=== PATIENT | female | born 1940 | race Caucasian/White ===

== ENCOUNTER 2025-03-25 16:44 | Emergency (ER) | payer MEDICARE, SELFPAY ==
[2025-03-25 16:46] VITALS: TEMP 36.9; BMI 34.0
[2025-03-25 16:57] VITALS: BP 127/67; PULSE 120; RESP 18; O2SAT 96
--- NOTE | 2025-03-25 17:16 | RAD_ITS ---
PROCEDURE: ABD DECUB AND/OR ERECT(PORTABLE 03/25/2025 REASON FOR EXAM: CONSTIPATION TECHNIQUE: ABD DECUB AND/OR ERECT(PORTABLE COMPARISON: December 08, 2024 CT FINDINGS: Bowel gas: Nonobstructing nonspecific bowel-gas pattern. [id number] fecal load consistent with constipation. Calcifications: No suspicious calcifications. Bones: Degenerative changes of the lumbar spine. Kyphoplasties cement in L3. Other: Cholecystectomy clips in the gallbladder fossa. Pronounced left convexity scoliosis of the thoracolumbar spine RAD/Abd Decub and/or Erect(Portabl IMPRESSION: Possible fecal impaction in the rectum Reading [facility]
--- NOTE | 2025-03-25 17:17 | EDS_ITS ---
HPI HPI - GI History of Present Illness Chief Complaint: Constipation Narrative Narrative: 84-year-old female presents from [facility] with constipation for the last week or longer. She relates history that she is bed ridden and is taking oxycodone for 2 fractured vertebrae. She usually sits on the bedpan or has bowel movements in her briefs. She states for the last week she has not had a bowel movement or maybe only small hard stool. She is taking oxycodone for pain. Over the last few days she is experienced nausea and vomiting as well. No fevers or chills. She states she feels like she has to have a bowel movement and when she has her the pain it feels like she has to have a bowel movement but is unable to do so. [facility] Medical History History of fractured vertebra Polio Home Medications ?Medication ?Instructions ?Recorded ?Last Taken ?Type B Complete 1 tab PO DAILY 03/10/14 Unkn own History Prednisol 1% 1 drp DAILY PRN 03/10/14 Unk nown History calcium 600 mg (as 1 ea PO BID 03/10/14 Unknown History carbonate)-vitamin D3 10 mcg (400 unit) tablet (Calcium 600 + D(3)) ciclopirox 0.77 % topical gel g TP BID 03/10/14 Unknow n History (Loprox) ergocalciferol (vitamin D2) 50 mcg 50,000 unit PO QWEE K 03/10/14 Unknown History (2,000 unit) tablet fluoxetine 20 mg tablet (Sarafem) 20 mg PO DAILY 03/10 Unknown History metronidazole 0.75 % (37.5 mg/5 0 g vaginal BID Unknown History gram) vaginal gel (Vandazole) nystatin-triamcinolone 100,000 0 g TP BID 03/10/14 Unk nown History unit/g-0.1 % topical cream omeprazole 20 mg capsule,delayed 20 mg PO DAILY Unknown History release oxybutynin chloride 5 mg tablet 10 mg PO DAILY 4 Unknown History timolol maleate 0.5 % eye drops 1 drp DAILY 03/10/14 U nknown History travoprost 0.004 % eye drops 1 drp DAILY 03/10/14 Unkn own History (Travatan Z) oxycodone 5 mg tablet 5 mg PO BID pain 30 days #60 tabs 03/01/25 Unknown Rx oxycodone 5 mg tablet 5 mg PO Q6H PRN pain 30 days #120 03/07/25 Unknown Rx tabs Allergy/AdvReac Type Severity Reaction Status Date / Time cephalexin monohydrate (From AdvReac Diarrhea Verified 03/10/14 18:10 Keflex) BLOOD THINNERS AdvReac Other Uncoded 03/10/14 18:10 Social History Smoking Status: Unknown if ever smoked ROS ROS ED ROS Narrative Review of systems positive for diffuse abdominal pain and constipation. Few days ago had nausea and vomiting. No fevers or chills. There are no exacerbating or alleviating factors. EXAM Physical Exam Narrative Exam Narrative: Afebrile. Vital signs noted. Nontoxic-appearing. Cardiovascular examination reveals regular rate and rhythm with intermittent tachycardia. Lungs clear to auscultation bilaterally. Abdomen soft with minimal diffuse tenderness with positive bowel sounds. 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 Const Vital Signs: 03/25/25 16:46 03/25/25 16:57 Temperature 98.5 F Temperature Source Oral Pulse Rate 120 H Respiratory Rate 18 Blood Pressure 127/67 H Blood Pressure Mean 87 Pulse Ox 96 Oxygen Delivery Method Room Air MDM MDM MDM Narrative Medical decision making narrative: Differential diagnosis includes but not limited to constipation versus fecal impaction versus bowel obstruction. I have lower suspicion for bowel obstruction. She still feels as if she has to have a bowel movement. X-rays will be obtained and chaperoned rectal examination performed. On my independent interpretation of the x-rays of the abdomen, there is a nonobstructive pattern and probable fecal impaction. I reviewed the radiology report which confirms my independent interpretation. Chaperoned rectal examination did show hard stool which was removed with digital disimpaction. Patient tolerated procedure well. The hard stool was evacuated from the rectum is much as the fingers length would allow. At this point in time, she states she is already on senna but takes MiraLAX sporadically. She was told to take it more consistently at least once to twice a day. I feel she can be discharged to follow-up. Return instructions to the emergency department were reviewed. Disposition is discharged home in stable condition. History & Record Review Discussion w/independent historian: Patient Radiography Diagnostic Testing: Clinical Impression(s) from Imaging Studies Abdomen X-Ray 03/25/25 17:16 IMPRESSION: Possible fecal impaction in the rectum Reading Location: [facility] Discharge Plan Triage Chief Complaint: Constipation ED Provider: Vicente Leon Dx/Rx/DC Orders Clinical Impression: Fecal impaction in rectum, Constipation Instructions: ED Constipation (Adult), ED Fecal Impaction, Treated Prescriptions: No Action B Complete 1 tab PO DAILY metronidazole [Vandazole] 70 GM gel 0 g vaginal BID travoprost [Travatan Z] 1 DROP bottle 1 drp Left Eye DAILY fluoxetine [Sarafem] 20 MG tablet 20 mg PO DAILY nystatin-triamcinolone 30 GM cream 0 g TP BID omeprazole 20 MG capsule 20 mg PO DAILY timolol maleate 1 DROP drops 1 drp Left Eye DAILY oxybutynin chloride 5 MG tablet 10 mg PO DAILY ciclopirox [Loprox] 100 GM gel TP BID calcium carbonate-vitamin D3 [Calcium 600 + D(3)] 1 EACH tablet 1 ea PO BID ergocalciferol (vitamin D2) 2,000 UNIT tablet 50,000 unit PO QWEEK Prednisol 1% 1 drp Left Eye DAILY PRN oxycodone 5 mg tablet 5 mg PO BID 30 Days Qty: 60 0RF Rx Instructions: 8am and 9pm. oxycodone 5 mg tablet 5 mg PO Q6H PRN (Reason: pain) 30 Days Qty: 120 0RF Primary Care Provider: Chey Kumar Referrals: Chey Kumar MD [Primary Care Provider] - 1-2 Days if not improving Activity Restrictions/Additional Instructions: Take MiraLAX consistently once or twice a day. Continue your senna. Print Language: Belarusian Disposition Disposition: Home, Self Care
--- OUTSIDE RECORDS SUMMARY | 2025-03-25 18:50 | XMS RPT_ITS | CCD ---
Author Organization [facility] Care Team Providers Care Crimp Setter Name Role Phone PROVIDER, UNKNOWN Unavailable Unavailable PROVIDER, UNKNOWN Unavailable Unavailable PROVIDER, UNKNOWN Unavailable Unavailable PROVIDER, UNKNOWN Unavailable Unavailable PROVIDER, UNKNOWN Unavailable Unavailable PROVIDER, UNKNOWN Unavailable Unavailable PROVIDER, UNKNOWN Unavailable Unavailable PROVIDER, UNKNOWN Unavailable Unavailable PROVIDER, UNKNOWN Unavailable Unavailable BYO MARBELLA Admitting Unavailable MAEVE BRUNSONZOOR Attending Unavailable Jaime Guy Primary Care Unavailable Sahra Guy MD Primary Care Provider Sahra Guy MD Primary Care Provider Sahra Guy MD Primary Care Provider Sahra Guy MD Primary Care Provider Sahra Guy MD Primary Care Provider Sahra Guy Primary Care Provider Mel PATTON.ANTONY, Leonid Unavailable SAHRA GUY Attending Unavailable SAHRA GUY Referring Unavailable SAHRA GUY Primary Care Unavailable MARLEYLEONID APPIAH Attending Unavailable MARLEYLEONID APPIAH Referring Unavailable SAHRA GUY Primary Care Unavailable SAHRA GUY Primary Care Unavailable MORIAH LOPEZ Attending Unavailable THUESTAShyanne, GEORGINA A Admitting Unavailable DIANE WILSON Attending Unavailable ZAYNAB VALENCIA Admitting Unavailable SAHRA GUY Primary Care Unavailable Chey Kumar MD Attending Provider Unavailurban Kumar MD, Dr. Guerrier Attending Provider Valerie GUTIERREZ-Roxanne Singh Attending Provider Oleghe MD, Efewongbe Referring Provider Unavaila ble Oleghe OLS, Efewongbe Attending Unavailabl e Oleghe OLS, Efewongbe Attending Unavailabl e Oleghe OLS, Efewongbe Attending Unavailabl e Oleghe OLS, Efewongbe Attending Unavailabl e Oleghe OLS, Efewongbe Attending Unavailabl e Oleghe OLS, Efewongbe Attending Unavailabl e Oleghe OLS, Efewongbe Attending Unavailabl e Oleghe OLS, Efewongbe Referring Unavailabl e Oleghe OLS, Efewongbe Attending Unavailabl e Oleghe OLS, Efewongbe Attending Unavailabl e Oleghe OLS, Efewongbe Attending Unavailabl e Tickton LENS GRINDING MACHINE OPERATOR, Roxanne Attending Unavailable Oleghe OLS, Efewongbe Referring Unavailabl e Oleghe OLS, Efewongbe Attending Unavailabl e Oleghe OLS, Efewongbe Attending Unavailabl e Oleghe OLS, Efewongbe Attending Unavailabl e Oleghe OLS, Efewongbe Attending Unavailabl e Oleghe, Efewongbe Attending Unavailable Tickton LENS GRINDING MACHINE OPERATOR, Roxanne Attending Unavailable Tickton LENS GRINDING MACHINE OPERATOR, Roxanne Attending Unavailable Oleghe, Efcarmenongbe Attending Unavailable Tickton LENS GRINDING MACHINE OPERATOR, Roxanne Attending Unavailable Tickton LENS GRINDING MACHINE OPERATOR, Roxanne Attending Unavailable Tickton LENS GRINDING MACHINE OPERATOR, Roxanne Attending Unavailable SAHRA GUY Primary Care Unavailable SAHRA GUY Attending Unavailable SAHRA GUY Attending Unavailable SAHRA GUY Primary Care Unavailable LEONID LEAL Attending Unavailable SAHRA GUY Primary Care Unavailable SAHRA GUY Primary Care Unavailable NARCISO SHERMAN Attending Unavailable Allergies Allergy Classification Reported Allergen(s) Allergy Type Date of Onset Reaction(s) Facility (20 sources) Cephalexin; Translations: [CEPHALEXIN] Drug Allergy 5 Diarrhea, GI Upset [facility] Repository (20 sources) Ibuprofen; Translations: [IBUPROFEN] Drug Allergy 5 Intolerance [facility] Repository (20 sources) rofecoxib; Translations: [ROFECOXIB] Drug Allergy 5 Intolerance [facility] Repository (20 sources) Salicylic Acid; Translations: [SALICYLATES] Drug Allergy 5 Intolerance [facility] Repository (1 source) OTHER; Translations: [OTHER] Propensity to adverse reactions (disorder) [facility] Repository (20 sources) OMEGA-3 FATTY ACIDS-VITAMIN E; Translations: [OMEGA-3 FATTY ACIDS-VITAMIN E] Propensity to adverse reactions (disorder) 7 Intolerance [facility] Repository (20 sources) novacaine [Other] Propensity to adverse reactions 5 Intolerance [facility] (20 sources) Procaine; Translations: [PROCAINE HCL] Drug Allergy 4 Intolerance [facility] Work Phone: (7 sources) NSAIDs; Translations: [NSAIDS (NON-STEROIDAL ANTI-INFLAMMATO RY DRUG)] Propensity to adverse reactions to drug 5 Unknown [facility] (9 sources) Cephalexin; Translations: [cephalexin monohydrate] Drug Allergy 4 Diarrhea [facility] (9 sources) BLOOD THINNERS; Translations: [BLOOD THINNERS] Propensity to adverse reactions 4 Other [facility] Comment on above: BLOOD FROM EYE Medications Current Medications Medication Drug Class(es) Dates Sig (Normalized) Sig (Original) amLODIPine 5 mg oral tablet (6 sources) Dihydropyridine Calcium Channel Susan Start: 12-10-2024 take 1 tablet by mouth twice daily amLODIPine (NORVASC) 5 mg tablet Take 1 tablet by mouth two times a day. 60 tablet 12/10/2024 Active atropine sulfate 10 mg/ml ophthalmic solution (20 sources) Anticholinergic, Cholinergic Muscarinic Antagonist Start: 01-12-2023 take 1 drop(s) into the eye(s) twice daily atropine 1 % ophthalmic solution Use 1 drop in the left eye two times a day. 01/12/2023 Active Start: 01-12-2023 atropine 1 % o phthalmic solution 01/12/2023 Active B Complete (8 sources) Start: 03-10-2014 B Complete Act marlena 1 {tbl} PO DAILY March 10, 2014 12:00am Biotin (20 sources) take 1 capsule by mo uth once daily BIOTIN ORAL Take 1 capsule by mouth once daily. Suspended take 1 capsule by mouth once gabriel ly BIOTIN ORAL Take 1 capsule by mouth once daily. Active take 1 capsule by mouth once gabriel ly BIOTIN ORAL Take 1 capsule by mouth once daily. 0 Active Comment on above: Take 1 capsule by [facility] once daily. brimonidine tartrate 2 mg/ml ophthalmic solution (20 sources) alpha-Adrenergic Agonist Start: 09-19-2023 take 1 drop(s) into the eye(s) twice daily brimonidine (ALPHAGAN) 0.2 % ophthalmic solution Use 1 drop in the left eye two times a day. 09/19/2023 Active Start: 09-19-2023 brimonidine (A LPHAGAN P) 0.1 % drop 09/19/2023 Active Calcium Carbonate (20 sources) calcium carbonat e (CALCIUM 500 ORAL) Take by mouth every other day. Suspended calcium carbonat e (CALCIUM 500 ORAL) Take by mouth every other day. Active calcium carbonat e (CALCIUM 500 ORAL) Take by mouth every other day. 0 Active Comment on above: Take by mouth every other day. calcium carbonate 1500 mg / cholecalciferol 0.01 mg oral tablet (8 sources) Vitamin D Start: 4 Calcium Carbonate-Vitamin D3 (Calcium 600 + Vit D Tablet) 1 EACH tablet Active 1 NMA PO TWICE A DAY March 10, 2014 12:00am cholecalciferol 0.05 mg oral capsule (6 sources) Vitamin D take 1 capsule by mouth once daily Cholecalciferol, Vitamin D3, (VITAMIN D-3) 50 mcg (2,000 unit) cap Take 1 capsule by mouth once daily. Active ciclopirox 0.0077 mg/mg topical gel (8 sources) Start: 4 Ciclopirox (Loprox) 100 GM gel Active g TP TWICE A DAY March 10, 2014 12:00am COMPRESSION HOSIERY KNEE LENGTH, AD, 18-30 MMHG (20 sources) Start: 2 End: 3 COMPRESSION HOSIERY KNEE LENGTH, AD, 18-30 MMHG once daily. Right side 1 Each 0 09/19/2021 09/19/2022 Active Comment on above: once daily. Right si de CPAP (20 sources) Start: 8 CPAP Indications: Obstructive sleep apnea on CPAP BipaP @ 14/9 cm of water with humidification, removable water dispenser (for cleaning) . Mask (small/ per patient preference) , filters, tubing, humidifier and lifetime supplies. (G47.33, Z99.89) Obstructive sleep apnea on CPAP 1 Device 03/03/2018 Suspended Start: 03-03-2018 CPAP Indicatio ns: Obstructive sleep apnea on CPAP BipaP @ 14/9 cm of water with humidification, removable water dispenser (for cleaning) . Mask (small/ per patient preference) , filters, tubing, humidifier and lifetime supplies. (G47.33, Z99.89) Obstructive sleep apnea on CPAP 1 Device 03/03/2018 Active Start: 03-03-2018 CPAP Indicatio ns: Obstructive sleep apnea on CPAP BipaP @ 14/9 cm of water with humidification, removable water dispenser (for cleaning) . Mask (small/ per patient preference) , filters, tubing, humidifier and lifetime supplies. (G47.33, Z99.89) Obstructive sleep apnea on CPAP 1 Device 0 03/03/2018 Active Comment on above: BipaP @ 14/9 cm of w ater with humidification, removable water dispenser (for cleaning) . Mask (small/ per patient preference) , filters, tubing, humidifier and lifetime supplies. (G47.33, Z99.89) Obstructive sleep apnea on CPAP cyclobenzaprine hydrochloride 5 mg oral tablet (7 sources) Muscle Relaxant Start: 025 take 1 tablet by mouth every twelve hours as needed cyclobenzaprine (FLEXERIL) 5 mg tablet Take 1 tablet by mouth two times a day as needed. 15 tablet 12/10/2024 Active cyclopentolate hydrochloride 10 mg/ml ophthalmic solution (20 sources) Start: 017 take 1 drop(s) into the eye(s) twice daily cyclopentolate (CYCLOGYL) 1 % ophthalmic solution Use 1 Drop in the left eye two times a day. 07/31/2017 Active Start: 07-31-2017 take 1 drop(s) into the eye(s) twice daily cyclopentolate (CYCLOGYL) 1 % ophthalmic solution Use 1 Drop in the left eye twice daily. 0 07/31/2017 Active Comment on above: Use 1 Drop in the le ft eye twice daily. dextran 70 1 mg/ml / hypromellose 3 mg/ml ophthalmic solution (6 sources) Plasma Volume Prison Keeper dextran 70-hypromellose (ARTIFICIAL TEARS,[id number],) 0.1-0.3 % ophthalmic solution Use 1 drop in both eyes two times a day. Active docusate sodium 50 mg / sennosides, intermediate 8.6 mg oral tablet (6 sources) Start: 12-20-19 End: 03-19-20 take 2 tablets by mouth twice daily senna-docusate (SENNA-S) 8.6-50 mg per tablet Take 2 tablets by mouth two times a day. 360 tablet 12/19/2024 03/19/2025 Active ergocalciferol 0.05 mg oral tablet (8 sources) Provitamin D2 Compound Start: 03-10-20 Ergocalciferol (Vitamin D2) 2,000 UNIT tablet Active 52825 U PO EVERY WEEK March 10, 2014 12:00am ergocalciferol, vitamin D2, (VITAMIN D2 ORAL) (20 sources) take 1 tablet by mouth once daily ergocalciferol, vitamin D2, (VITAMIN D2 ORAL) Take 1 tablet by mouth once daily. Suspended take 1 tablet by mouth once nicole y ergocalciferol, vitamin D2, (VITAMIN D2 ORAL) Take 1 tablet by mouth once daily. Active take 1 tablet by mouth once nicole y ergocalciferol, vitamin D2, (VITAMIN D2 ORAL) Take 1 tablet by mouth once daily. 0 Active Comment on above: Take 1 tablet by nemesio th once daily. esomeprazole 40 mg delayed release oral capsule (20 sources) Proton Pump Inhibitor Start: 08-23-2024 esomeprazole (NEXIUM) 40 mg capsule TAKE 1 CAPSULE DAILY BEFOREBREAKFAST. 1/2 HOUR BEFORE A MEAL 90 capsule 2 08/23/2024 Active Start: 07-20-2023 End: 07-05-2024 esomeprazole (NEXIUM) 40 mg capsule TAKE 1 CAPSULE DAILY BEFOREBREAKFAST. 1/2 HOUR BEFORE A MEAL 90 capsule 2 08/23/2024 Active Start: 05-30-2021 End: 08-05-2022 esomeprazole (NEXIUM) 40 mg capsule TAKE 1 CAPSULE DAILY BEFOREBREAKFAST. 1/2 HOUR BEFORE A MEAL 90 capsule 3 08/05/2022 Active Comment on above: TAKE 1 CAPSULE DAILY BEFOREBREAKFAST 1/2 HOUR BEFORE AMEAL TAKE 1 CAPSULE DAILY BEFOREBREAKFAST. 1/2 HOUR BEFORE A MEAL ferrous sulfate 325 mg oral tablet (20 sources) take 1 tablet by mouth every other day ferrous sulfate 325 mg (65 mg iron) tablet Take 325 mg by mouth every other day. Active take 1 tablet by nemesio th once daily at breakfast ferrous sulfate 325 mg (65 mg iron) tabl et Take 325 mg by mouth daily with breakfast. 0 Active Comment on above: Take 325 mg by mouth daily with breakfast. Take 325 mg by mouth every other day. FLUoxetine 20 mg oral tablet (8 sources) Serotonin Reuptake Inhibitor Start: 4 take 1 tablet by mouth once daily Fluoxetine (Sarafem) 20 MG tablet Active 20 mg PO DAILY March 10, 2014 12:00am [id number]- C-lety-bosw (OSTEO BI-FLEX TRIPLE STRENGTH) 750 mg-644 mg- 30 mg-1 mg tab (6 sources) take 1 tablet by mouth once daily [id number]- C-lety-bosw (OSTEO BI-FLEX TRIPLE STRENGTH) 750 mg-644 mg- 30 mg-1 mg tab Take 1 tablet by mouth once daily. Active lactulose 667 mg/ml oral solution (1 source) Osmotic Laxative Start: 5 End: 5 take 60 mL by mouth every four hours lactulose 20 gram/30 mL solution Take 60 mL by mouth every 4 hours while awake. 7200 mL 12/19/2024 01/18/2025 Active lidocaine 0.05 mg/mg medicated patch (18 sources) Antiarrhythmic, Amide Local Anesthetic Start: 5 apply 1 dose transdermal route once daily lidocaine (LIDODERM) 5 % Indications: Back pain, unspecified back location, unspecified back pain laterality, unspecified chronicity Apply 1 patch as directed once daily. REMOVE AFTER 12 HOURS. 30 patch 2 12/07/2024 Active Start: 12-06-2024 End: 12-07-2024 apply 60 doses transdermal route once daily lidocaine HCL 4 % ptmd Apply to painful area once daily, remove after 12 hours 60 patch 1 12/06/2024 12/07/2024 Discontinued (Not on Formulary) lidocaine (ASPER FLEX, LIDOCAINE,) 4 % patch Apply 1 application as directed once daily. Apply to lower back, on for twelve hours, off for twelve hours. Active loratadine 10 mg oral tablet (20 sources) take 10 mg by mouth once daily loratadine (CLARITIN ORAL) Take 10 mg by mouth once daily. Active loratadine (CLAR ITIN ORAL) Take by mouth. Suspended loratadine (CLAR ITIN ORAL) Take by mouth. Active loratadine (CLAR ITIN ORAL) Take by mouth. 0 Active metFORMIN hydrochloride 500 mg oral tablet (20 sources) Biguanide Start: 03-10-2023 End: 08-23-2024 take 1 tablet by mouth once daily at breakfast metFORMIN (GLUCOPHAGE) 500 mg tablet Indications: Obesity, Class III, 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) , Hyperglycemia Take 1 tablet by mouth daily with breakfast. 90 tablet 3 08/23/2024 Active Comment on above: Take 1 tablet by nemesio th daily with breakfast. metroNIDAZOLE 0.0075 mg/mg topical gel (20 sources) Nitroimidazole Antimicrobial Start: 07-30-2021 End: 01-25-2024 metroNIDAZOLE (METROGEL) 0.75 % Topical Gel APPLY 1 APPLICATION TO AFFECTED AREA ONCE DAILY TOFACE 135 g 3 01/25/2024 Active Start: 03-10-2014 Metronidazole (Metrogel Vaginal) 70 GM gel Active 0 g VAGINAL TWICE A DAY March 10, 2014 12:00am Comment on above: APPLY 1 APPLICATION TO AFFECTED AREA ONCE DAILY TOFACE miconazole nitrate 20 mg/ml vaginal cream (20 sources) Azole Antifungal Start: 11-01-2019 miconazole (MONISTAT 7) 2 % vaginal cream Use 1 Applicator vaginally daily at bedtime. 45 g 1 11/01/2019 Active Comment on above: Use 1 Applicator vag inally daily at bedtime. nirmatrelvir tablet 300 mg (150 mg x 2) and ritonavir tablet 100 mg in a dose pack (PAXLOVID) (1 source) Start: 06-12-2022 End: 06-17-2022 nirmatrelvir tablet 300 mg (150 mg x 2) and ritonavir tablet 100 mg in a dose pack (PAXLOVID) Indications: COVID-19 Administer TWO pink nirmatrelvir 150 mg tablets and ONE white ritonavir 100 mg tablet for a total of three tablets twice daily. 30 tablet 0 06/12/2022 06/17/2022 Active Comment on above: Administer TWO pink nirmatrelvir 150 mg tablets and ONE white ritonavir 100 mg tablet for a total of three tablets twice daily. nystatin 100 unt/mg / triamcinolone acetonide 0.001 mg/mg topical ointment (20 sources) Polyene Antifungal, Corticosteroid Start: 01-07-2021 End: 05-08-2023 nystatin-triamcinolone (MYCOLOG) ointment Apply sparingly to perineum twice daily for irritation/infection. 30 g 1 05/08/2023 Active Start: 03-10-2014 Nystatin-Triam cinolone 30 GM cream Active 0 g TP TWICE A DAY March 10, 2014 12:00am Comment on above: Apply sparingly to p erineum twice daily for irritation/infection. omeprazole 20 mg delayed release oral capsule (8 sources) Proton Pump Inhibitor Start: 014 take 1 capsule by mouth once daily Omeprazole 20 MG capsule Active 20 mg PO DAILY March 10, 2014 12:00am oxyCODONE hydrochloride 5 mg oral tablet (20 sources) Opioid Agonist Start: 025 take 1 tablet by mouth twice daily Oxycodone 5 mg tablet Active 5 mg PO TWICE A DAY 60 30 0 March 01, 2025 March 30, 2025 12:00am Chronic pain Other chronic pain pain 8am and 9pm. Start: 02-21-2025 End: 03-07-2025 take 1 tablet by mouth every six hours as needed for pain Oxycodone 5 mg tablet Active 5 mg PO EVERY 6 HOURS as needed for pain 120 30 0 March 07, 2025 April 05, 2025 12:00am Chronic pain Other chronic pain Start: 12-19-2024 End: 02-17-2025 take 1 tablet by mouth every six hours as needed for pain Oxycodone 5 mg tablet Discontinued 5 mg PO EVERY 6 HOURS as needed for pain 60 30 0 January 18, 2025 February 16, 2025 12:00am February 17, 2025 12:07am Post poliomyelitis syndrome Postpolio syndrome pantoprazole 40 mg delayed release oral tablet (6 sources) Proton Pump Inhibitor take 1 tablet by mouth once daily pantoprazole DR (PROTONIX) 40 mg tablet Take 40 mg by mouth once daily. Active polyethylene glycol 3350 00608 mg powder for oral solution (6 sources) Osmotic Laxative Start: End: polyethylene glycol 3350 17 gram packet Take 1 packet by mouth two times a day. Dissolve dose in 4 - 8 ounces of liquid and take as directed. 60 packet 2 12/19/2024 03/19/2025 Active Polyvinyl Alcohol (20 sources) polyvinyl alcoho l (LIQUID TEARS OPHTHALMIC) Use in eyes. Suspended polyvinyl alcoho l (LIQUID TEARS OPHTHALMIC) Use in eyes. Active polyvinyl alcoho l (LIQUID TEARS OPHTHALMIC) Use in eyes. 0 Active Comment on above: Use in eyes. prednisoLONE (20 sources) Corticosteroid Start: 03-10-2014 Prednisol 1% A ctive 1 NMA Left Eye DAILY NEEDED March 10, 2014 12:00am take 1 drop(s) into the eye(s) every twelve hours as needed prednisoLONE acetate (PRED FORTE, ECONOP RED PLUS) 1 % ophthalmic suspension Use 1 Drop in the left eye twice daily as needed. Active prednisoLONE hector kent (PRED FORTE, ECONOPRED PLUS) 1 % ophthalmic suspension Use 1 Drop in the left eye twice daily as needed. 0 Active Comment on above: Use 1 Drop in the le ft eye twice daily as needed. Propylene glycol (7 sources) take 1 drop(s) into the eye(s) twice daily propylene glycol (SYSTANE COMPLETE OPHTHALMIC) Use 1 drop in eyes two times a day. Active rutin/hesp/bioflav/C/h [id number] (BIOFLEX ORAL) (20 sources) take 1 capsule by mouth twice daily rutin/hesp/bioflav/C/ [id number] (BIOFLEX ORAL) Take 1 capsule by mouth twice daily. Suspended take 1 capsule by mo ut twice daily rutin/hesp/bioflav/C/[id number] (BIOFLEX ORAL) Take 1 capsule by mouth twice daily. Active take 1 capsule by mo uth twice daily rutin/hesp/bioflav/C/[id number] (BIOFLEX ORAL) Take 1 capsule by mouth twice daily. 0 Active Comment on above: Take 1 capsule by mo ut twice daily. sulfacetamide sodium 100 mg/ml ophthalmic solution (20 sources) Sulfonamide Antibacterial Start: 04-04-2022 sulfacetamide (BLEPH-10) 10 % ophthalmic solution Use 1 Drop in both eyes four times daily. INSIDE LOWER EYELID(S) 1-4 TIMES DAILY AND AT BEDTIME 5 mL 04/04/2022 Active Start: 04-03-2022 End: 04-04-2022 sulfacetamide (BLEPH-10) 10 % ophthalmic solution Use 1 Drop in both eyes four times daily. INSIDE LOWER EYELID(S) 1-4 TIMES DAILY AND AT BEDTIME 5 mL 0 04/04/2022 Active Comment on above: Use 1 Drop in both e yes four times daily. INSIDE LOWER EYELID(S) 1-4 TIMES DAILY AND AT BEDTIME sulfamethoxazole 800 mg / trimethoprim 160 mg oral tablet (3 sources) Dihydrofolate Reductase Inhibitor Antibacterial, Sulfonamide Antimicrobial Start: take 1 tablet by mouth twice daily sulfamethoxazole-tr imethoprim (BACTRIM DS) 800-160 mg per tablet Take 1 tablet by mouth two times a day. 14 tablet 02/09/2025 Active tamsulosin hydrochloride 0.4 mg oral capsule (7 sources) alpha-Adrenergic Susan Start: End: take 1 capsule by mouth once daily at bedtime tamsulosin (FLOMAX) 0.4 mg Take 1 capsule by mouth daily at bedtime. 90 capsule 12/19/2024 Active therapeutic multivitamin w/ iron (THERAGRAN-M) 9 mg iron-400 mcg tablet (20 sources) therapeutic multivitamin w/ iron (THERAGRAN-M) 9 mg iron-400 mcg tablet Take 1 tablet by mouth once daily. Suspended therapeutic mult ivitamin w/ iron (THERAGRAN-M) 9 mg iron-400 mcg tablet Take 1 tablet by mouth once daily. Active therapeutic mult ivitamin w/ iron (THERAGRAN-M) 9 mg iron-400 mcg tablet Take 1 tablet by mouth once daily. 0 Active Comment on above: Take 1 tablet by nemesio once daily. preservative-free timolol 5 mg/ml ophthalmic solution (20 sources) beta-Adrenergic Susan Start: 03-10-2014 Timolol Maleate 1 DROP drops Active 1 NMA Left Eye DAILY March 10, 2014 12:00am timolol maleate (TIMOPTIC) 0.5 % ophthalmic solution Use 1 Drop in the left eye every morning. Active timolol maleate (TIMOPTIC) 0.5 % ophthalmic solution Use 1 Drop in the left eye every morning. 0 Active Comment on above: Use 1 Drop in the le ft eye every morning. traMADol hydrochloride 50 mg oral tablet (1 source) Opioid Agonist Start: 02 End: 10-04-19 take 1 tablet by mouth every four hours as needed for pain traMADol (ULTRAM) 50 mg tablet Indications: Acute left-sided low back pain, unspecified whether sciatica present , Left hip pain Take 1 tablet by mouth every 4 hours as needed for pain for up to 7 days. 28 tablet 09/26/2024 10/03/2024 Active travoprost 0.04 mg/ml ophthalmic solution (8 sources) Prostaglandin Analog Start: 03-10-20 take 1 drop(s) into the eye(s) once daily Travoprost (Travatan 0.004% Eye Drop) 1 DROP bottle Active 1 NMA Left Eye DAILY March 10, 2014 12:00am valACYclovir 1000 mg oral tablet (5 sources) Herpesvirus Nucleoside Analog DNA Polymerase Inhibitor, Herpes Simplex Virus Nucleoside Analog DNA Polymerase Inhibitor, Herpes Zoster Virus Nucleoside Analog DNA Polymerase Inhibitor Start: 09-16-19 End: 09-23-19 take 1 tablet by mouth three times daily valACYclovir (VALTREX) 1 gram tablet Take 1 tablet by mouth three times a day for 7 days. 21 tablet 09/16/2024 09/23/2024 Active Start: 09-30-2022 End: 10-07-2022 take 1 tablet by mouth three times daily valACYclovir (VALTREX) 1 gram Indications: Neck pain, chronic Take 1 tablet by mouth three times daily for 7 days. 21 tablet 0 09/30/2022 10/07/2022 Active Comment on above: Take 1 tablet by nemesio th three times daily for 7 days. Vitamin B Complex (20 sources) take 1 tablet by mouth once daily vitamin B complex (B COMPLEX VITAMINS ORAL) Take 1 tablet by mouth once daily. Suspended take 1 tablet by mouth once nicole y vitamin B complex (B COMPLEX VITAMINS ORAL) Take 1 tablet by mouth once daily. Active take 1 tablet by mouth once nicole y vitamin B complex (B COMPLEX VITAMINS ORAL) Take 1 tablet by mouth once daily. 0 Active Comment on above: Take 1 tablet by nemesio th once daily. Completed/Discontinued Medications Medication Drug Class(es) Dates Sig (Normalized) Sig (Original) gabapentin 100 mg oral capsule (4 sources) Anti-epileptic Agent Start: 08-11-2024 End: 09-10-2024 take 1 capsule by mouth once daily at bedtime gabapentin (NEURONTIN) 100 mg capsule Indications: Acute left-sided low back pain with left-sided sciatica Take 1 capsule by mouth daily at bedtime for 30 days. 30 capsule 08/11/2024 08/23/2024 Discontinued 24 hr oxybutynin chloride 10 mg extended release oral tablet (20 sources) Cholinergic Muscarinic Antagonist Start: 01-19-2023 End: 08-23-2024 take 1 tablet by mouth once daily oxybutynin ER (DITROPAN XL) 10 mg 24 hr tablet Take 1 tablet by mouth once daily. 90 tablet 3 08/23/2024 Suspended Start: 04-08-2022 take 1 tablet by nemesio th once daily oxybutynin ER (DITROPAN XL) 15 mg 24 hr Extended Rel Tab Take 1 tablet by mouth once daily. 90 tablet 3 04/08/2022 Active Start: 07-17-2021 take 1 tablet by nemesio th once daily oxybutynin ER (DITROPAN XL) 10 mg 24 hr tablet TAKE 1 TABLET BY MOUTH EVERY DAY 30 tablet 11 08/20/2021 Active Start: 03-10-2014 take 2 tablets by mo uth once daily Oxybutynin Chloride 5 MG tablet Active 10 mg PO DAILY March 10, 2014 12:00am Comment on above: Take 1 tablet by nemesio th once daily. TAKE 1 TABLET BY NEMESIO TH EVERY DAY take 1 tablet once d aily Problems Active Problems Problem Classification Problem Date Documented Da te Episodic/Chronic Adjustment disorders (20 sources) Adjustment disorder with depressed mood; Translations: [Adjustment disorder with depressed mood] Onset: 6 12-23-2005 Chronic Deficiency and other anemia (2 sources) Iron deficiency anemia, unspecified; Translations: [Iron deficiency anemia, unspecified] Onset: 8 Episodic Diabetes mellitus without complication (6 sources) Hyperglycemia; Translations: [Hyperglycemia, unspecified] Onset: 5 02-23-2024 Episodic Disorders of lipid metabolism (6 sources) Mixed hyperlipidemia; Translations: [Mixed hyperlipidemia] Onset: 5 02-23-2024 Chronic E Codes: Other specified and classifiable (1 source) Other accident with wheelchair (powered), initial encounter; Translations: [Accidental fall from wheelchair] 09-16-2024 Episodic E Codes: Place of occurrence (1 source) Unspecified place in jail as the place of occurrence of the external cause; Translations: [Fall at jail, subsequent encounter] Onset: 5 Episodic Esophageal disorders (20 sources) Gastroesophageal reflux disease; Translations: [Gastro-esophageal reflux disease without esophagitis] Onset: 5 08-25-2018 Chronic Esophageal disorders (2 sources) Esophageal disorders Onset: 9 Essential hypertension (9 sources) Essential hypertension; Translations: [Essential (primary) hypertension] Onset: 5 08-23-2024 Chronic Fluid and electrolyte disorders (1 source) Dehydration; Translations: [Dehydration] Onset: 5 Episodic Genitourinary symptoms and ill-defined conditions (20 sources) Incontinence; Translations: [Unspecified urinary incontinence] Onset: 2 07-19-2012 Chronic Genitourinary symptoms and ill-defined conditions (5 sources) Other retention of urine; Translations: [Increased frequency of urination] Onset: 5 02-07-2025 Episodic Glaucoma (2 sources) Glaucoma of left eye; Translations: [Unspecified glaucoma] Chronic Infective arthritis and osteomyelitis (except that caused by tuberculosis or sexually transmitted disease) (20 sources) Poliomyelitis osteopathy of multiple sites; 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, multiple sites] Onset: 9 Chronic Mood disorders (8 sources) Depressive disorder; Translations: [Depression] 05-13-2013 Chronic Nutritional deficiencies (20 sources) Vitamin D deficiency; Translations: [Vitamin D deficiency, unspecified] Onset: 0 04-15-2010 Chronic Osteoarthritis (1 source) Degenerative joint disease involving multiple joints; Translations: [Primary generalized (osteo)arthritis] 08-23-2024 Chronic Other bone disease and musculoskeletal deformities (20 sources) Disorder of skeletal system; Translations: [Disorder of bone, unspecified] 03-26-2007 Episodic Other [employer] infection and poliomyelitis (20 sources) Post poliomyelitis syndrome; 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 Other connective tissue disease (2 sources) Falls; Translations: [Repeated falls] 08-23-2024 Episodic Other connective tissue disease (1 source) Hand pain; Translations: [Pain in unspecified hand] 09-16-2024 Episodic Other connective tissue disease (3 sources) Muscle weakness; Translations: [Muscle weakness (generalized)] 10-13-2024 Episodic Other connective tissue disease (1 source) Repeated falls; Translations: [Frequent falls] Onset: 5 Episodic Other diseases of bladder and urethra (2 sources) Overactive bladder; Translations: [Overactive bladder] 03-10-2023 Chronic Other diseases of bladder and urethra (8 sources) Bladder muscle dysfunction - overactive 05-13-2013 Chronic Other fractures (1 source) Wedge compression fracture of unspecified thoracic vertebra, initial encounter for closed fracture; Translations: [Thoracic compression fracture, closed, initial encounter ([facility])] Onset: 5 Episodic Other fractures (1 source) Wedge compression fracture of unspecified thoracic vertebra, subsequent encounter for fracture with routine healing; Translations: [Compression fracture of thoracic vertebra with routine healing, unspecified thoracic vertebral level, subsequent encounter] Onset: 5 Episodic Other gastrointestinal disorders (1 source) Constipation, unspecified; Translations: [Constipation, unspecified constipation type] Onset: 5 Episodic Other hematologic conditions (1 source) H/O: anemia - iron deficient; Translations: [Personal history of diseases of the blood and blood-forming organs and certain disorders involving the immune mechanism] Episodic Other hereditary and degenerative nervous system conditions (20 sources) System disorder of the nervous system; Translations: [Other specified extrapyramidal and movement disorders] Onset: 6 04-14-2006 Chronic Other hereditary and degenerative nervous system conditions (20 sources) Restless legs; Translations: [Restless legs syndrome] 03-26-2007 Chronic Other hereditary and degenerative nervous system conditions (1 source) Restless legs syndrome; Translations: [Restless legs syndrome (RLS)] Onset: 5 Chronic Other inflammatory condition of skin (20 sources) Rosacea; Translations: [Rosacea, unspecified] Onset: 8 10-13-2017 Chronic Other nervous system disorders (1 source) Chronic pain; Translations: [Other chronic pain] 02-21-2025 Chronic Other nervous system disorders (1 source) Abnormal gait; Translations: [Unspecified abnormalities of gait and mobility] 08-23-2024 Episodic Other non-traumatic joint disorders (1 source) Pain in right knee; Translations: [Pain in joint, lower leg] Episodic Other non-traumatic joint disorders (3 sources) Hip pain; Translations: [Pain in left hip] 09-26-2024 Episodic Other nutritional; endocrine; and metabolic disorders (20 sources) Body mass index 40+ - severely obese; Translations: [Morbid (severe) obesity due to excess calories] Onset: 8 Chronic Other nutritional; endocrine; and metabolic disorders (1 source) Severe obesity; Translations: [Morbid (severe) obesity due to excess calories] 12-10-2023 Chronic Other nutritional; endocrine; and metabolic disorders (8 sources) Body mass index 30+ - obesity; Translations: [Body mass index (BMI) 37.0-37.9, adult] Onset: 5 12-08-2024 Chronic Other nutritional; endocrine; and metabolic disorders (7 sources) Obese class I; Translations: [Obesity, Class I, BMI 30-34.9] Onset: 5 12-12-2024 Chronic Other screening for suspected conditions (not mental disorders or infectious disease) (3 sources) Patient encounter status; Translations: [Encounter for screening for lipoid disorders] Onset: 5 Episodic Residual codes; unclassified (20 sources) Obstructive sleep apnea syndrome; Translations: [Obstructive sleep apnea (adult) (pediatric)] Onset: 7 Chronic Sprains and strains (1 source) Strain of unspecified muscle(s) and tendon(s) at lower leg level, unspecified leg, initial encounter; Translations: [Sprains and strains of unspecified site of knee and leg] 10-06-2024 Episodic Unclassified (2 sources) Muscle strain of lower leg, unspecified laterality, initial encounter 10-13-2024 Unclassified (1 source) Acute midline low back pain without sciatica; Translations: [Acute midline low back pain without sciatica] Onset: 5 Urinary tract infections (2 sources) Urinary tract infectious disease; Translations: [Urinary tract infection, site not specified] Onset: 5 02-07-2025 Episodic Past or Other Problems Problem Classification Problem Date Documented Da te Episodic/Chronic Abdominal pain (20 sources) Epigastric pain; Translations: [Epigastric pain] Onset: 08-25-2018 Resolved: 11-24-2018 11-24-2018 Episodic E Codes: Fall (9 sources) Fall in jail; Translations: [Unspecified fall, initial encounter] Onset: 12-08-2024 12-08-2024 Episodic Malaise and fatigue (20 sources) Asthenia; Translations: [Weakness] Onset: 07-29-2018 07-30-2018 Episodic Other acquired deformities (20 sources) Acquired deformity of ankle AND/OR foot; Translations: [Unspecified acquired deformity of unspecified lower leg] Onset: 11-22-2008 08-08-2021 Episodic Other acquired deformities (20 sources) Other specified acquired deformities of unspecified lower leg; Translations: [Other acquired deformities of ankle and foot] Onset: 11-27-2008 11-27-2008 Episodic Other bone disease and musculoskeletal deformities (20 sources) Osteopenia; Translations: [Other specified disorders of bone density and structure, unspecified site] Onset: 04-15-2010 04-15-2010 Episodic Other bone disease and musculoskeletal deformities (2 sources) Disorder of bone; Translations: [Other specified disorders of bone density and structure, unspecified site] Onset: 03-03-2024 03-03-2024 Episodic Other bone disease and musculoskeletal deformities (2 sources) Other specified disorders of bone density and structure, unspecified site; Translations: [Other specified disorders of bone density and structure, unspecified site] Onset: 04-15-2010 Episodic Other connective tissue disease (20 sources) Pain in limb; Translations: [Pain in unspecified limb] Onset: 11-22-2008 Resolved: 12-18-2024 11-22-2008 Episodic Other connective tissue disease (10 sources) Recurrent falls ; Translations: [Repeated falls] Onset: 12-08-2024 10-13-2024 Episodic Other diseases of veins and lymphatics (20 sources) Peripheral venous insufficiency; Translations: [Venous insufficiency (chronic) (peripheral)] Onset: 05-28-2005 05-28-2005 Episodic Other fractures (20 sources) Closed fracture of vertebral column; Translations: [Closed fracture of unspecified part of vertebral column without mention of spinal cord injury] Onset: 03-24-2007 03-24-2007 Episodic Other fractures (20 sources) Fracture of first lumbar vertebra; Translations: [Unspecified fracture of first lumbar vertebra, initial encounter for closed fracture] Onset: 06-02-2014 Resolved: 02-01-2019 02-01-2019 Episodic Other fractures (8 sources) Compression fracture of thoracic spine; Translations: [Wedge compression fracture of unspecified thoracic vertebra, initial encounter for closed fracture] Onset: 12-16-2024 12-16-2024 Episodic Other gastrointestinal disorders (9 sources) Dysphagia; Translations: [Dysphagia, unspecified] Onset: 12-08-2024 04-09-2023 Episodic Other non-traumatic joint disorders (20 sources) Pain in lower limb; Translations: [Pain in unspecified knee] Onset: 01-22-2007 01-22-2007 Episodic Residual codes; unclassified (20 sources) Sleep apnea; Translations: [Sleep apnea, unspecified] Onset: 04-15-2010 Resolved: 02-01-2019 02-01-2019 Chronic Spondylosis; intervertebral disc disorders; other back problems (20 sources) Low back pain; Translations: [Lumbago] Onset: 01-05-2007 01-05-2007 Episodic Varicose veins of lower extremity (20 sources) 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; Translations: [Varicose veins of left lower extremity with both ulcer of unspecified site and inflammation] Onset: 05-28-2005 Resolved: 08-23-2024 Episodic Viral infection (20 sources) Disease caused by 2019-nCoV; Translations: [COVID-19] Onset: 07-29-2018 Resolved: 02-01-2019 Episodic Results Test Name Value Interpretation Reference Range Facility [facility] 03-22-2025 [facility] Telephone (NEMESIODNA) TENA CANNON ([id number]) 1940 F Date Time Provider Department 03/22/25 SAHRA GUY During your visit today, we recorded the following information about you: Norma Long 03/22/2025 4:26 PM Signed Tena has her daughter calling for information to request medical records request for insurance company. Fax and phone number was provided Patient has been identified by name and birthdate. Person calling: daughter: Juan Rose patient at: on cell [phone] (home) [phone] (cell) Was an appointment scheduled: No Closing statement: Results or non-symptom based questions: Thank you for calling [facility], your call will be returned within the next business day. Norma Torres [facility] [place] As of Date: 03/22/2025 Noted Allergy Reaction KEFLEX (CEPHALEXIN) 05/12/2005 6 - Diarrhea 8 - GI Upset Comments: extreme diarrhea VIOXX (ROFECOXIB) 05/12/2005 5 - Intolerance Comments: Makes capillaryblood vessels break NOVOCAIN (PROCAINE HCL) 01/13/2024 5 - Intolerance Comments: headaches NSAIDS (NON-STEROIDAL ANTI-INFLAM*02/06/2025 16 - Unknown OMEGA-3 FISH OIL (OMEGA-3 FATTY A*05/05/2007 5 - Intolerance Comments: bleeding in eye ADVIL (IBUPROFEN) 05/28/2005 5 - Intolerance Comments: Makes capillary blood vessels bread ASA (SALICYLATES) 05/28/2005 5 - Intolerance Comments: Makes capillary blood vessels break Date Reviewed: 02/07/2025 Reviewed by: Yandy Cruz LPN - Fully Assessed Reason for Visit: FYI-No Action Needed [265] Prescriptions as of 03/22/2025 - sulfamethoxazole-trime thoprim (BACTRIM DS) 800-160 mg per tablet Take 1 tablet by mouth two times a day. - dextran 70-hypromellose (ARTIFICIAL TEARS,[id number],) 0.1-0.3 % ophthalmic solution Use 1 drop in both eyes two times a day. - lidocaine (ASPERFLEX, LIDOCAINE,) 4 % patch Apply 1 application as directed once daily. Apply to lower back, on for twelve hours, off for twelve hours. - cjaotgaf-ufhs-qhq5-C-m ang-bosw (OSTEO BI-FLEX TRIPLE STRENGTH) 750 mg-644 mg- 30 mg-1 mg tab Take 1 tablet by mouth once daily. - pantoprazole DR (PROTONIX) 40 mg tablet Take 40 mg by mouth once daily. - Cholecalciferol, Vitamin D3, (VITAMIN D-3) 50 mcg (2,000 unit) cap Take 1 capsule by mouth once daily. - tamsulosin (FLOMAX) 0.4 mg Take 1 capsule by mouth daily at bedtime. - propylene glycol (SYSTANE COMPLETE OPHTHALMIC) Use 1 drop in eyes two times a day. - cyclobenzaprine (FLEXERIL) 5 mg tablet Take 1 tablet by mouth two times a day as needed. - amLODIPine (NORVASC) 5 mg tablet Take 1 tablet by mouth two times a day. - lidocaine (LIDODERM) 5 % Apply 1 patch as directed once daily. REMOVE AFTER 12 HOURS. - metFORMIN (GLUCOPHAGE) 500 mg tablet Take 1 tablet by mouth daily with breakfast. - esomeprazole (NEXIUM) 40 mg capsule TAKE 1 CAPSULE DAILY BEFOREBREAKFAST. 1/2 HOUR BEFORE A MEAL - esomeprazole (NEXIUM) 40 mg capsule TAKE 1 CAPSULE DAILY BEFOREBREAKFAST. 1/2 HOUR BEFORE A MEAL - metroNIDAZOLE (METROGEL) 0.75 % Topical Gel APPLY 1 APPLICATION TO AFFECTED AREA ONCE DAILY TOFACE - brimonidine (ALPHAGAN) 0.2 % ophthalmic solution Use 1 drop in the left eye two times a day. - loratadine (CLARITIN ORAL) Take 10 mg by mouth once daily. - nystatin-triamcinolone (MYCOLOG) ointment Apply sparingly to perineum twice daily for irritation/infection. - atropine 1 % ophthalmic solution Use 1 drop in the left eye two times a day. - sulfacetamide (BLEPH-10) 10 % ophthalmic solution Use 1 Drop in both eyes four times daily. INSIDE LOWER EYELID(S) 1-4 TIMES DAILY AND AT BEDTIME - miconazole (MONISTAT 7) 2 % vaginal cream Use 1 Applicator vaginally daily at bedtime. - calcium carbonate (CALCIUM 500 ORAL) Take by mouth every other day. - BIOTIN ORAL Take 1 capsule by mouth once daily. - vitamin B complex (B COMPLEX VITAMINS ORAL) Take 1 tablet by mouth once daily. - ergocalciferol, vitamin D2, (VITAMIN D2 ORAL) Take 1 tablet by mouth once daily. - ferrous sulfate 325 mg (65 mg iron) tablet Take 325 mg by mouth every other day. - therapeutic multivitamin w/ iron (THERAGRAN-M) 9 mg iron-400 mcg tablet Take 1 tablet by mouth once daily. - prednisoLONE acetate (PRED FORTE, ECONOPRED PLUS) 1 % ophthalmic suspension Use 1 Drop in the left eye twice daily as needed. - timolol maleate (TIMOPTIC) 0.5 % ophthalmic solution Use 1 Drop in the left eye every morning. - polyvinyl alcohol (LIQUID TEARS OPHTHALMIC) Use in eyes. - rutin/hesp/bioflav/C/h (BIOFLEX ORAL) Take 1 capsule by mouth twice daily. - CPAP BipaP @ 14/9 cm of water with humidification, removable water dispenser (for cleaning) . Mask (small/ per patient preference) , filters, tubing, humidifier and lifetime supplies. (G47.33, Z99.89) Obstructive sleep apnea on CPAP - cyclopentolate (more content not included)... Normal [facility] Absolute lymphocyte countOrd ered By: Chey Kumar on 03-07-2025 Lymphocytes Auto (Unsp spec) [#/Vol] 1.93 10*3/uL 0.83-4.51 [facility] Absolute neutrophil countOrd ered By: Chey Kumar on 03-07-2025 Neutrophils (Bld) [#/Vol] 1.9 10*3/uL Low 2.0-7.7 [facility] Anion gap in Serum or Plasma Ordered By: Chey Kumar on 03-07-2025 Anion gap [Moles/Vol] 10 mmol/L 5-15 [facility] Automated lymphocyte count a s percentage of total leukocytesOrdered By: Chey Kumar on 03-07-2025 Lymphocytes/100 WBC Auto (Unsp spec) 40.5 % 19-41 [facility] BUN/creatinine ratioOrdered By: Chey Kumar on 03-07-2025 Urea nitrogen/Creatinine [Mass ratio] 47.2 mg/mg High 10-20 [facility] Basophil percentageOrdered B y: Chey Kumar on 03-07-2025 Basophils/100 WBC (Bld) 1.1 % High 0-1 [facility] Carbon dioxide, total [Moles /volume] in Central venous bloodOrdered By: Chey Kumar on 03-07-2025 CO2 [Moles/Vol] 25.6 mmol/L 21.0-32.0 [facility] Chloride assayOrdered By: Walt Kumar on 03-07-2025 Chloride [Moles/Vol] 102 mmol/L 98-108 [facility] Eosinophil percentageOrdered By: Chey Kumar on 03-07-2025 Eosinophils/100 WBC (Bld) 3.6 % 0-5 [facility] Erythrocyte distribution wid th ratioOrdered By: Chey Kumar on 03-07-2025 Erythrocyte distribution width (RBC) [Ratio] 14.1 % 11.6-14.6 [facility] Erythrocyte distribution wid th standard deviationOrdered By: Chey Kumar on 03-07-2025 Erythrocyte distribution width (RBC) [Ratio] 49.0 fl High 35.1-43.9 [facility] Glomerular filtration rate ( GFR) estimation/1.73 sq m using serum, plasma, or whole bOrdered By: garfield Kumar on 03-07-2025 GFR/1.73 sq M.predicted among non-blacks MDRD (S/P/Bld) [Vol rate/Area] 108 mL/min/{1.73_m2} >60 [facility] Comment on above: mL/min/1.73m2 CKD-EP I Creatinine Equation (2020) Hematocrit Auto (Bld) [Volum e fraction]Ordered By: Chey Kumar on 03-07-2025 Hematocrit (Bld) [Volume fraction] 33.3 % Low 37-47 [facility] Hemoglobin measurementOrdere d By: Chey Kumar 03-07-2025 Hemoglobin (Bld) [Mass/Vol] 10.9 g/dL Low 12.0-15.0 [facility] Immature granulocytes/100 WB C Auto (Bld)Ordered By: Chey Kumar on 03-07-2025 Immature granulocytes/100 WBC (Bld) 0.200 % 0.0-0.9 [facility] Comment on above: IG% - Immature Granu locytes (promyelocytes, myelocytes and metamyelocytes) > 1% indicates that a LEFT SHIFT is Present. MCV (mean corpuscular volume ) determinationOrdered By: Chey Kumar on 03-07-2025 MCV (RBC) [Entitic vol] 93.8 fL 81-99 [facility] Mean corpuscular hemoglobin (MCH) determinationOrdered By: Chey Kumar on 03-07-2025 MCH (RBC) [Entitic mass] 30.7 pg 27.0-32.0 [facility] Mean corpuscular hemoglobin concentration (MCHC) determinationOrdered By: Chey Kumar on 03-07-2025 MCHC (RBC) [Mass/Vol] 32.7 g/dL 32-36 [facility] Mean platelet volume determi nationOrdered By: Chey Kumar on 03-07-2025 Platelet mean volume (Bld) [Entitic vol] 11.3 fL 6.2-12.0 [facility] Monocyte percentageOrdered B y: Chey Kumar on 03-07-2025 Monocytes/100 WBC (Bld) 14.5 % High 0-10 [facility] Neutrophil percentageOrdered By: Chey Kumar on 03-07-2025 Neutrophils/100 WBC (Bld) 40.1 % Low 47-70 [facility] Nucleated red blood cell per centageOrdered By: Chey Kumar on 03-07-2025 Nucleated RBC/100 WBC (Bld) [Ratio] 0 % 0-5 [facility] Platelet countOrdered By: Walt carmenbrittany Kumar on 03-07-2025 Platelets (Bld) [#/Vol] 238 10*3/uL 150-450 [facility] Potassium measurement (mass/ volume)Ordered By: Chey Kumar on 03-07-2025 Potassium (Unsp spec) [Mass/Vol] 3.8 mmol/L 3.3-5.1 [facility] RBC Auto (Bld) [#/Vol]Ordere d By: Chey Kumar on 03-07-2025 RBC (Bld) [#/Vol] 3.55 10*6/uL Low 4.2-5.4 [facility] Serum creatinine measurement (mass/volume)Ordered By: Chey Kumar on 03-07-2025 Creatinine [Mass/Vol] 0.25 mg/dL Low 0.70-1.20 [facility] Serum glucose measurement (m ass/volume)Ordered By: Chey Kumar on 03-07-2025 Glucose [Mass/Vol] 95 mg/dL 70-99 [facility] Serum or plasma calcium ori urement (mass/volume)Ordered By: Chey Kumar on 03-07-2025 Calcium [Mass/Vol] 9.8 mg/dL 7.6-11.0 [facility] Serum or plasma urea nitroge n measurement (mass/volume)Ordered By: Chey Kumar on 03-07-2025 Urea nitrogen [Mass/Vol] 12 mg/dL 4-19 [facility] Sodium levelOrdered By: Melinda perezseveroalvin Kumar on 03-07-2025 Sodium [Moles/Vol] 138 mmol/L 133-145 [facility] White blood cell (WBC) count Ordered By: Chey Kumar on 03-07-2025 WBC (Bld) [#/Vol] 4.8 10*3/uL 4.4-11.0 [facility] Absolute lymphocyte countOrd ered By: Chey Kumar on 02-28-2025 Lymphocytes Auto (Unsp spec) [#/Vol] 1.77 10*3/uL 0.83-4.51 [facility] Absolute neutrophil countOrd ered By: Chey Kumar on 02-28-2025 Neutrophils (Bld) [#/Vol] 2.6 10*3/uL 2.0-7.7 [facility] Anion gap in Serum or Plasma Ordered By: Chey Kumar on 02-28-2025 Anion gap [Moles/Vol] 10 mmol/L 5-15 [facility] Automated lymphocyte count a s percentage of total leukocytesOrdered By: Chey Kumar on 02-28-2025 Lymphocytes/100 WBC Auto (Unsp spec) 34.0 % 19-41 [facility] BUN/creatinine ratioOrdered By: Chey Kumar on 02-28-2025 Urea nitrogen/Creatinine [Mass ratio] 50.2 mg/mg High 10-20 [facility] Basophil percentageOrdered B y: Chey Kumar on 02-28-2025 Basophils/100 WBC (Bld) 1.2 % High 0-1 [facility] Carbon dioxide, total [Moles /volume] in Central venous bloodOrdered By: Chey Kumar on 02-28-2025 CO2 [Moles/Vol] 25.0 mmol/L 21.0-32.0 [facility] Chloride assayOrdered By: Walt Kumar on 02-28-2025 Chloride [Moles/Vol] 101 mmol/L 98-108 [facility] Eosinophil percentageOrdered By: Chey Kumar on 02-28-2025 Eosinophils/100 WBC (Bld) 2.3 % 0-5 [facility] Erythrocyte distribution wid th ratioOrdered By: Chey Kumar on 02-28-2025 Erythrocyte distribution width (RBC) [Ratio] 14.2 % 11.6-14.6 [facility] Erythrocyte distribution wid th standard deviationOrdered By: carmenunityyoli Kumar on 02-28-2025 Erythrocyte distribution width (RBC) [Ratio] 48.8 fl High 35.1-43.9 [facility] Glomerular filtration rate ( GFR) estimation/1.73 sq m using serum, plasma, or whole bOrdered By: Chey Kumar on 02-28-2025 GFR/1.73 sq M.predicted among non-blacks MDRD (S/P/Bld) [Vol rate/Area] 110 mL/min/{1.73_m2} >60 [facility] Comment on above: mL/min/1.73m2 CKD-EP I Creatinine Equation (2020) Hematocrit Auto (Bld) [Volum e fraction]Ordered By: Chey Kumar on 02-28-2025 Hematocrit (Bld) [Volume fraction] 33.2 % Low 37-47 [facility] Hemoglobin measurementOrdere d By: Chey Kumar on 02-28-2025 Hemoglobin (Bld) [Mass/Vol] 11.0 g/dL Low 12.0-15.0 [facility] Immature granulocytes/100 WB C Auto (Bld)Ordered By: Chey Kumar 02-28-2025 Immature granulocytes/100 WBC (Bld) 0.200 % 0.0-0.9 [facility] Comment on above: IG% - Immature Granu locytes (promyelocytes, myelocytes and metamyelocytes) > 1% indicates that a LEFT SHIFT is Present. Iron measurement (mass/mass) Ordered By: Chey Kumar on 02-28-2025 Iron (Unsp spec) [Mass/Mass] 51 ug/dL 50-170 [facility] MCV (mean corpuscular volume ) determinationOrdered By: Chey Kumar on 02-28-2025 MCV (RBC) [Entitic vol] 93.3 fL 81-99 [facility] Mean corpuscular hemoglobin (MCH) determinationOrdered By: carmenunityyoli Kumar on 02-28-2025 MCH (RBC) [Entitic mass] 30.9 pg 27.0-32.0 [facility] Mean corpuscular hemoglobin concentration (MCHC) determinationOrdered By: garfield Kumar on 02-28-2025 MCHC (RBC) [Mass/Vol] 33.1 g/dL 32-36 [facility] Mean platelet volume determi nationOrdered By: Chey Kumar on 02-28-2025 Platelet mean volume (Bld) [Entitic vol] 11.0 fL 6.2-12.0 [facility] Monocyte percentageOrdered B y: Chey Kumar on 02-28-2025 Monocytes/100 WBC (Bld) 12.9 % High 0-10 [facility] Neutrophil percentageOrdered By: carmenunityyoli Kumar on 02-28-2025 Neutrophils/100 WBC (Bld) 49.4 % 47-70 [facility] No Panel InformationOrdered By: Chey Kumar on 02-28-2025 Unsaturated Iron Binding Capacity 120 ug/dL Low 228-428 [facility] Nucleated red blood cell per centageOrdered By: garfield Kumar on 02-28-2025 Nucleated RBC/100 WBC (Bld) [Ratio] 0 % 0-5 [facility] Platelet countOrdered By: Walt Kumar on 02-28-2025 Platelets (Bld) [#/Vol] 228 10*3/uL 150-450 [facility] Potassium measurement (mass/ volume)Ordered By: Chey Kumar on 02-28-2025 Potassium (Unsp spec) [Mass/Vol] 4.0 mmol/L 3.3-5.1 [facility] RBC Auto (Bld) [#/Vol]Ordere d By: Chey Kumar on 02-28-2025 RBC (Bld) [#/Vol] 3.56 10*6/uL Low 4.2-5.4 [facility] Serum creatinine measurement (mass/volume)Ordered By: Chey Kumar on 02-28-2025 Creatinine [Mass/Vol] 0.24 mg/dL Low 0.70-1.20 [facility] Serum glucose measurement (m ass/volume)Ordered By: Chey Kumar on 02-28-2025 Glucose [Mass/Vol] 108 mg/dL High 70-99 [facility] Serum or plasma calcium ori urement (mass/volume)Ordered By: Chey Kumar on 02-28-2025 Calcium [Mass/Vol] 9.5 mg/dL 7.6-11.0 [facility] Serum or plasma ferritin skylar surement (mass/volume)Ordered By: Chey Kumar on 02-28-2025 Ferritin [Mass/Vol] 1486 ng/mL High 22-378 [facility] Serum or plasma iron saturat ion measurement (mass fraction)Ordered By: Chey Kumar on 02-28-2025 Iron saturation [Mass fraction] 29.8 % 13-59 [facility] Comment on above: Previous reported re sult: 30.0 %Edited by: KAVYA on 02/28/25:0818 AMENDED REPORT 02/28/25 0818 IRON SATURATION previously reported as: 30.0 % Serum or plasma urea nitroge n measurement (mass/volume)Ordered By: Chey Kumar on 02-28-2025 Urea nitrogen [Mass/Vol] 12 mg/dL 4-19 [facility] Sodium levelOrdered By: Melinda Kumar on 02-28-2025 Sodium [Moles/Vol] 136 mmol/L 133-145 [facility] White blood cell (WBC) count Ordered By: Melindashayoli Yusraalvin on 02-28-2025 WBC (Bld) [#/Vol] 5.2 10*3/uL 4.4-11.0 [facility] Absolute lymphocyte countOrd ered By: Waltcarmenbrittany Kumar on 02-21-2025 Lymphocytes Auto (Unsp spec) [#/Vol] 1.88 10*3/uL 0.83-4.51 [facility] Absolute neutrophil countOrd ered By: Chey Kumar on 02-21-2025 Neutrophils (Bld) [#/Vol] 1.7 10*3/uL Low 2.0-7.7 [facility] Anion gap in Serum or Plasma Ordered By: Chey Singletongriseldaalvin on 02-21-2025 Anion gap [Moles/Vol] 10 mmol/L 5-15 [facility] Automated lymphocyte count a s percentage of total leukocytesOrdered By: Chey Singletongriseldaalvin on 02-21-2025 Lymphocytes/100 WBC Auto (Unsp spec) 43.4 % High 19-41 [facility] BUN/creatinine ratioOrdered By: Waltcarmenbrittany Manigriseldaalvin on 02-21-2025 Urea nitrogen/Creatinine [Mass ratio] 33.9 mg/mg High 10-20 [facility] Basophil percentageOrdered B y: Chey Kumar on 02-21-2025 Basophils/100 WBC (Bld) 1.4 % High 0-1 [facility] Carbon dioxide, total [Moles /volume] in Central venous bloodOrdered By: Chey Singletongriseldaalvin on 02-21-2025 CO2 [Moles/Vol] 24.2 mmol/L 21.0-32.0 [facility] Chloride assayOrdered By: Walt carmenbrittany Singletongriseldaalvin on 02-21-2025 Chloride [Moles/Vol] 100 mmol/L 98-108 [facility] Eosinophil percentageOrdered By: Waltcarmenbrittany Manigriseldaalvin on 02-21-2025 Eosinophils/100 WBC (Bld) 1.8 % 0-5 [facility] Erythrocyte distribution wid th ratioOrdered By: Waltcarmenshayoli Singletongriseldaalvin on 02-21-2025 Erythrocyte distribution width (RBC) [Ratio] 14.3 % 11.6-14.6 [facility] Erythrocyte distribution wid th standard deviationOrdered By: Chey Kumar on 02-21-2025 Erythrocyte distribution width (RBC) [Ratio] 47.4 fl High 35.1-43.9 [facility] Glomerular filtration rate ( GFR) estimation/1.73 sq m using serum, plasma, or whole bOrdered By: Chey Kumar on 02-21-2025 GFR/1.73 sq M.predicted among non-blacks MDRD (S/P/Bld) [Vol rate/Area] 102 mL/min/{1.73_m2} >60 [facility] Comment on above: mL/min/1.73m2 CKD-EP I Creatinine Equation (2020) Hematocrit Auto (Bld) [Volum e fraction]Ordered By: Chey Kumar on 02-21-2025 Hematocrit (Bld) [Volume fraction] 31.2 % Low 37-47 [facility] Hemoglobin measurementOrdere d By: Chey Kumar on 02-21-2025 Hemoglobin (Bld) [Mass/Vol] 10.7 g/dL Low 12.0-15.0 [facility] Immature granulocytes/100 WB C Auto (Bld)Ordered By: Chey Kumar 02-21-2025 Immature granulocytes/100 WBC (Bld) 0.200 % 0.0-0.9 [facility] Comment on above: IG% - Immature Granu locytes (promyelocytes, myelocytes and metamyelocytes) > 1% indicates that a LEFT SHIFT is Present. MCV (mean corpuscular volume ) determinationOrdered By: Chey Kumar on 02-21-2025 MCV (RBC) [Entitic vol] 91.0 fL 81-99 [facility] Mean corpuscular hemoglobin (MCH) determinationOrdered By: Chey Kumar 02-21-2025 MCH (RBC) [Entitic mass] 31.2 pg 27.0-32.0 [facility] Mean corpuscular hemoglobin concentration (MCHC) determinationOrdered By: Chey Kumar 02-21-2025 MCHC (RBC) [Mass/Vol] 34.3 g/dL 32-36 [facility] Mean platelet volume determi nationOrdered By: Chey Kumar on 02-21-2025 Platelet mean volume (Bld) [Entitic vol] 11.2 fL 6.2-12.0 [facility] Monocyte percentageOrdered B y: Chey Maniaubrey on 02-21-2025 Monocytes/100 WBC (Bld) 14.8 % High 0-10 [facility] Neutrophil percentageOrdered By: Chey Manigriseldaalvin on 02-21-2025 Neutrophils/100 WBC (Bld) 38.4 % Low 47-70 [facility] Nucleated red blood cell per centageOrdered By: Chey Maniaubrey on 02-21-2025 Nucleated RBC/100 WBC (Bld) [Ratio] 0 % 0-5 [facility] Platelet countOrdered By: Walt garfield Manigriseldaalvin on 02-21-2025 Platelets (Bld) [#/Vol] 280 10*3/uL 150-450 [facility] Potassium measurement (mass/ volume)Ordered By: Waltgarfield Singletongriseldaalvin on 02-21-2025 Potassium (Unsp spec) [Mass/Vol] 4.3 mmol/L 3.3-5.1 [facility] RBC Auto (Bld) [#/Vol]Ordere d By: Waltcarmenbrittany Manigriseldaalvin on 02-21-2025 RBC (Bld) [#/Vol] 3.43 10*6/uL Low 4.2-5.4 [facility] Serum creatinine measurement (mass/volume)Ordered By: Chey Kumar on 02-21-2025 Creatinine [Mass/Vol] 0.31 mg/dL Low 0.70-1.20 [facility] Serum glucose measurement (m ass/volume)Ordered By: Waltcarmenshayoli Singletongriseldaalvin on 02-21-2025 Glucose [Mass/Vol] 88 mg/dL 70-99 [facility] Serum or plasma calcium ori urement (mass/volume)Ordered By: Chey Kumar on 02-21-2025 Calcium [Mass/Vol] 10.0 mg/dL 7.6-11.0 [facility] Serum or plasma urea nitroge n measurement (mass/volume)Ordered By: Chey Kumar on 02-21-2025 Urea nitrogen [Mass/Vol] 11 mg/dL 4-19 [facility] Sodium levelOrdered By: Melinda Kumar on 02-21-2025 Sodium [Moles/Vol] 134 mmol/L 133-145 [facility] White blood cell (WBC) count Ordered By: Chey Kumar on 02-21-2025 WBC (Bld) [#/Vol] 4.3 10*3/uL Low 4.4-11.0 [facility] Absolute lymphocyte countOrd ered By: Chey Kumar on 02-14-2025 Lymphocytes Auto (Unsp spec) [#/Vol] 1.92 10*3/uL 0.83-4.51 [facility] Absolute neutrophil countOrd ered By: Chey Kumar on 02-14-2025 Neutrophils (Bld) [#/Vol] 2.1 10*3/uL 2.0-7.7 [facility] Anion gap in Serum or Plasma Ordered By: Chey Kumar on 02-14-2025 Anion gap [Moles/Vol] 10 mmol/L 5-15 [facility] Automated lymphocyte count a s percentage of total leukocytesOrdered By: Chey Kumar on 02-14-2025 Lymphocytes/100 WBC Auto (Unsp spec) 39.8 % 19-41 [facility] BUN/creatinine ratioOrdered By: Chey Kumar on 02-14-2025 Urea nitrogen/Creatinine [Mass ratio] 44.8 mg/mg High 10-20 [facility] Basophil percentageOrdered B y: Chey Kumar on 02-14-2025 Basophils/100 WBC (Bld) 0.8 % 0-1 [facility] Carbon dioxide, total [Moles /volume] in Central venous bloodOrdered By: Chey Kumar on 02-14-2025 CO2 [Moles/Vol] 26.0 mmol/L 21.0-32.0 [facility] Chloride assayOrdered By: Walt garfield Maniaubrey on 02-14-2025 Chloride [Moles/Vol] 102 mmol/L 98-108 [facility] Eosinophil percentageOrdered By: Chey Kumar on 02-14-2025 Eosinophils/100 WBC (Bld) 2.5 % 0-5 [facility] Erythrocyte distribution wid th ratioOrdered By: Chey Kumar on 02-14-2025 Erythrocyte distribution width (RBC) [Ratio] 14.1 % 11.6-14.6 [facility] Erythrocyte distribution wid th standard deviationOrdered By: Chey Kumar on 02-14-2025 Erythrocyte distribution width (RBC) [Ratio] 48.4 fl High 35.1-43.9 [facility] Glomerular filtration rate ( GFR) estimation/1.73 sq m using serum, plasma, or whole bOrdered By: Melindaunityyoli Kumar on 02-14-2025 GFR/1.73 sq M.predicted among non-blacks MDRD (S/P/Bld) [Vol rate/Area] 110 mL/min/{1.73_m2} >60 [facility] Comment on above: mL/min/1.73m2 CKD-EP I Creatinine Equation (2020) Hematocrit Auto (Bld) [Volum e fraction]Ordered By: Chey Kumar on 02-14-2025 Hematocrit (Bld) [Volume fraction] 31.6 % Low 37-47 [facility] Hemoglobin measurementOrdere d By: Chey Kumar 02-14-2025 Hemoglobin (Bld) [Mass/Vol] 10.4 g/dL Low 12.0-15.0 [facility] Immature granulocytes/100 WB C Auto (Bld)Ordered By: Chey Kumar on 02-14-2025 Immature granulocytes/100 WBC (Bld) 0.200 % 0.0-0.9 [facility] Comment on above: IG% - Immature Granu locytes (promyelocytes, myelocytes and metamyelocytes) > 1% indicates that a LEFT SHIFT is Present. MCV (mean corpuscular volume ) determinationOrdered By: Chey Kumar on 02-14-2025 MCV (RBC) [Entitic vol] 93.8 fL 81-99 [facility] Mean corpuscular hemoglobin (MCH) determinationOrdered By: Chey Kumar on 02-14-2025 MCH (RBC) [Entitic mass] 30.9 pg 27.0-32.0 [facility] Mean corpuscular hemoglobin concentration (MCHC) determinationOrdered By: Chey Kumar on 02-14-2025 MCHC (RBC) [Mass/Vol] 32.9 g/dL 32-36 [facility] Mean platelet volume determi nationOrdered By: Chey Kumar on 02-14-2025 Platelet mean volume (Bld) [Entitic vol] 10.4 fL 6.2-12.0 [facility] Monocyte percentageOrdered B y: Chey Kumar on 02-14-2025 Monocytes/100 WBC (Bld) 13.3 % High 0-10 [facility] Neutrophil percentageOrdered By: Chey Kumar on 02-14-2025 Neutrophils/100 WBC (Bld) 43.4 % Low 47-70 [facility] Nucleated red blood cell per centageOrdered By: Chey Kumar on 02-14-2025 Nucleated RBC/100 WBC (Bld) [Ratio] 0 % 0-5 [facility] Platelet countOrdered By: Walt carmenbrittany Kumar on 02-14-2025 Platelets (Bld) [#/Vol] 280 10*3/uL 150-450 [facility] Potassium measurement (mass/ volume)Ordered By: Chey Kumar on 02-14-2025 Potassium (Unsp spec) [Mass/Vol] 3.8 mmol/L 3.3-5.1 [facility] RBC Auto (Bld) [#/Vol]Ordere d By: Chey Kumar on 02-14-2025 RBC (Bld) [#/Vol] 3.37 10*6/uL Low 4.2-5.4 [facility] Serum creatinine measurement (mass/volume)Ordered By: Chey Kumar on 02-14-2025 Creatinine [Mass/Vol] 0.23 mg/dL Low 0.70-1.20 [facility] Serum glucose measurement (m ass/volume)Ordered By: Chey Kumar on 02-14-2025 Glucose [Mass/Vol] 92 mg/dL 70-99 [facility] Serum or plasma calcium ori urement (mass/volume)Ordered By: Chey Kumar on 02-14-2025 Calcium [Mass/Vol] 9.7 mg/dL 7.6-11.0 [facility] Serum or plasma urea nitroge n measurement (mass/volume)Ordered By: Chey Kumar on 02-14-2025 Urea nitrogen [Mass/Vol] 10 mg/dL 4-19 [facility] Sodium levelOrdered By: Melinda Kumar on 02-14-2025 Sodium [Moles/Vol] 138 mmol/L 133-145 [facility] White blood cell (WBC) count Ordered By: Chey Kumar on 02-14-2025 WBC (Bld) [#/Vol] 4.8 10*3/uL 4.4-11.0 [facility] CNPNon 02-10-2025 PHAN Telephone (DANIELE) TENA CANNON ([id number]) 1940 F Date Time Provider Department 02/10/25 MARILYN SANTOS During your visit today, we recorded the following information about you: Yandy Cruz LPN 02/10/2025 9:24 AM Signed ----- Message from Marilyn Santos PA-C sent at 02/09/2025 11:51 AM EDT ----- Regarding: urine culture is positive Please tell her the urine culture is positive and to start bactrim. Thanks Yandy Sierra LPN 02/10/2025 9:27 AM Signed Called patient. No answer- left message to call clinic for message. LOBO Armas Kimberly, LPN 02/10/2025 9:37 AM Signed Order Audit [place]: sulfamethoxazole-trime thoprim (BACTRIM DS) 800-160 mg per tablet [[id number]] Original entry by Marilyn Santos PA-C 02/09/2025 11:52 AM Revision History Medication Order name: sulfamethoxazole-trime thoprim (BACTRIM DS) 800-160 mg per tablet Medication: SULFAMETHOXAZOLE 800 MG-TRIMETHOPRIM 160 MG TABLET [[id number]] Dispense as Written: No Clinical Dose: 1 tablet Route: ORAL Frequency: 2 TIMES DAILY Duration: -- Number of Days Supply: -- Sig: Take 1 tablet by mouth two times a day. Order Class: Normal Priority: -- Dispense Quantity: 14 tablets Refills: 0 Associated Diagnoses: -- Pharmacy Associated Diagnoses: -- Dates Yandy Cruz LPN 02/10/2025 9:37 AM Signed Faxed order and results to [facility]. LOBO Armas Kimberly, LPN 02/14/2025 9:52 AM Signed Called [facility], patient on [facility]. Spoke with LOBO Soto. Reports patient had been transferred [facility]. LOBO Soto informed of orders and she will update facility provider. Yandy Cruz LPN Allergies As of Date: 02/10/2025 Noted Allergy Reaction KEFLEX (CEPHALEXIN) 05/12/2005 6 - Diarrhea 8 - GI Upset Comments: extreme diarrhea VIOXX (ROFECOXIB) 05/12/2005 5 - Intolerance Comments: Makes capillaryblood vessels break NOVOCAIN (PROCAINE HCL) 01/13/2024 5 - Intolerance Comments: headaches NSAIDS (NON-STEROIDAL ANTI-INFLAM*02/06/2025 16 - Unknown OMEGA-3 FISH OIL (OMEGA-3 FATTY A*05/05/2007 5 - Intolerance Comments: bleeding in eye ADVIL (IBUPROFEN) 05/28/2005 5 - Intolerance Comments: Makes capillary blood vessels bread ASA (SALICYLATES) 05/28/2005 5 - Intolerance Comments: Makes capillary blood vessels break Date Reviewed: 02/07/2025 Reviewed by: Yandy Cruz LPN - Fully Assessed Reason for Visit: Results [95] Orders [681] Prescriptions as of 02/14/2025 - sulfamethoxazole-trime thoprim (BACTRIM DS) 800-160 mg per tablet Take 1 tablet by mouth two times a day. - dextran 70-hypromellose (ARTIFICIAL TEARS,[id number],) 0.1-0.3 % ophthalmic solution Use 1 drop in both eyes two times a day. - lidocaine (ASPERFLEX, LIDOCAINE,) 4 % patch Apply 1 application as directed once daily. Apply to lower back, on for twelve hours, off for twelve hours. - xtjwtlkw-ieqx-afm8-C-m ang-bosw (OSTEO BI-FLEX TRIPLE STRENGTH) 750 mg-644 mg- 30 mg-1 mg tab Take 1 tablet by mouth once daily. - pantoprazole DR (PROTONIX) 40 mg tablet Take 40 mg by mouth once daily. - Cholecalciferol, Vitamin D3, (VITAMIN D-3) 50 mcg (2,000 unit) cap Take 1 capsule by mouth once daily. - polyethylene glycol 3350 17 gram packet Take 1 packet by mouth two times a day. Dissolve dose in 4 - 8 ounces of liquid and take as directed. - senna-docusate (SENNA-S) 8.6-50 mg per tablet Take 2 tablets by mouth two times a day. - tamsulosin (FLOMAX) 0.4 mg Take 1 capsule by mouth daily at bedtime. - propylene glycol (SYSTANE COMPLETE OPHTHALMIC) Use 1 drop in eyes two times a day. - cyclobenzaprine (FLEXERIL) 5 mg tablet Take 1 tablet by mouth two times a day as needed. - amLODIPine (NORVASC) 5 mg tablet Take 1 tablet by mouth two times a day. - lidocaine (LIDODERM) 5 % Apply 1 patch as directed once daily. REMOVE AFTER 12 HOURS. - metFORMIN (GLUCOPHAGE) 500 mg tablet Take 1 tablet by mouth daily with breakfast. - esomeprazole (NEXIUM) 40 mg capsule TAKE 1 CAPSULE DAILY BEFOREBREAKFAST. 1/2 HOUR BEFORE A MEAL - esomeprazole (NEXIUM) 40 mg capsule TAKE 1 CAPSULE DAILY BEFOREBREAKFAST. 1/2 HOUR BEFORE A MEAL - metroNIDAZOLE (METROGEL) 0.75 % Topical Gel APPLY 1 APPLICATION TO AFFECTED AREA ONCE DAILY TOFACE - brimonidine (ALPHAGAN) 0.2 % ophthalmic solution Use 1 drop in the left eye two times a day. - loratadine (CLARITIN ORAL) Take 10 mg by mouth once daily. - nystatin-triamcinolone (MYCOLOG) ointment Apply sparingly to perineum twice daily for irritation/infection. - atropine 1 % ophthalmic solution Use 1 drop in the left eye two times a day. - sulfacetamide (BLEPH-10) 10 % ophthalmic solution Use 1 Drop in both eyes four times daily. INSIDE LOWER EYELID(S) 1-4 TIMES DAILY AND AT BEDTIME - miconazole (MONISTAT 7) 2 % vaginal cream Use 1 Applicator vaginally daily at bedtim (more content not included)... Normal [facility] Potassium measurement (mass/ volume)Ordered By: Chey Kumar on 02-09-2025 Potassium (Unsp spec) [Mass/Vol] 4.1 mmol/L 3.3-5.1 [facility] CNPPascale 02-08-2025 PHAN Telephone (UROLWS) TENA CANNON ([id number]) 1940 F Date Time Provider Department 02/08/25 NARCISO SHERMAN During your visit today, we recorded the following information about you: Yandy Cruz LPN 02/08/2025 8:37 AM Signed Called [facility] to obtain fax number. Spoke with LOBO Burk on [facility] (Transition of Care). Fax number is . LOBO Armas Kimberly, LPN 02/08/2025 8:37 AM Signed Faxed urology office notes to facility. Yandy Cruz LPN Allergies As of Date: 02/08/2025 Noted Allergy Reaction KEFLEX (CEPHALEXIN) 05/12/2005 6 - Diarrhea 8 - GI Upset Comments: extreme diarrhea VIOXX (ROFECOXIB) 05/12/2005 5 - Intolerance Comments: Makes capillaryblood vessels break NOVOCAIN (PROCAINE HCL) 01/13/2024 5 - Intolerance Comments: headaches NSAIDS (NON-STEROIDAL ANTI-INFLAM*02/06/2025 16 - Unknown OMEGA-3 FISH OIL (OMEGA-3 FATTY A*05/05/2007 5 - Intolerance Comments: bleeding in eye ADVIL (IBUPROFEN) 05/28/2005 5 - Intolerance Comments: Makes capillary blood vessels bread ASA (SALICYLATES) 05/28/2005 5 - Intolerance Comments: Makes capillary blood vessels break Date Reviewed: 02/07/2025 Reviewed by: Yandy Cruz LPN - Fully Assessed Reason for Visit: Polisher Dial - Other [3602] Prescriptions as of 02/08/2025 - dextran 70-hypromellose (ARTIFICIAL TEARS,[id number],) 0.1-0.3 % ophthalmic solution Use 1 drop in both eyes two times a day. - lidocaine (ASPERFLEX, LIDOCAINE,) 4 % patch Apply 1 application as directed once daily. Apply to lower back, on for twelve hours, off for twelve hours. - hzbxhlfj-mnxp-ohh9-C-m ang-bosw (OSTEO BI-FLEX TRIPLE STRENGTH) 750 mg-644 mg- 30 mg-1 mg tab Take 1 tablet by mouth once daily. - pantoprazole DR (PROTONIX) 40 mg tablet Take 40 mg by mouth once daily. - Cholecalciferol, Vitamin D3, (VITAMIN D-3) 50 mcg (2,000 unit) cap Take 1 capsule by mouth once daily. - polyethylene glycol 3350 17 gram packet Take 1 packet by mouth two times a day. Dissolve dose in 4 - 8 ounces of liquid and take as directed. - senna-docusate (SENNA-S) 8.6-50 mg per tablet Take 2 tablets by mouth two times a day. - tamsulosin (FLOMAX) 0.4 mg Take 1 capsule by mouth daily at bedtime. - propylene glycol (SYSTANE COMPLETE OPHTHALMIC) Use 1 drop in eyes two times a day. - cyclobenzaprine (FLEXERIL) 5 mg tablet Take 1 tablet by mouth two times a day as needed. - amLODIPine (NORVASC) 5 mg tablet Take 1 tablet by mouth two times a day. - lidocaine (LIDODERM) 5 % Apply 1 patch as directed once daily. REMOVE AFTER 12 HOURS. - metFORMIN (GLUCOPHAGE) 500 mg tablet Take 1 tablet by mouth daily with breakfast. - esomeprazole (NEXIUM) 40 mg capsule TAKE 1 CAPSULE DAILY BEFOREBREAKFAST. 1/2 HOUR BEFORE A MEAL - esomeprazole (NEXIUM) 40 mg capsule TAKE 1 CAPSULE DAILY BEFOREBREAKFAST. 1/2 HOUR BEFORE A MEAL - metroNIDAZOLE (METROGEL) 0.75 % Topical Gel APPLY 1 APPLICATION TO AFFECTED AREA ONCE DAILY TOFACE - brimonidine (ALPHAGAN) 0.2 % ophthalmic solution Use 1 drop in the left eye two times a day. - loratadine (CLARITIN ORAL) Take 10 mg by mouth once daily. - nystatin-triamcinolone (MYCOLOG) ointment Apply sparingly to perineum twice daily for irritation/infection. - atropine 1 % ophthalmic solution Use 1 drop in the left eye two times a day. - sulfacetamide (BLEPH-10) 10 % ophthalmic solution Use 1 Drop in both eyes four times daily. INSIDE LOWER EYELID(S) 1-4 TIMES DAILY AND AT BEDTIME - miconazole (MONISTAT 7) 2 % vaginal cream Use 1 Applicator vaginally daily at bedtime. - calcium carbonate (CALCIUM 500 ORAL) Take by mouth every other day. - BIOTIN ORAL Take 1 capsule by mouth once daily. - vitamin B complex (B COMPLEX VITAMINS ORAL) Take 1 tablet by mouth once daily. - ergocalciferol, vitamin D2, (VITAMIN D2 ORAL) Take 1 tablet by mouth once daily. - ferrous sulfate 325 mg (65 mg iron) tablet Take 325 mg by mouth every other day. - therapeutic multivitamin w/ iron (THERAGRAN-M) 9 mg iron-400 mcg tablet Take 1 tablet by mouth once daily. - prednisoLONE acetate (PRED FORTE, ECONOPRED PLUS) 1 % ophthalmic suspension Use 1 Drop in the left eye twice daily as needed. - timolol maleate (TIMOPTIC) 0.5 % ophthalmic solution Use 1 Drop in the left eye every morning. - polyvinyl alcohol (LIQUID TEARS OPHTHALMIC) Use in eyes. - rutin/hesp/bioflav/C/h [id number] (BIOFLEX ORAL) Take 1 capsule by mouth twice daily. - CPAP BipaP @ 14/9 cm of water with humidification, removable water dispenser (for cleaning) . Mask (small/ per patient preference) , filters, tubing, humidifier and lifetime supplies. (G47.33, Z99.89) Obstructive sleep apnea on CPAP - cyclopentolate (CYCLOGYL) 1 % ophthalmic solution Use 1 Drop in the left eye two times a day. Problem List As Of Date 02/08/2025 Not (more content not included)... Normal [facility] Absolute lymphocyte countOrd ered By: Chey Kumar on 02-07-2025 Lymphocytes Auto (Unsp spec) [#/Vol] 1.60 10*3/uL 0.83-4.51 [facility] Absolute neutrophil countOrd ered By: Chey Kumar on 02-07-2025 Neutrophils (Bld) [#/Vol] 1.7 10*3/uL Low 2.0-7.7 [facility] Anion gap in Serum or Plasma Ordered By: Chey Kumar on 02-07-2025 Anion gap [Moles/Vol] 11 mmol/L 5-15 [facility] Automated lymphocyte count a s percentage of total leukocytesOrdered By: Chey Kumar on 02-07-2025 Lymphocytes/100 WBC Auto (Unsp spec) 40.6 % 19-41 [facility] BUN/creatinine ratioOrdered By: [facility] Singletonalvin on 02-07-2025 Urea nitrogen/Creatinine [Mass ratio] 46.6 mg/mg High 10-20 [facility] Bacteria Ur Culton Bacteria identified Cx Nom (U) CULTURE, URINE: Mixed microbiota: ORGANISM ID: 1 >=100,000 CFU/ml Enterococcus faecalis Cephalosporins, clindamycin, and TMP-SMX are not effective for the treatment of enterococcal infections. ORGANISM ID: 2 10,000 -<50,000 CFU/ml Lactose positive gram negative bacilli Insignificant colony count. No further workup. ORGANISM ID: 1 (ENTEROCOCCUS FAECALIS) -- ANTIBIOTIC INTERPRETATION ELDON STATUS REFERENCE RANGE -- Ampicillin S <=2 F Susceptible <=8 , Resistant >8 Vancomycin S 1 F Susceptible <=4 , Intermediate >4 , Resistant >16 Nitrofurantoin S <=16 F Susceptible <=32 , Intermediate >32 , Resistant >64 Abnormal [facility] Comment on above: Performed By: #### 6 30-4 ####[facility] LABCLIA [id number] [address] [place] Basophil percentageOrdered B y: Chey Kumar on 02-07-2025 Basophils/100 WBC (Bld) 0.8 % 0-1 [facility] Office Visit (UROLWS ) TENA CANNON ([id number]) 1940 F Date Time Provider Department 02/07/25 11:00 AM NARCISO SHERMAN During your visit today, we recorded the following information about you: Temperature Pulse Respiration Blood pressure 97.1 degrees 102/minute 14/minute 110/72 Narciso Sherman PA-C 02/07/2025 11:35 AM Signed [facility] NEW PATIENT CLINIC NOTE (F) Note was generated by [employer] and edited as appropriate SERVICE DATE: February 07, 2025 NAME: Tena M Cannon GENDER: female CHIEF COMPLAINT: The patient is an 84-year-old female with a history of recurrent UTIs, seen today for evaluation of urinary symptoms. HISTORY OF PRESENT ILLNESS: The patient is an 84-year-old female with a history of recurrent UTIs, seen today for evaluation of urinary symptoms. Urinary Symptoms: - Recent [place] catheter removed; patient unsure of reason for initial placement. - No known surgeries related to catheter placement. - History of recurrent UTIs; recently completed antibiotic treatment. - Denies current dysuria, frequency, or urgency. - Able to urinate independently. LABS: Glucose (mg/dL) Date Value 12/19/2024 89 08/30/2020 92 Potassium (mmol/L) Date Value 12/19/2024 4.1 08/30/2020 4.6 Sodium (mmol/L) Date Value 12/19/2024 139 08/30/2020 141 Chloride (mmol/L) Date Value 12/19/2024 99 08/30/2020 105 CO2 (mmol/L) Date Value 12/19/2024 32 08/30/2020 25 Creatinine (mg/dL) Date Value 12/19/2024 0.34 08/30/2020 0.39 BUN (mg/dL) Date Value 12/19/2024 18 08/30/2020 25 Anion Gap (mmol/L) Date Value 12/19/2024 8 08/30/2020 11 Calcium (mg/dL) Date Value 08/30/2020 10.0 Calcium, Total (mg/dL) Date Value 12/19/2024 8.9 Protein, Total (g/dL) Date Value 12/13/2024 7.0 08/30/2020 6.9 Albumin (g/dL) Date Value 12/13/2024 3.9 08/30/2020 4.0 Bilirubin, Total (mg/dL) Date Value 12/13/2024 0.7 08/30/2020 0.3 Alkaline Phosphatase (U/L) Date Value 12/13/2024 74 08/30/2020 64 AST (U/L) Date Value 12/13/2024 25 08/30/2020 30 ALT (U/L) Date Value 12/13/2024 18 08/30/2020 31 Creatinine Date Value Ref Range Status 12/19/2024 0.34 (L) 0.58 - 0.96 mg/dL Final 12/18/2024 0.30 (L) 0.58 - 0.96 mg/dL Final 12/17/2024 0.27 (L) 0.58 - 0.96 mg/dL Final MEDICATIONS: dextran 70-hypromellose (ARTIFICIAL TEARS,[id number],) 0.1-0.3 % ophthalmic solution Use 1 drop in both eyes two times a day. lidocaine (ASPERFLEX, LIDOCAINE,) 4 % patch Apply 1 application as directed once daily. Apply to lower back, on for twelve hours, off for twelve hours. [id number]-[id number]-m ang-bosw (OSTEO BI-FLEX TRIPLE STRENGTH) 750 mg-644 mg- 30 mg-1 mg tab Take 1 tablet by mouth once daily. pantoprazole DR (PROTONIX) 40 mg tablet Take 40 mg by mouth once daily. Cholecalciferol, Vitamin D3, (VITAMIN D-3) 50 mcg (2,000 unit) cap Take 1 capsule by mouth once daily. polyethylene glycol 3350 17 gram packet Take 1 packet by mouth two times a day. Dissolve dose in 4 - 8 ounces of liquid and take as directed. (Patient taking differently: Take 17 g by mouth once daily. Dissolve dose in 4 - 8 ounces of liquid and take as directed.) senna-docusate (SENNA-S) 8.6-50 mg per tablet Take 2 tablets by mouth two times a day. tamsulosin (FLOMAX) 0.4 mg Take 1 capsule by mouth daily at bedtime. cyclobenzaprine (FLEXERIL) 5 mg tablet Take 1 tablet by mouth two times a day as needed. amLODIPine (NORVASC) 5 mg tablet Take 1 tablet by mouth two times a day. metFORMIN (GLUCOPHAGE) 500 mg tablet Take 1 tablet by mouth daily with breakfast. metroNIDAZOLE (METROGEL) 0.75 % Topical Gel APPLY 1 APPLICATION TO AFFECTED AREA ONCE DAILY TOFACE loratadine (CLARITIN ORAL) Take 10 mg by mouth once daily. atropine 1 % ophthalmic solution Use 1 drop in the left eye two times a day. calcium carbonate (CALCIUM 500 ORAL) Take by mouth every other day. ferrous sulfate 325 mg (65 mg iron) tablet Take 325 mg by mouth every other day. timolol maleate (TIMOPTIC) 0.5 % ophthalmic solution Use 1 Drop in the left eye every morning. (Patient taking differently: Use 1 drop in the left eye two times a day.) CPAP BipaP @ 14/9 cm of water with humidification, removable water dispenser (for cleaning) . Mask (small/ per patient preference) , filters, tubing, humidifier and lifetime supplies. (G47.33, Z99.89) Obstructive sleep apnea on CPAP propylene glycol (SYSTANE COMPLETE OPHTHALMIC) Use 1 drop in eyes two times a day. lidocaine (LIDODERM) 5 % Apply 1 patch as directed once daily. REMOVE AFTER 12 HOURS. esomeprazole (NEXIUM) 40 mg capsule TAKE 1 CAPSULE DAILY BEFOREBREAKFAST. 1/2 HOUR BEFORE A MEAL esomeprazole (NEXIUM) 40 mg capsule TAKE 1 CAPSULE DAILY BEFOREBREAKFAST. 1/2 HOUR BEFORE A MEAL b (more content not included)... Normal [facility] Carbon dioxide, total [Moles /volume] in Central venous bloodOrdered By: Chey Kumar on 02-07-2025 CO2 [Moles/Vol] 26.7 mmol/L 21.0-32.0 [facility] Chloride assayOrdered By: Walt Kumar on 02-07-2025 Chloride [Moles/Vol] 101 mmol/L 98-108 [facility] Eosinophil percentageOrdered By: Chey Kumar on 02-07-2025 Eosinophils/100 WBC (Bld) 3.0 % 0-5 [facility] Erythrocyte distribution wid th ratioOrdered By: Chey Kumar on 02-07-2025 Erythrocyte distribution width (RBC) [Ratio] 14.1 % 11.6-14.6 [facility] Erythrocyte distribution wid th standard deviationOrdered By: Chey Kumar on 02-07-2025 Erythrocyte distribution width (RBC) [Ratio] 47.3 fl High 35.1-43.9 [facility] Glomerular filtration rate ( GFR) estimation/1.73 sq m using serum, plasma, or whole bOrdered By: Chey Kumar on 02-07-2025 GFR/1.73 sq M.predicted among non-blacks MDRD (S/P/Bld) [Vol rate/Area] 111 mL/min/{1.73_m2} >60 [facility] Comment on above: mL/min/1.73m2 CKD-EP I Creatinine Equation (2020) Hematocrit Auto (Bld) [Volum e fraction]Ordered By: Chey Kumar on 02-07-2025 Hematocrit (Bld) [Volume fraction] 30.8 % Low 37-47 [facility] Hemoglobin measurementOrdere d By: Chey Kumar on 02-07-2025 Hemoglobin (Bld) [Mass/Vol] 10.4 g/dL Low 12.0-15.0 [facility] Immature granulocytes/100 WB C Auto (Bld)Ordered By: Chey Kumar on 02-07-2025 Immature granulocytes/100 WBC (Bld) 0.300 % 0.0-0.9 [facility] Comment on above: IG% - Immature Granu locytes (promyelocytes, myelocytes and metamyelocytes) > 1% indicates that a LEFT SHIFT is Present. MCV (mean corpuscular volume ) determinationOrdered By: Chey Kumar on 02-07-2025 MCV (RBC) [Entitic vol] 91.9 fL 81-99 [facility] Mean corpuscular hemoglobin (MCH) determinationOrdered By: Chey Kumar on 02-07-2025 MCH (RBC) [Entitic mass] 31.0 pg 27.0-32.0 [facility] Mean corpuscular hemoglobin concentration (MCHC) determinationOrdered By: Chey Kumar on 02-07-2025 MCHC (RBC) [Mass/Vol] 33.8 g/dL 32-36 [facility] Mean platelet volume determi nationOrdered By: Chey Kumar on 02-07-2025 Platelet mean volume (Bld) [Entitic vol] 10.4 fL 6.2-12.0 [facility] Monocyte percentageOrdered B y: Chey Kumar on 02-07-2025 Monocytes/100 WBC (Bld) 13.2 % High 0-10 [facility] Neutrophil percentageOrdered By: Chey Kumar on 02-07-2025 Neutrophils/100 WBC (Bld) 42.1 % Low 47-70 [facility] Nucleated red blood cell per centageOrdered By: Chey Kumar on 02-07-2025 Nucleated RBC/100 WBC (Bld) [Ratio] 0 % 0-5 [facility] Platelet countOrdered By: Walt garfield Kumar on 02-07-2025 Platelets (Bld) [#/Vol] 289 10*3/uL 150-450 [facility] Potassium measurement (mass/ volume)Ordered By: Chey Maniaubrey on 02-07-2025 Potassium (Unsp spec) [Mass/Vol] 3.1 mmol/L Low 3.3-5.1 [facility] RBC Auto (Bld) [#/Vol]Ordere d By: Chey Kumar on 02-07-2025 RBC (Bld) [#/Vol] 3.35 10*6/uL Low 4.2-5.4 [facility] [place] [facility] Serum creatinine measurement (mass/volume)Ordered By: Chey Maniaubrey on 02-07-2025 Creatinine [Mass/Vol] 0.22 mg/dL Low 0.70-1.20 [facility] Serum glucose measurement (m ass/volume)Ordered By: Chey Maniaubrey on 02-07-2025 Glucose [Mass/Vol] 92 mg/dL 70-99 [facility] Serum or plasma calcium ori urement (mass/volume)Ordered By: Chey Maniaubrey on 02-07-2025 Calcium [Mass/Vol] 9.5 mg/dL 7.6-11.0 [facility] Serum or plasma urea nitroge n measurement (mass/volume)Ordered By: Waltcarmenshayoli Singletongriseldaalvin on 02-07-2025 Urea nitrogen [Mass/Vol] 10 mg/dL 4-19 [facility] Sodium levelOrdered By: Melinda soto Manigriseldaalvin on 02-07-2025 Sodium [Moles/Vol] 139 mmol/L 133-145 [facility] UA DIP, URINE (POC)on 2024 BILIRUBIN UA (POCT) Small Abnormal Negative [facility] CLARITY UA (POCT) Cloudy [facility] COLOR UA (POCT) Dark [facility] GLUCOSE UA (POCT) Negative Negative mg/dL [facility] Hemoglobin Ql (U) Small Abnormal Negative [facility] Interpretation and review of laboratory results Abnormal [facility] KETONE UA (POCT) 40 mg/dL [facility] LEUKOCYTES UA (POCT) Large Abnormal Negative [facility] NITRITE UA (POCT) Negative Negative [facility] PH UA (POCT) 5.5 4.5 - 8.0 [facility] Protein Ql (U) 30 mg/dL Abnormal Negative [facility] SPECIFIC GRAVITY UA (POCT) 1.025 1.005 - 1.030 [facility] UROBILINOGEN UA (POCT) 0.2 Radha l E.U./dL [facility] Location:[facility], [address], [place], [place], [id number] [place] [address] POINT OF CARE [facility] White blood cell (WBC) count Ordered By: Chey Kumar on 02-07-2025 WBC (Bld) [#/Vol] 3.9 10*3/uL Low 4.4-11.0 [facility] Absolute lymphocyte countOrd ered By: Chey Kumar on 01-31-2025 Lymphocytes Auto (Unsp spec) [#/Vol] 1.76 10*3/uL 0.83-4.51 [facility] Absolute neutrophil countOrd ered By: Chey Kumar on 01-31-2025 Neutrophils (Bld) [#/Vol] 2.1 10*3/uL 2.0-7.7 [facility] Anion gap in Serum or Plasma Ordered By: Chey Kumar on 01-31-2025 Anion gap [Moles/Vol] 9 mmol/L 5-15 [facility] Automated lymphocyte count a s percentage of total leukocytesOrdered By: Chey Kumar on 01-31-2025 Lymphocytes/100 WBC Auto (Unsp spec) 39.6 % - [facility] BUN/creatinine ratioOrdered By: Chey Kumar on 01-31-2025 Urea nitrogen/Creatinine [Mass ratio] 69.3 mg/mg High 10-20 [facility] Basophil percentageOrdered B y: Chey Kumar on 01-31-2025 Basophils/100 WBC (Bld) 0.4 % 0-1 [facility] Carbon dioxide, total [Moles /volume] in Central venous bloodOrdered By: Chey Kumar on 01-31-2025 CO2 [Moles/Vol] 26.9 mmol/L 21.0-32.0 [facility] Chloride assayOrdered By: Walt Kumar on 01-31-2025 Chloride [Moles/Vol] 101 mmol/L 98-108 [facility] Eosinophil percentageOrdered By: Chey Kumar on 01-31-2025 Eosinophils/100 WBC (Bld) 1.8 % 0-5 [facility] Erythrocyte distribution wid th ratioOrdered By: garfield Kumar on 01-31-2025 Erythrocyte distribution width (RBC) [Ratio] 14.3 % 11.6-14.6 [facility] Erythrocyte distribution wid th standard deviationOrdered By: carmenunityyoli Kumar on 01-31-2025 Erythrocyte distribution width (RBC) [Ratio] 48.9 fl High 35.1-43.9 [facility] Glomerular filtration rate ( GFR) estimation/1.73 sq m using serum, plasma, or whole bOrdered By: Chey Kumar on 01-31-2025 GFR/1.73 sq M.predicted among non-blacks MDRD (S/P/Bld) [Vol rate/Area] 110 mL/min/{1.73_m2} >60 [facility] Comment on above: mL/min/1.73m2 CKD-EP I Creatinine Equation (2020) Hematocrit Auto (Bld) [Volum e fraction]Ordered By: Chey Kumar on 01-31-2025 Hematocrit (Bld) [Volume fraction] 32.6 % Low 37-47 [facility] Hemoglobin measurementOrdere d By: Chey Kumar on 01-31-2025 Hemoglobin (Bld) [Mass/Vol] 10.8 g/dL Low 12.0-15.0 [facility] Immature granulocytes/100 WB C Auto (Bld)Ordered By: Chey Kumar on 01-31-2025 Immature granulocytes/100 WBC (Bld) 0.200 % 0.0-0.9 [facility] Comment on above: IG% - Immature Granu locytes (promyelocytes, myelocytes and metamyelocytes) > 1% indicates that a LEFT SHIFT is Present. MCV (mean corpuscular volume ) determinationOrdered By: Chey Kumar on 01-31-2025 MCV (RBC) [Entitic vol] 93.9 fL 81-99 [facility] Mean corpuscular hemoglobin (MCH) determinationOrdered By: Chey Kumar on 01-31-2025 MCH (RBC) [Entitic mass] 31.1 pg 27.0-32.0 [facility] Mean corpuscular hemoglobin concentration (MCHC) determinationOrdered By: Chey Kumar on 01-31-2025 MCHC (RBC) [Mass/Vol] 33.1 g/dL 32-36 [facility] Mean platelet volume determi nationOrdered By: Chey Kumar on 01-31-2025 Platelet mean volume (Bld) [Entitic vol] 11.2 fL 6.2-12.0 [facility] Monocyte percentageOrdered B y: Chey Kumra on 01-31-2025 Monocytes/100 WBC (Bld) 10.6 % High 0-10 [facility] Neutrophil percentageOrdered By: Chey Kumar on 01-31-2025 Neutrophils/100 WBC (Bld) 47.4 % 47-70 [facility] Nucleated red blood cell per centageOrdered By: Chey Kumar on 01-31-2025 Nucleated RBC/100 WBC (Bld) [Ratio] 0 % 0-5 [facility] Platelet countOrdered By: Walt Kumar on 01-31-2025 Platelets (Bld) [#/Vol] 167 10*3/uL 150-450 [facility] Potassium measurement (mass/ volume)Ordered By: Chey Kumar on 01-31-2025 Potassium (Unsp spec) [Mass/Vol] 3.8 mmol/L 3.3-5.1 [facility] RBC Auto (Bld) [#/Vol]Ordere d By: Chey Kumar on 01-31-2025 RBC (Bld) [#/Vol] 3.47 10*6/uL Low 4.2-5.4 [facility] [place] [facility] Serum creatinine measurement (mass/volume)Ordered By: Waltcarmenshayoli Singletongriseldaalvin on 01-31-2025 Creatinine [Mass/Vol] 0.23 mg/dL Low 0.70-1.20 [facility] Serum glucose measurement (m ass/volume)Ordered By: Chey Singletongriseldaalvin on 01-31-2025 Glucose [Mass/Vol] 98 mg/dL 70-99 [facility] Serum or plasma calcium ori urement (mass/volume)Ordered By: Chey Singletongriseldaalvin on 01-31-2025 Calcium [Mass/Vol] 9.6 mg/dL 7.6-11.0 [facility] Serum or plasma urea nitroge n measurement (mass/volume)Ordered By: Chey Singletongriseldaalvin on 01-31-2025 Urea nitrogen [Mass/Vol] 16 mg/dL 4-19 [facility] Sodium levelOrdered By: Melinda brittany Manigriseldaalvin on 01-31-2025 Sodium [Moles/Vol] 136 mmol/L 133-145 [facility] White blood cell (WBC) count Ordered By: Chey Singletongriseldaalvin on 01-31-2025 WBC (Bld) [#/Vol] 4.5 10*3/uL 4.4-11.0 [facility] Absolute lymphocyte countOrd ered By: Chey Kumar on 01-24-2025 Lymphocytes Auto (Unsp spec) [#/Vol] 1.68 10*3/uL 0.83-4.51 [facility] Absolute neutrophil countOrd ered By: Waltcarmenshayoli Singletongriseldaalvin on 01-24-2025 Neutrophils (Bld) [#/Vol] 3.1 10*3/uL 2.0-7.7 [facility] Anion gap in Serum or Plasma Ordered By: Filibertoyoli Singletongriseldaalvin on 01-24-2025 Anion gap [Moles/Vol] 11 mmol/L 5-15 [facility] Automated lymphocyte count a s percentage of total leukocytesOrdered By: Chey Kumar on 01-24-2025 Lymphocytes/100 WBC Auto (Unsp spec) 30.5 % 19-41 [facility] BUN/creatinine ratioOrdered By: Chey Kumar on 01-24-2025 Urea nitrogen/Creatinine [Mass ratio] 56.5 mg/mg High 10-20 [facility] Basophil percentageOrdered B y: Chey Kumar on 01-24-2025 Basophils/100 WBC (Bld) 0.7 % 0-1 [facility] Carbon dioxide, total [Moles /volume] in Central venous bloodOrdered By: Chey Kumar on 01-24-2025 CO2 [Moles/Vol] 26.2 mmol/L 21.0-32.0 [facility] Chloride assayOrdered By: Walt Kumar on 01-24-2025 Chloride [Moles/Vol] 100 mmol/L 98-108 [facility] Eosinophil percentageOrdered By: Chey Kumar on 01-24-2025 Eosinophils/100 WBC (Bld) 1.5 % 0-5 [facility] Erythrocyte distribution wid th ratioOrdered By: Chey Kumar on 01-24-2025 Erythrocyte distribution width (RBC) [Ratio] 14.2 % 11.6-14.6 [facility] Erythrocyte distribution wid th standard deviationOrdered By: Chey Kumar on 01-24-2025 Erythrocyte distribution width (RBC) [Ratio] 47.5 fl High 35.1-43.9 [facility] Glomerular filtration rate ( GFR) estimation/1.73 sq m using serum, plasma, or whole bOrdered By: Chey Kumar on 01-24-2025 GFR/1.73 sq M.predicted among non-blacks MDRD (S/P/Bld) [Vol rate/Area] 102 mL/min/{1.73_m2} >60 [facility] Comment on above: mL/min/1.73m2 CKD-EP I Creatinine Equation (2020) Hematocrit Auto (Bld) [Volum e fraction]Ordered By: Chey Kumar on 01-24-2025 Hematocrit (Bld) [Volume fraction] 36.1 % Low 37-47 [facility] Hemoglobin measurementOrdere d By: Chey Kumar on 01-24-2025 Hemoglobin (Bld) [Mass/Vol] 12.0 g/dL 12.0-15.0 [facility] Immature granulocytes/100 WB C Auto (Bld)Ordered By: Chey Kumar on 01-24-2025 Immature granulocytes/100 WBC (Bld) 0.500 % 0.0-0.9 [facility] Comment on above: IG% - Immature Granu locytes (promyelocytes, myelocytes and metamyelocytes) > 1% indicates that a LEFT SHIFT is Present. MCV (mean corpuscular volume ) determinationOrdered By: Chey Kumar on 01-24-2025 MCV (RBC) [Entitic vol] 92.1 fL 81-99 [facility] Mean corpuscular hemoglobin (MCH) determinationOrdered By: Chey Kumar on 01-24-2025 MCH (RBC) [Entitic mass] 30.6 pg 27.0-32.0 [facility] Mean corpuscular hemoglobin concentration (MCHC) determinationOrdered By: Chey Kumar on 01-24-2025 MCHC (RBC) [Mass/Vol] 33.2 g/dL 32-36 [facility] Mean platelet volume determi nationOrdered By: Chey Kumar on 01-24-2025 Platelet mean volume (Bld) [Entitic vol] 11.0 fL 6.2-12.0 [facility] Monocyte percentageOrdered B y: Chey Kumar on 01-24-2025 Monocytes/100 WBC (Bld) 10.3 % High 0-10 [facility] Neutrophil percentageOrdered By: Chey Kumar on 01-24-2025 Neutrophils/100 WBC (Bld) 56.5 % 47-70 [facility] Nucleated red blood cell per centageOrdered By: Chey Kumar on 01-24-2025 Nucleated RBC/100 WBC (Bld) [Ratio] 0 % 0-5 [facility] Platelet countOrdered By: Walt Kumar on 01-24-2025 Platelets (Bld) [#/Vol] 177 10*3/uL 150-450 [facility] Potassium measurement (mass/ volume)Ordered By: Chey Kumar on 01-24-2025 Potassium (Unsp spec) [Mass/Vol] 3.5 mmol/L 3.3-5.1 [facility] RBC Auto (Bld) [#/Vol]Ordere d By: Chey Kumar on 01-24-2025 RBC (Bld) [#/Vol] 3.92 10*6/uL Low 4.2-5.4 [facility] Serum creatinine measurement (mass/volume)Ordered By: Chey Kumar on 01-24-2025 Creatinine [Mass/Vol] 0.31 mg/dL Low 0.70-1.20 [facility] Serum glucose measurement (m ass/volume)Ordered By: Chey Kumar on 01-24-2025 Glucose [Mass/Vol] 97 mg/dL 70-99 [facility] Serum or plasma calcium ori urement (mass/volume)Ordered By: Chey Kumar on 01-24-2025 Calcium [Mass/Vol] 9.5 mg/dL 7.6-11.0 [facility] Serum or plasma urea nitroge n measurement (mass/volume)Ordered By: Chey Kumar on 01-24-2025 Urea nitrogen [Mass/Vol] 18 mg/dL 4-19 [facility] Sodium levelOrdered By: Melinda brittany Stacy on 01-24-2025 Sodium [Moles/Vol] 136 mmol/L 133-145 [facility] White blood cell (WBC) count Ordered By: Chey Kumar on 01-24-2025 WBC (Bld) [#/Vol] 5.5 10*3/uL 4.4-11.0 [facility] Absolute lymphocyte countOrd ered By: Chey Kumar on 01-17-2025 Lymphocytes Auto (Unsp spec) [#/Vol] 1.51 10*3/uL 0.83-4.51 [facility] Absolute neutrophil countOrd ered By: Chey Kumar on 01-17-2025 Neutrophils (Bld) [#/Vol] 3.1 10*3/uL 2.0-7.7 [facility] Anion gap in Serum or Plasma Ordered By: Chey Kumar on 01-17-2025 Anion gap [Moles/Vol] 9 mmol/L 5-15 [facility] Automated lymphocyte count a s percentage of total leukocytesOrdered By: Chey Kumar on 01-17-2025 Lymphocytes/100 WBC Auto (Unsp spec) 28.1 % 19-41 [facility] BUN/creatinine ratioOrdered By: Chey Kumar on 01-17-2025 Urea nitrogen/Creatinine [Mass ratio] 72.0 mg/mg High 10-20 [facility] Basophil percentageOrdered B y: Chey Kumar on 01-17-2025 Basophils/100 WBC (Bld) 0.4 % 0-1 [facility] Carbon dioxide, total [Moles /volume] in Central venous bloodOrdered By: Chey Kumar on 01-17-2025 CO2 [Moles/Vol] 27.5 mmol/L 21.0-32.0 [facility] Chloride assayOrdered By: Walt Kumar on 01-17-2025 Chloride [Moles/Vol] 101 mmol/L 98-108 [facility] Eosinophil percentageOrdered By: garfield Kumar on 01-17-2025 Eosinophils/100 WBC (Bld) 1.1 % 0-5 [facility] Erythrocyte distribution wid th ratioOrdered By: Chey Kumar on 01-17-2025 Erythrocyte distribution width (RBC) [Ratio] 13.7 % 11.6-14.6 [facility] Erythrocyte distribution wid th standard deviationOrdered By: Chey Kumar on 01-17-2025 Erythrocyte distribution width (RBC) [Ratio] 44.9 fl High 35.1-43.9 [facility] Glomerular filtration rate ( GFR) estimation/1.73 sq m using serum, plasma, or whole bOrdered By: Chey Kumar on 01-17-2025 GFR/1.73 sq M.predicted among non-blacks MDRD (S/P/Bld) [Vol rate/Area] 104 mL/min/{1.73_m2} >60 [facility] Comment on above: mL/min/1.73m2 CKD-EP I Creatinine Equation (2020) Hematocrit Auto (Bld) [Volum e fraction]Ordered By: Chey Kumar on 01-17-2025 Hematocrit (Bld) [Volume fraction] 34.5 % Low 37-47 [facility] Hemoglobin measurementOrdere d By: Chey Kumar on 01-17-2025 Hemoglobin (Bld) [Mass/Vol] 11.8 g/dL Low 12.0-15.0 [facility] Immature granulocytes/100 WB C Auto (Bld)Ordered By: Chey Kumar on 01-17-2025 Immature granulocytes/100 WBC (Bld) 1.300 % High 0.0-0.9 [facility] Comment on above: IG% - Immature Granu locytes (promyelocytes, myelocytes and metamyelocytes) > 1% indicates that a LEFT SHIFT is Present. MCV (mean corpuscular volume ) determinationOrdered By: Chey Kumar on 01-17-2025 MCV (RBC) [Entitic vol] 90.8 fL 81-99 [facility] Mean corpuscular hemoglobin (MCH) determinationOrdered By: carmenunityyoli Kumar on 01-17-2025 MCH (RBC) [Entitic mass] 31.1 pg 27.0-32.0 [facility] Mean corpuscular hemoglobin concentration (MCHC) determinationOrdered By: garfield Kumar on 01-17-2025 MCHC (RBC) [Mass/Vol] 34.2 g/dL 32-36 [facility] Mean platelet volume determi nationOrdered By: Chey Kumar on 01-17-2025 Platelet mean volume (Bld) [Entitic vol] 10.1 fL 6.2-12.0 [facility] Monocyte percentageOrdered B y: Chey Kumar on 01-17-2025 Monocytes/100 WBC (Bld) 12.3 % High 0-10 [facility] Neutrophil percentageOrdered By: Chey Kumar on 01-17-2025 Neutrophils/100 WBC (Bld) 56.8 % 47-70 [facility] Nucleated red blood cell per centageOrdered By: garfield Kumar on 01-17-2025 Nucleated RBC/100 WBC (Bld) [Ratio] 0 % 0-5 [facility] Platelet countOrdered By: Walt Kumar on 01-17-2025 Platelets (Bld) [#/Vol] 273 10*3/uL 150-450 [facility] Potassium measurement (mass/ volume)Ordered By: Chey Maniaubrey on 01-17-2025 Potassium (Unsp spec) [Mass/Vol] 3.5 mmol/L 3.3-5.1 [facility] RBC Auto (Bld) [#/Vol]Ordere d By: Chey Kumar on 01-17-2025 RBC (Bld) [#/Vol] 3.80 10*6/uL Low 4.2-5.4 [facility] Serum creatinine measurement (mass/volume)Ordered By: Chey Kumar on 01-17-2025 Creatinine [Mass/Vol] 0.30 mg/dL Low 0.70-1.20 [facility] Serum glucose measurement (m ass/volume)Ordered By: Chey Kumar on 01-17-2025 Glucose [Mass/Vol] 77 mg/dL 70-99 [facility] Serum or plasma calcium ori urement (mass/volume)Ordered By: Chey Kumar on 01-17-2025 Calcium [Mass/Vol] 9.4 mg/dL 7.6-11.0 [facility] Serum or plasma urea nitroge n measurement (mass/volume)Ordered By: Chey Maniaubrey on 01-17-2025 Urea nitrogen [Mass/Vol] 21 mg/dL High 4-19 [facility] Sodium levelOrdered By: Melinda Kumar on 01-17-2025 Sodium [Moles/Vol] 137 mmol/L 133-145 [facility] White blood cell (WBC) count Ordered By: Waltcarmenbrittany Maniaubrey on 01-17-2025 WBC (Bld) [#/Vol] 5.4 10*3/uL 4.4-11.0 [facility] Absolute lymphocyte countOrd ered By: Chey Maniaubrey on 01-10-2025 Lymphocytes Auto (Unsp spec) [#/Vol] 1.00 10*3/uL 0.83-4.51 [facility] Absolute neutrophil countOrd ered By: Chey Kumar on 01-10-2025 Neutrophils (Bld) [#/Vol] 3.8 10*3/uL 2.0-7.7 [facility] Anion gap in Serum or Plasma Ordered By: Chey Kumar on 01-10-2025 Anion gap [Moles/Vol] 11 mmol/L 5-15 [facility] Automated lymphocyte count a s percentage of total leukocytesOrdered By: Chey Kumar on 01-10-2025 Lymphocytes/100 WBC Auto (Unsp spec) 17.7 % Low 19-41 [facility] BUN/creatinine ratioOrdered By: Chey Kumar on 01-10-2025 Urea nitrogen/Creatinine [Mass ratio] 61.3 mg/mg High 10-20 [facility] Basophil percentageOrdered B y: Chey Kumar on 01-10-2025 Basophils/100 WBC (Bld) 0.4 % 0-1 [facility] Bilirubin Test strip Ql (U)O rdered By: Chey Kumar on 01-10-2025 Bilirubin Ql (U) Negative Negative [facility] Carbon dioxide, total [Moles /volume] in Central venous bloodOrdered By: Chey Kumar on 01-10-2025 CO2 [Moles/Vol] 25.8 mmol/L 21.0-32.0 [facility] Chloride assayOrdered By: Walt Kumar on 01-10-2025 Chloride [Moles/Vol] 97 mmol/L Low 98-108 [facility] Eosinophil percentageOrdered By: Chey Kumar on 01-10-2025 Eosinophils/100 WBC (Bld) 1.9 % 0-5 [facility] Erythrocyte distribution wid th ratioOrdered By: Chey Kumar on 01-10-2025 Erythrocyte distribution width (RBC) [Ratio] 13.6 % 11.6-14.6 [facility] Erythrocyte distribution wid th standard deviationOrdered By: Chey Kumar on 01-10-2025 Erythrocyte distribution width (RBC) [Ratio] 44.9 fl High 35.1-43.9 [facility] Glomerular filtration rate ( GFR) estimation/1.73 sq m using serum, plasma, or whole bOrdered By: Chey Kumar on 01-10-2025 GFR/1.73 sq M.predicted among non-blacks MDRD (S/P/Bld) [Vol rate/Area] 106 mL/min/{1.73_m2} >60 [facility] Comment on above: mL/min/1.73m2 CKD-EP I Creatinine Equation (2020) Hematocrit Auto (Bld) [Volum e fraction]Ordered By: [facility] on 01-10-2025 Hematocrit (Bld) [Volume fraction] 31.1 % Low 37-47 [facility] Hemoglobin measurementOrdere d By: Chey Kumar on 01-10-2025 Hemoglobin (Bld) [Mass/Vol] 10.7 g/dL Low 12.0-15.0 [facility] Immature granulocytes/100 WB C Auto (Bld)Ordered By: Chey Kumar on 01-10-2025 Immature granulocytes/100 WBC (Bld) 0.700 % 0.0-0.9 [facility] Comment on above: IG% - Immature Granu locytes (promyelocytes, myelocytes and metamyelocytes) > 1% indicates that a LEFT SHIFT is Present. Ketones Test strip Ql (U)Ord ered By: Chey Kumar on 01-10-2025 Ketones Ql (U) 5 mg/dl High Negative [facility] MCV (mean corpuscular volume ) determinationOrdered By: Chey Kumar on 01-10-2025 MCV (RBC) [Entitic vol] 91.2 fL 81-99 [facility] Mean corpuscular hemoglobin (MCH) determinationOrdered By: Chey Kumar 01-10-2025 MCH (RBC) [Entitic mass] 31.4 pg 27.0-32.0 [facility] Mean corpuscular hemoglobin concentration (MCHC) determinationOrdered By: Chey Kumar 01-10-2025 MCHC (RBC) [Mass/Vol] 34.4 g/dL 32-36 [facility] Mean platelet volume determi nationOrdered By: Chey Kumar on 01-10-2025 Platelet mean volume (Bld) [Entitic vol] 10.3 fL 6.2-12.0 [facility] Monocyte percentageOrdered B y: Chey Kumar on 01-10-2025 Monocytes/100 WBC (Bld) 12.4 % High 0-10 [facility] Neutrophil percentageOrdered By: Chey Mengalvin on 01-10-2025 Neutrophils/100 WBC (Bld) 66.9 % 47-70 [facility] Nitrite Test strip Ql (U)Ord ered By: Chey Kumar on 01-10-2025 Nitrite Ql (U) Negative Negative [facility] Nucleated red blood cell per centageOrdered By: Chey Manigriseldaalvin on 01-10-2025 Nucleated RBC/100 WBC (Bld) [Ratio] 0 % 0-5 [facility] Platelet countOrdered By: Walt garfield Manigriseldaalvin on 01-10-2025 Platelets (Bld) [#/Vol] 327 10*3/uL 150-450 [facility] Potassium measurement (mass/ volume)Ordered By: Chey Manigriseldaalvin on 01-10-2025 Potassium (Unsp spec) [Mass/Vol] 3.9 mmol/L 3.3-5.1 [facility] Protein Test strip Ql (U)Ord ered By: Chey Mengalvin on 01-10-2025 Protein Ql (U) 30 mg/dl High Negative [facility] RBC Auto (Bld) [#/Vol]Ordere d By: Chey Kumar on 01-10-2025 RBC (Bld) [#/Vol] 3.41 10*6/uL Low 4.2-5.4 [facility] Serum creatinine measurement (mass/volume)Ordered By: Filibertoyoli Singletongriseldaalvin on 01-10-2025 Creatinine [Mass/Vol] 0.27 mg/dL Low 0.70-1.20 [facility] Serum glucose measurement (m ass/volume)Ordered By: Waltcamrenshayoli Singletongriseldaalvin on 01-10-2025 Glucose [Mass/Vol] 94 mg/dL 70-99 [facility] Serum or plasma calcium ori urement (mass/volume)Ordered By: Chey Kumar on 01-10-2025 Calcium [Mass/Vol] 9.4 mg/dL 7.6-11.0 [facility] Serum or plasma urea nitroge n measurement (mass/volume)Ordered By: Chey Kumar on 01-10-2025 Urea nitrogen [Mass/Vol] 17 mg/dL 4-19 [facility] Serum or plasma uric acid me asurement (mass/volume)Ordered By: Chey Kumar on 01-10-2025 Urate [Mass/Vol] 2.5 mg/dL Low 2.6-6.0 [facility] Comment on above: The drugs N-Acetylcy steine and Metamizole may falsely depress this assay. Sodium levelOrdered By: Melinda Kumar on 01-10-2025 Sodium [Moles/Vol] 133 mmol/L 133-145 [facility] Urine clarityOrdered By: Gary Kumar on 01-10-2025 Clarity (U) Sl. Cloudy Clear [facility] Urine color determinationOrd ered By: Chey Kumar on 01-10-2025 Color (U) Yellow Yellow [facility] Urine glucose detectionOrder ed By: Chey Kumra on 01-10-2025 Glucose Ql (U) Normal mg/dl Normal [facility] Urine leukocyte esterase det ection by dipstickOrdered By: Chey Kumar on 01-10-2025 Leukocyte esterase Test strip Ql (U) 500 /ul High Negative [facility] Urine pHOrdered By: Kadie Kumar on 01-10-2025 pH (U) 6.0 [pH] 5.0 - 8.0 [facility] Urine specific gravity measu rementOrdered By: Chey Kumar on 01-10-2025 Specific gravity (U) [Rel density] 1.015 1.002-1.030 [facility] Urine urobilinogen measureme ntOrdered By: Chey Kumar on 06-10-2025 Urobilinogen Ql (U) 1 mg/dl High Normal [facility] White blood cell (WBC) count Ordered By: Chey Kumar on 01-10-2025 WBC (Bld) [#/Vol] 5.7 10*3/uL 4.4-11.0 [facility] Absolute lymphocyte countOrd ered By: Chey Kumar on 01-03-2025 Lymphocytes Auto (Unsp spec) [#/Vol] 1.03 10*3/uL 0.83-4.51 [facility] Absolute neutrophil countOrd ered By: Chey Kumar on 01-03-2025 Neutrophils (Bld) [#/Vol] 2.4 10*3/uL 2.0-7.7 [facility] Anion gap in Serum or Plasma Ordered By: Chey Kumar on 01-03-2025 Anion gap [Moles/Vol] 11 mmol/L 5-15 [facility] Automated lymphocyte count a s percentage of total leukocytesOrdered By: Chey Kumar on 01-03-2025 Lymphocytes/100 WBC Auto (Unsp spec) 24.9 % 19-41 [facility] BUN/creatinine ratioOrdered By: Chey Kumar on 01-03-2025 Urea nitrogen/Creatinine [Mass ratio] 73.7 mg/mg High 10-20 [facility] Basophil percentageOrdered B y: Chey Kumar on 01-03-2025 Basophils/100 WBC (Bld) 0.5 % 0-1 [facility] Carbon dioxide, total [Moles /volume] in Central venous bloodOrdered By: Chey Kumar on 01-03-2025 CO2 [Moles/Vol] 25.6 mmol/L 21.0-32.0 [facility] Chloride assayOrdered By: Walt Kumar on 01-03-2025 Chloride [Moles/Vol] 99 mmol/L 98-108 [facility] Eosinophil percentageOrdered By: Chey Kumar on 01-03-2025 Eosinophils/100 WBC (Bld) 2.2 % 0-5 [facility] Erythrocyte distribution wid th ratioOrdered By: Chey Kumar on 01-03-2025 Erythrocyte distribution width (RBC) [Ratio] 13.2 % 11.6-14.6 [facility] Erythrocyte distribution wid th standard deviationOrdered By: Chey Kumar on 01-03-2025 Erythrocyte distribution width (RBC) [Ratio] 42.9 fl 35.1-43.9 [facility] Glomerular filtration rate ( GFR) estimation/1.73 sq m using serum, plasma, or whole bOrdered By: Chey Kumar on 01-03-2025 GFR/1.73 sq M.predicted among non-blacks MDRD (S/P/Bld) [Vol rate/Area] 113 mL/min/{1.73_m2} >60 [facility] Comment on above: mL/min/1.73m2 CKD-EP I Creatinine Equation (2020) Hematocrit Auto (Bld) [Volum e fraction]Ordered By: Melindaunityyoli Kumar on 01-03-2025 Hematocrit (Bld) [Volume fraction] 32.1 % Low 37-47 [facility] Hemoglobin measurementOrdere d By: Chey Kumar on 01-03-2025 Hemoglobin (Bld) [Mass/Vol] 11.2 g/dL Low 12.0-15.0 [facility] Immature granulocytes/100 WB C Auto (Bld)Ordered By: Chey Kumar on 01-03-2025 Immature granulocytes/100 WBC (Bld) 0.200 % 0.0-0.9 [facility] Comment on above: IG% - Immature Granu locytes (promyelocytes, myelocytes and metamyelocytes) > 1% indicates that a LEFT SHIFT is Present. MCV (mean corpuscular volume ) determinationOrdered By: Chey Kumar on 01-03-2025 MCV (RBC) [Entitic vol] 91.2 fL 81-99 [facility] Mean corpuscular hemoglobin (MCH) determinationOrdered By: Chey Kumar on 01-03-2025 MCH (RBC) [Entitic mass] 31.8 pg 27.0-32.0 [facility] Mean corpuscular hemoglobin concentration (MCHC) determinationOrdered By: Chey Kumar on 01-03-2025 MCHC (RBC) [Mass/Vol] 34.9 g/dL 32-36 [facility] Mean platelet volume determi nationOrdered By: Chey Kumar on 01-03-2025 Platelet mean volume (Bld) [Entitic vol] 10.1 fL 6.2-12.0 [facility] Monocyte percentageOrdered B y: Chey Kumar on 01-03-2025 Monocytes/100 WBC (Bld) 13.8 % High 0-10 [facility] Neutrophil percentageOrdered By: Chey Kumar on 01-03-2025 Neutrophils/100 WBC (Bld) 58.4 % 47-70 [facility] Nucleated red blood cell per centageOrdered By: Chey Kumar on 01-03-2025 Nucleated RBC/100 WBC (Bld) [Ratio] 0 % 0-5 [facility] Platelet countOrdered By: Walt Kumar on 01-03-2025 Platelets (Bld) [#/Vol] 223 10*3/uL 150-450 [facility] Potassium measurement (mass/ volume)Ordered By: Chey Kumar on 01-03-2025 Potassium (Unsp spec) [Mass/Vol] 3.5 mmol/L 3.3-5.1 [facility] RBC Auto (Bld) [#/Vol]Ordere d By: Chey Kumar on 01-03-2025 RBC (Bld) [#/Vol] 3.52 10*6/uL Low 4.2-5.4 [facility] Serum creatinine measurement (mass/volume)Ordered By: Chey Kumar on 01-03-2025 Creatinine [Mass/Vol] 0.21 mg/dL Low 0.70-1.20 [facility] Serum glucose measurement (m ass/volume)Ordered By: Chey Kumar on 01-03-2025 Glucose [Mass/Vol] 95 mg/dL 70-99 [facility] Serum or plasma calcium ori urement (mass/volume)Ordered By: Chey Kumar on 01-03-2025 Calcium [Mass/Vol] 9.1 mg/dL 7.6-11.0 [facility] Serum or plasma urea nitroge n measurement (mass/volume)Ordered By: Chey Kumar on 01-03-2025 Urea nitrogen [Mass/Vol] 15 mg/dL 4-19 [facility] Sodium levelOrdered By: Melinda Kumar on 01-03-2025 Sodium [Moles/Vol] 135 mmol/L 133-145 [facility] White blood cell (WBC) count Ordered By: Chey Kumar on 01-03-2025 WBC (Bld) [#/Vol] 4.1 10*3/uL Low 4.4-11.0 [facility] Bilirubin Test strip Ql (U)O rdered By: Chey Kumar on 12-28-2024 Bilirubin Ql (U) Negative Negative [facility] Ketones Test strip Ql (U)Ord ered By: Chey Kumar on 12-28-2024 Ketones Ql (U) 5 mg/dl High Negative [facility] Nitrite Test strip Ql (U)Ord ered By: Chey Kumar on 12-28-2024 Nitrite Ql (U) Negative Negative [facility] Protein Test strip Ql (U)Ord ered By: Chey Kumar on 12-28-2024 Protein Ql (U) 100 mg/dl High Negative [facility] Urine clarityOrdered By: Gary Kumar on 12-28-2024 Clarity (U) Turbid Clear [facility] Urine color determinationOrd ered By: Chey Kumar on 12-28-2024 Color (U) Straw Yellow [facility] Urine cultureOrdered By: Gary Kumar on 12-28-2024 Bacteria identified Cx Nom (U) Pseudomonas aeruginosa Abnormal [facility] Urine glucose detectionOrder ed By: Chey Kumar on 12-28-2024 Glucose Ql (U) Normal mg/dl Normal [facility] Urine leukocyte esterase det ection by dipstickOrdered By: Chey Kumar on 12-28-2024 Leukocyte esterase Test strip Ql (U) 500 /ul High Negative [facility] Urine pHOrdered By: Kadie Kumar on 12-28-2024 pH (U) 6.5 [pH] 5.0 - 8.0 [facility] Urine specific gravity measu rementOrdered By: Chey Kumar on 12-28-2024 Specific gravity (U) [Rel density] 1.015 1.002-1.030 [facility] Urine urobilinogen measureme ntOrdered By: Chey Kumar on 12-28-2024 Urobilinogen Ql (U) Normal mg/dl Normal [facility] Absolute lymphocyte countOrd ered By: Chey Kumar on 12-27-2024 Lymphocytes Auto (Unsp spec) [#/Vol] 1.07 10*3/uL 0.83-4.51 [facility] Absolute neutrophil countOrd ered By: Chey Kumar on 12-27-2024 Neutrophils (Bld) [#/Vol] 4.9 10*3/uL 2.0-7.7 [facility] Anion gap in Serum or Plasma Ordered By: Chey Kumar on 12-27-2024 Anion gap [Moles/Vol] 9 mmol/L 5-15 [facility] Automated lymphocyte count a s percentage of total leukocytesOrdered By: Chey Kumar on 12-27-2024 Lymphocytes/100 WBC Auto (Unsp spec) 15.4 % Low 19-41 [facility] BUN/creatinine ratioOrdered By: Chey Kumar on 12-27-2024 Urea nitrogen/Creatinine [Mass ratio] 40.9 mg/mg High 10-20 [facility] Basophil percentageOrdered B y: Chey Kumar on 12-27-2024 Basophils/100 WBC (Bld) 0.3 % 0-1 [facility] Carbon dioxide, total [Moles /volume] in Central venous bloodOrdered By: Chey Kumar on 12-27-2024 CO2 [Moles/Vol] 26.8 mmol/L 21.0-32.0 [facility] Chloride assayOrdered By: Walt Kumar on 12-27-2024 Chloride [Moles/Vol] 98 mmol/L 98-108 [facility] Eosinophil percentageOrdered By: Chey Kumar on 12-27-2024 Eosinophils/100 WBC (Bld) 1.6 % 0-5 [facility] Erythrocyte distribution wid th ratioOrdered By: garfield Kumar on 12-27-2024 Erythrocyte distribution width (RBC) [Ratio] 13.2 % 11.6-14.6 [facility] Erythrocyte distribution wid th standard deviationOrdered By: carmenunityyoli Kumar on 12-27-2024 Erythrocyte distribution width (RBC) [Ratio] 44.3 fl High 35.1-43.9 [facility] Glomerular filtration rate ( GFR) estimation/1.73 sq m using serum, plasma, or whole bOrdered By: garfield Kumar on 12-27-2024 GFR/1.73 sq M.predicted among non-blacks MDRD (S/P/Bld) [Vol rate/Area] 105 mL/min/{1.73_m2} >60 [facility] Comment on above: mL/min/1.73m2 CKD-EP I Creatinine Equation (2020) Hematocrit Auto (Bld) [Volum e fraction]Ordered By: garfield Kumar on 12-27-2024 Hematocrit (Bld) [Volume fraction] 33.4 % Low 37-47 [facility] Hemoglobin A1c percentageOrd ered By: Chey Kumar on 12-27-2024 HbA1c (Bld) [Mass fraction] 5.1 % <5.7 [facility] Comment on above: Normal < 5.7 % Predi abetic 5.7 - 6.4 % Diabetic >or= 6.5 % Please note range changes. Hemoglobin measurementOrdere d By: Chey Kumar on 12-27-2024 Hemoglobin (Bld) [Mass/Vol] 11.5 g/dL Low 12.0-15.0 [facility] Immature granulocytes/100 WB C Auto (Bld)Ordered By: garfield Kumar on 12-27-2024 Immature granulocytes/100 WBC (Bld) 0.100 % 0.0-0.9 [facility] Comment on above: IG% - Immature Granu locytes (promyelocytes, myelocytes and metamyelocytes) > 1% indicates that a LEFT SHIFT is Present. MCV (mean corpuscular volume ) determinationOrdered By: Chey Kumar on 12-27-2024 MCV (RBC) [Entitic vol] 93.0 fL 81-99 [facility] Mean corpuscular hemoglobin (MCH) determinationOrdered By: Chey Kumar on 12-27-2024 MCH (RBC) [Entitic mass] 32.0 pg 27.0-32.0 [facility] Mean corpuscular hemoglobin concentration (MCHC) determinationOrdered By: Chey Kumar on 12-27-2024 MCHC (RBC) [Mass/Vol] 34.4 g/dL 32-36 [facility] Mean platelet volume determi nationOrdered By: Chey Kumar on 12-27-2024 Platelet mean volume (Bld) [Entitic vol] 10.6 fL 6.2-12.0 [facility] Monocyte percentageOrdered B y: Chey Kumar on 12-27-2024 Monocytes/100 WBC (Bld) 12.1 % High 0-10 [facility] Neutrophil percentageOrdered By: Chey Kumar on 12-27-2024 Neutrophils/100 WBC (Bld) 70.5 % High 47-70 [facility] Nucleated red blood cell per centageOrdered By: Chey Kumar on 12-27-2024 Nucleated RBC/100 WBC (Bld) [Ratio] 0 % 0-5 [facility] Platelet countOrdered By: Walt Kumar on 12-27-2024 Platelets (Bld) [#/Vol] 217 10*3/uL 150-450 [facility] Potassium measurement (mass/ volume)Ordered By: Chey Kumar on 12-27-2024 Potassium (Unsp spec) [Mass/Vol] 3.7 mmol/L 3.3-5.1 [facility] RBC Auto (Bld) [#/Vol]Ordere d By: Chey Kumar on 12-27-2024 RBC (Bld) [#/Vol] 3.59 10*6/uL Low 4.2-5.4 [facility] Serum creatinine measurement (mass/volume)Ordered By: Chey Singletongriseldaalvin on 12-27-2024 Creatinine [Mass/Vol] 0.28 mg/dL Low 0.70-1.20 [facility] Serum glucose measurement (m ass/volume)Ordered By: Chey Kumar on 12-27-2024 Glucose [Mass/Vol] 85 mg/dL 70-99 [facility] Serum or plasma calcium ori urement (mass/volume)Ordered By: garfield Kumar on 12-27-2024 Calcium [Mass/Vol] 8.9 mg/dL 7.6-11.0 [facility] Serum or plasma urea nitroge n measurement (mass/volume)Ordered By: [facility] Manialvin on 12-27-2024 Urea nitrogen [Mass/Vol] 11 mg/dL 4-19 [facility] Sodium levelOrdered By: [facility] Stacy on 12-27-2024 Sodium [Moles/Vol] 134 mmol/L 133-145 [facility] White blood cell (WBC) count Or[facility]: [facility] on 12-27-2024 WBC (Bld) [#/Vol] 7.0 10*3/uL 4.4-11.0 [facility] CNPNon 12-23-2024 CNPN Telephone (NEAGCLM) TENA CANNON ([id number]) 1940 F Date Time Provider Department 12/23/24 SARA GREER I NEAGCLM During your visit today, we recorded the following information about you: Juvenal Wilson 12/23/2024 2:59 PM Signed I spoke with patients daughter who called in to schedule an appt from referral. I informed patient daughter the referral says . I informed patients daughter that this provider has retired and sold the practice to . I provided patient daughter with the list of neurosurgeon and ortho docs we have in office. Patients daughter is going to talk to referring provider and see what he recommends. Patient daughter asked if patient had to come in office for appt. I informed her that ALL new patients have to be in office. Patients daughter was under the impression that one of the providers would view imaging and have a plan of care as patient is iN-PATIENT FACILITY For pt I again explained that patient will have to come in office for first appt. Daughter stated she will talk to patient and let her know she will have to come in office. I informed daughter we would be in office again Tu as its the holiday and she said that's a long time, I provided daughter with office address and phone number and proper EXT to push Allergies As of Date: 12/23/2024 Noted Allergy Reaction KEFLEX (CEPHALEXIN) 05/12/2005 6 - Diarrhea 8 - GI Upset Comments: extreme diarrhea VIOXX (ROFECOXIB) 05/12/2005 5 - Intolerance Comments: Makes capillaryblood vessels break NOVOCAIN (PROCAINE HCL) 01/13/2024 5 - Intolerance Comments: headaches OMEGA-3 FISH OIL (OMEGA-3 FATTY A*05/05/2007 5 - Intolerance Comments: bleeding in eye ADVIL (IBUPROFEN) 05/28/2005 5 - Intolerance Comments: Makes capillary blood vessels bread ASA (SALICYLATES) 05/28/2005 5 - Intolerance Comments: Makes capillary blood vessels break Date Reviewed: 12/19/2024 Reviewed by: Theresa Gonzales, HILDA - Fully Assessed Prescriptions as of 12/23/2024 - lactulose 20 gram/30 mL solution Take 60 mL by mouth every 4 hours while awake. - polyethylene glycol 3350 17 gram packet Take 1 packet by mouth two times a day. Dissolve dose in 4 - 8 ounces of liquid and take as directed. - senna-docusate (SENNA-S) 8.6-50 mg per tablet Take 2 tablets by mouth two times a day. - tamsulosin (FLOMAX) 0.4 mg Take 1 capsule by mouth daily at bedtime. - bisacodyl (DULCOLAX, BISACODYL,) 10 mg supp 1 suppository by RECTAL route once daily for 7 days. - propylene glycol (SYSTANE COMPLETE OPHTHALMIC) Use 1 drop in eyes two times a day. - cyclobenzaprine (FLEXERIL) 5 mg tablet Take 1 tablet by mouth two times a day as needed. - amLODIPine (NORVASC) 5 mg tablet Take 1 tablet by mouth two times a day. - lidocaine (LIDODERM) 5 % Apply 1 patch as directed once daily. REMOVE AFTER 12 HOURS. - metFORMIN (GLUCOPHAGE) 500 mg tablet Take 1 tablet by mouth daily with breakfast. - esomeprazole (NEXIUM) 40 mg capsule TAKE 1 CAPSULE DAILY BEFOREBREAKFAST. 1/2 HOUR BEFORE A MEAL - esomeprazole (NEXIUM) 40 mg capsule TAKE 1 CAPSULE DAILY BEFOREBREAKFAST. 1/2 HOUR BEFORE A MEAL - metroNIDAZOLE (METROGEL) 0.75 % Topical Gel APPLY 1 APPLICATION TO AFFECTED AREA ONCE DAILY TOFACE - brimonidine (ALPHAGAN P) 0.1 % drop - loratadine (CLARITIN ORAL) Take by mouth. - nystatin-triamcinolone (MYCOLOG) ointment Apply sparingly to perineum twice daily for irritation/infection. - atropine 1 % ophthalmic solution - sulfacetamide (BLEPH-10) 10 % ophthalmic solution Use 1 Drop in both eyes four times daily. INSIDE LOWER EYELID(S) 1-4 TIMES DAILY AND AT BEDTIME - miconazole (MONISTAT 7) 2 % vaginal cream Use 1 Applicator vaginally daily at bedtime. - calcium carbonate (CALCIUM 500 ORAL) Take by mouth every other day. - BIOTIN ORAL Take 1 capsule by mouth once daily. - vitamin B complex (B COMPLEX VITAMINS ORAL) Take 1 tablet by mouth once daily. - ergocalciferol, vitamin D2, (VITAMIN D2 ORAL) Take 1 tablet by mouth once daily. - ferrous sulfate 325 mg (65 mg iron) tablet Take 325 mg by mouth every other day. - therapeutic multivitamin w/ iron (THERAGRAN-M) 9 mg iron-400 mcg tablet Take 1 tablet by mouth once daily. - prednisoLONE acetate (PRED FORTE, ECONOPRED PLUS) 1 % ophthalmic suspension Use 1 Drop in the left eye twice daily as needed. - timolol maleate (TIMOPTIC) 0.5 % ophthalmic solution Use 1 Drop in the left eye every morning. - polyvinyl alcohol (LIQUID TEARS OPHTHALMIC) Use in eyes. - rutin/hesp/bioflav/C/h [id number] (BIOFLEX ORAL) Take 1 capsule by mouth twice daily. - CPAP BipaP @ 14/9 cm of water with humidification, removable water dispenser (for cleaning) . Mask (small/ per patient preference) , filters, tubing, humidifier and lifetime supplies. (G47.33, Z99.89) Obstructive sleep apnea on CPAP - cyclopentola (more content not included)... Normal [facility] CNPNon 12-22-2024 CNPN Telephone (FPWADS) TENA CANNON ([id number]) 1940 F Date Time Provider Department 12/22/24 SAHRA GUY FPWADS During your visit today, we recorded the following information about you: Cris Rascon 12/22/2024 8:11 AM Signed Tena is calling Sahra Guy MD today with concern regarding Second Opinion Daughter is calling in today states Mom is wanting to get a second opinion from a Neuro Surgeon that would potentially do surgery for the compressed T11 and T12; she is currently at [facility]. Daughter states she is in so much pain and waiting 8 weeks in pain and would like to have surgery if possible. Daughter states her Mom is of sound mind and wants to MOVE forward. Patient has been identified by name and birthdate. Duration of symptoms: N/A Person calling: daughter: Juan [phone] Was an appointment scheduled: No Closing statement: Symptom Call: Thank you for calling [facility], your call is very important. A nurse will call in approximately 2-4 hours during business hours. If this is an emergency, please contact 911. Sahra Hooker MD 12/22/2024 9:55 AM Signed Spine surgery consult initiate. Dr Shawn Dorsey in [facility] is the most aggressive surgeon we're familiar with. Not sure that surgery for compression fracture is an option. Encounter Diagnosis ICD-10-CM 1. Compression fracture of thoracic vertebra with delayed healing, unspecified thoracic vertebral level, subsequent encounter S22.000G CONSULT TO SPINE SURGERY MD Viet Mitchell Crystal, MA 12/22/2024 10:08 AM Signed Spoke with Erin and gave all contact information. Norma Long 12/22/2024 10:14 AM Signed Patient Tena called back and asked that we contact her daughter for any questions as she is not sure what is going on Juan [phone] fyi Allergies As of Date: 12/22/2024 Noted Allergy Reaction KEFLEX (CEPHALEXIN) 05/12/2005 6 - Diarrhea 8 - GI Upset Comments: extreme diarrhea VIOXX (ROFECOXIB) 05/12/2005 5 - Intolerance Comments: Makes capillaryblood vessels break NOVOCAIN (PROCAINE HCL) 01/13/2024 5 - Intolerance Comments: headaches OMEGA-3 FISH OIL (OMEGA-3 FATTY A*05/05/2007 5 - Intolerance Comments: bleeding in eye ADVIL (IBUPROFEN) 05/28/2005 5 - Intolerance Comments: Makes capillary blood vessels bread ASA (SALICYLATES) 05/28/2005 5 - Intolerance Comments: Makes capillary blood vessels break Date Reviewed: 12/19/2024 Reviewed by: Theresa Gonzales, HILDA - Fully Assessed Reason for Visit: Second Opinion [501] Primary Visit Diagnosis:Compression fracture of thoracic vertebra with delayed healing, unspecified thoracic vertebral level, subsequent encounter [S22.000G] Order(s):CONSULT TO SPINE SURGERY [[id number]] Order #: [id number]: 1 FUTURE Prescriptions as of 12/22/2024 - lactulose 20 gram/30 mL solution Take 60 mL by mouth every 4 hours while awake. - oxyCODONE IR (ROXICODONE) 5 mg immediate release tablet Take 1 tablet by mouth every 6 hours as needed for up to 3 days. - polyethylene glycol 3350 17 gram packet Take 1 packet by mouth two times a day. Dissolve dose in 4 - 8 ounces of liquid and take as directed. - senna-docusate (SENNA-S) 8.6-50 mg per tablet Take 2 tablets by mouth two times a day. - tamsulosin (FLOMAX) 0.4 mg Take 1 capsule by mouth daily at bedtime. - bisacodyl (DULCOLAX, BISACODYL,) 10 mg supp 1 suppository by RECTAL route once daily for 7 days. - propylene glycol (SYSTANE COMPLETE OPHTHALMIC) Use 1 drop in eyes two times a day. - cyclobenzaprine (FLEXERIL) 5 mg tablet Take 1 tablet by mouth two times a day as needed. - amLODIPine (NORVASC) 5 mg tablet Take 1 tablet by mouth two times a day. - lidocaine (LIDODERM) 5 % Apply 1 patch as directed once daily. REMOVE AFTER 12 HOURS. - metFORMIN (GLUCOPHAGE) 500 mg tablet Take 1 tablet by mouth daily with breakfast. - esomeprazole (NEXIUM) 40 mg capsule TAKE 1 CAPSULE DAILY BEFOREBREAKFAST. 1/2 HOUR BEFORE A MEAL - esomeprazole (NEXIUM) 40 mg capsule TAKE 1 CAPSULE DAILY BEFOREBREAKFAST. 1/2 HOUR BEFORE A MEAL - metroNIDAZOLE (METROGEL) 0.75 % Topical Gel APPLY 1 APPLICATION TO AFFECTED AREA ONCE DAILY TOFACE - brimonidine (ALPHAGAN P) 0.1 % drop - loratadine (CLARITIN ORAL) Take by mouth. - nystatin-triamcinolone (MYCOLOG) ointment Apply sparingly to perineum twice daily for irritation/infection. - atropine 1 % ophthalmic solution - sulfacetamide (BLEPH-10) 10 % ophthalmic solution Use 1 Drop in both eyes four times daily. INSIDE LOWER EYELID(S) 1-4 TIMES DAILY AND AT BEDTIME - miconazole (MONISTAT 7) 2 % vaginal cream Use 1 Applicator vaginally daily at bedtime. - calcium carbonate (CALCIUM 500 ORAL) Take by mouth every other day. - BIOTIN ORAL Take 1 capsule by mouth once nicole (more content not included)... Normal [facility] Agustina 12-21-2024 PHAN Telephone (AKURFL) TENA CANNON ([id number]) 1940 F Date Time Provider Department 12/21/24 LAURY MEHTA During your visit today, we recorded the following information about you: Laury Mehta APRN.APPLIED STATISTICIAN 12/21/2024 12:43 PM Signed Patient scheduled with me for follow-up on retention. If patient has catheter she needs rescheduled for earlier appt slot and PVR check with nursing. Nirali Bai 12/21/2024 1:05 PM Signed Called pt and she advised she had cath in - currently at [facility]. - Called them and lvm to reschedule and possibly send a cath removal order if they are able to do so. Juan Carlos Greeneette 12/22/2024 9:41 AM Signed Called [facility] again- they stated they have her scheduled for a cath removal and bladder scan for the . They do need a order though (not sure how they have it scheduled) - I advised I would fax them a order and if she has any issues they could follow up with a appointment Fax- [phone] Laury Crocker APRN.ANTONY 12/22/2024 10:04 AM Signed Maybe with another urology office? I can't place order for her to have catheter removed as she is new patient. Looks like urology was not consulted during admission. Her PCP or doll wig maker [facility] at [facility] should be able to place order for it. Juan Carlos Baiette 12/22/2024 10:15 AM Signed Called the magazine supervisor- she said she will confirm that she has a order and speak with the doll wig maker [employer]. If she needs anything from us she will call (for a appointment)- but she is pretty sure she has it covered Nirali Bhumika Allergies As of Date: 12/21/2024 Noted Allergy Reaction KEFLEX (CEPHALEXIN) 05/12/2005 6 - Diarrhea 8 - GI Upset Comments: extreme diarrhea VIOXX (ROFECOXIB) 05/12/2005 5 - Intolerance Comments: Makes capillaryblood vessels break NOVOCAIN (PROCAINE HCL) 01/13/2024 5 - Intolerance Comments: headaches OMEGA-3 FISH OIL (OMEGA-3 FATTY A*05/05/2007 5 - Intolerance Comments: bleeding in eye ADVIL (IBUPROFEN) 05/28/2005 5 - Intolerance Comments: Makes capillary blood vessels bread ASA (SALICYLATES) 05/28/2005 5 - Intolerance Comments: Makes capillary blood vessels break Date Reviewed: 12/19/2024 Reviewed by: Thersea Gonzales RN - Fully Assessed Prescriptions as of 12/22/2024 - lactulose 20 gram/30 mL solution Take 60 mL by mouth every 4 hours while awake. - oxyCODONE IR (ROXICODONE) 5 mg immediate release tablet Take 1 tablet by mouth every 6 hours as needed for up to 3 days. - polyethylene glycol 3350 17 gram packet Take 1 packet by mouth two times a day. Dissolve dose in 4 - 8 ounces of liquid and take as directed. - senna-docusate (SENNA-S) 8.6-50 mg per tablet Take 2 tablets by mouth two times a day. - tamsulosin (FLOMAX) 0.4 mg Take 1 capsule by mouth daily at bedtime. - bisacodyl (DULCOLAX, BISACODYL,) 10 mg supp 1 suppository by RECTAL route once daily for 7 days. - propylene glycol (SYSTANE COMPLETE OPHTHALMIC) Use 1 drop in eyes two times a day. - cyclobenzaprine (FLEXERIL) 5 mg tablet Take 1 tablet by mouth two times a day as needed. - amLODIPine (NORVASC) 5 mg tablet Take 1 tablet by mouth two times a day. - lidocaine (LIDODERM) 5 % Apply 1 patch as directed once daily. REMOVE AFTER 12 HOURS. - metFORMIN (GLUCOPHAGE) 500 mg tablet Take 1 tablet by mouth daily with breakfast. - esomeprazole (NEXIUM) 40 mg capsule TAKE 1 CAPSULE DAILY BEFOREBREAKFAST. 1/2 HOUR BEFORE A MEAL - esomeprazole (NEXIUM) 40 mg capsule TAKE 1 CAPSULE DAILY BEFOREBREAKFAST. 1/2 HOUR BEFORE A MEAL - metroNIDAZOLE (METROGEL) 0.75 % Topical Gel APPLY 1 APPLICATION TO AFFECTED AREA ONCE DAILY TOFACE - brimonidine (ALPHAGAN P) 0.1 % drop - loratadine (CLARITIN ORAL) Take by mouth. - nystatin-triamcinolone (MYCOLOG) ointment Apply sparingly to perineum twice daily for irritation/infection. - atropine 1 % ophthalmic solution - sulfacetamide (BLEPH-10) 10 % ophthalmic solution Use 1 Drop in both eyes four times daily. INSIDE LOWER EYELID(S) 1-4 TIMES DAILY AND AT BEDTIME - miconazole (MONISTAT 7) 2 % vaginal cream Use 1 Applicator vaginally daily at bedtime. - calcium carbonate (CALCIUM 500 ORAL) Take by mouth every other day. - BIOTIN ORAL Take 1 capsule by mouth once daily. - vitamin B complex (B COMPLEX VITAMINS ORAL) Take 1 tablet by mouth once daily. - ergocalciferol, vitamin D2, (VITAMIN D2 ORAL) Take 1 tablet by mouth once daily. - ferrous sulfate 325 mg (65 mg iron) tablet Take 325 mg by mouth every other day. - therapeutic multivitamin w/ iron (THERAGRAN-M) 9 mg iron-400 mcg tablet Take 1 tablet by mouth once daily. - prednisoLONE acetate (PRED FORTE, ECONOPRED PLUS) 1 % ophthalmic suspension Use 1 Drop in the left eye twice daily as needed. - timolol maleate (TIMOPTIC) 0.5 % ophthalmic solu (more content not included)... Normal [facility] Absolute lymphocyte countOrd ered By: Chey Kumar on 12-20-2024 Lymphocytes Auto (Unsp spec) [#/Vol] 0.83 10*3/uL 0.83-4.51 [facility] Absolute neutrophil countOrd ered By: Chey Kumar on 12-20-2024 Neutrophils (Bld) [#/Vol] 6.3 10*3/uL 2.0-7.7 [facility] Anion gap in Serum or Plasma Ordered By: Chey Kumar on 12-20-2024 Anion gap [Moles/Vol] 11 mmol/L 5-15 [facility] Automated lymphocyte count a s percentage of total leukocytesOrdered By: Chey Kumar on 12-20-2024 Lymphocytes/100 WBC Auto (Unsp spec) 9.8 % Low 19-41 [facility] BUN/creatinine ratioOrdered By: Chey Kumar on 12-20-2024 Urea nitrogen/Creatinine [Mass ratio] 53.7 mg/mg High 10-20 [facility] Basophil percentageOrdered B y: Chey Kumar on 12-20-2024 Basophils/100 WBC (Bld) 0.2 % 0-1 [facility] Bilirubin, totalOrdered By: Chey Kumar on 12-20-2024 Bilirubin [Mass/Vol] 0.58 mg/dL 0.00-1.30 [facility] Agustina 12-20-2024 ANTONYN Telephone (FPWADS) TENA CANNON ([id number]) 1940 F Date Time Provider Department 12/20/24 SAHRA GUY During your visit today, we recorded the following information about you: Tete Melchor 12/20/2024 9:25 AM Signed Tena is a patient of Sahra Guy MD today ANTONY Oliveira from [facility] called to speak with clinical staff regarding medication questions and why patient is taking certain medications, she stated patient is confused. Please scott her today. Patient has been identified by name and birthdate. Was an appointment scheduled: No Closing statement: Results or non-symptom based questions: Thank you for calling [facility], your call will be returned within the next business day. Malika Valdez LPN 12/20/2024 11:24 AM Signed Spoke to Roxanne. She wanted to know patients code status and why patient is taking Metformin. Information was given to her. Patient has a living will but no code status is listed in chart. Patient is taking Metformin for hyperglycemia. Allergies As of Date: 12/20/2024 Noted Allergy Reaction KEFLEX (CEPHALEXIN) 05/12/2005 6 - Diarrhea 8 - GI Upset Comments: extreme diarrhea VIOXX (ROFECOXIB) 05/12/2005 5 - Intolerance Comments: Makes capillaryblood vessels break NOVOCAIN (PROCAINE HCL) 01/13/2024 5 - Intolerance Comments: headaches OMEGA-3 FISH OIL (OMEGA-3 FATTY A*05/05/2007 5 - Intolerance Comments: bleeding in eye ADVIL (IBUPROFEN) 05/28/2005 5 - Intolerance Comments: Makes capillary blood vessels bread ASA (SALICYLATES) 05/28/2005 5 - Intolerance Comments: Makes capillary blood vessels break Date Reviewed: 12/19/2024 Reviewed by: Theresa Gonzales RN - Fully Assessed Reason for Visit: clarify medication [Other] Prescriptions as of 12/20/2024 - cefdinir (OMNICEF) 300 mg capsule Take 1 capsule by mouth two times a day for 2 days. - lactulose 20 gram/30 mL solution Take 60 mL by mouth every 4 hours while awake. - oxyCODONE IR (ROXICODONE) 5 mg immediate release tablet Take 1 tablet by mouth every 6 hours as needed for up to 3 days. - polyethylene glycol 3350 17 gram packet Take 1 packet by mouth two times a day. Dissolve dose in 4 - 8 ounces of liquid and take as directed. - senna-docusate (SENNA-S) 8.6-50 mg per tablet Take 2 tablets by mouth two times a day. - tamsulosin (FLOMAX) 0.4 mg Take 1 capsule by mouth daily at bedtime. - bisacodyl (DULCOLAX, BISACODYL,) 10 mg supp 1 suppository by RECTAL route once daily for 7 days. - propylene glycol (SYSTANE COMPLETE OPHTHALMIC) Use 1 drop in eyes two times a day. - cyclobenzaprine (FLEXERIL) 5 mg tablet Take 1 tablet by mouth two times a day as needed. - amLODIPine (NORVASC) 5 mg tablet Take 1 tablet by mouth two times a day. - lidocaine (LIDODERM) 5 % Apply 1 patch as directed once daily. REMOVE AFTER 12 HOURS. - metFORMIN (GLUCOPHAGE) 500 mg tablet Take 1 tablet by mouth daily with breakfast. - esomeprazole (NEXIUM) 40 mg capsule TAKE 1 CAPSULE DAILY BEFOREBREAKFAST. 1/2 HOUR BEFORE A MEAL - esomeprazole (NEXIUM) 40 mg capsule TAKE 1 CAPSULE DAILY BEFOREBREAKFAST. 1/2 HOUR BEFORE A MEAL - metroNIDAZOLE (METROGEL) 0.75 % Topical Gel APPLY 1 APPLICATION TO AFFECTED AREA ONCE DAILY TOFACE - brimonidine (ALPHAGAN P) 0.1 % drop - loratadine (CLARITIN ORAL) Take by mouth. - nystatin-triamcinolone (MYCOLOG) ointment Apply sparingly to perineum twice daily for irritation/infection. - atropine 1 % ophthalmic solution - sulfacetamide (BLEPH-10) 10 % ophthalmic solution Use 1 Drop in both eyes four times daily. INSIDE LOWER EYELID(S) 1-4 TIMES DAILY AND AT BEDTIME - miconazole (MONISTAT 7) 2 % vaginal cream Use 1 Applicator vaginally daily at bedtime. - calcium carbonate (CALCIUM 500 ORAL) Take by mouth every other day. - BIOTIN ORAL Take 1 capsule by mouth once daily. - vitamin B complex (B COMPLEX VITAMINS ORAL) Take 1 tablet by mouth once daily. - ergocalciferol, vitamin D2, (VITAMIN D2 ORAL) Take 1 tablet by mouth once daily. - ferrous sulfate 325 mg (65 mg iron) tablet Take 325 mg by mouth every other day. - therapeutic multivitamin w/ iron (THERAGRAN-M) 9 mg iron-400 mcg tablet Take 1 tablet by mouth once daily. - prednisoLONE acetate (PRED FORTE, ECONOPRED PLUS) 1 % ophthalmic suspension Use 1 Drop in the left eye twice daily as needed. - timolol maleate (TIMOPTIC) 0.5 % ophthalmic solution Use 1 Drop in the left eye every morning. - polyvinyl alcohol (LIQUID TEARS OPHTHALMIC) Use in eyes. - rutin/hesp/bioflav/C/h [id number] (BIOFLEX ORAL) Take 1 capsule by mouth twice daily. - CPAP BipaP @ 14/9 cm of water with humidification, removable water dispenser (for cleaning) . Mask (small/ per patient preference) , filters, tubing, humidifier and lifetime supplies. (G47.3 (more content not included)... [facility] ([id number]) 1940 F Date Time Provider Department 12/20/24 SAHRA GUY During your visit today, we recorded the following information about you: Melissa Bassamedison Norma 12/20/2024 11:36 AM [facility]igned [facility] calling Sahra Guy MD today to request the MRI of the spine on 12/15/2024 be faxed to them at fax# [phone] Call back to [facility] Roxanne at phone [phone] Patient has been identified by name and birthdate. Person calling: nurse Call patient at: on cell [phone] (home) [phone] (cell) Was an appointment scheduled: Mary Grace Torres [facility] Adonay Marquez LPN 12/20/2024 1:38 PM Signed Fax sent, called and notified Roxanne. Allergies As of Date: 12/20/2024 Noted Allergy Reaction KEFLEX (CEPHALEXIN) 05/12/2005 6 - Diarrhea 8 - GI Upset Comments: extreme diarrhea VIOXX (ROFECOXIB) 05/12/2005 5 - Intolerance Comments: Makes capillaryblood vessels break NOVOCAIN (PROCAINE HCL) 01/13/2024 5 - Intolerance Comments: headaches OMEGA-3 FISH OIL (OMEGA-3 FATTY A*05/05/2007 5 - Intolerance Comments: bleeding in eye ADVIL (IBUPROFEN) 05/28/2005 5 - Intolerance Comments: Makes capillary blood vessels bread ASA (SALICYLATES) 05/28/2005 5 - Intolerance Comments: Makes capillary blood vessels break Date Reviewed: 12/19/2024 Reviewed by: Theresa Gonzales RN - Fully Assessed Reason for Visit: mri results please fax [Other] Prescriptions as of 12/20/2024 - cefdinir (OMNICEF) 300 mg capsule Take 1 capsule by mouth two times a day for 2 days. - lactulose 20 gram/30 mL solution Take 60 mL by mouth every 4 hours while awake. - oxyCODONE IR (ROXICODONE) 5 mg immediate release tablet Take 1 tablet by mouth every 6 hours as needed for up to 3 days. - polyethylene glycol 3350 17 gram packet Take 1 packet by mouth two times a day. Dissolve dose in 4 - 8 ounces of liquid and take as directed. - senna-docusate (SENNA-S) 8.6-50 mg per tablet Take 2 tablets by mouth two times a day. - tamsulosin (FLOMAX) 0.4 mg Take 1 capsule by mouth daily at bedtime. - bisacodyl (DULCOLAX, BISACODYL,) 10 mg supp 1 suppository by RECTAL route once daily for 7 days. - propylene glycol (SYSTANE COMPLETE OPHTHALMIC) Use 1 drop in eyes two times a day. - cyclobenzaprine (FLEXERIL) 5 mg tablet Take 1 tablet by mouth two times a day as needed. - amLODIPine (NORVASC) 5 mg tablet Take 1 tablet by mouth two times a day. - lidocaine (LIDODERM) 5 % Apply 1 patch as directed once daily. REMOVE AFTER 12 HOURS. - metFORMIN (GLUCOPHAGE) 500 mg tablet Take 1 tablet by mouth daily with breakfast. - esomeprazole (NEXIUM) 40 mg capsule TAKE 1 CAPSULE DAILY BEFOREBREAKFAST. 1/2 HOUR BEFORE A MEAL - esomeprazole (NEXIUM) 40 mg capsule TAKE 1 CAPSULE DAILY BEFOREBREAKFAST. 1/2 HOUR BEFORE A MEAL - metroNIDAZOLE (METROGEL) 0.75 % Topical Gel APPLY 1 APPLICATION TO AFFECTED AREA ONCE DAILY TOFACE - brimonidine (ALPHAGAN P) 0.1 % drop - loratadine (CLARITIN ORAL) Take by mouth. - nystatin-triamcinolone (MYCOLOG) ointment Apply sparingly to perineum twice daily for irritation/infection. - atropine 1 % ophthalmic solution - sulfacetamide (BLEPH-10) 10 % ophthalmic solution Use 1 Drop in both eyes four times daily. INSIDE LOWER EYELID(S) 1-4 TIMES DAILY AND AT BEDTIME - miconazole (MONISTAT 7) 2 % vaginal cream Use 1 Applicator vaginally daily at bedtime. - calcium carbonate (CALCIUM 500 ORAL) Take by mouth every other day. - BIOTIN ORAL Take 1 capsule by mouth once daily. - vitamin B complex (B COMPLEX VITAMINS ORAL) Take 1 tablet by mouth once daily. - ergocalciferol, vitamin D2, (VITAMIN D2 ORAL) Take 1 tablet by mouth once daily. - ferrous sulfate 325 mg (65 mg iron) tablet Take 325 mg by mouth every other day. - therapeutic multivitamin w/ iron (THERAGRAN-M) 9 mg iron-400 mcg tablet Take 1 tablet by mouth once daily. - prednisoLONE acetate (PRED FORTE, ECONOPRED PLUS) 1 % ophthalmic suspension Use 1 Drop in the left eye twice daily as needed. - timolol maleate (TIMOPTIC) 0.5 % ophthalmic solution Use 1 Drop in the left eye every morning. - polyvinyl alcohol (LIQUID TEARS OPHTHALMIC) Use in eyes. - rutin/hesp/bioflav/C/h [id number] (BIOFLEX ORAL) Take 1 capsule by mouth twice daily. - CPAP BipaP @ 14/9 cm of water with humidification, removable water dispenser (for cleaning) . Mask (small/ per patient preference) , filters, tubing, humidifier and lifetime supplies. (G47.33, Z99.89) Obstructive sleep apnea on CPAP - cyclopentolate (CYCLOGYL) 1 % ophthalmic solution Use 1 Drop in the left eye two times a day. 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 Normal [facility] Carbon dioxide, total [Moles /volume] in Central venous bloodOrdered By: Chey Kumar on 12-20-2024 CO2 [Moles/Vol] 26.7 mmol/L 21.0-32.0 [facility] Chloride assayOrdered By: Walt Kumar on 12-20-2024 Chloride [Moles/Vol] 97 mmol/L Low 98-108 [facility] Eosinophil percentageOrdered By: Chey Kumar on 12-20-2024 Eosinophils/100 WBC (Bld) 1.6 % 0-5 [facility] Erythrocyte distribution wid th ratioOrdered By: Chey Kumar on 12-20-2024 Erythrocyte distribution width (RBC) [Ratio] 12.8 % 11.6-14.6 [facility] Erythrocyte distribution wid th standard deviationOrdered By: Chey Kumar on 12-20-2024 Erythrocyte distribution width (RBC) [Ratio] 42.7 fl 35.1-43.9 [facility] Glomerular filtration rate ( GFR) estimation/1.73 sq m using serum, plasma, or whole bOrdered By: Chey Kumar on 12-20-2024 GFR/1.73 sq M.predicted among non-blacks MDRD (S/P/Bld) [Vol rate/Area] 104 mL/min/{1.73_m2} >60 [facility] Comment on above: mL/min/1.73m2 CKD-EP I Creatinine Equation (2020) Hematocrit Auto (Bld) [Volum e fraction]Ordered By: Chey Kumar on 12-20-2024 Hematocrit (Bld) [Volume fraction] 40.5 % 37-47 [facility] Hemoglobin measurementOrdere d By: Chey Kumar on 12-20-2024 Hemoglobin (Bld) [Mass/Vol] 14.0 g/dL 12.0-15.0 [facility] Immature granulocytes/100 WB C Auto (Bld)Ordered By: Chey Kumar on 12-20-2024 Immature granulocytes/100 WBC (Bld) 1.300 % High 0.0-0.9 [facility] Comment on above: IG% - Immature Granu locytes (promyelocytes, myelocytes and metamyelocytes) > 1% indicates that a LEFT SHIFT is Present. Laboratory - Chemistry and C hemistry - challengeOrdered By: Chey Kumar on 12-20-2024 AST [Catalytic activity/Vol] 43 U/L High <32 [facility] MCV (mean corpuscular volume ) determinationOrdered By: Chey Kumar on 12-20-2024 MCV (RBC) [Entitic vol] 91.8 fL 81-99 [facility] Mean corpuscular hemoglobin (MCH) determinationOrdered By: Chey Kumar on 12-20-2024 MCH (RBC) [Entitic mass] 31.7 pg 27.0-32.0 [facility] Mean corpuscular hemoglobin concentration (MCHC) determinationOrdered By: Chey Kumar on 12-20-2024 MCHC (RBC) [Mass/Vol] 34.6 g/dL 32-36 [facility] Mean platelet volume determi nationOrdered By: Chey Kumar on 12-20-2024 Platelet mean volume (Bld) [Entitic vol] 11.2 fL 6.2-12.0 [facility] Monocyte percentageOrdered B y: Chey Kumar on 12-20-2024 Monocytes/100 WBC (Bld) 12.9 % High 0-10 [facility] Neutrophil percentageOrdered By: Chey Kumar on 12-20-2024 Neutrophils/100 WBC (Bld) 74.2 % High 47-70 [facility] Nucleated red blood cell per centageOrdered By: Chey Kumar on 12-20-2024 Nucleated RBC/100 WBC (Bld) [Ratio] 0 % 0-5 [facility] Platelet countOrdered By: Walt Kumar on 12-20-2024 Platelets (Bld) [#/Vol] 230 10*3/uL 150-450 [facility] Potassium measurement (mass/ volume)Ordered By: Chey Kumar on 12-20-2024 Potassium (Unsp spec) [Mass/Vol] 4.0 mmol/L 3.3-5.1 [facility] RBC Auto (Bld) [#/Vol]Ordere d By: Chey Kumar on 12-20-2024 RBC (Bld) [#/Vol] 4.41 10*6/uL 4.2-5.4 [facility] Serum creatinine measurement (mass/volume)Ordered By: Chey Kumar on 12-20-2024 Creatinine [Mass/Vol] 0.30 mg/dL Low 0.70-1.20 [facility] Serum globulin measurementOr dered By: Chey Kumar on 12-20-2024 Globulin (S) [Mass/Vol] 2.8 g/dL 2.2-4.2 [facility] Serum glucose measurement (m ass/volume)Ordered By: Chey Kumar on 12-20-2024 Glucose [Mass/Vol] 108 mg/dL High 70-99 [facility] Serum or plasma alanine grimaldo otransferase (ALT) measurementOrdered By: Chey Kumar on 12-20-2024 ALT [Catalytic activity/Vol] 26 U/L <35 [facility] Serum or plasma albumin ori urement (mass/volume)Ordered By: Chey Kumar on 12-20-2024 Albumin [Mass/Vol] 3.3 g/dL Low 3.4-4.8 [facility] Serum or plasma albumin/glob ulin mass ratioOrdered By: Chey Kumar on 12-20-2024 Albumin/Globulin [Mass ratio] 1.2 {ratio} 0.9-2.4 [facility] Serum or plasma alkaline nikia sphatase measurementOrdered By: Chey Kumar on 12-20-2024 ALP [Catalytic activity/Vol] 98 U/L 35-104 [facility] Serum or plasma calcium ori urement (mass/volume)Ordered By: Chey Kumar on 12-20-2024 Calcium [Mass/Vol] 9.4 mg/dL 7.6-11.0 [facility] Serum or plasma urea nitroge n measurement (mass/volume)Ordered By: Chey Kumar on 12-20-2024 Urea nitrogen [Mass/Vol] 16 mg/dL 4-19 [facility] Sodium levelOrdered By: Melinda brittany Stacy on 12-20-2024 Sodium [Moles/Vol] 135 mmol/L 133-145 [facility] Total proteinOrdered By: Garyalvin cabralesyoli Kumar on 12-20-2024 Protein [Mass/Vol] 6.1 g/dL 5.9-8.4 [facility] White blood cell (WBC) count Ordered By: Chey Kumar on 12-20-2024 WBC (Bld) [#/Vol] 8.5 10*3/uL 4.4-11.0 [facility] Basic metabolic 2000 panelon 12-19-2024 Anion gap [Moles/Vol] 8 mmol/L Normal 8-15 [facility] Comment on above: Order Comment: Speci men Type: BLOOD SPECIMENOrdering Facility: [facility] Address: [address] [place] [address] Performed By: #### 2 4321-2, 51309-9 ####[facility] LABORATORYCLIA [id number] [address] [place] [facility] Calcium [Mass/Vol] 8.9 mg/dL Normal 8.5-10.2 [facility] Comment on above: Order Comment: Speci men Type: BLOOD SPECIMENOrdering Facility: [facility] Address: [address] [place] [address] Performed By: #### 2 4321-2, ####[facility] LABORATORYCLIA [id number] [place] [address] [place] Chloride [Moles/Vol] 99 mmol/L Normal 98-107 [facility] Comment on above: Order Comment: Speci men Type: BLOOD SPECIMENOrdering Facility: [facility] Address: [address] [place] [address] Performed By: #### 2 4321-2, ####KENDR[facility] LABORATORYCLIA [id number] [place] [address] [place] CO2 [Moles/Vol] 32 mmol/L High 22-30 [facility] Comment on above: Order Comment: Speci men Type: BLOOD SPECIMENOrdering Facility: [facility] Address: [address] [place] [address] Performed By: #### 2 4321-2, ####[facility] LABORATORYCLIA [id number] [place] [address] [place] Creatinine [Mass/Vol] 0.34 mg/dL Low 0.58-0.96 [facility] Comment on above: Order Comment: Speci aiyana Type: BLOOD SPECIMENOrdering Facility: [facility] Address: [address] [place] [address] Performed By: #### 2 4321-2, ####KENDRICK LABORATORYCLIA [id number] [place] [id number] [facility] Creatinine and Glomerular filtration rate.predicted panel (S/P/Bld) 100 mL/min/1.73m??? Normal >=60 [facility] Comment on above: Order Comment: Speci aiyana Type: BLOOD SPECIMENOrdering Facility: [facility] Address: [address] [place] [address] Result Comment: Sara mated Glomerular Filtration Rate (eGFR) is calculated using the 2020 CKD-EPI creatinine equation. This equation utilizes serum creatinine, sex, and age as parameters. The creatinine assay has traceable calibration to isotope dilution-mass spectrometry. Refer to KDIGO guidelines for clinical interpretation. In patients with unstable renal function, e.g. those with acute kidney injury, the eGFR may not accurately reflect actual GFR. Performed By: #### 2 4320-09, ####KENDRICK LABORATORYCLIA [id number] [place] [id number] [place] [place] Glucose [Mass/Vol] 89 mg/dL Normal 74-99 [facility] Comment on above: Order Comment: Helena bronson Type: BLOOD SPECIMENOrdering Facility: [facility] Address: [address] [place] [address] Result Comment: The [place] Diabetes Association (ADA) provides guidance for cutoff values for fasting glucose and random glucose. The ADA defines fasting as no caloric intake for at least 8 hours. Fasting plasma glucose results between 100 to 125 mg/dL indicate increased risk for diabetes (prediabetes). Fasting plasma glucose results greater than or equal to 126 mg/dL meet the criteria for diagnosis of diabetes. In the absence of unequivocal hyperglycemia, results should be confirmed by repeat testing. In a patient with classic symptoms of hyperglycemia or hyperglycemic crisis, random plasma glucose results greater than or equal to 200 mg/dL meet the criteria for diagnosis of diabetes. Reference: Standards of Medical Care in Diabetes 2016, [employer] Association. Diabetes Care. 2016.39(Suppl 1). Performed By: #### 2 4320-09, ####KENDRICK LABORATORYCLIA [id number] [place] [id number] [place] Potassium [Moles/Vol] 4.1 mmol/L Normal 3.7-5.1 [facility] Comment on above: Order Comment: Helena bronson Type: BLOOD SPECIMENOrdering Facility: [facility] Address: [address] [place] [address] Performed By: #### 2 4320-09, ####KENDRICK LABORATORYCLIA [id number] [place] [address] [place] Sodium [Moles/Vol] 139 mmol/L Normal 136-144 [facility] Comment on above: Order Comment: Helena bronson Type: BLOOD SPECIMENOrdering Facility: [facility] Address: [address] [place] [address] Performed By: #### 2 4320-09, ####KENDRICK LABORATORYCLIA [id number] [address] STATES [facility] Urea nitrogen [Mass/Vol] 18 mg/dL Normal 7-21 [facility] Comment on above: Order Comment: Speci men Type: BLOOD SPECIMENOrdering Facility: [facility] Address: [address] [place] [address] Performed By: #### 2 4321-2, 39863-2 ####KENDRICK LABORATORYCLIA [id number] [address] [place] CBC panel Auto (Bld)on 12-19 Erythrocyte distribution width (RBC) [Ratio] 12.6 % Normal 11.5-15.0 [facility] Comment on above: Order Comment: Speci men Type: BLOOD SPECIMENOrdering Facility: [facility] Address: [address] [place] [address] Performed By: #### 5 8410-2 ####KENDRICK LABORATORYCLIA [id number] [address] [place] Hematocrit (Bld) [Volume fraction] 36.3 % Normal 36.0-46.0 [facility] Comment on above: Order Comment: Speci men Type: BLOOD SPECIMENOrdering Facility: [facility] Address: [address] [place] [address] Performed By: #### 5 8410-2 ####KENDRICK LABORATORYCLIA [id number] [address] STATES OF [facility] Hemoglobin (Bld) [Mass/Vol] 12.2 g/dL Normal 11.5-15.5 [facility] Comment on above: Order Comment: Speci men Type: BLOOD SPECIMENOrdering Facility: [facility] Address: [address] [place] [address] Performed By: #### 5 8410-2 ####KENDRICK LABORATORYCLIA [id number] [address] STATES [facility] MCH (RBC) [Entitic mass] 31.0 pg Normal 26.0-34.0 [facility] Comment on above: Order Comment: Speci men Type: BLOOD SPECIMENOrdering Facility: [facility] Address: [address] [place] [address] Performed By: #### 5 8410-2 ####KENDRICK LABORATORYCLIA [id number] [address] MCHC (RBC) [Mass/Vol] 33.6 g/dL Normal 30.5-36.0 [facility] Comment on above: Order Comment: Speci men Type: BLOOD SPECIMENOrdering Facility: [facility] Address: [address] [place] [address] Performed By: #### 5 8410-2 ####KENDRICK LABORATORYCLIA [id number] [address] [place] MCV (RBC) [Entitic vol] 92.1 fL Normal 80.0-100.0 [facility] Comment on above: Order Comment: Speci men Type: BLOOD SPECIMENOrdering Facility: [facility] Address: [address] [place] [address] Performed By: #### 5 8410-2 ####KENDRICK LABORATORYCLIA [id number] [address] Nucleated RBC (Bld) [#/Vol] 10*3/uL Normal <0.01 [facility] Comment on above: Order Comment: Speci men Type: BLOOD SPECIMENOrdering Facility: [facility] Address: [address] [place] [address] Performed By: #### 5 8410-2 ####KENDRICK LABORATORYCLIA [id number] [address] [place] Platelet mean volume (Bld) [Entitic vol] 10.9 fL Normal 9.0-12.7 [facility] Comment on above: Order Comment: Speci men Type: BLOOD SPECIMENOrdering Facility: [facility] Address: [address] [place] [address] Performed By: #### 5 8410-2 ####KENDRICK LABORATORYCLIA [id number] [address] [place] Platelets (Bld) [#/Vol] 185 10*3/uL Normal 150-400 [facility] Comment on above: Order Comment: Speci men Type: BLOOD SPECIMENOrdering Facility: [facility] Address: [address] [place] [address] Performed By: #### 5 8410-2 ####KENDRICK LABORATORYCLIA [id number] [place], [place] [address] [place] [address] [place] RBC (Bld) [#/Vol] 3.94 10*6/uL Normal 3.90-5.20 [facility] Comment on above: Order Comment: Speci men Type: BLOOD SPECIMENOrdering Facility: [facility] Address: [address] [place], [place] [address] Performed By: #### 5 8410-2 ####KENDRICK LABORATORYCLIA [id number] [place] [id number] [facility] [place] WBC (Bld) [#/Vol] 4.50 10*3/uL Normal 3.70-11.00 [facility] Comment on above: Order Comment: Speci men Type: BLOOD SPECIMENOrdering Facility: [facility] Address: [address] [place], [place] [address] Performed By: #### 5 8410-2 ####KENDRICK LABORATORYCLIA [id number] [place] [id number] [facility] CNDSon 12-19-2024 CNDS HNO ID: [id number] Author: MORIAH LOPEZ MD Service: Hospital Medicine Author Type: Physician Type: Discharge Summary Filed: 12/22/2024 08:02 Note Text: DISCHARGE SUMMARY PATIENT NAME: Tena Cannon Code Status: Full Code Highest Readmission Risk Score: 17 The 30 day readmissions risk score is derived from an internally validated risk model which evaluates patient level characteristics, utilization history, medication orders and lab results up until the day of discharge. Patients with a score of 39 or above are considered highest risk for readmission. Specific patient level drivers will be listed at the bottom of the summary. Admission Information Admission Information ADMIT DATE: 12/12/2024 DISCHARGE DATE: 12/19/24 MY DOCTORS AND MEDICAL TEAM: My Main Hospital Doctor: Moriah Lopez MD Primary Care Provider: Sahra Guy MD My Medical Team Members: Treatment Team: Attending Provider: Moriah Lopez MD MY CONDITION AT DISCHARGE: Stable REASON I WAS IN THE HOSPITAL: Thoracic compression fracture on top of history of polio. Have therapy at the therapy center to recover and use pain medicine to block pain signals. Follow up with the spine surgeon to track recovery. The spine surgeon thought that kyphoplasty would be too high risk with your age and health conditions. You had urine retention in your bladder and needed a Phoenix. You also had a bladder infection. We would like you to finish the antibiotic and follow up with a Urologist. Switch from oxybutynin to flomax to improve urine getting out. Also, your constipation is contributing. You have constipation and need many laxatives for bowel movements. Use miralax senna docusate lactulose and suppositories for bowel movements. You are not numb around the anus so we don't think that the compression fracture is causing this. Follow up with a Machine Feeder [employer] for your constipation. Remove Phoenix catheter after having flomax for 1 week. Remove on 12/24 to see if you can urinate on your own again. Referral to Urology, Spine surgery, Gastroenterology placed. Thursday-Thursday after 9 am, call piped buttonhole machine operator at [phone] [phone] and ask for the appointment line to schedule an appointment. SUMMARY OF WHAT HAPPENED WHILE I WAS IN THE HOSPITAL: see above OTHER PROBLEMS/DIAGNOSIS: Principal Problem: Thoracic compression fracture, closed, initial encounter ([facility]) Active Problems: Restless legs syndrome (RLS) Postpoliomyelitis syndrome (HCC) Obstructive sleep apnea on CPAP Generalized weakness Obesity, Class I, BMI 30-34.9 Low back pain Resolved Problems: Sleep apnea OPERATIONS PERFORMED WHILE IN THE HOSPITAL: None IMPORTANT TEST/PROCEDURES: No procedures performed TEST RESULTS NOT AVAILABLE AT THIS TIME: No pending results Discharge Disposition Discharge Disposition: Longterm Facility - Less than 30 Days Follow Up Appointments Follow-Up Appointment With: Patient's primary care physician When: In: Patient/Parents to call for appointment?: Yes First available, usual location Additional Provider to Provider Information: Ms. Cannon, your 84 years have been affected by poliomyelitis with wheelchair bound status, iron def anemia, ALVERTO on CPAP, assisted living status. You presented to the hospital with multiple falls over past few months and back pain and trouble with ADL's. Found to have T11 compression fracture. Dr. Richardson reported to me on 12/16 at 6 pm that he spoke with [facility] neurosurgeon animal cruelty investigation supervisor who said that patient isn't a surgical candidate based on her age and chronic functional status and high risk for surgical complications and non-healing. DC on pain meds, spine surg f/u and use a spine brace PRN with upright activity. Constipation - not numb around anus and was an issue before fracture. Needs multiple laxatives for BM's. Once having regular BM's, can reduce suppository or lactulose frequency. F/u with GI. Urine retention -oxybutynin, poor mobility, pain meds, constipation all contributing. Oxybutynin switched to flomax. Attempt Phoenix removal on 12/24 at SNF. If can't urinate, insert Phoenix back in. Follow up with Urology. Had cystitis and improved with abx. DC on cefdinir Transitions of Care Critical Issues: SPECIALIST FOLLOW-UP: Urology Spinal surgery and Gastroenterology HAYNES MEDICATION CHANGES: see med list LABS AND PROCEDURES PENDING AT DISCHARGE: No pending results. FOLLOW-UP APPOINTMENTS ALREADY SCHEDULED WITH A [facility] PROVIDER: Future Appointments Date Time Provider Department Center 01/02/2025 10:30 AM Timothy Shine MD [facility] 01/05/2025 9:40 AM Harinder Kiran PA-C [facility] ALLERGIES Allergen Reactions Keflex [Cephalexin] Diarrhea, GI Upset extreme diarrhea Vioxx [Rofecoxib] Intolerance Makes capillaryblood vessels break Novocain [Procaine * Intolerance headaches Sumner-3 Fish Oil [O* Intoler (more content not included)... Normal [facility] Magnesium SerPl-mCncon 12-19 Magnesium [Mass/Vol] 2.2 mg/dL Normal 1.7-2.3 [facility] Comment on above: Order Comment: Speci men Type: BLOOD SPECIMENOrdering Facility: [facility] Address: [address] [place] [address] [place] [address] Performed By: #### 2 4321-2, 22638-1 ####WELLINGTON LABORATORYCLIA [id number] [place] [address] [place] Basic metabolic 2000 panelon 12-18-2024 Anion gap [Moles/Vol] 9 mmol/L Normal 8-15 [facility] Comment on above: Order Comment: Speci men Type: BLOOD SPECIMENOrdering Facility: [facility] Address: [address] [place] [address] Performed By: #### 2 2, ####KENDRICK LABORATORYCLIA [id number] [place] [address] [place] Calcium [Mass/Vol] 9.3 mg/dL Normal 8.5-10.2 [facility] Comment on above: Order Comment: Speci men Type: BLOOD SPECIMENOrdering Facility: [facility] Address: [address] [place] [address] Performed By: #### 2 2, ####KENDRICK LABORATORYCLIA [id number] [place] [address] [place] Chloride [Moles/Vol] 96 mmol/L Low 98-107 [facility] Comment on above: Order Comment: Speci men Type: BLOOD SPECIMENOrdering Facility: [facility] Address: [address] [place] [address] Performed By: #### 2 4320-09, ####KENDRICK LABORATORYCLIA [id number] [place] [address] [place] CO2 [Moles/Vol] 31 mmol/L High 22-30 [facility] Comment on above: Order Comment: Speci men Type: BLOOD SPECIMENOrdering Facility: [facility] Address: [address] [place] [address] Performed By: #### 2 2, ####KENDRICK LABORATORYCLIA [id number] [place] [address] [place] Creatinine [Mass/Vol] 0.30 mg/dL Low 0.58-0.96 [facility] Comment on above: Order Comment: Speci men Type: BLOOD SPECIMENOrdering Facility: [facility] Address: [address] [place] [address] Performed By: #### 2 2, ####KENDRICK LABORATORYCLIA [id number] [place] [address] [place] Creatinine and Glomerular filtration rate.predicted panel (S/P/Bld) 103 mL/min/1.73m??? Normal >=60 [facility] Comment on above: Order Comment: Helena bronson Type: BLOOD SPECIMENOrdering Facility: [facility] Address: [address] [place] [address] [place] [address] Result Comment: Sara mated Glomerular Filtration Rate (eGFR) is calculated using the 2020 CKD-EPI creatinine equation. This equation utilizes serum creatinine, sex, and age as parameters. The creatinine assay has traceable calibration to isotope dilution-mass spectrometry. Refer to KDIGO guidelines for clinical interpretation. In patients with unstable renal function, e.g. those with acute kidney injury, the eGFR may not accurately reflect actual GFR. Performed By: #### 2 4321-2, ####KENDRICK LABORATORYCLIA [id number] [place] [id number] [place] Glucose [Mass/Vol] 99 mg/dL Normal 74-99 [facility] Comment on above: Order Comment: Helena bronson Type: BLOOD SPECIMENOrdering Facility: [facility] Address: [address] [place] [address] Result Comment: The [place] Diabetes Association (ADA) provides guidance for cutoff values for fasting glucose and random glucose. The ADA defines fasting as no caloric intake for at least 8 hours. Fasting plasma glucose results between 100 to 125 mg/dL indicate increased risk for diabetes (prediabetes). Fasting plasma glucose results greater than or equal to 126 mg/dL meet the criteria for diagnosis of diabetes. In the absence of unequivocal hyperglycemia, results should be confirmed by repeat testing. In a patient with classic symptoms of hyperglycemia or hyperglycemic crisis, random plasma glucose results greater than or equal to 200 mg/dL meet the criteria for diagnosis of diabetes. Reference: Standards of Medical Care in Diabetes 2016, [place] [employer] Association. Diabetes Care. 2016.39(Suppl 1). Performed By: #### 2 4321-2, ####WELLINGTON LABORATORYCLIA [id number] [place] [address] [place] Potassium [Moles/Vol] 4.1 mmol/L Normal 3.7-5.1 [facility] Comment on above: Order Comment: Helena bronson Type: BLOOD SPECIMENOrdering Facility: [facility] Address: [address] [place] [address] Performed By: #### 2 4321-2, 30369-4 ####KENDRICK LABORATORYCLIA [id number] [address] [place] Sodium [Moles/Vol] 136 mmol/L Normal 136-144 [facility] Comment on above: Order Comment: Speci men Type: BLOOD SPECIMENOrdering Facility: [facility] Address: [address] [place] [address] Performed By: #### 2 4321-2, ####KENDRICK LABORATORYCLIA [id number] [place] [address] [place] Urea nitrogen [Mass/Vol] 18 mg/dL Normal 7-21 [facility] Comment on above: Order Comment: Speci men Type: BLOOD SPECIMENOrdering Facility: [facility] Address: [address] [place] [address] Performed By: #### 2 4321-2, ####KENDRICK LABORATORYCLIA [id number] [address] [place] CBC panel Auto (Bld)on 12-18 Erythrocyte distribution width (RBC) [Ratio] 12.5 % Normal 11.5-15.0 [facility] Comment on above: Order Comment: Speci men Type: BLOOD SPECIMENOrdering Facility: [facility] Address: [address] [place] [address] Performed By: #### 5 8410-2 ####KENDRICK LABORATORYCLIA [id number] [address] [place] Hematocrit (Bld) [Volume fraction] 35.1 % Low 36.0-46.0 [facility] Comment on above: Order Comment: Speci men Type: BLOOD SPECIMENOrdering Facility: [facility] Address: [address] [place] [address] Performed By: #### 5 8410-2 ####KENDRICK LABORATORYCLIA [id number] [address] [place] Hemoglobin (Bld) [Mass/Vol] 12.0 g/dL Normal 11.5-15.5 [facility] Comment on above: Order Comment: Speci men Type: BLOOD SPECIMENOrdering Facility: [facility] Address: [address] [place] [address] Performed By: #### 5 8410-2 ####KENDRICK LABORATORYCLIA [id number] [address] MCH (RBC) [Entitic mass] 31.3 pg Normal 26.0-34.0 [facility] Comment on above: Order Comment: Speci men Type: BLOOD SPECIMENOrdering Facility: [facility] Address: [address] [place] [address] Performed By: #### 5 8410-2 ####KENDRICK LABORATORYCLIA [id number] [address] MCHC (RBC) [Mass/Vol] 34.2 g/dL Normal 30.5-36.0 [facility] Comment on above: Order Comment: Speci men Type: BLOOD SPECIMENOrdering Facility: [facility] Address: [address] [place] [address] Performed By: #### 5 8410-2 ####WELLINGTON LABORATORYCLIA [id number] [address] MCV (RBC) [Entitic vol] 91.4 fL Normal 80.0-100.0 [facility] Comment on above: Order Comment: Speci men Type: BLOOD SPECIMENOrdering Facility: [facility] Address: [address] [place] [address] Performed By: #### 5 8410-2 ####KENDRICK LABORATORYCLIA [id number] [address] Nucleated RBC (Bld) [#/Vol] 10*3/uL Normal <0.01 [facility] Comment on above: Order Comment: Speci men Type: BLOOD SPECIMENOrdering Facility: [facility] Address: [address] [place] [address] Performed By: #### 5 8410-2 ####KENDRICK LABORATORYCLIA [id number] [address] [place] Platelet mean volume (Bld) [Entitic vol] 10.7 fL Normal 9.0-12.7 [facility] Comment on above: Order Comment: Speci men Type: BLOOD SPECIMENOrdering Facility: [facility] Address: [address] [place] [address] Performed By: #### 5 8410-2 ####KENDRICK LABORATORYCLIA [id number] [address] [place] Platelets (Bld) [#/Vol] 212 10*3/uL Normal 150-400 [facility] Comment on above: Order Comment: Speci men Type: BLOOD SPECIMENOrdering Facility: [facility] Address: [address] [place] [address] Performed By: #### 5 8410-2 ####KENDRICK LABORATORYCLIA [id number] [place] [address] [place] RBC (Bld) [#/Vol] 3.84 10*6/uL Low 3.90-5.20 [facility] Comment on above: Order Comment: Speci men Type: BLOOD SPECIMENOrdering Facility: [facility] Address: [address] [place] [address] Performed By: #### 5 8410-2 ####KENDRICK LABORATORYCLIA [id number] [place] [address] [place] WBC (Bld) [#/Vol] 6.24 10*3/uL Normal 3.70-11.00 [facility] Comment on above: Order Comment: Speci men Type: BLOOD SPECIMENOrdering Facility: [facility] Address: [address] [place] [address] Performed By: #### 5 8410-2 ####KENDRICK LABORATORYCLIA [id number] [address] [place] Magnesium SerPl-ncon 12-18 Magnesium [Mass/Vol] 1.8 mg/dL Normal 1.7-2.3 [facility] Comment on above: Order Comment: Speci men Type: BLOOD SPECIMENOrdering Facility: [facility] Address: [address] [place] [address] Performed By: #### 2 4321-2, 29673-2 ####KENDRICK LABORATORYCLIA [id number] [place] [address] [place] Basic metabolic 2000 panelon 12-17-2024 Anion gap [Moles/Vol] 9 mmol/L Normal 8-15 [facility] Comment on above: Order Comment: Speci men Type: BLOOD SPECIMENOrdering Facility: [facility] Address: [address] [place] [address] Performed By: #### 1 9123-9, 02308-3 ####KENDRICK LABORATORYCLIA [id number] [place] [address] [place] Calcium [Mass/Vol] 9.9 mg/dL Normal 8.5-10.2 [facility] Comment on above: Order Comment: Speci men Type: BLOOD SPECIMENOrdering Facility: [facility] Address: [address] [place] [address] Performed By: #### 1 9123-9, 12497-5 ####KENDRICK LABORATORYCLIA [id number] [place] [address] [place] Chloride [Moles/Vol] 97 mmol/L Low 98-107 [facility] Comment on above: Order Comment: Speci men Type: BLOOD SPECIMENOrdering Facility: [facility] Address: [address] [place] [address] Performed By: #### 1 9123-9, 45052-7 ####KENDRICK LABORATORYCLIA [id number] [place] [address] [place] CO2 [Moles/Vol] 32 mmol/L High 22-30 [facility] Comment on above: Order Comment: Speci men Type: BLOOD SPECIMENOrdering Facility: [facility] Address: [address] [place] [address] Performed By: #### 1 9123-9, 23601-2 ####KENDRICK LABORATORYCLIA [id number] [place] [address] [place] Creatinine [Mass/Vol] 0.27 mg/dL Low 0.58-0.96 [facility] Comment on above: Order Comment: Speci men Type: BLOOD SPECIMENOrdering Facility: [facility] Address: [address] [place] [address] Performed By: #### 1 9123-9, 95597-1 ####KENDRICK LABORATORYCLIA [id number] [place] [id number] [place] Creatinine and Glomerular filtration rate.predicted panel (S/P/Bld) 106 mL/min/1.73m??? Normal >=60 [facility] Comment on above: Order Comment: Helena bronson Type: BLOOD SPECIMENOrdering Facility: [facility] Address: [address] [place] [address] Result Comment: Sara mated Glomerular Filtration Rate (eGFR) is calculated using the 2020 CKD-EPI creatinine equation. This equation utilizes serum creatinine, sex, and age as parameters. The creatinine assay has traceable calibration to isotope dilution-mass spectrometry. Refer to KDIGO guidelines for clinical interpretation. In patients with unstable renal function, e.g. those with acute kidney injury, the eGFR may not accurately reflect actual GFR. Performed By: #### 1 9123-9, 26488-3 ####KENDRICK LABORATORYCLIA [id number] [place] [address] [place] Glucose [Mass/Vol] 97 mg/dL Normal 74-99 [facility] Comment on above: Order Comment: Helena bronson Type: BLOOD SPECIMENOrdering Facility: [facility] Address: [address] [place] [address] Result Comment: The [place] [employer] (ADA) provides guidance for cutoff values for fasting glucose and random glucose. The ADA defines fasting as no caloric intake for at least 8 hours. Fasting plasma glucose results between 100 to 125 mg/dL indicate increased risk for diabetes (prediabetes). Fasting plasma glucose results greater than or equal to 126 mg/dL meet the criteria for diagnosis of diabetes. In the absence of unequivocal hyperglycemia, results should be confirmed by repeat testing. In a patient with classic symptoms of hyperglycemia or hyperglycemic crisis, random plasma glucose results greater than or equal to 200 mg/dL meet the criteria for diagnosis of diabetes. Reference: Standards of Medical Care in Diabetes 2016, [employer]. Diabetes Care. 2016.39(Suppl 1). Performed By: #### 1 9123-9, 71244-9 ####KENDRICK LABORATORYCLIA [id number] [place] [address] [place] Potassium [Moles/Vol] 3.5 mmol/L Low 3.7-5.1 [facility] Comment on above: Order Comment: Speci men Type: BLOOD SPECIMENOrdering Facility: [facility] Address: [address] [place] [address] Performed By: #### 1 9123-9, 06305-0 ####KENDRICK LABORATORYCLIA [id number] [place] [address] [place] Sodium [Moles/Vol] 138 mmol/L Normal 136-144 [facility] Comment on above: Order Comment: Speci men Type: BLOOD SPECIMENOrdering Facility: [facility] Address: [address] [place] [address] Performed By: #### 1 9123-9, 53030-0 ####KENDRICK LABORATORYCLIA [id number] [address] [place] Urea nitrogen [Mass/Vol] 23 mg/dL High 7-21 [facility] Comment on above: Order Comment: Speci men Type: BLOOD SPECIMENOrdering Facility: [facility] Address: [address] [place] [address] Performed By: #### 1 9123-9, 41691-8 ####KENDRICK LABORATORYCLIA [id number] [address] [place] CBC panel Auto (Bld)on 12-17 Erythrocyte distribution width (RBC) [Ratio] 12.5 % Normal 11.5-15.0 [facility] Comment on above: Order Comment: Speci men Type: BLOOD SPECIMENOrdering Facility: [facility] Address: [address] [place] [address] Performed By: #### 5 8410-2 ####KENDRICK LABORATORYCLIA [id number] [address] [place] Hematocrit (Bld) [Volume fraction] 35.8 % Low 36.0-46.0 [facility] Comment on above: Order Comment: Speci men Type: BLOOD SPECIMENOrdering Facility: [facility] Address: [address] [place] [address] Performed By: #### 5 8410-2 ####KENDRICK LABORATORYCLIA [id number] [address] Hemoglobin (Bld) [Mass/Vol] 12.8 g/dL Normal 11.5-15.5 [facility] Comment on above: Order Comment: Speci men Type: BLOOD SPECIMENOrdering Facility: [facility] Address: [address] [place] [address] Performed By: #### 5 8410-2 ####KENDRICK LABORATORYCLIA [id number] [address] MCH (RBC) [Entitic mass] 31.9 pg Normal 26.0-34.0 [facility] Comment on above: Order Comment: Speci men Type: BLOOD SPECIMENOrdering Facility: [facility] Address: [address] [place] [address] Performed By: #### 5 8410-2 ####KENDRICK LABORATORYCLIA [id number] [address] MCHC (RBC) [Mass/Vol] 35.8 g/dL Normal 30.5-36.0 [facility] Comment on above: Order Comment: Speci men Type: BLOOD SPECIMENOrdering Facility: [facility] Address: [address] [place] [address] Performed By: #### 5 8410-2 ####KENDRICK LABORATORYCLIA [id number] [address] MCV (RBC) [Entitic vol] 89.3 fL Normal 80.0-100.0 [facility] Comment on above: Order Comment: Speci men Type: BLOOD SPECIMENOrdering Facility: [facility] Address: [address] [place] [address] Performed By: #### 5 8410-2 ####KENDRICK LABORATORYCLIA [id number] [address] Nucleated RBC (Bld) [#/Vol] 10*3/uL Normal <0.01 [facility] Comment on above: Order Comment: Speci men Type: BLOOD SPECIMENOrdering Facility: [facility] Address: [address] [facility] [place] [id number] Performed By: #### 5 8410-2 ####KENDRICK LABORATORYCLIA [id number] [place] [id number] [place] Platelet mean volume (Bld) [Entitic vol] 10.5 fL Normal 9.0-12.7 [facility] Comment on above: Order Comment: Speci men Type: BLOOD SPECIMENOrdering Facility: [facility] Address: [address] [place] [address] Performed By: #### 5 8410-2 ####KENDRICK LABORATORYCLIA [id number] [place] [id number] [place] Platelets (Bld) [#/Vol] 226 10*3/uL Normal 150-400 [facility] Comment on above: Order Comment: Speci men Type: BLOOD SPECIMENOrdering Facility: [facility] Address: [address] [place] [address] Performed By: #### 5 8410-2 ####KENDRICK LABORATORYCLIA [id number] [place] [address] [place] RBC (Bld) [#/Vol] 4.01 10*6/uL Normal 3.90-5.20 [facility] Comment on above: Order Comment: Speci men Type: BLOOD SPECIMENOrdering Facility: [facility] Address: [address] [place] [address] Performed By: #### 5 8410-2 ####KENDRICK LABORATORYCLIA [id number] [place] [id number] [place] WBC (Bld) [#/Vol] 9.07 10*3/uL Normal 3.70-11.00 [facility] Comment on above: Order Comment: Speci men Type: BLOOD SPECIMENOrdering Facility: [facility] Address: [address] [place] [address] Performed By: #### 5 8410-2 ####KENDRICK LABORATORYCLIA [id number] [place] [id number] [facility] [place] Magnesium [facility] 12-17 Magnesium [Mass/Vol] 1.8 mg/dL Normal 1.7-2.3 [facility] Comment on above: Order Comment: Speci men Type: BLOOD SPECIMENOrdering Facility: [facility] Address: [address] [facility] [place] [id number] Performed By: #### 1 9123-9, 70628-4 ####KENDRICK LABORATORYCLIA [id number] [place] [address] [place] Basic metabolic 2000 panelon 12-16-2024 Anion gap [Moles/Vol] 13 mmol/L Normal 8-15 [facility] Comment on above: Order Comment: Speci men Type: BLOOD SPECIMENOrdering Facility: [facility] Address: [address] [place] [address] Performed By: #### 2 4321-2, ####KENDRICK LABORATORYCLIA [id number] [place] [address] [place] Calcium [Mass/Vol] 9.5 mg/dL Normal 8.5-10.2 [facility] Comment on above: Order Comment: Speci men Type: BLOOD SPECIMENOrdering Facility: [facility] Address: [address] [place] [address] Performed By: #### 2 4321-2, ####KENDRICK LABORATORYCLIA [id number] [place] [address] [place] Chloride [Moles/Vol] 98 mmol/L Normal 98-107 [facility] Comment on above: Order Comment: Speci men Type: BLOOD SPECIMENOrdering Facility: [facility] Address: [address] [place] [address] Performed By: #### 2 4321-2, ####KENDRICK LABORATORYCLIA [id number] [place] [id number] [place] CO2 [Moles/Vol] 24 mmol/L Normal 22-30 [facility] Comment on above: Order Comment: Speci men Type: BLOOD SPECIMENOrdering Facility: [facility] Address: [address] [place] [address] Performed By: #### 2 4321-2, ####KENDRICK LABORATORYCLIA [id number] [place] [address] [place] Creatinine [Mass/Vol] 0.24 mg/dL Low 0.58-0.96 [facility] Comment on above: Order Comment: Helena bronson Type: BLOOD SPECIMENOrdering Facility: [facility] Address: [address] [place] [address] Performed By: #### 2 4321-2, ####KENDRICK LABORATORYCLIA [id number] [place] [id number] [place] Creatinine and Glomerular filtration rate.predicted panel (S/P/Bld) 109 mL/min/1.73m??? Normal >=60 [facility] Comment on above: Order Comment: Helena bronson Type: BLOOD SPECIMENOrdering Facility: [facility] Address: [address] [place] [address] Result Comment: Sara mated Glomerular Filtration Rate (eGFR) is calculated using the 2020 CKD-EPI creatinine equation. This equation utilizes serum creatinine, sex, and age as parameters. The creatinine assay has traceable calibration to isotope dilution-mass spectrometry. Refer to KDIGO guidelines for clinical interpretation. In patients with unstable renal function, e.g. those with acute kidney injury, the eGFR may not accurately reflect actual GFR. Performed By: #### 2 4321-2, ####KENDRICK LABORATORYCLIA [id number] [place] [id number] [place] Glucose [Mass/Vol] 117 mg/dL High 74-99 [facility] Comment on above: Order Comment: Helena bronson Type: BLOOD SPECIMENOrdering Facility: [facility] Address: [address] [place] [address] Result Comment: The [place] Diabetes Association (ADA) provides guidance for cutoff values for fasting glucose and random glucose. The ADA defines fasting as no caloric intake for at least 8 hours. Fasting plasma glucose results between 100 to 125 mg/dL indicate increased risk for diabetes (prediabetes). Fasting plasma glucose results greater than or equal to 126 mg/dL meet the criteria for diagnosis of diabetes. In the absence of unequivocal hyperglycemia, results should be confirmed by repeat testing. In a patient with classic symptoms of hyperglycemia or hyperglycemic crisis, random plasma glucose results greater than or equal to 200 mg/dL meet the criteria for diagnosis of diabetes. Reference: Standards of Medical Care in Diabetes 2016, [employer]. Diabetes Care. 2016.39(Suppl 1). Performed By: #### 2 4321-2, ####KENDRICK LABORATORYCLIA [id number] [address] STATES OF [facility] Potassium [Moles/Vol] 3.4 mmol/L Low 3.7-5.1 [facility] Comment on above: Order Comment: Speci men Type: BLOOD SPECIMENOrdering Facility: [facility] Address: [address] [place] [address] Performed By: #### 2 4321-2, ####KENDRICK LABORATORYCLIA [id number] [address] Sodium [Moles/Vol] 135 mmol/L Low 136-144 [facility] Comment on above: Order Comment: Speci men Type: BLOOD SPECIMENOrdering Facility: [facility] Address: [address] [place] [address] Performed By: #### 2 4321-2, ####KENDRICK LABORATORYCLIA [id number] [address] Urea nitrogen [Mass/Vol] 25 mg/dL High 7-21 [facility] Comment on above: Order Comment: Noreeni aiyana Type: BLOOD SPECIMENOrdering Facility: [facility] Address: [address] [place] [address] Performed By: #### 2 432-2, ####WELLINGTON LABORATORYCLIA [id number] [address] CBC panel Auto (Bld)on 12-16 Erythrocyte distribution width (RBC) [Ratio] 12.5 % Normal 11.5-15.0 [facility] Comment on above: Order Comment: Noreeni men Type: BLOOD SPECIMENOrdering Facility: [facility] Address: [address] [place] [address] Performed By: #### 5 8410-2 ####WELLINGTON LABORATORYCLIA [id number] [address] [place] Hematocrit (Bld) [Volume fraction] 38.7 % Normal 36.0-46.0 [facility] Comment on above: Order Comment: Speci men Type: BLOOD SPECIMENOrdering Facility: [facility] Address: [address] [place] [address] Performed By: #### 5 8410-2 ####KENDRICK LABORATORYCLIA [id number] [address] Hemoglobin (Bld) [Mass/Vol] 13.4 g/dL Normal 11.5-15.5 [facility] Comment on above: Order Comment: Speci men Type: BLOOD SPECIMENOrdering Facility: [facility] Address: [address] [place] [address] Performed By: #### 5 8410-2 ####KENDRICK LABORATORYCLIA [id number] [address] MCH (RBC) [Entitic mass] 30.7 pg Normal 26.0-34.0 [facility] Comment on above: Order Comment: Speci men Type: BLOOD SPECIMENOrdering Facility: [facility] Address: [address] [place] [address] Performed By: #### 5 8410-2 ####KENDRICK LABORATORYCLIA [id number] [address] MCHC (RBC) [Mass/Vol] 34.6 g/dL Normal 30.5-36.0 [facility] Comment on above: Order Comment: Speci men Type: BLOOD SPECIMENOrdering Facility: [facility] Address: [address] [place] [address] Performed By: #### 5 8410-2 ####KENDRICK LABORATORYCLIA [id number] [address] MCV (RBC) [Entitic vol] 88.8 fL Normal 80.0-100.0 [facility] Comment on above: Order Comment: Speci men Type: BLOOD SPECIMENOrdering Facility: [facility] Address: [address] [place] [address] Performed By: #### 5 8410-2 ####KENDRICK LABORATORYCLIA [id number] [place] [address] [place] Nucleated RBC (Bld) [#/Vol] 10*3/uL Normal <0.01 [facility] Comment on above: Order Comment: Speci men Type: BLOOD SPECIMENOrdering Facility: [facility] Address: [address] [place] [address] Performed By: #### 5 8410-2 ####KENDRICK LABORATORYCLIA [id number] [place] [address] [place] Platelet mean volume (Bld) [Entitic vol] 10.2 fL Normal 9.0-12.7 [facility] Comment on above: Order Comment: Speci men Type: BLOOD SPECIMENOrdering Facility: [facility] Address: [address] [place] [address] Performed By: #### 5 8410-2 ####WELLINGTON LABORATORYCLIA [id number] [address] [place] Platelets (Bld) [#/Vol] 262 10*3/uL Normal 150-400 [facility] Comment on above: Order Comment: Speci men Type: BLOOD SPECIMENOrdering Facility: [facility] Address: [address] [place] [address] Performed By: #### 5 8410-2 ####WELLINGTON LABORATORYCLIA [id number] [address] [place] RBC (Bld) [#/Vol] 4.36 10*6/uL Normal 3.90-5.20 [facility] Comment on above: Order Comment: Speci men Type: BLOOD SPECIMENOrdering Facility: [facility] Address: [address] [place] [address] Performed By: #### 5 8410-2 ####KENDRICK LABORATORYCLIA [id number] [address] [place] WBC (Bld) [#/Vol] 10.28 10*3/uL Normal 3.70-11.00 [facility] Comment on above: Order Comment: Speci men Type: BLOOD SPECIMENOrdering Facility: [facility] Address: [address] [place], [place] [address] Performed By: #### 5 8410-2 ####WELLINGTON LABORATORYCLIA [id number] [place] [id number] [facility] Magnesium SerPl-mCncon 12-16 Magnesium [Mass/Vol] 1.8 mg/dL Normal 1.7-2.3 [facility] Comment on above: Order Comment: Speci men Type: BLOOD SPECIMENOrdering Facility: [facility] Address: [address] [place] [id number] Performed By: #### 2 4321-2, 98163-2 ####KENDRICK LABORATORYCLIA [id number] [place] [id number] [facility] THERAPY NTon 12-16-2024 THERAPY NT HNO ID: [id number] Author: MARC POND OT/Safia Service: ? Author Type: Occupational Therapist Type: Therapy (PT/OT/Speech/Resp) Filed: 12/16/2024 12:16 Note Text: Summary: OT Evaluation Occupational Therapy Evaluation Summary SERVICE DATE: 12/16/2024 SERVICE TIME: 1114 to 1152 ROOM: [id number] OT 6 Clicks Score: 13 DISCHARGE RECOMMENDATIONS Subacute/SNF Recommended Discharge Disposition Due to: Functional deficits requiring ongoing therapy service prior to discharge home., ADL impairment, Anticipated community discharge, Cognitive deficits new/worsened, Coordination deficits, Functional status decline Anticipated Discharge Needs: Physical Assist at Home, Supervision at Home Physical Assist at Home for: Transfers, Finances, Ambulation, Meals, Laundry, Cleaning, Safety, Medication Management, Transportation, Shopping, Self Care, Wheelchair Mobility Supervision at Home due to: Decreased safety awareness, Impaired cognition Recommended Discharge Equipment: To Be Determined ASSESSMENT Response to Therapy Interventions: Low Activity Tolerance, Limited Participation, Pain, Requires Additional Time to Complete Activities Patient presents with generalized weakness, poor tolerance to activity d/t pain, bed level eval completed as pt had just returned to bed with PT, pt reports difficulty with feeding self and utilizing call button at bed level, OT educated pt and dtr and positioning and adaptations to activities, pt's dtr present and very involved with care, OT encouraged bilateral UE AROM exercises at bed level as pt c/o stiffness and weakness PRECAUTIONS Bed/Chair Alarm, Fall Risk, Brace, Spine LSO brace for OOB activity CURRENT HOSPITAL COURSE Patient admitted for acute midline low back pain without sciatica, recent fall 12/08, MRI lumbar spine 12/15 reveals acute fracture of T11 vertebral body, mild to moderate superior endplate compression deformity at T12, associated moderate-severe canal stenosis, R foraminal stenosis at T11-12 -- new findings from previous CT of abd/pelvis 12/08 Relevant Past Medical History: childhood polio, post-polio syndrome, GERD, Unspecified sleep apnea, Iron deficiency anemia, lumbar kyphoplasty, L rotator cuff repair, sleep apnea, esophagealreflux, leukopenia HOME LIVING Patient Lives With: Facility Care, Other: See Comment Comments: BRII Assistance Available: 24-Hour Entry To Home: No Stairs Number Of Stairs To Bed/Bath: 0 Tub/Shower Type: Walk-in shower with extended tub bench electronically controlled with swivel seat Laundry: Facility completes Equipment Owned: Lift Chair, Elevated Toilet Seat, Grab Bars- Shower, Grab Bars- Toilet, Extended Tub Bench, Emergency Response System, Scooter- Power, Wheelchair- Power, Grab Bars- Bed, Commode- Raised, Walker- Wheeled (electric lift seat on commode, electric extended tub bench with electric sliding/swivel seat) PRIOR FUNCTIONAL LEVEL Required Assistance, History of Falls Assistance Required With: Cleaning, Laundry, Meals, Shopping, Transportation, Transfers, Medication Management, Safety per patient and dtr, patient requires stand by assist from staff for bed mobility and transfers from bed to w/c and to scooter. uses pole or locked w/c to pull up on for transfers. stays in scooter/mobilizes in scooter mostly throughout the day and use of w/c in the mornings primarily, patient uses strap to keep B LE's from splaying out in w/c. per clinical judgement, reports she dons LB clothing sitting up in the bed and stands to pull clothing on/off, bathes self indep and completes toileting tasks indep, uses an electric lift system with elevated commode seat to stand from the commode, reports at least 4 falls in the past 6 months with most recent fall reaching down to leg strap and w/c not locked and bumped joystick causing pt to fly out of chair. normally sleeps in flat bed however has been in lift chair recliner since September d/t inability to tolerate laying flat. patient has to have shoes on to prevent feet from sliding and also requires feet to be blocked. Of note, dtr reports when pt visits her home, her scooter does not fit through the door frame so pt able to ambulate a few feet with a 3 wheeled walker and assist from Dtr Baseline Cognition: Oriented to self, Oriented to place, Oriented to time SUBJECTIVE RN cleared to work with, patient just returned to be after PT session, Dtr present throughout COGNITION Orientation Deficits: (Aox4) Responsiveness: Alert, Awake, Lethargic Follows Commands: 2-step Commands THERAPY DIAGNOSIS Decreased activities of daily living (ADL), Reduced mobility-other, Muscle Weakness (generalized) TREATMENT INTERVENTIONS Evaluation, Self Mcc Management (15723) Timed Code Jesse (more content not included)... [facility] THERAPY NT HNO ID: [id number] Author: AVANI LAURA PT Service: Physical Therapy Author Type: Physical Therapist Type: Therapy (PT/OT/Speech/Resp) Filed: 12/16/2024 11:58 Note Text: Summary: PT evaluation Physical Therapy Evaluation Summary SERVICE DATE: 12/16/2024 SERVICE TIME: 1030 to 1112 ROOM: [place] [address] PT 6 Clicks Score: 8 DISCHARGE RECOMMENDATIONS Subacute/SNF Recommended Discharge Disposition Comments: Pt is currently performing functional mobility below PLOF and would benefit from continued skilled PT to reduce risk of falls and rehospitalization. Recommended Discharge Disposition Due to: Functional deficits requiring ongoing therapy service prior to discharge home., Anticipated community discharge, Balance deficits, Functional status decline, Requires multiple therapy disciplines Anticipated Discharge Needs: Physical Assist at Home, Supervision at Home Physical Assist at Home for: Transfers, Cleaning, Laundry, Meals, Medication Management, Stairs, Safety, Self Care, Shopping, Transportation, Wheelchair Mobility (23/02 however current rec SNF) Supervision at Home due to: Decreased safety awareness, Impaired cognition Recommended Discharge Equipment: No equipment needs anticipated ASSESSMENT Response to Therapy Interventions: Cognitive Deficits, Low Activity Tolerance, Needs Frequent Redirection or Reinstruction, Pain, Requires Additional Time to Complete Activities, Requires Encouragement to Complete Activities, Slow Progression with Functional Activities/Skills patient presents with back pain/compression fracture post fall/freq falls/fall risk. patient frequent redirection, appears confused per dtr report. patient with limited mobiility at baseline but is able to complete bed mobility and transfer to w/c or scooter pulling up on pole or locked w/c and stand by assist at RESIDENTIAL. frequent falls per chart. non ambulatory at baseline. heavy assist for bed mobility. patient and dtr note that she requires shoes for transfer due to feet sliding and shoes at facility. dtr to bring shoes as able. limited LE knee flexion/strength limiting safety with transfer to standing as well. patient would benefit from skilled PT to increase strength and progress safe functional mobility. will await shoes, don lumbar brace and rec A x 2 for attempt to progress to standing. monitor pain/tolerance with all mobility. requires heavt redirection at times. POC and goals set for up to transfer to standing and progression will require re evaluation. PRECAUTIONS Bed/Chair Alarm, Fall Risk, Brace, Spine LSO brace for OOB activity CURRENT HOSPITAL COURSE Patient presents with: Low Back Pain: Presents to ED via EMS with concern for low back pain and difficulty ambulating. Had a fall eight days ago where she declined admission to SNF. She was discharged back to [facility] assisted living where PT saw her today and she was unable to participate. Dx: Acute midline low back pain without sciatica, Low back pain, Thoracic compression fracture. 12/15 MRI with compression fracture T12 Relevant Past Medical History: childhood polio, post-polio syndrome, GERD, Unspecified sleep apnea, Iron deficiency anemia, lumbar kyphoplasty, L rotator cuff repair, sleep apnea, esophagealreflux, leukopenia, HOME LIVING Patient Lives With: Facility Care, Other: See Comment Comments: RESIDENTIAL Assistance Available: 24-Hour Entry To Home: No Stairs Number Of Stairs To Bed/Bath: 0 Equipment Owned: Lift Chair, Elevated Toilet Seat, Grab Bars- Shower, Grab Bars- Toilet, Extended Tub Bench, Emergency Response System, Scooter- Power, Wheelchair- Power, Grab Bars- Bed (electric lift on commode, electric extended tub bench with sliding/swivel seat) PRIOR FUNCTIONAL LEVEL Required Assistance, History of Falls Assistance Required With: Cleaning, Laundry, Meals, Shopping, Transportation, Transfers, Medication Management, Safety, Self Care per patient and dtr, patient requires stand by assist from staff for bed mobility and transfers from bed to w/c and to scooter. uses pole or locked w/c to pull up on for transfers. stays in scooter/mobilizes in scooter.. patient uses strap to keep B LE's from splaying out in w/c. per clinical judgement, A for bathing/dressing. multiple falls per chart and patient/dtr. most recent fall, reaching down to leg strap and w/c not locked and bumped joystick. normally sleeps in flat bed however has been in lift chair recliner since September. patient has to have shoes on to prevent feet from sliding and also requires feet to be blocked. shoes at facility/asked family to bring shoes as able. SUBJECTIVE patient agreeable and cleared by PT THERAPY DIAGNOSIS Reduced mobility-other TREATMENT INTERVENTIONS Evaluation, Therapeutic Activity (more content not included)... [facility] ALLIED HEALTHon 12-15-2024 ALLIED HEALTH HNO ID: [id number] Author: ELIAS SOMERS CT Service: Radiology Author Type: Dining Room Attendant Type: Allied Health Filed: 12/15/2024 13:29 Note Text: Radiology Service Progress Note PATIENT NAME: Tena Cannon DATE OF SERVICE: December 15, 2024 TIME: 1:29 PM PATIENT IDENTITY VERIFICATION COMPLETED USING TWO (2) IDENTIFIERS: Name and Date of confirmed by patient verbally and Name and Date of confirmed by identification band. FALL SCREENING: Has the patient had 2 falls in the last year or 1 fall with injury or currently using an Ambulatory Assistive Device (Walker, Cane, Wheelchair, Crutches, etc.)? Inpatient: Screened on floor PATIENT GENDER DATA: Assigned female at . status: : No status: NO. PATIENT RELEVANT IMPLANT DATA REVIEWED: Yes PATIENT PRESENTS WITH AN IMPLANTABLE OR ATTACHED EDGE DRUMMER: No RADIOLOGY DEPARTMENT: MR; Exam(s) Completed: Spine: Lumbar spine. Lavender Administered: No PERIPHERAL IV DATA: Not applicable SIGNED BY: Malika Madrid network technology instructor December 15, 2024 1:29 PM [facility] Bacteria Ur Culton Bacteria identified Cx Nom (U) CULTURE, URINE: Mixed microbiota, including predominantly: ORGANISM ID: 1 >=100,000 CFU/ml Aerococcus urinae No susceptibility testing done. [facility] Comment on above: Performed By: #### 6 30-4 #### [facility] CLIA [id number] [address] [place] [address] [place] MRI LUMBAR SPINE WO IVCONon 12-15-2024 MRI LUMBAR SPINE WO IVCON * * *Final Report* * * DATE OF EXAM: Dec 15 2024 1:54PM [facility] 0303 - MRI LUMBAR SPINE WO IVCON / PROCEDURE REASON: Low back pain, no red flags, no prior management * * * * Physician Interpretation * * * * EXAMINATION: MRI LUMBAR SPINE WO IVCON CLINICAL HISTORY: Low back pain, no red flags, no prior management TECHNIQUE: Routine lumbosacral spine MR protocol without gadolinium. MQ: [id number] COMPARISON: None. RESULT: Counting reference: Lumbosacral junction. For the purposes of this report, Localizer images: Markedly distended bladder. Multiple bilateral renal cysts. Mild to moderate bilateral hydroureteronephrosis. Perihepatic ascites. Bilateral pleural effusions and RIGHT greater than LEFT atelectasis. Alignment: Thoracolumbar levocurvature with apex at L1. Straightening of normal lumbar lordosis. Mild retrolisthesis of L4 on L5 and L5 on S1. Bone marrow signal/fracture: There is new acute fracture of T11 vertebral body with moderate vertebral body height loss. There is associated confluent T1 hypointensity and STIR hyperintensity throughout the T11 vertebral body, which may be related to marrow edema, with underlying marrow replacing lesion felt to be less likely. There is adjacent mild to moderate superior endplate compression deformity of T12. There is associated moderate to severe canal stenosis and at least moderate RIGHT foraminal stenosis at T11-12. These findings are new from 12/08/2024 CT abdomen pelvis. Stable chronic L3 superior endplate compression deformity with associated kyphoplasty changes. Severe L4-5 degenerative disc space narrowing with associated L4 and L5 marrow edema, favor related to type I edematous degenerative endplate change. Conus: High-grade canal narrowing at T11-12 as discussed above. No cord signal abnormality. Paraspinal soft tissues: Marked fatty atrophy of paraspinal, gluteal, and iliopsoas musculature. Lower thoracic spine: As above. L1-L2: Canal and foramina are patent. L2-L3: Canal and foramina are patent L3-L4: Canal and foramina are patent L4-L5: Diffuse disc bulge. Moderate to severe facet arthropathy. Prominent RIGHT L4-5 facet joint effusions suggests facet synovitis. Mild canal stenosis and bilateral subarticular narrowing. Moderate LEFT and mild RIGHT foraminal stenosis. L5-S1: Shallow posterior disc ossify complex. Moderate facet arthropathy. No significant canal stenosis. Moderate bilateral foraminal stenosis. Sacrum and iliac wings: Large perineural sheath cysts along the bilateral sacral exiting nerve roots at multiple levels. The visualized sacrum and iliac wings are within normal limits. IMPRESSION: New acute fracture of T11 vertebral body with moderate vertebral body height loss. Associated confluent marrow edema, with underlying marrow replacing lesion felt to be less likely, could be evaluated on subsequent follow-up MR lumbar spine without and with contrast when acute phase of injury has resolved. Adjacent mild to moderate superior endplate compression deformity of T12. Associated moderate to severe canal stenosis and at least moderate RIGHT foraminal stenosis at T11-12. These findings are new from 12/08/2024 CT abdomen pelvis. Otherwise redemonstrated stable degenerative changes in the lumbar spine, most pronounced at L4-5 as detailed in the body report. Markedly distended bladder, correlate for urinary retention. Mild to moderate bilateral hydroureteronephrosis. Perihepatic ascites. Bilateral pleural effusions and RIGHT greater than LEFT atelectasis. Anatomic Lumbar Variant: None. L4-5 is considered the level of the iliac crest and assume there are 5 lumbar-type vertebrae. Duct Layer Helper: RYAN Transcribe Date/Time: Dec 15 2024 2:11P Dictated by : APRIL MACK MD This examination was interpreted and the report reviewed and electronically signed by: APRIL MACK MD on Dec 15 2024 2:31PM EST [id number] [facility] THERAPY NTon 12-15-2024 THERAPY NT HNO ID: [id number] Author: JOLYNN PATE PT Service: Physical Therapy Author Type: Physical Therapist Type: Therapy (PT/OT/Speech/Resp) Filed: 12/15/2024 10:57 Note Text: Summary: PT missed visit PHYSICAL THERAPY MISSED VISIT SERVICE DATE: 12/15/2024 SERVICE TIME: 1055 ROOM: [place] [address] Patient not seen due to Clinical Appropriateness. Pt awaiting MRI of lumbar spine and delivery of LSO, will reattempt once complete and as schedule allows. SIGNATURE: Jolynn Pate, DAVIS PATIENT NAME: Tena Cannon DATE: December 15, 2024 TIME: 10:56 AM Normal [facility] THERAPY NT HNO ID: [id number] Author: MARC POND OT/Safia Service: ? Author Type: Occupational Therapist Type: Therapy (PT/OT/Speech/Resp) Filed: 12/15/2024 10:27 Note Text: Summary: OT missed visit OCCUPATIONAL THERAPY MISSED VISIT SERVICE DATE: 12/15/2024 SERVICE TIME: 0744 ROOM: [place] [address] Patient not seen due to Clinical Appropriateness. Pt awaiting MRI of lumbar spine. Will re-attempt as able/appropriate. 10:26 addendum: Pt also awaiting delivery of LSO brace. Will follow for MRI results and re-attempt once brace is obtained for safe mobilization and participation in OOB activities. SIGNATURE: Marc Pond OT/Safia PATIENT NAME: Tena Cannon DATE: December 15, 2024 TIME: 7:44 AM Normal [facility] Urinalysis complete panel (U )on 12-14-2024 Bacteria LM.HPF (Urine sed) [#/Area] Many Abnormal None Seen [facility] Comment on above: Order Comment: Speci men Type: URINE SPECIMENOrdering Facility: [facility] Address: [address] [place] [address] Performed By: #### 2 4356-8 ####[facility] LABORATORYCLIA [id number] [address] Bilirubin Ql (U) 2+ Abnormal Negative [facility] Comment on above: Order Comment: Speci men Type: URINE SPECIMENOrdering Facility: [facility] Address: [address] [place] [address] Result Comment: Sugg est correlation with clinical findings and serum bilirubin if clinically indicated. Performed By: #### 2 4356-8 ####[facility] LABORATORYCLIA [id number] [address] [place] Clarity (Unsp spec) Cloudy Abnormal Clear [facility] Comment on above: Order Comment: Speci men Type: URINE SPECIMENOrdering Facility: [facility] Address: [address] [place] [address] Performed By: #### 2 4356-8 ####[facility]DR[facility] LABORATORYCLIA [id number] [address] [place] Color (U) Yellow Normal Yellow [facility] Comment on above: Order Comment: Speci men Type: URINE SPECIMENOrdering Facility: [facility] Address: [address] [place] [address] Performed By: #### 2 4356-8 ####KENDR[facility] LABORATORYCLIA [id number] [address] [place] Glucose Test strip (U) [Mass/Vol] Negative Normal Negative [facility] Comment on above: Order Comment: Speci men Type: URINE SPECIMENOrdering Facility: [facility] Address: [address] [place] [address] Performed By: #### 2 4356-8 ####KENDRICK LABORATORYCLIA [id number] [address] [place] Hemoglobin Ql (U) Trace Abnormal Negative [facility] Comment on above: Order Comment: Speci men Type: URINE SPECIMENOrdering Facility: [facility] Address: [address] [place] [address] Performed By: #### 2 4356-8 ####[facility]DRICK LABORATORYCLIA [id number] [place] [address] [place] Ketones Ql (U) 3+ Abnormal Negative [facility] Comment on above: Order Comment: Speci men Type: URINE SPECIMENOrdering Facility: [facility] Address: [address] [place] [address] Performed By: #### 2 4356-8 ####KENDR[facility] LABORATORYCLIA [id number] [address] [place] Leukocyte esterase Test strip Ql (U) 2+ Abnormal Negative [facility] Comment on above: Order Comment: Speci men Type: URINE SPECIMENOrdering Facility: [facility] Address: [address] [place] [address] Performed By: #### 2 4356-8 ####KENDRICK LABORATORYCLIA [id number] [address] [place] [facility] Nitrite Ql (U) Negative Normal Negative [facility] Comment on above: Order Comment: Speci men Type: URINE SPECIMENOrdering Facility: [facility] Address: [address] [place] [address] Performed By: #### 2 4356-8 ####KENDRICK LABORATORYCLIA [id number] [address] [place] pH (U) 7.5 [pH] Normal 5.0-8.0 [facility] Comment on above: Order Comment: Speci men Type: URINE SPECIMENOrdering Facility: [facility] Address: [address] [place] [address] Performed By: #### 2 4356-8 ####KENDRICK LABORATORYCLIA [id number] [place] [address] [place] Protein (U) [Mass/Vol] 2+ Abnormal Negative [facility] Comment on above: Order Comment: Speci men Type: URINE SPECIMENOrdering Facility: [facility] Address: [address] [place] [address] Performed By: #### 2 4356-8 ####KENDRICK LABORATORYCLIA [id number] [place] [address] [place] RBC LM.HPF (Urine sed) [#/Area] 0-3 /HPF Normal 0-3 /HPF [facility] Comment on above: Order Comment: Speci men Type: URINE SPECIMENOrdering Facility: [facility] Address: [address] [place] [address] Performed By: #### 2 4356-8 ####[facility]DRICK LABORATORYCLIA [id number] [address] [place] Specific gravity (U) [Rel density] 1.010 Normal 1.005-1.030 [facility] Comment on above: Order Comment: Speci men Type: URINE SPECIMENOrdering Facility: [facility] Address: [address] [place] [address] Performed By: #### 2 4356-8 ####KENDRICK LABORATORYCLIA [id number] [address] [place] Triple phosphate crystals LM.HPF (Urine sed) [#/Area] Moderate Abnormal None Seen [facility] Comment on above: Order Comment: Speci men Type: URINE SPECIMENOrdering Facility: [facility] Address: [address] [place] [address] Performed By: #### 2 4356-8 ####KENDRICK LABORATORYCLIA [id number] [address] [place] Urobilinogen Ql (U) 1.0 EU/dL Normal 0.2-1.0 EU/dL [facility] Comment on above: Order Comment: Speci men Type: URINE SPECIMENOrdering Facility: [facility] Address: [address] [place] [address] Performed By: #### 2 4356-8 ####KENDRICK LABORATORYCLIA [id number] [address] [place] WBC LM.HPF (Urine sed) [#/Area] 6-10 /HPF Abnormal 0-5 /HPF [facility] Comment on above: Order Comment: Speci men Type: URINE SPECIMENOrdering Facility: [facility] Address: [address] [place] [address] Performed By: #### 2 4356-8 ####KENDRICK LABORATORYCLIA [id number] [address] CBC panel Auto (Bld)on 12-13 Erythrocyte distribution width (RBC) [Ratio] 13.0 % Normal 11.5-15.0 [facility] Comment on above: Order Comment: Speci men Type: BLOOD SPECIMENOrdering Facility: [facility] Address: [address] [place] [address] Performed By: #### 5 8410-2 ####KENDRICK LABORATORYCLIA [id number] [address] Hematocrit (Bld) [Volume fraction] 41.1 % Normal 36.0-46.0 [facility] Comment on above: Order Comment: Speci men Type: BLOOD SPECIMENOrdering Facility: [facility] Address: [address] [place] [address] Performed By: #### 5 8410-2 ####KENDRICK LABORATORYCLIA [id number] [address] Hemoglobin (Bld) [Mass/Vol] 13.8 g/dL Normal 11.5-15.5 [facility] Comment on above: Order Comment: Speci men Type: BLOOD SPECIMENOrdering Facility: [facility] Address: [address] [place] [address] Performed By: #### 5 8410-2 ####KENDRICK LABORATORYCLIA [id number] [address] MCH (RBC) [Entitic mass] 31.4 pg Normal 26.0-34.0 [facility] Comment on above: Order Comment: Speci men Type: BLOOD SPECIMENOrdering Facility: [facility] Address: [address] [place] [address] Performed By: #### 5 8410-2 ####KENDRICK LABORATORYCLIA [id number] [address] MCHC (RBC) [Mass/Vol] 33.6 g/dL Normal 30.5-36.0 [facility] Comment on above: Order Comment: Speci men Type: BLOOD SPECIMENOrdering Facility: [facility] Address: [address] [place] [address] Performed By: #### 5 8410-2 ####KENDRICK LABORATORYCLIA [id number] [place] [address] [place] MCV (RBC) [Entitic vol] 93.6 fL Normal 80.0-100.0 M [facility] Comment on above: Order Comment: Speci men Type: BLOOD SPECIMENOrdering Facility: [facility] Address: [address] [place] [address] Performed By: #### 5 8410-2 ####KENDRICK LABORATORYCLIA [id number] [place] [address] [place] Nucleated RBC (Bld) [#/Vol] 10*3/uL Normal <0.01 [facility] Comment on above: Order Comment: Speci men Type: BLOOD SPECIMENOrdering Facility: [facility] Address: [address] [place] [address] Performed By: #### 5 8410-2 ####KENDRICK LABORATORYCLIA [id number] [address] [place] Platelet mean volume (Bld) [Entitic vol] 11.1 fL Normal 9.0-12.7 [facility] Comment on above: Order Comment: Speci men Type: BLOOD SPECIMENOrdering Facility: [facility] Address: [address] [place] [address] Performed By: #### 5 8410-2 ####KENDRICK LABORATORYCLIA [id number] [place] [address] [place] [facility] [place] Platelets (Bld) [#/Vol] 238 10*3/uL Normal 150-400 [facility] Comment on above: Order Comment: Speci men Type: BLOOD SPECIMENOrdering Facility: [facility] Address: [address] [place] [address] Performed By: #### 5 8410-2 ####KENDRICK LABORATORYCLIA [id number] [place] [address] [place] RBC (Bld) [#/Vol] 4.39 10*6/uL Normal 3.90-5.20 [facility] Comment on above: Order Comment: Speci men Type: BLOOD SPECIMENOrdering Facility: [facility] Address: [facility] [place] [address] Performed By: #### 5 8410-2 ####KENDRICK LABORATORYCLIA [id number] [address] WBC (Bld) [#/Vol] 10.47 10*3/uL Normal 3.70-11.00 [facility] Comment on above: Order Comment: Speci men Type: BLOOD SPECIMENOrdering Facility: [facility] Address: [address] [place], [place] [address] [address] Performed By: #### 5 8410-2 ####KENDRICK LABORATORYCLIA [id number] [address] Comprehensive metabolic 2000 panelon 12-13-2024 Albumin [Mass/Vol] 3.9 g/dL Normal 3.9-4.9 [facility] Comment on above: Order Comment: Speci men Type: BLOOD SPECIMENOrdering Facility: [facility] Address: [address] [place] [address] [place] [address] Performed By: #### 2 4323-8 ####KENDRICK LABORATORYCLIA [id number] [address] ALP [Catalytic activity/Vol] 74 U/L Normal 34-123 [facility] Comment on above: Order Comment: Speci men Type: BLOOD SPECIMENOrdering Facility: [facility] Address: [address] [place] [address] [place] [address] Performed By: #### 2 4323-8 ####KENDRICK LABORATORYCLIA [id number] [address] ALT [Catalytic activity/Vol] 18 U/L Normal 7-38 [facility] Comment on above: Order Comment: Speci men Type: BLOOD SPECIMENOrdering Facility: [facility] Address: [address] [place] [address] [place] [address] Performed By: #### 2 4323-8 ####KENDRICK LABORATORYCLIA [id number] [address] Anion gap [Moles/Vol] 11 mmol/L Normal 8-15 [facility] Comment on above: Order Comment: Speci men Type: BLOOD SPECIMENOrdering Facility: [facility] Address: [address] [place] [address] Performed By: #### 2 4323-8 ####KENDRICK LABORATORYCLIA [id number] [place] [address] [place] AST [Catalytic activity/Vol] 25 U/L Normal 13-35 [facility] Comment on above: Order Comment: Speci men Type: BLOOD SPECIMENOrdering Facility: [facility] Address: [address] [place] [address] Performed By: #### 2 4323-8 ####KENDRICK LABORATORYCLIA [id number] [place] [address] [place] Bilirubin [Mass/Vol] 0.7 mg/dL Normal 0.2-1.3 [facility] Comment on above: Order Comment: Speci men Type: BLOOD SPECIMENOrdering Facility: [facility] Address: [address] [place] [address] Performed By: #### 2 4323-8 ####KENDRICK LABORATORYCLIA [id number] [place] [address] [place] Calcium [Mass/Vol] 10.6 mg/dL High 8.5-10.2 [facility] Comment on above: Order Comment: Speci men Type: BLOOD SPECIMENOrdering Facility: [facility] Address: [address] [place] [address] Performed By: #### 2 4323-8 ####KENDRICK LABORATORYCLIA [id number] [place] [address] [place] Chloride [Moles/Vol] 99 mmol/L Normal 98-107 [facility] Comment on above: Order Comment: Speci men Type: BLOOD SPECIMENOrdering Facility: [facility] Address: [address] [place] [address] Performed By: #### 2 4323-8 ####KENDRICK LABORATORYCLIA [id number] [place] [address] [place] CO2 [Moles/Vol] 29 mmol/L Normal 22-30 [facility] Comment on above: Order Comment: Speci men Type: BLOOD SPECIMENOrdering Facility: [facility] Address: [address] [place] [address] Performed By: #### 2 4323-8 ####[facility] LABORATORYCLIA [id number] [place] [address] [place] Creatinine [Mass/Vol] 0.33 mg/dL Low 0.58-0.96 [facility] Comment on above: Order Comment: [facility] Type: BLOOD SPECIMENOrdering Facility: [facility] Address: [address] [place] [address] Performed By: #### 2 4323-8 ####[facility] LABORATORYCLIA [id number] [address] Creatinine and Glomerular filtration rate.predicted panel (S/P/Bld) 101 mL/min/1.73m??? Normal >=60 [facility] Comment on above: Order Comment: Helena bronson Type: BLOOD SPECIMENOrdering Facility: [facility] Address: [address] [place] [address] Result Comment: Sara mated Glomerular Filtration Rate (eGFR) is calculated using the 2020 CKD-EPI creatinine equation. This equation utilizes serum creatinine, sex, and age as parameters. The creatinine assay has traceable calibration to isotope dilution-mass spectrometry. Refer to KDIGO guidelines for clinical interpretation. In patients with unstable renal function, e.g. those with acute kidney injury, the eGFR may not accurately reflect actual GFR. Performed By: #### 2 4323-8 ####[facility] LABORATORYCLIA [id number] [address] [place] Glucose [Mass/Vol] 101 mg/dL High 74-99 [facility] Comment on above: Order Comment: Helena bronson Type: BLOOD SPECIMENOrdering Facility: [facility] Address: [address] [place] [address] Result Comment: The [place] [employer] (ADA) provides guidance for cutoff values for fasting glucose and random glucose. The ADA defines fasting as no caloric intake for at least 8 hours. Fasting plasma glucose results between 100 to 125 mg/dL indicate increased risk for diabetes (prediabetes). Fasting plasma glucose results greater than or equal to 126 mg/dL meet the criteria for diagnosis of diabetes. In the absence of unequivocal hyperglycemia, results should be confirmed by repeat testing. In a patient with classic symptoms of hyperglycemia or hyperglycemic crisis, random plasma glucose results greater than or equal to 200 mg/dL meet the criteria for diagnosis of diabetes. Reference: Standards of Medical Care in Diabetes 2016, [place] [employer]. Diabetes Care. 2016.39(Suppl 1). Performed By: #### 2 4323-8 ####KENDRICK LABORATORYCLIA [id number] [place] [address] [place] Potassium [Moles/Vol] 3.8 mmol/L Normal 3.7-5.1 [facility] Comment on above: Order Comment: Helena bronson Type: BLOOD SPECIMENOrdering Facility: [facility] Address: [address] [place] [address] Performed By: #### 2 4323-8 ####KENDRICK LABORATORYCLIA [id number] [address] [place] [facility] Protein [Mass/Vol] 7.0 g/dL Normal 6.3-8.0 [facility] Comment on above: Order Comment: Helena bronson Type: BLOOD SPECIMENOrdering Facility: [facility] Address: [address] [place] [address] Performed By: #### 2 4323-8 ####KENDRICK LABORATORYCLIA [id number] [address] [place] [facility] Sodium [Moles/Vol] 139 mmol/L Normal 136-144 [facility] Comment on above: Order Comment: Helena bronson Type: BLOOD SPECIMENOrdering Facility: [facility] Address: [address] [place] [address] Performed By: #### 2 4323-8 ####KENDRICK LABORATORYCLIA [id number] [place] [address] [place] Urea nitrogen [Mass/Vol] 41 mg/dL High 7-21 [facility] Comment on above: Order Comment: Helena bronson Type: BLOOD SPECIMENOrdering Facility: [facility] Address: [address] [place] [address] Performed By: #### 2 4323-8 ####KENDRICK LABORATORYCLIA [id number] [place] [address] [place] Basic metabolic 2000 panelon 05-12-2025 Anion gap [Moles/Vol] 15 mmol/L Normal 8-15 [facility] Comment on above: Order Comment: Speci men Type: BLOOD SPECIMENOrdering Facility: [facility] Address: [address] [place] [address] [place] [address] Performed By: #### 2 4321-2 ####KENDRICK LABORATORYCLIA [id number] [place] [address] [place] Calcium [Mass/Vol] 10.8 mg/dL High 8.5-10.2 [facility] Comment on above: Order Comment: Speci men Type: BLOOD SPECIMENOrdering Facility: [facility] Address: [address] [place] [address] Performed By: #### 2 4321-2 ####KENDRICK LABORATORYCLIA [id number] [place] [address] [place] Chloride [Moles/Vol] 98 mmol/L Normal 98-107 [facility] Comment on above: Order Comment: Speci men Type: BLOOD SPECIMENOrdering Facility: [facility] Address: [address] [place] [address] Performed By: #### 2 4321-2 ####KENDRICK LABORATORYCLIA [id number] [place] [address] [place] CO2 [Moles/Vol] 26 mmol/L Normal 22-30 [facility] Comment on above: Order Comment: Speci men Type: BLOOD SPECIMENOrdering Facility: [facility] Address: [address] [place] [address] Performed By: #### 2 4321-2 ####KENDRICK LABORATORYCLIA [id number] [place] [id number] [place] Creatinine [Mass/Vol] 0.30 mg/dL Low 0.58-0.96 [facility] Comment on above: Order Comment: Speci men Type: BLOOD SPECIMENOrdering Facility: [facility] Address: [address] [place] [address] Performed By: #### 2 4321-2 ####KENDRICK LABORATORYCLIA [id number] [place] [address] [place] Creatinine and Glomerular filtration rate.predicted panel (S/P/Bld) 103 mL/min/1.73m??? Normal >=60 [facility] Comment on above: Order Comment: Helena bronson Type: BLOOD SPECIMENOrdering Facility: [facility] Address: [address] [place] [address] Result Comment: Sara mated Glomerular Filtration Rate (eGFR) is calculated using the 2020 CKD-EPI creatinine equation. This equation utilizes serum creatinine, sex, and age as parameters. The creatinine assay has traceable calibration to isotope dilution-mass spectrometry. Refer to KDIGO guidelines for clinical interpretation. In patients with unstable renal function, e.g. those with acute kidney injury, the eGFR may not accurately reflect actual GFR. Performed By: #### 2 4321-2 ####KENDRICK LABORATORYCLIA [id number] [place] [id number] [place] Glucose [Mass/Vol] 126 mg/dL High 74-99 [facility] Comment on above: Order Comment: Helena bronson Type: BLOOD SPECIMENOrdering Facility: [facility] Address: [address] [place] [address] Result Comment: The [place] [employer] (ADA) provides guidance for cutoff values for fasting glucose and random glucose. The ADA defines fasting as no caloric intake for at least 8 hours. Fasting plasma glucose results between 100 to 125 mg/dL indicate increased risk for diabetes (prediabetes). Fasting plasma glucose results greater than or equal to 126 mg/dL meet the criteria for diagnosis of diabetes. In the absence of unequivocal hyperglycemia, results should be confirmed by repeat testing. In a patient with classic symptoms of hyperglycemia or hyperglycemic crisis, random plasma glucose results greater than or equal to 200 mg/dL meet the criteria for diagnosis of diabetes. Reference: Standards of Medical Care in Diabetes 2016, [place] Diabetes Association. Diabetes Care. 2016.39(Suppl 1). Performed By: #### 2 4321-2 ####KENDRICK LABORATORYCLIA [id number] [place] [address] [place] Potassium [Moles/Vol] 3.4 mmol/L Low 3.7-5.1 [facility] Comment on above: Order Comment: Helena bronson Type: BLOOD SPECIMENOrdering Facility: [facility] Address: [address] [place] [address] Performed By: #### 2 4321-2 ####KENDRICK LABORATORYCLIA [id number] [address] [place] [facility] Sodium [Moles/Vol] 139 mmol/L Normal 136-144 [facility] Comment on above: Order Comment: Speci men Type: BLOOD SPECIMENOrdering Facility: [facility] Address: [address] [place] [address] Performed By: #### 2 4321-2 ####KENDRICK LABORATORYCLIA [id number] [place] [address] [place] Urea nitrogen [Mass/Vol] 37 mg/dL High 7-21 [facility] Comment on above: Order Comment: Speci men Type: BLOOD SPECIMENOrdering Facility: [facility] Address: [address] [place] [address] Performed By: #### 2 4321-2 ####KENDRICK LABORATORYCLIA [id number] [address] [place] CBC W Auto Differential pane l (Bld)on 12-12-2024 Basophils (Bld) [#/Vol] 10*3/uL Normal <0.11 [facility] Comment on above: Order Comment: Speci men Type: BLOOD SPECIMENOrdering Facility: [facility] Address: [address] [place] [address] Performed By: #### 5 7021-8 ####KENDRICK LABORATORYCLIA [id number] [address] Basophils/100 WBC (Bld) 0.1 % Normal [facility] Comment on above: Order Comment: Speci men Type: BLOOD SPECIMENOrdering Facility: [facility] Address: [address] [place] [address] Performed By: #### 5 7021-8 ####KENDRICK LABORATORYCLIA [id number] [address] Differential cell count method Nom (Bld) Auto Normal [facility] Comment on above: Order Comment: Speci men Type: BLOOD SPECIMENOrdering Facility: [facility] Address: [address] [place] [address] Performed By: #### 5 7021-8 ####KENDRICK LABORATORYCLIA [id number] [place] [address] [place] [facility] [place] Eosinophils (Bld) [#/Vol] 10*3/uL Normal <0.46 [facility] Comment on above: Order Comment: Speci men Type: BLOOD SPECIMENOrdering Facility: [facility] Address: [address] [place] [address] Performed By: #### 5 7021-8 ####KENDRICK LABORATORYCLIA [id number] [address] [place] Eosinophils/100 WBC (Bld) 0.0 % Normal [facility] Comment on above: Order Comment: Speci men Type: BLOOD SPECIMENOrdering Facility: [facility] Address: [address] [place] [address] Performed By: #### 5 7021-8 ####KENDRICK LABORATORYCLIA [id number] [address] [place] Erythrocyte distribution width (RBC) [Ratio] 12.7 % Normal 11.5-15.0 [facility] Comment on above: Order Comment: Speci men Type: BLOOD SPECIMENOrdering Facility: [facility] Address: [address] [place] [address] Performed By: #### 5 7021-8 ####KENDRICK LABORATORYCLIA [id number] [address] [place] Hematocrit (Bld) [Volume fraction] 40.3 % Normal 36.0-46.0 [facility] Comment on above: Order Comment: Speci men Type: BLOOD SPECIMENOrdering Facility: [facility] Address: [address] [place] [address] Performed By: #### 5 7021-8 ####KENDRICK LABORATORYCLIA [id number] [address] Hemoglobin (Bld) [Mass/Vol] 13.9 g/dL Normal 11.5-15.5 [facility] Comment on above: Order Comment: Speci men Type: BLOOD SPECIMENOrdering Facility: [facility] Address: [address] [place] [address] Performed By: #### 5 7021-8 ####KENDRICK LABORATORYCLIA [id number] [place] [address] [place] [facility] [place] Immature granulocytes (Bld) [#/Vol] 0.06 10*3/uL Normal <0.10 [facility] Comment on above: Order Comment: Speci men Type: BLOOD SPECIMENOrdering Facility: [facility] Address: [address] [place] [address] Performed By: #### 5 7021-8 ####KENDRICK LABORATORYCLIA [id number] [address] [place] Immature granulocytes/100 WBC (Bld) 0.5 % Normal [facility] Comment on above: Order Comment: Speci men Type: BLOOD SPECIMENOrdering Facility: [facility] Address: [address] [place] [address] Performed By: #### 5 7021-8 ####KENDRICK LABORATORYCLIA [id number] [place] [address] [place] Lymphocytes (Bld) [#/Vol] 0.71 10*3/uL Low 1.00-4.00 [facility] Comment on above: Order Comment: Speci men Type: BLOOD SPECIMENOrdering Facility: [facility] Address: [address] [place] [address] Performed By: #### 5 7021-8 ####KENDRICK LABORATORYCLIA [id number] [address] [place] Lymphocytes/100 WBC (Bld) 5.7 % Normal [facility] Comment on above: Order Comment: Speci men Type: BLOOD SPECIMENOrdering Facility: [facility] Address: [address] [place] [address] Performed By: #### 5 7021-8 ####KENDRICK LABORATORYCLIA [id number] [place] [address] [place] MCH (RBC) [Entitic mass] 31.7 pg Normal 26.0-34.0 [facility] Comment on above: Order Comment: Speci men Type: BLOOD SPECIMENOrdering Facility: [facility] Address: [address] [place] [address] Performed By: #### 5 7021-8 ####KENDRICK LABORATORYCLIA [id number] [place] [address] [place] MCHC (RBC) [Mass/Vol] 34.5 g/dL Normal 30.5-36.0 [facility] Comment on above: Order Comment: Speci men Type: BLOOD SPECIMENOrdering Facility: [facility] Address: [address] [place] [address] Performed By: #### 5 7021-8 ####KENDRICK LABORATORYCLIA [id number] [place] [address] [place] MCV (RBC) [Entitic vol] 91.8 fL Normal 80.0-100.0 [facility] Comment on above: Order Comment: Speci men Type: BLOOD SPECIMENOrdering Facility: [facility] Address: [address] [place] [address] Performed By: #### 5 7021-8 ####KENDRICK LABORATORYCLIA [id number] [place] [address] [place] Monocytes (Bld) [#/Vol] 1.20 10*3/uL High <0.87 [facility] Comment on above: Order Comment: Speci men Type: BLOOD SPECIMENOrdering Facility: [facility] Address: [address] [place] [address] Performed By: #### 5 7021-8 ####KENDRICK LABORATORYCLIA [id number] [place] [address] [place] Monocytes/100 WBC (Bld) 9.6 % Normal [facility] Comment on above: Order Comment: Speci men Type: BLOOD SPECIMENOrdering Facility: [facility] Address: [address] [place] [address] Performed By: #### 5 7021-8 ####KENDRICK LABORATORYCLIA [id number] [place] [address] [place] Neutrophils (Bld) [#/Vol] 10.52 10*3/uL High 1.45-7.50 [facility] Comment on above: Order Comment: Speci men Type: BLOOD SPECIMENOrdering Facility: [facility] Address: [address] [place] [address] Performed By: #### 5 7021-8 ####KENDRICK LABORATORYCLIA [id number] [address] [place] Neutrophils/100 WBC (Bld) 84.1 % Normal [facility] Comment on above: Order Comment: Speci men Type: BLOOD SPECIMENOrdering Facility: [facility] Address: [address] [place] [address] Performed By: #### 5 7021-8 ####KENDRICK LABORATORYCLIA [id number] [place] [address] [place] Nucleated RBC (Bld) [#/Vol] 10*3/uL Normal <0.01 [facility] Comment on above: Order Comment: Speci men Type: BLOOD SPECIMENOrdering Facility: [facility] Address: [address] [place] [address] Performed By: #### 5 7021-8 ####KENDRICK LABORATORYCLIA [id number] [address] [place] Nucleated RBC/100 WBC (Bld) [Ratio] 0.0 /100 WBC Normal [facility] Comment on above: Order Comment: Speci men Type: BLOOD SPECIMENOrdering Facility: [facility] Address: [address] [place] [address] Performed By: #### 5 7021-8 ####KENDRICK LABORATORYCLIA [id number] [place] [address] [place] Platelet mean volume (Bld) [Entitic vol] 10.5 fL Normal 9.0-12.7 [facility] Comment on above: Order Comment: Speci men Type: BLOOD SPECIMENOrdering Facility: [facility] Address: [address] [place] [address] Performed By: #### 5 7021-8 ####KENDRICK LABORATORYCLIA [id number] [place] [address] [place] Platelets (Bld) [#/Vol] 239 10*3/uL Normal 150-400 [facility] Comment on above: Order Comment: Speci men Type: BLOOD SPECIMENOrdering Facility: [facility] Address: [address] [place], [place] [address] Performed By: #### 5 7021-8 ####KENDRICK LABORATORYCLIA [id number] [place] [id number] [facility] RBC (Bld) [#/Vol] 4.39 10*6/uL Normal 3.90-5.20 [facility] Comment on above: Order Comment: Speci men Type: BLOOD SPECIMENOrdering Facility: [facility] Address: [address] [place], [place] [address] Performed By: #### 5 7021-8 ####KENDRICK LABORATORYCLIA [id number] [place] [id number] [facility] WBC (Bld) [#/Vol] 12.50 10*3/uL High 3.70-11.00 [facility] Comment on above: Order Comment: Speci men Type: BLOOD SPECIMENOrdering Facility: [facility] Address: [address] [place] [address] Performed By: #### 5 7021-8 ####KENDRICK LABORATORYCLIA [id number] [place] [id number] [facility] ED NOTEon 12-12-2024 ED NOTE HNO ID: [id number] Author: JESSENIA PARIKH RN Service: ? Author Type: Registered Nurse Type: ED Notes Filed: 12/12/2024 11:39 Note Text: Bed: ED-19 Expected date: Expected time: Means of arrival: [place] [facility]/EMS Comments: 84 F Needs SNF placement Fell 8 days ago Normal [facility] ED PROV NOTEon 12-12-2024 ED PROV NOTE HNO ID: [id number] Author: TARA ENCARNACION MD Service: Emergency Medicine Author Type: Physician Type: ED Provider Notes Filed: 12/12/2024 15:03 Note Text: ED Provider Note Patient Name: Tena Cannon : 1940 SERVICE DATE: 12/12/24 History Patient presents with: Low Back Pain: Presents to ED via EMS with concern for low back pain and difficulty ambulating. Had a fall eight days ago where she declined admission to SNF. She was discharged back to [facility] assisted living where PT saw her today and she was unable to participate. Sent to ED for placement Hip Pain This is an 84-year-old female fell on 12/08/2024. She was transferring from wheelchair to her scooter and fell on her back. She was seen by Dr. Perez. She she had a CT of the head cervical spine lumbar spine abdomen and pelvis as well as plain x-rays and there was no fracture noted. She was admitted to the hospital for couple days. [facility] [place] to her assisted living facility at [facility]. She had physical therapy at today. She was unable to get up and ambulate. Patient has not been eating or drinking. When she gets pain her blood pressure goes up. She has been taking oxycodone twice a day for pain. She did take her blood pressure medications. She has had no new falls since she left. 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 Leukopenia Unspecified sleep apnea cpap PAST SURGICAL HISTORY Procedure Laterality Date APPENDECTOMY tubal ligation BLEPHAROPLASTY UPPER EYELID W/EXCESSIVE SKIN 2022 CARPAL TUNNEL RIGHT WRIST 07/2003 COLONOSCOPY 03/30/2013 normal exam EGD 03/30/2013 hiatal hernia, Anatolyary-Marshall Grade III reflux esophagitis, gastric polyps EGD 09/07/2018 SSBE noted on exam, not confirmed on biopsy, gastritis, neg H Pylori, fundic gland polyp IR KYPHOPLASTY LUMBAR 2006 L-3 LAPAROSCOPY SURG CHOLECYSTECTOMY 06/1999 Cholecystectomy, lap PAST SURGICAL HISTORY OF 2007 CMCJleft wrist PAST SURGICAL HISTORY OF child tendon transplants right ankle and both knees PAST SURGICAL HISTORY OF teens left great toe X 2 PAST SURGICAL HISTORY OF 1986 left rotator cuff repair and bone spur PAST SURGICAL HISTORY OF bone spur right shoulder RMVL SEC [facility]BRAN[facility] CTRC CORNEO-SCLL SCTJ Cataract removal left with lens implant FAMILY HISTORY Problem Relation Age of Onset Heart Mother Hypertension Mother Headache Mother Diabetes Father Diabetes Paternal Grandmother Stroke Brother Stroke Paternal Grandfather Heart Other Heart Paternal Uncle Heart Maternal Uncle Hypertension Sister Hypertension Brother Diabetes Son Seizures Other niece other (dementia) Maternal Aunt other (brain hemorrhage) Other cousin Social History Tobacco Use Smoking status: Never Passive exposure: Yes Smokeless tobacco: Never Tobacco comments: second hand smoke exposure. Vaping Use Vaping status: Never Used Substance and Sexual Activity Alcohol use: Yes Comment: Rare Drug use: Never Sexual activity: Not Currently Partners: Male control/protection: Surgical ALLERGIES Allergen Reactions Keflex [Cephalexin] Diarrhea, GI Upset extreme diarrhea Vioxx [Rofecoxib] Intolerance Makes capillaryblood vessels break Novocain [Procaine * Intolerance headaches Sumner-3 Fish Oil [O* Intolerance bleeding in eye Advil [Ibuprofen] Intolerance Makes capillary blood vessels bread Asa [Salicylates] Intolerance Makes capillary blood vessels break Review of Systems Constitutional: Negative for fever. Musculoskeletal: Positive for back pain. Physical Exam Vitals BP Pulse Temp Temp src Resp SpO2 Weight Height 12/12/24 1329 12/12/24 1229 12/12/24 1139 12/12/24 1139 -- 12/12/24 1229 12/12/24 1139 12/12/24 1139 178/84 (!) 103 36.5 ?C (97.7 ?F) Oral 96 % 70.5 kg (155 lb 6.8 oz) 1.422 m (4' 8) Physical Exam Vitals and nursing note reviewed. HENT: Head: Normocephalic and atraumatic. Nose: Nose normal. Mouth/Throat: Mouth: Mucous membranes are dry. Eyes: General: No scleral icterus. Extraocular Movements: Extraocular movements intact. Conjunctiva/sclera: Conjunctivae normal. Pupils: Pupils are equal, round, and reactive to light. Cardiovascular: Rate and Rhythm: Normal rate and regular rhythm. Pulses: Normal pulses. Heart sounds: Normal heart sounds. Pulmonary: Effort: Pulmonary effort is normal. Breath sounds: Normal breath sounds. Abdominal: General: Abdomen is flat. Palpations: Abdomen is soft. Tenderness: There is no abdominal tenderness. Musculoskeletal: Cervical back: Neck supple. No tenderness. Comments: Patient has midline lower lumbar back pa (more content not included)... Normal [facility] HISTORY PHYSICALon HISTORY PHYSICAL HNO ID: [id number] Author: GEORGINA RICHARDSON MD Service: Hospital Medicine Author Type: Physician Type: H&P Filed: 12/12/2024 22:35 Note Text: DEPARTMENT OF HOSPITAL MEDICINE HISTORY AND PHYSICAL EXAM SERVICE DATE: 12/12/2024 SERVICE TIME: 4:27 PM Primary Care Physician: Sahra Guy MD NIGHT AND WEEKEND COVERAGE: [place] COVERAGE: Days: [phone], please page attending physician. Nights: [phone], please page [place] Night coverage pager [phone]. 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 Patient is accompanied by her daughter. Per daughter, patient has had numerous falls since August of 2024. Most recent fall was on 12/04/2024. She was admitted to [facility]. At this time, CT L-spine and abdominal pelvis showed no acute findings or no traumatic subluxation or fracture. Neurology believed was likely generalized muscle weakness due to polio. UA was negative for UTI. Patient was advised to go to SNF on discharge but declined. She was started on amlodipine on discharge. She has been taking the medication as prescribed - denies dizziness, leg swelling, presyncope or syncope. Since discharge, patient complains of increased weakness and poorly controlled pain with heating pads, lidocaine patches, tramadol, hydrocodone and cyclobenzaprine. She also states that she has not had a bowel movement since . She has long standing left sided sciatic pain that is now limiting her ability to sleep in a bed. She sleeps sitting up and not using CPAP machine. However, her back pain from the fall is on the right side and midline (lumbar region). She describes it as constant, sharp and worse with movement rating it a 12 out of 10 at its worst. Home PT saw her today and recommended that she goes to SNF because her assisted living is not equipped to take care of her. Daughter has called [facility] - transitional care have beds available. Last BM on Thursday12/04/2024. Patient is not eating well because of nausea. She also states that she has a right sided hernia that causes intermittent pain but none right now. She denies chest pain, SOB, dizziness, abdominal pain/distension - other negative ROS found below. The history is provided by the patient and a relative. No language therapist was used. 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 Leukopenia Unspecified sleep apnea cpap PAST SURGICAL HISTORY Procedure Laterality Date APPENDECTOMY tubal ligation BLEPHAROPLASTY UPPER EYELID W/EXCESSIVE SKIN 2022 CARPAL TUNNEL RIGHT WRIST 07/2003 COLONOSCOPY 03/30/2013 normal exam EGD 03/30/2013 hiatal hernia, Anatolyary-Marshall Grade III reflux esophagitis, gastric polyps EGD 09/07/2018 SSBE noted on exam, not confirmed on biopsy, gastritis, neg H Pylori, fundic gland polyp IR KYPHOPLASTY LUMBAR 2006 L-3 LAPAROSCOPY SURG CHOLECYSTECTOMY 06/1999 Cholecystectomy, lap PAST SURGICAL HISTORY OF 2007 CMCJleft wrist PAST SURGICAL HISTORY OF child tendon transplants right ankle and both knees PAST SURGICAL HISTORY OF teens left great toe X 2 PAST SURGICAL HISTORY OF 1986 left rotator cuff repair and bone spur PAST SURGICAL HISTORY OF bone spur right shoulder RMVL SEC [facility]BRAN[facility] CTRC CORNEO-SCLL SCTJ Cataract removal left with lens implant FAMILY HISTORY Problem Relation Age of Onset Heart Mother Hypertension Mother Headache Mother Diabetes Father Diabetes Paternal Grandmother Stroke Brother Stroke Paternal Grandfather Heart Other Heart Paternal Uncle Heart Maternal Uncle Hypertension Sister Hypertension Brother Diabetes Son Seizures Other niece other (dementia) Maternal Aunt other (brain hemorrhage) Other cousin Social History Tobacco Use Smoking status: Never Passive exposure: Yes Smokeless tobacco: Never Tobacco comments: second hand smoke exposure. Vaping Use Vaping status: Never Used Substance Use Topics Alcohol use: Yes Comment: Rare Drug use: Never MEDICATIONS: Reviewed ALLERGIES Allergen Reactions Keflex [Cephalexin] Diarrhea, GI Upset extreme diarrhea Vioxx [Rofecoxib] Intolerance Makes capillaryblood vessels break Novocain [Procaine * Intolerance headaches Sumner-3 Fish Oil [O* Intolerance bleeding in eye Advil [Ibuprofen] Intolerance Makes capillary blood vessels bread Asa [Salicylates] Intolerance Makes capillary blood vessels break Revi (more content not included)... Normal [facility] CBC panel Auto (Bld)on 12-10 Erythrocyte distribution width (RBC) [Ratio] 12.4 % Normal 11.5-15.0 [facility] Comment on above: Order Comment: Speci men Type: BLOOD SPECIMENOrdering Facility: [facility] Address: [address] [place] [address] Performed By: #### 5 8410-2 ####KENDRICK LABORATORYCLIA [id number] [address] Hematocrit (Bld) [Volume fraction] 40.0 % Normal 36.0-46.0 [facility] Comment on above: Order Comment: Speci men Type: BLOOD SPECIMENOrdering Facility: [facility] Address: [address] [place] [address] Performed By: #### 5 8410-2 ####KENDRICK LABORATORYCLIA [id number] [address] Hemoglobin (Bld) [Mass/Vol] 13.8 g/dL Normal 11.5-15.5 [facility] Comment on above: Order Comment: Speci men Type: BLOOD SPECIMENOrdering Facility: [facility] Address: [address] [place] [address] Performed By: #### 5 8410-2 ####KENDRICK LABORATORYCLIA [id number] [address] MCH (RBC) [Entitic mass] 31.7 pg Normal 26.0-34.0 [facility] Comment on above: Order Comment: Speci men Type: BLOOD SPECIMENOrdering Facility: [facility] Address: [address] [place] [address] Performed By: #### 5 8410-2 ####KENDRICK LABORATORYCLIA [id number] [address] [place] [facility] MCHC (RBC) [Mass/Vol] 34.5 g/dL Normal 30.5-36.0 [facility] Comment on above: Order Comment: Speci men Type: BLOOD SPECIMENOrdering Facility: [facility] Address: [address] [place] [address] Performed By: #### 5 8410-2 ####KENDRICK LABORATORYCLIA [id number] [address] MCV (RBC) [Entitic vol] 91.7 fL Normal 80.0-100.0 [facility] Comment on above: Order Comment: Speci men Type: BLOOD SPECIMENOrdering Facility: [facility] Address: [address] [place] [address] Performed By: #### 5 8410-2 ####KENDRICK LABORATORYCLIA [id number] [place] [address] [place] Nucleated RBC (Bld) [#/Vol] 10*3/uL Normal <0.01 [facility] Comment on above: Order Comment: Speci men Type: BLOOD SPECIMENOrdering Facility: [facility] Address: [address] [place] [address] Performed By: #### 5 8410-2 ####KENDRICK LABORATORYCLIA [id number] [place] [address] [place] Platelet mean volume (Bld) [Entitic vol] 10.9 fL Normal 9.0-12.7 [facility] Comment on above: Order Comment: Speci men Type: BLOOD SPECIMENOrdering Facility: [facility] Address: [address] [place] [address] Performed By: #### 5 8410-2 ####KENDRICK LABORATORYCLIA [id number] [place] [address] [place] Platelets (Bld) [#/Vol] 205 10*3/uL Normal 150-400 [facility] Comment on above: Order Comment: Speci men Type: BLOOD SPECIMENOrdering Facility: [facility] Address: [address] [place] [address] Performed By: #### 5 8410-2 ####KENDRICK LABORATORYCLIA [id number] [place] [address] [place] RBC (Bld) [#/Vol] 4.36 10*6/uL Normal 3.90-5.20 [facility] Comment on above: Order Comment: Speci men Type: BLOOD SPECIMENOrdering Facility: [facility] Address: [address] [place] [address] Performed By: #### 5 8410-2 ####KENDRICK LABORATORYCLIA [id number] [place] [address] [place] WBC (Bld) [#/Vol] 7.99 10*3/uL Normal 3.70-11.00 [facility] Comment on above: Order Comment: Speci men Type: BLOOD SPECIMENOrdering Facility: [facility] Address: [address] [place] [address] Performed By: #### 5 8410-2 ####WELLINGTON LABORATORYCLIA [id number] [place] [address] [facility] [place] CNCOon 12-10-2024 CNCO Letter Text Normal [facility] CNDSon 12-10-2024 CNDS HNO ID: [id number] Author: DIANE WILSON MD Service: Hospital Medicine Author Type: Physician Type: Discharge Summary Filed: 12/12/2024 15:00 Note Text: DISCHARGE SUMMARY PATIENT NAME: Tena Cannon ADMISSION DATE: 12/08/2024 DISCHARGE DATE: 12/10/2024 ATTENDING PHYSICIAN: No att. providers found Code Status: Not on file Highest Readmission Risk Score: 16 The 30 day readmissions risk score is derived from an internally validated risk model which evaluates patient level characteristics, utilization history, medication orders and lab results up until the day of discharge. Patients with a score of 39 or above are considered highest risk for readmission. Specific patient level drivers will be listed at the bottom of the summary. CONSULTING TEAMS DURING HOSPITALIZATION: Neurology: Treatment Team: Primary Service: 1, [facility] REASON FOR HOSPITALIZATION: weakness, back pain FINAL DIAGNOSIS: sciatica Active Hospital Problems Diagnosis POA Frequent falls Yes Hypertension Unknown [facility] jail Yes BMI 37.0-37.9, adult Yes Dysphagia Yes Obstructive sleep apnea on CPAP Yes Postpoliomyelitis syndrome (HCC) Yes Restless legs syndrome (RLS) Yes Acute right-sided back pain Yes Resolved Hospital Problems No resolved problems to display. OPERATIONS DURING HOSPITALIZATION: None PROCEDURES DURING HOSPITALIZATION: No procedures performed HOSPITAL COURSE: 84 year old female presented with past medical history of iron deficiency anemia, and obstructive sleep apnea on CPAP, presented from her assisted living facility after being referred by her PCP for evaluation of a fall and generalized weakness. She is chronically wheelchari bound due to h/p post polio syndrome dx age 48. Worsening sciatica symptoms. AO x 3 no focal neurological deficit Labs showed unremarkable, COVID/flu/RSV negative urinalysis negative for UTI CT L-spine and abdominal pelvis show no acute findings or no traumatic subluxation or fracture Neurology believed was likely generalized muscle weakness due to polio. OT recommended SNF, she decliend to work with PT- she declined SNF and requested HHC at her Assisted living facility on discharge. She was started on amlodepine for high bp when she was having pain. F/u bp control with primary care. - referral to spine center for follow up and to neurology clinic Follow up pain control with primary care Transitions of Care Critical Issues: LABS AND PROCEDURES PENDING AT DISCHARGE: No pending results. PATIENT CONDITION AT DISCHARGE: Stable DISCHARGE DISPOSITION: Home with Home Health Discharge Physical Exam: VITAL SIGNS: BP 178/69 Pulse 77 Temp 36.6 ?C (97.9 ?F) (Oral) Resp 20 Ht 142.2 cm (4' 8) Wt 72.6 kg (160 lb 0.9 oz) SpO2 93% BMI 35.88 kg/m? GENERAL: Alert, no distress, cooperative EYES: PERRLA, EOMI OROPHARYNX: Lips, mucosa, and tongue normal. Teeth and gums normal. Oropharynx normal. LUNGS: Lungs clear to auscultation, Good diaphragmatic excursion CARDIAC: Normal S1 and S2; no rubs, murmurs, or gallops ABDOMEN: Abdomen soft, non-tender, BS normal, No masses or organomegaly NEURO: Gait normal. Reflexes normal and symmetric. Sensation grossly intact, Cranial nerves II-XII intact INFORMATION PROVIDED TO PATIENT: WOUND/SURGICAL SITE CARE: None DIET: Resume pre-hospital diet ACTIVITY: Resume pre-hospital activity ALLERGIES Allergen Reactions Keflex [Cephalexin] Diarrhea, GI Upset extreme diarrhea Vioxx [Rofecoxib] Intolerance Makes capillaryblood vessels break Novocain [Procaine * Intolerance headaches Sumner-3 Fish Oil [O* Intolerance bleeding in eye Advil [Ibuprofen] Intolerance Makes capillary blood vessels bread Asa [Salicylates] Intolerance Makes capillary blood vessels break DISCHARGE MEDICATION: Medication List START taking these medications amLODIPine 5 mg tablet Commonly known as: NORVASC Take 1 tablet by mouth two times a day. cyclobenzaprine 5 mg tablet Commonly known as: FLEXERIL Take 1 tablet by mouth two times a day as needed. oxyCODONE IR 5 mg immediate release tablet Commonly known as: ROXICODONE Take 1 tablet by mouth every 8 hours as needed for up to 5 days. CONTINUE taking these medications atropine 1 % ophthalmic solution B COMPLEX VITAMINS ORAL BIOFLEX ORAL BIOTIN ORAL brimonidine 0.1 % Drop Commonly known as: ALPHAGAN P CALCIUM 500 ORAL CLARITIN ORAL CPAP BipaP @ 14/9 cm of water with humidification, removable water dispenser (for cleaning) . Mask (small/ per patient preference) , filters, tubing, humidifier and lifetime supplies. (G47.33, Z99.89) Obstructive sleep apnea on CPAP cyclopentolate 1 % ophthalmic solution Commonly known as: CYCLOGYL * esomeprazole 40 mg capsule Commonly known as: NexIUM TAKE 1 CAPSULE DAILY BEFOREBREAKFAST. 1/2 HOUR BEFORE A MEAL * esomeprazole 40 mg capsule Commonly known as: NexIUM TAKE 1 (more content not included)... Normal [facility] Comprehensive metabolic 2000 panelon 12-10-2024 Albumin [Mass/Vol] 3.7 g/dL Low 3.9-4.9 [facility] Comment on above: Order Comment: Speckristi bronson Type: BLOOD SPECIMENOrdering Facility: [facility] Address: [address] [place] [address] Performed By: #### 2 4323-8 ####WELLINGTON LABORATORYCLIA [id number] [place] [address] [place] ALP [Catalytic activity/Vol] 69 U/L Normal 34-123 [facility] Comment on above: Order Comment: Speckristi bronson Type: BLOOD SPECIMENOrdering Facility: [facility] Address: [address] [place] [address] Performed By: #### 2 4323-8 ####WELLINGTON LABORATORYCLIA [id number] [place] [address] [place] ALT [Catalytic activity/Vol] 12 U/L Normal 7-38 [facility] Comment on above: Order Comment: Helena bronson Type: BLOOD SPECIMENOrdering Facility: [facility] Address: [address] [place] [address] Performed By: #### 2 4323-8 ####KENDRICK LABORATORYCLIA [id number] [place] [address] [place] Anion gap [Moles/Vol] 10 mmol/L Normal 8-15 [facility] Comment on above: Order Comment: Speci men Type: BLOOD SPECIMENOrdering Facility: [facility] Address: [address] [place] [address] Performed By: #### 2 4323-8 ####KENDRICK LABORATORYCLIA [id number] [place] [address] [place] AST [Catalytic activity/Vol] 17 U/L Normal 13-35 [facility] Comment on above: Order Comment: Speci men Type: BLOOD SPECIMENOrdering Facility: [facility] Address: [address] [place] [address] Performed By: #### 2 4323-8 ####KENDRICK LABORATORYCLIA [id number] [place] [address] [place] Bilirubin [Mass/Vol] 0.5 mg/dL Normal 0.2-1.3 [facility] Comment on above: Order Comment: Speci men Type: BLOOD SPECIMENOrdering Facility: [facility] Address: [address] [place] [address] Performed By: #### 2 4323-8 ####KENDRICK LABORATORYCLIA [id number] [place] [address] [place] Calcium [Mass/Vol] 9.7 mg/dL Normal 8.5-10.2 [facility] Comment on above: Order Comment: Speci men Type: BLOOD SPECIMENOrdering Facility: [facility] Address: [address] [place] [address] Performed By: #### 2 4323-8 ####KENDRICK LABORATORYCLIA [id number] [place] [address] [place] Chloride [Moles/Vol] 99 mmol/L Normal 98-107 [facility] Comment on above: Order Comment: Speci men Type: BLOOD SPECIMENOrdering Facility: [facility] Address: [address] [place] [address] Performed By: #### 2 4323-8 ####KENDRICK LABORATORYCLIA [id number] [place] [address] [place] CO2 [Moles/Vol] 28 mmol/L Normal 22-30 [facility] Comment on above: Order Comment: Speci men Type: BLOOD SPECIMENOrdering Facility: [facility] Address: [address] [place] [address] Performed By: #### 2 4323-8 ####KENDRICK LABORATORYCLIA [id number] [address] [place] [facility] Creatinine [Mass/Vol] 0.34 mg/dL Low 0.58-0.96 [facility] Comment on above: Order Comment: Speci men Type: BLOOD SPECIMENOrdering Facility: [facility] Address: [address] [place] [address] Performed By: #### 2 4323-8 ####KENDRICK LABORATORYCLIA [id number] [address] Creatinine and Glomerular filtration rate.predicted panel (S/P/Bld) 100 mL/min/1.73m??? Normal >=60 [facility] Comment on above: Order Comment: Speci men Type: BLOOD SPECIMENOrdering Facility: [facility] Address: [address] [place] [address] Result Comment: Sara mated Glomerular Filtration Rate (eGFR) is calculated using the 2020 CKD-EPI creatinine equation. This equation utilizes serum creatinine, sex, and age as parameters. The creatinine assay has traceable calibration to isotope dilution-mass spectrometry. Refer to KDIGO guidelines for clinical interpretation. In patients with unstable renal function, e.g. those with acute kidney injury, the eGFR may not accurately reflect actual GFR. Performed By: #### 2 4323-8 ####KENDRICK LABORATORYCLIA [id number] [address] Glucose [Mass/Vol] 95 mg/dL Normal 74-99 [facility] Comment on above: Order Comment: Noreeni aiyana Type: BLOOD SPECIMENOrdering Facility: [facility] Address: [address] [place] [address] Result Comment: The [place] [employer] (ADA) provides guidance for cutoff values for fasting glucose and random glucose. The ADA defines fasting as no caloric intake for at least 8 hours. Fasting plasma glucose results between 100 to 125 mg/dL indicate increased risk for diabetes (prediabetes). Fasting plasma glucose results greater than or equal to 126 mg/dL meet the criteria for diagnosis of diabetes. In the absence of unequivocal hyperglycemia, results should be confirmed by repeat testing. In a patient with classic symptoms of hyperglycemia or hyperglycemic crisis, random plasma glucose results greater than or equal to 200 mg/dL meet the criteria for diagnosis of diabetes. Reference: Standards of Medical Care in Diabetes 2016, [place] [employer]. Diabetes Care. 2016.39(Suppl 1). Performed By: #### 2 4323-8 ####KENDRICK LABORATORYCLIA [id number] [address] [place] Potassium [Moles/Vol] 3.6 mmol/L Low 3.7-5.1 [facility] Comment on above: Order Comment: Speci men Type: BLOOD SPECIMENOrdering Facility: [facility] Address: [address] [place] [address] Performed By: #### 2 4323-8 ####KENDRICK LABORATORYCLIA [id number] [address] Protein [Mass/Vol] 6.9 g/dL Normal 6.3-8.0 [facility] Comment on above: Order Comment: Speci men Type: BLOOD SPECIMENOrdering Facility: [facility] Address: [address] [place] [address] Performed By: #### 2 4323-8 ####KENDRICK LABORATORYCLIA [id number] [address] Sodium [Moles/Vol] 137 mmol/L Normal 136-144 [facility] Comment on above: Order Comment: Noreeni aiyana Type: BLOOD SPECIMENOrdering Facility: [facility] Address: [address] [place] [address] Performed By: #### 2 4323-8 ####KENDRICK LABORATORYCLIA [id number] [address] [place] Urea nitrogen [Mass/Vol] 12 mg/dL Normal 7-21 [facility] Comment on above: Order Comment: Noreeni men Type: BLOOD SPECIMENOrdering Facility: [facility] Address: [address] [place] [address] Performed By: #### 2 4323-8 ####KENDRICK LABORATORYCLIA [id number] [address] [facility] NTon 12-10-2024 THERAPY NT HNO ID: [id number] Author: MARCELINO JARQUIN PT Service: Physical Therapy Author Type: Physical Therapist Type: Therapy (PT/OT/Speech/Resp) Filed: 12/10/2024 13:12 Note Text: PHYSICAL THERAPY MISSED VISIT SERVICE DATE: 12/10/2024 SERVICE TIME: 1137 ROOM: [place] [address] Patient not seen due to Declined to Participate. Pt states plan is for transport home via ambulance--states she just got done talking to someone and discharge is in the works. Plans on re-establishing PT services once home (had had PT in her apt). States she will call for staff assist prn for transfers. Due to negative work up at hospital, she feels fine with going home. Dgt to assist dressing in the next few days. Does not ambulate and states her set up at home is more conducive to transfers than here in the hospital. Has lift chair that she sleeps in, scooter for distances outside of her apt, elevating w/c for inside the apt, and elevating commode. Declines PT at this time, states she will go home, not rehab. SIGNATURE: Marcelino Jarquin, PT PATIENT NAME: Tena Cannon DATE: December 10, 2024 TIME: 1:06 PM [facility] THERAPY NT HNO ID: [id number] Author: TENA LEY CCC-LEAD REFINERY SUPERVISOR Service: Speech/Swallow Author Type: Speech Language Pathologist Type: Therapy (PT/OT/Speech/Resp) Filed: 12/10/2024 09:25 Note Text: Summary: Speech Speech Therapy Clinical Swallow Evaluation SERVICE DATE: 12/10/2024 SERVICE TIME: 829 ROOM: [id number] IMPRESSION Swallow Deficits Identified / Suspected: Oral dysphagia Speech Rehab Potential: Excellent RECOMMENDATIONS Diet Recommendations Regular Consistency, Thin Liquids IDDSI Level 0 Swallow Strategy Recommendations Alternate bites and sips, Anti-Reflux precautions, Double swallows, Feed / Eat at a slow rate, Maintain an upright position 20-30 minutes following all oral intake, Sit upright 90 degrees for all PO, Small Bite/Sip, Supervision/Assistance for meals Nursing Recommendations Reinforce use of swallowing strategies, Routine Rigid Oral Hygiene Instrumental Swallow Study Recommendations Recommended Consults Response to Therapy Interventions: Able to recall previously taught information, Good participation in activities, Increased knowledge and awareness to deficits, Receptive family/caregivers Rehabilitation Precautions: Dysphagia DISCHARGE RECOMMENDATIONS Recommended Discharge Disposition: No further skilled speech therapy services anticipated CURRENT HOSPITAL COURSE fequent falls, poo PO intake Reason for Speech Therapy Consult: dysphagia reported by Pt Relevant Past Medical History: post polio syndrome, GERD, sleep apnea HOME ENVIRONMENT / PRIOR FUNCTIONAL LEVEL Prior Functional Level: Required Assistance Patient Lives With: Facility Care, Other: See Comment Assistance Required With: Self Care, Safety, Transportation (self fed) Assistance Available: 24 Hour Prior Swallowing Function/Diet Textures: Regular Consistency, Thin Liquids IDDSI Level 0 SUBJECTIVE Pt note difficuty with donuts AND yeasty breads THERAPY DIAGNOSIS Dysphagia, oral phase TREATMENT INTERVENTIONS Dysphagia Therapy (66928), Clinical Swallow Evaluation (71014) Skilled Treatment Time (minutes): 40 TRAINING AND EDUCATION PROVIDED IN Caregiver Education, Dietary Consistencies, Dysphagia Management, Results and Recommendations of Session, Swallowing Strategies, Respiratory Support / Assessment THERAPEUTIC SKILLS USED Analyze current use of strategies taught, Education on role of discipline / importance of activity, Family / caregiver counseling / training, Instruction in self-monitoring / self-assessment, Teach-back for confirmation of education provided, Verbal cuing, Written cuing OBJECTIVE Current Status Oral Hygiene: Clear, moist oral cavity Dentition: Retains Natural Dentition Current 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: Oral Current Diet Textures: Regular Consistency, Thin Liquids IDDSI Level 0 Current Level Of Communication: Verbal Current Management Of Secretions: Strong cough, Able to self-manage Oral Motor Exam: Within Functional Limits SWALLOW ASSESSMENT Position Of Patient During Assessment: Upright In Bed (following education, Pt demonstrate frequent re-positioning) 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: 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 REFINERY 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 Patient Consistencies Presented: Thin Liquids IDDSI Level 0, Pureed Solids IDDSI Level 4, Soft and Bite-Sized Solids IDDSI Level 6, Solid Thin Liquids Pharyngeal Phase: (no cough or throat clear; Pt use of small sips with self monitoring) Pureed Solids Pharyngeal Phase: (tolerating without difficulty) Soft and Bite-Sized Solids Oral Phase: (adequate mastication; no oral residue) Soft and Bite-Sized Solids Pharyngeal Phase: (no cough or throat clear) Solid Oral Phase: Impaired Mastication (educate Pt on adequate positioning AND jaw stability as related to safe PO intake; Pt recall via Teach back) Solid Pharyngeal Phase: (no cough or throat clear) Response to Swallow Interventions: - Pt agreeable to all PO trials presented - Pt tolerating textures following education for safe swallow strategies/ self monitoring; recall via Teach Back and demonstration - Initially, decreased mastication on Solids; educate on jaw stability - written materials to patient for safe swallow skills - Pt able to recall previous swallow evaluation (2022) - Pt note increased nausea since fall; decreased PO intake Compensatory Strategies Utilized During Assessment: Alternate bites and sips, Anti-Reflux precautions, Double swallows, Feed / Eat at a slow rate, Limit Distractions, Maintain an upright position 20-30 minutes following all oral intake, Pulmonary monitoring, Self-monitoring, Sit upright 90 degrees for all PO, Small Bite/Sip, Supervision/Assistance for meals., Oral Care before and after meals Rogers Swallow Protocol: Fail Fail: Patient stopping prior to completion (small sips) Suspected Esophageal Deficits: PMHx: GERD (more content not included)... Normal [facility] ACETYLCHOLINE REC BINDING AB on 12-09-2024 ACETYLCHOLINE BINDING, QUAL Negative Normal Negative [facility] Comment on above: Order Comment: Speci men Type: BLOOD SPECIMENOrdering Facility: [facility] Address: [address] [place] [address] Result Comment: Anti -acetylcholine receptor binding antibody test is used as an aid in diagnosis of myasthenia gravis. A negative result cannot exclude myasthenia gravis. Clinical correlation is required. Performed By: #### A CHRAB ####[facility] LABCLIA [id number] [place] Acetylcholine receptor binding Ab (S) [Moles/Vol] 0.03 nmol/L Normal <0.21 [facility] Comment on above: Order Comment: Speci men Type: BLOOD SPECIMENOrdering Facility: [facility] Address: [address] [place] [address] Performed By: #### A CHRAB ####[facility] LABCLIA [id number] [address] [place] ALLIED HEALTHon 12-09-2024 [facility] HNO ID: [id number] Author: JONATHAN MARSHALL Tech Service: Radiology Author Type: Dining Room Attendant Type: [facility] Filed: 12/09/2024 16:52 Note Text: Radiology Service Progress Note PATIENT NAME: Tena Cannon DATE OF SERVICE: December 09, 2024 TIME: 4:51 PM PATIENT IDENTITY VERIFICATION COMPLETED USING TWO (2) IDENTIFIERS: Name and Date of confirmed by patient verbally. FALL SCREENING: Has the patient had 2 falls in the last year or 1 fall with injury or currently using an Ambulatory Assistive Device (Walker, Cane, Wheelchair, Crutches, etc.)? Inpatient: Screened on floor PATIENT GENDER DATA: Assigned female at . status: : No status: NO. PATIENT RELEVANT IMPLANT DATA REVIEWED: Not Applicable PATIENT PRESENTS WITH AN IMPLANTABLE OR ATTACHED EDGE DRUMMER: No RADIOLOGY DEPARTMENT: Ultrasound PERIPHERAL IV DATA: Not applicable SIGNED BY: David Bone December 09, 2024 4:51 PM Normal [facility] HNO ID: [id number] Author: SRIKANTH MEDINA Tech Service: ? Author Type: Dining Room Attendant Type: [facility] Filed: 12/09/2024 15:22 Note Text: Radiology Service Progress Note PATIENT NAME: Tena Cannon DATE OF SERVICE: December 09, 2024 TIME: 3:21 PM PATIENT IDENTITY VERIFICATION COMPLETED USING TWO (2) IDENTIFIERS: Name and Date of confirmed by patient verbally. FALL SCREENING: Has the patient had 2 falls in the last year or 1 fall with injury or currently using an Ambulatory Assistive Device (Walker, Cane, Wheelchair, Crutches, etc.)? Inpatient: Screened on floor PATIENT GENDER DATA: Assigned female at . status: : No status: NO. PATIENT RELEVANT IMPLANT DATA REVIEWED: Not Applicable PATIENT PRESENTS WITH AN IMPLANTABLE OR ATTACHED EDGE DRUMMER: No RADIOLOGY DEPARTMENT: General X-ray: Exam(s) Completed: Pelvis X-Ray: Pelvis with Hip Right and Pelvis inlet/outlet PERIPHERAL IV DATA: Not applicable SIGNED BY: David Martinez December 09, 2024 3:21 PM Normal [facility] CBC panel Auto (Bld)on 12-09 Erythrocyte distribution width (RBC) [Ratio] 12.5 % Normal 11.5-15.0 [facility] Comment on above: Order Comment: Speci men Type: BLOOD SPECIMENOrdering Facility: [facility] Address: [address] [place] [address] Performed By: #### 5 8410-2 ####KENDRICK LABORATORYCLIA [id number] [address] Hematocrit (Bld) [Volume fraction] 37.0 % Normal 36.0-46.0 [facility] Comment on above: Order Comment: Speci men Type: BLOOD SPECIMENOrdering Facility: [facility] Address: [address] [place] [address] Performed By: #### 5 8410-2 ####KENDRICK LABORATORYCLIA [id number] [address] [place] Hemoglobin (Bld) [Mass/Vol] 12.9 g/dL Normal 11.5-15.5 [facility] Comment on above: Order Comment: Speci men Type: BLOOD SPECIMENOrdering Facility: [facility] Address: [address] [place] [address] Performed By: #### 5 8410-2 ####KENDRICK LABORATORYCLIA [id number] [address] [place] MCH (RBC) [Entitic mass] 32.2 pg Normal 26.0-34.0 [facility] Comment on above: Order Comment: Speci men Type: BLOOD SPECIMENOrdering Facility: [facility] Address: [address] [place] [address] Performed By: #### 5 8410-2 ####KENDRICK LABORATORYCLIA [id number] [address] MCHC (RBC) [Mass/Vol] 34.9 g/dL Normal 30.5-36.0 [facility] Comment on above: Order Comment: Speci men Type: BLOOD SPECIMENOrdering Facility: [facility] Address: [address] [place] [address] Performed By: #### 5 8410-2 ####KENDRICK LABORATORYCLIA [id number] [address] MCV (RBC) [Entitic vol] 92.3 fL Normal 80.0-100.0 M [facility] Comment on above: Order Comment: Speci men Type: BLOOD SPECIMENOrdering Facility: [facility] Address: [address] [place] [address] Performed By: #### 5 8410-2 ####KENDRICK LABORATORYCLIA [id number] [address] Nucleated RBC (Bld) [#/Vol] 10*3/uL Normal <0.01 [facility] Comment on above: Order Comment: Speci men Type: BLOOD SPECIMENOrdering Facility: [facility] Address: [address] [place] [address] Performed By: #### 5 8410-2 ####KENDRICK LABORATORYCLIA [id number] [address] Platelet mean volume (Bld) [Entitic vol] 10.8 fL Normal 9.0-12.7 [facility] Comment on above: Order Comment: Speci men Type: BLOOD SPECIMENOrdering Facility: [facility] Address: [address] [place] [address] Performed By: #### 5 8410-2 ####KENDRICK LABORATORYCLIA [id number] [address] [place] Platelets (Bld) [#/Vol] 184 10*3/uL Normal 150-400 [facility] Comment on above: Order Comment: Speci men Type: BLOOD SPECIMENOrdering Facility: [facility] Address: [address] [place] [address] Performed By: #### 5 8410-2 ####KENDRICK LABORATORYCLIA [id number] [place], [place] [id number] [place] [address] RBC (Bld) [#/Vol] 4.01 10*6/uL Normal 3.90-5.20 [facility] Comment on above: Order Comment: Speci men Type: BLOOD SPECIMENOrdering Facility: [facility] Address: [address] [place], [place] [address] Performed By: #### 5 8410-2 ####KENDRICK LABORATORYCLIA [id number] [place] [address] [facility] WBC (Bld) [#/Vol] 6.41 10*3/uL Normal 3.70-11.00 [facility] Comment on above: Order Comment: Speci men Type: BLOOD SPECIMENOrdering Facility: [facility] Address: [address] [place] [address] Performed By: #### 5 8410-2 ####KENDRICK LABORATORYCLIA [id number] [place] [id number] [facility] CONSULTon 12-09-2024 CONSULT HNO ID: [id number] Author: MILI MANZANARES MD Service: Neurology General Author Type: Physician Type: Consults Filed: 12/09/2024 16:28 Note Text: The Teleneurologist or LULI is available from 8 am to 5 pm on weekdays. On weekends, at [facility] and [place], the Teleneurologist or LULI is available from 8 am to 5 pm, [facility] 8 am to 12 pm, [facility] 1 pm to 5 pm, [facility] 8 am to 12 pm, [facility] 1 pm to 5 pm. Statutory holidays do not have teleneuro coverage. [facility]: During Off hours for Teleneurology please page (not call) [place] [facility] [phone] animal cruelty investigation supervisor for concerns. [facility]: During Off hours for Teleneurology please page (not call) [place] [facility] [phone] animal cruelty investigation supervisor for concerns. [facility]: There is no off-hours coverage for Teleneurology. NEUROLOGY CONSULTATION Thank you for the consultation request. Name: Tena Cannon Age: [age] year old Gender: female Chief Complaint:Fall (Sent in from pcp to see if kidney infx or uti.had fall sun. Been weak, tired, nausea and back pain since fall Thursday from scooter.) Admission Date: 12/08/2024 Consult Requested By: , recommendations will be communicated by shared medical record. 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 She has back pain after she fell. Patient notes that she had polio at age 6 when she was paralyzed from her neck down. She recovered partially and then being functional till about 2 years back when she started having more and more difficulty with walking. She has not been able to walk for quite a while. She fell forward from her wheelchair and landed on her buttocks. She has had persistent back pain. CT of the lumbar spine does not show any evidence of fracture. Limited inpatient notes copied for reference 84-year-old female with a past medical history of hypertension, iron deficiency anemia, and obstructive sleep apnea on CPAP, presented from her assisted living facility after being referred by her PCP for evaluation of a fall and generalized weakness. The patient reports that on 12/25, she fell forward from her wheelchair and landed on her buttocks. Since the fall, she has been experiencing persistent back pain. Patietn states that she started noticing worsening weakness and increased frequency of falls for the past few months.She endorses dysphagia over the past two months, particularly with solid foods such as bread. Her medical history is notable for childhood polio and post-polio syndrome diagnosed at age 48, which led to loss of ambulation and wheelchair dependence. She has not followed with a neurologist in several years. She also complains of chronic sciatica and has been sleeping in a recliner for several months. She has a known intolerance to NSAIDs due to concerns for ocular bleeding and reports minimal medication use aside from occasional Tylenol. She is able to take tramadol if needed. The patient denies head trauma, fever, chills, chest pain, dyspnea, urinary symptoms, abdominal pain, nausea, or vomiting. Her PCP noted poor oral intake and right flank pain, prompting the referral. - fall from wheelchair with persistent back pain. Imaging (CT L-spine, abdomen/pelvis) shows no fracture or subluxation. Pain appears musculoskeletal in nature. -Chronic sciatica and long-term wheelchair use may contribute to discomfort. -worsening weakness and increased frequency of falls for the past few months.She endorses dysphagia over the past two months, particularly with solid foods such as bread. Plan - Swallowing evaluation - PT evaluation - pain control with lidocaine patch/ tylenol or tramadol -Teleneuroconsult - outpatient neurology referral for reassesment fo post polio syndrome and progressive weakness Physical examination BP 145/60 Pulse 90 Temp 36.5 ?C (97.7 ?F) (Oral) Resp 18 Ht 142.2 cm (4' 8) Wt 72.6 kg (160 lb 0.9 oz) SpO2 96% BMI 35.88 kg/m? She is awake and alert. Oriented x 3. Speech and language are normal. 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 She has proximal weakness on the left side. She cannot lift either of her legs. She has some distal movement of her legs. Sensation is intact in the legs as well as arms. Speech and language are intact. She appears to have some difficulty breathing which she denies. Impression and Recommendations Severe generalized muscle weakness secondary to polio. There is no specific treatment for postpolio syndrome. She may benefit from an evaluation through neuromuscular consults as outpatient. I offered this to her. She has mechanical back pain. She is currently getting pain medications. I do not have anything else to offer. She may benefit from an outpatient management program. Assessment AND Plan Frequent falls Low back pain Restless legs syndrome (RLS) Post-polio syndrome (HCC) Obstructive sleep apnea on CPAP Fal (more content not included)... Normal [facility] CRP SerPl-mCncon 12-09-2024 CRP [Mass/Vol] 2.1 mg/dL High <0.9 [facility] Comment on above: Order Comment: Speci men Type: BLOOD SPECIMENOrdering Facility: [facility] Address: [address] [place] [address] Performed By: #### 2 4362-6, 1987-12 ####[facility] LABORATORYCLIA [id number] [place] [address] [place] ECG COMPLETEon 12-09-2024 ECG COMPLETE Ventricular Rate : 8 2 BPM Atrial Rate : 82 BPM P-R Interval : 206 ms QRS Duration : 86 ms Q-T Interval : 350 ms QTC Calculation(Bazett) : 408 ms Calculated P [place] : 49 degrees Calculated R [place] : -10 degrees Calculated T [place] : 35 degrees NORMAL SINUS RHYTHM WITH SINUS ARRHYTHMIA NORMAL ECG WHEN COMPARED WITH ECG OF 29-Jul-2018 10:48, NO SIGNIFICANT CHANGE WAS FOUND Confirmed by WOLF MUNOZ MD ([id number]) on 12/09/2024 5:41:23 PM NAME : TENA CANNON PID : [id number] : 1940 Gender : Female Race : ORD : [id number] Procedure Date : Dec 09 2024 01:11:37 Edit Date : Dec 09 2024 17:41:24 Diagnosis: NORMAL SINUS RHYTHM WITH SINUS ARRHYTHMIA NORMAL ECG WHEN COMPARED WITH ECG OF 29-Jul-2018 10:48, NO SIGNIFICANT CHANGE WAS FOUND Confirmed by WOLF MUNOZ MD ([id number]) on 12/09/2024 5:41:23 PM Test Reason : Arrhythmia Location : 5 : 3S 0323 Overread By : WOLF MUNOZ MD Edited By : WOLF MUNOZ MD Referred By : , Acquired by : Elton Woody, Dulce Maria [facility] Renal function 2000 panelon 12-09-2024 Albumin [Mass/Vol] 3.6 g/dL Low 3.9-4.9 [facility] Comment on above: Order Comment: Speci men Type: BLOOD SPECIMENOrdering Facility: [facility] Address: [address] [place] [address] Performed By: #### 2 4362, 1987-12 ####WE[facility] LABORATORYCLIA [id number] [place] [address] [place] Anion gap [Moles/Vol] 12 mmol/L Normal 8-15 [facility] Comment on above: Order Comment: Speci men Type: BLOOD SPECIMENOrdering Facility: [facility] Address: [address] [place] [address] Performed By: #### 2 43609-08, 1987-12 ####[facility] LABORATORYCLIA [id number] [place] [address] [place] Calcium [Mass/Vol] 9.5 mg/dL Normal 8.5-10.2 [facility] Comment on above: Order Comment: Speci men Type: BLOOD SPECIMENOrdering Facility: [facility] Address: [address] [place] [address] Performed By: #### 2 4366, 1987-12 ####KENDRICK LABORATORYCLIA [id number] [place] [address] [place] Chloride [Moles/Vol] 100 mmol/L Normal 98-107 [facility] Comment on above: Order Comment: Speci men Type: BLOOD SPECIMENOrdering Facility: [facility] Address: [address] [place] [address] Performed By: #### 2 4366, 1987-12 ####KENDRICK LABORATORYCLIA [id number] [place] [id number] [place] CO2 [Moles/Vol] 23 mmol/L Normal 22-30 [facility] Comment on above: Order Comment: Speci men Type: BLOOD SPECIMENOrdering Facility: [facility] Address: [address] [place] [address] Performed By: #### 2 4366, 1987-12 ####KENDRICK LABORATORYCLIA [id number] [place] [id number] [place] Creatinine [Mass/Vol] 0.31 mg/dL Low 0.58-0.96 [facility] Comment on above: Order Comment: Speci men Type: BLOOD SPECIMENOrdering Facility: [facility] Address: [address] [place] [address] Performed By: #### 2 43626, 1987-12 ####KENDRICK LABORATORYCLIA [id number] [place] [id number] [facility] [place] Creatinine and Glomerular filtration rate.predicted panel (S/P/Bld) 103 mL/min/1.73m??? Normal >=60 [facility] Comment on above: Order Comment: Speci men Type: BLOOD SPECIMENOrdering Facility: [facility] Address: [address] [place] [address] Result Comment: Sara mated Glomerular Filtration Rate (eGFR) is calculated using the 2020 CKD-EPI creatinine equation. This equation utilizes serum creatinine, sex, and age as parameters. The creatinine assay has traceable calibration to isotope dilution-mass spectrometry. Refer to KDIGO guidelines for clinical interpretation. In patients with unstable renal function, e.g. those with acute kidney injury, the eGFR may not accurately reflect actual GFR. Performed By: #### 2 43609-08, 1987-12 ####KENDRICK LABORATORYCLIA [id number] [place] [address] [place] Glucose [Mass/Vol] 121 mg/dL High 74-99 [facility] Comment on above: Order Comment: Helena bronson Type: BLOOD SPECIMENOrdering Facility: [facility] Address: [address] [place], [place] [address] Result Comment: The [place] Diabetes Association (ADA) provides guidance for cutoff values for fasting glucose and random glucose. The ADA defines fasting as no caloric intake for at least 8 hours. Fasting plasma glucose results between 100 to 125 mg/dL indicate increased risk for diabetes (prediabetes). Fasting plasma glucose results greater than or equal to 126 mg/dL meet the criteria for diagnosis of diabetes. In the absence of unequivocal hyperglycemia, results should be confirmed by repeat testing. In a patient with classic symptoms of hyperglycemia or hyperglycemic crisis, random plasma glucose results greater than or equal to 200 mg/dL meet the criteria for diagnosis of diabetes. Reference: Standards of Medical Care in Diabetes 2016, [place] Diabetes Association. Diabetes Care. 2016.39(Suppl 1). Performed By: #### 2 43609-08, 1987-12 ####KENDRICK LABORATORYCLIA [id number] [place] [address] [place] Phosphate [Mass/Vol] 2.8 mg/dL Normal 2.7-4.8 [facility] Comment on above: Order Comment: Helena bronson Type: BLOOD SPECIMENOrdering Facility: [facility] Address: [address] [place] [address] Performed By: #### 2 43609-08, 1987-12 ####WE[facility] LABORATORYCLIA [id number] [place] [address] [place] Potassium [Moles/Vol] 3.8 mmol/L Normal 3.7-5.1 [facility] Comment on above: Order Comment: Helena bronson Type: BLOOD SPECIMENOrdering Facility: [facility] Address: [address] [place] [address] Performed By: #### 2 [address], 1987-12 ####KENDRICK LABORATORYCLIA [id number] [address] Sodium [Moles/Vol] 135 mmol/L Low 136-144 [facility] Comment on above: Order Comment: Speci men Type: BLOOD SPECIMENOrdering Facility: [facility] Address: [address] [place] [address] Performed By: #### 2 [address], 1987-12 ####KENDRICK LABORATORYCLIA [id number] [address] [place] Urea nitrogen [Mass/Vol] 15 mg/dL Normal 7-21 [facility] Comment on above: Order Comment: Speci men Type: BLOOD SPECIMENOrdering Facility: [facility] Address: [facility] [place] [address] Performed By: #### 2 [address], 1987-12 ####KENDRICK LABORATORYCLIA [id number] [address] [facility] THERAPY NTon 12-09-2024 THERAPY NT HNO ID: [id number] Author: WHIT MONSON CCC-BRIGIDO Service: Speech/Swallow Author Type: Speech Language Pathologist Type: Therapy (PT/OT/Speech/Resp) Filed: 12/09/2024 15:07 Note Text: Summary: LEAD REFINERY SUPERVISOR Missed Visit SPEECH THERAPY MISSED VISIT SERVICE DATE: 12/09/2024 SERVICE TIME: 1507 ROOM: [id number] ([facility]) Patient not seen due to Test / Procedure. -pt is off the floor at this time. SIGNATURE: Whit Darling [facility]-LEAD REFINERY SUPERVISOR PATIENT NAME: Tena Cannon DATE: December 09, 2024 TIME: 3:07 PM Normal [facility] THERAPY NT HNO ID: [id number] Author: MARTHA DAMON OT/Safia Service: Occupational Therapy Author Type: Occupational Therapist Type: Therapy (PT/OT/Speech/Resp) Filed: 12/09/2024 13:06 Note Text: Summary: OT Evaluation Occupational Therapy Evaluation Summary SERVICE DATE: 12/09/2024 SERVICE TIME: 1149 to 1241 ROOM: [place] [address] OT 6 Clicks Score: 13 DISCHARGE RECOMMENDATIONS Subacute/SNF Recommended Discharge Disposition Due to: Functional deficits requiring ongoing therapy service prior to discharge home., ADL impairment, Functional status decline ASSESSMENT Response to Therapy Interventions: Limited Participation, Low Activity Tolerance, Pain, Requires Additional Time to Complete Activities due to pain level/nausea and need for encouragement, Requires Encouragement to Complete All Activities Patient declined out of bed activity secondary to low back pain. C/o nausea post- bed mobility with patient relating to increased pain with movement. PRECAUTIONS Bed/Chair Alarm, Lines/Tubes/Drains, Fall Risk CURRENT HOSPITAL COURSE Presents to ED after being referred by her PCP for evaluation of a fall and generalized weakness. Admitting dx: Frequent falls. Relevant Past Medical History: childhood polio, post-polio syndrome, GERD, Unspecified sleep apnea, Iron deficiency anemia, lumbar kyphoplasty, L rotator cuff repair HOME LIVING Patient Lives With: Facility Care, Other: See Comment Comments: Frederika at [facility] in [place] Assistance Available: 24-Hour Entry To Home: No Stairs Number Of Stairs To Bed/Bath: 0 Laundry: facility completes Equipment Owned: Lift Chair, Elevated Toilet Seat, Grab Bars- Shower, Grab Bars- Toilet, Extended Tub Bench, Emergency Response System, Scooter- Power, Wheelchair- Power, Grab Bars- Bed (walker) PRIOR FUNCTIONAL LEVEL Required Assistance, History of Falls Assistance Required With: Cleaning, Laundry, Meals, Shopping, Transportation Per pt: Sleeps in electric recliner, hx 3-4 falls since July (when transferring to/from scooter AND w/c)- has since called for staff to be present during transfers. Indep transfers to/from toilet, Modified indep ADLs (sits on shower bench, however, recently sponge bathing due to recent fall). Uses electric scooter and electric w/c for mobility (stand pivots w/use of walker). SUBJECTIVE Upon OT approach, patient in need of being repositioned in bed and c/o significant low back pain. Patient/PCNA report patient recently sitting EOB for orthostatic vitals, however, was unable to stand. COGNITION Responsiveness: Alert, Awake THERAPY DIAGNOSIS Reduced mobility-other, Decreased activities of daily living (ADL) TREATMENT INTERVENTIONS Evaluation, Self Mcc Management (34101) Timed Code Treatment (minutes): 24 Skilled Treatment Time (minutes): 42 TRAINING AND EDUCATION PROVIDED Feeding Tasks, Insight into Deficits, Pain Management, Bed Mobility, Benefits of In-Hospital Mobility, Self-Expression/Advoca cy, Role of Occupational Therapy, Expected Functional Level, Positioning (for feeding, for comfort in supine, for RLE and BUE for optimal positioning) THERAPEUTIC SKILLS USED Activity Dosing, Bed in Chair Position, Cues for Sequencing/Proper Technique for Activity, Cuing Verbal, Cuing Visual, Cuing Tactile, Movement Facilitation, Physical Assist, Therapeutic Use of Self FUNCTIONAL STATUS Activities of Daily Living Assist Level Additional Information Feeding Set Up, Additional Information HOB elevated, BUE positioned on folded blankets, tray table positioned for increased access of meal. Able to load fork with fruit w/out difficulty. Grooming Minimal Assistance, Additional Information anticipated for bed level/supported sitting grooming Bathing Upper Body Moderate Assistance Bathing Lower Body Total Assistance Dressing Upper Body Maximal Assistance Dressing Lower Body Total Assistance Toileting Total Assistance Mobility Assist Level Additional Information Bed Mobility Rolling: Maximal Assistance, Additional Information to R/L, HOB min elevated per pt request, cued in active use of BUEs/reach to bed rails, 2 trials each direction. Required rest break between each roll due to increased pain and cues for pain mgmt technique. Extended time to complete. Supine To Sit: Additional Information pt declined due to current pain level and recent attempt at sitting EOB w/nursing Sit to Stand Stand to Sit Bed to Chair Toilet/Commode Shower Functional Mobility GOALS Patient will demonstrate progress to optimize self-care activities, cognitive and/or coping to maximize function upon discharge. Progress Toward Goals: Progressing slower than expected due to pain level Rehab Potential: Fair PLAN OT Frequency: 3 Times Per (more content not included)... [facility] THERAPY NT HNO ID: [id number] Author: TENA LEY CCC-LEAD REFINERY SUPERVISOR Service: Speech/Swallow Author Type: Speech Language Pathologist Type: Therapy (PT/OT/Speech/Resp) Filed: 12/09/2024 11:02 Note Text: Summary: Speech - missed [facility] SPEECH THERAPY MISSED VISIT NOTE SERVICE DATE: 12/09/2024 SERVICE TIME: 10:10 AM Attempted patient therapy visit, but was unable for the following reason(s): - attempted Speech therapy - Pt unavailable; another service at bedside -- Will re-attempt as schedule AND Patient availability permits SIGNATURE: Tena Ley CCC-LEAD REFINERY SUPERVISOR PATIENT NAME: Tena Cannon DATE: December 09, 2024 TIME: 11:02 AM [facility] US DVT LOWER BILon US DVT LOWER LATISHA * * *Final Report* * * DATE OF EXAM: Dec 09 2024 4:51PM MDU 1005 - US DVT LOWER LATISHA / PROCEDURE REASON: Leg pain or tenderness * * * * Physician Interpretation * * * * EXAMINATION: RIGHT AND LEFT LOWER EXTREMITY DEEP VENOUS ULTRASOUND WITH DOPPLER IMAGING CLINICAL HISTORY: Leg pain or tenderness. Swelling TECHNIQUE: Grayscale with compression maneuvers, color Doppler and spectral Doppler imaging of the right and left proximal deep veins was performed. Grayscale with compression maneuvers of the right and left peroneal and posterior tibial veins was performed. The right and left great and small saphenous veins were evaluated at their insertion to the deep system. Images were obtained and stored in a permanent archive. MQ: [id number] COMPARISON: None RESULT: RIGHT LOWER EXTREMITY PROXIMAL DEEP VEINS Distal External Iliac, Common Femoral and Proximal Profunda Veins: Compression: Normal Doppler: Normal, spontaneous respirophasic flow. Normal response to augmentation. Femoral vein: Compression: Normal Doppler: Normal, spontaneous respirophasic flow. Normal response to augmentation. Popliteal vein: Compression: Normal Doppler: Normal, spontaneous respirophasic flow. Normal response to augmentation. CALF DEEP VEINS Peroneal veins: Normal compression. Posterior tibial veins: Normal compression. Gastrocnemius and Soleal veins: Not imaged. SUPERFICIAL VEINS Great saphenous: Patent and compressible at insertion into common femoral vein; not otherwise assessed. Small Saphenous: Patent and compressible in the proximal calf, not otherwise assessed. LEFT LOWER EXTREMITY PROXIMAL DEEP VEINS Distal External Iliac, Common Femoral and Proximal Profunda Veins: Compression: Normal Doppler: Normal, spontaneous respirophasic flow. Normal response to augmentation. Femoral vein: Compression: Normal Doppler: Normal, spontaneous respirophasic flow. Normal response to augmentation. Popliteal vein: Compression: Normal Doppler: Normal, spontaneous respirophasic flow. Normal response to augmentation. CALF DEEP VEINS Peroneal veins: Normal compression. Posterior tibial veins: Normal compression. Gastrocnemius and Soleal veins: Not imaged. SUPERFICIAL VEINS Great saphenous: Patent and compressible at insertion into common femoral vein; not otherwise assessed. Small Saphenous: Patent and compressible in the proximal calf, not otherwise assessed. IMPRESSION: Negative study for proximal DVT in the left and right lower extremities. Negative study for calf DVT in the left and right lower extremities. Negative study for superficial thrombophlebitis in the imaged segments of the left and right lower extremities. Duct Layer Helper: RYAN Transcribe Date/Time: Dec 09 2024 4:55P Dictated by : JEANNETTE ELDER MD This examination was interpreted and the report reviewed and electronically signed by: JEANNETTE ELDER MD on Dec 09 2024 4:55PM EST [id number] [facility] XR HIP 3V PELV+ AP/LAT RTon 12-09-2024 XR HIP 3V PELV+ AP/LAT RT * * *Final Report* * * DATE OF EXAM: Dec 09 2024 3:21PM MDX 5352 - XR HIP 3V PELV+ AP/LAT RT / PROCEDURE REASON: Hip pain, acute, fx suspected, initial exam * * * * Physician Interpretation * * * * 2 studies discussed below: EXAM(s): XR PELVIS 2V INLET/OUTLET, XR HIP 3V PELV+ AP/LAT RT EXAM DATE/TIME: 12/09/2024 3:21 PM HISTORY: 84 years old Clinical information: Hip pain LOWER RIGHT BACK PAIN TECHNIQUE: Images: XR PELVIS 2V INLET/OUTLET, XR HIP 3V PELV+ AP/LAT RT Comparison: CT abdomen pelvis 12/08/2024 RESULT: Findings: Pelvis: No fractures or dislocations are seen. Marked narrowing of the hip joints. Fractures of the hips cannot be excluded on this exam however none were identified on the CT abdomen pelvis yesterday on 12/08/2024. Severe degenerative changes in the lower lumbar spine RIGHT hip sclerotic patella: No fractures or dislocations are seen. IMPRESSION: Very limited evaluation of the hips on plain films. No gross evidence of fractures. No fractures were identified on CT abdomen pelvis. 12/08/2024. If The patient has not fallen since the CT abdomen pelvis those images should satisfy evaluation of the hips. Duct Layer Helper: RYAN Transcribe Date/Time: Dec 09 2024 3:26P Dictated by : QUINCY SALAS DO This examination was interpreted and the report reviewed and electronically signed by: QUINCY SALAS DO on Dec 09 2024 3:31PM EST [id number] [facility] XR PELVIS 2V INLET/OUTLETon 12-09-2024 XR PELVIS 2V INLET/OUTLET * * *Final Report* * * DATE OF EXAM: Dec 09 2024 3:21PM MDX 5240 - XR PELVIS 2V INLET/OUTLET / PROCEDURE REASON: Hip pain * * * * Physician Interpretation * * * * 2 studies discussed below: EXAM(s): XR PELVIS 2V INLET/OUTLET, XR HIP 3V PELV+ AP/LAT RT EXAM DATE/TIME: 12/09/2024 3:21 PM HISTORY: 84 years old Clinical information: Hip pain LOWER RIGHT BACK PAIN TECHNIQUE: Images: XR PELVIS 2V INLET/OUTLET, XR HIP 3V PELV+ AP/LAT RT Comparison: CT abdomen pelvis 12/08/2024 RESULT: Findings: Pelvis: No fractures or dislocations are seen. Marked narrowing of the hip joints. Fractures of the hips cannot be excluded on this exam however none were identified on the CT abdomen pelvis yesterday on 12/08/2024. Severe degenerative changes in the lower lumbar spine RIGHT hip sclerotic patella: No fractures or dislocations are seen. IMPRESSION: Very limited evaluation of the hips on plain films. No gross evidence of fractures. No fractures were identified on CT abdomen pelvis. 12/08/2024. If The patient has not fallen since the CT abdomen pelvis those images should satisfy evaluation of the hips. Duct Layer Helper: RYAN Transcribe Date/Time: Dec 09 2024 3:26P Dictated by : QUINCY SALAS DO This examination was interpreted and the report reviewed and electronically signed by: QUINCY SALAS DO on Dec 09 2024 3:31PM EST [id number] [facility] ALLIED HEALTHon 12-08-2024 ALLIED HEALTH HNO ID: [id number] Author: MENDOZA GILLETTE Tech Service: Radiology Author Type: Dining Room Attendant Type: Allied Health Filed: 12/08/2024 17:01 Note Text: Radiology Service Progress Note PATIENT NAME: Tena Cannon DATE OF SERVICE: December 08, 2024 TIME: 5:01 PM PATIENT IDENTITY VERIFICATION COMPLETED USING TWO (2) IDENTIFIERS: Name and Date of confirmed by patient verbally. FALL SCREENING: Has the patient had 2 falls in the last year or 1 fall with injury or currently using an Ambulatory Assistive Device (Walker, Cane, Wheelchair, Crutches, etc.)? Emergency Room Patient: Screened in ED PATIENT GENDER DATA: Assigned female at . status: : No status: NO. PATIENT RELEVANT IMPLANT DATA REVIEWED: Not Applicable PATIENT PRESENTS WITH AN IMPLANTABLE OR ATTACHED EDGE DRUMMER: No RADIOLOGY DEPARTMENT: General X-ray: Exam(s) Completed: Chest X-Ray PERIPHERAL IV DATA: Not applicable SIGNED BY: David Boyd December 08, 2024 5:01 PM [facility] HEALTH HNO ID: [id number] Author: NEDA AKINS TECHNOLOGIST Service: Radiology Author Type: Technologist Type: Allied Health Filed: 12/08/2024 16:48 Note Text: Radiology Service Progress Note PATIENT NAME: Tena Cannon DATE OF SERVICE: December 08, 2024 TIME: 4:47 PM PATIENT IDENTITY VERIFICATION COMPLETED USING TWO (2) IDENTIFIERS: Name and Date of confirmed by patient verbally and Name and Date of confirmed by identification band. FALL SCREENING: Has the patient had 2 falls in the last year or 1 fall with injury or currently using an Ambulatory Assistive Device (Walker, Cane, Wheelchair, Crutches, etc.)? No PATIENT GENDER DATA: Assigned female at . status: : No status: NO. PATIENT RELEVANT IMPLANT DATA REVIEWED: Yes PATIENT PRESENTS WITH AN IMPLANTABLE OR ATTACHED EDGE DRUMMER: No RADIOLOGY DEPARTMENT: CT; Exam(s) Completed: Abdomen/Pelvis , Brain , and Spine PERIPHERAL IV DATA: Not applicable SIGNED BY: TECHNOLOGIST Mariela December 08, 2024 4:47 PM [facility] Bacteria Ur Culton Bacteria identified Cx Nom (U) ORGANISM ID: 1 10,000 -<50,000 CFU/ml Normal urogenital lisa [facility] Comment on above: Performed By: #### 6 30-4 #### [facility] CLIA [id number] [address] [place] [address] [place] CBC W Auto Differential pane l (Bld)on 12-08-2024 Basophils (Bld) [#/Vol] 0.05 10*3/uL Normal <0.11 [facility] Comment on above: Order Comment: Speci men Type: BLOOD SPECIMENOrdering Facility: [facility] Address: [address] [place] [address] Performed By: #### 5 7021-8 ####[facility]ORYCL[facility] [id number] [place] [address] [place] Basophils/100 WBC (Bld) 0.8 % Normal [facility] Comment on above: Order Comment: Speci men Type: BLOOD SPECIMENOrdering Facility: [facility] Address: [address] [place] [address] Performed By: #### 5 7021-8 ####[facility]ATORYCLIA [id number] [address] [place] Differential cell count method Nom (Bld) Auto Normal [facility] Comment on above: Order Comment: Speci men Type: BLOOD SPECIMENOrdering Facility: [facility] Address: [address] [place] [address] Performed By: #### 5 7021-8 ####[facility]ORATORYCLIA [id number] [place] [address] [place] Eosinophils (Bld) [#/Vol] 0.12 10*3/uL Normal <0.46 [facility] Comment on above: Order Comment: Speci men Type: BLOOD SPECIMENOrdering Facility: [facility] Address: [address] [place] [address] Performed By: #### 5 7021-8 ####[facility]ATORYCLIA [id number] [address] [place] Eosinophils/100 WBC (Bld) 1.9 % Normal [facility] Comment on above: Order Comment: Speci men Type: BLOOD SPECIMENOrdering Facility: [facility] Address: [address] [place] [address] Performed By: #### 5 7021-8 ####[facility]ORATORYCLIA [id number] [place] [address] [place] Erythrocyte distribution width (RBC) [Ratio] 12.6 % Normal 11.5-15.0 [facility] Comment on above: Order Comment: Speci men Type: BLOOD SPECIMENOrdering Facility: [facility] Address: [address] [place] [address] Performed By: #### 5 7021-8 ####[facility]ORATORYCLIA [id number] [place] [address] [place] Hematocrit (Bld) [Volume fraction] 39.9 % Normal 36.0-46.0 [facility] Comment on above: Order Comment: Speci men Type: BLOOD SPECIMENOrdering Facility: [facility] Address: [address] [place] [address] Performed By: #### 5 7021-8 ####[facility]ORATORYCLIA [id number] [place] [address] [place] Hemoglobin (Bld) [Mass/Vol] 13.6 g/dL Normal 11.5-15.5 [facility] Comment on above: Order Comment: Speci men Type: BLOOD SPECIMENOrdering Facility: [facility] Address: [address] [place] [address] Performed By: #### 5 7021-8 ####[facility]ORATORYCLIA [id number] [place] [address] [place] Immature granulocytes (Bld) [#/Vol] 10*3/uL Normal <0.10 [facility] Comment on above: Order Comment: Speci men Type: BLOOD SPECIMENOrdering Facility: [facility] Address: [address] [place] [address] Performed By: #### 5 7021-8 ####[facility] LABORATORYCLIA [id number] [place] [address] [place] Immature granulocytes/100 WBC (Bld) 0.3 % Normal [facility] Comment on above: Order Comment: Speci men Type: BLOOD SPECIMENOrdering Facility: [facility] Address: [address] [place] [address] Performed By: #### 5 7021-8 ####[facility] LABORATORYCLIA [id number] [place] [address] [place] Lymphocytes (Bld) [#/Vol] 1.21 10*3/uL Normal 1.00-4.00 [facility] Comment on above: Order Comment: Speci men Type: BLOOD SPECIMENOrdering Facility: [facility] Address: [address] [place] [address] Performed By: #### 5 7021-8 ####[facility] LABORATORYCLIA [id number] [address] STATES [facility] Lymphocytes/100 WBC (Bld) 18.7 % Normal [facility] Comment on above: Order Comment: Speci men Type: BLOOD SPECIMENOrdering Facility: [facility] Address: [address] [place] [address] Performed By: #### 5 7021-8 ####[facility] LABORATORYCLIA [id number] [address] [place] MCH (RBC) [Entitic mass] 31.6 pg Normal 26.0-34.0 [facility] Comment on above: Order Comment: Speci men Type: BLOOD SPECIMENOrdering Facility: [facility] Address: [address] [place] [address] Performed By: #### 5 7021-8 ####[facility] LABORATORYCLIA [id number] [address] MCHC (RBC) [Mass/Vol] 34.1 g/dL Normal 30.5-36.0 [facility] Comment on above: Order Comment: Speci men Type: BLOOD SPECIMENOrdering Facility: [facility] Address: [address] [place] [address] Performed By: #### 5 7021-8 ####[facility] LABORATORYCLIA [id number] [address] [place] MCV (RBC) [Entitic vol] 92.8 fL Normal 80.0-100.0 M [facility] Comment on above: Order Comment: Speci men Type: BLOOD SPECIMENOrdering Facility: [facility] Address: [address] [place] [address] Performed By: #### 5 7021-8 ####[facility] LABORATORYCLIA [id number] [place] [address] [place] Monocytes (Bld) [#/Vol] 0.74 10*3/uL Normal <0.87 [facility] Comment on above: Order Comment: Speci men Type: BLOOD SPECIMENOrdering Facility: [facility] Address: [address] [place] [address] Performed By: #### 5 7021-8 ####[facility] LABORATORYCLIA [id number] [address] [place] Monocytes/100 WBC (Bld) 11.4 % Normal [facility] Comment on above: Order Comment: Speci men Type: BLOOD SPECIMENOrdering Facility: [facility] Address: [address] [place] [address] Performed By: #### 5 7021-8 ####[facility] LABORATORYCLIA [id number] [address] [place] Neutrophils (Bld) [#/Vol] 4.34 10*3/uL Normal 1.45-7.50 [facility] Comment on above: Order Comment: Speci men Type: BLOOD SPECIMENOrdering Facility: [facility] Address: [address] [place] [address] Performed By: #### 5 7021-8 ####[facility] LABORATORYCLIA [id number] [address] Neutrophils/100 WBC (Bld) 66.9 % Normal [facility] Comment on above: Order Comment: Speci men Type: BLOOD SPECIMENOrdering Facility: [facility] Address: [address] [place] [address] Performed By: #### 5 7021-8 ####[facility] LABORATORYCLIA [id number] [place] [address] [place] Nucleated RBC (Bld) [#/Vol] 10*3/uL Normal <0.01 [facility] Comment on above: Order Comment: Speci men Type: BLOOD SPECIMENOrdering Facility: [facility] Address: [address] [place] [address] Performed By: #### 5 7021-8 ####[facility] LABORATORYCLIA [id number] [address] Nucleated RBC/100 WBC (Bld) [Ratio] 0.0 /100 WBC Normal [facility] Comment on above: Order Comment: Speci men Type: BLOOD SPECIMENOrdering Facility: [facility] Address: [address] [place] [address] Performed By: #### 5 7021-8 ####[facility] LABORATORYCLIA [id number] [address] [place] Platelet mean volume (Bld) [Entitic vol] 10.9 fL Normal 9.0-12.7 [facility] Comment on above: Order Comment: Speci men Type: BLOOD SPECIMENOrdering Facility: [facility] Address: [address] [place] [address] Performed By: #### 5 7021-8 ####[facility] LABORATORYCLIA [id number] [address] [place] Platelets (Bld) [#/Vol] 204 10*3/uL Normal 150-400 [facility] Comment on above: Order Comment: Speci men Type: BLOOD SPECIMENOrdering Facility: [facility] Address: [address] [place] [address] Performed By: #### 5 7021-8 ####[facility] LABORATORYCLIA [id number] [address] RBC (Bld) [#/Vol] 4.30 10*6/uL Normal 3.90-5.20 [facility] Comment on above: Order Comment: Speci men Type: BLOOD SPECIMENOrdering Facility: [facility] Address: [address] [place] [address] Performed By: #### 5 7021-8 ####[facility] LABORATORYCLIA [id number] [address] [place] WBC (Bld) [#/Vol] 6.48 10*3/uL Normal 3.70-11.00 [facility] Comment on above: Order Comment: Speci men Type: BLOOD SPECIMENOrdering Facility: [facility] Address: [address] [place] [address] Performed By: #### 5 7021-8 ####[facility] [id number] [place] [address] [facility] CNPPascale 12-08-2024 CNPN Telephone (FAMDNA) TENA CANNON ([id number]) 1940 F Date Time Provider Department 12/08/24 SAHRA GUY FAMLAURO During your visit today, we recorded the following information about you: Norma Long 12/08/2024 10:23 AM Signed Patient daughterJuan is calling Sahra Guy MD today to request a prior authorization for the lidocaine 5% per pharmacy [facility] Please call daughter with updates on this PA Patient has been identified by name and birthdate. Person calling: daughter: Juan Call patient daughter Juan [phone] (home) [phone] (cell) Was an appointment scheduled: No Closing statement: Prior Auth needed for the Lidocaine [facility] Adonay Marquez LPN 12/08/2024 1:33 PM Signed PA submitted. Response pending. Epworth Tete Boucher 12/09/2024 2:31 PM Signed Juan, daughter called and stated lidocaine patches are denied and the insurance has faxed an appeal form to our office. She is requesting this is completed. Please call [facility] [phone] at 8-5pm central time. Please follow up with the daughter. Sahra Guy MD 12/14/2024 9:08 AM Signed Is there an on formulary alternative? Please check MD Eladio Mitchell Cheralyn, LPN 12/14/2024 9:26 AM Signed Called Juan, she states pt has received the Lidocaine patches and was approved by insurance. 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 Juan states pt will be transitioning to [facility] for inpatient physical therapy. Anjanaalvin requested pt's 3pm appt for neurology 12/14/24 be canceled. Appt canceled. Allergies As of Date: 12/08/2024 Noted Allergy Reaction KEFLEX (CEPHALEXIN) 05/12/2005 6 - Diarrhea 8 - GI Upset Comments: extreme diarrhea VIOXX (ROFECOXIB) 05/12/2005 5 - Intolerance Comments: Makes capillaryblood vessels break NOVOCAIN (PROCAINE HCL) 01/13/2024 5 - Intolerance Comments: headaches OMEGA-3 FISH OIL (OMEGA-3 FATTY A*05/05/2007 5 - Intolerance Comments: bleeding in eye ADVIL (IBUPROFEN) 05/28/2005 5 - Intolerance Comments: Makes capillary blood vessels bread ASA (SALICYLATES) 05/28/2005 5 - Intolerance Comments: Makes capillary blood vessels break Date Reviewed: 12/08/2024 Reviewed by: Huong Sanz RN - Fully Assessed Reason for Visit: Insurance Authorization [[id number]] Prescriptions as of 12/14/2024 - propylene glycol (SYSTANE COMPLETE OPHTHALMIC) Use 1 drop in eyes two times a day. - cyclobenzaprine (FLEXERIL) 5 mg tablet Take 1 tablet by mouth two times a day as needed. - amLODIPine (NORVASC) 5 mg tablet Take 1 tablet by mouth two times a day. - oxyCODONE IR (ROXICODONE) 5 mg immediate release tablet Take 1 tablet by mouth every 8 hours as needed for up to 5 days. - lidocaine (LIDODERM) 5 % Apply 1 patch as directed once daily. REMOVE AFTER 12 HOURS. - metFORMIN (GLUCOPHAGE) 500 mg tablet Take 1 tablet by mouth daily with breakfast. - oxybutynin ER (DITROPAN XL) 10 mg 24 hr tablet Take 1 tablet by mouth once daily. - esomeprazole (NEXIUM) 40 mg capsule TAKE 1 CAPSULE DAILY BEFOREBREAKFAST. 1/2 HOUR BEFORE A MEAL - esomeprazole (NEXIUM) 40 mg capsule TAKE 1 CAPSULE DAILY BEFOREBREAKFAST. 1/2 HOUR BEFORE A MEAL - metroNIDAZOLE (METROGEL) 0.75 % Topical Gel APPLY 1 APPLICATION TO AFFECTED AREA ONCE DAILY TOFACE - brimonidine (ALPHAGAN P) 0.1 % drop - loratadine (CLARITIN ORAL) Take by mouth. - nystatin-triamcinolone (MYCOLOG) ointment Apply sparingly to perineum twice daily for irritation/infection. - atropine 1 % ophthalmic solution - sulfacetamide (BLEPH-10) 10 % ophthalmic solution Use 1 Drop in both eyes four times daily. INSIDE LOWER EYELID(S) 1-4 TIMES DAILY AND AT BEDTIME - miconazole (MONISTAT 7) 2 % vaginal cream Use 1 Applicator vaginally daily at bedtime. - calcium carbonate (CALCIUM 500 ORAL) Take by mouth every other day. - BIOTIN ORAL Take 1 capsule by mouth once daily. - vitamin B complex (B COMPLEX VITAMINS ORAL) Take 1 tablet by mouth once daily. - ergocalciferol, vitamin D2, (VITAMIN D2 ORAL) Take 1 tablet by mouth once daily. - ferrous sulfate 325 mg (65 mg iron) tablet Take 325 mg by mouth every other day. - therapeutic multivitamin w/ iron (THERAGRAN-M) 9 mg iron-400 mcg tablet Take 1 tablet by mouth once daily. - prednisoLONE acetate (PRED FORTE, ECONOPRED PLUS) 1 % ophthalmic suspension Use 1 Drop in the left eye twice daily as needed. - timolol maleate (TIMOPTIC) 0.5 % ophthalmic solution Use 1 Drop in the left eye every morning. - polyvinyl alcohol (LIQUID TEARS OPHTHALMIC) Use in eyes. - rutin/hesp/bioflav/C/h (BIOFLEX ORAL) Take 1 capsule by mouth twice daily. - CPAP BipaP @ 14/9 cm of water with humidific (more content not included)... Normal [facility] CT ABD/PEL WO IVCONon 2024 CT ABD/PEL WO IVCON * * *Final Report* * * DATE OF EXAM: Dec 08 2024 4:57PM [facility] [place] 0531 - CT ABD/PEL WO IVCON / PROCEDURE REASON: Abdominal abscess/infection suspected * * * * Physician Interpretation * * * * EXAMINATION: CT ABDOMEN AND PELVIS WITHOUT IV CONTRAST. CT of the lumbar spine without IV contrast. CLINICAL HISTORY: Abdominal abscess/infection suspected. Recent fall. TECHNIQUE: Non-IV contrast imaging of the abdomen and pelvis was performed using standard technique, scanning from just above the dome of the diaphragm to the symphysis pubis. Unenhanced imaging is limited for the evaluation of some intra-abdominal and pelvic pathology. CT of the lumbar spine was performed without IV contrast and multiplanar reconstructions were generated. Contrast: IV: None CT Radiation dose: Integrated Dose-length product (DLP) for this visit = 623 mGy*cm. CT Dose Reduction Employed: Automated exposure control(AEC) and iterative recon COMPARISON: 03/11/2014. RESULT: Abdomen / Pelvis: Liver: Unremarkable. Biliary: S/p cholecystectomy. Spleen: No splenomegaly. Pancreas: Unremarkable. Adrenals: Left adrenal adenoma, similar to prior. Kidneys: Simple fluid attenuation lesions that are most likely benign cysts. No calculi or hydronephrosis. GI Tract: No bowel dilation. Appendix not visualized. No diverticulosis. Lymph Nodes: No lymphadenopathy. Mesentery/peritoneum: No ascites. Retroperitoneum: No mass. Vasculature: Arterial atherosclerotic disease without aneurysm. Pelvis: No mass or ascites. Bones/Soft Tissues: No acute abnormality. Lower thorax: Calcified left hilar lymph nodes. Moderate hiatal hernia. Localizer images: No additional findings. Lumbar spine: There is reversal of the normal lordosis. Kyphoplasty/vertebropl asty changes are present at the L3 vertebral body. There is loss of intervertebral disc height and reactive endplate changes throughout the lumbar spine, most conspicuous at the L4-L5 and L5-S1 levels. No critical spinal canal stenosis. Moderate to severe bilateral neural foraminal narrowing is present at the L4-L5 and L5-S1 levels. IMPRESSION: No acute finding in the abdomen or pelvis. No traumatic subluxation or fracture in the lumbar spine. Advanced degenerative changes. Duct Layer Helper: [facility] HOSPITALChristian Transcribe Date/Time: Dec 08 2024 5:59P Dictated by : SIERRA SILVER MD This examination was interpreted and the report reviewed and electronically signed by: SIERRA SILVER MD on Dec 08 2024 6:18PM EST [id number] [facility] CT BRAIN WO IVCONon 12-09-19 CT BRAIN WO IVCON * * *Final Report* * * DATE OF EXAM: Dec 08 2024 4:56PM [facility] [place] 0504 - CT BRAIN WO IVCON / PROCEDURE REASON: Head trauma, moderate-severe * * * * Physician Interpretation * * * * EXAMINATION: CT BRAIN WO IVCON, CT CERVICAL SPINE WO IVCON CLINICAL HISTORY: Head trauma, moderate-severe (accession [id number]), Spine fracture, cervical, traumatic (accession [id number]) TECHNIQUE: Serial axial images without IV contrast were obtained from the vertex to the cervicothoracic junction. MQ: [id number] CT Radiation dose: Integrated Dose-Length Product (DLP) for this visit = 1193 mGy*cm CT Dose Reduction Employed: Automated exposure control(AEC) and iterative recon COMPARISON: Cervical spine CT 03/11/2014. RESULT: HEAD: Post-operative change: None. Acute change: No evidence of an acute infarct or other acute parenchymal process. Hemorrhage: No evidence of acute intracranial hemorrhage. ECASS hemorrhagic transformation score: Not Applicable Mass Lesion / Mass Effect: There is no evidence of an intracranial mass or extraaxial fluid collection. No significant mass effect. Chronic change: Patchy foci of low attenuation coefficient are present within the supratentorial white matter which is a nonspecific finding but likely represents moderate microvascular ischemia. Parenchyma: There is mild generalized volume loss. The brain parenchyma is otherwise within normal limits for age. Ventricles: Ventricular enlargement concordant with the degree of parenchymal volume loss. Other: Bilateral lens replacements. Mild scattered paranasal sinus mucosal thickening without air-fluid levels. Visualized mastoid air cells are clear. Unremarkable extracranial soft tissues. Intact calvarium and skull base. Localizer images: Unremarkable. CERVICAL SPINE: Counting reference: Craniocervical junction. Anatomic Variants: None. Localizer images: Unremarkable. Alignment: 4 mm anterolisthesis at C6/C7. 3 mm anterolisthesis at C7/T1. Craniocervical junction: Craniocervical junction is normal. Osseous structures/fracture: Near complete vertebral body ankylosis at C6/C7. Ankylosis of the bilateral C6/C7 and C7/T1 facet joints, complete on the right and near complete on the left . No evidence of a lytic or blastic process in the visualized spine. No evidence of acute or chronic fracture cervical spine. Cervical soft tissues: The paraspinal soft tissues are within normal limits. Degenerative changes: Moderate to severe degenerative changes of the atlantodental interval with pannus which partially effaces the ventral subarachnoid space. Degenerative changes of the bilateral atlantoaxial joints, markedly severe on the left and moderate to severe on the right. Multilevel degenerative disc disease as evidenced by disc space narrowing, endplate sclerosis and osteophytes, moderate to severe at C3/C4 and C4/C5, and severe at C6/C7. Bilateral facet arthropathy, severe at multiple levels. Canal and foramina: Multilevel spinal canal stenosis due to disc osteophyte complexes and ligamentum flavum hypertrophy, moderate at C3/C4, C4/C5 and C6/C7. Multilevel neuroforaminal stenosis of varying degrees due to uncovertebral and facet hypertrophy notable for severe right and mild to moderate left C3/C4 neuroforaminal stenosis and moderate to severe bilateral C4/C5 neuroforaminal stenosis. Other: Degenerative changes of the right shoulder, incompletely imaged. Small calcified right upper lobe pleural plaque. Small calcified left upper lobe granuloma. IMPRESSION: Head CT: Moderate white matter microvascular ischemic changes. No acute intracranial hemorrhage or calvarial fracture. Cervical spine CT: No acute cervical spine fracture or traumatic malalignment. Degenerative changes as described. Anatomic Variant: None. Assume 7 cervical vertebrae with counting from the craniocervical junction. : Duct Layer Helper: [facility]OSPITALChristian Transcribe Date/Time: Dec 08 2024 5:11P Dictated by : FAUSTINO KINSEY MD This examination was interpreted and the report reviewed and electronically signed by: FAUSTINO KINSEY MD on Dec 08 2024 5:24PM EST [id number] [facility] CT CERVICAL SPINE WO IVCONon 12-08-2024 CT CERVICAL SPINE WO IVCON * * *Final Report* * * DATE OF EXAM: Dec 08 2024 4:56PM [facility] [place] 0505 - CT CERVICAL SPINE WO IVCON / PROCEDURE REASON: Spine fracture, cervical, traumatic * * * * Physician Interpretation * * * * EXAMINATION: CT BRAIN WO IVCON, CT CERVICAL SPINE WO IVCON CLINICAL HISTORY: Head trauma, moderate-severe (accession [id number]), Spine fracture, cervical, traumatic (accession [id number]) TECHNIQUE: Serial axial images without IV contrast were obtained from the vertex to the cervicothoracic junction. MQ: [id number]_3 CT Radiation dose: Integrated Dose-Length Product (DLP) for this visit = 1193 mGy*cm CT Dose Reduction Employed: Automated exposure control(AEC) and iterative recon COMPARISON: Cervical spine CT 03/11/2014. RESULT: HEAD: Post-operative change: None. Acute change: No evidence of an acute infarct or other acute parenchymal process. Hemorrhage: No evidence of acute intracranial hemorrhage. ECASS hemorrhagic transformation score: Not Applicable Mass Lesion / Mass Effect: There is no evidence of an intracranial mass or extraaxial fluid collection. No significant mass effect. Chronic change: Patchy foci of low attenuation coefficient are present within the supratentorial white matter which is a nonspecific finding but likely represents moderate microvascular ischemia. Parenchyma: There is mild generalized volume loss. The brain parenchyma is otherwise within normal limits for age. Ventricles: Ventricular enlargement concordant with the degree of parenchymal volume loss. Other: Bilateral lens replacements. Mild scattered paranasal sinus mucosal thickening without air-fluid levels. Visualized mastoid air cells are clear. Unremarkable extracranial soft tissues. Intact calvarium and skull base. Localizer images: Unremarkable. CERVICAL SPINE: Counting reference: Craniocervical junction. Anatomic Variants: None. Localizer images: Unremarkable. Alignment: 4 mm anterolisthesis at C6/C7. 3 mm anterolisthesis at C7/T1. Craniocervical junction: Craniocervical junction is normal. Osseous structures/fracture: Near complete vertebral body ankylosis at C6/C7. Ankylosis of the bilateral C6/C7 and C7/T1 facet joints, complete on the right and near complete on the left . No evidence of a lytic or blastic process in the visualized spine. No evidence of acute or chronic fracture cervical spine. Cervical soft tissues: The paraspinal soft tissues are within normal limits. Degenerative changes: Moderate to severe degenerative changes of the atlantodental interval with pannus which partially effaces the ventral subarachnoid space. Degenerative changes of the bilateral atlantoaxial joints, markedly severe on the left and moderate to severe on the right. Multilevel degenerative disc disease as evidenced by disc space narrowing, endplate sclerosis and osteophytes, moderate to severe at C3/C4 and C4/C5, and severe at C6/C7. Bilateral facet arthropathy, severe at multiple levels. Canal and foramina: Multilevel spinal canal stenosis due to disc osteophyte complexes and ligamentum flavum hypertrophy, moderate at C3/C4, C4/C5 and C6/C7. Multilevel neuroforaminal stenosis of varying degrees due to uncovertebral and facet hypertrophy notable for severe right and mild to moderate left C3/C4 neuroforaminal stenosis and moderate to severe bilateral C4/C5 neuroforaminal stenosis. Other: Degenerative changes of the right shoulder, incompletely imaged. Small calcified right upper lobe pleural plaque. Small calcified left upper lobe granuloma. IMPRESSION: Head CT: Moderate white matter microvascular ischemic changes. No acute intracranial hemorrhage or calvarial fracture. Cervical spine CT: No acute cervical spine fracture or traumatic malalignment. Degenerative changes as described. Anatomic Variant: None. Assume 7 cervical vertebrae with counting from the craniocervical junction. : Duct Layer Helper: RYAN Transcribe Date/Time: Dec 08 2024 5:11P Dictated by : FAUSTINO KINSEY MD This examination was interpreted and the report reviewed and electronically signed by: FAUSTINO KINSEY MD on Dec 08 2024 5:24PM EST [id number] [facility] CT LUMBAR SPINE W RECON DATA -NBon 12-08-2024 CT LUMBAR SPINE W RECON DATA -NB * * *Final Report* * * DATE OF EXAM: Dec 08 2024 4:57PM [facility] [place] 0481 - CT LUMBAR SPINE W RECON DATA -NB / PROCEDURE REASON: Spine fracture, lumbar, traumatic * * * * Physician Interpretation * * * * EXAMINATION: CT ABDOMEN AND PELVIS WITHOUT IV CONTRAST. CT of the lumbar spine without IV contrast. CLINICAL HISTORY: Abdominal abscess/infection suspected. Recent fall. TECHNIQUE: Non-IV contrast imaging of the abdomen and pelvis was performed using standard technique, scanning from just above the dome of the diaphragm to the symphysis pubis. Unenhanced imaging is limited for the evaluation of some intra-abdominal and pelvic pathology. CT of the lumbar spine was performed without IV contrast and multiplanar reconstructions were generated. Contrast: IV: None CT Radiation dose: Integrated Dose-length product (DLP) for this visit = 623 mGy*cm. CT Dose Reduction Employed: Automated exposure control(AEC) and iterative recon COMPARISON: 03/11/2014. RESULT: Abdomen / Pelvis: Liver: Unremarkable. Biliary: S/p cholecystectomy. Spleen: No splenomegaly. Pancreas: Unremarkable. Adrenals: Left adrenal adenoma, similar to prior. Kidneys: Simple fluid attenuation lesions that are most likely benign cysts. No calculi or hydronephrosis. GI Tract: No bowel dilation. Appendix not visualized. No diverticulosis. Lymph Nodes: No lymphadenopathy. Mesentery/peritoneum: No ascites. Retroperitoneum: No mass. Vasculature: Arterial atherosclerotic disease without aneurysm. Pelvis: No mass or ascites. Bones/Soft Tissues: No acute abnormality. Lower thorax: Calcified left hilar lymph nodes. Moderate hiatal hernia. Localizer images: No additional findings. Lumbar spine: There is reversal of the normal lordosis. Kyphoplasty/vertebropl asty changes are present at the L3 vertebral body. There is loss of intervertebral disc height and reactive endplate changes throughout the lumbar spine, most conspicuous at the L4-L5 and L5-S1 levels. No critical spinal canal stenosis. Moderate to severe bilateral neural foraminal narrowing is present at the L4-L5 and L5-S1 levels. IMPRESSION: No acute finding in the abdomen or pelvis. No traumatic subluxation or fracture in the lumbar spine. Advanced degenerative changes. Duct Layer Helper: [facility] Transcribe Date/Time: Dec 08 2024 5:59P Dictated by : SIERRA SILVER MD This examination was interpreted and the report reviewed and electronically signed by: SIERRA SILVER MD on Dec 08 2024 6:18PM EST [id number] Normal [facility] Comprehensive metabolic 2000 panelon 12-08-2024 Albumin [Mass/Vol] 4.1 g/dL Normal 3.9-4.9 [facility] Comment on above: Order Comment: Speci men Type: BLOOD SPECIMENOrdering Facility: [facility] Address: [address] [place] [address] Performed By: #### 2 4323-8, 3 ####[facility] LABORATORYCLIA [id number] [place] [address] [place] [facility] ALP [Catalytic activity/Vol] 68 U/L Normal 34-123 [facility] Comment on above: Order Comment: Speci men Type: BLOOD SPECIMENOrdering Facility: [facility] Address: [address] [place] [address] Performed By: #### 2 4323-8, 3 ####[facility] LABORATORYCLIA [id number] [address] [place] ALT [Catalytic activity/Vol] 15 U/L Normal 7-38 [facility] Comment on above: Order Comment: Speci men Type: BLOOD SPECIMENOrdering Facility: [facility] Address: [address] [place] [address] Performed By: #### 2 4323-8, 3040-3 ####[facility] LABORATORYCLIA [id number] [place] [address] [place] Anion gap [Moles/Vol] 12 mmol/L Normal 8-15 [facility] Comment on above: Order Comment: Speci men Type: BLOOD SPECIMENOrdering Facility: [facility] Address: [address] [place] [address] Performed By: #### 2 4323-8, 3040-3 ####[facility] LABORATORYCLIA [id number] [place] [address] [place] AST [Catalytic activity/Vol] 18 U/L Normal 13-35 [facility] Comment on above: Order Comment: Speci men Type: BLOOD SPECIMENOrdering Facility: [facility] Address: [address] [place] [address] Performed By: #### 2 4323-8, 3039-3 ####[facility] LABORATORYCLIA [id number] [place] [address] [place] Bilirubin [Mass/Vol] 0.4 mg/dL Normal 0.2-1.3 [facility] Comment on above: Order Comment: Speci men Type: BLOOD SPECIMENOrdering Facility: [facility] Address: [address] [address] Performed By: #### 2 4323-8, 0-3 ####[facility] LABORATORYCLIA [id number] [place] [address] [place] Calcium [Mass/Vol] 10.1 mg/dL Normal 8.5-10.2 [facility] Comment on above: Order Comment: Speci men Type: BLOOD SPECIMENOrdering Facility: [facility] Address: [address] [place] [id number] Performed By: #### 2 4323-8, 3040-3 ####[facility] LABORATORYCLIA [id number] [place] [address] [place] Chloride [Moles/Vol] 99 mmol/L Normal 98-107 [facility] Comment on above: Order Comment: Speci men Type: BLOOD SPECIMENOrdering Facility: [facility] Address: [address] [place] [address] Performed By: #### 2 4323-8, 3040-3 ####KENDR[facility] LABORATORYCLIA [id number] [place] [address] [place] CO2 [Moles/Vol] 27 mmol/L Normal 22-30 [facility] Comment on above: Order Comment: Helena bronson Type: BLOOD SPECIMENOrdering Facility: [facility] Address: [address] [place] [address] Performed By: #### 2 4323-8, 3039-3 ####[facility] LABORATORYCLIA [id number] [address] [place] Creatinine [Mass/Vol] 0.39 mg/dL Low 0.58-0.96 [facility] Comment on above: Order Comment: Heelna bronson Type: BLOOD SPECIMENOrdering Facility: [facility] Address: [address] [place] [address] Performed By: #### 2 4323-8, 3039-3 ####[facility] LABORATORYCLIA [id number] [address] Creatinine and Glomerular filtration rate.predicted panel (S/P/Bld) 97 mL/min/1.73m??? Normal >=60 [facility] Comment on above: Order Comment: Helena bronson Type: BLOOD SPECIMENOrdering Facility: [facility] Address: [address] [place] [address] Result Comment: Sara mated Glomerular Filtration Rate (eGFR) is calculated using the 2020 CKD-EPI creatinine equation. This equation utilizes serum creatinine, sex, and age as parameters. The creatinine assay has traceable calibration to isotope dilution-mass spectrometry. Refer to KDIGO guidelines for clinical interpretation. In patients with unstable renal function, e.g. those with acute kidney injury, the eGFR may not accurately reflect actual GFR. Performed By: #### 2 4323-8, 0-3 ####[facility] LABORATORYCLIA [id number] [address] Glucose [Mass/Vol] 84 mg/dL Normal 74-99 [facility] Comment on above: Order Comment: Helena bronson Type: BLOOD SPECIMENOrdering Facility: [facility] Address: [address] [place] [address] Result Comment: The [place] [employer] (ADA) provides guidance for cutoff values for fasting glucose and random glucose. The ADA defines fasting as no caloric intake for at least 8 hours. Fasting plasma glucose results between 100 to 125 mg/dL indicate increased risk for diabetes (prediabetes). Fasting plasma glucose results greater than or equal to 126 mg/dL meet the criteria for diagnosis of diabetes. In the absence of unequivocal hyperglycemia, results should be confirmed by repeat testing. In a patient with classic symptoms of hyperglycemia or hyperglycemic crisis, random plasma glucose results greater than or equal to 200 mg/dL meet the criteria for diagnosis of diabetes. Reference: Standards of Medical Care in Diabetes 2016, [place] [employer] Association. Diabetes Care. 2016.39(Suppl 1). Performed By: #### 2 4323-8, 0-3 ####KENDR[facility] LABORATORYCLIA [id number] [place] [address] [place] Potassium [Moles/Vol] 3.8 mmol/L Normal 3.7-5.1 [facility] Comment on above: Order Comment: Helena bronson Type: BLOOD SPECIMENOrdering Facility: [facility] Address: [address] [place] [address] Performed By: #### 2 4323-8, 3039-3 ####[facility] LABORATORYCLIA [id number] [place] [address] [place] Protein [Mass/Vol] 7.3 g/dL Normal 6.3-8.0 [facility] Comment on above: Order Comment: Helena men Type: BLOOD SPECIMENOrdering Facility: [facility] Address: [address] [place] [address] Performed By: #### 2 4323-8, 0-3 ####[facility]DR[facility] LABORATORYCLIA [id number] [place] [address] [place] Sodium [Moles/Vol] 138 mmol/L Normal 136-144 [facility] Comment on above: Order Comment: Helena men Type: BLOOD SPECIMENOrdering Facility: [facility] Address: [address] [place] [id number] Performed By: #### 2 4323-8, 0-3 ####KENDR[facility] LABORATORYCLIA [id number] [place] [address] [facility] Urea nitrogen [Mass/Vol] 18 mg/dL Normal 7-21 [facility] Comment on above: Order Comment: Speci men Type: BLOOD SPECIMENOrdering Facility: [facility] Address: [address] [place] [id number] Performed By: #### 2 4323-8, 3040-3 ####[facility] LABORATORYCLIA [id number] [place] [id number] [facility] ED NOTEon 12-08-2024 ED NOTE HNO ID: [id number] Author: KRISTINE UMANZOR RN Service: Nursing Author Type: Registered Nurse Type: ED Notes Filed: 12/08/2024 20:45 Note Text: Pt is wearing own nightgown [facility] ED NOTE HNO ID: [id number] Author: RADU DSILA RN Service: ? Author Type: Registered Nurse Type: ED Notes Filed: 12/08/2024 20:02 Note Text: [facility] ED NOTE HNO ID: [id number] Author: RADU DISLA RN Service: ? Author Type: Registered Nurse Type: ED Notes Filed: 12/08/2024 20:02 Note Text: Pt back from ct co way increased back pain after laying flat on ct table. Sts 12/10 and now bp up to 225/90s [facility] ED NOTE HNO ID: [id number] Author: RADU DISLA RN Service: ? Author Type: Registered Nurse Type: ED Notes Filed: 12/08/2024 17:05 Note Text: Normal [facility] ED NOTE HNO ID: [id number] Author: HARINDER HEADLEY RN Service: ? Author Type: Registered Nurse Type: ED Notes Filed: 12/08/2024 15:58 Note Text: Bed: ED-10 Expected date: 12/08/24 Expected time: 3:35 PM Means of arrival: [facility] Comments: [facility] ED PROV NOTEon 12-08-2024 ED PROV NOTE HNO ID: [id number] Author: LOS PEREZ MD Service: Emergency Medicine Author Type: Physician Type: ED Provider Notes Filed: 12/08/2024 19:35 Note Text: ED Provider Note Patient Name: Tena Cannon : 1940 SERVICE DATE: 12/08/24 History Patient presents with: Fall: Sent in from pcp to see if kidney infx or uti.had fall sun. Been weak, tired, nausea and back pain since fall Thursday from scooter. Ms. 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 Guy who was concerned because she has not been eating as much since and was worried she might have a kidney stone or infection or injury. She has pain in her right flank area, no other pain. She did not hit her head. No neck pain. No upper back pain. She does have some low back pain and right flank pain. No dysuria or urinary frequency or hematuria or nausea or vomiting, though she does have diminished appetite and she has been urinating less frequently because she has been eating and drinking less. She arrives with her daughters from her assisted living setting. 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 Leukopenia Unspecified sleep apnea cpap PAST SURGICAL HISTORY Procedure Laterality Date APPENDECTOMY tubal ligation BLEPHAROPLASTY UPPER EYELID W/EXCESSIVE SKIN 2022 CARPAL TUNNEL RIGHT WRIST 07/2003 COLONOSCOPY 03/30/2013 normal exam EGD 03/30/2013 hiatal hernia, Savary-Marshall Grade III reflux esophagitis, gastric polyps EGD 09/07/2018 SSBE noted on exam, not confirmed on biopsy, gastritis, neg H Pylori, fundic gland polyp IR KYPHOPLASTY LUMBAR 2006 L-3 LAPAROSCOPY SURG CHOLECYSTECTOMY 06/1999 Cholecystectomy, lap PAST SURGICAL HISTORY OF 2007 CMCJleft wrist PAST SURGICAL HISTORY OF child tendon transplants right ankle and both knees PAST SURGICAL HISTORY OF teens left great toe X 2 PAST SURGICAL HISTORY OF 1986 left rotator cuff repair and bone spur PAST SURGICAL HISTORY OF bone spur right shoulder RMVL [facility] CORNEO-SCLL SCTJ Cataract removal left with lens implant FAMILY HISTORY Problem Relation Age of Onset Heart Mother Hypertension Mother Headache Mother Diabetes Father Diabetes Paternal Grandmother Stroke Brother Stroke Paternal Grandfather Heart Other Heart Paternal Uncle Heart Maternal Uncle Hypertension Sister Hypertension Brother Diabetes Son Seizures Other niece other (dementia) Maternal Aunt other (brain hemorrhage) Other cousin Social History Tobacco Use Smoking status: Never Passive exposure: Yes Smokeless tobacco: Never Tobacco comments: second hand smoke exposure. Vaping Use Vaping status: Never Used Substance and Sexual Activity Alcohol use: Yes Comment: Rare Drug use: Never Sexual activity: Not Currently Partners: Male control/protection: Surgical ALLERGIES Allergen Reactions Keflex [Cephalexin] Diarrhea, GI Upset extreme diarrhea Vioxx [Rofecoxib] Intolerance Makes capillaryblood vessels break Novocain [Procaine * Intolerance headaches Sumner-3 Fish Oil [O* Intolerance bleeding in eye Advil [Ibuprofen] Intolerance Makes capillary blood vessels bread Asa [Salicylates] Intolerance Makes capillary blood vessels break Review of Systems Constitutional: Positive for appetite change. Negative for chills and fever. HENT: Negative for ear pain, rhinorrhea and sore throat. Respiratory: Negative for cough and shortness of breath. Cardiovascular: Negative for chest pain and leg swelling. Gastrointestinal: Negative for abdominal pain, diarrhea, nausea and vomiting. Genitourinary: Positive for flank pain. Negative for dysuria, frequency and hematuria. Musculoskeletal: Positive for back pain. Skin: Negative for rash. Neurological: Negative for speech difficulty, weakness, light-headedness, numbness and headaches. Psychiatric/Behavioral : Negative for hallucinations. Physical Exam Vitals [12/08/24 1559] BP Pulse Temp Temp src Resp SpO2 Weight Height 142/98 65 36.6 ?C (97.9 ?F) Oral 16 99 % 75 kg (165 lb 5.5 oz) 1.422 m (4' 8) Physical Exam Vitals and nursing note reviewed. Constitutional: General: She is not in acute distress. Appearance: She is well-developed. HENT: Head: Normocephalic and atraumatic. Eyes: Pupils: Pupils are equal, round, and reactive to l (more content not included)... Normal [facility] HISTORY PHYSICALon HISTORY PHYSICAL HNO ID: [id number] Author: SUKI GALVAN MD Service: Hospital Medicine Author Type: Physician Type: H&P Filed: 12/08/2024 21:49 Note Text: DEPARTMENT OF HOSPITAL MEDICINE HISTORY AND PHYSICAL EXAM SERVICE DATE: 12/08/2024 SERVICE TIME: 9:48 PM Primary Care Physician: Sahra Guy MD NIGHT AND WEEKEND COVERAGE: [facility] COVERAGE: Days: [phone], please page attending physician. Nights: [phone], please page [facility] Night coverage pager [phone]. Subjective CHIEF COMPLAINT: fall HPI: 84-year-old female with a past medical history of hypertension, iron deficiency anemia, and obstructive sleep apnea on CPAP, presented from her assisted living facility after being referred by her PCP for evaluation of a fall and generalized weakness. The patient reports that on 12/25, she fell forward from her wheelchair and landed on her buttocks. Since the fall, she has been experiencing persistent back pain. Patietn states that she started noticing worsening weakness and increased frequency of falls for the past few months.She endorses dysphagia over the past two months, particularly with solid foods such as bread. Her medical history is notable for childhood polio and post-polio syndrome diagnosed at age 48, which led to loss of ambulation and wheelchair dependence. She has not followed with a neurologist in several years. She also complains of chronic sciatica and has been sleeping in a recliner for several months. She has a known intolerance to NSAIDs due to concerns for ocular bleeding and reports minimal medication use aside from occasional Tylenol. She is able to take tramadol if needed. The patient denies head trauma, fever, chills, chest pain, dyspnea, urinary symptoms, abdominal pain, nausea, or vomiting. Her PCP noted poor oral intake and right flank pain, prompting the referral. Vitals on arrival BP 142/98, HR 65/min, temp 97, RR 16/min, SpO2 99% on room air Patient is AO x 3 no focal neurological deficit Labs showed unremarkable, COVID/flu/RSV negative urinalysis negative for UTI CT L-spine and abdominal pelvis show no acute findings or no traumatic subluxation or fracture Chest x-ray showed left lower lobe opacity may be related to atelectasis In the ED, belem received dilaudid 0.25mg stat, labetalol 100mg oral stat 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 Leukopenia Unspecified sleep apnea cpap PAST SURGICAL HISTORY Procedure Laterality Date APPENDECTOMY tubal ligation BLEPHAROPLASTY UPPER EYELID W/EXCESSIVE SKIN 2022 CARPAL TUNNEL RIGHT WRIST 07/2003 COLONOSCOPY 03/30/2013 normal exam EGD 03/30/2013 hiatal hernia, Oj-Marshall Grade III reflux esophagitis, gastric polyps EGD 09/07/2018 SSBE noted on exam, not confirmed on biopsy, gastritis, neg H Pylori, fundic gland polyp IR KYPHOPLASTY LUMBAR 2006 L-3 LAPAROSCOPY SURG CHOLECYSTECTOMY 06/1999 Cholecystectomy, lap PAST SURGICAL HISTORY OF 2007 CMCJleft wrist PAST SURGICAL HISTORY OF child tendon transplants right ankle and both knees PAST SURGICAL HISTORY OF teens left great toe X 2 PAST SURGICAL HISTORY OF 1986 left rotator cuff repair and bone spur PAST SURGICAL HISTORY OF bone spur right shoulder RMVL [facility] CORNEO-SCLL SCTJ Cataract removal left with lens implant FAMILY HISTORY Problem Relation Age of Onset Heart Mother Hypertension Mother Headache Mother Diabetes Father Diabetes Paternal Grandmother Stroke Brother Stroke Paternal Grandfather Heart Other Heart Paternal Uncle Heart Maternal Uncle Hypertension Sister Hypertension Brother Diabetes Son Seizures Other niece other (dementia) Maternal Aunt other (brain hemorrhage) Other cousin Social History Tobacco Use Smoking status: Never Passive exposure: Yes Smokeless tobacco: Never Tobacco comments: second hand smoke exposure. Vaping Use Vaping status: Never Used Substance Use Topics Alcohol use: Yes Comment: Rare Drug use: Never Medications: Current Facility-Administered Medications Medication Dose Route Frequency [START ON 12/09/2024] lidocaine patch - REMOVE OTHER ONCE And [START ON 12/09/2024] lidocaine - VERIFY PATCH OTHER ONCE prednisoLONE acetate 1 % 1 drop (PRED FORTE) 1 drop LEFT EYE BID PRN sulfacetamide 10 % 1 drop (BLEPH-10) 1 drop BOTH EYES QID timolol maleate 0.5 % 1 drop (TIMOPTIC) 1 drop LEFT EYE DAILY pantoprazole DR 40 mg tab(s) (PROTONIX) 40 mg ORAL DAILY [START ON 12/09/2024] lidocaine 4 % 1 patch (SALONPAS) 1 patch TRANSDERMAL DAILY ferrous sulfate 325 mg tab(s) 325 mg ORAL DAILY cyclopentolate 1 % 1 drop (CYCLOGYL) 1 drop LEFT EYE BID NaCl 0.9% iv flush bag 20 mL INTRAVENOUS PRN (more content not included)... Normal [facility] Lipase SerPl-cCncon 12-09-19 25 Lipase [Catalytic activity/Vol] 20 U/L Normal 16-61 [facility] Comment on above: Order Comment: Speci men Type: BLOOD SPECIMENOrdering Facility: [facility] Address: [address] [place] [address] Performed By: #### 2 4323-8, 3040-3 ####KENDRICK LABORATORYCLIA [id number] [facility] PT panel Coag (PPP)on 2024 INR Coag (PPP) [Relative time] 1.1 {INR} Normal 0.9-1.3 [facility] Comment on above: Order Comment: Speci men Type: BLOOD SPECIMENOrdering Facility: [facility] Address: [address] [place] [address] Result Comment: Yvonne min K Antagonist (VKA) Therapeutic Range: INR 2 to 3 (Target INR of 2.5) Note: For patients treated with VKA drugs, such as warfarin, the [employer] 2012 Guideline recommends a therapeutic INR range of 2 to 3 (target INR of 2.5). This recommendation includes high-risk patients with antiphospholipid syndrome with previous arterial or venous thromboembolism, current-generation mechanical or bioprosthetic aortic heart valve replacement. Note: Patients with mechanical aortic valve replacement and additional risk factors for thromboembolic events (atrial fibrillation, previous thromboembolism, LV dysfunction, hypercoagulable conditions) or an older generation mechanical AVR (i.e., ball in-Cage) or any mechanical MVR should have a INR therapeutic range of 2.5 to 3.5 (target INR of 3). Nishant GH, et al. Chest 2012, 141:7S-47S Juan Jose COSBY et al. [facility] 2017, 70: 252-289 Performed By: #### 1 4979-9, 79676-2 ####KENDRICK LABORATORYCLIA [id number] [address] PT Coag (PPP) [Time] 11.4 s Normal 9.7-13.0 [facility] Comment on above: Order Comment: Speci men Type: BLOOD SPECIMENOrdering Facility: [facility] Address: [address] [place] [address] Performed By: #### 1 4979-9, 62917-9 ####KENDRICK LABORATORYCLIA [id number] [address] URINALYSIS, REFLEX MICROSCOP ICon 12-08-2024 Bilirubin Ql (U) Negative Normal Negative [facility] Comment on above: Order Comment: Speci men Type: URINE SPECIMENOrdering Facility: [facility] Address: [address] [place] [address] Performed By: #### L [id number] ####KENDRICK LABORATORYCLIA [id number] [address] Clarity (Unsp spec) Clear Normal Clear [facility] Comment on above: Order Comment: Speci men Type: URINE SPECIMENOrdering Facility: [facility] Address: [address] [place] [address] Performed By: #### L [id number] ####KENDRICK LABORATORYCLIA [id number] [address] Color (U) Yellow Normal Yellow [facility] Comment on above: Order Comment: Speci men Type: URINE SPECIMENOrdering Facility: [facility] Address: [address] [place] [address] Performed By: #### L [id number] ####KENDRICK LABORATORYCLIA [id number] [address] Glucose Test strip (U) [Mass/Vol] Negative Normal Negative [facility] Comment on above: Order Comment: Speci men Type: URINE SPECIMENOrdering Facility: [facility] Address: [address] [place] [address] Performed By: #### L [id number] ####KENDRICK LABORATORYCLIA [id number] [address] Hemoglobin Ql (U) Negative Normal Negative [facility] Comment on above: Order Comment: Speci men Type: URINE SPECIMENOrdering Facility: [facility] Address: [address] [place] [address] Performed By: #### L [id number] ####KENDRICK LABORATORYCLIA [id number] [address] [place] Ketones Ql (U) 2+ Abnormal Negative [facility] Comment on above: Order Comment: Speci men Type: URINE SPECIMENOrdering Facility: [facility] Address: [address] [place] [address] Performed By: #### L [id number] ####KENDRICK LABORATORYCLIA [id number] [address] [place] Leukocyte esterase Test strip Ql (U) Negative Normal Negative [facility] Comment on above: Order Comment: Speci men Type: URINE SPECIMENOrdering Facility: [facility] Address: [address] [place] [address] Performed By: #### L [id number] ####KENDRICK LABORATORYCLIA [id number] [place] [address] [place] Nitrite Ql (U) Negative Normal Negative [facility] Comment on above: Order Comment: Speci men Type: URINE SPECIMENOrdering Facility: [facility] Address: [address] [place] [address] Performed By: #### L [id number] ####KENDRICK LABORATORYCLIA [id number] [place] [address] [place] pH (U) 6.0 [pH] Normal 5.0-8.0 [facility] Comment on above: Order Comment: Speci men Type: URINE SPECIMENOrdering Facility: [facility] Address: [address] [place] [address] Performed By: #### L [id number] ####KENDRICK LABORATORYCLIA [id number] [address] [place] Protein (U) [Mass/Vol] Negative Normal Negative [facility] Comment on above: Order Comment: Speci men Type: URINE SPECIMENOrdering Facility: [facility] Address: [address] [place] [address] Performed By: #### L [id number] ####[facility] LABORATORYCLIA [id number] [address] Specific gravity (U) [Rel density] 1.020 Normal 1.005-1.030 [facility] Comment on above: Order Comment: Speci men Type: URINE SPECIMENOrdering Facility: [facility] Address: [address] [place] [address] Performed By: #### L [id number] ####WELLINGTON LABORATORYCLIA [id number] [address] Urobilinogen Ql (U) 0.2 EU/dL Normal 0.2-1.0 EU/dL [facility] Comment on above: Order Comment: Speci men Type: URINE SPECIMENOrdering Facility: [facility] Address: [address] [place] [address] Performed By: #### L [id number] ####WELLINGTON LABORATORYCLIA [id number] [address] XR CHEST 1V FRONTAL PORTon 0 12-08-2024 XR CHEST 1V FRONTAL PORT * * *Final Repo rt* * * DATE OF EXAM: Dec 08 2024 5:01PM MDX [id number] - XR CHEST 1V FRONTAL PORT / PROCEDURE REASON: Fatigue and malaise * * * * Physician Interpretation * * * * EXAMINATION: CHEST RADIOGRAPH (PORTABLE SINGLE VIEW AP) Exam Date/Time: 12/08/2024 5:01 PM CLINICAL HISTORY: Fatigue and malaise MQ: XCPR_5 Comparison: 07/29/2018 chest radiograph. RESULT: Lines, tubes, and devices: None. Lungs and pleura: Focal opacity in the left lower lobe silhouetting the diaphragm with mild blunting of the left costophrenic angle, the finding may be related to an area of regional airspace disease such as atelectasis and/or trace left pleural effusion. Minimal blunting of the right costophrenic angle. No pneumothorax. Cardiomediastinal silhouette: Stable cardiomediastinal silhouette. Other: Degenerative changes at the shoulder joints and the thoracic spine. No displaced acute fractures are detected. Small hiatal hernia. IMPRESSION: Left lower lobe opacity may be related to atelectasis and/or trace left pleural effusion. Pneumonia is felt unlikely given the findings on the concurrent abdominal CT. Duct Layer Helper: RYAN Transcribe Date/Time: Dec 08 2024 5:22P Dictated by : TAMERA DRAKE MD This examination was interpreted and the report reviewed and electronically signed by: TAMERA DRAKE MD on Dec 08 2024 5:25PM EST [id number] Normal [facility] aPTT PPPon 12-08-2024 aPTT Coag (PPP) [Time] 27.9 s Normal 23.0-32.4 [facility] Comment on above: Order Comment: Speci men Type: BLOOD SPECIMENOrdering Facility: [facility] Address: [address] [place] [address] Performed By: #### 1 4979-9, 23127-5 ####WELLINGTON LABORATORYCLIA [id number] [address] CNPPascale 12-07-2024 CNPN Telephone (FPWADS) TENA CANNON ([id number]) 1940 F Date Time Provider Department 12/07/24 SAHRA GUY During your visit today, we recorded the following information about you: Sugey Stover 12/07/2024 3:21 PM Signed Patient's daughter is calling that the Rx Lidocaine is not covered for the 4% but the 5% is. She is asking if this can be re-ordered as such and sent to [facility] while she is in the [facility] today. Please call Juan if the Rx is being changed/sent. [phone] Sahra Guy MD 12/07/2024 4:52 PM Signed The following approved medication requests have been transmitted electronically. Requested Prescriptions Signed Prescriptions Disp Refills lidocaine (LIDODERM) 5 % 30 patch 2 Sig: Apply 1 patch as directed once daily. REMOVE AFTER 12 HOURS. Authorizing Provider: SAHRA GUY Pharmacy Information Pharmacy Address Telephone [facility]/pharmacy #[id number] [place] [id number] MD Eladio Mitchell Cheralyn, LPN 12/07/2024 5:17 PM Signed Called and spoke with pt and daughter Juan. 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 Pt would like to know how long it will take for muscle to recover. Please advise. Adonay Marquez LPN 12/08/2024 1:34 PM Signed Please see triage encounter 12/08/24 Allergies As of Date: 12/07/2024 Noted Allergy Reaction KEFLEX (CEPHALEXIN) 05/12/2005 6 - Diarrhea 8 - GI Upset Comments: extreme diarrhea VIOXX (ROFECOXIB) 05/12/2005 5 - Intolerance Comments: Makes capillaryblood vessels break NOVOCAIN (PROCAINE HCL) 01/13/2024 5 - Intolerance Comments: headaches OMEGA-3 FISH OIL (OMEGA-3 FATTY A*05/05/2007 5 - Intolerance Comments: bleeding in eye ADVIL (IBUPROFEN) 05/28/2005 5 - Intolerance Comments: Makes capillary blood vessels bread ASA (SALICYLATES) 05/28/2005 5 - Intolerance Comments: Makes capillary blood vessels break Date Reviewed: 09/16/2024 Reviewed by: Malika Sheikh LPN - Fully Assessed Reason for Visit: Medication Problem [65] Cmt: Lidocaine 5% is covered, not the 4% Primary Visit Diagnosis:Back pain, unspecified back location, unspecified back pain laterality, unspecified chronicity [M54.9] Order(s):lidocaine (LIDODERM) 5 %Apply 1 patch as directed once daily. REMOVE AFTER 12 HOURS.Disp: 30 patchRfl: 2 Prescriptions as of 12/08/2024 - lidocaine (LIDODERM) 5 % Apply 1 patch as directed once daily. REMOVE AFTER 12 HOURS. - metFORMIN (GLUCOPHAGE) 500 mg tablet Take 1 tablet by mouth daily with breakfast. - oxybutynin ER (DITROPAN XL) 10 mg 24 hr tablet Take 1 tablet by mouth once daily. - esomeprazole (NEXIUM) 40 mg capsule TAKE 1 CAPSULE DAILY BEFOREBREAKFAST. 1/2 HOUR BEFORE A MEAL - esomeprazole (NEXIUM) 40 mg capsule TAKE 1 CAPSULE DAILY BEFOREBREAKFAST. 1/2 HOUR BEFORE A MEAL - metroNIDAZOLE (METROGEL) 0.75 % Topical Gel APPLY 1 APPLICATION TO AFFECTED AREA ONCE DAILY TOFACE - brimonidine (ALPHAGAN P) 0.1 % drop - loratadine (CLARITIN ORAL) Take by mouth. - nystatin-triamcinolone (MYCOLOG) ointment Apply sparingly to perineum twice daily for irritation/infection. - atropine 1 % ophthalmic solution - sulfacetamide (BLEPH-10) 10 % ophthalmic solution Use 1 Drop in both eyes four times daily. INSIDE LOWER EYELID(S) 1-4 TIMES DAILY AND AT BEDTIME - miconazole (MONISTAT 7) 2 % vaginal cream Use 1 Applicator vaginally daily at bedtime. - calcium carbonate (CALCIUM 500 ORAL) Take by mouth every other day. - BIOTIN ORAL Take 1 capsule by mouth once daily. - vitamin B complex (B COMPLEX VITAMINS ORAL) Take 1 tablet by mouth once daily. - ergocalciferol, vitamin D2, (VITAMIN D2 ORAL) Take 1 tablet by mouth once daily. - ferrous sulfate 325 mg (65 mg iron) tablet Take 325 mg by mouth every other day. - therapeutic multivitamin w/ iron (THERAGRAN-M) 9 mg iron-400 mcg tablet Take 1 tablet by mouth once daily. - prednisoLONE acetate (PRED FORTE, ECONOPRED PLUS) 1 % ophthalmic suspension Use 1 Drop in the left eye twice daily as needed. - timolol maleate (TIMOPTIC) 0.5 % ophthalmic solution Use 1 Drop in the left eye every morning. - polyvinyl alcohol (LIQUID TEARS OPHTHALMIC) Use in eyes. - rutin/hesp/bioflav/C/h [id number] (BIOFLEX ORAL) Take 1 capsule by mouth twice daily. - CPAP BipaP @ 14/9 cm of water with humidification, removable water dispenser (for cleaning) . Mask (small/ per patient preference) , filters, tubing, humidifier and lifetime supplies. (G47.33, Z99.89) Obstructive sleep apnea on CPAP - cyclopentolate (CYCLOGYL) 1 % ophthalmic solution Use 1 Drop in the left eye two times a day. Problem List As Of Date 12/07/2024 Noted Resolved GERD (gastroesophageal reflux disease) [K21.9] 05/12/2005 Late effects of acute poliomyelitis [B91] 05/12/2005 Varicose veins of lower extremities with ulcer *05/28/2005 08/23/2024 VENOUS INSUFFICIENCY (more content not included)... Normal [facility] CNPNon 10-24-2024 CNPN Telephone (FPWADS) TENA CANNON ([id number]) 1940 F Date Time Provider Department 10/24/24 SAHRA GUY FPWADS During your visit today, we recorded the following information about you: Malika Sheikh LPN 10/24/2024 3:34 PM Signed Received 10/21/2024 from [facility]. Placed in provider's inbox for review. Route to [place] for faxing Allergies As of Date: 10/24/2024 Noted Allergy Reaction KEFLEX (CEPHALEXIN) 05/12/2005 6 - Diarrhea 8 - GI Upset Comments: extreme diarrhea VIOXX (ROFECOXIB) 05/12/2005 5 - Intolerance Comments: Makes capillaryblood vessels break NOVOCAIN (PROCAINE HCL) 01/13/2024 5 - Intolerance Comments: headaches OMEGA-3 FISH OIL (OMEGA-3 FATTY A*05/05/2007 5 - Intolerance Comments: bleeding in eye ADVIL (IBUPROFEN) 05/28/2005 5 - Intolerance Comments: Makes capillary blood vessels bread ASA (SALICYLATES) 05/28/2005 5 - Intolerance Comments: Makes capillary blood vessels break Date Reviewed: 09/16/2024 Reviewed by: Malika Sheikh LPN - Fully Assessed Reason for Visit: Received Outside Medical Records [[id number]] Cmt: [facility] OT Evaluation performed no further treatment. 10/20/2024 Prescriptions as of 10/24/2024 - metFORMIN (GLUCOPHAGE) 500 mg tablet Take 1 tablet by mouth daily with breakfast. - oxybutynin ER (DITROPAN XL) 10 mg 24 hr tablet Take 1 tablet by mouth once daily. - esomeprazole (NEXIUM) 40 mg capsule TAKE 1 CAPSULE DAILY BEFOREBREAKFAST. 1/2 HOUR BEFORE A MEAL - esomeprazole (NEXIUM) 40 mg capsule TAKE 1 CAPSULE DAILY BEFOREBREAKFAST. 1/2 HOUR BEFORE A MEAL - metroNIDAZOLE (METROGEL) 0.75 % Topical Gel APPLY 1 APPLICATION TO AFFECTED AREA ONCE DAILY TOFACE - brimonidine (ALPHAGAN P) 0.1 % drop - loratadine (CLARITIN ORAL) Take by mouth. - nystatin-triamcinolone (MYCOLOG) ointment Apply sparingly to perineum twice daily for irritation/infection. - atropine 1 % ophthalmic solution - sulfacetamide (BLEPH-10) 10 % ophthalmic solution Use 1 Drop in both eyes four times daily. INSIDE LOWER EYELID(S) 1-4 TIMES DAILY AND AT BEDTIME - miconazole (MONISTAT 7) 2 % vaginal cream Use 1 Applicator vaginally daily at bedtime. - calcium carbonate (CALCIUM 500 ORAL) Take by mouth every other day. - BIOTIN ORAL Take 1 capsule by mouth once daily. - vitamin B complex (B COMPLEX VITAMINS ORAL) Take 1 tablet by mouth once daily. - ergocalciferol, vitamin D2, (VITAMIN D2 ORAL) Take 1 tablet by mouth once daily. - ferrous sulfate 325 mg (65 mg iron) tablet Take 325 mg by mouth every other day. - therapeutic multivitamin w/ iron (THERAGRAN-M) 9 mg iron-400 mcg tablet Take 1 tablet by mouth once daily. - prednisoLONE acetate (PRED FORTE, ECONOPRED PLUS) 1 % ophthalmic suspension Use 1 Drop in the left eye twice daily as needed. - timolol maleate (TIMOPTIC) 0.5 % ophthalmic solution Use 1 Drop in the left eye every morning. - polyvinyl alcohol (LIQUID TEARS OPHTHALMIC) Use in eyes. - rutin/hesp/bioflav/C/h [id number] (BIOFLEX ORAL) Take 1 capsule by mouth twice daily. - CPAP BipaP @ 14/9 cm of water with humidification, removable water dispenser (for cleaning) . Mask (small/ per patient preference) , filters, tubing, humidifier and lifetime supplies. (G47.33, Z99.89) Obstructive sleep apnea on CPAP - cyclopentolate (CYCLOGYL) 1 % ophthalmic solution Use 1 Drop in the left eye two times a day. 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] 04/14/2006 LUMBAGO [M54.50] 01/05/2007 PAIN IN JOINT, LOWER LEG [M25.569] 01/22/2007 VERTEBRAL FX NOS-CLOSED [[id number]] 03/24/2007 RESTLESS LEGS SYNDROME [G25.81] BONE AND CARTILAGE DIS NOS [M89.9, M94.9] PAIN IN LIMB [M79.609] 11/22/2008 Deformity of ankle and foot, acquired [M21.969] 11/22/2008 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, 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] 11/27/2008 Poliomyelitis osteopathy of multiple sites (HCC*11/27/2008 Sleep apnea [G47.30] 04/15/2010 02/01/2019 Vitamin D Deficiency [E55.9] 04/15/2010 Osteopenia [M85.80] 04/15/2010 Incontinence [R32] 07/19/2012 Fracture of L1 vertebra (HCC) [S32.019A] 06/02/2014 02/01/2019 Lumbar radiculopathy [M54.16] 06/03/2014 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 Normal [facility] Agustina 10-19-2024 PHAN Telephone (WALKWA) TENA CANNON ([id number]) 1940 F Date Time Provider Department 10/19/24 SAHRA GUY During your visit today, we recorded the following information about you: Adonya Marquez LPN 10/19/2024 5:27 PM Signed Received orders from [facility]. Placed in provider's inbox for review. Route to [place] fax Allergies As of Date: 10/19/2024 Noted Allergy Reaction KEFLEX (CEPHALEXIN) 05/12/2005 6 - Diarrhea 8 - GI Upset Comments: extreme diarrhea VIOXX (ROFECOXIB) 05/12/2005 5 - Intolerance Comments: Makes capillaryblood vessels break NOVOCAIN (PROCAINE HCL) 01/13/2024 5 - Intolerance Comments: headaches OMEGA-3 FISH OIL (OMEGA-3 FATTY A*05/05/2007 5 - Intolerance Comments: bleeding in eye ADVIL (IBUPROFEN) 05/28/2005 5 - Intolerance Comments: Makes capillary blood vessels bread ASA (SALICYLATES) 05/28/2005 5 - Intolerance Comments: Makes capillary blood vessels break Date Reviewed: 09/16/2024 Reviewed by: Malika Sheikh LPN - Fully Assessed Reason for Visit: Orders [681] Cmt: [facility] Prescriptions as of 10/19/2024 - metFORMIN (GLUCOPHAGE) 500 mg tablet Take 1 tablet by mouth daily with breakfast. - oxybutynin ER (DITROPAN XL) 10 mg 24 hr tablet Take 1 tablet by mouth once daily. - esomeprazole (NEXIUM) 40 mg capsule TAKE 1 CAPSULE DAILY BEFOREBREAKFAST. 1/2 HOUR BEFORE A MEAL - esomeprazole (NEXIUM) 40 mg capsule TAKE 1 CAPSULE DAILY BEFOREBREAKFAST. 1/2 HOUR BEFORE A MEAL - metroNIDAZOLE (METROGEL) 0.75 % Topical Gel APPLY 1 APPLICATION TO AFFECTED AREA ONCE DAILY TOFACE - brimonidine (ALPHAGAN P) 0.1 % drop - loratadine (CLARITIN ORAL) Take by mouth. - nystatin-triamcinolone (MYCOLOG) ointment Apply sparingly to perineum twice daily for irritation/infection. - atropine 1 % ophthalmic solution - sulfacetamide (BLEPH-10) 10 % ophthalmic solution Use 1 Drop in both eyes four times daily. INSIDE LOWER EYELID(S) 1-4 TIMES DAILY AND AT BEDTIME - miconazole (MONISTAT 7) 2 % vaginal cream Use 1 Applicator vaginally daily at bedtime. - calcium carbonate (CALCIUM 500 ORAL) Take by mouth every other day. - BIOTIN ORAL Take 1 capsule by mouth once daily. - vitamin B complex (B COMPLEX VITAMINS ORAL) Take 1 tablet by mouth once daily. - ergocalciferol, vitamin D2, (VITAMIN D2 ORAL) Take 1 tablet by mouth once daily. - ferrous sulfate 325 mg (65 mg iron) tablet Take 325 mg by mouth every other day. - therapeutic multivitamin w/ iron (THERAGRAN-M) 9 mg iron-400 mcg tablet Take 1 tablet by mouth once daily. - prednisoLONE acetate (PRED FORTE, ECONOPRED PLUS) 1 % ophthalmic suspension Use 1 Drop in the left eye twice daily as needed. - timolol maleate (TIMOPTIC) 0.5 % ophthalmic solution Use 1 Drop in the left eye every morning. - polyvinyl alcohol (LIQUID TEARS OPHTHALMIC) Use in eyes. - rutin/hesp/bioflav/C/h [id number] (BIOFLEX ORAL) Take 1 capsule by mouth twice daily. - CPAP BipaP @ 14/9 cm of water with humidification, removable water dispenser (for cleaning) . Mask (small/ per patient preference) , filters, tubing, humidifier and lifetime supplies. (G47.33, Z99.89) Obstructive sleep apnea on CPAP - cyclopentolate (CYCLOGYL) 1 % ophthalmic solution Use 1 Drop in the left eye two times a day. 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] 04/14/2006 LUMBAGO [M54.50] 01/05/2007 PAIN IN JOINT, LOWER LEG [M25.569] 01/22/2007 VERTEBRAL FX NOS-CLOSED [[id number]] 03/24/2007 RESTLESS LEGS SYNDROME [G25.81] BONE AND CARTILAGE DIS NOS [M89.9, M94.9] PAIN IN LIMB [M79.609] 11/22/2008 Deformity of ankle and foot, acquired [M21.969] 11/22/2008 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, M21.6X9] 11/27/2008 Poliomyelitis osteopathy of multiple sites (HCC*11/27/2008 Sleep apnea [G47.30] 04/15/2010 02/01/2019 Vitamin D Deficiency [E55.9] 04/15/2010 Osteopenia [M85.80] 04/15/2010 Incontinence [R32] 07/19/2012 Fracture of L1 vertebra ([facility]) [S32.019A] 06/02/2014 02/01/2019 Lumbar radiculopathy [M54.16] 06/03/2014 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 Obstructive sleep apnea on CPAP [G47.33] 07/14/2017 Rosacea [L71.9] 10/13/2017 Obesity, Class III, BMI 40-49.9 (morbid obesity*12/02/2017 Generalized weakness [R53.1] 07/29/2018 Shingles rash [B02.9] 07/29/2018 02/01/2019 Herpes zoster lesion [B02.8] 07/29/2018 02/01/2019 Epigastric pain [R10.13] 08/25/2018 11/24/2018 Encounter Status:Closed by ADONAY MARQUEZ on 10/19/24 [facility] Agustina 10-12-2024 PHAN Telephone (FPWADS) TENA CANNON ([id number]) 1940 F Date Time Provider Department 10/12/24 SAHRA GUY During your visit today, we recorded the following information about you: Cris Rascon 10/12/2024 2:06 PM Signed Tena is calling Sahra Guy MD today with concern regarding PT Eval Physical therapy once a week for eight weeks. Patient has been identified by name and birthdate. Duration of symptoms: N/A Person calling: [facility] Physical therapy Closing statement: Results or non-symptom based questions: Thank you for calling [facility], your call will be returned within the next business day. Crisyaneth BallLeonid Ha APRN.ANTONY 10/12/2024 4:17 PM Signed Yes, please give verbal order Leonid Leal APRN.Adonay Cuevas LPN 10/12/2024 4:28 PM Signed Verbal order given Allergies As of Date: 10/12/2024 Noted Allergy Reaction KEFLEX (CEPHALEXIN) 05/12/2005 6 - Diarrhea 8 - GI Upset Comments: extreme diarrhea VIOXX (ROFECOXIB) 05/12/2005 5 - Intolerance Comments: Makes capillaryblood vessels break NOVOCAIN (PROCAINE HCL) 01/13/2024 5 - Intolerance Comments: headaches OMEGA-3 FISH OIL (OMEGA-3 FATTY A*05/05/2007 5 - Intolerance Comments: bleeding in eye ADVIL (IBUPROFEN) 05/28/2005 5 - Intolerance Comments: Makes capillary blood vessels bread ASA (SALICYLATES) 05/28/2005 5 - Intolerance Comments: Makes capillary blood vessels break Date Reviewed: 09/16/2024 Reviewed by: Malika Sheikh LPN - Fully Assessed Reason for Visit: PT Eval [747] Prescriptions as of 10/12/2024 - metFORMIN (GLUCOPHAGE) 500 mg tablet Take 1 tablet by mouth daily with breakfast. - oxybutynin ER (DITROPAN XL) 10 mg 24 hr tablet Take 1 tablet by mouth once daily. - esomeprazole (NEXIUM) 40 mg capsule TAKE 1 CAPSULE DAILY BEFOREBREAKFAST. 1/2 HOUR BEFORE A MEAL - esomeprazole (NEXIUM) 40 mg capsule TAKE 1 CAPSULE DAILY BEFOREBREAKFAST. 1/2 HOUR BEFORE A MEAL - metroNIDAZOLE (METROGEL) 0.75 % Topical Gel APPLY 1 APPLICATION TO AFFECTED AREA ONCE DAILY TOFACE - brimonidine (ALPHAGAN P) 0.1 % drop - loratadine (CLARITIN ORAL) Take by mouth. - nystatin-triamcinolone (MYCOLOG) ointment Apply sparingly to perineum twice daily for irritation/infection. - atropine 1 % ophthalmic solution - sulfacetamide (BLEPH-10) 10 % ophthalmic solution Use 1 Drop in both eyes four times daily. INSIDE LOWER EYELID(S) 1-4 TIMES DAILY AND AT BEDTIME - miconazole (MONISTAT 7) 2 % vaginal cream Use 1 Applicator vaginally daily at bedtime. - calcium carbonate (CALCIUM 500 ORAL) Take by mouth every other day. - BIOTIN ORAL Take 1 capsule by mouth once daily. - vitamin B complex (B COMPLEX VITAMINS ORAL) Take 1 tablet by mouth once daily. - ergocalciferol, vitamin D2, (VITAMIN D2 ORAL) Take 1 tablet by mouth once daily. - ferrous sulfate 325 mg (65 mg iron) tablet Take 325 mg by mouth every other day. - therapeutic multivitamin w/ iron (THERAGRAN-M) 9 mg iron-400 mcg tablet Take 1 tablet by mouth once daily. - prednisoLONE acetate (PRED FORTE, ECONOPRED PLUS) 1 % ophthalmic suspension Use 1 Drop in the left eye twice daily as needed. - timolol maleate (TIMOPTIC) 0.5 % ophthalmic solution Use 1 Drop in the left eye every morning. - polyvinyl alcohol (LIQUID TEARS OPHTHALMIC) Use in eyes. - rutin/hesp/bioflav/C/h [id number] (BIOFLEX ORAL) Take 1 capsule by mouth twice daily. - CPAP BipaP @ 14/9 cm of water with humidification, removable water dispenser (for cleaning) . Mask (small/ per patient preference) , filters, tubing, humidifier and lifetime supplies. (G47.33, Z99.89) Obstructive sleep apnea on CPAP - cyclopentolate (CYCLOGYL) 1 % ophthalmic solution Use 1 Drop in the left eye two times a day. 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] 04/14/2006 LUMBAGO [M54.50] 01/05/2007 PAIN IN JOINT, LOWER LEG [M25.569] 01/22/2007 VERTEBRAL FX NOS-CLOSED [[id number]] 03/24/2007 RESTLESS LEGS SYNDROME [G25.81] BONE AND CARTILAGE DIS NOS [M89.9, M94.9] PAIN IN LIMB [M79.609] 11/22/2008 Deformity of ankle and foot, acquired [M21.969] 11/22/2008 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, M21.6X9] 11/27/2008 Poliomyelitis osteopathy of multiple sites (HCC*11/27/2008 Sleep apnea [G47.30] 04/15/2010 02/01/2019 Vitamin D Deficiency [E55.9] 04/15/2010 Osteopenia [M85.80] 04/15/2010 Incontinence [R32] 07/19/2012 Fracture of L1 vertebra (HCC) [S32.019A] 06/02/2014 02/01/2019 Lumbar radiculopathy [M54.16] 06/03/2014 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 Normal [facility] Agustina 10-11-2024 CNPN Telephone (FPWADS) TENA CANNON ([id number]) 1940 F Date Time Provider Department 10/11/24 SAHRA GUY During your visit today, we recorded the following information about you: Rachel Stacy Terry 10/11/2024 1:14 PM Signed Jonathon from [facility] is calling for a verbal order for patient's home health care physical therapy. Malika Sheikh LPN 10/11/2024 2:00 PM Signed Verbal order given to per Dr Guy's original order for OT. Allergies As of Date: 10/11/2024 Noted Allergy Reaction KEFLEX (CEPHALEXIN) 05/12/2005 6 - Diarrhea 8 - GI Upset Comments: extreme diarrhea VIOXX (ROFECOXIB) 05/12/2005 5 - Intolerance Comments: Makes capillaryblood vessels break NOVOCAIN (PROCAINE HCL) 01/13/2024 5 - Intolerance Comments: headaches OMEGA-3 FISH OIL (OMEGA-3 FATTY A*05/05/2007 5 - Intolerance Comments: bleeding in eye ADVIL (IBUPROFEN) 05/28/2005 5 - Intolerance Comments: Makes capillary blood vessels bread ASA (SALICYLATES) 05/28/2005 5 - Intolerance Comments: Makes capillary blood vessels break Date Reviewed: 09/16/2024 Reviewed by: Malika Sheikh LPN - Fully Assessed Reason for Visit: Orders [681] Prescriptions as of 10/11/2024 - metFORMIN (GLUCOPHAGE) 500 mg tablet Take 1 tablet by mouth daily with breakfast. - oxybutynin ER (DITROPAN XL) 10 mg 24 hr tablet Take 1 tablet by mouth once daily. - esomeprazole (NEXIUM) 40 mg capsule TAKE 1 CAPSULE DAILY BEFOREBREAKFAST. 1/2 HOUR BEFORE A MEAL - esomeprazole (NEXIUM) 40 mg capsule TAKE 1 CAPSULE DAILY BEFOREBREAKFAST. 1/2 HOUR BEFORE A MEAL - metroNIDAZOLE (METROGEL) 0.75 % Topical Gel APPLY 1 APPLICATION TO AFFECTED AREA ONCE DAILY TOFACE - brimonidine (ALPHAGAN P) 0.1 % drop - loratadine (CLARITIN ORAL) Take by mouth. - nystatin-triamcinolone (MYCOLOG) ointment Apply sparingly to perineum twice daily for irritation/infection. - atropine 1 % ophthalmic solution - sulfacetamide (BLEPH-10) 10 % ophthalmic solution Use 1 Drop in both eyes four times daily. INSIDE LOWER EYELID(S) 1-4 TIMES DAILY AND AT BEDTIME - miconazole (MONISTAT 7) 2 % vaginal cream Use 1 Applicator vaginally daily at bedtime. - calcium carbonate (CALCIUM 500 ORAL) Take by mouth every other day. - BIOTIN ORAL Take 1 capsule by mouth once daily. - vitamin B complex (B COMPLEX VITAMINS ORAL) Take 1 tablet by mouth once daily. - ergocalciferol, vitamin D2, (VITAMIN D2 ORAL) Take 1 tablet by mouth once daily. - ferrous sulfate 325 mg (65 mg iron) tablet Take 325 mg by mouth every other day. - therapeutic multivitamin w/ iron (THERAGRAN-M) 9 mg iron-400 mcg tablet Take 1 tablet by mouth once daily. - prednisoLONE acetate (PRED FORTE, ECONOPRED PLUS) 1 % ophthalmic suspension Use 1 Drop in the left eye twice daily as needed. - timolol maleate (TIMOPTIC) 0.5 % ophthalmic solution Use 1 Drop in the left eye every morning. - polyvinyl alcohol (LIQUID TEARS OPHTHALMIC) Use in eyes. - rutin/hesp/bioflav/C/h [id number] (BIOFLEX ORAL) Take 1 capsule by mouth twice daily. - CPAP BipaP @ 14/9 cm of water with humidification, removable water dispenser (for cleaning) . Mask (small/ per patient preference) , filters, tubing, humidifier and lifetime supplies. (G47.33, Z99.89) Obstructive sleep apnea on CPAP - cyclopentolate (CYCLOGYL) 1 % ophthalmic solution Use 1 Drop in the left eye two times a day. 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] 04/14/2006 LUMBAGO [M54.50] 01/05/2007 PAIN IN JOINT, LOWER LEG [M25.569] 01/22/2007 VERTEBRAL FX NOS-CLOSED [[id number]] 03/24/2007 RESTLESS LEGS SYNDROME [G25.81] BONE AND CARTILAGE DIS NOS [M89.9, M94.9] PAIN IN LIMB [M79.609] 11/22/2008 Deformity of ankle and foot, acquired [M21.969] 11/22/2008 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, M21.6X9] 11/27/2008 Poliomyelitis osteopathy of multiple sites (HCC*11/27/2008 Sleep apnea [G47.30] 04/15/2010 02/01/2019 Vitamin D Deficiency [E55.9] 04/15/2010 Osteopenia [M85.80] 04/15/2010 Incontinence [R32] 07/19/2012 Fracture of L1 vertebra ([facility]) [S32.019A] 06/02/2014 02/01/2019 Lumbar radiculopathy [M54.16] 06/03/2014 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 Normal [facility] Agustina 10-06-2024 CNPN Telephone (LINDY) TENA CANNON ([id number]) 1940 F Date Time Provider Department 10/06/24 SAHRA GUY During your visit today, we recorded the following information about you: Tete Melchor 10/06/2024 9:14 AM Signed Tena is calling Sahra Guy MD today with concern regarding she slipped in shower even with anti-slip sticks on shower floor. She stated muscles in her legs are getting worse to move, she had polio and it also affects the nerves. She feels like she would benefit with occupational therapy. Please call her today. Patient has been identified by name and birthdate. Duration of symptoms: N/A Person calling: self Call patient at: at home [phone] (home) [phone] (cell) Was an appointment scheduled: No Closing statement: Results or non-symptom based questions: Thank you for calling [facility], your call will be returned within the next business day. Sahra James MD 10/06/2024 10:41 AM Signed Generally speaking, physical therapy addresses lower extremity issue. Happy to initiate referral Therapy order placed. 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 Muscle strain of lower leg, unspecified laterality, initial encounter [id number] CONSULT TO PHYSICAL THERAPY Fax to facility MD Aguilar Mitchell Lisa, LPN 10/06/2024 4:04 PM Signed Patient wanting an OT referral to educate and advise patient on ways not to fall in the bathroom. Sahra Guy MD 10/10/2024 2:08 PM Signed Encounter Diagnosis ICD-10-CM 1. 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 Muscle strain of lower leg, unspecified laterality, initial encounter S86.919A CONSULT TO PHYSICAL THERAPY CONSULT TO MANAGEMENT COORDINATOR 3. Falls frequently R29.6 CONSULT TO MANAGEMENT COORDINATOR Please fax order , does she know which agency comes to her facility MD Aguilar Mitchell Lisa, LPN 10/10/2024 3:52 PM Signed Patient will call back with name of therapy that goes to her facility Ninfa Erwin, RN 10/11/2024 10:23 AM Signed Patient called and LVM on Nurse Triage line; [facility], phone number is [phone] Malika Sheikh LPN 10/11/2024 12:49 PM Signed Orders faxed. Allergies As of Date: 10/06/2024 Noted Allergy Reaction KEFLEX (CEPHALEXIN) 05/12/2005 6 - Diarrhea 8 - GI Upset Comments: extreme diarrhea VIOXX (ROFECOXIB) 05/12/2005 5 - Intolerance Comments: Makes capillaryblood vessels break NOVOCAIN (PROCAINE HCL) 01/13/2024 5 - Intolerance Comments: headaches OMEGA-3 FISH OIL (OMEGA-3 FATTY A*05/05/2007 5 - Intolerance Comments: bleeding in eye ADVIL (IBUPROFEN) 05/28/2005 5 - Intolerance Comments: Makes capillary blood vessels bread ASA (SALICYLATES) 05/28/2005 5 - Intolerance Comments: Makes capillary blood vessels break Date Reviewed: 09/16/2024 Reviewed by: Malika Sheikh LPN - Fully Assessed Reason for Visit: Patient Question [6657] Cmt: Slipped in shower Primary Visit Diagnosis: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 - oxybutynin ER (DITROPAN XL) 10 mg 24 hr tablet Take 1 tablet by mouth once daily. - esomeprazole (NEXIUM) 40 mg capsule TAKE 1 CAPSULE DAILY BEFOREBREAKFAST. 1/2 HOUR BEFORE A MEAL - esomeprazole (NEXIUM) 40 mg capsule TAKE 1 CAPSULE DAILY BEFOREBREAKFAST. 1/2 HOUR BEFORE A MEAL - metroNIDAZOLE (METROGEL) 0.75 % Topical Gel APPLY 1 APPLICATION TO AFFECTED AREA ONCE DAILY TOFACE - brimonidine (ALPHAGAN P) 0.1 % drop - loratadine (CLARITIN ORAL) Take by mouth. - nystatin-triamcinolone (MYCOLOG) ointment Apply sparingly to perineum twice daily for irritation/infection. - atropine 1 % ophthalmic solution - sulfacetamide (BLEPH-10) 10 % ophthalmic solution Use 1 Drop in both eyes four times daily. INSIDE LOWER EYELID(S) 1-4 TIMES DAILY AND AT BEDTIME - miconazole (MONISTAT 7) 2 % vaginal cream Use 1 Applicator vaginally daily at bedtime. - calcium carbonate (CALCIUM 500 ORAL) Take by mouth every other day. - BIOTIN ORAL Take 1 capsule by mouth once daily. - vitamin B complex (B COMPLEX VITAMINS ORAL) Take 1 tablet by mouth once daily. - ergocalciferol, vitamin D2, (VITAMIN D2 ORAL) Take 1 tablet by mouth once daily. - ferrous sulfate 325 mg (65 mg iron) tablet Take 325 mg by mouth every other day. - therapeutic multivitamin w/ iron (more content not included)... [facility] [place] [facility] ANTONYN Telephone ([facility]UL[facility]ANA M) TENA CANNON ([id number]) 1940 F Date Time Provider Department 09/23/24 SAHRA GUY During your visit today, we recorded the following information about you: Malika Sheikh LPN 09/23/2024 10:07 AM Signed [facility] Placed in provider's inbox for review. Route to [place] for faxing. Allergies As of Date: 09/23/2024 Noted Allergy Reaction KEFLEX (CEPHALEXIN) 05/12/2005 6 - Diarrhea 8 - GI Upset Comments: extreme diarrhea VIOXX (ROFECOXIB) 05/12/2005 5 - Intolerance Comments: Makes capillaryblood vessels break NOVOCAIN (PROCAINE HCL) 01/13/2024 5 - Intolerance Comments: headaches OMEGA-3 FISH OIL (OMEGA-3 FATTY A*05/05/2007 5 - Intolerance Comments: bleeding in eye ADVIL (IBUPROFEN) 05/28/2005 5 - Intolerance Comments: Makes capillary blood vessels bread ASA (SALICYLATES) 05/28/2005 5 - Intolerance Comments: Makes capillary blood vessels break Date Reviewed: 09/16/2024 Reviewed by: Malika Sheikh LPN - Fully Assessed Reason for Visit: Received Outside Medical Records [3579] Cmt: [facility] Face to Face Encounter Documentation encounter 08/23/2024 Prescriptions as of 09/23/2024 - valACYclovir (VALTREX) 1 gram tablet Take 1 tablet by mouth three times a day for 7 days. - metFORMIN (GLUCOPHAGE) 500 mg tablet Take 1 tablet by mouth daily with breakfast. - oxybutynin ER (DITROPAN XL) 10 mg 24 hr tablet Take 1 tablet by mouth once daily. - esomeprazole (NEXIUM) 40 mg capsule TAKE 1 CAPSULE DAILY BEFOREBREAKFAST. 1/2 HOUR BEFORE A MEAL - esomeprazole (NEXIUM) 40 mg capsule TAKE 1 CAPSULE DAILY BEFOREBREAKFAST. 1/2 HOUR BEFORE A MEAL - metroNIDAZOLE (METROGEL) 0.75 % Topical Gel APPLY 1 APPLICATION TO AFFECTED AREA ONCE DAILY TOFACE - brimonidine (ALPHAGAN P) 0.1 % drop - loratadine (CLARITIN ORAL) Take by mouth. - nystatin-triamcinolone (MYCOLOG) ointment Apply sparingly to perineum twice daily for irritation/infection. - atropine 1 % ophthalmic solution - sulfacetamide (BLEPH-10) 10 % ophthalmic solution Use 1 Drop in both eyes four times daily. INSIDE LOWER EYELID(S) 1-4 TIMES DAILY AND AT BEDTIME - miconazole (MONISTAT 7) 2 % vaginal cream Use 1 Applicator vaginally daily at bedtime. - calcium carbonate (CALCIUM 500 ORAL) Take by mouth every other day. - BIOTIN ORAL Take 1 capsule by mouth once daily. - vitamin B complex (B COMPLEX VITAMINS ORAL) Take 1 tablet by mouth once daily. - ergocalciferol, vitamin D2, (VITAMIN D2 ORAL) Take 1 tablet by mouth once daily. - ferrous sulfate 325 mg (65 mg iron) tablet Take 325 mg by mouth every other day. - therapeutic multivitamin w/ iron (THERAGRAN-M) 9 mg iron-400 mcg tablet Take 1 tablet by mouth once daily. - prednisoLONE acetate (PRED FORTE, ECONOPRED PLUS) 1 % ophthalmic suspension Use 1 Drop in the left eye twice daily as needed. - timolol maleate (TIMOPTIC) 0.5 % ophthalmic solution Use 1 Drop in the left eye every morning. - polyvinyl alcohol (LIQUID TEARS OPHTHALMIC) Use in eyes. - rutin/hesp/bioflav/C/h (BIOFLEX ORAL) Take 1 capsule by mouth twice daily. - CPAP BipaP @ 14/9 cm of water with humidification, removable water dispenser (for cleaning) . Mask (small/ per patient preference) , filters, tubing, humidifier and lifetime supplies. (G47.33, Z99.89) Obstructive sleep apnea on CPAP - cyclopentolate (CYCLOGYL) 1 % ophthalmic solution Use 1 Drop in the left eye two times a day. 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] 04/14/2006 LUMBAGO [M54.50] 01/05/2007 PAIN IN JOINT, LOWER LEG [M25.569] 01/22/2007 VERTEBRAL FX NOS-CLOSED [SOD1817] 03/24/2007 RESTLESS LEGS SYNDROME [G25.81] BONE AND CARTILAGE DIS NOS [M89.9, M94.9] PAIN IN LIMB [M79.609] 11/22/2008 Deformity of ankle and foot, acquired [M21.969] 11/22/2008 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, M21.6X9] 11/27/2008 Poliomyelitis osteopathy of multiple sites ([facility]*11/27/2008 Sleep apnea [G47.30] 04/15/2010 02/01/2019 Vitamin D Deficiency [E55.9] 04/15/2010 Osteopenia [M85.80] 04/15/2010 Incontinence [R32] 07/19/2012 Fracture of L1 vertebra ([facility]) [S32.019A] 06/02/2014 02/01/2019 Lumbar radiculopathy [M54.16] 06/03/2014 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 [facility] CNOVon 09-16-2024 CNOV Office Visit (LINDY ) TENA CANNON ([id number]) 1940 F Date Time Provider Department 09/16/24 11:20 AM SAHRA GUY During your visit today, we recorded the following information about you: Pulse Blood pressure 76/minute 112/70 Sahra Guy MD 09/16/2024 12:46 PM Signed CHIEF COMPLAINT Patient presents with: Follow Up: Blood work sciatic pain left HISTORY OF PRESENT ILLNESS Tena Cannon is a 84 year old female who presents here today for follow up. I last saw this patient on 08/23/2024. Fall Incident - Fell about 1 month ago - Has a motorized wheelchair, pressed the wrong button the wheelchair by accident, wheelchair sit her scooter - Landed on her butt, hurt her left knee - Endorsing left upper leg/hip pain - Admits to low back/tail bone pain - Not sure if it related to recent fall - Has difficulty laying in bed - Pain alleviated when she places a pillow between her legs in bed - Still has to have help getting out bed, has pain when trying to sit up - Has been sleeping in her recliner chair, does not like to call for help Arthritis - Of the hand - Bothersome - Requests refill of valacyclovir, states that this has been beneficial for her in the past Health Maintenance Due for DTaP, Tdap, Td Vaccine (1- Tdap) Due for Advance Directive Discussion Labs reviewed. Past medical history, appointments, medications, allergies reviewed. REVIEW OF SYSTEMS General: Feels well, no weight changes, fevers or chills. HEENT: No sinus congestion, earache, sore throat. Cardiac: No chest pain, palpitations Resp: No cough, wheeze, shortness of breath GI: No reflux symptoms, food intolerance, bowel changes. : No urinary frequency, dysuria. 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 Leukopenia Unspecified sleep apnea cpap PHYSICAL EXAMINATION BP 104/80 Pulse 76 Repeat BP: 112/70 General: Alert, well developed, well nourished, no distress, pleasant and cooperative. Heart: Regular rate and rhythm. Normal S1 and S2. No murmurs, rubs, or gallops. Lungs: Clear to auscultation bilaterally. No respiratory distress. No wheezes, rales, or rhonchi. Abdomen: Soft, non-tender, no distention. Extremities: Feet/ankles without edema, posterior tibial pulses full and symmetrical. Data Reviewed 09/09/2024 Reconciled Outside Lab Data: HEMOGLOBIN A1C <5.7 %HbA1C 4.5 SODIUM 136 - 145 mmol/L 138 POTASSIUM 3.5 - 5.1 mmol/L 4.1 Comment: Plasma potassium values may be up to 0.5 mmol/L lower than serum values. CHLORIDE 98 - 107 mmol/L 105 CARBON DIOXIDE 23 - 31 mmol/L 31 ANION GAP 3 - 13 mmol/L 2 Low UREA NITROGEN 9 - 23 mg/dL 20 Creatinine, External 0.57 - 1.11 mg/dL 0.56 Low GLUCOSE 82 - 115 mg/dL 91 CALCIUM 8.8 - 10.0 mg/dL 9.8 AST (SGOT) <34 U/L 21 ALT <30 U/L 18 ALKALINE PHOSPHATASE 40 - 150 U/L 59 ALBUMIN 3.4 - 4.8 g/dL 3.6 BILIRUBIN, TOTAL <1.2 mg/dL 0.5 TOTAL PROTEIN 6.4 - 8.3 g/dL 6.7 eGFR >60.0 mL/min/1.73m*2 89 TRIGLYCERIDE <150 mg/dL 80 CHOLESTEROL <200 mg/dL 170 HDL CHOLESTEROL >=60 mg/dL 59 Low CHOL/HDL 3 Comment: Ref Range: < 3 Low Risk for CHD 3-6 Mod Risk for CHD > 6 High Risk for CHD VERY LOW DENSITY LIPOPROTEIN, CALCULATED <=30 mg/dL 16 NON-HDL CHOLESTEROL, CALCULATED <130 111 LOW DENSITY LIPOPROTEIN 0 - <100 mg/dL 95 Assessment/Plan (R29.6) Falling episodes (primary encounter diagnosis) (V00.818A) Fall from motorized wheelchair, initial encounter Comment: Fell about 1 month ago from motorized wheelchair. Landed on her butt, minor injury of the left knee which is not bothersome now Plan: Noted for record (M54.42) Acute left-sided low back pain with left-sided sciatica Comment: Ongoing since fall. She is not wanting xrays or PT at this time Plan: Will continue to monitor (G14) Post-polio syndrome Comment: Status quo Plan: Hand pain. She requests Valtrex, which oddly has helped her arthritis pain on previous occasions. Reluctantly agree to provide a 1x refill Requested Prescriptions Signed Prescriptions Disp Refills valACYclovir (VALTREX) 1 gram tablet 21 tablet 0 Sig: Take 1 tablet by mouth three times a day for 7 days. RTO: as needed Scribe Attestation: By signing my name below, Johan Birmingham, attest that this documentation has been prepared under the direction and in the presence of Jaime Guy M.D. Electronically Signed: Jakob Vale. September 16, 2024 11:30 AM Provider Attestation: Sahra Birmingham MD, personally performed the services describ (more content not included)... Normal [facility] CNPNon 09-09-2024 ANTONYN Telephone (FPWADS) TENA CANNON ([id number]) 1940 F Date Time Provider Department 09/09/24 SAHRA GUY During your visit today, we recorded the following information about you: Cris Rascon 09/09/2024 10:47 AM Signed Tena is calling Sahra Guy MD today with concern regarding Orders Patient is there to get Lab work. If you can please FAX lab orders to them. FAX [phone]. Patient has been identified by name and birthdate. Duration of symptoms: N/A Person calling: Daphnie Forte Was an appointment scheduled: No Closing statement: Results or non-symptom based questions: Thank you for calling [facility], your call will be returned within the next business day. Sugey Cuevas 09/09/2024 10:57 AM Signed Patient called back regarding orders needed. Orders were faxed to : [facility], [place], [facility] [phone] Allergies As of Date: 09/09/2024 Noted Allergy Reaction KEFLEX (CEPHALEXIN) 05/12/2005 6 - Diarrhea 8 - GI Upset Comments: extreme diarrhea VIOXX (ROFECOXIB) 05/12/2005 5 - Intolerance Comments: Makes capillaryblood vessels break NOVOCAIN (PROCAINE HCL) 01/13/2024 5 - Intolerance Comments: headaches OMEGA-3 FISH OIL (OMEGA-3 FATTY A*05/05/2007 5 - Intolerance Comments: bleeding in eye ADVIL (IBUPROFEN) 05/28/2005 5 - Intolerance Comments: Makes capillary blood vessels bread ASA (SALICYLATES) 05/28/2005 5 - Intolerance Comments: Makes capillary blood vessels break Date Reviewed: 08/23/2024 Reviewed by: Adonay Marquez LPN - Fully Assessed Reason for Visit: Orders [681] Patient Update [1234] Cmt: Lab orders were faxed Prescriptions as of 09/09/2024 - metFORMIN (GLUCOPHAGE) 500 mg tablet Take 1 tablet by mouth daily with breakfast. - oxybutynin ER (DITROPAN XL) 10 mg 24 hr tablet Take 1 tablet by mouth once daily. - esomeprazole (NEXIUM) 40 mg capsule TAKE 1 CAPSULE DAILY BEFOREBREAKFAST. 1/2 HOUR BEFORE A MEAL - esomeprazole (NEXIUM) 40 mg capsule TAKE 1 CAPSULE DAILY BEFOREBREAKFAST. 1/2 HOUR BEFORE A MEAL - metroNIDAZOLE (METROGEL) 0.75 % Topical Gel APPLY 1 APPLICATION TO AFFECTED AREA ONCE DAILY TOFACE - brimonidine (ALPHAGAN P) 0.1 % drop - loratadine (CLARITIN ORAL) Take by mouth. - nystatin-triamcinolone (MYCOLOG) ointment Apply sparingly to perineum twice daily for irritation/infection. - atropine 1 % ophthalmic solution - sulfacetamide (BLEPH-10) 10 % ophthalmic solution Use 1 Drop in both eyes four times daily. INSIDE LOWER EYELID(S) 1-4 TIMES DAILY AND AT BEDTIME - miconazole (MONISTAT 7) 2 % vaginal cream Use 1 Applicator vaginally daily at bedtime. - calcium carbonate (CALCIUM 500 ORAL) Take by mouth every other day. - BIOTIN ORAL Take 1 capsule by mouth once daily. - vitamin B complex (B COMPLEX VITAMINS ORAL) Take 1 tablet by mouth once daily. - ergocalciferol, vitamin D2, (VITAMIN D2 ORAL) Take 1 tablet by mouth once daily. - ferrous sulfate 325 mg (65 mg iron) tablet Take 325 mg by mouth every other day. - therapeutic multivitamin w/ iron (THERAGRAN-M) 9 mg iron-400 mcg tablet Take 1 tablet by mouth once daily. - prednisoLONE acetate (PRED FORTE, ECONOPRED PLUS) 1 % ophthalmic suspension Use 1 Drop in the left eye twice daily as needed. - timolol maleate (TIMOPTIC) 0.5 % ophthalmic solution Use 1 Drop in the left eye every morning. - polyvinyl alcohol (LIQUID TEARS OPHTHALMIC) Use in eyes. - rutin/hesp/bioflav/C/h (BIOFLEX ORAL) Take 1 capsule by mouth twice daily. - CPAP BipaP @ 14/9 cm of water with humidification, removable water dispenser (for cleaning) . Mask (small/ per patient preference) , filters, tubing, humidifier and lifetime supplies. (G47.33, Z99.89) Obstructive sleep apnea on CPAP - cyclopentolate (CYCLOGYL) 1 % ophthalmic solution Use 1 Drop in the left eye two times a day. 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] 04/14/2006 LUMBAGO [M54.50] 01/05/2007 PAIN IN JOINT, LOWER LEG [M25.569] 01/22/2007 VERTEBRAL FX NOS-CLOSED [[id number]] 03/24/2007 RESTLESS LEGS SYNDROME [G25.81] BONE AND CARTILAGE DIS NOS [M89.9, M94.9] PAIN IN LIMB [M79.609] 11/22/2008 Deformity of ankle and foot, acquired [M21.969] 11/22/2008 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, M21.6X9] 11/27/2008 Poliomyelitis osteopathy of multiple sites (HCC*11/27/2008 Sleep apnea [G47.30] 04/15/2010 02/01/2019 Vitamin D Deficiency [E55.9] 04/15/2010 Osteopenia [M85.80] 04/15/2010 Incontinence [R32] 07/19/2012 Fracture of L1 vertebra (HCC) [S32.019A] 06/02 (more content not included)... Normal [facility] METABOLIC PANE Kojo 09-09-2024 Albumin [Mass/Vol] 3.6 g/dL Normal 3.4-4.8 [facility] Comment on above: Performed By: #### L AB17, LAB18 #### Rn Cardiovascular Icu: JEAN PIERRE CA ([id number]) [facility] ([facility]) [address] [place] [address] ALP [Catalytic activity/Vol] 59 U/L Normal 40-150 [facility] Comment on above: Performed By: #### L AB17, LAB18 #### Rn Cardiovascular Icu: JEAN PIERRE CA ([id number]) [facility] ([facility]) [address] [place] [address] [place] ALT [Catalytic activity/Vol] 18 U/L Normal <30 [facility] Comment on above: Performed By: #### L AB17, LAB18 #### Rn Cardiovascular Icu: JEAN PIERRE CA ([id number]) [facility] ([facility]) [address] Anion gap [Moles/Vol] 2 mmol/L Low 3-13 [facility] Comment on above: Performed By: #### L AB17, LAB18 #### Rn Cardiovascular Icu: JEAN PIERRE CA ([id number]) [facility] ([facility]) [address] [place] [address] AST [Catalytic activity/Vol] 21 U/L Normal <34 [facility] Comment on above: Performed By: #### L AB17, LAB18 #### Rn Cardiovascular Icu: JEAN PIERRE CA ([id number]) [facility] ([facility]) [address] [place] [address] Bilirubin [Mass/Vol] 0.5 mg/dL Normal <1.2 [facility] Comment on above: Performed By: #### L AB17, LAB18 #### Rn Cardiovascular Icu: JEAN PIERRE CA ([id number]) [facility] ([facility]) [address] [place] [address] Calcium [Mass/Vol] 9.8 mg/dL Normal 8.8-10.0 [facility] Comment on above: Performed By: #### L AB17, LAB18 #### Rn Cardiovascular Icu: JEAN PIERRE CA ([id number]) [facility] ([facility]) [address] [place] [address] [place] Chloride [Moles/Vol] 105 mmol/L Normal 98-107 [facility] Comment on above: Performed By: #### L AB17, LAB18 #### Rn Cardiovascular Icu: JEAN PIERRE CA ([id number]) [facility] ([facility]) [address] [place] [address] [place] CO2 [Moles/Vol] 31 mmol/L Normal 23-31 [facility] Comment on above: Performed By: #### L AB17, LAB18 #### Rn Cardiovascular Icu: JEAN PIERRE CA ([id number]) [facility] ([facility]) [address] [place] [address] [place] Creatinine [Mass/Vol] 0.56 mg/dL Low 0.57-1.11 [facility] Comment on above: Performed By: #### L 17, LAB18 #### Rn Cardiovascular Icu: JEAN PIERRE CA ([id number]) [facility] ([facility]) [address] [place] [address] [place] GLOMERULAR FILTRATION RATE ML/MIN/1.73 SQ M.PREDICTED 89.0 mL/min/1.73m*2 Normal >60.0 [facility] Comment on above: Result Comment: Calc ulation based on the Chronic Kidney Disease Epidemiology Collaboration (CKD-EPI) equation refit without adjustment for race Performed By: #### Safia ORTIZ, LAB18 #### Rn Cardiovascular Icu: JEAN PIERRE CA ([id number]) [facility] ([facility]) [address] [place] [address] [place] Glucose [Mass/Vol] 91 mg/dL Normal 82-115 [facility] Comment on above: Performed By: #### L AB17, LAB18 #### Rn Cardiovascular Icu: JEAN PIERRE CA ([id number]) [facility] ([facility]) [address] [place] [address] [place] Potassium [Moles/Vol] 4.1 mmol/L Normal 3.5-5.1 [facility] Comment on above: Result Comment: [facility] potassium values may be up to 0.5 mmol/L lower than serum values. Performed By: #### L AB17, LAB18 #### Rn Cardiovascular Icu: JEAN PIERRE CA ([id number]) [facility] ([facility]) [address] Protein [Mass/Vol] 6.7 g/dL Normal 6.4-8.3 [facility] Comment on above: Performed By: #### L AB17, LAB18 #### Rn Cardiovascular Icu: JEAN PIERRE CA ([id number]) [facility] ([facility]) [address] [place] [address] Sodium [Moles/Vol] 138 mmol/L Normal 136-145 [facility] Comment on above: Performed By: #### L AB17, LAB18 #### Rn Cardiovascular Icu: JEAN PIERRE CA ([id number]) [facility] ([facility]) [address] [place] [address] Urea nitrogen [Mass/Vol] 20 mg/dL Normal 9-23 [facility] Comment on above: Performed By: #### Safia AB17, LAB18 #### Rn Cardiovascular Icu: JEAN PIERRE CA ([id number]) [facility] ([facility]) [address] [place] [address] Comprehensive metabolic 1998 panelon 09-09-2024 Albumin [Mass/Vol] 3.6 g/dL 3.4 - 4.8 g/dL [facility] ALP [Catalytic activity/Vol] 59 U/L 40 - 150 U/L [facility] ALT [Catalytic activity/Vol] 18 U/L NINF - 30 U/L [facility] Anion gap [Moles/Vol] 2 mmol/L Low 3 - 13 mmol/L [facility] AST [Catalytic activity/Vol] 21 U/L NINF - 34 U/L [facility] Bilirubin [Mass/Vol] 0.5 mg/dL NINF - 1.2 mg/dL [facility] Calcium [Mass/Vol] 9.8 mg/dL 8.8 - 10. 0 mg/dL [facility] Chloride [Moles/Vol] 105 mmol/L 98 - 10 7 mmol/L [facility] CO2 [Moles/Vol] 31 mmol/L 23 - 31 mmol/L [facility] Creatinine [Mass/Vol] 0.56 mg/dL Low 0.57 - 1.11 mg/dL [facility] GFR/1.73 sq M.predicted (S/P/Bld) [Vol rate/Area] 89 mL/min - PINF [facility] Comment on above: Calculation based on the Chronic Kidney Disease Epidemiology Collaboration (CKD-EPI) equation refit without adjustment for race Glucose [Mass/Vol] 91 mg/dL 82 - 115 mg/dL [facility] Potassium [Moles/Vol] 4.1 mmol/L 3.5 - 5.1 mmol/L [facility] Comment on above: Plasma potassium caitlin ues may be up to 0.5 mmol/L lower than serum values. Protein [Mass/Vol] 6.7 g/dL 6.4 - 8.3 g/dL [facility] Sodium [Moles/Vol] 138 mmol/L 136 - 145 mmol/L [facility] Urea nitrogen [Mass/Vol] 20 mg/dL 9 - 23 mg/d L [facility] HEMOGLOBIN A1Con 09-09-2024 Glucose [Mass/Vol] 82 mg/dL Normal [facility] Comment on above: Result Comment: JOHN PAUL Luo COMMENTS: HbA1c values of 5.7-6.4 percent indicate an increased risk for developing diabetes mellitus. HbA1c values greater than or equal to 6.5 percent are diagnostic of diabetes mellitus. For diagnosis of diabetes in individuals without unequivocal hyperglycemia, results should be confirmed by repeat testing. Performed By: #### L AB90 #### Rn Cardiovascular Icu: JEAN PIERRE CA ([id number]) [facility] [employer] ([facility]) [address] [place] [address] HEMOGLOBIN A1C 4.5 %HbA1C Normal <5.7 [facility] Comment on above: Result Comment: Norm al less than 5.7% Prediabetes 5.7% to 6.4% Diabetes 6.5% or higher --HgbA1C levels may not be accurate in patients who have renal disease, received recent blood transfusions, are anemic, or who have dyshemoglobinemia. Performed By: #### L AB90 #### Rn Cardiovascular Icu: JEAN PIERRE CA ([id number]) [facility] [employer] ([place]) [address] [place] [address] Hemoglobin A1con 09-09-2024 Average glucose Estimated from glycated hemoglobin (Bld) [Mass/Vol] 82 mg/dL [facility] HbA1c (Bld) [Mass fraction] 4.5 % [facility] Comment on above: Normal less than 5.7 % Prediabetes 5.7% to 6.4% Diabetes 6.5% or higher --HgbA1C levels may not be accurate in patients who have renal disease, received recent blood transfusions, are anemic, or who have dyshemoglobinemia. HbA1c values of 5.7-6.4 percent indicate an increased risk for developing diabetes mellitus. HbA1c values greater than or equal to 6.5 percent are diagnostic of diabetes mellitus. For diagnosis of diabetes in individuals without unequivocal hyperglycemia, results should be confirmed by repeat testing. [facility] LIPID PANELon 09-09-2024 Cholesterol [Mass/Vol] 170 mg/dL Normal <200 [facility] Comment on above: Performed By: #### L AB17, LAB18 #### Rn Cardiovascular Icu: JEAN PIERRE CA ([id number]) [facility]USCityHourDAPHNIE [facility] ([place]) [address] [place] [address] [place] Cholesterol in HDL [Mass/Vol] 59 mg/dL Low >=60 [facility] Comment on above: Performed By: #### L AB17, LAB18 #### Rn Cardiovascular Icu: JEAN PIERRE CA ([id number]) [facility] [employer] [place] ([facility]) [address] [place] [address] Cholesterol.total/Choles terol in HDL [Mass ratio] 3 {ratio} Normal [facility] Comment on above: Result Comment: Ref Range: < 3 Low Risk for CHD 3-6 Mod Risk for CHD > 6 High Risk for CHD Performed By: #### L AB17, LAB18 #### Rn Cardiovascular Icu: JEAN PIERRE CA ([id number]) [facility]USCityHourDAPHNIE [facility] ([place]) [address] [place] [address] [place] LOW DENSITY LIPOPROTEIN 95 mg/dL Normal 0-<100 [facility] Comment on above: Performed By: #### L AB17, LAB18 #### Rn Cardiovascular Icu: JEAN PIERRE CA ([id number]) [facility] [place] ([place]) [address] [place] [address] [place] NON-HDL CHOLESTEROL, CALCULATED 111 Normal <130 [facility] Comment on above: Performed By: #### L AB17, LAB18 #### Rn Cardiovascular Icu: JEAN PIERRE CA ([id number]) [facility] ([place]) [address] [place] [address] [place] Triglyceride [Mass/Vol] 80 mg/dL Normal <150 [facility] Comment on above: Performed By: #### L AB17, LAB18 #### Rn Cardiovascular Icu: JEAN PIERRE CA ([id number]) [facility] ([facility]) [address] [place] [address] VERY LOW DENSITY LIPOPROTEIN, CALCULATED 16 mg/dL Normal <=30 [facility] Comment on above: Performed By: #### L AB17, LAB18 #### Rn Cardiovascular Icu: JEAN PIERRE CA ([id number]) [facility] ([facility]) [address] [place] [address] Lipid 1996 panelon 5 Cholesterol [Mass/Vol] 170 mg/dL NINF - 200 mg/dL [facility] Cholesterol in HDL [Mass/Vol] 59 mg/dL Low 60 - PINF mg/dL [facility] Cholesterol in LDL [Mass/Vol] 95 mg/dL 0 - <100 [facility] Cholesterol.total/Choles terol in HDL [Mass ratio] 3 {ratio} [facility] Comment on above: Ref Range: < 3 Low Risk for CHD 3-6 Mod Risk for CHD > 6 High Risk for CHD NON-HDL CHOLESTEROL, CALCULATED 111 NINF - 130 [facility] Triglyceride [Mass/Vol] 80 mg/dL NINF - 150 mg/dL [facility] VERY LOW DENSITY LIPOPROTEIN, CALCULATED 16 mg/dL NINF - 30 mg/dL [facility] No Panel Informationon 09-09 Interpretation and review of laboratory results Abnormal [facility] CNPNon 09-02-2024 [facility] TENA CANNON ([id number]) 1940 F Date Time Provider Department 09/02/24 SAHRA GUY During your visit today, we recorded the following information about you: Tete Melchor 09/02/2024 11:14 AM Signed Tena is a patient of Sahra Guy MD today LOBO Garcia called from the [facility] and stated the patient wants to find out her lab test results. Per Radha, the patient administers her own medications so it is fine to speak with the patient, please call her today. Patient has been identified by name and birthdate. Duration of symptoms: N/A Person calling: self Call patient at: on cell [phone] (home) [phone] (cell) Was an appointment scheduled: No Closing statement: Results or non-symptom based questions: Thank you for calling [facility], your call will be returned within the next business day. Malika Valdez LPN 09/02/2024 12:15 PM Signed See previous encounter Allergies As of Date: 09/02/2024 Noted Allergy Reaction KEFLEX (CEPHALEXIN) 05/12/2005 6 - Diarrhea 8 - GI Upset Comments: extreme diarrhea VIOXX (ROFECOXIB) 05/12/2005 5 - Intolerance Comments: Makes capillaryblood vessels break NOVOCAIN (PROCAINE HCL) 01/13/2024 5 - Intolerance Comments: headaches OMEGA-3 FISH OIL (OMEGA-3 FATTY A*05/05/2007 5 - Intolerance Comments: bleeding in eye ADVIL (IBUPROFEN) 05/28/2005 5 - Intolerance Comments: Makes capillary blood vessels bread ASA (SALICYLATES) 05/28/2005 5 - Intolerance Comments: Makes capillary blood vessels break Date Reviewed: 08/23/2024 Reviewed by: Adonay Marquez LPN - Fully Assessed Reason for Visit: Results [95] Cmt: Labs Prescriptions as of 09/02/2024 - metFORMIN (GLUCOPHAGE) 500 mg tablet Take 1 tablet by mouth daily with breakfast. - oxybutynin ER (DITROPAN XL) 10 mg 24 hr tablet Take 1 tablet by mouth once daily. - esomeprazole (NEXIUM) 40 mg capsule TAKE 1 CAPSULE DAILY BEFOREBREAKFAST. 1/2 HOUR BEFORE A MEAL - esomeprazole (NEXIUM) 40 mg capsule TAKE 1 CAPSULE DAILY BEFOREBREAKFAST. 1/2 HOUR BEFORE A MEAL - metroNIDAZOLE (METROGEL) 0.75 % Topical Gel APPLY 1 APPLICATION TO AFFECTED AREA ONCE DAILY TOFACE - brimonidine (ALPHAGAN P) 0.1 % drop - loratadine (CLARITIN ORAL) Take by mouth. - nystatin-triamcinolone (MYCOLOG) ointment Apply sparingly to perineum twice daily for irritation/infection. - atropine 1 % ophthalmic solution - sulfacetamide (BLEPH-10) 10 % ophthalmic solution Use 1 Drop in both eyes four times daily. INSIDE LOWER EYELID(S) 1-4 TIMES DAILY AND AT BEDTIME - miconazole (MONISTAT 7) 2 % vaginal cream Use 1 Applicator vaginally daily at bedtime. - calcium carbonate (CALCIUM 500 ORAL) Take by mouth every other day. - BIOTIN ORAL Take 1 capsule by mouth once daily. - vitamin B complex (B COMPLEX VITAMINS ORAL) Take 1 tablet by mouth once daily. - ergocalciferol, vitamin D2, (VITAMIN D2 ORAL) Take 1 tablet by mouth once daily. - ferrous sulfate 325 mg (65 mg iron) tablet Take 325 mg by mouth every other day. - therapeutic multivitamin w/ iron (THERAGRAN-M) 9 mg iron-400 mcg tablet Take 1 tablet by mouth once daily. - prednisoLONE acetate (PRED FORTE, ECONOPRED PLUS) 1 % ophthalmic suspension Use 1 Drop in the left eye twice daily as needed. - timolol maleate (TIMOPTIC) 0.5 % ophthalmic solution Use 1 Drop in the left eye every morning. - polyvinyl alcohol (LIQUID TEARS OPHTHALMIC) Use in eyes. - rutin/hesp/bioflav/C/h [id number] (BIOFLEX ORAL) Take 1 capsule by mouth twice daily. - CPAP BipaP @ 14/9 cm of water with humidification, removable water dispenser (for cleaning) . Mask (small/ per patient preference) , filters, tubing, humidifier and lifetime supplies. (G47.33, Z99.89) Obstructive sleep apnea on CPAP - cyclopentolate (CYCLOGYL) 1 % ophthalmic solution Use 1 Drop in the left eye two times a day. 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 Normal [facility] Agustina 09-01-2024 ANTNOYN Telephone (LINDY) TENA CANNON ([id number]) 1940 F Date Time Provider Department 09/01/24 SAHRA GUY During your visit today, we recorded the following information about you: Sugey Stover 09/01/2024 1:23 PM Signed Rachel with [employer] is calling Sahra Guy MD today to request this month's Office visit Notes. Faxed to Rachel at fax number [phone] Allergies As of Date: 09/01/2024 Noted Allergy Reaction KEFLEX (CEPHALEXIN) 05/12/2005 6 - Diarrhea 8 - GI Upset Comments: extreme diarrhea VIOXX (ROFECOXIB) 05/12/2005 5 - Intolerance Comments: Makes capillaryblood vessels break NOVOCAIN (PROCAINE HCL) 01/13/2024 5 - Intolerance Comments: headaches OMEGA-3 FISH OIL (OMEGA-3 FATTY A*05/05/2007 5 - Intolerance Comments: bleeding in eye ADVIL (IBUPROFEN) 05/28/2005 5 - Intolerance Comments: Makes capillary blood vessels bread ASA (SALICYLATES) 05/28/2005 5 - Intolerance Comments: Makes capillary blood vessels break Date Reviewed: 08/23/2024 Reviewed by: Adonay Marquez LPN - Fully Assessed Reason for Visit: Office Notes [Other] Prescriptions as of 09/01/2024 - metFORMIN (GLUCOPHAGE) 500 mg tablet Take 1 tablet by mouth daily with breakfast. - oxybutynin ER (DITROPAN XL) 10 mg 24 hr tablet Take 1 tablet by mouth once daily. - esomeprazole (NEXIUM) 40 mg capsule TAKE 1 CAPSULE DAILY BEFOREBREAKFAST. 1/2 HOUR BEFORE A MEAL - esomeprazole (NEXIUM) 40 mg capsule TAKE 1 CAPSULE DAILY BEFOREBREAKFAST. 1/2 HOUR BEFORE A MEAL - metroNIDAZOLE (METROGEL) 0.75 % Topical Gel APPLY 1 APPLICATION TO AFFECTED AREA ONCE DAILY TOFACE - brimonidine (ALPHAGAN P) 0.1 % drop - loratadine (CLARITIN ORAL) Take by mouth. - nystatin-triamcinolone (MYCOLOG) ointment Apply sparingly to perineum twice daily for irritation/infection. - atropine 1 % ophthalmic solution - sulfacetamide (BLEPH-10) 10 % ophthalmic solution Use 1 Drop in both eyes four times daily. INSIDE LOWER EYELID(S) 1-4 TIMES DAILY AND AT BEDTIME - miconazole (MONISTAT 7) 2 % vaginal cream Use 1 Applicator vaginally daily at bedtime. - calcium carbonate (CALCIUM 500 ORAL) Take by mouth every other day. - BIOTIN ORAL Take 1 capsule by mouth once daily. - vitamin B complex (B COMPLEX VITAMINS ORAL) Take 1 tablet by mouth once daily. - ergocalciferol, vitamin D2, (VITAMIN D2 ORAL) Take 1 tablet by mouth once daily. - ferrous sulfate 325 mg (65 mg iron) tablet Take 325 mg by mouth every other day. - therapeutic multivitamin w/ iron (THERAGRAN-M) 9 mg iron-400 mcg tablet Take 1 tablet by mouth once daily. - prednisoLONE acetate (PRED FORTE, ECONOPRED PLUS) 1 % ophthalmic suspension Use 1 Drop in the left eye twice daily as needed. - timolol maleate (TIMOPTIC) 0.5 % ophthalmic solution Use 1 Drop in the left eye every morning. - polyvinyl alcohol (LIQUID TEARS OPHTHALMIC) Use in eyes. - rutin/hesp/bioflav/C/h [id number] (BIOFLEX ORAL) Take 1 capsule by mouth twice daily. - CPAP BipaP @ 14/9 cm of water with humidification, removable water dispenser (for cleaning) . Mask (small/ per patient preference) , filters, tubing, humidifier and lifetime supplies. (G47.33, Z99.89) Obstructive sleep apnea on CPAP - cyclopentolate (CYCLOGYL) 1 % ophthalmic solution Use 1 Drop in the left eye two times a day. 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019A] 06/02/2014 02/01/2019 Lumbar radiculopathy [M54.16] 06/03/2014 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 Obstructive sleep apnea on CPAP [G47.33] 07/14/2017 Rosacea [L71.9] 10/13/2017 Obesity, Class III, BMI 40-49.9 (morbid obesity*12/02/2017 Generalized weakness [R53.1] 07/29/2018 Shingles rash [B02.9] 07/29/2018 02/01/2019 Herpes zoster lesion [B02.8] 07/29/2018 02/01/2019 Epigastric pain [R10.13] 08/25/2018 11/24/2018 Encounter Status:Closed by SUGEY STOVER on 09/01/24 [facility] TE[facility] CANNON ([id number]) 1940 F Date Time Provider Department 09/01/24 SAHRA GUY During your visit today, we recorded the following information about you: Sahra Guy MD 09/01/2024 3:16 PM Signed Lipid shows midley elevated LDL bad cholesterol , the hdl cholesterol is quite low. That's a change from previous. Not sure this is a correct value. Don't think we'd do anything different, but could repeat the lab at some point. Blood count OK MD Aguilar Mitchell Lisa, LPN 09/02/2024 12:18 PM Signed LM for patient to call office. She had assisted living nurse call office in separate encounter Sugey Stover 09/02/2024 2:09 PM Signed Patient calling requesting a call back from a nurse. [phone] Adonay Marquez LPN 09/02/2024 4:02 PM Signed Called and informed pt of pcp interpretation and recommendation. Pt would like to schedule a follow up and have a repeat lab draw in the office. Please assist pt with scheduling Sahra Guy MD 09/05/2024 10:04 AM Signed We can see her any time and do the repeat lab . Sahra Guy MD [place]ona [place] 09/06/2024 11:37 AM Signed Called and scheduled pt f/u. She wanted PCP to have results prior to appt so she is getting lab drawn in [place]. Allergies As of Date: 09/01/2024 Noted Allergy Reaction KEFLEX (CEPHALEXIN) 05/12/2005 6 - Diarrhea 8 - GI Upset Comments: extreme diarrhea VIOXX (ROFECOXIB) 05/12/2005 5 - Intolerance Comments: Makes capillaryblood vessels break NOVOCAIN (PROCAINE HCL) 01/13/2024 5 - Intolerance Comments: headaches OMEGA-3 FISH OIL (OMEGA-3 FATTY A*05/05/2007 5 - Intolerance Comments: bleeding in eye ADVIL (IBUPROFEN) 05/28/2005 5 - Intolerance Comments: Makes capillary blood vessels bread ASA (SALICYLATES) 05/28/2005 5 - Intolerance Comments: Makes capillary blood vessels break Date Reviewed: 08/23/2024 Reviewed by: Adonay Marquez LPN - Fully Assessed Reason for Visit: Returning Patient's Call [[id number]] Prescriptions as of 09/06/2024 - metFORMIN (GLUCOPHAGE) 500 mg tablet Take 1 tablet by mouth daily with breakfast. - oxybutynin ER (DITROPAN XL) 10 mg 24 hr tablet Take 1 tablet by mouth once daily. - esomeprazole (NEXIUM) 40 mg capsule TAKE 1 CAPSULE DAILY BEFOREBREAKFAST. 1/2 HOUR BEFORE A MEAL - esomeprazole (NEXIUM) 40 mg capsule TAKE 1 CAPSULE DAILY BEFOREBREAKFAST. 1/2 HOUR BEFORE A MEAL - metroNIDAZOLE (METROGEL) 0.75 % Topical Gel APPLY 1 APPLICATION TO AFFECTED AREA ONCE DAILY TOFACE - brimonidine (ALPHAGAN P) 0.1 % drop - loratadine (CLARITIN ORAL) Take by mouth. - nystatin-triamcinolone (MYCOLOG) ointment Apply sparingly to perineum twice daily for irritation/infection. - atropine 1 % ophthalmic solution - sulfacetamide (BLEPH-10) 10 % ophthalmic solution Use 1 Drop in both eyes four times daily. INSIDE LOWER EYELID(S) 1-4 TIMES DAILY AND AT BEDTIME - miconazole (MONISTAT 7) 2 % vaginal cream Use 1 Applicator vaginally daily at bedtime. - calcium carbonate (CALCIUM 500 ORAL) Take by mouth every other day. - BIOTIN ORAL Take 1 capsule by mouth once daily. - vitamin B complex (B COMPLEX VITAMINS ORAL) Take 1 tablet by mouth once daily. - ergocalciferol, vitamin D2, (VITAMIN D2 ORAL) Take 1 tablet by mouth once daily. - ferrous sulfate 325 mg (65 mg iron) tablet Take 325 mg by mouth every other day. - therapeutic multivitamin w/ iron (THERAGRAN-M) 9 mg iron-400 mcg tablet Take 1 tablet by mouth once daily. - prednisoLONE acetate (PRED FORTE, ECONOPRED PLUS) 1 % ophthalmic suspension Use 1 Drop in the left eye twice daily as needed. - timolol maleate (TIMOPTIC) 0.5 % ophthalmic solution Use 1 Drop in the left eye every morning. - polyvinyl alcohol (LIQUID TEARS OPHTHALMIC) Use in eyes. - rutin/hesp/bioflav/C/h maopa069 (BIOFLEX ORAL) Take 1 capsule by mouth twice daily. - CPAP BipaP @ 14/9 cm of water with humidification, removable water dispenser (for cleaning) . Mask (small/ per patient preference) , filters, tubing, humidifier and lifetime supplies. (G47.33, Z99.89) Obstructive sleep apnea on CPAP - cyclopentolate (CYCLOGYL) 1 % ophthalmic solution Use 1 Drop in the left eye two times a day. 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 [facility] (FPWADS) TENA CANNON ([id number]) 1940 F Date Time Provider Department 08/31/24 SAHRA GUY [employer] During your visit today, we recorded the following information about you: Tete Melchor 08/31/2024 2:11 PM Signed Tena is calling Sahra Guy MD today to confirm that her las test results from outside facility were received. She would like to speak with the doctor to discuss the results. Patient has been identified by name and birthdate. Duration of symptoms: N/A Person calling: self Call patient at: at home [phone] (home) [phone] (cell) Was an appointment scheduled: No Closing statement: Results or non-symptom based questions: Thank you for calling [facility], your call will be returned within the next business day. Sahra James MD 09/01/2024 12:06 PM Signed No results in scanned docs, do we have them? Adonay Marquez LPN 09/01/2024 3:10 PM Signed Results entered into pt chart. Please advise. Allergies As of Date: 08/31/2024 Noted Allergy Reaction KEFLEX (CEPHALEXIN) 05/12/2005 6 - Diarrhea 8 - GI Upset Comments: extreme diarrhea VIOXX (ROFECOXIB) 05/12/2005 5 - Intolerance Comments: Makes capillaryblood vessels break NOVOCAIN (PROCAINE HCL) 01/13/2024 5 - Intolerance Comments: headaches OMEGA-3 FISH OIL (OMEGA-3 FATTY A*05/05/2007 5 - Intolerance Comments: bleeding in eye ADVIL (IBUPROFEN) 05/28/2005 5 - Intolerance Comments: Makes capillary blood vessels bread ASA (SALICYLATES) 05/28/2005 5 - Intolerance Comments: Makes capillary blood vessels break Date Reviewed: 08/23/2024 Reviewed by: Adonay Marquez LPN - Fully Assessed Reason for Visit: Results [95] Cmt: Lab tests Order(s):LIPID PANEL BASIC [SQLIPB] Order #: [id number] HBA1C (OUTSIDE) [[id number]] Order #: [id number] COMPLETE BLOOD COUNT AND DIFFERENTIAL [SQCBCDIF] Order #: [id number] Prescriptions as of 11/12/2024 - metFORMIN (GLUCOPHAGE) 500 mg tablet Take 1 tablet by mouth daily with breakfast. - oxybutynin ER (DITROPAN XL) 10 mg 24 hr tablet Take 1 tablet by mouth once daily. - esomeprazole (NEXIUM) 40 mg capsule TAKE 1 CAPSULE DAILY BEFOREBREAKFAST. 1/2 HOUR BEFORE A MEAL - esomeprazole (NEXIUM) 40 mg capsule TAKE 1 CAPSULE DAILY BEFOREBREAKFAST. 1/2 HOUR BEFORE A MEAL - metroNIDAZOLE (METROGEL) 0.75 % Topical Gel APPLY 1 APPLICATION TO AFFECTED AREA ONCE DAILY TOFACE - brimonidine (ALPHAGAN P) 0.1 % drop - loratadine (CLARITIN ORAL) Take by mouth. - nystatin-triamcinolone (MYCOLOG) ointment Apply sparingly to perineum twice daily for irritation/infection. - atropine 1 % ophthalmic solution - sulfacetamide (BLEPH-10) 10 % ophthalmic solution Use 1 Drop in both eyes four times daily. INSIDE LOWER EYELID(S) 1-4 TIMES DAILY AND AT BEDTIME - miconazole (MONISTAT 7) 2 % vaginal cream Use 1 Applicator vaginally daily at bedtime. - calcium carbonate (CALCIUM 500 ORAL) Take by mouth every other day. - BIOTIN ORAL Take 1 capsule by mouth once daily. - vitamin B complex (B COMPLEX VITAMINS ORAL) Take 1 tablet by mouth once daily. - ergocalciferol, vitamin D2, (VITAMIN D2 ORAL) Take 1 tablet by mouth once daily. - ferrous sulfate 325 mg (65 mg iron) tablet Take 325 mg by mouth every other day. - therapeutic multivitamin w/ iron (THERAGRAN-M) 9 mg iron-400 mcg tablet Take 1 tablet by mouth once daily. - prednisoLONE acetate (PRED FORTE, ECONOPRED PLUS) 1 % ophthalmic suspension Use 1 Drop in the left eye twice daily as needed. - timolol maleate (TIMOPTIC) 0.5 % ophthalmic solution Use 1 Drop in the left eye every morning. - polyvinyl alcohol (LIQUID TEARS OPHTHALMIC) Use in eyes. - rutin/hesp/bioflav/C/h (BIOFLEX ORAL) Take 1 capsule by mouth twice daily. - CPAP BipaP @ 14/9 cm of water with humidification, removable water dispenser (for cleaning) . Mask (small/ per patient preference) , filters, tubing, humidifier and lifetime supplies. (G47.33, Z99.89) Obstructive sleep apnea on CPAP - cyclopentolate (CYCLOGYL) 1 % ophthalmic solution Use 1 Drop in the left eye two times a day. 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 Normal [facility] CBC W Auto Differential pane l (Bld)on 08-26-2024 Basophils/100 WBC (Bld) 0.6 % C [facility] CD59 deficient monocytes/100 cells (Bld) 14.2 Abnormal [facility] EOSINOPHILS,ABSOLUTE 0.1 [facility] Eosinophils/100 WBC (Bld) 2.6 % [facility] Erythrocyte distribution width (RBC) [Ratio] 12.9 % 11.5 - 14.5 % [facility] Hematocrit (Bld) [Volume fraction] 35.8 % Abnormal 37 - 47 % [facility] Hemoglobin (Bld) [Mass/Vol] 12.3 g/dL [facility] Lymphocytes (Bld) [#/Vol] 1.6 10*3/uL [facility] Lymphocytes/100 WBC (Bld) 33 % [facility] MCH (RBC) [Entitic mass] 32.6 pG 27 - 34 pG [facility] MCHC 34.4 % 32 - 36 % [facility] MCV (RBC) [Entitic vol] 94.8 fL 80 - 100 fL [facility] Monocytes (Bld) [#/Vol] 0.7 10*3/uL [facility] NEUTROPHILS ABSOLUTE 2.5 [facility] Neutrophils/100 WBC (Bld) 49.6 % [facility] Nucleated RBC (Bld) [#/Vol] 0.2 10*3/uL [facility] Platelet mean volume (Bld) [Entitic vol] 10 % 7.3 - 11.1 % [facility] Platelets (Bld) [#/Vol] 164 10*3/uL [facility] RBC (Bld) [#/Vol] 3.77 10*6/uL Abnormal [facility] WBC (Bld) [#/Vol] 5 10*3/uL 4.0 - 11.0 K/uL [facility] HBA1C (OUTSIDE)on 08-26-2024 HbA1c (Bld) [Mass fraction] 4.7 % [facility] Lipid 1996 panelon Cholesterol [Mass/Vol] 162 mg/dL - 199 mg/dL [facility] Cholesterol in HDL [Mass/Vol] 7 mg/dL Critically low [facility] Cholesterol in LDL [Mass/Vol] 127 mg/dL [facility] LDL/HDL RATIO 18.1 [facility] Triglyceride [Mass/Vol] 140 mg/dL [facility] VLDL Cholesterol [address] [facility] No Panel Informationon 08-26 Interpretation and review of laboratory results Abnormal [facility] CNPNon 08-24-2024 CNPN Telephone (FPWAANA M) TENA CANNON ([id number]) 1940 F Date Time Provider Department 08/24/24 SAHRA GUY During your visit today, we recorded the following information about you: Adonay Marquez LPN 08/24/2024 10:26 AM Signed [facility] Placed in provider's inbox for review. Route to [place] fax Allergies As of Date: 08/24/2024 Noted Allergy Reaction KEFLEX (CEPHALEXIN) 05/12/2005 6 - Diarrhea 8 - GI Upset Comments: extreme diarrhea VIOXX (ROFECOXIB) 05/12/2005 5 - Intolerance Comments: Makes capillaryblood vessels break NOVOCAIN (PROCAINE HCL) 01/13/2024 5 - Intolerance Comments: headaches OMEGA-3 FISH OIL (OMEGA-3 FATTY A*05/05/2007 5 - Intolerance Comments: bleeding in eye ADVIL (IBUPROFEN) 05/28/2005 5 - Intolerance Comments: Makes capillary blood vessels bread ASA (SALICYLATES) 05/28/2005 5 - Intolerance Comments: Makes capillary blood vessels break Date Reviewed: 08/23/2024 Reviewed by: Adonay Marquez LPN - Fully Assessed Reason for Visit: Orders [681] Cmt[facility] Prescriptions as of 08/24/2024 - metFORMIN (GLUCOPHAGE) 500 mg tablet Take 1 tablet by mouth daily with breakfast. - oxybutynin ER (DITROPAN XL) 10 mg 24 hr tablet Take 1 tablet by mouth once daily. - esomeprazole (NEXIUM) 40 mg capsule TAKE 1 CAPSULE DAILY BEFOREBREAKFAST. 1/2 HOUR BEFORE A MEAL - esomeprazole (NEXIUM) 40 mg capsule TAKE 1 CAPSULE DAILY BEFOREBREAKFAST. 1/2 HOUR BEFORE A MEAL - metroNIDAZOLE (METROGEL) 0.75 % Topical Gel APPLY 1 APPLICATION TO AFFECTED AREA ONCE DAILY TOFACE - brimonidine (ALPHAGAN P) 0.1 % drop - loratadine (CLARITIN ORAL) Take by mouth. - nystatin-triamcinolone (MYCOLOG) ointment Apply sparingly to perineum twice daily for irritation/infection. - atropine 1 % ophthalmic solution - sulfacetamide (BLEPH-10) 10 % ophthalmic solution Use 1 Drop in both eyes four times daily. INSIDE LOWER EYELID(S) 1-4 TIMES DAILY AND AT BEDTIME - miconazole (MONISTAT 7) 2 % vaginal cream Use 1 Applicator vaginally daily at bedtime. - calcium carbonate (CALCIUM 500 ORAL) Take by mouth every other day. - BIOTIN ORAL Take 1 capsule by mouth once daily. - vitamin B complex (B COMPLEX VITAMINS ORAL) Take 1 tablet by mouth once daily. - ergocalciferol, vitamin D2, (VITAMIN D2 ORAL) Take 1 tablet by mouth once daily. - ferrous sulfate 325 mg (65 mg iron) tablet Take 325 mg by mouth every other day. - therapeutic multivitamin w/ iron (THERAGRAN-M) 9 mg iron-400 mcg tablet Take 1 tablet by mouth once daily. - prednisoLONE acetate (PRED FORTE, ECONOPRED PLUS) 1 % ophthalmic suspension Use 1 Drop in the left eye twice daily as needed. - timolol maleate (TIMOPTIC) 0.5 % ophthalmic solution Use 1 Drop in the left eye every morning. - polyvinyl alcohol (LIQUID TEARS OPHTHALMIC) Use in eyes. - rutin/hesp/bioflav/C/h [id number] (BIOFLEX ORAL) Take 1 capsule by mouth twice daily. - CPAP BipaP @ 14/9 cm of water with humidification, removable water dispenser (for cleaning) . Mask (small/ per patient preference) , filters, tubing, humidifier and lifetime supplies. (G47.33, Z99.89) Obstructive sleep apnea on CPAP - cyclopentolate (CYCLOGYL) 1 % ophthalmic solution Use 1 Drop in the left eye two times a day. 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] 04/14/2006 LUMBAGO [M54.50] 01/05/2007 PAIN IN JOINT, LOWER LEG [M25.569] 01/22/2007 VERTEBRAL FX NOS-CLOSED [[id number]] 03/24/2007 RESTLESS LEGS SYNDROME [G25.81] BONE AND CARTILAGE DIS NOS [M89.9, M94.9] PAIN IN LIMB [M79.609] 11/22/2008 Deformity of ankle and foot, acquired [M21.969] 11/22/2008 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, M21.6X9] 11/27/2008 Poliomyelitis osteopathy of multiple sites (HCC*11/27/2008 Sleep apnea [G47.30] 04/15/2010 02/01/2019 Vitamin D Deficiency [E55.9] 04/15/2010 Osteopenia [M85.80] 04/15/2010 Incontinence [R32] 07/19/2012 Fracture of L1 vertebra (HCC) [S32.019A] 06/02/2014 02/01/2019 Lumbar radiculopathy [M54.16] 06/03/2014 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 Obstructive sleep apnea on CPAP [G47.33] 07/14/2017 Rosacea [L71.9] 10/13/2017 Obesity, Class III, BMI 40-49.9 (morbid obesity*12/02/2017 Generalized weakness [R53.1] 07/29/2018 Shingles rash [B02.9] 07/29/2018 02/01/2019 Herpes zoster lesion [B02.8] 07/29/2018 02/01/2019 Epigastric pain [R10.13] 08/25/2018 11/24/2018 Encounter Status:Closed by ADONAY MARQUEZ on 08/24/24 [facility] CNOVon 08-23-2024 CNOV Office Visit (FPWADS ) TENA CANNON ([id number]) 1940 F Date Time Provider Department 08/23/24 10:00 AM SAHRA GUY During your visit today, we recorded the following information about you: Pulse Blood pressure Height 60/minute 116/74 1.422 m Sahra Guy MD 08/23/2024 4:55 PM Signed Health Risk Assessment Do you exercise for about 20 minutes 3 or more days a week? denies regular aerobic exercise. How often do you eat food that is healthy (such as fresh fruits, fish and vegetables) instead of unhealthy food (such as fried foods, sweets and junk food)? most of the time. List of current specialists seen: Optometry Does patient see eye doctor routinely? Yes Do you have an advance directive, such as health care power of chief radiologic technologist or living will? yes Would you like more information? No Depression screen Pt in the past two weeks denies having felt down, depressed, hopeless, or with little interest or pleasure in doing things. Functional Ability/Safety Screen 1. Have you fallen 2 or more times in the past year? Yes Are you afraid of falling? Yes 2. Do you need help with the phone, transportation, shopping, preparing meals, housework, laundry, medications or managing money? Pt lives in assisted living 3. Does your home have rugs in the hallway, lack of grab bars in the bathroom, lack of handrails on the stairs or have poor lighting? No Hearing Evaluation: wears hearing aids Sahra Guy MD Any memory concerns? Yes Sahra Guy MD 08/23/2024 4:55 PM Signed Tena Cannon is a 83 year old female here for a Medicare wellness visit. Back Pain - Recently strained her back, left sided - Gabapentin was beneficial - Symptoms have nearly resolved, still feels a twinge Weakness - Is still having difficulty getting up from the toilet - Has needed assistance from the aides - Was told that there are lift chairs for toilet, is currently looking into it. Current Providers Specialists: I have reviewed specialist-related care of the patient in the medical record. Medical/Family history review Reviewed and updated problem list, medical/surgical/famil y/social history, medications, and allergies. Opioid use review Opioid Medications (last 90 days) No data to display Depression screening 08/23/24 - 05/30/2021 09/25/2022 09/25/2022 12/10/2023 Depression Screening PHQ-2 Score 0 0 0 2 RIGO-2 Total Score 2 Depression screening tool completed and reviewed. Based on score and interview, patient is not at risk for depression. Screening tool discussed with patient, and I recommended no further intervention at this time. Cognitive screening Mini Cog Score: 3 Cognitive screening reviewed and No further action needed (score 3-5). Functional Observation Was the patient's timed Up AND Go test unsteady or >= 12 seconds? No Advance Care Planning Surrogate decision maker and/or advance care plan documented Measurements BP 156/83 Pulse 60 Ht 142.2 cm (4' 8) SpO2 95% BMI 44.26 kg/m? Repeat BP: 116/70 General: Alert, well developed, well nourished, no distress, pleasant and cooperative. HEENT: No adenopathy or thyromegaly Heart: Regular rate and rhythm. Normal S1 and S2. No murmurs, rubs, or gallops. Lungs: Clear to auscultation bilaterally. No respiratory distress. No wheezes, rales, or rhonchi. Abdomen: Soft, non-tender, no distention Extremities: motorized wheelchair. Feet/ankles without edema, posterior tibial pulses full and symmetrical Skin: intact. Musculoskeletal:leg weakness, mild pain on palpation L SI area. Assessment/Plan Medicare annual wellness visit, subsequent (Z00.) - Fall avoidance information provided - Personalized prevention plan provided (Z.) Medicare annual wellness visit, subsequent (primary encounter diagnosis) Comment: 83 year old generally healthy female here for medicare visit Plan: As below (E66.01) Obesity, Class III, BMI 40-49.9 (morbid obesity) ([facility]) Comment: Stable. 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 Due for routine labs Plan: metFORMIN (GLUCOPHAGE) 500 mg tablet, COMPREHENSIVE METABOLIC PANEL, HEMOGLOBIN A1C (E55.9) Vitamin D deficiency Comment: Takes vitamin D supplement daily Plan: Continue current regimen (I10) Essential hypertension Comment: BP elevated today in office, improved to normal limits on repeat Plan: Will continue to monitor (M15.0) Primary osteoarthritis involving multiple thuy (more content not included)... Normal [facility]20[facility] TENA CANNON ([id number]) 1940 F Date Time Provider Department 08/22/24 SAHRA GUY During your visit today, we recorded the following information about you: Norma Long 08/22/2024 11:10 AM Signed Tena is calling Sahra Guy MD today is now using [place] with a new insurance company( using the same pharmacy ) but out of any refills Patient asking for this to be addressed tomorrow for medications to be sent mail order Patient has appointment on 08/23/2024 and asking for PCP to fill all RX's that apply Patient has been identified by name and birthdate. Duration of symptoms: N/A Person calling: self Call patient at: at home [phone] (home) [phone] (cell) Was an appointment scheduled: Yes: Date/Time: 08/23/[address] Guy Closing statement: Results or non-symptom based questions: Thank you for calling [facility], your call will be returned within the next business day. Norma Torres [facility] Adoany Marquez LPN 08/22/2024 3:37 PM Signed Noted. Allergies As of Date: 08/22/2024 Noted Allergy Reaction KEFLEX (CEPHALEXIN) 05/12/2005 6 - Diarrhea 8 - GI Upset Comments: extreme diarrhea VIOXX (ROFECOXIB) 05/12/2005 5 - Intolerance Comments: Makes capillaryblood vessels break NOVOCAIN (PROCAINE HCL) 01/13/2024 5 - Intolerance Comments: headaches OMEGA-3 FISH OIL (OMEGA-3 FATTY A*05/05/2007 5 - Intolerance Comments: bleeding in eye ADVIL (IBUPROFEN) 05/28/2005 5 - Intolerance Comments: Makes capillary blood vessels bread ASA (SALICYLATES) 05/28/2005 5 - Intolerance Comments: Makes capillary blood vessels break Date Reviewed: 08/11/2024 Reviewed by: Heidy Valencia LPN - Fully Assessed Reason for Visit: Patient Update [1234] Cmt: At office visit on 08/23/2024 please fill all Rx's that apply per patient [facility] mail order Prescriptions as of 08/22/2024 - gabapentin (NEURONTIN) 100 mg capsule Take 1 capsule by mouth daily at bedtime for 30 days. - esomeprazole (NEXIUM) 40 mg capsule TAKE 1 CAPSULE DAILY BEFOREBREAKFAST. 1/2 HOUR BEFORE A MEAL - oxybutynin ER (DITROPAN XL) 10 mg 24 hr tablet Take 1 tablet by mouth once daily. - metFORMIN (GLUCOPHAGE) 500 mg tablet Take 1 tablet by mouth daily with breakfast. - metroNIDAZOLE (METROGEL) 0.75 % Topical Gel APPLY 1 APPLICATION TO AFFECTED AREA ONCE DAILY TOFACE - brimonidine (ALPHAGAN P) 0.1 % drop - loratadine (CLARITIN ORAL) Take by mouth. - nystatin-triamcinolone (MYCOLOG) ointment Apply sparingly to perineum twice daily for irritation/infection. - atropine 1 % ophthalmic solution - sulfacetamide (BLEPH-10) 10 % ophthalmic solution Use 1 Drop in both eyes four times daily. INSIDE LOWER EYELID(S) 1-4 TIMES DAILY AND AT BEDTIME - miconazole (MONISTAT 7) 2 % vaginal cream Use 1 Applicator vaginally daily at bedtime. - calcium carbonate (CALCIUM 500 ORAL) Take by mouth every other day. - BIOTIN ORAL Take 1 capsule by mouth once daily. - vitamin B complex (B COMPLEX VITAMINS ORAL) Take 1 tablet by mouth once daily. - ergocalciferol, vitamin D2, (VITAMIN D2 ORAL) Take 1 tablet by mouth once daily. - ferrous sulfate 325 mg (65 mg iron) tablet Take 325 mg by mouth every other day. - therapeutic multivitamin w/ iron (THERAGRAN-M) 9 mg iron-400 mcg tablet Take 1 tablet by mouth once daily. - prednisoLONE acetate (PRED FORTE, ECONOPRED PLUS) 1 % ophthalmic suspension Use 1 Drop in the left eye twice daily as needed. - timolol maleate (TIMOPTIC) 0.5 % ophthalmic solution Use 1 Drop in the left eye every morning. - polyvinyl alcohol (LIQUID TEARS OPHTHALMIC) Use in eyes. - rutin/hesp/bioflav/C/h (BIOFLEX ORAL) Take 1 capsule by mouth twice daily. - CPAP BipaP @ 14/9 cm of water with humidification, removable water dispenser (for cleaning) . Mask (small/ per patient preference) , filters, tubing, humidifier and lifetime supplies. (G47.33, Z99.89) Obstructive sleep apnea on CPAP - cyclopentolate (CYCLOGYL) 1 % ophthalmic solution Use 1 Drop in the left eye two times a day. 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 Normal [facility] CNPNon 08-15-2024 ANTONYN Telephone (FPWADS) TENA CANNON ([id number]) 1940 F Date Time Provider Department 08/15/24 [facility] During your visit today, we recorded the following information about you: Sugey Stover 08/15/2024 2:19 PM Signed Rachel with [facility] is calling regarding Home PT and OT. Regulations are that it be from the provider who had a face to face. Stated Leonid Leal would need to certify the care since she had a face to face with her. She also stated it is coming up as Leonid Roach in the system (PICOS would have to be updated). With the different last name a red flag will happen. Please call Rachel at [phone] Leonid Leal APRN.APPLIED STATISTICIAN 08/15/2024 3:01 PM Signed Please clarify what therapy orders are for, I saw her acute back pain, did not address her chronic issues but can send most recent office visit note. If that won't work, needs to see Dr. Guy for follow-up to address chronic issues. Also clarify about provider's name change. Leonid Leal APRN.Adonay Cuevas LPN 08/15/2024 5:10 PM Signed Orders for physical therapy are in correlation to recent visit with Leonid Leal where pt was seen for pulled muscle/sciatic pain. Spoke with Rachel Ramos states the provider who had face to face with pt for the acute reason, has to be the provider who sends the order and agrees to follow the plan of care pertaining to physical therapy. However, Rachel believes because providers name on the orders does not match the name in the PECOS system; Your new name must be changed in the PECOS Administrative Interface to be reflected in Internet-based PECOS. Please contact your Medicare-fee for service contractor to change your name. Copied and pasted from [email or web address] Please advise. Alicia Sultana 08/17/2024 9:25 AM Signed Rachel from [facility] calling back and states that since patient is scheduled with Dr. Guy on 08/23 they will be able to use his name as a certifying provider. [facility] asking for a verbal order from Dr. Guy. Please return call to [phone] Leonid Leal APRN.ANTONY 08/17/2024 10:49 AM Signed Yes, please give verbal order on behalf of Dr. Jess Leal APRN.Malika Tidwell LPN 08/17/2024 10:59 AM Signed Verbal order given for PT and OT. Per home health patient did not know that she had an appointment for the . Call placed to patient and voicemail left stating time and date of appointment. Message left that visit is needed for insurance to authorize therapy Allergies As of Date: 08/15/2024 Noted Allergy Reaction KEFLEX (CEPHALEXIN) 05/12/2005 6 - Diarrhea 8 - GI Upset Comments: extreme diarrhea VIOXX (ROFECOXIB) 05/12/2005 5 - Intolerance Comments: Makes capillaryblood vessels break NOVOCAIN (PROCAINE HCL) 01/13/2024 5 - Intolerance Comments: headaches OMEGA-3 FISH OIL (OMEGA-3 FATTY A*05/05/2007 5 - Intolerance Comments: bleeding in eye ADVIL (IBUPROFEN) 05/28/2005 5 - Intolerance Comments: Makes capillary blood vessels bread ASA (SALICYLATES) 05/28/2005 5 - Intolerance Comments: Makes capillary blood vessels break Date Reviewed: 08/11/2024 Reviewed by: Heidy Valencia LPN - Fully Assessed Reason for Visit: Orders [681] Cmt: PT and OT Prescriptions as of 08/17/2024 - gabapentin (NEURONTIN) 100 mg capsule Take 1 capsule by mouth daily at bedtime for 30 days. - esomeprazole (NEXIUM) 40 mg capsule TAKE 1 CAPSULE DAILY BEFOREBREAKFAST. 1/2 HOUR BEFORE A MEAL - oxybutynin ER (DITROPAN XL) 10 mg 24 hr tablet Take 1 tablet by mouth once daily. - metFORMIN (GLUCOPHAGE) 500 mg tablet Take 1 tablet by mouth daily with breakfast. - metroNIDAZOLE (METROGEL) 0.75 % Topical Gel APPLY 1 APPLICATION TO AFFECTED AREA ONCE DAILY TOFACE - brimonidine (ALPHAGAN P) 0.1 % drop - loratadine (CLARITIN ORAL) Take by mouth. - nystatin-triamcinolone (MYCOLOG) ointment Apply sparingly to perineum twice daily for irritation/infection. - atropine 1 % ophthalmic solution - sulfacetamide (BLEPH-10) 10 % ophthalmic solution Use 1 Drop in both eyes four times daily. INSIDE LOWER EYELID(S) 1-4 TIMES DAILY AND AT BEDTIME - miconazole (MONISTAT 7) 2 % vaginal cream Use 1 Applicator vaginally daily at bedtime. - calcium carbonate (CALCIUM 500 ORAL) Take by mouth every other day. - BIOTIN ORAL Take 1 capsule by mouth once daily. - vitamin B complex (B COMPLEX VITAMINS ORAL) Take 1 tablet by mouth once daily. - ergocalciferol, vitamin D2, (VITAMIN D2 ORAL) Take 1 tablet by mouth once daily. - ferrous sulfate 325 mg (65 mg iron) tablet Take 325 mg by mouth every other day. - therapeutic multivitamin w/ iron (THERAGRAN-M) 9 mg iron-400 mcg tablet Take 1 tablet by mouth once daily. - prednisoLONE acetate (PRED FORTE, ECONOPRED PLUS) 1 % ophthalmic suspension Use 1 Drop in the (more content not included)... Normal [facility] CNOVon 08-11-2024 CNOV Office Visit (FPWADS ) TENA CANNON ([id number]) 1940 F Date Time Provider Department 08/11/24 1:20 PM LEONID LEAL During your visit today, we recorded the following information about you: Pulse Blood pressure 66/minute 146/77 Leonid Leal APRN.APPLIED STATISTICIAN 08/11/2024 3:02 PM Signed This note was created using Prestigosriter. Subjective Tena Cannon is a 83 year old female. Patient here with daughter for back pain that started around last weekend. Pain is located in left lumbar area and radiates down left side of thigh. Feels it when she first sits up in the morning, not typically bothering her during the day, but then again at night when transferring into bed is having a lot of pain and needing help getting into bed. History of low back pain when she fell and broke L4 and had sciatica on right side, about 10 years ago. She took gabapentin at that time, which resolved her symptoms and she'd like to try again. The sharp pain resolves after she gets into bed and settles down, takes Tylenol, also tried Salon paws which helped. No numbness/tingling/burn ing in the leg. Two weeks ago, she fell when transferring from scooter to wheelchair and ended up sitting down on her scooter in a small space, left knee got twisted and took her a while to get it released. Wears medical alert, called EMS for assistance. The history is provided by the patient and a relative. Review of Systems Musculoskeletal: Positive for back pain and gait problem. 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 Leukopenia Unspecified sleep apnea cpap PAST SURGICAL HISTORY Procedure Laterality Date APPENDECTOMY tubal ligation BLEPHAROPLASTY UPPER EYELID W/EXCESSIVE SKIN 2022 CARPAL TUNNEL RIGHT WRIST 07/2003 COLONOSCOPY 03/30/2013 normal exam EGD 03/30/2013 hiatal hernia, Anatolyary-Marshall Grade III reflux esophagitis, gastric polyps EGD 09/07/2018 SSBE noted on exam, not confirmed on biopsy, gastritis, neg H Pylori, fundic gland polyp IR KYPHOPLASTY LUMBAR 2007 L-3 LAPAROSCOPY SURG CHOLECYSTECTOMY 06/1999 Cholecystectomy, lap PAST SURGICAL HISTORY OF 2007 CMCJleft wrist PAST SURGICAL HISTORY OF child tendon transplants right ankle and both knees PAST SURGICAL HISTORY OF teens left great toe X 2 PAST SURGICAL HISTORY OF 1986 left rotator cuff repair and bone spur PAST SURGICAL HISTORY OF bone spur right shoulder RMVL SEC MEMBRANOUS CTRC CORNEO-SCLL SCTJ Cataract removal left with lens implant ALLERGIES Keflex [Cephalexin], Vioxx [Rofecoxib], Novocain [Procaine Hcl], Sumner-3 Fish Oil [Sumner-3 Fatty Acids-Vitamin E], Advil [Ibuprofen], and Asa [Salicylates] MEDICATIONS esomeprazole (NEXIUM) 40 mg capsule TAKE 1 CAPSULE DAILY BEFOREBREAKFAST. 1/2 HOUR BEFORE A MEAL oxybutynin ER (DITROPAN XL) 10 mg 24 hr tablet Take 1 tablet by mouth once daily. metFORMIN (GLUCOPHAGE) 500 mg tablet Take 1 tablet by mouth daily with breakfast. metroNIDAZOLE (METROGEL) 0.75 % Topical Gel APPLY 1 APPLICATION TO AFFECTED AREA ONCE DAILY TOFACE brimonidine (ALPHAGAN P) 0.1 % drop loratadine (CLARITIN ORAL) Take by mouth. nystatin-triamcinolone (MYCOLOG) ointment Apply sparingly to perineum twice daily for irritation/infection. atropine 1 % ophthalmic solution sulfacetamide (BLEPH-10) 10 % ophthalmic solution Use 1 Drop in both eyes four times daily. INSIDE LOWER EYELID(S) 1-4 TIMES DAILY AND AT BEDTIME miconazole (MONISTAT 7) 2 % vaginal cream Use 1 Applicator vaginally daily at bedtime. calcium carbonate (CALCIUM 500 ORAL) Take by mouth every other day. BIOTIN ORAL Take 1 capsule by mouth once daily. vitamin B complex (B COMPLEX VITAMINS ORAL) Take 1 tablet by mouth once daily. ergocalciferol, vitamin D2, (VITAMIN D2 ORAL) Take 1 tablet by mouth once daily. ferrous sulfate 325 mg (65 mg iron) tablet Take 325 mg by mouth every other day. therapeutic multivitamin w/ iron (THERAGRAN-M) 9 mg iron-400 mcg tablet Take 1 tablet by mouth once daily. prednisoLONE acetate (PRED FORTE, ECONOPRED PLUS) 1 % ophthalmic suspension Use 1 Drop in the left eye twice daily as needed. timolol maleate (TIMOPTIC) 0.5 % ophthalmic solution Use 1 Drop in the left eye every morning. polyvinyl alcohol (LIQUID TEARS OPHTHALMIC) Use in eyes. rutin/hesp/bioflav/C/h [id number] (BIOFLEX ORAL) Take 1 capsule by mouth twice daily. CPAP BipaP @ 14/9 cm of water with humidification, removable water dispenser (for cleaning) . Mask (small/ per patient preference) , filters, tubing, humidifier and lifetime supplies. (G47.33, Z99.89) Obstructive sleep apnea on CPAP cyclopentolate (CYCLOGYL) (more content not included)... [facility] [place] [facility] CNPN Nurse Triage (FPWAANA M ) TENA CANNON ([id number]) 1940 F Date Time Provider Department 08/11/24 SAHRA GUY During your visit today, we recorded the following information about you: Cris Rascon 08/11/2024 8:57 AM Signed Tena is calling Sahra Guy MD today with concern regarding Muscle Aches/Pulled muscle Left side above the curve of her but states that she thinks she pulled a muscle and thought that this would get better but it is not. Patient has been identified by name and birthdate. Duration of symptoms: 1 weeks Person calling: self Call patient at: at home [phone] (home) [phone] (cell) Was an appointment scheduled: No Closing statement: Symptom Call: Thank you for calling [facility], your call is very important. A nurse will call in approximately 2-4 hours during business hours. If this is an emergency, please contact 911. Alondra Burk RN 08/11/2024 11:49 AM Signed Called and spoke with pt States pain located in left mid back Present 1 week, has not improved Not sure what caused it but notices it is much worse when she lays down to sleep Sleeps on side and feels like the muscle is pulling when she lays down. Also radiates down leg when laying down Taking Tylenol- not sure if it helps Has not had pain like this before Denies any other symptoms Advised OV for eval Reviewed home care in the meantime- heat, gentle stretches, pillow in between knees, pain medication PRN Pt will speak with transportation and call back to schedule appt. No further questions at this time Reason for Disposition [1] MODERATE back pain (e.g., interferes with normal activities) AND [2] present > 3 days Answer Assessment - Initial Assessment Questions 1. ONSET: 1 week 2. LOCATION: Mid left back 3. SEVERITY: Moderate 4. PATTERN: Constant, worse when laying down 5. RADIATION: Yes 6. CAUSE: Pulled muscle 7. BACK OVERUSE: Doesn't think so 8. MEDICINES: Tylenol 9. NEUROLOGIC SYMPTOMS: Denies 10. OTHER SYMPTOMS: Denies 11. : N/a Protocols used: Back Toob-LMSRH-DV Allergies As of Date: 08/11/2024 Noted Allergy Reaction KEFLEX (CEPHALEXIN) 05/12/2005 6 - Diarrhea 8 - GI Upset Comments: extreme diarrhea VIOXX (ROFECOXIB) 05/12/2005 5 - Intolerance Comments: Makes capillaryblood vessels break NOVOCAIN (PROCAINE HCL) 01/13/2024 5 - Intolerance Comments: headaches OMEGA-3 FISH OIL (OMEGA-3 FATTY A*05/05/2007 5 - Intolerance Comments: bleeding in eye ADVIL (IBUPROFEN) 05/28/2005 5 - Intolerance Comments: Makes capillary blood vessels bread ASA (SALICYLATES) 05/28/2005 5 - Intolerance Comments: Makes capillary blood vessels break Date Reviewed: 12/10/2023 Reviewed by: Adonay Marquez LPN - Fully Assessed Reason for Visit: Muscle Aches [268] Prescriptions as of 08/11/2024 - esomeprazole (NEXIUM) 40 mg capsule TAKE 1 CAPSULE DAILY BEFOREBREAKFAST. 1/2 HOUR BEFORE A MEAL - oxybutynin ER (DITROPAN XL) 10 mg 24 hr tablet Take 1 tablet by mouth once daily. - metFORMIN (GLUCOPHAGE) 500 mg tablet Take 1 tablet by mouth daily with breakfast. - metroNIDAZOLE (METROGEL) 0.75 % Topical Gel APPLY 1 APPLICATION TO AFFECTED AREA ONCE DAILY TOFACE - brimonidine (ALPHAGAN P) 0.1 % drop - loratadine (CLARITIN ORAL) Take by mouth. - nystatin-triamcinolone (MYCOLOG) ointment Apply sparingly to perineum twice daily for irritation/infection. - atropine 1 % ophthalmic solution - sulfacetamide (BLEPH-10) 10 % ophthalmic solution Use 1 Drop in both eyes four times daily. INSIDE LOWER EYELID(S) 1-4 TIMES DAILY AND AT BEDTIME - miconazole (MONISTAT 7) 2 % vaginal cream Use 1 Applicator vaginally daily at bedtime. - calcium carbonate (CALCIUM 500 ORAL) Take by mouth every other day. - BIOTIN ORAL Take 1 capsule by mouth once daily. - vitamin B complex (B COMPLEX VITAMINS ORAL) Take 1 tablet by mouth once daily. - ergocalciferol, vitamin D2, (VITAMIN D2 ORAL) Take 1 tablet by mouth once daily. - ferrous sulfate 325 mg (65 mg iron) tablet Take 325 mg by mouth every other day. - therapeutic multivitamin w/ iron (THERAGRAN-M) 9 mg iron-400 mcg tablet Take 1 tablet by mouth once daily. - prednisoLONE acetate (PRED FORTE, ECONOPRED PLUS) 1 % ophthalmic suspension Use 1 Drop in the left eye twice daily as needed. - timolol maleate (TIMOPTIC) 0.5 % ophthalmic solution Use 1 Drop in the left eye every morning. - polyvinyl alcohol (LIQUID TEARS OPHTHALMIC) Use in eyes. - rutin/hesp/bioflav/C/h [id number] (BIOFLEX ORAL) Take 1 capsule by mouth twice daily. - CPAP BipaP @ 14/9 cm of water with humidification, removable water dispenser (for cleaning) . Mask (small/ per patient preference) , filters, tubing, humidifier and lifetime supplies. (G47.33, Z99.89) Obstructive sleep apnea on CPAP - cyclopentola (more content not included)... Normal [facility] Agustina 06-23-2024 PHAN Telephone (LINDY) CANNONTENA Esquivel ([id number]) 1940 F Date Time Provider Department 06/23/24 SAHRA GUY During your visit today, we recorded the following information about you: Adonay Marquez LPN 06/23/2024 3:19 PM Signed Received DNR order from [facility]. Placed in provider's inbox for review. Route to [place] fax Allergies As of Date: 06/23/2024 Noted Allergy Reaction KEFLEX (CEPHALEXIN) 05/12/2005 6 - Diarrhea 8 - GI Upset Comments: extreme diarrhea VIOXX (ROFECOXIB) 05/12/2005 5 - Intolerance Comments: Makes capillaryblood vessels break NOVOCAIN (PROCAINE HCL) 01/13/2024 5 - Intolerance Comments: headaches OMEGA-3 FISH OIL (OMEGA-3 FATTY A*05/05/2007 5 - Intolerance Comments: bleeding in eye ADVIL (IBUPROFEN) 05/28/2005 5 - Intolerance Comments: Makes capillary blood vessels bread ASA (SALICYLATES) 05/28/2005 5 - Intolerance Comments: Makes capillary blood vessels break Date Reviewed: 12/10/2023 Reviewed by: Adonay Marquez LPN - Fully Assessed Reason for Visit: Orders [681] [facility] Prescriptions as of 06/23/2024 - oxybutynin ER (DITROPAN XL) 10 mg 24 hr tablet Take 1 tablet by mouth once daily. - esomeprazole (NEXIUM) 40 mg capsule TAKE 1 CAPSULE DAILY BEFOREBREAKFAST. 1/2 HOUR BEFORE A MEAL - metFORMIN (GLUCOPHAGE) 500 mg tablet Take 1 tablet by mouth daily with breakfast. - metroNIDAZOLE (METROGEL) 0.75 % Topical Gel APPLY 1 APPLICATION TO AFFECTED AREA ONCE DAILY TOFACE - brimonidine (ALPHAGAN P) 0.1 % drop - loratadine (CLARITIN ORAL) Take by mouth. - nystatin-triamcinolone (MYCOLOG) ointment Apply sparingly to perineum twice daily for irritation/infection. - atropine 1 % ophthalmic solution - sulfacetamide (BLEPH-10) 10 % ophthalmic solution Use 1 Drop in both eyes four times daily. INSIDE LOWER EYELID(S) 1-4 TIMES DAILY AND AT BEDTIME - miconazole (MONISTAT 7) 2 % vaginal cream Use 1 Applicator vaginally daily at bedtime. - calcium carbonate (CALCIUM 500 ORAL) Take by mouth every other day. - BIOTIN ORAL Take 1 capsule by mouth once daily. - vitamin B complex (B COMPLEX VITAMINS ORAL) Take 1 tablet by mouth once daily. - ergocalciferol, vitamin D2, (VITAMIN D2 ORAL) Take 1 tablet by mouth once daily. - ferrous sulfate 325 mg (65 mg iron) tablet Take 325 mg by mouth every other day. - therapeutic multivitamin w/ iron (THERAGRAN-M) 9 mg iron-400 mcg tablet Take 1 tablet by mouth once daily. - prednisoLONE acetate (PRED FORTE, ECONOPRED PLUS) 1 % ophthalmic suspension Use 1 Drop in the left eye twice daily as needed. - timolol maleate (TIMOPTIC) 0.5 % ophthalmic solution Use 1 Drop in the left eye every morning. - polyvinyl alcohol (LIQUID TEARS OPHTHALMIC) Use in eyes. - rutin/hesp/bioflav/C/h [id number] (BIOFLEX ORAL) Take 1 capsule by mouth twice daily. - CPAP BipaP @ 14/9 cm of water with humidification, removable water dispenser (for cleaning) . Mask (small/ per patient preference) , filters, tubing, humidifier and lifetime supplies. (G47.33, Z99.89) Obstructive sleep apnea on CPAP - cyclopentolate (CYCLOGYL) 1 % ophthalmic solution Use 1 Drop in the left eye twice daily. 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] 04/14/2006 LUMBAGO [M54.50] 01/05/2007 PAIN IN JOINT, LOWER LEG [M25.569] 01/22/2007 VERTEBRAL FX NOS-CLOSED [[id number]] 03/24/2007 RESTLESS LEGS SYNDROME [G25.81] BONE AND CARTILAGE DIS NOS [M89.9, M94.9] PAIN IN LIMB [M79.609] 11/22/2008 Deformity of ankle and foot, acquired [M21.969] 11/22/2008 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, M21.6X9] 11/27/2008 Poliomyelitis osteopathy of multiple sites (HCC*11/27/2008 Sleep apnea [G47.30] 04/15/2010 02/01/2019 Vitamin D Deficiency [E55.9] 04/15/2010 Osteopenia [M85.80] 04/15/2010 Incontinence [R32] 07/19/2012 Fracture of L1 vertebra ([facility]) [S32.019A] 06/02/2014 02/01/2019 Lumbar radiculopathy [M54.16] 06/03/2014 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 Obstructive sleep apnea on CPAP [G47.33] 07/14/2017 Rosacea [L71.9] 10/13/2017 Obesity, Class III, BMI 40-49.9 (morbid obesity*12/02/2017 Generalized weakness [R53.1] 07/29/2018 Shingles rash [B02.9] 07/29/2018 02/01/2019 Herpes zoster lesion [B02.8] 07/29/2018 02/01/2019 Epigastric pain [R10.13] 08/25/2018 11/24/2018 Encounter Status:Closed by ADONAY MARQUEZ on 06/23/24 [facility] Agustina 06-02-2024 PHAN Telephone (FPWADS) TENA CANNON ([id number]) 1940 F Date Time Provider Department 06/02/24 SAHRA GUY During your visit today, we recorded the following information about you: Cris Rascon 06/02/2024 10:17 AM Signed Tena is calling Sahra Guy MD today with concern regarding Question/Weight Patient is calling in and wanting to get her weight from recent visits; states that she needs to give this to the Assisted Living that she is at. Patient has been identified by name and birthdate. Duration of symptoms: N/A Person calling: self Call patient at: at home [phone] (home) [phone] (cell) Was an appointment scheduled: No Closing statement: Results or non-symptom based questions: Thank you for calling [facility], your call will be returned within the next business day. Sahra Hooker MD 06/02/2024 5:13 PM Signed 197 lbs., MD Aguilar Mitchell Lisa, LPN 06/03/2024 8:55 AM Signed Weights have been declined. Patient in motorized wheelchair. Voicemail left for patient. Allergies As of Date: 06/02/2024 Noted Allergy Reaction KEFLEX (CEPHALEXIN) 05/12/2005 6 - Diarrhea 8 - GI Upset Comments: extreme diarrhea VIOXX (ROFECOXIB) 05/12/2005 5 - Intolerance Comments: Makes capillaryblood vessels break NOVOCAIN (PROCAINE HCL) 01/13/2024 5 - Intolerance Comments: headaches OMEGA-3 FISH OIL (OMEGA-3 FATTY A*05/05/2007 5 - Intolerance Comments: bleeding in eye ADVIL (IBUPROFEN) 05/28/2005 5 - Intolerance Comments: Makes capillary blood vessels bread ASA (SALICYLATES) 05/28/2005 5 - Intolerance Comments: Makes capillary blood vessels break Date Reviewed: 12/10/2023 Reviewed by: Adonay Marquez LPN - Fully Assessed Reason for Visit: Question [1327] Prescriptions as of 06/03/2024 - esomeprazole (NEXIUM) 40 mg capsule TAKE 1 CAPSULE DAILY BEFOREBREAKFAST. 1/2 HOUR BEFORE A MEAL - metFORMIN (GLUCOPHAGE) 500 mg tablet Take 1 tablet by mouth daily with breakfast. - metroNIDAZOLE (METROGEL) 0.75 % Topical Gel APPLY 1 APPLICATION TO AFFECTED AREA ONCE DAILY TOFACE - oxybutynin ER (DITROPAN XL) 10 mg 24 hr tablet Take 1 tablet by mouth once daily. - brimonidine (ALPHAGAN P) 0.1 % drop - loratadine (CLARITIN ORAL) Take by mouth. - nystatin-triamcinolone (MYCOLOG) ointment Apply sparingly to perineum twice daily for irritation/infection. - atropine 1 % ophthalmic solution - sulfacetamide (BLEPH-10) 10 % ophthalmic solution Use 1 Drop in both eyes four times daily. INSIDE LOWER EYELID(S) 1-4 TIMES DAILY AND AT BEDTIME - miconazole (MONISTAT 7) 2 % vaginal cream Use 1 Applicator vaginally daily at bedtime. - calcium carbonate (CALCIUM 500 ORAL) Take by mouth every other day. - BIOTIN ORAL Take 1 capsule by mouth once daily. - vitamin B complex (B COMPLEX VITAMINS ORAL) Take 1 tablet by mouth once daily. - ergocalciferol, vitamin D2, (VITAMIN D2 ORAL) Take 1 tablet by mouth once daily. - ferrous sulfate 325 mg (65 mg iron) tablet Take 325 mg by mouth every other day. - therapeutic multivitamin w/ iron (THERAGRAN-M) 9 mg iron-400 mcg tablet Take 1 tablet by mouth once daily. - prednisoLONE acetate (PRED FORTE, ECONOPRED PLUS) 1 % ophthalmic suspension Use 1 Drop in the left eye twice daily as needed. - timolol maleate (TIMOPTIC) 0.5 % ophthalmic solution Use 1 Drop in the left eye every morning. - polyvinyl alcohol (LIQUID TEARS OPHTHALMIC) Use in eyes. - rutin/hesp/bioflav/C/h [id number] (BIOFLEX ORAL) Take 1 capsule by mouth twice daily. - CPAP BipaP @ 14/9 cm of water with humidification, removable water dispenser (for cleaning) . Mask (small/ per patient preference) , filters, tubing, humidifier and lifetime supplies. (G47.33, Z99.89) Obstructive sleep apnea on CPAP - cyclopentolate (CYCLOGYL) 1 % ophthalmic solution Use 1 Drop in the left eye twice daily. 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] 04/14/2006 LUMBAGO [M54.50] 01/05/2007 PAIN IN JOINT, LOWER LEG [M25.569] 01/22/2007 VERTEBRAL FX NOS-CLOSED [[id number]] 03/24/2007 RESTLESS LEGS SYNDROME [G25.81] BONE AND CARTILAGE DIS NOS [M89.9, M94.9] PAIN IN LIMB [M79.609] 11/22/2008 Deformity of ankle and foot, acquired [M21.969] 11/22/2008 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, M21.6X9] 11/27/2008 Poliomyelitis osteopathy of multiple sites (HCC*11/27/2008 Sleep apnea [G47.30] 04/15/2010 02/01/2019 Vitamin D Deficiency [E55.9] 04/15/2010 Osteopenia [M85.80] 04/15/2010 Incontinence [R32] 07/19/2012 Fracture of L1 verte (more content not included)... Normal [facility] CNPN Telephone (FAMPST) TENA CANNON ([id number]) 1940 F Date Time Provider Department 06/02/24 SAHRA GUY During your visit today, we recorded the following information about you: [facility] [place] 06/02/2024 2:18 PM Signed Tena is calling Sahra Guy MD today to request patient medication list be mailed to her please . The address has been verified Patient has been identified by name and birthdate. Person calling: self Call patient at: at home [phone] (home) [phone] (cell) Was an appointment scheduled: No Closing statement: Results or non-symptom based questions: Thank you for calling [facility], your call will be returned within the next business day. Norma Torres [facility] [place] Malika Sheikh LPN 06/03/2024 8:36 AM Signed Placed in mail for patient. Allergies As of Date: 06/02/2024 Noted Allergy Reaction KEFLEX (CEPHALEXIN) 05/12/2005 6 - Diarrhea 8 - GI Upset Comments: extreme diarrhea VIOXX (ROFECOXIB) 05/12/2005 5 - Intolerance Comments: Makes capillaryblood vessels break NOVOCAIN (PROCAINE HCL) 01/13/2024 5 - Intolerance Comments: headaches OMEGA-3 FISH OIL (OMEGA-3 FATTY A*05/05/2007 5 - Intolerance Comments: bleeding in eye ADVIL (IBUPROFEN) 05/28/2005 5 - Intolerance Comments: Makes capillary blood vessels bread ASA (SALICYLATES) 05/28/2005 5 - Intolerance Comments: Makes capillary blood vessels break Date Reviewed: 12/10/2023 Reviewed by: Adonay Marquez LPN - Fully Assessed Reason for Visit: Patient Question [[id number]] Prescriptions as of 06/03/2024 - esomeprazole (NEXIUM) 40 mg capsule TAKE 1 CAPSULE DAILY BEFOREBREAKFAST. 1/2 HOUR BEFORE A MEAL - metFORMIN (GLUCOPHAGE) 500 mg tablet Take 1 tablet by mouth daily with breakfast. - metroNIDAZOLE (METROGEL) 0.75 % Topical Gel APPLY 1 APPLICATION TO AFFECTED AREA ONCE DAILY TOFACE - oxybutynin ER (DITROPAN XL) 10 mg 24 hr tablet Take 1 tablet by mouth once daily. - brimonidine (ALPHAGAN P) 0.1 % drop - loratadine (CLARITIN ORAL) Take by mouth. - nystatin-triamcinolone (MYCOLOG) ointment Apply sparingly to perineum twice daily for irritation/infection. - atropine 1 % ophthalmic solution - sulfacetamide (BLEPH-10) 10 % ophthalmic solution Use 1 Drop in both eyes four times daily. INSIDE LOWER EYELID(S) 1-4 TIMES DAILY AND AT BEDTIME - miconazole (MONISTAT 7) 2 % vaginal cream Use 1 Applicator vaginally daily at bedtime. - calcium carbonate (CALCIUM 500 ORAL) Take by mouth every other day. - BIOTIN ORAL Take 1 capsule by mouth once daily. - vitamin B complex (B COMPLEX VITAMINS ORAL) Take 1 tablet by mouth once daily. - ergocalciferol, vitamin D2, (VITAMIN D2 ORAL) Take 1 tablet by mouth once daily. - ferrous sulfate 325 mg (65 mg iron) tablet Take 325 mg by mouth every other day. - therapeutic multivitamin w/ iron (THERAGRAN-M) 9 mg iron-400 mcg tablet Take 1 tablet by mouth once daily. - prednisoLONE acetate (PRED FORTE, ECONOPRED PLUS) 1 % ophthalmic suspension Use 1 Drop in the left eye twice daily as needed. - timolol maleate (TIMOPTIC) 0.5 % ophthalmic solution Use 1 Drop in the left eye every morning. - polyvinyl alcohol (LIQUID TEARS OPHTHALMIC) Use in eyes. - rutin/hesp/bioflav/C/h [id number] (BIOFLEX ORAL) Take 1 capsule by mouth twice daily. - CPAP BipaP @ 14/9 cm of water with humidification, removable water dispenser (for cleaning) . Mask (small/ per patient preference) , filters, tubing, humidifier and lifetime supplies. (G47.33, Z99.89) Obstructive sleep apnea on CPAP - cyclopentolate (CYCLOGYL) 1 % ophthalmic solution Use 1 Drop in the left eye twice daily. 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] 04/14/2006 LUMBAGO [M54.50] 01/05/2007 PAIN IN JOINT, LOWER LEG [M25.569] 01/22/2007 VERTEBRAL FX NOS-CLOSED [[id number]] 03/24/2007 RESTLESS LEGS SYNDROME [G25.81] BONE AND CARTILAGE DIS NOS [M89.9, M94.9] PAIN IN LIMB [M79.609] 11/22/2008 Deformity of ankle and foot, acquired [M21.969] 11/22/2008 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 Normal [facility] TENA CANNON ([id number]) 1940 F Date Time Provider Department 05/18/24 SAHRA GUY During your visit today, we recorded the following information about you: Kimberly Nelson 05/18/2024 11:41 AM Signed Patient said she scheduled an appt with Dr. Guy on 05/24/24 to get RSV vaccine. Wanted to make sure it was ordered. I asked if that is all she needs; not sure if she needs to see the doctor for that or if she can just schedule with the nurse. She hasn't seen the doctor since December. Please advise her at [phone] Adonay Marquez LPN 05/18/2024 11:53 AM Signed RSV vaccine is not covered in office with pt insurance. Please assist pt in scheduling office visit with provider for a check up. Allergies As of Date: 05/18/2024 Noted Allergy Reaction KEFLEX (CEPHALEXIN) 05/12/2005 6 - Diarrhea 8 - GI Upset Comments: extreme diarrhea VIOXX (ROFECOXIB) 05/12/2005 5 - Intolerance Comments: Makes capillaryblood vessels break NOVOCAIN (PROCAINE HCL) 01/13/2024 5 - Intolerance Comments: headaches OMEGA-3 FISH OIL (OMEGA-3 FATTY A*05/05/2007 5 - Intolerance Comments: bleeding in eye ADVIL (IBUPROFEN) 05/28/2005 5 - Intolerance Comments: Makes capillary blood vessels bread ASA (SALICYLATES) 05/28/2005 5 - Intolerance Comments: Makes capillary blood vessels break Date Reviewed: 12/10/2023 Reviewed by: Adonay Marquez LPN - Fully Assessed Reason for Visit: RSV vaccine [Other] Prescriptions as of 05/18/2024 - esomeprazole (NEXIUM) 40 mg capsule TAKE 1 CAPSULE DAILY BEFOREBREAKFAST. 1/2 HOUR BEFORE A MEAL - metFORMIN (GLUCOPHAGE) 500 mg tablet Take 1 tablet by mouth daily with breakfast. - metroNIDAZOLE (METROGEL) 0.75 % Topical Gel APPLY 1 APPLICATION TO AFFECTED AREA ONCE DAILY TOFACE - oxybutynin ER (DITROPAN XL) 10 mg 24 hr tablet Take 1 tablet by mouth once daily. - brimonidine (ALPHAGAN P) 0.1 % drop - loratadine (CLARITIN ORAL) Take by mouth. - nystatin-triamcinolone (MYCOLOG) ointment Apply sparingly to perineum twice daily for irritation/infection. - atropine 1 % ophthalmic solution - sulfacetamide (BLEPH-10) 10 % ophthalmic solution Use 1 Drop in both eyes four times daily. INSIDE LOWER EYELID(S) 1-4 TIMES DAILY AND AT BEDTIME - miconazole (MONISTAT 7) 2 % vaginal cream Use 1 Applicator vaginally daily at bedtime. - calcium carbonate (CALCIUM 500 ORAL) Take by mouth every other day. - BIOTIN ORAL Take 1 capsule by mouth once daily. - vitamin B complex (B COMPLEX VITAMINS ORAL) Take 1 tablet by mouth once daily. - ergocalciferol, vitamin D2, (VITAMIN D2 ORAL) Take 1 tablet by mouth once daily. - ferrous sulfate 325 mg (65 mg iron) tablet Take 325 mg by mouth every other day. - therapeutic multivitamin w/ iron (THERAGRAN-M) 9 mg iron-400 mcg tablet Take 1 tablet by mouth once daily. - prednisoLONE acetate (PRED FORTE, ECONOPRED PLUS) 1 % ophthalmic suspension Use 1 Drop in the left eye twice daily as needed. - timolol maleate (TIMOPTIC) 0.5 % ophthalmic solution Use 1 Drop in the left eye every morning. - polyvinyl alcohol (LIQUID TEARS OPHTHALMIC) Use in eyes. - rutin/hesp/bioflav/C/h [id number] (BIOFLEX ORAL) Take 1 capsule by mouth twice daily. - CPAP BipaP @ 14/9 cm of water with humidification, removable water dispenser (for cleaning) . Mask (small/ per patient preference) , filters, tubing, humidifier and lifetime supplies. (G47.33, Z99.89) Obstructive sleep apnea on CPAP - cyclopentolate (CYCLOGYL) 1 % ophthalmic solution Use 1 Drop in the left eye twice daily. 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] 04/14/2006 LUMBAGO [M54.50] 01/05/2007 PAIN IN JOINT, LOWER LEG [M25.569] 01/22/2007 VERTEBRAL FX NOS-CLOSED [[id number]] 03/24/2007 RESTLESS LEGS SYNDROME [G25.81] BONE AND CARTILAGE DIS NOS [M89.9, M94.9] PAIN IN LIMB [M79.609] 11/22/2008 Deformity of ankle and foot, acquired [M21.969] 11/22/2008 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 Normal [facility] 25-hydroxyvitamin D3 [Mass/V ol]on 03-03-2024 Interpretation and review of laboratory results Normal [facility] Therapy is based on measurement of Total 25-OHD with the following classification levels: Less than 20 ng/mL: Indicative of Vit D deficiency 20-30 ng/mL: Suggests Vit D insufficiency Optimal: Greater than or equal to 30 ng/mL Test performed by [place] Competitive Immunoassay, measuring Total Vitamin D, not individual fractions. [facility] CBC (HEMOGRAM)on 03-03-2024 Erythrocyte distribution width (RBC) [Ratio] 12.3 % Normal 11.5-15.0 [facility] Comment on above: Performed By: #### L [id number] #### Rn Cardiovascular Icu: JEAN PIERRE CA ([id number]) [facility] JODY (SWRLAB) [address] [place] [address] Hematocrit (Bld) [Volume fraction] 40.5 % Normal 35.0-47.0 [facility] Comment on above: Performed By: #### L [id number] #### Rn Cardiovascular Icu: JEAN PIERRE CA ([id number]) [facility] (SWRLAB) [address] [place] [address] Hemoglobin (Bld) [Mass/Vol] 14.1 g/dL Normal 11.7-16.0 [facility] Comment on above: Performed By: #### L [id number] #### Rn Cardiovascular Icu: JEAN PIERRE CA ([id number]) [facility] [place] (SWRLAB) [address] [place] [address] MCH (RBC) [Entitic mass] 31.7 pg Normal 26.0-34.0 [facility] Comment on above: Performed By: #### L [id number] #### Rn Cardiovascular Icu: JEAN PIERRE CA ([id number]) [facility] [place] (SWRLAB) [address] [place] [address] MCHC 34.8 % Normal 30.5-36.0 [facility] Comment on above: Performed By: #### L [id number] #### Rn Cardiovascular Icu: JEAN PIERRE CA ([id number]) [facility] [place] (SWRLAB) [address] [place] [address] MCV (RBC) [Entitic vol] 91.0 fL Normal 77.0-99.0 [facility] Comment on above: Performed By: #### L [id number] #### Rn Cardiovascular Icu: JEAN PIERRE CA ([id number]) [facility] (SWRLAB) [address] [place] [address] Platelet mean volume (Bld) [Entitic vol] 11.2 fL Normal 9.0-12.7 [facility] Comment on above: Result Comment: MPV is a calculated measurement using platelet volume ratio Performed By: #### L [id number] #### Rn Cardiovascular Icu: JEAN PIERRE CA ([id number]) [facility] (SWRLAB) [address] [place] [address] Platelets (Bld) [#/Vol] 177 10*3/uL Normal 140-440 [facility] Comment on above: Performed By: #### L [id number] #### Rn Cardiovascular Icu: JEAN PIERRE CA ([id number]) [facility] (SWRLAB) [address] [place] [address] RBC (Bld) [#/Vol] 4.45 10*6/uL Normal 3.80-5.20 [facility] Comment on above: Performed By: #### L [id number] #### Rn Cardiovascular Icu: JEAN PIERRE CA ([id number]) [facility] (SWRLAB) [address] [place] [address] WBC (Bld) [#/Vol] 3.7 10*3/uL Normal 3.6-10.7 [facility] Comment on above: Performed By: #### L [id number] #### Rn Cardiovascular Icu: JEAN PIERRE CA ([id number]) [facility]STELL[facility] (SWRLAB) [address] [place] [address] CBC panel Auto (Bld)on 03-03 Erythrocyte distribution width (RBC) [Ratio] 12.3 % 11.5 - 15.0 % [facility] Hematocrit (Bld) [Volume fraction] 40.5 % 35.0 - 47.0 % [facility] Hemoglobin (Bld) [Mass/Vol] 14.1 g/dL 11.7 - 16.0 g/dL [facility] Interpretation and review of laboratory results Normal [facility] MCH (RBC) [Entitic mass] 31.7 pg 26. 0 - 34.0 pg [facility] MCHC (RBC) [Mass/Vol] 34.8 % 30.5 - 36.0 % [facility] MCV (RBC) [Entitic vol] 91 fL 77.0 - 99.0 fL [facility] Platelet mean volume (Bld) [Entitic vol] 11.2 fL 9.0 - 12.7 fL [facility] Comment on above: MPV is a calculated measurement using platelet volume ratio Platelets (Bld) [#/Vol] 177 10*3/uL 140 - 440 10*3/uL [facility] RBC (Bld) [#/Vol] 4.45 10*6/uL 3.80 - 5.2 0 10*6/uL [facility] WBC (Bld) [#/Vol] 3.7 10*3/uL 3.6 - 10.7 10*3/uL [facility] COMPREHENSIVE METABOLIC PANE Kojo 03-03-2024 Albumin [Mass/Vol] 4.1 g/dL Normal 3.5-5.0 [facility] Comment on above: Performed By: #### L AB17, LAB18 #### Rn Cardiovascular Icu: JEAN PIERRE CA ([id number]) [facility] D[facility] (SWRLAB) [address] ALP [Catalytic activity/Vol] 69 U/L Normal 38-126 [facility] Comment on above: Performed By: #### L AB17, LAB18 #### Rn Cardiovascular Icu: JEAN PIERRE CA ([id number]) [facility] (SWRLAB) [address] [place] [address] [place] ALT [Catalytic activity/Vol] 18 U/L Normal 0-34 [facility] Comment on above: Performed By: #### L AB17, LAB18 #### Rn Cardiovascular Icu: JEAN PIERRE CA ([id number]) [facility] (SWRLAB) [address] [place] [address] [place] Anion gap [Moles/Vol] 7 mmol/L Normal 3-13 [facility] Comment on above: Performed By: #### L AB17, LAB18 #### Rn Cardiovascular Icu: JEAN PIERRE CA ([id number]) [facility] (SWRLAB) [address] [place] [address] [place] AST [Catalytic activity/Vol] 25 U/L Normal 15-46 [facility] Comment on above: Performed By: #### L AB17, LAB18 #### Rn Cardiovascular Icu: JEAN PIERRE CA ([id number]) [facility] (SWRLAB) [address] [place] [address] [place] Bilirubin [Mass/Vol] 0.6 mg/dL Normal 0.2-1.3 [facility] Comment on above: Performed By: #### L AB17, LAB18 #### Rn Cardiovascular Icu: JEAN PIERRE CA ([id number]) [facility] (SWRLAB) [address] [place] [address] Calcium [Mass/Vol] 9.8 mg/dL Normal 8.4-10.4 [facility] Comment on above: Performed By: #### L AB17, LAB18 #### Rn Cardiovascular Icu: JEAN PIERRE CA ([id number]) [facility] (SWRLAB) [address] [place] [address] Chloride [Moles/Vol] 102 mmol/L Normal 98-107 [facility] Comment on above: Performed By: #### L AB17, LAB18 #### Rn Cardiovascular Icu: JEAN PIERRE CA ([id number]) [facility] (SWRLAB) [address] [place] [address] [place] CO2 [Moles/Vol] 31 mmol/L High 22-30 [facility] Comment on above: Performed By: #### L AB17, LAB18 #### Rn Cardiovascular Icu: JEAN PIERRE CA ([id number]) [facility] (SWRLAB) [address] [place] [address] Creatinine [Mass/Vol] 0.45 mg/dL Low 0.52-1.04 [facility] Comment on above: Performed By: #### L AB17, LAB18 #### Rn Cardiovascular Icu: JEAN PIERRE CA ([id number]) [facility] (SWRLAB) [address] [place] [address] GLOMERULAR FILTRATION RATE ML/MIN/1.73 SQ M.PREDICTED >90.0 Normal >60.0 [facility] Comment on above: Result Comment: Calc ulation based on the Chronic Kidney Disease Epidemiology Collaboration (CKD-EPI) equation refit without adjustment for race Performed By: #### L AB17, LAB18 #### Rn Cardiovascular Icu: JEAN PIERRE CA ([id number]) [facility] (SWRLAB) [address] [place] [address] Glucose [Mass/Vol] 87 mg/dL Normal 70-100 [facility] Comment on above: Performed By: #### L AB17, LAB18 #### Rn Cardiovascular Icu: JEAN PIERRE CA ([id number]) [facility] (SWRLAB) [address] [place] [address] Potassium [Moles/Vol] 4.2 mmol/L Normal 3.5-5.1 [facility] Comment on above: Performed By: #### L AB17, LAB18 #### Rn Cardiovascular Icu: JEAN PIERRE CA ([id number]) [facility] (SWRLAB) [address] [place] [address] Protein [Mass/Vol] 7.1 g/dL Normal 6.3-8.2 [facility] Comment on above: Performed By: #### L AB17, LAB18 #### Rn Cardiovascular Icu: JEAN PIERRE CA ([id number]) [facility] (SWRLAB) [address] [place] [address] Sodium [Moles/Vol] 140 mmol/L Normal 135-145 [facility] Comment on above: Performed By: #### L AB17, LAB18 #### Rn Cardiovascular Icu: JEAN PIERRE CA ([id number]) [facility] (SWRLAB) [address] [place] [address] Urea nitrogen [Mass/Vol] 15 mg/dL Normal 7-17 [facility] Comment on above: Performed By: #### L AB17, LAB18 #### Rn Cardiovascular Icu: JEAN PIERRE CA ([id number]) [facility] (SWRLAB) [address] [place] [address] Comprehensive metabolic 1998 panelon 03-03-2024 Albumin [Mass/Vol] 4.1 g/dL 3.5 - 5.0 g/dL [facility] ALP [Catalytic activity/Vol] 69 U/L 38 - 126 U/L [facility] ALT [Catalytic activity/Vol] 18 U/L 0 - 34 U/L [facility] Anion gap [Moles/Vol] 7 mmol/L 3 - 13 mmol/L [facility] AST [Catalytic activity/Vol] 25 U/L 15 - 46 U/L [facility] Bilirubin [Mass/Vol] 0.6 mg/dL 0.2 - 1 .3 mg/dL [facility] Calcium [Mass/Vol] 9.8 mg/dL 8.4 - 10. 4 mg/dL [facility] Chloride [Moles/Vol] 102 mmol/L 98 - 10 7 mmol/L [facility] CO2 [Moles/Vol] 31 mmol/L High 22 - 30 mmol/L [facility] Creatinine [Mass/Vol] 0.45 mg/dL Low 0.52 - 1.04 mg/dL [facility] GFR/1.73 sq M.predicted (S/P/Bld) [Vol rate/Area] - PINF [facility] Comment on above: Calculation based on the Chronic Kidney Disease Epidemiology Collaboration (CKD-EPI) equation refit without adjustment for race Glucose [Mass/Vol] 87 mg/dL 70 - 100 mg/dL [facility] Potassium [Moles/Vol] 4.2 mmol/L 3.5 - 5.1 mmol/L [facility] Protein [Mass/Vol] 7.1 g/dL 6.3 - 8.2 g/dL [facility] Sodium [Moles/Vol] 140 mmol/L 135 - 145 mmol/L [facility] Urea nitrogen [Mass/Vol] 15 mg/dL 7 - 17 mg/d L [facility] HEMOGLOBIN A1Con 03-03-2024 Glucose [Mass/Vol] 85 mg/dL Normal [facility] Comment on above: Performed By: #### L AB90 #### Rn Cardiovascular Icu: JEAN PIERRE CA ([id number]) [facility] DAPHNIE FORTE ([facility] [address] [place] [address] HbA1c (Bld) [Mass fraction] 4.6 % Normal <5.7 [facility] Comment on above: Result Comment: Norm al less than 5.7% Prediabetes 5.7% to 6.4% Diabetes 6.5% or higher --HgbA1C levels may not be accurate in patients who have renal disease, received recent blood transfusions, are anemic, or who have dyshemoglobinemia. Performed By: #### L AB90 #### Rn Cardiovascular Icu: JEAN PIERRE CA ([id number]) [facility] (SWRLAB) [address] [place] [address] Hemoglobin A1con 03-03-2024 Average glucose Estimated from glycated hemoglobin (Bld) [Mass/Vol] 85 mg/dL [facility] HbA1c (Bld) [Mass fraction] 4.6 % NINF - 5.7 % [facility] Comment on above: Normal less than 5.7 % Prediabetes 5.7% to 6.4% Diabetes 6.5% or higher --HgbA1C levels may not be accurate in patients who have renal disease, received recent blood transfusions, are anemic, or who have dyshemoglobinemia. [facility] LIPID PANELon 03-03-2024 Cholesterol [Mass/Vol] 182 mg/dL Normal <200 [facility] Comment on above: Performed By: #### L AB17, LAB18 #### Rn Cardiovascular Icu: JEAN PIERRE CA ([id number]) [facility] [employer] [employer] (SWRLAB) [address] [place] [address] Cholesterol in HDL [Mass/Vol] 69 mg/dL High 40-60 [facility] Comment on above: Performed By: #### L [id number], [id number] #### Rn Cardiovascular Icu: JEAN PIERRE CA ([id number]) [facility]STELLANOT[facility] (SWRLAB) [address] [place] [address] Cholesterol.total/Choles terol in HDL [Mass ratio] 3 {ratio} Normal [facility] Comment on above: Result Comment: Ref Range: < 3 Low Risk for CHD 3-6 Mod Risk for CHD > 6 High Risk for CHD Performed By: #### L [id number], [id number] #### Rn Cardiovascular Icu: JEAN PIERRE CA ([id number]) [facility] (SWRLAB) [address] [place] [address] LOW DENSITY LIPOPROTEIN 92 mg/dL Normal 0-<100 [facility] Comment on above: Performed By: #### L [id number], [id number] #### Rn Cardiovascular Icu: JEAN PIERRE CA ([id number]) [facility] RITTMAN (SWRLAB) [address] Triglyceride [Mass/Vol] 107 mg/dL Normal <150 [facility] Comment on above: Performed By: #### L [id number], [id number] #### Rn Cardiovascular Icu: JEAN PIERRE CA ([id number]) [facility] [employer] (SWRLAB) [address] Lipid 1996 panelon 4 Cholesterol [Mass/Vol] 182 mg/dL NINF - 200 mg/dL [facility] Cholesterol in HDL [Mass/Vol] 69 mg/dL High 40 - 60 mg/dL [facility] Cholesterol in LDL [Mass/Vol] 92 mg/dL 0 - <100 [facility] Cholesterol.total/Choles terol in HDL [Mass ratio] 3 {ratio} [facility] Comment on above: Ref Range: < 3 Low Risk for CHD 3-6 Mod Risk for CHD > 6 High Risk for CHD Triglyceride [Mass/Vol] 107 mg/dL NINF - 150 mg/dL [facility] No Panel Informationon 03-03 Interpretation and review of laboratory results Abnormal [facility] VITAMIN D DEFICIENCY SCREENI NG (VIT D 25)on 03-03-2024 VIT D 25-OH, TOTAL 65 ng/mL Normal 30-100 [facility] Comment on above: Result Comment: JOHN PAUL Luo COMMENTS: Therapy is based on measurement of Total 25-OHD with the following classification levels: Less than 20 ng/mL: Indicative of Vit D deficiency 20-30 ng/mL: Suggests Vit D insufficiency Optimal: Greater than or equal to 30 ng/mL Test performed by [employer] Immunoassay, measuring Total Vitamin D, not individual fractions. Performed By: #### L [id number] #### Rn Cardiovascular Icu: MAT HOLLIDAY ([id number]) [facility] (SBHLAB) [address] [place] [address] [place] Vitamin D Deficiency Screeni ng (Vit D 25)on 03-03-2024 25-hydroxyvitamin D3 [Mass/Vol] 65 ng/mL 30 - 100 ng/mL MD On-Line Surgical Tissue Examon 09-07 Surgical Tissue Exam Test performed at [facility] [address] [address] NAME: TENA CANNON REQUESTING: MARBELLA BRUNSON M.D. FINAL DIAGNOSIS: A) STOMACH, POLYP, BIOPSY - FUNDIC GLAND POLYP. 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 NEGATIVE FOR HELICOBACTER PYLORI ORGANISMS. SEE COMMENT. B) DISTAL ESOPHAGUS, BIOPSY - SQUAMOCOLUMNAR JUNCTION WITH ACUTELY INFLAMED GASTRIC CARDIA-TYPE EPITHELIUM. -UNREMARKABLE SQUAMOUS EPITHELIUM. -NEGATIVE FOR INTESTINAL METAPLASIA OR DYSPLASIA. -FRAGMENT OF GASTRIC ANTRAL- TYPE MUCOSA WITH CHRONIC INACTIVE GASTRITIS. Comment: An immunostain for Helicobacter pylori organisms was performed on part A and is negative. Laboratory Developed Test (LDT) Disclaimer: Positive and negative controls stain appropriately. Performance characteristics of immunohistochemical tests have been determined by [facility]'s Department of Pathology and Laboratory Medicine in a manner consistent with CLIA requirements. One or more of these tests have not been cleared or approved by the FDA. [facility] is regulated under CLIA as qualified to perform high-complexity testing. These tests are useful for clinical purposes. They should not be regarded as investigational or for research. OPERATIVE PROCEDURE: EGD CLINICAL INFORMATION: Epi gastr pain, gastric polyp, short seg Landaverde's GROSS DESCRIPTION: A) Gastric polyp Received in formalin labeled gastric polyp are two segments of mcgill-brown soft tissue aggregating to 0.6 x 0.1 x 0.1 cm. The specimen is totally submitted in one cassette. Levels x 2. B) Dist esoph bx r/o Landaverde's Received in formalin labeled distal esophagus biopsy are two segments of mcgill-pink soft tissue aggregating to 0.6 x 0.1 x 0.1 cm. The specimen is totally submitted in one cassette. Levels x 2. [facility]:heriberto FATIMA M.D. (Electronic signature on file) Signed out: 09/09/2018 17:25 PRINTED: 09/09/2018 Page 1 of 1 Normal [facility] Comment on above: Performed By: #### S URG #### [facility] [address] [address] Hemogramon 08-05-2018 Erythrocyte distribution width Auto Ratio (RBC) 13.7 % Normal 11.5-14.5 [facility] Comment on above: Performed By: #### H EMOG ####[facility] [place] [address] Hematocrit Auto Volume Fraction (Bld) 40.1 % Normal 35.0-47.0 [facility] Comment on above: Performed By: #### H EMOG ####[facility] [place] [address] Hemoglobin mass conc (Bld) 13.0 g/dL Normal 11.7-16.0 [facility] Comment on above: Performed By: #### H EMOG ####[facility] [place] [address] MCH Auto Entitic mass (RBC) 29.0 pg Normal 26.0-34.0 [facility] Comment on above: Performed By: #### H EMOG ####[facility] [place] [address] MCHC Auto mass conc (RBC) 32.4 % Normal 32.0-36.0 [facility] Comment on above: Performed By: #### H EMOG ####[facility] [place] [address] MCV Auto Entitic volume (RBC) 89.5 fL Normal 79.0-98.0 [facility] Comment on above: Performed By: #### H EMOG ####[facility] [place] [address] Platelet mean volume Auto Entitic volume (Bld) 8.7 fL Normal 7.4-10.4 [facility] Comment on above: Performed By: #### H EMOG ####[facility] [place] [address] Platelets Auto #/vol (Bld) 260 10*3/uL Normal 140-440 [facility] Comment on above: Performed By: #### H EMOG ####[facility] [place] [address] RBC Auto #/vol (Bld) 4.48 10*6/uL Normal 3.80-5.20 [facility] Comment on above: Performed By: #### H EMOG ####[facility] [place] [address] WBC Auto #/vol (Bld) 5.7 10*3/uL Normal 3.6-10.7 [facility] Comment on above: Performed By: #### H EMOG ####[facility] [place] [address] Hemogramon 05-15-2018 Erythrocyte distribution width Auto Ratio (RBC) 13.4 % Normal 11.5-14.5 [facility] Comment on above: Performed By: #### H EMOG, FEIBC ####[facility] [place] [address] Hematocrit Auto Volume Fraction (Bld) 37.2 % Normal 35.0-47.0 [facility] Comment on above: Performed By: #### H EMOAileen, FEIBC ####[facility] [place] [address] Hemoglobin mass conc (Bld) 12.8 g/dL Normal 11.7-16.0 [facility] Comment on above: Performed By: #### H EMOG, FEIBC ####[facility] [place] [address] MCH Auto Entitic mass (RBC) 30.5 pg Normal 26.0-34.0 [facility] Comment on above: Performed By: #### H EMOG, FEIBC ####[facility] [place] [address] MCHC Auto mass conc (RBC) 34.3 % Normal 32.0-36.0 [facility] Comment on above: Performed By: #### H EMOG, FEIBC ####[facility] [place] [address] MCV Auto Entitic volume (RBC) 88.8 fL Normal 79.0-98.0 [facility] Comment on above: Performed By: #### H JOSE FEIBC ####[facility] [place] [address] Platelet mean volume Auto Entitic volume (Bld) 9.0 fL Normal 7.4-10.4 [facility] Comment on above: Performed By: #### H JOSE, FEIBC ####[facility] [place] [address] Platelets Auto #/vol (Bld) 199 10*3/uL Normal 140-440 [facility] Comment on above: Performed By: #### H EMOAileen FEIBC ####[facility] [place] [address] RBC Auto #/vol (Bld) 4.19 10*6/uL Normal 3.80-5.20 [facility] Comment on above: Performed By: #### H JOSE FEIBC ####[facility] [place] [address] WBC Auto #/vol (Bld) 7.1 10*3/uL Normal 3.6-10.7 [facility] Comment on above: Performed By: #### H JOSE FEIBC ####[facility] [place] [address] Iron AND TIBCon 05-15-2018 Saturation 13 % Low 15-50 [facility] Comment on above: Performed By: #### H JOSE FEIBC ####[facility] [address] Total Iron Binding Cap. 269 ug/dL Normal 261-497 [facility] Comment on above: Performed By: #### H EMOAileen FEIBC ####[facility] [place] [place] [address] Iron, Total 35 ug/dL Low 37-170 [facility] Comment on above: Performed By: #### H EMOAileen FEIBC ####[address] [address] [place] [address] Vital Signs Date Time Vital Sign Value Performing Clinician Amando orellana 02-18-2025 13:04-0400 Body height 142.24 cm Chey Kumar MD [facility] 02-15-2025 17:53-0400 Body height 142.24 cm Chey Kumar MD [facility] 02-15-2025 17:51-0400 Body height 142.24 cm Chey Kumar MD [facility] 02-15-2025 17:27-0400 Body height 142.24 cm Chey Kumar MD [facility] 02-07-2025 11:01-0400 Body temperature 97.11 [degF] Narciso Sherman PA-C Work Phone: [facility] 02-07-2025 11:01-0400 Diastolic blood pressure 72 mm[Hg] Narciso Sherman PA-C Work Phone: [facility] 02-07-2025 11:01-0400 Heart rate 102 /min Narciso Sherman PA-C Work Phone: [facility] 02-07-2025 11:01-0400 Respiratory rate 14 /min Narciso Sherman PA-C Work Phone: [facility] 02-07-2025 11:01-0400 SaO2% (BldA) [Mass fraction] 96 % Narciso Sherman PA-C Work Phone: [facility] 02-07-2025 11:01-0400 Systolic blood pressure 110 mm[Hg] Narciso Sherman PA-C Work Phone: [facility] 09-16-2024 11:44-0500 Diastolic blood pressure 70 mm[Hg] Sahra Guy MD Work Phone: [facility] 09-16-2024 11:44-0500 Systolic blood pressure 112 mm[Hg] Sahra Guy MD Work Phone: [facility] 09-16-2024 11:28-0500 Heart rate 76 /min Sahra Guy MD Work Phone: [facility] 08-23-2024 10:39-0500 Diastolic blood pressure 74 mm[Hg] Sahra Guy MD Work Phone: [facility] 08-23-2024 10:39-0500 Systolic blood pressure 116 mm[Hg] Sahra Guy MD Work Phone: [facility] 08-23-2024 10:07-0500 Body height 142.2 cm Sahra Guy MD Work Phone: [facility] 08-23-2024 10:07-0500 Heart rate 60 /min Sahra Guy MD Work Phone: [facility] 08-23-2024 10:07-0500 SaO2% (BldA) [Mass fraction] 95 % Sahra Guy MD Work Phone: [facility] 08-11-2024 13:37-0500 Diastolic blood pressure 77 mm[Hg] Leonid Leal TEST TECH.APPLIED STATISTICIAN Work Phone: [facility] 08-11-2024 13:37-0500 Heart rate 66 /min Leonid Leal TEST TECH.CN P Work Phone: [facility] 08-11-2024 13:37-0500 SaO2% (BldA) [Mass fraction] 98 % Leonid Leal TEST TECH.APPLIED STATISTICIAN Work Phone: [facility] 08-11-2024 13:37-0500 Systolic blood pressure 146 mm[Hg] Leonid Leal TEST TECH.APPLIED STATISTICIAN Work Phone: [facility] 12-10-2023 09:18-0400 Body height 142.2 cm Sahra Guy MD Work Phone: [facility] 12-10-2023 09:18-0400 Diastolic blood pressure 81 mm[Hg] Sahra Guy MD Work Phone: [facility] 12-10-2023 09:18-0400 Heart rate 68 /min Sahra Guy MD Work Phone: [facility] 12-10-2023 09:18-0400 SaO2% (BldA) [Mass fraction] 98 % Sahra Guy MD Work Phone: [facility] 12-10-2023 09:18-0400 Systolic blood pressure 156 mm[Hg] Sahra Guy MD Work Phone: [facility] 04-03-2023 13:58-0400 Body height 139.7 cm Ken Trent MD Work Phone: [facility] 04-03-2023 13:58-0400 Diastolic blood pressure 90 mm[Hg] Ken Trent MD Work Phone: [facility] 04-03-2023 13:58-0400 Heart rate 69 /min Ken Trent MD Work Phone: [facility] 04-03-2023 13:58-0400 Systolic blood pressure 137 mm[Hg] Ken Trent MD Work Phone: [facility] 03-10-2023 09:59-0400 Body height 142.2 cm Sahra Guy MD Work Phone: [facility] 03-10-2023 09:59-0400 Diastolic blood pressure 67 mm[Hg] Sahra Guy MD Work Phone: [facility] 03-10-2023 09:59-0400 Heart rate 70 /min Sahra Guy MD Work Phone: [facility] 03-10-2023 09:59-0400 SaO2% (BldA) [Mass fraction] 96 % Sahra Guy MD Work Phone: [facility] 03-10-2023 09:59-0400 Systolic blood pressure 146 mm[Hg] Sahra Guy MD Work Phone: [facility] 10-29-2021 10:36-0400 Diastolic blood pressure 60 mm[Hg] Sahra Guy MD Work Phone: [facility] 10-29-2021 10:36-0400 Systolic blood pressure 120 mm[Hg] Sahra Guy MD Work Phone: [facility] 10-29-2021 09:52-0400 Heart rate 71 /min Sahra Guy MD Work Phone: [facility] Encounters Encounter Date Encounter Type Care Provider Facility Start: 03-22-2025 End: 03-22-2025 Telephone encounter Sahra Guy MD Work Phone: [facility] Comment on above: FYI-No Action Needed Start: 03-07-2025 ambulatory Chey Kumar OLS Fa cility:[facility] Start: 03-07-2025 Registered Referred Chey Kumar MD [facility] Start: 02-28-2025 ambulatory Efewbrittany Menge OLS Fa cility:[facility] Start: 02-28-2025 Registered Referred Chey Kumar MD [facility] Start: 02-21-2025 ambulatory Efewbrittany Kumar OLS Fa cility:[facility] Start: 02-21-2025 Registered Referred Chey Kumar MD [facility] Start: 02-14-2025 End: 02-14-2025 ambulatory Chey Kumar MD [facility] Start: 02-14-2025 End: 02-14-[address] Chey Kumar MD -[facility] Work Phone: Start: 02-14-2025 ambulatory Chey Kumar OLS Fa cility:[facility] Start: 02-14-2025 Registered Referred Chey Kumar MD [facility] Start: 02-10-2025 End: 02-14-2025 Telephone encounter Marilyn Santos PA-C Work Phone: Urology Comment on above: Results; Orders Start: 02-09-2025 End: 02-09-2025 Orders Only Marilyn Santos PA-C Work Phone: Urology Start: 02-09-2025 Registered Referred Chey Kumar MD [facility] Start: 02-08-2025 End: 02-08-2025 Telephone encounter Narciso Sherman PA-C Work Phone: Urology Comment on above: Polisher Dial - O ther Start: 02-07-2025 End: 02-07-2025 Patient encounter procedure Narciso Sherman PA-C Work Phone: Urology Comment on above: Urinary tract infect ion without hematuria, site unspecified (Primary Dx); Frequent urination; Burning with urination; Compression fracture of thoracic vertebra with routine healing, unspecified thoracic vertebral level, subsequent encounter; Screening for genitourinary condition Start: 02-07-2025 End: 02-07-2025 ambulatory Chey THOMAS Facility:[facility] Start: 02-07-2025 Registered Referred Chey Bell Start: 02-06-2025 End: 02-07-2025 Chart abstracting Narciso Sherman PA-C Work Phone: Urology Start: 01-31-2025 ambulatory Chey THOMAS Fa cility:[facility] Start: 01-31-2025 Registered Referred Chey Bell Start: 01-24-2025 End: 01-24-2025 Patient encounter procedure Roxanne [facility] Work Phone: Start: 01-24-2025 End: 01-24-2025 ambulatory [facility] Start: 01-24-2025 Registered Referred Chey Bell Start: 01-19-2025 End: 01-19-20[facility] Start: 01-19-2025 End: 01-19-2025 Patient encounter procedure [facility] Work Phone: Start: 01-17-2025 ambulatory [place]field THOMAS Fa cility:[facility] Start: 01-17-2025 Registered Referred Chey Bell Start: 01-10-2025 End: 01-10-2025 Patient encounter procedure Roxanneluz elena Padilla [facility] Work Phone: Start: 01-10-2025 End: 01-10-2025 ambulatory Roxanne Padilla [facility] Start: 01-10-2025 Registered Referred Chey Bell Start: 01-09-2025 End: 02-18-2025 ambulatory Lionel Joiner MA [facility] [place] Start: 01-09-2025 End: 02-18-2025 Patient encounter procedure Lionel Joiner MA [facility] [place] Comment on above: Population Health Na vigation Outreach ([facility] Start: 01-03-2025 ambulatory Chey THOMAS Fa cility:[facility] Start: 01-03-2025 Registered Referred Chey Bell Start: 12-28-2024 End: 12-28-2024 [facility] Start: 12-28-2024 End: 12-28-2024 ambulatory Roxanne Padilla [facility] Start: 12-28-2024 Registered Referred Chey Bell Start: 12-27-2024 ambulatory Chey THOMAS Fa cility:[facility] Start: 12-27-2024 Registered Referred Chey Bell Start: 12-22-2024 End: 12-22-2024 ambulatory Roxanne Padilla [facility] Start: 12-22-2024 End: 12-22-2024 Patient encounter procedure Roxanne Pad[facility] Work [facility]: Start: 12-20-2024 End: 12-20-[address] Chey Kumar MD -[facility] Work Phone: Start: 12-20-2024 End: 12-20-2024 ambulatory Chey Kumar -[facility] Start: 12-20-2024 Registered Referred Chey Kumar MD -[facility] Start: 12-12-2024 End: 12-19-2024 Evaluation and management of inpatient SAHRA GUY Facility:[facility] Start: 12-08-2024 End: 12-10-2024 ambulatory Sahra Guy MD Work Phone: [facility] Comment on above: nausea and barely ea ting Start: 12-08-2024 End: 12-09-2024 Telephone encounter Sahra Guy MD Work Phone: [facility] Comment on above: Insurance Authorizat ion Start: 12-07-2024 End: 12-08-2024 Telephone encounter Sahra Guy MD Work Phone: [facility] Comment on above: Medication Problem ( Lidocaine 5% is covered, not the 4%) Start: 12-02-2024 End: 12-08-2024 ambulatory Sahra Guy MD Work Phone: [facility] Comment on above: Nurse Triage Call; P atient Update Start: 11-30-2024 End: 11-30-2024 ambulatory Sahra Guy MD Work Phone: [facility] Comment on above: Allied Health Visit (Medication Adherence Outreach ) Start: 10-24-2024 End: 10-24-2024 Telephone encounter Sahra Guy MD Work Phone: [facility] Comment on above: Received Outside Med ica Records ([facility] OT Evaluation performed no further treatment. 10/20/2024) Start: 10-19-2024 End: 10-19-2024 Telephone encounter Sahra Guy MD Work Phone: [facility] Comment on above: Orders ([facility]) Start: 10-12-2024 End: 10-12-2024 Telephone encounter Sahra Guy MD Work Phone: [facility] Comment on above: PT Eval Start: 10-11-2024 End: 10-11-2024 Telephone encounter Sahra Guy MD Work Phone: [facility] Comment on above: Orders Start: 10-06-2024 End: 11-12-2024 Telephone encounter Sahra Guy MD Work Phone: [facility] Comment on above: Patient Question (Sl ipped in shower) Start: 09-23-2024 End: 09-26-2024 ambulatory Sahra Guy MD Work Phone: [facility] Comment on above: Nurse Triage Call; R eturn Call Request Start: 09-23-2024 End: 09-23-2024 Telephone encounter Sahra Guy MD Work Phone: [facility] Comment on above: Received Outside [facility] Records ([facility] Face to Face Encounter Documentation encounter 08/23/2024) Start: 09-16-2024 End: 09-16-2024 ambulatory SAHRA GYU Facility:[facility] Start: 09-16-2024 End: 09-16-2024 Office outpatient visit 25 minutes Sahra Guy MD Work Phone: [facility] Comment on above: Falling episodes (Pr imary Dx); Acute left-sided low back pain with left-sided sciatica; Fall from motorized wheelchair, initial encounter; Post-polio syndrome; Neck pain, chronic; Chronic hand pain, unspecified laterality Start: 09-09-2024 End: 12-09-2024 Telephone encounter Sahra Guy MD Work Phone: [facility] Comment on above: Orders; Patient Upda te (Lab orders were faxed) Hyperglycemia, unspe cified (Primary Dx); Mixed hyperlipidemia Start: 09-09-2024 End: 09-09-2024 ambulatory SAHRA GUY [facility] Start: 09-02-2024 End: 09-02-2024 Telephone encounter Sahra Guy MD Work Phone: [facility] Comment on above: Results (Labs) Start: 09-01-2024 End: 09-06-2024 Telephone encounter Sahra Guy MD Work Phone: [facility] Comment on above: Office Notes Returning Patient's Call Start: 08-31-2024 End: 11-12-2024 Telephone encounter Sahra Guy MD Work Phone: [facility] Comment on above: Results (Lab tests) Start: 08-24-2024 End: 08-24-2024 Telephone encounter Sahra Guy MD Work Phone: [facility] Comment on above: Orders ([facility] Start: 08-23-2024 End: 08-23-2024 ambulatory SAHRA GUY Facility:[facility] Start: 08-23-2024 End: 08-23-2024 Patient encounter procedure Sahra Guy MD Work Phone: [facility] Comment on above: Medicare annual well ness visit, subsequent (Primary Dx); Obesity, Class III, 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); 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); Post-polio syndrome; Hyperlipidemia, mixed; Hyperglycemia; Vitamin D deficiency; Essential hypertension; Primary osteoarthritis involving multiple joints; Abnormality of gait; Falling episodes Start: 08-22-2024 End: 08-22-2024 Telephone encounter Sahra Guy MD Work Phone: [facility] Comment on above: Patient Update (At o ffice visit on 08/23/2024 please fill all Rx's that apply per patient [facility] mail order) Start: 08-15-2024 End: 08-17-2024 Telephone encounter Sahra Guy MD Work Phone: [facility] Comment on above: Orders (PT and OT) Start: 08-11-2024 End: 08-11-2024 ambulatory Sahra Guy MD Work Phone: [facility] Comment on above: Muscle Aches Start: 08-11-2024 End: 08-11-2024 Office outpatient visit 15 minutes Leonid Leal APRN.CNP Work Phone: [facility] Comment on above: Acute left-sided low back pain with left-sided sciatica (Primary Dx) Start: 07-05-2024 End: 07-05-2024 Refill Sahra Guy MD Work Phone: [facility] Comment on above: Refill Request Start: 06-23-2024 End: 06-23-2024 Telephone encounter Sahra Guy MD Work Phone: [facility] Comment on above: Orders ([facility]) Start: 06-20-2024 End: 06-20-2024 Refill Sahra Guy MD Work Phone: [facility] Comment on above: Refill Request Start: 06-02-2024 End: 06-03-2024 Telephone encounter Sahra Guy MD Work Phone: [facility] Comment on above: Question Patient Question Start: 05-18-2024 End: 05-18-2024 Telephone encounter Sahra Guy MD Work Phone: [facility] Comment on above: RSV vaccine Start: 04-06-2024 End: 04-06-2024 Refill Sahra Guy MD Work Phone: [facility] Comment on above: Refill Request Start: 03-07-2024 Telephone encounter Sahra Guy MD Work Phone: [facility] Comment on above: Results Start: 03-03-2024 End: 06-02-2024 Transcribe Orders Leonid Roach TEST TECH - APPLIED STATISTICIAN Work Phone: [facility] Comment on above: Hyperglycemia, unspe cified (Primary Dx); Mixed hyperlipidemia; Vitamin D deficiency, unspecified; Other specified disorders of bone density and structure, unspecified site Start: 02-26-2024 Telephone encounter Sahra Guy MD Work Phone: [facility] Comment on above: Orders (Labs fax to [facility]) Start: 02-23-2024 Refill Sahra reed MD Work Phone: [facility] Comment on above: Refill Request Start: 01-25-2024 Refill Sahra reed MD Work Phone: [facility] Comment on above: Refill Request Start: 01-12-2024 Refill Sahra reed MD Work Phone: [facility] Comment on above: Refill Request Start: 12-10-2023 End: 12-10-2023 Patient encounter procedure Sahra Guy MD Work Phone: [facility] Comment on above: 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); Obstructive sleep apnea on CPAP; Gastroesophageal reflux disease, unspecified whether esophagitis present; Neck pain, chronic; OAB (overactive bladder); Rosacea; Class 3 severe obesity with body mass index (BMI) of 40.0 to 44.9 in adult, unspecified obesity type, unspecified whether serious comorbidity present ([facility]); Glaucoma, unspecified glaucoma type, unspecified laterality; Restless legs syndrome (RLS) Start: 11-25-2023 Telephone encounter Sahra Guy MD Work Phone: [facility] Comment on above: Received Outside [facility] Records ([place] [facility] I Move in Assessment 11/25/2023); Patient Update Start: 07-13-2023 Refill Leonid Duggan PRN.CNP Work Phone: [facility] Comment on above: Refill Request Start: 05-08-2023 Refill Sahra reed MD Work Phone: [facility] Comment on above: Refill Request Start: 04-23-2023 End: 04-23-2023 ambulatory [facility] Comment on above: Post-polio syndrome; Poliomyelitis osteopathy of multiple sites (HCC) Start: 04-09-2023 End: 04-09-2023 Orders Only Ken Trent MD Work Phone: [facility] Comment on above: Post-polio syndrome (Primary Dx) Polisher Dial - O ther Dysphagia, unspecifi ed type (Primary Dx); Post-polio syndrome Start: 04-03-2023 End: 04-03-2023 Office outpatient new 60 minutes Ken Trent MD Work Phone: [facility] Comment on above: Post-polio syndrome (Primary Dx) Start: 03-23-2023 Telephone encounter Sahra Guy MD Work Phone: [facility] Comment on above: Orders (OT referral request [place] [facility] ) Start: 03-11-2023 Refill Sahra reed MD Work Phone: [facility] Comment on above: Refill Request Start: 03-10-2023 End: 03-10-2023 Patient encounter procedure Sahra Guy MD Work Phone: [facility] Comment on above: Post-polio syndrome (Primary Dx); Poliomyelitis osteopathy of multiple sites (HCC); Late effects of acute poliomyelitis; Obesity, Class III, BMI 40-49.9 (morbid obesity) ([facility]); 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 ([facility]); Obstructive sleep apnea on CPAP; OAB (overactive bladder); Gastroesophageal reflux disease, unspecified whether esophagitis present Start: 12-09-2022 Telephone encounter Sahra Guy MD Work Phone: [facility] Comment on above: Forms ([employer] Medical Clearance Form ) Start: 09-30-2022 Telephone encounter Sahra Guy MD Work Phone: [facility] Comment on above: medicaiton problem Start: 09-26-2022 Telephone encounter Sahra Guy MD Work Phone: [facility] Comment on above: Results Start: 09-17-2022 ambulatory Sahra reed MD Work Phone: [facility] Comment on above: Nurse Triage Call Start: 08-01-2022 Refill Sahra reed MD Work Phone: [facility] Comment on above: Refill Request Start: 07-14-2022 Telephone encounter Sahra Guy MD Work Phone: [facility] Comment on above: Received Outside Med ical Records (Health care provider certification of disability license plates. ) Start: 06-12-2022 End: 06-12-2022 ambulatory Leonid Roach APRN.CNP Work Phone: [facility] Comment on above: COVID-19 (Primary Dx ) Start: 06-12-2022 End: 06-12-2022 Telemedicine consultation with patient Leonid Roach TEST TECHDagmarAPPLIED STATISTICIAN Work Phone: [facility] Start: 06-11-2022 End: 06-11-2022 ambulatory Nurse Triage Meena/Colton Work Phone: Nurse Phone Triage Comment on above: Covid Positive Start: 06-11-2022 Telephone encounter Sahra Guy MD Work Phone: [facility] Comment on above: Covid Positive (/) Start: 04-09-2022 Telephone encounter Sahra Guy MD Work Phone: [facility] Comment on above: Results (Labs ) Start: 04-03-2022 Refill Sahra reed MD Work Phone: [facility] Comment on above: Med Change Request Start: 03-25-2022 Refill Sahra reed MD Work Phone: [facility] Comment on above: Refill Request Start: 03-19-2022 Telephone encounter Sahra Guy MD Work Phone: [facility] Comment on above: Orders (Thyroid/); P atient Question (Draw labs at the office/) Start: 12-19-2021 Telephone encounter Sahra Guy MD Work Phone: [facility] Comment on above: Request for PCP sign off (from [facility]) Start: 12-13-2021 ambulatory Nopcp (Historical) [facility] [place] Start: 12-04-2021 Telephone encounter Sahra Guy MD Work Phone: [facility] Comment on above: Orders ([facility] 11/05/2021 - 11/25/2021) Home Care Start: 12-02-2021 Telephone encounter Sahra Guy MD Work Phone: [facility] Comment on above: Patient Update (Upda te and orders signed and faxed to [facility]. ) Start: 11-28-2021 Telephone encounter Sahra Guy MD Work Phone: Family [facility] Comment on above: Received Outside Med ical Records ([facility] Discharge summary 11/28/2021) Start: 11-21-2021 Telephone encounter Sahra Guy MD Work Phone: [facility] Comment on above: Orders ([facility] 11/21/2021) Start: 11-20-2021 Telephone encounter Sahra Guy MD Work Phone: [facility] Comment on above: Patient Update Start: 11-05-2021 Telephone encounter Sahra Guy MD Work Phone: [facility] Comment on above: Patient Update Start: 10-31-2021 Telephone encounter Leonid rutledge TEST TECH.APPLIED STATISTICIAN Work Phone: [facility] Comment on above: Results Start: 10-29-2021 End: 10-29-2021 Patient encounter procedure Sahra Guy MD Work Phone: [facility] Comment on above: Poliomyelitis osteop athy of multiple sites (HCC) (Primary Dx); Acute pain of right knee; Post-polio syndrome; 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 Facility:[facility] Start: 08-05-2018 Patient encounter procedure UNKNOWN PROVIDER [facility] Start: 05-15-2018 Patient encounter procedure UNKNOWN PROVIDER [facility] Start: 10-03-2017 Patient encounter procedure UNKNOWN PROVIDER [facility] Procedures Date Procedure Procedure Detail Performing Clinician Start: 02-28-2025 Total iron binding capacity measurement Chey Kumar MD Start: 02-28-2025 Vitamin D, 25-hydrox y measurement Chey Kumar MD Comment on above: Vitamin D StatusDefi ciency: <20 ng/mL (50nmol/L)Insufficiency: 20-30 ng/mL (50-75 nmol/L)Sufficiency: 30-100 ng/mL (75-250 nmol/L)Toxicity: >100 ng/mL (>250 nmol/L) Start: 02-07-2025 Urnls dip stick/tabl et rgnt auto w/o microscopy Narciso Sherman PA-C Work Phone: Start: 01-10-2025 Urnls dip stick/tabl et reagent auto microscopy Chey Kumra MD Start: 12-28-2024 Urine culture Chey Kumar MD Start: 12-28-2024 Urnls dip stick/tabl et reagent auto microscopy Chey Kumar MD Start: 12-27-2024 Vitamin D, 25-hydrox y measurement Chey Kumar MD Comment on above: Vitamin D StatusDefi ciency: <20 ng/mL (50nmol/L)Insufficiency: 20-30 ng/mL (50-75 nmol/L)Sufficiency: 30-100 ng/mL (75-250 nmol/L)Toxicity: >100 ng/mL (>250 nmol/L) Start: 09-09-2024 Lipid 1996 panel - S daniella or Plasma Sahra Guy Work Phone: Start: 08-25-2024 CBC + DIFF [facility] Provid er Start: 08-25-2024 Hemoglobin A1c/Hemoglobin.total in Blood [facility] Provider Start: 08-25-2024 LIPID PANEL, FASTING Cc f Provider Start: 03-03-2024 Lipid 1996 panel - S daniella or Plasma Leonid Roach TEST TECH - APPLIED STATISTICIAN Work Phone: Start: 12-10-2023 Adult depression scr eening assessment Sahra Guy MD Work Phone: Plan of Treatment Date Care Activity Detail Author Start: 09-09-2029 Lipid panel Lipid Panel [facility] Start: 03-03-2029 Lipid panel Lipid Panel [facility] Start: 12-20-2027 Diabetes Screening Diabetes Screening [facility] Start: 12-09-2027 Diabetes Screening Diabetes Screening [facility] Start: 09-09-2027 Diabetes Screening Diabetes Screening [facility] Start: 08-25-2027 Diabetes Screening Diabetes Screening [facility] Start: 03-03-2027 Diabetes Screening Diabetes Screening [facility] Start: 09-25-2025 DIABETES SCREEN DIABETES SCREEN [facility] Start: 09-25-2025 Diabetes Screening Diabetes Screening [facility] Start: 09-22-2025 Medicare Annual Wellness (AWV) Medicare Annual Wellness (AWV) [facility] Start: 04-08-2025 DIABETES SCREEN DIABETES SCREEN [facility] Start: 04-03-2025 Influenza vaccination [facility] Start: 01-31-2025 End: 01-31-2025 Patient encounter procedure 01/31/2025 2:00 PM EDT Office Visit Urology [address] [place] [address] Nataliya Dominguez MD [address], [place] [address] Acute urinary retention [R33.8] Urology Comment on above: Acute urinary retention [R33.8] Start: 01-10-2025 End: 01-10-2025 Patient encounter procedure 01/10/2025 8:00 AM EDT Office Visit Gastroenterology [address] [place] [address] Kinjal Hernandes APRN.APPLIED STATISTICIAN [address] [place] [address] constipation Gastroenterology Comment on above: constipation Start: 01-02-2025 End: 01-02-2025 Patient encounter procedure 01/02/2025 10:30 AM EDT Office Visit Neurology [address] [place], [place] [id number] Timothy Shine MD [address] [place], [place] [id number] 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 Start: 12-14-2024 End: 12-14-2024 Patient encounter procedure 12/14/2024 3:00 PM EDT Office Visit [facility] [address] [address] Harinder Kiran, PAAnthony [address] [place] [address] Acute left-sided low back pain with left-sided sciatica [M54.42] [facility] Comment on above: Acute left-sided low back pain with left -sided sciatica [M54.42] Start: 12-09-2024 Anxiety Screening Anxiety Screening [facility] Start: 12-09-2024 Depression Screening Depression Screening [facility] Start: 11-15-2024 Covid-19 Vaccine () Covid-19 Vaccine () [facility] Start: 10-29-2024 DIABETES SCREEN DIABETES SCREEN [facility] Start: 09-15-2024 End: 09-15-2024 Patient encounter procedure 09/15/2024 9:20 AM EST Office Visit Family Practice [address] [place] [address] [place] [address] Sahra Guy MD [address] [place] [address] [place] [address] follow up Family Practice Comment on above: follow up Start: 09-13-2024 End: 09-13-2024 Patient encounter procedure 09/13/2024 10:20 AM EST Office Visit Family Practice [address] [place] [address] [place] [address] Sahra Guy MD [address] [place] [address] [place] [address] follow up Family [facility] Comment on above: follow up Start: 08-23-2024 End: 11-22-2024 Comprehensive metabolic 2000 panel - Serum or Plasma COMPREHENSIVE METABOLIC PANEL Lab Routine Hyperglycemia Expected: 08/23/2024, Expires: 11/22/2024 [facility] Work Phone: Comment on above: Expected: 08/23/2024, Expires: Start: 08-23-2024 End: 11-22-2024 Hemoglobin A1c in Blood HEMOGLOBIN A1C Lab Routine Hyperglycemia Expected: 08/23/2024, Expires: 11/22/2024 [facility] Comment on above: Expected: 08/23/2024, Expires: Start: 08-23-2024 End: 11-22-2024 Lipid 1996 panel - Serum or Plasma LIPID PANEL BASIC Lab Routine Hyperlipidemia, mixed Expected: 08/23/2024, Expires: 11/22/2024 [facility] Comment on above: Expected: 08/23/2024, Expires: Start: 08-23-2024 End: 08-23-2024 Patient encounter procedure 08/23/2024 10:00 AM EST Office Visit [address] [place], [place] [id number] Sahra Guy MD [address] [place] [address] Medicare Wellness [facility] Comment on above: Medicare Wellness Start: 08-03-2024 Advance Directive Discussion Advance Directive Discussion [facility] Start: 04-03-2024 Covid-19 Vaccine ( season) Covid-19 Vaccine () [facility] Start: 04-03-2024 Covid-19 Vaccine () Covid-19 Vaccine () [facility] Start: 04-03-2024 Influenza vaccination [facility] Start: 02-23-2024 End: 05-24-2024 25-hydroxyvitamin D3 [Mass/volume] in Serum or Plasma VITAMIN D 25 HYDROXY Lab Routine Vitamin D deficiency Expected: 02/23/2024, Expires: 05/24/2024 [facility] Comment on above: Expected: 02/23/2024, Expires: Start: 02-23-2024 End: 05-24-2024 CBC panel - Blood by Automated count COMPLETE BLOOD COUNT Lab Routine Osteopenia, unspecified location Expected: 02/23/2024, Expires: 05/24/2024 [facility] Comment on above: Expected: 02/23/2024, Expires: Start: 02-23-2024 End: 05-24-2024 Comprehensive metabolic 2000 panel - Serum or Plasma COMPREHENSIVE METABOLIC PANEL Lab Routine Hyperglycemia Hyperlipidemia, mixed Expected: 02/23/2024, Expires: 05/24/2024 [facility] Comment on above: Expected: 02/23/2024, Expires: Start: 02-23-2024 End: 05-24-2024 Hemoglobin A1c in Blood HEMOGLOBIN A1C Lab Routine Hyperglycemia Expected: 02/23/2024, Expires: 05/24/2024 [facility] Work Phone: Comment on above: Expected: 02/23/2024, Expires: 4 Start: 02-23-2024 End: 05-24-2024 Lipid 1996 panel - Serum or Plasma LIPID PANEL BASIC Lab Routine Hyperlipidemia, mixed Expected: 02/23/2024, Expires: 05/24/2024 [facility] Comment on above: Expected: 02/23/2024, Expires: Start: 10-04-2023 Covid-19 Vaccine () Covid-19 Vaccine () [facility] Start: 09-25-2023 Urine microalbumin profile [facility] Comment on above: Postponed from 03/11/2014 (Declined at t his time) Start: 08-30-2023 DIABETES SCREEN DIABETES SCREEN [facility] Start: 08-03-2023 Advance Directive Discussion Advance Directive Discussion [facility] Start: 08-03-2023 Behavioral Health Screening Behavioral Health Screening [facility] Start: 04-03-2023 Covid-19 Vaccine () Covid-19 Vaccine () [facility] Start: 04-03-2023 End: 06-03-2023 Creatine kinase [Enzymatic activity/volume] in Serum or Plasma [facility] Work Phone: Comment on above: Expected: 04/03/2023, Expires: 3 Start: 04-03-2023 Influenza vaccination [facility] Start: 09-29-2022 COVID-19 VACCINE (6 - Pfizer series) COVID-19 VACCINE (6 - Pfizer series) [facility] Start: 08-03-2022 ADVANCE DIRECTIVE DISCUSSION ADVANCE DIRECTIVE DISCUSSION [facility] Start: 08-03-2022 DEPRESSION ASSESSMENT DEPRESSION ASSESSMENT [facility] Start: 04-03-2022 Influenza vaccination INFLUENZA (#1) [facility] Start: 10-02-2021 COVID-19 VACCINE (4 - Booster for Pfizer series) COVID-19 VACCINE (4 - Booster for Pfizer series) [facility] Start: 08-03-2021 ADVANCE DIRECTIVE DISCUSSION ADVANCE DIRECTIVE DISCUSSION [facility] Start: 08-03-2021 DEPRESSION ASSESSMENT DEPRESSION ASSESSMENT [facility] Start: 03-11-2014 DTaP/Tdap/Td Vaccines (1 - Tdap) DTaP/Tdap/Td Vaccines (1 - Tdap) [facility] Start: 03-11-2014 Urine microalbumin profile [facility] Start: 2013 RSV Immunization for Adults (1 - 1-dose 75+ series) RSV Immunization for Adults (1 - 1-dose 75+ series) [facility] Start: 2013 RSV Vaccine (1 - 1-dose 75+ series) RSV Vaccine (1 - 1-dose 75+ series) [facility] Start: 1998 RSV Vaccine (1 - 1-dose 60+ series) RSV Vaccine (1 - 1-dose 60+ series) [facility] Start: 1950 Depression Screening Depression Screening [facility] Start: 1938 Medicare Annual Wellness (AWV) Medicare Annual Wellness (AWV) [facility] Start: 1938 Screening for osteoporosis Bone Density Scan [facility] Bacteria identified in Urine by Culture BACTERIAL CULTURE, URINE Microbiology Routine Burning with urination 02/07/2025 11:40 AM EDT [facility] Work Phone: CBC panel - Blood by Automated count CBC Lab Today History of iron deficiency anemia Ordered: 10/29/2021 [facility] Work Phone: Comment on above: Ordered: 10/29/2021 Comprehensive metabolic 2000 panel - Serum or Plasma COMP METABOLIC PANEL Lab Today Poliomyelitis osteopathy of multiple sites (HCC) Ordered: 10/29/2021 [facility] Work Phone: Comment on above: Ordered: 10/29/2021 IRON + TIBC IRON + TIBC Lab Today History of iron deficiency anemia Ordered: 10/29/2021 [facility] Work Phone: Comment on above: Ordered: 10/29/2021 LIPID PANEL BASIC LIPID PANEL BA SIC Lab Today Screening for lipid disorders Ordered: 10/29/2021 [facility] Work Phone: Comment on above: Ordered: 10/29/2021 OUTSIDE PROCEDURE SCAN OUTSIDE PROCEDURE SCAN Procedures Ordered: 09/09/2024 [facility] Comment on above: Ordered: 09/09/2024 End: 11-28-2022 XR KNEE LIMITED 2V AP/LAT RIGHT XR KNEE LIMITED 2V AP/LAT RIGHT Radiology Routine Acute pain of right knee 1 Occurrences starting 10/29/2021 until 11/28/2022 [facility] Work Phone: Comment on above: 1 Occurrences starting 10/29/2021 until 11/28/2022 End: 10-26-2025 XR Lumbar spine 3 Views XR LUMBAR GENERAL 3V AP/LAT/L5-S1 Radiology Routine Acute left-sided low back pain, unspecified whether sciatica present Left hip pain 1 Occurrences starting 09/26/2024 until 10/26/2025 [facility] Comment on above: 1 Occurrences starting 09/26/2024 until 10/26/2025 End: 10-26-2025 XR Pelvis and Hip - left AP and Lateral frog XR HIP GENERAL 3V PELV/AP/LAT LEFT Radiology Routine Left hip pain 1 Occurrences starting 09/26/2024 until 10/26/2025 [facility] Work Phone: Comment on above: 1 Occurrences starting 09/26/2024 until 10/26/2025 [facility] Immunizations Immunization Date Immunization Notes Care Provider [facility] 05-02-2024 influenza virus vacc ine, unspecified formulation Narciso Sherman PA-C Work Phone: [facility] 04-22-2023 influenza virus vacc ine, unspecified formulation Sahra Guy MD Work Phone: [facility] 04-08-2022 influenza, high-dose , quadrivalent vaccine (FLUZONE HIGH DOSE QUADRIVALENT) Sahra uGy MD Work Phone: [facility] 04-08-2022 influenza virus vacc ine, unspecified formulation Jeannette Melgar [facility] 05-03-2021 influenza, high-dose , quadrivalent vaccine (FLUZONE HIGH DOSE QUADRIVALENT) Sahra Guy MD Work Phone: [facility] 06-21-2020 zoster vaccine recombinant Sahra Guy MD Work Phone: [facility] 04-25-2020 influenza, high-dose , quadrivalent vaccine (FLUZONE HIGH DOSE QUADRIVALENT) Sahra Guy MD Work Phone: [facility] 04-19-2020 zoster vaccine recombinant Sahra Guy MD Work Phone: [facility] 05-17-2019 influenza, high dose seasonal, preservative-free Sahra Guy MD Work Phone: [facility] 05-20-2018 influenza, high dose seasonal, preservative-free Sahra Guy MD Work Phone: [facility] 05-20-2018 pneumococcal polysaccharide vaccine, 23 valent Sahra Guy MD Work Phone: [facility] 05-25-2017 influenza, high dose seasonal, preservative-free Sahra Guy MD Work Phone: [facility] 05-14-2017 influenza, injectabl e, quadrivalent, contains preservative Sahra Guy MD Work Phone: [facility] 05-24-2015 influenza, injectable,quadrivalent, preservative free, pediatric Sahra Guy MD Work Phone: [facility] 12-13-2014 pneumococcal conjuga te vaccine, 13 valent Sahra Guy MD Work Phone: [facility] 03-10-2014 TD(adult) unspecifie d formulation Sahra Guy MD Work Phone: [facility] 03-10-2014 tetanus and diphther ia toxoids, adsorbed, preservative free, for adult use (2 Lf of tetanus toxoid and 2 Lf of diphtheria toxoid) Chey Kumar MD [facility] 05-04-2012 influenza virus vacc ine, unspecified formulation Sahra Guy MD Work Phone: [facility] 05-27-2011 influenza virus vacc ine, unspecified formulation Sahra Guy MD Work Phone: [facility] Work Phone: 05-27-2011 zoster vaccine, live Sahra Guy MD Work Phone: [facility] Work Phone: 05-15-2010 influenza virus vacc ine, unspecified formulation Sahra Guy MD Work Phone: [facility] 04-30-2009 influenza virus vacc ine, unspecified formulation Sahra Guy MD Work Phone: [facility] Work Phone: 05-10-2008 influenza virus vacc ine, unspecified formulation Sahra Guy MD Work Phone: [facility] Work Phone: 06-08-2007 influenza virus vacc ine, whole virus Sahra Guy MD Work Phone: [facility] 06-03-2006 influenza virus vacc ine, unspecified formulation Sahra Guy MD Work Phone: [facility] Work Phone: 07-30-2005 tetanus and diphther ia toxoids, adsorbed, preservative free, for adult use (2 Lf of tetanus toxoid and 2 Lf of diphtheria toxoid) Sahra Guy MD Work Phone: [facility] Work Phone: 07-31-2002 pneumococcal polysaccharide vaccine, 23 valent Sahra Guy MD Work Phone: [facility] Work Phone: Payers Date Payer Category Payer Medicare [id number] 2024 Self-pay 2024 Commercial Managed C are - PPO [employer] PPO [id number] 2024 Medicare (Managed Care) JHONATHAN MOODY [id number] 2024 Private Health Insurance [id number] 2023 Commercial Managed C are - O [facility] [id number] 2012 Private Health Insurance 2012 Private Health Insurance [facility] INDEMNITY GENERIC [id number] 2012-Present [phone] [address] [address] [place] [address] Indemnity [id number] 2011 Private Health Insurance [id number] 2001 Medicare 2001 Medicare MEDICARE MEDICAR E A AND B [id number] 2001-Present [phone] [address] [address] [place] [address] Medicare [id number] 2001 Medicare [id number] 1938 Unknown [id number] 1938 Unknown [id number] 1938 Unknown [id number] 1938 Unknown [id number] Unknown [id number] 2.16.840.1.516565.3.579.2. 462 Unknown [id number] 2.16.840.1.179156.3.579.2. 462 Unknown [id number] 2.16.840.1.694732.3.579.2. 462 Unknown [id number] 2.16.840.1.655220.3.579.2. 462 Unknown [id number] 2.16.840.1.998380.3.579.2. 462 Unknown [id number] 2.16.840.1.465078.3.579.2. 462 Unknown [id number] 2.16.840.1.492495.3.579.2. 462 Unknown [id number] 2.16.840.1.555706.3.579.2. 462 Unknown [id number] 2.16.840.1.687038.3.579.2. 462 Unknown [id number] 2.16.840.1.434822.3.579.2. 462 Unknown [id number] 2.16.840.1.995681.3.579.2. 462 Unknown [id number] 2.16.840.1.736955.3.579.2. 462 Unknown [id number] 2.16.840.1.418929.3.579.2. 462 Unknown [id number] 2.16.840.1.034764.3.579.2. 462 Unknown [id number] 2.16.840.1.078216.3.579.2. 462 Unknown [id number] 2.16.840.1.586927.3.579.2. 462 Unknown [id number] 2.16.840.1.074498.3.579.2. 462 Unknown [id number] 2.16.840.1.646630.3.579.2. 462 Unknown [id number] 2.16.840.1.582933.3.579.2. 462 Unknown [id number] 2.16.840.1.937214.3.579.2. 462 Unknown [id number] 2.16.840.1.577018.3.579.2. 462 Unknown [id number] 2.16.840.1.536560.3.579.2. 462 Social History Date Type Detail Facility Start: 02-20-2016 End: 04-08-2022 Tobacco smoking status NHIS Never smoked tobacco [facility] Work Phone: Start: 02-20-2016 End: 04-08-2022 Tobacco use and exposure Smokeless tobacco non-user [facility] Work Phone: Start: 10-29-2021 End: 02-07-2025 Alcohol intake Current drinker of alcohol (finding) [facility] Start: 02-15-2025 History SDOH Alcohol Comment [facility] Start: 02-20-2016 End: 04-08-2022 Tobacco Comment second hand smoke exposure. [facility] Start: 1940 Sex Assigned At Not on file [facility] Start: 10-19-2021 End: 04-08-2022 Exposure to SARS-CoV-2 (event) Not sure [facility] History of tobacco use Passive smoker [facility] Work Phone: Start: 06-01-2022 End: 06-11-2022 Exposure to SARS-CoV-2 (event) Yes [facility] Start: 03-10-2023 End: 01-31-2025 History of Social function [facility] Work Phone: Start: 03-10-2023 End: 01-31-2025 Tobacco use panel [facility] Work Phone: Start: 07-04-2012 Adult Depression Screening Assessment 0 [facility] Work Phone: Start: 06-14-2014 Tobacco smoking stat [facility] Tobacco smoking consumption unknown [facility] Start: 03-03-2022 Sex Female (finding) [facility] Has the electric, Yo, oil, or water company threatened to shut off services in your home in past 12Mo No [facility] (I/We) worried eliot er (my/our) food would run out before (I/we) got money to buy more. Never true [facility] Start: 02-15-2025 Drugs Drugs [facility] Start: 02-15-2025 Lives Lives [facility] Start: 02-15-2025 Tobacco Use Tobacco Use [facility] Start: 1940 Sex Assigned At Female W [facility] Functional Status Date Assessment Result Facility 12-19-2024 Are you deaf, or do you have serious difficulty hearing No 12/19/2024 3:09 PM Theresa Gonzales RN No [facility] 12-19-2024 Are you blind, or do you have serious difficulty seeing, even when wearing glasses No 12/19/2024 3:09 PM Theresa Gonzales RN No [facility] 12-19-2024 Do you have serious difficulty walking or climbing stairs Yes 12/19/2024 3:09 PM Theresa Gonzales, HILDA Yes [facility] 12-19-2024 Do you have difficul ty dressing or bathing Yes 12/19/2024 3:09 PM Theresa Gonzales, RN Yes [facility] 12-19-2024 Because of a physica l, mental, or emotional condition, do you have difficulty doing errands alone such as visiting a physician's office or shopping Yes 12/19/2024 3:09 PM Theresa Gonzales, HILDA Yes [facility] 07-30-2018 Are you deaf, or do you have serious difficulty hearing No 07/30/2018 5:50 PM Miranda Castro, HILDA No [facility] 07-30-2018 Are you blind, or do you have serious difficulty seeing, even when wearing glasses No 07/30/2018 5:50 PM Miranda Castro, HILDA No [facility] 07-30-2018 Do you have serious difficulty walking or climbing stairs Yes 07/30/2018 5:50 PM Miranda Castro, HILDA Yes [facility] 07-30-2018 Do you have difficul ty dressing or bathing No 07/30/2018 5:50 PM Miranda Castro, HILDA No [facility] 07-30-2018 Because of a physica l, mental, or emotional condition, do you have difficulty doing errands alone such as visiting a physician's office or shopping No 07/30/2018 5:50 PM Miranda Castro RN No [facility] Mental Status Date Assessment Result Facility 12-19-2024 Because of a physica l, mental, or emotional condition, do you have serious difficulty concentrating, remembering, or making decisions Yes 12/19/2024 3:09 PM Theresa Gonzales RN Yes [facility] 07-30-2018 Because of a physica l, mental, or emotional condition, do you have serious difficulty concentrating, remembering, or making decisions No 07/30/2018 5:50 PM Miranda Castor RN No [facility] Clinical Notes 08-25-2018 to 03-22-2025 Telephone Encounter - Norma Long - 03/22/2025 4:24 PM EDTTelephone Encounter - Norma Long - 03/22/2025 4:24 PM Narciso Nava PA-C - 02/07/2025 10:59 AM EDT Note Date & Type Note Facility 03-22-2025 Telephone encounter Note Tena has her daughter calling for information to request medical records request for [employer]. Fax and phone number was provided Patient has been identified by name and birthdate. Person calling: daughter: Juan Call patient at: on cell [phone] (home) [phone] (cell) Was an appointment scheduled: No Closing statement: Results or non-symptom based questions: Thank you for calling [facility], your call will be returned within the next business day. Norma Torres Videostirfarhad [facility] 03-22-2025 Miscellaneous Notes Tena has her daughter calling for information to request medical records request for [employer]. Fax and phone number was provided Patient has been identified by name and birthdate. Person calling: daughter: Juan Call patient at: on cell [phone] (home) [phone] (cell) Was an appointment scheduled: No Closing statement: Results or non-symptom based questions: Thank you for calling [facility], your call will be returned within the next business day. Norma Torres Videostirfarhad documented in this encounter [facility] 02-14-2025 Telephone encounter Note Called [facility], patient on [facility]. Spoke with LOBO Soto. Reports patient had been transferred hall. OLBO Soto informed of orders and she will update facility provider. Yandy Cruz LPN [facility] 02-14-2025 Miscellaneous Notes Called [facility], patient on [place]. Spoke with LOBO Soto. Reports patient had been transferred halls. LOBO Soto informed of orders and she will update facility provider. Yandy Cruz LPN Faxed order and results to [facility]. Yandy Cruz LPN Images from the original note were not included. Order Audit [place]: sulfamethoxazole-trimethoprim (BACTRIM DS) 800-160 mg per tablet [[id number]] Original entry by Marilyn Santos PA-C 02/09/2025 11:52 AM Revision History Medication Order name: sulfamethoxazole-trimethoprim (BACTRIM DS) 800-160 mg per tablet Medication: SULFAMETHOXAZOLE 800 MG-TRIMETHOPRIM 160 MG TABLET [[id number]] Dispense as Written: No Clinical Dose: 1 tablet Route: ORAL Frequency: 2 TIMES DAILY Duration: -- Number of Days Supply: -- Sig: Take 1 tablet by mouth two times a day. Order Class: Normal Priority: -- Dispense Quantity: 14 tablets Refills: 0 Associated Diagnoses: -- Pharmacy Associated Diagnoses: -- Dates Called patient. No answer- left message to call clinic for message. Yandy Cruz LPN ----- Message from Marilyn Santos PA-C sent at 02/09/2025 11:51 AM EDT ----- Regarding: urine culture is positive Please tell her the urine culture is positive and to start bactrim. Edward Cline documented in this encounter [facility] 02-10-2025 Telephone encounter Note Faxed order and results to [facility]. Yandy Cruz LPN [facility] 02-10-2025 Telephone encounter Note Images from the original note were not included. Order Audit [place]: sulfamethoxazole-trimethoprim (BACTRIM DS) 800-160 mg per tablet [[id number]] Original entry by Marilyn Santos PA-C 02/09/2025 11:52 AM Revision History Medication Order name: sulfamethoxazole-trimethoprim (BACTRIM DS) 800-160 mg per tablet Medication: SULFAMETHOXAZOLE 800 MG-TRIMETHOPRIM 160 MG TABLET [[id number]] Dispense as Written: No Clinical Dose: 1 tablet Route: ORAL Frequency: 2 TIMES DAILY Duration: -- Number of Days Supply: -- Sig: Take 1 tablet by mouth two times a day. Order Class: Normal Priority: -- Dispense Quantity: 14 tablets Refills: 0 Associated Diagnoses: -- Pharmacy Associated Diagnoses: -- Dates [facility] 02-10-2025 Telephone encounter Note Called patient. No answer- left message to call clinic for message. Yandy Cruz LPN T [facility] 02-10-2025 Telephone encounter Note ----- Message from Marilyn Santos PA-C sent at 02/09/2025 11:51 AM EDT ----- Regarding: urine culture is positive Please tell her the urine culture is positive and to start bactrim. Edward Cline T [facility] 02-08-2025 Telephone encounter Note Faxed urology office notes to facility. Yandy Cruz LPN [facility] 02-08-2025 Miscellaneous Notes Faxed urology office notes to facility. Yandy Cruz LPN Called [employer] to obtain fax number. Spoke with LOBO Burk on [facility] [place] (Transition of Care). Fax number is . Yandy Cruz LPN documented in this encounter [facility] 02-08-2025 Telephone encounter Note Called [employer] to obtain fax number. Spoke with LOBO Burk on [facility] (Transition of Care). Fax number is . Yandy Cruz LPN [facility] 02-07-2025 Note HNO ID: [id number] Author: NARCISO SHERMAN PA-C Service: ? Author Type: Physician Stock Control Clerk Type: Progress Notes Filed: 02/07/2025 11:35 Note Text: [facility] PATIENT CLINIC NOTE (F) Note was generated by [employer] and edited as appropriate SERVICE DATE: February 07, 2025 NAME: Tena Cannon GENDER: female CHIEF COMPLAINT: The patient is an 84-year-old female with a history of recurrent UTIs, seen today for evaluation of urinary symptoms. HISTORY OF PRESENT ILLNESS: The patient is an 84-year-old female with a history of recurrent UTIs, seen today for evaluation of urinary symptoms. Urinary Symptoms: - Recent [place] catheter removed; patient unsure of reason for initial placement. - No known surgeries related to catheter placement. - History of recurrent UTIs; recently completed antibiotic treatment. - Denies current dysuria, frequency, or urgency. - Able to urinate independently. LABS: Glucose (mg/dL) Date Value 12/19/2024 89 08/30/2020 92 Potassium (mmol/L) Date Value 12/19/2024 4.1 08/30/2020 4.6 Sodium (mmol/L) Date Value 12/19/2024 139 08/30/2020 141 Chloride (mmol/L) Date Value 12/19/2024 99 08/30/2020 105 CO2 (mmol/L) Date Value 12/19/2024 32 08/30/2020 25 Creatinine (mg/dL) Date Value 12/19/2024 0.34 08/30/2020 0.39 BUN (mg/dL) Date Value 12/19/2024 18 08/30/2020 25 Anion Gap (mmol/L) Date Value 12/19/2024 8 08/30/2020 11 Calcium (mg/dL) Date Value 08/30/2020 10.0 Calcium, Total (mg/dL) Date Value 12/19/2024 8.9 Protein, Total (g/dL) Date Value 12/13/2024 7.0 08/30/2020 6.9 Albumin (g/dL) Date Value 12/13/2024 3.9 08/30/2020 4.0 Bilirubin, Total (mg/dL) Date Value 12/13/2024 0.7 08/30/2020 0.3 Alkaline Phosphatase (U/L) Date Value 12/13/2024 74 08/30/2020 64 AST (U/L) Date Value 12/13/2024 25 08/30/2020 30 ALT (U/L) Date Value 12/13/2024 18 08/30/2020 31 Creatinine Date Value Ref Range Status 12/19/2024 0.34 (L) 0.58 - 0.96 mg/dL Final 12/18/2024 0.30 (L) 0.58 - 0.96 mg/dL Final 12/17/2024 0.27 (L) 0.58 - 0.96 mg/dL Final MEDICATIONS: dextran 70-hypromellose (ARTIFICIAL TEARS,[id number],) 0.1-0.3 % ophthalmic solution Use 1 drop in both eyes two times a day. lidocaine (ASPERFLEX, LIDOCAINE,) 4 % patch Apply 1 application as directed once daily. Apply to lower back, on for twelve hours, off for twelve hours. atktdard-xfkl-bcz3-C-lety-bosw (OSTEO BI-FLEX TRIPLE STRENGTH) 750 mg-644 mg- 30 mg-1 mg tab Take 1 tablet by mouth once daily. pantoprazole DR (PROTONIX) 40 mg tablet Take 40 mg by mouth once daily. Cholecalciferol, Vitamin D3, (VITAMIN D-3) 50 mcg (2,000 unit) cap Take 1 capsule by mouth once daily. polyethylene glycol 3350 17 gram packet Take 1 packet by mouth two times a day. Dissolve dose in 4 - 8 ounces of liquid and take as directed. (Patient taking differently: Take 17 g by mouth once daily. Dissolve dose in 4 - 8 ounces of liquid and take as directed.) senna-docusate (SENNA-S) 8.6-50 mg per tablet Take 2 tablets by mouth two times a day. tamsulosin (FLOMAX) 0.4 mg Take 1 capsule by mouth daily at bedtime. cyclobenzaprine (FLEXERIL) 5 mg tablet Take 1 tablet by mouth two times a day as needed. amLODIPine (NORVASC) 5 mg tablet Take 1 tablet by mouth two times a day. metFORMIN (GLUCOPHAGE) 500 mg tablet Take 1 tablet by mouth daily with breakfast. metroNIDAZOLE (METROGEL) 0.75 % Topical Gel APPLY 1 APPLICATION TO AFFECTED AREA ONCE DAILY TOFACE loratadine (CLARITIN ORAL) Take 10 mg by mouth once daily. atropine 1 % ophthalmic solution Use 1 drop in the left eye two times a day. calcium carbonate (CALCIUM 500 ORAL) Take by mouth every other day. ferrous sulfate 325 mg (65 mg iron) tablet Take 325 mg by mouth every other day. timolol maleate (TIMOPTIC) 0.5 % ophthalmic solution Use 1 Drop in the left eye every morning. (Patient taking differently: Use 1 drop in the left eye two times a day.) CPAP BipaP @ 14/9 cm of water with humidification, removable water dispenser (for cleaning) . Mask (small/ per patient preference) , filters, tubing, humidifier and lifetime supplies. (G47.33, Z99.89) Obstructive sleep apnea on CPAP propylene glycol (SYSTANE COMPLETE OPHTHALMIC) Use 1 drop in eyes two times a day. lidocaine (LIDODERM) 5 % Apply 1 patch as directed once daily. REMOVE AFTER 12 HOURS. esomeprazole (NEXIUM) 40 mg capsule TAKE 1 CAPSULE DAILY BEFOREBREAKFAST. 1/2 HOUR BEFORE A MEAL esomeprazole (NEXIUM) 40 mg capsule TAKE 1 CAPSULE DAILY BEFOREBREAKFAST. 1/2 HOUR BEFORE A MEAL brimonidine (ALPHAGAN) 0.2 % ophthalmic solution Use 1 drop in the left eye two times a day. nystatin-triamcinolone (MYCOLOG) ointment Apply sparingly to perineum twice daily for irritation/infection. sulfacetamide (BLEPH-10) 10 % ophthalmic solution Use 1 Drop i (more content not included)... [facility] 02-07-2025 History of Present illness Narrative Images from the original note were not included. [facility] PATIENT CLINIC NOTE (F) Note was generated by [employer] and edited as appropriate SERVICE DATE: February 07, 2025 NAME: Tena Cannon GENDER: female CHIEF COMPLAINT: The patient is an 84-year-old female with a history of recurrent UTIs, seen today for evaluation of urinary symptoms. HISTORY OF PRESENT ILLNESS: The patient is an 84-year-old female with a history of recurrent UTIs, seen today for evaluation of urinary symptoms. Urinary Symptoms: - Recent [place] catheter removed; patient unsure of reason for initial placement. - No known surgeries related to catheter placement. - History of recurrent UTIs; recently completed antibiotic treatment. - Denies current dysuria, frequency, or urgency. - Able to urinate independently. LABS: Glucose (mg/dL) Date Value 12/19/2024 89 08/30/2020 92 Potassium (mmol/L) Date Value 12/19/2024 4.1 08/30/2020 4.6 Sodium (mmol/L) Date Value 12/19/2024 139 08/30/2020 141 Chloride (mmol/L) Date Value 12/19/2024 99 08/30/2020 105 CO2 (mmol/L) Date Value 12/19/2024 32 08/30/2020 25 Creatinine (mg/dL) Date Value 12/19/2024 0.34 08/30/2020 0.39 BUN (mg/dL) Date Value 12/19/2024 18 08/30/2020 25 Anion Gap (mmol/L) Date Value 12/19/2024 8 08/30/2020 11 Calcium (mg/dL) Date Value 08/30/2020 10.0 Calcium, Total (mg/dL) Date Value 12/19/2024 8.9 Protein, Total (g/dL) Date Value 12/13/2024 7.0 08/30/2020 6.9 Albumin (g/dL) Date Value 12/13/2024 3.9 08/30/2020 4.0 Bilirubin, Total (mg/dL) Date Value 12/13/2024 0.7 08/30/2020 0.3 Alkaline Phosphatase (U/L) Date Value 12/13/2024 74 08/30/2020 64 AST (U/L) Date Value 12/13/2024 25 08/30/2020 30 ALT (U/L) Date Value 12/13/2024 18 08/30/2020 31 Creatinine Date Value Ref Range Status 12/19/2024 0.34 (L) 0.58 - 0.96 mg/dL Final 12/18/2024 0.30 (L) 0.58 - 0.96 mg/dL Final 12/17/2024 0.27 (L) 0.58 - 0.96 mg/dL Final MEDICATIONS: dextran 70-hypromellose (ARTIFICIAL TEARS,[id number],) 0.1-0.3 % ophthalmic solution Use 1 drop in both eyes two times a day. lidocaine (ASPERFLEX, LIDOCAINE,) 4 % patch Apply 1 application as directed once daily. Apply to lower back, on for twelve hours, off for twelve hours. udvahvje-agyw-sud3-C-lety-bosw (OSTEO BI-FLEX TRIPLE STRENGTH) 750 mg-644 mg- 30 mg-1 mg tab Take 1 tablet by mouth once daily. pantoprazole DR (PROTONIX) 40 mg tablet Take 40 mg by mouth once daily. Cholecalciferol, Vitamin D3, (VITAMIN D-3) 50 mcg (2,000 unit) cap Take 1 capsule by mouth once daily. polyethylene glycol 3350 17 gram packet Take 1 packet by mouth two times a day. Dissolve dose in 4 - 8 ounces of liquid and take as directed. (Patient taking differently: Take 17 g by mouth once daily. Dissolve dose in 4 - 8 ounces of liquid and take as directed.) senna-docusate (SENNA-S) 8.6-50 mg per tablet Take 2 tablets by mouth two times a day. tamsulosin (FLOMAX) 0.4 mg Take 1 capsule by mouth daily at bedtime. cyclobenzaprine (FLEXERIL) 5 mg tablet Take 1 tablet by mouth two times a day as needed. amLODIPine (NORVASC) 5 mg tablet Take 1 tablet by mouth two times a day. metFORMIN (GLUCOPHAGE) 500 mg tablet Take 1 tablet by mouth daily with breakfast. metroNIDAZOLE (METROGEL) 0.75 % Topical Gel APPLY 1 APPLICATION TO AFFECTED AREA ONCE DAILY TOFACE loratadine (CLARITIN ORAL) Take 10 mg by mouth once daily. atropine 1 % ophthalmic solution Use 1 drop in the left eye two times a day. calcium carbonate (CALCIUM 500 ORAL) Take by mouth every other day. ferrous sulfate 325 mg (65 mg iron) tablet Take 325 mg by mouth every other day. timolol maleate (TIMOPTIC) 0.5 % ophthalmic solution Use 1 Drop in the left eye every morning. (Patient taking differently: Use 1 drop in the left eye two times a day.) CPAP BipaP @ 14/9 cm of water with humidification, removable water dispenser (for cleaning) . Mask (small/ per patient preference) , filters, tubing, humidifier and lifetime supplies. (G47.33, Z99.89) Obstructive sleep apnea on CPAP propylene glycol (SYSTANE COMPLETE OPHTHALMIC) Use 1 drop in eyes two times a day. lidocaine (LIDODERM) 5 % Apply 1 patch as directed once daily. REMOVE AFTER 12 HOURS. esomeprazole (NEXIUM) 40 mg capsule TAKE 1 CAPSULE DAILY BEFOREBREAKFAST. 1/2 HOUR BEFORE A MEAL esomeprazole (NEXIUM) 40 mg capsule TAKE 1 CAPSULE DAILY BEFOREBREAKFAST. 1/2 HOUR BEFORE A MEAL brimonidine (ALPHAGAN) 0.2 % ophthalmic solution Use 1 drop in the left eye two times a day. nystatin-triamcinolone (MYCOLOG) ointment Apply sparingly to perineum twice daily for irritation/infection. sulfacetamide (BLEPH-10) 10 % ophthalmic solution Use 1 Drop in both eyes four times daily. INSIDE LOWER EYELID(S) 1-4 TIMES DAILY AND AT BEDTIME miconazole (MONISTAT 7) 2 % vaginal cream Use 1 Applicator vaginally daily at bedtime. BIOTIN ORAL Take 1 capsule by mouth once daily. vitamin B complex (B COMPLEX VITAMINS ORAL) Take 1 tablet by mouth once daily. ergocalciferol, vitamin D2, (VITAMIN D2 ORAL) Take 1 tablet by mouth once daily. therapeutic multivitamin w/ iron (THERAGRAN-M) 9 mg iron-400 mcg tablet Take 1 tablet by mouth once daily. prednisoLONE acetate (PRED FORTE, ECONOPRED PLUS) 1 % ophthalmic suspension Use 1 Drop in the left eye twice daily as needed. polyvinyl alcohol (LIQUID TEARS OPHTHALMIC) Use in eyes. rutin/hesp/bioflav/C/lwgzik364 (BIOFLEX ORAL) Take 1 capsule by mouth twice daily. cyclopentolate (CYCLOGYL) 1 % ophthalmic solution Use 1 Drop in the left eye two times a day. 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 Leukopenia Low back pain, unspecified Muscle wasting and atrophy, not elsewhere classified, right lower leg Obesity, class 1 Obstructive sleep apnea (adult) (pediatric) Other symbolic dysfunctions Overflow incontinence Paraplegia, incomplete (HCC) Paraplegia, unspecified (HCC) Personal history of other malignant neoplasm of skin basal- cell RUE, scalp and neck Personal history of poliomyelitis Postpolio syndrome (HCC) Presence of intraocular lens Restless leg syndrome Retention of urine, unspecified Rosacea, unspecified Unspecified fracture of t11-T12 vertebra, subsequent encounter for fracture with routine healing Unspecified protein-calorie malnutrition (HCC) Unspecified sleep apnea cpap Vitamin D deficiency, unspecified PAST SURGICAL HISTORY: PAST SURGICAL HISTORY Procedure Laterality Date APPENDECTOMY tubal ligation BLEPHAROPLASTY UPPER EYELID W/EXCESSIVE SKIN 2022 CARPAL TUNNEL RIGHT WRIST 07/2003 COLONOSCOPY 03/30/2013 normal exam EGD 03/30/2013 hiatal hernia, Savary-Marshall Grade III reflux esophagitis, gastric polyps EGD 09/07/2018 SSBE noted on exam, not confirmed on biopsy, gastritis, neg H Pylori, fundic gland polyp IR KYPHOPLASTY LUMBAR 2006 L-3 LAPAROSCOPY SURG CHOLECYSTECTOMY 06/1999 Cholecystectomy, lap PAST SURGICAL HISTORY OF 2007 CMCJleft wrist PAST SURGICAL HISTORY OF child tendon transplants right ankle and both knees PAST SURGICAL HISTORY OF teens left great toe X 2 PAST SURGICAL HISTORY OF 1986 left rotator cuff repair and bone spur PAST SURGICAL HISTORY OF bone spur right shoulder RMVL [facility] CORNEO-SCLL SCTJ Cataract removal left with lens implant FAMILY HISTORY: FAMILY HISTORY Problem Relation Age of Onset Heart Mother Hypertension Mother Headache Mother Diabetes Father Diabetes Paternal Grandmother Stroke Brother Stroke Paternal Grandfather Heart Other Heart Paternal Uncle Heart Maternal Uncle Hypertension Sister Hypertension Brother Diabetes Son Seizures Other niece other (dementia) Maternal Aunt other (brain hemorrhage) Other cousin SOCIAL HISTORY: Social Connections: Not on file REVIEW OF SYSTEMS: Genitourinary: (-) urinary symptoms PHYSICAL EXAMINATION: Blood pressure 110/72, pulse 102, temperature 36.2 C (97.1 F), temperature source Temporal, resp. rate 14, SpO2 96%. General: Alert & oriented, no acute distress Skin: Normal HEENT: Pupils equal, round. Oral cavity, oropharynx clear Neck: Supple, no mass Breast: Deferred Respiratory: Clear to auscultation, bilaterally Cardiovascular: Regular rate and rhythm, no murmurs, rubs, or gallops Abdomen: Soft, non-tender, non-distended, no masses palpable, no hepatosplenomegaly, normal bowel sounds Genitourinary: Deferred MSK: Back is non-tender Extremities: No clubbing, cyanosis, or edema PROBLEM LIST REVIEW: Yes LABS: Results for orders placed or performed in visit on 02/07/25 UA DIP, URINE (POC) Result Value Ref Range GLUCOSE UA (POCT) Negative Negative mg/dL BILIRUBIN UA (POCT) Small (A) Negative KETONE UA (POCT) 40 (A) Negative mg/dL SPECIFIC GRAVITY UA (POCT) 1.025 1.005 - 1.030 HEMOGLOBIN/BLOOD UA (POCT) Small (A) Negative PH UA (POCT) 5.5 4.5 - 8.0 PROTEIN UA (POCT) 30 (A) Negative mg/dL UROBILINOGEN UA (POCT) 0.2 Normal E.U./dL NITRITE UA (POCT) Negative Negative LEUKOCYTES UA (POCT) Large (A) Negative COLOR UA (POCT) Dark yellow CLARITY UA (POCT) Cloudy Urine Culture: Pending ASSESSMENT/PLAN: 1. Urinary tract infection without hematuria, site unspecified (N39.0) - Recent UTI treated with antibiotics. Current urinalysis shows small amounts of blood and leukocytes. Sent urine sample for culture to identify any persistent infection. Awaiting culture results to determine further management. 2. Frequent urination (R35.0) 3. Burning with urination (R30.0) 4. Compression fracture of thoracic vertebra with routine healing, unspecified thoracic vertebral level, subsequent encounter (S22.000D) - Recent hospitalization on December 15 at [facility] due to a fall resulting in a compression fracture. Phoenix catheter was placed during hospitalization due to immobility. Phoenix catheter has since been removed, and patient is able to urinate independently. 5. Screening for genitourinary condition (Z13.89) - Urine culture ordered to screen for ongoing infection. No further interventions required at this time if culture results are negative. New Diagnosis of unknown prognosis testing to follow > Follow-up to be determined by testing ordered today > Will contact patient with the Results & Recommendations once testing is completed Patient Instructions (AVS) - printed for patient - No new antibiotics are prescribed at this time; antibiotic treatment will begin only if your urine culture grows bacteria. - A small amount of blood and white blood cells was found in your urine, so your sample was sent for culture. - Since you can urinate on your own, you do not need a Phoenix catheter; please use a bedpan as needed. - If you notice any urinary symptoms--such as burning, pain, or blood in your urine--call our office. - I will fax this visit note and the culture results to your primary provider. - No routine follow-up appointment is scheduled; return only if you experience problems. MONICA Concepcion, STANTON, MARILYNC documented in this encounter [facility] 01-09-2025 Note HNO ID: [id number] Author: LIONEL JOINER MA Service: ? Author Type: Newspaper Writer Type: Progress Notes Filed: 01/09/2025 08:50 Note Text: POPULATION HEALTH NAVIGATION OUTREACH Action/FYI Patient is on [employer] list for below and needs appointment to address: DTaP,Tdap,Td Vaccine(1 - Tdap) Advance Directive Discussion Covid-19 Vaccine() Depression Screening Anxiety Screening Hemoglobin A1C (no units) Date Value 08/25/2024 4.7 Patient due for: Follow up Appointment - AWV MyChart Active: No, offered activation N/A Left message for patient to call back. No mychart available. HCC: Yes Reason for Outreach Care Gap/HCC or Scheduling Wellness Visits Care Gaps due: Follow-up Appointment Patient Contacted: Unable or unnecessary to reach patient: Left message HCC related Navigation Signature: Lionel Joiner MA January 09, 2025 7:10 AM [facility] 01-09-2025 History of Present illness Narrative POPULATION HEALTH NAVIGATION OUTREACH Action/FYI Patient is on [employer] list for below and needs appointment to address: DTaP,Tdap,Td Vaccine(1 - Tdap) Advance Directive Discussion Covid-19 Vaccine() Depression Screening Anxiety Screening Hemoglobin A1C (no units) Date Value 08/25/2024 4.7 Patient due for: Follow up Appointment - AWV MyChart Active: No, offered activation N/A Left message for patient to call back. No mychart available. HCC: Yes Reason for Outreach Care Gap/HCC or Scheduling Wellness Visits Care Gaps due: Follow-up Appointment Patient Contacted: Unable or unnecessary to reach patient: Left message HCC related Navigation Signature: Lionel Joiner MA January 09, 2025 7:10 AM documented in this encounter [facility] 01-09-2025 Note Patient Outreach (KALYAN TNAV) TENA CANNON ([id number]) 1940 F Date Time Provider Department 01/09/25 LIONEL JOINER During your visit today, we recorded the following information about you: Lionel Joiner MA 01/09/2025 8:50 AM Signed POPULATION HEALTH NAVIGATION OUTREACH Action/FYI Patient is on [employer] list for below and needs appointment to address: DTaP,Tdap,Td Vaccine(1 - Tdap) Advance Directive Discussion Covid-19 Vaccine( season) Depression Screening Anxiety Screening Hemoglobin A1C (no units) Date Value 08/25/2024 4.7 Patient due for: Follow up Appointment - AWV MyChart Active: No, offered activation N/A Left message for patient to call back. No mychart available. HCC: Yes Reason for Outreach Care Gap/HCC or Scheduling Wellness Visits Care Gaps due: Follow-up Appointment Patient Contacted: Unable or unnecessary to reach patient: Left message HCC related Navigation Signature: Lionel Joiner MA January 09, 2025 7:10 AM Allergies As of Date: 01/09/2025 Noted Allergy Reaction KEFLEX (CEPHALEXIN) 05/12/2005 6 - Diarrhea 8 - GI Upset Comments: extreme diarrhea VIOXX (ROFECOXIB) 05/12/2005 5 - Intolerance Comments: Makes capillaryblood vessels break NOVOCAIN (PROCAINE HCL) 01/13/2024 5 - Intolerance Comments: headaches OMEGA-3 FISH OIL (OMEGA-3 FATTY A*05/05/2007 5 - Intolerance Comments: bleeding in eye ADVIL (IBUPROFEN) 05/28/2005 5 - Intolerance Comments: Makes capillary blood vessels bread ASA (SALICYLATES) 05/28/2005 5 - Intolerance Comments: Makes capillary blood vessels break Date Reviewed: 12/19/2024 Reviewed by: Theresa Gonzales RN - Fully Assessed Reason for Visit: Population Health Navigation Outreach [3910] Cmt: [employer] - [place] PCSA Prescriptions as of 01/09/2025 - lactulose 20 gram/30 mL solution Take 60 mL by mouth every 4 hours while awake. - polyethylene glycol 3350 17 gram packet Take 1 packet by mouth two times a day. Dissolve dose in 4 - 8 ounces of liquid and take as directed. - senna-docusate (SENNA-S) 8.6-50 mg per tablet Take 2 tablets by mouth two times a day. - tamsulosin (FLOMAX) 0.4 mg Take 1 capsule by mouth daily at bedtime. - propylene glycol (SYSTANE COMPLETE OPHTHALMIC) Use 1 drop in eyes two times a day. - cyclobenzaprine (FLEXERIL) 5 mg tablet Take 1 tablet by mouth two times a day as needed. - amLODIPine (NORVASC) 5 mg tablet Take 1 tablet by mouth two times a day. - lidocaine (LIDODERM) 5 % Apply 1 patch as directed once daily. REMOVE AFTER 12 HOURS. - metFORMIN (GLUCOPHAGE) 500 mg tablet Take 1 tablet by mouth daily with breakfast. - esomeprazole (NEXIUM) 40 mg capsule TAKE 1 CAPSULE DAILY BEFOREBREAKFAST. 1/2 HOUR BEFORE A MEAL - esomeprazole (NEXIUM) 40 mg capsule TAKE 1 CAPSULE DAILY BEFOREBREAKFAST. 1/2 HOUR BEFORE A MEAL - metroNIDAZOLE (METROGEL) 0.75 % Topical Gel APPLY 1 APPLICATION TO AFFECTED AREA ONCE DAILY TOFACE - brimonidine (ALPHAGAN P) 0.1 % drop - loratadine (CLARITIN ORAL) Take by mouth. - nystatin-triamcinolone (MYCOLOG) ointment Apply sparingly to perineum twice daily for irritation/infection. - atropine 1 % ophthalmic solution - sulfacetamide (BLEPH-10) 10 % ophthalmic solution Use 1 Drop in both eyes four times daily. INSIDE LOWER EYELID(S) 1-4 TIMES DAILY AND AT BEDTIME - miconazole (MONISTAT 7) 2 % vaginal cream Use 1 Applicator vaginally daily at bedtime. - calcium carbonate (CALCIUM 500 ORAL) Take by mouth every other day. - BIOTIN ORAL Take 1 capsule by mouth once daily. - vitamin B complex (B COMPLEX VITAMINS ORAL) Take 1 tablet by mouth once daily. - ergocalciferol, vitamin D2, (VITAMIN D2 ORAL) Take 1 tablet by mouth once daily. - ferrous sulfate 325 mg (65 mg iron) tablet Take 325 mg by mouth every other day. - therapeutic multivitamin w/ iron (THERAGRAN-M) 9 mg iron-400 mcg tablet Take 1 tablet by mouth once daily. - prednisoLONE acetate (PRED FORTE, ECONOPRED PLUS) 1 % ophthalmic suspension Use 1 Drop in the left eye twice daily as needed. - timolol maleate (TIMOPTIC) 0.5 % ophthalmic solution Use 1 Drop in the left eye every morning. - polyvinyl alcohol (LIQUID TEARS OPHTHALMIC) Use in eyes. - rutin/hesp/bioflav/C/smuszw424 (BIOFLEX ORAL) Take 1 capsule by mouth twice daily. - CPAP BipaP @ 14/9 cm of water with humidification, removable water dispenser (for cleaning) . Mask (small/ per patient preference) , filters, tubing, humidifier and lifetime supplies. (G47.33, Z99.89) Obstructive sleep apnea on CPAP - cyclopentolate (CYCLOGYL) 1 % ophthalmic solution Use 1 Drop in the left eye two times a day. Problem List As Of Date 01/09/2025 Noted Resolved GERD (gastroesophageal reflux disease) [K21.9] 05/12/2005 Late effects of acute poliomyelitis [B91] 05/12/2005 Varicos (more content not included)... [facility] 12-19-2024 Note HNO ID: [id number] Author: RACHEL RODRIGEZ RN Service: Care Management Author Type: Registered Nurse Type: Care Mgt Progress Note Filed: 12/19/2024 13:56 Note Text: CARE MANAGEMENT DISCHARGE NOTE SERVICE DATE: December 19, 2024 SERVICE TIME: 1:47 PM Discharge Order written for today. Discharge: Longterm Facility SNF: [facility] - - Facility confirms they have insurance auth and can accept patient. HILDA ROMO informed Katiuska Juicesusannabrennaalvin from the [facility]. SNF updated on discharge today and transport time per [facility] Trans[facility]. [facility] Transport Scheduled for today at 3:00PM - Trip Number [id number] Transport envelope on chart. HILDA ROMO updated patient at bedside and daughter Joanne by phone on discharge plan and transport time. Nurse: Theresa Vargas RN updated on discharge plan for today. Admission Date: 12/12/2024 LOS: 3 days Discharge Arrangement Discharge Arrangement: Longterm Facility Provider Name: SNF: [facility] - Transportation Arrangements Transportation Arrangements: Ambulance Transportation Agency and Phone #:: [facility] [phone] Date of Trip: 12/19/24 (Trip Number [id number]) Time of Trip: 1500 Type of Service: BLS Non-emergency Is Patient Medicaid Pending?: No Was transportation financial coverage discussed with family?: Patient, Family (Daughter: Joanne Baziz - ) [employer] Location: [place] Destination: SNF: [facility] - Financial Care Management Responsibility: None Handoff Communication: Handoff to: Other Caregiver, Primary Care Physician Primary Care Physician Name/Phone: PCP: Sahra Guy MD - Other Caregiver Name/Phone: SNF: [facility] - Additional Information: Discharge Information Row Name ED to Hosp-Admission (Current) from 12/12/2024 in [facility] Medical Follow-Up Appointment Provider Name PCP: Jaime Guy MD - Longterm Facility Agency SNF: [facility] - SIGNATURE: Rachel Rodrigez RN PATIENT NAME: Tena Cannon DATE: December 19, 2024 TIME: 1:47 PM [facility] 12-19-2024 Note HNO ID: [id number] Author: RACHEL RODRIGEZ RN Service: Care Management Author Type: Registered Nurse Type: Care Mgt Progress Note Filed: 12/19/2024 13:38 Note Text: CARE MANAGEMENT PROGRESS NOTE SERVICE DATE: 12/19/2024 SERVICE TIME: 11:41 AM LOS: 3 days Discharge Plan: Longterm Facility. SNF: [facility] - Able to Accept: They note they have insurance authorization to accept. [facility] completed HENS/OR 7000 for [facility] - Document ID : [id number]. Dr Lopez updated CM: he spoke with patient and daughter and is planning to discharge patient today. HILDA ROMO met with patient at bedside to discuss discharge plan for today. Patient confirms she is agreeable with discharge to SNF: [facility] in [place] by medical transport. Patient informed that medical transport time scheduled for today at 3:00 PM. HILDA ROMO called and updated patients daughter Juan on discharge plan and transport time for today. Anjanae confirms she is agreeable with discharge plan. [facility] Transitions on Discharge today and Transport Time. Transport envelope on chart. SIGNATURE: Rachel Rodrigez RN PATIENT NAME: Tena Cannon DATE: December 19, 2024 TIME: 11:41 AM [facility] 12-19-2024 Note HNO ID: [id number] Author: MORIAH LOPEZ MD Service: Hospital Medicine Author Type: Physician Type: Progress Notes Filed: 12/19/2024 09:45 Note Text: HOSPITAL MEDICINE PROGRESS NOTE History: Passing gas. No BM. No abd pain. Exam: BP 114/59 Pulse 78 Temp 36.4 ?C (97.5 ?F) (Oral) Resp 17 Ht 142.2 cm (4' 8) Wt 69.2 kg (152 lb 8.9 oz) SpO2 92% BMI 34.20 kg/m? Physical Exam Cardiovascular: Rate and Rhythm: Normal rate. Pulmonary: Effort: Pulmonary effort is normal. Musculoskeletal: General: No swelling. Comments: Can only wiggle feet ASSESSMENT: Ms. Cannon, your 84 years have been affected by poliomyelitis with wheelchair bound status, iron def anemia, ALVERTO on CPAP, assisted living status. You presented to the hospital with multiple falls over past few months and back pain and trouble with ADL's. Found to have T11 compression fracture. Dr. Richardson reported to me on 12/16 at 6 pm that he spoke with [facility] neurosurgeon animal cruelty investigation supervisor who said that patient isn't a surgical candidate based on her age and chronic functional status and high risk for surgical complications and non-healing. Will focus on pain meds and transition to SNF with brace. Constipation - continue miralax/senna docusate. Mag citrate didn't produce BM. Will give several lactulose today and a dulcolax Suppository and evaluate to make sure she can still feel around the anus. Urine retention - stop sanctura and add flomax. Continue Phoenix and do void trial at SNF after ~ 7 days of flomax. F/u with urology on DC. Tylenol, solumedrol, oxycodone, lido patch, kpad for compression fracture. F/u with spine surg. Med rdy for SNF. Active Hospital Problems Diagnosis Date Noted Thoracic compression fracture, closed, initial encounter ([facility]) 12/16/2024 Obesity, Class I, BMI 30-34.9 12/12/2024 Low back pain 12/12/2024 Generalized weakness 07/29/2018 Obstructive sleep apnea on CPAP 07/14/2017 Overview Note: DME--[employer]--PH # [phone]---FX # [phone]. 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 Will Begin Precert. Physician Certification of Less Than 30 Days Skilled Needs Earliest Possible Discharge Date: 12/18/24 To the best of my knowledge, all information provided about the individual is a true and an accurate reflection of Tena Cannon's needs. I certify that following the inpatient level of care, a post-acute nursing facility stay is required for less than 30 days related to the condition(s) for which the patient was treated during the inpatient level of care: Principal Problem: Thoracic compression fracture, closed, initial encounter ([facility]) Active Problems: Restless legs syndrome (RLS) Postpoliomyelitis syndrome (HCC) Obstructive sleep apnea on CPAP Generalized weakness Obesity, Class I, BMI 30-34.9 Low back pain Resolved Problems: Sleep apnea Attending Physician: Moriah Lopez MD SIGNATURE: Ilsa Rodas RN,BSN, ACM PATIENT NAME: Tena Cannon DATE: December 18, 2024 TIME: 9:54 AM [facility] 12-18-2024 Note HNO ID: [id number] Author: MORIAH LOPEZ MD Service: Hospital Medicine Author Type: Physician Type: Progress Notes Filed: 12/18/2024 08:45 Note Text: HOSPITAL MEDICINE PROGRESS NOTE History: Urine less cloudy per staff software engineer. Exam: BP (!) 114/48 Pulse 74 Temp 36.5 ?C (97.7 ?F) (Oral) Resp 17 Ht 142.2 cm (4' 8) Wt 69.2 kg (152 lb 8.9 oz) SpO2 93% BMI 34.20 kg/m? Physical Exam Cardiovascular: Rate and Rhythm: Normal rate. Pulmonary: Effort: Pulmonary effort is normal. Musculoskeletal: General: No swelling. Comments: Can only wiggle feet ASSESSMENT: Ms. Cannon, your 84 years have been affected by poliomyelitis with wheelchair bound status, iron def anemia, ALVERTO on CPAP, assisted living status. You presented to the hospital with multiple falls over past few months and back pain and trouble with ADL's. Found to have T11 compression fracture. Dr. Richardson reported to me on 12/16 at 6 pm that he spoke with [facility] neurosurgeon animal cruelty investigation supervisor who said that patient isn't a surgical candidate based on her age and chronic functional status and high risk for surgical complications and non-healing. Will focus on pain meds and transition to SNF with brace. Constipation - continue miralax/senna docusate. Add mag citrate today. Trying to avoid [place] meds given back pain. Urine retention - stop sanctura and add flomax. Continue Phoenix and do void trial at SNF after ~ 7 days of flomax. F/u with urology on DC. Tylenol, solumedrol, oxycodone, lido patch, kpad for compression fracture. F/u with spine surg. Med rdy for SNF. Active Hospital Problems Diagnosis Date Noted Thoracic compression fracture, closed, initial encounter ([facility]) 12/16/2024 Obesity, Class I, BMI 30-34.9 12/12/2024 Low back pain 12/12/2024 Generalized weakness 07/29/2018 Obstructive sleep apnea on CPAP 07/14/2017 Overview Note: DME--[employer]--PH # [phone]---FX # [phone]. Postpoliomyelitis syndrome (HCC) 06/03/2014 Restless legs syndrome (RLS) Leg blood clot prevention: heparin SIGNATURE: Moriah Lopez MD DATE: 12/18/2024 TIME: 8:45 AM [facility] 12-18-2024 Note HNO ID: [id number] Author: NOTE, INTERFACE, ? Service: ? Author Type: ? Type: Progress Notes Filed: 12/18/2024 02:53 Note Text: Epic Scheduled Downtime: 12/18/2024 1:00:00 AM to 12/18/2024 2:37:00 AM [facility] 12-17-2024 Note HNO ID: [id number] Author: MORIAH LOPEZ MD Service: Hospital Medicine Author Type: Physician Type: Progress Notes Filed: 12/17/2024 08:09 Note Text: HOSPITAL MEDICINE PROGRESS NOTE History: back pain. No other new symptoms. Exam: BP 112/75 Pulse 82 Temp 36.4 ?C (97.5 ?F) (Oral) Resp 16 Ht 142.2 cm (4' 8) Wt 69.2 kg (152 lb 8.9 oz) SpO2 96% BMI 34.20 kg/m? Physical Exam Cardiovascular: Rate and Rhythm: Normal rate. Pulmonary: Effort: Pulmonary effort is normal. Musculoskeletal: General: No swelling. Comments: Can only wiggle feet ASSESSMENT: Ms. Cannon, your 84 years have been affected by poliomyelitis with wheelchair bound status, iron def anemia, ALVERTO on CPAP, assisted living status. You presented to the hospital with multiple falls over past few months and back pain and trouble with ADL's. Found to have T11 compression fracture. Dr. iRchardson reported to me on 12/16 at 6 pm that he spoke with [facility] neurosurgeon animal cruelty investigation supervisor who said that patient isn't a surgical candidate based on her age and chronic functional status and high risk for surgical complications and non-healing. Will focus on pain meds and transition to SNF with brace. Constipation - add laxatives Urine retention - stop sanctura and add flomax. Continue Phoenix, consider void trial in a few days. May be related to fracture but also patient has been constipated since 12/04 and is on medicine that can cause this. Tylenol, solumedrol, oxycodone, lido patch, kpad Active Hospital Problems Diagnosis Date Noted Thoracic compression fracture, closed, initial encounter ([facility]) 12/16/2024 Obesity, Class I, BMI 30-34.9 12/12/2024 Low back pain 12/12/2024 Generalized weakness 07/29/2018 Obstructive sleep apnea on CPAP 07/14/2017 Overview Note: DME--[facility] [employer]--PH # [phone]---FX # [phone]. Postpoliomyelitis syndrome (HCC) 06/03/2014 Restless legs syndrome (RLS) Leg blood clot prevention: heparin SIGNATURE: Moirah Lopez MD DATE: 12/17/2024 TIME: 8:09 AM [facility] 12-17-2024 Note HNO ID: [id number] Author: NOTE, INTERFACE, ? Service: ? Author Type: ? Type: Progress Notes Filed: 12/17/2024 03:45 Note Text: Epic Scheduled Downtime: 12/17/2024 1:00:00 AM to 12/17/2024 3:39:00 AM [facility] 12-16-2024 Note HNO ID: [id number] Author: RACHEL RODRIGEZ RN Service: Care Management Author Type: Registered Nurse Type: Care Mgt Progress Note Filed: 12/16/2024 14:42 Note Text: CARE MANAGEMENT PROGRESS NOTE SERVICE DATE: 12/16/2024 SERVICE TIME: 2:28 PM LOS: 0 days 12/16/24 PT recommended SNF and 12/16/24 OT recommended SNF. SNF Choice: [facility] [place]: Pending. [facility] Trans[facility] and Voice Message left to inform Kamini in Admissions [phone]. Discharge Plan: Longterm Facility - Pending Acceptance and Insurance Authorization/Precert. Discharge Transportation: Medical Transport - [facility]. Patient has been informed that she is responsible for the out of pocket costs for medical transport and she confirms she is agreeable with medical transport. Transport envelope on chart. Needs Prior to Discharge: To Be Determined, Accepting Facility, Insurance Authorization, Precertification, Discharge Transportation CM Dept to Follow. SIGNATURE: Rachel Rodrigez RN PATIENT NAME: Tena Cannon DATE: December 16, 2024 TIME: 2:28 PM [facility] 12-16-2024 Note HNO ID: [id number] Author: GEORGINA RICHARDSON MD Service: Hospital Medicine Author Type: Physician Type: Progress Notes Filed: 12/16/2024 14:30 Note Text: DEPARTMENT OF HOSPITAL MEDICINE PROGRESS NOTE SERVICE DATE: 12/16/2024 SERVICE TIME: 2:23 PM Hospital Medicine/Primary Attending: Georgina Richardson MD NIGHT AND WEEKEND COVERAGE: [place] COVERAGE: Days: [phone], please page attending physician. Nights: [phone], please page [facility] Hospitalist Night coverage pager [phone]. Subjective INTERVAL HPI: Patient is still having pain in her back. LSO brace is pending. MRI with T11 fracture with moderate stenosis. PT/OT eval recommend rehab. 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 Current Facility-Administered Medications Medication Dose Route Frequency polyvinyl alcohol 1.4 % 1 drop (LIQUIFILM TEARS) 1 drop BOTH EYES BID amLODIPine 5 mg tab(s) (NORVASC) 5 mg ORAL BID timolol maleate 0.5 % 1 drop (TIMOPTIC) 1 drop LEFT EYE DAILY cyclopentolate 1 % 1 drop (CYCLOGYL) 1 drop LEFT EYE BID pantoprazole DR 40 mg tab(s) (PROTONIX) 40 mg ORAL DAILY cyclobenzaprine 5 mg tab(s) (FLEXERIL) 5 mg ORAL BID PRN lidocaine 4 % 1 patch (SALONPAS) 1 patch TRANSDERMAL DAILY trospium 20 mg tab(s) (SANCTURA) 20 mg ORAL BID AC NaCl 0.9% iv flush bag 20 mL INTRAVENOUS PRN ondansetron orally disintegrating 4 mg tab(s) (ZOFRAN ODT) 4 mg ORAL q 6 H PRN Or ondansetron (PF) 4 mg injection (ZOFRAN) 4 mg INTRAVENOUS q 6 H PRN oxyCODONE IR 10 mg tab(s) (ROXICODONE) 10 mg ORAL q 4 H PRN senna-docusate 8.6-50 mg 1 tablet (SENNA-S) 1 tablet ORAL BID HYDROmorphone 0.4 mg injection (DILAUDID) 0.4 mg INTRAVENOUS q 3 H PRN lidocaine patch - REMOVE OTHER DAILY And lidocaine - VERIFY PATCH OTHER q 8 H brimonidine 0.2 % 1 drop (ALPHAGAN) 1 drop LEFT EYE TID methylPREDNISolone 6 mg tab(s) (MEDROL) 6 mg ORAL BID w MEALS Followed by [START ON 12/17/2024] methylPREDNISolone 4 mg tab(s) (MEDROL) 4 mg ORAL BID w MEALS Followed by [START ON 12/18/2024] methylPREDNISolone 4 mg tab(s) (MEDROL) 4 mg ORAL ONCE calcium carbonate 750 mg chewable tab(s) (TUMS) 750 mg ORAL TID PRN heparin 5,000 Units injection 5,000 Units SUBCUTANEOUS q 12 H Objective PHYSICAL EXAM: BP 128/53 Pulse 97 Temp (Src) 97.5 (Oral) Resp 18 Ht 4' 8 (1.42m) Wt 152 lb 8.9 oz (69.2kg) SpO2 94% BMI 34.22 kg/(m2). O2 Therapy: Room Air Physical Exam Performed GENERAL: Alert, no distress, cooperative, Obese SKIN: Skin color, texture, turgor normal. No rashes or lesions. HEAD/SINUSES: No significant findings EYES: PERRLA, EOMI LUNGS: Lungs clear to auscultation, Good diaphragmatic excursion CARDIAC: Normal S1 and S2; no rubs, murmurs, or gallops ABDOMEN: Abdomen soft, non-tender, BS normal, No masses or organomegaly EXTREMITIES: No ulcers, Patient has polio and not able to move legs very well. NEURO: Cranial nerves II-XII intact PULSES: 2+ radial, 2+ carotid Lines, Drains, and Airways Line Name Duration Peripheral 12/13/242048 Short Left Forearm 22 Gauge 2 days Peripheral 12/14/24 1257 [facility] Short Right Forearm 22 Gauge 2 days Drain Name Duration Indwelling Urinary Catheter 12/15/24 1938 <1 day Reviewed lines and needs to be continued: REASONS: Intravenous fluids DATA: Diagnostic tests reviewed for today's visit: Recent Labs 12/16/24 1048 12/13/24 0525 12/12/24 1257 12/09/24 0825 12/08/24 1630 WBC 10.28 10.47 12.50* < > 6.48 RBC 4.36 4.39 4.39 < > 4.30 HB 13.4 13.8 13.9 < > 13.6 HCT 38.7 41.1 40.3 < > 39.9 PLT 262 238 239 < > 204 MCV 88.8 93.6 91.8 < > 92.8 MCH 30.7 31.4 31.7 < > 31.6 MPV 10.2 11.1 10.5 < > 10.9 ABSNEUT -- -- 10.52* -- 4.34 NEUTP -- -- 84.1 -- 66.9 LYMPHP -- -- 5.7 -- 18.7 MONOP -- -- 9.6 -- 11.4 EODINP -- -- 0.0 -- 1.9 < > = values in this interval not displayed. Recent Labs 12/16/24 1048 12/13/24 0525 12/12/24 1257 12/10/24 0432 12/09/24 0825 12/08/24 1630 GLUC 117* 101* 126* 95 121* 84 NA 135* 139 139 137 135* 138 K 3.4* 3.8 3.4* 3.6* 3.8 3.8 CHLOR 98 99 98 99 100 99 CO2 24 29 26 28 23 27 CREAT 0.24* 0.33* 0.30* 0.34* 0.31* 0.39* BUN 25* 41* 37* 12 15 18 ANION 13 11 15 10 12 12 CA 9.5 10.6* 10.8* 9.7 9.5 10.1 TPROT -- 7.0 -- 6.9 -- 7.3 ALB -- 3.9 -- 3.7* 3.6* 4.1 TBILI -- 0.7 -- 0.5 -- 0.4 ALKPHOS -- 74 -- 69 -- 68 AST -- 25 -- 17 -- 18 ALT -- 18 -- 12 -- 15 No results found for: HSTNT Most recent imaging Assessment/Plan Problem List Assessment AND Plan Low back pain GERD (gastroesophageal reflux disease) Adjustment disorder with depressed mood Restless legs syndrome (RLS) Postpoliomyelitis syndrome (HCC) Obstructive sleep apnea on CPAP Generalized weakness Dysphagia Hypertension Obesity, Class I, BMI 30-34.9 Thoracic compression fracture, closed, initial encounter ([facility]) HOSPITAL COURSE: Tena Cannon is a 84 year old female presented with past medical his (more content not included)... [facility] 12-16-2024 Note HNO ID: [id number] Author: GEORGINA RICHARDSON MD Service: Care Management Author Type: Registered Nurse Type: Care Mgt Progress Note Filed: 12/27/2024 21:27 Note Text: Attestation signed by Georgina Richardson MD at 12/27/2024 9:27 PM Attending Note I have personally reviewed the note and agree. Other additions or changes: None SIGNATURE: Georgina Richardson MD DATE: December 27, 2024 TIME: 9:27 PM Physician Certification of Less Than 30 Days Skilled Needs Earliest Possible Discharge Date: 12/16/24 To the best of my knowledge, all information provided about the individual is a true and an accurate reflection of Tena Cannon's needs. I certify that following the inpatient level of care, a post-acute nursing facility stay is required for less than 30 days related to the condition(s) for which the patient was treated during the inpatient level of care: Principal Problem: Low back pain Active Problems: GERD (gastroesophageal reflux disease) Adjustment disorder with depressed mood Restless legs syndrome (RLS) Postpoliomyelitis syndrome (HCC) Obstructive sleep apnea on CPAP Generalized weakness Dysphagia Hypertension Obesity, Class I, BMI 30-34.9 Thoracic compression fracture, closed, initial encounter ([facility]) Resolved Problems: Sleep apnea Attending Physician: Georgina Richardson MD [facility] 12-15-2024 Note HNO ID: [id number] Author: GEORGINA RICHARDSON MD Service: Hospital Medicine Author Type: Physician Type: Progress Notes Filed: 12/15/2024 11:49 Note Text: DEPARTMENT OF HOSPITAL MEDICINE PROGRESS NOTE SERVICE DATE: 12/15/2024 SERVICE TIME: 11:47 AM Hospital Medicine/Primary Attending: Georgina Richardson MD NIGHT AND WEEKEND COVERAGE: [place] COVERAGE: Days: [phone], please page attending physician. Nights: [phone], please page [facility] Night coverage pager [phone]. Subjective INTERVAL HPI: Patient is still having pain in her back. LSO brace is pending. Plan for MRI due to the severity of pain. Will order premeds. PT/OT eval pending. Start DVT prophylaxis - monitor for GI bleeding. 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 Current Facility-Administered Medications Medication Dose Route Frequency polyvinyl alcohol 1.4 % 1 drop (LIQUIFILM TEARS) 1 drop BOTH EYES BID amLODIPine 5 mg tab(s) (NORVASC) 5 mg ORAL BID timolol maleate 0.5 % 1 drop (TIMOPTIC) 1 drop LEFT EYE DAILY cyclopentolate 1 % 1 drop (CYCLOGYL) 1 drop LEFT EYE BID pantoprazole DR 40 mg tab(s) (PROTONIX) 40 mg ORAL DAILY cyclobenzaprine 5 mg tab(s) (FLEXERIL) 5 mg ORAL BID PRN lidocaine 4 % 1 patch (SALONPAS) 1 patch TRANSDERMAL DAILY trospium 20 mg tab(s) (SANCTURA) 20 mg ORAL BID AC NaCl 0.9% iv flush bag 20 mL INTRAVENOUS PRN ondansetron orally disintegrating 4 mg tab(s) (ZOFRAN ODT) 4 mg ORAL q 6 H PRN Or ondansetron (PF) 4 mg injection (ZOFRAN) 4 mg INTRAVENOUS q 6 H PRN oxyCODONE IR 10 mg tab(s) (ROXICODONE) 10 mg ORAL q 4 H PRN senna-docusate 8.6-50 mg 1 tablet (SENNA-S) 1 tablet ORAL BID HYDROmorphone 0.4 mg injection (DILAUDID) 0.4 mg INTRAVENOUS q 3 H PRN lidocaine patch - REMOVE OTHER DAILY And lidocaine - VERIFY PATCH OTHER q 8 H brimonidine 0.2 % 1 drop (ALPHAGAN) 1 drop LEFT EYE TID methylPREDNISolone 8 mg tab(s) (MEDROL) 8 mg ORAL BID w MEALS Followed by [START ON 12/16/2024] methylPREDNISolone 6 mg tab(s) (MEDROL) 6 mg ORAL BID w MEALS Followed by [START ON 12/17/2024] methylPREDNISolone 4 mg tab(s) (MEDROL) 4 mg ORAL BID w MEALS Followed by [START ON 12/18/2024] methylPREDNISolone 4 mg tab(s) (MEDROL) 4 mg ORAL ONCE calcium carbonate 750 mg chewable tab(s) (TUMS) 750 mg ORAL TID PRN HYDROmorphone 0.5 mg injection (DILAUDID) 0.5 mg INTRAVENOUS premed once diazePAM 5 mg injection (VALIUM) 5 mg INTRAVENOUS premed once heparin 5,000 Units injection 5,000 Units SUBCUTANEOUS q 12 H Objective PHYSICAL EXAM: BP 148/80 Pulse 99 Temp (Src) 97.7 (Oral) Resp 16 Ht 4' 8 (1.42m) Wt 152 lb 8.9 oz (69.2kg) SpO2 95% BMI 34.22 kg/(m2). O2 Therapy: Room Air Physical Exam Performed GENERAL: Alert, no distress, cooperative, Obese SKIN: Skin color, texture, turgor normal. No rashes or lesions. HEAD/SINUSES: No significant findings EYES: PERRLA, EOMI LUNGS: Lungs clear to auscultation, Good diaphragmatic excursion CARDIAC: Normal S1 and S2; no rubs, murmurs, or gallops ABDOMEN: Abdomen soft, non-tender, BS normal, No masses or organomegaly EXTREMITIES: No ulcers, Patient has polio and not able to move legs very well. NEURO: Cranial nerves II-XII intact PULSES: 2+ radial, 2+ carotid Lines, Drains, and Airways Line Name Duration Peripheral 12/13/242048 Short Left Forearm 22 Gauge 1 day Peripheral 12/14/24 1257 [facility] Short Right Forearm 22 Gauge <1 day Drain Name Duration External Collection Device 12/12/24 1730 2 days Reviewed lines and needs to be continued: REASONS: Intravenous fluids DATA: Diagnostic tests reviewed for today's visit: Recent Labs 12/13/2452412/12/24 1257 12/10/2443112/09/2482412/08/24 1630 WBC 10.47 12.50* 7.99 < > 6.48 RBC 4.39 4.39 4.36 < > 4.30 HB 13.8 13.9 13.8 < > 13.6 HCT 41.1 40.3 40.0 < > 39.9 PLT 238 239 205 < > 204 MCV 93.6 91.8 91.7 < > 92.8 MCH 31.4 31.7 31.7 < > 31.6 MPV 11.1 10.5 10.9 < > 10.9 ABSNEUT -- 10.52* -- -- 4.34 NEUTP -- 84.1 -- -- 66.9 LYMPHP -- 5.7 -- -- 18.7 MONOP -- 9.6 -- -- 11.4 EODINP -- 0.0 -- -- 1.9 < > = values in this interval not displayed. Recent Labs 12/13/2452412/12/24 1257 12/10/2443112/09/2482412/08/24 1630 GLUC 101* 126* 95 121* 84 NA 139 139 137 135* 138 K 3.8 3.4* 3.6* 3.8 3.8 CHLOR 99 98 99 100 99 CO2 29 26 28 23 27 CREAT 0.33* 0.30* 0.34* 0.31* 0.39* BUN 41* 37* 12 15 18 ANION 11 15 10 12 12 CA 10.6* 10.8* 9.7 9.5 10.1 TPROT 7.0 -- 6.9 -- 7.3 ALB 3.9 -- 3.7* 3.6* 4.1 TBILI 0.7 -- 0.5 -- 0.4 ALKPHOS 74 -- 69 -- 68 AST 25 -- 17 -- 18 ALT 18 -- 12 -- 15 No results found for: HSTNT Most recent imaging Assessment/Plan Problem List Assessment AND Plan Low back pain GERD (gastroesophageal reflux disease) Adjustment disorder with depressed mood Restless legs syndrome (RLS) Postpoliomyelitis syndrome (HCC) Obstructive sleep apnea on CPAP Generaliz (more content not included)... [facility] 12-15-2024 Note HNO ID: [id number] Author: RACHEL RODRIGEZ RN Service: Care Management Author Type: Registered Nurse Type: Care Mgt Progress Note Filed: 12/15/2024 09:10 Note Text: CARE MANAGEMENT PROGRESS NOTE SERVICE DATE: 12/15/2024 SERVICE TIME: 8:55 AM LOS: 0 days 12/12/24 Admission Hospital Consult: PT. OT. O2: room air - CPAP Diet: regular Oral steroids 12/14/24: MRI Lumbar Spine ordered 12/15/24 Back Brace ordered PT evaluation and recommendation: Pending OT evaluation and recommendation: Pending Anticipated Discharge Plan: Longterm Facility Only SNF Choice Provided: [facility]: Pending Review of Therapy Evaluations and Insurance Authorization/Precert. Discharge Transportation: Medical Transport - [facility] Transport envelope on chart. Needs Prior to Discharge: To Be Determined, OT/PT Evaluation, Accepting Facility, Insurance Authorization, Precertification, Discharge Transportation, Equipment Delivery (Back Brace) CM Dept to Follow. SIGNATURE: Rachel Rodrigez RN PATIENT NAME: Tena Cannon DATE: December 15, 2024 TIME: 8:53 AM [facility] 12-14-2024 Note HNO ID: [id number] Author: GEORGINA RICHARDSON MD Service: Hospital Medicine Author Type: Physician Type: Progress Notes Filed: 12/14/2024 15:17 Note Text: DEPARTMENT OF HOSPITAL MEDICINE PROGRESS NOTE SERVICE DATE: 12/14/2024 SERVICE TIME: 3:15 PM Hospital Medicine/Primary Attending: Georgina Richardson MD NIGHT AND WEEKEND COVERAGE: [place] COVERAGE: Days: [phone], please page attending physician. Nights: [phone], please page [facility] Night coverage pager [phone]. Subjective INTERVAL HPI: Patient is confused and little on edge today. Likely from the steroids. LSO brace is pending. Plan for MRI due to the severity of pain. Will order premeds. PT/OT eval pending. 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 Current Facility-Administered Medications Medication Dose Route Frequency polyvinyl alcohol 1.4 % 1 drop (LIQUIFILM TEARS) 1 drop BOTH EYES BID amLODIPine 5 mg tab(s) (NORVASC) 5 mg ORAL BID timolol maleate 0.5 % 1 drop (TIMOPTIC) 1 drop LEFT EYE DAILY cyclopentolate 1 % 1 drop (CYCLOGYL) 1 drop LEFT EYE BID pantoprazole DR 40 mg tab(s) (PROTONIX) 40 mg ORAL DAILY cyclobenzaprine 5 mg tab(s) (FLEXERIL) 5 mg ORAL BID PRN lidocaine 4 % 1 patch (SALONPAS) 1 patch TRANSDERMAL DAILY trospium 20 mg tab(s) (SANCTURA) 20 mg ORAL BID AC NaCl 0.9% iv flush bag 20 mL INTRAVENOUS PRN ondansetron orally disintegrating 4 mg tab(s) (ZOFRAN ODT) 4 mg ORAL q 6 H PRN Or ondansetron (PF) 4 mg injection (ZOFRAN) 4 mg INTRAVENOUS q 6 H PRN oxyCODONE IR 10 mg tab(s) (ROXICODONE) 10 mg ORAL q 4 H PRN senna-docusate 8.6-50 mg 1 tablet (SENNA-S) 1 tablet ORAL BID HYDROmorphone 0.4 mg injection (DILAUDID) 0.4 mg INTRAVENOUS q 3 H PRN lidocaine patch - REMOVE OTHER DAILY And lidocaine - VERIFY PATCH OTHER q 8 H brimonidine 0.2 % 1 drop (ALPHAGAN) 1 drop LEFT EYE TID methylPREDNISolone 10 mg tab(s) (MEDROL) 10 mg ORAL BID w MEALS Followed by [START ON 12/15/2024] methylPREDNISolone 8 mg tab(s) (MEDROL) 8 mg ORAL BID w MEALS Followed by [START ON 12/16/2024] methylPREDNISolone 6 mg tab(s) (MEDROL) 6 mg ORAL BID w MEALS Followed by [START ON 12/17/2024] methylPREDNISolone 4 mg tab(s) (MEDROL) 4 mg ORAL BID w MEALS Followed by [START ON 12/18/2024] methylPREDNISolone 4 mg tab(s) (MEDROL) 4 mg ORAL ONCE NaCl 0.9% iv infusion 75 mL/hr INTRAVENOUS CONTINUOUS calcium carbonate 750 mg chewable tab(s) (TUMS) 750 mg ORAL TID PRN [START ON 12/15/2024] HYDROmorphone 0.5 mg injection (DILAUDID) 0.5 mg INTRAVENOUS premed once [START ON 12/15/2024] diazePAM 5 mg injection (VALIUM) 5 mg INTRAVENOUS premed once Objective PHYSICAL EXAM: BP 142/59 Pulse 95 Temp (Src) 97.7 (Oral) Resp 16 Ht 4' 8 (1.42m) Wt 152 lb 8.9 oz (69.2kg) SpO2 93% BMI 34.22 kg/(m2). O2 Therapy: Room Air Physical Exam Performed GENERAL: Alert, no distress, cooperative, Obese SKIN: Skin color, texture, turgor normal. No rashes or lesions. HEAD/SINUSES: No significant findings EYES: PERRLA, EOMI LUNGS: Lungs clear to auscultation, Good diaphragmatic excursion CARDIAC: Normal S1 and S2; no rubs, murmurs, or gallops ABDOMEN: Abdomen soft, non-tender, BS normal, No masses or organomegaly EXTREMITIES: No ulcers, Patient has polio and not able to move legs very well. NEURO: Cranial nerves II-XII intact PULSES: 2+ radial, 2+ carotid Lines, Drains, and Airways Line Name Duration Peripheral 12/13/24 2049 Short Left Forearm 22 Gauge <1 day Peripheral 12/14/24 1257 [facility] Short Right Forearm 22 Gauge <1 day Drain Name Duration External Collection Device 12/12/24 1730 1 day Reviewed lines and needs to be continued: REASONS: Intravenous fluids DATA: Diagnostic tests reviewed for today's visit: Recent Labs 12/13/24 0525 12/12/24 1257 12/10/24 0432 12/09/24 0825 12/08/24 1630 WBC 10.47 12.50* 7.99 < > 6.48 RBC 4.39 4.39 4.36 < > 4.30 HB 13.8 13.9 13.8 < > 13.6 HCT 41.1 40.3 40.0 < > 39.9 PLT 238 239 205 < > 204 MCV 93.6 91.8 91.7 < > 92.8 MCH 31.4 31.7 31.7 < > 31.6 MPV 11.1 10.5 10.9 < > 10.9 ABSNEUT -- 10.52* -- -- 4.34 NEUTP -- 84.1 -- -- 66.9 LYMPHP -- 5.7 -- -- 18.7 MONOP -- 9.6 -- -- 11.4 EODINP -- 0.0 -- -- 1.9 < > = values in this interval not displayed. Recent Labs 12/13/24 0525 12/12/24 1257 12/10/24 0432 12/09/24 0825 12/08/24 1630 GLUC 101* 126* 95 121* 84 NA 139 139 137 135* 138 K 3.8 3.4* 3.6* 3.8 3.8 CHLOR 99 98 99 100 99 CO2 29 26 28 23 27 CREAT 0.33* 0.30* 0.34* 0.31* 0.39* BUN 41* 37* 12 15 18 ANION 11 15 10 12 12 CA 10.6* 10.8* 9.7 9.5 10.1 TPROT 7.0 -- 6.9 -- 7.3 ALB 3.9 -- 3.7* 3.6* 4.1 TBILI 0.7 -- 0.5 -- 0.4 ALKPHOS 74 -- 69 -- 68 AST 25 -- 17 -- 18 ALT 18 -- 12 -- 15 No results found for: HSTNT Most recent imaging Assessment/Plan Problem List Assessment AND Plan Low back pain GERD (gastroesophageal reflux disease) Adjustment disorder with depress (more content not included)... [facility] 12-14-2024 Note HNO ID: [id number] Author: CORRINE PETERSEN RN Service: Care Management Author Type: Registered Nurse Type: Care Mgt Progress Note Filed: 12/14/2024 14:25 Note Text: CARE MANAGEMENT PROGRESS NOTE SERVICE DATE: 12/14/2024 SERVICE TIME: 01:34 PM LOS: 0 days Needs Prior to Discharge: OT/PT Evaluation, Precertification, Discharge Transportation, Other: See Comment (Medical clearance) Met with patient and daughter at bedside to discuss discharge plan. Plan remains for patient to discharged to SNF, referral out to [facility]. Per patient please share all medical information with her daughter Juan. CM will continue to follow. SIGNATURE: Corrine Petersen RN PATIENT NAME: Tena Cannon DATE: December 14, 2024 TIME: 2:22 PM [facility] 12-13-2024 Note HNO ID: [id number] Author: GEORGINA RICHARDSON MD Service: Hospital Medicine Author Type: Physician Type: Progress Notes Filed: 12/13/2024 12:50 Note Text: DEPARTMENT OF HOSPITAL MEDICINE PROGRESS NOTE SERVICE DATE: 12/13/2024 SERVICE TIME: 12:40 PM Hospital Medicine/Primary Attending: Georgina Richardson MD NIGHT AND WEEKEND COVERAGE: [place] COVERAGE: Days: [phone], please page attending physician. Nights: [phone], please page [facility] Night coverage pager [phone]. Subjective INTERVAL HPI: Patient is little bit better compared to yesterday. Will start medrol dose pack and potentially may need MRI due to the severity of pain. Will have brace ordered. PT/OT eval pending. 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 Current Facility-Administered Medications Medication Dose Route Frequency polyvinyl alcohol 1.4 % 1 drop (LIQUIFILM TEARS) 1 drop BOTH EYES BID amLODIPine 5 mg tab(s) (NORVASC) 5 mg ORAL BID timolol maleate 0.5 % 1 drop (TIMOPTIC) 1 drop LEFT EYE DAILY cyclopentolate 1 % 1 drop (CYCLOGYL) 1 drop LEFT EYE BID pantoprazole DR 40 mg tab(s) (PROTONIX) 40 mg ORAL DAILY cyclobenzaprine 5 mg tab(s) (FLEXERIL) 5 mg ORAL BID PRN lidocaine 4 % 1 patch (SALONPAS) 1 patch TRANSDERMAL DAILY NaCl 0.9% iv infusion 100 mL/hr INTRAVENOUS CONTINUOUS trospium 20 mg tab(s) (SANCTURA) 20 mg ORAL BID AC NaCl 0.9% iv flush bag 20 mL INTRAVENOUS PRN ondansetron orally disintegrating 4 mg tab(s) (ZOFRAN ODT) 4 mg ORAL q 6 H PRN Or ondansetron (PF) 4 mg injection (ZOFRAN) 4 mg INTRAVENOUS q 6 H PRN oxyCODONE IR 10 mg tab(s) (ROXICODONE) 10 mg ORAL q 4 H PRN senna-docusate 8.6-50 mg 1 tablet (SENNA-S) 1 tablet ORAL BID HYDROmorphone 0.4 mg injection (DILAUDID) 0.4 mg INTRAVENOUS q 3 H PRN lidocaine patch - REMOVE OTHER DAILY And lidocaine - VERIFY PATCH OTHER q 8 H brimonidine 0.2 % 1 drop (ALPHAGAN) 1 drop LEFT EYE TID [START ON 12/14/2024] methylPREDNISolone 10 mg tab(s) (MEDROL) 10 mg ORAL BID w MEALS Followed by [START ON 12/15/2024] methylPREDNISolone 8 mg tab(s) (MEDROL) 8 mg ORAL BID w MEALS Followed by [START ON 12/16/2024] methylPREDNISolone 6 mg tab(s) (MEDROL) 6 mg ORAL BID w MEALS Followed by [START ON 12/17/2024] methylPREDNISolone 4 mg tab(s) (MEDROL) 4 mg ORAL BID w MEALS Followed by [START ON 12/18/2024] methylPREDNISolone 4 mg tab(s) (MEDROL) 4 mg ORAL ONCE Objective PHYSICAL EXAM: BP 138/52 Pulse 82 Temp (Src) 97.7 (Oral) Resp 16 Ht 4' 8 (1.42m) Wt 152 lb 8.9 oz (69.2kg) SpO2 93% BMI 34.22 kg/(m2). O2 Therapy: Room Air Physical Exam Performed GENERAL: Alert, no distress, cooperative, Obese SKIN: Skin color, texture, turgor normal. No rashes or lesions. HEAD/SINUSES: No significant findings EYES: PERRLA, EOMI LUNGS: Lungs clear to auscultation, Good diaphragmatic excursion CARDIAC: Normal S1 and S2; no rubs, murmurs, or gallops ABDOMEN: Abdomen soft, non-tender, BS normal, No masses or organomegaly EXTREMITIES: No ulcers, Patient has polio and not able to move legs very well. NEURO: Cranial nerves II-XII intact PULSES: 2+ radial, 2+ carotid Lines, Drains, and Airways Line Name Duration Peripheral 12/12/24 1229 [facility] Short Right Forearm 20 Gauge 1 day Peripheral 12/12/24 1249 Right Arm 20 Gauge <1 day Drain Name Duration External Collection Device 12/12/24 1730 <1 day Reviewed lines and needs to be continued: REASONS: Intravenous fluids DATA: Diagnostic tests reviewed for today's visit: Recent Labs 12/13/24 0525 12/12/24 1257 12/10/24 0432 12/09/24 0825 12/08/24 1630 WBC 10.47 12.50* 7.99 < > 6.48 RBC 4.39 4.39 4.36 < > 4.30 HB 13.8 13.9 13.8 < > 13.6 HCT 41.1 40.3 40.0 < > 39.9 PLT 238 239 205 < > 204 MCV 93.6 91.8 91.7 < > 92.8 MCH 31.4 31.7 31.7 < > 31.6 MPV 11.1 10.5 10.9 < > 10.9 ABSNEUT -- 10.52* -- -- 4.34 NEUTP -- 84.1 -- -- 66.9 LYMPHP -- 5.7 -- -- 18.7 MONOP -- 9.6 -- -- 11.4 EODINP -- 0.0 -- -- 1.9 < > = values in this interval not displayed. Recent Labs 12/13/24 0525 12/12/24 1257 12/10/24 0432 12/09/24 0825 12/08/24 1630 GLUC 101* 126* 95 121* 84 NA 139 139 137 135* 138 K 3.8 3.4* 3.6* 3.8 3.8 CHLOR 99 98 99 100 99 CO2 29 26 28 23 27 CREAT 0.33* 0.30* 0.34* 0.31* 0.39* BUN 41* 37* 12 15 18 ANION 11 15 10 12 12 CA 10.6* 10.8* 9.7 9.5 10.1 TPROT 7.0 -- 6.9 -- 7.3 ALB 3.9 -- 3.7* 3.6* 4.1 TBILI 0.7 -- 0.5 -- 0.4 ALKPHOS 74 -- 69 -- 68 AST 25 -- 17 -- 18 ALT 18 -- 12 -- 15 No results found for: HSTNT Most recent imaging Assessment/Plan Problem List Assessment AND Plan Low back pain GERD (gastroesophageal reflux disease) Adjustment disorder with depressed mood Restless legs syndrome (RLS) Postpoliomyelitis syndrome (HCC) Obstructive sleep apnea on CPAP Generalized weakness Dysphagia Hypertension Obesity, Class I, BMI 30-34.9 HOSPITAL COURSE: Tena Cannon is a 84 year o (more content not included)... [facility] 12-13-2024 Note HNO ID: [id number] Author: RACHEL RODRIGEZ, RN Service: Care Management Author Type: Registered Nurse Type: Care Mgt Initial Assessment Filed: 12/13/2024 10:55 Note Text: CARE MANAGEMENT: ASSESSMENT AND DISCHARGE PLAN SERVICE DATE: December 13, 2024 SERVICE TIME: 10:20 AM motor vehicle light assembler spoke with patient at bedside to complete Care Management Assessment. Introduction made and role of Care Management explained. PCP: Sahra Guy MD - Patient confirmed Primary Contact: Primary Emergency Contact: Juan Bazzi Relation: Daughter Admission Status: Observation Insurance Provider: [employer] PPO Discharge Planning requested by: Per Department Practice Potential Transition Plans (Longterm Facility) Advance Directives Current Advance Directive: Living Will In Chart: Yes Current Living Arrangements and Support Lives with: Alone (Assisted Living Facility: [facility]) Type of Residence: Assisted Living Facility Care Facility Name: Assisted Living Facility: [facility] Support: Family members How do you manage to accomplish the following: Independent: Medication Management Needs Assistance: Bathe/Shower, Dress, Meals/Meal Prep, Going to the bathroom Dependent: Ambulation, Transportation to appointments/community Current Services/Equipment Current Post-Acute Service(s): DME Current DME Type: Wheelchair-manual, Wheelchair-electric, Continuous Positive Airway Pressure Current Post-Acute Service(s) Provider: None Discharge Planning Patient Goal(s): Increase strength Patient states she uses wheelchair and electric wheel chair for mobility. She reports she usually transfers herself with standby assist. Clarence of Choice Explained: Clarence of Choice Given: Yes (Patient confirms she is agreeable to a SNF referral to [facility].) Level of Care Discussed: Longterm Facility Are you interested in bedside delivery of your medications? Service Not Available Discharge Pharmacy Preference: [facility] in [place] Discharge Planning Participant(s): Patient Transport at Discharge: Transportation Arrangements: Ambulance Transportation Agency and Phone #:: [facility] [phone] Type of Service: BLS Non-emergency Is Patient Medicaid Pending?: No Was transportation financial coverage discussed with family?: Patient (Patient has been informed that she is responsible for all out of pocket costs for medical transportation at discharge.) [employer] Location: [facility] Care Management Responsibility: None Needs Prior to Discharge: Needs Prior to Discharge: To Be Determined, OT/PT Evaluation, Accepting Facility, Insurance Authorization, Precertification, Discharge Transportation Post-Acute Discharge Plan: From Assisted Living Facility: [facility]. Patient reports she uses manual wheelchair or electric wheelchair for mobility. Patient reports she is able to transfer herself with one standby assist at baseline. Patient reports she manages her own medications and her meals are provided by the assisted living facility. [facility] and states her daughter has talked with them. Referral sent in [facility] Transitions. Patient will need PT AND OT evaluations and insurance Precert for SNF. Discharge Transportation: Medical Transport - [facility]. RN DEMETRIUS informed patient she is responsible for all out of pocket costs for medical transport not covered by insurance. Patient confirms she is agreeable with medical transport at discharge. CM Dept to Follow. SIGNATURE: Rachel Rodrigez RN PATIENT NAME: Tena Cannon DATE: December 13, 2024 TIME: 10:20 AM [facility] 12-09-2024 Note HNO ID: [id number] Author: CORRINE PETERSEN RN Service: Care Management Author Type: Registered Nurse Type: Care Mgt Initial Assessment Filed: 12/09/2024 16:07 Note Text: CARE MANAGEMENT: ASSESSMENT AND DISCHARGE PLAN SERVICE DATE: December 09, 2024 SERVICE TIME: 4:03 PM PCP: Sahra Guy MD (confirmed) Primary Contact: Extended Emergency Contact Information Primary Emergency Contact: Juan Bazzi [place] Relation: Daughter Admission Status: Observation Insurance Provider: [employer] PPO Discharge Planning requested by: Per Department Practice Potential Transition Plans Home, Other: See Comment (Patient declining HHC or need for PT/OT) Advance Directives Current Advance Directive: Living Will In Chart: Yes Up To Date and Valid: Yes Current Living Arrangements and Support Lives with: Alone Type of Residence: Assisted Living Facility Does the patient have to climb stairs at home?: No Care Facility Name: [facility] Support: Children, Family members How do you manage to accomplish the following: Independent: Bathe/Shower, Dress, Going to the bathroom, Medication Management Needs Assistance: Ambulation, Meals/Meal Prep Dependent: Transportation to appointments/community Current Services/Equipment Current Post-Acute Service(s): DME Current DME Type: Shower seat, Wheelchair-electric, Rollator Scooter Discharge Planning Patient Goal(s): General wellness, Be able to go home Clarence of Choice Explained: Clarence of Choice Given: No Reason Not Given: Unable to complete with this assessment - revisit Are you interested in bedside delivery of your medications? No Discharge Planning Participant(s): Patient Patient/Family Comments: Caregiver Assessment: Caregiver is ready, willing and able to meet the patient's needs as recommended by the inter-professional team: Yes Name of Caregiver: Assisted Living Transport at Discharge: Transportation Arrangements: Ambulance Transportation Agency and Phone #:: [facility] [phone] Needs Prior to Discharge: Needs Prior to Discharge: Other: See Comment (Pain control, medical clearance) Post-Acute Discharge Plan: Return to Assisted Living Met with patient at bedside, introduced self/role of TCC. Patient presented to [facility] c/o lower back/flank plan. Patient admitted to Observation for further evaluation and treatment. Patient lives at [place] [facility]. She reports being independent with most ADLs and IADLs. Due to Polio as a child patient is wheelchair bound. Patient is able to transfer herself. OT recommended SNF, patient and daughter both declined. CM will continue to follow for discharge planning needs. Patient will need ambulance transport at discharge. SIGNATURE: Corrine Petersen RN PATIENT NAME: Tena Cannon DATE: December 09, 2024 TIME: 4:02 PM [facility] 12-09-2024 Telephone encounter Note don Martinez called and stated lidocaine patches are denied and the insurance has faxed an appeal form to our office. She is requesting this is completed. Please call [facility] [phone] at 8-5pm central time. Please follow up with the daughter. [facility] 12-09-2024 Miscellaneous Notes don Martinez called and stated lidocaine patches are denied and the insurance has faxed an appeal form to our office. She is requesting this is completed. Please call [facility] [phone] at 8-5pm central time. Please follow up with the daughter. PA submitted. Response pending. Patient daughterJuan is calling Sahra Guy MD today to request a prior authorization for the lidocaine 5% per pharmacy [facility] [place] on [address] Please call daughter with updates on this PA Patient has been identified by name and birthdate. Person calling: daughter: Juan Call patient daughter Juan [phone] (home) [phone] (cell) Was an appointment scheduled: No Closing statement: Prior Auth needed for the Jerson Monroe documented in this encounter [facility] 12-09-2024 Note HNO ID: [id number] Author: ZAYNAB VALENCIA DO Service: Hospital Medicine Author Type: Physician Type: Progress Notes Filed: 12/10/2024 02:15 Note Text: DEPARTMENT OF HOSPITAL MEDICINE PROGRESS NOTE SERVICE DATE: 12/09/2024 SERVICE TIME: 2:14 PM Hospital Medicine/Primary Attending: Zaynab Valencia DO NIGHT AND WEEKEND COVERAGE: [employer] COVERAGE: Days: [phone], please page attending physician. Nights: [phone], please page [facility] Night coverage pager [phone]. Subjective INTERVAL HPI: denies any chest pain or sob. Patient states she was sitting on wheelchair, placed belt around her leg and pulled a stick and fell backward and landed on her buttock and right side. Complains of right sided low back pain. Denies any hip pain. Non radiating to lower extremity. No saddle anesthesia, denies any numbness or tingling. No loss of bowel or bladder control. Denies any injuries to head, neck, hip or elbow. Denies any bleeding. Has noted right lower extremity edema. Current Facility-Administered Medications Medication Dose Route Frequency lidocaine patch - REMOVE OTHER ONCE And lidocaine - VERIFY PATCH OTHER ONCE prednisoLONE acetate 1 % 1 drop (PRED FORTE) 1 drop LEFT EYE BID PRN sulfacetamide 10 % 1 drop (BLEPH-10) 1 drop BOTH EYES QID timolol maleate 0.5 % 1 drop (TIMOPTIC) 1 drop LEFT EYE DAILY pantoprazole DR 40 mg tab(s) (PROTONIX) 40 mg ORAL DAILY lidocaine 4 % 1 patch (SALONPAS) 1 patch TRANSDERMAL DAILY ferrous sulfate 325 mg tab(s) 325 mg ORAL DAILY NaCl 0.9% iv flush bag 20 mL INTRAVENOUS PRN acetaminophen 650 mg tab(s) (TYLENOL) 650 mg ORAL q 6 H PRN amLODIPine 5 mg tab(s) (NORVASC) 5 mg ORAL DAILY trospium 20 mg tab(s) (SANCTURA) 20 mg ORAL BID AC heparin 5,000 Units injection 5,000 Units SUBCUTANEOUS q 12 H cyclobenzaprine 5 mg tab(s) (FLEXERIL) 5 mg ORAL TID PRN polyethylene glycol 3350 17 g packet 17 g ORAL DAILY PRN oxyCODONE IR 5 mg tab(s) (ROXICODONE) 5 mg ORAL q 6 H PRN ondansetron (PF) 4 mg injection (ZOFRAN) 4 mg INTRAVENOUS q 6 H PRN Objective PHYSICAL EXAM: BP 172/67 Pulse 65 Temp (Src) 98.2 (Oral) Resp 18 Ht 4' 8 (1.42m) Wt 160 lb 0.9 oz (72.6kg) SpO2 94% BMI 35.90 kg/(m2). O2 Therapy: Room Air Physical Exam Performed GENERAL: Alert, no distress, cooperative LUNGS: Lungs clear to auscultation, Good diaphragmatic excursion CARDIAC: Normal S1 and S2; no rubs, murmurs, or gallops ABDOMEN: Abdomen soft, non-tender, BS normal, No masses or organomegaly EXTREMITIES: right lower extremity edema noted Lines, Drains, and Airways Line Duration Peripheral 12/08/24 1631 [facility] Left Antecubital 20 Gauge <1 day DATA: Diagnostic tests reviewed for today's visit: Most recent labs Most recent imaging Assessment/Plan Problem List Assessment AND Plan Frequent falls Low back pain Restless legs syndrome (RLS) Post-polio syndrome (HCC) Obstructive sleep apnea on CPAP [facility] BMI 37.0-37.9, adult Dysphagia HOSPITAL COURSE: Tena Cannon is a 84 year old female presented with past medical history of iron deficiency anemia, and obstructive sleep apnea on CPAP, presented from her assisted living facility after being referred by her PCP for evaluation of a fall and generalized weakness. The patient reports that on 12/25, she fell forward from her wheelchair and landed on her buttocks. Since the fall, she has been experiencing persistent back pain. Patietn states that she started noticing worsening weakness and increased frequency of falls for the past few months.She endorses dysphagia over the past two months, particularly with solid foods such as bread. Her medical history is notable for childhood polio and post-polio syndrome diagnosed at age 48, which led to loss of ambulation and wheelchair dependence. She has not followed with a neurologist in several years. She also complains of chronic sciatica and has been sleeping in a recliner for several months. She has a known intolerance to NSAIDs due to concerns for ocular bleeding and reports minimal medication use aside from occasional Tylenol. She is able to take tramadol if needed. The patient denies head trauma, fever, chills, chest pain, dyspnea, urinary symptoms, abdominal pain, nausea, or vomiting. Her PCP noted poor oral intake and right flank pain, prompting the referral. Patient is AO x 3 no focal neurological deficit Labs showed unremarkable, COVID/flu/RSV negative urinalysis negative for UTI CT L-spine and abdominal pelvis show no acute findings or no traumatic subluxation or fracture Chest x-ray showed left lower lobe opacity may be related to atelectasis In the ED, paient received dilaudid 0.25mg stat, labetalol 100mg oral stat Principal problem: Mechanical fall with intractable lower back pain Frequent Falls Generalized weakness Dysphagia of solid food Post Polio syndrome -fall from wheelchair with (more content not included)... [facility] 12-09-2024 Note HNO ID: [id number] Author: HUONG SANZ RN Service: Nursing Author Type: Registered Nurse Type: Nursing Progress Note Filed: 12/09/2024 02:31 Note Text: 0000 Spoke to respiratory therapist,patient refused CPAP for tonight. 0100 EKG done. [facility] 12-08-2024 Note SARS-COV-2 (AGENT OF COVID-19) RNA: Not detected INFLUENZA A RNA: Not detected INFLUENZA B RNA: Not detected RESPIRATORY SYNCYTIAL VIRUS (RSV) RNA: Not detected [facility] Comment on above: Performed By: #### 9 [id number] ####[facility] [id number] [place] [address] [place] 12-08-2024 Telephone encounter Note Tena called in about the Xrays and asked if the mobile unit will be out to take her xrays. She also stated there is no nurse Anais at her facility. Told Tena I would call her daughter to see if there is any update on this and to see what we can do to help as Tena seemed to be confused on the situation. There are several encounters in patient's chart including another from today where her daughter was being advised to take Tena to the ER. Called her daughter to ask if the mobile unit was being sent out to her mom, and to make sure they are being taken care of. Juan said no they have not gone to the facility still, and that the nursing staff at her facility has not been helpful with certain things, and that she is headed home to take Tena to [facility] since she has other symptoms as well. [facility] 12-08-2024 Miscellaneous Notes Tena called in about the Xrays and asked if the mobile unit will be out to take her xrays. She also stated there is no nurse Anais at her facility. Told Tena I would call her daughter to see if there is any update on this and to see what we can do to help as Tena seemed to be confused on the situation. There are several encounters in patient's chart including another from today where her daughter was being advised to take Tena to the ER. Called her daughter to ask if the mobile unit was being sent out to her mom, and to make sure they are being taken care of. Juan said no they have not gone to the facility still, and that the nursing staff at her facility has not been helpful with certain things, and that she is headed home to take Tena to [facility] since she has other symptoms as well. Called and spoke with Nurse Anais. Anais is new but she believes that yes a mobile xray services comes. Faxed over xray orders and lidocaine order. Called and left VM with pt contact Juan. Called and notified pt. The following approved medication requests have been transmitted electronically. Requested Prescriptions Signed Prescriptions Disp Refills lidocaine HCL 4 % ptmd 60 patch 1 Sig: Apply to painful area once daily, remove after 12 hours Can they do a portable x ray at the facility ? Sahra Guy MD Patient is returning call and states she fell on Thursday at home (assisted Living), and has increase back pain since the fall, she is aware of x-rays orders but states her back hurts so bad to even get dress, She is also aware Voice Mail is full and will clear it.Please advise the patient. Received request for orders for lidocaine patches or topical biofreeze from [facility]. Please advise. Mailbox is full. No message left Has she had the lumbar x rays? Order placed in Sep. Back issues handled through spine or pain managemtn department not regular ortho Encounter Diagnosis ICD-10-CM 1. Acute left-sided low back pain with left-sided sciatica M54.42 CONSULT TO MUSC/SPINE/OCC MED Sahra Guy MD Answer Assessment - Initial Assessment Questions Requesting a consult to Orthopedics The rehab didn't do anything for the Sciatica And they recommended a cortisone injection. Protocols used: Information Only Call - No [id number] documented in this encounter [facility] 12-08-2024 Telephone encounter Note Daughter Juan left VM, inquiring regarding previous call. Called and spoke with Juan who states she just listened to VM and will be heading back to pt's home to notify EMS for pt to be evaluated in ED. Corrine Lopez RN [facility] 12-08-2024 Miscellaneous Notes Daughter Juan left VM, inquiring regarding previous call. Called and spoke with Juan who states she just listened to VM and will be heading back to pt's home to notify EMS for pt to be evaluated in ED. Corrine Lopez RN Called Anjanae at [phone]-left detailed message on identified VM with PCP message below. Called patient at [phone] -no answer. VM not set up-could not leave message. Corrine Lopez RN She should go to ER by ambulance. May have kidney infection causing back pain, sounds like she is dehydrated. Sahra Guy MD Called and spoke with Juan and her sister States nausea ongoing for at least 5 days Unsure of cause All pt is eating is one container of yogurt daily Tried different foods, easier to chew like salmon and egg salad Any time she moves she complains of nausea Pt has not vomited to her knowledge Trying to drink more but likely not hydrated enough Has protein shakes but making her nauseous as well Was complaining of headache and shakiness a few days ago but no longer Has not gotten dressed or left her room because she is having too much pain from her fall Discussed pt may need ER eval if concern for dehydration and given that there is no known cause for nausea and it is not improving Daughters are hesitant to take her and states mom has not moved from her recliner d/t pain Asked if she would be able to bring pt in for appt, they state it is very difficult to move her and get her dressed with her history of polio and recent fall Asking if PCP has any recs Reason for Disposition Patient sounds very sick or weak to the triager Protocols used: [id number] Patient's daughter Juan is calling Sahra Guy MD today with concern regarding patient having nausea and barely eating Patient has been identified by name and birthdate. Duration of symptoms: 5 days Please return call to daughter Juan [phone] Was an appointment scheduled: No Closing statement: Symptom Call: Thank you for calling [facility], your call is very important. A nurse will call in approximately 2-4 hours during business hours. If this is an emergency, please contact 911. Alicia Sultana documented in this encounter [facility] 12-08-2024 Miscellaneous Notes Please see triage encounter 12/08/24 Called and spoke with pt and daughter Juan. 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 Pt would like to know how long it will take for muscle to recover. Please advise. The following approved medication requests have been transmitted electronically. Requested Prescriptions Signed Prescriptions Disp Refills lidocaine (LIDODERM) 5 % 30 patch 2 Sig: Apply 1 patch as directed once daily. REMOVE AFTER 12 HOURS. Authorizing Provider: SAHRA GUY Pharmacy Information Pharmacy Address Telephone [facility]/pharmacy #[id number] [place], [place] [id number] Sahra Guy MD Patient's daughter is calling that the Rx Lidocaine is not covered for the 4% but the 5% is. She is asking if this can be re-ordered as such and sent to [facility] while she is in the [facility] today. Please call Juan if the Rx is being changed/sent. [phone] documented in this encounter [facility] 12-08-2024 Telephone encounter Note Please see triage encounter 12/08/24 [facility] 12-08-2024 Telephone encounter Note PA submitted. Response pending. [facility] 12-08-2024 Telephone encounter Note Called Anjanae at [phone]-left detailed message on identified VM with PCP message below. Called patient at [phone] -no answer. VM not set up-could not leave message. Corrine Lopez RN [facility] 12-08-2024 Telephone encounter Note She should go to ER by ambulance. May have kidney infection causing back pain, sounds like she is dehydrated. Sahra Guy MD [facility] 12-08-2024 Telephone encounter Note Called and spoke with Juan and her sister States nausea ongoing for at least 5 days Unsure of cause All pt is eating is one container of yogurt daily Tried different foods, easier to chew like salmon and egg salad Any time she moves she complains of nausea Pt has not vomited to her knowledge Trying to drink more but likely not hydrated enough Has protein shakes but making her nauseous as well Was complaining of headache and shakiness a few days ago but no longer Has not gotten dressed or left her room because she is having too much pain from her fall Discussed pt may need ER eval if concern for dehydration and given that there is no known cause for nausea and it is not improving Daughters are hesitant to take her and states mom has not moved from her recliner d/t pain Asked if she would be able to bring pt in for appt, they state it is very difficult to move her and get her dressed with her history of polio and recent fall Asking if PCP has any recs Reason for Disposition Patient sounds very sick or weak to the triager Protocols used: [id number] [facility] 12-08-2024 Telephone encounter Note Patient's daughter Juan is calling Sahra Guy MD today with concern regarding patient having nausea and barely eating Patient has been identified by name and birthdate. Duration of symptoms: 5 days Please return call to daughter Juan [phone] Was an appointment scheduled: No Closing statement: Symptom Call: Thank you for calling [facility], your call is very important. A nurse will call in approximately 2-4 hours during business hours. If this is an emergency, please contact 911. Alicia Sultana [facility] 12-08-2024 Telephone encounter Note Patient daughterJuan is calling Sahra Guy MD today to request a prior authorization for the lidocaine 5% per pharmacy [facility] in [place] on [address] Please call daughter with updates on this PA Patient has been identified by name and birthdate. Person calling: daughter: Juan Call patient daughter Juan [phone] (home) [phone] (cell) Was an appointment scheduled: No Closing statement: Prior Auth needed for the Lidocaine Norma Monroe [facility] 12-07-2024 Telephone encounter Note Called and spoke with pt and daughter Juan. 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 Pt would like to know how long it will take for muscle to recover. Please advise. [facility] 12-07-2024 Telephone encounter Note The following approved medication requests have been transmitted electronically. Requested Prescriptions Signed Prescriptions Disp Refills lidocaine (LIDODERM) 5 % 30 patch 2 Sig: Apply 1 patch as directed once daily. REMOVE AFTER 12 HOURS. Authorizing Provider: SAHRA GUY Pharmacy Information [facility] Address [id number] [place] [id number] Sahra Guy MD [facility] 12-07-2024 Telephone encounter Note Patient's daughter is calling that the Rx Lidocaine is not covered for the 4% but the 5% is. She is asking if this can be re-ordered as such and sent to [facility] while she is in the [facility] today. Please call Juan if the Rx is being changed/sent. [phone] [facility] 12-06-2024 Telephone encounter Note Called and spoke with Nurse Anais. Anais is new but she believes that yes a mobile xray services comes. Faxed over xray orders and lidocaine order. Called and left VM with pt contact Juan. Called and notified pt. [facility] 12-06-2024 Telephone encounter Note The following approved medication requests have been transmitted electronically. Requested Prescriptions Signed Prescriptions Disp Refills lidocaine HCL 4 % ptmd 60 patch 1 Sig: Apply to painful area once daily, remove after 12 hours Can they do a portable x ray at the facility ? Sahra Guy MD [facility] 12-06-2024 Telephone encounter Note Patient is returning call and states she fell on Thursday at home (assisted Living), and has increase back pain since the fall, she is aware of x-rays orders but states her back hurts so bad to even get dress, She is also aware Voice Mail is full and will clear it.Please advise the patient. [facility] 12-05-2024 Telephone encounter Note Received request for orders for lidocaine patches or topical biofreeze from [facility]. Please advise. [facility] 12-05-2024 Telephone encounter Note Mailbox is full. No message left [facility] 12-05-2024 Telephone encounter Note Has she had the lumbar x rays? Order placed in Sep. Back issues handled through spine or pain managemtn department not regular ortho Encounter Diagnosis ICD-10-CM 1. Acute left-sided low back pain with left-sided sciatica M54.42 CONSULT TO MUSC/SPINE/OCC MED Sahra Guy MD [facility] 12-02-2024 Telephone encounter Note Answer Assessment - Initial Assessment Questions Requesting a consult to Orthopedics The rehab didn't do anything for the Sciatica And they recommended a cortisone injection. Protocols used: Information Only Call - No [id number] [facility] Work Phone: 11-30-2024 Note HNO ID: [id number] Author: JOAQUIN CHILDRESS CPhT Service: ? Author Type: Manager Employment Type: Progress Notes Filed: 11/30/2024 09:12 Note Text: Patient is identified through a medication adherence outreach initiative based on pharmacy claims data from: [employer] Medication Adherence Category: Diabetes First Review Attribution Status: Correct Attribution Medication(s) Metformin 500 mg Medication Status per portal/Epic Reconcile Dispense: Filled late - Within 7 days after next fill date Date Filled (MM/DD): 11/25/24 due 11/21/24 Day Supply: 90 Medication Status per Profile Review: No issues per profile review Patient appropriate for outreach? No Reason patient not appropriate for outreach:Patient filled on time / no adherence concerns to be addressed Joaquin Childress CPhT [facility] Based Care Pharmacy Team [facility] 11-30-2024 History of Present illness Narrative Patient is identified through a medication adherence outreach initiative based on pharmacy claims data from: [employer] Medication Adherence Category: Diabetes First Review Attribution Status: Correct Attribution Medication(s) Metformin 500 mg Medication Status per portal/Epic Reconcile Dispense: Filled late - Within 7 days after next fill date Date Filled (MM/DD): 11/25/24 due 11/21/24 Day Supply: 90 Medication Status per Profile Review: No issues per profile review Patient appropriate for outreach? No Reason patient not appropriate for outreach:Patient filled on time / no adherence concerns to be addressed Joaquin Childress CPhT [facility] Care Pharmacy Team documented in this encounter [facility] 11-30-2024 Note Patient Outreach ( POHE) TENA CANNON ([id number]) 1940 F Date Time Provider Department 11/30/24 SAHRA GUY During your visit today, we recorded the following information about you: Joaquin Childress CPhT 11/30/2024 9:12 AM Signed Patient is identified through a medication adherence outreach initiative based on pharmacy claims data from: [facility] Medication Adherence Category: Diabetes First Review Attribution Status: Correct Attribution Medication(s) Metformin 500 mg Medication Status per portal/Epic Reconcile Dispense: Filled late - Within 7 days after next fill date Date Filled (MM/DD): 11/25/24 due 11/21/24 Day Supply: 90 Medication Status per Profile Review: No issues per profile review Patient appropriate for outreach? No Reason patient not appropriate for outreach:Patient filled on time / no adherence concerns to be addressed Joaquin Childress CPhT [facility] Pharmacy Team Allergies As of Date: 11/30/2024 Noted Allergy Reaction KEFLEX (CEPHALEXIN) 05/12/2005 6 - Diarrhea 8 - GI Upset Comments: extreme diarrhea VIOXX (ROFECOXIB) 05/12/2005 5 - Intolerance Comments: Makes capillaryblood vessels break NOVOCAIN (PROCAINE HCL) 01/13/2024 5 - Intolerance Comments: headaches OMEGA-3 FISH OIL (OMEGA-3 FATTY A*05/05/2007 5 - Intolerance Comments: bleeding in eye ADVIL (IBUPROFEN) 05/28/2005 5 - Intolerance Comments: Makes capillary blood vessels bread ASA (SALICYLATES) 05/28/2005 5 - Intolerance Comments: Makes capillary blood vessels break Date Reviewed: 09/16/2024 Reviewed by: Malika Sheikh LPN - Fully Assessed Reason for Visit: Allied Health Visit [5] Cmt: Medication Adherence Outreach Prescriptions as of 11/30/2024 - metFORMIN (GLUCOPHAGE) 500 mg tablet Take 1 tablet by mouth daily with breakfast. - oxybutynin ER (DITROPAN XL) 10 mg 24 hr tablet Take 1 tablet by mouth once daily. - esomeprazole (NEXIUM) 40 mg capsule TAKE 1 CAPSULE DAILY BEFOREBREAKFAST. 1/2 HOUR BEFORE A MEAL - esomeprazole (NEXIUM) 40 mg capsule TAKE 1 CAPSULE DAILY BEFOREBREAKFAST. 1/2 HOUR BEFORE A MEAL - metroNIDAZOLE (METROGEL) 0.75 % Topical Gel APPLY 1 APPLICATION TO AFFECTED AREA ONCE DAILY TOFACE - brimonidine (ALPHAGAN P) 0.1 % drop - loratadine (CLARITIN ORAL) Take by mouth. - nystatin-triamcinolone (MYCOLOG) ointment Apply sparingly to perineum twice daily for irritation/infection. - atropine 1 % ophthalmic solution - sulfacetamide (BLEPH-10) 10 % ophthalmic solution Use 1 Drop in both eyes four times daily. INSIDE LOWER EYELID(S) 1-4 TIMES DAILY AND AT BEDTIME - miconazole (MONISTAT 7) 2 % vaginal cream Use 1 Applicator vaginally daily at bedtime. - calcium carbonate (CALCIUM 500 ORAL) Take by mouth every other day. - BIOTIN ORAL Take 1 capsule by mouth once daily. - vitamin B complex (B COMPLEX VITAMINS ORAL) Take 1 tablet by mouth once daily. - ergocalciferol, vitamin D2, (VITAMIN D2 ORAL) Take 1 tablet by mouth once daily. - ferrous sulfate 325 mg (65 mg iron) tablet Take 325 mg by mouth every other day. - therapeutic multivitamin w/ iron (THERAGRAN-M) 9 mg iron-400 mcg tablet Take 1 tablet by mouth once daily. - prednisoLONE acetate (PRED FORTE, ECONOPRED PLUS) 1 % ophthalmic suspension Use 1 Drop in the left eye twice daily as needed. - timolol maleate (TIMOPTIC) 0.5 % ophthalmic solution Use 1 Drop in the left eye every morning. - polyvinyl alcohol (LIQUID TEARS OPHTHALMIC) Use in eyes. - rutin/hesp/bioflav/C/ (BIOFLEX ORAL) Take 1 capsule by mouth twice daily. - CPAP BipaP @ 14/9 cm of water with humidification, removable water dispenser (for cleaning) . Mask (small/ per patient preference) , filters, tubing, humidifier and lifetime supplies. (G47.33, Z99.89) Obstructive sleep apnea on CPAP - cyclopentolate (CYCLOGYL) 1 % ophthalmic solution Use 1 Drop in the left eye two times a day. 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 [facility] 10-24-2024 Telephone encounter Note Received 10/21/2024 from [facility]. Placed in provider's inbox for review. Route to [place] for faxing [facility] 10-24-2024 Miscellaneous Notes Received 10/21/2024 from [facility]. Placed in provider's inbox for review. Route to [place] for faxing documented in this encounter [facility] 10-19-2024 Telephone encounter Note Received orders from [facility] and [facility]. Placed in provider's inbox for review. Route to [place] fax [facility] 10-19-2024 Miscellaneous Notes Received orders from [facility] and [facility]. Placed in provider's inbox for review. Route to [place] fax documented in this encounter [facility] 10-12-2024 Telephone encounter Note Verbal order given [facility] 10-12-2024 Miscellaneous Notes Verbal order given Yes, please give verbal order Leonid Leal APRN.ANTONY Tena is calling Sahra Guy MD today with concern regarding PT Eval Physical therapy once a week for eight weeks. Patient has been identified by name and birthdate. Duration of symptoms: N/A Person calling: [facility] Physical therapy Closing statement: Results or non-symptom based questions: Thank you for calling [facility], your call will be returned within the next business day. Cris Boucher documented in this encounter [facility] 10-12-2024 Telephone encounter Note Yes, please give verbal order Leonid Leal APRN.APPLIED STATISTICIAN [facility] 10-12-2024 Telephone encounter Note Tena is calling Sahra Guy MD today with concern regarding PT Eval Physical therapy once a week for eight weeks. Patient has been identified by name and birthdate. Duration of symptoms: N/A Person calling: [facility] Physical therapy Closing statement: Results or non-symptom based questions: Thank you for calling [facility], your call will be returned within the next business day. Cris Boucher [facility] 10-11-2024 Telephone encounter Note Verbal order given to per Dr Guy's original order for OT. [facility] 10-11-2024 Miscellaneous Notes Verbal order given to per Dr Guy's original order for OT. Jonathon from [facility] is calling for a verbal order for patient's home health care physical therapy. documented in this encounter [facility] 10-11-2024 Telephone encounter Note Jonathon from [facility] is calling for a verbal order for patient's home health care physical therapy. [facility] Work Phone: 10-11-2024 Telephone encounter Note Orders faxed. [facility] 10-11-2024 Miscellaneous Notes Orders faxed. 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 Muscle strain of lower leg, unspecified laterality, initial encounter S86.919A CONSULT TO PHYSICAL THERAPY CONSULT TO MANAGEMENT COORDINATOR 3. Falls frequently R29.6 CONSULT TO MANAGEMENT COORDINATOR Please fax order , does she know which agency comes to her facility Sahra Guy MD Patient wanting an OT referral to educate and advise patient on ways not to fall in the bathroom. Generally speaking, physical therapy addresses lower extremity issue. Happy to initiate referral Therapy order placed. 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 Muscle strain of lower leg, unspecified laterality, initial encounter S86.700J CONSULT TO PHYSICAL THERAPY Fax to facility Sahra Guy MD Tena is calling Sahra Guy MD today with concern regarding she slipped in shower even with anti-slip sticks on shower floor. She stated muscles in her legs are getting worse to move, she had polio and it also affects the nerves. She feels like she would benefit with occupational therapy. Please call her today. Patient has been identified by name and birthdate. Duration of symptoms: N/A Person calling: self Call patient at: at home [phone] (home) [phone] (cell) Was an appointment scheduled: No Closing statement: Results or non-symptom based questions: Thank you for calling [facility], your call will be returned within the next business day. 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 Muscle strain of lower leg, unspecified laterality, initial encounter S86.917P CONSULT TO PHYSICAL THERAPY CONSULT TO MANAGEMENT COORDINATOR 3. Falls frequently R29.6 CONSULT TO MANAGEMENT COORDINATOR Please fax order , does she know which agency comes to her facility Sahra Guy MD [facility] 10-06-2024 Telephone encounter Note Patient wanting an OT referral to educate and advise patient on ways not to fall in the bathroom. [facility] 10-06-2024 Telephone encounter Note Generally speaking, physical therapy addresses lower extremity issue. Happy to initiate referral Therapy order placed. 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 Muscle strain of lower leg, unspecified laterality, initial encounter R59.542Z CONSULT TO PHYSICAL THERAPY Fax to facility Sahra Guy MD [facility] 10-06-2024 Telephone encounter Note Tena is calling Sahra Guy MD today with concern regarding she slipped in shower even with anti-slip sticks on shower floor. She stated muscles in her legs are getting worse to move, she had polio and it also affects the nerves. She feels like she would benefit with occupational therapy. Please call her today. Patient has been identified by name and birthdate. Duration of symptoms: N/A Person calling: self Call patient at: at home [phone] (home) [phone] (cell) Was an appointment scheduled: No Closing statement: Results or non-symptom based questions: Thank you for calling [facility], your call will be returned within the next business day. Tete Boucher [facility] 09-26-2024 Telephone encounter Note Spoke to patient who was advised of provider's message and verbalized understanding. [facility] 09-26-2024 Miscellaneous Notes Spoke to patient who was advised of provider's message and verbalized understanding. L hip x ray Lumbar x ray ordered. Tramadol Rx sent. The following approved medication requests have been transmitted electronically. Requested Prescriptions Signed Prescriptions Disp Refills traMADol (ULTRAM) 50 mg tablet 28 tablet 0 Sig: Take 1 tablet by mouth every 4 hours as needed for pain for up to 7 days. Pharmacy Information Pharmacy Address Telephone [facility]/pharmacy #[id number] [place] [address] Sahra Guy MD Patient is calling back in asking if orders for xray were put in? Wants to know what kind of pain medication Dr. Guy would prescribe she is not wantiing to get something strong. Please give patient a call back. Cris Boucher LM for patient to call office. Does she need some pain meds? Sahra Guy MD Triaged patient-see below. Ongoing hip pain past month. Discussed notes from 09/16 OV: (M54.42) Acute left-sided low back pain with left-sided sciatica Comment: Ongoing since fall. She is not wanting xrays or PT at this time Plan: Will continue to monitor States she did PT 3 times for this pain and it did not help. She is interested in xray-asking for order. Corrine Lopez RN Answer Assessment - Initial Assessment Questions 1. LOCATION and RADIATION: Where is the pain located? Left hip 2. QUALITY: What does the pain feel like? (e.g., sharp, dull, aching, burning) sharp 3. SEVERITY: How bad is the pain? What does it keep you from doing? (Scale 1-10; or mild, moderate, severe) - MILD (1-3): Doesn't interfere with normal activities. - MODERATE (4-7): Interferes with normal activities (e.g., work or school) or awakens from sleep, limping. - SEVERE (8-10): Excruciating pain, unable to do any normal activities, unable to walk. moderate 4. ONSET: When did the pain start? Does it come and go, or is it there all the time? 1 month 5. WORK OR EXERCISE: Has there been any recent work or exercise that involved this part of the body? 6. CAUSE: What do you think is causing the hip pain? 7. AGGRAVATING FACTORS: What makes the hip pain worse? (e.g., walking, climbing stairs, running) 8. OTHER SYMPTOMS: Do you have any other symptoms? (e.g., back pain, pain shooting down leg, fever, rash) Radiates to toes Protocols used: Hip [id number] Tena is calling Sahra Guy MD today with left hip pain. It is radiating down to her toe; describes anterior pain. She is seeking medical advice. Please call today. Patient has been identified by name and birthdate. Duration of symptoms: N/A Person calling: self Call patient at: at home [phone] (home) [phone] (cell) Was an appointment scheduled: No Closing statement: Symptom Call: Thank you for calling [facility], your call is very important. A nurse will call in approximately 2-4 hours during business hours. If this is an emergency, please contact 911. Tete Boucher documented in this encounter [facility] 09-26-2024 Telephone encounter Note L hip x ray Lumbar x ray ordered. Tramadol Rx sent. The following approved medication requests have been transmitted electronically. Requested Prescriptions Signed Prescriptions Disp Refills traMADol (ULTRAM) 50 mg tablet 28 tablet 0 Sig: Take 1 tablet by mouth every 4 hours as needed for pain for up to 7 days. Pharmacy Information Pharmacy Address Telephone [facility]/pharmacy #[id number] [place] [address] Sahra Guy MD [facility] 09-26-2024 Telephone encounter Note Patient is calling back in asking if orders for xray were put in? Wants to know what kind of pain medication Dr. Guy would prescribe she is not wantiing to get something strong. Please give patient a call back. Cris Boucher [facility] 09-26-2024 Telephone encounter Note LM for patient to call office. [facility] 09-26-2024 Telephone encounter Note Does she need some pain meds? Sahra Guy MD [facility] 09-26-2024 Telephone encounter Note Triaged patient-see below. Ongoing hip pain past month. Discussed notes from 09/16 OV: (M54.42) Acute left-sided low back pain with left-sided sciatica Comment: Ongoing since fall. She is not wanting xrays or PT at this time Plan: Will continue to monitor States she did PT 3 times for this pain and it did not help. She is interested in xray-asking for order. Corrine Lopez RN Answer Assessment - Initial Assessment Questions 1. LOCATION and RADIATION: Where is the pain located? Left hip 2. QUALITY: What does the pain feel like? (e.g., sharp, dull, aching, burning) sharp 3. SEVERITY: How bad is the pain? What does it keep you from doing? (Scale 1-10; or mild, moderate, severe) - MILD (1-3): Doesn't interfere with normal activities. - MODERATE (4-7): Interferes with normal activities (e.g., work or school) or awakens from sleep, limping. - SEVERE (8-10): Excruciating pain, unable to do any normal activities, unable to walk. moderate 4. ONSET: When did the pain start? Does it come and go, or is it there all the time? 1 month 5. WORK OR EXERCISE: Has there been any recent work or exercise that involved this part of the body? 6. CAUSE: What do you think is causing the hip pain? 7. AGGRAVATING FACTORS: What makes the hip pain worse? (e.g., walking, climbing stairs, running) 8. OTHER SYMPTOMS: Do you have any other symptoms? (e.g., back pain, pain shooting down leg, fever, rash) Radiates to toes Protocols used: Hip [id number] [facility] 09-23-2024 Telephone encounter Note Tena is calling Sahra Guy MD today with left hip pain. It is radiating down to her toe; describes anterior pain. She is seeking medical advice. Please call today. Patient has been identified by name and birthdate. Duration of symptoms: N/A Person calling: self Call patient at: at home [phone] (home) [phone] (cell) Was an appointment scheduled: No Closing statement: Symptom Call: Thank you for calling [facility], your call is very important. A nurse will call in approximately 2-4 hours during business hours. If this is an emergency, please contact 911Dagmar Boucher [facility] 09-23-2024 Telephone encounter Note Received 09/23/2024 from [facility] Placed in provider's inbox for review. Route to [place] for faxing. [facility] 09-23-2024 Miscellaneous Notes Received 09/23/2024 from [facility]`. Placed in provider's inbox for review. Route to [place] for faxing. documented in this encounter [facility] 09-16-2024 Note HNO ID: [id number] Author: SAHRA GUY MD Service: ? Author Type: Physician Type: Progress Notes Filed: 09/16/2024 12:46 Note Text: CHIEF COMPLAINT Patient presents with: Follow Up: Blood work sciatic pain left HISTORY OF PRESENT ILLNESS Tena Cannon is a 84 year old female who presents here today for follow up. I last saw this patient on 08/23/2024. Fall Incident - Fell about 1 month ago - Has a motorized wheelchair, pressed the wrong button the wheelchair by accident, wheelchair sit her scooter - Landed on her butt, hurt her left knee - Endorsing left upper leg/hip pain - Admits to low back/tail bone pain - Not sure if it related to recent fall - Has difficulty laying in bed - Pain alleviated when she places a pillow between her legs in bed - Still has to have help getting out bed, has pain when trying to sit up - Has been sleeping in her recliner chair, does not like to call for help Arthritis - Of the hand - Bothersome - Requests refill of valacyclovir, states that this has been beneficial for her in the past Health Maintenance Due for DTaP, Tdap, Td Vaccine (1- Tdap) Due for Advance Directive Discussion Labs reviewed. Past medical history, appointments, medications, allergies reviewed. REVIEW OF SYSTEMS General: Feels well, no weight changes, fevers or chills. HEENT: No sinus congestion, earache, sore throat. Cardiac: No chest pain, palpitations Resp: No cough, wheeze, shortness of breath GI: No reflux symptoms, food intolerance, bowel changes. : No urinary frequency, dysuria. 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 Leukopenia Unspecified sleep apnea cpap PHYSICAL EXAMINATION BP 104/80 Pulse 76 Repeat BP: 112/70 General: Alert, well developed, well nourished, no distress, pleasant and cooperative. Heart: Regular rate and rhythm. Normal S1 and S2. No murmurs, rubs, or gallops. Lungs: Clear to auscultation bilaterally. No respiratory distress. No wheezes, rales, or rhonchi. Abdomen: Soft, non-tender, no distention. Extremities: Feet/ankles without edema, posterior tibial pulses full and symmetrical. Data Reviewed 09/09/2024 Reconciled Outside Lab Data: HEMOGLOBIN A1C <5.7 %HbA1C 4.5 SODIUM 136 - 145 mmol/L 138 POTASSIUM 3.5 - 5.1 mmol/L 4.1 Comment: Plasma potassium values may be up to 0.5 mmol/L lower than serum values. CHLORIDE 98 - 107 mmol/L 105 CARBON DIOXIDE 23 - 31 mmol/L 31 ANION GAP 3 - 13 mmol/L 2 Low UREA NITROGEN 9 - 23 mg/dL 20 Creatinine, External 0.57 - 1.11 mg/dL 0.56 Low GLUCOSE 82 - 115 mg/dL 91 CALCIUM 8.8 - 10.0 mg/dL 9.8 AST (SGOT) <34 U/L 21 ALT <30 U/L 18 ALKALINE PHOSPHATASE 40 - 150 U/L 59 ALBUMIN 3.4 - 4.8 g/dL 3.6 BILIRUBIN, TOTAL <1.2 mg/dL 0.5 TOTAL PROTEIN 6.4 - 8.3 g/dL 6.7 eGFR >60.0 mL/min/1.73m*2 89 TRIGLYCERIDE <150 mg/dL 80 CHOLESTEROL <200 mg/dL 170 HDL CHOLESTEROL >=60 mg/dL 59 Low CHOL/HDL 3 Comment: Ref Range: < 3 Low Risk for CHD 3-6 Mod Risk for CHD > 6 High Risk for CHD VERY LOW DENSITY LIPOPROTEIN, CALCULATED <=30 mg/dL 16 NON-HDL CHOLESTEROL, CALCULATED <130 111 LOW DENSITY LIPOPROTEIN 0 - <100 mg/dL 95 Assessment/Plan (R29.6) Falling episodes (primary encounter diagnosis) (V00.818A) Fall from motorized wheelchair, initial encounter Comment: Fell about 1 month ago from motorized wheelchair. Landed on her butt, minor injury of the left knee which is not bothersome now Plan: Noted for record (M54.42) Acute left-sided low back pain with left-sided sciatica Comment: Ongoing since fall. She is not wanting xrays or PT at this time Plan: Will continue to monitor (G14) Post-polio syndrome Comment: Status quo Plan: Hand pain. She requests Valtrex, which oddly has helped her arthritis pain on previous occasions. Reluctantly agree to provide a 1x refill Requested Prescriptions Signed Prescriptions Disp Refills valACYclovir (VALTREX) 1 gram tablet 21 tablet 0 Sig: Take 1 tablet by mouth three times a day for 7 days. RTO: as needed Scribe Attestation: By signing my name below, Johan Birmingham, attest that this documentation has been prepared under the direction and in the presence of Jaime Guy M.D. Electronically Signed: Jakob Vale. September 16, 2024 11:30 AM Provider Attestation: Sahra Birmingham MD, personally performed the services described in this documentation. All medical record entries made by the scribe were at my direction and in my telephonic presence. I have reviewed the chart and discharge instructions (if applicable), and agree that the record reflects my (more content not included)... [facility] 09-16-2024 History of Present illness Narrative CHIEF COMPLAINT Patient presents with: Follow Up: Blood work sciatic pain left HISTORY OF PRESENT ILLNESS Tena Cannon is a 84 year old female who presents here today for follow up. I last saw this patient on 08/23/2024. Fall Incident - Fell about 1 month ago - Has a motorized wheelchair, pressed the wrong button the wheelchair by accident, wheelchair sit her scooter - Landed on her butt, hurt her left knee - Endorsing left upper leg/hip pain - Admits to low back/tail bone pain - Not sure if it related to recent fall - Has difficulty laying in bed - Pain alleviated when she places a pillow between her legs in bed - Still has to have help getting out bed, has pain when trying to sit up - Has been sleeping in her recliner chair, does not like to call for help Arthritis - Of the hand - Bothersome - Requests refill of valacyclovir, states that this has been beneficial for her in the past Health Maintenance Due for DTaP, Tdap, Td Vaccine (1- Tdap) Due for Advance Directive Discussion Labs reviewed. Past medical history, appointments, medications, allergies reviewed. REVIEW OF SYSTEMS General: Feels well, no weight changes, fevers or chills. HEENT: No sinus congestion, earache, sore throat. Cardiac: No chest pain, palpitations Resp: No cough, wheeze, shortness of breath GI: No reflux symptoms, food intolerance, bowel changes. : No urinary frequency, dysuria. 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 Leukopenia Unspecified sleep apnea cpap PHYSICAL EXAMINATION BP 104/80 Pulse 76 Repeat BP: 112/70 General: Alert, well developed, well nourished, no distress, pleasant and cooperative. Heart: Regular rate and rhythm. Normal S1 and S2. No murmurs, rubs, or gallops. Lungs: Clear to auscultation bilaterally. No respiratory distress. No wheezes, rales, or rhonchi. Abdomen: Soft, non-tender, no distention. Extremities: Feet/ankles without edema, posterior tibial pulses full and symmetrical. Data Reviewed 09/09/2024 Reconciled Outside Lab Data: HEMOGLOBIN A1C <5.7 %HbA1C 4.5 SODIUM 136 - 145 mmol/L 138 POTASSIUM 3.5 - 5.1 mmol/L 4.1 Comment: Plasma potassium values may be up to 0.5 mmol/L lower than serum values. CHLORIDE 98 - 107 mmol/L 105 CARBON DIOXIDE 23 - 31 mmol/L 31 ANION GAP 3 - 13 mmol/L 2 Low UREA NITROGEN 9 - 23 mg/dL 20 Creatinine, External 0.57 - 1.11 mg/dL 0.56 Low GLUCOSE 82 - 115 mg/dL 91 CALCIUM 8.8 - 10.0 mg/dL 9.8 AST (SGOT) <34 U/L 21 ALT <30 U/L 18 ALKALINE PHOSPHATASE 40 - 150 U/L 59 ALBUMIN 3.4 - 4.8 g/dL 3.6 BILIRUBIN, TOTAL <1.2 mg/dL 0.5 TOTAL PROTEIN 6.4 - 8.3 g/dL 6.7 eGFR >60.0 mL/min/1.73m*2 89 TRIGLYCERIDE <150 mg/dL 80 CHOLESTEROL <200 mg/dL 170 HDL CHOLESTEROL >=60 mg/dL 59 Low CHOL/HDL 3 Comment: Ref Range: < 3 Low Risk for CHD 3-6 Mod Risk for CHD > 6 High Risk for CHD VERY LOW DENSITY LIPOPROTEIN, CALCULATED <=30 mg/dL 16 NON-HDL CHOLESTEROL, CALCULATED <130 111 LOW DENSITY LIPOPROTEIN 0 - <100 mg/dL 95 Assessment/Plan (R29.6) Falling episodes (primary encounter diagnosis) (V00.818A) Fall from motorized wheelchair, initial encounter Comment: Fell about 1 month ago from motorized wheelchair. Landed on her butt, minor injury of the left knee which is not bothersome now Plan: Noted for record (M54.42) Acute left-sided low back pain with left-sided sciatica Comment: Ongoing since fall. She is not wanting xrays or PT at this time Plan: Will continue to monitor (G14) Post-polio syndrome Comment: Status quo Plan: Hand pain. She requests Valtrex, which oddly has helped her arthritis pain on previous occasions. Reluctantly agree to provide a 1x refill Requested Prescriptions Signed Prescriptions Disp Refills valACYclovir (VALTREX) 1 gram tablet 21 tablet 0 Sig: Take 1 tablet by mouth three times a day for 7 days. RTO: as needed Scribe Attestation: By signing my name below, Johan Birmingham, attest that this documentation has been prepared under the direction and in the presence of Jaime Guy M.D. Electronically Signed: Jakob Vale. September 16, 2024 11:30 AM Provider Attestation: I, Sahra Guy MD, personally performed the services described in this documentation. All medical record entries made by the scribe were at my direction and in my telephonic presence. I have reviewed the chart and discharge instructions (if applicable), and agree that the record reflects my personal performance and is accurate and complete. Electronically Signed: Sahra Guy MD September 16, 2024 12:44 PM documented in this encounter [facility] 09-09-2024 Telephone encounter Note Patient called back regarding orders needed. Orders were faxed to : [facility], [place] [phone] [facility] 09-09-2024 Miscellaneous Notes Patient called back regarding orders needed. Orders were faxed to : [facility], [place], [facility] [phone] Tena is calling Sahra Guy MD today with concern regarding Orders Patient is there to get Lab work. If you can please FAX lab orders to them. FAX [phone]. Patient has been identified by name and birthdate. Duration of symptoms: N/A Person calling: Daphnie Forte Was an appointment scheduled: No Closing statement: Results or non-symptom based questions: Thank you for calling [facility], your call will be returned within the next business day. Cris Boucher documented in this encounter [facility] 09-09-2024 Telephone encounter Note Tena is calling Sahra Guy MD today with concern regarding Orders Patient is there to get Lab work. If you can please FAX lab orders to them. FAX [phone]. Patient has been identified by name and birthdate. Duration of symptoms: N/A Person calling: Daphnie Forte Was an appointment scheduled: No Closing statement: Results or non-symptom based questions: Thank you for calling [facility], your call will be returned within the next business day. Cris Hernandez Pss [facility] 09-06-2024 Telephone encounter Note Called and scheduled pt f/u. She wanted PCP to have results prior to appt so she is getting lab drawn in [place]. [facility] 09-06-2024 Miscellaneous Notes Called and scheduled pt f/u. She wanted PCP to have results prior to appt so she is getting lab drawn in [place]. We can see her any time and do the repeat lab . Sahra Guy MD Called and informed pt of pcp interpretation and recommendation. Pt would like to schedule a follow up and have a repeat lab draw in the office. Please assist pt with scheduling Patient calling requesting a call back from a nurse. [phone] LM for patient to call office. She had assisted living nurse call office in separate encounter Lipid shows midley elevated LDL bad cholesterol , the hdl cholesterol is quite low. That's a change from previous. Not sure this is a correct value. Don't think we'd do anything different, but could repeat the lab at some point. Blood count OK Sahra Guy MD documented in this encounter [facility] 09-05-2024 Telephone encounter Note We can see her any time and do the repeat lab . Sahra Guy MD [facility] 09-02-2024 Telephone encounter Note Called and informed pt of pcp interpretation and recommendation. Pt would like to schedule a follow up and have a repeat lab draw in the office. Please assist pt with scheduling [facility] 09-02-2024 Telephone encounter Note Patient calling requesting a call back from a nurse. [phone] [facility] 09-02-2024 Telephone encounter Note LM for patient to call office. She had assisted living nurse call office in separate encounter [facility] 09-02-2024 Telephone encounter Note See previous encounter [facility] 09-02-2024 Miscellaneous Notes See previous encounter Tena is a patient of Sahra Guy MD today LOBO Garcia called from the [facility] and stated the patient wants to find out her lab test results. Per Radha, the patient administers her own medications so it is fine to speak with the patient, please call her today. Patient has been identified by name and birthdate. Duration of symptoms: N/A Person calling: self Call patient at: on cell [phone] (home) [phone] (cell) Was an appointment scheduled: No Closing statement: Results or non-symptom based questions: Thank you for calling [facility], your call will be returned within the next business day. Tete Mora Pss documented in this encounter [facility] 09-02-2024 Telephone encounter Note Tena is a patient of Sahra Guy MD today LOBO Garcia called from the [facility] and stated the patient wants to find out her lab test results. Per Radha, the patient administers her own medications so it is fine to speak with the patient, please call her today. Patient has been identified by name and birthdate. Duration of symptoms: N/A Person calling: self Call patient at: on cell [phone] (home) [phone] (cell) Was an appointment scheduled: No Closing statement: Results or non-symptom based questions: Thank you for calling [facility], your call will be returned within the next business day. Tete Mora Pss [facility] 09-01-2024 Telephone encounter Note Lipid shows midley elevated LDL bad cholesterol , the hdl cholesterol is quite low. That's a change from previous. Not sure this is a correct value. Don't think we'd do anything different, but could repeat the lab at some point. Blood count OK Sahra Guy MD [facility] 09-01-2024 Telephone encounter Note Results entered into pt chart. Please advise. [facility] 09-01-2024 Miscellaneous Notes Results entered into pt chart. Please advise. No results in scanned docs, do we have them? Tena is calling Sahra Guy MD today to confirm that her las test results from outside facility were received. She would like to speak with the doctor to discuss the results. Patient has been identified by name and birthdate. Duration of symptoms: N/A Person calling: self Call patient at: at home [phone] (home) [phone] (cell) Was an appointment scheduled: No Closing statement: Results or non-symptom based questions: Thank you for calling [facility], your call will be returned within the next business day. Tete Boucher documented in this encounter [facility] 09-01-2024 Telephone encounter Note Rachel with [facility] is calling Sahra Guy MD today to request this month's Office visit Notes. Faxed to Rachel at fax number [phone] [facility] 09-01-2024 Miscellaneous Notes Rachel with [facility] is calling Sahra Guy MD today to request this month's Office visit Notes. Faxed to Rachel at fax number [phone] documented in this encounter [facility] 09-01-2024 Telephone encounter Note No results in scanned docs, do we have them? [facility] 08-31-2024 Telephone encounter Note Tena is calling Sahra Guy MD today to confirm that her las test results from outside facility were received. She would like to speak with the doctor to discuss the results. Patient has been identified by name and birthdate. Duration of symptoms: N/A Person calling: self Call patient at: at home [phone] (home) [phone] (cell) Was an appointment scheduled: No Closing statement: Results or non-symptom based questions: Thank you for calling [facility], your call will be returned within the next business day. Tete Mora Pss [facility] 08-24-2024 Telephone encounter Note Received orders from [facility]. Placed in provider's inbox for review. Route to [place] fax [facility] 08-24-2024 Miscellaneous Notes Received orders from [facility]. Placed in provider's inbox for review. Route to [place] fax documented in this encounter [facility] 08-23-2024 Instructions Sahra Guy MD - 08/23/2024 10:30 AM EST Screening schedule The following prevention plan is recommended: RSV Vaccine(1 - 1-dose 75+ series) Never done DTaP,Tdap,Td Vaccine(1 - Tdap) due on 03/11/2014 Advance Directive Discussion due on 08/03/2024 WHAT YOU CAN DO TO PREVENT FALLS Many falls can be prevented. By making some changes, you can lower your chances of falling. Four things YOU can do to prevent falls for you* and your caregiver 1. Begin a regular exercise program Exercise is one of the most important ways to lower your chances of falling. It makes you stronger and helps you feel better. Exercises that improve balance and coordination (like Brooks Chi) are the most helpful. Lack of exercise leads to weakness and increases your chances of falling. Ask your doctor or health care provider about the best type of exercise program for you. 2. Have your health care provider review your medicines Have your doctor or pharmacist review all the medicines you take, even zfys-epb-yysgaly medicines. As you get older, the way medicines work in your body can change. Some medicines, or combinations of medicines, can make you sleepy or dizzy and can cause you to fall. 3. Have your vision checked Have your eyes checked by an eye doctor at least once a year. You may be wearing the wrong glasses or have a condition like glaucoma or cataracts that limits your vision. Poor vision can increase your chances of falling. 4. Make your home safer About half of all falls happen at home. To make your home safer: Remove things you can trip over (like papers, books, clothes, and shoes) from stairs and places where you walk. Remove small throw rugs or use double-sided tape to keep the rugs from slipping. Keep items you use often in cabinets you can reach easily without using a step stool. Have grab bars put in next to your toilet and in the tub or shower. Use non-slip mats in the bathtub and on shower floors. Improve the lighting in your home. As you get older, you need brighter lights to see well. Hang light-weight curtains or shades to reduce glare. Have handrails and lights put in on all staircases. Wear shoes both inside and outside the house. Avoid going barefoot or wearing slippers. For more information, contact: Centers for Disease Control and Prevention www.cdc.gov/injury * This information may not apply if you have certain medical conditions. documented in this encounter [facility] 08-23-2024 Note HNO ID: [id number] Author: SAHRA GUY MD Service: ? Author Type: Physician Type: Progress Notes Filed: 08/23/2024 16:55 Note Text: Tena Cannon is a 83 year old female here for a Medicare wellness visit. Back Pain - Recently strained her back, left sided - Gabapentin was beneficial - Symptoms have nearly resolved, still feels a twinge Weakness - Is still having difficulty getting up from the toilet - Has needed assistance from the aides - Was told that there are lift chairs for toilet, is currently looking into it. Current Providers Specialists: I have reviewed specialist-related care of the patient in the medical record. Medical/Family history review Reviewed and updated problem list, medical/surgical/family/social history, medications, and allergies. Opioid use review Opioid Medications (last 90 days) No data to display Depression screening 08/23/24 - 05/30/2021 09/25/2022 09/25/2022 12/10/2023 Depression Screening PHQ-2 Score 0 0 0 2 RIGO-2 Total Score 2 Depression screening tool completed and reviewed. Based on score and interview, patient is not at risk for depression. Screening tool discussed with patient, and I recommended no further intervention at this time. Cognitive screening Mini Cog Score: 3 Cognitive screening reviewed and No further action needed (score 3-5). Functional Observation Was the patient's timed Up AND Go test unsteady or >= 12 seconds? No Advance Care Planning Surrogate decision maker and/or advance care plan documented Measurements BP 156/83 Pulse 60 Ht 142.2 cm (4' 8) SpO2 95% BMI 44.26 kg/m? Repeat BP: 116/70 General: Alert, well developed, well nourished, no distress, pleasant and cooperative. HEENT: No adenopathy or thyromegaly Heart: Regular rate and rhythm. Normal S1 and S2. No murmurs, rubs, or gallops. Lungs: Clear to auscultation bilaterally. No respiratory distress. No wheezes, rales, or rhonchi. Abdomen: Soft, non-tender, no distention Extremities: motorized wheelchair. Feet/ankles without edema, posterior tibial pulses full and symmetrical Skin: intact. Musculoskeletal:leg weakness, mild pain on palpation L SI area. Assessment/Plan Medicare annual wellness visit, subsequent () - Fall avoidance information provided - Personalized prevention plan provided () Medicare annual wellness visit, subsequent (primary encounter diagnosis) Comment: 83 year old generally healthy female here for medicare visit Plan: As below (E66.01) Obesity, Class III, BMI 40-49.9 (morbid obesity) ([facility]) Comment: Stable. 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 oxybutynin ER (DITROPAN XL) 10 mg 24 hr tablet 90 tablet 3 Sig: Take 1 tablet by mouth once daily. esomeprazole (NEXIUM) 40 mg capsule 90 capsule 2 Sig: TAKE 1 CAPSULE DAILY BEFOREBREAKFAST. 1/2 HOUR BEFORE A MEAL Scribe Attestation: By signing my name below, IJohan, attest that this documentation has been prepared under the direction and in the presence of Jaime Guy M.D. Electronically Signed: Jakob Vale. August 23, 2024 10:12 AM Provider Attestation: Sahra Birmingham MD, personally performed the services described in this documentation. All medical record entries made by the scribe were at my direction and in my telephonic presence. I have reviewed the chart and discharge instructions (if applicable), and agree that the record reflects my personal performance and is accurate and complete. Electronically Signed: Sahra Guy MD August 23, 2024 4:52 PM } [facility] 08-23-2024 History of Present illness Narrative Images from the original note were not included. Tena Cannon is a 83 year old female here for a Medicare wellness visit. Back Pain - Recently strained her back, left sided - Gabapentin was beneficial - Symptoms have nearly resolved, still feels a twinge Weakness - Is still having difficulty getting up from the toilet - Has needed assistance from the aides - Was told that there are lift chairs for toilet, is currently looking into it. Current Providers Specialists: I have reviewed specialist-related care of the patient in the medical record. Medical/Family history review Reviewed and updated problem list, medical/surgical/family/social history, medications, and allergies. Opioid use review Opioid Medications (last 90 days) No data to display Depression screening 08/23/24 - 05/30/2021 09/25/2022 09/25/2022 12/10/2023 Depression Screening PHQ-2 Score 0 0 0 2 RIGO-2 Total Score 2 Depression screening tool completed and reviewed. Based on score and interview, patient is not at risk for depression. Screening tool discussed with patient, and I recommended no further intervention at this time. Cognitive screening Mini Cog Score: 3 Cognitive screening reviewed and No further action needed (score 3-5). Functional Observation Was the patient's timed Up & Go test unsteady or >= 12 seconds? No Advance Care Planning Surrogate decision maker and/or advance care plan documented Measurements BP 156/83 Pulse 60 Ht 142.2 cm (4' 8) SpO2 95% BMI 44.26 kg/m Repeat BP: 116/70 General: Alert, well developed, well nourished, no distress, pleasant and cooperative. HEENT: No adenopathy or thyromegaly Heart: Regular rate and rhythm. Normal S1 and S2. No murmurs, rubs, or gallops. Lungs: Clear to auscultation bilaterally. No respiratory distress. No wheezes, rales, or rhonchi. Abdomen: Soft, non-tender, no distention Extremities: motorized wheelchair. Feet/ankles without edema, posterior tibial pulses full and symmetrical Skin: intact. Musculoskeletal:leg weakness, mild pain on palpation L SI area. Assessment/Plan Medicare annual wellness visit, subsequent (Z.) - Fall avoidance information provided - Personalized prevention plan provided (Z.) Medicare annual wellness visit, subsequent (primary encounter diagnosis) Comment: 83 year old generally healthy female here for medicare visit Plan: As below (E66.01) Obesity, Class III, BMI 40-49.9 (morbid obesity) ([facility]) Comment: Stable. 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 oxybutynin ER (DITROPAN XL) 10 mg 24 hr tablet 90 tablet 3 Sig: Take 1 tablet by mouth once daily. esomeprazole (NEXIUM) 40 mg capsule 90 capsule 2 Sig: TAKE 1 CAPSULE DAILY BEFOREBREAKFAST. 1/2 HOUR BEFORE A MEAL Scribe Attestation: By signing my name below, IJohan, attest that this documentation has been prepared under the direction and in the presence of Jaime Guy M.D. Electronically Signed: Jakob Vale. August 23, 2024 10:12 AM Provider Attestation: Sahra Birmingham MD, personally performed the services described in this documentation. All medical record entries made by the scribe were at my direction and in my telephonic presence. I have reviewed the chart and discharge instructions (if applicable), and agree that the record reflects my personal performance and is accurate and complete. Electronically Signed: Sahra Guy MD August 23, 2024 4:52 PM } Health Risk Assessment Do you exercise for about 20 minutes 3 or more days a week? denies regular aerobic exercise. How often do you eat food that is healthy (such as fresh fruits, fish and vegetables) instead of unhealthy food (such as fried foods, sweets and junk food)? most of the time. List of current specialists seen: Optometry Does patient see eye doctor routinely? Yes Do you have an advance directive, such as health care power of chief radiologic technologist or living will? yes Would you like more information? No Depression screen Pt in the past two weeks denies having felt down, depressed, hopeless, or with little interest or pleasure in doing things. Functional Ability/Safety Screen 1. Have you fallen 2 or more times in the past year? Yes Are you afraid of falling? Yes 2. Do you need help with the phone, transportation, shopping, preparing meals, housework, laundry, medications or managing money? Pt lives in assisted living 3. Does your home have rugs in the hallway, lack of grab bars in the bathroom, lack of handrails on the stairs or have poor lighting? No Hearing Evaluation: wears hearing aids Sahra Guy MD Any memory concerns? Yes documented in this encounter [facility] 08-23-2024 Note HNO ID: [id number] Author: SAHRA GUY MD Service: ? Author Type: Physician Type: Progress Notes Filed: 08/23/2024 16:55 Note Text: Health Risk Assessment Do you exercise for about 20 minutes 3 or more days a week? denies regular aerobic exercise. How often do you eat food that is healthy (such as fresh fruits, fish and vegetables) instead of unhealthy food (such as fried foods, sweets and junk food)? most of the time. List of current specialists seen: Optometry Does patient see eye doctor routinely? Yes Do you have an advance directive, such as health care power of chief radiologic technologist or living will? yes Would you like more information? No Depression screen Pt in the past two weeks denies having felt down, depressed, hopeless, or with little interest or pleasure in doing things. Functional Ability/Safety Screen 1. Have you fallen 2 or more times in the past year? Yes Are you afraid of falling? Yes 2. Do you need help with the phone, transportation, shopping, preparing meals, housework, laundry, medications or managing money? Pt lives in assisted living 3. Does your home have rugs in the hallway, lack of grab bars in the bathroom, lack of handrails on the stairs or have poor lighting? No Hearing Evaluation: wears hearing aids Sahra Guy MD Any memory concerns? Yes [facility] 08-22-2024 Telephone encounter Note Noted. [facility] 08-22-2024 Miscellaneous Notes Noted. Tena is calling Sahra Guy MD today is now using [facility] with a new insurance company( using the same pharmacy ) but out of any refills Patient asking for this to be addressed tomorrow for medications to be sent mail order Patient has appointment on 08/23/2024 and asking for PCP to fill all RX's that apply Patient has been identified by name and birthdate. Duration of symptoms: N/A Person calling: self Call patient at: at home [phone] (home) [phone] (cell) Was an appointment scheduled: Yes: Date/Time: 08/23/[address] Guy Closing statement: Results or non-symptom based questions: Thank you for calling [facility], your call will be returned within the next business day. Norma Monroe documented in this encounter [facility] 08-22-2024 Telephone encounter Note Tena is calling Sahra uGy MD today is now using [facility] with a new insurance company( using the same pharmacy ) but out of any refills Patient asking for this to be addressed tomorrow for medications to be sent mail order Patient has appointment on 08/23/2024 and asking for PCP to fill all RX's that apply Patient has been identified by name and birthdate. Duration of symptoms: N/A Person calling: self Call patient at: at home [phone] (home) [phone] (cell) Was an appointment scheduled: Yes: Date/Time: 08/23/[address] Guy Closing statement: Results or non-symptom based questions: Thank you for calling [facility], your call will be returned within the next business day. Norma Monroe [facility] 08-17-2024 Telephone encounter Note Verbal order given for PT and OT. Per home health patient did not know that she had an appointment for the . Call placed to patient and voicemail left stating time and date of appointment. Message left that visit is needed for insurance to authorize therapy [facility] 08-17-2024 Miscellaneous Notes Verbal order given for PT and OT. Per home health patient did not know that she had an appointment for the . Call placed to patient and voicemail left stating time and date of appointment. Message left that visit is needed for insurance to authorize therapy Yes, please give verbal order on behalf of Dr. Jess Leal APRN.APPLIED STATISTICIAN Rachel godfrey [facility] calling back and states that since patient is scheduled with Dr. Guy on 08/23 they will be able to use his name as a certifying provider. [facility] asking for a verbal order from Dr. Guy. Please return call to [phone] Orders for physical therapy are in correlation to recent visit with Leonid Leal where pt was seen for pulled muscle/sciatic pain. Spoke with Rachel Ramos states the provider who had face to face with pt for the acute reason, has to be the provider who sends the order and agrees to follow the plan of care pertaining to physical therapy. However, Rachel believes because providers name on the orders does not match the name in the PECOS system; Your new name must be changed in the PECOS Administrative Interface to be reflected in Internet-based PECOS. Please contact your Medicare-fee for service contractor to change your name. Copied and pasted from [email or web address] Please advise. Please clarify what therapy orders are for, I saw her acute back pain, did not address her chronic issues but can send most recent office visit note. If that won't work, needs to see Dr. Guy for follow-up to address chronic issues. Also clarify about provider's name change. Leonid Leal APRN.ANTONY Rachel with [facility] is calling regarding Home PT and OT. Regulations are that it be from the provider who had a face to face. Stated Leonid Leal would need to certify the care since she had a face to face with her. She also stated it is coming up as Leonid Roach in the system (PICOS would have to be updated). With the different last name a red flag will happen. Please call Rachel at [phone] documented in this encounter [facility] 08-17-2024 Telephone encounter Note Yes, please give verbal order on behalf of Dr. Jess Leal APRN.APPLIED STATISTICIAN [facility] 08-17-2024 Telephone encounter Note Rachel from [facility] calling back and states that since patient is scheduled with Dr. Guy on 08/23 they will be able to use his name as a certifying provider. [facility] asking for a verbal order from Dr. Guy. Please return call to [phone] [facility] 08-15-2024 Telephone encounter Note Orders for physical therapy are in correlation to recent visit with Leonid Leal where pt was seen for pulled muscle/sciatic pain. Spoke with Rachel Ramos states the provider who had face to face with pt for the acute reason, has to be the provider who sends the order and agrees to follow the plan of care pertaining to physical therapy. However, Rachel believes because providers name on the orders does not match the name in the PECOS system; Your new name must be changed in the PECOS Administrative Interface to be reflected in Internet-based PECOS. Please contact your Medicare-fee for service contractor to change your name. Copied and pasted from [email or web address] Please advise. [facility] 08-15-2024 Telephone encounter Note Please clarify what therapy orders are for, I saw her acute back pain, did not address her chronic issues but can send most recent office visit note. If that won't work, needs to see Dr. Guy for follow-up to address chronic issues. Also clarify about provider's name change. Leonid Leal APRN.CNP [facility] 08-15-2024 Telephone encounter Note Rachel with [facility] is calling regarding Home PT and OT. Regulations are that it be from the provider who had a face to face. Stated Leonid Leal would need to certify the care since she had a face to face with her. She also stated it is coming up as Leonid Loco Marley in the system (PICOS would have to be updated). With the different last name a red flag will happen. Please call Rachel at [phone] [facility] 08-11-2024 Note HNO ID: [id number] Author: LEONID LEAL APRN.CNP Service: ? Author Type: Nurse Practitioner Type: Progress Notes Filed: 08/11/2024 15:02 Note Text: This note was created using Prestigosriter. Subjective Tena Cannon is a 83 year old female. Patient here with daughter for back pain that started around last weekend. Pain is located in left lumbar area and radiates down left side of thigh. Feels it when she first sits up in the morning, not typically bothering her during the day, but then again at night when transferring into bed is having a lot of pain and needing help getting into bed. History of low back pain when she fell and broke L4 and had sciatica on right side, about 10 years ago. She took gabapentin at that time, which resolved her symptoms and she'd like to try again. The sharp pain resolves after she gets into bed and settles down, takes Tylenol, also tried Salon paws which helped. No numbness/tingling/burning in the leg. Two weeks ago, she fell when transferring from scooter to wheelchair and ended up sitting down on her scooter in a small space, left knee got twisted and took her a while to get it released. Wears medical alert, called EMS for assistance. The history is provided by the patient and a relative. Review of Systems Musculoskeletal: Positive for back pain and gait problem. 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 Leukopenia Unspecified sleep apnea cpap PAST SURGICAL HISTORY Procedure Laterality Date APPENDECTOMY tubal ligation BLEPHAROPLASTY UPPER EYELID W/EXCESSIVE SKIN 2022 CARPAL TUNNEL RIGHT WRIST 07/2003 COLONOSCOPY 03/30/2013 normal exam EGD 03/30/2013 hiatal hernia, Anatolyary-Marshall Grade III reflux esophagitis, gastric polyps EGD 09/07/2018 SSBE noted on exam, not confirmed on biopsy, gastritis, neg H Pylori, fundic gland polyp IR KYPHOPLASTY LUMBAR 2006 L-3 LAPAROSCOPY SURG CHOLECYSTECTOMY 06/1999 Cholecystectomy, lap PAST SURGICAL HISTORY OF 2007 CMCJleft wrist PAST SURGICAL HISTORY OF child tendon transplants right ankle and both knees PAST SURGICAL HISTORY OF teens left great toe X 2 PAST SURGICAL HISTORY OF 1986 left rotator cuff repair and bone spur PAST SURGICAL HISTORY OF bone spur right shoulder RMVL SEC MEMBRANOUS CTRC CORNEO-SCLL SCTJ Cataract removal left with lens implant ALLERGIES Keflex [Cephalexin], Vioxx [Rofecoxib], Novocain [Procaine Hcl], Sumner-3 Fish Oil [Sumner-3 Fatty Acids-Vitamin E], Advil [Ibuprofen], and Asa [Salicylates] MEDICATIONS esomeprazole (NEXIUM) 40 mg capsule TAKE 1 CAPSULE DAILY BEFOREBREAKFAST. 1/2 HOUR BEFORE A MEAL oxybutynin ER (DITROPAN XL) 10 mg 24 hr tablet Take 1 tablet by mouth once daily. metFORMIN (GLUCOPHAGE) 500 mg tablet Take 1 tablet by mouth daily with breakfast. metroNIDAZOLE (METROGEL) 0.75 % Topical Gel APPLY 1 APPLICATION TO AFFECTED AREA ONCE DAILY TOFACE brimonidine (ALPHAGAN P) 0.1 % drop loratadine (CLARITIN ORAL) Take by mouth. nystatin-triamcinolone (MYCOLOG) ointment Apply sparingly to perineum twice daily for irritation/infection. atropine 1 % ophthalmic solution sulfacetamide (BLEPH-10) 10 % ophthalmic solution Use 1 Drop in both eyes four times daily. INSIDE LOWER EYELID(S) 1-4 TIMES DAILY AND AT BEDTIME miconazole (MONISTAT 7) 2 % vaginal cream Use 1 Applicator vaginally daily at bedtime. calcium carbonate (CALCIUM 500 ORAL) Take by mouth every other day. BIOTIN ORAL Take 1 capsule by mouth once daily. vitamin B complex (B COMPLEX VITAMINS ORAL) Take 1 tablet by mouth once daily. ergocalciferol, vitamin D2, (VITAMIN D2 ORAL) Take 1 tablet by mouth once daily. ferrous sulfate 325 mg (65 mg iron) tablet Take 325 mg by mouth every other day. therapeutic multivitamin w/ iron (THERAGRAN-M) 9 mg iron-400 mcg tablet Take 1 tablet by mouth once daily. prednisoLONE acetate (PRED FORTE, ECONOPRED PLUS) 1 % ophthalmic suspension Use 1 Drop in the left eye twice daily as needed. timolol maleate (TIMOPTIC) 0.5 % ophthalmic solution Use 1 Drop in the left eye every morning. polyvinyl alcohol (LIQUID TEARS OPHTHALMIC) Use in eyes. rutin/hesp/bioflav/C/[id number] (BIOFLEX ORAL) Take 1 capsule by mouth twice daily. CPAP BipaP @ 14/9 cm of water with humidification, removable water dispenser (for cleaning) . Mask (small/ per patient preference) , filters, tubing, humidifier and lifetime supplies. (G47.33, Z99.89) Obstructive sleep apnea on CPAP cyclopentolate (CYCLOGYL) 1 % ophthalmic solution Use 1 Drop in the left eye two times a day. gabapentin (NEURONTIN) 100 mg capsule Take 1 capsule by mouth daily at bedtime for 30 days. FAMILY HISTORY Problem Relation Age of Onset He (more content not included)... [facility] 08-11-2024 History of Present illness Narrative Images from the original note were not included. This note was created using Prestigosriter. Subjective Tena Cannon is a 83 year old female. Patient here with daughter for back pain that started around last weekend. Pain is located in left lumbar area and radiates down left side of thigh. Feels it when she first sits up in the morning, not typically bothering her during the day, but then again at night when transferring into bed is having a lot of pain and needing help getting into bed. History of low back pain when she fell and broke L4 and had sciatica on right side, about 10 years ago. She took gabapentin at that time, which resolved her symptoms and she'd like to try again. The sharp pain resolves after she gets into bed and settles down, takes Tylenol, also tried Salon paws which helped. No numbness/tingling/burning in the leg. Two weeks ago, she fell when transferring from scooter to wheelchair and ended up sitting down on her scooter in a small space, left knee got twisted and took her a while to get it released. Wears medical alert, called EMS for assistance. The history is provided by the patient and a relative. Review of Systems Musculoskeletal: Positive for back pain and gait problem. 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 Leukopenia Unspecified sleep apnea cpap PAST SURGICAL HISTORY Procedure Laterality Date APPENDECTOMY tubal ligation BLEPHAROPLASTY UPPER EYELID W/EXCESSIVE SKIN 2022 CARPAL TUNNEL RIGHT WRIST 07/2003 COLONOSCOPY 03/30/2013 normal exam EGD 03/30/2013 hiatal hernia, Oj-Marshall Grade III reflux esophagitis, gastric polyps EGD 09/07/2018 SSBE noted on exam, not confirmed on biopsy, gastritis, neg H Pylori, fundic gland polyp IR KYPHOPLASTY LUMBAR 2006 L-3 LAPAROSCOPY SURG CHOLECYSTECTOMY 06/1999 Cholecystectomy, lap PAST SURGICAL HISTORY OF 2007 CMCJleft wrist PAST SURGICAL HISTORY OF child tendon transplants right ankle and both knees PAST SURGICAL HISTORY OF teens left great toe X 2 PAST SURGICAL HISTORY OF 1986 left rotator cuff repair and bone spur PAST SURGICAL HISTORY OF bone spur right shoulder RMVL SEC MEMBRANOUS CTRC CORNEO-SCLL SCTJ Cataract removal left with lens implant ALLERGIES Keflex [Cephalexin], Vioxx [Rofecoxib], Novocain [Procaine Hcl], Sumner-3 Fish Oil [Sumner-3 Fatty Acids-Vitamin E], Advil [Ibuprofen], and Asa [Salicylates] MEDICATIONS esomeprazole (NEXIUM) 40 mg capsule TAKE 1 CAPSULE DAILY BEFOREBREAKFAST. 1/2 HOUR BEFORE A MEAL oxybutynin ER (DITROPAN XL) 10 mg 24 hr tablet Take 1 tablet by mouth once daily. metFORMIN (GLUCOPHAGE) 500 mg tablet Take 1 tablet by mouth daily with breakfast. metroNIDAZOLE (METROGEL) 0.75 % Topical Gel APPLY 1 APPLICATION TO AFFECTED AREA ONCE DAILY TOFACE brimonidine (ALPHAGAN P) 0.1 % drop loratadine (CLARITIN ORAL) Take by mouth. nystatin-triamcinolone (MYCOLOG) ointment Apply sparingly to perineum twice daily for irritation/infection. atropine 1 % ophthalmic solution sulfacetamide (BLEPH-10) 10 % ophthalmic solution Use 1 Drop in both eyes four times daily. INSIDE LOWER EYELID(S) 1-4 TIMES DAILY AND AT BEDTIME miconazole (MONISTAT 7) 2 % vaginal cream Use 1 Applicator vaginally daily at bedtime. calcium carbonate (CALCIUM 500 ORAL) Take by mouth every other day. BIOTIN ORAL Take 1 capsule by mouth once daily. vitamin B complex (B COMPLEX VITAMINS ORAL) Take 1 tablet by mouth once daily. ergocalciferol, vitamin D2, (VITAMIN D2 ORAL) Take 1 tablet by mouth once daily. ferrous sulfate 325 mg (65 mg iron) tablet Take 325 mg by mouth every other day. therapeutic multivitamin w/ iron (THERAGRAN-M) 9 mg iron-400 mcg tablet Take 1 tablet by mouth once daily. prednisoLONE acetate (PRED FORTE, ECONOPRED PLUS) 1 % ophthalmic suspension Use 1 Drop in the left eye twice daily as needed. timolol maleate (TIMOPTIC) 0.5 % ophthalmic solution Use 1 Drop in the left eye every morning. polyvinyl alcohol (LIQUID TEARS OPHTHALMIC) Use in eyes. rutin/hesp/bioflav/C/ (BIOFLEX ORAL) Take 1 capsule by mouth twice daily. CPAP BipaP @ 14/9 cm of water with humidification, removable water dispenser (for cleaning) . Mask (small/ per patient preference) , filters, tubing, humidifier and lifetime supplies. (G47.33, Z99.89) Obstructive sleep apnea on CPAP cyclopentolate (CYCLOGYL) 1 % ophthalmic solution Use 1 Drop in the left eye two times a day. gabapentin (NEURONTIN) 100 mg capsule Take 1 capsule by mouth daily at bedtime for 30 days. FAMILY HISTORY Problem Relation Age of Onset Heart Mother Hypertension Mother Headache Mother Diabetes Father Diabetes Paternal Grandmother Stroke Brother Stroke Paternal Grandfather Heart Other Heart Paternal Uncle Heart Maternal Uncle Hypertension Sister Hypertension Brother Diabetes Son Seizures Other niece other (dementia) Maternal Aunt other (brain hemorrhage) Other cousin Social History Tobacco Use Smoking status: Never Passive exposure: Yes Smokeless tobacco: Never Tobacco comments: second hand smoke exposure. Vaping Use Vaping status: Never Used Substance Use Topics Alcohol use: Yes Comment: Rare Drug use: Never Objective BP 146/77 Pulse 66 SpO2 98% Physical Exam Vitals and nursing note reviewed. Constitutional: Appearance: She is well-developed. She is not ill-appearing. Pulmonary: Effort: Pulmonary effort is normal. Musculoskeletal: Lumbar back: Tenderness present. No bony tenderness. Back: Comments: Tenderness in this area of low back, no spinal tenderness Skin: General: Skin is warm and dry. Neurological: Mental Status: She is alert and oriented to person, place, and time. Gait: Gait abnormal (in scooter, no ambulation). Assessment and Plan 1. Acute left-sided low back pain with left-sided sciatica Trial gabapentin, start with 100 mg tonight, may increase to 200 mg tomorrow night, then 300 mg the night thereafter depending on symptom relief and stop at 300 mg QHS and report back in 1 week. - gabapentin (NEURONTIN) 100 mg capsule; Take 1 capsule by mouth daily at bedtime for 30 days. Dispense: 30 capsule; Refill: 0 Leonid Leal APRN.APPLIED STATISTICIAN documented in this encounter [facility] 08-11-2024 Telephone encounter Note Called and spoke with pt States pain located in left mid back Present 1 week, has not improved Not sure what caused it but notices it is much worse when she lays down to sleep Sleeps on side and feels like the muscle is pulling when she lays down. Also radiates down leg when laying down Taking Tylenol- not sure if it helps Has not had pain like this before Denies any other symptoms Advised OV for eval Reviewed home care in the meantime- heat, gentle stretches, pillow in between knees, pain medication PRN Pt will speak with transportation and call back to schedule appt. No further questions at this time Reason for Disposition [1] MODERATE back pain (e.g., interferes with normal activities) AND [2] present > 3 days Answer Assessment - Initial Assessment Questions 1. ONSET: 1 week 2. LOCATION: Mid left back 3. SEVERITY: Moderate 4. PATTERN: Constant, worse when laying down 5. RADIATION: Yes 6. CAUSE: Pulled muscle 7. BACK OVERUSE: Doesn't think so 8. MEDICINES: Tylenol 9. NEUROLOGIC SYMPTOMS: Denies 10. OTHER SYMPTOMS: Denies 11. : N/a Protocols used: Back [id number] [facility] 08-11-2024 Miscellaneous Notes Called and spoke with pt States pain located in left mid back Present 1 week, has not improved Not sure what caused it but notices it is much worse when she lays down to sleep Sleeps on side and feels like the muscle is pulling when she lays down. Also radiates down leg when laying down Taking Tylenol- not sure if it helps Has not had pain like this before Denies any other symptoms Advised OV for eval Reviewed home care in the meantime- heat, gentle stretches, pillow in between knees, pain medication PRN Pt will speak with transportation and call back to schedule appt. No further questions at this time Reason for Disposition [1] MODERATE back pain (e.g., interferes with normal activities) AND [2] present > 3 days Answer Assessment - Initial Assessment Questions 1. ONSET: 1 week 2. LOCATION: Mid left back 3. SEVERITY: Moderate 4. PATTERN: Constant, worse when laying down 5. RADIATION: Yes 6. CAUSE: Pulled muscle 7. BACK OVERUSE: Doesn't think so 8. MEDICINES: Tylenol 9. NEUROLOGIC SYMPTOMS: Denies 10. OTHER SYMPTOMS: Denies 11. : N/a Protocols used: Back [id number] Tena is calling Sahra Guy MD today with concern regarding Muscle Aches/Pulled muscle Left side above the curve of her but states that she thinks she pulled a muscle and thought that this would get better but it is not. Patient has been identified by name and birthdate. Duration of symptoms: 1 weeks Person calling: self Call patient at: at home [phone] (home) [phone] (cell) Was an appointment scheduled: No Closing statement: Symptom Call: Thank you for calling [facility], your call is very important. A nurse will call in approximately 2-4 hours during business hours. If this is an emergency, please contact 911. Cris Boucher documented in this encounter [facility] 08-11-2024 Telephone encounter Note Tena is calling Sahra Guy MD today with concern regarding Muscle Aches/Pulled muscle Left side above the curve of her but states that she thinks she pulled a muscle and thought that this would get better but it is not. Patient has been identified by name and birthdate. Duration of symptoms: 1 weeks Person calling: self Call patient at: at home [phone] (home) [phone] (cell) Was an appointment scheduled: No Closing statement: Symptom Call: Thank you for calling [facility], your call is very important. A nurse will call in approximately 2-4 hours during business hours. If this is an emergency, please contact 911. Cris Boucher [facility] 07-05-2024 Telephone encounter Note Patient has been identified by name and date of : Yes, Patient phones for refill(s): Requested Prescriptions Pending Prescriptions Disp Refills esomeprazole (NEXIUM) 40 mg capsule 90 capsule 2 Sig: TAKE 1 CAPSULE DAILY BEFOREBREAKFAST. 1/2 HOUR BEFORE A MEAL Date of last office visit in primary care: 12/10/2023 Date of next office visit in primary care: 08/23/2024 [facility] Mail order Please advise. Thank you. Sugey Stover. [facility] 07-05-2024 Miscellaneous Notes Patient has been identified by name and date of : Yes, Patient phones for refill(s): Requested Prescriptions Pending Prescriptions Disp Refills esomeprazole (NEXIUM) 40 mg capsule 90 capsule 2 Sig: TAKE 1 CAPSULE DAILY BEFOREBREAKFAST. 1/2 HOUR BEFORE A MEAL Date of last office visit in primary care: 12/10/2023 Date of next office visit in primary care: 08/23/2024 [facility] Mail order Please advise. Thank you. Sugey Stover. documented in this encounter [facility] 06-23-2024 Telephone encounter Note Received DNR order from [facility]. Placed in provider's inbox for review. Route to [place] fax [facility] 06-23-2024 Miscellaneous Notes Received DNR order from [employer]. Placed in provider's inbox for review. Route to [place] fax documented in this encounter [facility] 06-20-2024 Telephone encounter Note The following approved medication requests have been transmitted electronically. Requested Prescriptions Signed Prescriptions Disp Refills oxybutynin ER (DITROPAN XL) 10 mg 24 hr tablet 90 tablet 1 Sig: Take 1 tablet by mouth once daily. Authorizing Provider: SAHRA GUY MD [facility] 06-20-2024 Miscellaneous Notes The following approved medication requests have been transmitted electronically. Requested Prescriptions Signed Prescriptions Disp Refills oxybutynin ER (DITROPAN XL) 10 mg 24 hr tablet 90 tablet 1 Sig: Take 1 tablet by mouth once daily. Authorizing Provider: SAHRA GUY MD Prescription Refill Information The patient has been identified by name and date of : Yes Caregiver verified no other encounters exist for this prescription request: Yes Caregiver confirmed with patient/requestor that no other refills are due, in the near future, with this provider at this time: Yes The last office visit in the department: 12/10/23 Does the patient have a future office visit with this provider/department: Yes Requested Prescriptions Pending Prescriptions Disp Refills oxybutynin ER (DITROPAN XL) 10 mg 24 hr tablet 90 tablet 1 Sig: Take 1 tablet by mouth once daily. Adonay Marquez LPN June 20, 2024 5:23 PM documented in this encounter [facility] 06-20-2024 Telephone encounter Note Prescription Refill Information The patient has been identified by name and date of : Yes Caregiver verified no other encounters exist for this prescription request: Yes Caregiver confirmed with patient/requestor that no other refills are due, in the near future, with this provider at this time: Yes The last office visit in the department: 12/10/23 Does the patient have a future office visit with this provider/department: Yes Requested Prescriptions Pending Prescriptions Disp Refills oxybutynin ER (DITROPAN XL) 10 mg 24 hr tablet 90 tablet 1 Sig: Take 1 tablet by mouth once daily. Adonay Marquez LPN June 20, 2024 5:23 PM [facility] 06-03-2024 Telephone encounter Note Weights have been declined. Patient in motorized wheelchair. Voicemail left for patient. [facility] 06-03-2024 Miscellaneous Notes Weights have been declined. Patient in motorized wheelchair. Voicemail left for patient. 197 lbs., Sahra Guy MD Tena is calling Sahra Guy MD today with concern regarding Question/Weight Patient is calling in and wanting to get her weight from recent visits; states that she needs to give this to the Assisted Living that she is at. Patient has been identified by name and birthdate. Duration of symptoms: N/A Person calling: self Call patient at: at home [phone] (home) [phone] (cell) Was an appointment scheduled: No Closing statement: Results or non-symptom based questions: Thank you for calling [facility], your call will be returned within the next business day. Cris Boucher documented in this encounter [facility] 06-03-2024 Telephone encounter Note Placed in mail for patient. [facility] 06-03-2024 Miscellaneous Notes Placed in mail for patient. Tena is calling Sahra Guy MD today to request patient medication list be mailed to her please . The address has been verified Patient has been identified by name and birthdate. Person calling: self Call patient at: at home [phone] (home) [phone] (cell) Was an appointment scheduled: No Closing statement: Results or non-symptom based questions: Thank you for calling [facility], your call will be returned within the next business day. Norma Monroe documented in this encounter [facility] 06-02-2024 Telephone encounter Note 197 lbs., Sahra Guy MD [facility] 06-02-2024 Telephone encounter Note Tena is calling Sahra Guy MD today to request patient medication list be mailed to her please . The address has been verified Patient has been identified by name and birthdate. Person calling: self Call patient at: at home [phone] (home) [phone] (cell) Was an appointment scheduled: No Closing statement: Results or non-symptom based questions: Thank you for calling [facility], your call will be returned within the next business day. Norma Monroe T [facility] 06-02-2024 Telephone encounter Note Tena is calling Sahra Guy MD today with concern regarding Question/Weight Patient is calling in and wanting to get her weight from recent visits; states that she needs to give this to the Assisted Living that she is at. Patient has been identified by name and birthdate. Duration of symptoms: N/A Person calling: self Call patient at: at home [phone] (home) [phone] (cell) Was an appointment scheduled: No Closing statement: Results or non-symptom based questions: Thank you for calling [facility], your call will be returned within the next business day. Cris Hernandez Pss [facility] 05-18-2024 Telephone encounter Note RSV vaccine is not covered in office with pt insurance. Please assist pt in scheduling office visit with provider for a check up. [facility] 05-18-2024 Miscellaneous Notes RSV vaccine is not covered in office with pt insurance. Please assist pt in scheduling office visit with provider for a check up. Patient said she scheduled an appt with Dr. Guy on 05/24/24 to get RSV vaccine. Wanted to make sure it was ordered. I asked if that is all she needs; not sure if she needs to see the doctor for that or if she can just schedule with the nurse. She hasn't seen the doctor since December. Please advise her at [phone] documented in this encounter [facility] 05-18-2024 Telephone encounter Note Patient said she scheduled an appt with Dr. Guy on 05/24/24 to get RSV vaccine. Wanted to make sure it was ordered. I asked if that is all she needs; not sure if she needs to see the doctor for that or if she can just schedule with the nurse. She hasn't seen the doctor since December. Please advise her at [phone] [facility] 04-06-2024 Telephone encounter Note Prescription Refill Information The patient has been identified by name and date of : Yes Caregiver verified no other encounters exist for this prescription request: Yes Caregiver confirmed with patient/requestor that no other refills are due, in the near future, with this provider at this time: Yes The last office visit in the department: 12/10/23 Does the patient have a future office visit with this provider/department: No Requested Prescriptions Pending Prescriptions Disp Refills esomeprazole (NEXIUM) 40 mg capsule [Pharmacy Med Name: ESOMEPRA MAG CAP 40MG DR] 90 capsule 2 Sig: TAKE 1 CAPSULE DAILY BEFOREBREAKFAST. 1/2 HOUR BEFORE A MEAL Jennifer Giron LPN April 06, 2024 11:26 AM [facility] 04-06-2024 Miscellaneous Notes Prescription Refill Information The patient has been identified by name and date of : Yes Caregiver verified no other encounters exist for this prescription request: Yes Caregiver confirmed with patient/requestor that no other refills are due, in the near future, with this provider at this time: Yes The last office visit in the department: 12/10/23 Does the patient have a future office visit with this provider/department: No Requested Prescriptions Pending Prescriptions Disp Refills esomeprazole (NEXIUM) 40 mg capsule [Pharmacy Med Name: ESOMEPRA MAG CAP 40MG DR] 90 capsule 2 Sig: TAKE 1 CAPSULE DAILY BEFOREBREAKFAST. 1/2 HOUR BEFORE A MEAL Jennifer Giron LPN April 06, 2024 11:26 AM documented in this encounter [facility] 03-09-2024 Telephone encounter Note Labs placed in mail. Voicemail left for patient. [facility] 03-09-2024 Miscellaneous Notes Labs placed in mail. Voicemail left for patient. Her labs are all within normal limits. Leonid Roach APRN.APPLIED STATISTICIAN Labs are resulted from [facility]. Can you review Vit D, Lipid, CMP, CBC, A1C? Results have been mailed to the patient at her request: Tena Cannon [id number] [address] [address] Called patient. March 03 was the draw date. When the results are reviewed she would like them mailed. Patient is reminded external labs take longer to review due to faxing. Patient voiced understanding. Please notify patient when faxed results are received and reviewed. Tena is calling Sahra Guy MD today to request a call to advise labs drawn at [facility] results and when provider reviews those labs patient is asking for them to be mailed to her, patient address has been verified. Patient has been identified by name and birthdate. Duration of symptoms: N/A Person calling: self Call patient at: at home [phone] (home) [phone] (cell) Was an appointment scheduled: No Closing statement: Results or non-symptom based questions: Thank you for calling [facility], your call will be returned within the next business day. Norma Monroe documented in this encounter [facility] 03-09-2024 Telephone encounter Note Her labs are all within normal limits. Leonid Roach APRN.ANTONY [facility] 03-09-2024 Telephone encounter Note Labs are resulted from [facility]. Can you review Vit D, Lipid, CMP, CBC, A1C? Results have been mailed to the patient at her request: Tena Terry [id number] [address] [place] [address] Dr Ayers [address] [place] [id number] [facility] 03-07-2024 Telephone encounter Note Called patient. March 03 was the draw date. When the results are reviewed she would like them mailed. Patient is reminded external labs take longer to review due to faxing. Patient voiced understanding. Please notify patient when faxed results are received and reviewed. [facility] 03-07-2024 Telephone encounter Note Tena is calling Sahra Guy MD today to request a call to advise labs drawn at [facility] results and when provider reviews those labs patient is asking for them to be mailed to her, patient address has been verified. Patient has been identified by name and birthdate. Duration of symptoms: N/A Person calling: self Call patient at: at home [phone] (home) [phone] (cell) Was an appointment scheduled: No Closing statement: Results or non-symptom based questions: Thank you for calling [facility], your call will be returned within the next business day. Norma Monroe [facility] 02-26-2024 Telephone encounter Note Patient returned phone call; she was notified that the labs were faxed, as she requested. [facility] 02-26-2024 Miscellaneous Notes Patient returned phone call; she was notified that the labs were faxed, as she requested. Labs faxed. Voicemail left for patient. Tena is calling Sahra Guy MD today patient is calling to request her lab orders are sent to: [facility], fax to: [phone]. Please notify patient once this is completed. Patient has been identified by name and birthdate. Duration of symptoms: N/A Person calling: self Call patient at: at home [phone] (home) [phone] (cell) Was an appointment scheduled: No Closing statement: Results or non-symptom based questions: Thank you for calling [facility], your call will be returned within the next business day. Tete Mora Pss documented in this encounter [facility] 02-26-2024 Telephone encounter Note Labs faxed. Voicemail left for patient. [facility] 02-26-2024 Telephone encounter Note Tena is calling Sahra Guy MD today patient is calling to request her lab orders are sent to: [facility], fax to: [phone]. Please notify patient once this is completed. Patient has been identified by name and birthdate. Duration of symptoms: N/A Person calling: self Call patient at: at home [phone] (home) [phone] (cell) Was an appointment scheduled: No Closing statement: Results or non-symptom based questions: Thank you for calling [facility], your call will be returned within the next business day. Tete Boucher [facility] 02-25-2024 Telephone encounter Note Called and informed pt. [facility] 02-25-2024 Miscellaneous Notes Called and informed pt. Patient is due for fasting labs, orders placed Leonid Roach APRN.ANTONY Pharmacy verified in Epic Patient has been identified by name and date of : Yes Patient aware RX will be sent to pharmacy. No need to notify patient. Pharmacy phones for refill(s): Requested Prescriptions Pending Prescriptions Disp Refills metFORMIN (GLUCOPHAGE) 500 mg tablet 90 tablet 3 Sig: Take 1 tablet by mouth daily with breakfast. Date of last office visit : 12/10/23 Date of next office visit : n/a Diabetes: Hemoglobin A1C (%) Date Value 09/25/2022 5.0 Please advise. Adonay Marquez LPN documented in this encounter [facility] 02-23-2024 Telephone encounter Note Patient is due for fasting labs, orders placed Leonid Roach APRN.APPLIED STATISTICIAN [facility] 02-23-2024 Telephone encounter Note Pharmacy verified in Epic Patient has been identified by name and date of : Yes Patient aware RX will be sent to pharmacy. No need to notify patient. Pharmacy phones for refill(s): Requested Prescriptions Pending Prescriptions Disp Refills metFORMIN (GLUCOPHAGE) 500 mg tablet 90 tablet 3 Sig: Take 1 tablet by mouth daily with breakfast. Date of last office visit : 12/10/23 Date of next office visit : n/a Diabetes: Hemoglobin A1C (%) Date Value 09/25/2022 5.0 Please advise. Adonay Marquez LPN [facility] 01-25-2024 Telephone encounter Note Prescription Refill Information The patient has been identified by name and date of : Yes Caregiver verified no other encounters exist for this prescription request: Yes Caregiver confirmed with patient/requestor that no other refills are due, in the near future, with this provider at this time: Yes The last office visit in the department: 12/10/23 Does the patient have a future office visit with this provider/department: No Requested Prescriptions Pending Prescriptions Disp Refills metroNIDAZOLE (METROGEL) 0.75 % Topical Gel 135 g 3 Sig: APPLY 1 APPLICATION TO AFFECTED AREA ONCE DAILY TOFACE Kimberly Jerardo Boucher January 25, 2024 1:40 PM [facility] 01-25-2024 Miscellaneous Notes Prescription Refill Information The patient has been identified by name and date of : Yes Caregiver verified no other encounters exist for this prescription request: Yes Caregiver confirmed with patient/requestor that no other refills are due, in the near future, with this provider at this time: Yes The last office visit in the department: 12/10/23 Does the patient have a future office visit with this provider/department: No Requested Prescriptions Pending Prescriptions Disp Refills metroNIDAZOLE (METROGEL) 0.75 % Topical Gel 135 g 3 Sig: APPLY 1 APPLICATION TO AFFECTED AREA ONCE DAILY JYOTI Harris Jerardo Boucher January 25, 2024 1:40 PM documented in this encounter [facility] 01-13-2024 Telephone encounter Note The following approved medication requests have been transmitted electronically. Requested Prescriptions Signed Prescriptions Disp Refills oxybutynin ER (DITROPAN XL) 10 mg 24 hr tablet 90 tablet 1 Sig: Take 1 tablet by mouth once daily. Authorizing Provider: SAHRA GUY MD [facility] 01-13-2024 Miscellaneous Notes The following approved medication requests have been transmitted electronically. Requested Prescriptions Signed Prescriptions Disp Refills oxybutynin ER (DITROPAN XL) 10 mg 24 hr tablet 90 tablet 1 Sig: Take 1 tablet by mouth once daily. Authorizing Provider: SAHRA GUY MD Prescription Refill Information The patient has been identified by name and date of : Yes Caregiver verified no other encounters exist for this prescription request: Yes Caregiver confirmed with patient/requestor that no other refills are due, in the near future, with this provider at this time: Yes The last office visit in the department: 12/10/23 Does the patient have a future office visit with this provider/department: No Requested Prescriptions Pending Prescriptions Disp Refills oxybutynin ER (DITROPAN XL) 10 mg 24 hr tablet 90 tablet 1 Sig: Take 1 tablet by mouth once daily. Adonay Marquez LPN January 12, 2024 4:35 PM documented in this encounter [facility] 01-12-2024 Telephone encounter Note Prescription Refill Information The patient has been identified by name and date of : Yes Caregiver verified no other encounters exist for this prescription request: Yes Caregiver confirmed with patient/requestor that no other refills are due, in the near future, with this provider at this time: Yes The last office visit in the department: 12/10/23 Does the patient have a future office visit with this provider/department: No Requested Prescriptions Pending Prescriptions Disp Refills oxybutynin ER (DITROPAN XL) 10 mg 24 hr tablet 90 tablet 1 Sig: Take 1 tablet by mouth once daily. Adonay Marquez LPN January 12, 2024 4:35 PM [facility] 12-10-2023 Instructions Sahra Guy MD - 12/10/2023 9:56 AM EDT Try Zyrtec 10 mg daily for allergies , also consider Flonase nasal spray 1 spray each nostril daily documented in this encounter [facility] 12-10-2023 History of Present illness Narrative CHIEF COMPLAINT Patient presents with: Forms HISTORY OF PRESENT ILLNESS Tena Cannon is a 83 year old female who presents here today for paperwork. I last saw this patient on 03/10/2023. Post polio syndrome Chronic weakness, lower extremity weakness, general fatigability. - Currently living in an independent living facility which was bought out and is converting into an assisted living facility. She has concern that her post polio weakness will continue to worsen, so she prefers staying in the assisted living facility rather than move. 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 Leukopenia Unspecified sleep apnea cpap PAST SURGICAL HISTORY Procedure Laterality Date APPENDECTOMY tubal ligation CARPAL TUNNEL RIGHT WRIST 07/05 COLONOSCOPY 03/30/2013 normal exam EGD 03/30/2013 hiatal hernia, César Grade III reflux esophagitis, gastric polyps EGD 09/07/2018 SSBE noted on exam, not confirmed on biopsy, gastritis, neg H Pylori, fundic gland polyp IR KYPHOPLASTY LUMBAR 2006 L-3 LAPAROSCOPY SURG CHOLECYSTECTOMY Cholecystectomy, lap PAST SURGICAL HISTORY OF 2007 CMCJleft wrist PAST SURGICAL HISTORY OF child tendon transplants right ankle and both knees PAST SURGICAL HISTORY OF teens left great toe X 2 PAST SURGICAL HISTORY OF 1986 left rotator cuff repair and bone spur PAST SURGICAL HISTORY OF bone spur right shoulder RMVL SEC MEMBRANOUS CTRC CORNEO-SCLL SCTJ Cataract removal left with lens implant ALLERGIES Keflex [Cephalexin], Novacaine [Other], Vioxx [Rofecoxib], Sumner-3 Fish Oil [Sumner-3 Fatty Acids-Vitamin E], Advil [Ibuprofen], and Asa [Salicylates] MEDICATIONS brimonidine (ALPHAGAN P) 0.1 % drop loratadine (CLARITIN ORAL) Take by mouth. esomeprazole (NEXIUM) 40 mg capsule TAKE 1 CAPSULE DAILY BEFOREBREAKFAST. 1/2 HOUR BEFORE A MEAL oxybutynin ER (DITROPAN XL) 10 mg 24 hr tablet take 1 tablet once daily nystatin-triamcinolone (MYCOLOG) ointment Apply sparingly to perineum twice daily for irritation/infection. metFORMIN (GLUCOPHAGE) 500 mg tablet Take 1 tablet by mouth daily with breakfast. atropine 1 % ophthalmic solution metroNIDAZOLE (METROGEL) 0.75 % Topical Gel APPLY 1 APPLICATION TO AFFECTED AREA ONCE DAILY TOFACE calcium carbonate (CALCIUM 500 ORAL) Take by mouth every other day. BIOTIN ORAL Take 1 capsule by mouth once daily. vitamin B complex (B COMPLEX VITAMINS ORAL) Take 1 tablet by mouth once daily. ergocalciferol, vitamin D2, (VITAMIN D2 ORAL) Take 1 tablet by mouth once daily. ferrous sulfate 325 mg (65 mg iron) tablet Take 325 mg by mouth every other day. therapeutic multivitamin w/ iron (THERAGRAN-M) 9 mg iron-400 mcg tablet Take 1 tablet by mouth once daily. prednisoLONE acetate (PRED FORTE, ECONOPRED PLUS) 1 % ophthalmic suspension Use 1 Drop in the left eye twice daily as needed. timolol maleate (TIMOPTIC) 0.5 % ophthalmic solution Use 1 Drop in the left eye every morning. polyvinyl alcohol (LIQUID TEARS OPHTHALMIC) Use in eyes. rutin/hesp/bioflav/C/[id number] (BIOFLEX ORAL) Take 1 capsule by mouth twice daily. CPAP BipaP @ 14/9 cm of water with humidification, removable water dispenser (for cleaning) . Mask (small/ per patient preference) , filters, tubing, humidifier and lifetime supplies. (G47.33, Z99.89) Obstructive sleep apnea on CPAP sulfacetamide (BLEPH-10) 10 % ophthalmic solution Use 1 Drop in both eyes four times daily. INSIDE LOWER EYELID(S) 1-4 TIMES DAILY AND AT BEDTIME (Patient not taking: Reported on 03/10/2023) miconazole (MONISTAT 7) 2 % vaginal cream Use 1 Applicator vaginally daily at bedtime. (Patient not taking: Reported on 10/29/2021) cyclopentolate (CYCLOGYL) 1 % ophthalmic solution Use 1 Drop in the left eye twice daily. (Patient not taking: Reported on 03/10/2023) FAMILY HISTORY Problem Relation Age of Onset Heart Mother Hypertension Mother Headache Mother Diabetes Father Diabetes Paternal Grandmother Stroke Brother Stroke Paternal Grandfather Heart Other Heart Paternal Uncle Heart Maternal Uncle Hypertension Sister Hypertension Brother Diabetes Son Seizures Other niece other (dementia) Maternal Aunt other (brain hemorrhage) Other cousin Social History Tobacco Use Smoking status: Never Passive exposure: Yes Smokeless tobacco: Never Tobacco comments: second hand smoke exposure. Vaping Use Vaping Use: Never used Substance Use Topics Alcohol use: Yes Comment: Rare Drug use: Never Health Maintenance Due for RSV Vaccine (1-1 dose 60+ series) Due for DTaP, Tdap, Td Vaccine (1- Tdap) Due for Advance Directive Discussion Due for Covid-19 Vaccine ( season) Labs reviewed. Past medical history, appointments, medications, allergies reviewed. REVIEW OF SYSTEMS General: Feels well, no weight changes, fevers or chills. HEENT: No sinus congestion, earache, sore throat. Cardiac: No chest pain, palpitations Resp: No cough, wheeze, shortness of breath GI: No reflux symptoms, food intolerance, bowel changes. : No urinary frequency, dysuria. 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 Leukopenia Unspecified sleep apnea cpap PHYSICAL EXAMINATION BP 156/81 Pulse 68 Ht 142.2 cm (4' 8) SpO2 98% BMI 44.26 kg/m Repeat BP: 126/78 General: Alert, well developed, well nourished, no distress, pleasant and cooperative. Morbidly obese. Heart: Regular rate and rhythm. Normal S1 and S2. No murmurs, rubs, or gallops. Lungs: Clear to auscultation bilaterally. No respiratory distress. No wheezes, rales, or rhonchi. Abdomen: Soft, non-tender, no distention. Extremities: Feet/ankles without edema, posterior tibial pulses full and symmetrical. Data Reviewed Assessment/Plan (B91) Late effects of acute poliomyelitis (primary encounter diagnosis) Comment: Generalized weakness, uses wheelchair/scooter Plan: Will continue to monitor (G47.33) Obstructive sleep apnea on CPAP Comment: Stable on CPAP Plan: Continue to utilize CPAP (K21.9) Gastroesophageal reflux disease, unspecified whether esophagitis present Comment: Well managed on Nexium Plan: Continue current regimen (G47.33) Obstructive sleep apnea on CPAP Comment: stable/ effective treatment Plan: maintain. (K21.9) Gastroesophageal reflux disease, unspecified whether esophagitis present Comment: adequate control on medication Plan: (M54.2, G89.29) Neck pain, chronic Comment: stable Plan: no additional orders. (N32.81) OAB (overactive bladder) Comment: good control if she takes med Plan: continue (L71.9) Rosacea Comment: controlled with med Plan: maintain (E66.01, Z68.41) Class 3 severe obesity with body mass index (BMI) of 40.0 to 44.9 in adult, unspecified obesity type, unspecified whether serious comorbidity present (HCC) Comment: Plan: (H40.9) Glaucoma, unspecified glaucoma type, unspecified laterality Comment: seeing ophthalmology Plan: (G25.81) Restless legs syndrome (RLS) Comment: status quo Plan: no orders. Requested Prescriptions No prescriptions requested or ordered in this encounter RTO: 6 months Scribe Attestation: By signing my name below, IJohan, attest that this documentation has been prepared under the direction and in the presence of Jaime Guy M.D. Electronically Signed: Jakob Vale. December 10, 2023 9:21 AM Provider Attestation: ISahra MD, personally performed the services described in this documentation. All medical record entries made by the scribe were at my direction and in my telephonic presence. I have reviewed the chart and discharge instructions (if applicable), and agree that the record reflects my personal performance and is accurate and complete. Electronically Signed: Sahra Guy MD December 10, 2023 1:35 PM documented in this encounter [facility] 11-26-2023 Telephone encounter Note Schedule appt. Haven't seen her since March. Sahra Guy MD [facility] 11-26-2023 Miscellaneous Notes Schedule appt. Haven't seen her since March. Sahra Guy MD FYI- Patient called and wanted Dr. Guy to know that she is aware of the paperwork being sent to him from [place], and she agrees and is fine with going into their Assisted Living. She wants to stay there. Received 11/25/2023 from [facility]. Placed in provider's inbox for review. Route to [place] for faxing. documented in this encounter [facility] 11-25-2023 Telephone encounter Note FYI- Patient called and wanted Dr. Guy to know that she is aware of the paperwork being sent to him from [place], and she agrees and is fine with going into their Assisted Living. She wants to stay there. [facility] 11-25-2023 Telephone encounter Note Received 11/25/2023 from [facility]. Placed in provider's inbox for review. Route to [place] for faxing. [facility] 07-13-2023 Miscellaneous Notes Last appointment: 03/10/23 Next appointment: none Pharmacy verified in [facility]. Refill(s) requested: Requested Prescriptions Pending Prescriptions Disp Refills oxybutynin ER (DITROPAN XL) 10 mg 24 hr tablet [Pharmacy Med Name: OXYBUTYNIN TAB 10MG ER] 90 tablet 1 Sig: take 1 tablet once daily Order(s) pended. Please advise. Jennifer Giron LPN, BRITTNEY documented in this encounter [facility] 05-08-2023 Miscellaneous Notes Called to triage request. Not Rx'd since 2020. Patient last seen 03/10/23. Patient states she is not having an issue that needs triaged at this time, wants to have it on hand because her tube from 2020 is running low. She uses it occasionally for perineum itching. Patient has been identified by name and date of : Yes Requested Prescriptions Pending Prescriptions Disp Refills nystatin-triamcinolone (MYCOLOG) ointment 30 g 1 Sig: Apply sparingly to perineum twice daily for irritation/infection. RX INSTRUCTIONS: Patient aware RX will be sent to pharmacy. No need to notify patient. Norma Monroe documented in this encounter [facility] 04-23-2023 History of Present illness Narrative Patient history gathered and found that patient is currently receiving home care. No further evaluation completed this date. Patient provided information regarding adaptive equipment that may be helpful with ADL's. documented in this encounter [facility] 04-09-2023 History of Present illness Narrative Episode Visit Count: 1 Start of Care Date: 04/09/23 Onset Date: 04/03/13 Plan of Care Certification Date: 04/09/23 Next Certification Due Date: 04/09/23 Patient Identified by Name and Date of : Yes [facility] SPEECH THERAPY CLINICAL SWALLOW EVALUATION PLAN OF CARE: Impression: Functional oropharyngeal phases of swallowing: without identified risk for aspiration Goals for Episode of Care: created on 04/09/2023 through 04/09/2023 SWALLOWING GOALS Demonstrate knowledge and use of compensatory swallowing strategies in order to eliminate signs/symptoms of possible aspiration with a Regular Diet and Thin Liquids IDDSI Level 0 within 100% of trials.100% goal achieved this date. Patient demonstrates use of strategies this date. All goals to target the patient's overall ability to safely consume the highest appropriate diet level RECOMMENDATION: Diet Recommendations: Regular Consistency, Thin Liquids IDDSI Level 0 (Medications whole with water) Swallowing Precautions Recommendations: Anti-Reflux precautions, Feed / Eat at a slow rate, Limit Distractions, Maintain an upright position 20-30 minutes following all oral intake, Self-monitoring, Sit upright 90 degrees for all PO, Small Bite/Sip LEAD REFINERY SUPERVISOR Recommendations: Diet, Swallowing Precautions, Discontinue Speech Therapy Results and Recommendations Discussed With: Patient, Family (estefanía) Planned Interventions, Frequency, and Duration: Current Frequency: Discontinue Therapy Services SUGGESTED TREATMENT OBJECTIVES: Education provided 1x this date. Patient demonstrates good understanding of results, recommendations, goals and plan of care. Patient and Family agreed with plan. SUBJECTIVE: Tena Cannon is a 82 year old female seen today for clinical swallowing assessment. Mrs. Cannon was referred for a clinical swallow evaluation. She was accompanied by her daughter. Liquids cause Mrs. Cannon to cough. She denies difficulty with solids or pills.She takes regular solids and thin liquids. She lives in an independent living facility. Patient Goals: Assess swallowing Home Environment Prior Functional Level: Within Functional Limits (but states meals are provided at her facility) Relevant medical history/ comorbidities: Unplanned weight loss: Denies Recent pulmonary complications: Denies Complaints of heartburn: Yes Prescription medication and TUMS Complaints of food items getting stuck: Denies OBJECTIVE MEASURES WITH LEVEL OF FUNCTION: Swallow Position Of Patient During Assessment: Upright In Chair Consistencies Presented: Thin Liquids IDDSI Level 0, Pureed IDDSI Level 4, Soft and Bite-Sized IDDSI Level 6, Solid Response to Consistencies Presented: Tolerated all consistencies without any signs of aspiration. Good mastication and clearing. Compensatory Strategies Utilized During Assessment: Feed / Eat at a slow rate, Limit Distractions, Maintain an upright position 20-30 minutes following all oral intake, Sit upright 90 degrees for all PO, Small Bite/Sip Clinical Swallow Mely Swallow Protocol: Pass Oral Pharyngeal Swallow Assessment: Within Functional Limits Suspected Esophageal Deficits: History of GERD Eating Assessment Tool (EAT - 10) To what extent are the following scenarios problematic for you? (0 = No problem; 1 = Mild Problem; 2 = Mild to Moderate Problem; 3 = Moderate Problem; 4 = Severe problem) 1. My swallowing problem has caused me to lose weight. = 0 2. My swallowing problem interferes with my ability to go out for meals. = 0 3. Swallowing liquids takes extra effort. = 2 4. Swallowing solids takes extra effort. = 0 5. Swallowing pills takes extra effort. = 0 6. Swallowing is painful. = 0 7. The pleasure of eating is affected by my swallowing. = 0 8. When I swallow, food sticks in my throat. = 0 9. I cough when I eat. = 2 10. Swallowing is stressful. = 0 Total Score: 4 If your score is greater than 3, you may have swallowing problems. Reference: Dina PC, Silvia DA, Clive CJ, Raven LONNIE, Lisandra GN, Ayush J, and Mars KELLY. Validity and reliability of the Eating Assessment Tool (EAT-10). Katiuska Otol Rhinol Laryngol 117: 919-924, 2008. Reflux Symptom Index Within the last month, how did the following problems affect you? (0-5 rating scale with 0 = No problem and 5 = Severe) 1. Hoarseness or a problem with your voice. 0 2. Clearing your throat. 3 3. Excess throat mucous or postnasal drip. 1 4. Difficulty swallowing food, liquids or pills. 2 5. Coughing after you ate or after lying down. 2 6. Breathing difficulties or choking episodes. 2 7. Troublesome or annoying cough. 2 8. Sensations or something sticking in your throat. 0 9. Heart burn, chest pain, indigestion, or stomach acid coming up. 3 Total:15 Normative data suggests that a RSI of greater than or equal to 13 is clinically significant. Therefore a RSI > 13 may be indicative of significant reflux disease. Education Learning Preferences: Explanation, Printed Materials Barriers: None Learning/Educational Needs: Compensatory Strategies, Disease Process, Family Education/Training, Precautions, Swallowing Skills, Discharge Plan Education Provided: Yes, see treatment interventions for education provided Education Provided To: Patient, Family Education Mode/Type: Explanation/Discussion, Literature/Printed Materials Response to Education/Teach Back: States/Identifies TREATMENT: Evaluation: Swallow Eval Func (63877) Evaluation: Swallow Eval Func (54632) Swallow / Dysphagia (69012): Skilled Intervention: Provided education related to a typical swallowing mechanism in a compare and contrast manner compared to this patient's current skill set. , Educated and advised patient / caregiver on texture and liquid consistency recommendations., Instructed patient / caregiver on recommended compensatory strategies to maximize safety with oral intake while maintaining nutrition, hydration and medication stability. , Provided written and verbal education on anti reflux precautions and swallowing strategies. Billing: Clinical Swallow Evaluation (80977) and Dysphagia Treatment (36935) Total time / Length of visit: 50 minutes Session Start Time : 1345 Session Stop Time : 1435 Nevaeh Hernandez CCC-LEAD REFINERY SUPERVISOR documented in this encounter [facility] 04-09-2023 Miscellaneous Notes Images from the original note were not included. Attempted to call patient to relay message below: Ken Trent MD Lemin, Sarah, RN [place], Do you mind giving Ms. Cannon (patient I saw for post-polio syndrome) a call to let her know that I put in an order for physical therapy in order to evaluate her for different equipment needs? She will have to come into the physical therapy location but should bring pictures of her home so they can get a feel for what she might need. Please also let her know that her labs resulted and there is no clear evidence of muscle disease. Thanks! -Ken Received no answer, generic VM left on non self ID VM, call back number given. Sara Vasquez RN, BSN documented in this encounter [facility] 04-03-2023 History of Present illness Narrative [facility] New Patient Visit Note Consultation requested by Dr. Sahra Guy MD for an opinion regarding post-polio syndrome. My final recommendations will be communicated back to the requesting physician by way of shared Medical record or letter to requesting physician via US mail. HPI: Ms. 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 She has a medical history of obesity, ALVERTO, overactive bladder. Had polio when she was 6 years old, affected both arms and both legs. Could ambulate after she recovered, could never run and jump. Had tendon surgeries when she was when 11-12 yo, after that was able to go up and down the stairs. Has always had to use her arms to help her get out of the seated position. Does not feel like she had much residual deficits in her arms. Thinks she was has an overall slow decline since she was in her 50s. Has been using a scooter outside the house since 1993, using walker within the house. Recently feels like she has been more difficulty getting up out of the seated position recently. Legs feel weaker overall and her arms are getting more incoordinated at therapy. Most of the time uses a scooter. Is not on her feet much, just to transfer and that takes a lot out of her. Does not have much balance. Has a motorized wheelchair that she uses in her room. Lives in an independent residence. Has been having some difficulty with swallowing, food and saliva can go down the wrong way. Food can be too tough for her to chew. No changes to her voice. No respiratory difficulty, uses CPAP at night. She denies any numbness/tingling other than her left big toe with her new shoes. Drinks a lot of milk and magnesium, otherwise would get cramps. No muscle twitching. No diplopia but does have ptosis; having blepharoplasty done soon. Has rotator cuff tear in her right shoulder, had on the left shoulder as well and had surgery Diagnostic Studies: Serum labs: 2022- A1c 5.0 2021- TSH wnl Physical Exam BP 137/90 Pulse 69 Ht 139.7 cm (4' 7) BMI 45.88 kg/m GENERAL Well nourished, well hydrated, no acute distress. ENT Mouth: Good dentition. Throat: Oropharynx clear. No lymphadenopathy. CARDIOVASCULAR Regular rate and rhythm, no thrills or palpable murmurs, S1, S2, no murmur, no rubs or gallops. Carotid arteries: No carotid bruits. RESPIRATORY Clear to auscultation bilaterally, no wheezes, rhonci or rales ABDOMEN Soft, non-tender, non-distended, bowel sounds present, no rebound or guarding EXTREMITIES No rashes or lesions No peripheral edema, cyanosis, or clubbing MENTAL STATUS EXAM Orientation: Alert and oriented to person, place and time. Memory: Cooperative, follows commands well. Recent and remote memory normal. Attention, concentration: Attention span and concentration are normal. Language: Speech is clear and language is normal. Fund of knowledge: Aware of current events, vocabulary appropriate for patient age. CRANIAL NERVES CN 2 (Optic): Visual bahena intact to confrontation, funduscopic examination without optic disk pallor or edema, retinal vessels are normal. CN 3,4,6 (EOM): Pupils equal and reactive to light and near full eye movement without nystagmus. Normal visual pursuits CN 5 (Trigeminal): Facial sensation is normal, no weakness of masticatory muscles. CN 7 (Facial): Frontalis, orbicularis oculi, buccinator, orbicularis kyaw strength intact. Symmetric smile CN 8 (Auditory): Auditory acuity grossly normal. CN 9,10 (Glossophar): The uvula is midline, the palate elevates symmetrically. CN 11 (spinal access): Normal sternocleidomastoid and trapezius strength. CN 12 (Hypoglossal): The tongue is midline. No atrophy or fasciculations. Tongue movements are normal MOTOR Strength/Power (MRC grade- out of 5): Neck Flexion 5 Neck Extension 5 Upper extremity power, when graded out of 5, revealed: Right Left shoulder abduction 4+ 4- shoulder internal rotation 4+ 4+ shoulder external rotation 4- 4- elbow extension 5 5 elbow flexion 5 5 wrist extension 5 5 finger extension 4 4 deep finger flexion (D2-3) 5 5- thumb flexion with FPL 4+ 5- thumb abduction with APB 4+ 4+ finger abduction 4 4+ Lower extremity strength, when reported the same way, showed: Right Left hip flexion 0 1 knee flexion 3 3 knee extension --- --- Knee flexion contractures ankle dorsiflexion 4+ 4+ Mild plantarflexion contracture ankle plantar flexion 5- 5- Muscle Tone: Tone and muscle bulk are normal in the upper and lower extremities. There are no fasciculations. REFLEXES Triceps: (R): 2+ (L): 2+ Biceps: (R): 2+ (L): 2+ Brachioradialis: (R): 2+ (L): 2+ Patellar: (R): 0 (L): 0 Achilles: (R): 0 (L): 0 Gould: (R): absent (L): absent Pectoralis: (R): absent (L): absent Babinski: (R): absent (L): absent Jaw jerk: Absent COORDINATION Intact [id number], [id number], and rapid alternating movements. No tremor. SENSATION Light touch: intact Proprioception: intact Vibration: Reduced to ankle in the LLE Pinprick: intact Negative Romberg test. GAIT Routine and tandem gait are normal. Able to rise from seated position without the use of hands Assessment: Ms. Cannon is a 82 year old woman with a history of polio infection at the age of 6 and previous diagnosis here at [facility] postpolio syndrome a few decades prior presenting for evaluation of progressive weakness over the past 30 years with increasing functional limitations. Her neurologic examination is notable for scattered upper and lower extremity weakness with prominent proximal lower extremity weakness and contractures at the knee and ankle. Overall agree that her presentation is most consistent with continued progression of postpolio syndrome. We discussed the pathophysiology and expected course of this disease. We also talked about the possibility of another disorder such as a myopathy or motor and/or sensory neuropathy; given confounding exam findings from her polio it is difficult to determine this based on her examination alone and EMG would be needed. Patient was reluctant to have an EMG done at this time and we instead elected to order a CK level to help rule out a significant inflammatory myopathy that is treatable. Main concern is safety within the house and we discussed physical therapy evaluation to make sure she has the proper equipment in place for safety. Plan: - Serum workup: CK - Other diagnostic workup: Defer EMG at this time - Referral: PT eval for equipment assessment (will find out whether PT evaluation can occur in the home) - Counseling: fall precautions - Return in about 6 months (around 10/02/2023). I spent a total of 60 minutes on the date of the service which included preparing to see the patient, [id number] patient care, completing clinical documentation, performing a medically appropriate examination, counseling and educating the patient/family/caregiver, and ordering medications, tests, or procedures. Ken Trent MD [facility] ([facility]) [facility], [facility] documented in this encounter [facility] 03-23-2023 Miscellaneous Notes Received OT referral request from [facility]/ [employer]. Placed in provider's inbox for review. Route to [place] fax [phone] documented in this encounter [facility] 03-11-2023 Miscellaneous Notes The following approved medication requests have been transmitted electronically. Requested Prescriptions Signed Prescriptions Disp Refills metFORMIN (GLUCOPHAGE) 500 mg tablet 90 tablet 3 Sig: Take 1 tablet by mouth daily with breakfast. Authorizing Provider: SAHRA GUY MD Pharmacy verified in [facility] Patient has been identified by name and date of : Yes Patient aware RX will be sent to pharmacy. No need to notify patient. Pharmacy phones for refill(s): Requested Prescriptions Pending Prescriptions Disp Refills metFORMIN (GLUCOPHAGE) 500 mg tablet 90 tablet 3 Sig: Take 1 tablet by mouth daily with breakfast. Date of last office visit : 03/10/2023 Date of next office visit : Visit date not found Last 2 Encounter Wt Readings: Date: Wt: 03/10/2023 0 kg () 12/23/2022 0 kg () Diabetes: Hemoglobin A1C (%) Date Value 09/25/2022 5.0 Please advise. Malika Sheikh LPN documented in this encounter [facility] 03-10-2023 History of Present illness Narrative CHIEF COMPLAINT Patient presents with: 6 Month Exam HISTORY OF PRESENT ILLNESS Tena Cannon is a 82 year old female who presents here today for follow up evaluation of multiple issues. I last saw this patient on 09/25/2022. Weight Management & Weakness Patient is frustrated and would like to lose weight Reports she does not eat many potatoes, rice, or dessert She has not been exercising. It is too difficult due to her general weakness Tried aerobics once, but it made her too exhausted If she spreads her fingers and toes she is worn out Also gets exhausted if she has to use her arms Her weight is impairing her ability to lift herself out of bed Thyroid was checked last year, which was normal. BG was normal per recent labs She is wondering if there is a medication she can take Elbow Pain Reports that the Valtrex improved her elbow pain She occasionally has flare-ups still OAB Managed on ditropan 10 mg She recently had to decrease this dose from 20 mg due to dry mouth ALVERTO Uses her CPAP every night She gets nervous if she doesn't use it Her varicose veins have improved Her cellulitis has calmed down. Not sure why it improved Health Maintenance Due for COVID booster Labs reviewed. Past medical history, appointments, medications, allergies reviewed. REVIEW OF SYSTEMS Pertinent positives/ negatives: General: Feels well, no fever, no chills, +obesity, +weakness HEENT: No sinus congestion, earache, sore throat. Cardiac: No chest pain, palpitations Resp: No cough, wheeze, shortness of breath GI: No reflux symptoms, food intolerance, bowel changes. : No urinary frequency, dysuria. MS: No pain or joint complaints. 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 Leukopenia Unspecified sleep apnea cpap PHYSICAL EXAMINATION BP 146/67 Pulse 70 Ht 142.2 cm (4' 7.98) SpO2 96% BMI 44.28 kg/m Repeat BP: 126/66 General: Alert, well developed, well nourished, no distress, pleasant and cooperative. Obese. Heart: Regular rate and rhythm. Normal S1 and S2. No murmurs, rubs, or gallops. Lungs: Clear to auscultation bilaterally. No respiratory distress. No wheezes, rales, or rhonchi. Abdomen: Soft, non-tender, no distention. Extremities: Feet/ankles without edema, posterior tibial pulses full and symmetrical. Data Reviewed Latest Reference Range & Units 09/25/22 15:13 Sodium 136 - 144 mmol/L 142 Potassium 3.7 - 5.1 mmol/L 4.2 Chloride 97 - 105 mmol/L 105 CO2 22 - 30 mmol/L 26 BUN 7 - 21 mg/dL 18 Creatinine 0.58 - 0.96 mg/dL 0.39 (L) Glucose 74 - 99 mg/dL 94 Protein, Total 6.3 - 8.0 g/dL 6.7 Calcium 8.5 - 10.2 mg/dL 10.0 Albumin 3.9 - 4.9 g/dL 4.0 Bilirubin, Total 0.2 - 1.3 mg/dL 0.3 Alkaline Phosphatase 34 - 123 U/L 67 ALT 7 - 38 U/L 25 AST 13 - 35 U/L 29 Anion Gap 9 - 18 mmol/L 11 Uric Acid 2.5 - 6.6 mg/dL 4.5 eGFR >=60 mL/min/1.73m 98 Cholesterol, Total <200 mg/dL 173 Triglyceride <150 mg/dL 85 Fasting Time hrs 12 HDL Cholesterol >39 mg/dL 62 LDL Cholesterol <100 mg/dL 94 VLDL Cholesterol <30 mg/dL 17 TC:HDL Ratio <5.10 2.79 LDL:HDL Ratio <2.54 1.52 Non HDL Cholesterol <130 mg/dL 111 Hemoglobin A1C 4.3 - 5.6 % 5.0 Estimated Average Glucose mg/dL 97 (L): Data is abnormally low Assessment/Plan (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, 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 Comment: increasing weakness Plan: CONSULT TO PHYSICAL THERAPY, CONSULT TO NEUROMUSCULAR MEDIC (E66.01) Obesity, Class III, 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) Comment: difficulty exercising due to weakness Plan: metFORMIN (GLUCOPHAGE) 500 mg tablet (I83.229, I83.219, L97.919, L97.929) 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 RTO: 6 months Scribe Attestation: By signing my name below, Julianna Birminghamison, attest that this documentation has been prepared under the direction and in the presence of Jaime Guy M.D. Electronically Signed: Jakob Schafer. March 09, 2023 11:18 PM Provider Attestation: Kristi, Sahra Guy MD, personally performed the services described in this documentation. All medical record entries made by the scribe were at my direction and in my presence. I have reviewed the chart and discharge instructions (if applicable), and agree that the record reflects my personal performance and is accurate and complete. Electronically Signed: Sahra Guy MD March 10, 2023 1:37 PM documented in this encounter [facility] 12-09-2022 Miscellaneous Notes Received 12/09/2022 from [facility]. Placed in provider's inbox for review. Route to [place] for faxing Patient has no medical contradictions to using hearing aid(s) documented in this encounter [facility] 09-30-2022 Miscellaneous Notes Requested Prescriptions Signed Prescriptions Disp Refills valACYclovir (VALTREX) 1 gram 21 tablet 0 Sig: Take 1 tablet by mouth three times daily for 7 days. Authorizing Provider: LEONID ROACH Pharmacy Information Pharmacy Address Telephone [facility]/pharmacy #[id number] [place] [id number] [facility] Patient was prescribed valACYclovir (VALTREX) 1 gram. Medication was sent to wrong pharmacy. Please send to [facility] in [place]. documented in this encounter [facility] 09-26-2022 Miscellaneous Notes Patient notified and voiced understanding Images from the original note were not included. Theresa Zarate APRN.[facility] Triage Nurse [place]; Steven Vargas [facility] Please inform patient that her lab results are normal or within the acceptable range. Please ask that she follow recommendations as stated at office visit. Theresa Zarate APRN.APPLIED STATISTICIAN documented in this encounter [facility] 09-26-2022 Miscellaneous Notes Message to patient, results mailed to her per request. Address checked. Images from the original note were not included. Theresa Zarate APRN.[facility] Triage Nurse [place]; Steven Kendrick Mob [facility] Please inform patient that her lab results are normal or within the acceptable range. Please ask that she follow recommendations as stated at office visit. Theresa Zarate APRN.APPLIED STATISTICIAN Called patient at [phone]. Left message on voicemail for patient to return call for message from provider. documented in this encounter [facility] 09-17-2022 Miscellaneous Notes Spoke to patient, states the great toes is red on the top and the side. Patient states she noticed it after wearing a pain of shoes she has worn before. Patient wearing her tennis shoes now, they are harder to get on but seem like they are fitting better. Patient denies any open areas on the toe, does not appear to be infected. Denies fever. Patient unable to get an earlier appt. To be seen, no transportation. If patient can get a ride sooner than her scheduled appt., she will. To call back with any new concerns, agreed. Patient is mostly in an electric scooter or w/c, can stand to change into a another chair, that is when it becomes painful when standing on her rt foot. Reason for Disposition Properly fitting shoes, questions about Answer Assessment - Initial Assessment Questions 1. ONSET: When did the pain start? A few days ago 2. LOCATION: Where is the pain located? (e.g., around nail, entire toe, at foot joint) Rt great toe 3. PAIN: How bad is the pain? (Scale 1-10; or mild, moderate, severe) - MILD (1-3): doesn't interfere with normal activities - MODERATE (4-7): interferes with normal activities (e.g., work or school) or awakens from sleep, limping - SEVERE (8-10): excruciating pain, unable to do any normal activities, unable to walk When standing is 5-6/10 4. APPEARANCE: What does the toe look like? (e.g., redness, swelling, bruising, pallor) The toe is red on top and on the sides 5. CAUSE: What do you think is causing the toe pain? occurred after taking off her shoes 6. OTHER SYMPTOMS: Do you have any other symptoms? (e.g., leg pain, rash, fever, numbness) Denies 7. : Is there any chance you are ? When was your last menstrual period? N/A Protocols used: Toe [id number] Called patient at [phone] to triage her upcoming appointment with Dr. Guy for big toe redness and pain. Dr. Guy has many openings sooner than this if she needs to move it up. Left message on voicemail for patient to return call to triage. documented in this encounter [facility] 08-05-2022 Miscellaneous Notes Pharmacy verified in [facility] Patient has been identified by name and date of : Yes Patient aware RX will be sent to pharmacy. No need to notify patient. Pharmacy phones for refill(s): Requested Prescriptions Pending Prescriptions Disp Refills esomeprazole (NEXIUM) 40 mg capsule [Pharmacy Med Name: ESOMEPRA MAG CAP 40MG DR] 90 capsule 3 Sig: TAKE 1 CAPSULE DAILY BEFOREBREAKFAST. 1/2 HOUR BEFORE A MEAL Date of last office visit : 04/08/2022 Date of next office visit : Visit date not found Last 2 Encounter Wt Readings: Date: Wt: 04/08/2022 0 kg () 10/29/2021 0 kg () Not applicable Please advise. Malika Sheikh LPN documented in this encounter [facility] 07-14-2022 Miscellaneous Notes Received 07/14/2022 from Patient. Placed in provider's inbox for review. Route to [place] for mailing Disability license plate form documented in this encounter [facility] 06-12-2022 Instructions Leonid Roach APRN.APPLIED STATISTICIAN - 06/12/2022 10:05 AM EST FACT SHEET FOR PATIENTS, PARENTS, AND CAREGIVERS EMERGENCY USE AUTHORIZATION (EUA) OF PAXLOVID FOR CORONAVIRUS DISEASE 2019 (COVID-19) You are being given this Fact Sheet because your healthcare provider believes it is necessary to provide you with PAXLOVID for the treatment of ieik-ov-phkppame coronavirus disease (COVID-19) caused by the SARS-CoV-2 virus. This Fact Sheet contains information to help you understand the risks and benefits of taking the PAXLOVID you have received or may receive. The U.S. Food and Drug Administration (FDA) has issued an Emergency Use Authorization (EUA) to make PAXLOVID available during the COVID-19 pandemic (for more details about an EUA please see What is an Emergency Use Authorization? at the end of this document). PAXLOVID is not an FDA-approved medicine in the [place]. Read this Fact Sheet for information about PAXLOVID. Talk to your healthcare provider about your options or if you have any questions. It is your choice to take PAXLOVID. What is COVID-19? COVID-19 is caused by a virus called a coronavirus. You can get COVID-19 through close contact with another person who has the virus. COVID-19 illnesses have ranged from very ssyc-fh-rewfov, including illness resulting in . While information so far suggests that most COVID-19 illness is mild, serious illness can happen and may cause some of your other medical conditions to become worse. Older people and people of all ages with severe, long lasting (chronic) medical conditions like heart disease, lung disease, and diabetes, for example seem to be at higher risk of being hospitalized for COVID-19. What is PAXLOVID? PAXLOVID is an investigational medicine used to treat losq-nf-tppiqnbu COVID-19 in adults and children [12 years of age and older weighing at least 88 pounds (40 kg)] with positive results of direct SARS-CoV-2 viral testing, and who are at high risk for progression to severe COVID-19, including hospitalization or . PAXLOVID is investigational because it is still being studied. There is limited information about the safety and effectiveness of using PAXLOVID to treat people with wbyz-hg-aikfombn COVID-19. The FDA has authorized the emergency use of PAXLOVID for the treatment of ufdy-et-puqylcna COVID-19 in adults and children [12 years of age and older weighing at least 88 pounds (40 kg)] with a positive test for the virus that causes COVID-19, and who are at high risk for progression to severe COVID-19, including hospitalization or , under an EUA. 1 Revised: 18 October 2021 What should I tell my healthcare provider before I take PAXLOVID? Tell your healthcare provider if you: Have any allergies Have liver or kidney disease Are or plan to become Are a child Have any serious illnesses Tell your healthcare provider about all the medicines you take, including prescription and gbqp-cdf-aqrjbdo medicines, vitamins, and herbal supplements. Some medicines may interact with PAXLOVID and may cause serious side effects. Keep a list of your medicines to show your healthcare provider and pharmacist when you get a new medicine. You can ask your healthcare provider or pharmacist for a list of medicines that interact with PAXLOVID. Do not start taking a new medicine without telling your healthcare provider. Your healthcare provider can tell you if it is safe to take PAXLOVID with other medicines. Tell your healthcare provider if you are taking combined hormonal contraceptive. PAXLOVID may affect how your control pills work. Females who are able to become should use another effective alternative form of contraception or an additional barrier method of contraception. Talk to your healthcare provider if you have any questions about contraceptive methods that might be right for you. How do I take PAXLOVID? PAXLOVID consists of 2 medicines: nirmatrelvir and ritonavir. Take 2 pink tablets of nirmatrelvir with 1 white tablet of ritonavir by mouth 2 times each day (in the morning and in the evening) for 5 days. For each dose, take all 3 tablets at the same time. If you have kidney disease, talk to your healthcare provider. You may need a different dose. Swallow the tablets whole. Do not chew, break, or crush the tablets. Take PAXLOVID with or without food. Do not stop taking PAXLOVID without talking to your healthcare provider, even if you feel better. If you miss a dose of PAXLOVID within 8 hours of the time it is usually taken, take it as soon as you remember. If you miss a dose by more than 8 hours, skip the missed dose and take the next dose at your regular time. Do not take 2 doses of PAXLOVID at the same time. If you take too much PAXLOVID, call your healthcare provider or go to the nearest hospital emergency room right away. If you are taking a ritonavir-or cobicistat-containing medicine to treat hepatitis C or Human Immunodeficiency Virus (HIV), you should continue to take your medicine as prescribed by your healthcare provider. Talk to your healthcare provider if you do not feel better or if you feel worse after 5 days. Who should generally not take PAXLOVID? Do not take PAXLOVID if: You are allergic to nirmatrelvir, ritonavir, or any of the ingredients in PAXLOVID You are taking any of the following medicines: Alfuzosin Pethidine, propoxyphene Ranolazine Amiodarone, dronedarone, flecainide, propafenone, quinidine Colchicine Lurasidone, pimozide, clozapine Dihydroergotamine, ergotamine, methylergonovine Lovastatin, simvastatin Sildenafil (Revatio ) for pulmonary arterial hypertension (PAH) Triazolam, oral midazolam Apalutamide Carbamazepine, phenobarbital, phenytoin Rifampin Spearman s Wort (hypericum perforatum) Taking PAXLOVID with these medicines may cause serious or life-threatening side effects or affect how PAXLOVID works. These are not the only medicines that may cause serious side effects if taken with PAXLOVID. PAXLOVID may increase or decrease the levels of multiple other medicines. It is very important to tell your healthcare provider about all of the medicines you are taking because additional laboratory tests or changes in the dose of your other medicines may be necessary while you are taking PAXLOVID. Your healthcare provider may also tell you about specific symptoms to watch out for that may indicate that you need to stop or decrease the dose of some of your other medicines. What are the important possible side effects of PAXLOVID? Possible side effects of PAXLOVID are: Allergic Reactions. Allergic reactions can happen in people taking PAXLOVID, even after only 1 dose. Stop taking PAXLOVID and call your healthcare provider right away if you get any of the following symptoms of an allergic reaction: hives trouble swallowing or breathing swelling of the mouth, lips, or face throat tightness hoarseness skin rash Liver Problems. Tell your healthcare provider right away if you have any of these signs and symptoms of liver problems: loss of appetite, yellowing of your skin and the whites of eyes (jaundice), dark-colored urine, pale colored stools and itchy skin, stomach area (abdominal) pain. Resistance to HIV Medicines. If you have untreated HIV infection, PAXLOVID may lead to some HIV medicines not working as well in the future. Other possible side effects include: altered sense of taste diarrhea high blood pressure muscle aches These are not all the possible side effects of PAXLOVID. Not many people have taken PAXLOVID. Serious and unexpected side effects may happen. PAXLOVID is still being studied, so it is possible that all of the risks are not known at this time. What other treatment choices are there? Veklury (remdesivir) is FDA-approved for the treatment of udzk-ga-ywtkxqnv COVID-19 in certain adults and children. Talk with your doctor to see if Veklury is appropriate for you. Like PAXLOVID, FDA may also allow for the emergency use of other medicines to treat people with COVID-19. Go to https://www.fda.gov/emergency-prep aredness-andresponse/bhx-hdjmj-hab mmmcpaq-duq-naykvq-framework/emerg hsrm-njm-gsajhnebvzslt for information on the emergency use of other medicines that are authorized by FDA to treat people with COVID-19. Your healthcare provider may talk with you about clinical trials for which you may be eligible. It is your choice to be treated or not to be treated with PAXLOVID. Should you decide not to receive it or for your child not to receive it, it will not change your standard medical care. What if I am or ? There is radiographic technologist treating women or mothers with PAXLOVID. For a mother and unborn baby, the benefit of taking PAXLOVID may be greater than the risk from the treatment. If you are , discuss your options and specific situation with your healthcare provider. It is recommended that you use effective barrier contraception or do not have sexual activity while taking PAXLOVID. If you are , discuss your options and specific situation with your healthcare provider. How do I report side effects with PAXLOVID? Contact your healthcare provider if you have any side effects that bother you or do not go away. Report side effects to FDA MedWatch at www.fda.gov/medwatch or call 2-920-NTD4487 or you can report side effects to [employer]. at the contact information provided below. Website Fax number Telephone number [employer] How should I store PAXLOVID? Store PAXLOVID tablets at room temperature, between 68?F to 77?F (20?C to 25?C). How can I learn more about COVID-19? Ask your healthcare provider. Visit https://www.cdc.gov/COVID19. Contact your local or state public health department. What is an Emergency Use Authorization (EUA)? The [place] FDA has made PAXLOVID available under an emergency access mechanism called an Emergency Use Authorization (EUA). The EUA is supported by a Gl [employer]ant of Health and Human Service (HHS) declaration that circumstances exist to justify the emergency use of drugs and biological products during the COVID-19 pandemic. PAXLOVID for the treatment of emsa-rw-gcpyohot COVID-19 in adults and children [12 years of age and older weighing at least 88 pounds (40 kg)] with positive results of direct SARS-CoV-2 viral testing, and who are at high risk for progression to severe COVID-19, including hospitalization or , has not undergone the same type of review as an FDA-approved product. In issuing an EUA under the COVID-19 public health emergency, the FDA has determined, among other things, that based on the total amount of scientific evidence available including data from adequate and well-controlled clinical trials, if available, it is reasonable to believe that the product may be effective for diagnosing, treating, or preventing COVID-19, or a serious or life-threatening disease or condition caused by COVID-19; that the known and potential benefits of the product, when used to diagnose, treat, or prevent such disease or condition, outweigh the known and potential risks of such product; and that there are no adequate, approved, and available alternatives. All of these criteria must be met to allow for the product to be used in the treatment of patients during the COVID-19 pandemic. The EUA for PAXLOVID is in effect for the duration of the COVID-19 declaration justifying emergency use of this product, unless terminated or revoked (after which the products may no longer be used under the EUA). Additional Information For general questions, visit the website or call the telephone number provided below. Website Telephone number www.OSPAI83gfpqJz.com (4-682-B15-WRMZ) You can also go to [email or web address] or call for more information. Pfizer Distributed by [employer] [place] [address] [id number] Revised: 18 October 2021 FACT SHEET FOR PATIENTS, PARENTS, AND CAREGIVERS EMERGENCY USE AUTHORIZATION (EUA) OF PAXLOVID FOR CORONAVIRUS DISEASE 2019 (COVID-19) You are being given this Fact Sheet because your healthcare provider believes it is necessary to provide you with PAXLOVID for the treatment of uzmf-jv-ogywlitk coronavirus disease (COVID-19) caused by the SARS-CoV-2 virus. This Fact Sheet contains information to help you understand the risks and benefits of taking the PAXLOVID you have received or may receive. The U.S. Food and Drug Administration (FDA) has issued an Emergency Use Authorization (EUA) to make PAXLOVID available during the COVID-19 pandemic (for more details about an EUA please see What is an Emergency Use Authorization? at the end of this document). PAXLOVID is not an FDA-approved medicine in the [place]. Read this Fact Sheet for information about PAXLOVID. Talk to your healthcare provider about your options or if you have any questions. It is your choice to take PAXLOVID. What is COVID-19? COVID-19 is caused by a virus called a coronavirus. You can get COVID-19 through close contact with another person who has the virus. COVID-19 illnesses have ranged from very ltgb-hr-tgwxbm, including illness resulting in . While information so far suggests that most COVID-19 illness is mild, serious illness can happen and may cause some of your other medical conditions to become worse. Older people and people of all ages with severe, long lasting (chronic) medical conditions like heart disease, lung disease, and diabetes, for example seem to be at higher risk of being hospitalized for COVID-19. What is PAXLOVID? PAXLOVID is an investigational medicine used to treat hdic-qc-klhnrras COVID-19 in adults and children [12 years of age and older weighing at least 88 pounds (40 kg)] with positive results of direct SARS-CoV-2 viral testing, and who are at high risk for progression to severe COVID-19, including hospitalization or . PAXLOVID is investigational because it is still being studied. There is limited information about the safety and effectiveness of using PAXLOVID to treat people with mzav-lc-jlsfbewf COVID-19. The FDA has authorized the emergency use of PAXLOVID for the treatment of hhdb-rf-etehbsev COVID-19 in adults and children [12 years of age and older weighing at least 88 pounds (40 kg)] with a positive test for the virus that causes COVID-19, and who are at high risk for progression to severe COVID-19, including hospitalization or , under an EUA. 1 Revised: 18 October 2021 What should I tell my healthcare provider before I take PAXLOVID? Tell your healthcare provider if you: Have any allergies Have liver or kidney disease Are or plan to become Are a child Have any serious illnesses Tell your healthcare provider about all the medicines you take, including prescription and xert-lsz-gitcnkc medicines, vitamins, and herbal supplements. Some medicines may interact with PAXLOVID and may cause serious side effects. Keep a list of your medicines to show your healthcare provider and pharmacist when you get a new medicine. You can ask your healthcare provider or pharmacist for a list of medicines that interact with PAXLOVID. Do not start taking a new medicine without telling your healthcare provider. Your healthcare provider can tell you if it is safe to take PAXLOVID with other medicines. Tell your healthcare provider if you are taking combined hormonal contraceptive. PAXLOVID may affect how your control pills work. Females who are able to become should use another effective alternative form of contraception or an additional barrier method of contraception. Talk to your healthcare provider if you have any questions about contraceptive methods that might be right for you. How do I take PAXLOVID? PAXLOVID consists of 2 medicines: nirmatrelvir and ritonavir. Take 2 pink tablets of nirmatrelvir with 1 white tablet of ritonavir by mouth 2 times each day (in the morning and in the evening) for 5 days. For each dose, take all 3 tablets at the same time. If you have kidney disease, talk to your healthcare provider. You may need a different dose. Swallow the tablets whole. Do not chew, break, or crush the tablets. Take PAXLOVID with or without food. Do not stop taking PAXLOVID without talking to your healthcare provider, even if you feel better. If you miss a dose of PAXLOVID within 8 hours of the time it is usually taken, take it as soon as you remember. If you miss a dose by more than 8 hours, skip the missed dose and take the next dose at your regular time. Do not take 2 doses of PAXLOVID at the same time. If you take too much PAXLOVID, call your healthcare provider or go to the nearest hospital emergency room right away. If you are taking a ritonavir-or cobicistat-containing medicine to treat hepatitis C or Human Immunodeficiency Virus (HIV), you should continue to take your medicine as prescribed by your healthcare provider. Talk to your healthcare provider if you do not feel better or if you feel worse after 5 days. Who should generally not take PAXLOVID? Do not take PAXLOVID if: You are allergic to nirmatrelvir, ritonavir, or any of the ingredients in PAXLOVID You are taking any of the following medicines: Alfuzosin Pethidine, propoxyphene Ranolazine Amiodarone, dronedarone, flecainide, propafenone, quinidine Colchicine Lurasidone, pimozide, clozapine Dihydroergotamine, ergotamine, methylergonovine Lovastatin, simvastatin Sildenafil (Revatio ) for pulmonary arterial hypertension (PAH) Triazolam, oral midazolam Apalutamide Carbamazepine, phenobarbital, phenytoin Rifampin Spearman s Wort (hypericum perforatum) Taking PAXLOVID with these medicines may cause serious or life-threatening side effects or affect how PAXLOVID works. These are not the only medicines that may cause serious side effects if taken with PAXLOVID. PAXLOVID may increase or decrease the levels of multiple other medicines. It is very important to tell your healthcare provider about all of the medicines you are taking because additional laboratory tests or changes in the dose of your other medicines may be necessary while you are taking PAXLOVID. Your healthcare provider may also tell you about specific symptoms to watch out for that may indicate that you need to stop or decrease the dose of some of your other medicines. What are the important possible side effects of PAXLOVID? Possible side effects of PAXLOVID are: Allergic Reactions. Allergic reactions can happen in people taking PAXLOVID, even after only 1 dose. Stop taking PAXLOVID and call your healthcare provider right away if you get any of the following symptoms of an allergic reaction: hives trouble swallowing or breathing swelling of the mouth, lips, or face throat tightness hoarseness skin rash Liver Problems. Tell your healthcare provider right away if you have any of these signs and symptoms of liver problems: loss of appetite, yellowing of your skin and the whites of eyes (jaundice), dark-colored urine, pale colored stools and itchy skin, stomach area (abdominal) pain. Resistance to HIV Medicines. If you have untreated HIV infection, PAXLOVID may lead to some HIV medicines not working as well in the future. Other possible side effects include: altered sense of taste diarrhea high blood pressure muscle aches These are not all the possible side effects of PAXLOVID. Not many people have taken PAXLOVID. Serious and unexpected side effects may happen. PAXLOVID is still being studied, so it is possible that all of the risks are not known at this time. What other treatment choices are there? Veklury (remdesivir) is FDA-approved for the treatment of zmyq-wu-njshalok COVID-19 in certain adults and children. Talk with your doctor to see if Veklury is appropriate for you. Like PAXLOVID, FDA may also allow for the emergency use of other medicines to treat people with COVID-19. Go to https://www.fda.gov/emergency-prep aredness-andresponse/mlu-dpkvw-ucn kpxeuuh-tsl-melpwu-framework/emerg peyd-esp-bjnxxtzupbldw for information on the emergency use of other medicines that are authorized by FDA to treat people with COVID-19. Your healthcare provider may talk with you about clinical trials for which you may be eligible. It is your choice to be treated or not to be treated with PAXLOVID. Should you decide not to receive it or for your child not to receive it, it will not change your standard medical care. What if I am or ? There is radiographic technologist treating women or mothers with PAXLOVID. For a mother and unborn baby, the benefit of taking PAXLOVID may be greater than the risk from the treatment. If you are , discuss your options and specific situation with your healthcare provider. It is recommended that you use effective barrier contraception or do not have sexual activity while taking PAXLOVID. If you are , discuss your options and specific situation with your healthcare provider. How do I report side effects with PAXLOVID? Contact your healthcare provider if you have any side effects that bother you or do not go away. Report side effects to [employer] at www.fda.gov/medVirallytch or call 1-659-GDF6512 or you can report side effects to [employer]. at the contact information provided below. Website Fax number Telephone number [email or web address] How should I store PAXLOVID? Store PAXLOVID tablets at room temperature, between 68?F to 77?F (20?C to 25?C). How can I learn more about COVID-19? Ask your healthcare provider. Visit https://www.cdc.gov/COVID19. Contact your local or state public health department. What is an Emergency Use Authorization (EUA)? The [place] FDA has made PAXLOVID available under an emergency access mechanism called an Emergency Use Authorization (EUA). The EUA is supported by a Gl Accountant of Health and Human Service (HHS) declaration that circumstances exist to justify the emergency use of drugs and biological products during the COVID-19 pandemic. PAXLOVID for the treatment of djeb-xq-geggprar COVID-19 in adults and children [12 years of age and older weighing at least 88 pounds (40 kg)] with positive results of direct SARS-CoV-2 viral testing, and who are at high risk for progression to severe COVID-19, including hospitalization or , has not undergone the same type of review as an FDA-approved product. In issuing an EUA under the COVID-19 public health emergency, the FDA has determined, among other things, that based on the total amount of scientific evidence available including data from adequate and well-controlled clinical trials, if available, it is reasonable to believe that the product may be effective for diagnosing, treating, or preventing COVID-19, or a serious or life-threatening disease or condition caused by COVID-19; that the known and potential benefits of the product, when used to diagnose, treat, or prevent such disease or condition, outweigh the known and potential risks of such product; and that there are no adequate, approved, and available alternatives. All of these criteria must be met to allow for the product to be used in the treatment of patients during the COVID-19 pandemic. The EUA for PAXLOVID is in effect for the duration of the COVID-19 declaration justifying emergency use of this product, unless terminated or revoked (after which the products may no longer be used under the EUA). Additional Information For general questions, visit the website or call the telephone number provided below. Website Telephone number [email or web address] (4-548-M38-SZSQ) You can also go to www.[employer] or call for more information. Pfizer Distributed by [employer] [place] [address] [id number] Revised: 18 October 2021 documented in this encounter [facility] 06-12-2022 History of Present illness Narrative Nirmatrelvir/Ritonavir (Paxlovid) Eligibility and Patient Discussion [facility] Formulary Restriction Criteria: Adult outpatients 18 years and older with ALL of the following: [x] Patient has positive SARS-COV-2 viral test (PCR or antigen test) during current illness [x] Patient has symptoms for 5 days or less [x] Not requiring hospitalization at any time for management of COVID-19 [x] Not requiring supplemental oxygen or a change in baseline supplemental oxygen [x] Not utilized for pre-exposure or post-exposure prophylaxis for prevention of COVID-19 [x] Patient does not have severe renal impairment (eGFR < 30 mL/min) or severe hepatic impairment (Child-Valedz Class C) [x] Meeting at least one of the criteria for high risk of progression to severe COVID-19: [x] Age over 65 years [] Cancer [] Chronic kidney disease [] Chronic liver disease [] Chronic lung diseases, including cystic fibrosis [] Dementia or other neurological conditions [] Diabetes (type 1 or type 2) [] Disabilities, including Down syndrome and neurodevelopmental disorders [] Heart conditions [] HIV infection [] Immunocompromised state [] Mental health conditions [] Medical related technological dependence (tracheostomy, gastrostomy, or positive pressure ventilation (not related to COVID) [] Overweight and obesity (BMI greater or equal to 25 for adults) [] Physical inactivity [] [] Sickle cell disease or thalassemia [] Smoking, current or former [] Solid organ or blood stem cell transplant [] Stroke or cerebrovascular disease [] Substance use disorders [] Tuberculosis [] People from racial and ethnic minority groups Criteria above are met: Yes Date of Positive Test: yesterday Date of Symptom Onset: 4 days ago Patient received COVID vaccine: Yes Drug-Drug interactions reviewed: Yes. No drug interactions were identified. I have discussed the use of the investigational therapeutic, nirmatrelvir/ritonavir, for the treatment of mild to moderate COVID-19 and its use under Emergency Use Authorization with the patient. The patient was informed that nirmatrelvir/ritonavir is not an FDA approved drug and that it is authorized for use under this Emergency Use Authorization. The patient was also informed of the significant known benefits and potential risks of nirmatrelvir/ritonavir, and the extent to which such potential risks and benefits are unknown. The patient was informed that there is mandatory reporting of all medication errors and serious adverse events potentially related to nirmatrelvir/ritonavir treatment within 7 calendar days from the onset of the event and that events up to 28 days after completion of therapy need to be reported. The discussion included alternatives to receiving nirmatrelvir/ritonavir, including clinical trials, and potential the risks and benefits of those alternatives. The patient was provided electronically with the Fact Sheet for Patients, Parents and Caregivers. The patient was also instructed that in addition to the treatment with nirmatrelvir/ritonavir, he/she should continue to self-isolate and use infection control measures (e.g., wear mask, isolate, social distance, avoid sharing personal items, clean and disinfect high touch surfaces, and frequent handwashing) according to CDC guidelines. The patient stated understanding and gave verbal consent to proceeding with nirmatrelvir/ritonavir treatment. Leonid Roach APRN.CNP June 12, 2022 10:02 AM Symptoms x 4 days: nasal congestion/drainage, eyes burning, cough. No wheezing/SOB/fever. Has been taking sudafed. Telephone time: 9 minutes documented in this encounter [facility] 06-11-2022 Miscellaneous Notes Schedule virtual visit with any provider or offer express care on-line visit to discuss antiviral treatment. Leonid Roach APRN.CNP Patient appears to have mild COVID sx at this time. Tested this am at home. Lives in an assisted living facility. Patient asking for the antiviral medication. Please advise. Pharmacy checked. Reason for Disposition [1] COVID-19 diagnosed by positive lab test (e.g., PCR, rapid self-test kit) AND [2] mild symptoms (e.g., cough, fever, others) AND [3] no complications or SOB Answer Assessment - Initial Assessment Questions 1. COVID-19 DIAGNOSIS: Who made your COVID-19 diagnosis? Was it confirmed by a positive lab test or self-test? If not diagnosed by a doctor (or LENS GRINDING MACHINE OPERATOR/PA), ask Are there lots of cases (community spread) where you live? Note: See [facility] department website, if unsure. Home Test 2. COVID-19 EXPOSURE: Was there any known exposure to COVID before the symptoms began? CDC Definition of close contact: within 6 feet (2 meters) for a total of 15 minutes or more over a 24-hour period. Yes, where she lives 3. ONSET: When did the COVID-19 symptoms start? Thursday 4. WORST SYMPTOM: What is your worst symptom? (e.g., cough, fever, shortness of breath, muscle aches) Cough, 5. COUGH: Do you have a cough? If Yes, ask: How bad is the cough? Sl. Cough, trying to cough up secretions 6. FEVER: Do you have a fever? If Yes, ask: What is your temperature, how was it measured, and when did it start? Denies 7. RESPIRATORY STATUS: Describe your breathing? (e.g., shortness of breath, wheezing, unable to speak) Denies 8. APDHIO-TLQM-VYIAJ: Are you getting better, staying the same or getting worse compared to yesterday? If getting worse, ask, In what way? Unchanged 9. HIGH RISK DISEASE: Do you have any chronic medical problems? (e.g., asthma, heart or lung disease, weak immune system, obesity, etc.) Denies 10. VACCINE: Have you had the COVID-19 vaccine? If Yes, ask: Which one, how many shots, when did you get it? Yes, Pfizer 11. BOOSTER: Have you received your COVID-19 booster? If Yes, ask: Which one and when did you get it? 2 Pfizer 12. : Is there any chance you are ? When was your last menstrual period? N/A 13. OTHER SYMPTOMS: Do you have any other symptoms? (e.g., chills, fatigue, headache, loss of smell or taste, muscle pain, sore throat) Chills, fatigue, drainage in throat 14. O2 SATURATION MONITOR: Do you use an oxygen saturation monitor (pulse oximeter) at home? If Yes, ask What is your reading (oxygen level) today? What is your usual oxygen saturation reading? (e.g., 95%) 97%-62 Protocols used: Coronavirus (COVID-19) Diagnosed or [id number] documented in this encounter [facility] 06-11-2022 Miscellaneous Notes Patient being triaged in One Click encounter. Corrine Lopez RN Appointment with Hilton Brice @ 3:00 today. Patient tested positive for COVID and wants to have prescription called in to [facility] in [place]. Symptoms: Cold Cough Sinus pressure Runny nose Eyes are burning Patient also stated she fell last night at home. Called the squad to come and pick her up. Contact patient at [phone] Cris Hernandez Pss documented in this encounter [facility] 04-09-2022 Miscellaneous Notes Called pt and informed of results pt indicated understanding. Hba1c diabetes test well inside normal range Thyroid stimulating hormone is in normal range, indicating normal thyroid function. Sahra Guy MD documented in this encounter [facility] 03-26-2022 Miscellaneous Notes The following approved medication requests have been transmitted electronically. Requested Prescriptions Pending Prescriptions Disp Refills metroNIDAZOLE (METROGEL) 0.75 % Topical Gel 135 g 3 Sig: APPLY 1 APPLICATION TO AFFECTED AREA ONCE DAILY TOFACE Sahra Guy MD Patient has been identified by name and date of : Yes Requested Prescriptions Pending Prescriptions Disp Refills metroNIDAZOLE (METROGEL) 0.75 % Topical Gel 135 g 3 Sig: APPLY 1 APPLICATION TO AFFECTED AREA ONCE DAILY TOFACE RX INSTRUCTIONS: Patient aware RX escripted to mail away pharmacy. No need to notify patient. Tete Mora Pss documented in this encounter [facility] 03-21-2022 Miscellaneous Notes Mail box is full. Unable to reach patient. We can only do the blood draw while at the appointment. She might as well wait and we'll draw blood at the appointment, thyroid and any other needed bloodwork She did have a blood count earlier this year and a thyroid test last year. It's not that likely that this has changed a lot. Sahra Guy MD Tena Cannon is calling Sahra Guy MD today to request lab orders to check her Thyroid; she has fatigue and is always very cold. Next, she wants to know if the thyroid test can be completed before her appointment on 04/08 or should she wait until the appointment? Either way, she has to get transportation to the office, and is asking that the lab test be drawn by the nurse at our office. Please call the patient. Patient has been identified by name and birthdate. Duration of symptoms: N/A Person calling: self Call patient at: at home [phone] (home) [phone] (cell) Was an appointment scheduled: No Closing statement: Results or non-symptom based questions: Thank you for calling [facility], your call will be returned within the next business day. Tete Mora Pss documented in this encounter [facility] 12-19-2021 Miscellaneous Notes Received request for PCP signature from [facility]. Placed in provider's inbox for review. Route to [place] fax documented in this encounter [facility] 12-13-2021 History of Present illness Narrative POPULATION HEALTH NAVIGATION OUTREACH Action/I LVM FOR PATIENT TO CALL BACK AND SCHEDULE CONSULT FOR PT/OT. [phone] Pt identified by name and : NO Outreach Outcome/Action Unable to reach patient: Left message Reason for Outreach Care Gap or Scheduling/Wellness visits Payer: Payor: MEDICARE / Plan: MEDICARE A AND B / Product Type: Medicare / Care Gap Reviewed:: N/A PT consult Reminder: Reminder note to check Health Maintenance for items below Health Maintenance items due: DTAP,TDAP,TD(1 - Tdap) due on 03/11/2014 ADVANCE DIRECTIVE DISCUSSION Never done COVID-19 VACCINE(4 - Booster for Pfizer series) due on 10/02/2021 Message Sent to Practice: No Navigation Signature: Nakita Bronson December 13, 2021 4:32 PM documented in this encounter [facility] 12-05-2021 Miscellaneous Notes [facility] office printed in provider inbox pending signature. [facility] calling to request office note from 10/29/21. Also requesting a physician signature on the note. Please fax to [phone] documented in this encounter [facility] 12-04-2021 Miscellaneous Notes Received [facility] from [facility]. Placed in provider's inbox for review. Route to [place] for faxing [phone] documented in this encounter [facility] 12-02-2021 Miscellaneous Notes Update and orders signed and faxed to [facility]. documented in this encounter [facility] 11-28-2021 Miscellaneous Notes Received 11/28/2021 from [facility]. Placed in provider's inbox for review. Route to [place] for scanning Discharge summary documented in this encounter [facility] 11-21-2021 Miscellaneous Notes Received 11/21/2021 from [facility]. Placed in provider's inbox for review. Route to [place] for faxing [phone] Home health certification and plan of care to be signed and faxed. documented in this encounter [facility] 11-20-2021 Miscellaneous Notes Spoke to Rachel. Additional signed note from 08/08/2021 faxed Rachel, from [facility] stated she received the fax, but it was not signed by Dr. Guy. Said it was signed by a scribe. Please re-fax to [phone]. Rachel can be reached at [phone]. Fax sent Rachel from [facility] is requesting the chart note from the 10-29-21 visit to be used as a F2F visit for her [facility]. It can be faxed to [phone] Att: Rachel documented in this encounter [facility] 11-05-2021 Miscellaneous Notes Noted. Lenoid Roach APRN.CNP Shabana, Physical Therapist from [facility] called to update the doctor. Today she completed the PT evaluation and start of care: 2 times per week 2 -week period 1 time per week for 2 more weeks She will work with the patient on: Transfers, home safety, strengthening; any pain issues; no further action is requested, she is providing an update. documented in this encounter [facility] 10-31-2021 Miscellaneous Notes The physical therapy referral was linked with the diagnoses of poliomyelitis of multiple sites and the right knee pain, so they should be able to assess both knees based on this referral. If a new referral is indicated after the therapist's initial assessment and recommendations, we can add at that time. Leonid Roach APRN.CNP Called patient and gave results.Patient would like labs results mailed to her. Printed flowsheet and mailed. Patient would like PT for bilateral knees. The order that is in is for Right Knee only. Please place new referral and patient is going to use [facility]. Let patient know that her labs all looked good. No current anemia. Cholesterol within normal limits. Kidney function is stable. Leonid Roach APRN.ANTONY documented in this encounter [facility] 10-29-2021 History of Present illness Narrative Pt scheduled as Medicare wellness but has symptoms. OAB Patient is managed on oxybutynin GERD Patient is managed on Nexium 40 mg. ALVERTO Patient has not had a sleep study done in years. Leg swelling Patient got compression stockings but they do not fit. She says that compression is too tight. She;s perturbed. Patient is still having burning in the leg. She also notes that her balance has gotten worse. She thinks her balance issues is from her knee pain Patient had a previous procedure to reduce the buckling in her knee SOB Patient says that when she exerts herself it has been taking longer. 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 Leukopenia Unspecified sleep apnea cpap PAST SURGICAL HISTORY Procedure Laterality Date APPENDECTOMY tubal ligation CARPAL TUNNEL RIGHT WRIST 07/05 COLONOSCOPY 03/30/2013 normal exam EGD 03/30/2013 hiatal hernia, Anatolyary-Marshall Grade III reflux esophagitis, gastric polyps EGD 09/07/2018 SSBE noted on exam, not confirmed on biopsy, gastritis, neg H Pylori, fundic gland polyp IR KYPHOPLASTY LUMBAR 2006 L-3 LAPAROSCOPY SURG CHOLECYSTECTOMY Cholecystectomy, lap PAST SURGICAL HISTORY OF 2007 CMCJleft wrist PAST SURGICAL HISTORY OF child tendon transplants right ankle and both knees PAST SURGICAL HISTORY OF teens left great toe X 2 PAST SURGICAL HISTORY OF 1986 left rotator cuff repair and bone spur PAST SURGICAL HISTORY OF bone spur right shoulder RMVL SEC MEMBRANOUS CTRC CORNEO-SCLL SCTJ Cataract removal left with lens implant ALLERGIES: Keflex [Cephalexin], Novacaine [Other], Vioxx [Rofecoxib], Sumner-3 Fish Oil [Sumner-3 Fatty Acids-Vitamin E], Advil [Ibuprofen], and Asa [Salicylates] Medications reviewed: Yes FAMILY HISTORY Problem Relation Age of Onset Heart Mother Hypertension Mother Headache Mother Diabetes Father Diabetes Paternal Grandmother Stroke Brother Stroke Paternal Grandfather Heart Other Heart Paternal Uncle Heart Maternal Uncle Hypertension Sister Hypertension Brother Diabetes Son Seizures Other niece other (dementia) Maternal Aunt other (brain hemorrhage) Other cousin SOCIAL HISTORY: Social History Tobacco Use Smoking status: Passive Smoke Exposure - Never Smoker Smokeless tobacco: Never Used Tobacco comment: second hand smoke exposure. Vaping Use Vaping Use: Never used Substance Use Topics Alcohol use: Yes Comment: Rare Drug use: Never PHYSICAL EXAM BP 152/67 Pulse 71 Repeat BP: 120/60 Alert and oriented X 3: YES There is no height or weight on file to calculate BMI. Heart: Regular rate and rhythm. Normal S1 and S2. No murmurs, rubs, or gallops. Lungs: Clear to auscultation bilaterally. No respiratory distress. No wheezes, rales, or rhonchi. 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 (G47.33, Z99.89) Obstructive sleep apnea on CPAP Comment: well controlled on current regimen Plan: continue on current regimen (Z86.2) History of iron deficiency anemia Comment: per previous labs Plan: CBC, IRON + TIBC (H40.9) Glaucoma of left eye, unspecified glaucoma type Comment: well controlled on current regimen Plan: continue using drops in left eye (Z13.220) Screening for lipid disorders Comment: Due for routine labs. Plan: LIPID PANEL BASIC No medications selected for refill. ATTESTATION: By signing my name below, I, Kristen Menjivar, attest that this documentation has been prepared under the direction and in the presence of Sahra Guy MD. Electronically signed:Jakob Carrion, October 29, 2021 10:15 AM documented in this encounter [facility] 08-25-2018 History of Past i llness Narrative Problem Noted Date Resolved Date Epigastric pain 08/25/2018 11/24/2018 Shingles rash 07/29/2018 02/01/2019 Last Assessment & Plan: Assessment: Linear rash to left flank that wraps around under left breast Does not cross midline PLAN: Start Acyclovir Start Lidocaine cream PRN Increase Gabapentin to 200mg TID Tylenol q8h for comfort Contact/droplet precautions AM labs Herpes zoster lesion 07/29/2018 02/01/2019 Fracture of L1 vertebra 06/02/2014 02/02/20 19 Sleep apnea 04/15/2010 02/01/2019 documented as of this encounter (statuses as of 10/29/2021) [facility] History of Past illness Narrative* Problem Noted Date Resolved Date Epigastric pain 08/25/2018 11/24/2018 Shingles rash 07/29/2018 02/01/2019 Last Assessment & Plan: Assessment: Linear rash to left flank that wraps around under left breast Does not cross midline PLAN: Start Acyclovir Start Lidocaine cream PRN Increase Gabapentin to 200mg TID Tylenol q8h for comfort Contact/droplet precautions AM labs Herpes zoster lesion 07/29/2018 02/01/2019 Fracture of L1 vertebra 06/02/2014 02/02/20 19 Sleep apnea 04/15/2010 02/01/2019 documented as of this encounter (statuses as of 10/31/2021) [facility] History of Past illness Narrative* Problem Noted Date Resolved Date Epigastric pain 08/25/2018 11/24/2018 Shingles rash 07/29/2018 02/01/2019 Last Assessment & Plan: Assessment: Linear rash to left flank that wraps around under left breast Does not cross midline PLAN: Start Acyclovir Start Lidocaine cream PRN Increase Gabapentin to 200mg TID Tylenol q8h for comfort Contact/droplet precautions AM labs Herpes zoster lesion 07/29/2018 02/01/2019 Fracture of L1 vertebra 06/02/2014 02/02/20 19 Sleep apnea 04/15/2010 02/01/2019 documented as of this encounter (statuses as of 11/06/2021) [facility] History of Past illness Narrative* Problem Noted Date Resolved Date Epigastric pain 08/25/2018 11/24/2018 Shingles rash 07/29/2018 02/01/2019 Last Assessment & Plan: Assessment: Linear rash to left flank that wraps around under left breast Does not cross midline PLAN: Start Acyclovir Start Lidocaine cream PRN Increase Gabapentin to 200mg TID Tylenol q8h for comfort Contact/droplet precautions AM labs Herpes zoster lesion 07/29/2018 02/01/2019 Fracture of L1 vertebra 06/02/2014 02/02/20 19 Sleep apnea 04/15/2010 02/01/2019 documented as of this encounter (statuses as of 11/20/2021) [facility]2019 History of Past illness Narrative* Problem Noted Date Resolved Date Epigastric pain 08/25/2018 11/24/2018 Shingles rash 07/29/2018 02/01/2019 Last Assessment & Plan: Assessment: Linear rash to left flank that wraps around under left breast Does not cross midline PLAN: Start Acyclovir Start Lidocaine cream PRN Increase Gabapentin to 200mg TID Tylenol q8h for comfort Contact/droplet precautions AM labs Herpes zoster lesion 07/29/2018 02/01/2019 Fracture of L1 vertebra 06/02/2014 02/02/20 19 Sleep apnea 04/15/2010 02/01/2019 documented as of this encounter (statuses as of 11/21/2021) [facility]2019 History of Past illness Narrative* Problem Noted Date Resolved Date Epigastric pain 08/25/2018 11/24/2018 Shingles rash 07/29/2018 02/01/2019 Last Assessment & Plan: Assessment: Linear rash to left flank that wraps around under left breast Does not cross midline PLAN: Start Acyclovir Start Lidocaine cream PRN Increase Gabapentin to 200mg TID Tylenol q8h for comfort Contact/droplet precautions AM labs Herpes zoster lesion 07/29/2018 02/01/2019 Fracture of L1 vertebra 06/02/2014 02/02/20 19 Sleep apnea 04/15/2010 02/01/2019 documented as of this encounter (statuses as of 11/28/2021) [facility] History of Past illness Narrative* Problem Noted Date Resolved Date Epigastric pain 08/25/2018 11/24/2018 Shingles rash 07/29/2018 02/01/2019 Last Assessment & Plan: Assessment: Linear rash to left flank that wraps around under left breast Does not cross midline PLAN: Start Acyclovir Start Lidocaine cream PRN Increase Gabapentin to 200mg TID Tylenol q8h for comfort Contact/droplet precautions AM labs Herpes zoster lesion 07/29/2018 02/01/2019 Fracture of L1 vertebra 06/02/2014 02/02/20 19 Sleep apnea 04/15/2010 02/01/2019 documented as of this encounter (statuses as of 12/02/2021) [facility] History of Past illness Narrative* Problem Noted Date Resolved Date Epigastric pain 08/25/2018 11/24/2018 Shingles rash 07/29/2018 02/01/2019 Last Assessment & Plan: Assessment: Linear rash to left flank that wraps around under left breast Does not cross midline PLAN: Start Acyclovir Start Lidocaine cream PRN Increase Gabapentin to 200mg TID Tylenol q8h for comfort Contact/droplet precautions AM labs Herpes zoster lesion 07/29/2018 02/01/2019 Fracture of L1 vertebra 06/02/2014 02/02/20 19 Sleep apnea 04/15/2010 02/01/2019 documented as of this encounter (statuses as of 12/04/2021) [facility] History of Past illness Narrative* Problem Noted Date Resolved Date Epigastric pain 08/25/2018 11/24/2018 Shingles rash 07/29/2018 02/01/2019 Last Assessment & Plan: Assessment: Linear rash to left flank that wraps around under left breast Does not cross midline PLAN: Start Acyclovir Start Lidocaine cream PRN Increase Gabapentin to 200mg TID Tylenol q8h for comfort Contact/droplet precautions AM labs Herpes zoster lesion 07/29/2018 02/01/2019 Fracture of L1 vertebra 06/02/2014 02/02/20 19 Sleep apnea 04/15/2010 02/01/2019 documented as of this encounter (statuses as of 12/05/2021) [facility] History of Past illness Narrative* Problem Noted Date Resolved Date Epigastric pain 08/25/2018 11/24/2018 Shingles rash 07/29/2018 02/01/2019 Last Assessment & Plan: Assessment: Linear rash to left flank that wraps around under left breast Does not cross midline PLAN: Start Acyclovir Start Lidocaine cream PRN Increase Gabapentin to 200mg TID Tylenol q8h for comfort Contact/droplet precautions AM labs Herpes zoster lesion 07/29/2018 02/01/2019 Fracture of L1 vertebra 06/02/2014 02/02/20 19 Sleep apnea 04/15/2010 02/01/2019 documented as of this encounter (statuses as of 12/13/2021) [facility] History of Past illness Narrative* Problem Noted Date Resolved Date Epigastric pain 08/25/2018 11/24/2018 Shingles rash 07/29/2018 02/01/2019 Last Assessment & Plan: Assessment: Linear rash to left flank that wraps around under left breast Does not cross midline PLAN: Start Acyclovir Start Lidocaine cream PRN Increase Gabapentin to 200mg TID Tylenol q8h for comfort Contact/droplet precautions AM labs Herpes zoster lesion 07/29/2018 02/01/2019 Fracture of L1 vertebra 06/02/2014 02/02/20 19 Sleep apnea 04/15/2010 02/01/2019 documented as of this encounter (statuses as of 12/19/2021) [facility] History of Past illness Narrative* Problem Noted Date Resolved Date Epigastric pain 08/25/2018 11/24/2018 Shingles rash 07/29/2018 02/01/2019 Last Assessment & Plan: Assessment: Linear rash to left flank that wraps around under left breast Does not cross midline PLAN: Start Acyclovir Start Lidocaine cream PRN Increase Gabapentin to 200mg TID Tylenol q8h for comfort Contact/droplet precautions AM labs Herpes zoster lesion 07/29/2018 02/01/2019 Fracture of L1 vertebra 06/02/2014 02/02/20 19 Sleep apnea 04/15/2010 02/01/2019 documented as of this encounter (statuses as of 03/21/2022) [facility] History of Past illness Narrative* Problem Noted Date Resolved Date Epigastric pain 08/25/2018 11/24/2018 Shingles rash 07/29/2018 02/01/2019 Last Assessment & Plan: Assessment: Linear rash to left flank that wraps around under left breast Does not cross midline PLAN: Start Acyclovir Start Lidocaine cream PRN Increase Gabapentin to 200mg TID Tylenol q8h for comfort Contact/droplet precautions AM labs Herpes zoster lesion 07/29/2018 02/01/2019 Fracture of L1 vertebra 06/02/2014 02/02/20 19 Sleep apnea 04/15/2010 02/01/2019 documented as of this encounter (statuses as of 03/26/2022) [facility] History of Past illness Narrative* Problem Noted Date Resolved Date Epigastric pain 08/25/2018 11/24/2018 Shingles rash 07/29/2018 02/01/2019 Last Assessment & Plan: Assessment: Linear rash to left flank that wraps around under left breast Does not cross midline PLAN: Start Acyclovir Start Lidocaine cream PRN Increase Gabapentin to 200mg TID Tylenol q8h for comfort Contact/droplet precautions AM labs Herpes zoster lesion 07/29/2018 02/01/2019 Fracture of L1 vertebra 06/02/2014 02/02/20 19 Sleep apnea 04/15/2010 02/01/2019 documented as of this encounter (statuses as of 04/04/2022) [facility] History of Past illness Narrative* Problem Noted Date Resolved Date Epigastric pain 08/25/2018 11/24/2018 Shingles rash 07/29/2018 02/01/2019 Last Assessment & Plan: Assessment: Linear rash to left flank that wraps around under left breast Does not cross midline PLAN: Start Acyclovir Start Lidocaine cream PRN Increase Gabapentin to 200mg TID Tylenol q8h for comfort Contact/droplet precautions AM labs Herpes zoster lesion 07/29/2018 02/01/2019 Fracture of L1 vertebra 06/02/2014 02/02/20 19 Sleep apnea 04/15/2010 02/01/2019 documented as of this encounter (statuses as of 04/09/2022) [facility] History of Past illness Narrative* Problem Noted Date Resolved Date Epigastric pain 08/25/2018 11/24/2018 Shingles rash 07/29/2018 02/01/2019 Last Assessment & Plan: Assessment: Linear rash to left flank that wraps around under left breast Does not cross midline PLAN: Start Acyclovir Start Lidocaine cream PRN Increase Gabapentin to 200mg TID Tylenol q8h for comfort Contact/droplet precautions AM labs Herpes zoster lesion 07/29/2018 02/01/2019 Fracture of L1 vertebra 06/02/2014 02/02/20 19 Sleep apnea 04/15/2010 02/01/2019 documented as of this encounter (statuses as of 06/11/2022) [facility] History of Past illness Narrative* Problem Noted Date Resolved Date Epigastric pain 08/25/2018 11/24/2018 Shingles rash 07/29/2018 02/01/2019 Last Assessment & Plan: Assessment: Linear rash to left flank that wraps around under left breast Does not cross midline PLAN: Start Acyclovir Start Lidocaine cream PRN Increase Gabapentin to 200mg TID Tylenol q8h for comfort Contact/droplet precautions AM labs Herpes zoster lesion 07/29/2018 02/01/2019 Fracture of L1 vertebra 06/02/2014 02/02/20 19 Sleep apnea 04/15/2010 02/01/2019 documented as of this encounter (statuses as of 06/15/2022) [facility] History of Past illness Narrative* Problem Noted Date Resolved Date Epigastric pain 08/25/2018 11/24/2018 Shingles rash 07/29/2018 02/01/2019 Last Assessment & Plan: Assessment: Linear rash to left flank that wraps around under left breast Does not cross midline PLAN: Start Acyclovir Start Lidocaine cream PRN Increase Gabapentin to 200mg TID Tylenol q8h for comfort Contact/droplet precautions AM labs Herpes zoster lesion 07/29/2018 02/01/2019 Fracture of L1 vertebra 06/02/2014 02/02/20 19 Sleep apnea 04/15/2010 02/01/2019 documented as of this encounter (statuses as of 07/14/2022) [facility] History of Past illness Narrative* Problem Noted Date Resolved Date Epigastric pain 08/25/2018 11/24/2018 Shingles rash 07/29/2018 02/01/2019 Last Assessment & Plan: Assessment: Linear rash to left flank that wraps around under left breast Does not cross midline PLAN: Start Acyclovir Start Lidocaine cream PRN Increase Gabapentin to 200mg TID Tylenol q8h for comfort Contact/droplet precautions AM labs Herpes zoster lesion 07/29/2018 02/01/2019 Fracture of L1 vertebra 06/02/2014 02/02/20 19 Sleep apnea 04/15/2010 02/01/2019 documented as of this encounter (statuses as of 08/07/2022) [facility] History of Past illness Narrative* Problem Noted Date Resolved Date Epigastric pain 08/25/2018 11/24/2018 Shingles rash 07/29/2018 02/01/2019 Last Assessment & Plan: Assessment: Linear rash to left flank that wraps around under left breast Does not cross midline PLAN: Start Acyclovir Start Lidocaine cream PRN Increase Gabapentin to 200mg TID Tylenol q8h for comfort Contact/droplet precautions AM labs Herpes zoster lesion 07/29/2018 02/01/2019 Fracture of L1 vertebra 06/02/2014 02/02/20 19 Sleep apnea 04/15/2010 02/01/2019 documented as of this encounter (statuses as of 09/17/2022) [facility] History of Past illness Narrative* Problem Noted Date Resolved Date Epigastric pain 08/25/2018 11/24/2018 Shingles rash 07/29/2018 02/01/2019 Last Assessment & Plan: Assessment: Linear rash to left flank that wraps around under left breast Does not cross midline PLAN: Start Acyclovir Start Lidocaine cream PRN Increase Gabapentin to 200mg TID Tylenol q8h for comfort Contact/droplet precautions AM labs Herpes zoster lesion 07/29/2018 02/01/2019 Fracture of L1 vertebra 06/02/2014 02/02/20 19 Sleep apnea 04/15/2010 02/01/2019 documented as of this encounter (statuses as of 09/26/2022) [facility] History of Past illness Narrative* Problem Noted Date Resolved Date Epigastric pain 08/25/2018 11/24/2018 Shingles rash 07/29/2018 02/01/2019 Last Assessment & Plan: Assessment: Linear rash to left flank that wraps around under left breast Does not cross midline PLAN: Start Acyclovir Start Lidocaine cream PRN Increase Gabapentin to 200mg TID Tylenol q8h for comfort Contact/droplet precautions AM labs Herpes zoster lesion 07/29/2018 02/01/2019 Fracture of L1 vertebra 06/02/2014 02/02/20 19 Sleep apnea 04/15/2010 02/01/2019 documented as of this encounter (statuses as of 09/30/2022) [facility] History of Past illness Narrative* Problem Noted Date Resolved Date Epigastric pain 08/25/2018 11/24/2018 Shingles rash 07/29/2018 02/01/2019 Last Assessment & Plan: Assessment: Linear rash to left flank that wraps around under left breast Does not cross midline PLAN: Start Acyclovir Start Lidocaine cream PRN Increase Gabapentin to 200mg TID Tylenol q8h for comfort Contact/droplet precautions AM labs Herpes zoster lesion 07/29/2018 02/01/2019 Fracture of L1 vertebra 06/02/2014 02/02/20 Sleep apnea 04/15/2010 02/01/2019 documented as of this encounter (statuses as of 12/09/2022) [facility] History of Past illness Narrative* Problem Noted Date Diagnosed Date Resolved Date Epigastric pain 08/25/2018 11/24/2018 Shingles rash 07/29/2018 02/01/2019 Last Assessment & Plan: Assessment: Linear rash to left flank that wraps around under left breast Does not cross midline PLAN: Start Acyclovir Start Lidocaine cream PRN Increase Gabapentin to 200mg TID Tylenol q8h for comfort Contact/droplet precautions AM labs Herpes zoster lesion 07/29/2018 019 Fracture of L1 vertebra 06/02/201409/2018 Sleep apnea 04/15/2010 02/01/2019 documented as of this encounter (statuses as of 03/10/2023) [facility] History of Past illness Narrative* Problem Noted Date Diagnosed Date Resolved Date Epigastric pain 08/25/2018 11/24/2018 Shingles rash 07/29/2018 02/01/2019 Last Assessment & Plan: Assessment: Linear rash to left flank that wraps around under left breast Does not cross midline PLAN: Start Acyclovir Start Lidocaine cream PRN Increase Gabapentin to 200mg TID Tylenol q8h for comfort Contact/droplet precautions AM labs Herpes zoster lesion 07/29/2018 019 Fracture of L1 vertebra 06/02/201409/2018 Sleep apnea 04/15/2010 02/01/2019 documented as of this encounter (statuses as of 03/13/2023) [facility] History of Past illness Narrative* Problem Noted Date Diagnosed Date Resolved Date Epigastric pain 08/25/2018 11/24/2018 Shingles rash 07/29/2018 02/01/2019 Last Assessment & Plan: Assessment: Linear rash to left flank that wraps around under left breast Does not cross midline PLAN: Start Acyclovir Start Lidocaine cream PRN Increase Gabapentin to 200mg TID Tylenol q8h for comfort Contact/droplet precautions AM labs Herpes zoster lesion 07/29/2018 019 Fracture of L1 vertebra 06/02/201409/2018 Sleep apnea 04/15/2010 02/01/2019 documented as of this encounter (statuses as of 03/24/2023) [facility] History of Past illness Narrative* Problem Noted Date Diagnosed Date Resolved Date Epigastric pain 08/25/2018 11/24/2018 Shingles rash 07/29/2018 02/01/2019 Last Assessment & Plan: Assessment: Linear rash to left flank that wraps around under left breast Does not cross midline PLAN: Start Acyclovir Start Lidocaine cream PRN Increase Gabapentin to 200mg TID Tylenol q8h for comfort Contact/droplet precautions AM labs Herpes zoster lesion 07/29/2018 019 Fracture of L1 vertebra 06/02/201409/2018 Sleep apnea 04/15/2010 02/01/2019 documented as of this encounter (statuses as of 04/04/2023) [facility] History of Past illness Narrative* Problem Noted Date Diagnosed Date Resolved Date Epigastric pain 08/25/2018 11/24/2018 Shingles rash 07/29/2018 02/01/2019 Last Assessment & Plan: Assessment: Linear rash to left flank that wraps around under left breast Does not cross midline PLAN: Start Acyclovir Start Lidocaine cream PRN Increase Gabapentin to 200mg TID Tylenol q8h for comfort Contact/droplet precautions AM labs Herpes zoster lesion 07/29/2018 019 Fracture of L1 vertebra 06/02/201409/2018 Sleep apnea 04/15/2010 02/01/2019 documented as of this encounter (statuses as of 04/09/2023) [facility] History of Past illness Narrative* Problem Noted Date Diagnosed Date Resolved Date Epigastric pain 08/25/2018 11/24/2018 Shingles rash 07/29/2018 02/01/2019 Last Assessment & Plan: Assessment: Linear rash to left flank that wraps around under left breast Does not cross midline PLAN: Start Acyclovir Start Lidocaine cream PRN Increase Gabapentin to 200mg TID Tylenol q8h for comfort Contact/droplet precautions AM labs Herpes zoster lesion 07/29/2018 019 Fracture of L1 vertebra 06/02/201409/2018 Sleep apnea 04/15/2010 02/01/2019 documented as of this encounter (statuses as of 04/09/2023) [facility] History of Past illness Narrative* Problem Noted Date Diagnosed Date Resolved Date Epigastric pain 08/25/2018 11/24/2018 Shingles rash 07/29/2018 02/01/2019 Last Assessment & Plan: Assessment: Linear rash to left flank that wraps around under left breast Does not cross midline PLAN: Start Acyclovir Start Lidocaine cream PRN Increase Gabapentin to 200mg TID Tylenol q8h for comfort Contact/droplet precautions AM labs Herpes zoster lesion 07/29/2018 019 Fracture of L1 vertebra 06/02/201409/2018 Sleep apnea 04/15/2010 02/01/2019 documented as of this encounter (statuses as of 04/10/2023) [facility] History of Past illness Narrative* Problem Noted Date Diagnosed Date Resolved Date Epigastric pain 08/25/2018 11/24/2018 Shingles rash 07/29/2018 02/01/2019 Last Assessment & Plan: Assessment: Linear rash to left flank that wraps around under left breast Does not cross midline PLAN: Start Acyclovir Start Lidocaine cream PRN Increase Gabapentin to 200mg TID Tylenol q8h for comfort Contact/droplet precautions AM labs Herpes zoster lesion 07/29/2018 019 Fracture of L1 vertebra 06/02/201409/2018 Sleep apnea 04/15/2010 02/01/2019 documented as of this encounter (statuses as of 04/24/2023) [facility] History of Past illness Narrative* Problem Noted Date Diagnosed Date Resolved Date Epigastric pain 08/25/2018 11/24/2018 Shingles rash 07/29/2018 02/01/2019 Last Assessment & Plan: Assessment: Linear rash to left flank that wraps around under left breast Does not cross midline PLAN: Start Acyclovir Start Lidocaine cream PRN Increase Gabapentin to 200mg TID Tylenol q8h for comfort Contact/droplet precautions AM labs Herpes zoster lesion 07/29/2018 019 Fracture of L1 vertebra 06/02/201409/2018 Sleep apnea 04/15/2010 02/01/2019 documented as of this encounter (statuses as of 05/09/2023) [facility] History of Past illness Narrative* Problem Noted Date Diagnosed Date Resolved Date Epigastric pain 08/25/2018 11/24/2018 Shingles rash 07/29/2018 02/01/2019 Last Assessment & Plan: Assessment: Linear rash to left flank that wraps around under left breast Does not cross midline PLAN: Start Acyclovir Start Lidocaine cream PRN Increase Gabapentin to 200mg TID Tylenol q8h for comfort Contact/droplet precautions AM labs Herpes zoster lesion 07/29/2018 019 Fracture of L1 vertebra 06/02/201409/2018 Sleep apnea 04/15/2010 02/01/2019 documented as of this encounter (statuses as of 05/27/2023) [facility] History of Past illness Narrative* Problem Noted Date Diagnosed Date Resolved Date Epigastric pain 08/25/2018 11/24/2018 Shingles rash 07/29/2018 02/01/2019 Last Assessment & Plan: Assessment: Linear rash to left flank that wraps around under left breast Does not cross midline PLAN: Start Acyclovir Start Lidocaine cream PRN Increase Gabapentin to 200mg TID Tylenol q8h for comfort Contact/droplet precautions AM labs Herpes zoster lesion 07/29/2018 019 Fracture of L1 vertebra 06/02/201409/2018 Sleep apnea 04/15/2010 02/01/2019 documented as of this encounter (statuses as of 07/14/2023) [facility] Diagnosis Poliomyelitis osteopathy of multiple sites (HCC)- Primary 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, multiple sites Acute pain of right knee 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, Class III, 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) Morbid obesity Obstructive sleep apnea on CPAP Obstructive sleep apnea (adult) (pediatric) History of iron deficiency anemia Personal history of diseases of blood and blood-forming organs Glaucoma of left eye, unspecified glaucoma type Screening for lipid disorders [facility] Diagnosis COVID-19- Primary [facility] Diagnosis Neck pain, chronic Cervicalgia [facility] this [facility] 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 Poliomyelitis osteopathy of multiple sites (HCC) 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, multiple sites Late effects of acute poliomyelitis Obesity, Class III, 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) Morbid obesity 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 Obstructive sleep apnea on CPAP Obstructive sleep apnea (adult) (pediatric) OAB (overactive bladder) Hypertonicity of bladder Gastroesophageal reflux disease, unspecified whether esophagitis present [facility] Diagnosis Obesity, Class III, 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) Morbid obesity [facility] 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 [facility] 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 [facility] Diagnosis Dysphagia, unspecified type- Primary 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 [facility] 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, multiple sites [facility] Diagnosis Late effects of acute poliomyelitis- Primary Obstructive sleep apnea on CPAP Obstructive sleep apnea (adult) (pediatric) Gastroesophageal reflux disease, unspecified whether esophagitis present Neck pain, chronic Cervicalgia OAB (overactive bladder) Hypertonicity of bladder Rosacea Class 3 severe obesity with body mass index (BMI) of 40.0 to 44.9 in adult, unspecified obesity type, unspecified whether serious comorbidity present ([facility]) Glaucoma, unspecified glaucoma type, unspecified laterality Restless legs syndrome (RLS) [facility] Diagnosis Osteopenia, unspecified location- Primary Obesity, Class III, BMI 40-49.9 (morbid obesity) ([facility]) Morbid obesity Vitamin D deficiency Unspecified vitamin D deficiency Hyperglycemia Other abnormal glucose Hyperlipidemia, mixed Mixed hyperlipidemia [facility]* Diagnosis Hyperglycemia, unspecified- Primary Mixed hyperlipidemia Vitamin D deficiency, unspecified Other specified disorders of bone density and structure, unspecified site [facility] Diagnosis Unable to ambulate Difficulty in walking At risk for falls Personal history of fall Herpes zoster with complication Herpes zoster with unspecified complication Gastroesophageal reflux disease without esophagitis Esophageal reflux Generalized weakness Other malaise and fatigue Herpes zoster lesion Late effects of acute poliomyelitis Generalized weakness Other malaise and fatigue Late effects of acute poliomyelitis Acute left-sided low back pain with left-sided sciatica- Primary documented in this encounter [facility] note* Diagnosis Unable to ambulate Difficulty in walking At risk for falls Personal history of fall Herpes zoster with complication Herpes zoster with unspecified complication Gastroesophageal reflux disease without esophagitis Esophageal reflux Generalized weakness Other malaise and fatigue Herpes zoster lesion Late effects of acute poliomyelitis Generalized weakness Other malaise and fatigue Late effects of acute poliomyelitis Medicare annual wellness visit, subsequent- Primary Routine general medical examination at a health care facility Obesity, Class III, BMI 40-49.9 (morbid obesity) ([facility]) Morbid obesity Poliomyelitis osteopathy of multiple sites ([facility]) ([facility]) 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, 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 Hyperlipidemia, mixed Mixed hyperlipidemia Hyperglycemia Other abnormal glucose Vitamin D deficiency Unspecified vitamin D deficiency Essential hypertension Unspecified essential hypertension Primary osteoarthritis involving multiple joints Abnormality of gait Falling episodes Lack of coordination [facility] Diagnosis Unable to ambulate Difficulty in walking At risk for falls Personal history of fall Herpes zoster with complication Herpes zoster with unspecified complication Gastroesophageal reflux disease without esophagitis Esophageal reflux Generalized weakness Other malaise and fatigue Herpes zoster lesion Late effects of acute poliomyelitis Generalized weakness Other malaise and fatigue Late effects of acute poliomyelitis Falling episodes- Primary Lack of coordination Acute left-sided low back pain with left-sided sciatica Fall from motorized wheelchair, initial encounter 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 Neck pain, chronic Cervicalgia Chronic hand pain, unspecified laterality documented in this encounter [facility] note* Diagnosis Unable to ambulate Difficulty in walking At risk for falls Personal history of fall Herpes zoster with complication Herpes zoster with unspecified complication Gastroesophageal reflux disease without esophagitis Esophageal reflux Generalized weakness Other malaise and fatigue Herpes zoster lesion Late effects of acute poliomyelitis Generalized weakness Other malaise and fatigue Late effects of acute poliomyelitis Acute left-sided low back pain, unspecified whether sciatica present- Primary Left hip pain Pain in joint, pelvic region and thigh documented in this encounter [facility] note* Diagnosis Unable to ambulate Difficulty in walking At risk for falls Personal history of fall Herpes zoster with complication Herpes zoster with unspecified complication Gastroesophageal reflux disease without esophagitis Esophageal reflux Generalized weakness Other malaise and fatigue Herpes zoster lesion Late effects of acute poliomyelitis Generalized weakness Other malaise and fatigue Late effects of acute poliomyelitis Post-polio muscle weakness- Primary Late effects of acute poliomyelitis Muscle strain of lower leg, unspecified laterality, initial encounter Falls frequently Personal history of fall documented in this [facility] Diagnosis Unable to ambulate Difficulty in walking At risk for falls Personal history of fall Herpes zoster with complication Herpes zoster with unspecified complication Gastroesophageal reflux disease without esophagitis Esophageal reflux Generalized weakness Other malaise and fatigue Herpes zoster lesion Late effects of acute poliomyelitis Generalized weakness Other malaise and fatigue Late effects of acute poliomyelitis Acute left-sided low back pain with left-sided sciatica- Primary [facility] Diagnosis Unable to ambulate Difficulty in walking At risk for falls Personal history of fall Herpes zoster with complication Herpes zoster with unspecified complication Gastroesophageal reflux disease without esophagitis Esophageal reflux Generalized weakness Other malaise and fatigue Herpes zoster lesion Late effects of acute poliomyelitis Generalized weakness Other malaise and fatigue Late effects of acute poliomyelitis Back pain, unspecified back location, unspecified back pain laterality, unspecified chronicity- Primary [facility] Diagnosis Hyperglycemia, unspecified- Primary Mixed hyperlipidemia [facility] Diagnosis Unable to ambulate Difficulty in walking At risk for falls Personal history of fall Herpes zoster with complication Herpes zoster with unspecified complication Gastroesophageal reflux disease without esophagitis Esophageal reflux Generalized weakness Other malaise and fatigue Herpes zoster lesion 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 Urinary tract infection without hematuria, site unspecified- Primary Frequent urination Urinary frequency Burning with urination Dysuria Compression fracture of thoracic vertebra with routine healing, unspecified thoracic vertebral level, subsequent encounter Screening for genitourinary condition Screening for other and unspecified genitourinary condition documented in this encounter [facility] noteNo assessment information availableBlTerre Haute [facility] Work Phone: Reason for referral (narrative)* Diagnostic Procedure Only (Routine) - Pending Review Specialty Diagnoses / Procedures Referred By Robeac t Referred To Contact XR IMAGING Diagnoses Acute pain of right knee Procedures XR KNEE LIMITED 2V AP/LAT RIGHT RADIOLOGIC EXAMINATION KNEE 1/2 VIEWS Sahra Guy MD [address] [address] Xr Imaging Referral ID Status Reason Start Date Expiration Date Visits Requested Visits Authorized [id number] Pending Review Auto-Generat ed Referral 10/29/2021 11/28/2022 1 1 * Physical Therapy (Routine) - Authorized Specialty Diagnoses / Procedures Referred By Contac t Referred To Contact [facility] Diagnoses Poliomyelitis osteopathy of multiple sites (HCC) Acute pain of right knee Post-polio syndrome Procedures CONSULT TO PHYSICAL THERAPY PHYSICAL THERAPY EVALUATION HIGH COMPLEX 45 MINS Sahra Guy MD [address] [place] [address] [facility] [address] [address] Referral ID Status Reason Start Date Expiration Date Visits Requested Visits Authorized [id number] Authorized PCP Requested Referral Auto-Generate d Referral 10/29/2021 10/29/2022 99 99 [facility] for referral (narrative)No reason for referral information availableCommunity [facility] Work Phone: Summary Purpose Family History No Family History Records FoundNo Family History Records FoundNo Family History Records FoundNo Family History Records FoundNo Family History Records FoundNo Family History Records FoundNo Family History Records Found Advance Directives No Advanced Directives Records FoundDocuments on File Type Date Recorded Patient Audiometric Technician Expl anation Advance Directive(s) Advance Directive(s) 09/07/2018 8:30 AM Advance Directive(s) 08/02/2018 10:02 AM Advance Directive(s) 07/29/2018 11:50 AM Documents on File Type Date Recorded Patient Audiometric Technician Expl anation Advance Directive(s) Advance Directive(s) 09/07/2018 8:30 AM Advance Directive(s) 08/02/2018 10:02 AM Advance Directive(s) 07/29/2018 11:50 AM Documents on File Type Date Recorded Patient Audiometric Technician Expl anation Advance Directive(s) 08/02/2018 10:02 AM Documents on File Type Date Recorded Patient Audiometric Technician Expl anation Advance Directive(s) 08/02/2018 10:02 AM Date Activated Date Inactivated Comments 12/12/2024 6:18 PM 12/19/2024 8:25 PM Question Answer Comments Full Code Order Discussed With: Patient Reason for Referral Specialty Diagnoses / Procedures Referred By Lia hennessy Referred To Contact 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) Procedures CONSULT TO NEUROMUSCULAR MEDIC OFFICE/OUTPATIENT [facility] MDM 60-74 MINUTES Sahra Guy MD [address] [place] [address] [place] [address] Referral ID Status Reason Start Date Expiration Date Visits Requested Visits Authorized [id number] Authorized PCP Requested Referral 03/10/2023 03/09/2024 1 1 Specialty Diagnoses / Procedures Referred By Lia hennessy Referred To Contact [facility] 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) Procedures CONSULT TO PHYSICAL THERAPY PHYSICAL THERAPY EVALUATION HIGH COMPLEX 45 MINS Sahra Guy MD [address] [place] [address] [facility] [address] [address] Referral ID Status Reason Start Date Expiration Date Visits Requested Visits Authorized [id number] Authorized PCP Requested Referral Auto-Generate d Referral 03/10/2023 03/09/2024 99 99 Specialty Diagnoses / Procedures Referred By Contac t Referred To Contact [facility] Diagnoses Post-polio syndrome Procedures CONSULT TO SPEECH THERAPY OFFICE/OUTPATIENT NEW HIGH MDM 60-74 MINUTES Ken Trent MD [address] [place], [place] [id number] [facility] [address] [address] Referral ID Status Reason Start Date Expiration Date Visits Requested Visits Authorized [id number] Authorized Auto-Generat ed Referral 04/03/2023 04/02/2024 99 99 Specialty Diagnoses / Procedures Referred By Contac t Referred To Contact [facility] Diagnoses Post-polio syndrome Procedures CONSULT TO PHYSICAL THERAPY PHYSICAL THERAPY EVALUATION HIGH COMPLEX 45 MINS Ken Trent MD [address] [place] [address] [facility] [address] [address] Referral ID Status Reason Start Date Expiration Date Visits Requested Visits Authorized [id number] Authorized PCP Requested Referral Auto-Generate d Referral 04/09/2023 04/08/2024 99 99 Chief Complaint and Reason for Visit Chief Complaint Admit Date LAB WORK December 20, 2024 5:00a m ADMISSION EXAM December 20, 2024 2:30p m LAB WORK December 27, 2024 5:00a m LAB WORK December 28, 2024 10:30 am LAB WORK January 03, 2025 5:00a m LAB WORK January 10, 2025 5:00 am LAB WORK January 17, 2025 5:00 am LAB WORK January 24, 2025 5:00 am Chief Complaint Admit Date LAB WORK December 20, 2024 5:00a m ADMISSION EXAM December 20, 2024 2:30p m ADMISSION EXAM December 22, 2024 3:00p m LAB WORK December 27, 2024 5:00a m LAB WORK December 28, 2024 10:30 am LAB WORK January 03, 2025 5:00a m LAB WORK January 10, 2025 5:00 am LAB WORK January 17, 2025 5:00 am LAB WORK January 24, 2025 5:00 am Chief Complaint Admit Date LAB WORK December 20, 2024 5:00a m ADMISSION EXAM December 20, 2024 2:30p m ADMISSION EXAM December 22, 2024 3:00p m LAB WORK December 27, 2024 5:00a m LAB WORK December 28, 2024 10:30 am NEW CONCERN December 28, 2024 6:00p m LAB WORK January 03, 2025 5:00a m LAB WORK January 10, 2025 5:00 am LAB WORK January 17, 2025 5:00 am LAB WORK January 24, 2025 5:00 am Chief Complaint Admit Date LAB WORK December 20, 2024 5:00a m ADMISSION EXAM December 20, 2024 2:30p m ADMISSION EXAM December 22, 2024 3:00p m LAB WORK December 27, 2024 5:00a m LAB WORK December 28, 2024 10:30 am NEW CONCERN December 28, 2024 6:00p m LAB WORK January 03, 2025 5:00a m NEW CONCERN January 09, 2025 5:45p m LAB WORK January 10, 2025 5:00 am LAB WORK January 17, 2025 5:00 am LAB WORK January 24, 2025 5:00 am LAB WORK January 31, 2025 5:00a m Chief Complaint Admit Date LAB WORK December 20, 2024 5:00a m ADMISSION EXAM December 20, 2024 2:30p m ADMISSION EXAM December 22, 2024 3:00p m LAB WORK December 27, 2024 5:00a m LAB WORK December 28, 2024 10:30 am NEW CONCERN December 28, 2024 6:00p m LAB WORK January 03, 2025 5:00a m NEW CONCERN January 09, 2025 5:45p m LAB WORK January 10, 2025 5:00 am FU EXAM January 10, 2025 1:00 pm LAB WORK January 17, 2025 5:00 am LAB WORK January 24, 2025 5:00 am LAB WORK January 31, 2025 5:00a m Chief Complaint Admit Date LAB WORK December 20, 2024 5:00a m ADMISSION EXAM December 20, 2024 2:30p m ADMISSION EXAM December 22, 2024 3:00p m LAB WORK December 27, 2024 5:00a m LAB WORK December 28, 2024 10:30 am NEW CONCERN December 28, 2024 6:00p m LAB WORK January 03, 2025 5:00a m NEW CONCERN January 09, 2025 5:45p m LAB WORK January 10, 2025 5:00 am FU EXAM January 10, 2025 1:00 pm LAB WORK January 17, 2025 5:00 am NEW CONCERN January 19, 2025 4:45 pm LAB WORK January 24, 2025 5:00 am LAB WORK January 31, 2025 5:00a m Chief Complaint Admit Date LAB WORK December 20, 2024 5:00a m ADMISSION EXAM December 20, 2024 2:30p m ADMISSION EXAM December 22, 2024 3:00p m LAB WORK December 27, 2024 5:00a m LAB WORK December 28, 2024 10:30 am NEW CONCERN December 28, 2024 6:00p m LAB WORK January 03, 2025 5:00a m NEW CONCERN January 09, 2025 5:45p m LAB WORK January 10, 2025 5:00 am FU EXAM January 10, 2025 1:00 pm LAB WORK January 17, 2025 5:00 am NEW CONCERN January 19, 2025 4:45 pm LAB WORK January 24, 2025 5:00 am NEW CONCERN January 24, 2025 1:30 pm LAB WORK January 31, 2025 5:00a m Chief Complaint Admit Date LAB WORK December 20, 2024 5:00a m ADMISSION EXAM December 20, 2024 2:30p m ADMISSION EXAM December 22, 2024 3:00p m LAB WORK December 27, 2024 5:00a m LAB WORK December 28, 2024 10:30 am NEW CONCERN December 28, 2024 6:00p m LAB WORK January 03, 2025 5:00a m NEW CONCERN January 09, 2025 5:45p m LAB WORK January 10, 2025 5:00 am FU EXAM January 10, 2025 1:00 pm LAB WORK January 17, 2025 5:00 am NEW CONCERN January 19, 2025 4:45 pm LAB WORK January 24, 2025 5:00 am NEW CONCERN January 24, 2025 1:30 pm LAB WORK January 31, 2025 5:00a m LAB WORK February 07, 2025 4:00a m LAB WORK February 09, 2025 5:00 am LAB WORK February 14, 2025 4:45 am Monthly Exam February 14, 2025 4:27 pm LAB WORK February 21, 2025 5:00 am LAB WORK February 28, 2025 6:40 am Additional Source Comments INFORMATION SOURCE (unrecogn ized section and content) DATE CREATED AUTHOR 08/06/2018 [facility] DATE CREATED AUTHOR AUTHOR'S ORGANIZ ATION 09/21/2018 [facility] DATE CREATED AUTHOR AUTHOR'S ORGANIZ ATION 09/14/2024 [facility] DATE CREATED AUTHOR AUTHOR'S ORGANIZ ATION 12/28/2024 [facility] DATE CREATED AUTHOR AUTHOR'S ORGANIZ ATION 12/28/2024 [facility] DATE CREATED AUTHOR AUTHOR'S ORGANIZ ATION 03/17/2025 [facility] DATE CREATED AUTHOR AUTHOR'S ORGANIZ ATION 03/24/2025 [facility] Source Comments (unrecognize d section and content) In the event this informatio n is protected by the Federal Confidentiality of Alcohol and Drug Abuse Patient Records regulations: The Federal rules restrict any use of the information to criminally investigate or prosecute any alcohol or drug abuse patient.[facility] the event this information is protected by the Federal Confidentiality of Alcohol and Drug Abuse Patient Records regulations: The Federal rules restrict any use of the information to criminally investigate or prosecute any alcohol or drug abuse patient.[facility] HospitalIn the event this information is protected by the Federal Confidentiality of Alcohol and Drug Abuse Patient Records regulations: The Federal rules restrict any use of the information to criminally investigate or prosecute any alcohol or drug abuse patient.[facility] HospitalIn the event this information is protected by the Federal Confidentiality of Alcohol and Drug Abuse Patient Records regulations: The Federal rules restrict any use of the information to criminally investigate or prosecute any alcohol or drug abuse patient.[facility] HospitalIn the event this information is protected by the Federal Confidentiality of Alcohol and Drug Abuse Patient Records regulations: The Federal rules restrict any use of the information to criminally investigate or prosecute any alcohol or drug abuse patient.[facility] HospitalIn the event this information is protected by the Federal Confidentiality of Alcohol and Drug Abuse Patient Records regulations: The Federal rules restrict any use of the information to criminally investigate or prosecute any alcohol or drug abuse patient.[facility] HospitalIn the event this information is protected by the Federal Confidentiality of Alcohol and Drug Abuse Patient Records regulations: The Federal rules restrict any use of the information to criminally investigate or prosecute any alcohol or drug abuse patient.[facility] HospitalIn the event this information is protected by the Federal Confidentiality of Alcohol and Drug Abuse Patient Records regulations: The Federal rules restrict any use of the information to criminally investigate or prosecute any alcohol or drug abuse patient.[facility] HospitalIn the event this information is protected by the Federal Confidentiality of Alcohol and Drug Abuse Patient Records regulations: The Federal rules restrict any use of the information to criminally investigate or prosecute any alcohol or drug abuse patient.[facility] HospitalIn the event this information is protected by the Federal Confidentiality of Alcohol and Drug Abuse Patient Records regulations: The Federal rules restrict any use of the information to criminally investigate or prosecute any alcohol or drug abuse patient.[facility] HospitalIn the event this information is protected by the Federal Confidentiality of Alcohol and Drug Abuse Patient Records regulations: The Federal rules restrict any use of the information to criminally investigate or prosecute any alcohol or drug abuse patient.[facility] HospitalIn the event this information is protected by the Federal Confidentiality of Alcohol and Drug Abuse Patient Records regulations: The Federal rules restrict any use of the information to criminally investigate or prosecute any alcohol or drug abuse patient.[facility] HospitalIn the event this information is protected by the Federal Confidentiality of Alcohol and Drug Abuse Patient Records regulations: The Federal rules restrict any use of the information to criminally investigate or prosecute any alcohol or drug abuse patient.[facility] HospitalIn the event this information is protected by the Federal Confidentiality of Alcohol and Drug Abuse Patient Records regulations: The Federal rules restrict any use of the information to criminally investigate or prosecute any alcohol or drug abuse patient.[facility] HospitalIn the event this information is protected by the Federal Confidentiality of Alcohol and Drug Abuse Patient Records regulations: The Federal rules restrict any use of the information to criminally investigate or prosecute any alcohol or drug abuse patient.[facility] HospitalIn the event this information is protected by the Federal Confidentiality of Alcohol and Drug Abuse Patient Records regulations: The Federal rules restrict any use of the information to criminally investigate or prosecute any alcohol or drug abuse patient.[facility] HospitalIn the event this information is protected by the Federal Confidentiality of Alcohol and Drug Abuse Patient Records regulations: The Federal rules restrict any use of the information to criminally investigate or prosecute any alcohol or drug abuse patient.[facility] HospitalIn the event this information is protected by the Federal Confidentiality of Alcohol and Drug Abuse Patient Records regulations: The Federal rules restrict any use of the information to criminally investigate or prosecute any alcohol or drug abuse patient.[facility] HospitalIn the event this information is protected by the Federal Confidentiality of Alcohol and Drug Abuse Patient Records regulations: The Federal rules restrict any use of the information to criminally investigate or prosecute any alcohol or drug abuse patient.[facility] HospitalIn the event this information is protected by the Federal Confidentiality of Alcohol and Drug Abuse Patient Records regulations: The Federal rules restrict any use of the information to criminally investigate or prosecute any alcohol or drug abuse patient.[facility] HospitalIn the event this information is protected by the Federal Confidentiality of Alcohol and Drug Abuse Patient Records regulations: The Federal rules restrict any use of the information to criminally investigate or prosecute any alcohol or drug abuse patient.[facility] HospitalIn the event this information is protected by the Federal Confidentiality of Alcohol and Drug Abuse Patient Records regulations: The Federal rules restrict any use of the information to criminally investigate or prosecute any alcohol or drug abuse patient.[facility] HospitalIn the event this information is protected by the Federal Confidentiality of Alcohol and Drug Abuse Patient Records regulations: The Federal rules restrict any use of the information to criminally investigate or prosecute any alcohol or drug abuse patient.[facility] HospitalIn the event this information is protected by the Federal Confidentiality of Alcohol and Drug Abuse Patient Records regulations: The Federal rules restrict any use of the information to criminally investigate or prosecute any alcohol or drug abuse patient.[facility] HospitalIn the event this information is protected by the Federal Confidentiality of Alcohol and Drug Abuse Patient Records regulations: The Federal rules restrict any use of the information to criminally investigate or prosecute any alcohol or drug abuse patient.[facility] HospitalIn the event this information is protected by the Federal Confidentiality of Alcohol and Drug Abuse Patient Records regulations: The Federal rules restrict any use of the information to criminally investigate or prosecute any alcohol or drug abuse patient.[facility] HospitalIn the event this information is protected by the Federal Confidentiality of Alcohol and Drug Abuse Patient Records regulations: The Federal rules restrict any use of the information to criminally investigate or prosecute any alcohol or drug abuse patient.[facility] HospitalIn the event this information is protected by the Federal Confidentiality of Alcohol and Drug Abuse Patient Records regulations: The Federal rules restrict any use of the information to criminally investigate or prosecute any alcohol or drug abuse patient.[facility] HospitalIn the event this information is protected by the Federal Confidentiality of Alcohol and Drug Abuse Patient Records regulations: The Federal rules restrict any use of the information to criminally investigate or prosecute any alcohol or drug abuse patient.[facility] HospitalIn the event this information is protected by the Federal Confidentiality of Alcohol and Drug Abuse Patient Records regulations: The Federal rules restrict any use of the information to criminally investigate or prosecute any alcohol or drug abuse patient.[facility] HospitalIn the event this information is protected by the Federal Confidentiality of Alcohol and Drug Abuse Patient Records regulations: The Federal rules restrict any use of the information to criminally investigate or prosecute any alcohol or drug abuse patient.[facility] HospitalIn the event this information is protected by the Federal Confidentiality of Alcohol and Drug Abuse Patient Records regulations: The Federal rules restrict any use of the information to criminally investigate or prosecute any alcohol or drug abuse patient.[facility] HospitalIn the event this information is protected by the Federal Confidentiality of Alcohol and Drug Abuse Patient Records regulations: The Federal rules restrict any use of the information to criminally investigate or prosecute any alcohol or drug abuse patient.[facility] HospitalIn the event this information is protected by the Federal Confidentiality of Alcohol and Drug Abuse Patient Records regulations: The Federal rules restrict any use of the information to criminally investigate or prosecute any alcohol or drug abuse patient.[facility] HospitalIn the event this information is protected by the Federal Confidentiality of Alcohol and Drug Abuse Patient Records regulations: The Federal rules restrict any use of the information to criminally investigate or prosecute any alcohol or drug abuse patient.[facility] HospitalIn the event this information is protected by the Federal Confidentiality of Alcohol and Drug Abuse Patient Records regulations: The Federal rules restrict any use of the information to criminally investigate or prosecute any alcohol or drug abuse patient.[facility] HospitalIn the event this information is protected by the Federal Confidentiality of Alcohol and Drug Abuse Patient Records regulations: The Federal rules restrict any use of the information to criminally investigate or prosecute any alcohol or drug abuse patient.[facility] HospitalIn the event this information is protected by the Federal Confidentiality of Alcohol and Drug Abuse Patient Records regulations: The Federal rules restrict any use of the information to criminally investigate or prosecute any alcohol or drug abuse patient.[facility] HospitalIn the event this information is protected by the Federal Confidentiality of Alcohol and Drug Abuse Patient Records regulations: The Federal rules restrict any use of the information to criminally investigate or prosecute any alcohol or drug abuse patient.[facility] HospitalIn the event this information is protected by the Federal Confidentiality of Alcohol and Drug Abuse Patient Records regulations: The Federal rules restrict any use of the information to criminally investigate or prosecute any alcohol or drug abuse patient.[facility] HospitalIn the event this information is protected by the Federal Confidentiality of Alcohol and Drug Abuse Patient Records regulations: The Federal rules restrict any use of the information to criminally investigate or prosecute any alcohol or drug abuse patient.[facility] HospitalIn the event this information is protected by the Federal Confidentiality of Alcohol and Drug Abuse Patient Records regulations: The Federal rules restrict any use of the information to criminally investigate or prosecute any alcohol or drug abuse patient.[facility] HospitalIn the event this information is protected by the Federal Confidentiality of Alcohol and Drug Abuse Patient Records regulations: The Federal rules restrict any use of the information to criminally investigate or prosecute any alcohol or drug abuse patient.[facility] HospitalIn the event this information is protected by the Federal Confidentiality of Alcohol and Drug Abuse Patient Records regulations: The Federal rules restrict any use of the information to criminally investigate or prosecute any alcohol or drug abuse patient.[facility] HospitalIn the event this information is protected by the Federal Confidentiality of Alcohol and Drug Abuse Patient Records regulations: The Federal rules restrict any use of the information to criminally investigate or prosecute any alcohol or drug abuse patient.[facility] HospitalIn the event this information is protected by the Federal Confidentiality of Alcohol and Drug Abuse Patient Records regulations: The Federal rules restrict any use of the information to criminally investigate or prosecute any alcohol or drug abuse patient.[facility] HospitalIn the event this information is protected by the Federal Confidentiality of Alcohol and Drug Abuse Patient Records regulations: The Federal rules restrict any use of the information to criminally investigate or prosecute any alcohol or drug abuse patient.[facility] HospitalIn the event this information is protected by the Federal Confidentiality of Alcohol and Drug Abuse Patient Records regulations: The Federal rules restrict any use of the information to criminally investigate or prosecute any alcohol or drug abuse patient.[facility] HospitalIn the event this information is protected by the Federal Confidentiality of Alcohol and Drug Abuse Patient Records regulations: The Federal rules restrict any use of the information to criminally investigate or prosecute any alcohol or drug abuse patient.[facility] HospitalIn the event this information is protected by the Federal Confidentiality of Alcohol and Drug Abuse Patient Records regulations: The Federal rules restrict any use of the information to criminally investigate or prosecute any alcohol or drug abuse patient.[facility] HospitalIn the event this information is protected by the Federal Confidentiality of Alcohol and Drug Abuse Patient Records regulations: The Federal rules restrict any use of the information to criminally investigate or prosecute any alcohol or drug abuse patient.[facility] HospitalIn the event this information is protected by the Federal Confidentiality of Alcohol and Drug Abuse Patient Records regulations: The Federal rules restrict any use of the information to criminally investigate or prosecute any alcohol or drug abuse patient.[facility] HospitalIn the event this information is protected by the Federal Confidentiality of Alcohol and Drug Abuse Patient Records regulations: The Federal rules restrict any use of the information to criminally investigate or prosecute any alcohol or drug abuse patient.[facility] HospitalIn the event this information is protected by the Federal Confidentiality of Alcohol and Drug Abuse Patient Records regulations: The Federal rules restrict any use of the information to criminally investigate or prosecute any alcohol or drug abuse patient.[facility] HospitalIn the event this information is protected by the Federal Confidentiality of Alcohol and Drug Abuse Patient Records regulations: The Federal rules restrict any use of the information to criminally investigate or prosecute any alcohol or drug abuse patient.[facility] HospitalIn the event this information is protected by the Federal Confidentiality of Alcohol and Drug Abuse Patient Records regulations: The Federal rules restrict any use of the information to criminally investigate or prosecute any alcohol or drug abuse patient.[facility] HospitalIn the event this information is protected by the Federal Confidentiality of Alcohol and Drug Abuse Patient Records regulations: The Federal rules restrict any use of the information to criminally investigate or prosecute any alcohol or drug abuse patient.[facility] HospitalIn the event this information is protected by the Federal Confidentiality of Alcohol and Drug Abuse Patient Records regulations: The Federal rules restrict any use of the information to criminally investigate or prosecute any alcohol or drug abuse patient.[facility] HospitalIn the event this information is protected by the Federal Confidentiality of Alcohol and Drug Abuse Patient Records regulations: The Federal rules restrict any use of the information to criminally investigate or prosecute any alcohol or drug abuse patient.[facility] HospitalIn the event this information is protected by the Federal Confidentiality of Alcohol and Drug Abuse Patient Records regulations: The Federal rules restrict any use of the information to criminally investigate or prosecute any alcohol or drug abuse patient.[facility] HospitalIn the event this information is protected by the Federal Confidentiality of Alcohol and Drug Abuse Patient Records regulations: The Federal rules restrict any use of the information to criminally investigate or prosecute any alcohol or drug abuse patient.[facility] HospitalIn the event this information is protected by the Federal Confidentiality of Alcohol and Drug Abuse Patient Records regulations: The Federal rules restrict any use of the information to criminally investigate or prosecute any alcohol or drug abuse patient.[facility] HospitalIn the event this information is protected by the Federal Confidentiality of Alcohol and Drug Abuse Patient Records regulations: The Federal rules restrict any use of the information to criminally investigate or prosecute any alcohol or drug abuse patient.[facility] HospitalIn the event this information is protected by the Federal Confidentiality of Alcohol and Drug Abuse Patient Records regulations: The Federal rules restrict any use of the information to criminally investigate or prosecute any alcohol or drug abuse patient.[facility] HospitalIn the event this information is protected by the Federal Confidentiality of Alcohol and Drug Abuse Patient Records regulations: The Federal rules restrict any use of the information to criminally investigate or prosecute any alcohol or drug abuse patient.[facility] HospitalIn the event this information is protected by the Federal Confidentiality of Alcohol and Drug Abuse Patient Records regulations: The Federal rules restrict any use of the information to criminally investigate or prosecute any alcohol or drug abuse patient.[facility] HospitalIn the event this information is protected by the Federal Confidentiality of Alcohol and Drug Abuse Patient Records regulations: The Federal rules restrict any use of the information to criminally investigate or prosecute any alcohol or drug abuse patient.[facility] HospitalIn the event this information is protected by the Federal Confidentiality of Alcohol and Drug Abuse Patient Records regulations: The Federal rules restrict any use of the information to criminally investigate or prosecute any alcohol or drug abuse patient.[facility] HospitalIn the event this information is protected by the Federal Confidentiality of Alcohol and Drug Abuse Patient Records regulations: The Federal rules restrict any use of the information to criminally investigate or prosecute any alcohol or drug abuse patient.[facility] HospitalIn the event this information is protected by the Federal Confidentiality of Alcohol and Drug Abuse Patient Records regulations: The Federal rules restrict any use of the information to criminally investigate or prosecute any alcohol or drug abuse patient.[facility] HospitalIn the event this information is protected by the Federal Confidentiality of Alcohol and Drug Abuse Patient Records regulations: The Federal rules restrict any use of the information to criminally investigate or prosecute any alcohol or drug abuse patient.[facility] HospitalIn the event this information is protected by the Federal Confidentiality of Alcohol and Drug Abuse Patient Records regulations: The Federal rules restrict any use of the information to criminally investigate or prosecute any alcohol or drug abuse patient.[facility] HospitalIn the event this information is protected by the Federal Confidentiality of Alcohol and Drug Abuse Patient Records regulations: The Federal rules restrict any use of the information to criminally investigate or prosecute any alcohol or drug abuse patient.[facility] HospitalIn the event this information is protected by the Federal Confidentiality of Alcohol and Drug Abuse Patient Records regulations: The Federal rules restrict any use of the information to criminally investigate or prosecute any alcohol or drug abuse patient.[facility] HospitalIn the event this information is protected by the Federal Confidentiality of Alcohol and Drug Abuse Patient Records regulations: The Federal rules restrict any use of the information to criminally investigate or prosecute any alcohol or drug abuse patient.[facility] HospitalIn the event this information is protected by the Federal Confidentiality of Alcohol and Drug Abuse Patient Records regulations: The Federal rules restrict any use of the information to criminally investigate or prosecute any alcohol or drug abuse patient.[facility] HospitalIn the event this information is protected by the Federal Confidentiality of Alcohol and Drug Abuse Patient Records regulations: The Federal rules restrict any use of the information to criminally investigate or prosecute any alcohol or drug abuse patient.[facility] HospitalIn the event this information is protected by the Federal Confidentiality of Alcohol and Drug Abuse Patient Records regulations: The Federal rules restrict any use of the information to criminally investigate or prosecute any alcohol or drug abuse patient.[facility] HospitalIn the event this information is protected by the Federal Confidentiality of Alcohol and Drug Abuse Patient Records regulations: The Federal rules restrict any use of the information to criminally investigate or prosecute any alcohol or drug abuse patient.[facility] HospitalIn the event this information is protected by the Federal Confidentiality of Alcohol and Drug Abuse Patient Records regulations: The Federal rules restrict any use of the information to criminally investigate or prosecute any alcohol or drug abuse patient.[facility] HospitalIn the event this information is protected by the Federal Confidentiality of Alcohol and Drug Abuse Patient Records regulations: The Federal rules restrict any use of the information to criminally investigate or prosecute any alcohol or drug abuse patient.[facility] Reason for Visit (unrecogniz ed section and content) Reason Comments Follow Up Reason Comments Results Reason Comments Patient Update Reason Comments Orders [facility] 11/21/2021 Reason Comments Received Outside Medical Records [facility] Discharge summary 11/28/2021 Reason Comments Patient Update Update and orders si gned and faxed to [facility]. Reason Comments Orders [facility] 11/05/2021 - 11/25/2021 Reason Comments Home Care Reason Comments Request for PCP sign off from [facility] Reason Comments Orders Thyroid Patient Question Draw labs at the off ice Reason Onset Date Comments Refill Request 03/25/2022 Reason Comments Med Change Request Reason Comments Results Labs Reason Comments Covid Positive Reason Comments Covid Positive Reason Comments Received Outside Medical Records Health care provider certification of disability license plates. 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[facility]) Procedures CONSULT TO NEUROMUSCULAR MEDIC OFFICE/OUTPATIENT [facility] MDM 60-74 MINUTES Sahra Guy MD [address] [place] [address] Referral ID Status Reason Start Date Expiration Date V isits Requested Visits Authorized [id number] Closed PCP Requested Referral 03/10/2023 03/09/2024 1 1 Reason Comments Polisher Dial - Other Reason Comments Speech Evaluation Speech Therapy Speech Discharge Specialty Diagnoses / Procedures Referred By Contac t Referred To Contact [facility] Diagnoses Post-polio syndrome Procedures CONSULT TO SPEECH THERAPY OFFICE/OUTPATIENT 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[facility]) Procedures CONSULT TO PHYSICAL THERAPY PHYSICAL THERAPY EVALUATION HIGH COMPLEX 45 MINS Sahra Guy MD [address] [place] [address] [place] [address] [place] [address] Referral ID Status Reason Start Date Expiration Date Visits Requested Visits Authorized [id number] Authorized PCP Requested Referral Auto-Generate d Referral 03/10/2023 03/09/2024 99 99 Reason Comments Received Outside Medical Records [facility] I Move in Assessment 11/25/2023 Patient Update Reason Comments Forms Reason Onset Date Comments Refill Request 01/12/2024 Reason Onset Date Comments Refill Request 01/25/2024 Reason Onset Date Comments Refill Request 02/23/2024 Reason Comments Orders Labs fax to [facility] Reason Comments RSV vaccine Reason Comments Question Reason Comments Patient Question Reason Onset Date Comments Refill Request 06/20/2024 Reason [facility] Reason Onset Date Comments Refill Request 07/05/2024 Reason Comments Muscle Aches Reason Comments Low Back Pain Reason Comments Orders PT and OT Reason Comments Patient Update At office visit on please fill all Rx's that apply per patient [facility] mail order Reason Comments Medicare Wellness Exam Reason Comments Orders [facility] Reason Comments Office Notes Reason Comments Results Labs Reason Comments Returning Patient's Call Reason Comments Orders Patient Update Lab orders were faxe d Reason Comments Follow Up Blood work sciatic p ain left Reason Comments Received Outside Medical Records [facility] Face to Face Encounter Documentation encounter 08/23/2024 Reason Onset Date Comments Nurse Triage Call Return Call Request 09/23/2024 Reason Comments Orders Reason Comments PT Eval Reason Comments Orders [facility] Reason Comments Received Outside Medical Records [facility] OT Evaluation performed no further treatment. 10/20/2024 Reason Comments Results Lab tests Reason Comments Patient Question Slipped in shower Reason Onset Date Comments Allied Health Visit 11/30/2024 Medication A dherence Outreach Reason Onset Date Comments Nurse Triage Call Patient Update 12/02/2024 Reason Comments Medication Problem Lidocaine 5% is cove red, not the 4% Reason Onset Date Comments nausea and barely eating 12/08/2024 Reason Comments Insurance Authorization Reason Onset Date Comments Population Health Navigation Outreach 01/09/2025 [employer] [facility] [place] [facility] Reason Comments Consult Urinary Frequency FREQUENT UTI Reason Comments Results Orders Reason Comments FYI-No Action Needed Care Teams (unrecognized sec tion and content) Crimp Setter Relationship Specialty Start Date End Date Sahra Guy MD [address] [place] [address] [place] [address] PCP - General Family Practice 02/20/16 Crimp Setter Relationship Specialty Start Date End Date Sahra Guy MD [address] [place] [address] [place] [address] PCP - General Family Practice 02/20/16 Crimp Setter Relationship Specialty Start Date End Date Sahra Guy MD [address] [place] [address] PCP - General Family Practice 02/20/16 Crimp Setter Relationship Specialty Start Date End Date Sahra Guy MD [address] [place] [address] PCP - General Family Practice 02/20/16 Crimp Setter Relationship Specialty Start Date End Date Sahra Guy MD [address] [place] [address] PCP - General Family Practice 02/20/16 Crimp Setter Relationship Specialty Start Date End Date Sahra Guy MD [address] [place] [address] PCP - General Family Practice 02/20/16 Crimp Setter Relationship Specialty Start Date End Date Sahra Guy MD [address] [place] [address] PCP - General Family Practice 02/20/16 Crimp Setter Relationship Specialty Start Date End Date Sahra Guy MD [address] [place] [address] PCP - General Family Medicine 02/20/16 Crimp Setter Relationship Specialty Start Date End Date Sahra Guy MD [address] [place] [address] PCP - General Family Medicine 02/20/16 Crimp Setter Relationship Specialty Start Date End Date Sahra Guy MD [address] [place] [address] PCP - General Family Medicine 02/20/16 Crimp Setter Relationship Specialty Start Date End Date Sahra Guy MD [address] [place] [address] PCP - General Family Medicine 02/20/16 Crimp Setter Relationship Specialty Start Date End Date Sahra Guy MD [address] [place] [address] PCP - General Family Medicine 02/20/16 Crimp Setter Relationship Specialty Start Date End Date Sahra Guy MD [address] [place] [address] PCP - General Family Medicine 02/20/16 Crimp Setter Relationship Specialty Start Date End Date Sahra Guy MD [address] [place] [address] PCP - General Family Medicine 02/20/16 Crimp Setter Relationship Specialty Start Date End Date Sahra Guy MD [address] [place] [address] PCP - General Family Medicine 02/20/16 Crimp Setter Relationship Specialty Start Date End Date Sahra Guy MD [address] [place] [address] PCP - General Family Medicine 02/20/16 Crimp Setter Relationship Specialty Start Date End Date Sahra Guy MD [address] [place] [address] PCP - General Family Medicine 02/20/16 Crimp Setter Relationship Specialty Start Date End Date Sahra Guy MD [address] [place] [address] PCP - General Family Medicine 02/20/16 Crimp Setter Relationship Specialty Start Date End Date Sahra Guy MD [address] [place] [address] PCP - General Family Medicine 02/20/16 Crimp Setter Relationship Specialty Start Date End Date Sahra Guy MD [address] [place] [address] PCP - General Family Medicine 02/20/16 Crimp Setter Relationship Specialty Start Date End Date Sahra Guy MD [address] [place] [address] PCP - General Family Medicine 02/20/16 Crimp Setter Relationship Specialty Start Date End Date Sahra Guy MD [address] [place] [address] PCP - General Family Medicine 02/20/16 Crimp Setter Relationship Specialty Start Date End Date Sahra Guy MD [address] [place] [address] PCP - General Family Medicine 02/20/16 Crimp Setter Relationship Specialty Start Date End Date Sahra Guy MD [address] [place] [address] PCP - General Family Medicine 02/20/16 Crimp Setter Relationship Specialty Start Date End Date Sahra Guy MD [address] [place] [address] PCP - General Family Medicine 02/20/16 Crimp Setter Relationship Specialty Start Date End Date Sahra Guy MD [address] [place] [address] PCP - General Family Medicine 02/20/16 Crimp Setter Relationship Specialty Start Date End Date Sahra Guy MD [address] [place], [place] [address] PCP - General Family Medicine 02/20/16 Crimp Setter Relationship Specialty Start Date End Date Sahra Guy MD [address] [place], [place] [address] PCP - General Family Medicine 02/20/16 Crimp Setter Relationship Specialty Start Date End Date Sahra Guy MD [address] [place], [place] [address] PCP - General Family Medicine 02/20/16 Crimp Setter Relationship Specialty Start Date End Date Sahra Guy MD [address] [place], [place] [address] PCP - General Family Medicine 02/20/16 Crimp Setter Relationship Specialty Start Date End Date Sahra Guy [address] [place], [place] [address] PCP - General 03/14/17 Crimp Setter Relationship Specialty Start Date End Date Sahra Guy MD [address] [place], [place] [address] PCP - General Family Medicine 02/20/16 Crimp Setter Relationship Specialty Start Date End Date Sahra Guy MD [address] [place], [place] [address] PCP - General Family Medicine 02/20/16 Leonid Leal APRN.CNP [address] [place], [place] [address] [facility] Internal [facility] 07/10/24 Crimp Setter Relationship Specialty Start Date End Date Sahra Guy MD [address] [place] [address] PCP - General Family Medicine 02/20/16 Leonid Leal, TEST TECH.APPLIED STATISTICIAN [address] [place] [address] [facility] Internal Medicine 07/10/24 Crimp Setter Relationship Specialty Start Date End Date Sahra Guy MD [address] [place] [address] PCP - General Family Medicine 02/20/16 Leonid Leal, TEST TECH.APPLIED STATISTICIAN [address] [place] [address] [facility] Trimmer Internal Medicine 07/10/24 Crimp Setter Relationship Specialty Start Date End Date Sahra Guy MD [address] [place] [address] PCP - General Family Medicine 02/20/16 Leonid Leal, TEST TECH.APPLIED STATISTICIAN [address] [place] [address] Shirt Trimmer Internal Medicine 07/10/24 Crimp Setter Relationship Specialty Start Date End Date Sahra Guy MD [address] [place] [address] PCP - General Family Medicine 02/20/16 Leonid Leal TEST TECH.APPLIED STATISTICIAN [address] [place] [address] Shirt Trimmer Internal Medicine 07/10/24 Crimp Setter Relationship Specialty Start Date End Date Sahra Guy MD [address] [place] [address] PCP - General Family Medicine 02/20/16 Leonid Leal APRN.APPLIED STATISTICIAN [address] [place] [address] Shirt Trimmer Internal Medicine 07/10/24 Crimp Setter Relationship Specialty Start Date End Date Sahra Guy MD [address] [place] [address] PCP - General Family Medicine 02/20/16 Leonid Leal, TEST TECH.APPLIED STATISTICIAN [address] [place] [address] Shirt Trimmer Internal Medicine 07/10/24 Crimp Setter Relationship Specialty Start Date End Date Sahra Guy MD [address] [place] [address] PCP - General Family Medicine 02/20/16 Leonid Leal, TEST TECH.APPLIED STATISTICIAN [address] [place] [address] Shirt Trimmer Internal Medicine 07/10/24 Crimp Setter Relationship Specialty Start Date End Date Sahra Guy MD [address] [place] [address] PCP - General Family Medicine 02/20/16 Leonid Leal TEST TECH.APPLIED STATISTICIAN [address] [place] [address] Shirt Trimmer Internal Medicine 07/10/24 Crimp Setter Relationship Specialty Start Date End Date Sahra Guy MD [address] [place] [address] PCP - General Family Medicine 02/20/16 Leonid Leal TEST TECH.APPLIED STATISTICIAN [address] [place] [address] Shirt Trimmer Internal Medicine 07/10/24 Crimp Setter Relationship Specialty Start Date End Date Sahra Guy MD [address] [place] [address] PCP - General Family Medicine 02/20/16 Leonid Leal TEST TECH.APPLIED STATISTICIAN [address] [place] [address] Shirt Trimmer Internal Medicine 07/10/24 Crimp Setter Relationship Specialty Start Date End Date Sahra Guy MD [address] [place] [address] PCP - General Family Medicine 02/20/16 Leonid Leal, TEST TECH.APPLIED STATISTICIAN [address] [place], [place] [id number] Shirt Trimmer Internal Medicine 07/10/24 Crimp Setter Relationship Specialty Start Date End Date Sahra Guy MD [address] [place] [address] PCP - General Family Medicine 02/20/16 Leonid Leal, TEST TECH.APPLIED STATISTICIAN [address] [place], [place] [address] Shirt Trimmer Internal Medicine 07/10/24 Crimp Setter Relationship Specialty Start Date End Date Sahra Guy MD [address] [place], [place] [address] PCP - General Family Medicine 02/20/16 Leonid Leal, TEST TECH.APPLIED STATISTICIAN [address] [place], [place] [address] Shirt Trimmer Internal Medicine 07/10/24 Crimp Setter Relationship Specialty Start Date End Date Sahra Guy MD [address] [place], [place] [address] [phone] PCP - General Family Medicine 02/20/16 Leonid Leal, TEST TECH.APPLIED STATISTICIAN [address] [place], [place] [address] Shirt Trimmer Internal Medicine 07/10/24 Crimp Setter Relationship Specialty Start Date End Date Sahra Guy MD [address] [place], [place] [id number] PCP - General Family Medicine 02/20/16 Leonid Leal, TEST TECH.APPLIED STATISTICIAN [address] [place], [place] [address] Shirt Trimmer Internal Medicine 07/10/24 Crimp Setter Relationship Specialty Start Date End Date Sahra Guy MD [address] [place], [place] [address] PCP - General Family Medicine 02/20/16 Leonid Leal, TEST TECH.APPLIED STATISTICIAN [address] [place], [place] [id number] Shirt Trimmer Internal Medicine 07/10/24 Crimp Setter Relationship Specialty Start Date End Date Sahra Guy MD [address] [place], [place] [address] PCP - General Family Medicine 02/20/16 Leonid Leal, TEST TECH.APPLIED STATISTICIAN [address] [place], [place] [id number] Shirt Trimmer Internal Medicine 07/10/24 Crimp Setter Relationship Specialty Start Date End Date Sahra Guy MD [address] [place], [place] [address] PCP - General Family Medicine 02/20/16 Leonid Leal, TEST TECH.APPLIED STATISTICIAN [address] [place], [place] [address] Shirt Trimmer Internal Medicine 07/10/24 Crimp Setter Relationship Specialty Start Date End Date Sahra Guy MD [address] [place], [place] [id number] PCP - General Family Medicine 02/20/16 Leonid Leal, TEST TECH.APPLIED STATISTICIAN [address] [place], [place] [address] Shirt Trimmer Internal Medicine 07/10/24 Crimp Setter Relationship Specialty Start Date End Date Sahra Guy MD [address] [place], [place] [id number] PCP - General Family Medicine 02/20/16 Leonid Leal, TEST TECH.APPLIED STATISTICIAN [address] [place], [place] [id number] [facility] Internal Medicine 07/10/24 Team Status: Active Member Role/Relationship Status Dates Dr. Felix Collins MD Family Provider Active Team Status: Active Member Role/Relationship Status Dates Chey THOMAS MD Attending Provider Active Start: December 20, 2024 Team Status: Inactive Member Role/Relationship Status Dates Dr. Chey Kumar MD Attending Provider Active Start: December 20, 2024 End: December 20, 2024 Team Status: Active Member Role/Relationship Status Dates Chey THOMAS MD Attending Provider Active Start: December 27, 2024 Team Status: Active Member Role/Relationship Status Dates Chey THOMAS MD Attending Provider Active Start: December 28, 2024 Team Status: Active Member Role/Relationship Status Dates Chey THOMAS MD Attending Provider Active Start: January 03, 2025 Team Status: Active Member Role/Relationship Status Dates Chey THOMAS MD Attending Provider Active Start: January 10, 2025 Team Status: Active Member Role/Relationship Status Dates Chey THOMAS MD Attending Provider Active Start: January 17, 2025 Team Status: Active Member Role/Relationship Status Dates Chey THOMAS MD Attending Provider Active Start: January 24, 2025 Team Status: Active Member Role/Relationship Status Dates Chey THOMAS MD Attending Provider Active Start: January 31, 2025 Team Status: Active Member Role/Relationship Status Dates Chey THOMAS MD Attending Provider Active Start: February 07, 2025 Team Status: Active Member Role/Relationship Status Dates Chey THOMAS MD Attending Provider Active Start: February 09, 2025 Team Status: Active Member Role/Relationship Status Dates Chey THOMAS MD Attending Provider Active Start: February 14, 2025 Team Status: Inactive Member Role/Relationship Status Dates Roxanne Padilla LENS GRINDING MACHINE OPERATOR, LENS GRINDING MACHINE OPERATOR-C Attending Provider Active Start: December 22, 2024 End: December 22, 2024 Team Status: Active Member Role/Relationship Status Dates Chey THOMAS MD Attending Provider Active Start: December 27, 2024 Team Status: Active Member Role/Relationship Status Dates Chey THOMAS MD Attending Provider Active Start: December 28, 2024 Team Status: Active Member Role/Relationship Status Dates Chey THOMAS MD Attending Provider Active Start: January 03, 2025 Team Status: Active Member Role/Relationship Status Dates Chey THOMAS MD Attending Provider Active Start: January 10, 2025 Team Status: Active Member Role/Relationship Status Dates Chey THOMAS MD Attending Provider Active Start: January 17, 2025 Team Status: Active Member Role/Relationship Status Dates Chey THOMAS MD Attending Provider Active Start: January 24, 2025 Team Status: Active Member Role/Relationship Status Dates Chey THOMAS MD Attending Provider Active Start: January 31, 2025 Team Status: Active Member Role/Relationship Status Dates Chey TOHMAS MD Attending Provider Active Start: February 07, 2025 Team Status: Active Member Role/Relationship Status Dates Chey THOMAS MD Attending Provider Active Start: February 09, 2025 Team Status: Active Member Role/Relationship Status Dates Chey THOMAS MD Attending Provider Active Start: February 14, 2025 Team Status: Inactive Member Role/Relationship Status Dates Roxanne Padilla NP LENS GRINDING MACHINE OPERATOR-C Attending Provider Active Start: December 28, 2024 End: December 28, 2024 Team Status: Active Member Role/Relationship Status Dates Chey THOMAS MD Attending Provider Active Start: January 03, 2025 Team Status: Active Member Role/Relationship Status Dates Chey THOMAS MD Attending Provider Active Start: January 10, 2025 Team Status: Active Member Role/Relationship Status Dates Chey THOMAS MD Attending Provider Active Start: January 17, 2025 Team Status: Active Member Role/Relationship Status Dates Chey THOMAS MD Attending Provider Active Start: January 24, 2025 Team Status: Active Member Role/Relationship Status Dates Chey THOMAS MD Attending Provider Active Start: January 31, 2025 Team Status: Active Member Role/Relationship Status Dates hCey THOMAS MD Attending Provider Active Start: February 07, 2025 Team Status: Active Member Role/Relationship Status Dates Chey THOMAS MD Attending Provider Active Start: February 09, 2025 Team Status: Active Member Role/Relationship Status Dates Chey THOMAS MD Attending Provider Active Start: February 14, 2025 Team Status: Inactive Member Role/Relationship Status Dates Roxanne Padilla NP LENS GRINDING MACHINE OPERATOR-C Attending Provider Active Start: January 09, 2025 End: February 18, 2025 Team Status: Active Member Role/Relationship Status Dates Chey THOMAS MD Attending Provider Active Start: January 10, 2025 Team Status: Active Member Role/Relationship Status Dates Chey THOMAS MD Attending Provider Active Start: January 17, 2025 Team Status: Active Member Role/Relationship Status Dates Chey THOMAS MD Attending Provider Active Start: January 24, 2025 Team Status: Active Member Role/Relationship Status Dates Chey THOMAS MD Attending Provider Active Start: January 31, 2025 Team Status: Active Member Role/Relationship Status Dates Chey THOMAS MD Attending Provider Active Start: February 07, 2025 Team Status: Active Member Role/Relationship Status Dates Chey THOMAS MD Attending Provider Active Start: February 09, 2025 Team Status: Active Member Role/Relationship Status Dates Chey THOMAS MD Attending Provider Active Start: February 14, 2025 Team Status: Inactive Member Role/Relationship Status Dates Roxanne Padilla NP LENS GRINDING MACHINE OPERATOR-C Attending Provider Active Start: January 10, 2025 End: January 10, 2025 Team Status: Active Member Role/Relationship Status Dates Chey THOMAS MD Attending Provider Active Start: January 17, 2025 Team Status: Active Member Role/Relationship Status Dates Chey THOMAS MD Attending Provider Active Start: January 24, 2025 Team Status: Active Member Role/Relationship Status Dates Chey THOMAS MD Attending Provider Active Start: January 31, 2025 Team Status: Active Member Role/Relationship Status Dates Chey THOMAS MD Attending Provider Active Start: February 07, 2025 Team Status: Active Member Role/Relationship Status Dates Chey THOMAS MD Attending Provider Active Start: February 09, 2025 Team Status: Active Member Role/Relationship Status Dates Chey THOMAS MD Attending Provider Active Start: February 14, 2025 Team Status: Inactive Member Role/Relationship Status Dates Roxanne Padilla NP, LENS GRINDING MACHINE OPERATOR-C Attending Provider Active Start: January 19, 2025 End: January 19, 2025 Team Status: Active Member Role/Relationship Status Dates Chey THOMAS MD Attending Provider Active Start: January 24, 2025 Team Status: Active Member Role/Relationship Status Dates Chey THOMAS MD Attending Provider Active Start: January 31, 2025 Team Status: Active Member Role/Relationship Status Dates Chey THOMAS MD Attending Provider Active Start: February 07, 2025 Team Status: Active Member Role/Relationship Status Dates Chey THOMAS MD Attending Provider Active Start: February 09, 2025 Team Status: Active Member Role/Relationship Status Dates Chey THOMAS MD Attending Provider Active Start: February 14, 2025 Team Status: Inactive Member Role/Relationship Status Dates Roxanne Padilla LENS GRINDING MACHINE OPERATOR, LENS GRINDING MACHINE OPERATOR-C Attending Provider Active Start: January 24, 2025 End: January 24, 2025 Team Status: Active Member Role/Relationship Status Dates Chey THOMAS MD Attending Provider Active Start: January 31, 2025 Team Status: Active Member Role/Relationship Status Dates Chey THOMAS MD Attending Provider Active Start: February 07, 2025 Team Status: Active Member Role/Relationship Status Dates Chey THOMAS MD Attending Provider Active Start: February 09, 2025 Team Status: Active Member Role/Relationship Status Dates Chey THOMAS MD Attending Provider Active Start: February 14, 2025 Team Status: Inactive Member Role/Relationship Status Dates Roxanne Padilla LENS GRINDING MACHINE OPERATOR, LENS GRINDING MACHINE OPERATOR-C Attending Provider Active Start: January 09, 2025 End: January 09, 2025 Team Status: Active Member Role/Relationship Status Dates Chey THOMAS MD Attending Provider Active Start: February 07, 2025 Chey THOMAS MD Referring Provider Active Start: February 07, 2025 Team Status: Active Member Role/Relationship Status Dates Chey THOMAS MD Attending Provider Active Start: February 14, 2025 Chey THOMAS MD Referring Provider Active Start: February 14, 2025 Team Status: Inactive Member Role/Relationship Status Dates Dr. Chey Kumar MD Attending Provider Active Start: February 14, 2025 End: February 14, 2025 Team Status: Active Member Role/Relationship Status Dates Chey THOMAS MD Attending Provider Active Start: February 21, 2025 Team Status: Active Member Role/Relationship Status Dates Chey THOMAS MD Attending Provider Active Start: February 28, 2025 Team Status: Active Member Role/Relationship Status Dates Melindabrittany Stacy THOMAS MD Attending Provider Active Start: March 07, 2025 Goals (unrecognized section and content) Goals may be documented in a n alternate sectionGoals may be documented in an alternate sectionGoals may be documented in an alternate sectionGoals may be documented in an alternate sectionGoals may be documented in an alternate sectionGoals may be documented in an alternate sectionGoals may be documented in an alternate sectionGoals may be documented in an alternate section FOR RECORDS PERTAINING TO PATIENTS WHO ARE OR HAVE BEEN ENROLLED IN A CHEMICAL DEPENDENCY/SUBSTANCEABUSE PROGRAM, SOME INFORMATION MAY BE OMITTED. This clinical summary was aggregated from multiple sources. Caution should be exercised in using it in the provision of clinical care. This summary normalizes information from multiple sources, and as a consequence, information in this document may materially change the coding, format and clinical context of patient data. In addition, data may be omitted in some cases. CLINICAL DECISIONS SHOULD BE BASED ON THE PRIMARY CLINICAL RECORDS. [employer] provides no warranty or guarantee of the accuracy or completeness of information in this document.
[2025-03-25 19:04] VITALS: BP 125/74; PULSE 83; RESP 18; TEMP 36.9; O2SAT 97
--- NOTE | 2025-03-25 20:07 | ED.RN ---
Attempted to call nurse to nurse report x4, no answer, left message.
== END 2025-03-25 20:07 | disposition home or self-care (01) ==
PROVIDERS: Emergency Provider Emergency Medicine; PCP Internal Medicine; Visit Provider Emergency Medicine
DX: K56.41 Fecal impaction (principal); Z79.891 Long term (current) use of opiate analgesic; Z79.899 Other long term (current) drug therapy
CPT/HCPCS: 74019; 99285

== ENCOUNTER → 2025-04-05 05:00 | Outpatient (REF) | payer MEDICARE, SELFPAY ==
[2025-04-05 07:38] LABS: Hematocrit 33.4 % (37-47); Hemoglobin 11.2 g/dL (12.0-15.0); Immature Granulocytes Count 0.010 X10^3/uL (0.0-0.0); Mean Corp Hgb Conc 33.5 g/dL (32-36); Mean Corpuscular Volume 92.3 fL (81-99); Mean Platelet Vol. 11.5 fl (6.2-12.0); NRBC Flagged by Analyzer 0 % (0-5); Platelet Count 229 K/mm3 (150-450); RBC Distribution Width CV 13.2 % (11.6-14.6); RBC Distribution Width SD 44.5 fl (35.1-43.9); Red Blood Count 3.62 M/mm3 (4.2-5.4); White Blood Count 5.4 K/mm3 (4.4-11.0)
[2025-04-05 08:09] LABS: Vitamin D,25 Hydroxy 72.7 ng/mL (30-100)
[2025-04-05 08:16] LABS: AST(SGOT) 23 U/L (<=31); Alanine Aminotransfer ALT/SGPT 14 U/L (<=34); Albumin, Serum 3.2 g/dL (3.4-4.8); Alkaline Phosphatase 62 U/L (35-104); Anion Gap 8 (5-15); BUN 17 mg/dL (4-19); BUN/Creat Ratio 60.2 RATIO (10-20); Bilirubin, Direct 0.10 mg/dL (0.00-0.30); Calcium,Total 9.6 mg/dL (7.6-11.0); Carbon Dioxide 25.0 mmol/L (21.0-32.0); Chloride 105 mmol/L (98-108); Globulin 2.4 g/dL (2.2-4.2); Glucose 101 mg/dL (70-99); Potassium 4.3 mmol/L (3.3-5.1)
== END ==
LOC: OLS.WHLEAS 05:00
PROVIDERS: PCP Internal Medicine; Visit Provider Internal Medicine
DX: R48.8 Other symbolic dysfunctions (principal); G14 Postpolio syndrome; M54.50 Low back pain, unspecified; M62.561 Muscle wasting and atrophy, not elsewhere classified, right lower leg
CPT/HCPCS: 36415; 80048; 80076; 82306; 83036; 85025

== ENCOUNTER → 2025-04-11 23:10 | Outpatient (REF) | payer MEDICARE, SELFPAY ==
[2025-04-12 08:33] LABS: Color, Urine Yellow (Yellow); Glucose, Dipstick Normal (Normal); Ketone-Dipstick Negative (Negative); Leukocyte Esterase-Dipstick 100 /ul (Negative); Nitrite-Dipstick Negative (Negative); Occult Blood-Urine 10 /ul (Negative); Protein-Dipstick 30 mg/dl (Negative); Specific Gravity, Urine 1.025 (1.002-1.030); Urine Bilirubin Dipstick Negative (Negative)
== END ==
LOC: OLS.WHLEAS 23:10
PROVIDERS: PCP Internal Medicine; Visit Provider Internal Medicine
DX: R33.9 Retention of urine, unspecified (principal)
CPT/HCPCS: 81002; 87077; 87086; 87088; 87186

== ENCOUNTER → 2025-05-03 06:05 | Outpatient (REF) | payer MEDICARE, SELFPAY ==
[2025-05-03 09:50] LABS: Hematocrit 33.3 % (37-47); Hemoglobin 11.0 g/dL (12.0-15.0); Immature Granulocytes Count 0.010 X10^3/uL (0.0-0.0); Mean Corp Hgb Conc 33.0 g/dL (32-36); Mean Corpuscular Volume 92.0 fL (81-99); Mean Platelet Vol. 11.4 fl (6.2-12.0); NRBC Flagged by Analyzer 0 % (0-5); Platelet Count 205 K/mm3 (150-450); RBC Distribution Width CV 13.2 % (11.6-14.6); RBC Distribution Width SD 44.8 fl (35.1-43.9); Red Blood Count 3.62 M/mm3 (4.2-5.4); White Blood Count 3.7 K/mm3 (4.4-11.0)
[2025-05-03 10:05] LABS: Anion Gap 9 (5-15); BUN 16 mg/dL (4-19); BUN/Creat Ratio 60.5 RATIO (10-20); Calcium,Total 9.4 mg/dL (7.6-11.0); Carbon Dioxide 25.9 mmol/L (21.0-32.0); Chloride 105 mmol/L (98-108); Glucose 92 mg/dL (70-99); Potassium 4.0 mmol/L (3.3-5.1)
== END ==
LOC: OLS.WHLEAS 06:05
PROVIDERS: PCP Internal Medicine; Visit Provider Internal Medicine
DX: G14 Postpolio syndrome (principal); S22.089D Unspecified fracture of T11-T12 vertebra, subsequent encounter for fracture with routine healing; M62.561 Muscle wasting and atrophy, not elsewhere classified, right lower leg; M54.50 Low back pain, unspecified; R48.8 Other symbolic dysfunctions
CPT/HCPCS: 36415; 80048; 85025

== ENCOUNTER → 2025-05-09 06:05 | Outpatient (REF) | payer MEDICARE, SELFPAY | LOC: OLS.WHLEAS 06:05 | PROVIDERS: PCP Internal Medicine; Visit Provider Nurse Practitioner Adult Health | DX: G14 Postpolio syndrome (principal); S22.089D Unspecified fracture of T11-T12 vertebra, subsequent encounter for fracture with routine healing; M62.561 Muscle wasting and atrophy, not elsewhere classified, right lower leg; M54.50 Low back pain, unspecified; R73.9 Hyperglycemia, unspecified | CPT/HCPCS: 36415; 83036 ==

== ENCOUNTER → 2025-06-07 | Outpatient (REF) | payer MEDICARE, SELFPAY ==
--- OUTSIDE RECORDS SUMMARY | 2025-06-07 04:54 | XMS RPT_ITS | CCD ---
Author Organization [facility] CliniSyid Care Team Providers Care Ocean Lifeguard Specialist Name Role Phone PROVIDER, UNKNOWN Unavailable Unavailable PROVIDER, UNKNOWN Unavailable Unavailable PROVIDER, UNKNOWN Unavailable Unavailable PROVIDER, UNKNOWN Unavailable Unavailable PROVIDER, UNKNOWN Unavailable Unavailable PROVIDER, UNKNOWN Unavailable Unavailable PROVIDER, UNKNOWN Unavailable Unavailable PROVIDER, UNKNOWN Unavailable Unavailable PROVIDER, UNKNOWN Unavailable Unavailable MARBELLA BRUNSON Admitting Unavailable MARBELLA BRUNSON Attending Unavailable Jaime Guy Primary Care Unavailable Sahra Guy MD Primary Care Provider Sahra Guy MD Primary Care Provider Sahra Guy MD Primary Care Provider Sahra Guy MD Primary Care Provider Sahra Guy MD Primary Care Provider Sahra Guy Primary Care Provider Mel EQUIPMENT SERVICE ASSOCIATE.PHARMACIST HELPER, Leonid Unavailable SAHRA GUY Attending Unavailable SAHRA GUY Referring Unavailable SAHRA GUY Primary Care Unavailable LEONID ROACH Attending Unavailable LEONID ROACH Referring Unavailable SAHRA GUY Primary Care Unavailable SAHRA GUY Primary Care Unavailable MORIAH LOPEZ Attending Unavailable THNU, GEORGINA A Admitting Unavailable DIANE WILSON Attending Unavailable ZAYNAB VALENCIA Admitting Unavailable SAHRA GUY Primary Care Unavailable Chey Kumar MD Attending Provider Unavailurban Kumar MD, Dr. Guerrier Attending Provider Valerie GUTIERREZ-Roxanne Singh Attending Provider Oleghe MD, Efewongbe Referring Provider Unavaila SAHRA Sanchez Primary Care Unavailable SAHRA GUY Attending Unavailable SAHRA GUY R Attending Unavailable SAHRA GUY R Primary Care Unavailable LEONID LEAL Attending Unavailable SAHRA GUY R Primary Care Unavailable MALENA, SAHRA R Primary Care Unavailable NARCISO SHERMAN Attending Unavailable Stacy MADDEN, Dr. Guerrier Primary Care Provider Vicente Leon MD Emergency Provider [phone] Tyra Ruvalcaba Attending Provider Stacy MADDEN, Dr. Guerrier Referring Provider Lorie MADDEN, Dr. Mo Attending Provider [phone] Stacy MADDEN, Dr. Guerrier Primary Care Provider Vicente Leon MD Attending Provider [phone] Oleghe OLS, Efewongbe Attending Unavailabl e Oleghe, Efewongbe Primary Care Unavailable Oleghe OLS, Efewongbe Referring Unavailabl e Oleghe OLS, Efewongbe Attending Unavailabl e Oleghe, Efewongbe Primary Care Unavailable Tickton OLS, Roxanne Attending Unavailable Oleghe OLS, Efewongbe Attending Unavailabl e Oleghe OLS, Efewongbe Attending Unavailabl e Oleghe, Efewongbe Primary Care Unavailable Oleghe OLS, Efewongbe Attending Unavailabl e Oleghe, Efewongbe Primary Care Unavailable Tickton INTERPRETER, Roxanne Attending Unavailable Tickton INTERPRETER, Roxanne Attending Unavailable Tickton INTERPRETER, Roxanne Attending Unavailable Tickton INTERPRETER, Roxanne Attending Unavailable Oleghe OLS, Efewongbe Attending Unavailabl e Oleghe OLS, Efewongbe Referring Unavailabl e Oleghe OLS, Efewongbe Attending Unavailabl e Oleghe OLS, Efewongbe Attending Unavailabl e Oleghe OLS, Efewongbe Attending Unavailabl e Oleghe OLS, Efewongbe Attending Unavailabl e Oleghe OLS, Efewongbe Attending Unavailabl e Oleghe, Efewongbe Primary Care Unavailable Vicente Leon Attending Unavailable Oleghe OLS, Efewongbe Attending Unavailabl e Oleghe, Efewongbe Attending Unavailable Oleghe, Efewongbe Primary Care Unavailable Oleghe, Efewongbe Referring Unavailable Tyra Osorio Attending Unavailable Oleghe OLS, Efewongbe Attending Unavailabl e Oleghe OLS, Efewongbe Attending Unavailabl e Oleghe OLS, Efewongbe Attending Unavailabl e Oleghe OLS, Efewongbe Attending Unavailabl e Tickton INTERPRETER, Roxanne Attending Unavailable Oleghe, Efewongbe Attending Unavailable Oleghe, Efewongbe Primary Care Unavailable Tickton INTERPRETER, Roxanne Attending Unavailable Oleghe, Efewongbe Primary Care Unavailable Lorie, Chepe Attending Unavailable Tickton INTERPRETER, Roxanne Attending Unavailable Oleghe, Efewongbe Primary Care Unavailable Tickton INTERPRETER, Roxanne Attending Unavailable Oleghe, Efewongbe Primary Care Unavailable Oleghe OLS, Efewongbe Attending Unavailabl e Tickton INTERPRETER, Roxanne Attending Unavailable Allergies Allergy Classification Reported Allergen(s) Allergy Type Date of Onset Reaction(s) Facility (20 sources) Cephalexin; Translations: [CEPHALEXIN] Drug Allergy 5 Diarrhea, GI Upset [facility] Repository (20 sources) Ibuprofen; Translations: [IBUPROFEN] Drug Allergy 5 Intolerance [facility] Repository (20 sources) rofecoxib; Translations: [ROFECOXIB] Drug Allergy 5 Intolerance [facility] Repository (20 sources) Salicylic Acid; Translations: [SALICYLATES] Drug Allergy 5 Intolerance [facility] (1 source) OTHER; Translations: [OTHER] Propensity to adverse reactions (disorder) [facility] Repository (20 sources) OMEGA-3 FATTY ACIDS-VITAMIN E; Translations: [OMEGA-3 FATTY ACIDS-VITAMIN E] Propensity to adverse reactions (disorder) 7 Intolerance [facility] Repository (20 sources) novacaine [Other] Propensity to adverse reactions 5 Intolerance [facility] (20 sources) Procaine; Translations: [PROCAINE HCL] Drug Allergy 4 Intolerance [facility] Work Phone: (7 sources) NSAIDs; Translations: [NSAIDS (NON-STEROIDAL ANTI-INFLAMMATO RY DRUG)] Propensity to adverse reactions to drug 5 Unknown [facility] (15 sources) Cephalexin; Translations: [cephalexin monohydrate] Drug Allergy 4 Diarrhea [facility] (15 sources) BLOOD THINNERS; Translations: [BLOOD THINNERS] Propensity to adverse reactions 4 Other [facility] Comment on above: BLOOD FROM EYE Medications Current Medications Medication Drug Class(es) Dates Sig (Normalized) Sig (Original) acetaminophen 325 mg oral capsule (4 sources) Start: 03-30-2025 take 1 capsule by mouth once as needed Acetaminophen 325 mg capsule Active 325 mg PO ONCE as needed March 30, 2025 12:00am amLODIPine 5 mg oral tablet (10 sources) Dihydropyridine Calcium Channel Susan Start: 03-30-2025 take 1 tablet by mouth twice daily Amlodipine 5 mg tablet Active 5 mg PO TWICE A DAY March 30, 2025 12:00am Start: 12-10-2024 take 1 tablet by nemesio twice daily amLODIPine (NORVASC) 5 mg tablet [...] 1 % o phthalmic solution 01/12/2023 Active Atropine 1 % drops (4 sources) Start: 03-30-2025 Atropine 1 % d rops Active 1 NMA OPHTHALMIC TWICE A DAY March 30, 2025 12:00am Biotin (20 sources) take 1 capsule by mouth once daily BIOTIN ORAL Take 1 capsule by mouth once daily. Suspended take 1 capsule by mouth once gabriel ly BIOTIN ORAL Take 1 capsule by mouth once daily. Active take 1 capsule by mouth once gabriel ly BIOTIN ORAL Take 1 capsule by mouth once daily. 0 Active Comment on above: Take 1 capsule by mo [facility] once daily. bisacodyl 10 mg rectal suppository (4 sources) Stimulant Laxative Start: 03-30-2025 Bisacodyl 10 mg suppository Active 10 mg RC daily as needed March 30, 2025 12:00am brimonidine tartrate 2 mg/ml ophthalmic solution (20 sources) alpha-Adrenergic Agonist Start: 09-19-2023 take 1 drop(s) into the eye(s) twice daily brimonidine (ALPHAGAN) 0.2 % ophthalmic solution Use 1 drop in the left eye two times a day. 09/19/2023 Active Start: 09-19-2023 brimonidine (A LPHAGAN P) 0.1 % drop 09/19/2023 Active Brimonidine 0.1 % drops (4 sources) Start: 03-30-2025 Brimonidine 0. 1 % drops Active 1 NMA OPHTHALMIC TWICE A DAY March 30, 2025 12:00am Calcium Carbonate (20 sources) calcium carbonat e (CALCIUM 500 ORAL) Take by mouth every other day. Suspended calcium carbonat e (CALCIUM 500 ORAL) Take by mouth every other day. Active calcium carbonat e (CALCIUM 500 ORAL) Take by mouth every other day. 0 Active Comment on above: Take by mouth every other day. cholecalciferol 0.05 mg oral capsule (6 sources) Vitamin D take 1 capsule by mouth once daily Cholecalciferol, Vitamin D3, (VITAMIN D-3) 50 mcg (2,000 unit) cap Take 1 capsule by mouth once daily. Active COMPRESSION HOSIERY KNEE LENGTH, AD, 18-30 MMHG [...] CPAP cyclobenzaprine hydrochloride 5 mg oral tablet (11 sources) Muscle Relaxant Start: take 1 tablet by mouth twice daily as needed Cyclobenzaprine 5 mg tablet Active 5 mg PO TWICE A DAY as needed March 30, 2025 12:00am Start: 12-10-2024 take 1 tablet by nemesio th every twelve hours as needed cyclobenzaprine (FLEXERIL) 5 mg tablet Take 1 tablet by mouth two times a day as needed. 15 tablet 12/10/2024 Active cyclopentolate hydrochloride 10 mg/ml ophthalmic solution (20 sources) Start: 07-31-2017 take 1 drop(s) into the [...] mg/ml / hypromellose 3 mg/ml ophthalmic solution (10 sources) Plasma Volume Executive Vice President Start: 03-30-2025 Dextran 70-Hypromellose drops Active 1 NMA OPHTHALMIC TWICE A DAY March 30, 2025 12:00am dextran 70-hypro mellose (ARTIFICIAL TEARS,[id number],) 0.1-0.3 % ophthalmic solution Use 1 drop in both eyes two times a day. Active docusate sodium 50 mg / sennosides, fci 8.6 mg oral tablet (6 sources) Start: 12-19-2024 End: 03-19-2025 take 2 tablets by mouth twice daily senna-docusate (SENNA-S) 8.6-50 mg per tablet Take 2 tablets by mouth two times a day. 360 tablet 12/19/2024 03/19/2025 Active ergocalciferol, vitamin D2, (VITAMIN D2 ORAL) (20 [...] 325 mg by mouth every other day. [id number] -lety-bosw (OSTEO BI-FLEX TRIPLE STRENGTH) 750 mg-644 mg- 30 mg-1 mg tab (6 sources) take 1 tablet by mouth once daily [id number]- C-lety-bosw (OSTEO BI-FLEX TRIPLE STRENGTH) 750 mg-644 mg- 30 mg-1 mg tab Take 1 tablet by mouth once daily. Active lactulose 667 mg/ml oral solution (1 source) Osmotic Laxative Start: 12-19-2024 End: 01-18-2025 take 60 mL by mouth every four hours lactulose 20 gram/30 mL solution Take 60 mL by mouth every 4 hours while awake. 7200 mL 12/19/2024 01/18/2025 Active lidocaine 0.04 mg/mg medicated patch (20 sources) Antiarrhythmic, Amide Local Anesthetic Start: 03-30-2025 Lidocaine (Asperflex (Lidocaine)) 4 % adhesive patch,medicated Active 1 NMA TOPICAL daily as needed March 30, 2025 12:00am Start: 12-07-2024 apply 1 dose transde rmal route once daily lidocaine (LIDODERM) 5 % [...] ITIN ORAL) Take by mouth. 0 Active Magnesium Hydroxide (4 sources) Start: 03-30-2025 take 1 mL by mouth once daily as needed Magnesium Hydroxide (Milk Of Magnesia) 400 mg/5 mL suspension Active 5 mL PO daily as needed March 30, 2025 12:00am Menthol / Zinc Oxide (4 sources) Start: 03-30-2025 Menthol-Zinc Oxide (Calmoseptine) 0.44-20.6 % ointment Active 1 NMA TOPICAL 4 to 6 times per day as needed March 30, 2025 12:00am metFORMIN hydrochloride 500 mg oral tablet (20 [...] 135 g 3 01/25/2024 Active Start: 03-10-2014 End: 03-30-2025 Metronidazole (Metrogel Vagi nal) 70 GM gel Discontinued 0 g VAGINAL TWICE A DAY March 10, 2014 12:00am March 30, 2025 2:16pm Comment on above: APPLY 1 APPLICATION TO AFFECTED AREA ONCE DAILY TOFACE miconazole nitrate 20 mg/ml vaginal cream (20 sources) Azole Antifungal Start: 11-01-2019 miconazole (MONISTAT 7) 2 % vaginal cream Use 1 Applicator vaginally daily at bedtime. 45 g 1 11/01/2019 Active Comment on above: Use 1 Applicator vag inally daily at bedtime. naloxone hydrochloride 0.4 mg/ml injectable solution (4 sources) Opioid Antagonist Start: 03-30-2025 Naloxone 0.4 mg/mL solution Active 0.4 mg SC ONCE March 30, 2025 12:00am nirmatrelvir tablet 300 mg (150 mg x [...] 30 g 1 05/08/2023 Active Start: 03-10-2014 End: 03-30-2025 Nystatin-Triamcinolone 30 GM cream Discontinued 0 g TP TWICE A DAY March 10, 2014 12:00am March 30, 2025 2:16pm Comment on above: Apply sparingly to p erineum twice daily for irritation/infection. pantoprazole 20 mg delayed release oral tablet (10 sources) Proton Pump Inhibitor Start: 025 take 1 tablet by mouth once daily Pantoprazole 20 mg tablet,delayed release (DR/EC) Active 20 mg PO daily March 30, 2025 12:00am take 1 tablet by mouth once nicole y pantoprazole DR (PROTONIX) 40 mg tablet Take 40 mg by mouth once daily. Active polyethylene glycol 3350 52169 mg powder for oral solution (6 sources) Osmotic Laxative Start: 12-19-2024 End: 03-19-2025 polyethylene glycol 3350 17 gram packet Take [...] Active Comment on above: Use in eyes. potassium chloride 1.33 meq/ml oral solution (4 sources) Start: 03-30-2025 take 20 mEq by mouth once daily Potassium Chloride 20 mEq/15 mL liquid Active 20 meq PO daily March 30, 2025 12:00am Propylene glycol (7 sources) take 1 drop(s) into the eye(s) twice daily propylene glycol (SYSTANE COMPLETE OPHTHALMIC) Use 1 drop in eyes two times a day. Active rutin/hesp/bioflav/C/ [id number] (BIOFLEX ORAL) (20 sources) take 1 capsule by mouth twice daily rutin/hesp/bioflav/C / (BIOFLEX ORAL) Take 1 capsule by mouth twice daily. Suspended take 1 capsule by mo uth twice daily rutin/hesp/bioflav/C/[id number] (BIOFLEX ORAL) Take 1 capsule by mouth twice daily. Active take 1 capsule by mo uth twice daily rutin/hesp/bioflav/C/[id number] (BIOFLEX ORAL) Take 1 capsule by mouth twice daily. 0 Active Comment on above: Take 1 capsule by mo uth twice daily. sulfacetamide sodium 100 mg/ml ophthalmic [...] Dihydrofolate Reductase Inhibitor Antibacterial, Sulfonamide Antimicrobial Start: 025 take 1 tablet by mouth twice daily sulfamethoxazole-tr imethoprim (BACTRIM DS) 800-160 mg per tablet Take 1 tablet by mouth two times a day. 14 tablet 02/09/2025 Active tamsulosin hydrochloride 0.4 mg oral capsule (7 sources) alpha-Adrenergic Susan Start: 025 End: 025 take 1 capsule by mouth once daily [...] 1 tablet by nemesio th once daily. preservative-free timolol 5 mg/ml ophthalmic [...] oral tablet (1 source) Opioid Agonist Start: 5 End: 5 take 1 tablet by mouth every four hours as needed for pain traMADol (ULTRAM) 50 mg tablet Indications: Acute left-sided low back pain, unspecified whether sciatica present , Left hip pain Take 1 tablet by mouth every 4 hours as needed for pain for up to 7 days. 28 tablet 09/26/2024 10/03/2024 Active valACYclovir 1000 mg oral tablet (5 sources) Herpesvirus Nucleoside Analog DNA Polymerase Inhibitor, Herpes Simplex Virus Nucleoside Analog DNA Polymerase Inhibitor, Herpes Zoster Virus Nucleoside Analog DNA Polymerase Inhibitor Start: 5 End: 5 take 1 tablet by mouth three times [...] Drug Class(es) Dates Sig (Normalized) Sig (Original) B Complete (14 sources) Start: 03-10-2014 End: 03-30-2025 B Complete Discontinued 1 {tbl} PO DAILY March 10, 2014 12:00am March 30, 2025 2:15pm Start: 03-10-2014 B Complete Act marlena 1 {tbl} PO DAILY March 10, 2014 12:00am calcium carbonate 1500 mg / cholecalciferol 0.01 mg oral tablet (14 sources) Vitamin D Start: 03-10-2014 End: 03-30-2025 Calcium Carbonate-Vitamin D3 (Calcium 600 + Vit D Tablet) 1 EACH tablet Discontinued 1 NMA PO TWICE A DAY March 10, 2014 12:00am March 30, 2025 2:15pm ciclopirox 0.0077 mg/mg topical gel (14 sources) Start: 03-10-2014 End: 03-30-2025 Ciclopirox (Loprox) 100 GM gel Discontinued g TP TWICE A DAY March 10, 2014 12:00am March 30, 2025 2:16pm ergocalciferol 0.05 mg oral tablet (14 sources) Provitamin D2 Compound Start: 03-10-2014 End: 03-30-2025 Ergocalciferol (Vitamin D2) 2,000 UNIT tablet Discontinued 98733 U PO EVERY WEEK March 10, 2014 12:00am March 30, 2025 2:16pm FLUoxetine 20 mg oral tablet (14 sources) Serotonin Reuptake Inhibitor Start: 03-10-2014 End: 03-30-2025 take 1 tablet by mouth once daily Fluoxetine (Sarafem) 20 MG tablet Discontinued 20 mg PO DAILY March 10, 2014 12:00am March 30, 2025 2:16pm gabapentin 100 mg oral capsule (4 sources) Anti-epileptic Agent Start: 08-11-2024 End: 09-10-2024 take 1 capsule by mouth once daily at bedtime gabapentin (NEURONTIN) 100 mg capsule Indications: Acute left-sided low back pain with left-sided sciatica Take 1 capsule by mouth daily at bedtime for 30 days. 30 capsule 08/11/2024 08/23/2024 Discontinued omeprazole 20 mg delayed release oral capsule (14 sources) Proton Pump Inhibitor Start: 03-10-2014 End: 03-30-2025 take 1 capsule by mouth once daily Omeprazole 20 MG capsule Discontinued 20 mg PO DAILY March 10, 2014 12:00am March 30, 2025 2:16pm 24 hr oxybutynin chloride 10 mg extended [...] 30 tablet 11 08/20/2021 Active Start: 03-10-2014 End: 03-30-2025 take 2 tablets by mouth once daily Oxybutynin Chloride 5 MG tablet Discontinued 10 mg PO DAILY March 10, 2014 12:00am March 30, 2025 2:16pm Comment on above: Take 1 tablet by nemesio th once daily. TAKE 1 TABLET BY NEMESIO TH EVERY DAY take 1 tablet once d aily oxyCODONE hydrochloride 5 mg oral tablet (20 sources) Opioid Agonist Start: End: take 1 tablet by mouth twice daily Oxycodone 5 mg tablet Discontinued 5 mg PO TWICE A DAY 60 30 0 March 01, 2025 March 30, 2025 12:00am March 30, 2025 2:14pm Chronic pain Other chronic pain pain 8am and 9pm. Start: 02-21-2025 End: 04-06-2025 take 1 tablet by mouth every six hours as needed for pain Oxycodone 5 mg tablet Discontinued 5 mg PO EVERY 6 HOURS as needed for pain 120 30 0 March 07, 2025 April 05, 2025 12:00am April 06, 2025 12:06am Chronic pain Other chronic pain Start: 12-19-2024 End: 02-17-2025 take 1 tablet by mouth every six hours as needed for pain Oxycodone 5 mg tablet Discontinued 5 mg PO EVERY 6 HOURS as needed for pain 60 30 0 January 18, 2025 February 16, 2025 12:00am February 17, 2025 12:07am Post poliomyelitis syndrome Postpolio syndrome prednisoLONE (20 sources) Corticosteroid Start: 03-10-2014 End: 03-30-2025 Prednisol 1% Discontinued 1 NMA Left Eye DAILY NEEDED March 10, 2014 12:00am March 30, 2025 2:16pm Start: 03-10-2014 Prednisol 1% A ctive 1 NMA Left Eye DAILY NEEDED March 10, 2014 12:00am take 1 drop(s) into the eye(s) every twelve hours as needed prednisoLONE acetate (PRED FORTE, ECONOPRED PLUS) 1 % ophthalmic suspension Use 1 Drop in the left eye twice daily as needed. Active prednisoLONE hector kent (PRED FORTE, ECONOPRED PLUS) 1 % ophthalmic suspension Use 1 Drop in the left eye twice daily as needed. 0 Active Comment on above: Use 1 Drop in the le ft eye twice daily as needed. travoprost 0.04 mg/ml ophthalmic solution (14 sources) Prostaglandin Analog Start: 4 End: take 1 drop(s) into the eye(s) once daily Travoprost (Travatan 0.004% Eye Drop) 1 DROP bottle Discontinued 1 NMA Left Eye DAILY March 10, 2014 12:00am March 30, 2025 2:16pm Problems Active Problems Problem Classification Problem Date Documented Da te Episodic/Chronic Adjustment disorders (20 sources) Adjustment disorder with depressed mood; Translations: [Adjustment disorder with depressed mood] Onset: 6 12-23-2005 Chronic Deficiency and other anemia (3 sources) Iron deficiency anemia, unspecified; Translations: [Iron deficiency anemia, unspecified] Onset: 8 Episodic Diabetes mellitus without complication (7 sources) Hyperglycemia; Translations: [Hyperglycemia, unspecified] Onset: 5 02-23-2024 Episodic Disorders of lipid metabolism (6 sources) Mixed hyperlipidemia; Translations: [Mixed hyperlipidemia] Onset: 5 02-23-2024 Chronic E Codes: Other specified and classifiable (1 source) Other accident with wheelchair (powered), initial encounter; Translations: [Accidental fall from wheelchair] 09-16-2024 Episodic E Codes: Place of occurrence (1 source) Unspecified place in senior care as the place of occurrence of the external cause; Translations: [Fall at senior care, subsequent encounter] Onset: 5 Episodic Esophageal disorders (20 sources) Gastroesophageal reflux disease; Translations: [Gastro-esophageal reflux disease without esophagitis] Onset: 5 08-25-2018 Chronic Esophageal disorders (2 sources) Esophageal disorders Onset: 9 Essential hypertension (10 sources) Essential hypertension; Translations: [Essential (primary) hypertension] Onset: 5 08-23-2024 Chronic Fluid and electrolyte disorders (1 source) Dehydration; Translations: [Dehydration] Onset: 5 Episodic Genitourinary symptoms and ill-defined conditions (20 sources) Incontinence; Translations: [Unspecified urinary incontinence] Onset: 2 07-19-2012 Chronic Genitourinary symptoms and ill-defined conditions (6 sources) Other retention of urine; Translations: [Increased frequency of urination] Onset: 5 02-07-2025 Episodic Glaucoma (2 sources) Glaucoma of left eye; Translations: [Unspecified glaucoma] Chronic Infective arthritis and osteomyelitis (except that caused by tuberculosis or sexually transmitted disease) (20 sources) Poliomyelitis osteopathy of multiple sites; 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, multiple sites] Onset: 9 Chronic Intestinal obstruction without hernia (6 sources) Fecal impaction; Translations: [Fecal impaction of rectum] 03-25-2025 Episodic Mood disorders (14 sources) Depressive disorder; Translations: [Depression] 05-13-2013 Chronic Nutritional deficiencies (20 sources) Vitamin D deficiency; Translations: [Vitamin D deficiency, unspecified] Onset: 0 04-15-2010 Chronic Osteoarthritis (1 source) Degenerative joint disease involving multiple joints; Translations: [Primary generalized (osteo)arthritis] 08-23-2024 Chronic Other bone disease and musculoskeletal deformities (20 sources) Disorder of skeletal system; Translations: [Disorder of bone, unspecified] 03-26-2007 Episodic Other GRIP BOSS infection and poliomyelitis (20 sources) Post poliomyelitis [...] Translations: [Frequent falls] Onset: 5 Episodic Other connective tissue disease (1 source) Muscle wasting and atrophy, not elsewhere classified, right lower leg; Translations: [Muscle wasting and atrophy, not elsewhere classified, right lower leg] Onset: 5 Episodic Other diseases of bladder and urethra (2 sources) Overactive bladder; Translations: [Overactive bladder] 03-10-2023 Chronic Other diseases of bladder and urethra (14 sources) Bladder muscle dysfunction - overactive 05-13-2013 Chronic Other fractures (1 source) Wedge compression fracture of unspecified thoracic vertebra, initial encounter for closed fracture; Translations: [Thoracic compression fracture, closed, initial encounter ([facility])] Onset: 5 Episodic Other fractures (14 sources) Compression fracture of thoracic spine; Translations: [Wedge compression fracture of unspecified thoracic vertebra, initial encounter for closed fracture] Onset: 5 12-16-2024 Episodic Other fractures (1 source) Wedge compression fracture of unspecified thoracic vertebra, subsequent encounter for fracture with routine healing; Translations: [Compression fracture of thoracic vertebra with routine healing, unspecified thoracic vertebral level, subsequent encounter] Onset: 5 Episodic Other gastrointestinal disorders (2 sources) Constipation, unspecified; Translations: [Constipation, unspecified constipation type] Onset: 5 Episodic Other gastrointestinal disorders (6 sources) Constipation; Translations: [Constipation, unspecified] 03-25-2025 Episodic Other hematologic conditions (1 source) H/O: [...] 8 10-13-2017 Chronic Other nervous system disorders (7 sources) Chronic pain; Translations: [Other chronic pain] 02-21-2025 Chronic Other nervous system disorders (1 source) Abnormal gait; Translations: [Unspecified abnormalities of gait and mobility] 08-23-2024 Episodic Other nervous system disorders (1 source) Other symbolic dysfunctions; Translations: [Other symbolic dysfunctions] Onset: 5 Episodic Other non-traumatic joint disorders (1 source) [...] sleep apnea (adult) (pediatric)] Onset: 7 Chronic Residual codes; unclassified (20 sources) Sleep apnea; Translations: [Sleep apnea, unspecified] Onset: 0 Resolved: 9 02-01-2019 Chronic Residual codes; unclassified (1 source) Obstructive sleep apnea (adult) (pediatric); Translations: [Obstructive sleep apnea (adult) (pediatric)] Onset: 5 Chronic Spondylosis; intervertebral disc disorders; other back problems (6 sources) Degeneration of lumbar intervertebral disc; Translations: [Degenerative disc disease (DDD) of lumbar region with axial back pain without leg nuha] 03-30-2025 Chronic Spondylosis; intervertebral disc disorders; other back problems (20 sources) Low back pain; Translations: [Lumbago] Onset: 7 01-05-2007 Episodic Sprains and strains (1 source) Strain of [...] low back pain without sciatica] Onset: 5 Unclassified (8 sources) M54.50 - Low back pain, unspecified,M54.2 - Cervicalgia Unclassified (2 sources) Low back pain, unspecified; Translations: [Low back pain, unspecified] Onset: 5 Urinary tract infections (2 sources) Urinary tract infectious disease; Translations: [Urinary tract infection, site not specified] Onset: 5 02-07-2025 Episodic Past or Other Problems Problem Classification Problem Date Documented Da te Episodic/Chronic Abdominal pain (20 sources) Epigastric pain; Translations: [Epigastric pain] Onset: 08-25-2018 Resolved: 11-24-2018 11-24-2018 Episodic E Codes: Fall (9 sources) Fall in senior care; Translations: [Unspecified fall, initial encounter] Onset: 12-08-2024 [...] Onset: 06-02-2014 Resolved: 02-01-2019 02-01-2019 Episodic Other gastrointestinal disorders (9 sources) Dysphagia; Translations: [Dysphagia, unspecified] Onset: 12-08-2024 04-09-2023 Episodic Other non-traumatic joint disorders (20 sources) Pain in lower limb; Translations: [Pain in unspecified knee] Onset: 01-22-2007 01-22-2007 Episodic Varicose veins of lower extremity (20 sources) 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; Translations: [Varicose veins of left lower extremity with both ulcer of unspecified site and inflammation] Onset: 05-28-2005 Resolved: 08-23-2024 Episodic Viral infection (20 sources) Disease caused by 2019-nCoV; Translations: [COVID-19] Onset: 07-29-2018 Resolved: 02-01-2019 Episodic Results Test Name Value Interpretation Reference Range Facility Absolute lymphocyte countOrd ered By: Chey Kumar on 04-05-2025 Lymphocytes Auto (Unsp spec) [#/Vol] 1.77 10*3/uL 0.83-4.51 [facility] Absolute neutrophil countOrd ered By: Chey Kumar on 04-05-2025 Neutrophils (Bld) [#/Vol] 2.8 10*3/uL 2.0-7.7 [facility] Anion gap in Serum or Plasma Ordered By: Chey Kumar on 04-05-2025 Anion gap [Moles/Vol] 8 mmol/L 5-15 [facility] Automated lymphocyte count a s percentage of total leukocytesOrdered By: Chey Kumar on 04-05-2025 Lymphocytes/100 WBC Auto (Unsp spec) 32.5 % 19-41 [facility] BUN/creatinine ratioOrdered By: Chey Kumar on 04-05-2025 Urea nitrogen/Creatinine [Mass ratio] 60.2 mg/mg High 10-20 [facility] Basophil percentageOrdered B y: Chey Kumar on 04-05-2025 Basophils/100 WBC (Bld) 0.9 % 0-1 [facility] Bilirubin directOrdered By: Chey Kumar on 04-05-2025 Bilirubin.direct [Mass/Vol] 0.10 mg/dL 0.00-0.30 [facility] Comment on above: Hemolysis present, R esults could be affected. Bilirubin, totalOrdered By: Chey Kumar on 04-05-2025 Bilirubin [Mass/Vol] 0.27 mg/dL 0.00-1.30 [facility] Carbon dioxide, total [Moles /volume] in Central venous bloodOrdered By: Chey Kumar on 04-05-2025 CO2 [Moles/Vol] 25.0 mmol/L 21.0-32.0 [facility] Chloride assayOrdered By: Walt Kumar on 04-05-2025 Chloride [Moles/Vol] 105 mmol/L 98-108 [facility] Eosinophil percentageOrdered By: Chey Kumar on 04-05-2025 Eosinophils/100 WBC (Bld) 2.0 % 0-5 [facility] Erythrocyte distribution wid th ratioOrdered By: Chey Kumar on 04-05-2025 Erythrocyte distribution width (RBC) [Ratio] 13.2 % 11.6-14.6 [facility] Erythrocyte distribution wid th standard deviationOrdered By: Chey Kumar on 04-05-2025 Erythrocyte distribution width (RBC) [Ratio] 44.5 fl High 35.1-43.9 [facility] Glomerular filtration rate ( GFR) estimation/1.73 sq m using serum, plasma, or whole bOrdered By: Chey Kumar on 04-05-2025 GFR/1.73 sq M.predicted among non-blacks MDRD (S/P/Bld) [Vol rate/Area] 104 mL/min/{1.73_m2} >60 [facility] Comment on above: mL/min/1.73m2 CKD-EP I Creatinine Equation (2020) Hematocrit Auto (Bld) [Volum e fraction]Ordered By: Chey Kumar on 04-05-2025 Hematocrit (Bld) [Volume fraction] 33.4 % Low 37-47 [facility] Hemoglobin A1c percentageOrd ered By: Chey Kumar on 04-05-2025 HbA1c (Bld) [Mass fraction] 4.9 % <5.7 [facility] Comment on above: Normal < 5.7 % Predi abetic 5.7 - 6.4 % Diabetic >or= 6.5 % Please note range changes. Hemoglobin measurementOrdere d By: Chey Kumar on 04-05-2025 Hemoglobin (Bld) [Mass/Vol] 11.2 g/dL Low 12.0-15.0 [facility] Immature granulocytes/100 WB C Auto (Bld)Ordered By: Chey Kumar on 04-05-2025 Immature granulocytes/100 WBC (Bld) 0.200 % 0.0-0.9 [facility] Comment on above: IG% - Immature Granu locytes (promyelocytes, myelocytes and metamyelocytes) > 1% indicates that a LEFT SHIFT is Present. Laboratory - Chemistry and C hemistry - challengeOrdered By: Chey Kumar on 04-05-2025 AST [Catalytic activity/Vol] 23 U/L <32 [facility] Comment on above: Hemolysis present, R esults could be affected. MCV (mean corpuscular volume ) determinationOrdered By: Chey Kumar on 04-05-2025 MCV (RBC) [Entitic vol] 92.3 fL 81-99 [facility] Mean corpuscular hemoglobin (MCH) determinationOrdered By: Chey Kumar on 04-05-2025 MCH (RBC) [Entitic mass] 30.9 pg 27.0-32.0 [facility] Mean corpuscular hemoglobin concentration (MCHC) determinationOrdered By: Chey Kumar on 04-05-2025 MCHC (RBC) [Mass/Vol] 33.5 g/dL 32-36 [facility] Mean platelet volume determi nationOrdered By: Chey Kumar on 04-05-2025 Platelet mean volume (Bld) [Entitic vol] 11.5 fL 6.2-12.0 [facility] Monocyte percentageOrdered B y: Chey Kumar on 04-05-2025 Monocytes/100 WBC (Bld) 12.5 % High 0-10 [facility] Neutrophil percentageOrdered By: Chey Kumar on 04-05-2025 Neutrophils/100 WBC (Bld) 51.9 % 47-70 [facility] Nucleated red blood cell per centageOrdered By: Chey Kumar on 04-05-2025 Nucleated RBC/100 WBC (Bld) [Ratio] 0 % 0-5 [facility] Platelet countOrdered By: Walt Kumar on 04-05-2025 Platelets (Bld) [#/Vol] 229 10*3/uL 150-450 [facility] Potassium measurement (mass/ volume)Ordered By: Chey Kumar on 04-05-2025 Potassium (Unsp spec) [Mass/Vol] 4.3 mmol/L 3.3-5.1 [facility] Comment on above: Hemolysis present, R esults could be affected. RBC Auto (Bld) [#/Vol]Ordere d By: Chey Kumar on 04-05-2025 RBC (Bld) [#/Vol] 3.62 10*6/uL Low 4.2-5.4 [facility] Serum creatinine measurement (mass/volume)Ordered By: Chey Kumar on 04-05-2025 Creatinine [Mass/Vol] 0.29 mg/dL Low 0.70-1.20 [facility] Serum globulin measurementOr dered By: Chey Kumar on 04-05-2025 Globulin (S) [Mass/Vol] 2.4 g/dL 2.2-4.2 [facility] Serum glucose measurement (m ass/volume)Ordered By: Chey Kumar on 04-05-2025 Glucose [Mass/Vol] 101 mg/dL High 70-99 [facility] Serum or plasma alanine grimaldo otransferase (ALT) measurementOrdered By: Chey Kumar on 04-05-2025 ALT [Catalytic activity/Vol] 14 U/L <35 [facility] Serum or plasma albumin ori urement (mass/volume)Ordered By: Chey Kumar on 04-05-2025 Albumin [Mass/Vol] 3.2 g/dL Low 3.4-4.8 [facility] Serum or plasma alkaline nikia sphatase measurementOrdered By: Chey Kumar on 04-05-2025 ALP [Catalytic activity/Vol] 62 U/L 35-104 [facility] Serum or plasma calcium ori urement (mass/volume)Ordered By: Chey Kumar on 04-05-2025 Calcium [Mass/Vol] 9.6 mg/dL 7.6-11.0 [facility] Serum or plasma urea nitroge n measurement (mass/volume)Ordered By: Chey Kumar on 04-05-2025 Urea nitrogen [Mass/Vol] 17 mg/dL 4-19 [facility] Sodium levelOrdered By: Melinda perezrhona Stacy on 04-05-2025 Sodium [Moles/Vol] 138 mmol/L 133-145 [facility] Total proteinOrdered By: Gary Kumar on 04-05-2025 Protein [Mass/Vol] 5.6 g/dL Low 5.9-8.4 [facility] White blood cell (WBC) count Ordered By: Chey Kumar on 04-05-2025 WBC (Bld) [#/Vol] 5.4 10*3/uL 4.4-11.0 [facility] Lumbar Spine 2 or 3 Viewson 03-30-2025 Lumbar Spine [address] [facility] Imaging Services [address] [place] [address] Lumbar Spine 2 or 3 Views MR#: [id number] Acct: [id number] Name: CANNONTENA M Rep #: [id number] : 1940 F 84 From: Edgard Briceño MD PCP: Dr. Chey Kumar MD Status: DEP AMB Study: Lumbar Spine 2 or 3 Views Date of Exam: Exam# [id number] Ordering Dr: Tyra Osorio PROCEDURE: LUMBAR SPINE 2 OR 3 VIEWS 03/30/2025 REASON FOR EXAM: ON GOING BACK PAIN TECHNIQUE: Procedure Code: RADSPLL Modality: DX Procedure: LUMBAR SPINE 2 OR 3 VIEWS COMPARISON: December 15, 2024 FINDINGS: Vertebrae: Vertebral augmentation has been performed at L3. Discs: Disc spaces are fairly well preserved above L4 with bridging osteophytes suggesting spondyloarthropathy. Degenerative changes thoracolumbar junction and at L4/5, L5/S1. Alignment: Curvature thoracolumbar spine to the right. No spondylolisthesis. Straightening of the lordosis. Other: Surgical clips right upper quadrant from cholecystectomy RAD/Lumbar Spine 2 or 3 Views IMPRESSION: Curvature thoracolumbar spine to the right. Degenerative changes thoracolumbar junction, lower lumbar spine. 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 Reading Location: [facility] CC: ISAK Sutton; Dr. Chey Kumar MD Supervisor Glycerin: Signed Normal [facility] Orthopedic Visit Reporton Orthopedic Visit Report [facility] [address] [place] [address] OFFICE VISIT Date of Service: 03/30/25 MR#: [id number] Acct: [id number] Name: TENA CANNON Rep #: [id number] : 1940 Provider: ISAK Sutton Age/Sex: 84/F Location: [facility]DANDRE Status: Signed Intake Vital Signs 02/18/25 13:04 03/25/25 16:46 Height 4 ft 8 in 4 ft 7.91 in Intake Visit Reasons: LUMBAR SPINE Allergies cephalexin monohydrate (From Keflex) Adverse Reaction (Verified 03/30/25 13:35) Diarrhea BLOOD THINNERS Adverse Reaction (Uncoded 03/30/25 13:35) Other Medications ???Medication ???Instructions ???Recorded ???Confirmed ???Type timolol maleate 0.5 % eye drops 1 drp DAILY 03/10/14 03/30/25 Hist ory oxycodone 5 mg tablet 5 mg PO Q6H PRN pain 30 days #120 03/07/25 03/30/25 Rx tabs acetaminophen 325 mg capsule 325 mg PO ONCE PRN 03/30/25 History amlodipine 5 mg tablet 5 mg PO BID 03/30/25 03/30/25 Hist ory atropine 1 % eye drops 1 drp ophthalmic (eye) BID 5 03/30/25 History bisacodyl 10 mg rectal suppository 10 mg NJ QDAY PRN 03/30/2503/30 History brimonidine 0.1 % eye drops 1 drp ophthalmic (eye) BID 5 03/30/25 History cyclobenzaprine 5 mg tablet 5 mg PO BID PRN 03/30/25 03/30/25 History dextran 70-hypromellose eye drops 1 drp ophthalmic (eye) BID 03/30/25 History lidocaine 4 % topical patch 1 patch topical QDAY PRN 03/30/25 03/30/25 History (AsperFlex (lidocaine)) magnesium hydroxide 400 mg/5 mL 5 ml PO QDAY PRN 03/30/25 03/30/25 History oral suspension (Milk of Magnesia) menthol 0.44 %-zinc oxide 20.6 % 1 applic topical 4-6XD PRN 5 03/30/25 History topical ointment (Calmoseptine) naloxone 0.4 mg/mL injection 0.4 mg subcut ONCE 03/30/25 History solution pantoprazole 20 mg tablet,delayed 20 mg PO QDAY 03/30/25 03/30/25 H istory release potassium chloride 20 mEq/15 mL 20 meq PO QDAY 03/30/25 03/30/25 H istory oral liquid Have you fallen in the past year?: Yes (12/04/24) [facility] Medical History (Updated 03/30/25 @ 16:19 by ISAK Sutton) History of fractured vertebra Polio Surgical History (Updated 03/30/25 @ 14:17 by Corrie Mead) History of kyphoplasty Social History Smoking Status: Unknown if ever smoked HPI LUMBAR SPINE Details: This documentation accurately reflects the service provided and the decisions made by me, ISAK Sutton 03/30/25 1330. Part of today???s visit was documented by Alessandra OCAMPO, acting as scribe. TENA CANNON is a 84 year old F here today for low back pain. She started having pain on 12/04/24 when she fell. She states that she was in her electric wheelchair and was leaning forward and accidentally hit the joystick on her chair which cause her to fall and landed on her back ending up with 2 fractured vertebra. She states that her pain is across the waistline of her lower back. She says that her pain has improved since the fall back in December. However she continues to have pain with any movement and sitting and is only comfortable when she is laying flat on her back. She denies radiating pain. Denies numbness, tingling or other associated symptoms. She is currently wearing a back brace that was given to her at [facility] after the fall. The main reason she is her is to check on the healing of the fractures and to see whether or not she needs to continue to wear it. Patient says that when she wears the brace that she does not notice any significant improvement. Her daughter states that Darsahn is not comfortable removing the brace without doctors orders. Patient states that she is not comfortable for any length of time while wearing the brace. Her daughter also states that her pain has improved since the fall. 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 Before the fall she was able to side step but since then she has not been very mobile. 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 20 years ago had a kyphoplasty at the [facility]. Ortho Exam General General: Yes no acute distress Neurologic: Yes alert and Yes oriented x3 Psychologic: Yes reasonable and appropriate Spine SPINE TESTING CERVICAL THORACIC LUMBAR Musculoskeletal Strength 0=absent - 5=normal Details: Neurological exam of the lower extremities shows grade 2 ankle dorsiflexion bilaterally, grade 4 - plantarflexion, grade 2 knee extension and grade 0 hip flexion. 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 She is in a electric chair due to this muscle weakness. Normal sensations across all dermatomes. No hyperreflexia (more content not included)... Normal [facility] Abd Decub and/or Erect(Darrell blon 03-25-2025 Abd Decub and/or Erect([facility] Imaging Services [address] [place] [address] Abd Decub and/or Erect([facility] MR#: [id number] Acct: [id number] Name: TENA CANNON Rep #: [id number] : 1940 F 84 From: Joshua Cota DO PCP: Dr. Chey Kumar MD Status: PRE ER Study: Abd Decub and/or Erect([facility] Date of Exam: 0 03/25/25 Exam# [id number] Ordering Dr: Vicente Leon MD PROCEDURE: ABD DECUB AND/OR ERECT(PORTABLE 03/25/2025 REASON FOR EXAM: CONSTIPATION TECHNIQUE: ABD DECUB AND/OR ERECT(PORTABLE COMPARISON: December 08, 2024 CT FINDINGS: Bowel gas: Nonobstructing nonspecific bowel-gas pattern. [id number] fecal load consistent with constipation. Calcifications: No suspicious calcifications. Bones: Degenerative changes of the lumbar spine. Kyphoplasties cement in L3. Other: Cholecystectomy clips in the gallbladder fossa. Pronounced left convexity scoliosis of the thoracolumbar spine RAD/Abd Decub and/or Erect([facility] IMPRESSION: Possible fecal impaction in the rectum Reading [facility] CC: Dr. Vicente Leon MD; Dr. Chey Kumar MD Supervisor Glycerin: Signed [facility] Emergency Department Summary on 03-25-2025 Emergency Department Summary [facility] Medical Records Department [address] [place] [address] Emergency Department Summary 03/25/25 MR#: [id number] Acct: [id number] Name: TENA CANNON Rep #: [id number] : 1940 84 From: Vicente Leon MD PCP: Dr. Chey Kumar MD Status:REG ER Location: ED HPI HPI - GI History of Present Illness Chief Complaint: Constipation Narrative Narrative: 84-year-old female presents from [facility] with constipation for the last week or longer. She relates history that she is bed ridden and is taking oxycodone for 2 fractured vertebrae. She usually sits on the bedpan or has bowel movements in her briefs. She states for the last week she has not had a bowel movement or maybe only small hard stool. She is taking oxycodone for pain. Over the last few days she is experienced nausea and vomiting as well. No fevers or chills. She states she feels like she has to have a bowel movement and when she has her the pain it feels like she has to have a bowel movement but is unable to do so. [facility] Medical History History of fractured vertebra Polio Home Medications ???Medication ???Instructions ???Recorded ???Last Taken ???Type B Complete 1 tab PO DAILY 03/10/14 Unknown Hi story Prednisol 1% 1 drp DAILY PRN 03/10/14 Unknown H istory calcium 600 mg (as 1 ea PO BID 03/10/14 Unknown Histo ry carbonate)-vitamin D3 10 mcg (400 unit) tablet (Calcium 600 + D(3)) ciclopirox 0.77 % topical gel g TP BID 03/10/14 Unknown History (Loprox) ergocalciferol (vitamin D2) 50 mcg 50,000 unit PO QWEEK 03/10/14 Un known History (2,000 unit) tablet fluoxetine 20 mg tablet (Sarafem) 20 mg PO DAILY 03/10/14 Unknown H istory metronidazole 0.75 % (37.5 mg/5 0 g vaginal BID 03/10/14 Unknown H istory gram) vaginal gel (Vandazole) nystatin-triamcinolone 100,000 0 g TP BID 03/10/14 Unknown Histor y unit/g-0.1 % topical cream omeprazole 20 mg capsule,delayed 20 mg PO DAILY 03/10/14 Unknown Hi story release oxybutynin chloride 5 mg tablet 10 mg PO DAILY 03/10/14 Unknown Hi story timolol maleate 0.5 % eye drops 1 drp DAILY 03/10/14 Unknown Histo ry travoprost 0.004 % eye drops 1 drp DAILY 03/10/14 Unknown Histo ry (Travatan Z) oxycodone 5 mg tablet 5 mg PO BID pain 30 days #60 tabs 03/01/25 Unknown Rx oxycodone 5 mg tablet 5 mg PO Q6H PRN pain 30 days #120 03/07/25 Unknown Rx tabs Allergy/AdvReac Type Severity Reaction Status Date / Time cephalexin monohydrate (From AdvReac Diarrhea Verified 03/10/14 18:10 Keflex) BLOOD THINNERS AdvReac Other Uncoded 03/10/14 18:10 Social History Smoking Status: Unknown if ever smoked ROS ROS ED ROS Narrative Review of systems positive for diffuse abdominal pain and constipation. Few days ago had nausea and vomiting. No fevers or chills. There are no exacerbating or alleviating factors. EXAM Physical Exam Narrative Exam Narrative: Afebrile. Vital signs noted. Nontoxic-appearing. Cardiovascular examination reveals regular rate and rhythm with intermittent tachycardia. Lungs clear to auscultation bilaterally. Abdomen soft with minimal diffuse tenderness with positive bowel sounds. 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 Const Vital Signs: 03/25/25 16:46 03/25/25 16:57 Temperature 98.5 F Temperature Source Oral Pulse Rate 120 H Respiratory Rate 18 Blood Pressure 127/67 H Blood Pressure Mean 87 Pulse Ox 96 Oxygen Delivery Method Room Air MDM MDM MDM Narrative Medical decision making narrative: Differential diagnosis includes but not limited to constipation versus fecal impaction versus bowel obstruction. I have lower suspicion for bowel obstruction. She still feels as if she has to have a bowel movement. X-rays will be obtained and chaperoned rectal examination performed. On my independent interpretation of the x-rays of the abdomen, there is a nonobstructive pattern and probable fecal impaction. I reviewed the radiology report which confirms my independent interpretation. Chaperoned rectal examination did show hard stool which was removed with digital disimpaction. Patient tolerated procedure well. The hard stool was evacuated from the rectum is much as the fingers length would allow. At this point in time, she states she is already on senna but takes MiraLAX sporadically. She was told to take it more consistently at least once to twice a day. I feel she can be discharged to follow-up. Return instructions to the emergency department were reviewed. Disposition is discharged home in stable condition. History Record (more content not included)... Normal [facility] 03-22-2025 [facility] Telephone (FAMDNA) TENA CANNON ([id number]) 1940 F Date Time Provider Department 03/22/25 [...] daughter: Juan Call patient at: on cell [phone] (home) [phone] (cell) Was an appointment scheduled: No Closing statement: Results or non-symptom based questions: Thank you for calling [facility], your call will be returned within the next business day. [facility] Allergies As of Date: 03/22/2025 Noted Allergy Reaction KEFLEX (CEPHALEXIN) 05/12/2005 6 - Diarrhea 8 - GI Upset Comments: "extreme diarrhea" VIOXX (ROFECOXIB) 05/12/2005 5 - Intolerance Comments: "Makes capillaryblood vessels break" NOVOCAIN (PROCAINE HCL) 01/13/2024 5 - Intolerance Comments: headaches NSAIDS (NON-STEROIDAL ANTI-INFLAM*02/06/2025 16 - Unknown OMEGA-3 FISH OIL (OMEGA-3 FATTY A*05/05/2007 5 - Intolerance Comments: bleeding in eye ADVIL (IBUPROFEN) 05/28/2005 5 - Intolerance Comments: "Makes capillary blood vessels bread" ASA (SALICYLATES) 05/28/2005 5 - Intolerance Comments: "Makes capillary blood vessels break" Date Reviewed: 02/07/2025 Reviewed by: Yandy Cruz LPN - Fully Assessed Reason for Visit: FYI-No Action Needed [265] Prescriptions as of 03/22/2025 - sulfamethoxazole-trime thoprim (BACTRIM DS) 800-160 mg per tablet Take 1 tablet by mouth two times a day. - dextran 70-hypromellose (ARTIFICIAL TEARS,[id number],) 0.1-0.3 % ophthalmic solution Use 1 drop in both eyes two times a day. - lidocaine (ASPERFLEX, LIDOCAINE,) 4 % patch Apply 1 application as directed once daily. Apply to lower back, on for twelve hours, off for twelve hours. - dspmyubo-qyuf-pyh9-C-m ang-bosw (OSTEO BI-FLEX TRIPLE STRENGTH) 750 mg-644 [...] TEARS OPHTHALMIC) Use in eyes. - rutin/hesp/bioflav/C/h [id number] (BIOFLEX ORAL) Take 1 capsule by mouth twice daily. - CPAP BipaP @ 14/9 cm of water with humidification, removable water dispenser (for cleaning) . Mask (small/ per patient preference) , filters, tubing, humidifier and lifetime supplies. (G47.33, Z99.89) Obstructive sleep apnea on CPAP - cyclopentolate (more content not included)... Normal [facility] Absolute lymphocyte countOrd ered By: Chey Kumar on 03-07-2025 Lymphocytes Auto (Unsp spec) [#/Vol] 1.93 10*3/uL 0.83-4.51 [facility] Absolute neutrophil countOrd ered By: Chey Kumar on 03-07-2025 Neutrophils (Bld) [#/Vol] 1.9 10*3/uL Low 2.0-7.7 [facility] Anion gap in Serum or Plasma Ordered By: Chey Kumar on 03-07-2025 Anion gap [Moles/Vol] 10 mmol/L 5-15 [facility] Automated lymphocyte count a s percentage of total leukocytesOrdered By: Chey Kumar on 03-07-2025 Lymphocytes/100 WBC Auto (Unsp spec) 40.5 % 19-41 [facility] BUN/creatinine ratioOrdered By: Chey Kumar on 03-07-2025 Urea nitrogen/Creatinine [Mass ratio] 47.2 mg/mg High 10-20 [facility] Basophil percentageOrdered B y: Chey Kumar on 03-07-2025 Basophils/100 WBC (Bld) 1.1 % High 0-1 [facility] Carbon dioxide, total [Moles /volume] in Central venous bloodOrdered By: Chey Kumar on 03-07-2025 CO2 [Moles/Vol] 25.6 mmol/L 21.0-32.0 [facility] Chloride assayOrdered By: Walt Kumar on 03-07-2025 Chloride [Moles/Vol] 102 mmol/L 98-108 [facility] Eosinophil percentageOrdered By: Chey Kumar on 03-07-2025 Eosinophils/100 WBC (Bld) 3.6 % 0-5 [facility] Erythrocyte distribution wid th ratioOrdered By: Chey Kumar on 03-07-2025 Erythrocyte distribution width (RBC) [Ratio] 14.1 % 11.6-14.6 [facility] Erythrocyte distribution wid th standard deviationOrdered By: Chey Kumar on 03-07-2025 Erythrocyte distribution width (RBC) [Ratio] 49.0 fl High 35.1-43.9 [facility] Glomerular filtration rate ( GFR) estimation/1.73 sq m using serum, plasma, or whole bOrdered By: Chey Kumar on 03-07-2025 GFR/1.73 sq M.predicted among non-blacks MDRD (S/P/Bld) [Vol rate/Area] 108 mL/min/{1.73_m2} >60 [facility] Comment on above: mL/min/1.73m2 CKD-EP I Creatinine Equation (2020) Hematocrit Auto (Bld) [Volum e fraction]Ordered By: Chey Kumar on 03-07-2025 Hematocrit (Bld) [Volume fraction] 33.3 % Low 37-47 [facility] Hemoglobin measurementOrdere d By: Chey Kumar on 03-07-2025 Hemoglobin (Bld) [Mass/Vol] 10.9 g/dL Low 12.0-15.0 [facility] Immature granulocytes/100 WB C Auto (Bld)Ordered By: Chey Kumar on 03-07-2025 Immature granulocytes/100 WBC (Bld) 0.200 % 0.0-0.9 [facility] Comment on above: IG% - Immature Granu locytes (promyelocytes, myelocytes and metamyelocytes) > 1% indicates that a LEFT SHIFT is Present. MCV (mean corpuscular volume ) determinationOrdered By: Chey Kumar on 03-07-2025 MCV (RBC) [Entitic vol] 93.8 fL 81-99 [facility] Mean corpuscular hemoglobin (MCH) determinationOrdered By: garfield Kumar on 03-07-2025 MCH (RBC) [Entitic mass] 30.7 pg 27.0-32.0 [facility] Mean corpuscular hemoglobin concentration (MCHC) determinationOrdered By: Chey Kumar on 03-07-2025 MCHC (RBC) [Mass/Vol] 32.7 g/dL 32-36 [facility] Mean platelet volume determi nationOrdered By: Chey Kumar on 03-07-2025 Platelet mean volume (Bld) [Entitic vol] 11.3 fL 6.2-12.0 [facility] Monocyte percentageOrdered B y: Chey Kumar on 03-07-2025 Monocytes/100 WBC (Bld) 14.5 % High 0-10 [facility] Neutrophil percentageOrdered By: Chey Kumar on 03-07-2025 Neutrophils/100 WBC (Bld) 40.1 % Low 47-70 [facility] Nucleated red blood cell per centageOrdered By: Chey Kumar on 03-07-2025 Nucleated RBC/100 WBC (Bld) [Ratio] 0 % 0-5 [facility] Platelet countOrdered By: Walt Kumar on 03-07-2025 Platelets (Bld) [#/Vol] 238 10*3/uL 150-450 [facility] Potassium measurement (mass/ volume)Ordered By: Chey Kumar on 03-07-2025 Potassium (Unsp spec) [Mass/Vol] 3.8 mmol/L 3.3-5.1 [facility] RBC Auto (Bld) [#/Vol]Ordere d By: Chey Kumar on 03-07-2025 RBC (Bld) [#/Vol] 3.55 10*6/uL Low 4.2-5.4 [facility] Serum creatinine measurement (mass/volume)Ordered By: Chey Kumar on 03-07-2025 Creatinine [Mass/Vol] 0.25 mg/dL Low 0.70-1.20 [facility] Serum glucose measurement (m ass/volume)Ordered By: Chey Kumar on 03-07-2025 Glucose [Mass/Vol] 95 mg/dL 70-99 [facility] Serum or plasma calcium ori urement (mass/volume)Ordered By: Chey Kumar on 03-07-2025 Calcium [Mass/Vol] 9.8 mg/dL 7.6-11.0 [facility] Serum or plasma urea nitroge n measurement (mass/volume)Ordered By: Chey Kumar on 03-07-2025 Urea nitrogen [Mass/Vol] 12 mg/dL 4-19 [facility] Sodium levelOrdered By: Melinda Kumar on 03-07-2025 Sodium [Moles/Vol] 138 mmol/L 133-145 [facility] White blood cell (WBC) count Ordered By: Chey Kumar on 03-07-2025 WBC (Bld) [#/Vol] 4.8 10*3/uL 4.4-11.0 [facility] Absolute lymphocyte countOrd ered By: Chey Kumar on 02-28-2025 Lymphocytes Auto (Unsp spec) [#/Vol] 1.77 10*3/uL 0.83-4.51 [facility] Absolute neutrophil countOrd ered By: Chey Kumar on 02-28-2025 Neutrophils (Bld) [#/Vol] 2.6 10*3/uL 2.0-7.7 [facility] Anion gap in Serum or Plasma Ordered By: Chey Kumar on 02-28-2025 Anion gap [Moles/Vol] 10 mmol/L 5-15 [facility] Automated lymphocyte count a s percentage of total leukocytesOrdered By: Chey Kumar on 02-28-2025 Lymphocytes/100 WBC Auto (Unsp spec) 34.0 % 19-41 [facility] BUN/creatinine ratioOrdered By: Chey Kumar on 02-28-2025 Urea nitrogen/Creatinine [Mass ratio] 50.2 mg/mg High 10-20 [facility] Basophil percentageOrdered B y: Chey Kumar on 02-28-2025 Basophils/100 WBC (Bld) 1.2 % High 0-1 [facility] Carbon dioxide, total [Moles /volume] in Central venous bloodOrdered By: Chey Kumar on 02-28-2025 CO2 [Moles/Vol] 25.0 mmol/L 21.0-32.0 [facility] Chloride assayOrdered By: Walt garfield Kumar on 02-28-2025 Chloride [Moles/Vol] 101 mmol/L 98-108 [facility] Eosinophil percentageOrdered By: Chey Kumar on 02-28-2025 Eosinophils/100 WBC (Bld) 2.3 % 0-5 [facility] Erythrocyte distribution wid th ratioOrdered By: Chey Kumar on 02-28-2025 Erythrocyte distribution width (RBC) [Ratio] 14.2 % 11.6-14.6 [facility] Erythrocyte distribution wid th standard deviationOrdered By: Chey Kumar on 02-28-2025 Erythrocyte distribution width (RBC) [Ratio] 48.8 fl High 35.1-43.9 [facility] Glomerular filtration rate ( GFR) estimation/1.73 sq m using serum, plasma, or whole bOrdered By: Chey Kumar on 02-28-2025 GFR/1.73 sq M.predicted among non-blacks MDRD (S/P/Bld) [Vol rate/Area] 110 mL/min/{1.73_m2} >60 [facility] Comment on above: mL/min/1.73m2 CKD-EP I Creatinine Equation (2020) Hematocrit Auto (Bld) [Volum e fraction]Ordered By: Chey Kumar on 02-28-2025 Hematocrit (Bld) [Volume fraction] 33.2 % Low 37-47 [facility] Hemoglobin measurementOrdere d By: Chey Kumar on 02-28-2025 Hemoglobin (Bld) [Mass/Vol] 11.0 g/dL Low 12.0-15.0 [facility] Immature granulocytes/100 WB C Auto (Bld)Ordered By: Chey Kumar on 02-28-2025 Immature granulocytes/100 WBC (Bld) 0.200 % 0.0-0.9 [facility] Comment on above: IG% - Immature Granu locytes (promyelocytes, myelocytes and metamyelocytes) > 1% indicates that a LEFT SHIFT is Present. Iron measurement (mass/mass) Ordered By: Chey Kumar on 02-28-2025 Iron (Unsp spec) [Mass/Mass] 51 ug/dL 50-170 [facility] MCV (mean corpuscular volume ) determinationOrdered By: Chey Kumar on 02-28-2025 MCV (RBC) [Entitic vol] 93.3 fL 81-99 [facility] Mean corpuscular hemoglobin (MCH) determinationOrdered By: Chey Kumar on 02-28-2025 MCH (RBC) [Entitic mass] 30.9 pg 27.0-32.0 [facility] Mean corpuscular hemoglobin concentration (MCHC) determinationOrdered By: Chey Kumar on 02-28-2025 MCHC (RBC) [Mass/Vol] 33.1 g/dL 32-36 [facility] Mean platelet volume determi nationOrdered By: Chey Kumar on 02-28-2025 Platelet mean volume (Bld) [Entitic vol] 11.0 fL 6.2-12.0 [facility] Monocyte percentageOrdered B y: Chey Kumar on 02-28-2025 Monocytes/100 WBC (Bld) 12.9 % High 0-10 [facility] Neutrophil percentageOrdered By: hCey Kumar on 02-28-2025 Neutrophils/100 WBC (Bld) 49.4 % 47-70 [facility] No Panel InformationOrdered By: Chey Kumar on 02-28-2025 Unsaturated Iron Binding Capacity 120 ug/dL Low 228-428 [facility] Nucleated red blood cell per centageOrdered By: Chey Kumar on 02-28-2025 Nucleated RBC/100 WBC (Bld) [Ratio] 0 % 0-5 [facility] Platelet countOrdered By: Walt adeyoli Kumar on 02-28-2025 Platelets (Bld) [#/Vol] 228 10*3/uL 150-450 [facility] Potassium measurement (mass/ volume)Ordered By: Chey Kumar on 02-28-2025 Potassium (Unsp spec) [Mass/Vol] 4.0 mmol/L 3.3-5.1 [facility] RBC Auto (Bld) [#/Vol]Ordere d By: Chey Kumar on 02-28-2025 RBC (Bld) [#/Vol] 3.56 10*6/uL Low 4.2-5.4 [facility] Serum creatinine measurement (mass/volume)Ordered By: Chey Kumar on 02-28-2025 Creatinine [Mass/Vol] 0.24 mg/dL Low 0.70-1.20 [facility] Serum glucose measurement (m ass/volume)Ordered By: Chey Kumar on 02-28-2025 Glucose [Mass/Vol] 108 mg/dL High 70-99 [facility] Serum or plasma calcium ori urement (mass/volume)Ordered By: Chey Singletongriseldaalvin on 02-28-2025 Calcium [Mass/Vol] 9.5 mg/dL 7.6-11.0 [facility] Serum or plasma ferritin skylar surement (mass/volume)Ordered By: Chey Kumar on 02-28-2025 Ferritin [Mass/Vol] 1486 ng/mL High 22-378 [facility] Serum or plasma iron saturat ion measurement (mass fraction)Ordered By: Chey Kumar on 02-28-2025 Iron saturation [Mass fraction] 29.8 % 13-59 [facility] Comment on above: Previous reported re sult: 30.0 %Edited by: KAVYA on 02/28/25:0818 AMENDED REPORT 02/28/25817 IRON SATURATION previously reported as: 30.0 % Serum or plasma urea nitroge n measurement (mass/volume)Ordered By: Chey Kumar on 02-28-2025 Urea nitrogen [Mass/Vol] 12 mg/dL 4-19 [facility] Sodium levelOrdered By: Waltcarmen brittany Manigriseldaalvin on 02-28-2025 Sodium [Moles/Vol] 136 mmol/L 133-145 [facility] White blood cell (WBC) count Ordered By: Chey Kumar on 02-28-2025 WBC (Bld) [#/Vol] 5.2 10*3/uL 4.4-11.0 [facility] Absolute lymphocyte countOrd ered By: Chey Kumar on 02-21-2025 Lymphocytes Auto (Unsp spec) [#/Vol] 1.88 10*3/uL 0.83-4.51 [facility] Absolute neutrophil countOrd ered By: Chey Kumar on 02-21-2025 Neutrophils (Bld) [#/Vol] 1.7 10*3/uL Low 2.0-7.7 [facility] Anion gap in Serum or Plasma Ordered By: Chey Kumar on 02-21-2025 Anion gap [Moles/Vol] 10 mmol/L 5-15 [facility] Automated lymphocyte count a s percentage of total leukocytesOrdered By: Chey Kumar on 02-21-2025 Lymphocytes/100 WBC Auto (Unsp spec) 43.4 % High 19-41 [facility] BUN/creatinine ratioOrdered By: Chey Kumar on 02-21-2025 Urea nitrogen/Creatinine [Mass ratio] 33.9 mg/mg High 10-20 [facility] Basophil percentageOrdered B y: Chey Kumar on 02-21-2025 Basophils/100 WBC (Bld) 1.4 % High 0-1 [facility] Carbon dioxide, total [Moles /volume] in Central venous bloodOrdered By: Chey Kumar on 02-21-2025 CO2 [Moles/Vol] 24.2 mmol/L 21.0-32.0 [facility] Chloride assayOrdered By: Walt carmenbrittany Kumar on 02-21-2025 Chloride [Moles/Vol] 100 mmol/L 98-108 [facility] Eosinophil percentageOrdered By: Chey Kumar on 02-21-2025 Eosinophils/100 WBC (Bld) 1.8 % 0-5 [facility] Erythrocyte distribution wid th ratioOrdered By: Chey Kumar on 02-21-2025 Erythrocyte distribution width (RBC) [Ratio] 14.3 % 11.6-14.6 [facility] Erythrocyte distribution wid th standard deviationOrdered By: Melindalyndhurstyoli Kumar on 02-21-2025 Erythrocyte distribution width (RBC) [Ratio] 47.4 fl High 35.1-43.9 [facility] Glomerular filtration rate ( GFR) estimation/1.73 sq m using serum, plasma, or whole bOrdered By: Chey Kumar on 02-21-2025 GFR/1.73 sq M.predicted among non-blacks MDRD (S/P/Bld) [Vol rate/Area] 102 mL/min/{1.73_m2} >60 [facility] Comment on above: mL/min/1.73m2 CKD-EP I Creatinine Equation (2020) Hematocrit Auto (Bld) [Volum e fraction]Ordered By: Chey Kumar on 02-21-2025 Hematocrit (Bld) [Volume fraction] 31.2 % Low 37-47 [facility] Hemoglobin measurementOrdere d By: Chey Kumar on 02-21-2025 Hemoglobin (Bld) [Mass/Vol] 10.7 g/dL Low 12.0-15.0 [facility] Immature granulocytes/100 WB C Auto (Bld)Ordered By: Chey Kumar on 02-21-2025 Immature granulocytes/100 WBC (Bld) 0.200 % 0.0-0.9 [facility] Comment on above: IG% - Immature Granu locytes (promyelocytes, myelocytes and metamyelocytes) > 1% indicates that a LEFT SHIFT is Present. MCV (mean corpuscular volume ) determinationOrdered By: Chey Kumar on 02-21-2025 MCV (RBC) [Entitic vol] 91.0 fL 81-99 [facility] Mean corpuscular hemoglobin (MCH) determinationOrdered By: Chey Kumar on 02-21-2025 MCH (RBC) [Entitic mass] 31.2 pg 27.0-32.0 [facility] Mean corpuscular hemoglobin concentration (MCHC) determinationOrdered By: Chey Kumar on 02-21-2025 MCHC (RBC) [Mass/Vol] 34.3 g/dL 32-36 [facility] Mean platelet volume determi nationOrdered By: Chey Kumar on 02-21-2025 Platelet mean volume (Bld) [Entitic vol] 11.2 fL 6.2-12.0 [facility] Monocyte percentageOrdered B y: Chey Kumar on 02-21-2025 Monocytes/100 WBC (Bld) 14.8 % High 0-10 [facility] Neutrophil percentageOrdered By: Chey Kumar on 02-21-2025 Neutrophils/100 WBC (Bld) 38.4 % Low 47-70 [facility] Nucleated red blood cell per centageOrdered By: Chey Kumar on 02-21-2025 Nucleated RBC/100 WBC (Bld) [Ratio] 0 % 0-5 [facility] Platelet countOrdered By: Walt Kumar on 02-21-2025 Platelets (Bld) [#/Vol] 280 10*3/uL 150-450 [facility] Potassium measurement (mass/ volume)Ordered By: Chey Maniaubrey on 02-21-2025 Potassium (Unsp spec) [Mass/Vol] 4.3 mmol/L 3.3-5.1 [facility] RBC Auto (Bld) [#/Vol]Ordere d By: Chey Maniaubrey on 02-21-2025 RBC (Bld) [#/Vol] 3.43 10*6/uL Low 4.2-5.4 [facility] Serum creatinine measurement (mass/volume)Ordered By: Waltcarmenbrittany Manigriseldaalvin on 02-21-2025 Creatinine [Mass/Vol] 0.31 mg/dL Low 0.70-1.20 [facility] Serum glucose measurement (m ass/volume)Ordered By: Waltcarmenshayoli Singletongriseldaalvin on 02-21-2025 Glucose [Mass/Vol] 88 mg/dL 70-99 [facility] Serum or plasma calcium oir urement (mass/volume)Ordered By: Chey Manigriseldaalvin on 02-21-2025 Calcium [Mass/Vol] 10.0 mg/dL 7.6-11.0 [facility] Serum or plasma urea nitroge n measurement (mass/volume)Ordered By: Waltcarmenbrittany Manigriseldaalvin on 02-21-2025 Urea nitrogen [Mass/Vol] 11 mg/dL 4-19 [facility] Sodium levelOrdered By: Melinda soto Manigriseldaalvin on 02-21-2025 Sodium [Moles/Vol] 134 mmol/L 133-145 [facility] White blood cell (WBC) count Ordered By: Waltcarmenshayoli Singletongriseldaalvin on 02-21-2025 WBC (Bld) [#/Vol] 4.3 10*3/uL Low 4.4-11.0 [facility] Absolute lymphocyte countOrd ered By: Chey Manigriseldaalvin on 02-14-2025 Lymphocytes Auto (Unsp spec) [#/Vol] 1.92 10*3/uL 0.83-4.51 [facility] Absolute neutrophil countOrd ered By: Waltcarmenshayoli Singletongriseldaalvin on 02-14-2025 Neutrophils (Bld) [#/Vol] 2.1 10*3/uL 2.0-7.7 [facility] Anion gap in Serum or Plasma Ordered By: Chey Singletongriseldaalvin on 02-14-2025 Anion gap [Moles/Vol] 10 mmol/L 5-15 [facility] Automated lymphocyte count a s percentage of total leukocytesOrdered By: Chey Singletongriseldaalvin on 02-14-2025 Lymphocytes/100 WBC Auto (Unsp spec) 39.8 % 19-41 [facility] BUN/creatinine ratioOrdered By: lyndhurstyoli Singletongriseldaalvin on 02-14-2025 Urea nitrogen/Creatinine [Mass ratio] 44.8 mg/mg High 10-20 [facility] Basophil percentageOrdered B y: Filibertoyoli Singletongriseldaalvin on 02-14-2025 Basophils/100 WBC (Bld) 0.8 % 0-1 [facility] Carbon dioxide, total [Moles /volume] in Central venous bloodOrdered By: Melindayoli Singletongriseldaalvin on 02-14-2025 CO2 [Moles/Vol] 26.0 mmol/L 21.0-32.0 [facility] Chloride assayOrdered By: carmenyoli Singletongriseldaalvin on 02-14-2025 Chloride [Moles/Vol] 102 mmol/L 98-108 [facility] Eosinophil percentageOrdered By: lyndhurstyoli Singletongriseldaalvin on 02-14-2025 Eosinophils/100 WBC (Bld) 2.5 % 0-5 [facility] Erythrocyte distribution wid th ratioOrdered By: Waltcarmenshayoli Singletongriseldaalvin on 02-14-2025 Erythrocyte distribution width (RBC) [Ratio] 14.1 % 11.6-14.6 [facility] Erythrocyte distribution wid th standard deviationOrdered By: [facility] Singletongriselda on 02-14-2025 Erythrocyte distribution width (RBC) [Ratio] 48.4 fl High 35.1-43.9 [facility] Glomerular filtration rate ( GFR) estimation/1.73 sq m using serum, plasma, or whole bOrdered By: Chey Singletongriseldaalvin on 02-14-2025 GFR/1.73 sq M.predicted among non-blacks MDRD (S/P/Bld) [Vol rate/Area] 110 mL/min/{1.73_m2} >60 [facility] Comment on above: mL/min/1.73m2 CKD-EP I Creatinine Equation (2020) Hematocrit Auto (Bld) [Volum e fraction]Ordered By: Chey Kumar on 02-14-2025 Hematocrit (Bld) [Volume fraction] 31.6 % Low 37-47 [facility] Hemoglobin measurementOrdere d By: Chey Kumar on 02-14-2025 Hemoglobin (Bld) [Mass/Vol] 10.4 g/dL Low 12.0-15.0 [facility] Immature granulocytes/100 WB C Auto (Bld)Ordered By: Chey Kumar on 02-14-2025 Immature granulocytes/100 WBC (Bld) 0.200 % 0.0-0.9 [facility] Comment on above: IG% - Immature Granu locytes (promyelocytes, myelocytes and metamyelocytes) > 1% indicates that a LEFT SHIFT is Present. MCV (mean corpuscular volume ) determinationOrdered By: Chey uKmar on 02-14-2025 MCV (RBC) [Entitic vol] 93.8 fL 81-99 [facility] Mean corpuscular hemoglobin (MCH) determinationOrdered By: Chey Kumar on 02-14-2025 MCH (RBC) [Entitic mass] 30.9 pg 27.0-32.0 [facility] Mean corpuscular hemoglobin concentration (MCHC) determinationOrdered By: Chey Kumar on 02-14-2025 MCHC (RBC) [Mass/Vol] 32.9 g/dL 32-36 [facility] Mean platelet volume determi nationOrdered By: Chey Kumar on 02-14-2025 Platelet mean volume (Bld) [Entitic vol] 10.4 fL 6.2-12.0 [facility] Monocyte percentageOrdered B y: Chey Kumar on 02-14-2025 Monocytes/100 WBC (Bld) 13.3 % High 0-10 [facility] Neutrophil percentageOrdered By: Chey Kumar on 02-14-2025 Neutrophils/100 WBC (Bld) 43.4 % Low 47-70 [facility] Nucleated red blood cell per centageOrdered By: Chey Kumar on 02-14-2025 Nucleated RBC/100 WBC (Bld) [Ratio] 0 % 0-5 [facility] Platelet countOrdered By: Walt garfield Kumar on 02-14-2025 Platelets (Bld) [#/Vol] 280 10*3/uL 150-450 [facility] Potassium measurement (mass/ volume)Ordered By: Waltcarmenbrittany Maniaubrey on 02-14-2025 Potassium (Unsp spec) [Mass/Vol] 3.8 mmol/L 3.3-5.1 [facility] RBC Auto (Bld) [#/Vol]Ordere d By: Chey Kumar on 02-14-2025 RBC (Bld) [#/Vol] 3.37 10*6/uL Low 4.2-5.4 [facility] Serum creatinine measurement (mass/volume)Ordered By: Waltcarmenbrittany Maniaubrey on 02-14-2025 Creatinine [Mass/Vol] 0.23 mg/dL Low 0.70-1.20 [facility] Serum glucose measurement (m ass/volume)Ordered By: Waltcarmenbrittany Maniaubrey on 02-14-2025 Glucose [Mass/Vol] 92 mg/dL 70-99 [facility] Serum or plasma calcium ori urement (mass/volume)Ordered By: Waltcarmenshayoli Singletonaubrey 02-14-2025 Calcium [Mass/Vol] 9.7 mg/dL 7.6-11.0 [facility] Serum or plasma urea nitroge n measurement (mass/volume)Ordered By: Waltcarmenshayoli Singletongriseldaalvin on 02-14-2025 Urea nitrogen [Mass/Vol] 10 mg/dL 4-19 [facility] Sodium levelOrdered By: Melinda soto Manigriseldaalvin on 02-14-2025 Sodium [Moles/Vol] 138 mmol/L 133-145 [facility] White blood cell (WBC) count Ordered By: Waltcarmenshayoli Singletongriseldaalvin 02-14-2025 WBC (Bld) [#/Vol] 4.8 10*3/uL 4.4-11.0 [facility] 02-10-2025 [facility] Telephone (UROSafiaWS) TENA CANNON ([id number]) 1940 F Date Time Provider Department 02/10/25 [...] LPN 02/10/2025 9:37 AM Signed Order [facility] [place]: sulfamethoxazole-trime thoprim (BACTRIM DS) 800-160 mg per tablet [[id number]] Original entry by Marilyn Santos PA-C 02/09/2025 [...] AM Signed Faxed order and results to [place]. LOBO Armas Kimberly DISPENSING AUDIOLOGIST 02/14/2025 9:52 AM Signed Called [facility], patient on [address]. Spoke with LOBO Soto. Reports patient had been transferred halls. LOBO Soto informed of orders and she will update facility provider. Yandy Cruz LPN Allergies As of Date: 02/10/2025 Noted Allergy Reaction KEFLEX (CEPHALEXIN) 05/12/2005 6 - Diarrhea 8 - GI Upset Comments: "extreme diarrhea" VIOXX (ROFECOXIB) 05/12/2005 5 - Intolerance Comments: "Makes capillaryblood vessels break" NOVOCAIN (PROCAINE HCL) 01/13/2024 5 - Intolerance Comments: headaches NSAIDS (NON-STEROIDAL ANTI-INFLAM*02/06/2025 16 - Unknown OMEGA-3 FISH OIL (OMEGA-3 FATTY A*05/05/2007 5 - Intolerance Comments: bleeding in eye ADVIL (IBUPROFEN) 05/28/2005 5 - Intolerance Comments: "Makes capillary blood vessels bread" ASA (SALICYLATES) 05/28/2005 5 - Intolerance Comments: "Makes capillary blood vessels break" Date Reviewed: 02/07/2025 Reviewed by: Yandy Cruz LPN - Fully Assessed Reason for Visit: Results [95] Orders [681] Prescriptions as of 02/14/2025 - sulfamethoxazole-trime thoprim (BACTRIM DS) 800-160 mg per tablet Take 1 tablet by mouth two times a day. - dextran 70-hypromellose (ARTIFICIAL TEARS,[id number],) 0.1-0.3 % ophthalmic solution Use 1 drop in both eyes two times a day. - lidocaine (ASPERFLEX, LIDOCAINE,) 4 % patch Apply 1 application as directed once daily. Apply to lower back, on for twelve hours, off for twelve hours. - syfiwwme-blfm-apw4-C-m ang-bosw (OSTEO BI-FLEX TRIPLE STRENGTH) 750 mg-644 [...] at bedtim (more content not included)... Normal [facility] Potassium measurement (mass/ volume)Ordered By: Chey Kumar on 02-09-2025 Potassium (Unsp spec) [Mass/Vol] 4.1 mmol/L 3.3-5.1 [facility] [place] 02-08-2025 [facility] Telephone (UROLWS) TENA CANNON ([id number]) 1940 F Date Time Provider Department 02/08/25 NARCISO SHERMAN During your visit today, we recorded the following information about you: Yandy Cruz LPN 02/08/2025 8:37 AM Signed Called [facility] to obtain fax number. Spoke with LOBO Burk on [facility] [place] (Transition of Care). Fax number is . LOBO Armas Kimberly, LPN 02/08/2025 8:37 AM Signed Faxed urology office notes to facility. Yandy Cruz LPN Allergies As of Date: 02/08/2025 Noted Allergy Reaction KEFLEX (CEPHALEXIN) 05/12/2005 6 - Diarrhea 8 - GI Upset Comments: "extreme diarrhea" VIOXX (ROFECOXIB) 05/12/2005 5 - Intolerance Comments: "Makes capillaryblood vessels break" NOVOCAIN (PROCAINE HCL) 01/13/2024 5 - Intolerance Comments: headaches NSAIDS (NON-STEROIDAL ANTI-INFLAM*02/06/2025 16 - Unknown OMEGA-3 FISH OIL (OMEGA-3 FATTY A*05/05/2007 5 - Intolerance Comments: bleeding in eye ADVIL (IBUPROFEN) 05/28/2005 5 - Intolerance Comments: "Makes capillary blood vessels bread" ASA (SALICYLATES) 05/28/2005 5 - Intolerance Comments: "Makes capillary blood vessels break" Date Reviewed: 02/07/2025 Reviewed by: Yandy Cruz LPN - Fully Assessed 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 - lidocaine (ASPERFLEX, LIDOCAINE,) 4 % patch Apply 1 application as directed once daily. Apply to lower back, on for twelve hours, off for twelve hours. - kliklalb-kgme-wyu2-C-m ang-bosw (OSTEO BI-FLEX TRIPLE STRENGTH) 750 mg-644 [...] 02/08/2025 Not (more content not included)... Normal [facility] Absolute lymphocyte countOrd ered By: Chey Kumar on 02-07-2025 Lymphocytes Auto (Unsp spec) [#/Vol] 1.60 10*3/uL 0.83-4.51 [facility] Absolute neutrophil countOrd ered By: Chey Kumar on 02-07-2025 Neutrophils (Bld) [#/Vol] 1.7 10*3/uL Low 2.0-7.7 [facility] Anion gap in Serum or Plasma Ordered By: Chey Kumar on 02-07-2025 Anion gap [Moles/Vol] 11 mmol/L 5-15 [facility] Automated lymphocyte count a s percentage of total leukocytesOrdered By: Chey Kumar on 02-07-2025 Lymphocytes/100 WBC Auto (Unsp spec) 40.6 % - [facility] BUN/creatinine ratioOrdered By: Waltcarmenshayoli Singletonaubrey on 02-07-2025 Urea nitrogen/Creatinine [Mass ratio] 46.6 mg/mg High 10-20 [facility] Bacteria Ur Culton Bacteria identified Cx [...] , Intermediate >32 , Resistant >64 Abnormal [facility] Comment on above: Performed By: #### 6 30-4 ####[facility] LABCLIA [id number] [place] [address] [place] Basophil percentageOrdered B y: Chey Kumar on 02-07-2025 Basophils/100 WBC (Bld) 0.8 % 0-1 [facility] CNOVon 02-07-2025 CNOV Office Visit (UROLWS ) CANNONTENA Esquivel ([id number]) 1940 F Date Time Provider Department 02/07/25 11:00 AM NARCISO SHERMAN UROELISE During your visit today, we recorded the following information about you: Temperature Pulse Respiration Blood pressure 97.1 degrees 102/minute 14/minute 110/72 Narciso Sherman PA-C 02/07/2025 11:35 AM Signed [facility] NEW PATIENT CLINIC NOTE (F) Note was generated by [employer] and edited as appropriate SERVICE DATE: [...] 0.96 mg/dL Final MEDICATIONS: dextran 70-hypromellose (ARTIFICIAL TEARS,[id number],) 0.1-0.3 % ophthalmic solution Use 1 drop in both eyes two times a day. lidocaine (ASPERFLEX, LIDOCAINE,) 4 % patch Apply 1 application as directed once daily. Apply to lower back, on for twelve hours, off for twelve hours. bakuedsc-xrhv-upn2-C-m ang-bosw (OSTEO BI-FLEX TRIPLE STRENGTH) 750 mg-644 [...] MEAL b (more content not included)... Normal [facility] Carbon dioxide, total [Moles /volume] in Central venous bloodOrdered By: Chey Kumar on 02-07-2025 CO2 [Moles/Vol] 26.7 mmol/L 21.0-32.0 [facility] Chloride assayOrdered By: Walt Kumar on 02-07-2025 Chloride [Moles/Vol] 101 mmol/L 98-108 [facility] Eosinophil percentageOrdered By: Chey Kumar on 02-07-2025 Eosinophils/100 WBC (Bld) 3.0 % 0-5 [facility] Erythrocyte distribution wid th ratioOrdered By: carmenlyndhurstyoli Kumar on 02-07-2025 Erythrocyte distribution width (RBC) [Ratio] 14.1 % 11.6-14.6 [facility] Erythrocyte distribution wid th standard deviationOrdered By: carmenlyndhurstyoli Kumar on 02-07-2025 Erythrocyte distribution width (RBC) [Ratio] 47.3 fl High 35.1-43.9 [facility] Glomerular filtration rate ( GFR) estimation/1.73 sq m using serum, plasma, or whole bOrdered By: Chey Kumar on 02-07-2025 GFR/1.73 sq M.predicted among non-blacks MDRD (S/P/Bld) [Vol rate/Area] 111 mL/min/{1.73_m2} >60 [facility] Comment on above: mL/min/1.73m2 CKD-EP I Creatinine Equation (2020) Hematocrit Auto (Bld) [Volum e fraction]Ordered By: Chey Kumar on 02-07-2025 Hematocrit (Bld) [Volume fraction] 30.8 % Low 37-47 [facility] Hemoglobin measurementOrdere d By: Chey Kumar on 02-07-2025 Hemoglobin (Bld) [Mass/Vol] 10.4 g/dL Low 12.0-15.0 [facility] Immature granulocytes/100 WB C Auto (Bld)Ordered By: Chey Kumar on 02-07-2025 Immature granulocytes/100 WBC (Bld) 0.300 % 0.0-0.9 [facility] Comment on above: IG% - Immature Granu locytes (promyelocytes, myelocytes and metamyelocytes) > 1% indicates that a LEFT SHIFT is Present. MCV (mean corpuscular volume ) determinationOrdered By: Chey Kumar on 02-07-2025 MCV (RBC) [Entitic vol] 91.9 fL 81-99 [facility] Mean corpuscular hemoglobin (MCH) determinationOrdered By: Chey Kumar on 02-07-2025 MCH (RBC) [Entitic mass] 31.0 pg 27.0-32.0 [facility] Mean corpuscular hemoglobin concentration (MCHC) determinationOrdered By: Chey Kumar on 02-07-2025 MCHC (RBC) [Mass/Vol] 33.8 g/dL 32-36 [facility] Mean platelet volume determi nationOrdered By: Chey Kumar on 02-07-2025 Platelet mean volume (Bld) [Entitic vol] 10.4 fL 6.2-12.0 [facility] Monocyte percentageOrdered B y: Chey Kumar on 02-07-2025 Monocytes/100 WBC (Bld) 13.2 % High 0-10 [facility] Neutrophil percentageOrdered By: [facility] on 02-07-2025 Neutrophils/100 WBC (Bld) 42.1 % Low 47-70 [facility] Nucleated red blood cell per centageOrdered By: garfield Kumar on 02-07-2025 Nucleated RBC/100 WBC (Bld) [Ratio] 0 % 0-5 [facility] Platelet countOrdered By: Walt carmenbrittany Kumar on 02-07-2025 Platelets (Bld) [#/Vol] 289 10*3/uL 150-450 [facility] Potassium measurement (mass/ volume)Ordered By: Chey Kumar on 02-07-2025 Potassium (Unsp spec) [Mass/Vol] 3.1 mmol/L Low 3.3-5.1 [facility] RBC Auto (Bld) [#/Vol]Ordere d By: Chey Kumar on 02-07-2025 RBC (Bld) [#/Vol] 3.35 10*6/uL Low 4.2-5.4 [facility] Serum creatinine measurement (mass/volume)Ordered By: Chey Kumar on 02-07-2025 Creatinine [Mass/Vol] 0.22 mg/dL Low 0.70-1.20 [facility] Serum glucose measurement (m ass/volume)Ordered By: Chey Kumar on 02-07-2025 Glucose [Mass/Vol] 92 mg/dL 70-99 [facility] Serum or plasma calcium ori urement (mass/volume)Ordered By: Chey Kumar on 02-07-2025 Calcium [Mass/Vol] 9.5 mg/dL 7.6-11.0 [facility] Serum or plasma urea nitroge n measurement (mass/volume)Ordered By: Chey Kumar on 02-07-2025 Urea nitrogen [Mass/Vol] 10 mg/dL 4-19 [facility] Sodium levelOrdered By: Melinda Kumar on 02-07-2025 Sodium [Moles/Vol] 139 mmol/L 133-145 [facility] UA DIP, URINE (POC)on 2024 BILIRUBIN UA (POCT) Small Abnormal Negative [facility] CLARITY UA (POCT) Cloudy [facility] COLOR UA (POCT) Dark yellow [facility] GLUCOSE UA (POCT) Negative Negative mg/dL [facility] Hemoglobin Ql (U) Small Abnormal Negative [facility] Interpretation and review of laboratory results Abnormal [facility] KETONE UA (POCT) 40 mg/dL [facility] LEUKOCYTES UA (POCT) Large Abnormal Negative [facility] NITRITE UA (POCT) Negative [facility] PH UA (POCT) 5.5 4.5 - 8.0 [facility] Protein Ql (U) 30 mg/dL Abnormal Negative [facility] SPECIFIC GRAVITY UA (POCT) 1.025 1.005 - 1.030 [facility] UROBILINOGEN UA (POCT) 0.2 Radha l E.U./dL [facility] Location:[facility], [address] [facility] [place], [place], [id number] [place] [address] POINT OF CARE [facility] White blood cell (WBC) count Ordered By: Chey Kumar on 02-07-2025 WBC (Bld) [#/Vol] 3.9 10*3/uL Low 4.4-11.0 [facility] Absolute lymphocyte countOrd ered By: Chey Kumar on 01-31-2025 Lymphocytes Auto (Unsp spec) [#/Vol] 1.76 10*3/uL 0.83-4.51 [facility] Absolute neutrophil countOrd ered By: Chey Kumar on 01-31-2025 Neutrophils (Bld) [#/Vol] 2.1 10*3/uL 2.0-7.7 [facility] Anion gap in Serum or Plasma Ordered By: Chey Kumar on 01-31-2025 Anion gap [Moles/Vol] 9 mmol/L 5-15 [facility] Automated lymphocyte count a s percentage of total leukocytesOrdered By: Chey Kumar on 01-31-2025 Lymphocytes/100 WBC Auto (Unsp spec) 39.6 % 19-41 [facility] BUN/creatinine ratioOrdered By: Chey Kumar on 01-31-2025 Urea nitrogen/Creatinine [Mass ratio] 69.3 mg/mg High 10-20 [facility] Basophil percentageOrdered B y: Chey Kumar on 01-31-2025 Basophils/100 WBC (Bld) 0.4 % 0-1 [facility] Carbon dioxide, total [Moles /volume] in Central venous bloodOrdered By: Chey Kumar on 01-31-2025 CO2 [Moles/Vol] 26.9 mmol/L 21.0-32.0 [facility] Chloride assayOrdered By: Walt Kumar on 01-31-2025 Chloride [Moles/Vol] 101 mmol/L 98-108 [facility] Eosinophil percentageOrdered By: Chey Kumar on 01-31-2025 Eosinophils/100 WBC (Bld) 1.8 % 0-5 [facility] Erythrocyte distribution wid th ratioOrdered By: Chey Kumar on 01-31-2025 Erythrocyte distribution width (RBC) [Ratio] 14.3 % 11.6-14.6 [facility] Erythrocyte distribution wid th standard deviationOrdered By: Chey Kumar on 01-31-2025 Erythrocyte distribution width (RBC) [Ratio] 48.9 fl High 35.1-43.9 [facility] Glomerular filtration rate ( GFR) estimation/1.73 sq m using serum, plasma, or whole bOrdered By: Chey Kumar on 01-31-2025 GFR/1.73 sq M.predicted among non-blacks MDRD (S/P/Bld) [Vol rate/Area] 110 mL/min/{1.73_m2} >60 [facility] Comment on above: mL/min/1.73m2 CKD-EP I Creatinine Equation (2020) Hematocrit Auto (Bld) [Volum e fraction]Ordered By: Chey Kumar on 01-31-2025 Hematocrit (Bld) [Volume fraction] 32.6 % Low 37-47 [facility] Hemoglobin measurementOrdere d By: Chey Kumar on 01-31-2025 Hemoglobin (Bld) [Mass/Vol] 10.8 g/dL Low 12.0-15.0 [facility] Immature granulocytes/100 WB C Auto (Bld)Ordered By: Chey Kumar on 01-31-2025 Immature granulocytes/100 WBC (Bld) 0.200 % 0.0-0.9 [facility] Comment on above: IG% - Immature Granu locytes (promyelocytes, myelocytes and metamyelocytes) > 1% indicates that a LEFT SHIFT is Present. MCV (mean corpuscular volume ) determinationOrdered By: Chey Kumar on 01-31-2025 MCV (RBC) [Entitic vol] 93.9 fL 81-99 [facility] Mean corpuscular hemoglobin (MCH) determinationOrdered By: Chey Kumar on 01-31-2025 MCH (RBC) [Entitic mass] 31.1 pg 27.0-32.0 [facility] Mean corpuscular hemoglobin concentration (MCHC) determinationOrdered By: Chey Kumar 01-31-2025 MCHC (RBC) [Mass/Vol] 33.1 g/dL 32-36 [facility] Mean platelet volume determi nationOrdered By: Chey Kumar on 01-31-2025 Platelet mean volume (Bld) [Entitic vol] 11.2 fL 6.2-12.0 [facility] Monocyte percentageOrdered B y: Chey Kumar on 01-31-2025 Monocytes/100 WBC (Bld) 10.6 % High 0-10 [facility] Neutrophil percentageOrdered By: Chey uKmar on 01-31-2025 Neutrophils/100 WBC (Bld) 47.4 % 47-70 [facility] Nucleated red blood cell per centageOrdered By: Chey Kumar on 01-31-2025 Nucleated RBC/100 WBC (Bld) [Ratio] 0 % 0-5 [facility] Platelet countOrdered By: Walt Kumar on 01-31-2025 Platelets (Bld) [#/Vol] 167 10*3/uL 150-450 [facility] Potassium measurement (mass/ volume)Ordered By: Chey Kumar on 01-31-2025 Potassium (Unsp spec) [Mass/Vol] 3.8 mmol/L 3.3-5.1 [facility] RBC Auto (Bld) [#/Vol]Ordere d By: Chey Kumar on 01-31-2025 RBC (Bld) [#/Vol] 3.47 10*6/uL Low 4.2-5.4 [facility] Serum creatinine measurement (mass/volume)Ordered By: Chey Kumar on 01-31-2025 Creatinine [Mass/Vol] 0.23 mg/dL Low 0.70-1.20 [facility] Serum glucose measurement (m ass/volume)Ordered By: Chey Kumar on 01-31-2025 Glucose [Mass/Vol] 98 mg/dL 70-99 [facility] Serum or plasma calcium ori urement (mass/volume)Ordered By: Chey Kumar on 01-31-2025 Calcium [Mass/Vol] 9.6 mg/dL 7.6-11.0 [facility] Serum or plasma urea nitroge n measurement (mass/volume)Ordered By: Chey Kumar on 01-31-2025 Urea nitrogen [Mass/Vol] 16 mg/dL 4-19 [facility] Sodium levelOrdered By: Melinda soto Maniaubrey on 01-31-2025 Sodium [Moles/Vol] 136 mmol/L 133-145 [facility] White blood cell (WBC) count Ordered By: Waltcarmenbrittany Manigriseldaalvin on 01-31-2025 WBC (Bld) [#/Vol] 4.5 10*3/uL 4.4-11.0 [facility] Absolute lymphocyte countOrd ered By: Waltcarmenbrittany Maniaubrey on 01-24-2025 Lymphocytes Auto (Unsp spec) [#/Vol] 1.68 10*3/uL 0.83-4.51 [facility] Absolute neutrophil countOrd ered By: Waltcarmenbrittany Mengalvin on 01-24-2025 Neutrophils (Bld) [#/Vol] 3.1 10*3/uL 2.0-7.7 [facility] Anion gap in Serum or Plasma Ordered By: Melindabrittany Manigriseldaalvin on 01-24-2025 Anion gap [Moles/Vol] 11 mmol/L 5-15 [facility] Automated lymphocyte count a s percentage of total leukocytesOrdered By: Waltcaremnshayoli Singletongriseldaalvin on 01-24-2025 Lymphocytes/100 WBC Auto (Unsp spec) 30.5 % 19-41 [facility] BUN/creatinine ratioOrdered By: Melindashayoli Singletongriseldaalvin on 01-24-2025 Urea nitrogen/Creatinine [Mass ratio] 56.5 mg/mg High 10-20 [facility] Basophil percentageOrdered B y: Chey Manigriseldaalvin on 01-24-2025 Basophils/100 WBC (Bld) 0.7 % 0-1 [facility] Carbon dioxide, total [Moles /volume] in Central venous bloodOrdered By: Waltcarmenshayoli Singletongriseldaalvin on 01-24-2025 CO2 [Moles/Vol] 26.2 mmol/L 21.0-32.0 [facility] Chloride assayOrdered By: Walt carmenbrittany Singletongriseldaalvin on 01-24-2025 Chloride [Moles/Vol] 100 mmol/L 98-108 [facility] Eosinophil percentageOrdered By: Chey Kumar on 01-24-2025 Eosinophils/100 WBC (Bld) 1.5 % 0-5 [facility] Erythrocyte distribution wid th ratioOrdered By: Chey Kumar on 01-24-2025 Erythrocyte distribution width (RBC) [Ratio] 14.2 % 11.6-14.6 [facility] Erythrocyte distribution wid th standard deviationOrdered By: Chey Kumar on 01-24-2025 Erythrocyte distribution width (RBC) [Ratio] 47.5 fl High 35.1-43.9 [facility] Glomerular filtration rate ( GFR) estimation/1.73 sq m using serum, plasma, or whole bOrdered By: Melindalyndhurstyoli Kumar on 01-24-2025 GFR/1.73 sq M.predicted among non-blacks MDRD (S/P/Bld) [Vol rate/Area] 102 mL/min/{1.73_m2} >60 [facility] Comment on above: mL/min/1.73m2 CKD-EP I Creatinine Equation (2020) Hematocrit Auto (Bld) [Volum e fraction]Ordered By: Chey Kumar on 01-24-2025 Hematocrit (Bld) [Volume fraction] 36.1 % Low 37-47 [facility] Hemoglobin measurementOrdere d By: Chey Kumar on 01-24-2025 Hemoglobin (Bld) [Mass/Vol] 12.0 g/dL 12.0-15.0 [facility] Immature granulocytes/100 WB C Auto (Bld)Ordered By: Chey Kumar 01-24-2025 Immature granulocytes/100 WBC (Bld) 0.500 % 0.0-0.9 [facility] Comment on above: IG% - Immature Granu locytes (promyelocytes, myelocytes and metamyelocytes) > 1% indicates that a LEFT SHIFT is Present. MCV (mean corpuscular volume ) determinationOrdered By: Chey Kumar on 01-24-2025 MCV (RBC) [Entitic vol] 92.1 fL 81-99 [facility] Mean corpuscular hemoglobin (MCH) determinationOrdered By: Chey Kumar 01-24-2025 MCH (RBC) [Entitic mass] 30.6 pg 27.0-32.0 [facility] Mean corpuscular hemoglobin concentration (MCHC) determinationOrdered By: Chey Kumar on 01-24-2025 MCHC (RBC) [Mass/Vol] 33.2 g/dL 32-36 [facility] Mean platelet volume determi nationOrdered By: Chey Kumar on 01-24-2025 Platelet mean volume (Bld) [Entitic vol] 11.0 fL 6.2-12.0 [facility] Monocyte percentageOrdered B y: Chey Kumar on 01-24-2025 Monocytes/100 WBC (Bld) 10.3 % High 0-10 [facility] Neutrophil percentageOrdered By: Chey Kumar on 01-24-2025 Neutrophils/100 WBC (Bld) 56.5 % 47-70 [facility] Nucleated red blood cell per centageOrdered By: Chey Kumar on 01-24-2025 Nucleated RBC/100 WBC (Bld) [Ratio] 0 % 0-5 [facility] Platelet countOrdered By: Walt Kumar on 01-24-2025 Platelets (Bld) [#/Vol] 177 10*3/uL 150-450 [facility] Potassium measurement (mass/ volume)Ordered By: Chey Kumar on 01-24-2025 Potassium (Unsp spec) [Mass/Vol] 3.5 mmol/L 3.3-5.1 [facility] RBC Auto (Bld) [#/Vol]Ordere d By: Chey Kumar on 01-24-2025 RBC (Bld) [#/Vol] 3.92 10*6/uL Low 4.2-5.4 [facility] Serum creatinine measurement (mass/volume)Ordered By: Chey Kuamr on 01-24-2025 Creatinine [Mass/Vol] 0.31 mg/dL Low 0.70-1.20 [facility] Serum glucose measurement (m ass/volume)Ordered By: Chey Kumar on 01-24-2025 Glucose [Mass/Vol] 97 mg/dL 70-99 [facility] Serum or plasma calcium ori urement (mass/volume)Ordered By: Chey Singletongriseldaalvin on 01-24-2025 Calcium [Mass/Vol] 9.5 mg/dL 7.6-11.0 [facility] Serum or plasma urea nitroge n measurement (mass/volume)Ordered By: Chey Singletongriseldaalvin on 01-24-2025 Urea nitrogen [Mass/Vol] 18 mg/dL 4-19 [facility] Sodium levelOrdered By: Melinda soto Manigriseldaalvin on 01-24-2025 Sodium [Moles/Vol] 136 mmol/L 133-145 [facility] White blood cell (WBC) count Ordered By: Melindashayoli Singletongriseldaalvin on 01-24-2025 WBC (Bld) [#/Vol] 5.5 10*3/uL 4.4-11.0 [facility] Absolute lymphocyte countOrd ered By: Melindashayoli Singletongriseldaalvin on 01-17-2025 Lymphocytes Auto (Unsp spec) [#/Vol] 1.51 10*3/uL 0.83-4.51 [facility] Absolute neutrophil countOrd ered By: Waltcarmenshayoli Singletongriseldaalvin on 01-17-2025 Neutrophils (Bld) [#/Vol] 3.1 10*3/uL 2.0-7.7 [facility] Anion gap in Serum or Plasma Ordered By: Chey Singletongriseldaalvin on 01-17-2025 Anion gap [Moles/Vol] 9 mmol/L 5-15 [facility] Automated lymphocyte count a s percentage of total leukocytesOrdered By: Chey Singletongriseldaalvin on 01-17-2025 Lymphocytes/100 WBC Auto (Unsp spec) 28.1 % 19-41 [facility] BUN/creatinine ratioOrdered By: Melindashayoli Singletongriseldaalvin on 01-17-2025 Urea nitrogen/Creatinine [Mass ratio] 72.0 mg/mg High 10-20 [facility] Basophil percentageOrdered B y: Melindashayoli Singletongriseldaalvin on 01-17-2025 Basophils/100 WBC (Bld) 0.4 % 0-1 [facility] Carbon dioxide, total [Moles /volume] in Central venous bloodOrdered By: Chey Kumar on 01-17-2025 CO2 [Moles/Vol] 27.5 mmol/L 21.0-32.0 [facility] Chloride assayOrdered By: Walt Kumar on 01-17-2025 Chloride [Moles/Vol] 101 mmol/L 98-108 [facility] Eosinophil percentageOrdered By: Chey Kumar on 01-17-2025 Eosinophils/100 WBC (Bld) 1.1 % 0-5 [facility] Erythrocyte distribution wid th ratioOrdered By: garfield Kumar on 01-17-2025 Erythrocyte distribution width (RBC) [Ratio] 13.7 % 11.6-14.6 [facility] Erythrocyte distribution wid th standard deviationOrdered By: carmenlyndhurstyoli Kumar on 01-17-2025 Erythrocyte distribution width (RBC) [Ratio] 44.9 fl High 35.1-43.9 [facility] Glomerular filtration rate ( GFR) estimation/1.73 sq m using serum, plasma, or whole bOrdered By: Chey Kumar on 01-17-2025 GFR/1.73 sq M.predicted among non-blacks MDRD (S/P/Bld) [Vol rate/Area] 104 mL/min/{1.73_m2} >60 [facility] Comment on above: mL/min/1.73m2 CKD-EP I Creatinine Equation (2020) Hematocrit Auto (Bld) [Volum e fraction]Ordered By: Chey Kumar on 01-17-2025 Hematocrit (Bld) [Volume fraction] 34.5 % Low 37-47 [facility] Hemoglobin measurementOrdere d By: Chey Kumar on 01-17-2025 Hemoglobin (Bld) [Mass/Vol] 11.8 g/dL Low 12.0-15.0 [facility] Immature granulocytes/100 WB C Auto (Bld)Ordered By: Chey Kumar on 01-17-2025 Immature granulocytes/100 WBC (Bld) 1.300 % High 0.0-0.9 [facility] Comment on above: IG% - Immature Granu locytes (promyelocytes, myelocytes and metamyelocytes) > 1% indicates that a LEFT SHIFT is Present. MCV (mean corpuscular volume ) determinationOrdered By: Chey Kumar on 01-17-2025 MCV (RBC) [Entitic vol] 90.8 fL 81-99 [facility] Mean corpuscular hemoglobin (MCH) determinationOrdered By: Chey Kmuar on 01-17-2025 MCH (RBC) [Entitic mass] 31.1 pg 27.0-32.0 [facility] Mean corpuscular hemoglobin concentration (MCHC) determinationOrdered By: Chey Kumar on 01-17-2025 MCHC (RBC) [Mass/Vol] 34.2 g/dL 32-36 [facility] Mean platelet volume determi nationOrdered By: Chey Kumar on 01-17-2025 Platelet mean volume (Bld) [Entitic vol] 10.1 fL 6.2-12.0 [facility] Monocyte percentageOrdered B y: Chey Kumar on 01-17-2025 Monocytes/100 WBC (Bld) 12.3 % High 0-10 [facility] Neutrophil percentageOrdered By: carmenlyndhurstyoli Kumar on 01-17-2025 Neutrophils/100 WBC (Bld) 56.8 % 47-70 [facility] Nucleated red blood cell per centageOrdered By: Chey Kumar on 01-17-2025 Nucleated RBC/100 WBC (Bld) [Ratio] 0 % 0-5 [facility] Platelet countOrdered By: Walt carmenbrittany Kumar on 01-17-2025 Platelets (Bld) [#/Vol] 273 10*3/uL 150-450 [facility] Potassium measurement (mass/ volume)Ordered By: Chey Kumar on 01-17-2025 Potassium (Unsp spec) [Mass/Vol] 3.5 mmol/L 3.3-5.1 [facility] RBC Auto (Bld) [#/Vol]Ordere d By: Chey Kumar on 01-17-2025 RBC (Bld) [#/Vol] 3.80 10*6/uL Low 4.2-5.4 [facility] Serum creatinine measurement (mass/volume)Ordered By: Chey Kumar on 01-17-2025 Creatinine [Mass/Vol] 0.30 mg/dL Low 0.70-1.20 [facility] Serum glucose measurement (m ass/volume)Ordered By: Chey Kumar on 01-17-2025 Glucose [Mass/Vol] 77 mg/dL 70-99 [facility] Serum or plasma calcium ori urement (mass/volume)Ordered By: Chey Kumar on 01-17-2025 Calcium [Mass/Vol] 9.4 mg/dL 7.6-11.0 [facility] Serum or plasma urea nitroge n measurement (mass/volume)Ordered By: Chey Kumar on 01-17-2025 Urea nitrogen [Mass/Vol] 21 mg/dL High 4-19 [facility] Sodium levelOrdered By: Melinda perezrhona Stacy on 01-17-2025 Sodium [Moles/Vol] 137 mmol/L 133-145 [facility] White blood cell (WBC) count Ordered By: Chey Kumar on 01-17-2025 WBC (Bld) [#/Vol] 5.4 10*3/uL 4.4-11.0 [facility] Absolute lymphocyte countOrd ered By: Chey Kumar on 01-10-2025 Lymphocytes Auto (Unsp spec) [#/Vol] 1.00 10*3/uL 0.83-4.51 [facility] Absolute neutrophil countOrd ered By: Chey Kumar on 01-10-2025 Neutrophils (Bld) [#/Vol] 3.8 10*3/uL 2.0-7.7 [facility] Anion gap in Serum or Plasma Ordered By: Chey Singletongriseldaalvin on 01-10-2025 Anion gap [Moles/Vol] 11 mmol/L 5-15 [facility] Automated lymphocyte count a s percentage of total leukocytesOrdered By: Chey Kumar on 01-10-2025 Lymphocytes/100 WBC Auto (Unsp spec) 17.7 % Low 19-41 [facility] BUN/creatinine ratioOrdered By: Chey Kumar on 01-10-2025 Urea nitrogen/Creatinine [Mass ratio] 61.3 mg/mg High 10-20 [facility] Basophil percentageOrdered B y: Chey Kumar on 01-10-2025 Basophils/100 WBC (Bld) 0.4 % 0-1 [facility] Bilirubin Test strip Ql (U)O rdered By: Chey Kumar on 01-10-2025 Bilirubin Ql (U) Negative Negative [facility] Carbon dioxide, total [Moles /volume] in Central venous bloodOrdered By: Chey Kumar on 01-10-2025 CO2 [Moles/Vol] 25.8 mmol/L 21.0-32.0 [facility] Chloride assayOrdered By: Walt Kumar on 01-10-2025 Chloride [Moles/Vol] 97 mmol/L Low 98-108 [facility] Eosinophil percentageOrdered By: Chey Kumar on 01-10-2025 Eosinophils/100 WBC (Bld) 1.9 % 0-5 [facility] Erythrocyte distribution wid th ratioOrdered By: Chey Kumar on 01-10-2025 Erythrocyte distribution width (RBC) [Ratio] 13.6 % 11.6-14.6 [facility] Erythrocyte distribution wid th standard deviationOrdered By: Chey Kumar on 01-10-2025 Erythrocyte distribution width (RBC) [Ratio] 44.9 fl High 35.1-43.9 [facility] Glomerular filtration rate ( GFR) estimation/1.73 sq m using serum, plasma, or whole bOrdered By: Chey Kumar on 01-10-2025 GFR/1.73 sq M.predicted among non-blacks MDRD (S/P/Bld) [Vol rate/Area] 106 mL/min/{1.73_m2} >60 [facility] Comment on above: mL/min/1.73m2 CKD-EP I Creatinine Equation (2020) Hematocrit Auto (Bld) [Volum e fraction]Ordered By: Chey Kumar on 01-10-2025 Hematocrit (Bld) [Volume fraction] 31.1 % Low 37-47 [facility] Hemoglobin measurementOrdere d By: Chey Kumar on 01-10-2025 Hemoglobin (Bld) [Mass/Vol] 10.7 g/dL Low 12.0-15.0 [facility] Immature granulocytes/100 WB C Auto (Bld)Ordered By: Waltcarmenshayoli Singletongriseldaalvin on 01-10-2025 Immature granulocytes/100 WBC (Bld) 0.700 % 0.0-0.9 [facility] Comment on above: IG% - Immature Granu locytes (promyelocytes, myelocytes and metamyelocytes) > 1% indicates that a LEFT SHIFT is Present. Ketones Test strip Ql (U)Ord ered By: Chey Kumar on 01-10-2025 Ketones Ql (U) 5 mg/dl High Negative [facility] MCV (mean corpuscular volume ) determinationOrdered By: Chey Kumar on 01-10-2025 MCV (RBC) [Entitic vol] 91.2 fL 81-99 [facility] Mean corpuscular hemoglobin (MCH) determinationOrdered By: Chey Kumar on 01-10-2025 MCH (RBC) [Entitic mass] 31.4 pg 27.0-32.0 [facility] Mean corpuscular hemoglobin concentration (MCHC) determinationOrdered By: Chey Singletongriseldaalvin on 01-10-2025 MCHC (RBC) [Mass/Vol] 34.4 g/dL 32-36 [facility] Mean platelet volume determi nationOrdered By: Chey Kumar on 01-10-2025 Platelet mean volume (Bld) [Entitic vol] 10.3 fL 6.2-12.0 [facility] Monocyte percentageOrdered B y: Chey Kumar on 01-10-2025 Monocytes/100 WBC (Bld) 12.4 % High 0-10 [facility] Neutrophil percentageOrdered By: carmenlyndhurstyoli Singletonalvin on 01-10-2025 Neutrophils/100 WBC (Bld) 66.9 % 47-70 [facility] Nitrite Test strip Ql (U)Ord ered By: garfield Kumar on 01-10-2025 Nitrite Ql (U) Negative Negative [facility] Nucleated red blood cell per centageOrdered By: Melindashayoli Kumar on 01-10-2025 Nucleated RBC/100 WBC (Bld) [Ratio] 0 % 0-5 [facility] Platelet countOrdered By: Walt garfield Maniaubrey on 01-10-2025 Platelets (Bld) [#/Vol] 327 10*3/uL 150-450 [facility] Potassium measurement (mass/ volume)Ordered By: Chey Kumar on 01-10-2025 Potassium (Unsp spec) [Mass/Vol] 3.9 mmol/L 3.3-5.1 [facility] Protein Test strip Ql (U)Ord ered By: Melindashayoli Kumar on 01-10-2025 Protein Ql (U) 30 mg/dl High Negative [facility] RBC Auto (Bld) [#/Vol]Ordere d By: Waltcarmenshayoli Singletonaubrey on 01-10-2025 RBC (Bld) [#/Vol] 3.41 10*6/uL Low 4.2-5.4 [facility] Serum creatinine measurement (mass/volume)Ordered By: Chey Kumar on 01-10-2025 Creatinine [Mass/Vol] 0.27 mg/dL Low 0.70-1.20 [facility] Serum glucose measurement (m ass/volume)Ordered By: Chey Kumar on 01-10-2025 Glucose [Mass/Vol] 94 mg/dL 70-99 [facility] [place] Serum or plasma calcium ori urement (mass/volume)Ordered By: Chey Kumar on 01-10-2025 Calcium [Mass/Vol] 9.4 mg/dL 7.6-11.0 [facility] [place] Serum or plasma urea nitroge n measurement (mass/volume)Ordered By: Chey Kumar on 01-10-2025 Urea nitrogen [Mass/Vol] 17 mg/dL 4-19 [facility] Serum or plasma uric acid me asurement (mass/volume)Ordered By: Chey Kumar on 01-10-2025 Urate [Mass/Vol] 2.5 mg/dL Low 2.6-6.0 [facility] Comment on above: The drugs N-Acetylcy steine and Metamizole may falsely depress this assay. Sodium levelOrdered By: Melinda perezrhona Stacy on 01-10-2025 Sodium [Moles/Vol] 133 mmol/L 133-145 [facility] [place] Urine clarityOrdered By: Gary Kumar on 01-10-2025 Clarity (U) Sl. Cloudy Clear [facility] Urine color determinationOrd ered By: Chey Kumar on 01-10-2025 Color (U) Yellow Yellow [facility] Urine glucose detectionOrder ed By: Chey Kumar on 01-10-2025 Glucose Ql (U) Normal mg/dl Normal [facility] Urine leukocyte esterase det ection by dipstickOrdered By: Chey Kumar on 01-10-2025 Leukocyte esterase Test strip Ql (U) 500 /ul High Negative [facility] Urine pHOrdered By: Kadie Kumar on 01-10-2025 pH (U) 6.0 [pH] 5.0 - 8.0 [facility] Urine specific gravity measu rementOrdered By: Chey Kumar on 01-10-2025 Specific gravity (U) [Rel density] 1.015 1.002-1.030 [facility] Urine urobilinogen measureme ntOrdered By: Chey Kumar on 01-10-2025 Urobilinogen Ql (U) 1 mg/dl High Normal [facility] White blood cell (WBC) count Ordered By: Chey Kumar on 01-10-2025 WBC (Bld) [#/Vol] 5.7 10*3/uL 4.4-11.0 [facility] Absolute lymphocyte countOrd ered By: Chey Kumar on 01-03-2025 Lymphocytes Auto (Unsp spec) [#/Vol] 1.03 10*3/uL 0.83-4.51 [facility] Absolute neutrophil countOrd ered By: Chey Kumar on 01-03-2025 Neutrophils (Bld) [#/Vol] 2.4 10*3/uL 2.0-7.7 [facility] Anion gap in Serum or Plasma Ordered By: Chey Kumar on 01-03-2025 Anion gap [Moles/Vol] 11 mmol/L 5-15 [facility] Automated lymphocyte count a s percentage of total leukocytesOrdered By: Chey Kumar on 01-03-2025 Lymphocytes/100 WBC Auto (Unsp spec) 24.9 % 19-41 [facility] BUN/creatinine ratioOrdered By: Melindalyndhurstyoli Kumar on 01-03-2025 Urea nitrogen/Creatinine [Mass ratio] 73.7 mg/mg High 10-20 [facility] Basophil percentageOrdered B y: Chey Kumar on 01-03-2025 Basophils/100 WBC (Bld) 0.5 % 0-1 [facility] Carbon dioxide, total [Moles /volume] in Central venous bloodOrdered By: Chey Kumar on 01-03-2025 CO2 [Moles/Vol] 25.6 mmol/L 21.0-32.0 [facility] Chloride assayOrdered By: Walt Kumar on 01-03-2025 Chloride [Moles/Vol] 99 mmol/L 98-108 [facility] Eosinophil percentageOrdered By: garfield Kumar on 01-03-2025 Eosinophils/100 WBC (Bld) 2.2 % 0-5 [facility] Erythrocyte distribution wid th ratioOrdered By: Chey Kumar on 01-03-2025 Erythrocyte distribution width (RBC) [Ratio] 13.2 % 11.6-14.6 [facility] Erythrocyte distribution wid th standard deviationOrdered By: carmenlyndhurstyoli Kumar on 01-03-2025 Erythrocyte distribution width (RBC) [Ratio] 42.9 fl 35.1-43.9 [facility] Glomerular filtration rate ( GFR) estimation/1.73 sq m using serum, plasma, or whole bOrdered By: Chey Kumar on 01-03-2025 GFR/1.73 sq M.predicted among non-blacks MDRD (S/P/Bld) [Vol rate/Area] 113 mL/min/{1.73_m2} >60 [facility] Comment on above: mL/min/1.73m2 CKD-EP I Creatinine Equation (2021) Hematocrit Auto (Bld) [Volum e fraction]Ordered By: Chey Kumar on 01-03-2025 Hematocrit (Bld) [Volume fraction] 32.1 % Low 37-47 [facility] Hemoglobin measurementOrdere d By: Chey Kumar on 01-03-2025 Hemoglobin (Bld) [Mass/Vol] 11.2 g/dL Low 12.0-15.0 [facility] Immature granulocytes/100 WB C Auto (Bld)Ordered By: garfield Kumar on 01-03-2025 Immature granulocytes/100 WBC (Bld) 0.200 % 0.0-0.9 [facility] Comment on above: IG% - Immature Granu locytes (promyelocytes, myelocytes and metamyelocytes) > 1% indicates that a LEFT SHIFT is Present. MCV (mean corpuscular volume ) determinationOrdered By: Chey Kumar on 01-03-2025 MCV (RBC) [Entitic vol] 91.2 fL 81-99 [facility] Mean corpuscular hemoglobin (MCH) determinationOrdered By: carmenlyndhurstyoli Kumar on 01-03-2025 MCH (RBC) [Entitic mass] 31.8 pg 27.0-32.0 [facility] Mean corpuscular hemoglobin concentration (MCHC) determinationOrdered By: garfield Kumar on 01-03-2025 MCHC (RBC) [Mass/Vol] 34.9 g/dL 32-36 [facility] Mean platelet volume determi nationOrdered By: Chey Kumar on 01-03-2025 Platelet mean volume (Bld) [Entitic vol] 10.1 fL 6.2-12.0 [facility] Monocyte percentageOrdered B y: Chey Kumar on 01-03-2025 Monocytes/100 WBC (Bld) 13.8 % High 0-10 [facility] Neutrophil percentageOrdered By: carmenlyndhurstyoli Kumar on 01-03-2025 Neutrophils/100 WBC (Bld) 58.4 % 47-70 [facility] Nucleated red blood cell per centageOrdered By: garfield Kumar on 01-03-2025 Nucleated RBC/100 WBC (Bld) [Ratio] 0 % 0-5 [facility] Platelet countOrdered By: Walt Kumar on 01-03-2025 Platelets (Bld) [#/Vol] 223 10*3/uL 150-450 [facility] Potassium measurement (mass/ volume)Ordered By: Chey Kumar on 01-03-2025 Potassium (Unsp spec) [Mass/Vol] 3.5 mmol/L 3.3-5.1 [facility] RBC Auto (Bld) [#/Vol]Ordere d By: Chey Kumar on 01-03-2025 RBC (Bld) [#/Vol] 3.52 10*6/uL Low 4.2-5.4 [facility] Serum creatinine measurement (mass/volume)Ordered By: Chey Kumar on 01-03-2025 Creatinine [Mass/Vol] 0.21 mg/dL Low 0.70-1.20 [facility] Serum glucose measurement (m ass/volume)Ordered By: Chey Kumar on 01-03-2025 Glucose [Mass/Vol] 95 mg/dL 70-99 [facility] [place] Serum or plasma calcium ori urement (mass/volume)Ordered By: Chey Kumar on 01-03-2025 Calcium [Mass/Vol] 9.1 mg/dL 7.6-11.0 [facility] [place] Serum or plasma urea nitroge n measurement (mass/volume)Ordered By: Chey Kumar on 01-03-2025 Urea nitrogen [Mass/Vol] 15 mg/dL 4-19 [facility] Sodium levelOrdered By: Melinda aguilaralvin Stacy on 01-03-2025 Sodium [Moles/Vol] 135 mmol/L 133-145 [facility] [place] White blood cell (WBC) count Ordered By: Chey Kumar on 01-03-2025 WBC (Bld) [#/Vol] 4.1 10*3/uL Low 4.4-11.0 [facility] Bilirubin Test strip Ql (U)O rdered By: Chey Kumar on 12-28-2024 Bilirubin Ql (U) Negative Negative [facility] Ketones Test strip Ql (U)Ord ered By: Chey Kumar on 12-28-2024 Ketones Ql (U) 5 mg/dl High Negative [facility] Nitrite Test strip Ql (U)Ord ered By: Chey Kumar on 12-28-2024 Nitrite Ql (U) Negative Negative [facility] Protein Test strip Ql (U)Ord ered By: Chey Kumar on 12-28-2024 Protein Ql (U) 100 mg/dl High Negative [facility] Urine clarityOrdered By: Gary Kumar on 12-28-2024 Clarity (U) Turbid Clear [facility] Urine color determinationOrd ered By: Chey Kumar on 12-28-2024 Color (U) Straw Yellow [facility] Urine cultureOrdered By: Gary Kumar on 12-28-2024 Bacteria identified Cx Nom (U) Pseudomonas aeruginosa Abnormal [facility] Urine glucose detectionOrder ed By: Chey Kumar on 12-28-2024 Glucose Ql (U) Normal mg/dl Normal [facility] Urine leukocyte esterase det ection by dipstickOrdered By: Chey Kumar on 12-28-2024 Leukocyte esterase Test strip Ql (U) 500 /ul High Negative [facility] Urine pHOrdered By: Kadie Kumar on 12-28-2024 pH (U) 6.5 [pH] 5.0 - 8.0 [facility] Urine specific gravity measu rementOrdered By: Chey Kumar on 12-28-2024 Specific gravity (U) [Rel density] 1.015 1.002-1.030 [facility] Urine urobilinogen measureme ntOrdered By: Chey Kumar on 12-28-2024 Urobilinogen Ql (U) Normal mg/dl Normal [facility] Absolute lymphocyte countOrd ered By: Chey Kumar on 12-27-2024 Lymphocytes Auto (Unsp spec) [#/Vol] 1.07 10*3/uL 0.83-4.51 [facility] Absolute neutrophil countOrd ered By: Chey Kumar on 12-27-2024 Neutrophils (Bld) [#/Vol] 4.9 10*3/uL 2.0-7.7 [facility] Anion gap in Serum or Plasma Ordered By: Chey Kumar on 12-27-2024 Anion gap [Moles/Vol] 9 mmol/L 5-15 [facility] Automated lymphocyte count a s percentage of total leukocytesOrdered By: Chey Kumar on 12-27-2024 Lymphocytes/100 WBC Auto (Unsp spec) 15.4 % Low 19-41 [facility] BUN/creatinine ratioOrdered By: carmenlyndhurstyoli Kumar on 12-27-2024 Urea nitrogen/Creatinine [Mass ratio] 40.9 mg/mg High 10-20 [facility] Basophil percentageOrdered B y: Chey Kumar on 12-27-2024 Basophils/100 WBC (Bld) 0.3 % 0-1 [facility] Carbon dioxide, total [Moles /volume] in Central venous bloodOrdered By: Chey Kumar on 12-27-2024 CO2 [Moles/Vol] 26.8 mmol/L 21.0-32.0 [facility] Chloride assayOrdered By: Walt Kumar on 12-27-2024 Chloride [Moles/Vol] 98 mmol/L 98-108 [facility] Eosinophil percentageOrdered By: garfield Kumar on 12-27-2024 Eosinophils/100 WBC (Bld) 1.6 % 0-5 [facility] Erythrocyte distribution wid th ratioOrdered By: Chey Kumar on 12-27-2024 Erythrocyte distribution width (RBC) [Ratio] 13.2 % 11.6-14.6 [facility] Erythrocyte distribution wid th standard deviationOrdered By: carmenlyndhurstyoli Kumar on 12-27-2024 Erythrocyte distribution width (RBC) [Ratio] 44.3 fl High 35.1-43.9 [facility] Glomerular filtration rate ( GFR) estimation/1.73 sq m using serum, plasma, or whole bOrdered By: Chey Kumar on 12-27-2024 GFR/1.73 sq M.predicted among non-blacks MDRD (S/P/Bld) [Vol rate/Area] 105 mL/min/{1.73_m2} >60 [facility] Comment on above: mL/min/1.73m2 CKD-EP I Creatinine Equation (2020) Hematocrit Auto (Bld) [Volum e fraction]Ordered By: Chey Kumar on 12-27-2024 Hematocrit (Bld) [Volume fraction] 33.4 % Low 37-47 [facility] Hemoglobin A1c percentageOrd ered By: Chey Kumar on 12-27-2024 HbA1c (Bld) [Mass fraction] 5.1 % <5.7 [facility] Comment on above: Normal < 5.7 % Predi abetic 5.7 - 6.4 % Diabetic >or= 6.5 % Please note range changes. Hemoglobin measurementOrdere d By: Chey Kumar on 12-27-2024 Hemoglobin (Bld) [Mass/Vol] 11.5 g/dL Low 12.0-15.0 [facility] Immature granulocytes/100 WB C Auto (Bld)Ordered By: Chey Kumar on 12-27-2024 Immature granulocytes/100 WBC (Bld) 0.100 % 0.0-0.9 [facility] Comment on above: IG% - Immature Granu locytes (promyelocytes, myelocytes and metamyelocytes) > 1% indicates that a LEFT SHIFT is Present. MCV (mean corpuscular volume ) determinationOrdered By: Chey Kumar on 12-27-2024 MCV (RBC) [Entitic vol] 93.0 fL 81-99 [facility] Mean corpuscular hemoglobin (MCH) determinationOrdered By: Chey Kumar on 12-27-2024 MCH (RBC) [Entitic mass] 32.0 pg 27.0-32.0 [facility] Mean corpuscular hemoglobin concentration (MCHC) determinationOrdered By: Chey Kumar on 12-27-2024 MCHC (RBC) [Mass/Vol] 34.4 g/dL 32-36 [facility] Mean platelet volume determi nationOrdered By: Chey Kumar on 12-27-2024 Platelet mean volume (Bld) [Entitic vol] 10.6 fL 6.2-12.0 [facility] Monocyte percentageOrdered B y: Waltcarmenbrittany Maniaubrey on 12-27-2024 Monocytes/100 WBC (Bld) 12.1 % High 0-10 [facility] Neutrophil percentageOrdered By: Waltgarfield Singletongriseldaalvin on 12-27-2024 Neutrophils/100 WBC (Bld) 70.5 % High 47-70 [facility] Nucleated red blood cell per centageOrdered By: Chey Kumar on 12-27-2024 Nucleated RBC/100 WBC (Bld) [Ratio] 0 % 0-5 [facility] Platelet countOrdered By: Walt carmenbrittany Kumar on 12-27-2024 Platelets (Bld) [#/Vol] 217 10*3/uL 150-450 [facility] Potassium measurement (mass/ volume)Ordered By: Chey Kumar on 12-27-2024 Potassium (Unsp spec) [Mass/Vol] 3.7 mmol/L 3.3-5.1 [facility] RBC Auto (Bld) [#/Vol]Ordere d By: Chey Kumar on 12-27-2024 RBC (Bld) [#/Vol] 3.59 10*6/uL Low 4.2-5.4 [facility] Serum creatinine measurement (mass/volume)Ordered By: Chey Kumar on 12-27-2024 Creatinine [Mass/Vol] 0.28 mg/dL Low 0.70-1.20 [facility] Serum glucose measurement (m ass/volume)Ordered By: Chey Kumar on 12-27-2024 Glucose [Mass/Vol] 85 mg/dL 70-99 [facility] Serum or plasma calcium ori urement (mass/volume)Ordered By: Chey Kumar on 12-27-2024 Calcium [Mass/Vol] 8.9 mg/dL 7.6-11.0 [facility] Serum or plasma urea nitroge n measurement (mass/volume)Ordered By: Chey Kumar 12-27-2024 Urea nitrogen [Mass/Vol] 11 mg/dL 4-19 [facility] Sodium levelOrdered By: Melinda Kumar on 12-27-2024 Sodium [Moles/Vol] 134 mmol/L 133-145 [facility] White blood cell (WBC) count Ordered By: Chey Kumar on 12-27-2024 WBC (Bld) [#/Vol] 7.0 10*3/uL 4.4-11.0 [facility] CNPNon 12-23-2024 CNPN Telephone (NEAGCLM) TENA CANNON ([id number]) 1940 F Date Time Provider Department 12/23/24 [...] daughter we would be in office again as its the holiday and she said that's a long time, I provided daughter with office address and phone number and proper EXT to push Allergies As of Date: 12/23/2024 Noted Allergy Reaction KEFLEX (CEPHALEXIN) 05/12/2005 6 - Diarrhea 8 - GI Upset Comments: "extreme diarrhea" VIOXX (ROFECOXIB) 05/12/2005 5 - Intolerance Comments: "Makes capillaryblood vessels break" NOVOCAIN (PROCAINE HCL) 01/13/2024 5 - Intolerance Comments: headaches OMEGA-3 FISH OIL (OMEGA-3 FATTY A*05/05/2007 5 - Intolerance Comments: bleeding in eye ADVIL (IBUPROFEN) 05/28/2005 5 - Intolerance Comments: "Makes capillary blood vessels bread" ASA (SALICYLATES) 05/28/2005 5 - Intolerance Comments: "Makes capillary blood vessels break" Date Reviewed: 12/19/2024 Reviewed by: Theresa Gonzales, RN - Fully Assessed Prescriptions as of 12/23/2024 [...] - cyclopentola (more content not included)... Normal [facility] Agustina 12-22-2024 [facility] Telephone (FPWADS) TENA CANNON ([id number]) 1940 F Date Time Provider Department 12/22/24 [...] T11 and T12; she is currently at [facility]. Daughter states she is in so much pain and waiting 8 weeks in pain and would like to have surgery if possible. Daughter states her Mom is of sound mind and wants to MOVE forward. Patient has been identified by name and birthdate. Duration of symptoms: N/A Person calling: daughter: Juan [phone] Was an appointment scheduled: No Closing statement: Symptom Call: Thank you for calling [facility], your call is very important. A nurse will call in approximately 2-4 hours during business hours. If this is an emergency, please contact 911. Sahra Hooker MD 12/22/2024 9:55 AM Signed Spine surgery consult initiate. Dr Shawn Dorsey in [facility] is the most aggressive surgeon we're familiar with. Not sure that surgery for compression fracture is an option. Encounter Diagnosis ICD-10-CM 1. Compression fracture of thoracic vertebra with delayed healing, unspecified thoracic vertebral level, subsequent encounter S22.000G CONSULT TO SPINE SURGERY MD Viet Mitchell [place] 12/22/2024 10:08 AM Signed Spoke with Erin and gave all contact information. Norma Long 12/22/2024 10:14 AM Signed Patient Tena called back and asked that we contact her daughter for any questions as she is not sure what is going on Juan [phone] fyi Allergies As of Date: 12/22/2024 Noted Allergy Reaction KEFLEX (CEPHALEXIN) 05/12/2005 6 - Diarrhea 8 - GI Upset Comments: "extreme diarrhea" VIOXX (ROFECOXIB) 05/12/2005 5 - Intolerance Comments: "Makes capillaryblood vessels break" NOVOCAIN (PROCAINE HCL) 01/13/2024 5 - Intolerance Comments: headaches OMEGA-3 FISH OIL (OMEGA-3 FATTY A*05/05/2007 5 - Intolerance Comments: bleeding in eye ADVIL (IBUPROFEN) 05/28/2005 5 - Intolerance Comments: "Makes capillary blood vessels bread" ASA (SALICYLATES) 05/28/2005 5 - Intolerance Comments: "Makes capillary blood vessels break" Date Reviewed: 12/19/2024 Reviewed by: Theresa Gonzales RN - Fully Assessed Reason for Visit: Second Opinion [501] Primary Visit Diagnosis:Compression fracture of thoracic vertebra with delayed healing, unspecified thoracic vertebral level, subsequent encounter [S22.000G] Order(s):CONSULT TO SPINE SURGERY [[id number]] Order #: [id number]: 1 FUTURE Prescriptions as of 12/22/2024 - [...] once nicole (more content not included)... Normal [facility] 12-21-2024 [facility] Telephone (GIUSEPPE) TENA CANNON ([id number]) 1940 F Date Time Provider Department 12/21/24 LAURY MEHTA During your visit today, we recorded the following information about you: Laury Mehta APRN.PHARMACIST HELPER 12/21/2024 12:43 PM Signed Patient scheduled with me for follow-up on retention. If patient has catheter she needs rescheduled for earlier appt slot and PVR check with nursing. Nirali Bai 12/21/2024 1:05 PM Signed Called pt and she advised she had cath in - currently at [facility]. - Called them and lvm to reschedule and possibly send a cath removal order if they are able to do so. Nirali Greene 12/22/2024 9:41 AM Signed Called [facility] again- they stated they have her scheduled for a cath removal and bladder scan for the . They do need a order though (not sure how they have it scheduled) - I advised I would fax them a order and if she has any issues they could follow up with a appointment Fax- [phone] Laury Crocker APRN.ANTONY 12/22/2024 10:04 AM Signed Maybe with another urology office? I can't place order for her to have catheter removed as she is new patient. Looks like urology was not consulted during admission. Her PCP or licensed insurance agent at [facility] should be able to place order for it. Nirali Bai 12/22/2024 10:15 AM Signed Called the outpatient scheduler- she said she will confirm that she has a order and speak with the licensed insurance agent. If she needs anything from us she will call (for a appointment)- but she is pretty sure she has it covered Nirali Bai Allergies As of Date: 12/21/2024 Noted Allergy Reaction KEFLEX (CEPHALEXIN) 05/12/2005 6 - Diarrhea 8 - GI Upset Comments: "extreme diarrhea" VIOXX (ROFECOXIB) 05/12/2005 5 - Intolerance Comments: "Makes capillaryblood vessels break" NOVOCAIN (PROCAINE HCL) 01/13/2024 5 - Intolerance Comments: headaches OMEGA-3 FISH OIL (OMEGA-3 FATTY A*05/05/2007 5 - Intolerance Comments: bleeding in eye ADVIL (IBUPROFEN) 05/28/2005 5 - Intolerance Comments: "Makes capillary blood vessels bread" ASA (SALICYLATES) 05/28/2005 5 - Intolerance Comments: "Makes capillary blood vessels break" Date Reviewed: 12/19/2024 Reviewed by: Theresa Gonzales, HILDA - Fully Assessed Prescriptions as of 12/22/2024 [...] ophthalmic solu (more content not included)... Normal [facility] Absolute lymphocyte countOrd ered By: Chey Kumar on 12-20-2024 Lymphocytes Auto (Unsp spec) [#/Vol] 0.83 10*3/uL 0.83-4.51 [facility] Absolute neutrophil countOrd ered By: Chey Kumar on 12-20-2024 Neutrophils (Bld) [#/Vol] 6.3 10*3/uL 2.0-7.7 [facility] Anion gap in Serum or Plasma Ordered By: Melindalyndhurstyoli Singletonaubrey on 12-20-2024 Anion gap [Moles/Vol] 11 mmol/L 5-15 [facility] Automated lymphocyte count a s percentage of total leukocytesOrdered By: Melindayoli Maniaubrey on 12-20-2024 Lymphocytes/100 WBC Auto (Unsp spec) 9.8 % Low 19-41 [facility] BUN/creatinine ratioOrdered By: Chey Maniaubrey on 12-20-2024 Urea nitrogen/Creatinine [Mass ratio] 53.7 mg/mg High 10-20 [facility] Basophil percentageOrdered B y: Chey Kumar on 12-20-2024 Basophils/100 WBC (Bld) 0.2 % 0-1 [facility] Bilirubin, totalOrdered By: Melindabrittany Singletongriseldaalvin on 12-20-2024 Bilirubin [Mass/Vol] 0.58 mg/dL 0.00-1.30 [facility] CNPNon 12-20-2024 [facility] Telephone (ILNDY) TENA CANNON ([id number]) 1940 F Date Time Provider Department 12/20/24 SAHRA GUY During your visit today, we recorded the following information about you: Tete Melchor 12/20/2024 9:25 AM Signed Tena is a patient of Sahra Guy MD today ANTONY Oliveira from [facility] called to speak with clinical staff regarding medication questions and why patient is taking certain medications, she stated patient is confused. Please scott her today. Patient has been identified by name and birthdate. Was an appointment scheduled: No Closing statement: Results or non-symptom based questions: Thank you for calling [facility], your call will be returned within the next business day. Tete Mora [facility] Destinyhelen MalikaLOBO 12/20/2024 11:24 AM Signed Spoke to Roxanne. She wanted to know patients code status and why patient is taking Metformin. Information was given to her. Patient has a living will but no code status is listed in chart. Patient is taking Metformin for hyperglycemia. Allergies As of Date: 12/20/2024 Noted Allergy Reaction KEFLEX (CEPHALEXIN) 05/12/2005 6 - Diarrhea 8 - GI Upset Comments: "extreme diarrhea" VIOXX (ROFECOXIB) 05/12/2005 5 - Intolerance Comments: "Makes capillaryblood vessels break" NOVOCAIN (PROCAINE HCL) 01/13/2024 5 - Intolerance Comments: headaches OMEGA-3 FISH OIL (OMEGA-3 FATTY A*05/05/2007 5 - Intolerance Comments: bleeding in eye ADVIL (IBUPROFEN) 05/28/2005 5 - Intolerance Comments: "Makes capillary blood vessels bread" ASA (SALICYLATES) 05/28/2005 5 - Intolerance Comments: "Makes capillary blood vessels break" Date Reviewed: 12/19/2024 Reviewed by: Theresa Gonzales, HILDA - Fully Assessed Reason for Visit: clarify [...] TEARS OPHTHALMIC) Use in eyes. - rutin/hesp/bioflav/C/h [id number] (BIOFLEX ORAL) Take 1 capsule by mouth twice daily. - CPAP BipaP @ 14/9 cm of water with humidification, removable water dispenser (for cleaning) . Mask (small/ per patient preference) , filters, tubing, humidifier and lifetime supplies. (G47.3 (more content not included)... Normal [facility] Telephone (SIS) TENA CANNON ([id number]) 1940 F Date Time Provider Department 12/20/24 SAHRA GUY During your visit today, we recorded the following information about you: Norma Long 12/20/2024 11:36 AM Signed [facility] Roxanne paz [facility] is calling Sahra Guy MD today to request the MRI of the spine on 12/15/2024 be faxed to them at fax# [phone] Call back to [facility] Roxanne at phone [phone] Patient has been identified by name and birthdate. Person calling: nurse Call patient at: on cell [phone] (home) [phone] (cell) Was an appointment scheduled: Adonay Taylor LPN 12/20/2024 1:38 PM Signed Fax sent, called and notified Roxanne. Allergies As of Date: 12/20/2024 Noted Allergy Reaction KEFLEX (CEPHALEXIN) 05/12/2005 6 - Diarrhea 8 - GI Upset Comments: "extreme diarrhea" VIOXX (ROFECOXIB) 05/12/2005 5 - Intolerance Comments: "Makes capillaryblood vessels break" NOVOCAIN (PROCAINE HCL) 01/13/2024 5 - Intolerance Comments: headaches OMEGA-3 FISH OIL (OMEGA-3 FATTY A*05/05/2007 5 - Intolerance Comments: bleeding in eye ADVIL (IBUPROFEN) 05/28/2005 5 - Intolerance Comments: "Makes capillary blood vessels bread" ASA (SALICYLATES) 05/28/2005 5 - Intolerance Comments: "Makes capillary blood vessels break" Date Reviewed: 12/19/2024 Reviewed by: Theresa Gonzales [...] TEARS OPHTHALMIC) Use in eyes. - rutin/hesp/bioflav/C/h [id number] (BIOFLEX ORAL) Take 1 capsule by mouth [...] [B91] 05/12/2005 (more content not included)... Normal [facility] Carbon dioxide, total [Moles /volume] in Central venous bloodOrdered By: Chey Kumar on 12-20-2024 CO2 [Moles/Vol] 26.7 mmol/L 21.0-32.0 [facility] Chloride assayOrdered By: Walt Kumar on 12-20-2024 Chloride [Moles/Vol] 97 mmol/L Low 98-108 [facility] Eosinophil percentageOrdered By: Chey Kumar on 12-20-2024 Eosinophils/100 WBC (Bld) 1.6 % 0-5 [facility] Erythrocyte distribution wid th ratioOrdered By: carmenlyndhurstyoli Kumar on 12-20-2024 Erythrocyte distribution width (RBC) [Ratio] 12.8 % 11.6-14.6 [facility] Erythrocyte distribution wid th standard deviationOrdered By: Melindalyndhurstyoli Kumar on 12-20-2024 Erythrocyte distribution width (RBC) [Ratio] 42.7 fl 35.1-43.9 [facility] Glomerular filtration rate ( GFR) estimation/1.73 sq m using serum, plasma, or whole bOrdered By: Chey Kumar on 12-20-2024 GFR/1.73 sq M.predicted among non-blacks MDRD (S/P/Bld) [Vol rate/Area] 104 mL/min/{1.73_m2} >60 [facility] Comment on above: mL/min/1.73m2 CKD-EP I Creatinine Equation (2020) Hematocrit Auto (Bld) [Volum e fraction]Ordered By: Chey Kumar on 12-20-2024 Hematocrit (Bld) [Volume fraction] 40.5 % 37-47 [facility] Hemoglobin measurementOrdere d By: Chey Kumar on 12-20-2024 Hemoglobin (Bld) [Mass/Vol] 14.0 g/dL 12.0-15.0 [facility] Immature granulocytes/100 WB C Auto (Bld)Ordered By: Chey Kumar on 12-20-2024 Immature granulocytes/100 WBC (Bld) 1.300 % High 0.0-0.9 [facility] Comment on above: IG% - Immature Granu locytes (promyelocytes, myelocytes and metamyelocytes) > 1% indicates that a LEFT SHIFT is Present. Laboratory - Chemistry and C hemistry - challengeOrdered By: Chey Kumar on 12-20-2024 AST [Catalytic activity/Vol] 43 U/L High <32 [facility] MCV (mean corpuscular volume ) determinationOrdered By: Chey Kumar on 12-20-2024 MCV (RBC) [Entitic vol] 91.8 fL 81-99 [facility] Mean corpuscular hemoglobin (MCH) determinationOrdered By: Chey Kumar on 12-20-2024 MCH (RBC) [Entitic mass] 31.7 pg 27.0-32.0 [facility] Mean corpuscular hemoglobin concentration (MCHC) determinationOrdered By: Chey Kumar on 12-20-2024 MCHC (RBC) [Mass/Vol] 34.6 g/dL 32-36 [facility] Mean platelet volume determi nationOrdered By: Chey Kumar on 12-20-2024 Platelet mean volume (Bld) [Entitic vol] 11.2 fL 6.2-12.0 [facility] Monocyte percentageOrdered B y: Chey Kumar on 12-20-2024 Monocytes/100 WBC (Bld) 12.9 % High 0-10 [facility] Neutrophil percentageOrdered By: Chey Kumar on 12-20-2024 Neutrophils/100 WBC (Bld) 74.2 % High 47-70 [facility] Nucleated red blood cell per centageOrdered By: Chey Kumar on 12-20-2024 Nucleated RBC/100 WBC (Bld) [Ratio] 0 % 0-5 [facility] Platelet countOrdered By: Walt Kumar on 12-20-2024 Platelets (Bld) [#/Vol] 230 10*3/uL 150-450 [facility] Potassium measurement (mass/ volume)Ordered By: Chey Kumar on 12-20-2024 Potassium (Unsp spec) [Mass/Vol] 4.0 mmol/L 3.3-5.1 [facility] RBC Auto (Bld) [#/Vol]Ordere d By: Chey Kumar on 12-20-2024 RBC (Bld) [#/Vol] 4.41 10*6/uL 4.2-5.4 [facility] Serum creatinine measurement (mass/volume)Ordered By: Chey Kumar on 12-20-2024 Creatinine [Mass/Vol] 0.30 mg/dL Low 0.70-1.20 [facility] Serum globulin measurementOr dered By: Chey Kumar on 12-20-2024 Globulin (S) [Mass/Vol] 2.8 g/dL 2.2-4.2 [facility] Serum glucose measurement (m ass/volume)Ordered By: Chey Kumar on 12-20-2024 Glucose [Mass/Vol] 108 mg/dL High 70-99 [facility] Serum or plasma alanine grimaldo otransferase (ALT) measurementOrdered By: Chey Kumar on 12-20-2024 ALT [Catalytic activity/Vol] 26 U/L <35 [facility] Serum or plasma albumin ori urement (mass/volume)Ordered By: Chey Kumar on 12-20-2024 Albumin [Mass/Vol] 3.3 g/dL Low 3.4-4.8 [facility] Serum or plasma albumin/glob ulin mass ratioOrdered By: Chey Kumar on 12-20-2024 Albumin/Globulin [Mass ratio] 1.2 {ratio} 0.9-2.4 [facility] Serum or plasma alkaline nikia sphatase measurementOrdered By: Chey Kumar on 12-20-2024 ALP [Catalytic activity/Vol] 98 U/L 35-104 [facility] Serum or plasma calcium ori urement (mass/volume)Ordered By: Chey Kumar on 12-20-2024 Calcium [Mass/Vol] 9.4 mg/dL 7.6-11.0 [facility] Serum or plasma urea nitroge n measurement (mass/volume)Ordered By: Chey Kmuar on 12-20-2024 Urea nitrogen [Mass/Vol] 16 mg/dL 4-19 [facility] Sodium levelOrdered By: Melinda Kumar on 12-20-2024 Sodium [Moles/Vol] 135 mmol/L 133-145 [facility] Total proteinOrdered By: Gary Kumar on 12-20-2024 Protein [Mass/Vol] 6.1 g/dL 5.9-8.4 [facility] White blood cell (WBC) count Ordered By: Chey Kumar on 12-20-2024 WBC (Bld) [#/Vol] 8.5 10*3/uL 4.4-11.0 [facility] Basic metabolic 2000 panelon 12-19-2024 Anion gap [Moles/Vol] 8 mmol/L Normal 8-15 [facility] Comment on above: Order Comment: Speckristi bronson Type: BLOOD SPECIMENOrdering Facility: [facility] Address: [address] [place] [address] Performed By: #### 2 4320-2, ####[facility] LABORATORYCLIA [id number] [place] [address] [place] Calcium [Mass/Vol] 8.9 mg/dL Normal 8.5-10.2 [facility] Comment on above: Order Comment: Helena bronson Type: BLOOD SPECIMENOrdering Facility: [facility] Address: [address] [place] [address] Performed By: #### 2 4320-2, ####KENDRICK LABORATORYCLIA [id number] [place] [id number] [place] Chloride [Moles/Vol] 99 mmol/L Normal 98-107 [facility] Comment on above: Order Comment: Helena men Type: BLOOD SPECIMENOrdering Facility: [facility] Address: [facility] [place] [address] Performed By: #### 2 432-2, ####KENDRICK LABORATORYCLIA [id number] [place] [address] [place] CO2 [Moles/Vol] 32 mmol/L High 22-30 [facility] Comment on above: Order Comment: Helena bronson Type: BLOOD SPECIMENOrdering Facility: [facility] Address: [address] [place] [address] Performed By: #### 2 43208-04, ####KENDRICK LABORATORYCLIA [id number] [place] [address] [place] Creatinine [Mass/Vol] 0.34 mg/dL Low 0.58-0.96 [facility] Comment on above: Order Comment: Helena aiyana Type: BLOOD SPECIMENOrdering Facility: [facility] Address: [address] [place] [address] Performed By: #### 2 4322, ####KENDRICK LABORATORYCLIA [id number] [place] [id number] [place] Creatinine and Glomerular filtration rate.predicted panel (S/P/Bld) 100 mL/min/1.73m??? Normal >=60 [facility] Comment on above: Order Comment: Helena bronson Type: BLOOD SPECIMENOrdering Facility: [facility] Address: [address] [place] [address] Result Comment: Sara mated Glomerular Filtration Rate [...] reflect actual GFR. Performed By: #### 2 432-2, ####KENDRICK LABORATORYCLIA [id number] [place] [id number] [place] Glucose [Mass/Vol] 89 mg/dL Normal 74-99 [facility] Comment on above: Order Comment: Helena [facility] Type: BLOOD SPECIMENOrdering Facility: [facility] Address: [address] [place] [address] Result Comment: The [place] [employer] (ADA) provides guidance for cutoff [...] Standards of Medical Care in Diabetes 2016, [place] [employer]. Diabetes Care. 2016.39(Suppl 1). Performed By: #### 2 4320-09, ####KENDRICK LABORATORYCLIA [id number] [place] [address] [place] Potassium [Moles/Vol] 4.1 mmol/L Normal 3.7-5.1 [facility] Comment on above: Order Comment: Helena bronson Type: BLOOD SPECIMENOrdering Facility: [facility] Address: [address] [place] [address] Performed By: #### 2 4320-09, ####KENDRICK LABORATORYCLIA [id number] [place] [address] [place] Sodium [Moles/Vol] 139 mmol/L Normal 136-144 [facility] Comment on above: Order Comment: Helena bronson Type: BLOOD SPECIMENOrdering Facility: [facility] Address: [address] [place] [address] Performed By: #### 2 4320-09, ####KENDRICK LABORATORYCLIA [id number] [place] [address] [place] Urea nitrogen [Mass/Vol] 18 mg/dL Normal 7-21 [facility] Comment on above: Order Comment: Helena bronson Type: BLOOD SPECIMENOrdering Facility: [facility] Address: [address] [place] [address] Performed By: #### 2 4320-09, ####KENDRICK LABORATORYCLIA [id number] [place] [address] [place] CBC panel Auto (Bld)on 12-19 Erythrocyte distribution width (RBC) [Ratio] 12.6 % Normal 11.5-15.0 [facility] Comment on above: Order Comment: Speci men Type: BLOOD SPECIMENOrdering Facility: [facility] Address: [address] [place] [address] Performed By: #### 5 8410-2 ####KENDRICK LABORATORYCLIA [id number] [address] OF [facility] Hematocrit (Bld) [Volume fraction] 36.3 % Normal 36.0-46.0 [facility] Comment on above: Order Comment: Speci men Type: BLOOD SPECIMENOrdering Facility: [facility] Address: [address] [place] [address] Performed By: #### 5 8410-2 ####KENDRICK LABORATORYCLIA [id number] [address] OF [facility] Hemoglobin (Bld) [Mass/Vol] 12.2 g/dL Normal 11.5-15.5 [facility] Comment on above: Order Comment: Speci men Type: BLOOD SPECIMENOrdering Facility: [facility] Address: [address] [place] [address] Performed By: #### 5 8410-2 ####KENDRICK LABORATORYCLIA [id number] [address] MCH (RBC) [Entitic mass] 31.0 pg Normal 26.0-34.0 [facility] Comment on above: Order Comment: Speci men Type: BLOOD SPECIMENOrdering Facility: [facility] Address: [address] [place] [address] Performed By: #### 5 8410-2 ####KENDRICK LABORATORYCLIA [id number] [address] MCHC (RBC) [Mass/Vol] 33.6 g/dL Normal 30.5-36.0 [facility] Comment on above: Order Comment: Speci men Type: BLOOD SPECIMENOrdering Facility: [facility] Address: [address] [place] [address] Performed By: #### 5 8410-2 ####KENDRCIK LABORATORYCLIA [id number] [place] [address] [place] MCV (RBC) [Entitic vol] 92.1 fL Normal 80.0-100.0 [facility] Comment on above: Order Comment: Speci men Type: BLOOD SPECIMENOrdering Facility: [facility] Address: [address] [place] [address] Performed By: #### 5 8410-2 ####KENDRICK LABORATORYCLIA [id number] [place] [address] [place] Nucleated RBC (Bld) [#/Vol] 10*3/uL Normal <0.01 [facility] Comment on above: Order Comment: Speci men Type: BLOOD SPECIMENOrdering Facility: [facility] Address: [address] [place] [address] Performed By: #### 5 8410-2 ####KENDRICK LABORATORYCLIA [id number] [place] [address] [place] Platelet mean volume (Bld) [Entitic vol] 10.9 fL Normal 9.0-12.7 [facility] Comment on above: Order Comment: Speci men Type: BLOOD SPECIMENOrdering Facility: [facility] Address: [address] [place] [address] Performed By: #### 5 8410-2 ####KENDRICK LABORATORYCLIA [id number] [place] [address] [place] Platelets (Bld) [#/Vol] 185 10*3/uL Normal 150-400 [facility] Comment on above: Order Comment: Speci men Type: BLOOD SPECIMENOrdering Facility: [facility] Address: [address] [place] [address] Performed By: #### 5 8410-2 ####KENDRICK LABORATORYCLIA [id number] [place] [address] [place] RBC (Bld) [#/Vol] 3.94 10*6/uL Normal 3.90-5.20 [facility] Comment on above: Order Comment: Speci men Type: BLOOD SPECIMENOrdering Facility: [facility] Address: [address] [place] [address] Performed By: #### 5 8410-2 ####KENDRICK LABORATORYCLIA [id number] [place] [address] [place] WBC (Bld) [#/Vol] 4.50 10*3/uL Normal 3.70-11.00 [facility] Comment on above: Order Comment: Speci men Type: BLOOD SPECIMENOrdering Facility: [facility] Address: [address] [place] [id number] Performed By: #### 5 8410-2 ####KENDRICK LABORATORYCLIA [id number] [place] [address] [place] CNDSon 12-19-2024 CNDS HNO ID: [id number] Author: MORIAH LOPEZ MD Service: Hospital Medicine [...] is causing this. Follow up with a Hand I Blocker for your constipation. Remove Phoenix catheter after having flomax for 1 week. Remove on 12/24 to see if you can urinate on your own again. Referral to Urology, Spine surgery, Gastroenterology placed. Thursday-Thursday after 9 am, call heading and priming operator at [phone] and ask for the appointment line to schedule an appointment. SUMMARY OF WHAT HAPPENED WHILE I WAS IN THE HOSPITAL: see above OTHER PROBLEMS/DIAGNOSIS: Principal Problem: Thoracic compression fracture, closed, initial encounter (HCC) Active Problems: Restless legs syndrome (RLS) Postpoliomyelitis syndrome (HCC) Obstructive sleep apnea on CPAP Generalized weakness Obesity, Class I, BMI 30-34.9 Low back pain Resolved Problems: Sleep apnea OPERATIONS PERFORMED WHILE IN THE HOSPITAL: None IMPORTANT TEST/PROCEDURES: No procedures performed TEST RESULTS NOT AVAILABLE AT THIS TIME: No pending results Discharge Disposition Discharge Disposition: Correction Facility - Less than 30 Days Follow [...] at 6 pm that he spoke with [facility] neurosurgeon continuous improvement director who said that patient isn't a surgical [...] flomax. Attempt Phoenix removal on 12/[address] [facility]. If can't urinate, insert Phoenix back in. Follow up with Urology. Had cystitis and improved with abx. DC on cefdinir Transitions of Care Critical Issues: SPECIALIST FOLLOW-UP: Urology Spinal surgery and Gastroenterology HAYNES MEDICATION CHANGES: see med list LABS AND PROCEDURES PENDING AT DISCHARGE: No pending results. FOLLOW-UP APPOINTMENTS ALREADY SCHEDULED WITH A [facility] PROVIDER: Future Appointments Date Time Provider Department [facility] 01/[facility]2025 10[facility]30 [facility] 9:40 AM Harinder Kiran PA-C [facility] ALLERGIES Allergen Reactions Keflex [Cephalexin] Diarrhea, GI Upset extreme diarrhea Vioxx [Rofecoxib] Intolerance Makes capillaryblood vessels break" Novocain [Procaine * Intolerance headaches [place]-3 Fish Oil [O* Intoler (more content not included)... Normal [facility] Magnesium SerPl-mCncon 12-19 Magnesium [Mass/Vol] 2.2 mg/dL Normal 1.7-2.3 [facility] Comment on above: Order Comment: Speci men Type: BLOOD SPECIMENOrdering Facility: [facility] Address: [address] [place] [address] Performed By: #### 2 4321-2, ####[facility] BR[facility] LABORATORYCLIA [id number] [place] [address] [place] Basic metabolic 2000 panelon 12-18-2024 Anion gap [Moles/Vol] 9 mmol/L Normal 8-15 [facility] Comment on above: Order Comment: Speci men Type: BLOOD SPECIMENOrdering Facility: [facility] Address: [address] [place] [address] Performed By: #### 2 4321-2, ####[facility] BR[facility] LABORATORYCLIA [id number] [place] [id number] [place] Calcium [Mass/Vol] 9.3 mg/dL Normal 8.5-10.2 [facility] Comment on above: Order Comment: Speci men Type: BLOOD SPECIMENOrdering Facility: [facility] Address: [address] [place] [address] Performed By: #### 2 4321-2, ####KENDRICK LABORATORYCLIA [id number] [place] [address] [place] Chloride [Moles/Vol] 96 mmol/L Low 98-107 [facility] Comment on above: Order Comment: Helena bronson Type: BLOOD SPECIMENOrdering Facility: [facility] Address: [address] [place] [address] Performed By: #### 2 2, ####KENDRICK LABORATORYCLIA [id number] [place] [id number] [place] CO2 [Moles/Vol] 31 mmol/L High 22-30 [facility] Comment on above: Order Comment: Helena bronson Type: BLOOD SPECIMENOrdering Facility: [facility] Address: [address] [place] [address] Performed By: #### 2 4320-09, ####[facility] BR[facility] LABORATORYCLIA [id number] [place] [address] [place] Creatinine [Mass/Vol] 0.30 mg/dL Low 0.58-0.96 [facility] Comment on above: Order Comment: Helena bronson Type: BLOOD SPECIMENOrdering Facility: [facility] Address: [address] [place] [address] Performed By: #### 2 4320-09, ####KENDRICK LABORATORYCLIA [id number] [address] Creatinine and Glomerular filtration rate.predicted panel (S/P/Bld) 103 mL/min/1.73m??? Normal >=60 [facility] Comment on above: Order Comment: Helena bronson Type: BLOOD SPECIMENOrdering Facility: [facility] Address: [address] [place] [address] Result Comment: Sara mated Glomerular Filtration Rate [...] Performed By: #### 2 4320-09, ####KENDRICK LABORATORYCLIA [id number] [place] [id number] [place] Glucose [Mass/Vol] 99 mg/dL Normal 74-99 [facility] Comment on above: Order Comment: Helena bronson Type: BLOOD SPECIMENOrdering Facility: [facility] Address: [address] [place] [address] Result Comment: The [place] [employer] (ADA) provides guidance for cutoff [...] Standards of Medical Care in Diabetes 2016, [place] [employer]. Diabetes Care. 2016.39(Suppl 1). Performed By: #### 2 4320-09, ####KENDRICK LABORATORYCLIA [id number] [place] [id number] [place] Potassium [Moles/Vol] 4.1 mmol/L Normal 3.7-5.1 [facility] Comment on above: Order Comment: Helena bronson Type: BLOOD SPECIMENOrdering Facility: [facility] Address: [address] [place] [address] Performed By: #### 2 4320-09, ####KENDRICK LABORATORYCLIA [id number] [place] [address] [place] Sodium [Moles/Vol] 136 mmol/L Normal 136-144 [facility] Comment on above: Order Comment: Helena bronson Type: BLOOD SPECIMENOrdering Facility: [facility] Address: [address] [place], [place] [address] Performed By: #### 2 4320-09, ####KENDRICK LABORATORYCLIA [id number] [place] [id number] [place] Urea nitrogen [Mass/Vol] 18 mg/dL Normal 7-21 [facility] Comment on above: Order Comment: Speci men Type: BLOOD SPECIMENOrdering Facility: [facility] Address: [address] [place] [address] Performed By: #### 2 4321-2, 86638-7 ####KENDRICK LABORATORYCLIA [id number] [address] CBC panel Auto (Bld)on 12-18 Erythrocyte distribution width (RBC) [Ratio] 12.5 % Normal 11.5-15.0 [facility] Comment on above: Order Comment: Speci men Type: BLOOD SPECIMENOrdering Facility: [facility] Address: [address] [place] [address] Performed By: #### 5 8410-2 ####KENDRICK LABORATORYCLIA [id number] [address] [place] Hematocrit (Bld) [Volume fraction] 35.1 % Low 36.0-46.0 [facility] Comment on above: Order Comment: Speci men Type: BLOOD SPECIMENOrdering Facility: [facility] Address: [address] [place] [address] Performed By: #### 5 8410-2 ####KENDRICK LABORATORYCLIA [id number] [address] STATES [facility] Hemoglobin (Bld) [Mass/Vol] 12.0 g/dL Normal 11.5-15.5 [facility] Comment on above: Order Comment: Speci men Type: BLOOD SPECIMENOrdering Facility: [facility] Address: [address] [place] [address] Performed By: #### 5 8410-2 ####KENDRICK LABORATORYCLIA [id number] [address] MCH (RBC) [Entitic mass] 31.3 pg Normal 26.0-34.0 [facility] Comment on above: Order Comment: Speci men Type: BLOOD SPECIMENOrdering Facility: [facility] Address: [address] [place] [address] Performed By: #### 5 8410-2 ####KENDRICK LABORATORYCLIA [id number] [address] [place] MCHC (RBC) [Mass/Vol] 34.2 g/dL Normal 30.5-36.0 [facility] Comment on above: Order Comment: Speci men Type: BLOOD SPECIMENOrdering Facility: [facility] Address: [address] [place] [address] Performed By: #### 5 8410-2 ####KENDRICK LABORATORYCLIA [id number] [place] [address] [place] MCV (RBC) [Entitic vol] 91.4 fL Normal 80.0-100.0 [facility] Comment on above: Order Comment: Speci men Type: BLOOD SPECIMENOrdering Facility: [facility] Address: [address] [place] [address] Performed By: #### 5 8410-2 ####KENDRICK LABORATORYCLIA [id number] [address] [place] Nucleated RBC (Bld) [#/Vol] 10*3/uL Normal <0.01 [facility] Comment on above: Order Comment: Speci men Type: BLOOD SPECIMENOrdering Facility: [facility] Address: [address] [place] [address] Performed By: #### 5 8410-2 ####KENDRICK LABORATORYCLIA [id number] [address] [place] Platelet mean volume (Bld) [Entitic vol] 10.7 fL Normal 9.0-12.7 [facility] Comment on above: Order Comment: Speci men Type: BLOOD SPECIMENOrdering Facility: [facility] Address: [address] [place] [address] Performed By: #### 5 8410-2 ####KENDRICK LABORATORYCLIA [id number] [address] [place] Platelets (Bld) [#/Vol] 212 10*3/uL Normal 150-400 [facility] Comment on above: Order Comment: Speci men Type: BLOOD SPECIMENOrdering Facility: [facility] Address: [address] [place], [place] [id number] Performed By: #### 5 8410-2 ####KENDRICK LABORATORYCLIA [id number] [place] [address] [place] RBC (Bld) [#/Vol] 3.84 10*6/uL Low 3.90-5.20 [facility] Comment on above: Order Comment: Speci men Type: BLOOD SPECIMENOrdering Facility: [facility] Address: [address] [place] [address] Performed By: #### 5 8410-2 ####KENDRICK LABORATORYCLIA [id number] [address] [place] WBC (Bld) [#/Vol] 6.24 10*3/uL Normal 3.70-11.00 [facility] Comment on above: Order Comment: Speci men Type: BLOOD SPECIMENOrdering Facility: [facility] Address: [address] [place] [address] Performed By: #### 5 8410-2 ####KENDRICK LABORATORYCLIA [id number] [place] [address] [place] Magnesium SerPl-ncon 12-18 Magnesium [Mass/Vol] 1.8 mg/dL Normal 1.7-2.3 [facility] Comment on above: Order Comment: Speci men Type: BLOOD SPECIMENOrdering Facility: [facility] Address: [address] [place] [address] Performed By: #### 2 4321-2, 22495-3 ####KENDRICK LABORATORYCLIA [id number] [place] [address] [place] Basic metabolic 2000 panelon 12-17-2024 Anion gap [Moles/Vol] 9 mmol/L Normal 8-15 [facility] Comment on above: Order Comment: Speci men Type: BLOOD SPECIMENOrdering Facility: [facility] Address: [address] [place] [address] Performed By: #### 1 9123-9, 61008-8 ####KENDRICK LABORATORYCLIA [id number] [place] [address] [place] Calcium [Mass/Vol] 9.9 mg/dL Normal 8.5-10.2 [facility] Comment on above: Order Comment: Speci men Type: BLOOD SPECIMENOrdering Facility: [facility] Address: [address] [place] [address] Performed By: #### 1 9123-9, 94989-3 ####KENDRICK LABORATORYCLIA [id number] [place] [address] [place] Chloride [Moles/Vol] 97 mmol/L Low 98-107 [facility] Comment on above: Order Comment: Speci men Type: BLOOD SPECIMENOrdering Facility: [facility] Address: [address] [place] [address] Performed By: #### 1 9123-9, 87061-5 ####KENDRICK LABORATORYCLIA [id number] [place] [address] [place] CO2 [Moles/Vol] 32 mmol/L High 22-30 [facility] Comment on above: Order Comment: Speci men Type: BLOOD SPECIMENOrdering Facility: [facility] Address: [address] [place] [address] Performed By: #### 1 9123-9, 85645-9 ####KENDRICK LABORATORYCLIA [id number] [place] [address] [place] Creatinine [Mass/Vol] 0.27 mg/dL Low 0.58-0.96 [facility] Comment on above: Order Comment: Speci men Type: BLOOD SPECIMENOrdering Facility: [facility] Address: [address] [place] [address] Performed By: #### 1 9123-9, 11350-0 ####KENDRICK LABORATORYCLIA [id number] [place] [address] [facility] Creatinine and Glomerular filtration rate.predicted panel (S/P/Bld) 106 mL/min/1.73m??? Normal >=60 [facility] Comment on above: Order Comment: Speci men Type: BLOOD SPECIMENOrdering Facility: [facility] Address: [address] [place] [address] Result Comment: Sara mated Glomerular Filtration Rate [...] actual GFR. Performed By: #### 1 9123-9, 13686-0 ####SADD[facility] BROOK LABORATORYCLIA [id number] [place] [id number] [place] Glucose [Mass/Vol] 97 mg/dL Normal 74-99 [facility] Comment on above: Order Comment: Speci men Type: BLOOD SPECIMENOrdering Facility: [facility] Address: [address] [place] [address] Result Comment: The [place] [employer] (ADA) provides guidance for cutoff [...] Standards of Medical Care in Diabetes 2016, [place] [employer]. Diabetes Care. 2016.39(Suppl 1). Performed By: #### 1 9123-9, 82431-9 ####SADDLE BROOK LABORATORYCLIA [id number] [place] [id number] [place] Potassium [Moles/Vol] 3.5 mmol/L Low 3.7-5.1 [facility] Comment on above: Order Comment: Helena bronson Type: BLOOD SPECIMENOrdering Facility: [facility] Address: [address] [place] [id number] Performed By: #### 1 9123-9, 02490-7 ####KENDRICK LABORATORYCLIA [id number] [place] [address] [place] Sodium [Moles/Vol] 138 mmol/L Normal 136-144 [facility] Comment on above: Order Comment: Speci men Type: BLOOD SPECIMENOrdering Facility: [facility] Address: [address] [place] [address] Performed By: #### 1 9123-9, 12949-1 ####KENDRICK LABORATORYCLIA [id number] [address] Urea nitrogen [Mass/Vol] 23 mg/dL High 7-21 [facility] Comment on above: Order Comment: Speci men Type: BLOOD SPECIMENOrdering Facility: [facility] Address: [address] [place] [address] Performed By: #### 1 9123-9, 45532-6 ####KENDRICK LABORATORYCLIA [id number] [address] CBC panel Auto (Bld)on 12-17 Erythrocyte distribution width (RBC) [Ratio] 12.5 % Normal 11.5-15.0 [facility] Comment on above: Order Comment: Speci men Type: BLOOD SPECIMENOrdering Facility: [facility] Address: [address] [place] [address] Performed By: #### 5 8410-2 ####KENDRICK LABORATORYCLIA [id number] [address] Hematocrit (Bld) [Volume fraction] 35.8 % Low 36.0-46.0 [facility] Comment on above: Order Comment: Speci men Type: BLOOD SPECIMENOrdering Facility: [facility] Address: [address] [place] [address] Performed By: #### 5 8410-2 ####KENDRICK LABORATORYCLIA [id number] [address] Hemoglobin (Bld) [Mass/Vol] 12.8 g/dL Normal 11.5-15.5 [facility] Comment on above: Order Comment: Speci men Type: BLOOD SPECIMENOrdering Facility: [facility] Address: [address] [place] [address] Performed By: #### 5 8410-2 ####KENDRICK LABORATORYCLIA [id number] [place] [address] [place] MCH (RBC) [Entitic mass] 31.9 pg Normal 26.0-34.0 [facility] Comment on above: Order Comment: Speci men Type: BLOOD SPECIMENOrdering Facility: [facility] Address: [facility] [place] [address] Performed By: #### 5 8410-2 ####KENDRICK LABORATORYCLIA [id number] [place] [address] [place] MCHC (RBC) [Mass/Vol] 35.8 g/dL Normal 30.5-36.0 [facility] Comment on above: Order Comment: Speci men Type: BLOOD SPECIMENOrdering Facility: [facility] Address: [address] [place] [address] Performed By: #### 5 8410-2 ####KENDRICK LABORATORYCLIA [id number] [place] [address] [place] MCV (RBC) [Entitic vol] 89.3 fL Normal 80.0-100.0 [facility] Comment on above: Order Comment: Speci men Type: BLOOD SPECIMENOrdering Facility: [facility] Address: [address] [place] [address] Performed By: #### 5 8410-2 ####KENDRICK LABORATORYCLIA [id number] [place] [address] [place] Nucleated RBC (Bld) [#/Vol] 10*3/uL Normal <0.01 [facility] Comment on above: Order Comment: Speci men Type: BLOOD SPECIMENOrdering Facility: [facility] Address: [address] [place] [address] Performed By: #### 5 8410-2 ####KENDRICK LABORATORYCLIA [id number] [place] [address] [place] Platelet mean volume (Bld) [Entitic vol] 10.5 fL Normal 9.0-12.7 [facility] Comment on above: Order Comment: Speci men Type: BLOOD SPECIMENOrdering Facility: [facility] Address: [address] [place] [address] Performed By: #### 5 8410-2 ####KENDRICK LABORATORYCLIA [id number] [place] [address] [place] Platelets (Bld) [#/Vol] 226 10*3/uL Normal 150-400 [facility] Comment on above: Order Comment: Speci men Type: BLOOD SPECIMENOrdering Facility: [facility] Address: [address] [place] [address] Performed By: #### 5 8410-2 ####SADDLE BROOK LABORATORYCLIA [id number] [place] [address] [place] RBC (Bld) [#/Vol] 4.01 10*6/uL Normal 3.90-5.20 [facility] Comment on above: Order Comment: Speci men Type: BLOOD SPECIMENOrdering Facility: [facility] Address: [address] [place] [address] Performed By: #### 5 8410-2 ####SADDLE BROOK LABORATORYCLIA [id number] [address] [place] WBC (Bld) [#/Vol] 9.07 10*3/uL Normal 3.70-11.00 [facility] Comment on above: Order Comment: Speci men Type: BLOOD SPECIMENOrdering Facility: [facility] Address: [address] [place] [address] Performed By: #### 5 8410-2 ####SADD[facility] BROOK LABORATORYCLIA [id number] [place] [address] [place] Magnesium SerPl-mCncon 12-17 Magnesium [Mass/Vol] 1.8 mg/dL Normal 1.7-2.3 [facility] Comment on above: Order Comment: Speci men Type: BLOOD SPECIMENOrdering Facility: [facility] Address: [address] [place] [address] Performed By: #### 1 9123-9, 18731-9 ####KENDRICK LABORATORYCLIA [id number] [place] [address] [place] Basic metabolic 2000 panelon 12-16-2024 Anion gap [Moles/Vol] 13 mmol/L Normal 8-15 [facility] Comment on above: Order Comment: Speci men Type: BLOOD SPECIMENOrdering Facility: [facility] Address: [address] [place] [address] Performed By: #### 2 4321-2, ####KENDRICK LABORATORYCLIA [id number] [place] [address] [place] Calcium [Mass/Vol] 9.5 mg/dL Normal 8.5-10.2 [facility] Comment on above: Order Comment: Speci men Type: BLOOD SPECIMENOrdering Facility: [facility] Address: [address] [place] [address] Performed By: #### 2 4321-2, ####KENDRICK LABORATORYCLIA [id number] [place] [address] [place] Chloride [Moles/Vol] 98 mmol/L Normal 98-107 [facility] Comment on above: Order Comment: Speci men Type: BLOOD SPECIMENOrdering Facility: [facility] Address: [address] [place] [address] Performed By: #### 2 4320-2, ####KENDRICK LABORATORYCLIA [id number] [place] [address] [place] CO2 [Moles/Vol] 24 mmol/L Normal 22-30 [facility] Comment on above: Order Comment: Speci men Type: BLOOD SPECIMENOrdering Facility: [facility] Address: [address] [place] [address] Performed By: #### 2 4320-2, ####KENDRICK LABORATORYCLIA [id number] [place] [id number] [place] Creatinine [Mass/Vol] 0.24 mg/dL Low 0.58-0.96 [facility] Comment on above: Order Comment: Speci men Type: BLOOD SPECIMENOrdering Facility: [facility] Address: [facility] [address] Performed By: #### 2 4320-2, ####KENDRICK LABORATORYCLIA [id number] [place] [address] [facility] [place] Creatinine and Glomerular filtration rate.predicted panel (S/P/Bld) 109 mL/min/1.73m??? Normal >=60 [facility] Comment on above: Order Comment: Helena bronson Type: BLOOD SPECIMENOrdering Facility: [facility] Address: [facility] [place] [address] Result Comment: Sara mated Glomerular Filtration Rate [...] actual GFR. Performed By: #### 2 4321-2, ####SADD[facility] BROOK LABORATORYCLIA [id number] [place] [id number] [place] Glucose [Mass/Vol] 117 mg/dL High 74-99 [facility] Comment on above: Order Comment: Helena bronson Type: BLOOD SPECIMENOrdering Facility: [facility] Address: [facility] [place] [address] Result Comment: The [place] [employer] (ADA) provides guidance for cutoff [...] Standards of Medical Care in Diabetes 2016, [place] [employer]. Diabetes Care. 2016.39(Suppl 1). Performed By: #### 2 4321-2, 55922-8 ####S[facility] BROOK LABORATORYCLIA [id number] [place] [address] [place] Potassium [Moles/Vol] 3.4 mmol/L Low 3.7-5.1 [facility] Comment on above: Order Comment: Helena bronson Type: BLOOD SPECIMENOrdering Facility: [facility] Address: [address], [place] [address] Performed By: #### 2 4321-2, 73737-0 ####KENDRICK LABORATORYCLIA [id number] [place] [address] [place] Sodium [Moles/Vol] 135 mmol/L Low 136-144 [facility] Comment on above: Order Comment: Speci men Type: BLOOD SPECIMENOrdering Facility: [facility] Address: [address] [place] [address] Performed By: #### 2 4321-2, ####KENDRICK LABORATORYCLIA [id number] [place] [address] [place] Urea nitrogen [Mass/Vol] 25 mg/dL High 7-21 [facility] Comment on above: Order Comment: Speci men Type: BLOOD SPECIMENOrdering Facility: [facility] Address: [address] [place] [address] Performed By: #### 2 4321-2, ####KENDRICK LABORATORYCLIA [id number] [place] [address] [place] CBC panel Auto (Bld)on 12-16 Erythrocyte distribution width (RBC) [Ratio] 12.5 % Normal 11.5-15.0 [facility] Comment on above: Order Comment: Speci men Type: BLOOD SPECIMENOrdering Facility: [facility] Address: [address] [place] [address] Performed By: #### 5 8410-2 ####KENDRICK LABORATORYCLIA [id number] [address] [place] Hematocrit (Bld) [Volume fraction] 38.7 % Normal 36.0-46.0 [facility] Comment on above: Order Comment: Speci men Type: BLOOD SPECIMENOrdering Facility: [facility] Address: [address] [place] [address] Performed By: #### 5 8410-2 ####KENDRICK LABORATORYCLIA [id number] [address] [place] Hemoglobin (Bld) [Mass/Vol] 13.4 g/dL Normal 11.5-15.5 [facility] Comment on above: Order Comment: Speci men Type: BLOOD SPECIMENOrdering Facility: [facility] Address: [address] [place] [address] Performed By: #### 5 8410-2 ####KENDRICK LABORATORYCLIA [id number] [address] MCH (RBC) [Entitic mass] 30.7 pg Normal 26.0-34.0 [facility] Comment on above: Order Comment: Speci men Type: BLOOD SPECIMENOrdering Facility: [facility] Address: [address] [place] [address] Performed By: #### 5 8410-2 ####KENDRICK LABORATORYCLIA [id number] [address] MCHC (RBC) [Mass/Vol] 34.6 g/dL Normal 30.5-36.0 [facility] Comment on above: Order Comment: Speci men Type: BLOOD SPECIMENOrdering Facility: [facility] Address: [address] [place] [address] Performed By: #### 5 8410-2 ####KENDRICK LABORATORYCLIA [id number] [address] MCV (RBC) [Entitic vol] 88.8 fL Normal 80.0-100.0 [facility] Comment on above: Order Comment: Speci men Type: BLOOD SPECIMENOrdering Facility: [facility] Address: [address] [place] [address] Performed By: #### 5 8410-2 ####KENDRICK LABORATORYCLIA [id number] [address] Nucleated RBC (Bld) [#/Vol] 10*3/uL Normal <0.01 [facility] Comment on above: Order Comment: Speci men Type: BLOOD SPECIMENOrdering Facility: [facility] Address: [address] [place] [address] Performed By: #### 5 8410-2 ####KENDRICK LABORATORYCLIA [id number] [address] Platelet mean volume (Bld) [Entitic vol] 10.2 fL Normal 9.0-12.7 [facility] Comment on above: Order Comment: Speci men Type: BLOOD SPECIMENOrdering Facility: [facility] Address: [address] [place] [address] Performed By: #### 5 8410-2 ####KENDRICK LABORATORYCLIA [id number] [address] [place] Platelets (Bld) [#/Vol] 262 10*3/uL Normal 150-400 [facility] Comment on above: Order Comment: Speci men Type: BLOOD SPECIMENOrdering Facility: [facility] Address: [address] [place] [address] Performed By: #### 5 8410-2 ####KENDRICK LABORATORYCLIA [id number] [place] [address] [place] RBC (Bld) [#/Vol] 4.36 10*6/uL Normal 3.90-5.20 [facility] Comment on above: Order Comment: Speci men Type: BLOOD SPECIMENOrdering Facility: [facility] Address: [address] [place] [address] Performed By: #### 5 8410-2 ####KENDRICK LABORATORYCLIA [id number] [address] [place] WBC (Bld) [#/Vol] 10.28 10*3/uL Normal 3.70-11.00 [facility] Comment on above: Order Comment: Speci men Type: BLOOD SPECIMENOrdering Facility: [facility] Address: [address] [place] [address] Performed By: #### 5 8410-2 ####KENDRICK LABORATORYCLIA [id number] [address] [place] Magnesium [facility] Magnesium [Mass/Vol] 1.8 mg/dL Normal 1.7-2.3 [facility] Comment on above: Order Comment: Speci men Type: BLOOD SPECIMENOrdering Facility: [facility] Address: [address] [place] [address] Performed By: #### 2 4321-2, 79817-9 ####KENDRICK LABORATORYCLIA [id number] [place] [address] [place] THERAPY NTon 12-16-2024 THERAPY NT HNO ID: [id number] Author: MARC POND OT/Safia Service: ? Author Type: Occupational Therapist Type: Therapy (PT/OT/Speech/Resp) Filed: 12/16/2024 12:16 Note Text: Summary: OT Evaluation Occupational Therapy Evaluation Summary SERVICE DATE: 12/16/2024 SERVICE TIME: 1114 to 1152 ROOM: [place] [address] OT 6 Clicks Score: 13 DISCHARGE RECOMMENDATIONS [...] With: Facility Care, Other: See Comment Comments: [facility] Assistance Available: 24-Hour Entry To Home: No [...] Muscle Weakness (generalized) TREATMENT INTERVENTIONS Evaluation, Self Snf Management (42822) Timed Code Jesse (more content not included)... [facility] THERAPY NT HNO ID: [id number] Author: AVANI LAURA PT Service: Physical Therapy Author Type: Physical Therapist Type: Therapy (PT/OT/Speech/Resp) Filed: 12/16/2024 11:58 Note Text: Summary: PT evaluation Physical Therapy Evaluation Summary SERVICE DATE: 12/16/2024 SERVICE TIME: 1030 to 1112 ROOM: [place] [address] PT 6 Clicks Score: 8 DISCHARGE RECOMMENDATIONS [...] locked w/c and stand by assist at [facility]. frequent falls per chart. non ambulatory at [...] to SNF. She was discharged back to [facility] assisted living where PT saw her today [...] Evaluation, Therapeutic Activity (more content not included)... [facility] 12-15-2024 ALLIED [facility]ALTH HNO ID: [id number] Author: ELIAS SOMERS CT Service: Radiology Author Type: Braider Setter Type: Allied Health Filed: 12/15/2024 13:29 Note [...] PATIENT PRESENTS WITH AN IMPLANTABLE OR ATTACHED NET C DEVELOPER: No RADIOLOGY DEPARTMENT: MR; Exam(s) Completed: Spine: Lumbar spine. Lavender Administered: No PERIPHERAL IV DATA: Not applicable SIGNED BY: Malika Madrid, cardiothoracic anesthesia technician December 15, 2024 1:29 PM [facility] Bacteria Ur Culton Bacteria identified Cx Nom (U) CULTURE, URINE: Mixed microbiota, including predominantly: ORGANISM ID: 1 >=100,000 CFU/ml Aerococcus urinae No susceptibility testing done. [facility] Comment on above: Performed By: #### 6 30-4 #### [facility] CLIA [id number] [address] [place] [address] [place] MRI LUMBAR SPINE WO IVCONon 12-15-2024 MRI LUMBAR SPINE WO IVCON * * *Final Report* * * DATE OF EXAM: Dec 15 2024 1:54PM [facility] 0303 - MRI LUMBAR SPINE WO [...] and assume there are 5 lumbar-type vertebrae. Supervisor Glycerin: PSCChristian Transcribe Date/Time: Dec 15 2024 2:11P Dictated by : APRIL MACK MD This examination was interpreted and the report reviewed and electronically signed by: APRIL MACK MD on Dec 15 2024 2:31PM EST [id number] [facility] THERAPY NTon 12-15-2024 THERAPY NT HNO ID: [id number] Author: JOLYNN PATE, PT Service: Physical Therapy Author Type: Physical Therapist Type: Therapy (PT/OT/Speech/Resp) Filed: 12/15/2024 10:57 Note Text: Summary: PT missed visit PHYSICAL THERAPY MISSED VISIT SERVICE DATE: 12/15/2024 SERVICE TIME: 1055 ROOM: [place] [address] Patient not seen due to Clinical Appropriateness. Pt awaiting MRI of lumbar spine and delivery of LSO, will reattempt once complete and as schedule allows. SIGNATURE: Jolynn Pate, PT PATIENT NAME: Tena Cannon DATE: December 15, 2024 TIME: 10:56 AM [facility] THERAPY NT HNO ID: [id number] Author: MARC POND, OT/L Service: ? Author Type: Occupational Therapist Type: Therapy (PT/OT/Speech/Resp) Filed: 12/15/2024 10:27 Note Text: Summary: OT missed visit OCCUPATIONAL THERAPY MISSED VISIT SERVICE DATE: 12/15/2024 SERVICE TIME: 743 ROOM: [place] [address] Patient not seen due to Clinical Appropriateness. Pt awaiting MRI of lumbar spine. Will re-attempt as able/appropriate. 10:26 addendum: Pt also awaiting delivery of LSO brace. Will follow for MRI results and re-attempt once brace is obtained for safe mobilization and participation in OOB activities. SIGNATURE: Marc Pond OT/L PATIENT NAME: Tena Cannon DATE: December 15, 2024 TIME: 7:44 AM Normal [facility] Urinalysis complete panel (U )on 12-14-2024 Bacteria LM.HPF (Urine sed) [#/Area] Many Abnormal None Seen [facility] Comment on above: Order Comment: Speci men Type: URINE SPECIMENOrdering Facility: [facility] Address: [address] [address] Performed By: #### 2 4356-8 ####KENDRICK LABORATORYCLIA [id number] [place] [address] [place] Bilirubin Ql (U) 2+ Abnormal Negative [facility] Comment on above: Order Comment: Speci men Type: URINE SPECIMENOrdering Facility: [facility] Address: [address] [place] [place] [id number] Result Comment: Sugg est correlation with clinical findings and serum bilirubin if clinically indicated. Performed By: #### 2 4356-8 ####KENDRICK LABORATORYCLIA [id number] [address] [place] Clarity (Unsp spec) Cloudy Abnormal Clear [facility] Comment on above: Order Comment: Speci men Type: URINE SPECIMENOrdering Facility: [facility] Address: [address] [place] [address] Performed By: #### 2 4356-8 ####KENDRICK LABORATORYCLIA [id number] [address] [place] Color (U) Yellow Normal Yellow [facility] Comment on above: Order Comment: Speci men Type: URINE SPECIMENOrdering Facility: [facility] Address: [address] [place] [address] Performed By: #### 2 4356-8 ####KENDRICK LABORATORYCLIA [id number] [address] [place] Glucose Test strip (U) [Mass/Vol] Negative Normal Negative [facility] Comment on above: Order Comment: Speci men Type: URINE SPECIMENOrdering Facility: [facility] Address: [address] [place] [address] Performed By: #### 2 4356-8 ####KENDRICK LABORATORYCLIA [id number] [place] [address] [place] Hemoglobin Ql (U) Trace Abnormal Negative [facility] Comment on above: Order Comment: Speci men Type: URINE SPECIMENOrdering Facility: [facility] Address: [address] [place] [address] Performed By: #### 2 4356-8 ####KENDRICK LABORATORYCLIA [id number] [place] [address] [place] Ketones Ql (U) 3+ Abnormal Negative [facility] Comment on above: Order Comment: Speci men Type: URINE SPECIMENOrdering Facility: [facility] Address: [address] [place] [address] Performed By: #### 2 4356-8 ####KENDRICK LABORATORYCLIA [id number] [place] [address] [place] Leukocyte esterase Test strip Ql (U) 2+ Abnormal Negative [facility] Comment on above: Order Comment: Speci men Type: URINE SPECIMENOrdering Facility: [facility] Address: [address] [place] [address] Performed By: #### 2 4356-8 ####KENDRICK LABORATORYCLIA [id number] [address] [place] Nitrite Ql (U) Negative Normal Negative [facility] Comment on above: Order Comment: Speci men Type: URINE SPECIMENOrdering Facility: [facility] Address: [address] [place] [address] Performed By: #### 2 4356-8 ####KENDRICK LABORATORYCLIA [id number] [address] [place] pH (U) 7.5 [pH] Normal 5.0-8.0 [facility] Comment on above: Order Comment: Speci men Type: URINE SPECIMENOrdering Facility: [facility] Address: [address] [place] [address] Performed By: #### 2 4356-8 ####KENDRICK LABORATORYCLIA [id number] [address] Protein (U) [Mass/Vol] 2+ Abnormal Negative [facility] Comment on above: Order Comment: Speci men Type: URINE SPECIMENOrdering Facility: [facility] Address: [address] [place] [address] Performed By: #### 2 4356-8 ####KENDRICK LABORATORYCLIA [id number] [address] RBC LM.HPF (Urine sed) [#/Area] 0-3 /HPF Normal 0-3 /HPF [facility] Comment on above: Order Comment: Speci men Type: URINE SPECIMENOrdering Facility: [facility] Address: [address] [place] [address] Performed By: #### 2 4356-8 ####KENDRICK LABORATORYCLIA [id number] [address] Specific gravity (U) [Rel density] 1.010 Normal 1.005-1.030 [facility] Comment on above: Order Comment: Speci men Type: URINE SPECIMENOrdering Facility: [facility] Address: [address] [place] [address] Performed By: #### 2 4356-8 ####KENDRICK LABORATORYCLIA [id number] [address] Triple phosphate crystals LM.HPF (Urine sed) [#/Area] Moderate Abnormal None Seen [facility] Comment on above: Order Comment: Speci men Type: URINE SPECIMENOrdering Facility: [facility] Address: [address] [place] [address] Performed By: #### 2 4356-8 ####KENDRICK LABORATORYCLIA [id number] [address] Urobilinogen Ql (U) 1.0 EU/dL Normal 0.2-1.0 EU/dL [facility] Comment on above: Order Comment: Speci men Type: URINE SPECIMENOrdering Facility: [facility] Address: [address] [place] [address] Performed By: #### 2 4356-8 ####KENDRICK LABORATORYCLIA [id number] [address] STATES [facility] WBC LM.HPF (Urine sed) [#/Area] 6-10 /HPF Abnormal 0-5 /HPF [facility] Comment on above: Order Comment: Speci men Type: URINE SPECIMENOrdering Facility: [facility] Address: [address] [place] [address] Performed By: #### 2 4356-8 ####KENDRICK LABORATORYCLIA [id number] [address] CBC panel Auto (Bld)on 12-13 Erythrocyte distribution width (RBC) [Ratio] 13.0 % Normal 11.5-15.0 [facility] Comment on above: Order Comment: Speci men Type: BLOOD SPECIMENOrdering Facility: [facility] Address: [address] [place] [address] Performed By: #### 5 8410-2 ####KENDRICK LABORATORYCLIA [id number] [address] [place] Hematocrit (Bld) [Volume fraction] 41.1 % Normal 36.0-46.0 [facility] Comment on above: Order Comment: Speci men Type: BLOOD SPECIMENOrdering Facility: [facility] Address: [address] [place] [address] Performed By: #### 5 8410-2 ####KENDRICK LABORATORYCLIA [id number] [address] [place] Hemoglobin (Bld) [Mass/Vol] 13.8 g/dL Normal 11.5-15.5 [facility] Comment on above: Order Comment: Speci men Type: BLOOD SPECIMENOrdering Facility: [facility] Address: [address] [place] [address] Performed By: #### 5 8410-2 ####KENDRICK LABORATORYCLIA [id number] [address] [place] MCH (RBC) [Entitic mass] 31.4 pg Normal 26.0-34.0 [facility] Comment on above: Order Comment: Speci men Type: BLOOD SPECIMENOrdering Facility: [facility] Address: [address] [place] [address] Performed By: #### 5 8410-2 ####KENDRICK LABORATORYCLIA [id number] [address] MCHC (RBC) [Mass/Vol] 33.6 g/dL Normal 30.5-36.0 [facility] Comment on above: Order Comment: Speci men Type: BLOOD SPECIMENOrdering Facility: [facility] Address: [address] [place] [address] Performed By: #### 5 8410-2 ####KENDRICK LABORATORYCLIA [id number] [address] [place] MCV (RBC) [Entitic vol] 93.6 fL Normal 80.0-100.0 [facility] Comment on above: Order Comment: Speci men Type: BLOOD SPECIMENOrdering Facility: [facility] Address: [address] [place] [address] Performed By: #### 5 8410-2 ####KENDRICK LABORATORYCLIA [id number] [address] [place] Nucleated RBC (Bld) [#/Vol] 10*3/uL Normal <0.01 [facility] Comment on above: Order Comment: Speci men Type: BLOOD SPECIMENOrdering Facility: [facility] Address: [address] [place] [address] Performed By: #### 5 8410-2 ####KENDRICK LABORATORYCLIA [id number] [place] [address] [place] Platelet mean volume (Bld) [Entitic vol] 11.1 fL Normal 9.0-12.7 [facility] Comment on above: Order Comment: Speci men Type: BLOOD SPECIMENOrdering Facility: [facility] Address: [address] [place] [address] Performed By: #### 5 8410-2 ####KENDRICK LABORATORYCLIA [id number] [place] [address] [place] Platelets (Bld) [#/Vol] 238 10*3/uL Normal 150-400 [facility] Comment on above: Order Comment: Speci men Type: BLOOD SPECIMENOrdering Facility: [facility] Address: [address] [place] [address] Performed By: #### 5 8410-2 ####KENDRICK LABORATORYCLIA [id number] [place] [address] [place] RBC (Bld) [#/Vol] 4.39 10*6/uL Normal 3.90-5.20 [facility] Comment on above: Order Comment: Speci men Type: BLOOD SPECIMENOrdering Facility: [facility] Address: [address] [place] [address] Performed By: #### 5 8410-2 ####KENDRICK LABORATORYCLIA [id number] [address] [place] WBC (Bld) [#/Vol] 10.47 10*3/uL Normal 3.70-11.00 [facility] Comment on above: Order Comment: Speci men Type: BLOOD SPECIMENOrdering Facility: [facility] Address: [address] [place] [address] Performed By: #### 5 8410-2 ####KENDRICK LABORATORYCLIA [id number] [place] [address] [place] [facility] Comprehensive metabolic 2000 panelon 12-13-2024 Albumin [Mass/Vol] 3.9 g/dL Normal 3.9-4.9 [facility] Comment on above: Order Comment: Speci men Type: BLOOD SPECIMENOrdering Facility: [facility] Address: [address] [place] [address] Performed By: #### 2 4323-8 ####KENDRICK LABORATORYCLIA [id number] [place] [address] [place] ALP [Catalytic activity/Vol] 74 U/L Normal 34-123 [facility] Comment on above: Order Comment: Speci men Type: BLOOD SPECIMENOrdering Facility: [facility] Address: [address] [place] [address] Performed By: #### 2 4323-8 ####KENDRICK LABORATORYCLIA [id number] [address] ALT [Catalytic activity/Vol] 18 U/L Normal 7-38 [facility] Comment on above: Order Comment: Speci men Type: BLOOD SPECIMENOrdering Facility: [facility] Address: [address] [place] [address] Performed By: #### 2 4323-8 ####KENDRICK LABORATORYCLIA [id number] [address] [place] Anion gap [Moles/Vol] 11 mmol/L Normal 8-15 [facility] Comment on above: Order Comment: Speci men Type: BLOOD SPECIMENOrdering Facility: [facility] Address: [address] [place] [address] Performed By: #### 2 4323-8 ####KENDRICK LABORATORYCLIA [id number] [address] [place] [facility] AST [Catalytic activity/Vol] 25 U/L Normal 13-35 [facility] Comment on above: Order Comment: Speci men Type: BLOOD SPECIMENOrdering Facility: [facility] Address: [address] [place] [address] Performed By: #### 2 4323-8 ####KENDRICK LABORATORYCLIA [id number] [place] [address] [place] Bilirubin [Mass/Vol] 0.7 mg/dL Normal 0.2-1.3 [facility] Comment on above: Order Comment: Speci men Type: BLOOD SPECIMENOrdering Facility: [facility] Address: [address] [place] [address] Performed By: #### 2 4323-8 ####KENDRICK LABORATORYCLIA [id number] [place] [address] [place] Calcium [Mass/Vol] 10.6 mg/dL High 8.5-10.2 [facility] Comment on above: Order Comment: Speci men Type: BLOOD SPECIMENOrdering Facility: [facility] Address: [address] [place] [address] Performed By: #### 2 4323-8 ####KENDRICK LABORATORYCLIA [id number] [place] [address] [place] Chloride [Moles/Vol] 99 mmol/L Normal 98-107 [facility] Comment on above: Order Comment: Speci men Type: BLOOD SPECIMENOrdering Facility: [facility] Address: [address] [place] [address] Performed By: #### 2 4323-8 ####KENDRICK LABORATORYCLIA [id number] [place] [address] [place] CO2 [Moles/Vol] 29 mmol/L Normal 22-30 [facility] Comment on above: Order Comment: Speci men Type: BLOOD SPECIMENOrdering Facility: [facility] Address: [address] [place] [address] Performed By: #### 2 4323-8 ####KENDRICK LABORATORYCLIA [id number] [place] [address] [place] Creatinine [Mass/Vol] 0.33 mg/dL Low 0.58-0.96 [facility] Comment on above: Order Comment: Speci men Type: BLOOD SPECIMENOrdering Facility: [facility] Address: [address] [place] [address] Performed By: #### 2 4323-8 ####KENDRICK LABORATORYCLIA [id number] [place] [address] [place] Creatinine and Glomerular filtration rate.predicted panel (S/P/Bld) 101 mL/min/1.73m??? Normal >=60 [facility] Comment on above: Order Comment: Helena bronson Type: BLOOD SPECIMENOrdering Facility: [facility] Address: [address] [place] [address] Result Comment: Sara mated Glomerular Filtration Rate [...] Performed By: #### 2 4323-8 ####KENDRICK LABORATORYCLIA [id number] [place] [address] [place] Glucose [Mass/Vol] 101 mg/dL High 74-99 [facility] Comment on above: Order Comment: Helena bronson Type: BLOOD SPECIMENOrdering Facility: [facility] Address: [address] [place] [address] Result Comment: The [place] [employer] (ADA) provides guidance for cutoff [...] Standards of Medical Care in Diabetes 2016, [place] [employer]. Diabetes Care. 2016.39(Suppl 1). Performed By: #### 2 4323-8 ####KENDRICK LABORATORYCLIA [id number] [place] [address] [place] Potassium [Moles/Vol] 3.8 mmol/L Normal 3.7-5.1 [facility] Comment on above: Order Comment: Helena bronson Type: BLOOD SPECIMENOrdering Facility: [facility] Address: [address] [place] [address] Performed By: #### 2 4323-8 ####KENDRICK LABORATORYCLIA [id number] [place] [address] [place] Protein [Mass/Vol] 7.0 g/dL Normal 6.3-8.0 [facility] Comment on above: Order Comment: Speci men Type: BLOOD SPECIMENOrdering Facility: [facility] Address: [address] [place] [address] Performed By: #### 2 4323-8 ####KENDRICK LABORATORYCLIA [id number] [place] [address] [place] Sodium [Moles/Vol] 139 mmol/L Normal 136-144 [facility] Comment on above: Order Comment: Speci men Type: BLOOD SPECIMENOrdering Facility: [facility] Address: [address] [place] [address] Performed By: #### 2 4323-8 ####KENDRICK LABORATORYCLIA [id number] [place] [address] [place] Urea nitrogen [Mass/Vol] 41 mg/dL High 7-21 [facility] Comment on above: Order Comment: Speci men Type: BLOOD SPECIMENOrdering Facility: [facility] Address: [address] [place] [address] Performed By: #### 2 4323-8 ####KENDRICK LABORATORYCLIA [id number] [place] [address] [place] Basic metabolic 2000 panelon 12-12-2024 Anion gap [Moles/Vol] 15 mmol/L Normal 8-15 [facility] Comment on above: Order Comment: Speci men Type: BLOOD SPECIMENOrdering Facility: [facility] Address: [address] [place] [address] Performed By: #### 2 4321-2 ####KENDRICK LABORATORYCLIA [id number] [place] [address] [place] Calcium [Mass/Vol] 10.8 mg/dL High 8.5-10.2 [facility] Comment on above: Order Comment: Speci men Type: BLOOD SPECIMENOrdering Facility: [facility] Address: [address] [place] [address] Performed By: #### 2 4321-2 ####KENDRICK LABORATORYCLIA [id number] [address] Chloride [Moles/Vol] 98 mmol/L Normal 98-107 [facility] Comment on above: Order Comment: Speci men Type: BLOOD SPECIMENOrdering Facility: [facility] Address: [address] [place] [address] Performed By: #### 2 4321-2 ####KENDRICK LABORATORYCLIA [id number] [address] [place] CO2 [Moles/Vol] 26 mmol/L Normal 22-30 [facility] Comment on above: Order Comment: Speci men Type: BLOOD SPECIMENOrdering Facility: [facility] Address: [address] [place] [address] Performed By: #### 2 4321-2 ####KENDRICK LABORATORYCLIA [id number] [address] Creatinine [Mass/Vol] 0.30 mg/dL Low 0.58-0.96 [facility] Comment on above: Order Comment: Speci men Type: BLOOD SPECIMENOrdering Facility: [facility] Address: [address] [place] [address] Performed By: #### 2 4321-2 ####KENDRICK LABORATORYCLIA [id number] [address] Creatinine and Glomerular filtration rate.predicted panel (S/P/Bld) 103 mL/min/1.73m??? Normal >=60 [facility] Comment on above: Order Comment: Speci men Type: BLOOD SPECIMENOrdering Facility: [facility] Address: [address] [place] [address] Result Comment: Sara mated Glomerular Filtration Rate [...] actual GFR. Performed By: #### 2 4321-2 ####KENRDICK LABORATORYCLIA [id number] [place] [id number] [place] Glucose [Mass/Vol] 126 mg/dL High 74-99 [facility] Comment on above: Order Comment: Helena bronson Type: BLOOD SPECIMENOrdering Facility: [facility] Address: [address] [place] [address] Result Comment: The [place] [employer] (ADA) provides guidance for cutoff [...] Standards of Medical Care in Diabetes 2016, [place] [employer]. Diabetes Care. 2016.39(Suppl 1). Performed By: #### 2 4321-2 ####SADDLE BROOK LABORATORYCLIA [id number] [place] [id number] [place] Potassium [Moles/Vol] 3.4 mmol/L Low 3.7-5.1 [facility] Comment on above: Order Comment: Helena bronson Type: BLOOD SPECIMENOrdering Facility: [facility] Address: [address] [place] [address] Performed By: #### 2 4321-2 ####KENDRICK LABORATORYCLIA [id number] [place] [id number] [place] Sodium [Moles/Vol] 139 mmol/L Normal 136-144 [facility] Comment on above: Order Comment: Helena bronson Type: BLOOD SPECIMENOrdering Facility: [facility] Address: [address] [place] [address] Performed By: #### 2 4321-2 ####SADD[facility] BROOK LABORATORYCLIA [id number] [place] [address] [place] Urea nitrogen [Mass/Vol] 37 mg/dL High 7- [facility] Comment on above: Order Comment: Speci men Type: BLOOD SPECIMENOrdering Facility: [facility] Address: [address] [place] [address] Performed By: #### 2 4321-2 ####KENDRICK LABORATORYCLIA [id number] [place] [address] [place] CBC W Auto Differential pane l (Bld)on 12-12-2024 Basophils (Bld) [#/Vol] 10*3/uL Normal <0.11 [facility] Comment on above: Order Comment: Speci men Type: BLOOD SPECIMENOrdering Facility: [facility] Address: [address] [place] [address] Performed By: #### 5 7021-8 ####KENDRICK LABORATORYCLIA [id number] [place] [address] [place] Basophils/100 WBC (Bld) 0.1 % Normal [facility] Comment on above: Order Comment: Speci men Type: BLOOD SPECIMENOrdering Facility: [facility] Address: [address] [place] [address] Performed By: #### 5 7021-8 ####KENDRICK LABORATORYCLIA [id number] [place] [address] [place] [facility] Differential cell count method Nom (Bld) Auto Normal [facility] Comment on above: Order Comment: Speci men Type: BLOOD SPECIMENOrdering Facility: [facility] Address: [address] [place] [address] Performed By: #### 5 7021-8 ####KENDRICK LABORATORYCLIA [id number] [place] [address] [place] Eosinophils (Bld) [#/Vol] 10*3/uL Normal <0.46 [facility] Comment on above: Order Comment: Speci men Type: BLOOD SPECIMENOrdering Facility: [facility] Address: [address] [place] [address] Performed By: #### 5 7021-8 ####KENDRICK LABORATORYCLIA [id number] [place] [address] [place] Eosinophils/100 WBC (Bld) 0.0 % Normal [facility] Comment on above: Order Comment: Speci men Type: BLOOD SPECIMENOrdering Facility: [facility] Address: [address] [place] [address] Performed By: #### 5 7021-8 ####KENDRICK LABORATORYCLIA [id number] [place] [address] [place] Erythrocyte distribution width (RBC) [Ratio] 12.7 % Normal 11.5-15.0 [facility] Comment on above: Order Comment: Speci men Type: BLOOD SPECIMENOrdering Facility: [facility] Address: [address] [place] [address] Performed By: #### 5 7021-8 ####KENDRICK LABORATORYCLIA [id number] [place] [address] [place] Hematocrit (Bld) [Volume fraction] 40.3 % Normal 36.0-46.0 [facility] Comment on above: Order Comment: Speci men Type: BLOOD SPECIMENOrdering Facility: [facility] Address: [address] [place] [address] Performed By: #### 5 7021-8 ####KENDRICK LABORATORYCLIA [id number] [place] [address] [place] Hemoglobin (Bld) [Mass/Vol] 13.9 g/dL Normal 11.5-15.5 [facility] Comment on above: Order Comment: Speci men Type: BLOOD SPECIMENOrdering Facility: [facility] Address: [address] [place] [address] Performed By: #### 5 7021-8 ####KENDRICK LABORATORYCLIA [id number] [place] [address] [place] Immature granulocytes (Bld) [#/Vol] 0.06 10*3/uL Normal <0.10 [facility] Comment on above: Order Comment: Speci men Type: BLOOD SPECIMENOrdering Facility: [facility] Address: [address] [place] [address] Performed By: #### 5 7021-8 ####KENDRICK LABORATORYCLIA [id number] [address] Immature granulocytes/100 WBC (Bld) 0.5 % Normal [facility] Comment on above: Order Comment: Speci men Type: BLOOD SPECIMENOrdering Facility: [facility] Address: [address] [place] [address] Performed By: #### 5 7021-8 ####KENDRICK LABORATORYCLIA [id number] [address] Lymphocytes (Bld) [#/Vol] 0.71 10*3/uL Low 1.00-4.00 [facility] Comment on above: Order Comment: Speci men Type: BLOOD SPECIMENOrdering Facility: [facility] Address: [address] [place] [address] Performed By: #### 5 7021-8 ####KENDRICK LABORATORYCLIA [id number] [address] Lymphocytes/100 WBC (Bld) 5.7 % Normal [facility] Comment on above: Order Comment: Speci men Type: BLOOD SPECIMENOrdering Facility: [facility] Address: [address] [place] [address] Performed By: #### 5 7021-8 ####KENDRICK LABORATORYCLIA [id number] [address] [place] MCH (RBC) [Entitic mass] 31.7 pg Normal 26.0-34.0 [facility] Comment on above: Order Comment: Speci men Type: BLOOD SPECIMENOrdering Facility: [facility] Address: [address] [place] [address] Performed By: #### 5 7021-8 ####KENDRICK LABORATORYCLIA [id number] [address] STATES [facility] MCHC (RBC) [Mass/Vol] 34.5 g/dL Normal 30.5-36.0 [facility] Comment on above: Order Comment: Speci men Type: BLOOD SPECIMENOrdering Facility: [facility] Address: [address] [place] [address] Performed By: #### 5 7021-8 ####KENDRICK LABORATORYCLIA [id number] [place] [address] [place] MCV (RBC) [Entitic vol] 91.8 fL Normal 80.0-100.0 [facility] Comment on above: Order Comment: Speci men Type: BLOOD SPECIMENOrdering Facility: [facility] Address: [address] [place] [address] Performed By: #### 5 7021-8 ####KENDRICK LABORATORYCLIA [id number] [place] [address] [place] Monocytes (Bld) [#/Vol] 1.20 10*3/uL High <0.87 [facility] Comment on above: Order Comment: Speci men Type: BLOOD SPECIMENOrdering Facility: [facility] Address: [address] [place] [address] Performed By: #### 5 7021-8 ####KENDRICK LABORATORYCLIA [id number] [address] [place] Monocytes/100 WBC (Bld) 9.6 % Normal [facility] Comment on above: Order Comment: Speci men Type: BLOOD SPECIMENOrdering Facility: [facility] Address: [address] [place] [address] Performed By: #### 5 7021-8 ####KENDRICK LABORATORYCLIA [id number] [place] [address] [place] Neutrophils (Bld) [#/Vol] 10.52 10*3/uL High 1.45-7.50 [facility] Comment on above: Order Comment: Speci men Type: BLOOD SPECIMENOrdering Facility: [facility] Address: [address] [place] [address] Performed By: #### 5 7021-8 ####KENDRICK LABORATORYCLIA [id number] [place] [address] [place] Neutrophils/100 WBC (Bld) 84.1 % Normal [facility] Comment on above: Order Comment: Speci men Type: BLOOD SPECIMENOrdering Facility: [facility] Address: [address] [place] [address] Performed By: #### 5 7021-8 ####KENDRICK LABORATORYCLIA [id number] [place] [address] [place] Nucleated RBC (Bld) [#/Vol] 10*3/uL Normal <0.01 [facility] Comment on above: Order Comment: Speci men Type: BLOOD SPECIMENOrdering Facility: [facility] Address: [address] [place] [address] Performed By: #### 5 7021-8 ####KENDRICK LABORATORYCLIA [id number] [place] [address] [place] Nucleated RBC/100 WBC (Bld) [Ratio] 0.0 /100 WBC Normal [facility] Comment on above: Order Comment: Speci men Type: BLOOD SPECIMENOrdering Facility: [facility] Address: [address] [place] [address] Performed By: #### 5 7021-8 ####KENDRICK LABORATORYCLIA [id number] [place] [address] [place] Platelet mean volume (Bld) [Entitic vol] 10.5 fL Normal 9.0-12.7 [facility] Comment on above: Order Comment: Speci men Type: BLOOD SPECIMENOrdering Facility: [facility] Address: [address] [place] [address] Performed By: #### 5 7021-8 ####KENDRICK LABORATORYCLIA [id number] [place] [address] [place] Platelets (Bld) [#/Vol] 239 10*3/uL Normal 150-400 [facility] Comment on above: Order Comment: Speci men Type: BLOOD SPECIMENOrdering Facility: [facility] Address: [address] [place] [address] Performed By: #### 5 7021-8 ####KENDRICK LABORATORYCLIA [id number] [place] [address] [place] RBC (Bld) [#/Vol] 4.39 10*6/uL Normal 3.90-5.20 [facility] Comment on above: Order Comment: Speci men Type: BLOOD SPECIMENOrdering Facility: [facility] Address: [facility] [place] [address] Performed By: #### 5 7021-8 ####S[facility] BROOK LABORATORYCLIA [id number] [place] [address] [place] WBC (Bld) [#/Vol] 12.50 10*3/uL High 3.70-11.00 [facility] Comment on above: Order Comment: Speci men Type: BLOOD SPECIMENOrdering Facility: [facility] Address: [address] [place] [address] [place] [address] Performed By: #### 5 7021-8 ####S[facility] LABORATORYCLIA [id number] [place] [address] [place] ED NOTEon 12-12-2024 ED NOTE HNO ID: [id number] Author: JESSENIA PARIKH RN Service: ? Author Type: Registered Nurse Type: ED Notes Filed: 12/12/2024 11:39 Note Text: Bed: ED-19 Expected date: Expected time: Means of arrival: [place] [facility] Comments: 84 F Needs SNF placement Fell 8 days ago Normal [facility] ED PROV NOTEon 12-12-2024 ED PROV NOTE HNO ID: [id number] Author: TARA ENCARNACION MD Service: Emergency Medicine [...] to SNF. She was discharged back to [facility] assisted living where PT saw her today [...] for couple days. She went back to [facility] [place] to her assisted living facility at [facility]. She had physical therapy at today. She [...] 03/30/2013 normal exam EGD 03/30/2013 hiatal hernia, Oj-Rafael Grade III reflux esophagitis, gastric polyps EGD [...] diarrhea Vioxx [Rofecoxib] Intolerance Makes capillaryblood vessels break" Novocain [Procaine * Intolerance headaches [place]-3 Fish Oil [O* Intolerance bleeding in eye Advil [Ibuprofen] Intolerance Makes capillary blood vessels bread" Asa [Salicylates] Intolerance Makes capillary blood vessels break" Review of Systems Constitutional: Negative for fever. Musculoskeletal: Positive for back pain. Physical Exam Vitals BP Pulse Temp Temp src Resp SpO2 Weight Height 12/12/24 1329 12/12/24 1229 12/12/24 1139 12/12/24 1139 -- 12/12/24 1229 12/12/24 1139 12/12/24 1139 178/84 (!) 103 36.5 ?C (97.7 ?F) Oral 96 % 70.5 kg (155 lb 6.8 oz) 1.422 m (4' 8") Physical Exam Vitals and nursing note reviewed. [...] back pa (more content not included)... Normal [facility] HISTORY PHYSICALon HISTORY PHYSICAL HNO ID: [id number] Author: GEORGINA RICHARDSON MD Service: Hospital Medicine Author Type: Physician Type: H&P Filed: 12/12/2024 22:35 Note Text: DEPARTMENT OF HOSPITAL MEDICINE HISTORY AND PHYSICAL EXAM SERVICE DATE: 12/12/2024 SERVICE TIME: 4:27 PM Primary Care Physician: Sahra Guy MD NIGHT AND WEEKEND COVERAGE: [facility] COVERAGE: Days: [phone], please page attending physician. Nights: [phone], please page [facility] Night coverage pager [phone]. 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 Patient is accompanied by her daughter. Per daughter, patient has had numerous falls since August of 2024. Most recent fall was on 12/04/2024. She was admitted to [facility]. At this time, CT L-spine and [...] take care of her. Daughter has called [facility] - transitional care have beds available. Last BM on Thursday12/04/2024. Patient is not eating well because of nausea. She also states that she has a right sided hernia that causes intermittent pain but none right now. She denies chest pain, SOB, dizziness, abdominal pain/distension - other negative ROS found below. The history is provided by the patient and a relative. No trash collector supervisor was used. PAST MEDICAL HISTORY Diagnosis Date [...] diarrhea Vioxx [Rofecoxib] Intolerance Makes capillaryblood vessels break" Novocain [Procaine * Intolerance headaches [place]-3 Fish Oil [O* Intolerance bleeding in eye Advil [Ibuprofen] Intolerance Makes capillary blood vessels bread" Asa [Salicylates] Intolerance Makes capillary blood vessels break" Revi (more content not included)... Normal [facility] CBC panel Auto (Bld)on 12-10 Erythrocyte distribution width (RBC) [Ratio] 12.4 % Normal 11.5-15.0 [facility] Comment on above: Order Comment: Helena bronson Type: BLOOD SPECIMENOrdering Facility: [facility] Address: [address] [place] [address] Performed By: #### 5 8410-2 ####[facility] LABORATORYCLIA [id number] [address] STATES OF [facility] Hematocrit (Bld) [Volume fraction] 40.0 % Normal 36.0-46.0 [facility] Comment on above: Order Comment: Helena bronson Type: BLOOD SPECIMENOrdering Facility: [facility] Address: [address] [place] [address] Performed By: #### 5 8410-2 ####[facility]DRICK LABORATORYCLIA [id number] [address] OF [place] Hemoglobin (Bld) [Mass/Vol] 13.8 g/dL Normal 11.5-15.5 [facility] Comment on above: Order Comment: Speci men Type: BLOOD SPECIMENOrdering Facility: [facility] Address: [address] [place] [address] Performed By: #### 5 8410-2 ####KENDRICK LABORATORYCLIA [id number] [address] MCH (RBC) [Entitic mass] 31.7 pg Normal 26.0-34.0 [facility] Comment on above: Order Comment: Speci men Type: BLOOD SPECIMENOrdering Facility: [facility] Address: [address] [place] [address] Performed By: #### 5 8410-2 ####KENDRICK LABORATORYCLIA [id number] [address] MCHC (RBC) [Mass/Vol] 34.5 g/dL Normal 30.5-36.0 [facility] Comment on above: Order Comment: Speci men Type: BLOOD SPECIMENOrdering Facility: [facility] Address: [address] [place] [address] Performed By: #### 5 8410-2 ####KENDRICK LABORATORYCLIA [id number] [address] MCV (RBC) [Entitic vol] 91.7 fL Normal 80.0-100.0 [facility] Comment on above: Order Comment: Speci men Type: BLOOD SPECIMENOrdering Facility: [facility] Address: [address] [place] [address] Performed By: #### 5 8410-2 ####KENDRICK LABORATORYCLIA [id number] [address] Nucleated RBC (Bld) [#/Vol] 10*3/uL Normal <0.01 [facility] Comment on above: Order Comment: Speci men Type: BLOOD SPECIMENOrdering Facility: [facility] Address: [address] [place] [address] Performed By: #### 5 8410-2 ####KENDRICK LABORATORYCLIA [id number] [address] [place] Platelet mean volume (Bld) [Entitic vol] 10.9 fL Normal 9.0-12.7 [facility] Comment on above: Order Comment: Speci men Type: BLOOD SPECIMENOrdering Facility: [facility] Address: [address] [place] [address] Performed By: #### 5 8410-2 ####KENDRICK LABORATORYCLIA [id number] [place] [address] [facility] [place] Platelets (Bld) [#/Vol] 205 10*3/uL Normal 150-400 [facility] Comment on above: Order Comment: Speci men Type: BLOOD SPECIMENOrdering Facility: [facility] Address: [address] [place] [address] Performed By: #### 5 8410-2 ####KENDRICK LABORATORYCLIA [id number] [place] [address] [facility] [place] RBC (Bld) [#/Vol] 4.36 10*6/uL Normal 3.90-5.20 [facility] Comment on above: Order Comment: Speci men Type: BLOOD SPECIMENOrdering Facility: [facility] Address: [facility] [place] [address] Performed By: #### 5 8410-2 ####KENDRICK LABORATORYCLIA [id number] [address] [place] WBC (Bld) [#/Vol] 7.99 10*3/uL Normal 3.70-11.00 [facility] Comment on above: Order Comment: Speci men Type: BLOOD SPECIMENOrdering Facility: [facility] Address: [address] [place] [address] Performed By: #### 5 8410-2 ####KENDRICK LABORATORYCLIA [id number] [address] [place] CNCOon 12-10-2024 CNCO Letter Text Normal [facility] CNDSon 12-10-2024 CNDS HNO ID: [id number] Author: DIANE WILSON MD Service: Hospital Medicine [...] DURING HOSPITALIZATION: Neurology: Treatment Team: Primary Service: Sd, [facility] REASON FOR HOSPITALIZATION: weakness, back pain FINAL DIAGNOSIS: sciatica Active Hospital Problems Diagnosis POA Frequent falls Yes Hypertension Unknown Fall at senior care Yes BMI 37.0-37.9, adult Yes Dysphagia Yes [...] (Oral) Resp 20 Ht 142.2 cm (4' 8") Wt 72.6 kg (160 lb 0.9 oz) [...] diarrhea Vioxx [Rofecoxib] Intolerance Makes capillaryblood vessels break" Novocain [Procaine * Intolerance headaches [place]-3 Fish Oil [O* Intolerance bleeding in eye Advil [Ibuprofen] Intolerance Makes capillary blood vessels bread" Asa [Salicylates] Intolerance Makes capillary blood vessels break" DISCHARGE MEDICATION: Medication List START taking these [...] TAKE 1 (more content not included)... Normal [facility] Comprehensive metabolic 2000 panelon 12-10-2024 Albumin [Mass/Vol] 3.7 g/dL Low 3.9-4.9 [facility] Comment on above: Order Comment: Speci men Type: BLOOD SPECIMENOrdering Facility: [facility] Address: [address] [place] [address] Performed By: #### 2 4323-8 ####KENDRICK LABORATORYCLIA [id number] [address] ALP [Catalytic activity/Vol] 69 U/L Normal 34-123 [facility] Comment on above: Order Comment: Speci men Type: BLOOD SPECIMENOrdering Facility: [facility] Address: [address] [place] [address] Performed By: #### 2 4323-8 ####KENDRICK LABORATORYCLIA [id number] [address] ALT [Catalytic activity/Vol] 12 U/L Normal 7-38 [facility] Comment on above: Order Comment: Speci men Type: BLOOD SPECIMENOrdering Facility: [facility] Address: [address] [place] [address] Performed By: #### 2 4323-8 ####KENDRICK LABORATORYCLIA [id number] [address] Anion gap [Moles/Vol] 10 mmol/L Normal 8-15 [facility] Comment on above: Order Comment: Speci men Type: BLOOD SPECIMENOrdering Facility: [facility] Address: [address] [place] [address] Performed By: #### 2 4323-8 ####KENDRICK LABORATORYCLIA [id number] [address] AST [Catalytic activity/Vol] 17 U/L Normal 13-35 [facility] Comment on above: Order Comment: Speci men Type: BLOOD SPECIMENOrdering Facility: [facility] Address: [address] [place] [address] Performed By: #### 2 4323-8 ####KENDRICK LABORATORYCLIA [id number] [place] [address] [place] Bilirubin [Mass/Vol] 0.5 mg/dL Normal 0.2-1.3 [facility] Comment on above: Order Comment: Speci men Type: BLOOD SPECIMENOrdering Facility: [facility] Address: [address] [place] [address] Performed By: #### 2 4323-8 ####KENDRICK LABORATORYCLIA [id number] [place] [address] [place] Calcium [Mass/Vol] 9.7 mg/dL Normal 8.5-10.2 [facility] Comment on above: Order Comment: Speci men Type: BLOOD SPECIMENOrdering Facility: [facility] Address: [address] [place] [address] Performed By: #### 2 4323-8 ####KENDRICK LABORATORYCLIA [id number] [place] [address] [place] Chloride [Moles/Vol] 99 mmol/L Normal 98-107 [facility] Comment on above: Order Comment: Speci men Type: BLOOD SPECIMENOrdering Facility: [facility] Address: [address] [place] [address] Performed By: #### 2 4323-8 ####KENRDICK LABORATORYCLIA [id number] [place] [address] [place] CO2 [Moles/Vol] 28 mmol/L Normal 22-30 [facility] Comment on above: Order Comment: Speci men Type: BLOOD SPECIMENOrdering Facility: [facility] Address: [address] [place] [address] Performed By: #### 2 4323-8 ####KENDRICK LABORATORYCLIA [id number] [place] [address] [place] Creatinine [Mass/Vol] 0.34 mg/dL Low 0.58-0.96 [facility] Comment on above: Order Comment: Speci men Type: BLOOD SPECIMENOrdering Facility: [facility] Address: [address] [place] [address] Performed By: #### 2 4323-8 ####KENDRICK LABORATORYCLIA [id number] [place] [address] [place] Creatinine and Glomerular filtration rate.predicted panel (S/P/Bld) 100 mL/min/1.73m??? Normal >=60 [facility] Comment on above: Order Comment: Helena bronson Type: BLOOD SPECIMENOrdering Facility: [facility] Address: [address] [place] [address] Result Comment: Sara mated Glomerular Filtration Rate [...] actual GFR. Performed By: #### 2 4323-8 ####[facility] LABORATORYCLIA [id number] [place] [id number] [place] Glucose [Mass/Vol] 95 mg/dL Normal 74-99 [facility] Comment on above: Order Comment: Helena bronson Type: BLOOD SPECIMENOrdering Facility: [facility] Address: [address] [place] [address] Result Comment: The [place] [employer] (ADA) provides guidance for cutoff [...] Standards of Medical Care in Diabetes 2016, [place] [employer]. Diabetes Care. 2016.39(Suppl 1). Performed By: #### 2 4323-8 ####[facility] LABORATORYCLIA [id number] [place] [address] [place] Potassium [Moles/Vol] 3.6 mmol/L Low 3.7-5.1 [facility] Comment on above: Order Comment: Speci men Type: BLOOD SPECIMENOrdering Facility: [facility] Address: [address] [place] [address] Performed By: #### 2 4323-8 ####KENDRICK LABORATORYCLIA [id number] [place] [address] [place] [facility] Protein [Mass/Vol] 6.9 g/dL Normal 6.3-8.0 [facility] Comment on above: Order Comment: Speci men Type: BLOOD SPECIMENOrdering Facility: [facility] Address: [address] [place] [address] Performed By: #### 2 4323-8 ####KENDRICK LABORATORYCLIA [id number] [address] STATES OF [place] Sodium [Moles/Vol] 137 mmol/L Normal 136-144 [facility] Comment on above: Order Comment: Speci men Type: BLOOD SPECIMENOrdering Facility: [facility] Address: [address] [place] [address] Performed By: #### 2 4323-8 ####KENDRICK LABORATORYCLIA [id number] [address] [place] Urea nitrogen [Mass/Vol] 12 mg/dL Normal 7-21 [facility] Comment on above: Order Comment: Speci men Type: BLOOD SPECIMENOrdering Facility: [facility] Address: [address] [place] [address] Performed By: #### 2 4323-8 ####KENDRICK LABORATORYCLIA [id number] [place] [id number] [facility] [place] THERAPY NTon 12-10-2024 THERAPY NT HNO ID: [id number] Author: MARCELINO JARQUIN, PT Service: Physical Therapy Author Type: Physical Therapist Type: Therapy (PT/OT/Speech/Resp) Filed: 12/10/2024 13:12 Note Text: PHYSICAL THERAPY MISSED VISIT SERVICE DATE: 12/10/2024 SERVICE TIME: 1137 ROOM: [place] [address] Patient not seen due to Declined to [...] DATE: December 10, 2024 TIME: 1:06 PM [facility] THERAPY NT HNO ID: [id number] Author: TENA LEY CCC-TABLEMAN Service: Speech/Swallow Author Type: Speech Language Pathologist Type: Therapy (PT/OT/Speech/Resp) Filed: 12/10/2024 09:25 Note Text: Summary: Speech Speech Therapy Clinical Swallow Evaluation SERVICE DATE: 12/10/2024 SERVICE TIME: 0830 to 0910 ROOM: [place] [address]- IMPRESSION Swallow Deficits Identified / Suspected: Oral [...] Dysphagia, oral phase TREATMENT INTERVENTIONS Dysphagia Therapy (24573), Clinical Swallow Evaluation (46472) Skilled Treatment Time (minutes): 40 TRAINING AND [...] education, Pt demonstrate frequent re-positioning) 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: TABLEMAN Fed Patient Consistencies Presented: Thin Liquids IDDSI [...] meals., Oral Care before and after meals [place] Swallow Protocol: Fail Fail: Patient stopping prior to completion (small sips) Suspected Esophageal Deficits: PMHx: GERD (more content not included)... Normal [facility] ACETYLCHOLINE REC BINDING AB on 12-09-2024 ACETYLCHOLINE BINDING, QUAL Negative Normal Negative [facility] Comment on above: Order Comment: Speci men Type: BLOOD SPECIMENOrdering Facility: [facility] Address: [address] [place] [address] Result Comment: Anti -acetylcholine receptor binding antibody test is used as an aid in diagnosis of myasthenia gravis. A negative result cannot exclude myasthenia gravis. Clinical correlation is required. Performed By: #### A CHRAB ####[facility] LABCLIA [id number] [place] [address] [place] Acetylcholine receptor binding Ab (S) [Moles/Vol] 0.03 nmol/L Normal <0.21 [facility] Comment on above: Order Comment: Helena bronson Type: BLOOD SPECIMENOrdering Facility: [facility] Address: [address] [place] [address] Performed By: #### A CHRAB ####[facility] LABCLIA [id number] [place] [address] [place] ALLIED HEALTHon 12-09-2024 ALLIED HEALTH HNO ID: [id number] Author: JONATHAN MARSHALL Tech Service: Radiology Author Type: Braider Setter Type: [facility] Filed: 12/09/2024 16:52 Note Text: Radiology Service [...] PATIENT PRESENTS WITH AN IMPLANTABLE OR ATTACHED NET C DEVELOPER: No RADIOLOGY DEPARTMENT: Ultrasound PERIPHERAL IV DATA: Not applicable SIGNED BY: David Bone December 09, 2024 4:51 PM [facility] HNO ID: [id number] Author: SRIKANTH MEDINA Tech Service: ? Author Type: Braider Setter Type: [facility] Filed: 12/09/2024 15:22 Note Text: Radiology Service [...] PATIENT PRESENTS WITH AN IMPLANTABLE OR ATTACHED NET C DEVELOPER: No RADIOLOGY DEPARTMENT: General X-ray: Exam(s) Completed: Pelvis X-Ray: Pelvis with Hip Right and Pelvis inlet/outlet PERIPHERAL IV DATA: Not applicable SIGNED BY: David Martinez December 09, 2024 3:21 PM [facility] CBC panel Auto (Bld)on 12-09 Erythrocyte distribution width (RBC) [Ratio] 12.5 % Normal 11.5-15.0 [facility] Comment on above: Order Comment: Speci men Type: BLOOD SPECIMENOrdering Facility: [facility] Address: [address] [place] [address] Performed By: #### 5 8410-2 ####KENDRICK LABORATORYCLIA [id number] [address] OF [facility] Hematocrit (Bld) [Volume fraction] 37.0 % Normal 36.0-46.0 [facility] Comment on above: Order Comment: Speci men Type: BLOOD SPECIMENOrdering Facility: [facility] Address: [address] [place] [address] Performed By: #### 5 8410-2 ####KENDRICK LABORATORYCLIA [id number] [address] [place] Hemoglobin (Bld) [Mass/Vol] 12.9 g/dL Normal 11.5-15.5 [facility] Comment on above: Order Comment: Speci men Type: BLOOD SPECIMENOrdering Facility: [facility] Address: [address] [place] [address] Performed By: #### 5 8410-2 ####KENDRICK LABORATORYCLIA [id number] [address] MCH (RBC) [Entitic mass] 32.2 pg Normal 26.0-34.0 [facility] Comment on above: Order Comment: Speci men Type: BLOOD SPECIMENOrdering Facility: [facility] Address: [address] [place] [address] Performed By: #### 5 8410-2 ####KENDRICK LABORATORYCLIA [id number] [address] MCHC (RBC) [Mass/Vol] 34.9 g/dL Normal 30.5-36.0 [facility] Comment on above: Order Comment: Speci men Type: BLOOD SPECIMENOrdering Facility: [facility] Address: [address] [place] [address] Performed By: #### 5 8410-2 ####KENDRICK LABORATORYCLIA [id number] [address] MCV (RBC) [Entitic vol] 92.3 fL Normal 80.0-100.0 [facility] Comment on above: Order Comment: Speci men Type: BLOOD SPECIMENOrdering Facility: [facility] Address: [address] [place] [address] Performed By: #### 5 8410-2 ####KENDRICK LABORATORYCLIA [id number] [place] [address] [place] Nucleated RBC (Bld) [#/Vol] 10*3/uL Normal <0.01 [facility] Comment on above: Order Comment: Speci men Type: BLOOD SPECIMENOrdering Facility: [facility] Address: [address] [place] [address] Performed By: #### 5 8410-2 ####[facility]DRICK LABORATORYCLIA [id number] [place] [address] [place] Platelet mean volume (Bld) [Entitic vol] 10.8 fL Normal 9.0-12.7 [facility] Comment on above: Order Comment: Speci men Type: BLOOD SPECIMENOrdering Facility: [facility] Address: [address] [place] [address] Performed By: #### 5 8410-2 ####[facility] LABORATORYCLIA [id number] [place] [address] [place] Platelets (Bld) [#/Vol] 184 10*3/uL Normal 150-400 [facility] Comment on above: Order Comment: Speci men Type: BLOOD SPECIMENOrdering Facility: [facility] Address: [address] [place] [address] Performed By: #### 5 8410-2 ####[facility] LABORATORYCLIA [id number] [place] [address] [place] RBC (Bld) [#/Vol] 4.01 10*6/uL Normal 3.90-5.20 [facility] Comment on above: Order Comment: Speci men Type: BLOOD SPECIMENOrdering Facility: [facility] Address: [address] [place] [address] Performed By: #### 5 8410-2 ####[facility] LABORATORYCLIA [id number] [place] [address] [place] WBC (Bld) [#/Vol] 6.41 10*3/uL Normal 3.70-11.00 [facility] Comment on above: Order Comment: Speci men Type: BLOOD SPECIMENOrdering Facility: [facility] Address: [address] [place] [address] Performed By: #### 5 8410-2 ####[facility] LABORATORYCLIA [id number] [place] [address] [facility] [place] CONSULTon 12-09-2024 CONSULT HNO ID: [id number] Author: MILI MANZANARES MD Service: Neurology General Author Type: Physician Type: Consults Filed: 12/09/2024 16:28 Note Text: The Teleneurologist or LULI is available from 8 am to 5 pm on weekdays. On weekends, at [facility], the Teleneurologist or LULI is available from 8 am to 5 pm, [facility] 8 am to 12 pm, [facility] 1 pm to 5 pm, [facility] 8 am to 12 pm, [facility] 1 pm to 5 pm. Statutory holidays do not have teleneuro coverage. [facility]: During Off hours for Teleneurology please page (not call) [facility] [id number] continuous improvement director for concerns. [facility]: During Off hours for Teleneurology please page (not call) [facility] [address] continuous improvement director for concerns. [facility]: There is no off-hours coverage for Teleneurology. NEUROLOGY CONSULTATION Thank you for the consultation request. Name: Tena Cannon Age: [age] year old Gender: female Chief Complaint:Fall (Sent in from pcp to see if kidney infx or uti.had fall sun. Been weak, tired, nausea and back pain since fall Thursday from [facility].) Admission Date: 12/08/2024 Consult Requested By: , [...] has not been able to walk for "quite a while". She fell forward from her wheelchair and [...] (Oral) Resp 18 Ht 142.2 cm (4' 8") Wt 72.6 kg (160 lb 0.9 oz) [...] CPAP Fal (more content not included)... Normal [facility] CRP SerPl-mCncon 12-09-2024 CRP [Mass/Vol] 2.1 mg/dL High <0.9 [facility] Comment on above: Order Comment: Speci men Type: BLOOD SPECIMENOrdering Facility: [facility] Address: [address] [place] [address] [place] [address] Performed By: #### 2 4362-6, 1987-12 ####[facility] LABORATORYCLIA [id number] [address] [place] ECG COMPLETEon 12-09-2024 ECG COMPLETE Ventricular Rate : 8 2 BPM Atrial Rate : 82 BPM P-R Interval : 206 ms QRS Duration : 86 ms Q-T Interval : 350 ms QTC Calculation(Bazett) : 408 ms Calculated P [place] : 49 degrees Calculated R [place] : -10 degrees Calculated T [place] : 35 degrees NORMAL SINUS RHYTHM WITH SINUS ARRHYTHMIA NORMAL ECG WHEN COMPARED WITH ECG OF 29-Jul-2018 10:48, NO SIGNIFICANT CHANGE WAS FOUND Confirmed by WOLF MUNOZ MD ([id number]) on 12/09/2024 5:41:23 PM NAME : TENA CANNON PID : [id number] : 1940 Gender : Female Race : ORD : [id number] Procedure Date : Dec 09 2024 01:11:37 Edit Date : Dec 09 2024 17:41:24 Diagnosis: NORMAL SINUS RHYTHM WITH SINUS ARRHYTHMIA NORMAL ECG WHEN COMPARED WITH ECG OF 29-Jul-2018 10:48, NO SIGNIFICANT CHANGE WAS FOUND Confirmed by WOLF MUNOZ MD ([id number]) on 12/09/2024 5:41:23 PM Test Reason : Arrhythmia Location : 5 : 3S 0323 Overread By : WOLF MUNOZ MD Edited By : WOLF MUNOZ MD Referred By : , Acquired by : Elton Woody, Normal [facility] Renal function 2000 panelon 12-09-2024 Albumin [Mass/Vol] 3.6 g/dL Low 3.9-4.9 [facility] Comment on above: Order Comment: Noreeni men Type: BLOOD SPECIMENOrdering Facility: [facility] Address: [address] [place] [address] Performed By: #### 2 43626, 1987-12 ####[facility] LABORATORYCLIA [id number] [address] STATES OF [facility] Anion gap [Moles/Vol] 12 mmol/L Normal 8-15 [facility] Comment on above: Order Comment: Speci men Type: BLOOD SPECIMENOrdering Facility: [facility] Address: [address] [place] [address] Performed By: #### 2 4362-6, 1987-12 ####[facility] LABORATORYCLIA [id number] [place] [id number] [place] Calcium [Mass/Vol] 9.5 mg/dL Normal 8.5-10.2 [facility] Comment on above: Order Comment: Speci men Type: BLOOD SPECIMENOrdering Facility: [facility] Address: [address] [place] [address] Performed By: #### 2 4362-6, 1987-12 ####[facility] LABORATORYCLIA [id number] [address] OF [place] Chloride [Moles/Vol] 100 mmol/L Normal 98-107 [facility] Comment on above: Order Comment: Speci men Type: BLOOD SPECIMENOrdering Facility: [facility] Address: [address] [place] [address] Performed By: #### 2 43609-08, 1987-12 ####[facility] LABORATORYCLIA [id number] [place] [id number] [place] CO2 [Moles/Vol] 23 mmol/L Normal 22-30 [facility] Comment on above: Order Comment: Helena bronson Type: BLOOD SPECIMENOrdering Facility: [facility] Address: [address] [place] [address] Performed By: #### 2 43609-08, 1987-12 ####[facility] LABORATORYCLIA [id number] [place] [address] [place] Creatinine [Mass/Vol] 0.31 mg/dL Low 0.58-0.96 [facility] Comment on above: Order Comment: Helena bronson Type: BLOOD SPECIMENOrdering Facility: [facility] Address: [address] [place] [address] Performed By: #### 2 43609-08, 1987-12 ####[facility] LABORATORYCLIA [id number] [address] Creatinine and Glomerular filtration rate.predicted panel (S/P/Bld) 103 mL/min/1.73m??? Normal >=60 [facility] Comment on above: Order Comment: Helena bronson Type: BLOOD SPECIMENOrdering Facility: [facility] Address: [address] [place] [address] Result Comment: Sara mated Glomerular Filtration Rate [...] By: #### 2 43609-08, 1987-12 ####KENDRICK LABORATORYCLIA [id number] [place] [id number] [place] Glucose [Mass/Vol] 121 mg/dL High 74-99 [facility] Comment on above: Order Comment: Helena bronson Type: BLOOD SPECIMENOrdering Facility: [facility] Address: [address] [id number] Result Comment: The [place] [employer] (ADA) provides guidance for cutoff [...] Standards of Medical Care in Diabetes 2016, [place] [employer]. Diabetes Care. 2016.39(Suppl 1). Performed By: #### 2 43609-08, 1987-12 ####KENDRICK LABORATORYCLIA [id number] [place] [address] [place] Phosphate [Mass/Vol] 2.8 mg/dL Normal 2.7-4.8 [facility] Comment on above: Order Comment: Speci men Type: BLOOD SPECIMENOrdering Facility: [facility] Address: [address] [place] [address] Performed By: #### 2 43609-08, 1987-12 ####KENDRICK LABORATORYCLIA [id number] [place] [address] [place] Potassium [Moles/Vol] 3.8 mmol/L Normal 3.7-5.1 [facility] Comment on above: Order Comment: Noreeni men Type: BLOOD SPECIMENOrdering Facility: [facility] Address: [address] [id number] Performed By: #### 2 43609-08, 1987-12 ####KENDRICK LABORATORYCLIA [id number] [place] [address] [place] Sodium [Moles/Vol] 135 mmol/L Low 136-144 [facility] Comment on above: Order Comment: Noreeni men Type: BLOOD SPECIMENOrdering Facility: [facility] Address: [address] [id number] Performed By: #### 2 43609-08, 1987-12 ####KENDRICK LABORATORYCLIA [id number] [place] [id number] [facility] Urea nitrogen [Mass/Vol] 15 mg/dL Normal 7-21 [facility] Comment on above: Order Comment: Speci men Type: BLOOD SPECIMENOrdering Facility: [facility] Address: [address] [id number] Performed By: #### 2 4362-6, 1987-12 ####SADDLE BROOK LABORATORYCLIA [id number] [place] [id number] [facility] THERAPY NTon 12-09-2024 THERAPY NT HNO ID: [id number] Author: WHIT MONSON CCC-BRIGIDO Service: Speech/Swallow Author Type: Speech Language Pathologist Type: Therapy (PT/OT/Speech/Resp) Filed: 12/09/2024 15:07 Note Text: Summary: TABLEMAN Missed Visit SPEECH THERAPY MISSED VISIT SERVICE DATE: 12/09/2024 SERVICE TIME: 1507 ROOM: [place] [address] ([facility]) Patient not seen due to Test / Procedure. -pt is off the floor at this time. SIGNATURE: Whit Darling CCC-TABLEMAN PATIENT NAME: Tena Cannon DATE: December 09, 2024 TIME: 3:07 PM Normal [facility] THERAPY NT HNO ID: [id number] Author: MARTHA DAMON OT/L Service: Occupational Therapy Author Type: Occupational Therapist Type: Therapy (PT/OT/Speech/Resp) Filed: 12/09/2024 13:06 Note Text: Summary: OT Evaluation Occupational Therapy Evaluation Summary SERVICE DATE: 12/09/2024 SERVICE TIME: 1149 to 1241 ROOM: [place] [address] OT 6 Clicks Score: 13 DISCHARGE RECOMMENDATIONS [...] With: Facility Care, Other: See Comment Comments: [facility] in [place] Assistance Available: 24-Hour Entry To Home: No [...] daily living (ADL) TREATMENT INTERVENTIONS Evaluation, Self Snf Management (52519) Timed Code Treatment (minutes): 24 Skilled Treatment [...] 3 Times Per (more content not included)... [facility] THERAPY NT HNO ID: [id number] Author: TENA LEY CCC-TABLEMAN Service: Speech/Swallow Author Type: Speech Language Pathologist Type: Therapy (PT/OT/Speech/Resp) Filed: 12/09/2024 11:02 Note Text: Summary: Speech - missed [facility] THERAP[facility] SPEECH THERAPY MISSED VISIT NOTE SERVICE DATE: 12/09/2024 SERVICE TIME: 10:10 AM Attempted patient therapy visit, but was unable for the following reason(s): - attempted Speech therapy - Pt unavailable; another service at bedside -- Will re-attempt as schedule AND Patient availability permits SIGNATURE: CARLOS Mane PATIENT NAME: Tena Cannon DATE: December 09, 2024 TIME: 11:02 AM [facility] US DVT LOWER BILon US DVT LOWER [...] of the left and right lower extremities. Supervisor Glycerin: RYAN Transcribe Date/Time: Dec 09 2024 4:55P Dictated by : JEANNETTE ELDER MD This examination was interpreted and the report reviewed and electronically signed by: JEANNETTE ELDER MD on Dec 09 2024 4:55PM EST [id number] [facility] XR HIP 3V PELV+ AP/LAT RTon 12-09-2024 [...] images should satisfy evaluation of the hips. Supervisor Glycerin: RYAN Transcribe Date/Time: Dec 09 2024 3:26P Dictated by : QUINCY SALAS DO This examination was interpreted and the report reviewed and electronically signed by: QUINCY SALAS DO on Dec 09 2024 3:31PM EST [id number] [facility] XR PELVIS 2V INLET/OUTLETon 12-09-2024 XR PELVIS [...] images should satisfy evaluation of the hips. Supervisor Glycerin: RYAN Transcribe Date/Time: Dec 09 2024 3:26P Dictated by : QUINCY SALAS DO This examination was interpreted and the report reviewed and electronically signed by: QUINCY SALAS DO on Dec 09 2024 3:31PM EST [id number] [facility] HEALTH 12-08-2024 ALLIED HEALTH HNO ID: [id number] Author: MENDOZA GILLETTE Tech Service: Radiology Author Type: Braider Setter Type: Allied Health Filed: 12/08/2024 17:01 Note [...] PATIENT PRESENTS WITH AN IMPLANTABLE OR ATTACHED NET C DEVELOPER: No RADIOLOGY DEPARTMENT: General X-ray: Exam(s) Completed: Chest X-Ray PERIPHERAL IV DATA: Not applicable SIGNED BY: David Boyd December 08, 2024 5:01 PM [facility] ALLIED HEALTH HNO ID: [id number] Author: NEDA AKINS TECHNOLOGIST Service: Radiology Author [...] PATIENT PRESENTS WITH AN IMPLANTABLE OR ATTACHED NET C DEVELOPER: No RADIOLOGY DEPARTMENT: CT; Exam(s) Completed: Abdomen/Pelvis , Brain , and Spine PERIPHERAL IV DATA: Not applicable SIGNED BY: RAINA SierraOLOGIST December 08, 2024 4:47 PM [facility] Bacteria Ur Culton Bacteria identified Cx Nom (U) ORGANISM ID: 1 10,000 -<50,000 CFU/ml Normal urogenital lisa Normal [facility] Comment on above: Performed By: #### 6 30-4 #### [facility] CLIA [id number] [address] [place] [address] [place] CBC W Auto Differential pane l (Bld)on 12-08-2024 Basophils (Bld) [#/Vol] 0.05 10*3/uL Normal <0.11 [facility] Comment on above: Order Comment: Speci men Type: BLOOD SPECIMENOrdering Facility: [facility] Address: [address] [place] [address] Performed By: #### 5 7021-8 ####SADDLE BROOK LABORATORYCLIA [id number] [place] [address] [place] Basophils/100 WBC (Bld) 0.8 % Normal [facility] Comment on above: Order Comment: Speci men Type: BLOOD SPECIMENOrdering Facility: [facility] Address: [address] [place] [address] Performed By: #### 5 7021-8 ####KENDRICK LABORATORYCLIA [id number] [place] [address] [place] Differential cell count method Nom (Bld) Auto Normal [facility] Comment on above: Order Comment: Speci men Type: BLOOD SPECIMENOrdering Facility: [facility] Address: [address] [place] [address] Performed By: #### 5 7021-8 ####KENDRICK LABORATORYCLIA [id number] [place] [address] [place] Eosinophils (Bld) [#/Vol] 0.12 10*3/uL Normal <0.46 [facility] Comment on above: Order Comment: Speci men Type: BLOOD SPECIMENOrdering Facility: [facility] Address: [address] [place] [address] Performed By: #### 5 7021-8 ####KENDRICK LABORATORYCLIA [id number] [place] [address] [place] Eosinophils/100 WBC (Bld) 1.9 % Normal [facility] Comment on above: Order Comment: Speci men Type: BLOOD SPECIMENOrdering Facility: [facility] Address: [address] [place] [address] Performed By: #### 5 7021-8 ####KENDRICK LABORATORYCLIA [id number] [address] [place] Erythrocyte distribution width (RBC) [Ratio] 12.6 % Normal 11.5-15.0 [facility] Comment on above: Order Comment: Speci men Type: BLOOD SPECIMENOrdering Facility: [facility] Address: [address] [place] [address] Performed By: #### 5 7021-8 ####KENDRICK LABORATORYCLIA [id number] [address] [place] Hematocrit (Bld) [Volume fraction] 39.9 % Normal 36.0-46.0 [facility] Comment on above: Order Comment: Speci men Type: BLOOD SPECIMENOrdering Facility: [facility] Address: [address] [place] [address] Performed By: #### 5 7021-8 ####KENDRICK LABORATORYCLIA [id number] [place] [address] [place] Hemoglobin (Bld) [Mass/Vol] 13.6 g/dL Normal 11.5-15.5 [facility] Comment on above: Order Comment: Speci men Type: BLOOD SPECIMENOrdering Facility: [facility] Address: [address] [place] [address] Performed By: #### 5 7021-8 ####KENDRICK LABORATORYCLIA [id number] [place] [address] [place] Immature granulocytes (Bld) [#/Vol] 10*3/uL Normal <0.10 [facility] Comment on above: Order Comment: Speci men Type: BLOOD SPECIMENOrdering Facility: [facility] Address: [address] [place] [address] Performed By: #### 5 7021-8 ####KENDRICK LABORATORYCLIA [id number] [place] [address] [place] Immature granulocytes/100 WBC (Bld) 0.3 % Normal [facility] Comment on above: Order Comment: Speci men Type: BLOOD SPECIMENOrdering Facility: [facility] Address: [address] [place] [address] Performed By: #### 5 7021-8 ####KENDRICK LABORATORYCLIA [id number] [place] [address] [place] Lymphocytes (Bld) [#/Vol] 1.21 10*3/uL Normal 1.00-4.00 [facility] Comment on above: Order Comment: Speci men Type: BLOOD SPECIMENOrdering Facility: [facility] Address: [address] [place] [address] Performed By: #### 5 7021-8 ####KENDRICK LABORATORYCLIA [id number] [place] [address] [place] Lymphocytes/100 WBC (Bld) 18.7 % Normal [facility] Comment on above: Order Comment: Speci men Type: BLOOD SPECIMENOrdering Facility: [facility] Address: [address] [place] [address] Performed By: #### 5 7021-8 ####KENDRICK LABORATORYCLIA [id number] [address] MCH (RBC) [Entitic mass] 31.6 pg Normal 26.0-34.0 [facility] Comment on above: Order Comment: Speci men Type: BLOOD SPECIMENOrdering Facility: [facility] Address: [address] [place] [address] Performed By: #### 5 7021-8 ####KENDRICK LABORATORYCLIA [id number] [address] MCHC (RBC) [Mass/Vol] 34.1 g/dL Normal 30.5-36.0 [facility] Comment on above: Order Comment: Speci men Type: BLOOD SPECIMENOrdering Facility: [facility] Address: [address] [place] [address] Performed By: #### 5 7021-8 ####KENDRICK LABORATORYCLIA [id number] [address] MCV (RBC) [Entitic vol] 92.8 fL Normal 80.0-100.0 [facility] Comment on above: Order Comment: Speci men Type: BLOOD SPECIMENOrdering Facility: [facility] Address: [address] [place] [address] Performed By: #### 5 7021-8 ####KENDRICK LABORATORYCLIA [id number] [address] Monocytes (Bld) [#/Vol] 0.74 10*3/uL Normal <0.87 [facility] Comment on above: Order Comment: Speci men Type: BLOOD SPECIMENOrdering Facility: [facility] Address: [address] [place] [address] Performed By: #### 5 7021-8 ####KENDRICK LABORATORYCLIA [id number] [address] Monocytes/100 WBC (Bld) 11.4 % Normal [facility] Comment on above: Order Comment: Speci men Type: BLOOD SPECIMENOrdering Facility: [facility] Address: [address] [place] [address] Performed By: #### 5 7021-8 ####KENDRICK LABORATORYCLIA [id number] [place] [address] [place] Neutrophils (Bld) [#/Vol] 4.34 10*3/uL Normal 1.45-7.50 [facility] Comment on above: Order Comment: Speci men Type: BLOOD SPECIMENOrdering Facility: [facility] Address: [address] [place] [address] Performed By: #### 5 7021-8 ####KENDRICK LABORATORYCLIA [id number] [address] [place] Neutrophils/100 WBC (Bld) 66.9 % Normal [facility] Comment on above: Order Comment: Speci men Type: BLOOD SPECIMENOrdering Facility: [facility] Address: [address] [place] [address] Performed By: #### 5 7021-8 ####KENDRICK LABORATORYCLIA [id number] [place] [address] [place] Nucleated RBC (Bld) [#/Vol] 10*3/uL Normal <0.01 [facility] Comment on above: Order Comment: Speci men Type: BLOOD SPECIMENOrdering Facility: [facility] Address: [address] [place] [address] Performed By: #### 5 7021-8 ####KENDRICK LABORATORYCLIA [id number] [address] [place] Nucleated RBC/100 WBC (Bld) [Ratio] 0.0 /100 WBC Normal [facility] Comment on above: Order Comment: Speci men Type: BLOOD SPECIMENOrdering Facility: [facility] Address: [address] [place] [address] Performed By: #### 5 7021-8 ####KENDRICK LABORATORYCLIA [id number] [place] [address] [place] Platelet mean volume (Bld) [Entitic vol] 10.9 fL Normal 9.0-12.7 [facility] Comment on above: Order Comment: Speci men Type: BLOOD SPECIMENOrdering Facility: [facility] Address: [address] [place] [address] Performed By: #### 5 7021-8 ####KENDRICK LABORATORYCLIA [id number] [address] Platelets (Bld) [#/Vol] 204 10*3/uL Normal 150-400 [facility] Comment on above: Order Comment: Speci men Type: BLOOD SPECIMENOrdering Facility: [facility] Address: [address] [place] [address] Performed By: #### 5 7021-8 ####KENDRICK LABORATORYCLIA [id number] [address] RBC (Bld) [#/Vol] 4.30 10*6/uL Normal 3.90-5.20 [facility] Comment on above: Order Comment: Speci men Type: BLOOD SPECIMENOrdering Facility: [facility] Address: [address] [place] [address] Performed By: #### 5 7021-8 ####KENRDICK LABORATORYCLIA [id number] [address] WBC (Bld) [#/Vol] 6.48 10*3/uL Normal 3.70-11.00 [facility] Comment on above: Order Comment: Speci men Type: BLOOD SPECIMENOrdering Facility: [facility] Address: [address] [place] [address] [place] [address] Performed By: #### 5 7021-8 ####KENDRICK LABORATORYCLIA [id number] [address] CNPNon 12-08-2024 CNPN Telephone ([facility]) TENA CANNON ([id number]) 1940 F Date Time Provider Department 12/08/24 SAHRA GUYDNA During your visit today, we recorded the following information about you: Melissa BanegasfarhadNorma 12/08/2024 10:23 AM Signed Patient daughterJuan is calling Sahra Guy MD today to request a prior authorization for the lidocaine 5% per pharmacy [facility] in [place] on [address] Please call daughter with updates on this PA Patient has been identified by name and birthdate. Person calling: daughter: Juan Call patient daughter Juan [phone] (home) [phone] (cell) Was an appointment scheduled: No Closing statement: Prior Auth needed for the Lidocaine [facility] Adonay Marquez LPN 12/08/2024 1:33 PM Signed PA submitted. Response pending. [place] Tete Boucher 12/09/2024 2:31 PM Signed don Martinez called and stated lidocaine patches are denied and the insurance has faxed an appeal form to our office. She is requesting this is completed. Please call Shwrüm [phone] at 8-5pm central time. 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 [place]vin states pt will be transitioning to [facility] for inpatient physical therapy. Juan requested pt's 3pm appt for neurology 12/14/24 be canceled. Appt canceled. Allergies As of Date: 12/08/2024 Noted Allergy Reaction KEFLEX (CEPHALEXIN) 05/12/2005 6 - Diarrhea 8 - GI Upset Comments: "extreme diarrhea" VIOXX (ROFECOXIB) 05/12/2005 5 - Intolerance Comments: "Makes capillaryblood vessels break" NOVOCAIN (PROCAINE HCL) 01/13/2024 5 - Intolerance Comments: headaches OMEGA-3 FISH OIL (OMEGA-3 FATTY A*05/05/2007 5 - Intolerance Comments: bleeding in eye ADVIL (IBUPROFEN) 05/28/2005 5 - Intolerance Comments: "Makes capillary blood vessels bread" ASA (SALICYLATES) 05/28/2005 5 - Intolerance Comments: "Makes capillary blood vessels break" Date Reviewed: 12/08/2024 Reviewed by: Huong Sanz RN - Fully Assessed Reason for Visit: Insurance Authorization [[id number]] Prescriptions as of 12/14/2024 - propylene glycol [...] TEARS OPHTHALMIC) Use in eyes. - rutin/hesp/bioflav/C/h hbsyh270 (BIOFLEX ORAL) Take 1 capsule by mouth twice daily. - CPAP BipaP @ 14/9 cm of water with humidific (more content not included)... Normal [facility] CT ABD/PEL WO IVCONon 2024 CT ABD/PEL WO IVCON * * *Final Report* * * DATE OF EXAM: Dec 08 2024 4:57PM [facility] [place] ABD/PEL WO IVCON / [...] in the lumbar spine. Advanced degenerative changes. Supervisor Glycerin: [facility] HOSPITALChristian Transcribe Date/Time: Dec 08 2024 5:59P Dictated by : SIERRA SILVER MD This examination was interpreted and the report reviewed and electronically signed by: SIERRA SILVER MD on Dec 08 2024 6:18PM EST [id number] [facility] CT BRAIN WO IVCONon 12-09-19 CT BRAIN WO IVCON * * *Final Report* * * DATE OF EXAM: Dec 08 2024 4:56PM [facility] [place] [place] [place] BRAIN WO IVCON / PROCEDURE REASON: Head trauma, moderate-severe * * * * Physician Interpretation * * * * EXAMINATION: CT BRAIN WO IVCON, CT CERVICAL SPINE WO IVCON CLINICAL HISTORY: Head trauma, moderate-severe (accession [id number]), Spine fracture, cervical, traumatic (accession [id number]) TECHNIQUE: Serial axial images without IV contrast [...] with counting from the craniocervical junction. : Supervisor Glycerin: PSCB Transcribe Date/Time: Dec 08 2024 5:11P Dictated by : FAUSTINO KINSEY MD This examination was interpreted and the report reviewed and electronically signed by: FAUSTINO KINSEY MD on Dec 08 2024 5:24PM EST [id number] [facility] CT CERVICAL SPINE WO IVCONon 12-08-2024 CT CERVICAL SPINE WO IVCON * * *Final Report* * * DATE OF EXAM: Dec 08 2024 4:56PM [facility] [place] - CT CERVICAL SPINE WO IVCON / PROCEDURE REASON: Spine fracture, cervical, traumatic * * * * Physician Interpretation * * * * EXAMINATION: CT BRAIN WO IVCON, CT CERVICAL SPINE WO IVCON CLINICAL HISTORY: Head trauma, moderate-severe (accession [id number]), Spine fracture, cervical, traumatic (accession [id number]) TECHNIQUE: Serial axial images without IV contrast [...] with counting from the craniocervical junction. : Supervisor Glycerin: RYAN Transcribe Date/Time: Dec 08 2024 5:11P Dictated by : FAUSTINO KINSEY MD This examination was interpreted and the report reviewed and electronically signed by: FAUSTINO KINSEY MD on Dec 08 2024 5:24PM EST [id number] Normal [facility] CT LUMBAR SPINE W RECON DATA -NBon 12-08-2024 CT LUMBAR SPINE W RECON DATA -NB * * *Final Report* * * DATE OF EXAM: Dec 08 2024 4:57PM [facility] [place] CT LUMBAR SPINE W RECON [...] in the lumbar spine. Advanced degenerative changes. Supervisor Glycerin: PSCChristian Transcribe Date/Time: Dec 08 2024 5:59P Dictated by : SIERRA SILVER MD This examination was interpreted and the report reviewed and electronically signed by: SIERRA SILVER MD on Dec 08 2024 6:18PM EST [id number] Normal [facility] Comprehensive metabolic 2000 panelon 12-08-2024 Albumin [Mass/Vol] 4.1 g/dL Normal 3.9-4.9 [facility] Comment on above: Order Comment: Speci men Type: BLOOD SPECIMENOrdering Facility: [facility] Address: [address] [place] [address] Performed By: #### 2 4323-8, 0-3 ####KENDRICK LABORATORYCLIA [id number] [address] STATES OF [facility] ALP [Catalytic activity/Vol] 68 U/L Normal 34-123 [facility] Comment on above: Order Comment: Speci men Type: BLOOD SPECIMENOrdering Facility: [facility] Address: [address] [place] [address] Performed By: #### 2 4323-8, 3040-3 ####KENDRICK LABORATORYCLIA [id number] [address] STATES [facility] ALT [Catalytic activity/Vol] 15 U/L Normal 7-38 [facility] Comment on above: Order Comment: Speci men Type: BLOOD SPECIMENOrdering Facility: [facility] Address: [address] [place] [address] Performed By: #### 2 4323-8, 3040-3 ####KENDRICK LABORATORYCLIA [id number] [place] [address] [place] [facility] Anion gap [Moles/Vol] 12 mmol/L Normal 8-15 [facility] Comment on above: Order Comment: Speci men Type: BLOOD SPECIMENOrdering Facility: [facility] Address: [address] [place] [address] Performed By: #### 2 4323-8, 3040-3 ####KENDRICK LABORATORYCLIA [id number] [address] [place] AST [Catalytic activity/Vol] 18 U/L Normal 13-35 [facility] Comment on above: Order Comment: Speci men Type: BLOOD SPECIMENOrdering Facility: [facility] Address: [address] [id number] Performed By: #### 2 4323-8, 0-3 ####KENDRICK LABORATORYCLIA [id number] [place] [address] [place] Bilirubin [Mass/Vol] 0.4 mg/dL Normal 0.2-1.3 [facility] Comment on above: Order Comment: Speci men Type: BLOOD SPECIMENOrdering Facility: [facility] Address: [address] [place] [address] Performed By: #### 2 4323-8, 3039-3 ####KENDRICK LABORATORYCLIA [id number] [address] STATES [place] Calcium [Mass/Vol] 10.1 mg/dL Normal 8.5-10.2 [facility] Comment on above: Order Comment: Speci men Type: BLOOD SPECIMENOrdering Facility: [facility] Address: [address] [place] [address] Performed By: #### 2 4323-8, 3039-3 ####KENDRICK LABORATORYCLIA [id number] [place] [address] [place] Chloride [Moles/Vol] 99 mmol/L Normal 98-107 [facility] Comment on above: Order Comment: Speci men Type: BLOOD SPECIMENOrdering Facility: [facility] Address: [address] [place] [address] Performed By: #### 2 4323-8, 3040-3 ####KENDRICK LABORATORYCLIA [id number] [place] [address] [place] CO2 [Moles/Vol] 27 mmol/L Normal 22-30 [facility] Comment on above: Order Comment: Speci men Type: BLOOD SPECIMENOrdering Facility: [facility] Address: [address] [place] [address] Performed By: #### 2 4323-8, 3040-3 ####KENDRICK LABORATORYCLIA [id number] [place] [id number] [place] Creatinine [Mass/Vol] 0.39 mg/dL Low 0.58-0.96 [facility] Comment on above: Order Comment: Helena bronson Type: BLOOD SPECIMENOrdering Facility: [facility] Address: [address] [place] [address] Performed By: #### 2 4323-8, 0-3 ####KENDRICK LABORATORYCLIA [id number] [place] [id number] [facility] [place] Creatinine and Glomerular filtration rate.predicted panel (S/P/Bld) 97 mL/min/1.73m??? Normal >=60 [facility] Comment on above: Order Comment: Helena bronson Type: BLOOD SPECIMENOrdering Facility: [facility] Address: [address] [place] [address] Result Comment: Sara mated Glomerular Filtration Rate [...] actual GFR. Performed By: #### 2 4323-8, 3039-3 ####KENDRICK LABORATORYCLIA [id number] [place] [id number] [place] Glucose [Mass/Vol] 84 mg/dL Normal 74-99 [facility] Comment on above: Order Comment: Helena bronson Type: BLOOD SPECIMENOrdering Facility: [facility] Address: [address] [place] [address] Result Comment: The [place] [employer] (ADA) provides guidance for cutoff [...] Standards of Medical Care in Diabetes 2016, [place] [employer]. Diabetes Care. 2016.39(Suppl 1). Performed By: #### 2 4323-8, 0-3 ####KENDRICK LABORATORYCLIA [id number] [address] STATES OF [facility] Potassium [Moles/Vol] 3.8 mmol/L Normal 3.7-5.1 [facility] Comment on above: Order Comment: Helena men Type: BLOOD SPECIMENOrdering Facility: [facility] Address: [address] [place] [address] Performed By: #### 2 4323-8, 3039-3 ####KENDRICK LABORATORYCLIA [id number] [address] STATES [facility] Protein [Mass/Vol] 7.3 g/dL Normal 6.3-8.0 [facility] Comment on above: Order Comment: Helena bronson Type: BLOOD SPECIMENOrdering Facility: [facility] Address: [address] [place] [address] Performed By: #### 2 4323-8, 0-3 ####KENDRICK LABORATORYCLIA [id number] [address] Sodium [Moles/Vol] 138 mmol/L Normal 136-144 [facility] Comment on above: Order Comment: Noreeni aiyana Type: BLOOD SPECIMENOrdering Facility: [facility] Address: [address] [place] [address] Performed By: #### 2 4323-8, 0-3 ####KENDRICK LABORATORYCLIA [id number] [address] STATES [facility] Urea nitrogen [Mass/Vol] 18 mg/dL Normal 7-21 [facility] Comment on above: Order Comment: Noreeni men Type: BLOOD SPECIMENOrdering Facility: [facility] Address: [address] [place] [address] Performed By: #### 2 4323-8, 0-3 ####KENDRICK LABORATORYCLIA [id number] [address] STATES OF [facility] ED NOTEon 12-08-2024 ED NOTE HNO ID: [id number] Author: KRISTINE UMANZOR RN Service: Nursing Author Type: Registered Nurse Type: ED Notes Filed: 12/08/2024 20:45 Note Text: Pt is wearing own nightgown [facility] ED NOTE HNO ID: [id number] Author: RADU DISLA RN Service: ? Author Type: Registered Nurse Type: ED Notes Filed: 12/08/2024 20:02 Note Text: [facility] ED NOTE HNO ID: [id number] Author: RADU DISLA RN Service: ? Author Type: Registered Nurse Type: ED Notes Filed: 12/08/2024 20:02 Note Text: Pt back from ct co way increased back pain after laying flat on ct table. Sts 12/10 and now bp up to 225/90s [facility] ED NOTE HNO ID: [id number] Author: RADU DISLA RN Service: ? Author Type: Registered Nurse Type: ED Notes Filed: 12/08/2024 17:05 Note Text: [facility] ED NOTE HNO ID: [id number] Author: HARINDER HEADLEY RN Service: ? Author Type: Registered Nurse Type: ED Notes Filed: 12/08/2024 15:58 Note Text: Bed: ED-10 Expected date: 12/08/24 Expected time: 3:35 PM Means of arrival: [facility] Comments: [facility] ED PROV NOTEon 12-08-2024 ED PROV NOTE HNO ID: [id number] Author: EDGARD PEREZ MD Service: Emergency Medicine Author Type: [...] diarrhea Vioxx [Rofecoxib] Intolerance Makes capillaryblood vessels break" Novocain [Procaine * Intolerance headaches [place]-3 Fish Oil [O* Intolerance bleeding in eye Advil [Ibuprofen] Intolerance Makes capillary blood vessels bread" Asa [Salicylates] Intolerance Makes capillary blood vessels break" Review of Systems Constitutional: Positive for appetite [...] (165 lb 5.5 oz) 1.422 m (4' 8") Physical Exam Vitals and nursing note reviewed. Constitutional: General: She is not in acute distress. Appearance: She is well-developed. HENT: Head: Normocephalic and atraumatic. Eyes: Pupils: Pupils are equal, round, and reactive to l (more content not included)... Normal [facility] HISTORY PHYSICALon HISTORY PHYSICAL HNO ID: [id number] Author: SUKI GALVAN MD Service: Hospital Medicine Author Type: Physician Type: H&P Filed: 12/08/2024 21:49 Note Text: DEPARTMENT OF HOSPITAL MEDICINE HISTORY AND PHYSICAL EXAM SERVICE DATE: 12/08/2024 SERVICE TIME: 9:48 PM Primary Care Physician: Sahra Guy MD NIGHT AND WEEKEND COVERAGE: [facility] COVERAGE: Days: [phone], please page attending physician. Nights: [phone], please page [facility] Night coverage pager [phone]. Subjective CHIEF COMPLAINT: fall HPI: 84-year-old female [...] INTRAVENOUS PRN (more content not included)... Normal [facility] Lipase SerPl-cCncon 12-09-19 25 Lipase [Catalytic activity/Vol] 20 U/L Normal 16-61 [facility] Comment on above: Order Comment: Speci men Type: BLOOD SPECIMENOrdering Facility: [facility] Address: [address] [place] [address] Performed By: #### 2 4323-8, 3040-3 ####SADDLE BROOK LABORATORYCLIA [id number] [address] PT panel Coag (PPP)on 2024 INR Coag (PPP) [Relative time] 1.1 {INR} Normal 0.9-1.3 [facility] Comment on above: Order Comment: Speci men Type: BLOOD SPECIMENOrdering Facility: [facility] Address: [address] [place] [address] Result Comment: Yvonne min K Antagonist (VKA) Therapeutic Range: INR 2 to 3 (Target INR of 2.5) Note: For patients treated with VKA drugs, such as warfarin, the [place] [employer] [employer] 2012 Guideline recommends [...] to 3.5 (target INR of 3). Nishant OLIVAS, et al. Chest 2012, 141:7S-47S Juan Jose RA, et al. [facility] 2017, 70: 252-289 Performed By: #### 1 4979-9, 96860-6 ####S[facility] BROOK LABORATORYCLIA [id number] [place] [id number] [place] PT Coag (PPP) [Time] 11.4 s Normal 9.7-13.0 [facility] Comment on above: Order Comment: Speci men Type: BLOOD SPECIMENOrdering Facility: [facility] Address: [address] [place] [address] Performed By: #### 1 4979-9, 22331-3 ####SADDLE BROOK LABORATORYCLIA [id number] [place] [id number] [facility] OF [place] URINALYSIS, REFLEX MICROSCOP ICon 12-08-2024 Bilirubin Ql (U) Negative Normal Negative [facility] Comment on above: Order Comment: Speci men Type: URINE SPECIMENOrdering Facility: [facility] Address: [address] [place] [address] Performed By: #### L [id number] ####KENDRICK LABORATORYCLIA [id number] [address] Clarity (Unsp spec) Clear Normal Clear [facility] Comment on above: Order Comment: Speci men Type: URINE SPECIMENOrdering Facility: [facility] Address: [address] [place] [address] Performed By: #### L [id number] ####KENDRICK LABORATORYCLIA [id number] [address] Color (U) Yellow Normal Yellow [facility] Comment on above: Order Comment: Speci men Type: URINE SPECIMENOrdering Facility: [facility] Address: [address] [place] [address] Performed By: #### L [id number] ####KENDRICK LABORATORYCLIA [id number] [address] [place] Glucose Test strip (U) [Mass/Vol] Negative Normal Negative [facility] Comment on above: Order Comment: Speci men Type: URINE SPECIMENOrdering Facility: [facility] Address: [address] [place] [address] Performed By: #### L [id number] ####KENDRICK LABORATORYCLIA [id number] [place] [address] [place] Hemoglobin Ql (U) Negative Normal Negative [facility] Comment on above: Order Comment: Speci men Type: URINE SPECIMENOrdering Facility: [facility] Address: [address] [place] [address] Performed By: #### L [id number] ####KENDRICK LABORATORYCLIA [id number] [address] OF [place] Ketones Ql (U) 2+ Abnormal Negative [facility] Comment on above: Order Comment: Speci men Type: URINE SPECIMENOrdering Facility: [facility] Address: [address] [place] [address] Performed By: #### L [id number] ####KENDRICK LABORATORYCLIA [id number] [address] [place] Leukocyte esterase Test strip Ql (U) Negative Normal Negative [facility] Comment on above: Order Comment: Speci men Type: URINE SPECIMENOrdering Facility: [facility] Address: [address] [place] [address] Performed By: #### L [id number] ####KENDRICK LABORATORYCLIA [id number] [place] [address] [place] Nitrite Ql (U) Negative Normal Negative [facility] Comment on above: Order Comment: Speci men Type: URINE SPECIMENOrdering Facility: [facility] Address: [address] [place] [address] Performed By: #### L [id number] ####KENDRICK LABORATORYCLIA [id number] [place] [address] [place] pH (U) 6.0 [pH] Normal 5.0-8.0 [facility] Comment on above: Order Comment: Speci men Type: URINE SPECIMENOrdering Facility: [facility] Address: [address] [place] [address] Performed By: #### L [id number] ####KENDRICK LABORATORYCLIA [id number] [place] [address] [place] Protein (U) [Mass/Vol] Negative Normal Negative [facility] Comment on above: Order Comment: Speci men Type: URINE SPECIMENOrdering Facility: [facility] Address: [address] [place] [address] Performed By: #### L [id number] ####KENDRICK LABORATORYCLIA [id number] [place] [address] [place] Specific gravity (U) [Rel density] 1.020 Normal 1.005-1.030 [facility] Comment on above: Order Comment: Speci men Type: URINE SPECIMENOrdering Facility: [facility] Address: [address] [place] [address] Performed By: #### L [id number] ####KENDRICK LABORATORYCLIA [id number] [place] [id number] [facility] Urobilinogen Ql (U) 0.2 EU/dL Normal 0.2-1.0 EU/dL [facility] Comment on above: Order Comment: Speci men Type: URINE SPECIMENOrdering Facility: [facility] Address: [address] [place], [place] [address] [address] Performed By: #### L [id number] ####SADDLE BROOK LABORATORYCLIA [id number] [place] [address] [place] XR CHEST 1V FRONTAL PORTon 0 12-08-2024 [...] the findings on the concurrent abdominal CT. Supervisor Glycerin: PSCB Transcribe Date/Time: Dec 08 2024 5:22P Dictated by : TAMERA DRAKE MD This examination was interpreted and the report reviewed and electronically signed by: TAMERA DRAKE MD on Dec 08 2024 5:25PM EST [id number] Normal [facility] aPTT PPPon 12-08-2024 aPTT Coag (PPP) [Time] 27.9 s Normal 23.0-32.4 [facility] Comment on above: Order Comment: Speci men Type: BLOOD SPECIMENOrdering Facility: [facility] Address: [address] [place] [address] Performed By: #### 1 4979-9, 41392-0 ####AROLDO LABORATORYCLIA [id number] [address] CNPNon 12-07-2024 CNPN Telephone ([employer]) TENA CANNON ([id number]) 1940 F Date Time Provider Department 12/07/24 [facility] During your visit today, we recorded the following information about you: Uriel Stover 12/07/2024 3:21 PM Signed Patient's daughter is calling that the Rx Lidocaine is not covered for the 4% but the 5% is. She is asking if this can be re-ordered as such and sent to [facility] while she is in the [facility] today. Please call Juan if the Rx is being changed/sent. [phone] Sahra Guy MD 12/07/2024 4:52 PM Signed The following approved medication requests have been transmitted electronically. Requested Prescriptions Signed Prescriptions Disp Refills lidocaine (LIDODERM) 5 % 30 patch 2 Sig: Apply 1 patch as directed once daily. REMOVE AFTER 12 HOURS. Authorizing Provider: SAHRA GUY Pharmacy Information Pharmacy Address Telephone [facility]/pharmacy #[id number] [place], [place] [address] MD Eladio Mitchell Cheralyn, LPN 12/07/2024 5:17 PM Signed Called and spoke with pt and daughter Juan. Stated they will flower picker medication. Pt would like to know how long it will take for muscle to recover. Please advise. Adonay Marquez LPN 12/08/2024 1:34 PM Signed Please see triage encounter 12/08/24 Allergies As of Date: 12/07/2024 Noted Allergy Reaction KEFLEX (CEPHALEXIN) 05/12/2005 6 - Diarrhea 8 - GI Upset Comments: "extreme diarrhea" VIOXX (ROFECOXIB) 05/12/2005 5 - Intolerance Comments: "Makes capillaryblood vessels break" NOVOCAIN (PROCAINE HCL) 01/13/2024 5 - Intolerance Comments: headaches OMEGA-3 FISH OIL (OMEGA-3 FATTY A*05/05/2007 5 - Intolerance Comments: bleeding in eye ADVIL (IBUPROFEN) 05/28/2005 5 - Intolerance Comments: "Makes capillary blood vessels bread" ASA (SALICYLATES) 05/28/2005 5 - Intolerance Comments: "Makes capillary blood vessels break" Date Reviewed: 09/16/2024 Reviewed by: Malika Sheikh [...] TEARS OPHTHALMIC) Use in eyes. - rutin/hesp/bioflav/C/h [id number] (BIOFLEX ORAL) Take 1 capsule by mouth [...] VENOUS INSUFFICIENCY (more content not included)... Normal [facility] 10-24-2024 ANTONYN Telephone (FPWADS) TENA CANNON ([id number]) 1940 F Date Time Provider Department 10/24/24 SAHRA GUY During your visit today, we recorded the following information about you: Malika Sheikh LPN 10/24/2024 3:34 PM Signed Received 10/21/2024 from [facility]. Placed in provider's inbox for review. Route to [place] for faxing Allergies As of Date: 10/24/2024 Noted Allergy Reaction KEFLEX (CEPHALEXIN) 05/12/2005 6 - Diarrhea 8 - GI Upset Comments: "extreme diarrhea" VIOXX (ROFECOXIB) 05/12/2005 5 - Intolerance Comments: "Makes capillaryblood vessels break" NOVOCAIN (PROCAINE HCL) 01/13/2024 5 - Intolerance Comments: headaches OMEGA-3 FISH OIL (OMEGA-3 FATTY A*05/05/2007 5 - Intolerance Comments: bleeding in eye ADVIL (IBUPROFEN) 05/28/2005 5 - Intolerance Comments: "Makes capillary blood vessels bread" ASA (SALICYLATES) 05/28/2005 5 - Intolerance Comments: "Makes capillary blood vessels break" Date Reviewed: 09/16/2024 Reviewed by: Malika Sheikh LPN - Fully Assessed Reason for Visit: Received Outside Medical Records [[id number]] Cmt: [facility] OT Evaluation performed no further treatment. 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] 11/27/2008 Poliomyelitis osteopathy of multiple sites ([facility]*11/27/2008 Sleep apnea [G47.30] 04/15/2010 02/01/2019 Vitamin D Deficiency [E55.9] 04/15/2010 Osteopenia [M85.80] 04/15/2010 Incontinence [R32] 07/19/2012 Fracture of L1 vertebra ([facility]) [S32.019A] 06/02/2014 02/01/2019 Lumbar radiculopathy [M54.16] 06/03/2014 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 Normal [facility] 10-19-2024 ANTONYN Telephone (WALKWA) TENA CANNON ([id number]) 1940 F Date Time Provider Department 10/19/24 SAHRA GUY During your visit today, we recorded the following information about you: Adonay Marquez LPN 10/19/2024 5:27 PM Signed Received orders from [facility]. Placed in provider's inbox for review. Route to [place] fax Allergies As of Date: 10/19/2024 Noted Allergy Reaction KEFLEX (CEPHALEXIN) 05/12/2005 6 - Diarrhea 8 - GI Upset Comments: "extreme diarrhea" VIOXX (ROFECOXIB) 05/12/2005 5 - Intolerance Comments: "Makes capillaryblood vessels break" NOVOCAIN (PROCAINE HCL) 01/13/2024 5 - Intolerance Comments: headaches OMEGA-3 FISH OIL (OMEGA-3 FATTY A*05/05/2007 5 - Intolerance Comments: bleeding in eye ADVIL (IBUPROFEN) 05/28/2005 5 - Intolerance Comments: "Makes capillary blood vessels bread" ASA (SALICYLATES) 05/28/2005 5 - Intolerance Comments: "Makes capillary blood vessels break" Date Reviewed: 09/16/2024 Reviewed by: Malika Sheikh LPN - Fully Assessed Reason for Visit: Orders [681] Cmt: [facility] Prescriptions as of 10/19/2024 - metFORMIN [...] TEARS OPHTHALMIC) Use in eyes. 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] 11/27/2008 Poliomyelitis osteopathy of multiple sites ([facility]CC*11/27/2008 Sleep apnea [G47.30] 04/15/2010 02/01/2019 Vitamin D Deficiency [E55.9] 04/15/2010 Osteopenia [M85.80] 04/15/2010 Incontinence [R32] 07/19/2012 Fracture of L1 vertebra ([facility]) [S32.019A] 06/02/2014 02/01/2019 Lumbar radiculopathy [M54.16] 06/03/2014 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 Obstructive sleep apnea on CPAP [G47.33] 07/14/2017 Rosacea [L71.9] 10/13/2017 Obesity, Class III, BMI 40-49.9 (morbid obesity*12/02/2017 Generalized weakness [R53.1] 07/29/2018 Shingles rash [B02.9] 07/29/2018 02/01/2019 Herpes zoster lesion [B02.8] 07/29/2018 02/01/2019 Epigastric pain [R10.13] 08/25/2018 11/24/2018 Encounter Status:Closed by ADONAY MARQUEZ on 10/19/24 [facility] 10-12-2024 ANTONYN Telephone (FPWADS) TENA CANNON ([id number]) 1940 F Date Time Provider Department 10/12/24 SAHRA GUY During your visit today, we recorded the following information about you: Cris Rascon 10/12/2024 2:06 PM Signed Tena is calling Sahra Guy MD today with concern regarding PT Eval Physical therapy once a week for eight weeks. Patient has been identified by name and birthdate. Duration of symptoms: N/A Person calling: [facility] Physical therapy Closing statement: Results or non-symptom based questions: Thank you for calling [facility], your call will be returned within the next business day. Cris Boucher Leonid Leal APRN.ANTONY 10/12/2024 4:17 PM Signed Yes, please give verbal order Leonid Leal APRN.Adonay Cuevas LPN 10/12/2024 4:28 PM Signed Verbal order given Allergies As of Date: 10/12/2024 Noted Allergy Reaction KEFLEX (CEPHALEXIN) 05/12/2005 6 - Diarrhea 8 - GI Upset Comments: "extreme diarrhea" VIOXX (ROFECOXIB) 05/12/2005 5 - Intolerance Comments: "Makes capillaryblood vessels break" NOVOCAIN (PROCAINE HCL) 01/13/2024 5 - Intolerance Comments: headaches OMEGA-3 FISH OIL (OMEGA-3 FATTY A*05/05/2007 5 - Intolerance Comments: bleeding in eye ADVIL (IBUPROFEN) 05/28/2005 5 - Intolerance Comments: "Makes capillary blood vessels bread" ASA (SALICYLATES) 05/28/2005 5 - Intolerance Comments: "Makes capillary blood vessels break" Date Reviewed: 09/16/2024 Reviewed by: Malika Sheikh LPN - Fully Assessed Reason for Visit: PT Elijah [747] Prescriptions as of 10/12/2024 - metFORMIN [...] TEARS OPHTHALMIC) Use in eyes. 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 Normal [facility] 10-11-2024 CNPN Telephone (JULINANAWAANA M) TENA CANNON ([id number]) 1940 F Date Time Provider Department 10/11/24 SAHRA GUY During your visit today, we recorded the following information about you: Rachel Stacy 10/11/2024 1:14 PM Chika Holt from [facility] is calling for a verbal order for patient's home health care physical therapy. Malika Sheikh LPN 10/11/2024 2:00 PM Signed Verbal order given to per Dr Guy's original order for OT. Allergies As of Date: 10/11/2024 Noted Allergy Reaction KEFLEX (CEPHALEXIN) 05/12/2005 6 - Diarrhea 8 - GI Upset Comments: "extreme diarrhea" VIOXX (ROFECOXIB) 05/12/2005 5 - Intolerance Comments: "Makes capillaryblood vessels break" NOVOCAIN (PROCAINE HCL) 01/13/2024 5 - Intolerance Comments: headaches OMEGA-3 FISH OIL (OMEGA-3 FATTY A*05/05/2007 5 - Intolerance Comments: bleeding in eye ADVIL (IBUPROFEN) 05/28/2005 5 - Intolerance Comments: "Makes capillary blood vessels bread" ASA (SALICYLATES) 05/28/2005 5 - Intolerance Comments: "Makes capillary blood vessels break" Date Reviewed: 09/16/2024 Reviewed by: Malika Sheikh [...] TEARS OPHTHALMIC) Use in eyes. - rutin/hesp/bioflav/C/h [id number] (BIOFLEX ORAL) Take 1 capsule by mouth [...] LOWER LEG [M25.569] 01/22/2007 VERTEBRAL FX NOS-CLOSED [[id number]] 03/24/2007 RESTLESS LEGS SYNDROME [G25.81] BONE AND [...] Encounter Status: (more content not included)... Normal [facility] CNPNon 10-06-2024 CNPN Telephone (JULIANNAWAANA M) TENA ([id number]) 1940 F Date Time Provider Department 10/06/24 [...] calling: self Call patient at: at home [phone] (home) [phone] (cell) Was an appointment scheduled: No Closing statement: Results or non-symptom based questions: Thank you for calling [facility], your call will be returned within the next business day. Sahra James MD 10/06/2024 10:41 AM Signed Generally speaking, physical therapy addresses lower extremity issue. Happy to initiate referral Therapy order placed. 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 Muscle strain of lower leg, unspecified laterality, initial encounter S86.253J CONSULT TO PHYSICAL THERAPY Fax to facility MD Aguilar Mitchell Lisa, LPN 10/06/2024 4:04 PM Signed Patient wanting an OT referral to educate and advise patient on ways not to fall in the bathroom. 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 Muscle strain of lower leg, unspecified laterality, initial encounter S86.914I CONSULT TO PHYSICAL THERAPY CONSULT TO [employer] EQUIPMENT TECHNICIAN 3. Falls frequently R29.6 CONSULT TO [employer] EQUIPMENT TECHNICIAN Please fax order , does she know which agency comes to her facility MD Aguilar Mitchell Lisa, LPN 10/10/2024 3:52 PM Signed Patient will call back with name of therapy that goes to her facility Ninfa Erwin, HILDA 10/11/2024 10:23 AM Signed Patient called and LVM on Nurse Triage line; [facility], phone number is [phone] Malika Sheikh LPN 10/11/2024 12:49 PM Signed Orders faxed. Allergies As of Date: 10/06/2024 Noted Allergy Reaction KEFLEX (CEPHALEXIN) 05/12/2005 6 - Diarrhea 8 - GI Upset Comments: "extreme diarrhea" VIOXX (ROFECOXIB) 05/12/2005 5 - Intolerance Comments: "Makes capillaryblood vessels break" NOVOCAIN (PROCAINE HCL) 01/13/2024 5 - Intolerance Comments: headaches OMEGA-3 FISH OIL (OMEGA-3 FATTY A*05/05/2007 5 - Intolerance Comments: bleeding in eye ADVIL (IBUPROFEN) 05/28/2005 5 - Intolerance Comments: "Makes capillary blood vessels bread" ASA (SALICYLATES) 05/28/2005 5 - Intolerance Comments: "Makes capillary blood vessels break" Date Reviewed: 09/16/2024 Reviewed by: Malika Sheikh LPN - Fully Assessed Reason for Visit: Patient Question [4577] Cmt: Slipped in shower 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 Normal [facility] [facility] Telephone (FPWAANA M) TENA CANNON ([id number]) 1940 F Date Time Provider Department 09/23/24 SAHRA GUY During your visit today, we recorded the following information about you: Malika Sheikh LPN 09/23/2024 10:07 AM Signed Received 09/23/2024 from [facility]. Placed in provider's inbox for review. Route to [place] for faxing. Allergies As of Date: 09/23/2024 Noted Allergy Reaction KEFLEX (CEPHALEXIN) 05/12/2005 6 - Diarrhea 8 - GI Upset Comments: "extreme diarrhea" VIOXX (ROFECOXIB) 05/12/2005 5 - Intolerance Comments: "Makes capillaryblood vessels break" NOVOCAIN (PROCAINE HCL) 01/13/2024 5 - Intolerance Comments: headaches OMEGA-3 FISH OIL (OMEGA-3 FATTY A*05/05/2007 5 - Intolerance Comments: bleeding in eye ADVIL (IBUPROFEN) 05/28/2005 5 - Intolerance Comments: "Makes capillary blood vessels bread" ASA (SALICYLATES) 05/28/2005 5 - Intolerance Comments: "Makes capillary blood vessels break" Date Reviewed: 09/16/2024 Reviewed by: Malika Sheikh LPN - Fully Assessed Reason for Visit: Received Outside Medical Records [[id number]] Cmt: [facility] Face to Face Encounter Documentation [...] TEARS OPHTHALMIC) Use in eyes. 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] 11/27/2008 Poliomyelitis osteopathy of multiple sites (HCC*11/27/2008 Sleep apnea [G47.30] 04/15/2010 02/01/2019 Vitamin D Deficiency [E55.9] 04/15/2010 Osteopenia [M85.80] 04/15/2010 Incontinence [R32] 07/19/2012 Fracture of L1 vertebra ([facility]) [S32.019A] 06/02/2014 02/01/2019 Lumbar radiculopathy [M54.16] 06/03/2014 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 Normal [facility] CNOVon 09-16-2024 CNOV Office Visit (FPWADS ) TENA CANNON ([id number]) 1940 F Date Time Provider Department 09/16/24 [...] services describ (more content not included)... Normal [facility] Agustina 09-09-2024 ANTONYN Telephone (FPWADS) TENA CANNON ([id number]) 1940 F Date Time Provider Department 09/09/24 SAHRA GUY During your visit today, we recorded the following information about you: Mary Boucher Cris 09/09/2024 10:47 AM Signed Tena is calling Sahra Guy MD today with concern regarding Orders Patient is there to get Lab work. If you can please FAX lab orders to them. FAX [phone]. Patient has been identified by name and birthdate. Duration of symptoms: N/A Person calling: [facility] Was an appointment scheduled: No Closing statement: Results or non-symptom based questions: Thank you for calling [facility], your call will be returned within the next business day. Cris Ballrita Boucher Uriel Stover 09/09/2024 10:57 AM Signed Patient called back regarding orders needed. Orders were faxed to : [facility] [phone] Allergies As of Date: 09/09/2024 Noted Allergy Reaction KEFLEX (CEPHALEXIN) 05/12/2005 6 - Diarrhea 8 - GI Upset Comments: "extreme diarrhea" VIOXX (ROFECOXIB) 05/12/2005 5 - Intolerance Comments: "Makes capillaryblood vessels break" NOVOCAIN (PROCAINE HCL) 01/13/2024 5 - Intolerance Comments: headaches OMEGA-3 FISH OIL (OMEGA-3 FATTY A*05/05/2007 5 - Intolerance Comments: bleeding in eye ADVIL (IBUPROFEN) 05/28/2005 5 - Intolerance Comments: "Makes capillary blood vessels bread" ASA (SALICYLATES) 05/28/2005 5 - Intolerance Comments: "Makes capillary blood vessels break" Date Reviewed: 08/23/2024 Reviewed by: Adonay Marquez [...] LOWER LEG [M25.569] 01/22/2007 VERTEBRAL FX NOS-CLOSED [[id number]] 03/24/2007 RESTLESS LEGS SYNDROME [G25.81] BONE AND CARTILAGE DIS NOS [M89.9, M94.9] PAIN IN LIMB [M79.609] 11/22/2008 Deformity of ankle and foot, 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 Normal [facility] METABOLIC PANE Kojo 09-09-2024 Albumin [Mass/Vol] 3.6 g/dL Normal 3.4-4.8 [facility] Comment on above: Performed By: #### L AB17, LAB18 #### Government Guard: JEAN PIERRE [place] ([id number]) [facility] NualightTMAN (SWRLAB) [address] [place] [address] [place] ALP [Catalytic activity/Vol] 59 U/L Normal 40-150 [facility] Comment on above: Performed By: #### L AB17, LAB18 #### Government Guard: JEAN PIERRE [place] ([id number]) [facility] RITTMAN (SWRLAB) [address] [place] [address] [place] ALT [Catalytic activity/Vol] 18 U/L Normal <30 [facility] Comment on above: Performed By: #### L AB17, LAB18 #### Government Guard: JEAN PIERRE [place] ([id number]) [facility] ELLER RITTMAN (SWRLAB) [address] [place] [address] Anion gap [Moles/Vol] 2 mmol/L Low 3-13 [facility] Comment on above: Performed By: #### L AB17, LAB18 #### Government Guard: JEAN PIERRE [place] ([id number]) [facility]ITALUr[facility] ELLER RITTMAN (SWRLAB) [address] [place] [address] AST [Catalytic activity/Vol] 21 U/L Normal <34 [facility] Comment on above: Performed By: #### Safia AB17, LAB18 #### Government Guard: JEAN PIERRE [place] ([id number]) [facility]ITALUr[facility] ELLER RITTMAN (SWRLAB) [address] [place] [address] Bilirubin [Mass/Vol] 0.5 mg/dL Normal <1.2 [facility] Comment on above: Performed By: #### L AB17, LAB18 #### Government Guard: JEAN PIERRE [place] ([id number]) [facility]ITALUr[facility] ELLER RITTMAN (SWRLAB) [address] [place] [address] Calcium [Mass/Vol] 9.8 mg/dL Normal 8.8-10.0 [facility] Comment on above: Performed By: #### Safia AB17, LAB18 #### Government Guard: JEAN PIERRE [place] ([id number]) [facility]ITAL[facility] ELLER RITTMAN (SWRLAB) [address] [place] [address] [place] Chloride [Moles/Vol] 105 mmol/L Normal 98-107 [facility] Comment on above: Performed By: #### L AB17, LAB18 #### Government Guard: JEAN PIERRE [place] ([id number]) [facility]ITALUr[facility] ELLER RITTMAN (SWRLAB) [address] [place] [address] [place] CO2 [Moles/Vol] 31 mmol/L Normal 23-31 [facility] Comment on above: Performed By: #### L AB17, LAB18 #### Government Guard: JEAN PIERRE [place] ([id number]) [facility]ITALUr[facility] ELLER RITTMAN (SWRLAB) [address] [place] [address] Creatinine [Mass/Vol] 0.56 mg/dL Low 0.57-1.11 [facility] Comment on above: Performed By: #### L AB17, LAB18 #### Government Guard: JEAN PIERRE [place] ([id number]) [facility]ITALUr[facility] ELLER RITTMAN (SWRLAB) [address] [place] [address] [place] GLOMERULAR FILTRATION RATE ML/MIN/1.73 SQ M.PREDICTED 89.0 mL/min/1.73m*2 Normal >60.0 [facility] Comment on above: Result Comment: Calc ulation based on the Chronic Kidney Disease Epidemiology Collaboration (CKD-EPI) equation refit without adjustment for race Performed By: #### Safia WHITFIELD17, LAB18 #### Government Guard: JEAN PIERRE [place] ([id number]) [facility]ITALUr[facility] ELLER RITTMAN (SWRLAB) [address] [place] [address] [place] Glucose [Mass/Vol] 91 mg/dL Normal 82-115 [facility] Comment on above: Performed By: #### L AB17, LAB18 #### Government Guard: JEAN PIERRE [place] ([id number]) [facility]ITALUr[facility] ELLER RITTMAN (SWRLAB) [address] [place] [address] [place] Potassium [Moles/Vol] 4.1 mmol/L Normal 3.5-5.1 [facility] Comment on above: Result Comment: [facility] potassium values may be up to 0.5 mmol/L lower than serum values. Performed By: #### L AB17, LAB18 #### Government Guard: JEAN PIERRE [place] ([id number]) [facility]ITALUr[facility] ELLER RITTMAN (SWRLAB) [address] [place] [address] [place] Protein [Mass/Vol] 6.7 g/dL Normal 6.4-8.3 [facility] Comment on above: Performed By: #### L AB17, LAB18 #### Government Guard: JEAN PIERRE [place] ([id number]) [facility]ITALUr[facility] ELLER RITTMAN (SWRLAB) [address] Sodium [Moles/Vol] 138 mmol/L Normal 136-145 [facility] Comment on above: Performed By: #### L AB17, LAB18 #### Government Guard: JEAN PIERRE [place] ([id number]) [facility]ITALUr[facility] ELLER RITTMAN (SWRLAB) [address] Urea nitrogen [Mass/Vol] 20 mg/dL Normal 9-23 [facility] Comment on above: Performed By: #### L AB17, LAB18 #### Government Guard: JEAN PIERRE [place] ([id number]) [facility] DAPHNIE CASTELLANOTMAN (SWRLAB) [address] [place] [address] Comprehensive metabolic 1998 panelon 09-09-2024 Albumin [Mass/Vol] 3.6 g/dL 3.4 - 4.8 g/dL [facility] ALP [Catalytic activity/Vol] 59 U/L 40 - 150 U/L [facility] ALT [Catalytic activity/Vol] 18 U/[facility] U/L [facility] Anion gap [Moles/Vol] 2 mmol/L Low 3 - 13 mmol/L [facility] AST [Catalytic activity/Vol] 21 U/L [facility] - 34 U/L [facility] Bilirubin [Mass/Vol] 0.5 mg/dL [facility] - 1.2 mg/dL [facility] Calcium [Mass/Vol] 9.8 mg/dL 8.8 - 10. 0 mg/dL [facility] Chloride [Moles/Vol] 105 mmol/L 98 - 10 7 mmol/L [facility] CO2 [Moles/Vol] 31 mmol/L 23 - 31 mmol/L [facility] Creatinine [Mass/Vol] 0.56 mg/dL Low 0.57 - 1.11 mg/dL [facility] GFR/1.73 sq M.predicted (S/P/Bld) [Vol rate/Area] 89 mL/min - PINF [facility] Comment on above: Calculation based on the Chronic Kidney Disease Epidemiology Collaboration (CKD-EPI) equation refit without adjustment for race Glucose [Mass/Vol] 91 mg/dL 82 - 115 mg/dL [facility] Potassium [Moles/Vol] 4.1 mmol/L 3.5 - 5.1 mmol/L [facility] Comment on above: Plasma potassium caitlin ues may be up to 0.5 mmol/L lower than serum values. Protein [Mass/Vol] 6.7 g/dL 6.4 - 8.3 g/dL [facility] Sodium [Moles/Vol] 138 mmol/L 136 - 145 mmol/L [facility] Urea nitrogen [Mass/Vol] 20 mg/dL 9 - 23 mg/d L [facility] HEMOGLOBIN A1Con 09-09-2024 Glucose [Mass/Vol] 82 mg/dL Normal [facility] Comment on above: Result Comment: JOHN PAUL Luo COMMENTS: HbA1c values of 5.7-6.4 percent indicate an increased risk for developing diabetes mellitus. HbA1c values greater than or equal to 6.5 percent are diagnostic of diabetes mellitus. For diagnosis of diabetes in individuals without unequivocal hyperglycemia, results should be confirmed by repeat testing. Performed By: #### L AB90 #### Government Guard: JEAN PIERRE [place] ([id number]) [facility] DAPHNIE RITNICOLAS (BitTorrentRLAB) [address] [place] [address] HEMOGLOBIN A1C 4.5 %HbA1C Normal <5.7 [facility] Comment on above: Result Comment: Norm al less than 5.7% Prediabetes 5.7% to 6.4% Diabetes 6.5% or higher --HgbA1C levels may not be accurate in patients who have renal disease, received recent blood transfusions, are anemic, or who have dyshemoglobinemia. Performed By: #### L AB90 #### Government Guard: JEAN PIERRE [place] ([id number]) [facility]OSPITALHealthCare Impact AssociatesAN (SWRLAB) [address] [place] [address] Hemoglobin A1con 09-09-2024 Average glucose Estimated from glycated hemoglobin (Bld) [Mass/Vol] 82 mg/dL [facility] HbA1c (Bld) [Mass fraction] 4.5 % NINF [facility] Comment on above: Normal less than 5.7 [...] results should be confirmed by repeat testing. [facility] LIPID PANELon 09-09-2024 Cholesterol [Mass/Vol] 170 mg/dL Normal <200 [facility] Comment on above: Performed By: #### L AB17, LAB18 #### Government Guard: JEAN PIERRE [place] ([id number]) [facility] HOSPITALEmtricsDAPHNIE RITTMAN (SWRLAB) [address] Cholesterol in HDL [Mass/Vol] 59 mg/dL Low >=60 [facility] Comment on above: Performed By: #### L AB17, LAB18 #### Government Guard: JEAN PIERRE [place] ([id number]) [facility] [employer]ova[employer] RITTMAN (SWRLAB) [address] [place] [address] [place] Cholesterol.total/Choles terol in HDL [Mass ratio] 3 {ratio} Normal [facility] Comment on above: Result Comment: Ref Range: < 3 Low Risk for CHD 3-6 Mod Risk for CHD > 6 High Risk for CHD Performed By: #### L AB17, LAB18 #### Government Guard: JEAN PIERRE [place] ([id number]) [facility] HOSPITALEmtricsDAPHNIE RITTMAN (SWRLAB) [address] [place] [address] [place] LOW DENSITY LIPOPROTEIN 95 mg/dL Normal 0-<100 [facility] Comment on above: Performed By: #### L AB17, LAB18 #### Government Guard: JEAN PIERRE [place] ([id number]) [facility] HOSPITALSportyBirdDAPHNIE RITTMAN (SWRLAB) [address] [place] [address] [place] NON-HDL CHOLESTEROL, CALCULATED 111 Normal <130 [facility] Comment on above: Performed By: #### L AB17, LAB18 #### Government Guard: JEAN PIERRE [place] ([id number]) [employer] ELLER RITTMAN (SWRLAB) [address] Triglyceride [Mass/Vol] 80 mg/dL Normal <150 [facility] Comment on above: Performed By: #### Safia AB17, LAB18 #### Government Guard: JEAN PIERRE [place] ([id number]) [facility] HOSPITALUrban ELLER RITTMAN (SWRLAB) [address] VERY LOW DENSITY LIPOPROTEIN, CALCULATED 16 mg/dL Normal <=30 [facility] Comment on above: Performed By: #### Safia WHITFIELD17, LAB18 #### Government Guard: JEAN PIERRE [place] ([id number]) [employer] ELLER RITTMAN (SWRLAB) [address] [place] [address] Lipid 1996 panelon 5 Cholesterol [Mass/Vol] 170 mg/dL NINF - 200 mg/dL [employer] Cholesterol in HDL [Mass/Vol] 59 mg/dL Low 60 - PINF mg/dL [employer] Cholesterol in LDL [Mass/Vol] 95 mg/dL 0 - <100 [employer] Cholesterol.total/Choles terol in HDL [Mass ratio] 3 {ratio} [employer] Comment on above: Ref Range: < 3 Low Risk for CHD 3-6 Mod Risk for CHD > 6 High Risk for CHD NON-HDL CHOLESTEROL, CALCULATED 111 NINF - 130 [employer] Triglyceride [Mass/Vol] 80 mg/dL NINF - 150 mg/dL [employer] VERY LOW DENSITY LIPOPROTEIN, CALCULATED 16 mg/dL NINF - 30 mg/dL [employer] No Panel Informationon 09-09 Interpretation and review of laboratory results Abnormal [facility] [employer] CNPPascale 09-02-2024 PHAN Telephone (FPWADS) TENA CANNON ([id number]) 1940 F Date Time Provider Department 09/02/24 SAHRA GUY During your visit today, we recorded the following information about you: Tete Melchor 09/02/2024 11:14 AM Signed Tena is a patient of Sahra Guy MD today LOBO Garcia called from the [facility] and stated the patient wants to find out her lab test results. Per Radha, the patient administers her own medications so it is fine to speak with the patient, please call her today. Patient has been identified by name and birthdate. Duration of symptoms: N/A Person calling: self Call patient at: on cell [phone] (home) [phone] (cell) Was an appointment scheduled: No Closing statement: Results or non-symptom based questions: Thank you for calling [facility], your call will be returned within the next business day. Malika Valdez LPN 09/02/2024 12:15 PM Signed See previous encounter Allergies As of Date: 09/02/2024 Noted Allergy Reaction KEFLEX (CEPHALEXIN) 05/12/2005 6 - Diarrhea 8 - GI Upset Comments: "extreme diarrhea" VIOXX (ROFECOXIB) 05/12/2005 5 - Intolerance Comments: "Makes capillaryblood vessels break" NOVOCAIN (PROCAINE HCL) 01/13/2024 5 - Intolerance Comments: headaches OMEGA-3 FISH OIL (OMEGA-3 FATTY A*05/05/2007 5 - Intolerance Comments: bleeding in eye ADVIL (IBUPROFEN) 05/28/2005 5 - Intolerance Comments: "Makes capillary blood vessels bread" ASA (SALICYLATES) 05/28/2005 5 - Intolerance Comments: "Makes capillary blood vessels break" Date Reviewed: 08/23/2024 Reviewed by: Adonay Marquez [...] TEARS OPHTHALMIC) Use in eyes. 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 Normal [facility] CNPNon 09-01-2024 CNPN Telephone (FPWADS) TENA CANNON ([id number]) 1940 F Date Time Provider Department 09/01/24 SAHRA GUY During your visit today, we recorded the following information about you: Jolanta Uriel 09/01/2024 1:23 PM Signed Rachel with [employer] is calling Sahra Guy MD today to request this month's Office visit Notes. Faxed to Rachel at fax number [phone] Allergies As of Date: 09/01/2024 Noted Allergy Reaction KEFLEX (CEPHALEXIN) 05/12/2005 6 - Diarrhea 8 - GI Upset Comments: "extreme diarrhea" VIOXX (ROFECOXIB) 05/12/2005 5 - Intolerance Comments: "Makes capillaryblood vessels break" NOVOCAIN (PROCAINE HCL) 01/13/2024 5 - Intolerance Comments: headaches OMEGA-3 FISH OIL (OMEGA-3 FATTY A*05/05/2007 5 - Intolerance Comments: bleeding in eye ADVIL (IBUPROFEN) 05/28/2005 5 - Intolerance Comments: "Makes capillary blood vessels bread" ASA (SALICYLATES) 05/28/2005 5 - Intolerance Comments: "Makes capillary blood vessels break" Date Reviewed: 08/23/2024 Reviewed by: Adonay Marquez [...] TEARS OPHTHALMIC) Use in eyes. - rutin/hesp/bioflav/C/h [id number] (BIOFLEX ORAL) Take 1 capsule by mouth [...] LOWER LEG [M25.569] 01/22/2007 VERTEBRAL FX NOS-CLOSED [[id number]] 03/24/2007 RESTLESS LEGS SYNDROME [G25.81] BONE AND [...] pain [R10.13] 08/25/2018 11/24/2018 Encounter Status:Closed by URIEL STOVER on 09/01/24 [facility] Telephone (FPWADS) TENA CANNON ([id number]) 1940 F Date Time Provider Department 09/01/24 SAHRA GUY During your visit today, we recorded the following information about you: Sahra Guy MD 09/01/2024 3:16 PM Signed Lipid shows midley elevated LDL "bad" cholesterol , the hdl cholesterol is quite low. That's a change from previous. Not sure this is a correct value. Don't think we'd do anything different, but could repeat the lab at some point. Blood count OK MD Aguilar Mitchell Lisa, LPN 09/02/2024 12:18 PM Signed LM for patient to call office. She had assisted living nurse call office in separate encounter Uriel Stover 09/02/2024 2:09 PM Signed Patient calling requesting a call back from a nurse. [phone] Adonay Marquez LPN 09/02/2024 4:02 PM Signed Called and informed pt of pcp interpretation and recommendation. Pt would like to schedule a follow up and have a repeat lab draw in the office. Please assist pt with scheduling Sahra Guy MD 09/05/2024 10:04 AM Signed We can see her any time and do the repeat lab . MD Nona Mitchell Shannon 09/06/2024 11:37 AM Signed Called and scheduled pt f/u. She wanted PCP to have results prior to appt so she is getting lab drawn in [place]. Allergies As of Date: 09/01/2024 Noted Allergy Reaction KEFLEX (CEPHALEXIN) 05/12/2005 6 - Diarrhea 8 - GI Upset Comments: "extreme diarrhea" VIOXX (ROFECOXIB) 05/12/2005 5 - Intolerance Comments: "Makes capillaryblood vessels break" NOVOCAIN (PROCAINE HCL) 01/13/2024 5 - Intolerance Comments: headaches OMEGA-3 FISH OIL (OMEGA-3 FATTY A*05/05/2007 5 - Intolerance Comments: bleeding in eye ADVIL (IBUPROFEN) 05/28/2005 5 - Intolerance Comments: "Makes capillary blood vessels bread" ASA (SALICYLATES) 05/28/2005 5 - Intolerance Comments: "Makes capillary blood vessels break" Date Reviewed: 08/23/2024 Reviewed by: Adonay Marquez [...] TEARS OPHTHALMIC) Use in eyes. - rutin/hesp/bioflav/C/h [id number] (BIOFLEX ORAL) Take 1 capsule by mouth [...] LOWER LEG [M25.569] 01/22/2007 VERTEBRAL FX NOS-CLOSED [[id number]] 03/24/2007 RESTLESS LEGS SYNDROME [G25.81] BONE AND CARTILAGE DIS NOS [M89.9, M94.9] PAIN IN LIMB [M79.609] 11/22/2008 Deformity of ankle (more content not included)... Normal [facility] 08-31-2024 CNPN Telephone (FPWADS) TENA CANNON ([id number]) 1940 F Date Time Provider Department 08/31/24 SAHRA GUY During your visit today, we [...] calling: self Call patient at: at home [phone] (home) [phone] (cell) Was an appointment scheduled: No Closing statement: Results or non-symptom based questions: Thank you for calling [facility], your call will be returned within the next business day. Sahra James MD 09/01/2024 12:06 PM Signed No results in scanned docs, do we have them? Adonay Marquez LPN 09/01/2024 3:10 PM Signed Results entered into pt chart. Please advise. Allergies As of Date: 08/31/2024 Noted Allergy Reaction KEFLEX (CEPHALEXIN) 05/12/2005 6 - Diarrhea 8 - GI Upset Comments: "extreme diarrhea" VIOXX (ROFECOXIB) 05/12/2005 5 - Intolerance Comments: "Makes capillaryblood vessels break" NOVOCAIN (PROCAINE HCL) 01/13/2024 5 - Intolerance Comments: headaches OMEGA-3 FISH OIL (OMEGA-3 FATTY A*05/05/2007 5 - Intolerance Comments: bleeding in eye ADVIL (IBUPROFEN) 05/28/2005 5 - Intolerance Comments: "Makes capillary blood vessels bread" ASA (SALICYLATES) 05/28/2005 5 - Intolerance Comments: "Makes capillary blood vessels break" Date Reviewed: 08/23/2024 Reviewed by: Adonay Marquez LPN - Fully Assessed Reason for Visit: Results [95] Cmt: Lab tests Order(s):LIPID PANEL BASIC [SQLIPB] Order #: [id number] HBA1C (OUTSIDE) [[id number]] Order #: [id number] COMPLETE BLOOD COUNT AND DIFFERENTIAL [SQCBCDIF] Order #: [id number] Prescriptions as of 11/12/2024 - metFORMIN (GLUCOPHAGE) [...] TEARS OPHTHALMIC) Use in eyes. 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 Normal [facility] CBC W Auto Differential pane l (Bld)on 08-26-2024 Basophils/100 WBC (Bld) 0.6 % [facility] CD59 deficient monocytes/100 cells (Bld) 14.2 Abnormal [facility] EOSINOPHILS,ABSOLUTE 0.1 [facility] Eosinophils/100 WBC (Bld) 2.6 % [facility] Erythrocyte distribution width (RBC) [Ratio] 12.9 % 11.5 - 14.5 % [facility] Hematocrit (Bld) [Volume fraction] 35.8 % Abnormal 37 - 47 % [facility] Hemoglobin (Bld) [Mass/Vol] 12.3 g/dL [facility] Lymphocytes (Bld) [#/Vol] 1.6 10*3/uL [facility] Lymphocytes/100 WBC (Bld) 33 % [facility] MCH (RBC) [Entitic mass] 32.6 pG 27 - 34 pG [facility] MCHC 34.4 % 32 - 36 % [facility] MCV (RBC) [Entitic vol] 94.8 fL 80 - 100 fL [facility] Monocytes (Bld) [#/Vol] 0.7 10*3/uL [facility] NEUTROPHILS ABSOLUTE 2.5 [facility] Neutrophils/100 WBC (Bld) 49.6 % [facility] Nucleated RBC (Bld) [#/Vol] 0.2 10*3/uL [facility] Platelet mean volume (Bld) [Entitic vol] 10 % 7.3 - 11.1 % [facility] Platelets (Bld) [#/Vol] 164 10*3/uL [facility] RBC (Bld) [#/Vol] 3.77 10*6/uL Abnormal [facility] WBC (Bld) [#/Vol] 5 10*3/uL 4.0 - 11.0 K/uL [facility] HBA1C (OUTSIDE)on 08-26-2024 HbA1c (Bld) [Mass fraction] 4.7 % [facility] Lipid 1996 panelon Cholesterol [Mass/Vol] 162 mg/dL - 199 mg/dL [facility] Cholesterol in HDL [Mass/Vol] 7 mg/dL Critically low [facility] Cholesterol in LDL [Mass/Vol] 127 mg/dL [facility] LDL/HDL RATIO 18.1 [facility] Triglyceride [Mass/Vol] 140 mg/dL [facility] VLDL Cholesterol 28 [facility] No Panel Informationon 08-26 Interpretation and review of laboratory results Abnormal [facility] CNPNon 08-24-2024 ANTONYN Telephone (FPWADS) TENA CANNON ([id number]) 1940 F Date Time Provider Department 08/24/24 SAHRA GUY During your visit today, we recorded the following information about you: Adonay Marquez LPN 08/24/2024 10:26 AM Signed Received orders from [employer]. Placed in provider's inbox for review. Route to [place] fax Allergies As of Date: 08/24/2024 Noted Allergy Reaction KEFLEX (CEPHALEXIN) 05/12/2005 6 - Diarrhea 8 - GI Upset Comments: "extreme diarrhea" VIOXX (ROFECOXIB) 05/12/2005 5 - Intolerance Comments: "Makes capillaryblood vessels break" NOVOCAIN (PROCAINE HCL) 01/13/2024 5 - Intolerance Comments: headaches OMEGA-3 FISH OIL (OMEGA-3 FATTY A*05/05/2007 5 - Intolerance Comments: bleeding in eye ADVIL (IBUPROFEN) 05/28/2005 5 - Intolerance Comments: "Makes capillary blood vessels bread" ASA (SALICYLATES) 05/28/2005 5 - Intolerance Comments: "Makes capillary blood vessels break" Date Reviewed: 08/23/2024 Reviewed by: Adonay Marquez LPN - Fully Assessed Reason for Visit: Orders [681] Cmt: [employer] [facility] Prescriptions as of 08/24/2024 - metFORMIN (GLUCOPHAGE) [...] TEARS OPHTHALMIC) Use in eyes. 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, M21.6X9] 11/27/2008 Poliomyelitis osteopathy of multiple sites (HCC*11/27/2008 Sleep apnea [G47.30] 04/15/2010 02/01/2019 Vitamin D Deficiency [E55.9] 04/15/2010 Osteopenia [M85.80] 04/15/2010 Incontinence [R32] 07/19/2012 Fracture of L1 vertebra ([facility]) [S32.019A] 06/02/2014 02/01/2019 Lumbar radiculopathy [M54.16] 06/03/2014 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 Obstructive sleep apnea on CPAP [G47.33] 07/14/2017 Rosacea [L71.9] 10/13/2017 Obesity, Class III, BMI 40-49.9 (morbid obesity*12/02/2017 Generalized weakness [R53.1] 07/29/2018 Shingles rash [B02.9] 07/29/2018 02/01/2019 Herpes zoster lesion [B02.8] 07/29/2018 02/01/2019 Epigastric pain [R10.13] 08/25/2018 11/24/2018 Encounter Status:Closed by ADONAY MARQUEZ on 08/24/24 [facility] CNOVon 08-23-2024 CNOV Office Visit (FPWADS ) TENA CANNON ([id number]) 1940 F Date Time Provider Department 08/23/24 10:00 AM SAHRA GUY FPWADS During your visit today, [...] food (such as fried foods, sweets and "junk food")? most of the time. List of current specialists seen: Optometry Does patient see eye doctor routinely? Yes Do you have an advance directive, such as health care power of compliance attorney or living will? yes Would you like [...] 156/83 Pulse 60 Ht 142.2 cm (4' 8") SpO2 95% BMI 44.26 kg/m? Repeat BP: [...] area. Assessment/Plan Medicare annual wellness visit, subsequent (Z00.00) - Fall avoidance information provided - Personalized prevention plan provided (Z00.) Medicare annual wellness visit, subsequent (primary encounter diagnosis) Comment: 83 year old generally healthy female here for medicare visit Plan: As below (E66.01) Obesity, Class III, 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) Comment: Stable. In need of refill Plan: [...] multiple thuy (more content not included)... Normal [facility] 08-22-2024 CNPN Telephone (FAMPTW) TENA CANNON ([id number]) 1940 F Date Time Provider Department 08/22/24 SAHRA GUY During your visit today, we recorded the following information about you: Rickconstance Mabel Norma 08/22/2024 11:10 AM Signed Tena is calling Sahra Guy MD today is now using [employer] with a new insurance company( using the [...] calling: self Call patient at: at home [phone] (home) [phone] (cell) Was an appointment scheduled: Yes: Date/Time: 08/23/[address] Guy Closing statement: Results or non-symptom based questions: Thank you for calling [facility], your call will be returned within the next business day. [facility]a [facility] Adonay Marquez LPN 08/22/2024 3:37 PM Signed Noted. Allergies As of Date: 08/22/2024 Noted Allergy Reaction KEFLEX (CEPHALEXIN) 05/12/2005 6 - Diarrhea 8 - GI Upset Comments: "extreme diarrhea" VIOXX (ROFECOXIB) 05/12/2005 5 - Intolerance Comments: "Makes capillaryblood vessels break" NOVOCAIN (PROCAINE HCL) 01/13/2024 5 - Intolerance Comments: headaches OMEGA-3 FISH OIL (OMEGA-3 FATTY A*05/05/2007 5 - Intolerance Comments: bleeding in eye ADVIL (IBUPROFEN) 05/28/2005 5 - Intolerance Comments: "Makes capillary blood vessels bread" ASA (SALICYLATES) 05/28/2005 5 - Intolerance Comments: "Makes capillary blood vessels break" Date Reviewed: 08/11/2024 Reviewed by: Heidy Valencia LPN - Fully Assessed Reason for Visit: Patient Update [1234] Cmt: At office visit on 08/23/2024 please fill all Rx's that apply per patient [facility] mail order Prescriptions as of [...] LOWER LEG [M25.569] 01/22/2007 VERTEBRAL FX NOS-CLOSED [[id number]] 03/24/2007 RESTLESS LEGS SYNDROME [G25.81] BONE AND CARTILAGE DIS NOS [M89.9, M94.9] PAIN IN LIMB [M79.609] 11/22/2008 Deformity of ankle and foot, acquired [M21.969] 11/22/2008 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, M21.6X9] 11/27/2008 Poliomyelitis osteopathy of multiple sites ( (more content not included)... Normal [facility] CNPNon 08-15-2024 ANTONYN Telephone (FPWADS) TENA CANNON ([id number]) 1940 F Date Time Provider Department 08/15/24 SAHRA GUY During your visit today, we recorded the following information about you: Uriel Stover 08/15/2024 2:19 PM Signed Rachel with [facility] is calling regarding Home PT and OT. [...] flag will happen. Please call Rachel at [phone] Leonid Leal APRN.PHARMACIST HELPER 08/15/2024 3:01 PM Signed Please clarify what [...] Medicare-fee for service contractor to change your name." Copied and pasted from https://pecos.cms.[facility]. gov/pecos/help-main/fa q.jsp Please advise. Alicia Sultana 08/17/2024 9:25 AM Signed Rachel from [facility] calling back and states that since patient is scheduled with Dr. Guy on 08/23 they will be able to use his name as a certifying provider. [facility] asking for a verbal order from Dr. Guy. Please return call to [phone] Leonid Leal APRN.ANTONY 08/17/2024 10:49 AM Signed Yes, please give verbal order on behalf of Dr. Malena Leal APRN.Malika Tidwell LPN 08/17/2024 10:59 AM [...] - Diarrhea 8 - GI Upset Comments: "extreme diarrhea" VIOXX (ROFECOXIB) 05/12/2005 5 - Intolerance Comments: "Makes capillaryblood vessels break" NOVOCAIN (PROCAINE HCL) 01/13/2024 5 - Intolerance Comments: headaches OMEGA-3 FISH OIL (OMEGA-3 FATTY A*05/05/2007 5 - Intolerance Comments: bleeding in eye ADVIL (IBUPROFEN) 05/28/2005 5 - Intolerance Comments: "Makes capillary blood vessels bread" ASA (SALICYLATES) 05/28/2005 5 - Intolerance Comments: "Makes capillary blood vessels break" Date Reviewed: 08/11/2024 Reviewed by: Heidy Valencia [...] in the (more content not included)... Normal [facility] CNOVon 08-11-2024 CNOV Office Visit (FPWADS ) TENA CANNON ([id number]) 1940 F Date Time Provider Department 08/11/24 1:20 PM LEONID LEAL During your visit today, we recorded the following information about you: Pulse Blood pressure 66/minute 146/77 Leonid Leal APRN.PHARMACIST HELPER 08/11/2024 3:02 PM Signed This note was created using [employer]amer[employer]. Subjective Tena Cannon is a 83 year [...] took her a while to get it "released". Wears medical alert, called EMS for assistance. [...] Keflex [Cephalexin], Vioxx [Rofecoxib], Novocain [Procaine Hcl], [place]-3 Fish Oil [[place]-3 Fatty Acids-Vitamin E], Advil [Ibuprofen], and Asa [...] (LIQUID TEARS OPHTHALMIC) Use in eyes. rutin/hesp/bioflav/C/h [id number] (BIOFLEX ORAL) Take 1 capsule by mouth twice daily. CPAP BipaP @ 14/9 cm of water with humidification, removable water dispenser (for cleaning) . Mask (small/ per patient preference) , filters, tubing, humidifier and lifetime supplies. (G47.33, Z99.89) Obstructive sleep apnea on CPAP cyclopentolate (CYCLOGYL) (more content not included)... Normal [facility] 08-11-2024 CNPN Nurse Triage (FPCOLTON ) TENA CANNON ([id number]) 1940 F Date Time Provider Department 08/11/24 [...] calling: self Call patient at: at home [phone] (home) [phone] (cell) Was an appointment scheduled: No Closing statement: Symptom Call: Thank you for calling [facility], your call is very important. A [...] Denies 11. : N/a Protocols used: Back [id number] Allergies As of Date: 08/11/2024 Noted Allergy Reaction KEFLEX (CEPHALEXIN) 05/12/2005 6 - Diarrhea 8 - GI Upset Comments: "extreme diarrhea" VIOXX (ROFECOXIB) 05/12/2005 5 - Intolerance Comments: "Makes capillaryblood vessels break" NOVOCAIN (PROCAINE HCL) 01/13/2024 5 - Intolerance Comments: headaches OMEGA-3 FISH OIL (OMEGA-3 FATTY A*05/05/2007 5 - Intolerance Comments: bleeding in eye ADVIL (IBUPROFEN) 05/28/2005 5 - Intolerance Comments: "Makes capillary blood vessels bread" ASA (SALICYLATES) 05/28/2005 5 - Intolerance Comments: "Makes capillary blood vessels break" Date Reviewed: 12/10/2023 Reviewed by: Adonay Marquez [...] TEARS OPHTHALMIC) Use in eyes. - rutin/hesp/bioflav/C/h [id number] (BIOFLEX ORAL) Take 1 capsule by mouth twice daily. - CPAP BipaP @ 14/9 cm of water with humidification, removable water dispenser (for cleaning) . Mask (small/ per patient preference) , filters, tubing, humidifier and lifetime supplies. (G47.33, Z99.89) Obstructive sleep apnea on CPAP - cyclopentola (more content not included)... [facility]) TENA CANNON ([id number]) 1940 F Date Time Provider Department 06/23/24 SAHRA GUY [employer] During your visit today, we recorded the following information about you: Adonay Marquez LPN 06/23/2024 3:19 PM Signed Received DNR order from [employer]. Placed in provider's inbox for review. Route to [place] fax Allergies As of Date: 06/23/2024 Noted Allergy Reaction KEFLEX (CEPHALEXIN) 05/12/2005 6 - Diarrhea 8 - GI Upset Comments: "extreme diarrhea" VIOXX (ROFECOXIB) 05/12/2005 5 - Intolerance Comments: "Makes capillaryblood vessels break" NOVOCAIN (PROCAINE HCL) 01/13/2024 5 - Intolerance Comments: headaches OMEGA-3 FISH OIL (OMEGA-3 FATTY A*05/05/2007 5 - Intolerance Comments: bleeding in eye ADVIL (IBUPROFEN) 05/28/2005 5 - Intolerance Comments: "Makes capillary blood vessels bread" ASA (SALICYLATES) 05/28/2005 5 - Intolerance Comments: "Makes capillary blood vessels break" Date Reviewed: 12/10/2023 Reviewed by: Adonay Marquez LPN - Fully Assessed Reason for Visit: Orders [681] [facility] Prescriptions as of 06/23/2024 - oxybutynin ER [...] LOWER LEG [M25.569] 01/22/2007 VERTEBRAL FX NOS-CLOSED [[id number]] 03/24/2007 RESTLESS LEGS SYNDROME [G25.81] BONE AND [...] Encounter Status:Closed by ADONAY MARQUEZ on 06/23/24 [facility] 06-02-2024 [facility] Telephone (FPWADS) TENA CANNON ([id number]) 1940 F Date Time Provider Department 06/02/24 SAHRA GUY FPWADS During your visit today, [...] calling: self Call patient at: at home [phone] (home) [phone] (cell) Was an appointment scheduled: No Closing statement: Results or non-symptom based questions: Thank you for calling [facility], your call will be returned within the next business day. Sahra Hooker MD 06/02/2024 5:13 PM Signed 197 lbs., MD Aguilar Mitchell Lisa, DISPENSING AUDIOLOGIST 06/03/2024 8:55 AM Signed Weights have been declined. Patient in motorized wheelchair. Voicemail left for patient. Allergies As of Date: 06/02/2024 Noted Allergy Reaction KEFLEX (CEPHALEXIN) 05/12/2005 6 - Diarrhea 8 - GI Upset Comments: "extreme diarrhea" VIOXX (ROFECOXIB) 05/12/2005 5 - Intolerance Comments: "Makes capillaryblood vessels break" NOVOCAIN (PROCAINE HCL) 01/13/2024 5 - Intolerance Comments: headaches OMEGA-3 FISH OIL (OMEGA-3 FATTY A*05/05/2007 5 - Intolerance Comments: bleeding in eye ADVIL (IBUPROFEN) 05/28/2005 5 - Intolerance Comments: "Makes capillary blood vessels bread" ASA (SALICYLATES) 05/28/2005 5 - Intolerance Comments: "Makes capillary blood vessels break" Date Reviewed: 12/10/2023 Reviewed by: Adonay Marquez [...] TEARS OPHTHALMIC) Use in eyes. 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 Normal [facility] CAN[facility],TENA M ([id number]) 1940 F Date Time Provider Department 06/02/24 SAHRA GUY During your visit today, we recorded the following information about you: Norma Long 06/02/2024 2:18 PM Signed Tena is calling Sahra Guy MD today to request patient medication list be mailed to her please . The address has been verified Patient has been identified by name and birthdate. Person calling: self Call patient at: at home [phone] (home) [phone] (cell) Was an appointment scheduled: No Closing statement: Results or non-symptom based questions: Thank you for calling [facility], your call will be returned within the next business day. [facility] Malika Sheikh LPN 06/03/2024 8:36 AM Signed Placed in mail for patient. Allergies As of Date: 06/02/2024 Noted Allergy Reaction KEFLEX (CEPHALEXIN) 05/12/2005 6 - Diarrhea 8 - GI Upset Comments: "extreme diarrhea" VIOXX (ROFECOXIB) 05/12/2005 5 - Intolerance Comments: "Makes capillaryblood vessels break" NOVOCAIN (PROCAINE HCL) 01/13/2024 5 - Intolerance Comments: headaches OMEGA-3 FISH OIL (OMEGA-3 FATTY A*05/05/2007 5 - Intolerance Comments: bleeding in eye ADVIL (IBUPROFEN) 05/28/2005 5 - Intolerance Comments: "Makes capillary blood vessels bread" ASA (SALICYLATES) 05/28/2005 5 - Intolerance Comments: "Makes capillary blood vessels break" Date Reviewed: 12/10/2023 Reviewed by: Adonay Marquez LPN - Fully Assessed Reason for Visit: Patient Question [2089] Prescriptions as of 06/03/2024 - esomeprazole (NEXIUM) [...] TEARS OPHTHALMIC) Use in eyes. - rutin/hesp/bioflav/C/h [id number] (BIOFLEX ORAL) Take 1 capsule by mouth [...] LOWER LEG [M25.569] 01/22/2007 VERTEBRAL FX NOS-CLOSED [[id number]] 03/24/2007 RESTLESS LEGS SYNDROME [G25.81] BONE AND CARTILAGE DIS NOS [M89.9, M94.9] PAIN IN LIMB [M79.609] 11/22/2008 Deformity of ankle and foot, acquired [M21.969] 11/22/2008 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, M21.6X9] 11/27/2008 Poliomyelitis osteopathy of multiple sites ([facility]*11/27/2008 Sleep apnea [G47.30] 04/15/2010 02/01/2019 Vitamin D Deficiency [E55.9] 04/15/2010 Osteopenia [M85.80] 04/15/2010 Incontinence [R32] 07/19/2012 Fracture of L1 vertebra ([facility]) [S32.019A] 06/02/2014 02/01/2019 Lumbar radiculopathy [M54.16] 06/03/2014 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 Normal [facility] 05-18-2024 CNPN Telephone (JULIANNAWAANA M) TEAN CANNON ([id number]) 1940 F Date Time Provider Department 05/18/24 [...] doctor since December. Please advise her at [phone] Adonay Marquez LPN 05/18/2024 11:53 AM Signed RSV vaccine is not covered in office with pt insurance. Please assist pt in scheduling office visit with provider for a check up. Allergies As of Date: 05/18/2024 Noted Allergy Reaction KEFLEX (CEPHALEXIN) 05/12/2005 6 - Diarrhea 8 - GI Upset Comments: "extreme diarrhea" VIOXX (ROFECOXIB) 05/12/2005 5 - Intolerance Comments: "Makes capillaryblood vessels break" NOVOCAIN (PROCAINE HCL) 01/13/2024 5 - Intolerance Comments: headaches OMEGA-3 FISH OIL (OMEGA-3 FATTY A*05/05/2007 5 - Intolerance Comments: bleeding in eye ADVIL (IBUPROFEN) 05/28/2005 5 - Intolerance Comments: "Makes capillary blood vessels bread" ASA (SALICYLATES) 05/28/2005 5 - Intolerance Comments: "Makes capillary blood vessels break" Date Reviewed: 12/10/2023 Reviewed by: Adonay Marquez [...] TEARS OPHTHALMIC) Use in eyes. - rutin/hesp/bioflav/C/h [id number] (BIOFLEX ORAL) Take 1 capsule by mouth [...] LOWER LEG [M25.569] 01/22/2007 VERTEBRAL FX NOS-CLOSED [[id number]] 03/24/2007 RESTLESS LEGS SYNDROME [G25.81] BONE AND [...] Shingles rayshawn (more content not included)... Normal [facility] 25-hydroxyvitamin D3 [Mass/V ol]on 03-03-2024 Interpretation and review of laboratory results Normal [facility] Therapy is based on measurement of Total 25-OHD with the following classification levels: Less than 20 ng/mL: Indicative of Vit D deficiency 20-30 ng/mL: Suggests Vit D insufficiency Optimal: Greater than or equal to 30 ng/mL Test performed by [employer] Competitive Immunoassay, measuring Total Vitamin D, not individual fractions. [facility] CBC (HEMOGRAM)on 03-03-2024 Erythrocyte distribution width (RBC) [Ratio] 12.3 % Normal 11.5-15.0 [facility] Comment on above: Performed By: #### L [id number] #### Government Guard: JEAN [place] ([id number]) [facility] ([facility]) [address] [place] [address] Hematocrit (Bld) [Volume fraction] 40.5 % Normal 35.0-47.0 [facility] Comment on above: Performed By: #### L [id number] #### Government Guard: [place] ([id number]) [facility] ELLER [employer]ITTM[employer] ([employer]) [address] [place] [address] Hemoglobin (Bld) [Mass/Vol] 14.1 g/dL Normal 11.7-16.0 [facility] Comment on above: Performed By: #### L [id number] #### Government Guard: JEAN [place] ([id number]) [facility] [employer] ([employer]) [address] [place] [address] MCH (RBC) [Entitic mass] 31.7 pg Normal 26.0-34.0 [facility] Comment on above: Performed By: #### L [id number] #### Government Guard: JEAN [place] ([id number]) [facility] [employer]ER [employer] ([facility]) [address] [place] [address] MCHC 34.8 % Normal 30.5-36.0 [facility] Comment on above: Performed By: #### L [id number] #### Government Guard: [place] ([id number]) KELLY ELLER [employer]ITTMAN ([employer]) [address] [place] [address] MCV (RBC) [Entitic vol] 91.0 fL Normal 77.0-99.0 [facility] Comment on above: Performed By: #### L [id number] #### Government Guard: [place] ([id number]) [facility] [employer] ([employer]) [address] [place] [address] Platelet mean volume (Bld) [Entitic vol] 11.2 fL Normal 9.0-12.7 [facility] Comment on above: Result Comment: MPV is a calculated measurement using platelet volume ratio Performed By: #### L [id number] #### Government Guard: JEAN [place] ([id number]) [facility] [employer]LLER [employer]ITTM[employer] ([employer]) [address] [place] [address] [place] Platelets (Bld) [#/Vol] 177 10*3/uL Normal 140-440 [facility] Comment on above: Performed By: #### L [id number] #### Government Guard: JEAN [place] ([id number]) [facility] [employer] ([employer]) [address] [place] [address] RBC (Bld) [#/Vol] 4.45 10*6/uL Normal 3.80-5.20 [facility] Comment on above: Performed By: #### L [id number] #### Government Guard: JEAN [place] ([id number]) [facility] [employer] ([facility]) [address] [place] [address] WBC (Bld) [#/Vol] 3.7 10*3/uL Normal 3.6-10.7 [facility] Comment on above: Performed By: #### L [id number] #### Government Guard: JEAN [place] ([id number]) [facility] CASTELLANOTMAN ([facility]) [address] [place] [address] CBC panel Auto (Bld)on 03-03 Erythrocyte distribution width (RBC) [Ratio] 12.3 % 11.5 - 15.0 % [facility] Hematocrit (Bld) [Volume fraction] 40.5 % 35.0 - 47.0 % [facility] Hemoglobin (Bld) [Mass/Vol] 14.1 g/dL 11.7 - 16.0 g/dL [facility] Interpretation and review of laboratory results Normal [facility] MCH (RBC) [Entitic mass] 31.7 pg 26. 0 - 34.0 pg [facility] MCHC (RBC) [Mass/Vol] 34.8 % 30.5 - 36.0 % [facility] MCV (RBC) [Entitic vol] 91 fL 77.0 - 99.0 fL [facility] Platelet mean volume (Bld) [Entitic vol] 11.2 fL 9.0 - 12.7 fL [facility] Comment on above: MPV is a calculated measurement using platelet volume ratio Platelets (Bld) [#/Vol] 177 10*3/uL 140 - 440 10*3/uL [facility] RBC (Bld) [#/Vol] 4.45 10*6/uL 3.80 - 5.2 0 10*6/uL [facility] WBC (Bld) [#/Vol] 3.7 10*3/uL 3.6 - 10.7 10*3/uL [facility] COMPREHENSIVE METABOLIC PANE Kojo 03-03-2024 Albumin [Mass/Vol] 4.1 g/dL Normal 3.5-5.0 [facility] Comment on above: Performed By: #### L AB17, [id number] #### Government Guard: JEAN [place] ([id number]) [facility] FAGANDAPHNIE RITTMAN (SWRL[employer]) [address] ALP [Catalytic activity/Vol] 69 U/L Normal 38-126 [facility] Comment on above: Performed By: #### L AB17, LAB18 #### Government Guard: [place]AN [place] ([id number]) [facility] DAPHNIE RITTMAN ([employer]) [address] ALT [Catalytic activity/Vol] 18 U/L Normal 0-34 [facility] Comment on above: Performed By: #### L AB17, LAB18 #### [employer]: [place] ([id number]) [facility] (SWRLAB) [address] Anion gap [Moles/Vol] 7 mmol/L Normal 3-13 [facility] Comment on above: Performed By: #### L AB17, LAB18 #### Government Guard: JEAN PIERRE [place] ([id number]) [facility] (SWRLAB) [address] AST [Catalytic activity/Vol] 25 U/L Normal 15-46 [facility] Comment on above: Performed By: #### L AB17, LAB18 #### Government Guard: JEAN PIERRE [place] ([id number]) [facility] ELLER RITTMAN (SWRLAB) [address] [place] [address] [place] Bilirubin [Mass/Vol] 0.6 mg/dL Normal 0.2-1.3 [facility] Comment on above: Performed By: #### L AB17, LAB18 #### Government Guard: JEAN PIERRE [place] ([id number]) [facility] (SWRLAB) [address] Calcium [Mass/Vol] 9.8 mg/dL Normal 8.4-10.4 [facility] Comment on above: Performed By: #### L AB17, LAB18 #### Government Guard: JEAN PIERRE [place] ([id number]) [facility] [place] (SWRLAB) [address] [place] [address] [place] Chloride [Moles/Vol] 102 mmol/L Normal 98-107 [facility] Comment on above: Performed By: #### Safia WHITFIELD17, LAB18 #### Government Guard: JEAN PIERRE [place] ([id number]) [facility] ELLER RITTMAN (SWRLAB) [address] [place] [address] [place] CO2 [Moles/Vol] 31 mmol/L High 22-30 [facility] Comment on above: Performed By: #### L AB17, LAB18 #### Government Guard: JEAN PIERRE [place] ([id number]) [facility] E[facility]IT[facility] (SWRLAB) [address] [place] [address] [place] Creatinine [Mass/Vol] 0.45 mg/dL Low 0.52-1.04 [facility] Comment on above: Performed By: #### L AB17, LAB18 #### Government Guard: JEAN PIERRE [place] ([id number]) [facility] E[facility]ER RITTMAN (SWRLAB) [address] [place] [address] GLOMERULAR FILTRATION RATE ML/MIN/1.73 SQ M.PREDICTED >90.0 Normal >60.0 [facility] Comment on above: Result Comment: Calc ulation based on the Chronic Kidney Disease Epidemiology Collaboration (CKD-EPI) equation refit without adjustment for race Performed By: #### L 17, LAB18 #### Government Guard: JEAN PIERRE [place] ([id number]) [facility] E[facility]ER RITTMAN (SWRLAB) [address] [place] [address] [place] Glucose [Mass/Vol] 87 mg/dL Normal 70-100 [facility] Comment on above: Performed By: #### L AB17, LAB18 #### Government Guard: JEAN PIERRE [place] ([id number]) [facility] ELLER RITTMAN (SWRLAB) [address] [place] [address] [place] Potassium [Moles/Vol] 4.2 mmol/L Normal 3.5-5.1 [facility] Comment on above: Performed By: #### Safia ORTIZ, LAB18 #### Government Guard: JEAN PIERRE [place] ([id number]) [facility] E[facility]ER RITTMAN (SWRLAB) [address] [place] [address] [place] Protein [Mass/Vol] 7.1 g/dL Normal 6.3-8.2 [facility] Comment on above: Performed By: #### L AB17, LAB18 #### Government Guard: JEAN PIERRE [place] ([id number]) [facility] FAGANDAPHNIE RITTMAN (SWRLAB) [address] [place] [address] [place] Sodium [Moles/Vol] 140 mmol/L Normal 135-145 [facility] Comment on above: Performed By: #### L AB17, LAB18 #### Government Guard: JEAN PIERRE [place] ([id number]) [facility] FAGANDAPHNIE RITTMAN (SWRLAB) [address] [place] [address] [place] Urea nitrogen [Mass/Vol] 15 mg/dL Normal 7-17 [facility] Comment on above: Performed By: #### L AB17, LAB18 #### Government Guard: JEAN PIERRE [place] ([id number]) [facility] [place]IE RITTMAN (SWRLAB) [address] Comprehensive metabolic 1998 panelon 03-03-2024 Albumin [Mass/Vol] 4.1 g/dL 3.5 - 5.0 g/dL [facility] ALP [Catalytic activity/Vol] 69 U/L 38 - 126 U/L [facility] ALT [Catalytic activity/Vol] 18 U/L 0 - 34 U/L [facility] Anion gap [Moles/Vol] 7 mmol/L 3 - 13 mmol/L [facility] AST [Catalytic activity/Vol] 25 U/L 15 - 46 U/L [facility] Bilirubin [Mass/Vol] 0.6 mg/dL 0.2 - 1 .3 mg/dL [facility] Calcium [Mass/Vol] 9.8 mg/dL 8.4 - 10. 4 mg/dL [facility] Chloride [Moles/Vol] 102 mmol/L 98 - 10 7 mmol/L [facility] CO2 [Moles/Vol] 31 mmol/L High 22 - 30 mmol/L [facility] Creatinine [Mass/Vol] 0.45 mg/dL Low 0.52 - 1.04 mg/dL [facility] GFR/1.73 sq M.predicted (S/P/Bld) [Vol rate/Area] - PINF [facility] Comment on above: Calculation based on the Chronic Kidney Disease Epidemiology Collaboration (CKD-EPI) equation refit without adjustment for race Glucose [Mass/Vol] 87 mg/dL 70 - 100 mg/dL [facility] Potassium [Moles/Vol] 4.2 mmol/L 3.5 - 5.1 mmol/L [facility] Protein [Mass/Vol] 7.1 g/dL 6.3 - 8.2 g/dL [facility] Sodium [Moles/Vol] 140 mmol/L 135 - 145 mmol/L [facility] Urea nitrogen [Mass/Vol] 15 mg/dL 7 - 17 mg/d L [facility] HEMOGLOBIN A1Con 03-03-2024 Glucose [Mass/Vol] 85 mg/dL Normal [facility] Comment on above: Performed By: #### L AB90 #### Government Guard: JEAN PIERRE CA ([id number]) [facility] RITBESSYAN (SWRLAB) [address] HbA1c (Bld) [Mass fraction] 4.6 % Normal <5.7 [facility] Comment on above: Result Comment: Norm al less than 5.7% Prediabetes 5.7% to 6.4% Diabetes 6.5% or higher --HgbA1C levels may not be accurate in patients who have renal disease, received recent blood transfusions, are anemic, or who have dyshemoglobinemia. Performed By: #### L AB90 #### Government Guard: JEAN PIERRE [place] ([id number]) [facility]ITALUr[facility] DAPHNIE Inside Ware[employer]AN (SWRLAB) [address] [place] [address] Hemoglobin A1con 03-03-2024 Average glucose Estimated from glycated hemoglobin (Bld) [Mass/Vol] 85 mg/dL [facility] HbA1c (Bld) [Mass fraction] 4.6 % NINF - 5.7 % [facility] Comment on above: Normal less than 5.7 % Prediabetes 5.7% to 6.4% Diabetes 6.5% or higher --HgbA1C levels may not be accurate in patients who have renal disease, received recent blood transfusions, are anemic, or who have dyshemoglobinemia. [facility] LIPID PANELon 03-03-2024 Cholesterol [Mass/Vol] 182 mg/dL Normal <200 [facility] Comment on above: Performed By: #### L AB17, LAB18 #### Government Guard: JEAN PIERRE [place] ([id number]) [facility]ITALUr[facility] DAPHNIEExtreme Wireless CommunicationAN (SWRLAB) [address] [place] [address] Cholesterol in HDL [Mass/Vol] 69 mg/dL High 40-60 [facility] Comment on above: Performed By: #### L AB17, LAB18 #### Government Guard: JEAN PIERRE [place] ([id number]) [facility]OS[facility]ITALEmtricsDAPHNIEExtreme Wireless CommunicationAN (SWRLAB) [address] [place] [address] Cholesterol.total/Choles terol in HDL [Mass ratio] 3 {ratio} Normal [facility] Comment on above: Result Comment: Ref Range: < 3 Low Risk for CHD 3-6 Mod Risk for CHD > 6 High Risk for CHD Performed By: #### L AB17, LAB18 #### Government Guard: JEAN PIERRE CA ([id number]) [facility] DAPHNIE RITTMAN (SWRLAB) [address] [place] [address] LOW DENSITY LIPOPROTEIN 92 mg/dL Normal 0-<100 [facility] Comment on above: Performed By: #### L AB17, LAB18 #### Government Guard: JEAN PIERRE [place] ([id number]) [facility]SWRLAB) [address] [place] [address] Triglyceride [Mass/Vol] 107 mg/dL Normal <150 [facility] Comment on above: Performed By: #### L AB17, LAB18 #### Government Guard: JEAN PIERRE CA ([id number]) [facility] DAPHNIE RITTMAN (SWRLAB) [address] [place] [address] Lipid 1996 panelon 4 Cholesterol [Mass/Vol] 182 mg/dL NINF - 200 mg/dL [facility] [employer] Cholesterol in HDL [Mass/Vol] 69 mg/dL High 40 - 60 mg/dL [facility] Cholesterol in LDL [Mass/Vol] 92 mg/dL 0 - <100 [facility] Cholesterol.total/Choles terol in HDL [Mass ratio] 3 {ratio} [facility] Comment on above: Ref Range: < 3 Low Risk for CHD 3-6 Mod Risk for CHD > 6 High Risk for CHD Triglyceride [Mass/Vol] 107 mg/dL NINF - 150 mg/dL [facility] [employer] No Panel Informationon 03-03 Interpretation and review of laboratory results Abnormal [facility] VITAMIN D DEFICIENCY SCREENI NG (VIT D 25)on 03-03-2024 VIT D 25-OH, TOTAL 65 ng/mL Normal 30-100 [facility] Comment on above: Result Comment: JOHN PAUL Luo COMMENTS: Therapy is based on measurement of Total 25-OHD with the following classification levels: Less than 20 ng/mL: Indicative of Vit D deficiency 20-30 ng/mL: Suggests Vit D insufficiency Optimal: Greater than or equal to 30 ng/mL Test performed by [employer] Competitive Immunoassay, measuring Total Vitamin D, not individual fractions. Performed By: #### L [id number] #### Government Guard: MAT HOLLIDAY ([id number]) [facility] (SBHLAB) [address] Vitamin D Deficiency Screeni ng (Vit D 25)on 03-03-2024 25-hydroxyvitamin D3 [Mass/Vol] 65 ng/mL 30 - 100 ng/mL [facility] Surgical Tissue Examon 09-07 Surgical Tissue Exam Test performed at [facility] [address] [address] NAME: TENA CANNON REQUESTING: MARBELLA BRUNSON M.D. [...] of immunohistochemical tests have been determined by [facility]'s Department of Pathology and Laboratory Medicine in a manner consistent with CLIA requirements. One or more of these tests have not been cleared or approved by the FDA. [facility] is regulated under CLIA as qualified [...] PRINTED: 09/09/2018 Page 1 of 1 Normal [facility] Comment on above: Performed By: #### S URG #### [place] [address] Hemogramon 08-05-2018 Erythrocyte distribution width Auto Ratio (RBC) 13.7 % Normal 11.5-14.5 [facility] Comment on above: Performed By: #### H EMOG ####[facility] [place] [address] Hematocrit Auto Volume Fraction (Bld) 40.1 % Normal 35.0-47.0 [facility] Comment on above: Performed By: #### H EMOG ####[facility] [place] [address] Hemoglobin mass conc (Bld) 13.0 g/dL Normal 11.7-16.0 [facility] Comment on above: Performed By: #### H EMOG ####[facility] [place] [address] MCH Auto Entitic mass (RBC) 29.0 pg Normal 26.0-34.0 [facility] Comment on above: Performed By: #### H EMOG ####[facility] [place] [address] MCHC Auto mass conc (RBC) 32.4 % Normal 32.0-36.0 [facility] Comment on above: Performed By: #### H EMOG ####[facility] [place] [address] MCV Auto Entitic volume (RBC) 89.5 fL Normal 79.0-98.0 [facility] Comment on above: Performed By: #### H EMOG ####[facility] [place] [address] Platelet mean volume Auto Entitic volume (Bld) 8.7 fL Normal 7.4-10.4 [facility] Comment on above: Performed By: #### H EMOG ####[facility] [place] [address] Platelets Auto #/vol (Bld) 260 10*3/uL Normal 140-440 [facility] Comment on above: Performed By: #### H EMOAileen ####[facility] [place] [address] RBC Auto #/vol (Bld) 4.48 10*6/uL Normal 3.80-5.20 [facility] Comment on above: Performed By: #### H EMOAileen ####[facility] [place] [address] WBC Auto #/vol (Bld) 5.7 10*3/uL Normal 3.6-10.7 [facility] Comment on above: Performed By: #### H JOSE ####[facility] [place] [address] Hemogramon 05-15-2018 Erythrocyte distribution width Auto Ratio (RBC) 13.4 % Normal 11.5-14.5 [facility] Comment on above: Performed By: #### H CONRADO GARCIA ####[facility] [place] [address] Hematocrit Auto Volume Fraction (Bld) 37.2 % Normal 35.0-47.0 [facility] Comment on above: Performed By: #### H CONRADO GARCIA ####[facility] [place] [address] Hemoglobin mass conc (Bld) 12.8 g/dL Normal 11.7-16.0 [facility] Comment on above: Performed By: #### H KARIME GARCIABC ####[facility] [place] [address] MCH Auto Entitic mass (RBC) 30.5 pg Normal 26.0-34.0 [facility] Comment on above: Performed By: #### H JOSE FEIBC ####[address] [place] [address] MCHC Auto mass conc (RBC) 34.3 % Normal 32.0-36.0 [facility] Comment on above: Performed By: #### H KARIME GARCIABC ####[facility] [place] [address] MCV Auto Entitic volume (RBC) 88.8 fL Normal 79.0-98.0 [facility] Comment on above: Performed By: #### H EMOG, FEIBC ####[facility] [place] [address] Platelet mean volume Auto Entitic volume (Bld) 9.0 fL Normal 7.4-10.4 [facility] Comment on above: Performed By: #### H EMOG, FEIBC ####[facility] [place] [address] Platelets Auto #/vol (Bld) 199 10*3/uL Normal 140-440 [facility] Comment on above: Performed By: #### H EMOG, FEIBC ####[facility] [place] [address] RBC Auto #/vol (Bld) 4.19 10*6/uL Normal 3.80-5.20 [facility] Comment on above: Performed By: #### H EMOAileen, FEIBC ####[facility] [place] [address] WBC Auto #/vol (Bld) 7.1 10*3/uL Normal 3.6-10.7 [facility] Comment on above: Performed By: #### H EMOG, FEIBC ####[facility] [place] [address] Iron AND TIBCon 05-15-2018 Saturation 13 % Low 15-50 [facility] Comment on above: Performed By: #### H EMOG, FEIBC ####[facility] [place] [address] Total Iron Binding Cap. 269 ug/dL Normal 261-497 [facility] Comment on above: Performed By: #### H EMOG, FEIBC ####[facility] [place] [address] Iron, Total 35 ug/dL Low 37-170 [facility] Comment on above: Performed By: #### H EMOG, FEIBC ####[address] [place] [address] Vital Signs Date Time Vital Sign Value Performing Clinician Amando orellana 03-25-2025 19:04-0400 Body temperature 98.4 [degF] Chey Kumar MD [facility] 03-25-2025 19:04-0400 Diastolic blood pressure 74 mm[Hg] Chey Kumar MD [facility] 03-25-2025 19:04-0400 Heart rate 83 /min Chey Kumar MD [facility] 03-25-2025 19:04-0400 Respiratory rate 18 /min Chey Kumar MD [facility] 03-25-2025 19:04-0400 SaO2% (BldA) [Mass fraction] 97 % Chey Kumar MD [facility] 03-25-2025 19:04-0400 Systolic blood pressure 125 mm[Hg] Chey Kumar MD [facility] 03-25-2025 16:46-0400 Body height 142.01 cm Chey Kumar MD [facility] 03-25-2025 16:46-0400 Body mass index (BMI) [Ratio] 34 kg/m2 Chey Kumar MD [facility] 03-25-2025 16:46-0400 Body weight 68.5 kg Chey Kumar MD [facility] 02-18-2025 13:04-0400 Body height 142.24 cm Chey Kumar MD [facility] 02-15-2025 17:53-0400 Body height 142.24 cm Chey Kumar MD [facility] 02-15-2025 17:51-0400 Body height 142.24 cm Chey Kumar MD [facility] 02-15-2025 17:27-0400 Body height 142.24 cm Chey Kumar MD [facility] 02-07-2025 11:01-0400 Body temperature 97.11 [degF] Narciso Sherman PA-C Work Phone: [facility] 02-07-2025 11:01-0400 Diastolic blood pressure 72 mm[Hg] Narciso Sherman PA-C Work Phone: [facility] 02-07-2025 11:01-0400 Heart rate 102 /min Narciso Sherman PA-C Work Phone: [facility] 02-07-2025 11:01-0400 Respiratory rate 14 /min Narciso Sherman PA-C Work Phone: [facility] 02-07-2025 11:01-0400 SaO2% (BldA) [Mass fraction] 96 % Narciso Sherman PA-C Work Phone: [facility] 02-07-2025 11:01-0400 Systolic blood pressure 110 mm[Hg] Narciso Sherman PA-C Work Phone: [facility] 09-16-2024 11:44-0500 Diastolic blood pressure 70 mm[Hg] Sahra Guy MD Work Phone: [facility] 09-16-2024 11:44-0500 Systolic blood pressure 112 mm[Hg] Sahra Guy MD Work Phone: [facility] 09-16-2024 11:28-0500 Heart rate 76 /min Sahra Guy MD Work Phone: [facility] 08-23-2024 10:39-0500 Diastolic blood pressure 74 mm[Hg] Sahra Guy MD Work Phone: [facility] 08-23-2024 10:39-0500 Systolic blood pressure 116 mm[Hg] Sahra Guy MD Work Phone: [facility] 08-23-2024 10:07-0500 Body height 142.2 cm Sahra Guy MD Work Phone: [facility] 08-23-2024 10:07-0500 Heart rate 60 /min Sahra Guy MD Work Phone: [facility] 08-23-2024 10:07-0500 SaO2% (BldA) [Mass fraction] 95 % Sahra Guy MD Work Phone: [facility] 08-11-2024 13:37-0500 Diastolic blood pressure 77 mm[Hg] Leonid Leal EQUIPMENT SERVICE ASSOCIATE.PHARMACIST HELPER Work Phone: [facility] 08-11-2024 13:37-0500 Heart rate 66 /min Leonid Leal EQUIPMENT SERVICE ASSOCIATE.CN P Work Phone: [facility] 08-11-2024 13:37-0500 SaO2% (BldA) [Mass fraction] 98 % Leonid Leal EQUIPMENT SERVICE ASSOCIATE.PHARMACIST HELPER Work Phone: [facility] 08-11-2024 13:37-0500 Systolic blood pressure 146 mm[Hg] Leonid Leal EQUIPMENT SERVICE ASSOCIATE.PHARMACIST HELPER Work Phone: [facility] 12-10-2023 09:18-0400 Body height 142.2 cm Sahra Guy MD Work Phone: [facility] 12-10-2023 09:18-0400 Diastolic blood pressure 81 mm[Hg] Sahra Guy MD Work Phone: [facility] 12-10-2023 09:18-0400 Heart rate 68 /min Sahra Guy MD Work Phone: [facility] 12-10-2023 09:18-0400 SaO2% (BldA) [Mass fraction] 98 % Sahra Guy MD Work Phone: [facility] 12-10-2023 09:18-0400 Systolic blood pressure 156 mm[Hg] Sahra Guy MD Work Phone: [facility] 04-03-2023 13:58-0400 Body height 139.7 cm Ken Trent MD Work Phone: [facility] 04-03-2023 13:58-0400 Diastolic blood pressure 90 mm[Hg] Ken Trent MD Work Phone: [facility] 04-03-2023 13:58-0400 Heart rate 69 /min Ken Trent MD Work Phone: [facility] 04-03-2023 13:58-0400 Systolic blood pressure 137 mm[Hg] Ken Trent MD Work Phone: [facility] 03-10-2023 09:59-0400 Body height 142.2 cm Sahra Guy MD Work Phone: [facility] 03-10-2023 09:59-0400 Diastolic blood pressure 67 mm[Hg] Sahra Guy MD Work Phone: [facility] 03-10-2023 09:59-0400 Heart rate 70 /min Sahra Guy MD Work Phone: [facility] 03-10-2023 09:59-0400 SaO2% (BldA) [Mass fraction] 96 % Sahra Guy MD Work Phone: [facility] 03-10-2023 09:59-0400 Systolic blood pressure 146 mm[Hg] Sahra Guy MD Work Phone: [facility] 10-29-2021 10:36-0400 Diastolic blood pressure 60 mm[Hg] Sahra Guy MD Work Phone: [facility] 10-29-2021 10:36-0400 Systolic blood pressure 120 mm[Hg] Sahra Guy MD Work Phone: [facility] 10-29-2021 09:52-0400 Heart rate 71 /min Sahra Guy MD Work Phone: [facility] Encounters Encounter Date Encounter Type Care Provider Facility Start: 05-09-2025 ambulatory Efcarmenongbe Stacy Facili ty:[facility] Start: 05-03-2025 ambulatory Efgarfield Menge OLS Fa cility:[facility] Start: 04-11-2025 ambulatory Efewongbe Oleghe OLS Fa cility:[facility] Start: 04-05-2025 ambulatory Efewongbe Yusrae OLS Fa cility:[facility] Start: 04-05-2025 Registered Referred Chey Kumar MD -[facility] Start: 03-30-2025 End: 03-30-[address] Chepe Melo MD -[facility] Start: 03-30-2025 End: 03-30-2025 ambulatory Chey Kumar MD -[facility] Start: 03-25-2025 End: 03-25-2025 Emergency department patient visit Chey Kumar MD -Emergency Department Work Phone: Start: 03-24-2025 End: 03-24-2025 [facility] Start: 03-24-2025 End: 03-24-2025 Patient encounter procedure Roxanne Padilla [facility] Work Phone: Start: 03-22-2025 End: 03-22-2025 Telephone encounter Sahra Guy MD Work Phone: [facility] Comment on above: FYI-No Action Needed Start: 03-20-2025 End: 03-20-2025 ambulatory Chey Kumar MD [facility] Start: 03-20-2025 End: 03-20-2025 Patient encounter procedure Roxanne Padilla NP-[facility] Work Phone: Start: 03-07-2025 End: 03-07-2025 [facility]: Start: 03-07-2025 End: 03-07-2025 [facility] Start: 03-07-2025 [facility] Start: 02-28-2025 ambulatory Chey Kumar OLS Fa cility:[facility] Start: 02-28-2025 [facility] Start: 02-21-2025 ambulatory Chey Kumar OLS Fa cility:[facility] Start: 02-21-2025 Reg[facility] Start: 02-14-2025 End: 02-14-2025 ambulatory Chey Kumar MD -[facility] Start: 02-14-2025 End: 02-14-[address] 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 Start: 02-07-2025 End: 02-07-2025 Patient encounter procedure Narciso Sherman PA-C Work Phone: Urology Comment on above: Urinary tract infect ion without hematuria, site unspecified (Primary Dx); Frequent urination; Burning with urination; Compression fracture of thoracic vertebra with routine healing, unspecified thoracic vertebral level, subsequent encounter; Screening for genitourinary condition Start: 02-07-2025 End: 02-07-2025 ambulatory SAHRA GUY Facility:[facility] Start: 02-07-2025 Registered Referred Chey Bell Start: 02-06-2025 End: 02-07-2025 Chart abstracting Narciso Sherman PA-C Work Phone: Urology Start: 01-31-2025 ambulatory Chey THOMAS Fa cility:[facility] Start: 01-31-2025 Registered Referred Chey Bell Start: 01-24-2025 End: 01-24-2025 Patient encounter procedure Roxanne Padilla [facility] Work Phone: Start: 01-24-2025 End: 01-24-2025 ambulatory Roxanne Padilla [facility] Start: 01-24-2025 Registered Referred Chey Bell Start: 01-19-2025 End: 01-19-2025 ambulatory Roxanne Padilla [facility] Start: 01-19-2025 End: 01-19-2025 Patient encounter procedure Roxanne Padilla [facility] Work Phone: Start: 01-17-2025 ambulatory Chey THOMAS Fa cility:[facility] Start: 01-17-2025 Registered Referred Chey Bell Start: 01-10-2025 End: 01-10-2025 Patient encounter procedure Roxanne Padilla [facility] Work Phone: Start: 01-10-2025 End: 01-10-2025 ambulatory Roxanne Padilla [facility] Start: 01-10-2025 Registered Referred Chey Bell Start: 01-09-2025 End: 02-18-2025 ambulatory [facility] Start: 01-09-2025 End: 02-18-2025 Patient encounter procedure Lionel Joiner MA [facility] Comment on above: Population Health Na vigation Outreach ([facility]) Start: 01-03-2025 ambulatory Chey THOMAS Fa cility:[facility] Start: 01-03-2025 Registered Referred Chey Bell Start: 12-28-2024 End: 12-28-2024 Patient encounter procedure Roxanne Gonzalezradha [facility] Work Phone: Start: 12-28-2024 End: 12-28-2024 ambulatory Roxanne Padilla [facility] Start: 12-28-2024 Registered Referred Chey Bell Start: 12-27-2024 ambulatory Chey THOMAS Fa cility:[facility] Start: 12-27-2024 Registered Referred Chey Bell Start: 12-22-2024 End: 12-22-2024 ambulatory Roxanne Padilla [facility] Start: 12-22-2024 End: 12-22-2024 Patient encounter procedure Roxanne Padilla [facility] Work Phone: Start: 12-20-2024 End: 12-20-[address] Chey Kumar MD [facility] Work Phone: Start: 12-20-2024 End: 12-20-2024 ambulatory Chey Kumar [facility] Start: 12-20-2024 Registered Referred Chey Bell Start: 12-12-2024 End: 12-19-2024 Evaluation and management of inpatient SAHRA GUY Facility:[facility] Start: 12-08-2024 End: 12-10-2024 ambulatory Sahra Guy MD Work Phone: [facility] Comment on above: nausea and barely ea ting Start: 12-08-2024 End: 12-09-2024 Telephone encounter Sahra Guy MD Work Phone: [facility] Comment on above: Insurance Authorizat ion Start: 12-07-2024 End: 12-08-2024 Telephone encounter Sahra Guy MD Work Phone: [facility] Comment on above: Medication Problem ( Lidocaine 5% is covered, not the 4%) Start: 12-02-2024 End: 12-08-2024 ambulatory Sahra Guy MD Work Phone: [facility] Comment on above: Nurse Triage Call; P atient Update Start: 11-30-2024 End: 11-30-2024 ambulatory Sahra Guy MD Work Phone: Pharm [facility] Comment on above: Allied Health Visit (Medication Adherence Outreach ) Start: 10-24-2024 End: 10-24-2024 Telephone encounter Sahra Guy MD Work Phone: Family Practice Comment on above: Received Outside Med ical Records ([facility] OT Evaluation performed no further treatment. 10/20/2024) Start: 10-19-2024 End: 10-19-2024 Telephone encounter Sahra Guy MD Work Phone: [facility] Comment on above: Orders ([facility]) Start: 10-12-2024 End: 10-12-2024 Telephone encounter Sahra Guy MD Work Phone: [facility] Comment on above: PT Eval Start: 10-11-2024 End: 10-11-2024 Telephone encounter Sahra Guy MD Work Phone: [facility] Comment on above: Orders Start: 10-06-2024 End: 11-12-2024 Telephone encounter Sahra Guy MD Work Phone: [facility] Comment on above: Patient Question (Sl ipped in shower) Start: 09-23-2024 End: 09-26-2024 ambulatory Sahra Gyu MD Work Phone: [facility] Comment on above: Nurse Triage Call; R eturn Call Request Start: 09-23-2024 End: 09-23-2024 Telephone encounter Sahra Guy MD Work Phone: [facility] Comment on above: Received Outside Med ical Records ([facility] Face to Face Encounter Documentation encounter 08/23/2024) Start: 09-16-2024 End: 09-16-2024 ambulatory SARHA GUY Facility:[facility] Start: 09-16-2024 End: 09-16-2024 Office outpatient visit 25 minutes Sahra Guy MD Work Phone: [facility] Comment on above: Falling episodes (Pr imary Dx); Acute left-sided low back pain with left-sided sciatica; Fall from motorized wheelchair, initial encounter; Post-polio syndrome; Neck pain, chronic; Chronic hand pain, unspecified laterality Start: 09-09-2024 End: 12-09-2024 Telephone encounter Sahra Guy MD Work Phone: [facility] Comment on above: Orders; Patient Upda te (Lab orders were faxed) Hyperglycemia, unspe cified (Primary Dx); Mixed hyperlipidemia Start: 09-09-2024 End: 09-09-2024 ambulatory SAHRA GUY [facility] Start: 09-02-2024 End: 09-02-2024 Telephone encounter Sahra Guy MD Work Phone: [facility] Comment on above: Results (Labs) Start: 09-01-2024 End: 09-06-2024 Telephone encounter Sahra Guy MD Work Phone: [facility] Comment on above: Office Notes Returning Patient's Call Start: 08-31-2024 End: 11-12-2024 Telephone encounter Sahra Guy MD Work Phone: [facility] Comment on above: Results (Lab tests) Start: 08-24-2024 End: 08-24-2024 Telephone encounter Sahra Guy MD Work Phone: [facility] Comment on above: Orders ([facility]) Start: 08-23-2024 End: 08-23-2024 ambulatory SAHRA GUY Facility:[facility] Start: 08-23-2024 End: 08-23-2024 Patient encounter procedure Sahra Guy MD Work Phone: 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); Post-polio syndrome; Hyperlipidemia, mixed; Hyperglycemia; Vitamin D deficiency; Essential hypertension; Primary osteoarthritis involving multiple joints; Abnormality of gait; Falling episodes Start: 08-22-2024 End: 08-22-2024 Telephone encounter Sahra Guy MD Work Phone: [facility] [place] Comment on above: Patient Update (At o ffice visit on 08/23/2024 please fill all Rx's that apply per patient [facility] mail order) Start: 08-15-2024 End: 08-17-2024 Telephone encounter Sahra Guy MD Work Phone: Family Practice Comment on above: Orders (PT and OT) Start: 08-11-2024 End: 08-11-2024 ambulatory Sahra Guy MD Work Phone: Family Practice Comment on above: Muscle Aches Start: 08-11-2024 End: 08-11-2024 Office outpatient visit 15 minutes Leonid Leal APRN.PHARMACIST HELPER Work Phone: Family Practice Comment on above: Acute left-sided low back pain with left-sided sciatica (Primary Dx) Start: 07-05-2024 End: 07-05-2024 Refill Sahra Guy MD Work Phone: Family Practice Comment on above: Refill Request Start: 06-23-2024 End: 06-23-2024 Telephone encounter Sahra Guy MD Work Phone: Family Practice Comment on above: Orders ([facility] [place] [facility] [place]) Start: 06-20-2024 End: 06-20-2024 Refill Sahra Guy MD Work Phone: Family Practice Comment on above: Refill Request Start: 06-02-2024 End: 06-03-2024 Telephone encounter Sahra Guy MD Work Phone: Family Practice Comment on above: Question Patient Question Start: 05-18-2024 End: 05-18-2024 Telephone encounter Sahra Guy MD Work Phone: Family Practice Comment on above: RSV vaccine Start: 04-06-2024 End: 04-06-2024 Refill Sahra Guy MD Work Phone: Family Practice Comment on above: Refill Request Start: 03-07-2024 Telephone encounter Sahra Guy MD Work Phone: [facility] Comment on above: Results Start: 03-03-2024 End: 06-02-2024 Transcribe Orders Leonid Roach EQUIPMENT SERVICE ASSOCIATE - PHARMACIST HELPER Work Phone: [facility] Comment on above: Hyperglycemia, unspe cified (Primary Dx); Mixed hyperlipidemia; Vitamin D deficiency, unspecified; Other specified disorders of bone density and structure, unspecified site Start: 02-26-2024 Telephone encounter Sahra Guy MD Work Phone: [facility] Comment on above: Orders (Labs fax to [place]) Start: 02-23-2024 Refill Sahra reed MD Work Phone: [facility] Comment on above: Refill Request Start: 01-25-2024 Refill Sahra reed MD Work Phone: [facility] Comment on above: Refill Request Start: 01-12-2024 Refill Sahra reed MD Work Phone: [facility] Comment on above: Refill Request Start: 12-10-2023 End: 12-10-2023 Patient encounter procedure Sahra Guy MD Work Phone: 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 Comment on above: Received Outside [facility] Records ([place] [facility] I Move in Assessment 11/25/2023); Patient Update Start: 07-13-2023 Refill Leonid Duggan PRN.CNP Work Phone: 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 Comment on above: Orders (OT referral request [place] [facility] ) Start: 03-11-2023 Refill Sahra reed MD Work Phone: [facility] Comment on above: Refill Request Start: 03-10-2023 End: 03-10-2023 Patient encounter procedure Sahra Guy MD Work Phone: 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 Comment on above: Forms ([employer] Clearance Form ) Start: 09-30-2022 Telephone encounter Sahra Guy MD Work Phone: [facility] Comment on above: medicaiton problem Start: 09-26-2022 Telephone encounter Sahra Guy MD Work Phone: [facility] Comment on above: Results Start: 09-17-2022 ambulatory Sahra reed MD Work Phone: [facility] Comment on above: Nurse Triage Call Start: 08-01-2022 Refill Sahra reed MD Work Phone: [facility] Comment on above: Refill Request Start: 07-14-2022 Telephone encounter Sahra Guy MD Work Phone: [facility] Comment on above: Received Outside Med ical Records (Health care provider certification of disability license plates. ) Start: 06-12-2022 End: 06-12-2022 ambulatory Leonid Roach POOJA.PHARMACIST HELPER Work Phone: [facility] Comment on above: COVID-19 (Primary Dx ) Start: 06-12-2022 End: 06-12-2022 Telemedicine consultation with patient Leonid Roach EQUIPMENT SERVICE ASSOCIATE.PHARMACIST HELPER Work Phone: [facility] Start: 06-11-2022 End: 06-11-2022 ambulatory Nurse Triage [facility] Work Phone: Nurse Phone Triage Comment on above: Covid Positive Start: 06-11-2022 Telephone encounter aShra Guy MD Work Phone: [facility] Comment on above: Covid Positive (/) Start: 04-09-2022 Telephone encounter Sahra Guy MD Work Phone: [facility] Comment on above: Results (Labs ) Start: 04-03-2022 Refill Sahra reed MD Work Phone: [facility] Comment on above: Med Change Request Start: 03-25-2022 Refill Sahra reed MD Work Phone: [facility] Comment on above: Refill Request Start: 03-19-2022 Telephone encounter Sahra Guy MD Work Phone: Family Practice Comment on above: Orders (Thyroid/); P atient Question (Draw labs at the office/) Start: 12-19-2021 Telephone encounter Sahra Guy MD Work Phone: Family Practice Comment on above: Request for PCP sign off (from [facility]) Start: 12-13-2021 ambulatory Nopcp (Historical) [facility] Start: 12-04-2021 Telephone encounter Sahra Guy MD Work Phone: Family Practice Comment on above: Orders ([facility] 11/05/2021 - 11/25/2021) Home Care Start: 12-02-2021 Telephone encounter Sahra Guy MD Work Phone: [facility] Comment on above: Patient Update (Upda te and orders signed and faxed to [facility]. ) Start: 11-28-2021 Telephone encounter Sahra Guy MD Work Phone: Family Medicine Comment on above: [facility] Discharge summary 11/28/2021) Start: 11-21-2021 Telephone encounter Sahra Guy MD Work Phone: Family Practice Comment on above: Orders ([facility] 11/21/2021) Start: 11-20-2021 Telephone encounter Sahra Guy MD Work Phone: [facility] [place] Comment on above: Patient Update Start: 11-05-2021 Telephone encounter Sahra Guy MD Work Phone: Family Practice Comment on above: Patient Update Start: 10-31-2021 Telephone encounter Leonid rutledge EQUIPMENT SERVICE ASSOCIATE.PHARMACIST HELPER Work Phone: Family Practice Comment on above: Results Start: 10-29-2021 End: 10-29-2021 Patient encounter procedure Sahra Guy MD Work Phone: Family Practice Comment on above: Poliomyelitis osteop athy of [...] End: 09-07-2018 Evaluation and management of inpatient [facility] Facility:[facility] Start: 08-05-2018 Patient encounter procedure UNKNOWN PROVIDER [facility] Start: 05-15-2018 Patient encounter procedure UNKNOWN PROVIDER [facility] Start: 10-03-2017 Patient encounter procedure UNKNOWN PROVIDER [facility] Procedures Date Procedure Procedure Detail Performing Clinician Start: 04-05-2025 Vitamin D, 25-hydrox y measurement Chey Kumar MD Comment on above: Vitamin D StatusDefi ciency: <20 ng/mL (50nmol/L)Insufficiency: 20-30 ng/mL (50-75 nmol/L)Sufficiency: 30-100 ng/mL (75-250 nmol/L)Toxicity: >100 ng/mL (>250 nmol/L) Start: 03-25-2025 Plain X-ray abdomen Gary Kumar MD Start: 02-28-2025 Total iron binding capacity measurement [...] reagent auto microscopy Chey Kumar MD Start: 12-28-2024 Urine culture Chey Kumar [...] panel - S daniella or Plasma Leonid Patel EQUIPMENT SERVICE ASSOCIATE - PHARMACIST HELPER Work Phone: Start: 12-10-2023 Adult depression scr eening assessment Sahra Guy MD Work Phone: Plan of Treatment Date Care Activity Detail Author Start: 09-09-2029 Lipid panel Lipid Panel [facility] Start: 03-03-2029 Lipid panel Lipid Panel [facility] Start: 12-20-2027 Diabetes Screening Diabetes Screening [facility] Start: 12-09-2027 Diabetes Screening Diabetes Screening [facility] Start: 09-09-2027 Diabetes Screening Diabetes Screening [facility] Start: 08-25-2027 Diabetes Screening Diabetes Screening [facility] Start: 03-03-2027 Diabetes Screening Diabetes Screening [facility] Start: 09-25-2025 DIABETES SCREEN DIABETES SCREEN [facility] Start: 09-25-2025 Diabetes Screening Diabetes Screening [facility] Start: 09-22-2025 Medicare Annual Wellness (AWV) Medicare Annual Wellness (AWV) [facility] Start: 04-08-2025 DIABETES SCREEN DIABETES SCREEN [facility] Start: 04-03-2025 Influenza vaccination [facility] Start: 03-30-2025 L/S Spine Min 4 Views L/S Spine Min 4 Views [facility] Start: 03-30-2025 XR Spine Lumbar and Sacrum GE 4 Views [facility] Start: 03-30-2025 X-ray of lumbar spine, two or three views Lumbar Spine 2 or 3 Views [facility] Start: 03-30-2025 XR Lumbar spine 2 or 3 Views [facility] Start: 03-25-2025 [facility] Start: 01-31-2025 End: 01-31-2025 Patient encounter procedure 01/31/2025 2:00 PM EDT Office Visit Urology [address] [place] [address] Nataliya Dominguez MD [address] [place] [id number] Acute urinary retention [R33.8] Urology Comment on above: Acute urinary retention [R33.8] Start: 01-10-2025 End: 01-10-2025 Patient encounter procedure 01/10/2025 8:00 AM EDT Office Visit Gastroenterology [address] [place] [address] Kinjal Hernandes APRN.PHARMACIST HELPER [address] [place] [address] constipation Gastroenterology Comment on above: constipation Start: 01-02-2025 End: 01-02-2025 Patient encounter procedure 01/02/2025 10:30 AM EDT Office Visit Neurology [address] [place], [place] [id number] Timothy Shine MD [address] [place], [place] [id number] 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 Start: 12-14-2024 End: 12-14-2024 Patient encounter procedure 12/14/2024 3:00 PM EDT Office Visit [facility] [address] [address] Harinder Kiran PA-C [address] [place] [address] Acute left-sided low back pain with left-sided sciatica [M54.42] [facility] Comment on above: Acute left-sided low back pain with left -sided sciatica [M54.42] Start: 12-09-2024 Anxiety Screening Anxiety Screening [facility] Start: 12-09-2024 Depression Screening Depression Screening [facility] Start: 11-15-2024 Covid-19 Vaccine () Covid-19 Vaccine () [facility] Start: 10-29-2024 DIABETES SCREEN DIABETES SCREEN [facility] Start: 09-15-2024 End: 09-15-2024 Patient encounter procedure 09/15/2024 9:20 AM EST Office Visit Family Practice [address] [place] [address] [address] [place], [place] [address] Sahra Guy MD [address] [place] [address] [place] [address] follow up Family Practice Comment on above: follow up Start: 09-13-2024 End: 09-13-2024 Patient encounter procedure 09/13/2024 10:20 AM EST Office Visit Family Practice [address] [place] [address] [place] [address] Sahra Guy MD [address] [place] [address] [place] [address] follow up Family Practice Comment on above: follow up Start: 08-23-2024 End: 11-22-2024 Comprehensive metabolic 2000 panel - Serum or Plasma COMPREHENSIVE METABOLIC PANEL Lab Routine Hyperglycemia Expected: 08/23/2024, Expires: 11/22/2024 [facility] Work Phone: Comment on above: Expected: 08/23/2024, Expires: Start: 08-23-2024 End: 11-22-2024 Hemoglobin A1c in Blood HEMOGLOBIN A1C Lab Routine Hyperglycemia Expected: 08/23/2024, Expires: 11/22/2024 [facility] Comment on above: Expected: 08/23/2024, Expires: Start: 08-23-2024 End: 11-22-2024 Lipid 1996 panel - Serum or Plasma LIPID PANEL BASIC Lab Routine Hyperlipidemia, mixed Expected: 08/23/2024, Expires: 11/22/2024 [facility] Comment on above: Expected: 08/23/2024, Expires: Start: 08-23-2024 End: 08-23-2024 Patient encounter procedure 08/23/2024 10:00 AM EST Office Visit Family Practice [address] [place], [place] [id number] Sahra Guy MD [address] [place], [place] [id number] Medicare Wellness [facility] Comment on above: Medicare Wellness Start: 08-03-2024 Advance Directive Discussion Advance Directive Discussion [facility] Start: 04-03-2024 Covid-19 Vaccine () Covid-19 Vaccine () [facility] Start: 04-03-2024 Covid-19 Vaccine () Covid-19 Vaccine () [facility] Start: 04-03-2024 Influenza vaccination [facility] Start: 02-23-2024 End: 05-24-2024 25-hydroxyvitamin D3 [Mass/volume] in Serum or Plasma VITAMIN D 25 HYDROXY Lab Routine Vitamin D deficiency Expected: 02/23/2024, Expires: 05/24/2024 [facility] Comment on above: Expected: 02/23/2024, Expires: Start: 02-23-2024 End: 05-24-2024 CBC panel - Blood by Automated count COMPLETE BLOOD COUNT Lab Routine Osteopenia, unspecified location Expected: 02/23/2024, Expires: 05/24/2024 [facility] Comment on above: Expected: 02/23/2024, Expires: Start: 02-23-2024 End: 05-24-2024 Comprehensive metabolic 2000 panel - Serum or Plasma COMPREHENSIVE METABOLIC PANEL Lab Routine Hyperglycemia Hyperlipidemia, mixed Expected: 02/23/2024, Expires: 05/24/2024 [facility] Comment on above: Expected: 02/23/2024, Expires: Start: 02-23-2024 End: 05-24-2024 Hemoglobin A1c in Blood HEMOGLOBIN A1C Lab Routine Hyperglycemia Expected: 02/23/2024, Expires: 05/24/2024 [facility] Work Phone: Comment on above: Expected: 02/23/2024, Expires: 4 Start: 02-23-2024 End: 05-24-2024 Lipid 1996 panel - Serum or Plasma LIPID PANEL BASIC Lab Routine Hyperlipidemia, mixed Expected: 02/23/2024, Expires: 05/24/2024 [facility] Comment on above: Expected: 02/23/2024, Expires: 4 Start: 10-04-2023 Covid-19 Vaccine () Covid-19 Vaccine () [facility] Start: 09-25-2023 Urine microalbumin profile [facility] Comment on above: Postponed from 03/11/2014 (Declined at t his time) Start: 08-30-2023 DIABETES SCREEN DIABETES SCREEN [facility] Start: 08-03-2023 Advance Directive Discussion Advance Directive Discussion [facility] Start: 08-03-2023 Behavioral Health Screening Behavioral Health Screening [facility] Start: 04-03-2023 Covid-19 Vaccine () Covid-19 Vaccine () [facility] Start: 04-03-2023 End: 06-03-2023 Creatine kinase [Enzymatic activity/volume] in Serum or Plasma [facility] Work Phone: Comment on above: Expected: 04/03/2023, Expires: 3 Start: 04-03-2023 Influenza vaccination [facility] Start: 09-29-2022 COVID-19 VACCINE (6 - Pfizer series) COVID-19 VACCINE (6 - Pfizer series) [facility] Start: 08-03-2022 ADVANCE DIRECTIVE DISCUSSION ADVANCE DIRECTIVE DISCUSSION [facility] Start: 08-03-2022 DEPRESSION ASSESSMENT DEPRESSION ASSESSMENT [facility] Start: 04-03-2022 Influenza vaccination INFLUENZA (#1) [facility] Start: 10-02-2021 COVID-19 VACCINE (4 - Booster for Pfizer series) COVID-19 VACCINE (4 - Booster for Pfizer series) [facility] Start: 08-03-2021 ADVANCE DIRECTIVE DISCUSSION ADVANCE DIRECTIVE DISCUSSION [facility] Start: 08-03-2021 DEPRESSION ASSESSMENT DEPRESSION ASSESSMENT [facility] Start: 03-11-2014 DTaP/Tdap/Td Vaccines (1 - Tdap) DTaP/Tdap/Td Vaccines (1 - Tdap) [facility] Start: 03-11-2014 Urine microalbumin profile [facility] Start: 2013 RSV Immunization for Adults (1 - 1-dose 75+ series) RSV Immunization for Adults (1 - 1-dose 75+ series) [facility] Start: 2013 RSV Vaccine (1 - 1-dose 75+ series) RSV Vaccine (1 - 1-dose 75+ series) [facility] Start: 1998 RSV Vaccine (1 - 1-dose 60+ series) RSV Vaccine (1 - 1-dose 60+ series) [facility] Start: 1950 Depression Screening Depression Screening [facility] Start: 1940 Medicare Annual Wellness (AWV) Medicare Annual Wellness (AWV) [facility] Start: 1940 Screening for osteoporosis Bone Density Scan [facility] Bacteria identified in Urine by Culture BACTERIAL CULTURE, URINE Microbiology Routine Burning with urination 02/07/2025 11:40 AM EDT [facility] Work Phone: CBC panel - Blood by Automated count CBC [facility] Today History of iron deficiency anemia Ordered: 10/29/2021 [facility] Work Phone: Comment on above: Ordered: 10/29/2021 Comprehensive metabolic 2000 panel - Serum or Plasma COMP METABOLIC PANEL [facility] Today Poliomyelitis osteopathy of multiple sites (HCC) Ordered: 10/29/2021 [facility] Work Phone: Comment on above: Ordered: 10/29/2021 IRON + TIBC IRON + TIBC [facility] History of iron deficiency anemia Ordered: 10/29/2021 [facility] Work Phone: Comment on above: Ordered: 10/29/2021 LIPID PANEL BASIC LIPID PANEL BA SIC [facility] Today Screening for lipid disorders Ordered: 10/29/2021 [facility] Work Phone: Comment on above: Ordered: 10/29/2021 OUTSIDE PROCEDURE SCAN OUTSIDE PROCEDURE SCAN Procedures Ordered: 09/09/2024 [facility] Comment on above: Ordered: 09/09/2024 Patient Education ED Constipatio n (Adult) ED Fecal Impaction, Treated [facility] Work Phone: End: 11-28-2022 XR KNEE LIMITED 2V AP/LAT RIGHT XR KNEE LIMITED 2V AP/LAT RIGHT Radiology Routine Acute pain of right knee 1 Occurrences starting 10/29/2021 until 11/28/2022 [facility] Work Phone: Comment on above: 1 Occurrences starting 10/29/2021 until 11/28/2022 End: 10-26-2025 XR Lumbar spine 3 Views XR LUMBAR GENERAL 3V AP/LAT/L5-S1 Radiology Routine Acute left-sided low back pain, unspecified whether sciatica present Left hip pain 1 Occurrences starting 09/26/2024 until 10/26/2025 [facility] Comment on above: 1 Occurrences starting 09/26/2024 until 10/26/2025 End: 10-26-2025 XR Pelvis and Hip - left AP and Lateral frog XR HIP GENERAL 3V PELV/AP/LAT LEFT Radiology Routine Left hip pain 1 Occurrences starting 09/26/2024 until 10/26/2025 [facility] Work Phone: Comment on above: 1 Occurrences starting 09/26/2024 until 10/26/2025 [facility] Immunizations Immunization Date Immunization Notes Care Provider Merna ortega 05-02-2024 influenza virus vacc ine, unspecified formulation Narciso Sherman PA-C Work Phone: [facility] 04-22-2023 influenza virus vacc ine, unspecified formulation Sahra Guy MD Work Phone: [facility] 04-08-2022 influenza, high-dose , quadrivalent vaccine (FLUZONE HIGH DOSE QUADRIVALENT) Sahra Guy MD Work Phone: [facility] 04-08-2022 influenza virus vacc ine, unspecified formulation Jeannette Melgar PT [facility] 05-03-2021 influenza, high-dose , quadrivalent vaccine (FLUZONE HIGH DOSE QUADRIVALENT) Sahra Guy MD Work Phone: [facility] 06-21-2020 zoster vaccine recombinant Sahra Guy MD Work Phone: [facility] 04-25-2020 influenza, high-dose , quadrivalent vaccine (FLUZONE HIGH DOSE QUADRIVALENT) Sahra Guy MD Work Phone: [facility] 04-19-2020 zoster vaccine recombinant Sahra Guy MD Work Phone: [facility] 05-17-2019 influenza, high dose seasonal, preservative-free Sahra Guy MD Work Phone: [facility] 05-20-2018 influenza, high dose seasonal, preservative-free Sahra Guy MD Work Phone: [facility] 05-20-2018 pneumococcal polysaccharide vaccine, 23 valent Sahra Guy MD Work Phone: [facility] 05-25-2017 influenza, high dose seasonal, preservative-free Sahra Guy MD Work Phone: [facility] 05-14-2017 influenza, injectabl e, quadrivalent, contains preservative Sahra Guy MD Work Phone: [facility] 05-24-2015 influenza, injectable,quadrivalent, preservative free, pediatric Sahra Guy MD Work Phone: [facility] 12-13-2014 pneumococcal conjuga te vaccine, 13 valent Sahra Guy MD Work Phone: [facility] 03-10-2014 TD(adult) unspecifie d formulation Sahra Guy MD Work Phone: [facility] 03-10-2014 tetanus and diphther ia toxoids, adsorbed, preservative free, for adult use (2 Lf of tetanus toxoid and 2 Lf of diphtheria toxoid) Chey Kumar MD [facility] 05-04-2012 influenza virus vacc ine, unspecified formulation Sahra Guy MD Work Phone: [facility] 05-27-2011 influenza virus vacc ine, unspecified formulation Sahra Guy MD Work Phone: [facility] Work Phone: 05-27-2011 zoster vaccine, live Sahra Guy MD Work Phone: [facility] Work Phone: 05-15-2010 influenza virus vacc ine, unspecified formulation Sahra Guy MD Work Phone: [facility] 04-30-2009 influenza virus vacc ine, unspecified formulation Sahra Guy MD Work Phone: [facility] Work Phone: 05-10-2008 influenza virus vacc ine, unspecified formulation Sahra Guy MD Work Phone: [facility] Work Phone: 06-08-2007 influenza virus vacc ine, whole virus Sahra Guy MD Work Phone: [facility] 06-03-2006 influenza virus vacc ine, unspecified formulation Sahra Guy MD Work Phone: [facility] Work Phone: 07-30-2005 tetanus and diphther ia toxoids, adsorbed, preservative free, for adult use (2 Lf of tetanus toxoid and 2 Lf of diphtheria toxoid) Sahra Guy MD Work Phone: [facility] Work Phone: 07-31-2002 pneumococcal polysaccharide vaccine, 23 valent Sahra Guy MD Work Phone: [facility] Work Phone: Payers Date Payer Category Payer Self-pay 2024 Commercial Managed C are - PPO [employer] PPO [id number] 2024 Medicare (Managed Care) JHONATHAN MOODY [id number] 2024 Private Health Insurance [id number] 2023 Commercial Managed C are - O [facility] [id number] 2012 Private Health Insurance 2012 Private Health Insurance [facility] INDEMNITY GENERIC [id number] 2012-Present [phone] [address] [address] [place] [address] Indemnity [id number] 2011 Private Health Insurance [id number] 2001 Medicare 2001 Medicare MEDICARE MEDICAR E A AND B [id number] 2001-Present [phone] [address] [address] [place] [address] Medicare [id number] 2001 Medicare [id number] 1938 Unknown [id number] 2.16.840.1.658512.3.579.2. 8 1938 Unknown [id number] 2.16.840.1.087967.3.579.2. 8 1938 Unknown [id number] 2.16.840.1.297047.3.579.2. 8 1938 Unknown [id number] 2.16.840.1.905545.3.579.2. 278 Medicare [id number] Unknown [id number] 2.16.840.1.919841.3.579.2. 462 Unknown [id number] 2.16.840.1.683673.3.579.2. 462 Unknown [id number] 2.16.840.1.899009.3.579.2. 462 Unknown [id number] 2.16.840.1.151591.3.579.2. 462 Unknown [id number] 2.16.840.1.237242.3.579.2. 462 Unknown [id number] 2.16.840.1.549056.3.579.2. 462 Unknown [id number] 2.16.840.1.676072.3.579.2. 462 Unknown [id number] 2.16.840.1.207318.3.579.2. 462 Unknown [id number] 2.16.840.1.473145.3.579.2. 462 Unknown [id number] 2.16.840.1.234456.3.579.2. 462 Unknown [id number] 2.16.840.1.271583.3.579.2. 462 Unknown [id number] 2.16.840.1.615758.3.579.2. 462 Unknown [id number] 2.16.840.1.904235.3.579.2. 462 Unknown [id number] 2.16.840.1.888365.3.579.2. 462 Unknown [id number] 2.16.840.1.830338.3.579.2. 462 Unknown [id number] 2.16.840.1.434937.3.579.2. 462 Unknown [id number] 2.16840.1.854827.3.579.2. 462 Unknown [id number] 2.16.840.1.057896.3.579.2. 462 Unknown [id number] 2.16840.1.478922.3.579.2. 462 Unknown [id number] 2.16840.1.499004.3.579.2. 462 Unknown [id number] 2.16840.1.769892.3.579.2. 462 Unknown [id number] 2.16840.1.415380.3.579.2. 462 Unknown [id number] 2.16.840.1.627699.3.579.2. 462 Unknown [id number] 2.16.840.1.310376.3.579.2. 462 Unknown [id number] 2.16.840.1.766021.3.579.2. 462 Unknown [id number] 2.16.840.1.638847.3.579.2. 462 Unknown [id number] 2.16.840.1.646290.3.579.2. 462 Unknown [id number] 2.16.840.1.828845.3.579.2. 462 Unknown [id number] 2.16.840.1.846511.3.579.2. 462 Unknown [id number] 2.16.840.1.413070.3.579.2. 462 Unknown [id number] 2.16.840.1.629072.3.579.2. 462 Unknown [id number] 2.16.840.1.665901.3.579.2. 462 Social History Date Type Detail Facility Start: 02-20-2016 End: 04-08-2022 Tobacco smoking status NHIS Never smoked tobacco [facility] Work Phone: Start: 02-20-2016 End: 04-08-2022 Tobacco use and exposure Smokeless tobacco non-user [facility] Work Phone: Start: 10-29-2021 End: 02-07-2025 Alcohol intake Current drinker of alcohol (finding) [facility] Start: 02-15-2025 History SDOH Alcohol Comment [facility] Start: 02-20-2016 End: 04-08-2022 Tobacco Comment second hand smoke exposure. [facility] Start: 1940 Sex Assigned At Not on file C [facility] Start: 10-19-2021 End: 04-08-2022 Exposure to SARS-CoV-2 (event) Not sure [facility] History of tobacco use Passive smoker [facility] Work Phone: Start: 06-01-2022 End: 06-11-2022 Exposure to SARS-CoV-2 (event) Yes [facility] Start: 03-10-2023 End: 01-31-2025 History of Social function [facility] Work Phone: Start: 03-10-2023 End: 01-31-2025 Tobacco use panel [facility] Work Phone: Start: 07-04-2012 Adult Depression Screening Assessment 0 [facility] Work Phone: Start: 06-14-2014 End: 03-25-2025 Tobacco smoking status NHIS Tobacco smoking consumption unknown [facility] Start: 03-03-2022 Sex Female (finding) [facility] Has the [employer], [employer], [employer], or water company threatened to shut off services in your home in past 12Mo No [facility] (I/We) worried wheth er (my/our) food would run out before (I/we) got money to buy more. Never true [facility] Start: 02-15-2025 Drugs Drugs [facility] Start: 02-15-2025 Lives Lives [facility] Start: 02-15-2025 Tobacco Use Tobacco Use [facility] Start: 1940 Sex Assigned At Female [facility] Functional Status Date Assessment Result Facility 12-19-2024 Are you deaf, or do you have serious difficulty hearing No 12/19/2024 3:09 PM Theresa Gonzales, HILDA No [facility] 12-19-2024 Are you blind, or do you have serious difficulty seeing, even when wearing glasses No 12/19/2024 3:09 PM Theresa Gonzales, HILDA No [facility] 12-19-2024 Do you have serious difficulty walking or climbing stairs Yes 12/19/2024 3:09 PM Theresa Gonzales, HILDA Yes [facility] 12-19-2024 Do you have difficul ty dressing or bathing Yes 12/19/2024 3:09 PM Theresa Gonzales, HILDA Yes [facility] 12-19-2024 Because of a physica l, mental, or emotional condition, do you have difficulty doing errands alone such as visiting a physician's office or shopping Yes 12/19/2024 3:09 PM Theresa Gonzales, HILDA Yes [facility] 07-30-2018 Are you deaf, or do you have serious difficulty hearing No 07/30/2018 5:50 PM Miranda Castro, HILDA No [facility] 07-30-2018 Are you blind, or do you have serious difficulty seeing, even when wearing glasses No 07/30/2018 5:50 PM Miranda Castro, HILDA No [facility] 07-30-2018 Do you have serious difficulty walking or climbing stairs Yes 07/30/2018 5:50 PM Miranda Castro, HILDA Yes [facility] 07-30-2018 Do you have difficul ty dressing or bathing No 07/30/2018 5:50 PM Miranda Castro, HILDA No [facility] 07-30-2018 Because of a physica l, mental, or emotional condition, do you have difficulty doing errands alone such as visiting a physician's office or shopping No 07/30/2018 5:50 PM Miranda Castro RN No [facility] Mental Status Date Assessment Result Facility 12-19-2024 Because of a physica l, mental, or emotional condition, do you have serious difficulty concentrating, remembering, or making decisions Yes 12/19/2024 3:09 PM EDT Theresa Gonzales RN Yes [facility] 07-30-2018 Because of a physica l, mental, or emotional condition, do you have serious difficulty concentrating, remembering, or making decisions No 07/30/2018 5:50 PM Miranda Castro RN No [facility] Clinical Notes 08-25-2018 to 03-30-2025 Note Date & Type Note Facility 03-30-2025 Evaluation note Diagnosis Onset Date Resolution Compression fracture of T11 vertebra acute March 30 1:26pm 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 Chey Kumar MD Status:R EG ER Location: ED HPI HPI - GI History of Present Illness Chief Complaint: Constipation Narrative Narrative: 84-year-old female presents from [facility] with constipation for the last week or longer. She relates history that she is bed ridden and is taking oxycodone for 2 fractured vertebrae. She usually sits on the bedpan or has bowel movements in her briefs. She states for the last week she has not had a bowel movement or maybe only small hard stool. She is taking oxycodone for pain. Over the lastfew days she is experienced nausea and vomiting as well. No fevers or chills. She states she feels like she has to have a bowel movementand when she has her the pain it feels like she has to have a bowel movement butis unable to do so. [facility] Medical History History of fractured vertebra Polio Home Medications ?Medication ?Instructions ?Recorded ?Last Taken ?Type B Complete 1 tab PO DAILY 03/10/14 Unkn own History Prednisol 1% 1 drp DAILY PRN 03/10/14 Unk nown History calcium 600 mg (as 1 ea PO BID 03/10/14 Unknown History carbonate)-vitamin D3 10 mcg (400 unit) tablet (Calcium 600 + D(3)) ciclopirox 0.77 % topical gel g TP BID 03/10/14 Unknow n History (Loprox) ergocalciferol (vitamin D2) 50 mcg 50,000 unit PO QWEE K 03/10/14 Unknown History (2,000 unit) tablet fluoxetine 20 mg tablet (Sarafem) 20 mg PO DAILY 03/10 Unknown History metronidazole 0.75 % (37.5 mg/5 0 g vaginal BID Unknown History gram) vaginal gel (Vandazole) nystatin-triamcinolone 100,000 0 g TP BID 03/10/14 Unk nown History unit/g-0.1 % topical cream omeprazole 20 mg capsule,delayed 20 mg PO DAILY Unknown History release oxybutynin chloride 5 mg tablet 10 mg PO DAILY 4 Unknown History timolol maleate 0.5 % eye drops 1 drp DAILY 03/10/14 U nknown History travoprost 0.004 % eye drops 1 drp DAILY 03/10/14 Unkn own History (Travatan Z) oxycodone 5 mg tablet 5 mg PO BID pain 30 days #60 tabs 03/01/25 Unknown Rx oxycodone 5 mg tablet 5 mg PO Q6H PRN pain 30 days #120 03/07/25 Unknown Rx tabs Allergy/AdvReac Type Severity Reaction Status Date / Time cephalexin monohydrate (From AdvReac Diarrhea Verified 03/10/14 18:10 Keflex) BLOOD THINNERS AdvReac Other Uncoded 03/10/14 18:10 Social History Smoking Status: Unknown if ever smoked ROS ROS ED ROS Narrative Review of systems positive for diffuse abdominal pain and constipation. Few days ago had nausea andvomiting. No fevers or chills. There are no exacerbating or alleviating factors. EXAM Physical Exam Narrative Exam Narrative: Afebrile. Vital signs noted. Nontoxic-appearing. Cardiovascular examination reveals regular rate and rhythm with intermittent tachycardia. Lungs clear to auscultation bilaterally. Abdomen soft with minimal diffuse tenderness with positive bowel sounds. 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 Const Vital Signs: 03/25/25 16:46 03/25/25 16:57 Temperature 98.5 F Temperature Source Oral Pulse Rate 120 H Respiratory Rate 18 Blood Pressure 127/67 H Blood Pressure Mean 87 Pulse Ox 96 Oxygen Delivery Method Room Air MDM MDM MDM Narrative Medical decision making narrative: Differential diagnosis includes but not limited to constipation versus fecal impaction versus bowelobstruction. I have lower suspicion for bowel obstruction. She still feels as if she has to have a bowel movement. X-rays will be obtained and chaperoned rectal examination performed. On my independentinterpretation of the x-rays of the abdomen, there is a nonobstructive pattern and probable fecal impaction. I reviewed the radiology report which confirms myindependent interpretation. Chaperoned rectal examination did show hard stool which was removed with digitaldisimpaction. Patient tolerated procedure well. The hard stool was evacuated from the rectum is much as the fingers length would allow. At this point in time, she states she is already on senna but takes MiraLAX sporadic ally. She was told to take it more consistently at least once to twice a day. I feel she can be discharged to follow-up. Return instructions to the emergency departmentwere reviewed. Disposition is discharged home in stable condition. History & Record Review Discussion w/independent historian: Patient Radiography Diagnostic Testing: Clinical Impression(s) from Imaging Studies Abdomen X-Ray 03/25/25 17:16 IMPRESSION: Possible fecal impaction in the rectum Reading Location: [facility] OF [facility] Discharge Plan Triage Chief Complaint: Constipation ED Provider: Vicente Leon Dx/Rx/DC Orders Clinical Impression: Fecal impaction in rectum, Constipation Instructions: ED Constipation (Adult), ED Fecal Impaction, Treated Prescriptions: No Action B Complete 1 tab PO DAILY metronidazole [Vandazole] 70 GM gel 0 g vaginal BID travoprost [Travatan Z] 1 DROP bottle 1 drp Left Eye DAILY fluoxetine [Sarafem] 20 MG tablet 20 mg PO DAILY nystatin-triamcinolone 30 GM cream 0 g TP BID omeprazole 20 MG capsule 20 mg PO DAILY timolol maleate 1 DROP drops 1 drp Left Eye DAILY oxybutynin chloride 5 MG tablet 10 mg PO DAILY ciclopirox [Loprox] 100 GM gel TP BID calcium carbonate-vitamin D3 [Calcium 600 + D(3)] 1 EACH tablet 1 ea PO BID ergocalciferol (vitamin D2) 2,000 UNIT tablet 50,000 unit PO QWEEK Prednisol 1% 1 drp Left Eye DAILY PRN oxycodone 5 mg tablet 5 mg PO BID 30 Days Qty: 60 0RF Rx Instructions: 8am and 9pm. oxycodone 5 mg tablet 5 mg PO Q6H PRN (Reason: pain) 30 Days Qty: 120 0RF Primary Care Provider: Chey Kumar Referrals: Chey Kumar MD [Primary Care Provider] - 1-2 Days if not improving Activity Restrictions/Additional Instructions: Take MiraLAX consistently once or twice a day. Continue your senna. Print Language: Brazilian Disposition Disposition: Home, Self Care What to do if you have Problems For any increased pain, shortness of breath, bleeding, nausea or vomiting, chestpain, or any unexpected problems, contact your Primary Care Provider. Call [facility] ([phone]) or report tothe closest Emergency Room. Call 911 if necessary. 03/25/251902 Cosigner Signature (if applicable): CC: Dr. Chey Kumar MD ~ Signed [facility]08-23-2025 Radiology Diagnostic study note [facility] Imaging Services [address] [place], [place] [id number] Abd Decub and/or Erect(Portabl MR#: [id number] Acct: [id number] Name: TENA CANNON Rep #: [id number] : 1940 F 84 From: Pet er Peer DO PCP: Dr. Chey Kumar MD Status: P RE ER Study:Abd Decub and/or Erect(Portabl Date of Exam: 03/25/25 Exam# [id number] Ordering Dr: Vicente Leon MD PROCEDURE: ABD DECUB AND/OR ERECT(PORTABLE 03/25/2025 REASON FOR EXAM: CONSTIPATION TECHNIQUE: ABD DECUB AND/OR ERECT(PORTABLE COMPARISON: December 08, 2024 CT FINDINGS: Bowel gas: Nonobstructing nonspecific bowel-gas pattern. [id number] fecalload consistent withconstipation. Calcifications: No suspicious calcifications. Bones: Degenerative changes of the lumbar spine. Kyphoplasties cement in L3. Other: Cholecystectomy clips in the gallbladder fossa. Pronounced left convexity scoliosis of the thoracolumbar spine RAD/Abd Decub and/or Erect(Portabl IMPRESSION: Possible fecal impaction in the rectum Reading Location: [facility] CC: Dr. Vicente Leon MD; Dr. Chey Kumar MD ~ Supervisor Glycerin: Signed [facility]08-23-2025 Discharge summary Author Vicente Leon [facility] Note Date/Time March 25, 2025 7: 03pm [facility] Medical Records Department [address] [place] [id number] Emergency Department Summary 03/25/25 MR#: [id number] Acct: [id number] Name: TENA CANNON Rep #:[id number] : 1940 84 From: Vicente Leon MD PCP: Dr. Chey Kumar MD Status:R EG ER Location: ED HPI HPI - GI History of Present Illness Chief Complaint: Constipation Narrative Narrative: 84-year-old female presents from [facility] with constipation for the last week or longer. She relates history that she is bed ridden and is taking oxycodone for 2 fractured vertebrae. She usually sits on the bedpan or has bowel movements in her briefs. She states for the last week she has not had a bowel movement or maybe only small hard stool. She is taking oxycodone for pain. Over the last few days she is experienced nausea and vomiting as well. No fevers or chills. She states she feels like she has to have a bowel movementand when she has her the pain it feels like she has to have a bowel movement butis unable to do so. [facility] Medical History History of fractured vertebra Polio Home Medications ?Medication ?Instructions ?Recorded ?Last Taken ?Type B Complete 1 tab PO DAILY 03/10/14 Unkn own History Prednisol 1% 1 drp DAILY PRN 03/10/14 Unk nown History calcium 600 mg (as 1 ea PO BID 03/10/14 Unknown History carbonate)-vitamin D3 10 mcg (400 unit) tablet (Calcium 600 + D(3)) ciclopirox 0.77 % topical gel g TP BID 03/10/14 Unknow n History (Loprox) ergocalciferol (vitamin D2) 50 mcg 50,000 unit PO QWEE K 03/10/14 Unknown History (2,000 unit) tablet fluoxetine 20 mg tablet (Sarafem) 20 mg PO DAILY 03/10 Unknown History metronidazole 0.75 % (37.5 mg/5 0 g vaginal BID Unknown History gram) vaginal gel (Vandazole) nystatin-triamcinolone 100,000 0 g TP BID 03/10/14 Unk nown History unit/g-0.1 % topical cream omeprazole 20 mg capsule,delayed 20 mg PO DAILY Unknown History release oxybutynin chloride 5 mg tablet 10 mg PO DAILY 4 Unknown History timolol maleate 0.5 % eye drops 1 drp DAILY 03/10/14 U nknown History travoprost 0.004 % eye drops 1 drp DAILY 03/10/14 Unkn own History (Travatan Z) oxycodone 5 mg tablet 5 mg PO BID pain 30 days #60 tabs 03/01/25 Unknown Rx oxycodone 5 mg tablet 5 mg PO Q6H PRN pain 30 days #120 03/07/25 Unknown Rx tabs Allergy/AdvReac Type Severity Reaction Status Date / Time cephalexin monohydrate (From AdvReac Diarrhea Verified 03/10/14 18:10 Keflex) BLOOD THINNERS AdvReac Other Uncoded 03/10/14 18:10 Social History Smoking Status: Unknown if ever smoked ROS ROS ED ROS Narrative Review of systems positive for diffuse abdominal pain and constipation. Few days ago had nausea and vomiting. No fevers or chills. There are no exacerbating or alleviating factors. EXAM Physical Exam Narrative Exam Narrative: Afebrile. Vital signs noted. Nontoxic-appearing. Cardiovascular examination reveals regular rate and rhythm with intermittent tachycardia. Lungs clear to auscultation bilaterally. Abdomen soft with minimal diffuse tenderness with positive bowel sounds. 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 Const Vital Signs: 03/25/25 16:46 03/25/25 16:57 Temperature 98.5 F Temperature Source Oral Pulse Rate 120 H Respiratory Rate 18 Blood Pressure 127/67 H Blood Pressure Mean 87 Pulse Ox 96 Oxygen Delivery Method Room Air MDM MDM MDM Narrative Medical decision making narrative: Differential diagnosis includes but not limited to constipation versus fecal impaction versus bowel obstruction. I have lower suspicion for bowel obstruction. She still feels as if she has to have a bowel movement. X-rays will be obtained and chaperoned rectal examination performed. On my independentinterpretation of the x-rays of the abdomen, there is a nonobstructive pattern and probable fecal impaction. I reviewed the radiology report which confirms myindependent interpretation. Chaperoned rectal examination did show hard stool which was removed with digitaldisimpaction. Patient tolerated procedure well. The hard stool was evacuated from the rectum is much as the fingers length would allow. At this point in time, she states she is already on senna but takes MiraLAX sporadically. She was told to take it more consistently at least once to twice a day. I feel she can be discharged to follow-up. Return instructions to the emergency departmentwere reviewed. Disposition is discharged home in stable condition. History & Record Review Discussion w/independent historian: Patient Radiography Diagnostic Testing: Clinical Impression(s) from Imaging Studies Abdomen X-Ray 03/25/25 17:16 IMPRESSION: Possible fecal impaction in the rectum Reading Location: ON LICENSE OF [facility] Discharge Plan Triage Chief Complaint: Constipation ED Provider: Vicente Leon Dx/Rx/DC Orders Clinical Impression: Fecal impaction in rectum, Constipation Instructions: ED Constipation (Adult), ED Fecal Impaction, Treated Prescriptions: No Action B Complete 1 tab PO DAILY metronidazole [Vandazole] 70 GM gel 0 g vaginal BID travoprost [Travatan Z] 1 DROP bottle 1 drp Left Eye DAILY fluoxetine [Sarafem] 20 MG tablet 20 mg PO DAILY nystatin-triamcinolone 30 GM cream 0 g TP BID omeprazole 20 MG capsule 20 mg PO DAILY timolol maleate 1 DROP drops 1 drp Left Eye DAILY oxybutynin chloride 5 MG tablet 10 mg PO DAILY ciclopirox [Loprox] 100 GM gel TP BID calcium carbonate-vitamin D3 [Calcium 600 + D(3)] 1 EACH tablet 1 ea PO BID ergocalciferol (vitamin D2) 2,000 UNIT tablet 50,000 unit PO QWEEK Prednisol 1% 1 drp Left Eye DAILY PRN oxycodone 5 mg tablet 5 mg PO BID 30 Days Qty: 60 0RF Rx Instructions: 8am and 9pm. oxycodone 5 mg tablet 5 mg PO Q6H PRN (Reason: pain) 30 Days Qty: 120 0RF Primary Care Provider: Chey Kumar Referrals: Chey Kumar MD [Primary Care Provider] - 1-2 Days if not improving Activity Restrictions/Additional Instructions: Take MiraLAX consistently once or twice a day. Continue your senna. Print Language: Brazilian Disposition Disposition: Home, Self Care What to do if you have Problems For any increased pain, shortness of breath, bleeding, nausea or vomiting, chestpain, or any unexpected problems, contact your Primary Care Provider. Call [facility] ([phone]) or report to the closest Emergency Room. Call 911 if necessary. 03/25/251902 <Electronically signed by Vicente Leon MD> Cosigner Signature (if applicable): CC: Dr. Chey Kumar MD ~ Signed [facility] Work Phone: 1(990) 877-446808-20-2025 Telephone encounter Note* Telephone Encounter - Norma Long - 03/22/2025 4:24 PM EDT Tena has her daughter calling for information to request medical records request for insurance [employer]. Fax and phone number was provided Patient has been identified by name and birthdate. Person calling: daughter: Juan Call patient at: on cell [phone] (home) [phone] (cell) Was an appointment scheduled: No Closing statement: Results or non-symptom based questions: Thank you for calling [facility], your call will be returned within the next business day. Norma Monroe [facility]08-20-2025 Miscellaneous Notes* Telephone Encounter - Norma Long - 03/22/2025 4:24 PM EDT Tena has her daughter calling for information to request medical records request for insurance [employer]. Fax and phone number was provided Patient has been identified by name and birthdate. Person calling: daughter: Juan Call patient at: on cell [phone] (home) [phone] (cell) Was an appointment scheduled: No Closing statement: Results or non-symptom based questions: Thank you for calling [facility], your call will be returned within the next business day. Norma Monroe documented [facility] Telephone encounter Note * Telephone Encounter - Yandy Cruz LPN - 02/14/2025 9:44 AM EDT Called [facility], patient on [address]. Spoke with LOBO Soto. Reports patient had been transferred hall. LOBO Soto informed of orders and she will update facility provider. Yandy Cruz LPN [facility]07-15-2025 Miscellaneous Notes* Telephone Encounter - Yandy Cruz LPN - 02/14/2025 9:44 AM EDT Called [facility], patient on [address]. Spoke with LOBO Soto. Reports patient had been transferred halls. LOBO Soto informed of orders and she will update facility provider. Yandy Cruz LPN * Telephone Encounter - Yandy Cruz LPN - 02/10/2025 9:36 AM EDT Faxed order and results to [facility]. Yandy Cruz LPN * Telephone Encounter - Yandy Cruz LPN - 02/10/2025 9:34 AM EDT Images from the original note were not included. Order [place] [place]: sulfamethoxazole-trimethoprim (BACTRIM DS) 800-160 mg per tablet [[id number]] Original entry by Marilyn Santos PA-C 02/09/2025 [...] Diagnoses: -- Pharmacy Associated Diagnoses: -- Dates * Telephone Encounter - Yandy Cruz LPN - 02/10/2025 9:26 AM EDT Called patient. No answer- left message to call clinic for message. Yandy Cruz LPN * Telephone Encounter - Yandy Cruz LPN - 02/10/2025 9:24 AM EDT ----- Message from Marilyn Santos PA-C sent at 02/09/2025 11:51 AM EDT ----- Regarding: urine culture is positive Please tell her the urine culture is positive and to start bactrim. Thanks Son documented in [facility] Telephone encounter Note * Telephone Encounter - Yandy Cruz LPN - 02/10/2025 9:36 AM EDT Faxed order and results to [facility]. Yandy Cruz LPN [facility]07-11-2025 Telephone encounter Note* Telephone Encounter - Yandy Cruz LPN - 02/10/2025 9:34 AM EDT Images from the original note were not included. Order [facility] [place]: sulfamethoxazole-trimethoprim (BACTRIM DS) 800-160 mg per tablet [[id number]] Original entry by Marilyn Santos PA-C 02/09/2025 [...] Diagnoses: -- Pharmacy Associated Diagnoses: -- Dates [facility]07-11-2025 Telephone encounter Note* Telephone Encounter - Yandy Cruz LPN - 02/10/2025 9:26 AM EDT Called patient. No answer- left message to call clinic for message. Yandy Cruz LPN [facility]07-11-2025 Telephone encounter Note* Telephone Encounter - Yandy Cruz LPN - 02/10/2025 9:24 AM EDT ----- Message from Marilyn Santos PA-C sent at 02/09/2025 11:51 AM EDT ----- Regarding: urine culture is positive Please tell her the urine culture is positive and to start bactrim. Edward Cline [facility]07-09-2025 Telephone encounter Note* Telephone Encounter - Yandy Cruz LPN - 02/08/2025 8:36 AM EDT Faxed urology office notes to facility. Yandy Cruz LPN [facility]07-09-2025 Miscellaneous Notes* Telephone Encounter - Yandy Cruz LPN - 02/08/2025 8:36 AM EDT Faxed urology office notes to facility. Yandy Cruz LPN * Telephone Encounter - Yandy Cruz LPN - 02/08/2025 8:34 AM EDT Called [facility] to obtain fax number. Spoke with LOBO Burk on [facility] [place] (Transition of Care). Fax number is . Yandy Cruz LPN documented in this encounterSub[facility] Telephone encounter Note * Telephone Encounter - Yandy Cruz LPN - 02/08/2025 8:34 AM EDT Called [facility] to obtain fax number. Spoke with LOBO Burk on [facility] [place] (Transition of Care). Fax number is . Yandy Cruz LPN [facility]07-08-2025 NoteHNO ID: [id number] Author: NARCISO SHERMAN PA-C Service: ? Author Type: Physician Business Information Consultant Type: Progress Notes Filed: 02/07/2025 11:35 Note Text: [facility] CLINIC NOTE (F) Note was generated by [employer] and edited as appropriate SERVICE DATE: [...] 0.96 mg/dL Final MEDICATIONS: dextran 70-hypromellose (ARTIFICIAL TEARS,[id number],) 0.1-0.3 % ophthalmic solution Use 1 drop in both eyes two times a day. lidocaine (ASPERFLEX, LIDOCAINE,) 4 % patch Apply 1 application as directed once daily. Apply to lower back, on for twelve hours, off for twelve hours. owghuswl-vwsp-nef9-C-lety-bosw (OSTEO BI-FLEX TRIPLE STRENGTH) 750 mg-644 mg- [...] Use 1 Drop i (more content not included)...[facility]07-08-2025 History of Present illness Narrative* Narciso Sherman PA-C - 02/07/2025 10:59 AM EDT Images from the original note were not included. [facility] NEW PATIENT CLINIC NOTE (F) Note was generated by [employer] and edited as appropriate SERVICE DATE: February 07, 2025 NAME: Tena Cannon GENDER: female CHIEF COMPLAINT: The patient is an 84-year-old female with a history of recurrent UTIs, seen today for evaluation ofurinary symptoms. HISTORY OF PRESENT ILLNESS: The patient is an 84-year-old female with a history of recurrent UTIs, seen today for evaluation ofurinary symptoms. Urinary Symptoms: - Recent Phoenix catheter [...] 0.96 mg/dL Final MEDICATIONS: dextran 70-hypromellose (ARTIFICIAL TEARS,MYSG70-OTCCI,) 0.1-0.3 % ophthalmic solution Use 1 drop in both eyes two times a day. lidocaine (ASPERFLEX, LIDOCAINE,) 4 % patch Apply 1 application as directed once daily. Apply to lower back, on for twelve hours, off for twelve hours. kujdglts-gqcm-xdj2-C-lety-bosw (OSTEO BI-FLEX TRIPLE STRENGTH) 750 mg-644 mg- 30 mg-1 mg tab Take 1tablet by mouth once daily. pantoprazole DR (PROTONIX) [...] mcg tablet Take 1 tablet by mouth oncedaily. prednisoLONE acetate (PRED FORTE, ECONOPRED PLUS) 1 [...] - Recent hospitalization on December 15 at [facility] due to a fall resulting in a [...] only if you experience problems. MONICA Concepcion, GENE EID documented in this encounterSub[facility]25 NoteHNO ID: [id number] Author: LIONEL JOINER MA Service: ? Author Type: Glass Processing Worker Type: Progress Notes Filed: 01/09/2025 08:50 Note [...] Lionel Joiner MA January 09, 2025 7:10 [facility]06-09-2025 History of Present illness Narrative* Lionel Joiner MA - 01/09/2025 7:10 AM EDT POPULATION HEALTH NAVIGATION OUTREACH Action/FYI Patient is on [employer] list for below and needs appointment to [...] 09, 2025 7:10 AM documented in this encounterSub[facility] NotePatient Outreach (NETNAV) TENA CANNON ([id number]) 1940 F Date Time Provider Department 01/09/25 [...] - Diarrhea 8 - GI Upset Comments: "extreme diarrhea" VIOXX (ROFECOXIB) 05/12/2005 5 - Intolerance Comments: "Makes capillaryblood vessels break" NOVOCAIN (PROCAINE HCL) 01/13/2024 5 - Intolerance Comments: headaches OMEGA-3 FISH OIL (OMEGA-3 FATTY A*05/05/2007 5 - Intolerance Comments: bleeding in eye ADVIL (IBUPROFEN) 05/28/2005 5 - Intolerance Comments: "Makes capillary blood vessels bread" ASA (SALICYLATES) 05/28/2005 5 - Intolerance Comments: "Makes capillary blood vessels break" Date Reviewed: 12/19/2024 Reviewed by: Theresa Gonzales, RN - Fully Assessed Reason for Visit: Population Health Navigation Outreach [3910] Cmt: [employer] - [place] PCSA Prescriptions as of 01/09/2025 [...] (LIQUID TEARS OPHTHALMIC) Use in eyes. - rutin/hesp/bioflav/C/pfnsyu548 (BIOFLEX ORAL) Take 1 capsule by mouth [...] poliomyelitis [B91] 05/12/2005 Varicos (more content not included)...[facility]05-19-2025 Note HNO ID: [id number] Author: RACHEL RODRIGEZ RN Service: Care Management Author Type: Registered Nurse Type: Care Mgt Progress Note Filed: 12/19/2024 13:56 Note Text: CARE MANAGEMENT DISCHARGE NOTE SERVICE DATE: December 19, 2024 SERVICE TIME: 1:47 PM Discharge Order written for today. Discharge: [facility] SNF: [facility] - - Facility confirms they have insurance auth and can accept patient. HILDA ROMO informed Katiuska James from the [facility]. SNF updated on discharge today and [facility] Transport Scheduled for today at 3:00PM - Trip Number [id number] Transport envelope on chart. HILDA ROMO updated patient at bedside and daughter Joanne by phone on discharge plan and transport time. Nurse: Theresa Vargas RN updated on discharge plan for today. Admission Date: 12/12/2024 LOS: 3 days Discharge Arrangement Discharge Arrangement: [facility] Provider Name: SNF: [facility] - Transportation Arrangements Transportation Arrangements: Ambulance Transportation Agency and Phone #:: [facility] [phone] Date of Trip: 12/19/24 (Trip Number [id number]) Time of Trip: 1500 Type of Service: BLS Non-emergency Is Patient Medicaid Pending?: No Was transportation financial coverage discussed with family?: Patient, Family (Daughter: Joanne Bazzi - ) Terminal Worker Location: [place] Destination: SNF: [facility] - Financial Care Management Responsibility: None Handoff Communication: Handoff to: Other Caregiver, Primary Care Physician Primary Care Physician Name/Phone: PCP: Sahra Guy MD - Other Caregiver Name/Phone: SNF: [facility] - Additional Information: Discharge Information Row Name ED to Hosp-Admission (Current) from 12/12/2024 in [facility] Follow-Up Appointment Provider Name PCP: Jaime Guy MD - [facility] Agency SNF: [facility] - SIGNATURE: Rachel Rodrigez RN PATIENT NAME: Tena Cannon DATE: December 19, 2024 TIME: 1:47 PMLima City [id number] NoteHNO ID: [id number] Author: RACHEL RODRIGEZ RN Service: Care Management Author Type: Registered Nurse Type: Care Mgt Progress Note Filed: 12/19/2024 13:38 Note Text: CARE MANAGEMENT PROGRESS NOTE SERVICE DATE: 12/19/2024 SERVICE TIME: 11:41 AM LOS: 3 days Discharge Plan: [facility]. SNF: [facility] - Able to Accept: They note they have insurance authorization to accept. [facility] completed HENS/[place] 7000 [facility] - Document ID : [id number]. Dr Lopez updated CM: he spoke with patient and daughter and is planning to discharge patient today. RN DEMETRIUS met with patient at bedside to discuss discharge plan for today. Patient confirms she is agreeable with discharge to SNF: [facility] in [place] by medical transport. Patient informed that medical transport time scheduled for today at 3:00 PM. RN DEMETRIUS called and updated patients daughter Juan on discharge plan and transport time for today. Juan confirms she is agreeable with discharge plan. [facility] updated in [facility] Transitions on Discharge today and Transport Time. Transport envelope on chart. SIGNATURE: Rachel Rodrigez RN PATIENT NAME: Tena Cannon DATE: December 19, 2024 TIME: 11:41 AMLima City [id number] NoteHNO ID: [id number] Author: MORIAH LOPEZ MD Service: Hospital Medicine Author Type: Physician Type: Progress Notes Filed: 12/19/2024 09:45 Note Text: HOSPITAL MEDICINE PROGRESS NOTE History: Passing gas. No BM. No abd pain. Exam: BP 114/59 Pulse 78 Temp 36.4 ?C (97.5 ?F) (Oral) Resp 17 Ht 142.2 cm (4' 8") Wt 69.2 kg (152 lb 8.9 oz) [...] at 6 pm that he spoke with [facility] neurosurgeon continuous improvement director who said that patient isn't a surgical [...] Noted Thoracic compression fracture, closed, initial encounter ([facility]) 12/16/2024 Obesity, Class I, BMI 30-34.9 12/12/2024 Low back pain 12/12/2024 Generalized weakness 07/29/2018 Obstructive sleep apnea on CPAP 07/14/2017 Overview Note: [employer]--PH # [phone]---FX # [phone]. 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 Will Begin Precert. Physician Certification [...] Problem: Thoracic compression fracture, closed, initial encounter ([facility]) Active Problems: Restless legs syndrome (RLS) Postpoliomyelitis syndrome (HCC) Obstructive sleep apnea on CPAP Generalized weakness Obesity, Class I, BMI 30-34.9 Low back pain Resolved Problems: Sleep apnea Attending Physician: Moriah Lopez MD SIGNATURE: Ilsa Rodas RN,BSN, ACM PATIENT NAME: Tena Cannon DATE: December 18, 2024 TIME: 9:54 [facility] [id number] NoteHNO ID: [id number] Author: MORIAH LOPEZ MD Service: Hospital Medicine Author Type: Physician Type: Progress Notes Filed: 12/18/2024 08:45 Note Text: HOSPITAL MEDICINE PROGRESS NOTE History: Urine less cloudy per waitstaff. Exam: BP (!) 114/48 Pulse 74 Temp 36.5 ?C (97.7 ?F) (Oral) Resp 17 Ht 142.2 cm (4' 8") Wt 69.2 kg (152 lb 8.9 oz) [...] at 6 pm that he spoke with henry mayo [facility] neurosurgeon continuous improvement director who said that patient isn't a surgical candidate based on her age and chronic functional status and high risk for surgical complications and non-healing. Will focus on pain meds and transition to SNF with brace. Constipation - continue miralax/senna docusate. Add mag citrate today. Trying to avoid [place] meds given back pain. Urine retention - stop sanctura and add flomax. Continue Phoenix and do void trial at SNF after ~ 7 days of flomax. F/u with urology on DC. Tylenol, solumedrol, oxycodone, lido patch, kpad for compression fracture. F/u with spine surg. Med rdy for SNF. Active Hospital Problems Diagnosis Date Noted Thoracic compression fracture, closed, initial encounter ([facility]) 12/16/2024 Obesity, Class I, BMI 30-34.9 12/12/2024 Low back pain 12/12/2024 Generalized weakness 07/29/2018 Obstructive sleep apnea on CPAP 07/14/2017 Overview Note: DME--[employer]--PH # [phone]---FX # [phone]. 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 Service: ? Author Type: ? Type: Progress Notes Filed: 12/18/2024 02:53 Note Text: Epic Scheduled Downtime: 12/18/2024 1:00:00 AM to 12/18/2024 2:37:00 [facility] HospitalRzrctajh85-09-7212 NoteHNO ID: [id number] Author: MORIAH LOPEZ MD Service: Hospital Medicine Author Type: Physician Type: Progress Notes Filed: 12/17/2024 08:09 Note Text: HOSPITAL MEDICINE PROGRESS NOTE History: back pain. No other new symptoms. Exam: BP 112/75 Pulse 82 Temp 36.4 ?C (97.5 ?F) (Oral) Resp 16 Ht 142.2 cm (4' 8") Wt 69.2 kg (152 lb 8.9 oz) [...] at 6 pm that he spoke with main campus neurosurgeon continuous improvement director who said that patient isn't a surgical [...] Noted Thoracic compression fracture, closed, initial encounter ([facility]) 12/16/2024 Obesity, Class I, BMI 30-34.9 12/12/2024 Low back pain 12/12/2024 Generalized weakness 07/29/2018 Obstructive sleep apnea on CPAP 07/14/2017 Overview Note: DME--[employer]--PH # [phone]---FX # [phone]. 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 Service: ? Author Type: ? Type: Progress Notes Filed: 12/17/2024 03:45 Note Text: Epic Scheduled Downtime: 12/17/2024 1:00:00 AM to 12/17/2024 3:39:00 [facility] HospitalAysnlvwz18-93-0108 NoteHNO ID: [id number] Author: RACHEL RODRIGEZ RN Service: Care Management Author Type: Registered Nurse Type: Care Mgt Progress Note Filed: 12/16/2024 14:42 Note Text: CARE MANAGEMENT PROGRESS NOTE SERVICE DATE: 12/16/2024 SERVICE TIME: 2:28 PM LOS: 0 days 12/16/24 PT recommended SNF and 12/16/24 OT recommended SNF. SNF Choice: [facility]: Pending. Referral updated in [facility] Transitions and Voice Message left to inform Kamini in Admissions [phone]. Discharge Plan: [facility] - Pending Acceptance and Insurance Authorization/Precert. [...] Cannon DATE: December 16, 2024 TIME: 2:28 PMLima City [id number] NoteHNO ID: [id number] Author: GEORGINA RICHARDSON MD Service: Hospital Medicine Author Type: Physician Type: Progress Notes Filed: 12/16/2024 14:30 Note Text: DEPARTMENT OF HOSPITAL MEDICINE PROGRESS NOTE SERVICE DATE: 12/16/2024 SERVICE TIME: 2:23 PM Hospital Medicine/Primary Attending: Georgina Richardson MD NIGHT AND WEEKEND COVERAGE: [facility] COVERAGE: Days: [phone], please page attending physician. Nights: [phone], please page [facility] Hospitalist Night coverage pager [phone]. Subjective INTERVAL HPI: Patient is still having [...] (Src) 97.5 (Oral) Resp 18 Ht 4' 8" (1.42m) Wt 152 lb 8.9 oz (69.2kg) [...] 22 Gauge 2 days Peripheral 12/14/24 1257 [facility] Short Right Forearm 22 Gauge 2 days [...] 12 -- 15 No results found for: "HSTNT" Most recent imaging Assessment/Plan Problem List Assessment AND Plan Low back pain GERD (gastroesophageal reflux disease) Adjustment disorder with depressed mood Restless legs syndrome (RLS) Postpoliomyelitis syndrome (HCC) Obstructive sleep apnea on CPAP Generalized weakness Dysphagia Hypertension Obesity, Class I, BMI 30-34.9 Thoracic compression fracture, closed, initial encounter ([facility]) HOSPITAL COURSE: Tena Cannon is a 84 year old female presented with past medical his (more content not included)...[facility] HospitalSvxhbtzx24-44-8112 NoteHNO ID: [id number] Author: GEORGINA RICHARDSON MD Service: Care Management [...] 30-34.9 Thoracic compression fracture, closed, initial encounter ([facility]) Resolved Problems: Sleep apnea Attending Physician: Georgina Richardson, [facility]4535 NoteHNO ID: [id number] Author: GEORGINA RICHARDSON MD Service: Hospital Medicine Author Type: Physician Type: Progress Notes Filed: 12/15/2024 11:49 Note Text: DEPARTMENT OF HOSPITAL MEDICINE PROGRESS NOTE SERVICE DATE: 12/15/2024 SERVICE TIME: 11:47 AM Hospital Medicine/Primary Attending: Georgina Richardson MD NIGHT AND WEEKEND COVERAGE: [facility] [employer] COVERAGE: Days: [phone], please page attending physician. Nights: [phone], please page [facility] Hospital[facility] Night coverage pager [phone]. Subjective INTERVAL HPI: Patient is still having [...] (Src) 97.7 (Oral) Resp 16 Ht 4' 8" (1.42m) Wt 152 lb 8.9 oz (69.2kg) [...] Drains, and Airways Line Name Duration Peripheral 12/13/249 Short Left Forearm 22 Gauge 1 day Peripheral 12/14/24 1257 [facility] Short Right Forearm 22 Gauge <1 day Drain Name Duration External Collection Device 12/12/24 1730 2 days Reviewed lines and needs to be continued: REASONS: Intravenous fluids DATA: Diagnostic tests reviewed for today's visit: Recent Labs 12/13/24 0525 12/12/24 1257 05/10/43112/09/24 0812/08/24 1630 WBC 10.47 12.50* 7.99 < > [...] 12 -- 15 No results found for: "HSTNT" Most recent imaging Assessment/Plan Problem List Assessment AND Plan Low back pain GERD (gastroesophageal reflux disease) Adjustment disorder with depressed mood Restless legs syndrome (RLS) Postpoliomyelitis syndrome (HCC) Obstructive sleep apnea on CPAP Generaliz (more content not included)...[facility] HospitalIqsaqckm75-27-6932 NoteHNO ID: [id number] Author: RACHEL RODRIGEZ, RN Service: Care Management [...] evaluation and recommendation: Pending Anticipated Discharge Plan: [facility] Only SNF Choice Provided: [facility] [place]: Pending Review of Therapy Evaluations and Insurance Authorization/Precert. Discharge Transportation: Medical Transport - COT Transport envelope on chart. Needs Prior to Discharge: To Be Determined, OT/PT Evaluation, Accepting Facility, Insurance Authorization, Precertification, Discharge Transportation, Equipment Delivery (Back Brace) CM Dept to Follow. SIGNATURE: Rachel Rodrigez RN PATIENT NAME: Tena Cannon DATE: December 15, 2024 TIME: 8:53 AMLima City HospitalTviseyaz58-54-8656 NoteHNO ID: [id number] Author: GEORGINA RICHARDSON MD Service: Hospital Medicine Author Type: Physician Type: Progress Notes Filed: 12/14/2024 15:17 Note Text: DEPARTMENT OF HOSPITAL MEDICINE PROGRESS NOTE SERVICE DATE: 12/14/2024 SERVICE TIME: 3:15 PM Hospital Medicine/Primary Attending: Georgina Richardson MD NIGHT AND WEEKEND COVERAGE: [employer] COVERAGE: Days: [phone], please page attending physician. Nights: [phone], please page [facility] Hospital[facility] Night coverage pager [phone]. Subjective INTERVAL HPI: Patient is confused and [...] (Src) 97.7 (Oral) Resp 16 Ht 4' 8" (1.42m) Wt 152 lb 8.9 oz (69.2kg) [...] 22 Gauge <1 day Peripheral 12/14/24 1257 [facility] Short Right Forearm 22 Gauge <1 day [...] 12 -- 15 No results found for: "HSTNT" Most recent imaging Assessment/Plan Problem List Assessment AND Plan Low back pain GERD (gastroesophageal reflux disease) Adjustment disorder with depress (more content not included)...[facility] 12-14-2024 NoteHNO ID: [id number] Author: CORRINE PETERSEN RN Service: Care Management [...] to discharged to SNF, referral out to [facility]. Per patient please share all medical information with her daughter Juan. CM will continue to follow. SIGNATURE: Corrine Petersen RN PATIENT NAME: Tena Cannon DATE: December 14, 2024 TIME: 2:22 PMLima City HospitalTyepsvcq29-82-5169 NoteHNO ID: [id number] Author: GEORGINA RICHARDSON MD Service: Hospital Medicine Author Type: Physician Type: Progress Notes Filed: 12/13/2024 12:50 Note Text: DEPARTMENT OF HOSPITAL MEDICINE PROGRESS NOTE SERVICE DATE: 12/13/2024 SERVICE TIME: 12:40 PM Hospital Medicine/Primary Attending: Georgina Richardson MD NIGHT AND WEEKEND COVERAGE: [employer] COVERAGE: Days: [phone], please page attending physician. Nights: [phone], please page [facility] Night coverage pager [phone]. Subjective INTERVAL HPI: Patient is little bit [...] (Src) 97.7 (Oral) Resp 16 Ht 4' 8" (1.42m) Wt 152 lb 8.9 oz (69.2kg) [...] Airways Line Name Duration Peripheral 12/12/24 1229 [facility] Short Right Forearm 20 Gauge 1 day [...] 12 -- 15 No results found for: "HSTNT" Most recent imaging Assessment/Plan Problem List Assessment AND Plan Low back pain GERD (gastroesophageal reflux disease) Adjustment disorder with depressed mood Restless legs syndrome (RLS) Postpoliomyelitis syndrome (HCC) Obstructive sleep apnea on CPAP Generalized weakness Dysphagia Hypertension Obesity, Class I, BMI 30-34.9 HOSPITAL COURSE: Tena Stewart Cannon is a 84 year o (more content not included)... [facility] HospitalUlqkntfu91-13-7816 NoteHNO ID: [id number] Author: RACHEL RODRIGEZ RN Service: Care Management Author Type: Registered Nurse Type: Care Mgt Initial Assessment Filed: 12/13/2024 10:55 Note Text: CARE MANAGEMENT: ASSESSMENT AND DISCHARGE PLAN SERVICE DATE: December 13, 2024 SERVICE TIME: 10:20 AM food handler spoke with patient at bedside to complete Care Management Assessment. Introduction made and role of Care Management explained. PCP: Sahra Guy MD - Patient confirmed Primary Contact: Primary Emergency Contact: Juan Bazzi Relation: Daughter Admission Status: Observation Insurance Provider: [employer] MEDICARE PPO Discharge Planning requested by: Per Department Practice Potential Transition Plans (Cor[facility] Facility) Advance Directives Current Advance Directive: Living Will In Chart: Yes Current Living Arrangements and Support Lives with: Alone (Assisted Living Facility: [facility]) Type of Residence: Assisted Living Facility Care Facility Name: Assisted Living Facility: [facility] Support: Family members How do you manage [...] she usually transfers herself with standby assist. Mcgraw of Choice Explained: Mcgraw of Choice Given: Yes (Patient confirms she is agreeable to a SNF referral to [facility] [place].) Level of Care Discussed: [facility] Facility Are you interested in bedside delivery of your medications? Service Not Available Discharge Pharmacy Preference: [facility] in [place] Discharge Planning Participant(s): Patient Transport at Discharge: Transportation Arrangements: Ambulance Transportation Agency and Phone #:: [facility] [phone] Type of Service: BLS Non-emergency Is Patient Medicaid Pending?: No Was transportation financial coverage discussed with family?: Patient (Patient has been informed that she is responsible for all out of pocket costs for medical transportation at discharge.) Terminal Worker Location: [facility] Financial Care Management Responsibility: None Needs Prior to Discharge: Needs Prior to Discharge: To Be Determined, OT/PT Evaluation, Accepting Facility, Insurance Authorization, Precertification, Discharge Transportation Post-Acute Discharge Plan: From Assisted Living Facility: [facility]. Patient reports she uses manual wheelchair or electric wheelchair for mobility. Patient reports she is able to transfer herself with one standby assist at baseline. Patient reports she manages her own medications and her meals are provided by the assisted living facility. Patient is agreeable to SNF: [facility] and states her daughter has talked with them. Referral sent in [facility] Transitions. Patient will need PT AND OT evaluations and insurance Precert for SNF. Discharge Transportation: Medical Transport - [place]. RN CM informed patient she is responsible for all out of pocket costs for medical transport not covered by insurance. Patient confirms she is agreeable with medical transport at discharge. CM Dept to Follow. SIGNATURE: Rachel Rodirgez RN PATIENT NAME: Tena Cannon DATE: December 13, 2024 TIME: 10:20 [facility] NoteHNO ID: [id number] Author: CORRINE PETERSEN RN Service: Care Management Author Type: Registered Nurse Type: Care Mgt Initial Assessment Filed: 12/09/2024 16:07 Note Text: CARE MANAGEMENT: ASSESSMENT AND DISCHARGE PLAN SERVICE DATE: December 09, 2024 SERVICE TIME: 4:03 PM PCP: Sahra Guy MD (confirmed) Primary Contact: Extended Emergency Contact Information Primary Emergency Contact: Juan Bazzi Relation: Daughter [...] stairs at home?: No Care Facility Name: [facility] Support: Children, Family members How do you manage to accomplish the following: Independent: Bathe/Shower, Dress, Going to the bathroom, Medication Management Needs Assistance: Ambulation, Meals/Meal Prep Dependent: Transportation to appointments/community Current Services/Equipment Current Post-Acute Service(s): DME Current DME Type: Shower seat, Wheelchair-electric, Rollator Scooter Discharge Planning Patient Goal(s): General wellness, Be able to go home Mcgraw of Choice Explained: Mcgraw of Choice Given: No Reason Not Given: [...] Arrangements: Ambulance Transportation Agency and Phone #:: [facility] [phone] Needs Prior to Discharge: Needs Prior to Discharge: Other: See Comment (Pain control, medical clearance) Post-Acute Discharge Plan: Return to Assisted Living Met with patient at bedside, introduced self/role of TCC. Patient presented to [facility] ED c/o lower back/flank plan. Patient admitted to Observation for further evaluation and treatment. Patient lives at [place] [facility]. She reports being independent with most ADLs and IADLs. Due to Polio as a child patient is wheelchair bound. Patient is able to transfer herself. OT recommended SNF, patient and daughter both declined. CM will continue to follow for discharge planning needs. Patient will need ambulance transport at discharge. SIGNATURE: Corrine Petersen RN PATIENT NAME: Tena Cannon DATE: December 09, 2024 TIME: 4:02 PMLima City HospitalPqwmukvj89-61-7411 Telephone encounter Note* Telephone Encounter - [place] Tete Boucher - 12/09/2024 2:29 PM EDT don Martinez called and stated lidocaine patches are denied and the insurance has faxed an appeal form to our office. She is requesting this is completed. Please call [facility] [phone] at 8-5pm central time. Please follow up with the daughter. [facility]05-09-2025 Miscellaneous Notes* Telephone Encounter - [place] Tete Boucher - 12/09/2024 2:29 PM EDT don Martinez called and stated lidocaine patches are denied and the insurance has faxed an appeal form to our office. She is requesting this is completed. Please call [facility] [phone] at 8-5pm central time. Please follow up with the daughter. * Telephone Encounter - Adonay Marquez LPN - 12/08/2024 1:33 PM EDT PA submitted. Response pending. * Telephone Encounter - Norma Long - 12/08/2024 10:19 AM EDT Patient daughterJuan is calling Sahra Guy MD today to request a prior authorization forthe lidocaine 5% per pharmacy [facility] in [place] on [address] Please call daughter with updates on this PA Patient has been identified by name and birthdate. Person calling: daughter: Juan Call patient daughter Juan [phone] (home) [phone] (cell) Was an appointment scheduled: No Closing statement: Prior Auth needed for the Lidocaine Norma Monroe documented in this encounterSub[facility] NoteHNO ID: [id number] Author: ZAYNAB VALENCIA DO Service: Hospital Medicine Author Type: Physician Type: Progress Notes Filed: 12/10/2024 02:15 Note Text: DEPARTMENT OF HOSPITAL MEDICINE PROGRESS NOTE SERVICE DATE: 12/09/2024 SERVICE TIME: 2:14 PM Hospital Medicine/Primary Attending: Zaynab Valencia DO NIGHT AND WEEKEND COVERAGE: [place] COVERAGE: Days: [phone], please page attending physician. Nights: [phone], please page [facility] Night coverage pager [phone]. Subjective INTERVAL HPI: denies any chest pain [...] (Src) 98.2 (Oral) Resp 18 Ht 4' 8" (1.42m) Wt 160 lb 0.9 oz (72.6kg) [...] and Airways Line Duration Peripheral 12/08/24 1631 [facility] Left Antecubital 20 Gauge <1 day DATA: Diagnostic tests reviewed for today's visit: Most recent labs Most recent imaging Assessment/Plan Problem List Assessment AND Plan Frequent falls Low back pain Restless legs syndrome (RLS) Post-polio syndrome (HCC) Obstructive sleep apnea on CPAP Fall at senior care BMI 37.0-37.9, adult Dysphagia HOSPITAL COURSE: Tena [...] -fall from wheelchair with (more content not included)...[facility] 12-09-2024 NoteHNO ID: [id number] Author: HUONG SANZ, RN Service: Nursing Author Type: Registered Nurse Type: Nursing Progress Note Filed: 12/09/2024 02:31 Note Text: 0000 Spoke to respiratory therapist,patient refused CPAP for tonight. 0100 EKG done.[facility] HospitalOzbdjhyz94-78-8678 DfebDRXB-EPN-1 (AGENT OF COVID-19) RNA: Not detected INFLUENZA A RNA: Not detected INFLUENZA B RNA: Not detected RESPIRATORY SYNCYTIAL VIRUS (RSV) RNA: Not detectedMount [facility] HospitalComment on above:Performed By: #### [id number] ####[facility] LABORATORYCLIA [id number] [place] [address] [facility]05-08-2025 Telephone encounter Note* Telephone Encounter - Uriel Stover - 12/08/2024 2:01 PM EDT Tena called in about the Xrays and asked if the mobile unit will be out to take her xrays. She also stated there is no nurse Anais at her facility. Told Tena I would call her daughter to see if thereis any update on this and to see what we can do to help as Tena seemed to be confused on the situation. There are several encounters in patient's chart including another from today where her daughter wasbeing advised to take Tena to the ER. [...] is headed home to take Tena to [facility] since she has other symptoms as well. [facility]05-08-2025 Miscellaneous Notes* Telephone Encounter - Uriel Stover - 12/08/2024 2:01 PM EDT Tena called in about the Xrays and asked if the mobile unit will be out to take her xrays. She also stated there is no nurse Anais at her facility. Told Tena I would call her daughter to see if thereis any update on this and to see what we can do to help as Tena seemed to be confused on the situation. There are several encounters in patient's chart including another from today where her daughter wasbeing advised to take Tena to the ER. [...] is headed home to take Tena to [facility] ER since she has other symptoms as well. * Telephone Encounter - Adonay Marquez LPN - 12/06/2024 5:43 PM EDT Called and spoke with Nurse Anais. Anais is new but she believes that yes a mobile xray services comes.Faxed over xray orders and lidocaine order. Called and left VM with pt contact Juan. Called andnotified pt. * Telephone Encounter - Sahra Guy MD - 12/06/2024 5:19 PM EDT The following approved medication requests have been transmitted electronically. Requested Prescriptions Signed Prescriptions Disp Refills lidocaine HCL 4 % ptmd 60 patch 1 Sig: Apply to painful area once daily, remove after 12 hours Can they do a portable x ray at the facility ? Sahra Guy MD * Telephone Encounter - Torri Salazar - 12/06/2024 1:23 PM EDT Patient is returning call and states she fell on Thursday at home (assisted Living), and has increaseback pain since the fall, she is aware of x-rays orders but states her back hurts so bad to even get dress, She is also aware Voice Mail is full and will clear it.Please advise the patient. * Telephone Encounter - Adonay Marquez LPN - 12/05/2024 4:37 PM EDT Re[facility] Please advise. * Telephone Encounter - Malika Sheikh LPN - 12/05/2024 4:08 PM EDT Mailbox is full. No message left * Telephone Encounter - Sahra Guy MD - 12/05/2024 1:20 PM EDT Has she had the lumbar x rays? Order placed in Sep. Back issues handled through spine or pain managemtn department not regular ortho Encounter Diagnosis ICD-10-CM 1. Acute left-sided low back pain with left-sided sciatica M54.42 CONSULT TO [facility]/SPINE/OCC MED Sahra Guy MD * Telephone Encounter - Wanda Neely RN - 12/02/2024 5:02 PM EDT Answer Assessment - Initial Assessment Questions Requesting a consult to Orthopedics The rehab didn't do anything for the Sciatica And they recommended a cortisone injection. Protocols used: Information Only Call - No [id number] documented in this encounterSuburban [facility]05-[facility] Telephone encounter Note * Telephone Encounter - Corrine Lopez RN - 12/08/2024 1:45 PM EDT Daughter Juan left VM, inquiring regarding previous call. Called and spoke with Anjanaalvin who states she just listened to VM and will be heading back to pt's home to notify EMS for pt to be evaluated in ED. Corrine Lopez RN [facility]05-08-2025 Miscellaneous Notes* Telephone Encounter - Corrine Lopez RN - 12/08/2024 1:45 PM EDT Daughter Juan left VM, inquiring regarding previous call. Called and spoke with Juan who states she just listened to VM and will be heading back to pt's home to notify EMS for pt to be evaluated in ED. Corrine Lopez RN * Telephone Encounter - Corrine Lopez RN - 12/08/2024 1:30 PM EDT Called Juan at [phone]-left detailed message on identified VM with PCP message below. Called patient at [phone] -no answer. VM not set up-could not leave message. Corrine Lopez RN * Telephone Encounter - Sahra Guy MD - 12/08/2024 1:20 PM EDT She should go to ER by ambulance. May have kidney infection causing back pain, sounds like she is dehydrated. Sahra Guy MD * Telephone Encounter - Alondra Villalta RN - 12/08/2024 12:52 PM EDT Called and spoke with Juan and her [...] given that there is no known cause fornausea and it is not improving Daughters are hesitant to take her and states mom has not moved from her recliner d/t pain Asked if she would be able to bring pt in for appt, they state it is very difficult to move her andget her dressed with her history of polio and recent fall Asking if PCP has any recs Reason for Disposition Patient sounds very sick or weak to the triager Protocols used: [id number] * Telephone Encounter - Alicia Sultana - 12/08/2024 10:55 AM EDT Patient's daughter Juan is calling Sahra Guy MD today with concern regarding patient having nausea and barely eating Patient has been identified by name and birthdate. Duration of symptoms: 5 days Please return call to daughter Juan [phone] Was an appointment scheduled: No Closing statement: Symptom Call: Thank you for calling [facility], your call is very important. A nurse will call in approximately 2-4 hours during business hours. If this is an emergency, please contact 911. Alicia Sultana documented in this encounterSuburban [facility]05-08-2025 Miscellaneous Notes* Telephone Encounter - Adonay Marquez LPN - 12/08/2024 1:34 PM EDT Please see triage encounter 12/08/24 * Telephone Encounter - Adonay Marquez LPN - 12/07/2024 5:03 PM EDT Called and spoke with pt and daughter Juan. Stated they will flower picker medication. Pt would like to know how long it will take for muscle to recover. Please advise. * Telephone Encounter - Sahra Guy MD - 12/07/2024 4:52 PM EDT The following approved medication requests have been transmitted electronically. Requested Prescriptions Signed Prescriptions Disp Refills lidocaine (LIDODERM) 5 % 30 patch 2 Sig: Apply 1 patch as directed once daily. REMOVE AFTER 12 HOURS. Authorizing Provider: SAHRA GUY Pharmacy Information Pharmacy Address Telephone [facility]/pharmacy #[id number] [place] [address] Sahra Guy MD * Telephone Encounter - Uriel Stover - 12/07/2024 3:18 PM EDT Patient's daughter is calling that the Rx Lidocaine is not covered for the 4% but the 5% is. She isasking if this can be re-ordered as such and sent to [facility] while she is in the [facility] today. Please call Juan if the Rx is being changed/sent. [phone] documented in this encounterSuburban [facility]05-[facility] Telephone encounter Note * Telephone Encounter - Adonay Marquez LPN - 12/08/2024 1:34 PM EDT Please see triage encounter 12/08/24 [facility]05-08-2025 Telephone encounter Note* Telephone Encounter - Adonay Marquez LPN - 12/08/2024 1:33 PM EDT PA submitted. Response pending. [facility]05-08-2025 Telephone encounter Note* Telephone Encounter - Corrine Lopez RN - 12/08/2024 1:30 PM EDT Called Juan at [phone]-left detailed message on identified VM with PCP message below. Called patient at [phone] -no answer. VM not set up-could not leave message. Corrine Lopez RN [facility]05-08-2025 Telephone encounter Note* Telephone Encounter - Sahra Guy MD - 12/08/2024 1:20 PM EDT She should go to ER by ambulance. May have kidney infection causing back pain, sounds like she is dehydrated. Sahra Guy MD [facility]05-08-2025 Telephone encounter Note* Telephone Encounter - Alondra Villalta RN - 12/08/2024 12:52 PM EDT Called and spoke with Juan and her [...] given that there is no known cause fornausea and it is not improving Daughters are hesitant to take her and states mom has not moved from her recliner d/t pain Asked if she would be able to bring pt in for appt, they state it is very difficult to move her andget her dressed with her history of polio and recent fall Asking if PCP has any recs Reason for Disposition Patient sounds very sick or weak to the triager Protocols used: [id number] [facility]05-08-2025 Telephone encounter Note* Telephone Encounter - Alicia Sultana - 12/08/2024 10:55 AM EDT Patient's daughter Juan is calling Sahra Guy MD today with concern regarding patient having nausea and barely eating Patient has been identified by name and birthdate. Duration of symptoms: 5 days Please return call to daughter Juan [phone] Was an appointment scheduled: No Closing statement: Symptom Call: Thank you for calling [facility], your call is very important. A nurse will call in approximately 2-4 hours during business hours. If this is an emergency, please contact 911. Alicia Sultana [facility]05-08-2025 Telephone encounter Note* Telephone Encounter - Norma Long - 12/08/2024 10:19 AM EDT Patient daughterJuan is calling Sahra Guy MD today to request a prior authorization forthe lidocaine 5% per pharmacy [facility] [place] on [address] Please call daughter with updates on this PA Patient has been identified by name and birthdate. Person calling: daughter: Juan Call patient daughter Juan [phone] (home) [phone] (cell) Was an appointment scheduled: No Closing statement: Prior Auth needed for the Lidocaine Norma [facility]05-07-2025 Telephone encounter Note* Telephone Encounter - Adonay Marquez LPN - 12/07/2024 5:03 PM EDT Called and spoke with pt and daughter Juan. Stated they will flower picker medication. Pt would like to know how long it will take for muscle to recover. Please advise. [facility]05-07-2025 Telephone encounter Note* Telephone Encounter - Sahra Guy MD - 12/07/2024 4:52 PM EDT The following approved medication requests have been transmitted electronically. Requested Prescriptions Signed Prescriptions Disp Refills lidocaine (LIDODERM) 5 % 30 patch 2 Sig: Apply 1 patch as directed once daily. REMOVE AFTER 12 HOURS. Authorizing Provider: SAHRA GUY Pharmacy Information Pharmacy Address Telephone [facility]/pharmacy #[id number] [place] [address] Sahra Guy MD [facility]05-07-2025 Telephone encounter Note* Telephone Encounter - Uriel Stover - 12/07/2024 3:18 PM EDT Patient's daughter is calling that the Rx Lidocaine is not covered for the 4% but the 5% is. She isasking if this can be re-ordered as such and sent to [facility] while she is in the [facility] today. Please call Juan if the Rx is being changed/sent. [phone] [facility]05-06-2025 Telephone encounter Note* Telephone Encounter - Adonay Marquez LPN - 12/06/2024 5:43 PM EDT Called and spoke with Nurse Anais. Anais is new but she believes that yes a mobile xray services comes.Faxed over xray orders and lidocaine order. Called and left VM with pt contact Juan. Called andnotified pt. [facility]05-06-2025 Telephone encounter Note* Telephone Encounter - Sahra Guy MD - 12/06/2024 5:19 PM EDT The following approved medication requests have been transmitted electronically. Requested Prescriptions Signed Prescriptions Disp Refills lidocaine HCL 4 % ptmd 60 patch 1 Sig: Apply to painful area once daily, remove after 12 hours Can they do a portable x ray at the facility ? Sahra Guy MD [facility]05-06-2025 Telephone encounter Note* Telephone Encounter - Torri Salazar - 12/06/2024 1:23 PM EDT Patient is returning call and states she fell on Thursday at home (assisted Living), and has increaseback pain since the fall, she is aware of x-rays orders but states her back hurts so bad to even get dress, She is also aware Voice Mail is full and will clear it.Please advise the patient. [facility]05-05-2025 Telephone encounter Note* Telephone Encounter - Adonay Marquez LPN - 12/05/2024 4:37 PM EDT Received request for orders for lidocaine patches or [facility]. Please advise. [facility]05-05-2025 Telephone encounter Note* Telephone Encounter - Malika Sheikh LPN - 12/05/2024 4:08 PM EDT Mailbox is full. No message left [facility]05-05-2025 Telephone encounter Note* Telephone Encounter - Sahra Guy MD - 12/05/2024 1:20 PM EDT Has she had the lumbar x rays? Order placed in Sep. Back issues handled through spine or pain managemtn department not regular ortho Encounter Diagnosis ICD-10-CM 1. Acute left-sided low back pain with left-sided sciatica M54.42 CONSULT TO MUSC/SPINE/OCC MED Sahra Guy MD [facility]05-02-2025 Telephone encounter Note* Telephone Encounter - Wanda Neely RN - 12/02/2024 5:02 PM EDT Answer Assessment - Initial Assessment Questions Requesting a consult to Orthopedics The rehab didn't do anything for the Sciatica And they recommended a cortisone injection. Protocols used: Information Only Call - No [id number] [facility] Work Phone: 1(691) 527-842204-30-2025 NoteHNO ID: [id number] Author: JOAQUIN CHILDRESS CPhT Service: ? Author Type: Clamper Type: Progress Notes Filed: 11/30/2024 09:12 Note Text: Patient is identified through a medication adherence outreach initiative based on pharmacy claims data from: [facility] Medication Adherence Category: Diabetes First Review Attribution Status: Correct Attribution Medication(s) Metformin 500 mg Medication Status per portal/Epic "Reconcile Dispense": Filled late - Within 7 days after next fill date Date Filled (MM/DD): 11/25/24 due 11/21/24 Day Supply: 90 Medication Status per Profile Review: No issues per profile review Patient appropriate for outreach? No Reason patient not appropriate for outreach:Patient filled on time / no adherence concerns to be addressed Joaquin Childress CPhT [facility] History of Present illness Narrative* Joaquin Childress CPhT - 11/30/2024 9:11 AM EDT Patient is identified through a medication adherence outreach initiative based on pharmacy claims data from: [employer] Medication Adherence Category: Diabetes First Review Attribution Status: Correct Attribution Medication(s) Metformin 500 mg Medication Status per portal/Epic "Reconcile Dispense": Filled late - Within 7 days after next filldate Date Filled (MM/DD): 11/25/24 due 11/21/24 Day Supply: 90 Medication Status per Profile Review: No issues per profile review Patient appropriate for outreach? No Reason patient not appropriate for outreach:Patient filled on time / no adherence concerns to be addressed Joaquin Childress CPhT [facility] Care Pharmacy Team documented in this encounter[facility]25 NotePatient Outreach (PHPOHE) TENA CANNON ([id number]) 1940 F Date Time Provider Department 11/30/24 SAHRA GUY PHPOHE During your visit today, we recorded the following information about you: Joaquin Childress CPhT 11/30/2024 9:12 AM Signed Patient is identified through a medication adherence outreach initiative based on pharmacy claims data from: [employer] Medication Adherence Category: Diabetes First Review Attribution Status: Correct Attribution Medication(s) Metformin 500 mg Medication Status per portal/AutoeBid "Reconcile Dispense": Filled late - Within 7 days after [...] - Diarrhea 8 - GI Upset Comments: "extreme diarrhea" VIOXX (ROFECOXIB) 05/12/2005 5 - Intolerance Comments: "Makes capillaryblood vessels break" NOVOCAIN (PROCAINE HCL) 01/13/2024 5 - Intolerance Comments: headaches OMEGA-3 FISH OIL (OMEGA-3 FATTY A*05/05/2007 5 - Intolerance Comments: bleeding in eye ADVIL (IBUPROFEN) 05/28/2005 5 - Intolerance Comments: "Makes capillary blood vessels bread" ASA (SALICYLATES) 05/28/2005 5 - Intolerance Comments: "Makes capillary blood vessels break" Date Reviewed: 09/16/2024 Reviewed by: Malika Sheikh [...] (LIQUID TEARS OPHTHALMIC) Use in eyes. 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 Placed in provider's inbox for review. Route to [place] for faxing [facility]03-24-2025 Miscellaneous Notes* Telephone Encounter - Malika Sheikh LPN - 10/24/2024 3:31 PM EDT Received 10/21/2024 from [facility]. Placed in provider's inbox for review. Route to [place] for faxing documented in this encounterSub[facility]03[facility] Telephone encounter Note * Telephone Encounter - Adonay Marquez LPN - 10/19/2024 5:26 PM EDT Received orders from [facility]. Placed in provider's inbox for review. Route to [place] fax [facility]03-19-2025 Miscellaneous Notes* Telephone Encounter - Adonay Marquez LPN - 10/19/2024 5:26 PM EDT Received orders from [facility]. Placed in provider's inbox for review. Route to [place] fax documented in this encounterSub[facility]03[facility] Telephone encounter Note * Telephone Encounter - Adonay Marquez LPN - 10/12/2024 4:27 PM EDT Verbal order given [facility]03-12-2025 Miscellaneous Notes* Telephone Encounter - Adonay Marquez LPN - 10/12/2024 4:27 PM EDT Verbal order given * Telephone Encounter - Leonid Leal APRN.CNP - 10/12/2024 4:17 PM EDT Yes, please give verbal order Leonid Leal APRN.CNP * Telephone Encounter - Cris Rascon - 10/12/2024 2:02 PM EDT Tena is calling Sahra Guy MD today with concern regarding PT Eval Physical therapy once a week for eight weeks. Patient has been identified by name and birthdate. Duration of symptoms: N/A Person calling: [facility] Physical therapy Closing statement: Results or non-symptom based questions: Thank you for calling [facility], your call will be returned within the next business day. Cris Boucher documented in this encounterSub[facility]03-[facility]-20[facility] Telephone encounter Note * Telephone Encounter - Leonid Leal APRN.CNP - 10/12/2024 4:17 PM EDT Yes, please give verbal order Leonid Leal APRN.CNP [facility]03-12-2025 Telephone encounter Note* Telephone Encounter - Cris Rascon - 10/12/2024 2:02 PM EDT Tena is calling Sahra Guy MD today with concern regarding PT Eval Physical therapy once a week for eight weeks. Patient has been identified by name and birthdate. Duration of symptoms: N/A Person calling: [facility] Physical therapy Closing statement: Results or non-symptom based questions: Thank you for calling [facility], your call will be returned within the next business day. Cris Boucher [facility]03-11-2025 Telephone encounter Note* Telephone Encounter - Malika Sheikh LPN - 10/11/2024 1:59 PM EDT Verbal order given to per Dr Guy's original order for OT. [facility]03-11-2025 Miscellaneous Notes* Telephone Encounter - Malika Sheikh LPN - 10/11/2024 1:59 PM EDT Verbal order given to aKthy per Dr Guy's original order for OT. * Telephone Encounter - Rachel Stacy - 10/11/2024 1:13 PM EDT Jonathon from [facility] is calling for a verbal order for patient's home health care physical therapy. documented in this encounterSub[facility] Telephone encounter Note * Telephone Encounter - Rachel Stacy - 10/11/2024 1:13 PM EDT Jonathon from [facility] is calling for a verbal order for patient's home health care physical therapy. [facility] Work Phone: 1(185) 984-422803-11-2025 Telephone encounter Note* Telephone Encounter - Malika Sheikh LPN - 10/11/2024 12:49 PM EDT Orders faxed. [facility]03-11-2025 Miscellaneous Notes* Telephone Encounter - Malika Sheikh LPN - 10/11/2024 12:49 PM EDT Orders faxed. * Telephone Encounter - Ninfa Erwin RN - 10/11/2024 10:21 AM EDT Patient called and LVM on Nurse Triage line; 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 Muscle strain of lower leg, unspecified laterality, initial encounter S86.919A CONSULT TO PHYSICAL THERAPY CONSULT TO [employer] EQUIPMENT TECHNICIAN 3. Falls frequently R29.6 CONSULT TO [employer] EQUIPMENT TECHNICIAN Please fax order , does she know which agency comes to her facility Sahra Guy MD * Telephone Encounter - Malika Sheikh LPN - 10/06/2024 4:02 PM EST Patient wanting an OT referral to educate and advise patient on ways not to fall in the bathroom. * Telephone Encounter - Sahra Guy MD - 10/06/2024 10:33 AM EST Generally speaking, physical therapy addresses lower extremity issue. Happy to initiate referral Therapy order placed. 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 Muscle strain of lower leg, unspecified laterality, initial encounter S86.919A CONSULT TO PHYSICAL THERAPY Fax to facility Sahra Guy MD * Telephone Encounter - Tete Melchor - 10/06/2024 9:10 AM EST Tena is calling Sahra Guy MD today [...] calling: self Call patient at: at home [phone] (home) [phone] (cell) Was an appointment scheduled: No Closing statement: Results or non-symptom based questions: Thank you for calling [facility], your call will be returned within the next business day. Tete Boucher documented in this encounterSub[facility]03-[facility]-20[facility] Telephone encounter Note * Telephone Encounter - Ninfa Erwin RN - 10/11/2024 10:21 AM EDT Patient called and LVM on Nurse Triage line; 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 Muscle strain of lower leg, unspecified laterality, initial encounter S86.919A CONSULT TO PHYSICAL THERAPY CONSULT TO [employer] EQUIPMENT TECHNICIAN 3. Falls frequently R29.6 CONSULT TO [employer] EQUIPMENT TECHNICIAN Please fax order , does she know which agency comes to her facility Sahra Guy MD [facility]03-06-2025 Telephone encounter Note* Telephone Encounter - Malika Sheikh LPN - 10/06/2024 4:02 PM EST Patient wanting an OT referral to educate and advise patient on ways not to fall in the bathroom. [facility]03-06-2025 Telephone encounter Note* Telephone Encounter - Sahra Guy MD - 10/06/2024 10:33 AM EST Generally speaking, physical therapy addresses lower extremity issue. Happy to initiate referral Therapy order placed. 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 Muscle strain of lower leg, unspecified laterality, initial encounter S86.919A CONSULT TO PHYSICAL THERAPY Fax to facility Sahra Guy MD [facility]03-06-2025 Telephone encounter Note* Telephone Encounter - eTte Melchor - 10/06/2024 9:10 AM EST Tena is calling Sahra Guy MD today [...] calling: self Call patient at: at home [phone] (home) [phone] (cell) Was an appointment scheduled: No Closing statement: Results or non-symptom based questions: Thank you for calling [facility], your call will be returned within the next business day. Tete Boucher [facility]02-24-2025 Telephone encounter Note* Telephone Encounter - Curtis Ruiz RN - 09/26/2024 5:22 PM EST Spoke to patient who was advised of provider's message and verbalized understanding. [facility]02-24-2025 Miscellaneous Notes* Telephone Encounter - Curtis Ruiz RN - 09/26/2024 5:22 PM EST Spoke to patient who was advised of provider's message and verbalized understanding. * Telephone Encounter - Sahra Guy MD - 09/26/2024 5:06 PM EST L hip x ray Lumbar x ray ordered. Tramadol Rx sent. The following approved medication requests have been transmitted electronically. Requested Prescriptions Signed Prescriptions Disp Refills traMADol (ULTRAM) 50 mg tablet 28 tablet 0 Sig: Take 1 tablet by mouth every 4 hours as needed for pain for up to 7 days. Pharmacy Information Pharmacy Address Telephone [facility]/pharmacy #[id number] [address] [place] [address] Sahra Guy MD * Telephone Encounter - Cris Rascon - 09/26/2024 2:02 PM EST Patient is calling back in asking if orders for xray were put in? Wants to know what kind of pain medication Dr. Guy would prescribe she is not wantiing to get something strong. Please give patient a call back. Cris Boucher * Telephone Encounter - Malika Sheikh LPN - 09/26/2024 10:23 AM EST LM for patient to call office. * Telephone Encounter - Sahra Guy MD - 09/26/2024 9:26 AM EST Does she need some pain meds? Sahra Guy MD * Telephone Encounter - Corrine Lopez RN - 09/26/2024 8:45 AM EST Triaged patient-see below. Ongoing hip pain past [...] Initial Assessment Questions 1. LOCATION and RADIATION: "Where is the pain located?" Left hip 2. QUALITY: "What does the pain feel like?" (e.g., sharp, dull, aching, burning) sharp 3. SEVERITY: "How bad is the pain?" "What does it keep you from doing?" (Scale 1-10; or mild, moderate, severe) - MILD (1-3): Doesn't interfere with normal activities. - MODERATE (4-7): Interferes with normal activities (e.g., work or school) or awakens from sleep, limping. - SEVERE (8-10): Excruciating pain, unable to do any normal activities, unable to walk. moderate 4. ONSET: "When did the pain start?" "Does it come and go, or is it there all the time?" 1 month 5. WORK OR EXERCISE: "Has there been any recent work or exercise that involved this part of the body?" 6. CAUSE: "What do you think is causing the hip pain?" 7. AGGRAVATING FACTORS: "What makes the hip pain worse?" (e.g., walking, climbing stairs, running) 8. OTHER SYMPTOMS: "Do you have any other symptoms?" (e.g., back pain, pain shooting down leg, fever, rash) Radiates to toes Protocols used: Hip [id number] * Telephone Encounter - Tete Melchor - 09/23/2024 4:24 PM EST Tena is calling Sahra Guy MD today with left hip pain. It is radiating down to her toe; describes anterior pain. She is seeking medical advice. Please call today. Patient has been identified by name and birthdate. Duration of symptoms: N/A Person calling: self Call patient at: at home [phone] (home) [phone] (cell) Was an appointment scheduled: No Closing statement: Symptom Call: Thank you for calling [facility], your call is very important. A nurse will call in approximately 2-4 hours during business hours. If this is an emergency, please contact 911Dagmar Boucher documented in this encounterSub[facility]02[facility] Telephone encounter Note * Telephone Encounter - Sahra Guy MD - 09/26/2024 5:06 PM EST L hip x ray Lumbar x ray ordered. Tramadol Rx sent. The following approved medication requests have been transmitted electronically. Requested Prescriptions Signed Prescriptions Disp Refills traMADol (ULTRAM) 50 mg tablet 28 tablet 0 Sig: Take 1 tablet by mouth every 4 hours as needed for pain for up to 7 days. Pharmacy Information Pharmacy Address Telephone [facility]/pharmacy #[id number] [place] [address] Sahra Guy MD [facility]02-24-2025 Telephone encounter Note* Telephone Encounter - Cris Rascon - 09/26/2024 2:02 PM EST Patient is calling back in asking if orders for xray were put in? Wants to know what kind of pain medication Dr. Guy would prescribe she is not wantiing to get something strong. Please give patient a call back. Cris Boucher [facility]02-24-2025 Telephone encounter Note* Telephone Encounter - Mlaika Sheikh LPN - 09/26/2024 10:23 AM EST LM for patient to call office. [address]24-2025 Telephone encounter Note* Telephone Encounter - Sahra Guy MD - 09/26/2024 9:26 AM EST Does she need some pain meds? Sahra Guy MD [address]24-2025 Telephone encounter Note* Telephone Encounter - Corrine Lopez RN - 09/26/2024 8:45 AM EST Triaged patient-see below. Ongoing hip pain past [...] Initial Assessment Questions 1. LOCATION and RADIATION: "Where is the pain located?" Left hip 2. QUALITY: "What does the pain feel like?" (e.g., sharp, dull, aching, burning) sharp 3. SEVERITY: "How bad is the pain?" "What does it keep you from doing?" (Scale 1-10; or mild, moderate, severe) - MILD (1-3): Doesn't interfere with normal activities. - MODERATE (4-7): Interferes with normal activities (e.g., work or school) or awakens from sleep, limping. - SEVERE (8-10): Excruciating pain, unable to do any normal activities, unable to walk. moderate 4. ONSET: "When did the pain start?" "Does it come and go, or is it there all the time?" 1 month 5. WORK OR EXERCISE: "Has there been any recent work or exercise that involved this part of the body?" 6. CAUSE: "What do you think is causing the hip pain?" 7. AGGRAVATING FACTORS: "What makes the hip pain worse?" (e.g., walking, climbing stairs, running) 8. OTHER SYMPTOMS: "Do you have any other symptoms?" (e.g., back pain, pain shooting down leg, fever, rash) Radiates to toes Protocols used: Hip [id number] [facility]02-21-2025 Telephone encounter Note* Telephone Encounter - [place] Tete Boucher - 09/23/2024 4:24 PM EST Tena is calling Sahra Guy MD today with left hip pain. It is radiating down to her toe; describes anterior pain. She is seeking medical advice. Please call today. Patient has been identified by name and birthdate. Duration of symptoms: N/A Person calling: self Call patient at: at home [phone] (home) [phone] (cell) Was an appointment scheduled: No Closing statement: Symptom Call: Thank you for calling [facility], your call is very important. A nurse will call in approximately 2-4 hours during business hours. If this is an emergency, please contact 911. Tete Boucher [facility]02-21-2025 Telephone encounter Note* Telephone Encounter - Malika Sheikh LPN - 09/23/2024 10:05 AM EST Received 09/23/2024 from [facility] Placed in provider's inbox for review. Route to [place] for faxing. [facility]02-21-2025 Miscellaneous Notes* Telephone Encounter - Malika Sheikh LPN - 09/23/2024 10:05 AM EST Received 09/23/2024 from [facility] Placed in provider's inbox for review. Route to [place] for faxing. documented in this encounterSub[facility]02-14-2025 NoteHNO ID: [id number] Author: SAHRA GUY MD Service: ? Author [...] Scribe Attestation: By signing my name below, I, Johan Marin, attest that this documentation has been prepared [...] the record reflects my (more content not included)...[facility]02-14-2025 History of Present illness Narrative* Sahra Guy MD - 09/16/2024 11:29 AM EST CHIEF COMPLAINT Patient presents with: Follow Up: Blood work sciatic pain left HISTORY OF PRESENT ILLNESS Tena Cannon is a 84 year old female who presents here today for follow up. I last saw this patienton 08/23/2024. Fall Incident - Fell about 1 [...] 16, 2024 12:44 PM [facility] Telephone encounter Note * Telephone Encounter - Uriel Stover - 09/09/2024 10:56 AM EST Patient called back regarding orders needed. Orders were faxed to : [facility] [phone] [facility] Miscellaneous Notes* Telephone Encounter - Uriel Stover - 09/09/2024 10:56 AM EST Patient called back regarding orders needed. Orders were faxed to : [facility] [phone] * Telephone Encounter - Cris Rascon - 09/09/2024 10:45 AM EST Tena is calling Sahra Guy MD today with concern regarding Orders Patient is there to get Lab work. If you can please FAX lab orders to them. FAX [phone]. Patient has been identified by name and birthdate. Duration of symptoms: N/A Person calling: Daphnie Forte Was an appointment scheduled: No Closing statement: Results or non-symptom based questions: Thank you for calling [facility], your call will be returned within the next business day. Cris Boucher documented in this encounterSub[facility] Telephone encounter Note * Telephone Encounter - Cris Rascon - 09/09/2024 10:45 AM EST Tena is calling Sahra Guy MD today with concern regarding Orders Patient is there to get Lab work. If you can please FAX lab orders to them. FAX [phone]. Patient has been identified by name and birthdate. Duration of symptoms: N/A Person calling: Daphnie Forte Was an appointment scheduled: No Closing statement: Results or non-symptom based questions: Thank you for calling [facility], your call will be returned within the next business day. Cris Boucher [facility]02-[facility]20[facility] Telephone encounter Note* Telephone Encounter - Inga Castellano - 09/06/2024 11:37 AM EST Called and scheduled pt f/u. She wanted PCP to have results prior to appt so she is getting lab drawn in [place]. [facility]02-[facility]25 Miscellaneous Notes* Telephone Encounter - Inga Castellano - 09/06/2024 11:37 AM EST Called and scheduled pt f/u. She wanted PCP to have results prior to appt so she is getting lab drawn in [place]. * Telephone Encounter - Sahra Guy MD - 09/05/2024 10:04 AM EST We can see her any time and do the repeat lab . Sahra Guy MD * Telephone Encounter - Adonay Marquez LPN - 09/02/2024 4:00 PM EST Called and informed pt of pcp interpretation and recommendation. Pt would like to schedule a followup and have a repeat lab draw in the office. Please assist pt with scheduling * Telephone Encounter - Uriel Stover - 09/02/2024 2:08 PM EST Patient calling requesting a call back from a nurse. [phone] * Telephone Encounter - Malika Sheikh LPN - 09/02/2024 12:17 PM EST LM for patient to call office. She had assisted living nurse call office in separate encounter * Telephone Encounter - Sahra Guy MD - 09/01/2024 3:13 PM EST Lipid shows midley elevated LDL "bad" cholesterol , the hdl cholesterol is quite low. That's a change from previous. Not sure this is a correct value. Don't think we'd do anything different, but could repeat the lab at some point. Blood count OK Sahra Guy MD documented in this encounterSub[facility] Telephone encounter Note * Telephone Encounter - Sahra Guy MD - 09/05/2024 10:04 AM EST We can see her any time and do the repeat lab . Sahra Guy MD [facility]01-31-2025 Telephone encounter Note* Telephone Encounter - Adonay Marquez LPN - 09/02/2024 4:00 PM EST Called and informed pt of pcp interpretation and recommendation. Pt would like to schedule a followup and have a repeat lab draw in the office. Please assist pt with scheduling [facility]01[facility] Telephone encounter Note* Telephone Encounter - Uriel Stover - 09/02/2024 2:08 PM EST Patient calling requesting a call back from a nurse. [phone] [facility]01-[facility] Telephone encounter Note* Telephone Encounter - Malika Sheikh LPN - 09/02/2024 12:17 PM EST LM for patient to call office. She had assisted living nurse call office in separate encounter [facility] Telephone encounter Note* Telephone Encounter - Malika Sheikh LPN - 09/02/2024 12:15 PM EST See previous encounter [facility] Miscellaneous Notes* Telephone Encounter - Malika Sheikh LPN - 09/02/2024 12:15 PM EST See previous encounter * Telephone Encounter - [place] Tete Boucher - 09/02/2024 11:10 AM EST Tena is a patient of Sahra Guy MD today LOBO Garcia called from the [facility] and stated the patient wants to find out her lab test results. Per Radha, the patient administers her own medications so it is fine to speak with the patient, please call her today. Patient has been identified by name and birthdate. Duration of symptoms: N/A Person calling: self Call patient at: on cell [phone] (home) [phone] (cell) Was an appointment scheduled: No Closing statement: Results or non-symptom based questions: Thank you for calling [facility], your call will be returned within the next business day. Tete Boucher documented in this encounterSub[facility] Telephone encounter Note * Telephone Encounter - [place] Tete Boucher - 09/02/2024 11:10 AM EST Tena is a patient of Sahra Guy MD today LOBO Garcia called from the [facility] and stated the patient wants to find out her lab test results. Per Radha, the patient administers her own medications so it is fine to speak with the patient, please call her today. Patient has been identified by name and birthdate. Duration of symptoms: N/A Person calling: self Call patient at: on cell [phone] (home) [phone] (cell) Was an appointment scheduled: No Closing statement: Results or non-symptom based questions: Thank you for calling [facility], your call will be returned within the next business day. Tete Boucher [facility]01-30-[facility] Telephone encounter Note* Telephone Encounter - Sahra Guy MD - 09/01/2024 3:13 PM EST Lipid shows midley elevated LDL "bad" cholesterol , the hdl cholesterol is quite low. That's a change from previous. Not sure this is a correct value. Don't think we'd do anything different, but could repeat the lab at some point. Blood count OK Sahra Guy MD [facility]01[facility] Telephone encounter Note* Telephone Encounter - Adonay Marquez LPN - 09/01/2024 3:10 PM EST Results entered into pt chart. Please advise. [facility]01[facility] Miscellaneous Notes* Telephone Encounter - Adonay Marquez LPN - 09/01/2024 3:10 PM EST Results entered into pt chart. Please advise. * Telephone Encounter - Sahra Guy MD - 09/01/2024 12:06 PM EST No results in scanned docs, do we have them? * Telephone Encounter - Tete Melchor - 08/31/2024 2:09 PM EST Tena is calling Sahra Guy MD today to confirm that her las test results from outside facility were received. She would like to speak with the doctor to discuss the results. Patient has been identified by name and birthdate. Duration of symptoms: N/A Person calling: self Call patient at: at home [phone] (home) [phone] (cell) Was an appointment scheduled: No Closing statement: Results or non-symptom based questions: Thank you for calling [facility], your call will be returned within the next business day. Tete Mora Pss documented in this encounterSub[facility] Telephone encounter Note * Telephone Encounter - Uriel Stover - 09/01/2024 1:21 PM EST Rachel with [employer] is calling Sahra Guy MD today to request this month's Office visit Notes. Faxed to Rachel at fax number [phone] [facility]01[facility] Miscellaneous Notes* Telephone Encounter - Uriel Stover - 09/01/2024 1:21 PM EST Rachel with [employer] is calling Sahra Guy MD today to request this month's Office visit Notes. Faxed to Rachel at fax number [phone] documented in this encounterSub[facility] Telephone encounter Note * Telephone Encounter - Sahra Guy MD - 09/01/2024 12:06 PM EST No results in scanned docs, do we have them? [facility]01-[facility] Telephone encounter Note* Telephone Encounter - Tete Melchor - 08/31/2024 2:09 PM EST Tena is calling Sahra Guy MD today to confirm that her las test results from outside facility were received. She would like to speak with the doctor to discuss the results. Patient has been identified by name and birthdate. Duration of symptoms: N/A Person calling: self Call patient at: at home [phone] (home) [phone] (cell) Was an appointment scheduled: No Closing statement: Results or non-symptom based questions: Thank you for calling [facility], your call will be returned within the next business day. Tete Mora Pss [facility]01-22-2025 Telephone encounter Note* Telephone Encounter - Adonay Marquez LPN - 08/24/2024 10:10 AM EST Received orders from [facility]. Placed in provider's inbox for review. Route to [place] fax [facility]01[facility] Miscellaneous Notes* Telephone Encounter - Adonay Marquez LPN - 08/24/2024 10:10 AM EST Received orders from [employer] [facility]. Placed in provider's inbox for review. Route to [place] fax documented in this encounterSub[facility] Instructions* Patient Instructions* Sahra Guy MD - 08/23/2024 10:30 AM [...] review all the medicines you take, even pbve-nko-wxylxhk medicines. As you get older, the way medicines work in your body can change. Some medicines, or combinations of medicines, can make you sleepy or dizzy andcan cause you to fall. 3. Have your [...] have certain medical conditions. documented in this encounterSub[facility]25 NoteHNO ID: [id number] Author: SAHRA GUY MD Service: ? Author [...] 156/83 Pulse 60 Ht 142.2 cm (4' 8") SpO2 95% BMI 44.26 kg/m? Repeat BP: [...] Obesity, Class III, BMI 40-49.9 (morbid obesity) ([facility]) Comment: Stable. In need of refill Plan: [...] August 23, 2024 10:12 AM Provider Attestation: ISahra MD, personally performed [...] Guy MD August 23, 2024 4:52 PM }[facility]01-21-2025 History of Present illness Narrative* Sahra uGy MD - 08/23/2024 10:12 AM EST Images from the original note were not [...] with patient, and I recommended no further interventionat this time. Cognitive screening Mini Cog Score: 3 Cognitive screening reviewed and No further action needed (score 3-5). Functional Observation Was the patient's timed Up & Go test unsteady or >= 12 seconds? No Advance Care Planning Surrogate decision maker and/or advance care plan documented Measurements BP 156/83 Pulse 60 Ht 142.2 cm (4' 8") SpO2 95% BMI 44.26 kg/m Repeat BP: [...] area. Assessment/Plan Medicare annual wellness visit, subsequent (Z00.00) - Fall avoidance information provided - Personalized prevention plan provided (Z.) Medicare annual wellness visit, subsequent (primary encounter diagnosis) Comment: 83 year old generally healthy female here for medicare visit Plan: As below (E66.01) Obesity, Class III, BMI 40-49.9 (morbid obesity) ([facility]) Comment: Stable. In need of refill Plan: [...] August 23, 2024 10:12 AM Provider Attestation: ISahra MD, personally performed [...] MD August 23, 2024 4:52 PM } * Sahra Guy MD - 08/23/2024 10:08 AM EST Health Risk Assessment Do you exercise for about 20 minutes 3 or more days a week? denies regular aerobic exercise. How often do you eat food that is healthy (such as fresh fruits, fish and vegetables) instead of unhealthy food (such as fried foods, sweets and "junk food")? most of the time. List of current specialists seen: Optometry Does patient see eye doctor routinely? Yes Do you have an advance directive, such as health care power of compliance attorney or living will? yes Would you like [...] bars in the bathroom, lack of handrails onthe stairs or have poor lighting? No Hearing Evaluation: wears hearing aids Sahra Guy MD Any memory concerns? Yes documented in this encounterSub[facility]25 NoteHNO ID: [id number] Author: SAHRA GUY MD Service: ? Author Type: Physician Type: Progress Notes Filed: 08/23/2024 16:55 Note Text: Health Risk Assessment Do you exercise for about 20 minutes 3 or more days a week? denies regular aerobic exercise. How often do you eat food that is healthy (such as fresh fruits, fish and vegetables) instead of unhealthy food (such as fried foods, sweets and "junk food")? most of the time. List of current specialists seen: Optometry Does patient see eye doctor routinely? Yes Do you have an advance directive, such as health care power of compliance attorney or living will? yes Would you like [...] aids Sahra Guy MD Any memory concerns? [facility] Tele[facility] encounter Note* Telephone Encounter - Adonay Marquez LPN - 08/22/2024 3:37 PM EST Noted. [facility]01-[facility] Miscellaneous Notes* Telephone Encounter - Adonay Marquez LPN - 08/22/2024 3:37 PM EST Noted. * Telephone Encounter - Melissa Villegasedison Norma - 08/22/2024 11:03 AM EST Tena is calling Sahra Guy MD today is now using [employer] with a new insurance company( using the [...] calling: self Call patient at: at home [phone] (home) [phone] (cell) Was an appointment scheduled: Yes: Date/Time: 08/23/[address] Guy Closing statement: Results or non-symptom based questions: Thank you for calling [facility], your call will be returned within the next business day. Norma Monroe documented in this encounterSub[facility] Telephone encounter Note * Telephone Encounter - Norma Long - 08/22/2024 11:03 AM EST Tena is calling Sahra Guy MD today is now using [employer] with a new insurance company( using the [...] calling: self Call patient at: at home [phone] (home) [phone] (cell) Was an appointment scheduled: Yes: Date/Time: 08/23/[address] Guy Closing statement: Results or non-symptom based questions: Thank you for calling [facility], your call will be returned within the next business day. Norma Monroe [facility]01-15-2025 Telephone encounter Note* Telephone Encounter - Malika Sheikh LPN - 08/17/2024 10:57 AM EST Verbal order given for PT and OT. Per home health patient did not know that she had an appointment for the Call placed to patient and voicemail left stating time and date of appointment. Message left that visit is needed for insurance to authorize therapy [facility]01-[facility]-2025 Miscellaneous Notes* Telephone Encounter - Malika Sheikh LPN - 08/17/2024 10:57 AM EST Verbal order given for PT and OT. Per home health patient did not know that she had an appointment for the . Call placed to patient and voicemail left stating time and date of appointment. Message left that visit is needed for insurance to authorize therapy * Telephone Encounter - Leonid Leal APRN.CNP - 08/17/2024 10:48 AM EST Yes, please give verbal order on behalf of Dr. Malena Leal APRN.PHARMACIST HELPER * Telephone Encounter - Alicia Sultana - 08/17/2024 9:23 AM EST Rachel from [employer] calling back and states that since patient is scheduled with Dr. Guy on 08/23 they will be able to use his name as a certifying provider. [employer] asking for a verbal order from Dr. Guy. Please return call to [phone] * Telephone Encounter - Adonay Marquez LPN - 08/15/2024 5:04 PM EST Orders for physical therapy are in correlation to recent visit with Leonid Leal where pt was seen for pulled muscle/sciatic pain. Spoke with Rachel Ramos states the provider who had face to face with pt for the acute reason, has to be the provider who sends the order and agrees to follow theplan of care pertaining to physical therapy. However, Rachel believes because providers name on the orders does not match the name in the PECOS system; Your new name must be changed in the PECOS Administrative Interface to be reflected in Internet-based PECOS. Please contact your Medicare-fee for service contractor to change your name." Copied and pasted from https://pecos.cms.[facility].gov/pecos/help-main/faq.jsp Please advise. * Telephone Encounter - Leonid Leal APRN.CNP - 08/15/2024 3:00 PM EST Please clarify what therapy orders are for, I saw her acute back pain, did not address her chronic issues but can send most recent office visit note. If that won't work, needs to see Dr. Guy for follow-up to address chronic issues. Also clarify about provider's name change. Leonid Leal APRN.CNP * Telephone Encounter - Uriel Stover - 08/15/2024 2:13 PM EST Rachel with [facility] is calling regarding Home PT and OT. Regulations are that it be from theprovider who had a face to face. Stated Leonid Leal would need to certify the care since she had aface to face with her. She also stated it is coming up as Leonid Roach in the system (PICOS would have to be updated). With the different last name a red flag will happen. Please call Rachel at [phone] documented in this encounterSub[facility] Telephone encounter Note * Telephone Encounter - Leonid Leal APRN.CNP - 08/17/2024 10:48 AM EST Yes, please give verbal order on behalf of Dr. Malena Leal APRN.CNP [facility]01-[facility]-2025 Telephone encounter Note* Telephone Encounter - Alicia Sultana - 08/17/2024 9:23 AM EST Rachel from [facility] calling back and states that since patient is scheduled with Dr. Guy on 08/23 they will be able to use his name as a certifying provider. [employer] asking for a verbal order from Dr. Guy. Please return call to [phone] [facility]01-13-2025 Telephone encounter Note* Telephone Encounter - Adonay Marquez LPN - 08/15/2024 5:04 PM EST Orders for physical therapy are in correlation to recent visit with Leonid Leal where pt was seen for pulled muscle/sciatic pain. Spoke with Rachel Ramos states the provider who had face to face with pt for the acute reason, has to be the provider who sends the order and agrees to follow theplan of care pertaining to physical therapy. However, Rachel believes because providers name on the orders does not match the name in the PECOS system; Your new name must be changed in the PECOS Administrative Interface to be reflected in Internet-based PECOS. Please contact your Medicare-fee for service contractor to change your name." Copied and pasted from https://pecos.cms.[facility].gov/pecos/help-main/faq.jsp Please advise. [facility]01-[facility] Telephone encounter Note* Telephone Encounter - Leonid Leal APRN.CNP - 08/15/2024 3:00 PM EST Please clarify what therapy orders are for, I saw her acute back pain, did not address her chronic issues but can send most recent office visit note. If that won't work, needs to see Dr. Guy for follow-up to address chronic issues. Also clarify about provider's name change. Leonid Leal APRN.CNP [facility]01-13-2025 Telephone encounter Note* Telephone Encounter - Uriel Stover - 08/15/2024 2:13 PM EST Rachel with [facility] is calling regarding Home PT and OT. Regulations are that it be from theprovider who had a face to face. Stated Leonid Leal would need to certify the care since she had aface to face with her. She also stated it is coming up as Leonid Roach in the system (PICOS would have to be updated). With the different last name a red flag will happen. Please call Rachel at [phone] [facility]01-09-2025 NoteHNO ID: [id number] Author: LEONID LEAL APRN.PHARMACIST HELPER Service: ? Author Type: Nurse Practitioner Type: Progress Notes Filed: 08/11/2024 15:02 Note Text: This note was created using GamerDNAriter. Subjective Tena Cannon is a 83 year [...] took her a while to get it "released". Wears medical alert, called EMS for assistance. [...] Keflex [Cephalexin], Vioxx [Rofecoxib], Novocain [Procaine Hcl], [place]-3 Fish Oil [[place]-3 Fatty Acids-Vitamin E], Advil [Ibuprofen], and Asa [...] alcohol (LIQUID TEARS OPHTHALMIC) Use in eyes. rutin/hesp/bioflav/C/txcatu295 (BIOFLEX ORAL) Take 1 capsule by mouth [...] Age of Onset He (more content not included)...[facility]01-09-2025 History of Present illness Narrative* Leoind Leal APRN.PHARMACIST HELPER - 08/11/2024 1:41 PM EST Images from the original note were not included. This note was created using GamerDNAriter. Subjective Tena Cannon is a 83 year [...] low back pain when she fell and brokeL4 and had sciatica on right side, about [...] took her a while to get it "released". Wears medical alert, called EMS for assistance. [...] Keflex [Cephalexin], Vioxx [Rofecoxib], Novocain [Procaine Hcl], [place]-3 Fish Oil [[place]-3 Fatty Acids-Vitamin E], Advil [Ibuprofen], and Asa [...] mcg tablet Take 1 tablet by mouth oncedaily. prednisoLONE acetate (PRED FORTE, ECONOPRED PLUS) 1 % ophthalmic suspension Use 1 Drop in the left eye twice daily as needed. timolol maleate (TIMOPTIC) 0.5 % ophthalmic solution Use 1 Drop in the left eye every morning. polyvinyl alcohol (LIQUID TEARS OPHTHALMIC) Use in eyes. rutin/hesp/bioflav/C/akompi975 (BIOFLEX ORAL) Take 1 capsule by mouth [...] 200 mg tomorrow night, then 300 mg thenight thereafter depending on symptom relief and stop at 300 mg QHS and report back in 1 week. - gabapentin (NEURONTIN) 100 mg capsule; Take 1 capsule by mouth daily at bedtime for 30 days. Dispense: 30 capsule; Refill: 0 Leonid Leal APRN.PHARMACIST HELPER documented in this encounterSub[facility] Telephone encounter Note * Telephone Encounter - Alondra Villalta RN - 08/11/2024 11:05 AM EST Called and spoke with pt States pain located in left mid back Present 1 week, has not improved Not sure what caused it but notices it is much worse when she lays down to sleep Sleeps on side and feels like the muscle is pulling when she lays down. Also radiates down leg whenlaying down Taking Tylenol- not sure if it [...] Denies 11. : N/a Protocols used: Back Dlea-CGODV-HN [facility]01-09-2025 Miscellaneous Notes* Telephone Encounter - Alondra Villalta RN - 08/11/2024 11:05 AM EST Called and spoke with pt States pain located in left mid back Present 1 week, has not improved Not sure what caused it but notices it is much worse when she lays down to sleep Sleeps on side and feels like the muscle is pulling when she lays down. Also radiates down leg whenlaying down Taking Tylenol- not sure if it [...] Denies 11. : N/a Protocols used: Back Uise-IHOCM-OF * Telephone Encounter - Cris Rascon - 08/11/2024 8:55 AM EST Tena is calling Sahra Guy MD today with concern regarding Muscle Aches/Pulled muscle Left side above the curve of her but states that she thinks she pulled a muscle and thought that this would get better but it is not. Patient has been identified by name and birthdate. Duration of symptoms: 1 weeks Person calling: self Call patient at: at home [phone] (home) [phone] (cell) Was an appointment scheduled: No Closing statement: Symptom Call: Thank you for calling [facility], your call is very important. A nurse will call in approximately 2-4 hours during business hours. If this is an emergency, please contact 911. Cris Boucher documented in this encounterSub[facility]01-[facility] Telephone encounter Note * Telephone Encounter - Cris Rascon - 08/11/2024 8:55 AM EST Tena is calling Sahra Guy MD today with concern regarding Muscle Aches/Pulled muscle Left side above the curve of her but states that she thinks she pulled a muscle and thought that this would get better but it is not. Patient has been identified by name and birthdate. Duration of symptoms: 1 weeks Person calling: self Call patient at: at home [phone] (home) [phone] (cell) Was an appointment scheduled: No Closing statement: Symptom Call: Thank you for calling [facility], your call is very important. A nurse will call in approximately 2-4 hours during business hours. If this is an emergency, please contact 911. Cris Boucher [facility]12-03-2024 Telephone encounter Note* Telephone Encounter - Uriel Stover - 07/05/2024 3:29 PM EST Patient has been identified by name and date of : Yes, Patient phones for refill(s): Requested Prescriptions Pending Prescriptions Disp Refills esomeprazole (NEXIUM) 40 mg capsule 90 capsule 2 Sig: TAKE 1 CAPSULE DAILY BEFOREBREAKFAST. 1/2 HOUR BEFORE A MEAL Date of last office visit in primary care: 12/10/2023 Date of next office visit in primary care: 08/23/2024 [facility] Mail order Please advise. Thank you. Uriel Stover. [facility]12-03-2024 Miscellaneous Notes* Telephone Encounter - Uriel Stover - 07/05/2024 3:29 PM EST Patient has been identified by name and date of : Yes, Patient phones for refill(s): Requested Prescriptions Pending Prescriptions Disp Refills esomeprazole (NEXIUM) 40 mg capsule 90 capsule 2 Sig: TAKE 1 CAPSULE DAILY BEFOREBREAKFAST. 1/2 HOUR BEFORE A MEAL Date of last office visit in primary care: 12/10/2023 Date of next office visit in primary care: 08/23/2024 [facility] Mail order Please advise. Thank you. Uriel Stover. documented in this encounterSub[facility]11-[facility] Telephone encounter Note * Telephone Encounter - Adonay Marquez LPN - 06/23/2024 3:17 PM EST Received DNR order from [employer]. Placed in provider's inbox for review. Route to [place] fax [facility]11-21-2024 Miscellaneous Notes* Telephone Encounter - Adonay Marquez LPN - 06/23/2024 3:17 PM EST Received DNR order from [employer]. Placed in provider's inbox for review. Route to [place] fax documented in this encounterSub[facility]11-18[facility]24 Telephone encounter Note * Telephone Encounter - Sahra Guy MD - 06/20/2024 5:27 PM EST The following approved medication requests have been transmitted electronically. Requested Prescriptions Signed Prescriptions Disp Refills oxybutynin ER (DITROPAN XL) 10 mg 24 hr tablet 90 tablet 1 Sig: Take 1 tablet by mouth once daily. Authorizing Provider: SAHRA GUY MD [facility]11-18-2024 Miscellaneous Notes* Telephone Encounter - Sahra Guy MD - 06/20/2024 5:27 PM EST The following approved medication requests have been transmitted electronically. Requested Prescriptions Signed Prescriptions Disp Refills oxybutynin ER (DITROPAN XL) 10 mg 24 hr tablet 90 tablet 1 Sig: Take 1 tablet by mouth once daily. Authorizing Provider: SAHRA GUY MD * Telephone Encounter - Adonay Marquez LPN - 06/20/2024 5:23 PM EST Prescription Refill Information The patient has been [...] 20, 2024 5:23 PM documented in this encounterSub[facility]-18[facility]24 Telephone encounter Note * Telephone Encounter - Adonay Marquez LPN - 06/20/2024 5:23 PM EST Prescription Refill Information The patient has been [...] Marquez LPN June 20, 2024 5:23 PM [facility]11-01-2024 Telephone encounter Note* Telephone Encounter - Malika Sheikh LPN - 06/03/2024 8:54 AM EDT Weights have been declined. Patient in motorized wheelchair. Voicemail left for patient. [facility]11-01-2024 Miscellaneous Notes* Telephone Encounter - Malika Sheikh LPN - 06/03/2024 8:54 AM EDT Weights have been declined. Patient in motorized wheelchair. Voicemail left for patient. * Telephone Encounter - Sahra Guy MD - 06/02/2024 5:13 PM EDT 197 lbs., Sahra Guy MD * Telephone Encounter - Cris Rascon - 06/02/2024 10:15 AM EDT Tena is calling Sahra Guy MD today with concern regarding Question/Weight Patient is calling in and wanting to get her weight from recent visits; states that she needs to give this to the Assisted Living that she is at. Patient has been identified by name and birthdate. Duration of symptoms: N/A Person calling: self Call patient at: at home [phone] (home) [phone] (cell) Was an appointment scheduled: No Closing statement: Results or non-symptom based questions: Thank you for calling [facility], your call will be returned within the next business day. Cris Boucher documented in this encounterSuburban [facility]11-01-2024 Telephone encounter Note * Telephone Encounter - Malika Sheikh LPN - 06/03/2024 8:35 AM EDT Placed in mail for patient. [facility]11-01-2024 Miscellaneous Notes* Telephone Encounter - Malika Sheikh LPN - 06/03/2024 8:35 AM EDT Placed in mail for patient. * Telephone Encounter - Norma Long - 06/02/2024 2:14 PM EDT Tena is calling Sahra Guy MD today to request patient medication list be mailed to her please . The address has been verified Patient has been identified by name and birthdate. Person calling: self Call patient at: at home [phone] (home) [phone] (cell) Was an appointment scheduled: No Closing statement: Results or non-symptom based questions: Thank you for calling [facility], your call will be returned within the next business day. Norma Monroe documented in this encounterSub[facility]10-31-2024 Telephone encounter Note * Telephone Encounter - Sahra Guy MD - 06/02/2024 5:13 PM EDT 197 lbs., Sahra Guy MD [facility]10-31-2024 Telephone encounter Note* Telephone Encounter - Norma Long - 06/02/2024 2:14 PM EDT Tena is calling Sahra Guy MD today to request patient medication list be mailed to her please . The address has been verified Patient has been identified by name and birthdate. Person calling: self Call patient at: at home [phone] (home) [phone] (cell) Was an appointment scheduled: No Closing statement: Results or non-symptom based questions: Thank you for calling [facility], your call will be returned within the next business day. Norma Monroe [facility]10-31-2024 Telephone encounter Note* Telephone Encounter - Cris Rascon - 06/02/2024 10:15 AM EDT Tena is calling Sahra Guy MD today with concern regarding Question/Weight Patient is calling in and wanting to get her weight from recent visits; states that she needs to give this to the Assisted Living that she is at. Patient has been identified by name and birthdate. Duration of symptoms: N/A Person calling: self Call patient at: at home [phone] (home) [phone] (cell) Was an appointment scheduled: No Closing statement: Results or non-symptom based questions: Thank you for calling [facility], your call will be returned within the next business day. Cris Boucher [facility]10-16-2024 Telephone encounter Note* Telephone Encounter - Adonay Marquez LPN - 05/18/2024 11:52 AM EDT RSV vaccine is not covered in office with pt insurance. Please assist pt in scheduling office visitwith provider for a check up. [facility]10-16-2024 Miscellaneous Notes* Telephone Encounter - Adonay Marquez LPN - 05/18/2024 11:52 AM EDT RSV vaccine is not covered in office with pt insurance. Please assist pt in scheduling office visitwith provider for a check up. * Telephone Encounter - Kimberly Nelson - 05/18/2024 11:39 AM EDT Patient said she scheduled an appt with Dr. Guy on 05/24/24 to get RSV vaccine. Wanted to make sure it was ordered. I asked if that is all she needs; not sure if she needs to see the doctor for that or if she can just schedule with the nurse. She hasn't seen the doctor since December. Please advise her at [phone] documented in this encounterSub[facility]10-16-2024 Telephone encounter Note * Telephone Encounter - Kimberly Nelson - 05/18/2024 11:39 AM EDT Patient said she scheduled an appt with Dr. Guy on 05/24/24 to get RSV vaccine. Wanted to make sure it was ordered. I asked if that is all she needs; not sure if she needs to see the doctor for that or if she can just schedule with the nurse. She hasn't seen the doctor since December. Please advise her at [phone] [facility]09-04-2024 Telephone encounter Note* Telephone Encounter - Jennifer Giron LPN - 04/06/2024 11:25 AM EDT Prescription Refill Information The patient has been [...] [Pharmacy Med Name: ESOMEPRA MAG CAP 40MG ] 90 capsule 2 Sig: TAKE 1 CAPSULE DAILY BEFOREBREAKFAST. 1/2 HOUR BEFORE A MEAL Jennifer Giron LPN April 06, 2024 11:26 AM [facility]09-04-2024 Miscellaneous Notes* Telephone Encounter - Jennifer Giron LPN - 04/06/2024 11:25 AM EDT Prescription Refill Information The patient has been [...] 06, 2024 11:26 AM documented in this encounterSub[facility]08-07-2024 Telephone encounter Note * Telephone Encounter - Malika Sheikh LPN - 03/09/2024 2:18 PM EDT Labs placed in mail. Voicemail left for patient. [facility]08-07-2024 Miscellaneous Notes* Telephone Encounter - Malika Sheikh LPN - 03/09/2024 2:18 PM EDT Labs placed in mail. Voicemail left for patient. * Telephone Encounter - Leonid Roach APRN.PHARMACIST HELPER - 03/09/2024 1:29 PM EDT Her labs are all within normal limits. Leonid Roach APRN.ANTONY * Telephone Encounter - Stephanie Rayo RN - 03/09/2024 9:37 AM EDT Labs are resulted from [facility]. Can you review Vit D, Lipid, CMP, CBC, A1C? Results have been mailed to the patient at her request: Tena Cannon [id number] [address] [place] [address] [id number] * Telephone Encounter - Stephanie Rayo RN - 03/07/2024 12:09 PM EDT Called patient. March 03 was the draw date. When the results are reviewed she would like them mailed. Patient is reminded external labs take longer to review due to faxing. Patient voiced understanding. Please notify patient when faxed results are received and reviewed. * Telephone Encounter - Norma Long - 03/07/2024 10:26 AM EDT Tena is calling Sahra Guy MD today to request a call to advise labs drawn at [facility] results and when provider reviews those labs patient is asking for them to be mailed to her, patient address has been verified. Patient has been identified by name and birthdate. Duration of symptoms: N/A Person calling: self Call patient at: at home [phone] (home) [phone] (cell) Was an appointment scheduled: No Closing statement: Results or non-symptom based questions: Thank you for calling [facility], your call will be returned within the next business day. Norma Monroe documented in this encounterSuburban [facility]08-07-2024 Telephone encounter Note * Telephone Encounter - Leonid Roach APRN.CNP - 03/09/2024 1:29 PM EDT Her labs are all within normal limits. Leonid Roach APRN.ANTONY [facility]08-07-2024 Telephone encounter Note* Telephone Encounter - Stephanie Rayo RN - 03/09/2024 9:37 AM EDT Labs are resulted from [facility]. Can you review Vit D, Lipid, CMP, CBC, A1C? Results have been mailed to the patient at her request: Tena Cannon [id number] [address] [place] [address] [address] [place] [id number] [facility]08-05-2024 Telephone encounter Note* Telephone Encounter - Stephanie Rayo RN - 03/07/2024 12:09 PM EDT Called patient. March 03 was the draw date. When the results are reviewed she would like them mailed. Patient is reminded external labs take longer to review due to faxing. Patient voiced understanding. Please notify patient when faxed results are received and reviewed. [facility]08-05-2024 Telephone encounter Note* Telephone Encounter - Norma Long - 03/07/2024 10:26 AM EDT Tena is calling Sahra Guy MD today to request a call to advise labs drawn at [facility] results and when provider reviews those labs patient is asking for them to be mailed to her, patient address has been verified. Patient has been identified by name and birthdate. Duration of symptoms: N/A Person calling: self Call patient at: at home [phone] (home) [phone] (cell) Was an appointment scheduled: No Closing statement: Results or non-symptom based questions: Thank you for calling [facility], your call will be returned within the next business day. Norma Monroe [facility]07-26-2024 Telephone encounter Note* Telephone Encounter - [place] Tete Boucher - 02/26/2024 4:43 PM EDT Patient returned phone call; she was notified that the labs were faxed, as she requested. [facility]07-26-2024 Miscellaneous Notes* Telephone Encounter - [place] Tete Boucher - 02/26/2024 4:43 PM EDT Patient returned phone call; she was notified that the labs were faxed, as she requested. * Telephone Encounter - Malika Sheikh LPN - 02/26/2024 4:41 PM EDT Labs faxed. Voicemail left for patient. * Telephone Encounter - [place] Tete Boucher - 02/26/2024 2:11 PM EDT Tena is calling Sahra Guy MD today patient is calling to request her lab orders are sent to: [facility], fax to: [phone]. Please notify patient once this is completed. Patient has been identified by name and birthdate. Duration of symptoms: N/A Person calling: self Call patient at: at home [phone] (home) [phone] (cell) Was an appointment scheduled: No Closing statement: Results or non-symptom based questions: Thank you for calling [facility], your call will be returned within the next business day. Tete Boucher documented in this encounterSuburban [facility]07-26-2024 Telephone encounter Note * Telephone Encounter - Malika Sheikh LPN - 02/26/2024 4:41 PM EDT Labs faxed. Voicemail left for patient. [facility]07-26-2024 Telephone encounter Note* Telephone Encounter - Tete Melchor - 02/26/2024 2:11 PM EDT Tena is calling Sahra Guy MD today patient is calling to request her lab orders are sent to: [facility], fax to: [phone]. Please notify patient once this is completed. Patient has been identified by name and birthdate. Duration of symptoms: N/A Person calling: self Call patient at: at home [phone] (home) [phone] (cell) Was an appointment scheduled: No Closing statement: Results or non-symptom based questions: Thank you for calling [facility], your call will be returned within the next business day. Tete Mora Pss [facility]07-25-2024 Telephone encounter Note* Telephone Encounter - Adonay Marquez LPN - 02/25/2024 4:03 PM EDT Called and informed pt. [facility]07-25-2024 Miscellaneous Notes* Telephone Encounter - Adonay Marquez LPN - 02/25/2024 4:03 PM EDT Called and informed pt. * Telephone Encounter - Leonid Roach APRN.CNP - 02/23/2024 9:10 AM EDT Patient is due for fasting labs, orders placed Leonid Roach APRN.CNP * Telephone Encounter - Adonay Marquez LPN - 02/23/2024 8:30 AM EDT Pharmacy verified in [facility] Patient has been identified by name and [...] advise. Adonay Marquez LPN documented in this encounterSub[facility]07-[facility]24 Telephone encounter Note * Telephone Encounter - Leonid Roach APRN.CNP - 02/23/2024 9:10 AM EDT Patient is due for fasting labs, orders placed Leonid Roach APRN.CNP [facility]07-23-2024 Telephone encounter Note* Telephone Encounter - Adonay Marquez LPN - 02/23/2024 8:30 AM EDT Pharmacy verified in [facility] Patient has been identified by name and [...] 09/25/2022 5.0 Please advise. Adonay Marquez LPN [facility]06-24-2024 Telephone encounter Note* Telephone Encounter - Kimberly Nelson - 01/25/2024 1:40 PM EDT Prescription Refill Information The patient has been [...] 1 APPLICATION TO AFFECTED AREA ONCE DAILY BRITNEYACE Kimberly Boucher January 25, 2024 1:40 PM [facility]06-24-2024 Miscellaneous Notes* Telephone Encounter - Kimberly Nelson - 01/25/2024 1:40 PM EDT Prescription Refill Information The patient has been [...] 1 APPLICATION TO AFFECTED AREA ONCE DAILY YJOTI Boucher January 25, 2024 1:40 PM documented in this encounterSub[facility]06-[facility]20[facility] Telephone encounter Note * Telephone Encounter - Sahra Guy MD - 01/13/2024 8:33 AM EDT The following approved medication requests have been transmitted electronically. Requested Prescriptions Signed Prescriptions Disp Refills oxybutynin ER (DITROPAN XL) 10 mg 24 hr tablet 90 tablet 1 Sig: Take 1 tablet by mouth once daily. Authorizing Provider: SAHRA GUY MD [facility]06-12-2024 Miscellaneous Notes* Telephone Encounter - Sahra Guy MD - 01/13/2024 8:33 AM EDT The following approved medication requests have been transmitted electronically. Requested Prescriptions Signed Prescriptions Disp Refills oxybutynin ER (DITROPAN XL) 10 mg 24 hr tablet 90 tablet 1 Sig: Take 1 tablet by mouth once daily. Authorizing Provider: SAHRA GUY MD * Telephone Encounter - Adonay Marquez LPN - 01/12/2024 4:33 PM EDT Prescription Refill Information The patient has been [...] 12, 2024 4:35 PM documented in this encounterSuburban [facility]06-[facility]-2024 Telephone encounter Note * Telephone Encounter - Adonay Marquze LPN - 01/12/2024 4:33 PM EDT Prescription Refill Information The patient has been [...] Marquez LPN January 12, 2024 4:35 PM [facility]05-09-2024 Instructions* Patient Instructions* Sahra Guy MD - 12/10/2023 9:56 AM EDT Try Zyrtec 10 mg daily for allergies , also consider Flonase nasal spray 1 spray each nostril daily documented in this encounterSuburban [facility] Hospital [facility]05-09-[facility]24 History of Present illness Narrative* Sahra Guy MD - 12/10/2023 9:21 AM EDT CHIEF COMPLAINT Patient presents with: Forms HISTORY OF PRESENT ILLNESS Tena Cannon is a 83 year old female who presents here today for paperwork. I last saw this patienton 03/10/2023. Post polio syndrome Chronic weakness, lower extremity weakness, general fatigability. - Currently living in an independent living facility which was bought out and is converting into anassisted living facility. She has concern that her [...] ALLERGIES Keflex [Cephalexin], Novacaine [Other], Vioxx [Rofecoxib], [place]-3 Fish Oil [[place]-3 Fatty Acids-Vitamin E], Advil [Ibuprofen], and Asa [...] mcg tablet Take 1 tablet by mouth oncedaily. prednisoLONE acetate (PRED FORTE, ECONOPRED PLUS) 1 % ophthalmic suspension Use 1 Drop in the left eye twice daily as needed. timolol maleate (TIMOPTIC) 0.5 % ophthalmic solution Use 1 Drop in the left eye every morning. polyvinyl alcohol (LIQUID TEARS OPHTHALMIC) Use in eyes. rutin/hesp/bioflav/C/[id number] (BIOFLEX ORAL) Take 1 capsule by mouth [...] 1 Applicator vaginally daily at bedtime. (Patient nottaking: Reported on 10/29/2021) cyclopentolate (CYCLOGYL) 1 % [...] Advance Directive Discussion Due for Covid-19 Vaccine (2022- season) Labs reviewed. Past medical history, appointments, [...] 156/81 Pulse 68 Ht 142.2 cm (4' 8") SpO2 98% BMI 44.26 kg/m Repeat BP: [...] 10, 2023 1:35 PM documented in this encounterSuburban [facility]04-25[facility]24 Telephone encounter Note * Telephone Encounter - Sahra Guy MD - 11/26/2023 3:13 PM EDT Schedule appt. Haven't seen her since March. Sahra Guy MD [facility]04-25-2024 Miscellaneous Notes* Telephone Encounter - Sahra Guy MD - 11/26/2023 3:13 PM EDT Schedule appt. Haven't seen her since March. Sahra Guy MD * Telephone Encounter - Uriel Stover - 11/25/2023 3:47 PM EDT FYI- Patient called and wanted Dr. Guy to know that she is aware of the paperwork being sent to him from [place], and she agrees and is fine with going into their Assisted Living. She wants to stay there. * Telephone Encounter - Malika Sheikh LPN - 11/25/2023 3:29 PM EDT Received 11/25/2023 from [facility]. Placed in provider's inbox for review. Route to [place] for faxing. documented in this encounterSuburban [facility]04-24-2024 Telephone encounter Note * Telephone Encounter - Uriel Stover - 11/25/2023 3:47 PM EDT FYI- Patient called and wanted Dr. Guy to know that she is aware of the paperwork being sent to him from [place], and she agrees and is fine with going into their Assisted Living. She wants to stay there. [facility]04-24-2024 Telephone encounter Note* Telephone Encounter - Malika Sheikh LPN - 11/25/2023 3:29 PM EDT Received 11/25/2023 from [facility]. Placed in provider's inbox for review. Route to [place] for faxing. [facility]12-11-2023 Miscellaneous Notes* Telephone Encounter - Jennifer Giron LPN - 07/13/2023 1:34 PM EST Last appointment: 03/10/23 Next appointment: none Pharmacy verified in [facility]. Refill(s) requested: Requested Prescriptions Pending Prescriptions Disp Refills oxybutynin ER (DITROPAN XL) 10 mg 24 hr tablet [Pharmacy Med Name: OXYBUTYNIN TAB 10MG ER] 90 tablet 1 Sig: take 1 tablet once daily Order(s) pended. Please advise. Jennifer Giron LPN, [facility] documented in this encounterSuburban [facility]10-06-2023 Miscellaneous Notes* Telephone Encounter - Stephanie Rayo RN - 05/08/2023 11:09 AM EDT Called to triage request. Not Rx'd since 2020. Patient last seen 03/10/23. Patient states she is not having an issue that needs triaged at this time, wants to have it on handbecause her tube from 2020 is running low. She uses it occasionally for perineum itching. * Telephone Encounter - Norma Long - 05/08/2023 9:48 AM EDT Patient has been identified by name and date of : Yes Requested Prescriptions Pending Prescriptions Disp Refills nystatin-triamcinolone (MYCOLOG) ointment 30 g 1 Sig: Apply sparingly to perineum twice daily for irritation/infection. RX INSTRUCTIONS: Patient aware RX will be sent to pharmacy. No need to notify patient. Norma Monroe documented in this encounterSuburban [facility]09-21[facility]23 History of Present illness Narrative* Jeannette Melgar, PT - 04/23/2023 2:49 PM EDT Patient history gathered and found that patient is currently receiving home care. No further evaluation completed this date. Patient provided information regarding adaptive equipment that may be helpful with ADL's. documented in this encounterSuburban Community Hospital & [facility]09-07-2023 History of Present illness Narrative* Nevaeh Hernandez, [facility]-TABLE[facility] - 04/09/2023 2:55 PM EDT Episode Visit Count: 1 Start of Care Date: 04/09/23 Onset Date: 04/03/13 Plan of Care Certification Date: 04/09/23 Next Certification Due Date: 04/09/23 Patient Identified by Name and Date of : Yes [facility] SPEECH THERAPY CLINICAL [...] 90 degrees for all PO, Small Bite/Sip TABLEMAN Recommendations: Diet, Swallowing Precautions, Discontinue Speech Therapy [...] oral intake, Sit upright 90 degrees for allPO, Small Bite/Sip Clinical Swallow Mely Swallow Protocol: [...] LONNIE, Lisandra GN, Ayush J, and Mars RJ. Validity and reliability of the Eating Assessment [...] Back: States/Identifies TREATMENT: Evaluation: Swallow Eval Func (19121) Evaluation: Swallow Eval Func (45235) Swallow / Dysphagia (19293): Skilled Intervention: Provided education related to a typical swallowing mechanism in a compare and contrast manner compared to this patient's current skill set. , Educated and advised patient / caregiver on texture and liquid consistency recommendations., Instructed patient / caregiver on recommended compensatory strategies to maximize safety with oral intake while maintaining nutrition, hydration and medication stability. , Provided written and verbal education onanti reflux precautions and swallowing strategies. Billing: Clinical Swallow Evaluation (16833) and Dysphagia Treatment (93558) Total time / Length of visit: 50 minutes Session Start Time : 1345 Session Stop Time : 1435 Nevaeh Hernandez CCC-TABLEMAN documented in this encounterSub[facility] Miscellaneous Notes* Telephone Encounter - Sara Vasquez RN - 04/09/2023 9:47 AM EDT Images from the original note were not included. 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 She willhave to come into the physical therapy location [...] Sara Vasquez RN, BSN documented in this encounterSub[facility] History of Present illness Narrative* Ken Trent MD - 04/03/2023 2:00 PM EDT [facility] [place] [facility] New Patient Visit Note Consultation requested by Dr. Sahra Guy MD for an opinion regarding post- polio syndrome. My final recommendations will be communicated [...] run and jump. Had tendon surgeries when shewas when [age] yo, after that was able to go up and down the stairs. Has always had to use her armsto help her get out of the seated [...] with her new shoes. Drinks a lot ofmilk and magnesium, otherwise would get cramps. No muscle twitching. No diplopia but does have ptosis; having blepharoplasty done soon. Has rotator cuff tear in her right shoulder, had on the left shoulder as well and had surgery Diagnostic Studies: Serum labs: 2022- A1c 5.0 2021- TSH wnl Physical Exam BP 137/90 Pulse 69 Ht 139.7 cm (4' 7") BMI 45.88 kg/m GENERAL Well nourished, well [...] (L): absent Jaw jerk: Absent COORDINATION Intact hoilol-nq-ucul, itrt-mu-pjzv, and rapid alternating movements. No tremor. SENSATION [...] of 6 and previous diagnosis here at [facility] postpolio syndrome a few decades prior presenting for evaluation of progressive weakness over the past 30 years with increasing functional limitations. Her neurologic examination is notable for scattered upper and lower extremity weakness with prominent proximal lower extremity weakness and contractures at the knee and ankle. 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 We discussed the pathophysiology and expected course of this disease. We also talked about the possibility of another disorder such as a myopathy or m otor and/or sensory neuropathy; given confounding exam findings [...] safety within the house and we discussed phys ical therapy evaluation to make sure she has [...] which included preparing to see the patient, ljwk-nh-pwzp patient care, completing clinical documentation, performing a medically appropriate examination, counseling and educating the patient/family/caregiver, and ordering medications, tests,or procedures. Ken Trent MD Neuromuscular Medicine (NM) [facility], [facility] [place] documented in this encounterSub[facility]08-21[facility]23 Miscellaneous Notes* Telephone Encounter - Adonay Marquez - 03/23/2023 3:25 PM EDT Received OT referral request from [facility]/ [facility] [employer]. Placed in provider's inbox for review. Route to [place] fax [phone] documented in this encounterSuburban Community Hospital & [facility]08-[facility] Miscellaneous Notes* Telephone Encounter - Sahra Guy MD - 03/11/2023 4:27 PM EDT The following approved medication requests have been transmitted electronically. Requested Prescriptions Signed Prescriptions Disp Refills metFORMIN (GLUCOPHAGE) 500 mg tablet 90 tablet 3 Sig: Take 1 tablet by mouth daily with breakfast. Authorizing Provider: SAHRA GUY MD * Telephone Encounter - Malika Sheikh LPN - 03/11/2023 2:38 PM EDT Pharmacy verified in Epic Patient has been [...] advise. Malika Sheikh LPN documented in this encounterSuburban [facility] & [facility] History of Present illness Narrative* Sahra Guy MD - 03/10/2023 10:00 AM EDT CHIEF COMPLAINT Patient presents with: 6 Month [...] 146/67 Pulse 70 Ht 142.2 cm (4' 7.98") SpO2 96% BMI 44.28 kg/m Repeat BP: [...] Scribe Attestation: By signing my name below, IJulianna, attest that this documentation has been prepared under the direction and in the presence of Jaime Guy M.D. Electronically Signed: Jakob Schafer. March 09, 2023 11:18 PM Provider Attestation: Sahra Birmingham MD, personally performed [...] 10, 2023 1:37 PM documented in this encounterSuburban [facility] Hospital & [facility]05-09-[facility]23 Miscellaneous Notes* Telephone Encounter - Malika Sheikh LPN - 12/09/2022 2:20 PM EDT Received 12/09/2022 from [facility]. Placed in provider's inbox for review. Route to [place] for faxing Patient has no medical contradictions to using hearing aid(s) documented in this encounterSuburban [facility] & [facility]02-28-2023 Miscellaneous Notes* Telephone Encounter - Leonid Roach APRN.CNP - 09/30/2022 11:37 AM EST Requested Prescriptions Signed Prescriptions Disp Refills valACYclovir (VALTREX) 1 gram 21 tablet 0 Sig: Take 1 tablet by mouth three times daily for 7 days. Authorizing Provider: LEONID ROACH Pharmacy Information Pharmacy Address Telephone [facility]/pharmacy #[id number] [place], [place] [id number] * Telephone Encounter - Adonay Marquez - 09/30/2022 11:12 AM EST Refill pended for [facility] * Telephone Encounter - Alicia Sultana - 09/30/2022 10:51 AM EST Patient was prescribed valACYclovir (VALTREX) 1 gram. Medication was sent to [facility] pharmacy. Please send to [facility] in [place]. documented in this encounterSuburban Community Hospital & [facility]02-24-[facility]23 Miscellaneous Notes* Telephone Encounter - Yelena King Ma - 09/26/2022 11:30 AM EST Patient notified and voiced understanding * Telephone Encounter - Yelena King Ma - 09/26/2022 11:26 AM EST Images from the original note were not included. Theresa Zarate APRN.ANTONY [facility] Triage Nurse [place]; [facility] [place] Please inform patient that her lab results are normal or within the acceptable range. Please ask that she follow recommendations as stated at office visit. Theresa Zarate APRN.PHARMACIST HELPER documented in this encounterSuburban Community Hospital & [facility]02-24-2023 Miscellaneous Notes* Telephone Encounter - Cris Stewart RN - 09/26/2022 10:04 AM EST Message to patient, results mailed to her per request. Address checked. * Telephone Encounter - Stephanie Rayo RN - 09/26/2022 9:30 AM EST Images from the original note were not included. Theresa Zarate APRN.ANTONY [facility] [place]; [facility] [place] Please inform patient that her lab results are normal or within the acceptable range. Please ask that she follow recommendations as stated at office visit. Theresa Zarate APRN.ANTONY Called patient at [phone]. Left message on voicemail for patient to return call for message from provider. documented in this encounterSuburban Community Hospital & [facility]02-15-2023 Miscellaneous Notes* Telephone Encounter - Cris Stewart RN - 09/17/2022 12:55 PM EST Spoke to patient, states the great toes [...] Assessment - Initial Assessment Questions 1. ONSET: "When did the pain start?" A few days ago 2. LOCATION: "Where is the pain located?" (e.g., around nail, entire toe, at foot joint) Rt great toe 3. PAIN: "How bad is the pain?" (Scale 1-10; or mild, moderate, severe) - MILD (1-3): doesn't interfere with normal activities - MODERATE (4-7): interferes with normal activities (e.g., work or school) or awakens from sleep, limping - SEVERE (8-10): excruciating pain, unable to do any normal activities, unable to walk When standing is 5-6/10 4. APPEARANCE: "What does the toe look like?" (e.g., redness, swelling, bruising, pallor) The toe is red on top and on the sides 5. CAUSE: "What do you think is causing the toe pain?" occurred after taking off her shoes 6. OTHER SYMPTOMS: "Do you have any other symptoms?" (e.g., leg pain, rash, fever, numbness) Denies 7. : "Is there any chance you are ?" "When was your last menstrual period?" N/A Protocols used: Toe Rntk-LNILE-LX * Telephone Encounter - Stephanie Rayo RN - 09/17/2022 11:02 AM EST Called patient at [phone] to triage her upcoming appointment with Dr. Guy for big toe redness and pain. Dr. Guy has many openings sooner than this if she needs to move it up. Left message on voicemail for patient to return call to triage. documented in this encounterSuburban [facility] Hospital & [facility]01-03-2023 Miscellaneous Notes* Telephone Encounter - Malika Sheikh LPN - 08/05/2022 11:54 AM EST Pharmacy verified in [facility] Patient has been identified by name and [...] advise. Malika Sheikh LPN documented in this encounterSuburban Community Hospital & [facility]12-12-2022 Miscellaneous Notes* Telephone Encounter - Malika Sheikh LPN - 07/14/2022 3:52 PM EST Received 07/14/2022 from Patient. Placed in provider's inbox for review. Route to [place] for mailing Disability license plate form documented in this encounterSuburban Community Hospital & [facility]11-10-2022 Instructions* Patient Instructions* Leonid Roach APRN.PHARMACIST HELPER - 06/12/2022 10:05 AM EST FACT SHEET FOR PATIENTS, PARENTS, AND CAREGIVERS EMERGENCY USE AUTHORIZATION (EUA) OF PAXLOVID FOR CORONAVIRUS DISEASE 2019 (COVID-19) You are being given this Fact Sheet because your healthcare provider believes it is necessary to provide you with PAXLOVID for the treatment of tbte-tm-uvzjkwat coronavirus disease (COVID-19) caused by the SARS-CoV-2 virus. This Fact Sheet contains information to help you understand the risks and benefits of taking the PAXLOVID you have received or may receive. The U.S. Food and Drug Administration (FDA) has issued an Emergency Use Authorization (EUA) to makePAXLOVID available during the COVID-19 pandemic (for more details about an EUA please see What is an Emergency Use Authorization? at the end of this document). PAXLOVID is not an FDA-approved medicine in the [place]. Read this Fact Sheet for information about PAXLOVID. Talk to your healthcareprovider about your options or if you have any questions. It is your choice to take PAXLOVID. What is COVID-19? COVID-19 is caused by a virus called a coronavirus. You can get COVID-19 through close contact withanother person who has the virus. COVID-19 illnesses have ranged from very tigl-lx-eqqulh, including illness resulting in . While information so far suggests that most COVID-19 illness is mild, serious illness can happen and maycause some of your other medical conditions to become worse. Older people and people of all ages with severe, long lasting (chronic) medical conditions like heart disease, lung disease, and diabetes,for example seem to be at higher risk of being hospitalized for COVID-19. What is PAXLOVID? PAXLOVID is an investigational medicine used to treat qdtl-bl-lvcrqzuc COVID-19 in adults and children [12 years [...] of using PAXLOVID to treat people with rovv-be-acsatsqc COVID-19. The FDA has authorized the emergency use of PAXLOVID for the treatment of sqsx-aj-kfgxjeuf COVID-19in adults and children [12 years of age [...] the medicines you take, including prescription and uovr-sgs-kyjlevp medicines, vitamins, and herbal supplements. Some medicines [...] you have any questions about contraceptive methods thatmight be right for you. How do I [...] missed dose and take the next dose atyour regular time. Do not take 2 doses [...] oral midazolam Apalutamide Carbamazepine, phenobarbital, phenytoin Rifampin [place] s Wort (hypericum perforatum) Taking PAXLOVID with [...] (remdesivir) is FDA-approved for the treatment of pmab-ot-iyamrcyr COVID-19 in certain adults and children. Talk with your doctor to see if Veklury is appropriate for you. Like PAXLOVID, FDA may also allow for the emergency use of other medicines to treat people with COVID-19. Go to https://www.fda.gov/webfpbeor-vsfhmpfcsyon-ndsrwuyexff/lls-twjik-xsasqjhktx-and- policy-framework/ltobkwlwi-six-htvudllfxbfof for information on the emergency use of other medicines that are authorized by FDA to treat people with COVID-19. Your healthcare provider may talk with you aboutclinical trials for which you may be eligible. It is your choice to be treated or not to be treated with PAXLOVID. Should you decide not to receive it or for your child not to receive it, it will not change your standard medical care. What if I am or ? There is anodic treater treating women or mothers with PAXLOVID. For a motherand unborn baby, the benefit of taking PAXLOVID may be greater than the risk from the treatment. Ifyou are , discuss your options and specific situation with your healthcare provider. It is recommended that you use effective barrier contraception or do not have sexual activity whiletaking PAXLOVID. If you are , discuss your options and specific situation with your healthcare provider. How do I report side effects with PAXLOVID? Contact your healthcare provider if you have any side effects that bother you or do not go away. Report side effects to [employer] at www.fda.gov/medwatch or call 9-958-QCF3507 or you can reportside effects to [employer]. at the contact information provided below. Website Fax number Telephone number [employer] How should I store PAXLOVID? Store PAXLOVID [...] (EUA). The EUA is supported by a [place] of Health and Human Service (HHS) declaration that circumstances exist to justify the emergency use of drugs and biological productsduring the COVID-19 pandemic. PAXLOVID for the treatment of vquu-xl-oobftqdv COVID-19 in adults and children [12 years of age andolder weighing at least 88 pounds (40 kg)] [...] telephone number provided below. Website Telephone number www.[employer] (4-542-I54-PACK) You can also go to www.Bellhops.BeatTheBushes or call for more information. Pfizer Distributed by [employer] [place] [address] LAB-1494-2.1 Revised: 18 October 2021 FACT SHEET FOR PATIENTS, PARENTS, AND CAREGIVERS EMERGENCY USE AUTHORIZATION (EUA) OF PAXLOVID FOR CORONAVIRUS DISEASE 2019 (COVID-19) You are being given this Fact Sheet because your healthcare provider believes it is necessary to provide you with PAXLOVID for the treatment of mnbw-br-toiylniq coronavirus disease (COVID-19) caused by the SARS-CoV-2 virus. This Fact Sheet contains information to help you understand the risks and benefits of taking the PAXLOVID you have received or may receive. The U.S. Food and Drug Administration (FDA) has issued an Emergency Use Authorization (EUA) to makePAXLOVID available during the COVID-19 pandemic (for more details about an EUA please see What is an Emergency Use Authorization? at the end of this document). PAXLOVID is not an FDA-approved medicine in the [place]. Read this Fact Sheet for information about PAXLOVID. Talk to your healthcareprovider about your options or if you have any questions. It is your choice to take PAXLOVID. What is COVID-19? COVID-19 is caused by a virus called a coronavirus. You can get COVID-19 through close contact withanother person who has the virus. COVID-19 illnesses have ranged from very huio-qe-ykmnrq, including illness resulting in . While information so far suggests that most COVID-19 illness is mild, serious illness can happen and maycause some of your other medical conditions to become worse. Older people and people of all ages with severe, long lasting (chronic) medical conditions like heart disease, lung disease, and diabetes,for example seem to be at higher risk of being hospitalized for COVID-19. What is PAXLOVID? PAXLOVID is an investigational medicine used to treat hbny-zh-wdqiexzi COVID-19 in adults and children [12 years [...] of using PAXLOVID to treat people with ftbc-po-tmcrgiub COVID-19. The FDA has authorized the emergency use of PAXLOVID for the treatment of qdmt-qt-pxxfdicu COVID-19in adults and children [12 years of age [...] the medicines you take, including prescription and owwv-jyw-gbivslr medicines, vitamins, and herbal supplements. Some medicines [...] you have any questions about contraceptive methods thatmight be right for you. How do I [...] missed dose and take the next dose atyour regular time. Do not take 2 doses [...] oral midazolam Apalutamide Carbamazepine, phenobarbital, phenytoin Rifampin [place] s Wort (hypericum perforatum) Taking PAXLOVID with [...] (remdesivir) is FDA-approved for the treatment of pupq-or-bfwgertz COVID-19 in certain adults and children. Talk with your doctor to see if Veklury is appropriate for you. Like PAXLOVID, FDA may also allow for the emergency use of other medicines to treat people with COVID-19. Go to https://www.fda.gov/towlahxer-tlnrbyqosnyg-dohmxcmyklp/abb-yvcbe-jypfiguijp-and- policy-framework/powikthda-iey-wvvqhxfoiwssb for information on the emergency use of other medicines that are authorized by FDA to treat people with COVID-19. Your healthcare provider may talk with you aboutclinical trials for which you may be eligible. It is your choice to be treated or not to be treated with PAXLOVID. Should you decide not to receive it or for your child not to receive it, it will not change your standard medical care. What if I am or ? There is anodic treater treating women or mothers with PAXLOVID. For a motherand unborn baby, the benefit of taking PAXLOVID may be greater than the risk from the treatment. Ifyou are , discuss your options and specific situation with your healthcare provider. It is recommended that you use effective barrier contraception or do not have sexual activity whiletaking PAXLOVID. If you are , discuss your options and specific situation with your healthcare provider. How do I report side effects with PAXLOVID? Contact your healthcare provider if you have any side effects that bother you or do not go away. Report side effects to [employer] at www.fda.gov/medMedallion Learningtch or call 7-198-OQX9323 or you can reportside effects to [employer] at the contact information provided below. Website Fax number Telephone number [employer] How should I store PAXLOVID? Store PAXLOVID [...] (EUA). The EUA is supported by a [place] of Health and Human Service (HHS) declaration that circumstances exist to justify the emergency use of drugs and biological productsduring the COVID-19 pandemic. PAXLOVID for the treatment of erog-qh-strbsrri COVID-19 in adults and children [12 years of age andolder weighing at least 88 pounds (40 kg)] [...] telephone number provided below. Website Telephone number www[employer] (3-642-X48-PACK) You can also go to wwwMorning Tec or call for more information. [employer] Distributed by [employer] [place] [address] LAB-1494-2.1 Revised: 18 October 2021 documented in this encounterSuburban [facility]11[facility] History of Present illness Narrative* Leonid Roach APRN.CNP - 06/12/2022 10:02 AM EST Nirmatrelvir/Ritonavir (Paxlovid) Eligibility and Patient Discussion [facility] Formulary Restriction Criteria: Adult outpatients 18 [...] < 30 mL/min) or severe hepatic impairment (Child-Valdez Class C) [x] Meeting at least one [...] reported. The discussion included alternatives to receiving nirmatrelvir/rit onavir, including clinical trials, and potential the risks and benefits of those alternatives. The patient was provided electronically with the "Fact Sheet for Patients, Parents and Caregivers". The patient was also instructed that in addition to the treatment with nirmatrelvir/ritonavir, he/she should continue to self-isolate and use infection control measures (e.g., wear mask, isolate, social distance, avoid sharing personal items, clean and disinfect "high touch" surfaces, and frequent h andwashing) according to CDC guidelines. The patient stated understanding and gave verbal consent to proceeding with nirmatrelvir/ritonavir treatment. Leonid Roach APRN.CNP June 12, 2022 10:02 AM Symptoms x 4 days: nasal congestion/drainage, eyes burning, cough. No wheezing/SOB/fever. Has been taking sudafed. Telephone time: 9 minutes documented in this encounterSuburban Community Hospital & [facility]11-09-2022 Miscellaneous Notes* Telephone Encounter - Leonid Roach APRN.CNP - 06/11/2022 3:34 PM EST Schedule virtual visit with any provider or offer express care on-line visit to discuss antiviral treatment. Leonid Roach APRN.CNP * Telephone Encounter - Cris Stewart RN - 06/11/2022 2:27 PM EST Patient appears to have mild COVID sx [...] - Initial Assessment Questions 1. COVID-19 DIAGNOSIS: "Who made your COVID-19 diagnosis?" "Was it confirmed by a positive lab testor self-test?" If not diagnosed by a doctor (or INTERPRETER/PA), ask "Are there lots of cases (community spread) where you live?" Note: See public health department website, if unsure. Home Test 2. COVID-19 EXPOSURE: "Was there any known exposure to COVID before the symptoms began?" CDC Definition of close contact: within 6 feet (2 meters) for a total of 15 minutes or more over a 24-hour period. Yes, where she lives 3. ONSET: "When did the COVID-19 symptoms start?" Thursday 4. WORST SYMPTOM: "What is your worst symptom?" (e.g., cough, fever, shortness of breath, muscle aches) Cough, 5. COUGH: "Do you have a cough?" If Yes, ask: "How bad is the cough?" Sl. Cough, trying to cough up secretions 6. FEVER: "Do you have a fever?" If Yes, ask: "What is your temperature, how was it measured, and when did it start?" Denies 7. RESPIRATORY STATUS: "Describe your breathing?" (e.g., shortness of breath, wheezing, unable to speak) Denies 8. PVECJX-UIBG-CGSRK: "Are you getting better, staying the same or getting worse compared to yesterday?" If getting worse, ask, "In what way?" Unchanged 9. HIGH RISK DISEASE: "Do you have any chronic medical problems?" (e.g., asthma, heart or lung disease, weak immune system, obesity, etc.) Denies 10. VACCINE: "Have you had the COVID-19 vaccine?" If Yes, ask: "Which one, how many shots, when didyou get it?" Yes, Pfizer 11. BOOSTER: "Have you received your COVID-19 booster?" If Yes, ask: "Which one and when did you get it?" 2 Pfizer 12. : "Is there any chance you are ?" "When was your last menstrual period?" N/A 13. OTHER SYMPTOMS: "Do you have any other symptoms?" (e.g., chills, fatigue, headache, loss of smell or taste, muscle pain, sore throat) Chills, fatigue, drainage in throat 14. O2 SATURATION MONITOR: "Do you use an oxygen saturation monitor (pulse oximeter) at home?" If Yes, ask "What is your reading (oxygen level) today?" "What is your usual oxygen saturation reading?"(e.g., 95%) 97%-62 Protocols used: Coronavirus (COVID-19) Diagnosed or [id number] documented in this encounter[facility] Miscellaneous Notes* Telephone Encounter - Corrine Lopez RN - 06/11/2022 2:40 PM EST Patient being triaged in One Click encounter. Corrine Lopez, RN * Telephone Encounter - Cris Hernandez Pss - 06/11/2022 2:22 PM EST Appointment with [facility] Nurse @ 3:00 today. Patient tested positive for COVID and wants to have prescription called in to [facility] in [place]. Symptoms: Cold Cough Sinus pressure Runny nose Eyes are burning Patient also stated she fell last night at home. Called the squad to come and pick her up. Contact patient at [phone] Cris Boucher documented in this encounterSub[facility]09-07-2022 Miscellaneous Notes* Telephone Encounter - Adonay Marquez - 04/09/2022 5:15 PM EDT Called pt and informed of results pt indicated understanding. * Telephone Encounter - Sahra Guy MD - 04/09/2022 8:28 AM EDT Hba1c diabetes test well inside normal range Thyroid stimulating hormone is in normal range, indicating normal thyroid function. Sahra Guy MD documented in this encounterSub[facility]08-24-2022 Miscellaneous Notes* Telephone Encounter - Sahra Guy MD - 03/26/2022 8:24 AM EDT The following approved medication requests have been transmitted electronically. Requested Prescriptions Pending Prescriptions Disp Refills metroNIDAZOLE (METROGEL) 0.75 % Topical Gel 135 g 3 Sig: APPLY 1 APPLICATION TO AFFECTED AREA ONCE DAILY JYOTI Guy MD * Telephone Encounter - Tete Mora Pss - 03/25/2022 3:32 PM EDT Patient has been identified by name and date of : Yes Requested Prescriptions Pending Prescriptions Disp Refills metroNIDAZOLE (METROGEL) 0.75 % Topical Gel 135 g 3 Sig: APPLY 1 APPLICATION TO AFFECTED AREA ONCE DAILY TOFACE RX INSTRUCTIONS: Patient aware RX escripted to mail away pharmacy. No need to notify patient. Tete Boucher documented in this encounterSub[facility]08-19-2022 Miscellaneous Notes* Telephone Encounter - Malika Sheikh LPN - 03/21/2022 2:35 PM EDT Mail box is full. Unable to reach patient. * Telephone Encounter - Sahra Guy MD - 03/21/2022 2:07 PM EDT We can only do the blood draw while at the appointment. She might as well wait and we'll draw bloodat the appointment, thyroid and any other needed bloodwork She did have a blood count earlier this year and a thyroid test last year. It's not that likely that this has changed a lot. Sahra Guy MD * Telephone Encounter - Tete Mora Pss - 03/19/2022 4:16 PM EDT Tena Cannon is calling Sahra Guy MD [...] drawn by the nurse at our office. Pleasecall the patient. Patient has been identified by name and birthdate. Duration of symptoms: N/A Person calling: self Call patient at: at home [phone] (home) [phone] (cell) Was an appointment scheduled: No Closing statement: Results or non-symptom based questions: Thank you for calling [facility], your call will be returned within the next business day. Tete Mora Pss documented in this encounterSub[facility]05-19-2022 Miscellaneous Notes* Telephone Encounter - Adonay Marquez - 12/19/2021 2:14 PM EDT Received request for PCP signature from [facility]. Placed in provider's inbox for review. Route to [place] fax documented in this encounterSub[facility]05-13-[facility]22 History of Present illness Narrative* Nakita Bronson - 12/13/2021 4:32 PM EDT POPULATION HEALTH NAVIGATION OUTREACH Action/FYI LVM FOR PATIENT TO CALL BACK AND SCHEDULE CONSULT FOR PT/OT. [phone] Pt identified by name and : NO [...] 13, 2021 4:32 PM documented in this encounterSub[facility]05-05-2022 Miscellaneous Notes* Telephone Encounter - Adonay Marquez - 12/05/2021 8:20 AM EDT [facility] office printed in provider inbox pending signature. * Telephone Encounter - Alicia Sultana - 12/04/2021 1:07 PM EDT [facility] calling to request office note from 10/29/21. Also requesting a physician signature on thenote. Please fax to [phone] documented in this [facility]05-04-2022 Miscellaneous Notes* Telephone Encounter - Malika Sheikh LPN - 12/04/2021 10:52 AM EDT Received 2021 from [facility]. Placed in provider's inbox for review. Route to [place] for faxing [phone] documented in this [facility]05-02-2022 Miscellaneous Notes* Telephone Encounter - Adonay Marquez - 12/02/2021 11:27 AM EDT Update and orders signed and faxed to [facility]. documented in this [facility]04-28-2022 Miscellaneous Notes* Telephone Encounter - Malika Sheikh LPN - 11/28/2021 2:33 PM EDT Received 11/28/2021 from [facility]. Placed in provider's inbox for review. Route to SD for scanning Discharge summary documented in this [facility]04-21-2022 Miscellaneous Notes* Telephone Encounter - Malika Sheikh LPN - 11/21/2021 2:00 PM EDT Received 11/21/2021 from [facility]. Placed in provider's inbox for review. Route to [place] for faxing [phone] Home health certification and plan of care to be signed and faxed. documented in this encounterSub[facility]04-20-2022 Miscellaneous Notes* Telephone Encounter - Malika Sheikh LPN - 11/20/2021 12:01 PM EDT Spoke to Rachel. Additional signed note from 08/08/2021 faxed * Telephone Encounter - Kimberly Boucher - 11/20/2021 11:25 AM EDT Rachel, from [facility] stated she received the fax, but it was not signed by Dr. Guy. Said it was signed by a scribe. Please re-fax to [phone]. Rachel can be reached at [phone]. * Telephone Encounter - Malika Sheikh LPN - 11/20/2021 10:07 AM EDT Fax sent * Telephone Encounter - Rachel Boucher - 11/20/2021 9:00 AM EDT Rachel from [facility] is requesting the chart note from the 10-29-21 visit to beused as a F2F visit for her [facility]. It can be faxed to [phone] Att: Rachel documented in this encounterSub[facility]04-05-2022 Miscellaneous Notes* Telephone Encounter - Leonid Roach APRN.CNP - 11/05/2021 4:20 PM EDT Noted. Leonid Roach APRN.PHARMACIST HELPER * Telephone Encounter - Tete Mora Pss - 11/05/2021 4:11 PM EDT Shabana, Physical Therapist from [facility] called to update the doctor. Today she completed the PT evaluation and start of care: 2 times per week 2 -week period 1 time per week for 2 more weeks She will work with the patient on: Transfers, home safety, strengthening; any pain issues; no further action is requested, she is providing an update. documented in this encounterSub[facility]03-31-2022 Miscellaneous Notes* Telephone Encounter - Leonid Roach APRN.CNP - 10/31/2021 11:47 AM EDT The physical therapy referral was linked with the diagnoses of poliomyelitis of multiple sites and the right knee pain, so they should be able to assess both knees based on this referral. If a new referral is indicated after the therapist's initial assessment and recommendations, we can add at thattime. Leonid Roach APRN.CNP * Telephone Encounter - Viktoria Davison MA - 10/31/2021 11:31 AM EDT Called patient and gave results.Patient would like labs results mailed to her. Printed flowsheet and mailed. Patient would like PT for bilateral knees. The order that is in is for Right Knee only. Please place new referral and patient is going to use [facility]. * Telephone Encounter - Leonid Roach APRN.CNP - 10/31/2021 10:12 AM EDT Let patient know that her labs all looked good. No current anemia. Cholesterol within normal limits. Kidney function is stable. Leonid Roach APRN.CNP documented in this encounterSub[facility]03-29-2022 History of Present illness Narrative* Sahra Guy MD - 10/29/2021 10:00 AM EDT Pt scheduled as Medicare wellness but has [...] ALLERGIES: Keflex [Cephalexin], Novacaine [Other], Vioxx [Rofecoxib], [place]-3 Fish Oil [[place]-3 Fatty Acids-Vitamin E], Advil [Ibuprofen], and Asa [...] of lower extremities with ulcer and inflammation ([facility]) Comment: patient struggling to put on compression [...] By signing my name below, I, Kristen Otto, attest that this documentation has been prepared under the direction and in the presence of Sahra Guy MD. Electronically signed:Kristen MenjivarJakob, October 29, 2021 10:15 AM documented in this encounterSuburban [facility] Hospital [facility]01-23-2019 History of Past illness Narrative* Problem [...] of this encounter (statuses as of 10/29/2021) [facility] of [facility] illness Narrative* Problem [...] of this encounter (statuses as of 10/31/2021) [facility] of [facility] illness Narrative* Problem [...] of this encounter (statuses as of 11/06/2021) [facility] of [facility] illness Narrative* Problem [...] of this encounter (statuses as of 11/20/2021) [facility] of [facility] illness Narrative* Problem [...] of this encounter (statuses as of 11/21/2021) [facility] of Past illness Narrative* Problem [...] of this encounter (statuses as of 11/28/2021) [facility] of [facility] illness Narrative* Problem [...] of this encounter (statuses as of 12/02/2021) [facility] Narrative* Problem [...] of this encounter (statuses as of 12/04/2021) [facility] of [facility] illness Narrative* Problem [...] of this encounter (statuses as of 12/05/2021) [facility] of [facility] illness Narrative* Problem [...] of this encounter (statuses as of 12/13/2021) [facility] Narrative* Problem [...] of this encounter (statuses as of 12/19/2021) [facility] Narrative* Problem [...] of this encounter (statuses as of 03/21/2022) [facility] of [facility] illness Narrative* Problem [...] of this encounter (statuses as of 03/26/2022) [facility] Narrative* Problem [...] of this encounter (statuses as of 04/04/2022) [facility] Narrative* Problem [...] of this encounter (statuses as of 04/09/2022) [facility] Narrative* Problem [...] of this encounter (statuses as of 06/11/2022) [facility] Narrative* Problem [...] of this encounter (statuses as of 06/15/2022) [facility] Narrative* Problem [...] of this encounter (statuses as of 07/14/2022) [facility] Narrative* Problem [...] of this encounter (statuses as of 08/07/2022) [facility] of [facility] illness Narrative* Problem [...] of this encounter (statuses as of 09/17/2022) [facility] Narrative* Problem [...] of this encounter (statuses as of 09/26/2022) [facility] of [facility] illness Narrative* Problem [...] of this encounter (statuses as of 09/30/2022) [place] [address]-23-2019 History of Past illness Narrative* Problem Noted [...] of this encounter (statuses as of 12/09/2022) [address] History of Past illness Narrative* Problem Noted [...] of this encounter (statuses as of 03/10/2023) [facility] Narrative* Problem [...] of this encounter (statuses as of 03/13/2023) [facility] Narrative* Problem [...] of this encounter (statuses as of 03/24/2023) [facility] Narrative* Problem [...] of this encounter (statuses as of 04/04/2023) [facility] Narrative* Problem [...] of this encounter (statuses as of 04/09/2023) [facility] of [facility] Narrative* Problem [...] of this encounter (statuses as of 04/09/2023) [facility] of [facility] Narrative* Problem [...] of this encounter (statuses as of 04/10/2023) [facility] Narrative* Problem [...] of this encounter (statuses as of 04/24/2023) [facility] Narrative* Problem [...] of this encounter (statuses as of 05/09/2023) [facility] of [facility] Narrative* Problem [...] of this encounter (statuses as of 05/27/2023) [facility] of [facility] Narrative* Problem [...] of this encounter (statuses as of 07/14/2023) [facility]* Diagnosis Poliomyelitis osteopathy of multiple sites [...] for lipid disorders [facility] Diagnosis COVID-19- Primary [facility]* Diagnosis Neck pain, chronic Cervicalgia documented in this encounter [facility] note* Diagnosis Post-polio syndrome- Primary Late effects [...] whether esophagitis present [facility]* Diagnosis Obesity, Class III, 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) Morbid obesity documented in this encounter [facility] note* 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 [facility]* 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 documented in this encounter [facility] note* Diagnosis Dysphagia, unspecified type- Primary 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 [facility]* 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, multiple sites documented in this encounter [facility] note* Diagnosis Late effects of acute poliomyelitis- Primary Obstructive sleep apnea on CPAP Obstructive sleep apnea (adult) (pediatric) Gastroesophageal reflux disease, unspecified whether esophagitis present Neck pain, chronic Cervicalgia OAB (overactive bladder) Hypertonicity of bladder Rosacea Class 3 severe obesity with body mass index (BMI) of 40.0 to 44.9 in adult, unspecified obesity type, unspecified whether serious comorbidity present (HCC) Glaucoma, unspecified glaucoma type, unspecified laterality Restless legs syndrome (RLS) documented in this encounter [facility] note* Diagnosis Osteopenia, unspecified location- Primary Obesity, Class III, 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) Morbid obesity Vitamin D deficiency Unspecified vitamin D deficiency Hyperglycemia Other abnormal glucose Hyperlipidemia, mixed Mixed hyperlipidemia [facility]* Diagnosis Hyperglycemia, unspecified- Primary Mixed hyperlipidemia Vitamin D deficiency, unspecified Other specified disorders of bone density and structure, unspecified site documented in this encounter [facility] note* Diagnosis Unable to ambulate Difficulty in [...] left-sided sciatica- Primary documented in this encounter [facility] note* Diagnosis Unable to ambulate Difficulty in [...] 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) Morbid obesity Poliomyelitis osteopathy of multiple sites ([facility]) ([facility]) 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, 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 Hyperlipidemia, mixed Mixed hyperlipidemia Hyperglycemia Other abnormal glucose Vitamin D deficiency Unspecified vitamin D deficiency Essential hypertension Unspecified essential hypertension Primary osteoarthritis involving multiple joints Abnormality of gait Falling episodes Lack of coordination documented in this encounter [facility] note* Diagnosis Unable to ambulate Difficulty in [...] pain, unspecified laterality [facility]* Diagnosis Unable to ambulate Difficulty in [...] region and thigh documented in this encounter [facility] note* Diagnosis Unable to ambulate Difficulty in [...] history of fall [facility]* Diagnosis Unable to ambulate Difficulty in [...] left-sided sciatica- Primary documented in this encounter [facility] note* Diagnosis Unable to ambulate Difficulty in [...] unspecified chronicity- Primary [facility]* Diagnosis Hyperglycemia, unspecified- Primary Mixed hyperlipidemia [facility]* Diagnosis Unable to ambulate Difficulty in [...] unspecified genitourinary condition documented in this encounter [facility] noteNo assessment information availableSharp [facility] Work Phone: Hospital Discharge instructionsAdditional Instructions Take MiraLAX consistently once or twice a day. Continue your senna.[facility] Work Phone: Hospital Discharge instructionsAmbulatory Orders* Physical Therapy Referral Location: None Selected [facility] Work Phone: Reason for referral (narrative)* Diagnostic Procedure Only (Routine) - Pending Review Specialty Diagnoses / Procedures Referred By Lia hennessy Referred To Contact XR IMAGING Diagnoses Acute pain of right knee Procedures XR KNEE LIMITED 2V AP/LAT RIGHT RADIOLOGIC EXAMINATION KNEE 1/2 VIEWS Sahra Guy MD [address] [place] [address] Xr Imaging Referral ID Status Reason Start Date Expiration Date Visits Requested Visits Authorized [id number] Pending Review Auto-Generat ed Referral 10/29/2021 11/28/2022 1 1 * Physical Therapy (Routine) - Authorized Specialty Diagnoses / Procedures Referred By Lia hennessy Referred To Contact [facility] Diagnoses Poliomyelitis osteopathy of multiple sites (HCC) Acute pain of right knee Post-polio syndrome Procedures CONSULT TO PHYSICAL THERAPY PHYSICAL THERAPY EVALUATION HIGH COMPLEX 45 MINS Sahra Guy MD [address] [place] [address] [facility] [place] [address] [place] [id number] Referral ID Status Reason Start Date Expiration Date Visits Requested Visits Authorized [id number] Authorized PCP Requested Referral Auto-Generate d Referral 10/29/2021 10/29/2022 99 99 [facility] for referral (narrative)No reason for referral information availableBlKaiser [facility] Work Phone: Summary Purpose Family History No Family History Records FoundNo Family History Records FoundNo Family History Records FoundNo Family History Records FoundNo Family History Records FoundNo Family History Records FoundNo Family History Records Found Advance Directives No Advanced Directives Records FoundDocuments on File Type Date Recorded 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 Advance Directive(s) Advance Directive(s) 09/07/2018 8:30 AM Advance Directive(s) 08/02/2018 10:02 AM Advance Directive(s) 07/29/2018 11:50 AM Documents on File Type Date Recorded 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 Advance Directive(s) Advance Directive(s) 09/07/2018 8:30 AM Advance Directive(s) 08/02/2018 10:02 AM Advance Directive(s) 07/29/2018 11:50 AM Documents on File Type Date Recorded 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) Procedures CONSULT TO NEUROMUSCULAR MEDIC OFFICE/OUTPATIENT NEW HIGH MDM 60-74 MINUTES Sahra Guy MD [address] [place] [address] [place] [address] Referral ID Status Reason Start Date Expiration Date Visits Requested Visits Authorized [id number] Authorized PCP Requested Referral 03/10/2023 03/09/2024 1 1 Specialty Diagnoses / Procedures Referred By Lia hennessy Referred To Contact [facility] 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) Procedures CONSULT TO PHYSICAL THERAPY PHYSICAL THERAPY EVALUATION HIGH COMPLEX 45 MINS Sahra Guy MD [address] [place] [address] [facility] [address] [address] Referral ID Status Reason Start Date Expiration Date Visits Requested Visits Authorized [id number] Authorized PCP Requested Referral Auto-Generate d Referral 03/10/2023 03/09/2024 99 99 Specialty Diagnoses / Procedures Referred By Contac t Referred To Contact [facility] Diagnoses Post-polio syndrome Procedures CONSULT TO SPEECH THERAPY OFFICE/OUTPATIENT NEW HIGH MDM 60-74 MINUTES Ken Trent MD [address] [place] [id number] [facility] [address] [address] Referral ID Status Reason Start Date Expiration Date Visits Requested Visits Authorized [id number] Authorized Auto-Generat ed Referral 04/03/2023 04/02/2024 99 99 Specialty Diagnoses / Procedures Referred By Contac t Referred To Contact [facility] Diagnoses Post-polio syndrome Procedures CONSULT TO PHYSICAL THERAPY PHYSICAL THERAPY EVALUATION HIGH COMPLEX [place] [address] [place] [id number] [address] Referral ID Status Reason Start Date Expiration Date Visits Requested Visits Authorized [id number] Authorized PCP Requested Referral Auto-Generate d Referral [...] LAB WORK February 28, 2025 6:40 am Chief Complaint Admit Date LAB WORK [...] LAB WORK February 28, 2025 6:40 am constipation March 25, 2025 4: 44pm Chief Complaint Admit Date LAB WORK December [...] LAB WORK February 28, 2025 6:40 am LAB WORK March 07, 2025 5:0 0am constipation March 25, 2025 4: 44pm LUMBAR SPINE March 30, 2025 1: 26pm Rm 5 March 30, 2025 1: 51pm Chief Complaint Admit Date LAB WORK December [...] LAB WORK February 28, 2025 6:40 am LAB WORK March 07, 2025 5:0 0am MONTHLY EXAM March 07, 2025 4:0 6pm constipation March 25, 2025 4: 44pm LUMBAR SPINE March 30, 2025 1: 26pm Rm 5 March 30, 2025 1: 51pm Reason for Visit Admit Date Compression fracture of T11 vertebra Aug ust 2024 1:26pm 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 March 30, 2025 1:26pm Chief Complaint Admit Date LAB WORK December [...] LAB WORK February 28, 2025 6:40 am LAB WORK March 07, 2025 5:0 0am MONTHLY EXAM March 07, 2025 4:0 6pm New Concern March 20, 2025 5: 46pm constipation March 25, 2025 4: 44pm LUMBAR SPINE March 30, 2025 1: 26pm Rm 5 March 30, 2025 1: 51pm Chief Complaint Admit Date LAB WORK December [...] LAB WORK February 28, 2025 6:40 am LAB WORK March 07, 2025 5:0 0am MONTHLY EXAM March 07, 2025 4:0 6pm New Concern March 20, 2025 5: 46pm New Concern March 24, 2025 1: 56pm constipation March 25, 2025 4: 44pm LUMBAR SPINE March 30, 2025 1: 26pm Rm 5 March 30, 2025 1: 51pm Additional Source Comments INFORMATION SOURCE (unrecogn ized section and content) DATE CREATED AUTHOR 08/06/2018 [facility] DATE CREATED AUTHOR AUTHOR'S ORGANIZ ATION 09/21/2018 [facility] DATE CREATED AUTHOR AUTHOR'S ORGANIZ ATION 09/14/2024 [facility] DATE CREATED AUTHOR AUTHOR'S ORGANIZ ATION 12/28/2024 [facility] DATE CREATED AUTHOR AUTHOR'S ORGANIZ ATION 12/28/2024 [facility] DATE CREATED AUTHOR AUTHOR'S ORGANIZ ATION 03/24/2025 [facility] DATE CREATED AUTHOR AUTHOR'S ORGANIZ ATION 05/31/2025 [facility] Source Comments (unrecognize d section and content) In the event this informatio n is protected by the Federal Confidentiality of Alcohol and Drug Abuse Patient Records regulations: The Federal rules restrict any use of the information to criminally investigate or prosecute any alcohol or drug abuse patient.[facility] the event this information is protected by the Federal Confidentiality of Alcohol and Drug Abuse Patient Records regulations: The Federal rules restrict any use of the information to criminally investigate or prosecute any alcohol or drug abuse patient.[facility] the event this information is protected by the Federal Confidentiality of Alcohol and Drug Abuse Patient Records regulations: The Federal rules restrict any use of the information to criminally investigate or prosecute any alcohol or drug abuse patient.[facility]In the event this information is protected by the Federal Confidentiality of Alcohol and Drug Abuse Patient Records regulations: The Federal rules restrict any use of the information to criminally investigate or prosecute any alcohol or drug abuse patient.[facility]In the event this information is protected by the Federal Confidentiality of Alcohol and Drug Abuse Patient Records regulations: The Federal rules restrict any use of the information to criminally investigate or prosecute any alcohol or drug abuse patient.[facility]In the event this information is protected by the Federal Confidentiality of Alcohol and Drug Abuse Patient Records regulations: The Federal rules restrict any use of the information to criminally investigate or prosecute any alcohol or drug abuse patient.[facility]In the event this information is protected by the Federal Confidentiality of Alcohol and Drug Abuse Patient Records regulations: The Federal rules restrict any use of the information to criminally investigate or prosecute any alcohol or drug abuse patient.[facility] HospitalIn the event this information is protected by the Federal Confidentiality of Alcohol and Drug Abuse Patient Records regulations: The Federal rules restrict any use of the information to criminally investigate or prosecute any alcohol or drug abuse patient.[facility] HospitalIn the event this information is protected by the Federal Confidentiality of Alcohol and Drug Abuse Patient Records regulations: The Federal rules restrict any use of the information to criminally investigate or prosecute any alcohol or drug abuse patient.[facility] HospitalIn the event this information is protected by the Federal Confidentiality of Alcohol and Drug Abuse Patient Records regulations: The Federal rules restrict any use of the information to criminally investigate or prosecute any alcohol or drug abuse patient.[facility] HospitalIn the event this information is protected by the Federal Confidentiality of Alcohol and Drug Abuse Patient Records regulations: The Federal rules restrict any use of the information to criminally investigate or prosecute any alcohol or drug abuse patient.[facility] HospitalIn the event this information is protected by the Federal Confidentiality of Alcohol and Drug Abuse Patient Records regulations: The Federal rules restrict any use of the information to criminally investigate or prosecute any alcohol or drug abuse patient.[facility] HospitalIn the event this information is protected by the Federal Confidentiality of Alcohol and Drug Abuse Patient Records regulations: The Federal rules restrict any use of the information to criminally investigate or prosecute any alcohol or drug abuse patient.[facility] HospitalIn the event this information is protected by the Federal Confidentiality of Alcohol and Drug Abuse Patient Records regulations: The Federal rules restrict any use of the information to criminally investigate or prosecute any alcohol or drug abuse patient.[facility] HospitalIn the event this information is protected by the Federal Confidentiality of Alcohol and Drug Abuse Patient Records regulations: The Federal rules restrict any use of the information to criminally investigate or prosecute any alcohol or drug abuse patient.[facility] HospitalIn the event this information is protected by the Federal Confidentiality of Alcohol and Drug Abuse Patient Records regulations: The Federal rules restrict any use of the information to criminally investigate or prosecute any alcohol or drug abuse patient.[facility] HospitalIn the event this information is protected by the Federal Confidentiality of Alcohol and Drug Abuse Patient Records regulations: The Federal rules restrict any use of the information to criminally investigate or prosecute any alcohol or drug abuse patient.[facility] HospitalIn the event this information is protected by the Federal Confidentiality of Alcohol and Drug Abuse Patient Records regulations: The Federal rules restrict any use of the information to criminally investigate or prosecute any alcohol or drug abuse patient.[facility] HospitalIn the event this information is protected by the Federal Confidentiality of Alcohol and Drug Abuse Patient Records regulations: The Federal rules restrict any use of the information to criminally investigate or prosecute any alcohol or drug abuse patient.[facility] HospitalIn the event this information is protected by the Federal Confidentiality of Alcohol and Drug Abuse Patient Records regulations: The Federal rules restrict any use of the information to criminally investigate or prosecute any alcohol or drug abuse patient.[facility] HospitalIn the event this information is protected by the Federal Confidentiality of Alcohol and Drug Abuse Patient Records regulations: The Federal rules restrict any use of the information to criminally investigate or prosecute any alcohol or drug abuse patient.[facility] HospitalIn the event this information is protected by the Federal Confidentiality of Alcohol and Drug Abuse Patient Records regulations: The Federal rules restrict any use of the information to criminally investigate or prosecute any alcohol or drug abuse patient.[facility] HospitalIn the event this information is protected by the Federal Confidentiality of Alcohol and Drug Abuse Patient Records regulations: The Federal rules restrict any use of the information to criminally investigate or prosecute any alcohol or drug abuse patient.[facility] HospitalIn the event this information is protected by the Federal Confidentiality of Alcohol and Drug Abuse Patient Records regulations: The Federal rules restrict any use of the information to criminally investigate or prosecute any alcohol or drug abuse patient.[facility] HospitalIn the event this information is protected by the Federal Confidentiality of Alcohol and Drug Abuse Patient Records regulations: The Federal rules restrict any use of the information to criminally investigate or prosecute any alcohol or drug abuse patient.[facility] HospitalIn the event this information is protected by the Federal Confidentiality of Alcohol and Drug Abuse Patient Records regulations: The Federal rules restrict any use of the information to criminally investigate or prosecute any alcohol or drug abuse patient.[facility] HospitalIn the event this information is protected by the Federal Confidentiality of Alcohol and Drug Abuse Patient Records regulations: The Federal rules restrict any use of the information to criminally investigate or prosecute any alcohol or drug abuse patient.[facility] HospitalIn the event this information is protected by the Federal Confidentiality of Alcohol and Drug Abuse Patient Records regulations: The Federal rules restrict any use of the information to criminally investigate or prosecute any alcohol or drug abuse patient.[facility] HospitalIn the event this information is protected by the Federal Confidentiality of Alcohol and Drug Abuse Patient Records regulations: The Federal rules restrict any use of the information to criminally investigate or prosecute any alcohol or drug abuse patient.[facility] HospitalIn the event this information is protected by the Federal Confidentiality of Alcohol and Drug Abuse Patient Records regulations: The Federal rules restrict any use of the information to criminally investigate or prosecute any alcohol or drug abuse patient.[facility] HospitalIn the event this information is protected by the Federal Confidentiality of Alcohol and Drug Abuse Patient Records regulations: The Federal rules restrict any use of the information to criminally investigate or prosecute any alcohol or drug abuse patient.[facility] HospitalIn the event this information is protected by the Federal Confidentiality of Alcohol and Drug Abuse Patient Records regulations: The Federal rules restrict any use of the information to criminally investigate or prosecute any alcohol or drug abuse patient.[facility] HospitalIn the event this information is protected by the Federal Confidentiality of Alcohol and Drug Abuse Patient Records regulations: The Federal rules restrict any use of the information to criminally investigate or prosecute any alcohol or drug abuse patient.[facility] HospitalIn the event this information is protected by the Federal Confidentiality of Alcohol and Drug Abuse Patient Records regulations: The Federal rules restrict any use of the information to criminally investigate or prosecute any alcohol or drug abuse patient.[facility] HospitalIn the event this information is protected by the Federal Confidentiality of Alcohol and Drug Abuse Patient Records regulations: The Federal rules restrict any use of the information to criminally investigate or prosecute any alcohol or drug abuse patient.[facility] HospitalIn the event this information is protected by the Federal Confidentiality of Alcohol and Drug Abuse Patient Records regulations: The Federal rules restrict any use of the information to criminally investigate or prosecute any alcohol or drug abuse patient.[facility] HospitalIn the event this information is protected by the Federal Confidentiality of Alcohol and Drug Abuse Patient Records regulations: The Federal rules restrict any use of the information to criminally investigate or prosecute any alcohol or drug abuse patient.[facility] HospitalIn the event this information is protected by the Federal Confidentiality of Alcohol and Drug Abuse Patient Records regulations: The Federal rules restrict any use of the information to criminally investigate or prosecute any alcohol or drug abuse patient.[facility] HospitalIn the event this information is protected by the Federal Confidentiality of Alcohol and Drug Abuse Patient Records regulations: The Federal rules restrict any use of the information to criminally investigate or prosecute any alcohol or drug abuse patient.[facility] HospitalIn the event this information is protected by the Federal Confidentiality of Alcohol and Drug Abuse Patient Records regulations: The Federal rules restrict any use of the information to criminally investigate or prosecute any alcohol or drug abuse patient.[facility] HospitalIn the event this information is protected by the Federal Confidentiality of Alcohol and Drug Abuse Patient Records regulations: The Federal rules restrict any use of the information to criminally investigate or prosecute any alcohol or drug abuse patient.[facility] HospitalIn the event this information is protected by the Federal Confidentiality of Alcohol and Drug Abuse Patient Records regulations: The Federal rules restrict any use of the information to criminally investigate or prosecute any alcohol or drug abuse patient.[facility] HospitalIn the event this information is protected by the Federal Confidentiality of Alcohol and Drug Abuse Patient Records regulations: The Federal rules restrict any use of the information to criminally investigate or prosecute any alcohol or drug abuse patient.[facility] HospitalIn the event this information is protected by the Federal Confidentiality of Alcohol and Drug Abuse Patient Records regulations: The Federal rules restrict any use of the information to criminally investigate or prosecute any alcohol or drug abuse patient.[facility] HospitalIn the event this information is protected by the Federal Confidentiality of Alcohol and Drug Abuse Patient Records regulations: The Federal rules restrict any use of the information to criminally investigate or prosecute any alcohol or drug abuse patient.[facility] HospitalIn the event this information is protected by the Federal Confidentiality of Alcohol and Drug Abuse Patient Records regulations: The Federal rules restrict any use of the information to criminally investigate or prosecute any alcohol or drug abuse patient.[facility] HospitalIn the event this information is protected by the Federal Confidentiality of Alcohol and Drug Abuse Patient Records regulations: The Federal rules restrict any use of the information to criminally investigate or prosecute any alcohol or drug abuse patient.[facility] HospitalIn the event this information is protected by the Federal Confidentiality of Alcohol and Drug Abuse Patient Records regulations: The Federal rules restrict any use of the information to criminally investigate or prosecute any alcohol or drug abuse patient.[facility] HospitalIn the event this information is protected by the Federal Confidentiality of Alcohol and Drug Abuse Patient Records regulations: The Federal rules restrict any use of the information to criminally investigate or prosecute any alcohol or drug abuse patient.[facility] HospitalIn the event this information is protected by the Federal Confidentiality of Alcohol and Drug Abuse Patient Records regulations: The Federal rules restrict any use of the information to criminally investigate or prosecute any alcohol or drug abuse patient.[facility] HospitalIn the event this information is protected by the Federal Confidentiality of Alcohol and Drug Abuse Patient Records regulations: The Federal rules restrict any use of the information to criminally investigate or prosecute any alcohol or drug abuse patient.[facility] HospitalIn the event this information is protected by the Federal Confidentiality of Alcohol and Drug Abuse Patient Records regulations: The Federal rules restrict any use of the information to criminally investigate or prosecute any alcohol or drug abuse patient.[facility] HospitalIn the event this information is protected by the Federal Confidentiality of Alcohol and Drug Abuse Patient Records regulations: The Federal rules restrict any use of the information to criminally investigate or prosecute any alcohol or drug abuse patient.[facility] HospitalIn the event this information is protected by the Federal Confidentiality of Alcohol and Drug Abuse Patient Records regulations: The Federal rules restrict any use of the information to criminally investigate or prosecute any alcohol or drug abuse patient.[facility] HospitalIn the event this information is protected by the Federal Confidentiality of Alcohol and Drug Abuse Patient Records regulations: The Federal rules restrict any use of the information to criminally investigate or prosecute any alcohol or drug abuse patient.[facility] HospitalIn the event this information is protected by the Federal Confidentiality of Alcohol and Drug Abuse Patient Records regulations: The Federal rules restrict any use of the information to criminally investigate or prosecute any alcohol or drug abuse patient.[facility] HospitalIn the event this information is protected by the Federal Confidentiality of Alcohol and Drug Abuse Patient Records regulations: The Federal rules restrict any use of the information to criminally investigate or prosecute any alcohol or drug abuse patient.[facility] HospitalIn the event this information is protected by the Federal Confidentiality of Alcohol and Drug Abuse Patient Records regulations: The Federal rules restrict any use of the information to criminally investigate or prosecute any alcohol or drug abuse patient.[facility] HospitalIn the event this information is protected by the Federal Confidentiality of Alcohol and Drug Abuse Patient Records regulations: The Federal rules restrict any use of the information to criminally investigate or prosecute any alcohol or drug abuse patient.[facility] HospitalIn the event this information is protected by the Federal Confidentiality of Alcohol and Drug Abuse Patient Records regulations: The Federal rules restrict any use of the information to criminally investigate or prosecute any alcohol or drug abuse patient.[facility] HospitalIn the event this information is protected by the Federal Confidentiality of Alcohol and Drug Abuse Patient Records regulations: The Federal rules restrict any use of the information to criminally investigate or prosecute any alcohol or drug abuse patient.[facility] HospitalIn the event this information is protected by the Federal Confidentiality of Alcohol and Drug Abuse Patient Records regulations: The Federal rules restrict any use of the information to criminally investigate or prosecute any alcohol or drug abuse patient.[facility] HospitalIn the event this information is protected by the Federal Confidentiality of Alcohol and Drug Abuse Patient Records regulations: The Federal rules restrict any use of the information to criminally investigate or prosecute any alcohol or drug abuse patient.[facility] HospitalIn the event this information is protected by the Federal Confidentiality of Alcohol and Drug Abuse Patient Records regulations: The Federal rules restrict any use of the information to criminally investigate or prosecute any alcohol or drug abuse patient.[facility] HospitalIn the event this information is protected by the Federal Confidentiality of Alcohol and Drug Abuse Patient Records regulations: The Federal rules restrict any use of the information to criminally investigate or prosecute any alcohol or drug abuse patient.[facility] HospitalIn the event this information is protected by the Federal Confidentiality of Alcohol and Drug Abuse Patient Records regulations: The Federal rules restrict any use of the information to criminally investigate or prosecute any alcohol or drug abuse patient.[facility] HospitalIn the event this information is protected by the Federal Confidentiality of Alcohol and Drug Abuse Patient Records regulations: The Federal rules restrict any use of the information to criminally investigate or prosecute any alcohol or drug abuse patient.[facility] HospitalIn the event this information is protected by the Federal Confidentiality of Alcohol and Drug Abuse Patient Records regulations: The Federal rules restrict any use of the information to criminally investigate or prosecute any alcohol or drug abuse patient.[facility] HospitalIn the event this information is protected by the Federal Confidentiality of Alcohol and Drug Abuse Patient Records regulations: The Federal rules restrict any use of the information to criminally investigate or prosecute any alcohol or drug abuse patient.[facility] HospitalIn the event this information is protected by the Federal Confidentiality of Alcohol and Drug Abuse Patient Records regulations: The Federal rules restrict any use of the information to criminally investigate or prosecute any alcohol or drug abuse patient.[facility] HospitalIn the event this information is protected by the Federal Confidentiality of Alcohol and Drug Abuse Patient Records regulations: The Federal rules restrict any use of the information to criminally investigate or prosecute any alcohol or drug abuse patient.[facility] HospitalIn the event this information is protected by the Federal Confidentiality of Alcohol and Drug Abuse Patient Records regulations: The Federal rules restrict any use of the information to criminally investigate or prosecute any alcohol or drug abuse patient.[facility] HospitalIn the event this information is protected by the Federal Confidentiality of Alcohol and Drug Abuse Patient Records regulations: The Federal rules restrict any use of the information to criminally investigate or prosecute any alcohol or drug abuse patient.[facility] Hospital[facility] the event this information is protected by the Federal Confidentiality of Alcohol and Drug Abuse Patient Records regulations: The Federal rules restrict any use of the information to criminally investigate or prosecute any alcohol or drug abuse patient.[facility] Hospital[facility] the event this information is protected by the Federal Confidentiality of Alcohol and Drug Abuse Patient Records regulations: The Federal rules restrict any use of the information to criminally investigate or prosecute any alcohol or drug abuse patient.[facility] Hospital[facility] the event this information is protected by the Federal Confidentiality of Alcohol and Drug Abuse Patient Records regulations: The Federal rules restrict any use of the information to criminally investigate or prosecute any alcohol or drug abuse patient.[facility] Hospital[facility] the event this information is protected by the Federal Confidentiality of Alcohol and Drug Abuse Patient Records regulations: The Federal rules restrict any use of the information to criminally investigate or prosecute any alcohol or drug abuse patient.[facility] the event this information is protected by the Federal Confidentiality of Alcohol and Drug Abuse Patient Records regulations: The Federal rules restrict any use of the information to criminally investigate or prosecute any alcohol or drug abuse patient.[facility] HospitalIn the event this information is protected by the Federal Confidentiality of Alcohol and Drug Abuse Patient Records regulations: The Federal rules restrict any use of the information to criminally investigate or prosecute any alcohol or drug abuse patient.[facility] HospitalIn the event this information is protected by the Federal Confidentiality of Alcohol and Drug Abuse Patient Records regulations: The Federal rules restrict any use of the information to criminally investigate or prosecute any alcohol or drug abuse patient.[facility] HospitalIn the event this information is protected by the Federal Confidentiality of Alcohol and Drug Abuse Patient Records regulations: The Federal rules restrict any use of the information to criminally investigate or prosecute any alcohol or drug abuse patient.[facility] Reason for Visit (unrecogniz ed section [...] 03/11/2023 Reason Comments Orders OT referral request [place] [facility] Reason Comments post polio Specialty Diagnoses / Procedures Referred By Lia hennessy Referred To Contact 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[facility]) Procedures CONSULT TO NEUROMUSCULAR MEDIC OFFICE/OUTPATIENT [facility] 60-74 MINUTES Sahra Guy MD [address] [place] [address] [place] [address] Referral ID Status Reason Start Date Expiration Date V isits Requested Visits Authorized [id number] Closed PCP Requested Referral 03/10/2023 03/09/2024 1 1 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 Comments Speech Evaluation Speech Therapy Speech Discharge Specialty Diagnoses / Procedures Referred By Lia hennessy Referred To Contact [facility] Diagnoses Post-polio syndrome Procedures CONSULT TO SPEECH THERAPY OFFICE/OUTPATIENT [facility] 60-74 MINUTES Ken Trent MD [address] [place] [address] [facility] [place] [address] Referral ID Status Reason Start Date Expiration Date Visits Requested Visits Authorized [id number] Authorized Auto-Generat ed Referral 04/03/2023 04/02/2024 99 99 Reason Comments PT Eval PT Discharge Specialty Diagnoses / Procedures Referred By Lia hennessy Referred To Contact [facility] 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) Procedures CONSULT TO PHYSICAL THERAPY PHYSICAL THERAPY EVALUATION HIGH COMPLEX 45 MINS Sahra Guy MD [address] [place] [address] [place] [address] [facility] [place] [address] [place] [address] Referral ID Status Reason Start Date Expiration Date Visits Requested Visits Authorized [id number] Authorized PCP Requested Referral Auto-Generate d Referral 03/10/2023 03/09/2024 99 99 Reason Comments Received Outside Medical Records [place] [facility] I Move in Assessment 11/25/2023 Patient Update Reason Comments Forms Reason Onset Date Comments Refill Request 01/12/2024 Reason Onset Date Comments Refill Request 01/25/2024 Reason Onset Date Comments Refill Request 02/23/2024 Reason Comments Orders Labs fax to [facility] Reason Comments RSV vaccine Reason Comments Question Reason Comments Patient Question Reason Onset Date Comments Refill Request 06/20/2024 [facility] Reason Onset Date Comments Refill Request 07/05/2024 Reason Comments Muscle Aches Reason Comments Low Back Pain Reason Comments Orders PT and OT Reason Comments Patient Update At office visit on please fill all Rx's that apply per patient [facility] mail order Reason Comments Medicare Wellness Exam Reason Comments Orders [facility] Reason Comments Office Notes Reason Comments Results Labs Reason Comments Returning Patient's Call Reason Comments Orders Patient Update Lab orders were faxe d Reason Comments Follow Up Blood work sciatic p ain left Reason Comments Received Outside Medical Records [facility] Face to Face Encounter Documentation encounter 08/23/2024 Reason Onset Date Comments Nurse Triage Call Return Call Request 09/23/2024 Reason Comments Orders Reason Comments PT Eval Reason Comments Orders [facility] Reason Comments Received Outside Medical Records [facility] OT Evaluation performed no further treatment. [...] Health Navigation Outreach 01/09/2025 [employer] [place] [facility] Reason Comments Consult Urinary Frequency FREQUENT UTI Reason Comments Results Orders Reason Comments FYI-No Action Needed Care Teams (unrecognized sec tion and content) Ocean Lifeguard Specialist Relationship Specialty Start Date End Date Sahra Guy MD [address] [facility] [place] [address] PCP - General Family Practice 02/20/16 Ocean Lifeguard Specialist Relationship Specialty Start Date End Date Sahra Guy MD [address] [facility] [place] [address] PCP - General Family Practice 02/20/16 Ocean Lifeguard Specialist Relationship Specialty Start Date End Date Sahra Guy MD [address] [facility] [place] [address] PCP - General Family Practice 02/20/16 Ocean Lifeguard Specialist Relationship Specialty Start Date End Date Sahra Guy MD [address] [facility] [place] [address] PCP - General Family Practice 02/20/16 Ocean Lifeguard Specialist Relationship Specialty Start Date End Date Sahra Guy MD [address] [facility] [place] [address] PCP - General Family Practice 02/20/16 Ocean Lifeguard Specialist Relationship Specialty Start Date End Date Sahra Guy MD [address] [facility] [place] [address] PCP - General Family Practice 02/20/16 Ocean Lifeguard Specialist Relationship Specialty Start Date End Date Sahra Guy MD [address] [facility] [place] [place] [address] PCP - General Family Practice 02/20/16 Ocean Lifeguard Specialist Relationship Specialty Start Date End Date Sahra Guy MD [address] [facility] [place] [address] PCP - General Family Medicine 02/20/16 Ocean Lifeguard Specialist Relationship Specialty Start Date End Date Sahra Guy MD [address] [facility] [place] [address] PCP - General Family Medicine 02/20/16 Ocean Lifeguard Specialist Relationship Specialty Start Date End Date Sahra Guy MD [address] [facility] [place] [address] PCP - General Family Medicine 02/20/16 Ocean Lifeguard Specialist Relationship Specialty Start Date End Date Sahra Guy MD [address] [facility] [place] [address] PCP - General Family Medicine 02/20/16 Ocean Lifeguard Specialist Relationship Specialty Start Date End Date Sahra Guy MD [address] [facility] [place] [address] PCP - General Family Medicine 02/20/16 Ocean Lifeguard Specialist Relationship Specialty Start Date End Date Sahra Guy MD [address] [facility] [place] [place] [address] PCP - General Family Medicine 02/20/16 Ocean Lifeguard Specialist Relationship Specialty Start Date End Date Sahra Guy MD [address] [facility] [place] [address] PCP - General Family Medicine 02/20/16 Ocean Lifeguard Specialist Relationship Specialty Start Date End Date Sarha Guy MD [address] [facility] [place] [address] PCP - General Family Medicine 02/20/16 Ocean Lifeguard Specialist Relationship Specialty Start Date End Date Sahra Guy MD [address] [facility] [place] [place] [address] PCP - General Family Medicine 02/20/16 Ocean Lifeguard Specialist Relationship Specialty Start Date End Date Sahra Guy MD [address] [facility] [place] [address] PCP - General Family Medicine 02/20/16 Ocean Lifeguard Specialist Relationship Specialty Start Date End Date Sahra Guy MD [address] [facility] [address] [place], [place] [address] PCP - General Family Medicine 02/20/16 Ocean Lifeguard Specialist Relationship Specialty Start Date End Date Sahra Guy MD [address] [facility] [place] [place] [address] PCP - General Family Medicine 02/20/16 Ocean Lifeguard Specialist Relationship Specialty Start Date End Date Sahra Guy MD [address] [facility] [place] [place] [address] PCP - General Family Medicine 02/20/16 Ocean Lifeguard Specialist Relationship Specialty Start Date End Date Sahra Guy MD [address] [facility] [place] [place] [address] PCP - General Family Medicine 02/20/16 Ocean Lifeguard Specialist Relationship Specialty Start Date End Date Sahra Guy MD [address] [facility] [address] [place], [place] [address] PCP - General Family Medicine 02/20/16 Ocean Lifeguard Specialist Relationship Specialty Start Date End Date Sahra Guy MD [address] [facility] [place] [place] [address] PCP - General Family Medicine 02/20/16 Ocean Lifeguard Specialist Relationship Specialty Start Date End Date Sahra Guy MD [address] [facility] [address] [place], [place] [id number] PCP - General Family Medicine 02/20/16 Ocean Lifeguard Specialist Relationship Specialty Start Date End Date Sahra Guy MD [address] [facility] [address] [place], [place] [id number] PCP - General Family Medicine 02/20/16 Ocean Lifeguard Specialist Relationship Specialty Start Date End Date Sahra Guy MD [address] [facility] [place] [place] [address] PCP - General Family Medicine 02/20/16 Ocean Lifeguard Specialist Relationship Specialty Start Date End Date Sahra Guy MD [address] [facility] [place] [place] [address] PCP - General Family Medicine 02/20/16 Ocean Lifeguard Specialist Relationship Specialty Start Date End Date Sahra Guy MD [address] [facility] [place] [place] [address] PCP - General Family Medicine 02/20/16 Ocean Lifeguard Specialist Relationship Specialty Start Date End Date Sahra Guy MD [address] [facility] [place] [place] [address] PCP - General Family Medicine 02/20/16 Ocean Lifeguard Specialist Relationship Specialty Start Date End Date Sahra Guy MD [address] [facility] [place] [place] [address] PCP - General Family Medicine 02/20/16 Ocean Lifeguard Specialist Relationship Specialty Start Date End Date Sahra Guy [address] [facility] [place] [place] [address] PCP - General 03/14/17 Ocean Lifeguard Specialist Relationship Specialty Start Date End Date Sahra Guy MD [address] [facility] [place] [place] [address] PCP - General Family Medicine 02/20/16 Ocean Lifeguard Specialist Relationship Specialty Start Date End Date Sahra Guy MD [address] [facility] [place] [address] PCP - General Family Medicine 02/20/16 Leonid Leal EQUIPMENT SERVICE ASSOCIATE.PHARMACIST HELPER [address] [facility] [place] [address] Tree Doctor Internal Medicine 07/10/24 Ocean Lifeguard Specialist Relationship Specialty Start Date End Date Sahra Guy MD [address] [facility] [place] [place] [address] PCP - General Family Medicine 02/20/16 Leonid Leal, EQUIPMENT SERVICE ASSOCIATE.PHARMACIST HELPER [address] [facility] [place] [place] [address] Tree Doctor Internal Medicine 07/10/24 Ocean Lifeguard Specialist Relationship Specialty Start Date End Date Sahra Guy MD [address] [facility] [place] [place] [address] PCP - General Family Medicine 02/20/16 Leonid Leal, EQUIPMENT SERVICE ASSOCIATE.PHARMACIST HELPER [address] [facility] [place] [place] [address] Tree Doctor Internal Medicine 07/10/24 Ocean Lifeguard Specialist Relationship Specialty Start Date End Date Sahra Guy MD [address] [facility] [place] [place] [address] PCP - General Family Medicine 02/20/16 Leonid Leal EQUIPMENT SERVICE ASSOCIATE.PHARMACIST HELPER [address] [facility] [address] [place], [place] [address] Tree Doctor Internal Medicine 07/10/24 Ocean Lifeguard Specialist Relationship Specialty Start Date End Date Sahra Guy MD [address] [facility] [address] [place], [place] [address] PCP - General Family Medicine 02/20/16 Leonid Leal, EQUIPMENT SERVICE ASSOCIATE.PHARMACIST HELPER [address] [facility] [address] [place], [place] [id number] Tree Doctor Internal Medicine 07/10/24 Ocean Lifeguard Specialist Relationship Specialty Start Date End Date Sahra Guy MD [address] [facility] [address] [place], [place] [address] PCP - General Family Medicine 02/20/16 Leonid Leal, EQUIPMENT SERVICE ASSOCIATE.PHARMACIST HELPER [address] [facility] [address] [place], [place] [id number] Tree Doctor Internal Medicine 07/10/24 Ocean Lifeguard Specialist Relationship Specialty Start Date End Date Sahra Guy MD [address] [facility] [address] [place], [place] [address] PCP - General Family Medicine 02/20/16 Leonid Leal, EQUIPMENT SERVICE ASSOCIATE.PHARMACIST HELPER [address] [facility] [address] [place], [place] [phone] Tree Doctor Internal Medicine 07/10/24 Ocean Lifeguard Specialist Relationship Specialty Start Date End Date Sahra Guy MD [address] [facility] [address] [place], [place] [address] PCP - General Family Medicine 02/20/16 Leonid Leal, EQUIPMENT SERVICE ASSOCIATE.PHARMACIST HELPER [address] [facility] [address] [place], [place] [id number] Tree Doctor Internal Medicine 07/10/24 Ocean Lifeguard Specialist Relationship Specialty Start Date End Date Sahra Guy MD [address] [facility] [address] [place], [place] [id number] PCP - General Family Medicine 02/20/16 Leonid Leal, EQUIPMENT SERVICE ASSOCIATE.PHARMACIST HELPER [address] [facility] [address] [place], [place] [address] Tree Doctor Internal Medicine 07/10/24 Ocean Lifeguard Specialist Relationship Specialty Start Date End Date Sahra Guy MD [address] [facility] [address] [place], [place] [address] PCP - General Family Medicine 02/20/16 Leonid Leal, EQUIPMENT SERVICE ASSOCIATE.PHARMACIST HELPER [address] [facility] [place] [address] Tree Doctor Internal Medicine 07/10/24 Ocean Lifeguard Specialist Relationship Specialty Start Date End Date Sahra Guy MD [address] [facility] [place] [place] [address] PCP - General Family Medicine 02/20/16 Leonid Leal, EQUIPMENT SERVICE ASSOCIATE.PHARMACIST HELPER [address] [facility] [address] [place], [place] [address] Tree Doctor Internal Medicine 07/10/24 Ocean Lifeguard Specialist Relationship Specialty Start Date End Date Sahra Guy MD [address] [facility] [place] [address] PCP - General Family Medicine 02/20/16 Leonid Leal, EQUIPMENT SERVICE ASSOCIATE.PHARMACIST HELPER [address] [facility] [address] [place], [place] [address] [phone] [facility] Internal Medicine 07/10/24 Ocean Lifeguard Specialist Relationship Specialty Start Date End Date Sahra Guy MD [address] [facility] [address] [place], [place] [address] [phone] PCP - General Family Medicine 02/20/16 Leonid Leal, EQUIPMENT SERVICE ASSOCIATE.PHARMACIST HELPER [address] [facility] [address] [place], [place] [address] [phone] Tree Doctor Internal Medicine 07/10/24 Ocean Lifeguard Specialist Relationship Specialty Start Date End Date Sahra Guy MD [address] [facility] [place] [address] PCP - General Family Medicine 02/20/16 Leonid Leal, EQUIPMENT SERVICE ASSOCIATE.PHARMACIST HELPER [address] [facility] [place] [place] [address] Tree Doctor Internal Medicine 07/10/24 Ocean Lifeguard Specialist Relationship Specialty Start Date End Date Sahra Guy MD [address] [facility] [place] [address] PCP - General Family Medicine 02/20/16 Leonid Leal, EQUIPMENT SERVICE ASSOCIATE.PHARMACIST HELPER [address] [facility] [place] [address] Tree Doctor Internal Medicine 07/10/24 Ocean Lifeguard Specialist Relationship Specialty Start Date End Date Sahra Guy MD [address] [facility] [place] [place] [address] PCP - General Family Medicine 02/20/16 Leonid Leal, EQUIPMENT SERVICE ASSOCIATE.PHARMACIST HELPER [address] [facility] [place] [place] [address] Tree Doctor Internal Medicine 07/10/24 Ocean Lifeguard Specialist Relationship Specialty Start Date End Date Sahra Guy MD [address] [facility] [place] [address] PCP - General Family Medicine 02/20/16 Leonid Leal, EQUIPMENT SERVICE ASSOCIATE.PHARMACIST HELPER [address] [facility] [place] [place] [address] Tree Doctor Internal Medicine 07/10/24 Ocean Lifeguard Specialist Relationship Specialty Start Date End Date Sahra Guy MD [address] [facility] [place] [address] PCP - General Family Medicine 02/20/16 Leonid Leal, EQUIPMENT SERVICE ASSOCIATE.PHARMACIST HELPER [address] [facility] [place] [address] Tree Doctor Internal Medicine 07/10/24 Ocean Lifeguard Specialist Relationship Specialty Start Date End Date Shara Guy MD [address] [facility] [place] [address] PCP - General Family Medicine 02/20/16 Leonid Leal, EQUIPMENT SERVICE ASSOCIATE.PHARMACIST HELPER [address] [facility] [place] [address] Tree Doctor Internal Medicine 07/10/24 Ocean Lifeguard Specialist Relationship Specialty Start Date End Date Sahra Guy MD [address] [facility] [place] [address] PCP - General Family Medicine 02/20/16 Leonid Leal, EQUIPMENT SERVICE ASSOCIATE.PHARMACIST HELPER [address] [facility] [place] [address] Tree Doctor Internal Medicine 07/10/24 Ocean Lifeguard Specialist Relationship Specialty Start Date End Date Sahra Guy MD [address] [facility] [place] [address] PCP - General Family Medicine 02/20/16 Leonid Leal, EQUIPMENT SERVICE ASSOCIATE.PHARMACIST HELPER [address] [facility] [place] [address] Tree Doctor Internal Medicine 07/10/24 Team Status: Active Member [...] Inactive Member Role/Relationship Status Dates Roxanne Padilla INTERPRETER, INTERPRETER-C Attending Provider Active Start: December 22, 2024 [...] Member Role/Relationship Status Dates Roxanne Padilla NP INTERPRETERNehalC Attending Provider Active Start: December 28, 2024 [...] Inactive Member Role/Relationship Status Dates Roxanne Padilla INTERPRETER, INTERPRETER-C Attending Provider Active Start: January 09, 2025 [...] Inactive Member Role/Relationship Status Dates Roxanne Padilla INTERPRETER, INTERPRETER-C Attending Provider Active Start: January 10, 2025 [...] Member Role/Relationship Status Dates Roxanne Padilla NP, INTERPRETER-C Attending Provider Active Start: January 19, 2025 [...] Member Role/Relationship Status Dates Roxanne Padilla NP INTERPRETER-C Attending Provider Active Start: January 24, 2025 [...] Member Role/Relationship Status Dates Roxanne Padilla NP INTERPRETER-C Attending Provider Active Start: January 09, 2025 [...] Chey THOMAS MD Attending Provider Active Start: March 07, 2025 Team Status: Active Member Role/Relationship Status Dates Dr. Chey Kumar MD Primary Care Provider Active Team Status: Inactive Member Role/Relationship Status Dates Dr. Chey Kumar MD Primary Care Provider Active Start: March 25, 2025 End: March 25, 2025 Vicente Leon MD Emergency Provider Active Star t: March 25, 2025 End: March 25, 2025 Team Status: Active Member Role/Relationship Status Dates ISAK Sutton Attending Provider Active Star t: March 30, 2025 Dr. Chey Kumar MD Primary Care Provider Active Start: March 30, 2025 Dr. Chey Kumar MD Referring Provider Active Start: March 30, 2025 Team Status: Inactive Member Role/Relationship Status Dates Dr. Chey Kumar MD Primary Care Provider Active Start: March 30, 2025 End: March 30, 2025 Dr. Chepe Melo MD Attending Provider Active S tart: March 30, 2025 End: March 30, 2025 Team Status: Inactive Member Role/Relationship Status Dates ISAK Sutton Attending Provider Active Star t: March 30, 2025 End: March 30, 2025 Dr. Chey Kumar MD Primary Care Provider Active Start: March 30, 2025 End: March 30, 2025 Dr. Chey Kumar MD Referring Provider Active Start: March 30, 2025 End: March 30, 2025 Team Status: Inactive Member Role/Relationship Status Dates Dr. Chey Kumar MD Primary Care Provider Active Start: March 07, 2025 End: March 07, 2025 Roxanne Padilla INTERPRETER, INTERPRETER-C Attending Provider Active Start: March 07, 2025 End: March 07, 2025 Team Status: Inactive Member Role/Relationship Status Dates Dr. Chey Kumar MD Primary Care Provider Active Start: March 25, 2025 End: March 25, 2025 Vicente Leon MD Attending Provider Active Star t: March 25, 2025 End: March 25, 2025 Vicente Leon MD Emergency Provider Active Star t: March 25, 2025 End: March 25, 2025 Team Status: Inactive Member Role/Relationship Status Dates ISAK Sutton Attending Provider Active Star t: March 30, 2025 End: March 30, 2025 Dr. Chey Kumar MD Primary Care Provider Active Start: March 30, 2025 End: March 30, 2025 Dr. Chey Kumar MD Referring Provider Active Start: March 30, 2025 End: March 30, 2025 Team Status: Inactive Member Role/Relationship Status Dates Dr. Chey Kumar MD Primary Care Provider Active Start: March 30, 2025 End: March 30, 2025 Dr. Chepe Melo MD Attending Provider Active S tart: March 30, 2025 End: March 30, 2025 Team Status: Inactive Member Role/Relationship Status Dates Dr. Chey Kumar MD Primary Care Provider Active Start: March 20, 2025 End: March 20, 2025 Roxanne Padilla INTERPRETER, INTERPRETER-C Attending Provider Active Start: March 20, 2025 End: March 20, 2025 Team Status: Inactive Member Role/Relationship Status Dates Dr. Chey Kumar MD Primary Care Provider Active Start: March 25, 2025 End: March 25, 2025 Vicente Leon MD Attending Provider Active Star t: March 25, 2025 End: March 25, 2025 Vicente Leon MD Emergency Provider Active Star t: March 25, 2025 End: March 25, 2025 Team Status: Inactive Member Role/Relationship Status Dates ISAK Sutton Attending Provider Active Star t: March 30, 2025 End: March 30, 2025 Dr. Chey Kumar MD Primary Care Provider Active Start: March 30, 2025 End: March 30, 2025 Dr. Chey Kumar MD Referring Provider Active Start: March 30, 2025 End: March 30, 2025 Team Status: Inactive Member Role/Relationship Status Dates Dr. Chey Kumar MD Primary Care Provider Active Start: March 30, 2025 End: March 30, 2025 Dr. Chepe Melo MD Attending Provider Active S tart: March 30, 2025 End: March 30, 2025 Team Status: Active Member Role/Relationship Status Dates Dr. Chey Kumar MD Primary Care Provider Active Start: April 05, 2025 Chey THOMAS MD Attending Provider Active Start: April 05, 2025 Team Status: Inactive Member Role/Relationship Status Dates Dr. Chey Kumar MD Primary Care Provider Active Start: March 24, 2025 End: March 24, 2025 Roxanne Padilla INTERPRETER, INTERPRETER-C Attending Provider Active Start: March 24, 2025 End: March 24, 2025 Team Status: Inactive Member Role/Relationship Status Dates Dr. Chey Kumar MD Primary Care Provider Active Start: March 25, 2025 End: March 25, 2025 Vicente Leon MD Attending Provider Active Star t: March 25, 2025 End: March 25, 2025 Vicente Leon MD Emergency Provider Active Star t: March 25, 2025 End: March 25, 2025 Team Status: Inactive Member Role/Relationship Status Dates ISAK Sutton Attending Provider Active Star t: March 30, 2025 End: March 30, 2025 Dr. Chey Kumar MD Primary Care Provider Active Start: March 30, 2025 End: March 30, 2025 Dr. Chey Kumar MD Referring Provider Active Start: March 30, 2025 End: March 30, 2025 Team Status: Inactive Member Role/Relationship Status Dates Dr. Chey Kumar MD Primary Care Provider Active Start: March 30, 2025 End: March 30, 2025 Dr. Chepe Melo MD Attending Provider Active S tart: March 30, 2025 End: March 30, 2025 Team Status: Active Member Role/Relationship Status Dates Dr. Chey Kumar MD Primary Care Provider Active Start: April 05, 2025 Chey THOMAS MD Attending Provider Active Start: April 05, 2025 Goals (unrecognized section and content) Goals [...] BE BASED ON THE PRIMARY CLINICAL RECORDS. [facility]. provides no warranty or guarantee of the accuracy or completeness of information in this document.
[2025-06-07 07:49] LABS: Hematocrit 34.1 % (37-47); Hemoglobin 11.2 g/dL (12.0-15.0); Immature Granulocytes Count 0.010 X10^3/uL (0.0-0.0); Mean Corp Hgb Conc 32.8 g/dL (32-36); Mean Corpuscular Volume 92.2 fL (81-99); Mean Platelet Vol. 11.1 fl (6.2-12.0); NRBC Flagged by Analyzer 0 % (0-5); Platelet Count 246 K/mm3 (150-450); RBC Distribution Width CV 12.9 % (11.6-14.6); RBC Distribution Width SD 43.3 fl (35.1-43.9); Red Blood Count 3.70 M/mm3 (4.2-5.4); White Blood Count 4.2 K/mm3 (4.4-11.0)
[2025-06-07 08:07] LABS: Anion Gap 9 (5-15); BUN 17 mg/dL (4-19); BUN/Creat Ratio 63.7 RATIO (10-20); Calcium,Total 9.5 mg/dL (7.6-11.0); Carbon Dioxide 26.5 mmol/L (21.0-32.0); Chloride 104 mmol/L (98-108); Glucose 93 mg/dL (70-99); Potassium 4.3 mmol/L (3.3-5.1)
== END ==
LOC: OLS.WHLEAS 05:00
PROVIDERS: PCP Internal Medicine; Visit Provider Internal Medicine
DX: R48.8 Other symbolic dysfunctions (principal); M54.50 Low back pain, unspecified; M62.561 Muscle wasting and atrophy, not elsewhere classified, right lower leg
CPT/HCPCS: 36415; 80048; 85025

== ENCOUNTER → 2025-06-30 05:00 | Outpatient (REF) | payer MEDICARE, SELFPAY ==
--- OUTSIDE RECORDS SUMMARY | 2025-06-30 03:54 | XMS RPT_ITS | CCD ---
Author Organization [facility] CliniSymn Care Team Providers Care Senior Energy Market Coordinator Name Role Phone PROVIDER, UNKNOWN Unavailable Unavailable [...] Provider Sahra Guy Primary Care Provider Mel AFRICAN STUDIES PROFESSOR.ENVIRONMENTAL SOLUTIONS ENGINEER, Leonid Unavailable SAHRA GUY Attending Unavailable SAHRA [...] SAHRA GUY Attending Unavailable SAHRA GUY R Primary Care Unavailable LEONID LEAL Attending Unavailable SAHRA GUY R Primary Care Unavailable MALENA, SAHRA R Primary Care Unavailable NARCISO SHERMAN Attending Unavailable Stacy MADDEN, Dr. Guerrier Primary Care Provider Vicente Leon MD Emergency Provider Tyra Ruvalcaba Attending Provider Stacy MADDEN, Dr. Guerrier Referring Provider Lorie MADDEN, Dr. Mo Attending Provider [phone] Stacy MADDEN, Dr. Guerrier Primary Care Provider Vicente Leon MD Attending Provider [phone] Oleghe OLS, Efewongbe Attending Unavailabl e Oleghe OLS, Efewongbe Referring Unavailabl e Oleghe OLS, Efewongbe Attending Unavailabl e Oleghe OLS, Efewongbe Attending Unavailabl e Oleghe, Efewongbe Primary Care Unavailable Chepe Melo Attending Unavailable Oleghe OLS, Efadebe Attending Unavailabl e Oleghe, Efewongbe Primary Care Unavailable Oleghe OLS, Efewongbe Attending Unavailabl e Oleghe OLS, Efewongbe Attending Unavailabl e Oleghe OLS, Efewongbe Attending Unavailabl e Oleghe, Efewongbe Primary Care Unavailable Oleghe, Efewongbe Primary Care Unavailable Roxanne Stewart Attending Unavailable Oleghe, Efewongbe Primary Care Unavailable Vicente Leon [...] e Oleghe, Efewongbe Primary Care Unavailable Tickton LIME FILTER OPERATOR, Roxanne Attending Unavailable [place]ton LIME FILTER OPERATOR, Roxanne Attending Unavailable Oleghe, Efewongbe Attending Unavailable Tyra Osorio Attending Unavailable Oleghe, Efewongbe Referring Unavailable Oleghe, Efewongbe Primary Care Unavailable Oleghe, Efewongbe Primary Care Unavailable Oleghe OLS, Efewongbe Attending Unavailabl e Tickton LIME FILTER OPERATOR, Roxanne Attending Unavailable Oleghe, Efewongbe Primary Care Unavailable Oleghe OLS, Efewongbe Attending Unavailabl e Tickton LIME FILTER OPERATOR, Roxanne Attending Unavailable Oleghe, Efewongbe Primary Care Unavailable Tickton LIME FILTER OPERATOR, Roxanne Attending Unavailable Oleghe, Efewongbe Primary Care Unavailable Oleghe, Efewongbe Primary Care Unavailable Oleghe, Efewongbe Attending Unavailable Oleghe, Efewongbe Attending Unavailable Tickton LIME FILTER OPERATOR, Roxanne Attending Unavailable [place]ton LIME FILTER OPERATOR, Roxanne Attending Unavailable [place]ton LIME FILTER OPERATOR, Roxanne Attending Unavailable [place]ickton LIME FILTER OPERATOR, Roxanne Attending Unavailable Oleghe OLS, Efewongbe Attending Unavailabl e Allergies Allergy Classification Reported Allergen(s) Allergy Type Date of Onset Reaction(s) Facility (20 sources) Cephalexin; Translations: [CEPHALEXIN] Drug Allergy 5 Diarrhea, GI Upset [facility] Repository (20 sources) Ibuprofen; Translations: [IBUPROFEN] Drug Allergy 5 Intolerance [facility] Repository (20 sources) rofecoxib; Translations: [ROFECOXIB] Drug Allergy 5 Intolerance [facility] Repository (20 sources) Salicylic Acid; Translations: [SALICYLATES] Drug Allergy 5 Intolerance [facility] Repository (1 source) OTHER; Translations: [OTHER] Propensity to adverse reactions (disorder) [facility] Repository (20 sources) OMEGA-3 FATTY ACIDS-VITAMIN E; Translations: [OMEGA-3 FATTY ACIDS-VITAMIN E] Propensity to adverse reactions (disorder) 7 Intolerance [facility] Repository (20 sources) novacaine [Other] Propensity to adverse reactions 5 Intolerance [facility] (20 sources) Procaine; Translations: [PROCAINE HCL] Drug Allergy 4 Intolerance [facility] Work Phone: (7 sources) NSAIDs; Translations: [NSAIDS (NON-STEROIDAL ANTI-INFLAMMATO RY DRUG)] Propensity to adverse reactions to drug 5 Unknown [facility] (15 sources) Cephalexin; Translations: [cephalexin monohydrate] Drug Allergy 4 Diarrhea [facility] (15 sources) BLOOD THINNERS; Translations: [BLOOD THINNERS] Propensity to adverse reactions 4 Other [facility] Comment on above: BLOOD FROM EYE [...] above: Take 1 capsule by mo ut once daily. bisacodyl 10 mg rectal suppository [...] mg/ml ophthalmic solution (10 sources) Plasma Volume Pharmacy Technician Infusion Start: 03-30-2025 Dextran 70-Hypromellose drops Active 1 NMA OPHTHALMIC TWICE A DAY March 30, 2025 12:00am dextran 70-hypro mellose (ARTIFICIAL TEARS,[id number],) 0.1-0.3 % ophthalmic solution Use 1 drop in both eyes two times a day. Active docusate sodium 50 mg / sennosides, halfway 8.6 mg oral tablet (6 sources) Start: [...] 325 mg by mouth every other day. dphjsavp-heyz-dxj6-C -lety-bosw (OSTEO BI-FLEX TRIPLE STRENGTH) 750 mg-644 mg- 30 mg-1 mg tab (6 sources) take 1 tablet by mouth once daily jlyskvlv-liwh-kgk3- C-lety-bosw (OSTEO BI-FLEX TRIPLE STRENGTH) 750 mg-644 [...] mouth once daily. Active polyethylene glycol 3350 59833 mg powder for oral solution (6 sources) [...] eyes two times a day. Active rutin/hesp/bioflav/C/ wnyuun823 (BIOFLEX ORAL) (20 sources) take 1 capsule by mouth twice daily rutin/hesp/bioflav/C /nrrifg147 (BIOFLEX ORAL) Take 1 capsule by mouth twice daily. Suspended take 1 capsule by mo uth twice daily rutin/hesp/bioflav/C/yxtmuz488 (BIOFLEX ORAL) Take 1 capsule by mouth twice daily. Active take 1 capsule by mo uth twice daily rutin/hesp/bioflav/C/atahzq386 (BIOFLEX ORAL) Take 1 capsule by mouth [...] (1 source) Opioid Agonist Start: 5 End: take 1 tablet by mouth every four [...] Virus Nucleoside Analog DNA Polymerase Inhibitor Start: End: take 1 tablet by mouth three times [...] Comment on above: Take 1 tablet by nemeiso th three times daily for 7 days. [...] Ergocalciferol (Vitamin D2) 2,000 UNIT tablet Discontinued 64471 U PO EVERY WEEK March 10, 2014 [...] ophthalmic solution (14 sources) Prostaglandin Analog Start: End: 5 take 1 drop(s) into the eye(s) once [...] of occurrence (1 source) Unspecified place in shelter as the place of occurrence of the external cause; Translations: [Fall at shelter, subsequent encounter] Onset: 5 Episodic Esophageal disorders [...] [Disorder of bone, unspecified] 03-26-2007 Episodic Other SILK OPENER infection and poliomyelitis (20 sources) Post poliomyelitis [...] Translations: [Thoracic compression fracture, closed, initial encounter ([facility])] Onset: 5 Episodic Other fractures (14 sources) [...] E Codes: Fall (9 sources) Fall in shelter; Translations: [Unspecified fall, initial encounter] Onset: 12-08-2024 [...] Auto (Unsp spec) [#/Vol] 1.77 10*3/uL 0.83-4.51 [facility] Absolute neutrophil countOrd ered By: Chey Kumar on 04-05-2025 Neutrophils (Bld) [#/Vol] 2.8 10*3/uL 2.0-7.7 [facility] Anion gap in Serum or Plasma Ordered By: Chey Kumar on 04-05-2025 Anion gap [Moles/Vol] 8 mmol/L 5-15 [facility] Automated lymphocyte count a s percentage of total leukocytesOrdered By: Chey Kumar on 04-05-2025 Lymphocytes/100 WBC Auto (Unsp spec) 32.5 % 19-41 [facility] BUN/creatinine ratioOrdered By: Chey Kumar on 04-05-2025 Urea nitrogen/Creatinine [Mass ratio] 60.2 mg/mg High 10-20 [facility] Basophil percentageOrdered B y: Chey Kumar on 04-05-2025 Basophils/100 WBC (Bld) 0.9 % 0-1 [facility] Bilirubin directOrdered By: Chey Kumar on 04-05-2025 Bilirubin.direct [Mass/Vol] 0.10 mg/dL 0.00-0.30 [facility] Comment on above: Hemolysis present, R esults could be affected. Bilirubin, totalOrdered By: Chey Kumar on 04-05-2025 Bilirubin [Mass/Vol] 0.27 mg/dL 0.00-1.30 [facility] Carbon dioxide, total [Moles /volume] in Central venous bloodOrdered By: Chey Kumar on 04-05-2025 CO2 [Moles/Vol] 25.0 mmol/L 21.0-32.0 [facility] Chloride assayOrdered By: Walt Kumar on 04-05-2025 Chloride [Moles/Vol] 105 mmol/L 98-108 [facility] Eosinophil percentageOrdered By: Chey Kumar on 04-05-2025 Eosinophils/100 WBC (Bld) 2.0 % 0-5 [facility] Erythrocyte distribution wid th ratioOrdered By: Chey Kumar on 04-05-2025 Erythrocyte distribution width (RBC) [Ratio] 13.2 % 11.6-14.6 [facility] Erythrocyte distribution wid th standard deviationOrdered By: Chey Kumar on 04-05-2025 Erythrocyte distribution width (RBC) [Ratio] 44.5 fl High 35.1-43.9 [facility] Glomerular filtration rate ( GFR) estimation/1.73 sq m using serum, plasma, or whole bOrdered By: Chey Kumar on 04-05-2025 GFR/1.73 sq M.predicted among non-blacks MDRD (S/P/Bld) [Vol rate/Area] 104 mL/min/{1.73_m2} >60 [facility] Comment on above: mL/min/1.73m2 CKD-EP I Creatinine Equation (2020) Hematocrit Auto (Bld) [Volum e fraction]Ordered By: Chey Kumar on 04-05-2025 Hematocrit (Bld) [Volume fraction] 33.4 % Low 37-47 [facility] Hemoglobin A1c percentageOrd ered By: Chey Kumar on 04-05-2025 HbA1c (Bld) [Mass fraction] 4.9 % <5.7 [facility] Comment on above: Normal < 5.7 % Predi abetic 5.7 - 6.4 % Diabetic >or= 6.5 % Please note range changes. Hemoglobin measurementOrdere d By: Chey Kumar on 04-05-2025 Hemoglobin (Bld) [Mass/Vol] 11.2 g/dL Low 12.0-15.0 [facility] Immature granulocytes/100 WB C Auto (Bld)Ordered By: Chey Kumar on 04-05-2025 Immature granulocytes/100 WBC (Bld) 0.200 % 0.0-0.9 [facility] Comment on above: IG% - Immature Granu locytes (promyelocytes, myelocytes and metamyelocytes) > 1% indicates that a LEFT SHIFT is Present. Laboratory - Chemistry and C hemistry - challengeOrdered By: Chey Kumar on 04-05-2025 AST [Catalytic activity/Vol] 23 U/L <32 [facility] Comment on above: Hemolysis present, R esults could be affected. MCV (mean corpuscular volume ) determinationOrdered By: Chey Kumar on 04-05-2025 MCV (RBC) [Entitic vol] 92.3 fL 81-99 [facility] Mean corpuscular hemoglobin (MCH) determinationOrdered By: Chey Kumar 04-05-2025 MCH (RBC) [Entitic mass] 30.9 pg 27.0-32.0 [facility] Mean corpuscular hemoglobin concentration (MCHC) determinationOrdered By: Chey Kumar on 04-05-2025 MCHC (RBC) [Mass/Vol] 33.5 g/dL 32-36 [facility] Mean platelet volume determi nationOrdered By: Chey Kumar on 04-05-2025 Platelet mean volume (Bld) [Entitic vol] 11.5 fL 6.2-12.0 [facility] Monocyte percentageOrdered B y: Chey Kumar on 04-05-2025 Monocytes/100 WBC (Bld) 12.5 % High 0-10 [facility] Neutrophil percentageOrdered By: Chey Kumar on 04-05-2025 Neutrophils/100 WBC (Bld) 51.9 % 47-70 [facility] Nucleated red blood cell per centageOrdered By: Chye Kumar on 04-05-2025 Nucleated RBC/100 WBC (Bld) [Ratio] 0 % 0-5 [facility] Platelet countOrdered By: Walt adeyoli Kumar on 04-05-2025 Platelets (Bld) [#/Vol] 229 10*3/uL 150-450 [facility] Potassium measurement (mass/ volume)Ordered By: Chey Kumar on 04-05-2025 Potassium (Unsp spec) [Mass/Vol] 4.3 mmol/L 3.3-5.1 [facility] Comment on above: Hemolysis present, R esults could be affected. RBC Auto (Bld) [#/Vol]Ordere d By: Chey Kumar on 04-05-2025 RBC (Bld) [#/Vol] 3.62 10*6/uL Low 4.2-5.4 [facility] Serum creatinine measurement (mass/volume)Ordered By: Chey Kumar on 04-05-2025 Creatinine [Mass/Vol] 0.29 mg/dL Low 0.70-1.20 [facility] Serum globulin measurementOr dered By: Chey Kumar on 04-05-2025 Globulin (S) [Mass/Vol] 2.4 g/dL 2.2-4.2 [facility] Serum glucose measurement (m ass/volume)Ordered By: Chey Kumar on 04-05-2025 Glucose [Mass/Vol] 101 mg/dL High 70-99 [facility] Serum or plasma alanine grimaldo otransferase (ALT) measurementOrdered By: Chey Kumar on 04-05-2025 ALT [Catalytic activity/Vol] 14 U/L <35 [facility] Serum or plasma albumin ori urement (mass/volume)Ordered By: Chey Kumar on 04-05-2025 Albumin [Mass/Vol] 3.2 g/dL Low 3.4-4.8 [facility] Serum or plasma alkaline nikia sphatase measurementOrdered By: Chey Kumar on 04-05-2025 ALP [Catalytic activity/Vol] 62 U/L 35-104 [facility] Serum or plasma calcium ori urement (mass/volume)Ordered By: Chey Kumar on 04-05-2025 Calcium [Mass/Vol] 9.6 mg/dL 7.6-11.0 [facility] Serum or plasma urea nitroge n measurement (mass/volume)Ordered By: Chey Kumar on 04-05-2025 Urea nitrogen [Mass/Vol] 17 mg/dL 4-19 [facility] Sodium levelOrdered By: Melinda aguilaralvin Stacy on 04-05-2025 Sodium [Moles/Vol] 138 mmol/L 133-145 [facility] Total proteinOrdered By: Gary Kumar on 04-05-2025 Protein [Mass/Vol] 5.6 g/dL Low 5.9-8.4 [facility] White blood cell (WBC) count Ordered By: Chey Kumar on 04-05-2025 WBC (Bld) [#/Vol] 5.4 10*3/uL 4.4-11.0 [facility] Lumbar Spine 2 or 3 Viewson 03-30-2025 Lumbar Spine 2 or 3 Views [facility] Services [address] [place] [address] [id number] Lumbar Spine 2 or 3 Views MR#: [id number] Acct: [id number] Name: TENA CANNON Rep #: [id number] : 1940 F 84 From: Edgard Briceño MD PCP: Dr. Chey Kumar MD Status: DEP AMB Study: Lumbar Spine 2 or 3 Views Date of Exam: Exam# [id number] Ordering Dr: Tyra Osorio PROCEDURE: LUMBAR SPINE [...] diffuse idiopathic skeletal hyperostosis DISH.. Reading Location: [facility] CC: ISAK Sutton; Dr. Chey Kumar MD Certified Ophthalmic Technician: Signed Normal [facility] Orthopedic Visit Reporton Orthopedic Visit Report [facility] [address] [place] [address] OFFICE VISIT Date of Service: 03/30/25 MR#: [id number] Acct: [id number] Name: TENA CANNON Rep #: [id number] : 1940 Provider: ISAK Sutton Age/Sex: 84/F [place] [facility] Status: Signed Intake Vital Signs 02/18/25 13:04 [...] bisacodyl 10 mg rectal suppository 10 mg NE QDAY PRN 03/30/2503/30 History brimonidine 0.1 % [...] you fallen in the past year?: Yes (5//25) [facility] Medical History (Updated 03/30/25 @ 16:19 by ISAK Sutton) History of fractured vertebra Polio Surgical History (Updated 03/30/25 @ 14:17 by Corrie eMad) History of kyphoplasty Social History Smoking Status: [...] brace that was given to her at [facility] after the fall. The main reason she is her is to check on the healing of the fractures and to see whether or not she needs to continue to wear it. Patient says that when she wears the brace that she does not notice any significant improvement. Her daughter states that Darshan is not comfortable removing the brace without [...] years ago had a kyphoplasty at the [facility]. Ortho Exam General General: Yes no acute [...] No hyperreflexia (more content not included)... Normal [facility] Abd Decub and/or Erect(Darrell blon 03-25-2025 Abd Decub and/or Erect([facility] [address] [place] [address] Abd Decub and/or Erect([facility] MR#: [id number] Acct: [id number] Name: TENA CANNON Rep #: [id number] : 1940 F 84 From: Joshua Cota DO PCP: Dr. Chey Kumar MD Status: PRE ER Study: Abd Decub and/or Erect([facility] Date of Exam: 0 03/25/25 Exam# [id number] Ordering Dr: Vicente Leon MD PROCEDURE: ABD DECUB AND/OR ERECT(PORTABLE 03/25/2025 REASON FOR EXAM: CONSTIPATION TECHNIQUE: ABD DECUB AND/OR ERECT(PORTABLE COMPARISON: December 08, 2024 CT FINDINGS: Bowel gas: Nonobstructing nonspecific bowel-gas pattern. Dkah-af-qdxpmsqz fecal load consistent with constipation. Calcifications: No suspicious calcifications. Bones: Degenerative changes of the lumbar spine. Kyphoplasties cement in L3. Other: Cholecystectomy clips in the gallbladder fossa. Pronounced left convexity scoliosis of the thoracolumbar spine RAD/Abd Decub and/or Erect([facility] IMPRESSION: Possible fecal impaction in the rectum [facility] CC: Dr. Vicente Leon MD; Dr. Chey Kumar MD Certified Ophthalmic Technician: Signed Normal [facility] Emergency Department Summary on 03-25-2025 Emergency Department Summary [facility] Medical Records Department [address] [place] [address] Emergency Department Summary 03/25/25 MR#: [id number] Acct: [id number] Name: TENA CANNON Rep #: [id number] : 1940 84 From: Vicente Leon MD PCP: Dr. Chey Kumar MD Status:REG ER Location: ED HPI HPI - GI History of Present Illness Chief Complaint: Constipation Narrative Narrative: 84-year-old female presents from [facility] with constipation for the last [...] movement but is unable to do so. [facility] Medical History History of fractured vertebra Polio [...] History Record (more content not included)... Normal [facility] 03-22-2025 [facility] Telephone (FAMDNA) TENA CANNON ([id number]) 1940 F Date Time Provider Department 03/22/25 [...] daughter: Juan Call patient at: on cell [phone] (home) [phone] (cell) Was an appointment scheduled: No Closing statement: Results or non-symptom based questions: Thank you for calling [facility], your call will be returned within the next business day. [facility] Allergies As of Date: 03/22/2025 Noted Allergy [...] times a day. - dextran 70-hypromellose (ARTIFICIAL TEARS,[id number],) 0.1-0.3 % ophthalmic solution Use 1 drop in both eyes two times a day. - lidocaine (ASPERFLEX, LIDOCAINE,) 4 % patch Apply 1 application as directed once daily. Apply to lower back, on for twelve hours, off for twelve hours. - kxckpbbi-mexf-vwh5-C-m ang-bosw (OSTEO BI-FLEX TRIPLE STRENGTH) 750 mg-644 [...] - cyclopentolate (more content not included)... Normal [facility] Absolute lymphocyte countOrd ered By: Chey Kumar on 03-07-2025 Lymphocytes Auto (Unsp spec) [#/Vol] 1.93 10*3/uL 0.83-4.51 [facility] Absolute neutrophil countOrd ered By: Chey Singletongriseldaalvin on 03-07-2025 Neutrophils (Bld) [#/Vol] 1.9 10*3/uL Low 2.0-7.7 [facility] Anion gap in Serum or Plasma Ordered By: Chey Kumar on 03-07-2025 Anion gap [Moles/Vol] 10 mmol/L 5-15 [facility] Automated lymphocyte count a s percentage of total leukocytesOrdered By: Chey Kumar on 03-07-2025 Lymphocytes/100 WBC Auto (Unsp spec) 40.5 % 19-41 [facility] BUN/creatinine ratioOrdered By: carmenmonticelloyoli Kumar on 03-07-2025 Urea nitrogen/Creatinine [Mass ratio] 47.2 mg/mg High 10-20 [facility] Basophil percentageOrdered B y: Chey Kumar on 03-07-2025 Basophils/100 WBC (Bld) 1.1 % High 0-1 [facility] Carbon dioxide, total [Moles /volume] in Central venous bloodOrdered By: Chey Kumar on 03-07-2025 CO2 [Moles/Vol] 25.6 mmol/L 21.0-32.0 [facility] Chloride assayOrdered By: Walt Kumar on 03-07-2025 Chloride [Moles/Vol] 102 mmol/L 98-108 [facility] Eosinophil percentageOrdered By: Chey Menge on 03-07-2025 Eosinophils/100 WBC (Bld) 3.6 % 0-5 [facility] Erythrocyte distribution wid th ratioOrdered By: Chey Kumar on 03-07-2025 Erythrocyte distribution width (RBC) [Ratio] 14.1 % 11.6-14.6 [facility] Erythrocyte distribution wid th standard deviationOrdered By: Chey Kumar on 03-07-2025 Erythrocyte distribution width (RBC) [Ratio] 49.0 fl High 35.1-43.9 [facility] Glomerular filtration rate ( GFR) estimation/1.73 sq m using serum, plasma, or whole bOrdered By: Chey Kumar on 03-07-2025 GFR/1.73 sq M.predicted among non-blacks MDRD (S/P/Bld) [Vol rate/Area] 108 mL/min/{1.73_m2} >60 [facility] Comment on above: mL/min/1.73m2 CKD-EP I Creatinine Equation (2020) Hematocrit Auto (Bld) [Volum e fraction]Ordered By: Chey Kumar on 03-07-2025 Hematocrit (Bld) [Volume fraction] 33.3 % Low 37-47 [facility] Hemoglobin measurementOrdere d By: Chey Kumar on 03-07-2025 Hemoglobin (Bld) [Mass/Vol] 10.9 g/dL Low 12.0-15.0 [facility] Immature granulocytes/100 WB C Auto (Bld)Ordered By: Chey Kumar on 03-07-2025 Immature granulocytes/100 WBC (Bld) 0.200 % 0.0-0.9 [facility] Comment on above: IG% - Immature Granu locytes (promyelocytes, myelocytes and metamyelocytes) > 1% indicates that a LEFT SHIFT is Present. MCV (mean corpuscular volume ) determinationOrdered By: Chey Kumar on 03-07-2025 MCV (RBC) [Entitic vol] 93.8 fL 81-99 [facility] Mean corpuscular hemoglobin (MCH) determinationOrdered By: Chey Kumar on 03-07-2025 MCH (RBC) [Entitic mass] 30.7 pg 27.0-32.0 [facility] Mean corpuscular hemoglobin concentration (MCHC) determinationOrdered By: Chey Kumar 03-07-2025 MCHC (RBC) [Mass/Vol] 32.7 g/dL 32-36 [facility] Mean platelet volume determi nationOrdered By: Chey Kumar 03-07-2025 Platelet mean volume (Bld) [Entitic vol] 11.3 fL 6.2-12.0 [facility] Monocyte percentageOrdered B y: Waltcarmenshayoli Singletongriseldaalvin on 03-07-2025 Monocytes/100 WBC (Bld) 14.5 % High 0-10 [facility] Neutrophil percentageOrdered By: Melindashayoli Singletongriseldaalvin on 03-07-2025 Neutrophils/100 WBC (Bld) 40.1 % Low 47-70 [facility] Nucleated red blood cell per centageOrdered By: Melindashayoli Singletongriseldaalvin on 03-07-2025 Nucleated RBC/100 WBC (Bld) [Ratio] 0 % 0-5 [facility] Platelet countOrdered By: Walt carmenbrittany Kumar on 03-07-2025 Platelets (Bld) [#/Vol] 238 10*3/uL 150-450 [facility] Potassium measurement (mass/ volume)Ordered By: Chey Kumar on 03-07-2025 Potassium (Unsp spec) [Mass/Vol] 3.8 mmol/L 3.3-5.1 [facility] RBC Auto (Bld) [#/Vol]Ordere d By: Chey Kumar on 03-07-2025 RBC (Bld) [#/Vol] 3.55 10*6/uL Low 4.2-5.4 [facility] Serum creatinine measurement (mass/volume)Ordered By: Chey Kumar on 03-07-2025 Creatinine [Mass/Vol] 0.25 mg/dL Low 0.70-1.20 [facility] Serum glucose measurement (m ass/volume)Ordered By: Chey Kumar on 03-07-2025 Glucose [Mass/Vol] 95 mg/dL 70-99 [facility] Serum or plasma calcium ori urement (mass/volume)Ordered By: Chey Kumar on 03-07-2025 Calcium [Mass/Vol] 9.8 mg/dL 7.6-11.0 [facility] Serum or plasma urea nitroge n measurement (mass/volume)Ordered By: Chey Kumar on 03-07-2025 Urea nitrogen [Mass/Vol] 12 mg/dL 4-19 [facility] Sodium levelOrdered By: Melinda Kumar on 03-07-2025 Sodium [Moles/Vol] 138 mmol/L 133-145 [facility] White blood cell (WBC) count Ordered By: Waltcarmenbrittany Manigriseldaalvin on 03-07-2025 WBC (Bld) [#/Vol] 4.8 10*3/uL 4.4-11.0 [facility] Absolute lymphocyte countOrd ered By: Melindashayoli Singletongriseldaalvin on 02-28-2025 Lymphocytes Auto (Unsp spec) [#/Vol] 1.77 10*3/uL 0.83-4.51 [facility] Absolute neutrophil countOrd ered By: Melindashayoli Singletongriseldaalvin on 02-28-2025 Neutrophils (Bld) [#/Vol] 2.6 10*3/uL 2.0-7.7 [facility] Anion gap in Serum or Plasma Ordered By: Chey Singletongriseldaalvin on 02-28-2025 Anion gap [Moles/Vol] 10 mmol/L 5-15 [facility] Automated lymphocyte count a s percentage of total leukocytesOrdered By: Melindashayoli Singletongriseldaalvin on 02-28-2025 Lymphocytes/100 WBC Auto (Unsp spec) 34.0 % 19-41 [facility] BUN/creatinine ratioOrdered By: Chey Singletongriseldaalvin on 02-28-2025 Urea nitrogen/Creatinine [Mass ratio] 50.2 mg/mg High 10-20 [facility] Basophil percentageOrdered B y: Melindahsayoli Singletongriseldaalvin on 02-28-2025 Basophils/100 WBC (Bld) 1.2 % High 0-1 [facility] Carbon dioxide, total [Moles /volume] in Central venous bloodOrdered By: Chey Kumar on 02-28-2025 CO2 [Moles/Vol] 25.0 mmol/L 21.0-32.0 [facility] Chloride assayOrdered By: Walt Kumar on 02-28-2025 Chloride [Moles/Vol] 101 mmol/L 98-108 [facility] Eosinophil percentageOrdered By: Chey Singletongriseldaalvin on 02-28-2025 Eosinophils/100 WBC (Bld) 2.3 % 0-5 [facility] Erythrocyte distribution wid th ratioOrdered By: Chey Kumar on 02-28-2025 Erythrocyte distribution width (RBC) [Ratio] 14.2 % 11.6-14.6 [facility] Erythrocyte distribution wid th standard deviationOrdered By: Chey Kumar on 02-28-2025 Erythrocyte distribution width (RBC) [Ratio] 48.8 fl High 35.1-43.9 [facility] Glomerular filtration rate ( GFR) estimation/1.73 sq m using serum, plasma, or whole bOrdered By: Chey Kumar on 02-28-2025 GFR/1.73 sq M.predicted among non-blacks MDRD (S/P/Bld) [Vol rate/Area] 110 mL/min/{1.73_m2} >60 [facility] Comment on above: mL/min/1.73m2 CKD-EP I Creatinine Equation (2020) Hematocrit Auto (Bld) [Volum e fraction]Ordered By: Melindamonticelloyoli Kumar on 02-28-2025 Hematocrit (Bld) [Volume fraction] 33.2 % Low 37-47 [facility] Hemoglobin measurementOrdere d By: garfield Kumar on 02-28-2025 Hemoglobin (Bld) [Mass/Vol] 11.0 g/dL Low 12.0-15.0 [facility] Immature granulocytes/100 WB C Auto (Bld)Ordered By: garfield Kumar 02-28-2025 Immature granulocytes/100 WBC (Bld) 0.200 % 0.0-0.9 [facility] Comment on above: IG% - Immature Granu locytes (promyelocytes, myelocytes and metamyelocytes) > 1% indicates that a LEFT SHIFT is Present. Iron measurement (mass/mass) Ordered By: Chey Kumar 02-28-2025 Iron (Unsp spec) [Mass/Mass] 51 ug/dL 50-170 [facility] MCV (mean corpuscular volume ) determinationOrdered By: Chey Kumar 02-28-2025 MCV (RBC) [Entitic vol] 93.3 fL 81-99 [facility] Mean corpuscular hemoglobin (MCH) determinationOrdered By: garfield Kumar 5 MCH (RBC) [Entitic mass] 30.9 pg 27.0-32.0 [facility] Mean corpuscular hemoglobin concentration (MCHC) determinationOrdered By: Chey Kumar on 02-28-2025 MCHC (RBC) [Mass/Vol] 33.1 g/dL 32-36 [facility] Mean platelet volume determi nationOrdered By: Chey Kumar on 02-28-2025 Platelet mean volume (Bld) [Entitic vol] 11.0 fL 6.2-12.0 [facility] Monocyte percentageOrdered B y: Chey Kumar on 02-28-2025 Monocytes/100 WBC (Bld) 12.9 % High 0-10 [facility] Neutrophil percentageOrdered By: Chey Kumar on 02-28-2025 Neutrophils/100 WBC (Bld) 49.4 % 47-70 [facility] No Panel InformationOrdered By: Chey Mengalvin on 02-28-2025 Unsaturated Iron Binding Capacity 120 ug/dL Low 228-428 [facility] Nucleated red blood cell per centageOrdered By: Chey Kumar on 02-28-2025 Nucleated RBC/100 WBC (Bld) [Ratio] 0 % 0-5 [facility] Platelet countOrdered By: Walt Kumar on 02-28-2025 Platelets (Bld) [#/Vol] 228 10*3/uL 150-450 [facility] Potassium measurement (mass/ volume)Ordered By: Waltcarmenshayoli Singletongriseldaalvin on 02-28-2025 Potassium (Unsp spec) [Mass/Vol] 4.0 mmol/L 3.3-5.1 [facility] RBC Auto (Bld) [#/Vol]Ordere d By: Chey Manigriseldaalvin on 02-28-2025 RBC (Bld) [#/Vol] 3.56 10*6/uL Low 4.2-5.4 [facility] Serum creatinine measurement (mass/volume)Ordered By: Waltcarmenshayoli Singletongriseldaalvin on 02-28-2025 Creatinine [Mass/Vol] 0.24 mg/dL Low 0.70-1.20 [facility] Serum glucose measurement (m ass/volume)Ordered By: Chey Singletongriseldaalvin on 02-28-2025 Glucose [Mass/Vol] 108 mg/dL High 70-99 [facility] Serum or plasma calcium ori urement (mass/volume)Ordered By: Waltcarmenshayoli Singletongriseldaalvin on 02-28-2025 Calcium [Mass/Vol] 9.5 mg/dL 7.6-11.0 [facility] Serum or plasma ferritin skylar surement (mass/volume)Ordered By: Chey Kumar on 02-28-2025 Ferritin [Mass/Vol] 1486 ng/mL High 22-378 [facility] Serum or plasma iron saturat ion measurement (mass fraction)Ordered By: Chey Kumar on 02-28-2025 Iron saturation [Mass fraction] 29.8 % 13-59 [facility] Comment on above: Previous reported re sult: 30.0 %Edited by: KAVYA on 02/28/25:0818 AMENDED REPORT 02/28/25 0818 IRON SATURATION previously reported as: 30.0 % Serum or plasma urea nitroge n measurement (mass/volume)Ordered By: Chey Kumar on 02-28-2025 Urea nitrogen [Mass/Vol] 12 mg/dL 4-19 [facility] Sodium levelOrdered By: Melinda brittany Manigriseldaalvin on 02-28-2025 Sodium [Moles/Vol] 136 mmol/L 133-145 [facility] White blood cell (WBC) count Ordered By: Chey Kumar on 02-28-2025 WBC (Bld) [#/Vol] 5.2 10*3/uL 4.4-11.0 [facility] Absolute lymphocyte countOrd ered By: Chey Kumar on 02-21-2025 Lymphocytes Auto (Unsp spec) [#/Vol] 1.88 10*3/uL 0.83-4.51 [facility] Absolute neutrophil countOrd ered By: Chey Kumar on 02-21-2025 Neutrophils (Bld) [#/Vol] 1.7 10*3/uL Low 2.0-7.7 [facility] Anion gap in Serum or Plasma Ordered By: Chey Kumar on 02-21-2025 Anion gap [Moles/Vol] 10 mmol/L 5-15 [facility] Automated lymphocyte count a s percentage of total leukocytesOrdered By: Chey Kumar on 02-21-2025 Lymphocytes/100 WBC Auto (Unsp spec) 43.4 % High 19-41 [facility] BUN/creatinine ratioOrdered By: Chey Kumar on 02-21-2025 Urea nitrogen/Creatinine [Mass ratio] 33.9 mg/mg High 10-20 [facility] Basophil percentageOrdered B y: Chey Kumar on 02-21-2025 Basophils/100 WBC (Bld) 1.4 % High 0-1 [facility] Carbon dioxide, total [Moles /volume] in Central venous bloodOrdered By: carmenmonticelloyoli Kumar on 02-21-2025 CO2 [Moles/Vol] 24.2 mmol/L 21.0-32.0 [facility] Chloride assayOrdered By: Walt Kumar on 02-21-2025 Chloride [Moles/Vol] 100 mmol/L 98-108 [facility] Eosinophil percentageOrdered By: garfield Kumar on 02-21-2025 Eosinophils/100 WBC (Bld) 1.8 % 0-5 [facility] Erythrocyte distribution wid th ratioOrdered By: carmenmonticelloyoli Kumar on 02-21-2025 Erythrocyte distribution width (RBC) [Ratio] 14.3 % 11.6-14.6 [facility] Erythrocyte distribution wid th standard deviationOrdered By: Chey Kumar on 02-21-2025 Erythrocyte distribution width (RBC) [Ratio] 47.4 fl High 35.1-43.9 [facility] Glomerular filtration rate ( GFR) estimation/1.73 sq m using serum, plasma, or whole bOrdered By: Chey Kumar on 02-21-2025 GFR/1.73 sq M.predicted among non-blacks MDRD (S/P/Bld) [Vol rate/Area] 102 mL/min/{1.73_m2} >60 [facility] Comment on above: mL/min/1.73m2 CKD-EP I Creatinine Equation (2020) Hematocrit Auto (Bld) [Volum e fraction]Ordered By: Chey Kumar on 02-21-2025 Hematocrit (Bld) [Volume fraction] 31.2 % Low 37-47 [facility] Hemoglobin measurementOrdere d By: Chey Kumar on 02-21-2025 Hemoglobin (Bld) [Mass/Vol] 10.7 g/dL Low 12.0-15.0 [facility] Immature granulocytes/100 WB C Auto (Bld)Ordered By: Chey Kumar on 02-21-2025 Immature granulocytes/100 WBC (Bld) 0.200 % 0.0-0.9 [facility] Comment on above: IG% - Immature Granu locytes (promyelocytes, myelocytes and metamyelocytes) > 1% indicates that a LEFT SHIFT is Present. MCV (mean corpuscular volume ) determinationOrdered By: Chey Kumar on 02-21-2025 MCV (RBC) [Entitic vol] 91.0 fL 81-99 [facility] Mean corpuscular hemoglobin (MCH) determinationOrdered By: garfield Kumar on 02-21-2025 MCH (RBC) [Entitic mass] 31.2 pg 27.0-32.0 [facility] Mean corpuscular hemoglobin concentration (MCHC) determinationOrdered By: Chey Kumar on 02-21-2025 MCHC (RBC) [Mass/Vol] 34.3 g/dL 32-36 [facility] Mean platelet volume determi nationOrdered By: Chey Kumar on 02-21-2025 Platelet mean volume (Bld) [Entitic vol] 11.2 fL 6.2-12.0 [facility] Monocyte percentageOrdered B y: Chey Kumar on 02-21-2025 Monocytes/100 WBC (Bld) 14.8 % High 0-10 [facility] Neutrophil percentageOrdered By: Chey Kumar on 02-21-2025 Neutrophils/100 WBC (Bld) 38.4 % Low 47-70 [facility] Nucleated red blood cell per centageOrdered By: Chey Kumar on 02-21-2025 Nucleated RBC/100 WBC (Bld) [Ratio] 0 % 0-5 [facility] Platelet countOrdered By: Walt carmenbrittany Kumar on 02-21-2025 Platelets (Bld) [#/Vol] 280 10*3/uL 150-450 [facility] Potassium measurement (mass/ volume)Ordered By: Chey Kumar on 02-21-2025 Potassium (Unsp spec) [Mass/Vol] 4.3 mmol/L 3.3-5.1 [facility] RBC Auto (Bld) [#/Vol]Ordere d By: Chey Kumar on 02-21-2025 RBC (Bld) [#/Vol] 3.43 10*6/uL Low 4.2-5.4 [facility] Serum creatinine measurement (mass/volume)Ordered By: Chey Kumar on 02-21-2025 Creatinine [Mass/Vol] 0.31 mg/dL Low 0.70-1.20 [facility] Serum glucose measurement (m ass/volume)Ordered By: Chey Kumar on 02-21-2025 Glucose [Mass/Vol] 88 mg/dL 70-99 [facility] Serum or plasma calcium ori urement (mass/volume)Ordered By: Chey Kumar on 02-21-2025 Calcium [Mass/Vol] 10.0 mg/dL 7.6-11.0 [facility] Serum or plasma urea nitroge n measurement (mass/volume)Ordered By: Chey Kumar on 02-21-2025 Urea nitrogen [Mass/Vol] 11 mg/dL 4-19 [facility] Sodium levelOrdered By: Melinda perezrhona Stacy on 02-21-2025 Sodium [Moles/Vol] 134 mmol/L 133-145 [facility] White blood cell (WBC) count Ordered By: Chey Kumar on 02-21-2025 WBC (Bld) [#/Vol] 4.3 10*3/uL Low 4.4-11.0 [facility] Absolute lymphocyte countOrd ered By: Chey Kumar on 02-14-2025 Lymphocytes Auto (Unsp spec) [#/Vol] 1.92 10*3/uL 0.83-4.51 [facility] Absolute neutrophil countOrd ered By: Waltcarmenbrittany Manigriseldaalvin on 02-14-2025 Neutrophils (Bld) [#/Vol] 2.1 10*3/uL 2.0-7.7 [facility] Anion gap in Serum or Plasma Ordered By: Chey Kumar on 02-14-2025 Anion gap [Moles/Vol] 10 mmol/L 5-15 [facility] Automated lymphocyte count a s percentage of total leukocytesOrdered By: Chey Kuamr on 02-14-2025 Lymphocytes/100 WBC Auto (Unsp spec) 39.8 % 19-41 [facility] BUN/creatinine ratioOrdered By: Chey Singletongriseldaalvin on 02-14-2025 Urea nitrogen/Creatinine [Mass ratio] 44.8 mg/mg High 10-20 [facility] Basophil percentageOrdered B y: Chey Singleotngriseldaalvin on 02-14-2025 Basophils/100 WBC (Bld) 0.8 % 0-1 [facility] Carbon dioxide, total [Moles /volume] in Central venous bloodOrdered By: Chey Kumar on 02-14-2025 CO2 [Moles/Vol] 26.0 mmol/L 21.0-32.0 [facility] Chloride assayOrdered By: Walt Kumar on 02-14-2025 Chloride [Moles/Vol] 102 mmol/L 98-108 [facility] Eosinophil percentageOrdered By: Chey Singletongriseldae on 02-14-2025 Eosinophils/100 WBC (Bld) 2.5 % 0-5 [facility] Erythrocyte distribution wid th ratioOrdered By: Chey Singletongriseldae on 02-14-2025 Erythrocyte distribution width (RBC) [Ratio] 14.1 % 11.6-14.6 [facility] Erythrocyte distribution wid th standard deviationOrdered By: garfield Menge on 02-14-2025 Erythrocyte distribution width (RBC) [Ratio] 48.4 fl High 35.1-43.9 [facility] Glomerular filtration rate ( GFR) estimation/1.73 sq m using serum, plasma, or whole bOrdered By: Chey Kumar on 02-14-2025 GFR/1.73 sq M.predicted among non-blacks MDRD (S/P/Bld) [Vol rate/Area] 110 mL/min/{1.73_m2} >60 [facility] Comment on above: mL/min/1.73m2 CKD-EP I Creatinine Equation (2020) Hematocrit Auto (Bld) [Volum e fraction]Ordered By: Chey Kumar on 02-14-2025 Hematocrit (Bld) [Volume fraction] 31.6 % Low 37-47 [facility] Hemoglobin measurementOrdere d By: Chey Kumar on 02-14-2025 Hemoglobin (Bld) [Mass/Vol] 10.4 g/dL Low 12.0-15.0 [facility] Immature granulocytes/100 WB C Auto (Bld)Ordered By: Chey Kumar on 02-14-2025 Immature granulocytes/100 WBC (Bld) 0.200 % 0.0-0.9 [facility] Comment on above: IG% - Immature Granu locytes (promyelocytes, myelocytes and metamyelocytes) > 1% indicates that a LEFT SHIFT is Present. MCV (mean corpuscular volume ) determinationOrdered By: Chey Kumar on 02-14-2025 MCV (RBC) [Entitic vol] 93.8 fL 81-99 [facility] Mean corpuscular hemoglobin (MCH) determinationOrdered By: Chey Kumar on 02-14-2025 MCH (RBC) [Entitic mass] 30.9 pg 27.0-32.0 [facility] Mean corpuscular hemoglobin concentration (MCHC) determinationOrdered By: Chey Kumar on 02-14-2025 MCHC (RBC) [Mass/Vol] 32.9 g/dL 32-36 [facility] Mean platelet volume determi nationOrdered By: Chey Kumar on 02-14-2025 Platelet mean volume (Bld) [Entitic vol] 10.4 fL 6.2-12.0 [facility] Monocyte percentageOrdered B y: Chey Kumar on 02-14-2025 Monocytes/100 WBC (Bld) 13.3 % High 0-10 [facility] Neutrophil percentageOrdered By: Chey Maniaubrey on 02-14-2025 Neutrophils/100 WBC (Bld) 43.4 % Low 47-70 [facility] Nucleated red blood cell per centageOrdered By: Waltcarmenbrittany Manigriseldaalvin on 02-14-2025 Nucleated RBC/100 WBC (Bld) [Ratio] 0 % 0-5 [facility] Platelet countOrdered By: Walt garfield Manigriseldaalvin on 02-14-2025 Platelets (Bld) [#/Vol] 280 10*3/uL 150-450 [facility] Potassium measurement (mass/ volume)Ordered By: Waltgarfield Singletongriseldaalvin 02-14-2025 Potassium (Unsp spec) [Mass/Vol] 3.8 mmol/L 3.3-5.1 [facility] RBC Auto (Bld) [#/Vol]Ordere d By: Chey Maniaubrey 02-14-2025 RBC (Bld) [#/Vol] 3.37 10*6/uL Low 4.2-5.4 [facility] Serum creatinine measurement (mass/volume)Ordered By: Waltcarmenbrittany Manigriseldaalvin 02-14-2025 Creatinine [Mass/Vol] 0.23 mg/dL Low 0.70-1.20 [facility] Serum glucose measurement (m ass/volume)Ordered By: Chey Kumar 02-14-2025 Glucose [Mass/Vol] 92 mg/dL 70-99 [facility] Serum or plasma calcium ori urement (mass/volume)Ordered By: Chey Singletongriseldaalvin 02-14-2025 Calcium [Mass/Vol] 9.7 mg/dL 7.6-11.0 [facility] Serum or plasma urea nitroge n measurement (mass/volume)Ordered By: Waltgarfield Singletongriseldaalvin on 02-14-2025 Urea nitrogen [Mass/Vol] 10 mg/dL 4-19 [facility] Sodium levelOrdered By: Melinda brittany Stacy on 02-14-2025 Sodium [Moles/Vol] 138 mmol/L 133-145 [facility] White blood cell (WBC) count Ordered By: Chey Kumar on 02-14-2025 WBC (Bld) [#/Vol] 4.8 10*3/uL 4.4-11.0 [facility] CNPNon 02-10-2025 CNPN Telephone (UROSafiaWS) TENA CANNON ([id number]) 1940 F Date Time Provider Department 02/10/25 [...] LPN 02/10/2025 9:37 AM Signed Order Audit [place]: sulfamethoxazole-trime thoprim (BACTRIM DS) 800-160 mg per tablet [[id number]] Original entry by Marilyn Santos PA-C 02/09/2025 [...] AM Signed Faxed order and results to [facility]. LOBO Armas Kimberly, LPN 02/14/2025 9:52 AM Signed Called [facility], patient on [address]. Spoke with LOBO Soto. Reports patient had [...] times a day. - dextran 70-hypromellose (ARTIFICIAL TEARS,[id number],) 0.1-0.3 % ophthalmic solution Use 1 drop in both eyes two times a day. - lidocaine (ASPERFLEX, LIDOCAINE,) 4 % patch Apply 1 application as directed once daily. Apply to lower back, on for twelve hours, off for twelve hours. - oeauyijn-edtj-mrq8-C-m ang-bosw (OSTEO BI-FLEX TRIPLE STRENGTH) 750 mg-644 [...] at bedtim (more content not included)... Normal [facility] Potassium measurement (mass/ volume)Ordered By: Chey Kumar on 02-09-2025 Potassium (Unsp spec) [Mass/Vol] 4.1 mmol/L 3.3-5.1 [facility] CNPNon 02-08-2025 ANTONYN Telephone (UROLWS) TENA CANNON ([id number]) 1940 F Date Time Provider Department 02/08/25 NARCISO SHERMAN During your visit today, we recorded the following information about you: Yandy Cruz LPN 02/08/2025 8:37 AM Signed Called [facility] to obtain fax number. Spoke with LOBO Burk on [facility] [place] (Transition of Care). 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 - lidocaine (ASPERFLEX, LIDOCAINE,) 4 % patch Apply 1 application as directed once daily. Apply to lower back, on for twelve hours, off for twelve hours. - xdtxelte-zfka-lcq4-C-m ang-bosw (OSTEO BI-FLEX TRIPLE STRENGTH) 750 mg-644 [...] TEARS OPHTHALMIC) Use in eyes. - rutin/hesp/bioflav/C/h euuro543 (BIOFLEX ORAL) Take 1 capsule by mouth [...] 02/08/2025 Not (more content not included)... Normal [facility] Absolute lymphocyte countOrd ered By: Chey Kumar on 02-07-2025 Lymphocytes Auto (Unsp spec) [#/Vol] 1.60 10*3/uL 0.83-4.51 [facility] Absolute neutrophil countOrd ered By: Chey Kumar on 02-07-2025 Neutrophils (Bld) [#/Vol] 1.7 10*3/uL Low 2.0-7.7 [facility] Anion gap in Serum or Plasma Ordered By: Melindashayoli Kumar on 02-07-2025 Anion gap [Moles/Vol] 11 mmol/L 5-15 [facility] Automated lymphocyte count a s percentage of total leukocytesOrdered By: Melindamonticelloyoli Singletongriseldaalvin on 02-07-2025 Lymphocytes/100 WBC Auto (Unsp spec) 40.6 % - [facility] BUN/creatinine ratioOrdered By: [facility] Hospital[facility] Singletongriseldaalvin on 02-07-2025 Urea nitrogen/Creatinine [Mass ratio] 46.6 mg/mg High 10-20 [facility] Bacteria Ur Culton Bacteria identified Cx [...] , Intermediate >32 , Resistant >64 Abnormal [facility] Comment on above: Performed By: #### 6 30-4 ####[facility] LABCLIA [id number] [place] [address] [place] Basophil percentageOrdered B y: Chey Kumar on 02-07-2025 Basophils/100 WBC (Bld) 0.8 % 0-1 [facility] CNOVon 02-07-2025 CNOV Office Visit (UROLWS ) TENA CANNON ([id number]) 1940 F Date Time Provider Department 02/07/25 11:00 AM NARCISO SHERMAN UROELISE During your visit today, we recorded the following information about you: Temperature Pulse Respiration Blood pressure 97.1 degrees 102/minute 14/minute 110/72 Narciso Sherman PA-C 02/07/2025 11:35 AM Signed [facility] NEW PATIENT CLINIC NOTE (F) Note was generated by [employer] and edited as appropriate SERVICE DATE: February 07, 2025 NAME: Tenaalvin Cannon GENDER: female CHIEF COMPLAINT: The patient [...] 0.96 mg/dL Final MEDICATIONS: dextran 70-hypromellose (ARTIFICIAL TEARS,[id number],) 0.1-0.3 % ophthalmic solution Use 1 drop in both eyes two times a day. lidocaine (ASPERFLEX, LIDOCAINE,) 4 % patch Apply 1 application as directed once daily. Apply to lower back, on for twelve hours, off for twelve hours. kqvfmfqj-pnyb-gqb9-C-m ang-bosw (OSTEO BI-FLEX TRIPLE STRENGTH) 750 mg-644 [...] MEAL b (more content not included)... Normal [facility] Carbon dioxide, total [Moles /volume] in Central venous bloodOrdered By: Chey Kumar on 02-07-2025 CO2 [Moles/Vol] 26.7 mmol/L 21.0-32.0 [facility] Chloride assayOrdered By: Walt Kumar on 02-07-2025 Chloride [Moles/Vol] 101 mmol/L 98-108 [facility] Eosinophil percentageOrdered By: Chey Kumar on 02-07-2025 Eosinophils/100 WBC (Bld) 3.0 % 0-5 [facility] Erythrocyte distribution wid th ratioOrdered By: garfield Kumar on 02-07-2025 Erythrocyte distribution width (RBC) [Ratio] 14.1 % 11.6-14.6 [facility] Erythrocyte distribution wid th standard deviationOrdered By: Chey Kumar on 02-07-2025 Erythrocyte distribution width (RBC) [Ratio] 47.3 fl High 35.1-43.9 [facility] Glomerular filtration rate ( GFR) estimation/1.73 sq m using serum, plasma, or whole bOrdered By: Chey Kumar on 02-07-2025 GFR/1.73 sq M.predicted among non-blacks MDRD (S/P/Bld) [Vol rate/Area] 111 mL/min/{1.73_m2} >60 [facility] Comment on above: mL/min/1.73m2 CKD-EP I Creatinine Equation (2020) Hematocrit Auto (Bld) [Volum e fraction]Ordered By: Chey Kumar on 02-07-2025 Hematocrit (Bld) [Volume fraction] 30.8 % Low 37-47 [facility] Hemoglobin measurementOrdere d By: Chey Kumar on 02-07-2025 Hemoglobin (Bld) [Mass/Vol] 10.4 g/dL Low 12.0-15.0 [facility] Immature granulocytes/100 WB C Auto (Bld)Ordered By: Chey Kumar 02-07-2025 Immature granulocytes/100 WBC (Bld) 0.300 % 0.0-0.9 [facility] Comment on above: IG% - Immature Granu locytes (promyelocytes, myelocytes and metamyelocytes) > 1% indicates that a LEFT SHIFT is Present. MCV (mean corpuscular volume ) determinationOrdered By: Chey Kumar on 02-07-2025 MCV (RBC) [Entitic vol] 91.9 fL 81-99 [facility] Mean corpuscular hemoglobin (MCH) determinationOrdered By: Chey Kumar on 02-07-2025 MCH (RBC) [Entitic mass] 31.0 pg 27.0-32.0 [facility] Mean corpuscular hemoglobin concentration (MCHC) determinationOrdered By: Chey Kumar on 02-07-2025 MCHC (RBC) [Mass/Vol] 33.8 g/dL 32-36 [facility] Mean platelet volume determi nationOrdered By: Chey Kumar on 02-07-2025 Platelet mean volume (Bld) [Entitic vol] 10.4 fL 6.2-12.0 [facility] Monocyte percentageOrdered B y: Chey Kumar on 02-07-2025 Monocytes/100 WBC (Bld) 13.2 % High 0-10 [facility] Neutrophil percentageOrdered By: Chey Kumar on 02-07-2025 Neutrophils/100 WBC (Bld) 42.1 % Low 47-70 [facility] Nucleated red blood cell per centageOrdered By: Chey Kumar on 02-07-2025 Nucleated RBC/100 WBC (Bld) [Ratio] 0 % 0-5 [facility] Platelet countOrdered By: Walt Kumar on 02-07-2025 Platelets (Bld) [#/Vol] 289 10*3/uL 150-450 [facility] Potassium measurement (mass/ volume)Ordered By: Chey Kumar on 02-07-2025 Potassium (Unsp spec) [Mass/Vol] 3.1 mmol/L Low 3.3-5.1 [facility] [facility] RBC Auto (Bld) [#/Vol]Ordere d By: Filibertoyoli Singletongriseldaalvin on 02-07-2025 RBC (Bld) [#/Vol] 3.35 10*6/uL Low 4.2-5.4 [facility] Serum creatinine measurement (mass/volume)Ordered By: Chey Kumar on 02-07-2025 Creatinine [Mass/Vol] 0.22 mg/dL Low 0.70-1.20 [facility] Serum glucose measurement (m ass/volume)Ordered By: Chey Kumar on 02-07-2025 Glucose [Mass/Vol] 92 mg/dL 70-99 [facility] Serum or plasma calcium ori urement (mass/volume)Ordered By: Chey Kumar on 02-07-2025 Calcium [Mass/Vol] 9.5 mg/dL 7.6-11.0 [facility] Serum or plasma urea nitroge n measurement (mass/volume)Ordered By: Chey Kumar on 02-07-2025 Urea nitrogen [Mass/Vol] 10 mg/dL 4-19 [facility] Sodium levelOrdered By: Melinda perezrhona Stacy on 02-07-2025 Sodium [Moles/Vol] 139 mmol/L 133-145 [facility] UA DIP, URINE (POC)on 2024 BILIRUBIN UA (POCT) Small Abnormal Negative [facility] CLARITY UA (POCT) Cloudy [facility] COLOR UA (POCT) Dark yellow [facility] GLUCOSE UA (POCT) Negative Negative mg/dL [facility] Hemoglobin Ql (U) Small Abnormal Negative [facility] Interpretation and review of laboratory results Abnormal [facility] KETONE UA (POCT) 40 mg/dL Abnormal Negative [facility] LEUKOCYTES UA (POCT) Large Abnormal Negative [facility] NITRITE UA (POCT) Negative Negative [facility] PH UA (POCT) 5.5 4.5 - 8.0 [facility] Protein Ql (U) 30 mg/dL Abnormal Negative [facility] SPECIFIC GRAVITY UA (POCT) 1.025 1.005 - 1.030 [facility] UROBILINOGEN UA (POCT) 0.2 Radha l E.U./dL [facility] Location:[facility], [address], [place], [address] [facility] White blood cell (WBC) count Ordered By: Chey Kumar on 02-07-2025 WBC (Bld) [#/Vol] 3.9 10*3/uL Low 4.4-11.0 [facility] Absolute lymphocyte countOrd ered By: Chey Kumar on 01-31-2025 Lymphocytes Auto (Unsp spec) [#/Vol] 1.76 10*3/uL 0.83-4.51 [facility] Absolute neutrophil countOrd ered By: Chey Kumar on 01-31-2025 Neutrophils (Bld) [#/Vol] 2.1 10*3/uL 2.0-7.7 [facility] Anion gap in Serum or Plasma Ordered By: Chey Kumar on 01-31-2025 Anion gap [Moles/Vol] 9 mmol/L 5-15 [facility] Automated lymphocyte count a s percentage of total leukocytesOrdered By: Chey Kumar on 01-31-2025 Lymphocytes/100 WBC Auto (Unsp spec) 39.6 % 19-41 [facility] BUN/creatinine ratioOrdered By: Chey Kumar on 01-31-2025 Urea nitrogen/Creatinine [Mass ratio] 69.3 mg/mg High 10-20 [facility] Basophil percentageOrdered B y: Chey Kumar on 01-31-2025 Basophils/100 WBC (Bld) 0.4 % 0-1 [facility] Carbon dioxide, total [Moles /volume] in Central venous bloodOrdered By: Chey Kumar on 01-31-2025 CO2 [Moles/Vol] 26.9 mmol/L 21.0-32.0 [facility] Chloride assayOrdered By: Walt Kumar on 01-31-2025 Chloride [Moles/Vol] 101 mmol/L 98-108 [facility] Eosinophil percentageOrdered By: Chey Kumar on 01-31-2025 Eosinophils/100 WBC (Bld) 1.8 % 0-5 [facility] Erythrocyte distribution wid th ratioOrdered By: Chey Kumar on 01-31-2025 Erythrocyte distribution width (RBC) [Ratio] 14.3 % 11.6-14.6 [facility] Erythrocyte distribution wid th standard deviationOrdered By: Chey Kumar on 01-31-2025 Erythrocyte distribution width (RBC) [Ratio] 48.9 fl High 35.1-43.9 [facility] Glomerular filtration rate ( GFR) estimation/1.73 sq m using serum, plasma, or whole bOrdered By: Melindamonticelloyoli Kumar on 01-31-2025 GFR/1.73 sq M.predicted among non-blacks MDRD (S/P/Bld) [Vol rate/Area] 110 mL/min/{1.73_m2} >60 [facility] Comment on above: mL/min/1.73m2 CKD-EP I Creatinine Equation (2020) Hematocrit Auto (Bld) [Volum e fraction]Ordered By: Chey Kumar on 01-31-2025 Hematocrit (Bld) [Volume fraction] 32.6 % Low 37-47 [facility] Hemoglobin measurementOrdere d By: Melindamonticelloyoli Kumar on 01-31-2025 Hemoglobin (Bld) [Mass/Vol] 10.8 g/dL Low 12.0-15.0 [facility] Immature granulocytes/100 WB C Auto (Bld)Ordered By: Chey Kumar 01-31-2025 Immature granulocytes/100 WBC (Bld) 0.200 % 0.0-0.9 [facility] Comment on above: IG% - Immature Granu locytes (promyelocytes, myelocytes and metamyelocytes) > 1% indicates that a LEFT SHIFT is Present. MCV (mean corpuscular volume ) determinationOrdered By: Chey Kumar on 01-31-2025 MCV (RBC) [Entitic vol] 93.9 fL 81-99 [facility] Mean corpuscular hemoglobin (MCH) determinationOrdered By: carmenmonticelloyoli Kumar 01-31-2025 MCH (RBC) [Entitic mass] 31.1 pg 27.0-32.0 [facility] Mean corpuscular hemoglobin concentration (MCHC) determinationOrdered By: Chey Kumar on 01-31-2025 MCHC (RBC) [Mass/Vol] 33.1 g/dL 32-36 [facility] Mean platelet volume determi nationOrdered By: Chey Kumar on 01-31-2025 Platelet mean volume (Bld) [Entitic vol] 11.2 fL 6.2-12.0 [facility] Monocyte percentageOrdered B y: Chey Kumar on 01-31-2025 Monocytes/100 WBC (Bld) 10.6 % High 0-10 [facility] Neutrophil percentageOrdered By: Chey Kumar on 01-31-2025 Neutrophils/100 WBC (Bld) 47.4 % 47-70 [facility] Nucleated red blood cell per centageOrdered By: Chey Kumar on 01-31-2025 Nucleated RBC/100 WBC (Bld) [Ratio] 0 % 0-5 [facility] Platelet countOrdered By: Walt Kumar on 01-31-2025 Platelets (Bld) [#/Vol] 167 10*3/uL 150-450 [facility] Potassium measurement (mass/ volume)Ordered By: Chey Kumar on 01-31-2025 Potassium (Unsp spec) [Mass/Vol] 3.8 mmol/L 3.3-5.1 [facility] RBC Auto (Bld) [#/Vol]Ordere d By: Chey Kumar on 01-31-2025 RBC (Bld) [#/Vol] 3.47 10*6/uL Low 4.2-5.4 [facility] Serum creatinine measurement (mass/volume)Ordered By: Chey Kumar on 01-31-2025 Creatinine [Mass/Vol] 0.23 mg/dL Low 0.70-1.20 [facility] Serum glucose measurement (m ass/volume)Ordered By: Chey Kumar on 01-31-2025 Glucose [Mass/Vol] 98 mg/dL 70-99 [facility] Serum or plasma calcium ori urement (mass/volume)Ordered By: Chey Kumar on 01-31-2025 Calcium [Mass/Vol] 9.6 mg/dL 7.6-11.0 [facility] Serum or plasma urea nitroge n measurement (mass/volume)Ordered By: Chey Kumar on 01-31-2025 Urea nitrogen [Mass/Vol] 16 mg/dL 4-19 [facility] Sodium levelOrdered By: Waltcarmen brittany Manigriseldaalvin on 01-31-2025 Sodium [Moles/Vol] 136 mmol/L 133-145 [facility] White blood cell (WBC) count Ordered By: Chey Kumar on 01-31-2025 WBC (Bld) [#/Vol] 4.5 10*3/uL 4.4-11.0 [facility] Absolute lymphocyte countOrd ered By: Chey Kumar on 01-24-2025 Lymphocytes Auto (Unsp spec) [#/Vol] 1.68 10*3/uL 0.83-4.51 [facility] Absolute neutrophil countOrd ered By: Chey Kumar on 01-24-2025 Neutrophils (Bld) [#/Vol] 3.1 10*3/uL 2.0-7.7 [facility] Anion gap in Serum or Plasma Ordered By: Chey Kumar on 01-24-2025 Anion gap [Moles/Vol] 11 mmol/L 5-15 [facility] Automated lymphocyte count a s percentage of total leukocytesOrdered By: Chey Kumar on 01-24-2025 Lymphocytes/100 WBC Auto (Unsp spec) 30.5 % 19-41 [facility] BUN/creatinine ratioOrdered By: Chey Kumar on 01-24-2025 Urea nitrogen/Creatinine [Mass ratio] 56.5 mg/mg High 10-20 [facility] Basophil percentageOrdered B y: Melindashayoli Kumar on 01-24-2025 Basophils/100 WBC (Bld) 0.7 % 0-1 [facility] Carbon dioxide, total [Moles /volume] in Central venous bloodOrdered By: Chey Kumar on 01-24-2025 CO2 [Moles/Vol] 26.2 mmol/L 21.0-32.0 [facility] Chloride assayOrdered By: Walt Kumar on 01-24-2025 Chloride [Moles/Vol] 100 mmol/L 98-108 [facility] Eosinophil percentageOrdered By: Chey Kumar on 01-24-2025 Eosinophils/100 WBC (Bld) 1.5 % 0-5 [facility] Erythrocyte distribution wid th ratioOrdered By: Chey Kumar on 01-24-2025 Erythrocyte distribution width (RBC) [Ratio] 14.2 % 11.6-14.6 [facility] Erythrocyte distribution wid th standard deviationOrdered By: garfield Kumar on 01-24-2025 Erythrocyte distribution width (RBC) [Ratio] 47.5 fl High 35.1-43.9 [facility] Glomerular filtration rate ( GFR) estimation/1.73 sq m using serum, plasma, or whole bOrdered By: carmenmonticelloyoli Kumar on 01-24-2025 GFR/1.73 sq M.predicted among non-blacks MDRD (S/P/Bld) [Vol rate/Area] 102 mL/min/{1.73_m2} >60 [facility] Comment on above: mL/min/1.73m2 CKD-EP I Creatinine Equation (2020) Hematocrit Auto (Bld) [Volum e fraction]Ordered By: Chey Kumar on 01-24-2025 Hematocrit (Bld) [Volume fraction] 36.1 % Low 37-47 [facility] Hemoglobin measurementOrdere d By: Chey Kumar on 01-24-2025 Hemoglobin (Bld) [Mass/Vol] 12.0 g/dL 12.0-15.0 [facility] Immature granulocytes/100 WB C Auto (Bld)Ordered By: Chey Kumar 01-24-2025 Immature granulocytes/100 WBC (Bld) 0.500 % 0.0-0.9 [facility] Comment on above: IG% - Immature Granu locytes (promyelocytes, myelocytes and metamyelocytes) > 1% indicates that a LEFT SHIFT is Present. MCV (mean corpuscular volume ) determinationOrdered By: Chey Kumar on 01-24-2025 MCV (RBC) [Entitic vol] 92.1 fL 81-99 [facility] Mean corpuscular hemoglobin (MCH) determinationOrdered By: Chey Kumar on 01-24-2025 MCH (RBC) [Entitic mass] 30.6 pg 27.0-32.0 [facility] Mean corpuscular hemoglobin concentration (MCHC) determinationOrdered By: Chey Kumar on 01-24-2025 MCHC (RBC) [Mass/Vol] 33.2 g/dL 32-36 [facility] Mean platelet volume determi nationOrdered By: Chey Kumar on 01-24-2025 Platelet mean volume (Bld) [Entitic vol] 11.0 fL 6.2-12.0 [facility] Monocyte percentageOrdered B y: Chey Kumar on 01-24-2025 Monocytes/100 WBC (Bld) 10.3 % High 0-10 [facility] Neutrophil percentageOrdered By: Chey Kumar on 01-24-2025 Neutrophils/100 WBC (Bld) 56.5 % 47-70 [facility] Nucleated red blood cell per centageOrdered By: Chey Kumar on 01-24-2025 Nucleated RBC/100 WBC (Bld) [Ratio] 0 % 0-5 [facility] Platelet countOrdered By: Walt carmenbrittany Kumar on 01-24-2025 Platelets (Bld) [#/Vol] 177 10*3/uL 150-450 [facility] Potassium measurement (mass/ volume)Ordered By: Chey Kumar on 01-24-2025 Potassium (Unsp spec) [Mass/Vol] 3.5 mmol/L 3.3-5.1 [facility] RBC Auto (Bld) [#/Vol]Ordere d By: Chey Kumar on 01-24-2025 RBC (Bld) [#/Vol] 3.92 10*6/uL Low 4.2-5.4 [facility] Serum creatinine measurement (mass/volume)Ordered By: Chey Kumar on 01-24-2025 Creatinine [Mass/Vol] 0.31 mg/dL Low 0.70-1.20 [facility] Serum glucose measurement (m ass/volume)Ordered By: Chey Kumar on 01-24-2025 Glucose [Mass/Vol] 97 mg/dL 70-99 [facility] Serum or plasma calcium ori urement (mass/volume)Ordered By: Chey Kumar on 01-24-2025 Calcium [Mass/Vol] 9.5 mg/dL 7.6-11.0 [facility] Serum or plasma urea nitroge n measurement (mass/volume)Ordered By: Chey Kumar on 01-24-2025 Urea nitrogen [Mass/Vol] 18 mg/dL 4-19 [facility] Sodium levelOrdered By: Melinda brittany Stacy on 01-24-2025 Sodium [Moles/Vol] 136 mmol/L 133-145 [facility] White blood cell (WBC) count Ordered By: Chey Kumar on 01-24-2025 WBC (Bld) [#/Vol] 5.5 10*3/uL 4.4-11.0 [facility] Absolute lymphocyte countOrd ered By: Chey Kumar on 01-17-2025 Lymphocytes Auto (Unsp spec) [#/Vol] 1.51 10*3/uL 0.83-4.51 [facility] Absolute neutrophil countOrd ered By: Chey Kumar on 01-17-2025 Neutrophils (Bld) [#/Vol] 3.1 10*3/uL 2.0-7.7 [facility] Anion gap in Serum or Plasma Ordered By: Chey Kumar on 01-17-2025 Anion gap [Moles/Vol] 9 mmol/L 5-15 [facility] Automated lymphocyte count a s percentage of total leukocytesOrdered By: Chey Kumar on 01-17-2025 Lymphocytes/100 WBC Auto (Unsp spec) 28.1 % 19-41 [facility] BUN/creatinine ratioOrdered By: Chey Kumar on 01-17-2025 Urea nitrogen/Creatinine [Mass ratio] 72.0 mg/mg High 10-20 [facility] Basophil percentageOrdered B y: Chey Kumar on 01-17-2025 Basophils/100 WBC (Bld) 0.4 % 0-1 [facility] Carbon dioxide, total [Moles /volume] in Central venous bloodOrdered By: Chey Kumar on 01-17-2025 CO2 [Moles/Vol] 27.5 mmol/L 21.0-32.0 [facility] Chloride assayOrdered By: Walt Kumar on 01-17-2025 Chloride [Moles/Vol] 101 mmol/L 98-108 [facility] Eosinophil percentageOrdered By: Chey Kumar on 01-17-2025 Eosinophils/100 WBC (Bld) 1.1 % 0-5 [facility] Erythrocyte distribution wid th ratioOrdered By: Chey Kumar on 01-17-2025 Erythrocyte distribution width (RBC) [Ratio] 13.7 % 11.6-14.6 [facility] Erythrocyte distribution wid th standard deviationOrdered By: carmenmonticelloyoli Kumar on 01-17-2025 Erythrocyte distribution width (RBC) [Ratio] 44.9 fl High 35.1-43.9 [facility] Glomerular filtration rate ( GFR) estimation/1.73 sq m using serum, plasma, or whole bOrdered By: Chey Kumar on 01-17-2025 GFR/1.73 sq M.predicted among non-blacks MDRD (S/P/Bld) [Vol rate/Area] 104 mL/min/{1.73_m2} >60 [facility] Comment on above: mL/min/1.73m2 CKD-EP I Creatinine Equation (2020) Hematocrit Auto (Bld) [Volum e fraction]Ordered By: Chey Kumar on 01-17-2025 Hematocrit (Bld) [Volume fraction] 34.5 % Low 37-47 [facility] Hemoglobin measurementOrdere d By: Chey Kumar on 01-17-2025 Hemoglobin (Bld) [Mass/Vol] 11.8 g/dL Low 12.0-15.0 [facility] Immature granulocytes/100 WB C Auto (Bld)Ordered By: Chey Kumar on 01-17-2025 Immature granulocytes/100 WBC (Bld) 1.300 % High 0.0-0.9 [facility] Comment on above: IG% - Immature Granu locytes (promyelocytes, myelocytes and metamyelocytes) > 1% indicates that a LEFT SHIFT is Present. MCV (mean corpuscular volume ) determinationOrdered By: Chey Kumar on 01-17-2025 MCV (RBC) [Entitic vol] 90.8 fL 81-99 [facility] Mean corpuscular hemoglobin (MCH) determinationOrdered By: Chey Kumar on 01-17-2025 MCH (RBC) [Entitic mass] 31.1 pg 27.0-32.0 [facility] Mean corpuscular hemoglobin concentration (MCHC) determinationOrdered By: Chey Kumar on 01-17-2025 MCHC (RBC) [Mass/Vol] 34.2 g/dL 32-36 [facility] Mean platelet volume determi nationOrdered By: Chey Kumar on 01-17-2025 Platelet mean volume (Bld) [Entitic vol] 10.1 fL 6.2-12.0 [facility] Monocyte percentageOrdered B y: Chey Kumar on 01-17-2025 Monocytes/100 WBC (Bld) 12.3 % High 0-10 [facility] Neutrophil percentageOrdered By: Chey Kumar on 01-17-2025 Neutrophils/100 WBC (Bld) 56.8 % 47-70 [facility] Nucleated red blood cell per centageOrdered By: Chey Kumar on 01-17-2025 Nucleated RBC/100 WBC (Bld) [Ratio] 0 % 0-5 [facility] Platelet countOrdered By: Walt Kumar on 01-17-2025 Platelets (Bld) [#/Vol] 273 10*3/uL 150-450 [facility] Potassium measurement (mass/ volume)Ordered By: Chey Kumar on 01-17-2025 Potassium (Unsp spec) [Mass/Vol] 3.5 mmol/L 3.3-5.1 [facility] RBC Auto (Bld) [#/Vol]Ordere d By: Chey Kumar on 01-17-2025 RBC (Bld) [#/Vol] 3.80 10*6/uL Low 4.2-5.4 [facility] Serum creatinine measurement (mass/volume)Ordered By: Chey Mengalvin on 01-17-2025 Creatinine [Mass/Vol] 0.30 mg/dL Low 0.70-1.20 [facility] Serum glucose measurement (m ass/volume)Ordered By: Waltcarmenshayoli Singletongriseldaalvin on 01-17-2025 Glucose [Mass/Vol] 77 mg/dL 70-99 [facility] Serum or plasma calcium ori urement (mass/volume)Ordered By: Filibertoyoli Singletongriseldaalvin on 01-17-2025 Calcium [Mass/Vol] 9.4 mg/dL 7.6-11.0 [facility] Serum or plasma urea nitroge n measurement (mass/volume)Ordered By: Chey Mengalvin on 01-17-2025 Urea nitrogen [Mass/Vol] 21 mg/dL High 4-19 [facility] Sodium levelOrdered By: Melinda Mengalvin on 01-17-2025 Sodium [Moles/Vol] 137 mmol/L 133-145 [facility] White blood cell (WBC) count Ordered By: Chey Mengalvin on 01-17-2025 WBC (Bld) [#/Vol] 5.4 10*3/uL 4.4-11.0 [facility] Absolute lymphocyte countOrd ered By: Waltgarfield Singletongriseldaalvin on 01-10-2025 Lymphocytes Auto (Unsp spec) [#/Vol] 1.00 10*3/uL 0.83-4.51 [facility] Absolute neutrophil countOrd ered By: Filibertoyoli Singletongriseldaalvin on 01-10-2025 Neutrophils (Bld) [#/Vol] 3.8 10*3/uL 2.0-7.7 [facility] Anion gap in Serum or Plasma Ordered By: Chey Mengalvin on 01-10-2025 Anion gap [Moles/Vol] 11 mmol/L 5-15 [facility] Automated lymphocyte count a s percentage of total leukocytesOrdered By: Filibertoyoli Singletongriseldaalvin on 01-10-2025 Lymphocytes/100 WBC Auto (Unsp spec) 17.7 % Low 19-41 [facility] BUN/creatinine ratioOrdered By: Chey Kumar on 01-10-2025 Urea nitrogen/Creatinine [Mass ratio] 61.3 mg/mg High 10-20 [facility] Basophil percentageOrdered B y: Chey Kumar on 01-10-2025 Basophils/100 WBC (Bld) 0.4 % 0-1 [facility] Bilirubin Test strip Ql (U)O rdered By: Chey Kumar on 01-10-2025 Bilirubin Ql (U) Negative Negative [facility] Carbon dioxide, total [Moles /volume] in Central venous bloodOrdered By: Chey Kumar on 01-10-2025 CO2 [Moles/Vol] 25.8 mmol/L 21.0-32.0 [facility] Chloride assayOrdered By: Walt Kumar on 01-10-2025 Chloride [Moles/Vol] 97 mmol/L Low 98-108 [facility] Eosinophil percentageOrdered By: Chey Kumar on 01-10-2025 Eosinophils/100 WBC (Bld) 1.9 % 0-5 [facility] Erythrocyte distribution wid th ratioOrdered By: Chey Kumar on 01-10-2025 Erythrocyte distribution width (RBC) [Ratio] 13.6 % 11.6-14.6 [facility] Erythrocyte distribution wid th standard deviationOrdered By: Chey Kumar on 01-10-2025 Erythrocyte distribution width (RBC) [Ratio] 44.9 fl High 35.1-43.9 [facility] Glomerular filtration rate ( GFR) estimation/1.73 sq m using serum, plasma, or whole bOrdered By: Chey Kumar on 01-10-2025 GFR/1.73 sq M.predicted among non-blacks MDRD (S/P/Bld) [Vol rate/Area] 106 mL/min/{1.73_m2} >60 [facility] Comment on above: mL/min/1.73m2 CKD-EP I Creatinine Equation (2020) Hematocrit Auto (Bld) [Volum e fraction]Ordered By: Chey Kumar on 01-10-2025 Hematocrit (Bld) [Volume fraction] 31.1 % Low 37-47 [facility] Hemoglobin measurementOrdere d By: Melindashayoli Singletongriseldaalvin on 01-10-2025 Hemoglobin (Bld) [Mass/Vol] 10.7 g/dL Low 12.0-15.0 [facility] Immature granulocytes/100 WB C Auto (Bld)Ordered By: Chey Kumar on 01-10-2025 Immature granulocytes/100 WBC (Bld) 0.700 % 0.0-0.9 [facility] Comment on above: IG% - Immature Granu locytes (promyelocytes, myelocytes and metamyelocytes) > 1% indicates that a LEFT SHIFT is Present. Ketones Test strip Ql (U)Ord ered By: Chey Kumar on 01-10-2025 Ketones Ql (U) 5 mg/dl High Negative [facility] MCV (mean corpuscular volume ) determinationOrdered By: Chey Kumar on 01-10-2025 MCV (RBC) [Entitic vol] 91.2 fL 81-99 [facility] Mean corpuscular hemoglobin (MCH) determinationOrdered By: garfield Kumar on 01-10-2025 MCH (RBC) [Entitic mass] 31.4 pg 27.0-32.0 [facility] Mean corpuscular hemoglobin concentration (MCHC) determinationOrdered By: Chey Kumar on 01-10-2025 MCHC (RBC) [Mass/Vol] 34.4 g/dL 32-36 [facility] Mean platelet volume determi nationOrdered By: Chey Kumar on 01-10-2025 Platelet mean volume (Bld) [Entitic vol] 10.3 fL 6.2-12.0 [facility] Monocyte percentageOrdered B y: Chey Kumar on 01-10-2025 Monocytes/100 WBC (Bld) 12.4 % High 0-10 [facility] Neutrophil percentageOrdered By: Chey Kumar on 01-10-2025 Neutrophils/100 WBC (Bld) 66.9 % 47-70 [facility] Nitrite Test strip Ql (U)Ord ered By: Chey Kumar on 01-10-2025 Nitrite Ql (U) Negative Negative [facility] Nucleated red blood cell per centageOrdered By: Chey Kumar on 01-10-2025 Nucleated RBC/100 WBC (Bld) [Ratio] 0 % 0-5 [facility] Platelet countOrdered By: Walt Kumar on 01-10-2025 Platelets (Bld) [#/Vol] 327 10*3/uL 150-450 [facility] Potassium measurement (mass/ volume)Ordered By: Chey Kumar on 01-10-2025 Potassium (Unsp spec) [Mass/Vol] 3.9 mmol/L 3.3-5.1 [facility] Protein Test strip Ql (U)Ord ered By: Chey Kumar on 01-10-2025 Protein Ql (U) 30 mg/dl High Negative [facility] RBC Auto (Bld) [#/Vol]Ordere d By: Chey Kumar on 01-10-2025 RBC (Bld) [#/Vol] 3.41 10*6/uL Low 4.2-5.4 [facility] Serum creatinine measurement (mass/volume)Ordered By: Chey Kumar on 01-10-2025 Creatinine [Mass/Vol] 0.27 mg/dL Low 0.70-1.20 [facility] Serum glucose measurement (m ass/volume)Ordered By: Chey Kumar on 01-10-2025 Glucose [Mass/Vol] 94 mg/dL 70-99 [facility] Serum or plasma calcium ori urement (mass/volume)Ordered By: Chey Kumar on 01-10-2025 Calcium [Mass/Vol] 9.4 mg/dL 7.6-11.0 [facility] Serum or plasma urea nitroge n measurement (mass/volume)Ordered By: Chey Kumar on 01-10-2025 Urea nitrogen [Mass/Vol] 17 mg/dL 4-19 [facility] Serum or plasma uric acid me asurement (mass/volume)Ordered By: Chey Kumar on 01-10-2025 Urate [Mass/Vol] 2.5 mg/dL Low 2.6-6.0 [facility] Comment on above: The drugs N-Acetylcy steine and Metamizole may falsely depress this assay. Sodium levelOrdered By: Melinda brittany Stacy on 01-10-2025 Sodium [Moles/Vol] 133 mmol/L 133-145 [facility] Urine clarityOrdered By: Gary samrayoli Kumar on 01-10-2025 Clarity (U) Sl. Cloudy Clear [facility] Urine color determinationOrd ered By: Chey Kumar on 01-10-2025 Color (U) Yellow Yellow [facility] Urine glucose detectionOrder ed By: Chey Kumar on 01-10-2025 Glucose Ql (U) Normal mg/dl Normal [facility] Urine leukocyte esterase det ection by dipstickOrdered By: Chey Kumar on 01-10-2025 Leukocyte esterase Test strip Ql (U) 500 /ul High Negative [facility] [facility] Urine pHOrdered By: Kadie Kumar on 01-10-2025 pH (U) 6.0 [pH] 5.0 - 8.0 [facility] Urine specific gravity measu rementOrdered By: Chey Kumar on 01-10-2025 Specific gravity (U) [Rel density] 1.015 1.002-1.030 [facility] Urine urobilinogen measureme ntOrdered By: Chey Kumar on 01-10-2025 Urobilinogen Ql (U) 1 mg/dl High Normal [facility] White blood cell (WBC) count Ordered By: Chey Kumar on 01-10-2025 WBC (Bld) [#/Vol] 5.7 10*3/uL 4.4-11.0 [facility] Absolute lymphocyte countOrd ered By: Chey Kumar on 01-03-2025 Lymphocytes Auto (Unsp spec) [#/Vol] 1.03 10*3/uL 0.83-4.51 [facility] Absolute neutrophil countOrd ered By: Chey Kumar on 01-03-2025 Neutrophils (Bld) [#/Vol] 2.4 10*3/uL 2.0-7.7 [facility] Anion gap in Serum or Plasma Ordered By: Chey Kumar on 01-03-2025 Anion gap [Moles/Vol] 11 mmol/L 5-15 [facility] Automated lymphocyte count a s percentage of total leukocytesOrdered By: Chey Kumar on 01-03-2025 Lymphocytes/100 WBC Auto (Unsp spec) 24.9 % 19-41 [facility] BUN/creatinine ratioOrdered By: Chey Kumar on 01-03-2025 Urea nitrogen/Creatinine [Mass ratio] 73.7 mg/mg High 10-20 [facility] Basophil percentageOrdered B y: Chey Kumar on 01-03-2025 Basophils/100 WBC (Bld) 0.5 % 0-1 [facility] Carbon dioxide, total [Moles /volume] in Central venous bloodOrdered By: Chey Kumar on 01-03-2025 CO2 [Moles/Vol] 25.6 mmol/L 21.0-32.0 [facility] Chloride assayOrdered By: Walt Kumar on 01-03-2025 Chloride [Moles/Vol] 99 mmol/L 98-108 [facility] Eosinophil percentageOrdered By: Chey Kumar on 01-03-2025 Eosinophils/100 WBC (Bld) 2.2 % 0-5 [facility] Erythrocyte distribution wid th ratioOrdered By: Chey Kumar on 01-03-2025 Erythrocyte distribution width (RBC) [Ratio] 13.2 % 11.6-14.6 [facility] Erythrocyte distribution wid th standard deviationOrdered By: Melindamonticelloyoli Kumar on 01-03-2025 Erythrocyte distribution width (RBC) [Ratio] 42.9 fl 35.1-43.9 [facility] Glomerular filtration rate ( GFR) estimation/1.73 sq m using serum, plasma, or whole bOrdered By: Chey Kmuar on 01-03-2025 GFR/1.73 sq M.predicted among non-blacks MDRD (S/P/Bld) [Vol rate/Area] 113 mL/min/{1.73_m2} >60 [facility] Comment on above: mL/min/1.73m2 CKD-EP I Creatinine Equation (2020) Hematocrit Auto (Bld) [Volum e fraction]Ordered By: Chey Kumar on 01-03-2025 Hematocrit (Bld) [Volume fraction] 32.1 % Low 37-47 [facility] Hemoglobin measurementOrdere d By: Chey Kumar on 01-03-2025 Hemoglobin (Bld) [Mass/Vol] 11.2 g/dL Low 12.0-15.0 [facility] Immature granulocytes/100 WB C Auto (Bld)Ordered By: Chey Kumar on 01-03-2025 Immature granulocytes/100 WBC (Bld) 0.200 % 0.0-0.9 [facility] Comment on above: IG% - Immature Granu locytes (promyelocytes, myelocytes and metamyelocytes) > 1% indicates that a LEFT SHIFT is Present. MCV (mean corpuscular volume ) determinationOrdered By: Chey Kumar on 01-03-2025 MCV (RBC) [Entitic vol] 91.2 fL 81-99 [facility] Mean corpuscular hemoglobin (MCH) determinationOrdered By: Chey Kumar on 01-03-2025 MCH (RBC) [Entitic mass] 31.8 pg 27.0-32.0 [facility] Mean corpuscular hemoglobin concentration (MCHC) determinationOrdered By: Chey Kumar on 01-03-2025 MCHC (RBC) [Mass/Vol] 34.9 g/dL 32-36 [facility] Mean platelet volume determi nationOrdered By: garfield Kumar on 01-03-2025 Platelet mean volume (Bld) [Entitic vol] 10.1 fL 6.2-12.0 [facility] Monocyte percentageOrdered B y: Chey Kumar on 01-03-2025 Monocytes/100 WBC (Bld) 13.8 % High 0-10 [facility] Neutrophil percentageOrdered By: Chey Kumar on 01-03-2025 Neutrophils/100 WBC (Bld) 58.4 % 47-70 [facility] Nucleated red blood cell per centageOrdered By: Chey Kumar on 01-03-2025 Nucleated RBC/100 WBC (Bld) [Ratio] 0 % 0-5 [facility] Platelet countOrdered By: Walt Kumar on 01-03-2025 Platelets (Bld) [#/Vol] 223 10*3/uL 150-450 [facility] Potassium measurement (mass/ volume)Ordered By: Chey Kumar on 01-03-2025 Potassium (Unsp spec) [Mass/Vol] 3.5 mmol/L 3.3-5.1 [facility] RBC Auto (Bld) [#/Vol]Ordere d By: Chey Kumar on 01-03-2025 RBC (Bld) [#/Vol] 3.52 10*6/uL Low 4.2-5.4 [facility] Serum creatinine measurement (mass/volume)Ordered By: Chey Kumar on 01-03-2025 Creatinine [Mass/Vol] 0.21 mg/dL Low 0.70-1.20 [facility] Serum glucose measurement (m ass/volume)Ordered By: Chey Kumar on 01-03-2025 Glucose [Mass/Vol] 95 mg/dL 70-99 [facility] Serum or plasma calcium ori urement (mass/volume)Ordered By: Chey Kumar on 01-03-2025 Calcium [Mass/Vol] 9.1 mg/dL 7.6-11.0 [facility] Serum or plasma urea nitroge n measurement (mass/volume)Ordered By: Chey Kumar on 01-03-2025 Urea nitrogen [Mass/Vol] 15 mg/dL 4-19 [facility] Sodium levelOrdered By: Melinda Kumar on 01-03-2025 Sodium [Moles/Vol] 135 mmol/L 133-145 [facility] White blood cell (WBC) count Ordered By: Chey Kumar on 01-03-2025 WBC (Bld) [#/Vol] 4.1 10*3/uL Low 4.4-11.0 [facility] Bilirubin Test strip Ql (U)O rdered By: Chey Kumar on 12-28-2024 Bilirubin Ql (U) Negative Negative [facility] Ketones Test strip Ql (U)Ord ered By: Chey Kumar on 12-28-2024 Ketones Ql (U) 5 mg/dl High Negative [facility] Nitrite Test strip Ql (U)Ord ered By: Chey Kumar on 12-28-2024 Nitrite Ql (U) Negative Negative [facility] Protein Test strip Ql (U)Ord ered By: Chey Kumar on 12-28-2024 Protein Ql (U) 100 mg/dl High Negative [facility] Urine clarityOrdered By: Gary Kumar on 12-28-2024 Clarity (U) Turbid Clear [facility] Urine color determinationOrd ered By: Chey Kumar on 12-28-2024 Color (U) Straw Yellow [facility] Urine cultureOrdered By: Gary Kumar on 12-28-2024 Bacteria identified Cx Nom (U) Pseudomonas aeruginosa Abnormal [facility] Urine glucose detectionOrder ed By: Chey Kumar on 12-28-2024 Glucose Ql (U) Normal mg/dl Normal [facility] Urine leukocyte esterase det ection by dipstickOrdered By: Chey Kumar on 12-28-2024 Leukocyte esterase Test strip Ql (U) 500 /ul High Negative [facility] Urine pHOrdered By: Kadie Kumar on 12-28-2024 pH (U) 6.5 [pH] 5.0 - 8.0 [facility] Urine specific gravity measu rementOrdered By: Chey Kumar on 12-28-2024 Specific gravity (U) [Rel density] 1.015 1.002-1.030 [facility] Urine urobilinogen measureme ntOrdered By: Chey Kumar on 12-28-2024 Urobilinogen Ql (U) Normal mg/dl Normal [facility] Absolute lymphocyte countOrd ered By: Chey Kumar on 12-27-2024 Lymphocytes Auto (Unsp spec) [#/Vol] 1.07 10*3/uL 0.83-4.51 [facility] Absolute neutrophil countOrd ered By: Chey Kumar on 12-27-2024 Neutrophils (Bld) [#/Vol] 4.9 10*3/uL 2.0-7.7 [facility] Anion gap in Serum or Plasma Ordered By: Chey Kumar on 12-27-2024 Anion gap [Moles/Vol] 9 mmol/L 5-15 [facility] Automated lymphocyte count a s percentage of total leukocytesOrdered By: Chey Kumar on 12-27-2024 Lymphocytes/100 WBC Auto (Unsp spec) 15.4 % Low 19-41 [facility] BUN/creatinine ratioOrdered By: Melindamonticelloyloi Kumar on 12-27-2024 Urea nitrogen/Creatinine [Mass ratio] 40.9 mg/mg High 10-20 [facility] Basophil percentageOrdered B y: Chey Kumar on 12-27-2024 Basophils/100 WBC (Bld) 0.3 % 0-1 [facility] Carbon dioxide, total [Moles /volume] in Central venous bloodOrdered By: Chey Kumar on 12-27-2024 CO2 [Moles/Vol] 26.8 mmol/L 21.0-32.0 [facility] Chloride assayOrdered By: Walt Kumar on 12-27-2024 Chloride [Moles/Vol] 98 mmol/L 98-108 [facility] Eosinophil percentageOrdered By: Chey Kumar on 12-27-2024 Eosinophils/100 WBC (Bld) 1.6 % 0-5 [facility] Erythrocyte distribution wid th ratioOrdered By: Chey Kumar on 12-27-2024 Erythrocyte distribution width (RBC) [Ratio] 13.2 % 11.6-14.6 [facility] Erythrocyte distribution wid th standard deviationOrdered By: garfield Kumar on 12-27-2024 Erythrocyte distribution width (RBC) [Ratio] 44.3 fl High 35.1-43.9 [facility] Glomerular filtration rate ( GFR) estimation/1.73 sq m using serum, plasma, or whole bOrdered By: Chey Kumar on 12-27-2024 GFR/1.73 sq M.predicted among non-blacks MDRD (S/P/Bld) [Vol rate/Area] 105 mL/min/{1.73_m2} >60 [facility] Comment on above: mL/min/1.73m2 CKD-EP I Creatinine Equation (2020) Hematocrit Auto (Bld) [Volum e fraction]Ordered By: Chey Kumar on 12-27-2024 Hematocrit (Bld) [Volume fraction] 33.4 % Low 37-47 [facility] Hemoglobin A1c percentageOrd ered By: Chey Kumar on 12-27-2024 HbA1c (Bld) [Mass fraction] 5.1 % <5.7 [facility] Comment on above: Normal < 5.7 % Predi abetic 5.7 - 6.4 % Diabetic >or= 6.5 % Please note range changes. Hemoglobin measurementOrdere d By: Chey Kumar on 12-27-2024 Hemoglobin (Bld) [Mass/Vol] 11.5 g/dL Low 12.0-15.0 [facility] Immature granulocytes/100 WB C Auto (Bld)Ordered By: Chey Kumar on 12-27-2024 Immature granulocytes/100 WBC (Bld) 0.100 % 0.0-0.9 [facility] Comment on above: IG% - Immature Granu locytes (promyelocytes, myelocytes and metamyelocytes) > 1% indicates that a LEFT SHIFT is Present. MCV (mean corpuscular volume ) determinationOrdered By: Chey Kumar on 12-27-2024 MCV (RBC) [Entitic vol] 93.0 fL 81-99 [facility] Mean corpuscular hemoglobin (MCH) determinationOrdered By: Chey Kumar 12-27-2024 MCH (RBC) [Entitic mass] 32.0 pg 27.0-32.0 [facility] Mean corpuscular hemoglobin concentration (MCHC) determinationOrdered By: Chey Kumar 12-27-2024 MCHC (RBC) [Mass/Vol] 34.4 g/dL 32-36 [facility] Mean platelet volume determi nationOrdered By: Waltcarmenbrittany Manigriseldaalvin on 12-27-2024 Platelet mean volume (Bld) [Entitic vol] 10.6 fL 6.2-12.0 [facility] Monocyte percentageOrdered B y: Filibertoyoli Singletongriseldaalvin on 12-27-2024 Monocytes/100 WBC (Bld) 12.1 % High 0-10 [facility] Neutrophil percentageOrdered By: Waltcarmenshayoli Singletongriseldaalvin on 12-27-2024 Neutrophils/100 WBC (Bld) 70.5 % High 47-70 [facility] Nucleated red blood cell per centageOrdered By: Waltcarmenshayoli Singletongriseldaalvin on 12-27-2024 Nucleated RBC/100 WBC (Bld) [Ratio] 0 % 0-5 [facility] Platelet countOrdered By: Walt adeyoli Kumar on 12-27-2024 Platelets (Bld) [#/Vol] 217 10*3/uL 150-450 [facility] Potassium measurement (mass/ volume)Ordered By: Chey Kumar on 12-27-2024 Potassium (Unsp spec) [Mass/Vol] 3.7 mmol/L 3.3-5.1 [facility] RBC Auto (Bld) [#/Vol]Ordere d By: Melindashayoli Singletongriseldaalvin on 12-27-2024 RBC (Bld) [#/Vol] 3.59 10*6/uL Low 4.2-5.4 [facility] Serum creatinine measurement (mass/volume)Ordered By: Chey Kumar on 12-27-2024 Creatinine [Mass/Vol] 0.28 mg/dL Low 0.70-1.20 [facility] Serum glucose measurement (m ass/volume)Ordered By: Chey Kumar on 12-27-2024 Glucose [Mass/Vol] 85 mg/dL 70-99 [facility] Serum or plasma calcium ori urement (mass/volume)Ordered By: Chey Kumar on 12-27-2024 Calcium [Mass/Vol] 8.9 mg/dL 7.6-11.0 [facility] Serum or plasma urea nitroge n measurement (mass/volume)Ordered By: Chey Kumar on 12-27-2024 Urea nitrogen [Mass/Vol] 11 mg/dL 4-19 [facility] Sodium levelOrdered By: Melinda Kumar on 12-27-2024 Sodium [Moles/Vol] 134 mmol/L 133-145 [facility] White blood cell (WBC) count Ordered By: Chey Kumar on 12-27-2024 WBC (Bld) [#/Vol] 7.0 10*3/uL 4.4-11.0 [facility] CNPNon 12-23-2024 CNPN Telephone (NEAGCLM) TENA CANNON ([id number]) 1940 F Date Time Provider Department 12/23/24 [...] TEARS OPHTHALMIC) Use in eyes. - rutin/hesp/bioflav/C/h [id number] (BIOFLEX ORAL) Take 1 capsule by mouth twice daily. - CPAP BipaP @ 14/9 cm of water with humidification, removable water dispenser (for cleaning) . Mask (small/ per patient preference) , filters, tubing, humidifier and lifetime supplies. (G47.33, Z99.89) Obstructive sleep apnea on CPAP - cyclopentola (more content not included)... Normal [facility] Agustina 12-22-2024 [facility] Telephone (FPWADS) TENA CANNON ([id number]) 1940 F Date Time Provider Department 12/22/24 SAHRA GUY During your visit today, we [...] T11 and T12; she is currently at [facility]. Daughter states she is in so much pain and waiting 8 weeks in pain and would like to have surgery if possible. Daughter states her Mom is of sound mind and wants to MOVE forward. Patient has been identified by name and birthdate. Duration of symptoms: N/A Person calling: daughter: Juan [phone] Was an appointment scheduled: No Closing statement: Symptom Call: Thank you for calling [facility], your call is very important. A nurse will call in approximately 2-4 hours during business hours. If this is an emergency, please contact 911. Sahra Hooker MD 12/22/2024 9:55 AM Signed Spine surgery consult initiate. Dr Shawn Dorsey in [facility] is the most aggressive surgeon we're familiar with. Not sure that surgery for compression fracture is an option. Encounter Diagnosis ICD-10-CM 1. Compression fracture of thoracic vertebra with delayed healing, unspecified thoracic vertebral level, subsequent encounter S22.000G CONSULT TO SPINE SURGERY MD Viet Mitchell Crystal, MA 12/22/2024 10:08 AM Signed Spoke with Orionkatiuskaalvin and gave all contact information. Norma Long 12/22/2024 10:14 AM Signed Patient Tena called back and asked that we contact her daughter for any questions as she is not sure what is going on Juan [phone] fyi Allergies As of Date: 12/22/2024 Noted [...] subsequent encounter [S22.000G] Order(s):CONSULT TO SPINE SURGERY [[id number]] Order #: [id number]: 1 FUTURE Prescriptions as of 12/22/2024 - [...] once nicole (more content not included)... Normal [facility] 12-21-2024 PHAN Telephone (AKURFSafia) TENA CANNON ([id number]) 1940 F Date Time Provider Department 12/21/24 LAURY MEHTA During your visit today, we recorded the following information about you: Laury Mehta APRN.CNP 12/21/2024 12:43 PM Signed Patient scheduled with me for follow-up on retention. If patient has catheter she needs rescheduled for earlier appt slot and PVR check with nursing. Nirali Bai 12/21/2024 1:05 PM Signed Called pt and she advised she had cath in - currently at [facility]. - Called them and lvm to reschedule and possibly send a cath removal order if they are able to do so. Nirali Greene 12/22/2024 9:41 AM Signed Called [facility] again- they stated they have her scheduled for a cath removal and bladder scan for the . They do need a order though (not sure how they have it scheduled) - I advised I would fax them a order and if she has any issues they could follow up with a appointment Fax- [phone] Nirali Mehta, Laury Tobin APRN.ENV[employer]MENT[employer]UTIONS ENGINEER 12/22/2024 10:04 AM Signed Maybe with another urology office? I can't place order for her to have catheter removed as she is new patient. Looks like urology was not consulted during admission. Her PCP or extruder operator multiple at [facility] should be able to place order for it. Juan Carlos Baiette 12/22/2024 10:15 AM Signed Called the picker/puller- she said she will confirm that she has a order and speak with the extruder operator multiple. If she needs anything from us she will call (for a appointment)- but she is pretty sure she has it covered Nirali Downsbrianne Allergies As of Date: 12/21/2024 Noted Allergy [...] ophthalmic solu (more content not included)... Normal [facility] Absolute lymphocyte countOrd ered By: Chey Kumar on 12-20-2024 Lymphocytes Auto (Unsp spec) [#/Vol] 0.83 10*3/uL 0.83-4.51 [facility] Absolute neutrophil countOrd ered By: Chey Kumar on 12-20-2024 Neutrophils (Bld) [#/Vol] 6.3 10*3/uL 2.0-7.7 [facility] Anion gap in Serum or Plasma Ordered By: Melindamonticelloyoli Kumar on 12-20-2024 Anion gap [Moles/Vol] 11 mmol/L 5-15 [facility] Automated lymphocyte count a s percentage of total leukocytesOrdered By: Chey Kumar on 12-20-2024 Lymphocytes/100 WBC Auto (Unsp spec) 9.8 % Low 19-41 [facility] BUN/creatinine ratioOrdered By: Chey Kumar on 12-20-2024 Urea nitrogen/Creatinine [Mass ratio] 53.7 mg/mg High 10-20 [facility] Basophil percentageOrdered B y: Chey Kumar on 12-20-2024 Basophils/100 WBC (Bld) 0.2 % 0-1 [facility] Bilirubin, totalOrdered By: Chey Kumar on 12-20-2024 Bilirubin [Mass/Vol] 0.58 mg/dL 0.00-1.30 [facility] CNPNon 12-20-2024 ANTONYN Telephone (JULIANNAILANA M) TENA CANNON ([id number]) 1940 F Date Time Provider Department 12/20/24 SAHRA GUY During your visit today, we recorded the following information about you: Tete Melchor 12/20/2024 9:25 AM Signed Tena is a patient of Sahra Guy MD today ANTONY Oliveira from [facility] called to speak with clinical staff regarding medication questions and why patient is taking certain medications, she stated patient is confused. Please scott her today. Patient has been identified by name and birthdate. Was an appointment scheduled: No Closing statement: Results or non-symptom based questions: Thank you for calling [facility], your call will be returned within the [...] TEARS OPHTHALMIC) Use in eyes. - rutin/hesp/bioflav/C/h [id number] (BIOFLEX ORAL) Take 1 capsule by mouth twice daily. - CPAP BipaP @ 14/9 cm of water with humidification, removable water dispenser (for cleaning) . Mask (small/ per patient preference) , filters, tubing, humidifier and lifetime supplies. (G47.3 (more content not included)... [facility] ([id number]) 1940 F Date Time Provider Department 12/20/24 SAHRA GUY During your visit today, we recorded the following information about you: Norma Long 12/20/2024 11:36 AM Signed [place] Roxanne hogan [facility] is calling Sahra Guy MD today to request the MRI of the spine on 12/15/2024 be faxed to them at fax# [phone] Call back to [place] brianna Oliveira at phone [phone] Patient has been identified by name and birthdate. Person calling: nurse Call patient at: on cell [phone] (home) [phone] (cell) Was an appointment scheduled: Adonay Taylor [...] [B91] 05/12/2005 (more content not included)... Normal [facility] Carbon dioxide, total [Moles /volume] in Central venous bloodOrdered By: Chey Kumar on 12-20-2024 CO2 [Moles/Vol] 26.7 mmol/L 21.0-32.0 [facility] Chloride assayOrdered By: Walt Kumar on 12-20-2024 Chloride [Moles/Vol] 97 mmol/L Low 98-108 [facility] Eosinophil percentageOrdered By: Chey Kumar on 12-20-2024 Eosinophils/100 WBC (Bld) 1.6 % 0-5 [facility] Erythrocyte distribution wid th ratioOrdered By: Chey Kumar on 12-20-2024 Erythrocyte distribution width (RBC) [Ratio] 12.8 % 11.6-14.6 [facility] Erythrocyte distribution wid th standard deviationOrdered By: Chey Kumar on 12-20-2024 Erythrocyte distribution width (RBC) [Ratio] 42.7 fl 35.1-43.9 [facility] Glomerular filtration rate ( GFR) estimation/1.73 sq m using serum, plasma, or whole bOrdered By: Chey Kumar on 12-20-2024 GFR/1.73 sq M.predicted among non-blacks MDRD (S/P/Bld) [Vol rate/Area] 104 mL/min/{1.73_m2} >60 [facility] Comment on above: mL/min/1.73m2 CKD-EP I Creatinine Equation (2020) Hematocrit Auto (Bld) [Volum e fraction]Ordered By: Chey Kumar on 12-20-2024 Hematocrit (Bld) [Volume fraction] 40.5 % 37-47 [facility] Hemoglobin measurementOrdere d By: Chey Kumar on 12-20-2024 Hemoglobin (Bld) [Mass/Vol] 14.0 g/dL 12.0-15.0 [facility] Immature granulocytes/100 WB C Auto (Bld)Ordered By: Chey Kumar on 12-20-2024 Immature granulocytes/100 WBC (Bld) 1.300 % High 0.0-0.9 [facility] Comment on above: IG% - Immature Granu locytes (promyelocytes, myelocytes and metamyelocytes) > 1% indicates that a LEFT SHIFT is Present. Laboratory - Chemistry and C hemistry - challengeOrdered By: Chey Kumar on 12-20-2024 AST [Catalytic activity/Vol] 43 U/L High <32 [facility] MCV (mean corpuscular volume ) determinationOrdered By: Chey Kumar on 12-20-2024 MCV (RBC) [Entitic vol] 91.8 fL 81-99 [facility] Mean corpuscular hemoglobin (MCH) determinationOrdered By: Chey Kumar on 12-20-2024 MCH (RBC) [Entitic mass] 31.7 pg 27.0-32.0 [facility] Mean corpuscular hemoglobin concentration (MCHC) determinationOrdered By: Chey Kumar on 12-20-2024 MCHC (RBC) [Mass/Vol] 34.6 g/dL 32-36 [facility] Mean platelet volume determi nationOrdered By: Chey Kumar on 12-20-2024 Platelet mean volume (Bld) [Entitic vol] 11.2 fL 6.2-12.0 [facility] Monocyte percentageOrdered B y: Chey Kumar on 12-20-2024 Monocytes/100 WBC (Bld) 12.9 % High 0-10 [facility] Neutrophil percentageOrdered By: Chey Kumar on 12-20-2024 Neutrophils/100 WBC (Bld) 74.2 % High 47-70 [facility] Nucleated red blood cell per centageOrdered By: Chey Kumar on 12-20-2024 Nucleated RBC/100 WBC (Bld) [Ratio] 0 % 0-5 [facility] Platelet countOrdered By: Walt Kumar on 12-20-2024 Platelets (Bld) [#/Vol] 230 10*3/uL 150-450 [facility] Potassium measurement (mass/ volume)Ordered By: Chey Kumar on 12-20-2024 Potassium (Unsp spec) [Mass/Vol] 4.0 mmol/L 3.3-5.1 [facility] RBC Auto (Bld) [#/Vol]Ordere d By: Chey Kumar on 12-20-2024 RBC (Bld) [#/Vol] 4.41 10*6/uL 4.2-5.4 [facility] Serum creatinine measurement (mass/volume)Ordered By: Chey Kumar on 12-20-2024 Creatinine [Mass/Vol] 0.30 mg/dL Low 0.70-1.20 [facility] Serum globulin measurementOr dered By: Chey Kumar on 12-20-2024 Globulin (S) [Mass/Vol] 2.8 g/dL 2.2-4.2 [facility] Serum glucose measurement (m ass/volume)Ordered By: Chey Kumar on 12-20-2024 Glucose [Mass/Vol] 108 mg/dL High 70-99 [facility] Serum or plasma alanine grimaldo otransferase (ALT) measurementOrdered By: Chey Kumar on 12-20-2024 ALT [Catalytic activity/Vol] 26 U/L <35 [facility] Serum or plasma albumin ori urement (mass/volume)Ordered By: Chey Kumar on 12-20-2024 Albumin [Mass/Vol] 3.3 g/dL Low 3.4-4.8 [facility] Serum or plasma albumin/glob ulin mass ratioOrdered By: Chey Kumar on 12-20-2024 Albumin/Globulin [Mass ratio] 1.2 {ratio} 0.9-2.4 [facility] Serum or plasma alkaline nikia sphatase measurementOrdered By: Chey Kumar on 12-20-2024 ALP [Catalytic activity/Vol] 98 U/L 35-104 [facility] Serum or plasma calcium ori urement (mass/volume)Ordered By: Chey Kumar on 12-20-2024 Calcium [Mass/Vol] 9.4 mg/dL 7.6-11.0 [facility] Serum or plasma urea nitroge n measurement (mass/volume)Ordered By: Chey Kumar on 12-20-2024 Urea nitrogen [Mass/Vol] 16 mg/dL 4-19 [facility] Sodium levelOrdered By: Melinda Kumar on 12-20-2024 Sodium [Moles/Vol] 135 mmol/L 133-145 [facility] Total proteinOrdered By: Gary Kumar on 12-20-2024 Protein [Mass/Vol] 6.1 g/dL 5.9-8.4 [facility] White blood cell (WBC) count Ordered By: Chey Kumar on 12-20-2024 WBC (Bld) [#/Vol] 8.5 10*3/uL 4.4-11.0 [facility] Basic metabolic 2000 panelon 12-19-2024 Anion gap [Moles/Vol] 8 mmol/L Normal 8-15 [facility] Comment on above: Order Comment: Speci men Type: BLOOD SPECIMENOrdering Facility: [facility] Address: [address] [place] [address] Performed By: #### 2 4321-2, ####[place] LABORATORYCLIA [id number] [place] [address] [place] [facility] Calcium [Mass/Vol] 8.9 mg/dL Normal 8.5-10.2 [facility] Comment on above: Order Comment: Speci men Type: BLOOD SPECIMENOrdering Facility: [facility] Address: [address] [place] [address] Performed By: #### 2 4321-2, ####[facility] LABORATORYCLIA [id number] [place] [address] [place] Chloride [Moles/Vol] 99 mmol/L Normal 98-107 [facility] Comment on above: Order Comment: Speci men Type: BLOOD SPECIMENOrdering Facility: [facility] Address: [address] [place] [address] Performed By: #### 2 4322, ####[facility] LABORATORYCLIA [id number] [place] [address] [place] CO2 [Moles/Vol] 32 mmol/L High 22-30 [facility] Comment on above: Order Comment: Speci men Type: BLOOD SPECIMENOrdering Facility: [facility] Address: [address] [place] [address] Performed By: #### 2 2, ####[facility] LABORATORYCLIA [id number] [address] [place] Creatinine [Mass/Vol] 0.34 mg/dL Low 0.58-0.96 [facility] Comment on above: Order Comment: Speci men Type: BLOOD SPECIMENOrdering Facility: [facility] Address: [address] [place] [address] Performed By: #### 2 2, ####[facility] LABORATORYCLIA [id number] [address] Creatinine and Glomerular filtration rate.predicted panel (S/P/Bld) 100 mL/min/1.73m??? Normal >=60 [facility] Comment on above: Order Comment: Speci men Type: BLOOD SPECIMENOrdering Facility: [facility] Address: [address] [place] [address] Result Comment: Sara mated Glomerular Filtration Rate [...] reflect actual GFR. Performed By: #### 2 2, ####[facility]DRICK LABORATORYCLIA [id number] [address] Glucose [Mass/Vol] 89 mg/dL Normal 74-99 [facility] Comment on above: Order Comment: Speci men Type: BLOOD SPECIMENOrdering Facility: [facility] Address: [address] [place] [address] Result Comment: The [place] Diabetes [employer] (ADA) provides guidance for cutoff [...] Standards of Medical Care in Diabetes 2016, [place] [employer]. Diabetes Care. 2016.39(Suppl 1). Performed By: #### 2 4320-09, ####KENDRICK LABORATORYCLIA [id number] [place] [address] [place] Potassium [Moles/Vol] 4.1 mmol/L Normal 3.7-5.1 [facility] Comment on above: Order Comment: Speckristi bronson Type: BLOOD SPECIMENOrdering Facility: [facility] Address: [address] [place] [address] Performed By: #### 2 4320-09, ####[facility]DRICK LABORATORYCLIA [id number] [place] [address] [place] Sodium [Moles/Vol] 139 mmol/L Normal 136-144 [facility] Comment on above: Order Comment: Helena bronson Type: BLOOD SPECIMENOrdering Facility: [facility] Address: [address] [place] [address] Performed By: #### 2 4320-09, ####[facility]ICK LABORATORYCLIA [id number] [place] [address] [place] Urea nitrogen [Mass/Vol] 18 mg/dL Normal 7-21 [facility] Comment on above: Order Comment: Helena bronson Type: BLOOD SPECIMENOrdering Facility: [facility] Address: [address] [place] [address] Performed By: #### 2 4320-09, ####[facility]DRICK LABORATORYCLIA [id number] [address] CBC panel Auto (Bld)on 12-19 Erythrocyte distribution width (RBC) [Ratio] 12.6 % Normal 11.5-15.0 [facility] Comment on above: Order Comment: Speci men Type: BLOOD SPECIMENOrdering Facility: [facility] Address: [address] [place] [address] Performed By: #### 5 8410-2 ####[facility]DRICK LABORATORYCLIA [id number] [address] Hematocrit (Bld) [Volume fraction] 36.3 % Normal 36.0-46.0 [facility] Comment on above: Order Comment: Speci men Type: BLOOD SPECIMENOrdering Facility: [facility] Address: [address] [place] [address] Performed By: #### 5 8410-2 ####[facility] LABORATORYCLIA [id number] [address] Hemoglobin (Bld) [Mass/Vol] 12.2 g/dL Normal 11.5-15.5 [facility] Comment on above: Order Comment: Speci men Type: BLOOD SPECIMENOrdering Facility: [facility] Address: [address] [place] [address] Performed By: #### 5 8410-2 ####[facility]ICK LABORATORYCLIA [id number] [address] MCH (RBC) [Entitic mass] 31.0 pg Normal 26.0-34.0 [facility] Comment on above: Order Comment: Speci men Type: BLOOD SPECIMENOrdering Facility: [facility] Address: [address] [place] [address] Performed By: #### 5 8410-2 ####[facility]ICK LABORATORYCLIA [id number] [address] MCHC (RBC) [Mass/Vol] 33.6 g/dL Normal 30.5-36.0 [facility] Comment on above: Order Comment: Speci men Type: BLOOD SPECIMENOrdering Facility: [facility] Address: [address] [place] [address] Performed By: #### 5 8410-2 ####[facility] LABORATORYCLIA [id number] [address] [place] MCV (RBC) [Entitic vol] 92.1 fL Normal 80.0-100.0 M [facility] Comment on above: Order Comment: Speci men Type: BLOOD SPECIMENOrdering Facility: [facility] Address: [address] [place] [address] Performed By: #### 5 8410-2 ####[facility] LABORATORYCLIA [id number] [place] [address] [place] Nucleated RBC (Bld) [#/Vol] 10*3/uL Normal <0.01 [facility] Comment on above: Order Comment: Speci men Type: BLOOD SPECIMENOrdering Facility: [facility] Address: [address] [place] [address] Performed By: #### 5 8410-2 ####[facility] LABORATORYCLIA [id number] [address] [place] Platelet mean volume (Bld) [Entitic vol] 10.9 fL Normal 9.0-12.7 [facility] Comment on above: Order Comment: Speci men Type: BLOOD SPECIMENOrdering Facility: [facility] Address: [address] [place] [address] Performed By: #### 5 8410-2 ####[facility]DRICK LABORATORYCLIA [id number] [address] [place] Platelets (Bld) [#/Vol] 185 10*3/uL Normal 150-400 [facility] Comment on above: Order Comment: Speci men Type: BLOOD SPECIMENOrdering Facility: [facility] Address: [address] [place] [address] Performed By: #### 5 8410-2 ####[facility]DRICK LABORATORYCLIA [id number] [address] [place] RBC (Bld) [#/Vol] 3.94 10*6/uL Normal 3.90-5.20 [facility] Comment on above: Order Comment: Speci men Type: BLOOD SPECIMENOrdering Facility: [facility] Address: [address] [place] [address] Performed By: #### 5 8410-2 ####KENDRICK LABORATORYCLIA [id number] [place] [id number] [facility] WBC (Bld) [#/Vol] 4.50 10*3/uL Normal 3.70-11.00 [facility] Comment on above: Order Comment: Speci men Type: BLOOD SPECIMENOrdering Facility: [facility] Address: [address] [place] [address] Performed By: #### 5 8410-2 ####KENDRICK LABORATORYCLIA [id number] [place] [id number] [facility] CNDSon 12-19-2024 CNDS HNO ID: [id number] Author: MORIAH LOPEZ MD Service: Hospital Medicine [...] is causing this. Follow up with a Recycling Crew Supervisor for your constipation. Remove Phoenix catheter after having flomax for 1 week. Remove on 12/24 to see if you can urinate on your own again. Referral to Urology, Spine surgery, Gastroenterology placed. Thursday-Thursday after 9 am, call power digger operator at [phone] [phone] and ask for the appointment line [...] No pending results Discharge Disposition Discharge Disposition: Shelter Facility - Less than 30 Days Follow [...] at 6 pm that he spoke with [facility] neurosurgeon converting operator who said that patient isn't a surgical [...] flomax. Attempt Phoenix removal on 12/24 at [facility]. If can't urinate, insert Phoenix back in. Follow up with Urology. Had cystitis and improved with abx. DC on cefdinir Transitions of Care Critical Issues: SPECIALIST FOLLOW-UP: Urology Spinal surgery and Gastroenterology HAYNES MEDICATION CHANGES: see med list LABS AND PROCEDURES PENDING AT DISCHARGE: No pending results. FOLLOW-UP APPOINTMENTS ALREADY SCHEDULED WITH A [facility] PROVIDER: Future Appointments Date Time Provider Department Center 01/02[facility]2025 10:30 AM [facility] 9:40 AM Harinder Kiran PA-C [facility] ALLERGIES Allergen Reactions Keflex [Cephalexin] Diarrhea, GI Upset extreme diarrhea Vioxx [Rofecoxib] Intolerance Makes capillaryblood vessels break" Novocain [Procaine * Intolerance headaches [place]-3 Fish Oil [O* Intoler (more content not included)... Normal [facility] Magnesium SerPl-mCncon 12-19 Magnesium [Mass/Vol] 2.2 mg/dL Normal 1.7-2.3 [facility] Comment on above: Order Comment: Speci men Type: BLOOD SPECIMENOrdering Facility: [facility] Address: [address] [place] [id number] Performed By: #### 2 4321-2, ####[place] LABORATORYCLIA [id number] [place] [address] [place] Basic metabolic 2000 panelon 12-18-2024 Anion gap [Moles/Vol] 9 mmol/L Normal 8-15 [facility] Comment on above: Order Comment: Spec men Type: BLOOD SPECIMENOrdering Facility: [facility] Address: [address] [place], [place] [address] Performed By: #### 2 4321-2, ####[facility] LABORATORYCLIA [id number] [place] [id number] [place] Calcium [Mass/Vol] 9.3 mg/dL Normal 8.5-10.2 [facility] Comment on above: Order Comment: Speci men Type: BLOOD SPECIMENOrdering Facility: [facility] Address: [address] [place] [address] Performed By: #### 2 432-2, ####KENDRICK LABORATORYCLIA [id number] [place] [address] [place] Chloride [Moles/Vol] 96 mmol/L Low 98-107 [facility] Comment on above: Order Comment: Speci men Type: BLOOD SPECIMENOrdering Facility: [facility] Address: [address] [place] [address] Performed By: #### 2 4321-2, ####KENDR[facility] LABORATORYCLIA [id number] [place] [id number] [place] CO2 [Moles/Vol] 31 mmol/L High 22-30 [facility] Comment on above: Order Comment: Speci men Type: BLOOD SPECIMENOrdering Facility: [facility] Address: [address] [place] [address] Performed By: #### 2 432-2, ####[facility]DRICK LABORATORYCLIA [id number] [place] [address] [place] Creatinine [Mass/Vol] 0.30 mg/dL Low 0.58-0.96 [facility] Comment on above: Order Comment: Speci men Type: BLOOD SPECIMENOrdering Facility: [facility] Address: [address] [place] [address] Performed By: #### 2 4322, ####KENDRICK LABORATORYCLIA [id number] [place] [address] [place] [facility] [place] Creatinine and Glomerular filtration rate.predicted panel (S/P/Bld) 103 mL/min/1.73m??? Normal >=60 [facility] Comment on above: Order Comment: Speci men Type: BLOOD SPECIMENOrdering Facility: [facility] Address: [address] [place] [address] Result Comment: Sara mated Glomerular Filtration Rate [...] reflect actual GFR. Performed By: #### 2 43208-04, ####KENDRICK LABORATORYCLIA [id number] [place] [address] [place] Glucose [Mass/Vol] 99 mg/dL Normal 74-99 [facility] Comment on above: Order Comment: Helena bronson Type: BLOOD SPECIMENOrdering Facility: [facility] Address: [address] [place] [address] Result Comment: The [place] Diabetes [employer] (ADA) provides guidance for cutoff [...] Standards of Medical Care in Diabetes 2016, [place] [employer]. Diabetes Care. 2016.39(Suppl 1). Performed By: #### 2 4320-09, ####KENDRICK LABORATORYCLIA [id number] [place] [address] [place] Potassium [Moles/Vol] 4.1 mmol/L Normal 3.7-5.1 [facility] Comment on above: Order Comment: Helena bronson Type: BLOOD SPECIMENOrdering Facility: [facility] Address: [address] [place] [address] Performed By: #### 2 4320-09, ####[facility]ICK LABORATORYCLIA [id number] [place] [address] [place] Sodium [Moles/Vol] 136 mmol/L Normal 136-144 [facility] Comment on above: Order Comment: Helena bronson Type: BLOOD SPECIMENOrdering Facility: [facility] Address: [address] [place] [address] Performed By: #### 2 4321-2, 49999-8 ####KENDRICK LABORATORYCLIA [id number] [address] STATES [facility] Urea nitrogen [Mass/Vol] 18 mg/dL Normal 7-21 [facility] Comment on above: Order Comment: Speci men Type: BLOOD SPECIMENOrdering Facility: [facility] Address: [address] [place] [address] Performed By: #### 2 4321-2, ####[facility] LABORATORYCLIA [id number] [address] CBC panel Auto (Bld)on 12-18 Erythrocyte distribution width (RBC) [Ratio] 12.5 % Normal 11.5-15.0 [facility] Comment on above: Order Comment: Speci men Type: BLOOD SPECIMENOrdering Facility: [facility] Address: [address] [place] [address] Performed By: #### 5 8410-2 ####KENDRICK LABORATORYCLIA [id number] [address] Hematocrit (Bld) [Volume fraction] 35.1 % Low 36.0-46.0 [facility] Comment on above: Order Comment: Speci men Type: BLOOD SPECIMENOrdering Facility: [facility] Address: [address] [place] [address] Performed By: #### 5 8410-2 ####KENDRICK LABORATORYCLIA [id number] [address] STATES [facility] Hemoglobin (Bld) [Mass/Vol] 12.0 g/dL Normal 11.5-15.5 [facility] Comment on above: Order Comment: Speci men Type: BLOOD SPECIMENOrdering Facility: [facility] Address: [address] [place] [address] Performed By: #### 5 8410-2 ####KENDRICK LABORATORYCLIA [id number] [address] [place] MCH (RBC) [Entitic mass] 31.3 pg Normal 26.0-34.0 [facility] Comment on above: Order Comment: Speci men Type: BLOOD SPECIMENOrdering Facility: [facility] Address: [address] [place] [address] Performed By: #### 5 8410-2 ####KENDRICK LABORATORYCLIA [id number] [address] [place] MCHC (RBC) [Mass/Vol] 34.2 g/dL Normal 30.5-36.0 [facility] Comment on above: Order Comment: Speci men Type: BLOOD SPECIMENOrdering Facility: [facility] Address: [address] [place] [address] Performed By: #### 5 8410-2 ####KENDRICK LABORATORYCLIA [id number] [address] [place] MCV (RBC) [Entitic vol] 91.4 fL Normal 80.0-100.0 M [facility] Comment on above: Order Comment: Speci men Type: BLOOD SPECIMENOrdering Facility: [facility] Address: [address] [place] [address] Performed By: #### 5 8410-2 ####KENDRICK LABORATORYCLIA [id number] [address] [place] Nucleated RBC (Bld) [#/Vol] 10*3/uL Normal <0.01 [facility] Comment on above: Order Comment: Speci men Type: BLOOD SPECIMENOrdering Facility: [facility] Address: [address] [place] [address] Performed By: #### 5 8410-2 ####KENDRICK LABORATORYCLIA [id number] [address] [place] Platelet mean volume (Bld) [Entitic vol] 10.7 fL Normal 9.0-12.7 [facility] Comment on above: Order Comment: Speci men Type: BLOOD SPECIMENOrdering Facility: [facility] Address: [address] [place] [address] Performed By: #### 5 8410-2 ####KENDRICK LABORATORYCLIA [id number] [address] [place] Platelets (Bld) [#/Vol] 212 10*3/uL Normal 150-400 [facility] Comment on above: Order Comment: Speci men Type: BLOOD SPECIMENOrdering Facility: [facility] Address: [facility] [place] [address] Performed By: #### 5 8410-2 ####KENDRICK LABORATORYCLIA [id number] [address] [place] RBC (Bld) [#/Vol] 3.84 10*6/uL Low 3.90-5.20 [facility] Comment on above: Order Comment: Speci men Type: BLOOD SPECIMENOrdering Facility: [facility] Address: [address] [place] [address] Performed By: #### 5 8410-2 ####[facility] LABORATORYCLIA [id number] [address] WBC (Bld) [#/Vol] 6.24 10*3/uL Normal 3.70-11.00 [facility] Comment on above: Order Comment: Speci men Type: BLOOD SPECIMENOrdering Facility: [facility] Address: [address] [place] [address] Performed By: #### 5 8410-2 ####[facility] LABORATORYCLIA [id number] [address] [place] Magnesium SerPl-mCncon 12-18 Magnesium [Mass/Vol] 1.8 mg/dL Normal 1.7-2.3 [facility] Comment on above: Order Comment: Speci men Type: BLOOD SPECIMENOrdering Facility: [facility] Address: [address] [place] [address] Performed By: #### 2 4321-2, 91046-0 ####KENDRICK LABORATORYCLIA [id number] [place] [address] [place] Basic metabolic 2000 panelon 12-17-2024 Anion gap [Moles/Vol] 9 mmol/L Normal 8-15 [facility] Comment on above: Order Comment: Speci men Type: BLOOD SPECIMENOrdering Facility: [facility] Address: [address] [place] [address] Performed By: #### 1 9123-9, 01914-4 ####KENDRICK LABORATORYCLIA [id number] [place] [address] [place] Calcium [Mass/Vol] 9.9 mg/dL Normal 8.5-10.2 [facility] Comment on above: Order Comment: Speci men Type: BLOOD SPECIMENOrdering Facility: [facility] Address: [address] [place] [address] Performed By: #### 1 91239, 30515-6 ####KENDRICK LABORATORYCLIA [id number] [place] [address] [place] Chloride [Moles/Vol] 97 mmol/L Low 98-107 [facility] Comment on above: Order Comment: Speci men Type: BLOOD SPECIMENOrdering Facility: [facility] Address: [address] [place] [address] Performed By: #### 1 91239, 26002-6 ####KENDRICK LABORATORYCLIA [id number] [address] STATES OF [facility] CO2 [Moles/Vol] 32 mmol/L High 22-30 [facility] Comment on above: Order Comment: Speci men Type: BLOOD SPECIMENOrdering Facility: [facility] Address: [address] [place] [address] Performed By: #### 1 91239, 22420-7 ####KENDRICK LABORATORYCLIA [id number] [address] [place] Creatinine [Mass/Vol] 0.27 mg/dL Low 0.58-0.96 [facility] Comment on above: Order Comment: Speci men Type: BLOOD SPECIMENOrdering Facility: [facility] Address: [address] [place] [address] Performed By: #### 1 91239, 79738-2 ####KENDRICK LABORATORYCLIA [id number] [address] Creatinine and Glomerular filtration rate.predicted panel (S/P/Bld) 106 mL/min/1.73m??? Normal >=60 [facility] Comment on above: Order Comment: Speci men Type: BLOOD SPECIMENOrdering Facility: [facility] Address: [address] [place] [address] Result Comment: Sara mated Glomerular Filtration Rate [...] actual GFR. Performed By: #### 1 9123-9, 21836-2 ####[facility] LABORATORYCLIA [id number] [place] [address] [place] Glucose [Mass/Vol] 97 mg/dL Normal 74-99 [facility] Comment on above: Order Comment: Helena bronson Type: BLOOD SPECIMENOrdering Facility: [facility] Address: [address] [place] [address] Result Comment: The [place] Diabetes [employer] (ADA) provides guidance for cutoff [...] Standards of Medical Care in Diabetes 2016, [place] [employer]. Diabetes Care. 2016.39(Suppl 1). Performed By: #### 1 9123-9, 00360-2 ####[facility] LABORATORYCLIA [id number] [place] [address] [place] Potassium [Moles/Vol] 3.5 mmol/L Low 3.7-5.1 [facility] Comment on above: Order Comment: Helena [facility] Type: BLOOD SPECIMENOrdering Facility: [facility] Address: [address] [place], [place] [address] Performed By: #### 1 9123-9, 87997-1 ####KENDRICK LABORATORYCLIA [id number] [place] [address] [place] Sodium [Moles/Vol] 138 mmol/L Normal 136-144 [facility] Comment on above: Order Comment: Speci men Type: BLOOD SPECIMENOrdering Facility: [facility] Address: [address] [place] [address] Performed By: #### 1 9123-9, 92730-9 ####KENDRICK LABORATORYCLIA [id number] [place] [address] [place] Urea nitrogen [Mass/Vol] 23 mg/dL High 7-21 [facility] Comment on above: Order Comment: Speci men Type: BLOOD SPECIMENOrdering Facility: [facility] Address: [address] [place] [address] Performed By: #### 1 9123-9, 90421-0 ####KENDRICK LABORATORYCLIA [id number] [place] [address] [place] CBC panel Auto (Bld)on 12-17 Erythrocyte distribution width (RBC) [Ratio] 12.5 % Normal 11.5-15.0 [facility] Comment on above: Order Comment: Speci men Type: BLOOD SPECIMENOrdering Facility: [facility] Address: [address] [place] [address] Performed By: #### 5 8410-2 ####KENDRICK LABORATORYCLIA [id number] [address] [place] Hematocrit (Bld) [Volume fraction] 35.8 % Low 36.0-46.0 [facility] Comment on above: Order Comment: Speci men Type: BLOOD SPECIMENOrdering Facility: [facility] Address: [address] [place] [address] Performed By: #### 5 8410-2 ####KENDRICK LABORATORYCLIA [id number] [address] [place] Hemoglobin (Bld) [Mass/Vol] 12.8 g/dL Normal 11.5-15.5 [facility] Comment on above: Order Comment: Speci men Type: BLOOD SPECIMENOrdering Facility: [facility] Address: [address] [place] [address] Performed By: #### 5 8410-2 ####KENDRICK LABORATORYCLIA [id number] [address] MCH (RBC) [Entitic mass] 31.9 pg Normal 26.0-34.0 [facility] Comment on above: Order Comment: Speci men Type: BLOOD SPECIMENOrdering Facility: [facility] Address: [address] [place] [address] Performed By: #### 5 8410-2 ####KENDRICK LABORATORYCLIA [id number] [address] MCHC (RBC) [Mass/Vol] 35.8 g/dL Normal 30.5-36.0 [facility] Comment on above: Order Comment: Speci men Type: BLOOD SPECIMENOrdering Facility: [facility] Address: [address] [place] [address] Performed By: #### 5 8410-2 ####KENDRICK LABORATORYCLIA [id number] [address] MCV (RBC) [Entitic vol] 89.3 fL Normal 80.0-100.0 [facility] Comment on above: Order Comment: Speci men Type: BLOOD SPECIMENOrdering Facility: [facility] Address: [address] [place] [address] Performed By: #### 5 8410-2 ####KENDRICK LABORATORYCLIA [id number] [address] Nucleated RBC (Bld) [#/Vol] 10*3/uL Normal <0.01 [facility] Comment on above: Order Comment: Speci men Type: BLOOD SPECIMENOrdering Facility: [facility] Address: [address] [place] [address] Performed By: #### 5 8410-2 ####KENDRICK LABORATORYCLIA [id number] [address] Platelet mean volume (Bld) [Entitic vol] 10.5 fL Normal 9.0-12.7 [facility] Comment on above: Order Comment: Speci men Type: BLOOD SPECIMENOrdering Facility: [facility] Address: [address] [place] [address] Performed By: #### 5 8410-2 ####KENDRICK LABORATORYCLIA [id number] [address] Platelets (Bld) [#/Vol] 226 10*3/uL Normal 150-400 [facility] Comment on above: Order Comment: Speci men Type: BLOOD SPECIMENOrdering Facility: [facility] Address: [address] [place] [address] Performed By: #### 5 8410-2 ####KENDRICK LABORATORYCLIA [id number] [place] [address] [place] RBC (Bld) [#/Vol] 4.01 10*6/uL Normal 3.90-5.20 [facility] Comment on above: Order Comment: Speci men Type: BLOOD SPECIMENOrdering Facility: [facility] Address: [address] [place] [address] Performed By: #### 5 8410-2 ####KENDRICK LABORATORYCLIA [id number] [address] WBC (Bld) [#/Vol] 9.07 10*3/uL Normal 3.70-11.00 [facility] Comment on above: Order Comment: Speci men Type: BLOOD SPECIMENOrdering Facility: [facility] Address: [address] [place] [address] Performed By: #### 5 8410-2 ####KENDRICK LABORATORYCLIA [id number] [address] [place] Magnesium SerPl-mCncon 12-17 Magnesium [Mass/Vol] 1.8 mg/dL Normal 1.7-2.3 [facility] Comment on above: Order Comment: Speci men Type: BLOOD SPECIMENOrdering Facility: [facility] Address: [address] [place] [address] Performed By: #### 1 9123-9, 67742-8 ####KENDRICK LABORATORYCLIA [id number] [place] [address] [place] [facility] [place] Basic metabolic 2000 panelon 12-16-2024 Anion gap [Moles/Vol] 13 mmol/L Normal 8-15 [facility] Comment on above: Order Comment: Speci men Type: BLOOD SPECIMENOrdering Facility: [facility] Address: [address] [place] [address] Performed By: #### 2 4321-2, ####KENDRICK LABORATORYCLIA [id number] [place] [address] [place] Calcium [Mass/Vol] 9.5 mg/dL Normal 8.5-10.2 [facility] Comment on above: Order Comment: Speci men Type: BLOOD SPECIMENOrdering Facility: [facility] Address: [address] [place] [address] Performed By: #### 2 4321-2, ####KENDRICK LABORATORYCLIA [id number] [place] [address] [place] Chloride [Moles/Vol] 98 mmol/L Normal 98-107 [facility] Comment on above: Order Comment: Speci men Type: BLOOD SPECIMENOrdering Facility: [facility] Address: [address] [place] [address] Performed By: #### 2 4321-2, ####KENDRICK LABORATORYCLIA [id number] [place] [address] [place] CO2 [Moles/Vol] 24 mmol/L Normal 22-30 [facility] Comment on above: Order Comment: Speci men Type: BLOOD SPECIMENOrdering Facility: [facility] Address: [address] [place] [address] Performed By: #### 2 4321-2, ####KENDRICK LABORATORYCLIA [id number] [place] [id number] [place] Creatinine [Mass/Vol] 0.24 mg/dL Low 0.58-0.96 [facility] Comment on above: Order Comment: Speci men Type: BLOOD SPECIMENOrdering Facility: [facility] Address: [address] [place] [address] Performed By: #### 2 4321-2, ####KENDRICK LABORATORYCLIA [id number] [place] [address] [place] Creatinine and Glomerular filtration rate.predicted panel (S/P/Bld) 109 mL/min/1.73m??? Normal >=60 [facility] Comment on above: Order Comment: Helena bronson Type: BLOOD SPECIMENOrdering Facility: [facility] Address: [address] [place] [address] Result Comment: Sara mated Glomerular Filtration Rate [...] actual GFR. Performed By: #### 2 4321-2, ####[place] LABORATORYCLIA [id number] [place] [id number] [place] Glucose [Mass/Vol] 117 mg/dL High 74-99 [facility] Comment on above: Order Comment: Helena bronson Type: BLOOD SPECIMENOrdering Facility: [facility] Address: [address] [place] [address] Result Comment: The [place] Diabetes [employer] (ADA) provides guidance for cutoff [...] Standards of Medical Care in Diabetes 2016, [place] [employer]. Diabetes Care. 2016.39(Suppl 1). Performed By: #### 2 4321-2, 99135-4 ####KENDRICK LABORATORYCLIA [id number] [place] [address] [place] Potassium [Moles/Vol] 3.4 mmol/L Low 3.7-5.1 [facility] Comment on above: Order Comment: Speci men Type: BLOOD SPECIMENOrdering Facility: [facility] Address: [facility] [place] [address] Performed By: #### 2 4321-2, ####KENDRICK LABORATORYCLIA [id number] [address] [place] [facility] Sodium [Moles/Vol] 135 mmol/L Low 136-144 [facility] Comment on above: Order Comment: Speci men Type: BLOOD SPECIMENOrdering Facility: [facility] Address: [address] [place] [address] Performed By: #### 2 4321-2, ####KENDRICK LABORATORYCLIA [id number] [address] Urea nitrogen [Mass/Vol] 25 mg/dL High 7-21 [facility] Comment on above: Order Comment: Speci men Type: BLOOD SPECIMENOrdering Facility: [facility] Address: [address] [place] [address] Performed By: #### 2 4321-2, ####KENDRICK LABORATORYCLIA [id number] [address] CBC panel Auto (Bld)on 12-16 Erythrocyte distribution width (RBC) [Ratio] 12.5 % Normal 11.5-15.0 [facility] Comment on above: Order Comment: Speci men Type: BLOOD SPECIMENOrdering Facility: [facility] Address: [address] [place] [address] Performed By: #### 5 8410-2 ####KENDRICK LABORATORYCLIA [id number] [address] Hematocrit (Bld) [Volume fraction] 38.7 % Normal 36.0-46.0 [facility] Comment on above: Order Comment: Speci men Type: BLOOD SPECIMENOrdering Facility: [facility] Address: [address] [place] [address] Performed By: #### 5 8410-2 ####KENDRICK LABORATORYCLIA [id number] [address] [place] Hemoglobin (Bld) [Mass/Vol] 13.4 g/dL Normal 11.5-15.5 [facility] Comment on above: Order Comment: Speci men Type: BLOOD SPECIMENOrdering Facility: [facility] Address: [address] [place] [address] Performed By: #### 5 8410-2 ####KENDRICK LABORATORYCLIA [id number] [address] MCH (RBC) [Entitic mass] 30.7 pg Normal 26.0-34.0 [facility] Comment on above: Order Comment: Speci men Type: BLOOD SPECIMENOrdering Facility: [facility] Address: [address] [place] [address] Performed By: #### 5 8410-2 ####KENDRICK LABORATORYCLIA [id number] [address] MCHC (RBC) [Mass/Vol] 34.6 g/dL Normal 30.5-36.0 [facility] Comment on above: Order Comment: Speci men Type: BLOOD SPECIMENOrdering Facility: [facility] Address: [address] [place] [address] Performed By: #### 5 8410-2 ####KENDRICK LABORATORYCLIA [id number] [address] MCV (RBC) [Entitic vol] 88.8 fL Normal 80.0-100.0 [facility] Comment on above: Order Comment: Speci men Type: BLOOD SPECIMENOrdering Facility: [facility] Address: [address] [place] [address] Performed By: #### 5 8410-2 ####KENDRICK LABORATORYCLIA [id number] [address] Nucleated RBC (Bld) [#/Vol] 10*3/uL Normal <0.01 [facility] Comment on above: Order Comment: Speci men Type: BLOOD SPECIMENOrdering Facility: [facility] Address: [address] [place] [address] Performed By: #### 5 8410-2 ####KENDRICK LABORATORYCLIA [id number] [address] [place] Platelet mean volume (Bld) [Entitic vol] 10.2 fL Normal 9.0-12.7 [facility] Comment on above: Order Comment: Speci men Type: BLOOD SPECIMENOrdering Facility: [facility] Address: [address] [place] [address] Performed By: #### 5 8410-2 ####[place] LABORATORYCLIA [id number] [place] [address] [place] Platelets (Bld) [#/Vol] 262 10*3/uL Normal 150-400 [facility] Comment on above: Order Comment: Speci men Type: BLOOD SPECIMENOrdering Facility: [facility] Address: [address] [place] [address] Performed By: #### 5 8410-2 ####[place] LABORATORYCLIA [id number] [place] [address] [place] RBC (Bld) [#/Vol] 4.36 10*6/uL Normal 3.90-5.20 [facility] Comment on above: Order Comment: Speci men Type: BLOOD SPECIMENOrdering Facility: [facility] Address: [address] [place] [address] Performed By: #### 5 8410-2 ####KENDRICK LABORATORYCLIA [id number] [address] [place] WBC (Bld) [#/Vol] 10.28 10*3/uL Normal 3.70-11.00 [facility] Comment on above: Order Comment: Speci men Type: BLOOD SPECIMENOrdering Facility: [facility] Address: [address] [place] [address] Performed By: #### 5 8410-2 ####[place] LABORATORYCLIA [id number] [address] [place] Magnesium SerPl-mCncon 12-16 Magnesium [Mass/Vol] 1.8 mg/dL Normal 1.7-2.3 [facility] Comment on above: Order Comment: Speci men Type: BLOOD SPECIMENOrdering Facility: [facility] Address: [address], [place] [address] Performed By: #### 2 4321-2, 39004-3 ####[facility]DO [facility] [id number] [place] [address] [facility] THERAPY NTon 12-16-2024 THERAPY NT HNO ID: [id number] Author: YEFRI POND OT/Safia Service: ? Author Type: Occupational Therapist Type: Therapy (PT/OT/Speech/Resp) Filed: 12/16/2024 12:16 Note Text: Summary: OT Evaluation Occupational Therapy Evaluation Summary SERVICE DATE: 12/16/2024 SERVICE TIME: 1114 to 1152 ROOM: [place] [address] OT 6 Clicks Score: 13 DISCHARGE RECOMMENDATIONS [...] Muscle Weakness (generalized) TREATMENT INTERVENTIONS Evaluation, Self Mcfp Management (51774) Timed Code Jesse (more content not included)... Normal [facility] THERAPY NT HNO ID: [id number] Author: AVANI LAURA PT Service: Physical Therapy Author Type: Physical Therapist Type: Therapy (PT/OT/Speech/Resp) Filed: 12/16/2024 11:58 Note Text: Summary: PT evaluation Physical Therapy Evaluation Summary SERVICE DATE: 12/16/2024 SERVICE TIME: 1030 to 1112 ROOM: [id number] PT 6 Clicks Score: 8 DISCHARGE RECOMMENDATIONS [...] locked w/c and stand by assist at RETIREMENT. frequent falls per chart. non ambulatory at [...] to SNF. She was discharged back to [facility] assisted living where PT saw her today [...] With: Facility Care, Other: See Comment Comments: RETIREMENT Assistance Available: 24-Hour Entry To Home: No [...] Evaluation, Therapeutic Activity (more content not included)... 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 Lavender Administered: No PERIPHERAL IV DATA: Not applicable SIGNED BY: Malika [place] technical artist December 15, 2024 1:29 PM [facility] Bacteria Ur Culton 5 Bacteria identified Cx Nom (U) CULTURE, URINE: Mixed microbiota, including predominantly: ORGANISM ID: 1 >=100,000 CFU/ml Aerococcus urinae No susceptibility testing done. [facility] Comment on above: Performed By: #### 6 30-4 #### [facility] CLIA [id number] [address] [place] [address] [place] MRI LUMBAR SPINE WO IVCONon 12-15-2024 MRI LUMBAR SPINE WO IVCON * * *Final Report* * * DATE OF EXAM: Dec 15 2024 1:54PM [facility] 0303 - MRI LUMBAR SPINE WO IVCON [...] and assume there are 5 lumbar-type vertebrae. Certified Ophthalmic Technician: RYAN Transcribe Date/Time: Dec 15 2024 2:11P Dictated by : APRIL MACK MD This examination was interpreted and the report reviewed and electronically signed by: APRIL MACK MD on Dec 15 2024 2:31PM EST [id number] [facility] THERAPY NTon 12-15-2024 THERAPY NT HNO ID: [id number] Author: JOLYNN PATE PT Service: Physical Therapy Author Type: Physical Therapist Type: Therapy (PT/OT/Speech/Resp) Filed: 12/15/2024 10:57 Note Text: Summary: PT missed visit PHYSICAL THERAPY MISSED VISIT SERVICE DATE: 12/15/2024 SERVICE TIME: 1055 ROOM: [place] [address] Patient not seen due to Clinical Appropriateness. Pt awaiting MRI of lumbar spine and delivery of LSO, will reattempt once complete and as schedule allows. SIGNATURE: Jolynn Pate, PT PATIENT NAME: Tena Cannon DATE: December 15, 2024 TIME: 10:56 AM [facility] THERAPY NT HNO ID: [id number] Author: YEFRI POND, OT/L Service: ? Author Type: Occupational Therapist Type: Therapy (PT/OT/Speech/Resp) Filed: 12/15/2024 10:27 Note Text: Summary: OT missed visit OCCUPATIONAL THERAPY MISSED VISIT SERVICE DATE: 12/15/2024 SERVICE TIME: 0744 ROOM: [place] [address] Patient not seen due to Clinical Appropriateness. Pt awaiting MRI of lumbar spine. Will re-attempt as able/appropriate. 10:26 addendum: Pt also awaiting delivery of LSO brace. Will follow for MRI results and re-attempt once brace is obtained for safe mobilization and participation in OOB activities. SIGNATURE: MILANA Bennett PATIENT NAME: Tena Cannon DATE: December 15, 2024 TIME: 7:[address] [facility] Urinalysis complete panel (U )on 12-14-2024 Bacteria LM.HPF (Urine sed) [#/Area] Many Abnormal None Seen [facility] Comment on above: Order Comment: Speci men Type: URINE SPECIMENOrdering Facility: [facility] Address: [address] [place] [address] Performed By: #### 2 4356-8 ####[place] LABORATORYCLIA [id number] [place] [address] [place] Bilirubin Ql (U) 2+ Abnormal Negative [facility] Comment on above: Order Comment: Speci men Type: URINE SPECIMENOrdering Facility: [facility] Address: [address] [place] [address] Result Comment: Sugg est correlation with clinical findings and serum bilirubin if clinically indicated. Performed By: #### 2 4356-8 ####KENDRICK LABORATORYCLIA [id number] [address] [place] Clarity (Unsp spec) Cloudy Abnormal Clear [facility] Comment on above: Order Comment: Speci men Type: URINE SPECIMENOrdering Facility: [facility] Address: [address] [place] [address] Performed By: #### 2 4356-8 ####KENDRICK LABORATORYCLIA [id number] [address] [place] Color (U) Yellow Normal Yellow [facility] Comment on above: Order Comment: Speci men Type: URINE SPECIMENOrdering Facility: [facility] Address: [address] [place] [address] Performed By: #### 2 4356-8 ####KENDRICK LABORATORYCLIA [id number] [address] [place] Glucose Test strip (U) [Mass/Vol] Negative Normal Negative [facility] Comment on above: Order Comment: Speci men Type: URINE SPECIMENOrdering Facility: [facility] Address: [address] [place] [address] Performed By: #### 2 4356-8 ####KENDRICK LABORATORYCLIA [id number] [address] [place] Hemoglobin Ql (U) Trace Abnormal Negative [facility] Comment on above: Order Comment: Speci men Type: URINE SPECIMENOrdering Facility: [facility] Address: [address] [place] [address] Performed By: #### 2 4356-8 ####KENDRICK LABORATORYCLIA [id number] [address] Ketones Ql (U) 3+ Abnormal Negative [facility] Comment on above: Order Comment: Speci men Type: URINE SPECIMENOrdering Facility: [facility] Address: [address] [place] [address] Performed By: #### 2 4356-8 ####KENDRICK LABORATORYCLIA [id number] [address] [place] Leukocyte esterase Test strip Ql (U) 2+ Abnormal Negative [facility] Comment on above: Order Comment: Speci men Type: URINE SPECIMENOrdering Facility: [facility] Address: [address] [place] [address] Performed By: #### 2 4356-8 ####KENDRICK LABORATORYCLIA [id number] [place] [address] [place] Nitrite Ql (U) Negative Normal Negative [facility] Comment on above: Order Comment: Speci men Type: URINE SPECIMENOrdering Facility: [facility] Address: [address] [place] [address] Performed By: #### 2 4356-8 ####KENDRICK LABORATORYCLIA [id number] [place] [address] [place] pH (U) 7.5 [pH] Normal 5.0-8.0 [facility] Comment on above: Order Comment: Speci men Type: URINE SPECIMENOrdering Facility: [facility] Address: [address] [place] [address] Performed By: #### 2 4356-8 ####KENDRICK LABORATORYCLIA [id number] [place] [address] [place] Protein (U) [Mass/Vol] 2+ Abnormal Negative [facility] Comment on above: Order Comment: Speci men Type: URINE SPECIMENOrdering Facility: [facility] Address: [address] [place] [address] Performed By: #### 2 4356-8 ####KENDRICK LABORATORYCLIA [id number] [place] [address] [place] RBC LM.HPF (Urine sed) [#/Area] 0-3 /HPF Normal 0-3 /HPF [facility] Comment on above: Order Comment: Speci men Type: URINE SPECIMENOrdering Facility: [facility] Address: [address] [place] [address] Performed By: #### 2 4356-8 ####KENDRICK LABORATORYCLIA [id number] [place] [address] [place] Specific gravity (U) [Rel density] 1.010 Normal 1.005-1.030 [facility] Comment on above: Order Comment: Speci men Type: URINE SPECIMENOrdering Facility: [facility] Address: [address] [place] [address] Performed By: #### 2 4356-8 ####KENDRICK LABORATORYCLIA [id number] [address] Triple phosphate crystals LM.HPF (Urine sed) [#/Area] Moderate Abnormal None Seen [facility] Comment on above: Order Comment: Speci men Type: URINE SPECIMENOrdering Facility: [facility] Address: [address] [place] [address] Performed By: #### 2 4356-8 ####KENDRICK LABORATORYCLIA [id number] [address] Urobilinogen Ql (U) 1.0 EU/dL Normal 0.2-1.0 EU/dL [facility] Comment on above: Order Comment: Speci men Type: URINE SPECIMENOrdering Facility: [facility] Address: [address] [place] [address] Performed By: #### 2 4356-8 ####KENDRICK LABORATORYCLIA [id number] [address] WBC LM.HPF (Urine sed) [#/Area] 6-10 /HPF Abnormal 0-5 /HPF [facility] Comment on above: Order Comment: Speci men Type: URINE SPECIMENOrdering Facility: [facility] Address: [address] [place] [address] Performed By: #### 2 4356-8 ####KENDRICK LABORATORYCLIA [id number] [address] CBC panel Auto (Bld)on 12-13 Erythrocyte distribution width (RBC) [Ratio] 13.0 % Normal 11.5-15.0 [facility] Comment on above: Order Comment: Speci men Type: BLOOD SPECIMENOrdering Facility: [facility] Address: [address] [place] [address] Performed By: #### 5 8410-2 ####KENDRICK LABORATORYCLIA [id number] [address] Hematocrit (Bld) [Volume fraction] 41.1 % Normal 36.0-46.0 [facility] Comment on above: Order Comment: Speci men Type: BLOOD SPECIMENOrdering Facility: [facility] Address: [address] [place] [address] Performed By: #### 5 8410-2 ####KENDRICK LABORATORYCLIA [id number] [address] [facility] Hemoglobin (Bld) [Mass/Vol] 13.8 g/dL Normal 11.5-15.5 [facility] Comment on above: Order Comment: Speci men Type: BLOOD SPECIMENOrdering Facility: [facility] Address: [address] [place] [address] Performed By: #### 5 8410-2 ####KENDRICK LABORATORYCLIA [id number] [address] MCH (RBC) [Entitic mass] 31.4 pg Normal 26.0-34.0 [facility] Comment on above: Order Comment: Speci men Type: BLOOD SPECIMENOrdering Facility: [facility] Address: [address] [place] [address] Performed By: #### 5 8410-2 ####KENDRICK LABORATORYCLIA [id number] [address] MCHC (RBC) [Mass/Vol] 33.6 g/dL Normal 30.5-36.0 [facility] Comment on above: Order Comment: Speci men Type: BLOOD SPECIMENOrdering Facility: [facility] Address: [address] [place] [address] Performed By: #### 5 8410-2 ####KENDRICK LABORATORYCLIA [id number] [address] MCV (RBC) [Entitic vol] 93.6 fL Normal 80.0-100.0 [facility] Comment on above: Order Comment: Speci men Type: BLOOD SPECIMENOrdering Facility: [facility] Address: [address] [place] [address] Performed By: #### 5 8410-2 ####KENDRICK LABORATORYCLIA [id number] [place] [id number] [place] Nucleated RBC (Bld) [#/Vol] 10*3/uL Normal <0.01 [facility] Comment on above: Order Comment: Speci men Type: BLOOD SPECIMENOrdering Facility: [facility] Address: [address] [place] [address] Performed By: #### 5 8410-2 ####KENDRICK LABORATORYCLIA [id number] [place] [address] [place] Platelet mean volume (Bld) [Entitic vol] 11.1 fL Normal 9.0-12.7 [facility] Comment on above: Order Comment: Speci men Type: BLOOD SPECIMENOrdering Facility: [facility] Address: [address] [place] [address] Performed By: #### 5 8410-2 ####KENDRICK LABORATORYCLIA [id number] [place] [address] [place] Platelets (Bld) [#/Vol] 238 10*3/uL Normal 150-400 [facility] Comment on above: Order Comment: Speci men Type: BLOOD SPECIMENOrdering Facility: [facility] Address: [address] [place] [address] Performed By: #### 5 8410-2 ####KENDRICK LABORATORYCLIA [id number] [place] [address] [place] RBC (Bld) [#/Vol] 4.39 10*6/uL Normal 3.90-5.20 [facility] Comment on above: Order Comment: Speci men Type: BLOOD SPECIMENOrdering Facility: [facility] Address: [address] [place] [address] Performed By: #### 5 8410-2 ####KENDRICK LABORATORYCLIA [id number] [address] [place] WBC (Bld) [#/Vol] 10.47 10*3/uL Normal 3.70-11.00 [facility] Comment on above: Order Comment: Speci men Type: BLOOD SPECIMENOrdering Facility: [facility] Address: [address] [place] [address] Performed By: #### 5 8410-2 ####KENDRICK LABORATORYCLIA [id number] [place] [address] [place] [facility] Comprehensive metabolic 2000 panelon 12-13-2024 Albumin [Mass/Vol] 3.9 g/dL Normal 3.9-4.9 [facility] Comment on above: Order Comment: Speci men Type: BLOOD SPECIMENOrdering Facility: [facility] Address: [address] [place] [address] Performed By: #### 2 4323-8 ####KENDRICK LABORATORYCLIA [id number] [address] [place] ALP [Catalytic activity/Vol] 74 U/L Normal 34-123 [facility] Comment on above: Order Comment: Speci men Type: BLOOD SPECIMENOrdering Facility: [facility] Address: [address] [place] [address] Performed By: #### 2 4323-8 ####KENDRICK LABORATORYCLIA [id number] [address] STATES [facility] ALT [Catalytic activity/Vol] 18 U/L Normal 7-38 [facility] Comment on above: Order Comment: Speci men Type: BLOOD SPECIMENOrdering Facility: [facility] Address: [address] [place] [address] Performed By: #### 2 4323-8 ####KENDRICK LABORATORYCLIA [id number] [place] [address] [place] Anion gap [Moles/Vol] 11 mmol/L Normal 8-15 [facility] Comment on above: Order Comment: Speci men Type: BLOOD SPECIMENOrdering Facility: [facility] Address: [address] [place] [address] Performed By: #### 2 4323-8 ####KENDRICK LABORATORYCLIA [id number] [place] [address] [place] AST [Catalytic activity/Vol] 25 U/L Normal 13-35 [facility] Comment on above: Order Comment: Speci men Type: BLOOD SPECIMENOrdering Facility: [facility] Address: [address] [place] [address] Performed By: #### 2 4323-8 ####KENDRICK LABORATORYCLIA [id number] [place] [address] [place] Bilirubin [Mass/Vol] 0.7 mg/dL Normal 0.2-1.3 [facility] Comment on above: Order Comment: Speci men Type: BLOOD SPECIMENOrdering Facility: [facility] Address: [address] [place] [address] Performed By: #### 2 4323-8 ####KENDRICK LABORATORYCLIA [id number] [place] [address] [place] Calcium [Mass/Vol] 10.6 mg/dL High 8.5-10.2 [facility] Comment on above: Order Comment: Speci men Type: BLOOD SPECIMENOrdering Facility: [facility] Address: [address] [place] [address] Performed By: #### 2 4323-8 ####KENDRICK LABORATORYCLIA [id number] [place] [address] [place] Chloride [Moles/Vol] 99 mmol/L Normal 98-107 [facility] Comment on above: Order Comment: Speci men Type: BLOOD SPECIMENOrdering Facility: [facility] Address: [address] [place] [address] Performed By: #### 2 4323-8 ####KENDRICK LABORATORYCLIA [id number] [place] [address] [place] CO2 [Moles/Vol] 29 mmol/L Normal 22-30 [facility] Comment on above: Order Comment: Speci men Type: BLOOD SPECIMENOrdering Facility: [facility] Address: [address] [place] [address] Performed By: #### 2 4323-8 ####KENDRICK LABORATORYCLIA [id number] [place] [address] [place] Creatinine [Mass/Vol] 0.33 mg/dL Low 0.58-0.96 [facility] Comment on above: Order Comment: Speci men Type: BLOOD SPECIMENOrdering Facility: [facility] Address: [address] [place] [address] Performed By: #### 2 4323-8 ####[place] LABORATORYCLIA [id number] [place] [id number] [place] Creatinine and Glomerular filtration rate.predicted panel (S/P/Bld) 101 mL/min/1.73m??? Normal >=60 [facility] Comment on above: Order Comment: Helena bronson Type: BLOOD SPECIMENOrdering Facility: [facility] Address: [address] [place] [address] Result Comment: Sara mated Glomerular Filtration Rate [...] Performed By: #### 2 4323-8 ####KENDRICK LABORATORYCLIA [id number] [place] [id number] [place] Glucose [Mass/Vol] 101 mg/dL High 74-99 [facility] Comment on above: Order Comment: Helena bronson Type: BLOOD SPECIMENOrdering Facility: [facility] Address: [address] [place] [address] Result Comment: The [place] Diabetes Association (ADA) provides guidance for cutoff [...] Standards of Medical Care in Diabetes 2016, [place] [employer]. Diabetes Care. 2016.39(Suppl 1). Performed By: #### 2 4323-8 ####[place] LABORATORYCLIA [id number] [place] [address] [place] Potassium [Moles/Vol] 3.8 mmol/L Normal 3.7-5.1 [facility] Comment on above: Order Comment: Speci men Type: BLOOD SPECIMENOrdering Facility: [facility] Address: [address] [place] [address] Performed By: #### 2 4323-8 ####KENDRICK LABORATORYCLIA [id number] [place] [address] [place] Protein [Mass/Vol] 7.0 g/dL Normal 6.3-8.0 [facility] Comment on above: Order Comment: Speci men Type: BLOOD SPECIMENOrdering Facility: [facility] Address: [address] [place] [address] Performed By: #### 2 4323-8 ####KENDRICK LABORATORYCLIA [id number] [address] [place] Sodium [Moles/Vol] 139 mmol/L Normal 136-144 [facility] Comment on above: Order Comment: Speci men Type: BLOOD SPECIMENOrdering Facility: [facility] Address: [address] [place] [address] Performed By: #### 2 4323-8 ####KENDRICK LABORATORYCLIA [id number] [place] [address] [place] Urea nitrogen [Mass/Vol] 41 mg/dL High 7-21 [facility] Comment on above: Order Comment: Speci men Type: BLOOD SPECIMENOrdering Facility: [facility] Address: [address] [place] [address] Performed By: #### 2 4323-8 ####KENDRICK LABORATORYCLIA [id number] [place] [address] [place] Basic metabolic 2000 panelon 12-12-2024 Anion gap [Moles/Vol] 15 mmol/L Normal 8-15 [facility] Comment on above: Order Comment: Speci men Type: BLOOD SPECIMENOrdering Facility: [facility] Address: [address] [place] [address] Performed By: #### 2 4321-2 ####KENDRICK LABORATORYCLIA [id number] [place] [id number] [place] Calcium [Mass/Vol] 10.8 mg/dL High 8.5-10.2 [facility] Comment on above: Order Comment: Speci men Type: BLOOD SPECIMENOrdering Facility: [facility] Address: [address] [place] [address] Performed By: #### 2 4321-2 ####KENDRICK LABORATORYCLIA [id number] [place] [address] [place] Chloride [Moles/Vol] 98 mmol/L Normal 98-107 [facility] Comment on above: Order Comment: Speci men Type: BLOOD SPECIMENOrdering Facility: [facility] Address: [address] [place] [address] Performed By: #### 2 4321-2 ####KENDRICK LABORATORYCLIA [id number] [place] [address] [place] CO2 [Moles/Vol] 26 mmol/L Normal 22-30 [facility] Comment on above: Order Comment: Speci men Type: BLOOD SPECIMENOrdering Facility: [facility] Address: [address] [place] [address] Performed By: #### 2 4321-2 ####KENDRICK LABORATORYCLIA [id number] [place] [address] [place] Creatinine [Mass/Vol] 0.30 mg/dL Low 0.58-0.96 [facility] Comment on above: Order Comment: Speci men Type: BLOOD SPECIMENOrdering Facility: [facility] Address: [address] [place] [address] Performed By: #### 2 4321-2 ####KENDRICK LABORATORYCLIA [id number] [address] [place] Creatinine and Glomerular filtration rate.predicted panel (S/P/Bld) 103 mL/min/1.73m??? Normal >=60 [facility] Comment on above: Order Comment: Speci men Type: BLOOD SPECIMENOrdering Facility: [facility] Address: [address] [place] [address] Result Comment: Sara mated Glomerular Filtration Rate [...] Performed By: #### 2 4321-2 ####KENDRICK LABORATORYCLIA [id number] [place] [address] [place] Glucose [Mass/Vol] 126 mg/dL High 74-99 [facility] Comment on above: Order Comment: Helena bronson Type: BLOOD SPECIMENOrdering Facility: [facility] Address: [address] [place] [id number] Result Comment: The [place] Diabetes Association (ADA) provides guidance for cutoff [...] Standards of Medical Care in Diabetes 2016, [place] [employer]. Diabetes Care. 2016.39(Suppl 1). Performed By: #### 2 4321-2 ####KENDRICK LABORATORYCLIA [id number] [place] [address] [place] Potassium [Moles/Vol] 3.4 mmol/L Low 3.7-5.1 [facility] Comment on above: Order Comment: Helena bronson Type: BLOOD SPECIMENOrdering Facility: [facility] Address: [address] [place] [address] Performed By: #### 2 4321-2 ####KENDRICK LABORATORYCLIA [id number] [place] [id number] [place] Sodium [Moles/Vol] 139 mmol/L Normal 136-144 [facility] Comment on above: Order Comment: Helena bronson Type: BLOOD SPECIMENOrdering Facility: [facility] Address: [address] [place] [address] Performed By: #### 2 4321-2 ####KENDRICK LABORATORYCLIA [id number] [address] STATES [facility] Urea nitrogen [Mass/Vol] 37 mg/dL High 02-20 [facility] Comment on above: Order Comment: Speci men Type: BLOOD SPECIMENOrdering Facility: [facility] Address: [address] [place] [address] Performed By: #### 2 4321-2 ####KENDRICK LABORATORYCLIA [id number] [address] [place] CBC W Auto Differential pane l (Bld)on 12-12-2024 Basophils (Bld) [#/Vol] 10*3/uL Normal <0.11 [facility] Comment on above: Order Comment: Speci men Type: BLOOD SPECIMENOrdering Facility: [facility] Address: [address] [place] [address] Performed By: #### 5 7021-8 ####KENDRICK LABORATORYCLIA [id number] [address] [place] Basophils/100 WBC (Bld) 0.1 % Normal [facility] Comment on above: Order Comment: Speci men Type: BLOOD SPECIMENOrdering Facility: [facility] Address: [address] [place] [address] Performed By: #### 5 7021-8 ####KENDRICK LABORATORYCLIA [id number] [address] Differential cell count method Nom (Bld) Auto Normal [facility] Comment on above: Order Comment: Speci men Type: BLOOD SPECIMENOrdering Facility: [facility] Address: [address] [place] [address] Performed By: #### 5 7021-8 ####KENDRICK LABORATORYCLIA [id number] [place] [address] [place] Eosinophils (Bld) [#/Vol] 10*3/uL Normal <0.46 [facility] Comment on above: Order Comment: Speci men Type: BLOOD SPECIMENOrdering Facility: [facility] Address: [address] [place] [address] Performed By: #### 5 7021-8 ####KENDRICK LABORATORYCLIA [id number] [address] Eosinophils/100 WBC (Bld) 0.0 % Normal [facility] Comment on above: Order Comment: Speci men Type: BLOOD SPECIMENOrdering Facility: [facility] Address: [address] [place] [address] Performed By: #### 5 7021-8 ####KENDRICK LABORATORYCLIA [id number] [address] [place] Erythrocyte distribution width (RBC) [Ratio] 12.7 % Normal 11.5-15.0 [facility] Comment on above: Order Comment: Speci men Type: BLOOD SPECIMENOrdering Facility: [facility] Address: [address] [place] [address] Performed By: #### 5 7021-8 ####KENDRICK LABORATORYCLIA [id number] [address] [place] Hematocrit (Bld) [Volume fraction] 40.3 % Normal 36.0-46.0 [facility] Comment on above: Order Comment: Speci men Type: BLOOD SPECIMENOrdering Facility: [facility] Address: [address] [place] [address] Performed By: #### 5 7021-8 ####KENDRICK LABORATORYCLIA [id number] [address] [place] Hemoglobin (Bld) [Mass/Vol] 13.9 g/dL Normal 11.5-15.5 [facility] Comment on above: Order Comment: Speci men Type: BLOOD SPECIMENOrdering Facility: [facility] Address: [address] [place] [address] Performed By: #### 5 7021-8 ####KENDRICK LABORATORYCLIA [id number] [address] Immature granulocytes (Bld) [#/Vol] 0.06 10*3/uL Normal <0.10 [facility] Comment on above: Order Comment: Speci men Type: BLOOD SPECIMENOrdering Facility: [facility] Address: [address] [place] [address] Performed By: #### 5 7021-8 ####KENDRICK LABORATORYCLIA [id number] [address] Immature granulocytes/100 WBC (Bld) 0.5 % Normal [facility] Comment on above: Order Comment: Speci men Type: BLOOD SPECIMENOrdering Facility: [facility] Address: [address] [place] [address] Performed By: #### 5 7021-8 ####KENDRICK LABORATORYCLIA [id number] [place] [address] [place] Lymphocytes (Bld) [#/Vol] 0.71 10*3/uL Low 1.00-4.00 [facility] Comment on above: Order Comment: Speci men Type: BLOOD SPECIMENOrdering Facility: [facility] Address: [address] [place] [address] Performed By: #### 5 7021-8 ####KENDRICK LABORATORYCLIA [id number] [address] Lymphocytes/100 WBC (Bld) 5.7 % Normal [facility] Comment on above: Order Comment: Speci men Type: BLOOD SPECIMENOrdering Facility: [facility] Address: [address] [place] [address] Performed By: #### 5 7021-8 ####KENDRICK LABORATORYCLIA [id number] [address] MCH (RBC) [Entitic mass] 31.7 pg Normal 26.0-34.0 [facility] Comment on above: Order Comment: Speci men Type: BLOOD SPECIMENOrdering Facility: [facility] Address: [address] [place] [address] Performed By: #### 5 7021-8 ####KENDRICK LABORATORYCLIA [id number] [address] MCHC (RBC) [Mass/Vol] 34.5 g/dL Normal 30.5-36.0 [facility] Comment on above: Order Comment: Speci men Type: BLOOD SPECIMENOrdering Facility: [facility] Address: [address] [place] [address] Performed By: #### 5 7021-8 ####KENDRICK LABORATORYCLIA [id number] [place] [address] [place] MCV (RBC) [Entitic vol] 91.8 fL Normal 80.0-100.0 [facility] Comment on above: Order Comment: Speci men Type: BLOOD SPECIMENOrdering Facility: [facility] Address: [address] [place] [address] Performed By: #### 5 7021-8 ####KENDRICK LABORATORYCLIA [id number] [place] [address] [place] Monocytes (Bld) [#/Vol] 1.20 10*3/uL High <0.87 [facility] Comment on above: Order Comment: Speci men Type: BLOOD SPECIMENOrdering Facility: [facility] Address: [address] [place] [address] Performed By: #### 5 7021-8 ####KENDRICK LABORATORYCLIA [id number] [address] [place] Monocytes/100 WBC (Bld) 9.6 % Normal [facility] Comment on above: Order Comment: Speci men Type: BLOOD SPECIMENOrdering Facility: [facility] Address: [address] [place] [address] Performed By: #### 5 7021-8 ####KENDRICK LABORATORYCLIA [id number] [place] [address] [place] Neutrophils (Bld) [#/Vol] 10.52 10*3/uL High 1.45-7.50 [facility] Comment on above: Order Comment: Speci men Type: BLOOD SPECIMENOrdering Facility: [facility] Address: [address] [place] [address] Performed By: #### 5 7021-8 ####KENDRICK LABORATORYCLIA [id number] [place] [address] [place] Neutrophils/100 WBC (Bld) 84.1 % Normal [facility] Comment on above: Order Comment: Speci men Type: BLOOD SPECIMENOrdering Facility: [facility] Address: [address] [place] [address] Performed By: #### 5 7021-8 ####KENDRICK LABORATORYCLIA [id number] [place] [address] [place] Nucleated RBC (Bld) [#/Vol] 10*3/uL Normal <0.01 [facility] Comment on above: Order Comment: Speci men Type: BLOOD SPECIMENOrdering Facility: [facility] Address: [address] [place] [address] Performed By: #### 5 7021-8 ####KENDRICK LABORATORYCLIA [id number] [place] [address] [place] Nucleated RBC/100 WBC (Bld) [Ratio] 0.0 /[address] [facility] Comment on above: Order Comment: Speci men Type: BLOOD SPECIMENOrdering Facility: [facility] Address: [address] [place] [address] Performed By: #### 5 7021-8 ####KENDRICK LABORATORYCLIA [id number] [place] [address] [place] Platelet mean volume (Bld) [Entitic vol] 10.5 fL Normal 9.0-12.7 [facility] Comment on above: Order Comment: Speci men Type: BLOOD SPECIMENOrdering Facility: [facility] Address: [address] [place] [address] Performed By: #### 5 7021-8 ####KENDRICK LABORATORYCLIA [id number] [place] [address] [place] Platelets (Bld) [#/Vol] 239 10*3/uL Normal 150-400 [facility] Comment on above: Order Comment: Speci men Type: BLOOD SPECIMENOrdering Facility: [facility] Address: [address] [place] [address] Performed By: #### 5 7021-8 ####KENDRICK LABORATORYCLIA [id number] [place] [address] [place] RBC (Bld) [#/Vol] 4.39 10*6/uL Normal 3.90-5.20 [facility] Comment on above: Order Comment: Speckristi bronson Type: BLOOD SPECIMENOrdering Facility: [facility] Address: [address] [place] [address] Performed By: #### 5 7021-8 ####[place] LABORATORYCLIA [id number] [place] [id number] [facility] WBC (Bld) [#/Vol] 12.50 10*3/uL High 3.70-11.00 [facility] Comment on above: Order Comment: Speckristi men Type: BLOOD SPECIMENOrdering Facility: [facility] Address: [address] [place] [address] Performed By: #### 5 7021-8 ####[place] LABORATORYCLIA [id number] [place] [id number] [facility] ED NOTEon 12-12-2024 ED NOTE HNO ID: [id number] Author: JESSENIA PARIKH RN Service: ? Author Type: Registered Nurse Type: ED Notes Filed: 12/12/2024 11:39 Note Text: Bed: ED-19 Expected date: Expected time: Means of arrival: Health System/EMS Comments: 84 F Needs SNF placement Fell [address] [facility] ED PROV NOTEon 12-12-2024 ED PROV NOTE HNO ID: [id number] Author: TAAR ENCARNACION MD Service: Emergency Medicine Author Type: [...] to SNF. She was discharged back to [facility] assisted living where PT saw her today [...] for couple days. She went back to [facility] in [place] to her assisted living facility at [facility]. She had physical therapy at today. She [...] vessels break" Novocain [Procaine * Intolerance headaches [place]-3 Fish Oil [O* Intolerance bleeding in eye [...] back pa (more content not included)... Normal [facility] HISTORY PHYSICALon HISTORY PHYSICAL HNO ID: [id number] Author: GEORGINA RICHARDSON MD Service: Hospital Medicine Author Type: Physician Type: H&P Filed: 12/12/2024 22:35 Note Text: DEPARTMENT OF HOSPITAL MEDICINE HISTORY AND PHYSICAL EXAM SERVICE DATE: 12/12/2024 SERVICE TIME: 4:27 PM Primary Care Physician: Sahra Guy MD NIGHT AND WEEKEND COVERAGE: [place] COVERAGE: Days: [phone], please page attending physician. Nights: [phone], please page [facility] Night coverage pager [phone]. 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 Patient is accompanied by her daughter. Per daughter, patient has had numerous falls since August of 2024. Most recent fall was on 12/04/2024. She was admitted to [facility]. At this time, CT L-spine and [...] take care of her. Daughter has called [facility] - transitional care have beds available. Last BM on Thursday12/04/2024. Patient is not eating well because of nausea. She also states that she has a right sided hernia that causes intermittent pain but none right now. She denies chest pain, SOB, dizziness, abdominal pain/distension - other negative ROS found below. The history is provided by the patient and a relative. No cash control specialist was used. PAST MEDICAL HISTORY Diagnosis Date [...] vessels break" Novocain [Procaine * Intolerance headaches [place]-3 Fish Oil [O* Intolerance bleeding in eye Advil [Ibuprofen] Intolerance Makes capillary blood vessels bread" Asa [Salicylates] Intolerance Makes capillary blood vessels break" Revi (more content not included)... Normal [facility] CBC panel Auto (Bld)on 12-10 Erythrocyte distribution width (RBC) [Ratio] 12.4 % Normal 11.5-15.0 [facility] Comment on above: Order Comment: Speci men Type: BLOOD SPECIMENOrdering Facility: [facility] Address: [address] [place] [address] Performed By: #### 5 8410-2 ####[place] LABORATORYCLIA [id number] [place] [address] [place] Hematocrit (Bld) [Volume fraction] 40.0 % Normal 36.0-46.0 [facility] Comment on above: Order Comment: Speci men Type: BLOOD SPECIMENOrdering Facility: [facility] Address: [address] [place] [address] Performed By: #### 5 8410-2 ####KENDRICK LABORATORYCLIA [id number] [address] Hemoglobin (Bld) [Mass/Vol] 13.8 g/dL Normal 11.5-15.5 [facility] Comment on above: Order Comment: Speci men Type: BLOOD SPECIMENOrdering Facility: [facility] Address: [address] [place] [address] Performed By: #### 5 8410-2 ####KENDRICK LABORATORYCLIA [id number] [address] MCH (RBC) [Entitic mass] 31.7 pg Normal 26.0-34.0 [facility] Comment on above: Order Comment: Speci men Type: BLOOD SPECIMENOrdering Facility: [facility] Address: [address] [place] [address] Performed By: #### 5 8410-2 ####KENDRICK LABORATORYCLIA [id number] [address] MCHC (RBC) [Mass/Vol] 34.5 g/dL Normal 30.5-36.0 [facility] Comment on above: Order Comment: Speci men Type: BLOOD SPECIMENOrdering Facility: [facility] Address: [address] [place] [address] Performed By: #### 5 8410-2 ####KENDRICK LABORATORYCLIA [id number] [address] MCV (RBC) [Entitic vol] 91.7 fL Normal 80.0-100.0 M [facility] Comment on above: Order Comment: Speci men Type: BLOOD SPECIMENOrdering Facility: [facility] Address: [address] [place] [address] Performed By: #### 5 8410-2 ####KENDRICK LABORATORYCLIA [id number] [address] Nucleated RBC (Bld) [#/Vol] 10*3/uL Normal <0.01 [facility] Comment on above: Order Comment: Speci men Type: BLOOD SPECIMENOrdering Facility: [facility] Address: [address] [place] [address] Performed By: #### 5 8410-2 ####KENDRICK LABORATORYCLIA [id number] [address] [place] Platelet mean volume (Bld) [Entitic vol] 10.9 fL Normal 9.0-12.7 [facility] Comment on above: Order Comment: Speci men Type: BLOOD SPECIMENOrdering Facility: [facility] Address: [address] [place] [address] Performed By: #### 5 8410-2 ####KENDRICK LABORATORYCLIA [id number] [address] [place] Platelets (Bld) [#/Vol] 205 10*3/uL Normal 150-400 [facility] Comment on above: Order Comment: Speci men Type: BLOOD SPECIMENOrdering Facility: [facility] Address: [address] [place] [address] Performed By: #### 5 8410-2 ####KENDRICK LABORATORYCLIA [id number] [place] [address] [place] RBC (Bld) [#/Vol] 4.36 10*6/uL Normal 3.90-5.20 [facility] Comment on above: Order Comment: Speci men Type: BLOOD SPECIMENOrdering Facility: [facility] Address: [address] [place] [address] Performed By: #### 5 8410-2 ####KENDRICK LABORATORYCLIA [id number] [place] [address] [place] WBC (Bld) [#/Vol] 7.99 10*3/uL Normal 3.70-11.00 [facility] Comment on above: Order Comment: Speci men Type: BLOOD SPECIMENOrdering Facility: [facility] Address: [address] [place] [address] Performed By: #### 5 8410-2 ####KENDRICK LABORATORYCLIA [id number] [place] [address] [place] CNCOon 12-10-[address] [facility] CNDSon 12-10-2024 CNDS HNO ID: [id number] Author: DIANE WILSON MD Service: Hospital Medicine [...] DURING HOSPITALIZATION: Neurology: Treatment Team: Primary Service: , [facility] REASON FOR HOSPITALIZATION: weakness, back pain FINAL DIAGNOSIS: sciatica Active Hospital Problems Diagnosis POA Frequent falls Yes Hypertension Unknown Fall at shelter Yes BMI 37.0-37.9, adult Yes Dysphagia Yes [...] vessels break" Novocain [Procaine * Intolerance headaches [place]-3 Fish Oil [O* Intolerance bleeding in eye [...] TAKE 1 (more content not included)... Normal [facility] Comprehensive metabolic 2000 panelon 12-10-2024 Albumin [Mass/Vol] 3.7 g/dL Low 3.9-4.9 [facility] Comment on above: Order Comment: Speci men Type: BLOOD SPECIMENOrdering Facility: [facility] Address: [address] [place] [address] Performed By: #### 2 4323-8 ####KENDRICK LABORATORYCLIA [id number] [address] STATES [facility] ALP [Catalytic activity/Vol] 69 U/L Normal 34-123 [facility] Comment on above: Order Comment: Speci men Type: BLOOD SPECIMENOrdering Facility: [facility] Address: [address] [place] [address] Performed By: #### 2 4323-8 ####[facility] LABORATORYCLIA [id number] [address] STATES [facility] ALT [Catalytic activity/Vol] 12 U/L Normal 7-38 [facility] Comment on above: Order Comment: Speci men Type: BLOOD SPECIMENOrdering Facility: [facility] Address: [address] [place] [address] Performed By: #### 2 4323-8 ####KENDRICK LABORATORYCLIA [id number] [place] [address] [place] Anion gap [Moles/Vol] 10 mmol/L Normal 8-15 [facility] Comment on above: Order Comment: Speci men Type: BLOOD SPECIMENOrdering Facility: [facility] Address: [address] [place] [address] Performed By: #### 2 4323-8 ####KENDRICK LABORATORYCLIA [id number] [place] [address] [place] AST [Catalytic activity/Vol] 17 U/L Normal 13-35 [facility] Comment on above: Order Comment: Speci men Type: BLOOD SPECIMENOrdering Facility: [facility] Address: [address] [place] [address] Performed By: #### 2 4323-8 ####KENDRICK LABORATORYCLIA [id number] [place] [address] [place] Bilirubin [Mass/Vol] 0.5 mg/dL Normal 0.2-1.3 [facility] Comment on above: Order Comment: Speci men Type: BLOOD SPECIMENOrdering Facility: [facility] Address: [address] [place] [address] Performed By: #### 2 4323-8 ####KENDRICK LABORATORYCLIA [id number] [place] [address] [place] Calcium [Mass/Vol] 9.7 mg/dL Normal 8.5-10.2 [facility] Comment on above: Order Comment: Speci men Type: BLOOD SPECIMENOrdering Facility: [facility] Address: [address] [place] [address] Performed By: #### 2 4323-8 ####KENDRICK LABORATORYCLIA [id number] [place] [address] [place] Chloride [Moles/Vol] 99 mmol/L Normal 98-107 [facility] Comment on above: Order Comment: Speci men Type: BLOOD SPECIMENOrdering Facility: [facility] Address: [address] [place] [address] Performed By: #### 2 4323-8 ####KENDRICK LABORATORYCLIA [id number] [place] [address] [place] CO2 [Moles/Vol] 28 mmol/L Normal 22-30 [facility] Comment on above: Order Comment: Speci men Type: BLOOD SPECIMENOrdering Facility: [facility] Address: [address] [place] [address] Performed By: #### 2 4323-8 ####KENDRICK LABORATORYCLIA [id number] [place] [address] [place] Creatinine [Mass/Vol] 0.34 mg/dL Low 0.58-0.96 [facility] Comment on above: Order Comment: Speci men Type: BLOOD SPECIMENOrdering Facility: [facility] Address: [address] [place] [address] Performed By: #### 2 4323-8 ####KENDRICK LABORATORYCLIA [id number] [place] [id number] [place] Creatinine and Glomerular filtration rate.predicted panel (S/P/Bld) 100 mL/min/1.73m??? Normal >=60 [facility] Comment on above: Order Comment: Helena bronson Type: BLOOD SPECIMENOrdering Facility: [facility] Address: [address] [place] [address] Result Comment: Sara mated Glomerular Filtration Rate [...] Performed By: #### 2 4323-8 ####KENDRICK LABORATORYCLIA [id number] [place] [address] [place] Glucose [Mass/Vol] 95 mg/dL Normal 74-99 [facility] Comment on above: Order Comment: Helena bronson Type: BLOOD SPECIMENOrdering Facility: [facility] Address: [address] [place] [address] Result Comment: The [place] Diabetes Association (ADA) provides guidance for cutoff [...] Standards of Medical Care in Diabetes 2016, [place] [employer]. Diabetes Care. 2016.39(Suppl 1). Performed By: #### 2 4323-8 ####KENDRICK LABORATORYCLIA [id number] [place] [address] [place] Potassium [Moles/Vol] 3.6 mmol/L Low 3.7-5.1 [facility] Comment on above: Order Comment: Speci men Type: BLOOD SPECIMENOrdering Facility: [facility] Address: [address] [place] [address] Performed By: #### 2 4323-8 ####KENDRICK LABORATORYCLIA [id number] [place] [address] [place] Protein [Mass/Vol] 6.9 g/dL Normal 6.3-8.0 [facility] Comment on above: Order Comment: Speci men Type: BLOOD SPECIMENOrdering Facility: [facility] Address: [address] [place] [address] Performed By: #### 2 4323-8 ####KENDRICK LABORATORYCLIA [id number] [address] STATES OF [facility] Sodium [Moles/Vol] 137 mmol/L Normal 136-144 [facility] Comment on above: Order Comment: Speci men Type: BLOOD SPECIMENOrdering Facility: [facility] Address: [address] [place] [address] Performed By: #### 2 4323-8 ####KENDRICK LABORATORYCLIA [id number] [address] [place] Urea nitrogen [Mass/Vol] 12 mg/dL Normal 7-21 [facility] Comment on above: Order Comment: Speci men Type: BLOOD SPECIMENOrdering Facility: [facility] Address: [address] [place] [address] Performed By: #### 2 4323-8 ####KENDRICK LABORATORYCLIA [id number] [place] [id number] [place] [facility] THERAPY NTon 12-10-2024 THERAPY NT HNO ID: [id number] Author: MARCELINO JARQUIN, PT Service: Physical Therapy Author Type: Physical Therapist Type: Therapy (PT/OT/Speech/Resp) Filed: 12/10/2024 13:12 Note Text: PHYSICAL THERAPY MISSED VISIT SERVICE DATE: 12/10/2024 SERVICE TIME: 1137 ROOM: [place] [address] Patient not seen due to Declined to [...] DATE: December 10, 2024 TIME: 1:06 PM [facility] THERAPY NT HNO ID: [id number] Author: TENA LEY CCC-WATCH MECHANIC Service: Speech/Swallow Author Type: Speech Language Pathologist Type: Therapy (PT/OT/Speech/Resp) Filed: 12/10/2024 09:25 Note Text: Summary: Speech Speech Therapy Clinical Swallow Evaluation SERVICE DATE: 12/10/2024 SERVICE TIME: 0830 to 0910 ROOM: [place] [address] IMPRESSION Swallow Deficits Identified / Suspected: Oral [...] Dysphagia, oral phase TREATMENT INTERVENTIONS Dysphagia Therapy (46002), Clinical Swallow Evaluation (19231) Skilled Treatment Time (minutes): 40 TRAINING AND [...] education, Pt demonstrate frequent re-positioning) 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: WATCH MECHANIC Fed Patient Consistencies Presented: Thin Liquids IDDSI [...] meals., Oral Care before and after meals Clymer Swallow Protocol: Fail Fail: Patient stopping prior to completion (small sips) Suspected Esophageal Deficits: PMHx: GERD (more content not included)... Normal [facility] ACETYLCHOLINE REC BINDING AB on 12-09-2024 ACETYLCHOLINE BINDING, QUAL Negative Normal Negative [facility] Comment on above: Order Comment: Speci men Type: BLOOD SPECIMENOrdering Facility: [facility] Address: [address] [place] [address] Result Comment: Anti -acetylcholine receptor binding antibody test is used as an aid in diagnosis of myasthenia gravis. A negative result cannot exclude myasthenia gravis. Clinical correlation is required. Performed By: #### A CHRAB ####[facility] LABCLIA [id number] [place] [address] [place] Acetylcholine receptor binding Ab (S) [Moles/Vol] 0.03 nmol/L Normal <0.21 [facility] Comment on above: Order Comment: Speci men Type: BLOOD SPECIMENOrdering Facility: [facility] Address: [address] [place] [address] Performed By: #### A CHRAB ####[facility] LABCLIA [id number] [address] OF [facility] ALLIED HEALTH 12-09-2024 ALLIED HEALTH HNO ID: [id number] Author: JONATHAN MARSHALL Tech Service: Radiology Author Type: Venetian Blind Mechanic Type: Allied Health Filed: 12/09/2024 16:52 Note Text: Radiology [...] PATIENT PRESENTS WITH AN IMPLANTABLE OR ATTACHED WASHING MACHINE ASSEMBLER: No RADIOLOGY DEPARTMENT: Ultrasound PERIPHERAL IV DATA: Not applicable SIGNED BY: David Bone December 09, 2024 4:51 PM [facility] ALLIED HEALTH HNO ID: [id number] Author: SRIKANTH MEDINA Tech Service: ? Author Type: Venetian Blind Mechanic Type: Allied Health Filed: 12/09/2024 15:22 Note [...] PATIENT PRESENTS WITH AN IMPLANTABLE OR ATTACHED WASHING MACHINE ASSEMBLER: No RADIOLOGY DEPARTMENT: General X-ray: Exam(s) Completed: Pelvis X-Ray: Pelvis with Hip Right and Pelvis inlet/outlet PERIPHERAL IV DATA: Not applicable SIGNED BY: David Martinez December 09, 2024 3:[address] [facility] CBC panel Auto (Bld)on 12-09 Erythrocyte distribution width (RBC) [Ratio] 12.5 % Normal 11.5-15.0 [facility] Comment on above: Order Comment: Speci men Type: BLOOD SPECIMENOrdering Facility: [facility] Address: [address] [place] [address] Performed By: #### 5 8410-2 ####KENDRICK LABORATORYCLIA [id number] [address] Hematocrit (Bld) [Volume fraction] 37.0 % Normal 36.0-46.0 [facility] Comment on above: Order Comment: Speci men Type: BLOOD SPECIMENOrdering Facility: [facility] Address: [address] [place] [address] Performed By: #### 5 8410-2 ####KENDRICK LABORATORYCLIA [id number] [address] Hemoglobin (Bld) [Mass/Vol] 12.9 g/dL Normal 11.5-15.5 [facility] Comment on above: Order Comment: Speci men Type: BLOOD SPECIMENOrdering Facility: [facility] Address: [address] [place] [address] Performed By: #### 5 8410-2 ####KENDRICK LABORATORYCLIA [id number] [address] MCH (RBC) [Entitic mass] 32.2 pg Normal 26.0-34.0 [facility] Comment on above: Order Comment: Speci men Type: BLOOD SPECIMENOrdering Facility: [facility] Address: [address] [place] [address] Performed By: #### 5 8410-2 ####KENDRICK LABORATORYCLIA [id number] [address] MCHC (RBC) [Mass/Vol] 34.9 g/dL Normal 30.5-36.0 [facility] Comment on above: Order Comment: Speci men Type: BLOOD SPECIMENOrdering Facility: [facility] Address: [address] [place] [address] Performed By: #### 5 8410-2 ####KENDRICK LABORATORYCLIA [id number] [place] [address] [place] MCV (RBC) [Entitic vol] 92.3 fL Normal 80.0-100.0 M [facility] Comment on above: Order Comment: Speci men Type: BLOOD SPECIMENOrdering Facility: [facility] Address: [address] [place] [address] Performed By: #### 5 8410-2 ####KENDRICK LABORATORYCLIA [id number] [place] [address] [place] Nucleated RBC (Bld) [#/Vol] 10*3/uL Normal <0.01 [facility] Comment on above: Order Comment: Speci men Type: BLOOD SPECIMENOrdering Facility: [facility] Address: [address] [place] [address] Performed By: #### 5 8410-2 ####KENDRICK LABORATORYCLIA [id number] [address] [place] Platelet mean volume (Bld) [Entitic vol] 10.8 fL Normal 9.0-12.7 [facility] Comment on above: Order Comment: Speci men Type: BLOOD SPECIMENOrdering Facility: [facility] Address: [address] [place] [address] Performed By: #### 5 8410-2 ####KENDRICK LABORATORYCLIA [id number] [address] [place] Platelets (Bld) [#/Vol] 184 10*3/uL Normal 150-400 [facility] Comment on above: Order Comment: Speci men Type: BLOOD SPECIMENOrdering Facility: [facility] Address: [address] [place] [address] Performed By: #### 5 8410-2 ####KENDRICK LABORATORYCLIA [id number] [place] [address] [place] RBC (Bld) [#/Vol] 4.01 10*6/uL Normal 3.90-5.20 [facility] Comment on above: Order Comment: Speci men Type: BLOOD SPECIMENOrdering Facility: [facility] Address: [address] [place] [address] Performed By: #### 5 8410-2 ####KENDRICK LABORATORYCLIA [id number] [place] [address] [facility] WBC (Bld) [#/Vol] 6.41 10*3/uL Normal 3.70-11.00 [facility] Comment on above: Order Comment: Speci men Type: BLOOD SPECIMENOrdering Facility: [facility] Address: [address] [place] [address] Performed By: #### 5 8410-2 ####KENDRICK LABORATORYCLIA [id number] [place] [address] [facility] CONSULTon 12-09-2024 CONSULT HNO ID: [id number] Author: MILI MANZANARES MD Service: Neurology General [...] hours for Teleneurology please page (not call) [facility] [phone] converting operator for concerns. [place]: During Off hours for Teleneurology please page (not call) [facility] [phone] converting operator for concerns. [facility]: There is no off-hours coverage for Teleneurology. NEUROLOGY CONSULTATION Thank you for the consultation request. Name: Tena Cannon Age: [age] year old Gender: female Chief Complaint:Fall (Sent in from pcp to see if kidney infx or uti.had fall sun. Been weak, tired, nausea and back pain since fall Thursday from [facility].) Admission Date: 12/08/2024 Consult Requested By: , [...] CPAP Fal (more content not included)... Normal [facility] CRP SerPl-mCncon 12-09-2024 CRP [Mass/Vol] 2.1 mg/dL High <0.9 [facility] Comment on above: Order Comment: Speci men Type: BLOOD SPECIMENOrdering Facility: [facility] Address: [address] [place] [address] Performed By: #### 2 4362-6, 1987-12 ####[facility] LABORATORYCLIA [id number] [place] [id number] [place] ECG COMPLETEon 12-09-2024 ECG COMPLETE Ventricular Rate : 8 2 BPM Atrial Rate : 82 BPM P-R Interval : 206 ms QRS Duration : 86 ms Q-T Interval : 350 ms QTC Calculation(Bazett) : 408 ms Calculated P Buckley : 49 degrees Calculated R Buckley : -10 degrees Calculated T Buckley : 35 degrees NORMAL SINUS RHYTHM WITH SINUS ARRHYTHMIA NORMAL ECG WHEN COMPARED WITH ECG OF 29-Jul-2018 10:48, NO SIGNIFICANT CHANGE WAS FOUND Confirmed by WOLF MUNOZ MD ([id number]) on 12/09/2024 5:41:23 PM NAME : TENA CANNON PID : [id number] : 1940 Gender : Female Race : ORD : [id number] Procedure Date : Dec 09 2024 01:11:37 Edit Date : Dec 09 2024 17:41:24 Diagnosis: NORMAL SINUS RHYTHM WITH SINUS ARRHYTHMIA NORMAL ECG WHEN COMPARED WITH ECG OF 29-Jul-2018 10:48, NO SIGNIFICANT CHANGE WAS FOUND Confirmed by WOLF MUNOZ MD ([id number]) on 12/09/2024 5:41:23 PM Test Reason : Arrhythmia Location : 5 : 3S 0323 Overread By : WOLF MUNOZ MD Edited By : WOLF MUNOZ MD Referred By : , Acquired by : Dulce Maria Bonner [facility] Renal function 2000 panelon 12-09-2024 Albumin [Mass/Vol] 3.6 g/dL Low 3.9-4.9 [facility] Comment on above: Order Comment: Speci men Type: BLOOD SPECIMENOrdering Facility: [facility] Address: [address] [place] [address] Performed By: #### 2 43609-08, 1987-12 ####KENDRICK LABORATORYCLIA [id number] [place] [address] [place] [facility] Anion gap [Moles/Vol] 12 mmol/L Normal 8-15 [facility] Comment on above: Order Comment: Speci men Type: BLOOD SPECIMENOrdering Facility: [facility] Address: [address] [place] [address] Performed By: #### 2 43609-08, 1987-12 ####KENDRICK LABORATORYCLIA [id number] [place] [id number] [place] Calcium [Mass/Vol] 9.5 mg/dL Normal 8.5-10.2 [facility] Comment on above: Order Comment: Speci men Type: BLOOD SPECIMENOrdering Facility: [facility] Address: [address] [place] [address] Performed By: #### 2 4366, 1987-12 ####KENDRICK LABORATORYCLIA [id number] [place] [address] [place] Chloride [Moles/Vol] 100 mmol/L Normal 98-107 [facility] Comment on above: Order Comment: Speci men Type: BLOOD SPECIMENOrdering Facility: [facility] Address: [address] [place] [address] Performed By: #### 2 43609-08, 1987-12 ####KENDRICK LABORATORYCLIA [id number] [place] [address] [place] CO2 [Moles/Vol] 23 mmol/L Normal 22-30 [facility] Comment on above: Order Comment: Speci men Type: BLOOD SPECIMENOrdering Facility: [facility] Address: [address] [place] [address] Performed By: #### 2 43609-08, 1987-12 ####KENDRICK LABORATORYCLIA [id number] [place] [address] [place] Creatinine [Mass/Vol] 0.31 mg/dL Low 0.58-0.96 [facility] Comment on above: Order Comment: Noreeni men Type: BLOOD SPECIMENOrdering Facility: [facility] Address: [address] [place] [address] Performed By: #### 2 43609-08, 1987-12 ####KENDRICK LABORATORYCLIA [id number] [place] [id number] [facility] Creatinine and Glomerular filtration rate.predicted panel (S/P/Bld) 103 mL/min/1.73m??? Normal >=60 [facility] Comment on above: Order Comment: Helena men Type: BLOOD SPECIMENOrdering Facility: [facility] Address: [address] [place] [address] Result Comment: Sara mated Glomerular Filtration Rate [...] By: #### 2 43609-08, 1987-12 ####KENDRICK LABORATORYCLIA [id number] [place] [id number] [place] Glucose [Mass/Vol] 121 mg/dL High 74-99 [facility] Comment on above: Order Comment: Helena bronson Type: BLOOD SPECIMENOrdering Facility: [facility] Address: [address] [place] [address] Result Comment: The [place] Diabetes Association (ADA) provides guidance for cutoff [...] Standards of Medical Care in Diabetes 2016, [place] [employer]. Diabetes Care. 2016.39(Suppl 1). Performed By: #### 2 43609-08, 1987-12 ####[facility] LABORATORYCLIA [id number] [place] [address] [place] Phosphate [Mass/Vol] 2.8 mg/dL Normal 2.7-4.8 [facility] Comment on above: Order Comment: Helena bronson Type: BLOOD SPECIMENOrdering Facility: [facility] Address: [address] [place], [place] [address] Performed By: #### 2 43609-08, 1987-12 ####KENDRICK LABORATORYCLIA [id number] [place] [id number] [place] Potassium [Moles/Vol] 3.8 mmol/L Normal 3.7-5.1 [facility] Comment on above: Order Comment: Helena bronson Type: BLOOD SPECIMENOrdering Facility: [facility] Address: [address] [place], [place] [address] Performed By: #### 2 43609-08, 1987-12 ####KENDRICK LABORATORYCLIA [id number] [place] [id number] [place] Sodium [Moles/Vol] 135 mmol/L Low 136-144 [facility] Comment on above: Order Comment: Helena bronson Type: BLOOD SPECIMENOrdering Facility: [facility] Address: [address] [place], [place] [address] Performed By: #### 2 43626, 1987-12 ####KENDRICK LABORATORYCLIA [id number] [place] [id number] [facility] Urea nitrogen [Mass/Vol] 15 mg/dL Normal 7-21 [facility] Comment on above: Order Comment: Speci men Type: BLOOD SPECIMENOrdering Facility: [facility] Address: [address] [place], [place] [address] Performed By: #### 2 4362, 1987-12 ####KENDRICK LABORATORYCLIA [id number] [address] THERAPY NTon 12-09-2024 THERAPY NT HNO ID: [id number] Author: WHIT MONSON CCC-SLP Service: Speech/Swallow Author Type: Speech Language Pathologist Type: Therapy (PT/OT/Speech/Resp) Filed: 12/09/2024 15:07 Note Text: Summary: WATCH MECHANIC Missed Visit SPEECH THERAPY MISSED VISIT SERVICE DATE: 12/09/2024 SERVICE TIME: 1507 ROOM: [place] [address] ([facility]) Patient not seen due to Test / Procedure. -pt is off the floor at this time. SIGNATURE: CARLOS Bolivar PATIENT NAME: Tena Cannon DATE: December 09, 2024 TIME: 3:[address] [facility] THERAPY NT HNO ID: [id number] Author: MARTHA DAMON OT/Safia Service: Occupational Therapy Author Type: Occupational Therapist Type: Therapy (PT/OT/Speech/Resp) Filed: 12/09/2024 13:06 Note Text: Summary: OT Evaluation Occupational Therapy Evaluation Summary SERVICE DATE: 12/09/2024 SERVICE TIME: 1149 to 1241 ROOM: [id number]- OT 6 Clicks Score: 13 DISCHARGE RECOMMENDATIONS [...] With: Facility Care, Other: See Comment Comments: [facility] [place] Assistance Available: 24-Hour Entry To Home: No [...] daily living (ADL) TREATMENT INTERVENTIONS Evaluation, Self Mcfp Management (57718) Timed Code Treatment (minutes): 24 Skilled Treatment [...] 3 Times Per (more content not included)... Normal [facility] THERAPY NT HNO ID: [id number] Author: TENA LEY CCC-WATCH MECHANIC Service: Speech/Swallow Author Type: Speech Language Pathologist Type: Therapy (PT/OT/Speech/Resp) Filed: 12/09/2024 11:02 Note Text: Summary: Speech - missed [facility]ER[facility] SPEECH THERAPY MISSED VISIT NOTE SERVICE DATE: 12/09/2024 SERVICE TIME: 10:10 AM Attempted patient therapy visit, but was unable for the following reason(s): - attempted Speech therapy - Pt unavailable; another service at bedside -- Will re-attempt as schedule AND Patient availability permits SIGNATURE: Tena Ley CCC-BRIGIDO PATIENT NAME: Tena Cannon DATE: December 09, 2024 TIME: 11:02 AM [facility] US DVT LOWER BILon US DVT LOWER [...] of the left and right lower extremities. Certified Ophthalmic Technician: RYAN Transcribe Date/Time: Dec 09 2024 4:55P Dictated by : JEANNETTE ELDER MD This examination was interpreted and the report reviewed and electronically signed by: JEANNETTE ELDER MD on Dec 09 2024 4:55PM EST [id number] [facility] XR HIP 3V PELV+ AP/LAT RTon 12-09-2024 [...] images should satisfy evaluation of the hips. Certified Ophthalmic Technician: PSCB Transcribe Date/Time: Dec 09 2024 3:26P Dictated by : QUINCY SALAS DO This examination was interpreted and the report reviewed and electronically signed by: QUINCY SALAS DO on Dec 09 2024 3:31PM EST [id number] [facility] XR PELVIS 2V INLET/OUTLETon 12-09-2024 XR PELVIS [...] images should satisfy evaluation of the hips. Certified Ophthalmic Technician: PSCB Transcribe Date/Time: Dec 09 2024 3:26P Dictated by : QUINCY SALAS DO This examination was interpreted and the report reviewed and electronically signed by: QUINCY SALAS DO on Dec 09 2024 3:31PM EST [id number] [facility] 12-08-2024 ALLIED HEALTH HNO ID: [id number] Author: MENDOZA GILLETTE Tech Service: Radiology Author Type: Venetian Blind Mechanic Type: Allied Health Filed: 12/08/2024 17:01 Note [...] PATIENT PRESENTS WITH AN IMPLANTABLE OR ATTACHED WASHING MACHINE ASSEMBLER: No RADIOLOGY DEPARTMENT: General X-ray: Exam(s) Completed: Chest X-Ray PERIPHERAL IV DATA: Not applicable SIGNED BY: David Boyd December 08, 2024 5:01 PM [facility] HEALTH HNO ID: [id number] Author: NEDA AKINS TECHNOLOGIST Service: Radiology Author [...] PATIENT PRESENTS WITH AN IMPLANTABLE OR ATTACHED WASHING MACHINE ASSEMBLER: No RADIOLOGY DEPARTMENT: CT; Exam(s) Completed: Abdomen/Pelvis , Brain , and Spine PERIPHERAL IV DATA: Not applicable SIGNED BY: TECHNOLOGIST Mariela December 08, 2024 4:47 PM [facility] Bacteria Ur Culton Bacteria identified Cx Nom (U) ORGANISM ID: 1 10,000 -<50,000 CFU/ml Normal urogenital lisa Normal [facility] Comment on above: Performed By: #### 6 30-4 #### [facility] CLIA [id number] [address] [place], [place] [address] [address] [place] CBC W Auto Differential pane l (Bld)on 12-08-2024 Basophils (Bld) [#/Vol] 0.05 10*3/uL Normal <0.11 [facility] Comment on above: Order Comment: Speci men Type: BLOOD SPECIMENOrdering Facility: [facility] Address: [address] [place] [address] Performed By: #### 5 7021-8 ####[facility] LABORATORYCLIA [id number] [place] [address] [place] Basophils/100 WBC (Bld) 0.8 % Normal [facility] Comment on above: Order Comment: Speci men Type: BLOOD SPECIMENOrdering Facility: [facility] Address: [address] [place] [address] Performed By: #### 5 7021-8 ####KENDRICK LABORATORYCLIA [id number] [place] [address] [facility] [place] Differential cell count method Nom (Bld) Auto Normal [facility] Comment on above: Order Comment: Speci men Type: BLOOD SPECIMENOrdering Facility: [facility] Address: [address] [place] [address] Performed By: #### 5 7021-8 ####KENDRICK LABORATORYCLIA [id number] [place] [address] [place] Eosinophils (Bld) [#/Vol] 0.12 10*3/uL Normal <0.46 [facility] Comment on above: Order Comment: Speci men Type: BLOOD SPECIMENOrdering Facility: [facility] Address: [address] [place] [address] Performed By: #### 5 7021-8 ####KENDRICK LABORATORYCLIA [id number] [address] STATES [facility] Eosinophils/100 WBC (Bld) 1.9 % Normal [facility] Comment on above: Order Comment: Speci men Type: BLOOD SPECIMENOrdering Facility: [facility] Address: [address] [place] [address] Performed By: #### 5 7021-8 ####KENDRICK LABORATORYCLIA [id number] [address] [place] Erythrocyte distribution width (RBC) [Ratio] 12.6 % Normal 11.5-15.0 [facility] Comment on above: Order Comment: Speci men Type: BLOOD SPECIMENOrdering Facility: [facility] Address: [address] [place] [address] Performed By: #### 5 7021-8 ####KENDRICK LABORATORYCLIA [id number] [place] [address] [place] Hematocrit (Bld) [Volume fraction] 39.9 % Normal 36.0-46.0 [facility] Comment on above: Order Comment: Speci men Type: BLOOD SPECIMENOrdering Facility: [facility] Address: [address] [place] [address] [place] [address] Performed By: #### 5 7021-8 ####KENDRICK LABORATORYCLIA [id number] [address] [place] Hemoglobin (Bld) [Mass/Vol] 13.6 g/dL Normal 11.5-15.5 [facility] Comment on above: Order Comment: Speci men Type: BLOOD SPECIMENOrdering Facility: [facility] Address: [address] [place] [address] Performed By: #### 5 7021-8 ####KENDRICK LABORATORYCLIA [id number] [address] [place] Immature granulocytes (Bld) [#/Vol] 10*3/uL Normal <0.10 [facility] Comment on above: Order Comment: Speci men Type: BLOOD SPECIMENOrdering Facility: [facility] Address: [address] [place] [address] Performed By: #### 5 7021-8 ####KENDRICK LABORATORYCLIA [id number] [address] [place] Immature granulocytes/100 WBC (Bld) 0.3 % Normal [facility] Comment on above: Order Comment: Speci men Type: BLOOD SPECIMENOrdering Facility: [facility] Address: [address] [place] [address] Performed By: #### 5 7021-8 ####KENDRICK LABORATORYCLIA [id number] [place] [address] [place] Lymphocytes (Bld) [#/Vol] 1.21 10*3/uL Normal 1.00-4.00 [facility] Comment on above: Order Comment: Speci men Type: BLOOD SPECIMENOrdering Facility: [facility] Address: [address] [place] [address] Performed By: #### 5 7021-8 ####KENDRICK LABORATORYCLIA [id number] [address] STATES [facility] Lymphocytes/100 WBC (Bld) 18.7 % Normal [facility] Comment on above: Order Comment: Speci men Type: BLOOD SPECIMENOrdering Facility: [facility] Address: [address] [place] [address] Performed By: #### 5 7021-8 ####KENDRICK LABORATORYCLIA [id number] [address] [place] MCH (RBC) [Entitic mass] 31.6 pg Normal 26.0-34.0 [facility] Comment on above: Order Comment: Speci men Type: BLOOD SPECIMENOrdering Facility: [facility] Address: [address] [place] [address] Performed By: #### 5 7021-8 ####KENDRICK LABORATORYCLIA [id number] [address] [place] MCHC (RBC) [Mass/Vol] 34.1 g/dL Normal 30.5-36.0 [facility] Comment on above: Order Comment: Speci men Type: BLOOD SPECIMENOrdering Facility: [facility] Address: [address] [place] [address] Performed By: #### 5 7021-8 ####KENDRICK LABORATORYCLIA [id number] [address] MCV (RBC) [Entitic vol] 92.8 fL Normal 80.0-100.0 [facility] Comment on above: Order Comment: Speci men Type: BLOOD SPECIMENOrdering Facility: [facility] Address: [address] [place] [address] Performed By: #### 5 7021-8 ####KENDRICK LABORATORYCLIA [id number] [address] [place] Monocytes (Bld) [#/Vol] 0.74 10*3/uL Normal <0.87 [facility] Comment on above: Order Comment: Speci men Type: BLOOD SPECIMENOrdering Facility: [facility] Address: [address] [place] [address] Performed By: #### 5 7021-8 ####KENDRICK LABORATORYCLIA [id number] [place] [address] [place] Monocytes/100 WBC (Bld) 11.4 % Normal [facility] Comment on above: Order Comment: Speci men Type: BLOOD SPECIMENOrdering Facility: [facility] Address: [address] [place] [address] Performed By: #### 5 7021-8 ####KENDRICK LABORATORYCLIA [id number] [place] [address] [place] Neutrophils (Bld) [#/Vol] 4.34 10*3/uL Normal 1.45-7.50 [facility] Comment on above: Order Comment: Speci men Type: BLOOD SPECIMENOrdering Facility: [facility] Address: [address] [place] [address] Performed By: #### 5 7021-8 ####KENDRICK LABORATORYCLIA [id number] [address] [place] Neutrophils/100 WBC (Bld) 66.9 % Normal [facility] Comment on above: Order Comment: Speci men Type: BLOOD SPECIMENOrdering Facility: [facility] Address: [address] [place] [address] Performed By: #### 5 7021-8 ####KENDRICK LABORATORYCLIA [id number] [place] [address] [place] Nucleated RBC (Bld) [#/Vol] 10*3/uL Normal <0.01 [facility] Comment on above: Order Comment: Speci men Type: BLOOD SPECIMENOrdering Facility: [facility] Address: [address] [place] [address] Performed By: #### 5 7021-8 ####KENDRICK LABORATORYCLIA [id number] [place] [address] [place] Nucleated RBC/100 WBC (Bld) [Ratio] 0.0 /[address] [facility] Comment on above: Order Comment: Speci men Type: BLOOD SPECIMENOrdering Facility: [facility] Address: [address] [place] [address] Performed By: #### 5 7021-8 ####KENDRICK LABORATORYCLIA [id number] [address] Platelet mean volume (Bld) [Entitic vol] 10.9 fL Normal 9.0-12.7 [facility] Comment on above: Order Comment: Speci men Type: BLOOD SPECIMENOrdering Facility: [facility] Address: [address] [place] [address] Performed By: #### 5 7021-8 ####KENDRICK LABORATORYCLIA [id number] [address] [place] Platelets (Bld) [#/Vol] 204 10*3/uL Normal 150-400 [facility] Comment on above: Order Comment: Speci men Type: BLOOD SPECIMENOrdering Facility: [facility] Address: [address] [place] [address] Performed By: #### 5 7021-8 ####[place] LABORATORYCLIA [id number] [address] RBC (Bld) [#/Vol] 4.30 10*6/uL Normal 3.90-5.20 [facility] Comment on above: Order Comment: Speci men Type: BLOOD SPECIMENOrdering Facility: [facility] Address: [address] [place] [address] Performed By: #### 5 7021-8 ####KENDRICK LABORATORYCLIA [id number] [address] WBC (Bld) [#/Vol] 6.48 10*3/uL Normal 3.70-11.00 [facility] Comment on above: Order Comment: Speci men Type: BLOOD SPECIMENOrdering Facility: [facility] Address: [address] [place] [address] Performed By: #### 5 7021-8 ####KENDRICK LABORATORYCLIA [id number] [address] CNPPascale 12-08-2024 PHAN Telephone ([facility]) TENA CANNON ([id number]) 1940 F Date Time Provider Department 12/08/24 SAHRA GUY During your visit today, we recorded the following information about you: Melissa Monroe Norma 12/08/2024 10:23 AM Signed Patient daughterJuan is calling Sahra Guy MD today to request a prior authorization for the lidocaine 5% per pharmacy [facility] in [place] on [address] Please call daughter with updates on this PA Patient has been identified by name and birthdate. Person calling: daughter: Juna Call patient daughter Juan [phone] (home) [phone] (cell) Was an appointment scheduled: No Closing statement: Prior Auth needed for the Lidocaine [facility] Adonay Marquez LPN 12/08/2024 1:33 PM Signed PA submitted. Response pending. [place] Tete Boucher 12/09/2024 2:31 PM Signed Juan, daughter called and stated lidocaine patches are denied and the insurance has faxed an appeal form to our office. She is requesting this is completed. Please call [facility] [phone] at 8-5pm central time. Please follow up [...] Juan states pt will be transitioning to [facility] for inpatient physical therapy. Juan requested pt's [...] TEARS OPHTHALMIC) Use in eyes. - rutin/hesp/bioflav/C/h [id number] (BIOFLEX ORAL) Take 1 capsule by mouth twice daily. - CPAP BipaP @ 14/9 cm of water with humidific (more content not included)... Normal [facility] CT ABD/PEL WO IVCONon 2024 CT ABD/PEL WO IVCON * * *Final Report* * * DATE OF EXAM: Dec 08 2024 4:57PM [facility] [place] 0531 - CT ABD/PEL [...] in the lumbar spine. Advanced degenerative changes. Certified Ophthalmic Technician: PSCB Transcribe Date/Time: Dec 08 2024 5:59P Dictated by : SIERRA SILVER MD This examination was interpreted and the report reviewed and electronically signed by: SIERRA SILVER MD on Dec 08 2024 6:18PM EST [id number] [facility] CT BRAIN WO IVCONon 12-09-19 CT BRAIN WO IVCON * * *Final Report* * * DATE OF EXAM: Dec 08 2024 4:56PM [facility] [place] 0504 - CT BRAIN WO IVCON / PROCEDURE REASON: Head trauma, moderate-severe * * * * Physician Interpretation * * * * EXAMINATION: CT BRAIN WO IVCON, CT CERVICAL SPINE WO IVCON CLINICAL HISTORY: Head trauma, moderate-severe (accession [id number]), Spine fracture, cervical, traumatic (accession [id number]) TECHNIQUE: Serial axial images without IV contrast [...] with counting from the craniocervical junction. : Certified Ophthalmic Technician: MOLIB Transcribe Date/Time: Dec 08 2024 5:11P Dictated by : FAUSTINO KINSEY MD This examination was interpreted and the report reviewed and electronically signed by: FAUSTINO KINSEY MD on Dec 08 2024 5:24PM EST [id number] [facility] CT CERVICAL SPINE WO IVCONon 12-08-2024 CT CERVICAL SPINE WO IVCON * * *Final Report* * * DATE OF EXAM: Dec 08 2024 4:56PM [facility] [place] [facility] 0505 - CT CERVICAL SPINE WO IVCON / PROCEDURE REASON: Spine fracture, cervical, traumatic * * * * Physician Interpretation * * * * EXAMINATION: CT BRAIN WO IVCON, CT CERVICAL SPINE WO IVCON CLINICAL HISTORY: Head trauma, moderate-severe (accession [id number]), Spine fracture, cervical, traumatic (accession [id number]) TECHNIQUE: Serial axial images without IV contrast [...] with counting from the craniocervical junction. : Certified Ophthalmic Technician: PSCB Transcribe Date/Time: Dec 08 2024 5:11P Dictated by : FAUSTINO KINSEY MD This examination was interpreted and the report reviewed and electronically signed by: FAUSTINO KINSEY MD on Dec 08 2024 5:24PM EST [id number] [facility] CT LUMBAR SPINE W RECON DATA -NBon 12-08-2024 CT LUMBAR SPINE W RECON DATA -NB * * *Final Report* * * DATE OF EXAM: Dec 08 2024 4:57PM [facility] [place] [facility] 0481 - CT LUMBAR [...] in the lumbar spine. Advanced degenerative changes. Certified Ophthalmic Technician: RYAN Transcribe Date/Time: Dec 08 2024 5:59P Dictated by : SIERRA SILVER MD This examination was interpreted and the report reviewed and electronically signed by: SIERRA SILVER MD on Dec 08 2024 6:18PM EST [id number] Normal [facility] Comprehensive metabolic 2000 panelon 12-08-2024 Albumin [Mass/Vol] 4.1 g/dL Normal 3.9-4.9 [facility] Comment on above: Order Comment: Speci men Type: BLOOD SPECIMENOrdering Facility: [facility] Address: [address] [place] [address] Performed By: #### 2 4323-8, 3040-3 ####KENDRICK LABORATORYCLIA [id number] [address] STATES OF [facility] ALP [Catalytic activity/Vol] 68 U/L Normal 34-123 [facility] Comment on above: Order Comment: Speci men Type: BLOOD SPECIMENOrdering Facility: [facility] Address: [address] [place] [address] Performed By: #### 2 4323-8, 3040-3 ####KENDRICK LABORATORYCLIA [id number] [address] STATES OF [facility] ALT [Catalytic activity/Vol] 15 U/L Normal 7-38 [facility] Comment on above: Order Comment: Speci men Type: BLOOD SPECIMENOrdering Facility: [facility] Address: [address] [place] [address] Performed By: #### 2 4323-8, 3040-3 ####KENDRICK LABORATORYCLIA [id number] [place] [address] [place] [facility] Anion gap [Moles/Vol] 12 mmol/L Normal 8-15 [facility] Comment on above: Order Comment: Speci men Type: BLOOD SPECIMENOrdering Facility: [facility] Address: [address] [place], [place] [address] Performed By: #### 2 4323-8, 0-3 ####KENDRICK LABORATORYCLIA [id number] [place] [address] [place] AST [Catalytic activity/Vol] 18 U/L Normal 13-35 [facility] Comment on above: Order Comment: Speci men Type: BLOOD SPECIMENOrdering Facility: [facility] Address: [address] [place] [address] Performed By: #### 2 4323-8, 0-3 ####KENDRICK LABORATORYCLIA [id number] [place] [address] [place] Bilirubin [Mass/Vol] 0.4 mg/dL Normal 0.2-1.3 [facility] Comment on above: Order Comment: Speci men Type: BLOOD SPECIMENOrdering Facility: [facility] Address: [address] [place] [address] Performed By: #### 2 4323-8, 3039-3 ####KENDRICK LABORATORYCLIA [id number] [place] [address] [place] Calcium [Mass/Vol] 10.1 mg/dL Normal 8.5-10.2 [facility] Comment on above: Order Comment: Speci men Type: BLOOD SPECIMENOrdering Facility: [facility] Address: [facility] [address] [address] Performed By: #### 2 4323-8, 0-3 ####KENDRICK LABORATORYCLIA [id number] [place] [address] [place] Chloride [Moles/Vol] 99 mmol/L Normal 98-107 [facility] Comment on above: Order Comment: Speci men Type: BLOOD SPECIMENOrdering Facility: [facility] Address: [address] [place] [address] [place] [address] Performed By: #### 2 4323-8, 3040-3 ####KENDRICK LABORATORYCLIA [id number] [place] [address] [place] CO2 [Moles/Vol] 27 mmol/L Normal 22-30 [facility] Comment on above: Order Comment: Speci men Type: BLOOD SPECIMENOrdering Facility: [facility] Address: [address] [place] [id number] Performed By: #### 2 4323-8, 3040-3 ####[place] LABORATORYCLIA [id number] [address] Creatinine [Mass/Vol] 0.39 mg/dL Low 0.58-0.96 [facility] Comment on above: Order Comment: Helena bronson Type: BLOOD SPECIMENOrdering Facility: [facility] Address: [address] [place] [address] Performed By: #### 2 4323-8, 0-3 ####KENDRICK LABORATORYCLIA [id number] [address] Creatinine and Glomerular filtration rate.predicted panel (S/P/Bld) 97 mL/min/1.73m??? Normal >=60 [facility] Comment on above: Order Comment: Helena bronson Type: BLOOD SPECIMENOrdering Facility: [facility] Address: [address] [place] [address] Result Comment: Sara mated Glomerular Filtration Rate [...] By: #### 2 4323-8, 0-3 ####KENDRICK LABORATORYCLIA [id number] [address] Glucose [Mass/Vol] 84 mg/dL Normal 74-99 [facility] Comment on above: Order Comment: Helena bronson Type: BLOOD SPECIMENOrdering Facility: [facility] Address: [address] [place] [address] Result Comment: The [place] Diabetes Association (ADA) provides guidance for cutoff [...] Standards of Medical Care in Diabetes 2016, [place] [employer]. Diabetes Care. 2016.39(Suppl 1). Performed By: #### 2 4323-8, 3040-3 ####KENDRICK LABORATORYCLIA [id number] [place] [address] [place] Potassium [Moles/Vol] 3.8 mmol/L Normal 3.7-5.1 [facility] Comment on above: Order Comment: Helena bronson Type: BLOOD SPECIMENOrdering Facility: [facility] Address: [address] [place] [address] Performed By: #### 2 4323-8, 0-3 ####KENDRICK LABORATORYCLIA [id number] [place] [address] [place] Protein [Mass/Vol] 7.3 g/dL Normal 6.3-8.0 [facility] Comment on above: Order Comment: Helena bronson Type: BLOOD SPECIMENOrdering Facility: [facility] Address: [address] [place] [address] Performed By: #### 2 4323-8, 0-3 ####KENDRICK LABORATORYCLIA [id number] [place] [address] [place] Sodium [Moles/Vol] 138 mmol/L Normal 136-144 [facility] Comment on above: Order Comment: Helena bronsno Type: BLOOD SPECIMENOrdering Facility: [facility] Address: [address] [place] [address] Performed By: #### 2 4323-8, 3040-3 ####KENDRICK LABORATORYCLIA [id number] [place] [address] [place] Urea nitrogen [Mass/Vol] 18 mg/dL Normal 7-21 [facility] Comment on above: Order Comment: Helena bronson Type: BLOOD SPECIMENOrdering Facility: [facility] Address: [address] [place] [address] Performed By: #### 2 4323-8, 3040-3 ####[place] LABORATORYCLIA [id number] [place] [address] [facility] ED NOTEon 12-08-2024 ED NOTE HNO ID: [id number] Author: KRISTINE UMANZOR, RN Service: Nursing Author Type: Registered Nurse Type: ED Notes Filed: 12/08/2024 20:45 Note Text: Pt is wearing own nightgown [facility] ED NOTE HNO ID: [id number] Author: RADU DISLA, HILDA Service: ? Author Type: Registered Nurse Type: ED Notes Filed: 12/08/2024 20:02 Note Text: [facility] ED NOTE HNO ID: [id number] Author: RADU DISLA RN Service: ? Author Type: Registered Nurse Type: ED Notes Filed: 12/08/2024 20:02 Note Text: Pt back from ct co way increased back pain after laying flat on ct table. Sts 12/10 and now bp up to 225/90s [facility] ED NOTE HNO ID: [id number] Author: RADU DISLA RN Service: ? Author Type: Registered Nurse Type: ED Notes Filed: 12/08/2024 17:05 Note Text: [facility] ED NOTE HNO ID: [id number] Author: HARINDER HEADLEY RN Service: ? Author Type: Registered Nurse Type: ED Notes Filed: 12/08/2024 15:58 Note Text: Bed: ED-10 Expected date: 12/08/24 Expected time: 3:35 PM Means of arrival: [place] [facility] Comments: [facility] ED PROV NOTEon 12-08-2024 ED PROV NOTE HNO ID: [id number] Author: EDGARD PEREZ MD Service: Emergency Medicine [...] vessels break" Novocain [Procaine * Intolerance headaches [place]-3 Fish Oil [O* Intolerance bleeding in eye [...] to l (more content not included)... Normal [facility] HISTORY PHYSICALon HISTORY PHYSICAL HNO ID: [id number] Author: SUKI GALVAN MD Service: Hospital Medicine Author Type: Physician Type: H&P Filed: 12/08/2024 21:49 Note Text: DEPARTMENT OF HOSPITAL MEDICINE HISTORY AND PHYSICAL EXAM SERVICE DATE: 12/08/2024 SERVICE TIME: 9:48 PM Primary Care Physician: Sahra Guy MD NIGHT AND WEEKEND COVERAGE: [place] COVERAGE: Days: [phone], please page attending physician. Nights: [phone], please page [place] [facility] Night coverage pager [phone]. Subjective CHIEF COMPLAINT: fall HPI: 84-year-old female [...] INTRAVENOUS PRN (more content not included)... Normal [facility] Lipase SerPl-cCncon 12-09-19 25 Lipase [Catalytic activity/Vol] 20 U/L Normal 16-61 [facility] Comment on above: Order Comment: Helena bronson Type: BLOOD SPECIMENOrdering Facility: [facility] Address: [address] [place] [address] Performed By: #### 2 4323-8, 3040-3 ####[place] LABORATORYCLIA [id number] [place] [id number] [facility] PT panel Coag (PPP)on 2024 INR Coag (PPP) [Relative time] 1.1 {INR} Normal 0.9-1.3 [facility] Comment on above: Order Comment: Helena bronson Type: BLOOD SPECIMENOrdering Facility: [facility] Address: [address] [place] [address] Result Comment: Yvonne min K Antagonist (VKA) Therapeutic Range: INR 2 to 3 (Target INR of 2.5) Note: For patients treated with VKA drugs, such as warfarin, the [place] [employer] 2012 Guideline recommends [...] 2012, 141:7S-47S Juan Jose RA, et al. JAC 2017, 70: 252-289 Performed By: #### 1 4979-9, 66948-2 ####[place] LABORATORYCLIA [id number] [place] [id number] [place] PT Coag (PPP) [Time] 11.4 s Normal 9.7-13.0 [facility] Comment on above: Order Comment: Helena bronson Type: BLOOD SPECIMENOrdering Facility: [facility] Address: [address] [place] [address] Performed By: #### 1 4979-9, 69629-2 ####KENDRICK LABORATORYCLIA [id number] [address] URINALYSIS, REFLEX MICROSCOP ICon 12-08-2024 Bilirubin Ql (U) Negative Normal Negative [facility] Comment on above: Order Comment: Speci men Type: URINE SPECIMENOrdering Facility: [facility] Address: [address] [place] [address] Performed By: #### L [id number] ####KENDRICK LABORATORYCLIA [id number] [address] Clarity (Unsp spec) Clear Normal Clear [facility] Comment on above: Order Comment: Speci men Type: URINE SPECIMENOrdering Facility: [facility] Address: [address] [place] [address] Performed By: #### L [id number] ####KENDRICK LABORATORYCLIA [id number] [address] Color (U) Yellow Normal Yellow [facility] Comment on above: Order Comment: Speci men Type: URINE SPECIMENOrdering Facility: [facility] Address: [address] [place] [address] Performed By: #### L [id number] ####KENDRICK LABORATORYCLIA [id number] [address] Glucose Test strip (U) [Mass/Vol] Negative Normal Negative [facility] Comment on above: Order Comment: Speci men Type: URINE SPECIMENOrdering Facility: [facility] Address: [address] [place] [address] Performed By: #### L [id number] ####KENDRICK LABORATORYCLIA [id number] [address] Hemoglobin Ql (U) Negative Normal Negative [facility] Comment on above: Order Comment: Speci men Type: URINE SPECIMENOrdering Facility: [facility] Address: [address] [place] [address] Performed By: #### L [id number] ####KENDRICK LABORATORYCLIA [id number] [address] [place] Ketones Ql (U) 2+ Abnormal Negative [facility] Comment on above: Order Comment: Speci men Type: URINE SPECIMENOrdering Facility: [facility] Address: [address] [place] [address] Performed By: #### L [id number] ####KENDRICK LABORATORYCLIA [id number] [address] Leukocyte esterase Test strip Ql (U) Negative Normal Negative [facility] Comment on above: Order Comment: Speci men Type: URINE SPECIMENOrdering Facility: [facility] Address: [address] [place] [address] Performed By: #### L [id number] ####KENDRICK LABORATORYCLIA [id number] [place] [address] [place] Nitrite Ql (U) Negative Normal Negative [facility] Comment on above: Order Comment: Speci men Type: URINE SPECIMENOrdering Facility: [facility] Address: [address] [place] [address] Performed By: #### L [id number] ####KENDRICK LABORATORYCLIA [id number] [place] [address] [place] pH (U) 6.0 [pH] Normal 5.0-8.0 [facility] Comment on above: Order Comment: Speci men Type: URINE SPECIMENOrdering Facility: [facility] Address: [address] [place] [address] Performed By: #### L [id number] ####KENDRICK LABORATORYCLIA [id number] [place] [address] [place] Protein (U) [Mass/Vol] Negative Normal Negative [facility] Comment on above: Order Comment: Speci men Type: URINE SPECIMENOrdering Facility: [facility] Address: [address] [place] [address] Performed By: #### L [id number] ####KENDRICK LABORATORYCLIA [id number] [place] [address] [place] Specific gravity (U) [Rel density] 1.020 Normal 1.005-1.030 [facility] Comment on above: Order Comment: Speci men Type: URINE SPECIMENOrdering Facility: [facility] Address: [address] [facility] [place] [id number] Performed By: #### L [id number] ####KENDRICK LABORATORYCLIA [id number] [place] [id number] [facility] Urobilinogen Ql (U) 0.2 EU/dL Normal 0.2-1.0 EU/dL [facility] Comment on above: Order Comment: Speci men Type: URINE SPECIMENOrdering Facility: [facility] Address: [address] [place] [id number] Performed By: #### L [id number] ####KENDRICK LABORATORYCLIA [id number] [address] XR CHEST 1V FRONTAL PORTon 0 [...] the findings on the concurrent abdominal CT. Certified Ophthalmic Technician: RYAN Transcribe Date/Time: Dec 08 2024 5:22P Dictated by : TAMERA DRAKE MD This examination was interpreted and the report reviewed and electronically signed by: TAMERA DRAKE MD on Dec 08 2024 5:25PM EST [id number] Normal [facility] aPTT PPPon 12-08-2024 aPTT Coag (PPP) [Time] 27.9 s Normal 23.0-32.4 [facility] Comment on above: Order Comment: Speci men Type: BLOOD SPECIMENOrdering Facility: [facility] Address: [address] [place] [address] Performed By: #### 1 4979-9, 19882-8 ####[place] LABORATORYCLIA [id number] [place] [address] [facility] CNPNon 12-07-2024 CNPN Telephone (AYESonogenix) TENA CANNON ([id number]) 1940 F Date Time Provider Department 12/07/24 SAHRA GUY During your visit today, we recorded the following information about you: Sugey Stover 12/07/2024 3:21 PM Signed Patient's daughter is calling that the Rx Lidocaine is not covered for the 4% but the 5% is. She is asking if this can be re-ordered as such and sent to [facility] while she is in the [facility] today. Please call [facility] if the Rx is being changed/sent. [phone] Sahra Guy MD 12/07/2024 4:52 PM Signed The following approved medication requests have been transmitted electronically. Requested Prescriptions Signed Prescriptions Disp Refills lidocaine (LIDODERM) 5 % 30 patch 2 Sig: Apply 1 patch as directed once daily. REMOVE AFTER 12 HOURS. Authorizing Provider: SAHRA GUY Pharmacy Information Pharmacy Address Telephone [id number] [place] [address] MD Eladio Mitchell Cheralyn, LPN 12/07/2024 5:17 PM Signed Called and spoke with pt and daughter Juan. Stated they will cone picker medication. Pt would like to know [...] TEARS OPHTHALMIC) Use in eyes. - rutin/hesp/bioflav/C/h [id number] (BIOFLEX ORAL) Take 1 capsule by mouth [...] VENOUS INSUFFICIENCY (more content not included)... Normal [facility] 10-24-2024 [facility] Telephone (LINDY) CANNONTENA Esquivel ([id number]) 1940 F Date Time Provider Department 10/24/24 SAHRA GUY During your visit today, we recorded the following information about you: Malika Sheikh LPN 10/24/2024 3:34 PM Signed Received 10/21/2024 from [facility]. Placed in provider's inbox for review. Route to [place] for faxing Allergies As of Date: 10/24/2024 [...] Reason for Visit: Received Outside Medical Records [[id number]] Cmt: [facility] OT Evaluation performed no further treatment. [...] TEARS OPHTHALMIC) Use in eyes. - rutin/hesp/bioflav/C/h [id number] (BIOFLEX ORAL) Take 1 capsule by mouth [...] LOWER LEG [M25.569] 01/22/2007 VERTEBRAL FX NOS-CLOSED [[id number]] 03/24/2007 RESTLESS LEGS SYNDROME [G25.81] BONE AND CARTILAGE DIS NOS [M89.9, M94.9] PAIN IN LIMB [M79.609] 11/22/2008 Deformity of ankle and foot, acquired [M21.969] 11/22/2008 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, M21.6X9] 11/27/2008 Poliomyelitis osteopathy of multiple sites (HCC*11/27/2008 Sleep apnea [G47.30] 04/15/2010 02/01/2019 Vitamin D Deficiency [E55.9] 04/15/2010 Osteopenia [M85.80] 04/15/2010 Incontinence [R32] 07/19/2012 Fracture of L1 vertebra ([facility]) [S32.019A] 06/02/2014 02/01/2019 Lumbar radiculopathy [M54.16] 06/03/2014 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 Normal [facility] CNPPascale 10-19-2024 CNPN Telephone (WALKWA) TENA CANNON ([id number]) 1940 F Date Time Provider Department 10/19/24 SAHRA GUY During your visit today, we recorded the following information about you: Adonay Marquez LPN 10/19/2024 5:27 PM Signed Received orders from [facility]. Placed in provider's inbox for [...] Assessed Reason for Visit: Orders [681] Cmt: [facility] Prescriptions as of 10/19/2024 - metFORMIN (GLUCOPHAGE) [...] TEARS OPHTHALMIC) Use in eyes. - rutin/hesp/bioflav/C/h [id number] (BIOFLEX ORAL) Take 1 capsule by mouth [...] LOWER LEG [M25.569] 01/22/2007 VERTEBRAL FX NOS-CLOSED [[id number]] 03/24/2007 RESTLESS LEGS SYNDROME [G25.81] BONE AND CARTILAGE DIS NOS [M89.9, M94.9] PAIN IN LIMB [M79.609] 11/22/2008 Deformity of ankle and foot, acquired [M21.969] 11/22/2008 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, M21.6X9] 11/27/2008 Poliomyelitis osteopathy of multiple sites ([facility]*11/27/2008 Sleep apnea [G47.30] 04/15/2010 02/01/2019 Vitamin D Deficiency [E55.9] 04/15/2010 Osteopenia [M85.80] 04/15/2010 Incontinence [R32] 07/19/2012 Fracture of L1 vertebra ([facility]) [S32.019A] 06/02/2014 02/01/2019 Lumbar radiculopathy [M54.16] 06/03/2014 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 Obstructive sleep apnea on CPAP [G47.33] 07/14/2017 Rosacea [L71.9] 10/13/2017 Obesity, Class III, BMI 40-49.9 (morbid obesity*12/02/2017 Generalized weakness [R53.1] 07/29/2018 Shingles rash [B02.9] 07/29/2018 02/01/2019 Herpes zoster lesion [B02.8] 07/29/2018 02/01/2019 Epigastric pain [R10.13] 08/25/2018 11/24/2018 Encounter Status:Closed by ADONAY MARQUEZ on 10/19/24 [facility] Agustina 10-12-2024 PHAN Telephone (FPWADS) TENA CANNON ([id number]) 1940 F Date Time Provider Department 10/12/24 SAHRA GUY During your visit today, we recorded the following information about you: Mary BoucherJosephCris 10/12/2024 2:06 PM Signed Tena is calling Sahra Guy MD today with concern regarding PT Eval Physical therapy once a week for eight weeks. Patient has been identified by name and birthdate. Duration of symptoms: N/A Person calling: [facility] Physical therapy Closing statement: Results or non-symptom based questions: Thank you for calling [facility], your call will be returned within the next business day. Cris Hernandez Leonid Garcias APRN.ANTONY 10/12/2024 4:17 PM Signed Yes, please [...] TEARS OPHTHALMIC) Use in eyes. - rutin/hesp/bioflav/C/h fncoh156 (BIOFLEX ORAL) Take 1 capsule by mouth [...] LOWER LEG [M25.569] 01/22/2007 VERTEBRAL FX NOS-CLOSED [[id number]] 03/24/2007 RESTLESS LEGS SYNDROME [G25.81] BONE AND [...] syndrome [G (more content not included)... Normal [facility] Agustina 10-11-2024 CNPN Telephone (LINDY) TENA CANNON ([id number]) 1940 F Date Time Provider Department 10/11/24 SAHRA GUY During your visit today, we recorded the following information about you: Rachel Stacy 10/11/2024 1:14 PM Signed Jonathon from [facility] is calling for a verbal order [...] TEARS OPHTHALMIC) Use in eyes. - rutin/hesp/bioflav/C/h [id number] (BIOFLEX ORAL) Take 1 capsule by mouth [...] LOWER LEG [M25.569] 01/22/2007 VERTEBRAL FX NOS-CLOSED [[id number]] 03/24/2007 RESTLESS LEGS SYNDROME [G25.81] BONE AND [...] Encounter Status: (more content not included)... [facility] Tele[facility] (JULIANNAWAANA M) TENA CANNON ([id number]) 1940 F Date Time Provider Department 10/06/24 SAHRA GUY During your visit today, we recorded the following information about you: [place] Tete Boucher 10/06/2024 9:14 AM Signed Tena is calling [...] calling: self Call patient at: at home [phone] (home) [phone] (cell) Was an appointment scheduled: No Closing statement: Results or non-symptom based questions: Thank you for calling [facility], your call will be returned within the next business day. Tete Mora [facility] Sahra Guy MD 10/06/2024 10:41 AM Signed Generally speaking, physical therapy addresses lower extremity issue. Happy to initiate referral Therapy order placed. 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 Muscle strain of lower leg, unspecified laterality, initial encounter S86.911L CONSULT TO PHYSICAL THERAPY Fax to facility MD Aguilar Mitchell Lisa, LPN 10/06/2024 4:04 PM Signed Patient wanting an OT referral to educate and advise patient on ways not to fall in the bathroom. 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 Muscle strain of lower leg, unspecified laterality, initial encounter S86.919A CONSULT TO PHYSICAL THERAPY CONSULT TO SOCIAL MEDIA SR STRATEGY MANAGER 3. Falls frequently R29.6 CONSULT TO SOCIAL MEDIA SR STRATEGY MANAGER Please fax order , does she know which agency comes to her facility MD Aguilar Mitchell Lisa, LPN 10/10/2024 3:52 PM Signed Patient will call back with name of therapy that goes to her facility Ninfa Erwin, RN 10/11/2024 10:23 AM Signed Patient called and LVM on Nurse Triage line; [facility], phone number is [phone] Malika Sheikh LPN 10/11/2024 12:49 PM Signed [...] Fully Assessed Reason for Visit: Patient Question [1477] Cmt: Slipped in shower Primary Visit Diagnosis: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 Normal [facility] 09-23-2024 PHAN Telephone (LINDY) TENA CANNON ([id number]) 1940 F Date Time Provider Department 09/23/24 SAHRA GUY During your visit today, we recorded the following information about you: Malika Sheikh LPN 09/23/2024 10:07 AM Signed Received 09/23/2024 from [facility]. Placed in provider's inbox for review. Route to [place] for faxing. Allergies As of Date: 09/23/2024 [...] Reason for Visit: Received Outside Medical Records [3577] Cmt: [facility] Face to Face [...] TEARS OPHTHALMIC) Use in eyes. - rutin/hesp/bioflav/C/h [id number] (BIOFLEX ORAL) Take 1 capsule by mouth [...] LOWER LEG [M25.569] 01/22/2007 VERTEBRAL FX NOS-CLOSED [[id number]] 03/24/2007 RESTLESS LEGS SYNDROME [G25.81] BONE AND [...] [B02.8] 07/29/2018 (more content not included)... Normal [facility] CNOVon 09-16-2024 CNOV Office Visit (FPWADS ) TENA CANNON ([id number]) 1940 F Date Time Provider Department 09/16/24 [...] services describ (more content not included)... Normal [facility] Agustina 09-09-2024 PHAN Telephone (FPWADS) CANNONTENA Esquivel ([id number]) 1940 F Date Time Provider Department 09/09/24 SAHRA GUY During your visit today, we recorded the following information about you: Cris Rascon 09/09/2024 10:47 AM Signed Tena is calling Sahra Guy MD today with concern regarding Orders Patient is there to get Lab work. If you can please FAX lab orders to them. FAX [phone]. Patient has been identified by name and birthdate. Duration of symptoms: N/A Person calling: [facility] [place] Was an appointment scheduled: No Closing statement: Results or non-symptom based questions: Thank you for calling [facility], your call will be returned within the next business day. Sugey Cuevas 09/09/2024 10:57 AM Signed Patient called back regarding orders needed. Orders were faxed to : [facility] [phone] Allergies As of Date: 09/09/2024 Noted Allergy [...] TEARS OPHTHALMIC) Use in eyes. - rutin/hesp/bioflav/C/h [id number] (BIOFLEX ORAL) Take 1 capsule by mouth [...] LOWER LEG [M25.569] 01/22/2007 VERTEBRAL FX NOS-CLOSED [[id number]] 03/24/2007 RESTLESS LEGS SYNDROME [G25.81] BONE AND [...] [S32.019A] 06/02 (more content not included)... Normal [facility] METABOLIC PANE Kojo 09-09-2024 Albumin [Mass/Vol] 3.6 g/dL Normal 3.4-4.8 [facility] Comment on above: Performed By: #### L AB17, LAB18 #### Front Desk: JEAN PIERRE CA ([id number]) [facility] DAPHNIE [facility] ([facility] [address] [place] [address] ALP [Catalytic activity/Vol] 59 U/L Normal 40-150 [facility] Comment on above: Performed By: #### L AB17, LAB18 #### Front Desk: JEAN PIERRE CA ([id number]) [facility] (SW[facility]) [address] [place] [address] [place] ALT [Catalytic activity/Vol] 18 U/L Normal <30 [facility] Comment on above: Performed By: #### L AB17, LAB18 #### Front Desk: JEAN PIERRE CA ([id number]) [facility] (SWRL[facility]) [address] Anion gap [Moles/Vol] 2 mmol/L Low 3-13 [facility] Comment on above: Performed By: #### L AB17, LAB18 #### Front Desk: JEAN PIERRE CA ([id number]) [facility] ([facility]) [address] [place] [address] AST [Catalytic activity/Vol] 21 U/L Normal <34 [facility] Comment on above: Performed By: #### L AB17, LAB18 #### Front Desk: JEAN PIERRE CA ([id number]) [facility] ([facility]) [address] [place] [address] [place] Bilirubin [Mass/Vol] 0.5 mg/dL Normal <1.2 [facility] Comment on above: Performed By: #### L AB17, LAB18 #### Front Desk: JEAN PIERRE CA ([id number]) [facility] ([facility]) [address] [place] [address] [place] Calcium [Mass/Vol] 9.8 mg/dL Normal 8.8-10.0 [facility] Comment on above: Performed By: #### L AB17, LAB18 #### Front Desk: JEAN PIERRE CA ([id number]) [facility] FAGANDAPHNIE [facility]ITTMAN (SW[facility]) [address] [place] [address] [place] Chloride [Moles/Vol] 105 mmol/L Normal 98-107 [facility] Comment on above: Performed By: #### L AB17, LAB18 #### Front Desk: JEAN PIERRE CA ([id number]) [facility] ([facility]) [address] [place] [address] [place] CO2 [Moles/Vol] 31 mmol/L Normal 23-31 [facility] Comment on above: Performed By: #### L AB17, LAB18 #### Front Desk: JEAN PIERRE CA ([id number]) [facility] ([facility]) [address] [place] [address] [place] Creatinine [Mass/Vol] 0.56 mg/dL Low 0.57-1.11 [facility] Comment on above: Performed By: #### L AB17, LAB18 #### Front Desk: JEAN PIERRE CA ([id number]) [facility] ([facility]) [address] [place] [address] [place] GLOMERULAR FILTRATION RATE ML/MIN/1.73 SQ M.PREDICTED 89.0 mL/min/1.73m*2 Normal >60.0 [facility] Comment on above: Result Comment: Calc ulation based on the Chronic Kidney Disease Epidemiology Collaboration (CKD-EPI) equation refit without adjustment for race Performed By: #### L AB17, LAB18 #### Front Desk: JEAN PIERRE CA ([id number]) [facility] ([facility]) [address] [place] [address] [place] Glucose [Mass/Vol] 91 mg/dL Normal 82-115 [facility] Comment on above: Performed By: #### L AB17, LAB18 #### Front Desk: JEAN PIERRE CA ([id number]) [facility] ([facility]) [address] [place] [address] [place] Potassium [Moles/Vol] 4.1 mmol/L Normal 3.5-5.1 [facility] Comment on above: Result Comment: [facility] potassium values may be up to 0.5 mmol/L lower than serum values. Performed By: #### L AB17, LAB18 #### Front Desk: JEAN PIERRE CA ([id number]) [facility] ([facility]) [address] Protein [Mass/Vol] 6.7 g/dL Normal 6.4-8.3 [facility] Comment on above: Performed By: #### L AB17, LAB18 #### Front Desk: JEAN PIERRE CA ([id number]) [facility] CASTELLANOT[facility] ([facility]) [address] Sodium [Moles/Vol] 138 mmol/L Normal 136-145 [facility] Comment on above: Performed By: #### L AB17, LAB18 #### Front Desk: JEAN PIERRE CA ([id number]) [facility] ([facility]) [address] [place] [address] Urea nitrogen [Mass/Vol] 20 mg/dL Normal 9-23 [facility] Comment on above: Performed By: #### Safia AB17, LAB18 #### Front Desk: JEAN PIERRE CA ([id number]) [facility] ([facility]) [address] [place] [address] Comprehensive metabolic 1998 panelon 09-09-2024 Albumin [Mass/Vol] 3.6 g/dL 3.4 - 4.8 g/dL [facility] ALP [Catalytic activity/Vol] 59 U/L 40 - 150 U/L [facility] ALT [Catalytic activity/Vol] 18 U/L NINF - 30 U/L [facility] Anion gap [Moles/Vol] 2 mmol/L Low 3 - 13 mmol/L [facility] AST [Catalytic activity/Vol] 21 U/L NINF - 34 U/L [facility] Bilirubin [Mass/Vol] 0.5 mg/dL NINF - 1.2 mg/dL [facility] Calcium [Mass/Vol] 9.8 mg/dL 8.8 - 10. 0 mg/dL [facility] Chloride [Moles/Vol] 105 mmol/L 98 - 10 7 mmol/L [facility] CO2 [Moles/Vol] 31 mmol/L 23 - 31 mmol/L [facility] Creatinine [Mass/Vol] 0.56 mg/dL Low 0.57 - 1.11 mg/dL [facility] GFR/1.73 sq M.predicted (S/P/Bld) [Vol rate/Area] 89 mL/min - PINF [facility] Comment on above: Calculation based on the Chronic Kidney Disease Epidemiology Collaboration (CKD-EPI) equation refit without adjustment for race Glucose [Mass/Vol] 91 mg/dL 82 - 115 mg/dL [facility] Potassium [Moles/Vol] 4.1 mmol/L 3.5 - 5.1 mmol/L [facility] Comment on above: Plasma potassium caitlin ues may be up to 0.5 mmol/L lower than serum values. Protein [Mass/Vol] 6.7 g/dL 6.4 - 8.3 g/dL [facility] Sodium [Moles/Vol] 138 mmol/L 136 - 145 mmol/L [facility] Urea nitrogen [Mass/Vol] 20 mg/dL 9 - 23 mg/d L [facility] HEMOGLOBIN A1Con 09-09-2024 Glucose [Mass/Vol] 82 mg/dL Normal [facility] Comment on above: Result Comment: JOHN PAUL Luo COMMENTS: HbA1c values of 5.7-6.4 percent indicate an increased risk for developing diabetes mellitus. HbA1c values greater than or equal to 6.5 percent are diagnostic of diabetes mellitus. For diagnosis of diabetes in individuals without unequivocal hyperglycemia, results should be confirmed by repeat testing. Performed By: #### L AB90 #### Front Desk: JEAN PIERRE CA ([id number]) [facility] ([facility]) [address] [place] [address] HEMOGLOBIN A1C 4.5 %HbA1C Normal <5.7 [facility] Comment on above: Result Comment: Norm al less than 5.7% Prediabetes 5.7% to 6.4% Diabetes 6.5% or higher --HgbA1C levels may not be accurate in patients who have renal disease, received recent blood transfusions, are anemic, or who have dyshemoglobinemia. Performed By: #### L AB90 #### Front Desk: JEAN PIERRE CA ([id number]) [facility] [employer] ([facility]) [address] [place] [address] Hemoglobin A1con 09-09-2024 Average glucose Estimated from glycated hemoglobin (Bld) [Mass/Vol] 82 mg/dL [facility] HbA1c (Bld) [Mass fraction] 4.5 % NINF [facility] Comment on above: Normal less than [...] results should be confirmed by repeat testing. [facility] LIPID PANELon 09-09-2024 Cholesterol [Mass/Vol] 170 mg/dL Normal <200 [facility] Comment on above: Performed By: #### L AB17, LAB18 #### Front Desk: JEAN PIERRE CA ([id number]) [facility] ELLER [employer]TMAN ([facility]) [address] [place] [address] Cholesterol in HDL [Mass/Vol] 59 mg/dL Low >=60 [facility] Comment on above: Performed By: #### L AB17, LAB18 #### Front Desk: JEAN PIERRE CA ([id number]) [facility] DAPHNIE [employer]AN ([facility]) [address] [place] [address] Cholesterol.total/Choles terol in HDL [Mass ratio] 3 {ratio} Normal [facility] Comment on above: Result Comment: Ref Range: < 3 Low Risk for CHD 3-6 Mod Risk for CHD > 6 High Risk for CHD Performed By: #### L AB17, LAB18 #### Front Desk: JEAN PIERRE CA ([id number]) [facility] ([facility]) [address] [place] [address] LOW DENSITY LIPOPROTEIN 95 mg/dL Normal 0-<100 [facility] Comment on above: Performed By: #### L AB17, LAB18 #### Front Desk: JEAN PIERRE CA ([id number]) [facility] ([facility]) [address] [place] [address] [place] NON-HDL CHOLESTEROL, CALCULATED 111 Normal <130 [facility] Comment on above: Performed By: #### L AB17, LAB18 #### Front Desk: JEAN PIERRE CA ([id number]) [facility] ([facility]) [address] Triglyceride [Mass/Vol] 80 mg/dL Normal <150 [facility] Comment on above: Performed By: #### L AB17, LAB18 #### Front Desk: JEAN PIERRE CA ([id number]) [facility] ([facility]) [address] VERY LOW DENSITY LIPOPROTEIN, CALCULATED 16 mg/dL Normal <=30 [facility] Comment on above: Performed By: #### L AB17, LAB18 #### Front Desk: JEAN PIERRE CA ([id number]) [facility] ([facility]) [address] Lipid 1996 panelon 5 Cholesterol [Mass/Vol] 170 mg/dL NINF - 200 mg/dL [facility] Cholesterol in HDL [Mass/Vol] 59 mg/dL Low 60 - PINF mg/dL [facility] Cholesterol in LDL [Mass/Vol] 95 mg/dL 0 - <100 [facility] Cholesterol.total/Choles terol in HDL [Mass ratio] 3 {ratio} [facility] Comment on above: Ref Range: < 3 Low Risk for CHD 3-6 Mod Risk for CHD > 6 High Risk for CHD NON-HDL CHOLESTEROL, CALCULATED 111 NINF - 130 [facility] Triglyceride [Mass/Vol] 80 mg/dL NINF - 150 mg/dL [facility] VERY LOW DENSITY LIPOPROTEIN, CALCULATED 16 mg/dL [facility] - 30 mg/dL [facility] No Panel Informationon 09-09 Interpretation and review of laboratory results Abnormal [facility] CNPNon 09-02-2024 ANTONYN Telephone (FPWADS) TENA CANNON ([id number]) 1940 F Date Time Provider Department 09/02/24 SAHRA GUY During your visit today, we recorded the following information about you: Tete Melchor 09/02/2024 11:14 AM Signed Tena is a patient of Sahra Guy MD today LOBO Garcia called from the [facility] and stated the patient wants to find out her lab test results. Per Radha, the patient administers her own medications so it is fine to speak with the patient, please call her today. Patient has been identified by name and birthdate. Duration of symptoms: N/A Person calling: self Call patient at: on cell [phone] (home) [phone] (cell) Was an appointment scheduled: No Closing statement: Results or non-symptom based questions: Thank you for calling [facility], your call will be returned within the [...] TEARS OPHTHALMIC) Use in eyes. - rutin/hesp/bioflav/C/h [id number] (BIOFLEX ORAL) Take 1 capsule by mouth [...] LOWER LEG [M25.569] 01/22/2007 VERTEBRAL FX NOS-CLOSED [[id number]] 03/24/2007 RESTLESS LEGS SYNDROME [G25.81] BONE AND CARTILAGE DIS NOS [M89.9, M94.9] PAIN IN LIMB [M79.609] 11/22/2008 Deformity of ankle and foot, acquired [M21.969] 11/22/2008 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, M21.6X9] 11/27/2008 Poliomyelitis osteopathy of multiple sites (HCC*11/27/2008 Sleep apnea [G47.30] 04/15/2010 02/01/2019 Vitamin D Deficiency [E55.9] 04/15/2010 Osteopenia [M85.80] 04/15/2010 Inco (more content not included)... Normal [facility] Agustina 09-01-2024 CNPN Telephone (LINDY) TENA CANNON ([id number]) 1940 F Date Time Provider Department 09/01/24 SAHRA GUY During your visit today, we recorded the following information about you: Sugey Stover 09/01/2024 1:23 PM Signed Rachel with [facility] is calling Sahra Guy MD today to request this month's Office visit Notes. Faxed to Rachel at fax number [phone] Allergies As of Date: 09/01/2024 Noted Allergy [...] TEARS OPHTHALMIC) Use in eyes. - rutin/hesp/bioflav/C/h [id number] (BIOFLEX ORAL) Take 1 capsule by mouth [...] LOWER LEG [M25.569] 01/22/2007 VERTEBRAL FX NOS-CLOSED [[id number]] 03/24/2007 RESTLESS LEGS SYNDROME [G25.81] BONE AND CARTILAGE DIS NOS [M89.9, M94.9] PAIN IN LIMB [M79.609] 11/22/2008 Deformity of ankle and foot, acquired [M21.969] 11/22/2008 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, M21.6X9] 11/27/2008 Poliomyelitis osteopathy of multiple sites ([facility]*11/27/2008 Sleep apnea [G47.30] 04/15/2010 02/01/2019 Vitamin D Deficiency [E55.9] 04/15/2010 Osteopenia [M85.80] 04/15/2010 Incontinence [R32] 07/19/2012 Fracture of L1 vertebra ([facility]) [S32.019A] 06/02/2014 02/01/2019 Lumbar radiculopathy [M54.16] 06/03/2014 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 [phone] Adonay Marquez LPN 09/02/2024 4:02 PM Signed Called and informed pt of pcp interpretation and recommendation. Pt would like to schedule a follow up and have a repeat lab draw in the office. Please assist pt with scheduling Sahra Guy MD 09/05/2024 10:04 AM Signed We can see her any time and do the repeat lab . Sahra Guy MD Nona Sizerock 09/06/2024 11:37 AM Signed Called and scheduled pt f/u. She wanted PCP to have results prior to appt so she is getting lab drawn in [place]. Allergies As of Date: 09/01/2024 Noted Allergy [...] TEARS OPHTHALMIC) Use in eyes. - rutin/hesp/bioflav/C/h pyels691 (BIOFLEX ORAL) Take 1 capsule by mouth [...] LOWER LEG [M25.569] 01/22/2007 VERTEBRAL FX NOS-CLOSED [[id number]] 03/24/2007 RESTLESS LEGS SYNDROME [G25.81] BONE AND CARTILAGE DIS NOS [M89.9, M94.9] PAIN IN LIMB [M79.609] 11/22/2008 Deformity of ankle (more content not included)... Normal [facility] TE[facility] CANNON ([id number]) 1940 F Date Time Provider Department 08/31/24 [...] calling: self Call patient at: at home [phone] (home) [phone] (cell) Was an appointment scheduled: No Closing statement: Results or non-symptom based questions: Thank you for calling [facility], your call will be returned within the next business day. Tete Mora Pss Sahra Guy MD 09/01/2024 12:06 PM Signed No results [...] tests Order(s):LIPID PANEL BASIC [SQLIPB] Order #: [id number] HBA1C (OUTSIDE) [[id number]] Order #: [id number] COMPLETE BLOOD COUNT AND DIFFERENTIAL [SQCBCDIF] Order #: [id number] Prescriptions as of 11/12/2024 - metFORMIN (GLUCOPHAGE) [...] LOWER LEG [M25.569] 01/22/2007 VERTEBRAL FX NOS-CLOSED [[id number]] 03/24/2007 RESTLESS LEGS SYNDROME [G25.81] BONE AND CARTILAGE DIS NOS [M89.9, M94.9] PAIN IN LIMB [M79.609] 11/22/2008 Deformity of ankle and foot, acquired [M21.969] 11/22/2008 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, M21.6X9] 11/02 (more content not included)... Normal [facility] CBC W Auto Differential pane l (Bld)on 08-26-2024 Basophils/100 WBC (Bld) 0.6 % C [facility] CD59 deficient monocytes/100 cells (Bld) 14.2 Abnormal [facility] EOSINOPHILS,ABSOLUTE 0.[address] [facility] Eosinophils/100 WBC (Bld) 2.6 % [facility] Erythrocyte distribution width (RBC) [Ratio] 12.9 % 11.5 - 14.5 % [facility] Hematocrit (Bld) [Volume fraction] 35.8 % Abnormal 37 - 47 % [facility] Hemoglobin (Bld) [Mass/Vol] 12.3 g/dL [facility] Lymphocytes (Bld) [#/Vol] 1.6 10*3/uL [facility] Lymphocytes/100 WBC (Bld) 33 % [facility] MCH (RBC) [Entitic mass] 32.6 pG 27 - 34 pG [facility] MCHC 34.4 % 32 - 36 % [facility] MCV (RBC) [Entitic vol] 94.8 fL 80 - 100 fL [facility] Monocytes (Bld) [#/Vol] 0.7 10*3/uL [facility] NEUTROPHILS ABSOLUTE 2.[address] [facility] Neutrophils/100 WBC (Bld) 49.6 % [facility] Nucleated RBC (Bld) [#/Vol] 0.2 10*3/uL [facility] Platelet mean volume (Bld) [Entitic vol] 10 % 7.3 - 11.1 % [facility] Platelets (Bld) [#/Vol] 164 10*3/uL [facility] RBC (Bld) [#/Vol] 3.77 10*6/uL Abnormal [facility] WBC (Bld) [#/Vol] 5 10*3/uL 4.0 - 11.0 K/uL [facility] HBA1C (OUTSIDE)on 08-26-2024 HbA1c (Bld) [Mass fraction] 4.7 % [facility] Lipid 1996 panelon Cholesterol [Mass/Vol] 162 mg/dL - 199 mg/dL [facility] Cholesterol in HDL [Mass/Vol] 7 mg/dL Critically low [facility] Cholesterol in LDL [Mass/Vol] 127 mg/dL [facility] LDL/HDL RATIO 18.1 [facility] Triglyceride [Mass/Vol] 140 mg/dL [facility] VLDL Cholesterol 28 [facility] No Panel Informationon 08-26 Interpretation and review of laboratory results Abnormal [facility] CNPNon 08-24-2024 ANTONYN Telephone (LINDY) TENA CANNON ([id number]) 1940 F Date Time Provider Department 08/24/24 SAHRA GUY During your visit today, we recorded the following information about you: Adonay Marquez LPN 08/24/2024 10:26 AM Signed Received orders from [facility]. Placed in provider's inbox for review. Route to [place] fax Allergies As of Date: 08/24/2024 Noted [...] Assessed Reason for Visit: Orders [681] Cmt: [facility], [facility] Prescriptions as of 08/24/2024 - metFORMIN (GLUCOPHAGE) [...] TEARS OPHTHALMIC) Use in eyes. - rutin/hesp/bioflav/C/h [id number] (BIOFLEX ORAL) Take 1 capsule by mouth [...] LOWER LEG [M25.569] 01/22/2007 VERTEBRAL FX NOS-CLOSED [[id number]] 03/24/2007 RESTLESS LEGS SYNDROME [G25.81] BONE AND CARTILAGE DIS NOS [M89.9, M94.9] PAIN IN LIMB [M79.609] 11/22/2008 Deformity of ankle and foot, acquired [M21.969] 11/22/2008 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, M21.6X9] 11/27/2008 Poliomyelitis osteopathy of multiple sites (HCC*11/27/2008 Sleep apnea [G47.30] 04/15/2010 02/01/2019 Vitamin D Deficiency [E55.9] 04/15/2010 Osteopenia [M85.80] 04/15/2010 Incontinence [R32] 07/19/2012 Fracture of L1 vertebra ([facility]) [S32.019A] 06/02/2014 02/01/2019 Lumbar radiculopathy [M54.16] 06/03/2014 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] directive, such as health care power of erisa attorney or living will? yes Would you [...] area. Assessment/Plan Medicare annual wellness visit, subsequent (Z) - Fall avoidance information provided - Personalized prevention plan provided (Z) Medicare annual wellness visit, subsequent (primary encounter diagnosis) Comment: 83 year old generally healthy female here for medicare visit Plan: As below (E66.01) Obesity, Class III, BMI 40-49.9 (morbid obesity) ([facility]) Comment: Stable. In need of refill Plan: [...] multiple thuy (more content not included)... Normal [facility]ustina [facility] TENA CANNON ([id number]) 1940 F Date Time Provider Department 08/22/24 SAHRA GUY FAMPTW During your visit today, we recorded the following information about you: Norma Long 08/22/2024 11:10 AM Signed Tena is calling Sahra Guy MD today is now using [employer] with a new insurance company( using the [...] calling: self Call patient at: at home [phone] (home) [phone] (cell) Was an appointment scheduled: Yes: Date/Time: 08/23/[address] Guy Closing statement: Results or non-symptom based questions: Thank you for calling [facility], your call will be returned within the next business day. Norma [facility] Adonay Marquez LPN 08/22/2024 3:37 PM Signed [...] fill all Rx's that apply per patient [employer] mail order Prescriptions as of 08/22/2024 - [...] LOWER LEG [M25.569] 01/22/2007 VERTEBRAL FX NOS-CLOSED [[id number]] 03/24/2007 RESTLESS LEGS SYNDROME [G25.81] BONE AND CARTILAGE DIS NOS [M89.9, M94.9] PAIN IN LIMB [M79.609] 11/22/2008 Deformity of ankle and foot, acquired [M21.969] 11/22/2008 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, M21.6X9] 11/27/2008 Poliomyelitis osteopathy of multiple sites ( (more content not included)... Normal [facility] 08-15-2024 [facility] TENA CANNON ([id number]) 1940 F Date Time Provider Department 08/15/24 SAHRA GUY COLTON During your visit today, we recorded the [...] flag will happen. Please call Rachel at [phone] Leonid Leal APRN.CNP 08/15/2024 3:01 PM Signed Please clarify what [...] seen for pulled muscle/sciatic pain. Spoke with Rachel, Rachel states the provider who had face to [...] change your name." Copied and pasted from [email or web address] [email or web address]-[email or web address] [email or web address] Please advise. Alicia Sultana 08/17/2024 9:25 AM Signed Rachel from [employer] calling back and states that since patient is scheduled with Dr. Guy on 08/23 they will be able to use his name as a certifying provider. [facility] asking for a verbal order from Dr. Guy. Please return call to [phone] Leonid Leal APRN.CNP 08/17/2024 10:49 AM Signed Yes, please give verbal order on behalf of SUSANNA Rangel Lisa, LPN 08/17/2024 10:59 AM Signed Verbal order [...] in the (more content not included)... Normal [facility] CNOVon 08-11-2024 CNOV Office Visit (FPWAANA M ) TENA CANNON ([id number]) 1940 F Date Time Provider Department 08/11/24 1:20 PM LEONID LEAL During your visit today, we recorded the following information about you: Pulse Blood pressure 66/minute 146/77 Leonid Leal, AFRICAN STUDIES PROFESSOR.ENVIRONMENTAL SOLUTIONS ENGINEER 08/11/2024 3:02 PM Signed This note was created using [employer]iP[employer]. Subjective Tenaalvin Cannon is a 83 year old female. [...] 03/30/2013 normal exam EGD 03/30/2013 hiatal hernia, ClaytonMarshall Grade III reflux esophagitis, gastric polyps EGD [...] Keflex [Cephalexin], Vioxx [Rofecoxib], Novocain [Procaine Hcl], [place]-3 Fish Oil [[place]-3 Fatty Acids-Vitamin E], Advil [Ibuprofen], and Asa [...] (LIQUID TEARS OPHTHALMIC) Use in eyes. rutin/hesp/bioflav/C/h [id number] (BIOFLEX ORAL) Take 1 capsule by mouth twice daily. CPAP BipaP @ 14/9 cm of water with humidification, removable water dispenser (for cleaning) . Mask (small/ per patient preference) , filters, tubing, humidifier and lifetime supplies. (G47.33, Z99.89) Obstructive sleep apnea on CPAP cyclopentolate (CYCLOGYL) (more content not included)... Normal [facility] Agustina [facility]-11-2024 [facility]LINDY [facility] TENA CANNON ([id number]) 1940 F Date Time Provider Department 08/11/24 [...] calling: self Call patient at: at home [phone] (home) [phone] (cell) Was an appointment scheduled: No Closing statement: Symptom Call: Thank you for calling [facility], your call is very important. A nurse [...] Denies 11. : N/a Protocols used: Back [id number] Allergies As of Date: 08/11/2024 Noted Allergy [...] TEARS OPHTHALMIC) Use in eyes. - rutin/hesp/bioflav/C/h [id number] (BIOFLEX ORAL) Take 1 capsule by mouth twice daily. - CPAP BipaP @ 14/9 cm of water with humidification, removable water dispenser (for cleaning) . Mask (small/ per patient preference) , filters, tubing, humidifier and lifetime supplies. (G47.33, Z99.89) Obstructive sleep apnea on CPAP - cyclopentola (more content not included)... Normal [facility] Agustina 06-23-2024 PHAN Telephone (LINDY) TENA CANNON ([id number]) 1940 F Date Time Provider Department 06/23/24 SAHRA GUY During your visit today, we recorded the following information about you: Adonay Marquez LPN 06/23/2024 3:19 PM Signed Received DNR order from [employer]. Placed in provider's inbox for review. Route to [place] fax Allergies As of Date: 06/23/2024 Noted [...] Assessed Reason for Visit: Orders [681] [facility] Prescriptions as of 06/23/2024 - oxybutynin ER [...] LOWER LEG [M25.569] 01/22/2007 VERTEBRAL FX NOS-CLOSED [[id number]] 03/24/2007 RESTLESS LEGS SYNDROME [G25.81] BONE AND [...] Encounter Status:Closed by ADONAY MARQUEZ on 06/23/24 [facility] 06-02-2024 CNPN Telephone (FPWADS) TENA CANNON ([id number]) 1940 F Date Time Provider Department 06/02/24 [...] calling: self Call patient at: at home [phone] (home) [phone] (cell) Was an appointment scheduled: No Closing statement: Results or non-symptom based questions: Thank you for calling [facility], your call will be returned within the [...] TEARS OPHTHALMIC) Use in eyes. - rutin/hesp/bioflav/C/h [id number] (BIOFLEX ORAL) Take 1 capsule by mouth [...] LOWER LEG [M25.569] 01/22/2007 VERTEBRAL FX NOS-CLOSED [[id number]] 03/24/2007 RESTLESS LEGS SYNDROME [G25.81] BONE AND CARTILAGE DIS NOS [M89.9, M94.9] PAIN IN LIMB [M79.609] 11/22/2008 Deformity of ankle and foot, acquired [M21.969] 11/22/2008 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, M21.6X9] 11/27/2008 Poliomyelitis osteopathy of multiple sites (HCC*11/27/2008 Sleep apnea [G47.30] 04/15/2010 02/01/2019 Vitamin D Deficiency [E55.9] 04/15/2010 Osteopenia [M85.80] 04/15/2010 Incontinence [R32] 07/19/2012 Fracture of L1 verte (more content not included)... Normal [facility] Telephone (FAMPST) CANNON,TENA M ([id number]) 1940 F Date Time Provider Department 06/02/24 SAHRA GUY During your visit today, we recorded the following information about you: Melissa Monroe Norma 06/02/2024 2:18 PM Signed Tena is calling Sahra Guy MD today to request patient medication list be mailed to her please . The address has been verified Patient has been identified by name and birthdate. Person calling: self Call patient at: at home [phone] (home) [phone] (cell) Was an appointment scheduled: No Closing statement: Results or non-symptom based questions: Thank you for calling [facility], your call will be returned within the next business day. Norma [facility] Malika Sheikh LPN 06/03/2024 8:36 AM Signed [...] Fully Assessed Reason for Visit: Patient Question [[id number]] Prescriptions as of 06/03/2024 - esomeprazole (NEXIUM) [...] TEARS OPHTHALMIC) Use in eyes. - rutin/hesp/bioflav/C/h asknq605 (BIOFLEX ORAL) Take 1 capsule by mouth [...] LOWER LEG [M25.569] 01/22/2007 VERTEBRAL FX NOS-CLOSED [[id number]] 03/24/2007 RESTLESS LEGS SYNDROME [G25.81] BONE AND CARTILAGE DIS NOS [M89.9, M94.9] PAIN IN LIMB [M79.609] 11/22/2008 Deformity of ankle and foot, acquired [M21.969] 11/22/2008 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, M21.6X9] 11/27/2008 Poliomyelitis osteopathy of multiple sites (HCC*11/27/2008 Sleep apnea [G47.30] 04/15/2010 02/01/2019 Vitamin D Deficiency [E55.9] 04/15/2010 Osteopenia [M85.80] 04/15/2010 Incontinence [R32] 07/19/2012 Fracture of L1 vertebra ([facility]) [S32.019A] 06/02/2014 02/01/2019 Lumbar radiculopathy [M54.16] 06/03/2014 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 Normal [facility] Agustina 05-18-2024 ANTONYN Telephone (FPWAANA M) TENA CANNON ([id number]) 1940 F Date Time Provider Department 05/18/24 [...] doctor since December. Please advise her at [phone] Adonya Marquez LPN 05/18/2024 11:53 AM Signed RSV [...] TEARS OPHTHALMIC) Use in eyes. - rutin/hesp/bioflav/C/h [id number] (BIOFLEX ORAL) Take 1 capsule by mouth [...] LOWER LEG [M25.569] 01/22/2007 VERTEBRAL FX NOS-CLOSED [[id number]] 03/24/2007 RESTLESS LEGS SYNDROME [G25.81] BONE AND CARTILAGE DIS NOS [M89.9, M94.9] PAIN IN LIMB [M79.609] 11/22/2008 Deformity of ankle and foot, acquired [M21.969] 11/22/2008 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, M21.6X9] 11/27/2008 Poliomyelitis osteopathy of multiple sites (HCC*11/27/2008 Sleep apnea [G47.30] 04/15/2010 02/01/2019 Vitamin D Deficiency [E55.9] 04/15/2010 Osteopenia [M85.80] 04/15/2010 Incontinence [R32] 07/19/2012 Fracture of L1 vertebra ([facility]) [S32.019A] 06/02/2014 02/01/2019 Lumbar radiculopathy [M54.16] 06/03/2014 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 Normal [facility] 25-hydroxyvitamin D3 [Mass/V ol]on 03-03-2024 Interpretation and review of laboratory results Normal [facility] Therapy is based on measurement of Total 25-OHD with the following classification levels: Less than 20 ng/mL: Indicative of Vit D deficiency 20-30 ng/mL: Suggests Vit D insufficiency Optimal: Greater than or equal to 30 ng/mL Test performed by [email or web address] Competitive Immunoassay, measuring Total Vitamin D, not individual fractions. [facility] CBC (HEMOGRAM)on 03-03-2024 Erythrocyte distribution width (RBC) [Ratio] 12.3 % Normal 11.5-15.0 [facility] Comment on above: Performed By: #### L AB294 #### Front Desk: JEAN PIERRE CA ([id number]) [employer] [employer] (SWRLAB) [address] [place] [address] Hematocrit (Bld) [Volume fraction] 40.5 % Normal 35.0-47.0 [facility] Comment on above: Performed By: #### L AB294 #### Front Desk: JEAN PIERRE CA ([id number]) [facility] ([facility]) [address] [place] [address] Hemoglobin (Bld) [Mass/Vol] 14.1 g/dL Normal 11.7-16.0 [facility] Comment on above: Performed By: #### L AB294 #### Front Desk: JEAN PIERRE CA ([id number]) [facility] ([facility]) [address] [place] [address] MCH (RBC) [Entitic mass] 31.7 pg Normal 26.0-34.0 [facility] Comment on above: Performed By: #### L AB294 #### Front Desk: JEAN PIERRE CA ([id number]) [facility] ([facility]) [address] [place] [address] MCHC 34.8 % Normal 30.5-36.0 [facility] Comment on above: Performed By: #### L AB294 #### Front Desk: JEAN PIERRE CA ([id number]) [facility] ([facility]) [address] [place] [address] MCV (RBC) [Entitic vol] 91.0 fL Normal 77.0-99.0 [facility] Comment on above: Performed By: #### L AB294 #### Front Desk: JEAN PIERRE CA ([id number]) [facility] ([facility]) [address] [place] [address] Platelet mean volume (Bld) [Entitic vol] 11.2 fL Normal 9.0-12.7 [facility] Comment on above: Result Comment: MPV is a calculated measurement using platelet volume ratio Performed By: #### L AB294 #### Front Desk: JEAN PIERRE CA ([id number]) [facility] ([facility]) [address] [place] [address] Platelets (Bld) [#/Vol] 177 10*3/uL Normal 140-440 [facility] Comment on above: Performed By: #### L AB294 #### Front Desk: JEAN PIERRE CA ([id number]) [facility] ([facility]) [address] [place] [address] RBC (Bld) [#/Vol] 4.45 10*6/uL Normal 3.80-5.20 [facility] Comment on above: Performed By: #### L AB294 #### Front Desk: JEAN PIERRE CA ([id number]) [facility] ([facility]) [address] [place] [address] WBC (Bld) [#/Vol] 3.7 10*3/uL Normal 3.6-10.7 [facility] Comment on above: Performed By: #### L AB294 #### Front Desk: JEAN PIERRE CA ([id number]) [facility] ([facility]) [address] [place] [address] CBC panel Auto (Bld)on 03-03 Erythrocyte distribution width (RBC) [Ratio] 12.3 % 11.5 - 15.0 % [facility] Hematocrit (Bld) [Volume fraction] 40.5 % 35.0 - 47.0 % [facility] Hemoglobin (Bld) [Mass/Vol] 14.1 g/dL 11.7 - 16.0 g/dL [facility] Interpretation and review of laboratory results Normal [facility] MCH (RBC) [Entitic mass] 31.7 pg 26. 0 - 34.0 pg [facility] MCHC (RBC) [Mass/Vol] 34.8 % 30.5 - 36.0 % [facility] MCV (RBC) [Entitic vol] 91 fL 77.0 - 99.0 fL [facility] Platelet mean volume (Bld) [Entitic vol] 11.2 fL 9.0 - 12.7 fL [facility] Comment on above: MPV is a calculated measurement using platelet volume ratio Platelets (Bld) [#/Vol] 177 10*3/uL 140 - 440 10*3/uL [facility] RBC (Bld) [#/Vol] 4.45 10*6/uL 3.80 - 5.2 0 10*6/uL [facility] WBC (Bld) [#/Vol] 3.7 10*3/uL 3.6 - 10.7 10*3/uL [facility] COMPREHENSIVE METABOLIC PANE Kojo 03-03-2024 Albumin [Mass/Vol] 4.1 g/dL Normal 3.5-5.0 [facility] Comment on above: Performed By: #### Safia AB17, LAB18 #### Front Desk: JEAN PIERRE CA ([id number]) [facility]DAPH[facility] (SWRLAB) [address] ALP [Catalytic activity/Vol] 69 U/L Normal 38-126 [facility] Comment on above: Performed By: #### Safia AB17, LAB18 #### Front Desk: JEAN PIERRE CA ([id number]) [facility] (SWRL[facility]) [address] ALT [Catalytic activity/Vol] 18 U/L Normal 0-34 [facility] Comment on above: Performed By: #### Safia AB17, LAB18 #### Front Desk: JEAN PIERRE CA ([id number]) [facility] D[facility] (SWRLAB) [address] Anion gap [Moles/Vol] 7 mmol/L Normal 3-13 [facility] Comment on above: Performed By: #### L AB17, LAB18 #### Front Desk: JEAN PIERRE CA ([id number]) [facility] D[facility] (SWRLAB) [address] [place] [address] [place] AST [Catalytic activity/Vol] 25 U/L Normal 15-46 [facility] Comment on above: Performed By: #### Safia [place]17, LAB18 #### Front Desk: JEAN PIERRE CA ([id number]) [facility] (SWRLAB) [address] [place] [address] [place] Bilirubin [Mass/Vol] 0.6 mg/dL Normal 0.2-1.3 [facility] Comment on above: Performed By: #### Safia AB17, LAB18 #### Front Desk: JEAN PIERRE CA ([id number]) [facility] [address] Calcium [Mass/Vol] 9.8 mg/dL Normal 8.4-10.4 [facility] Comment on above: Performed By: #### Safia ORTIZ, LAB18 #### Front Desk: JEAN PIERRE CA ([id number]) [facility] ([facility]) [address] [place] [address] [place] Chloride [Moles/Vol] 102 mmol/L Normal 98-107 [facility] Comment on above: Performed By: #### L AB17, LAB18 #### Front Desk: JEAN PIERRE CA ([id number]) [facility] ([facility] [address] [place] [address] [place] CO2 [Moles/Vol] 31 mmol/L High 22-30 [facility] Comment on above: Performed By: #### L AB17, LAB18 #### Front Desk: JEAN PIERRE CA ([id number]) [facility] [address] [place] [address] [place] Creatinine [Mass/Vol] 0.45 mg/dL Low 0.52-1.04 [facility] Comment on above: Performed By: #### L AB17, LAB18 #### Front Desk: JEAN PIERRE CA ([phone]) [facility]) [address] GLOMERULAR FILTRATION RATE ML/MIN/1.73 SQ M.PREDICTED >90.0 Normal >60.0 [facility] Comment on above: Result Comment: Calc ulation based on the Chronic Kidney Disease Epidemiology Collaboration (CKD-EPI) equation refit without adjustment for race Performed By: #### Safia WHITFIELD17, LAB18 #### Front Desk: JEAN PIERRE CA ([id number]) [facility] [address] [place] [address] [place] Glucose [Mass/Vol] 87 mg/dL Normal 70-100 [facility] Comment on above: Performed By: #### Safia ORTIZ, LAB18 #### Front Desk: JEAN PIERRE CA ([id number]) [facility] ([facility]) [address] [place] [address] [place] Potassium [Moles/Vol] 4.2 mmol/L Normal 3.5-5.1 [facility] Comment on above: Performed By: #### Safia WHITFIELD17, LAB18 #### Front Desk: JEAN PIERRE CA ([id number]) [facility] ([facility]) [address] [place] [address] [place] Protein [Mass/Vol] 7.1 g/dL Normal 6.3-8.2 [facility] Comment on above: Performed By: #### Safia AB17, LAB18 #### Front Desk: JEAN PIERRE CA ([id number]) [facility]) [address] [place] [address] [place] Sodium [Moles/Vol] 140 mmol/L Normal 135-145 [facility] Comment on above: Performed By: #### L AB17, LAB18 #### Front Desk: JEAN PIERRE CA ([id number]) [facility] ([facility]) [address] [place] [address] [place] Urea nitrogen [Mass/Vol] 15 mg/dL Normal 7-17 [facility] Comment on above: Performed By: #### L AB17, LAB18 #### Front Desk: JEAN PIERRE CA ([id number]) [facility] DAPHNIE FORTE (SWRLAB) [address] [place] [address] Comprehensive metabolic 1998 panelon 03-03-2024 Albumin [Mass/Vol] 4.1 g/dL 3.5 - 5.0 g/dL [facility] ALP [Catalytic activity/Vol] 69 U/L 38 - 126 U/L [facility] ALT [Catalytic activity/Vol] 18 U/L 0 - 34 U/L [facility] Anion gap [Moles/Vol] 7 mmol/L 3 - 13 mmol/L [facility] AST [Catalytic activity/Vol] 25 U/L 15 - 46 U/L [facility] Bilirubin [Mass/Vol] 0.6 mg/dL 0.2 - 1 .3 mg/dL [facility] Calcium [Mass/Vol] 9.8 mg/dL 8.4 - 10. 4 mg/dL [facility] Chloride [Moles/Vol] 102 mmol/L 98 - 10 7 mmol/L [facility] CO2 [Moles/Vol] 31 mmol/L High 22 - 30 mmol/L [facility] Creatinine [Mass/Vol] 0.45 mg/dL Low 0.52 - 1.04 mg/dL [facility] GFR/1.73 sq M.predicted (S/P/Bld) [Vol rate/Area] - PINF [facility] Comment on above: Calculation based on the Chronic Kidney Disease Epidemiology Collaboration (CKD-EPI) equation refit without adjustment for race Glucose [Mass/Vol] 87 mg/dL 70 - 100 mg/dL [facility] Potassium [Moles/Vol] 4.2 mmol/L 3.5 - 5.1 mmol/L [facility] Protein [Mass/Vol] 7.1 g/dL 6.3 - 8.2 g/dL [facility] Sodium [Moles/Vol] 140 mmol/L 135 - 145 mmol/L [facility] Urea nitrogen [Mass/Vol] 15 mg/dL 7 - 17 mg/d L [facility] HEMOGLOBIN A1Con 03-03-2024 Glucose [Mass/Vol] 85 mg/dL Normal [facility] Comment on above: Performed By: #### L AB90 #### Front Desk: JEAN PIERRE CA ([id number]) [facility] [address] [place] [address] HbA1c (Bld) [Mass fraction] 4.6 % Normal <5.7 [facility] Comment on above: Result Comment: Norm al less than 5.7% Prediabetes 5.7% to 6.4% Diabetes 6.5% or higher --HgbA1C levels may not be accurate in patients who have renal disease, received recent blood transfusions, are anemic, or who have dyshemoglobinemia. Performed By: #### L AB90 #### Front Desk: JEAN PIERRE CA ([id number]) [facility] ([facility]) [address] [place] [address] Hemoglobin A1con 03-03-2024 Average glucose Estimated from glycated hemoglobin (Bld) [Mass/Vol] 85 mg/dL [facility] HbA1c (Bld) [Mass fraction] 4.6 % NINF - 5.7 % [facility] Comment on above: Normal less than 5.7 % Prediabetes 5.7% to 6.4% Diabetes 6.5% or higher --HgbA1C levels may not be accurate in patients who have renal disease, received recent blood transfusions, are anemic, or who have dyshemoglobinemia. [facility] LIPID PANELon 03-03-2024 Cholesterol [Mass/Vol] 182 mg/dL Normal <200 [facility] Comment on above: Performed By: #### L AB17, LAB18 #### Front Desk: JEAN PIERRE CA ([id number]) [facility] ([facility]) [address] [place] [address] [place] Cholesterol in HDL [Mass/Vol] 69 mg/dL High 40-60 [facility] Comment on above: Performed By: #### L AB17, LAB18 #### Front Desk: JEAN PIERRE CA ([id number]) [facility] ([facility]) [address] [place] [address] Cholesterol.total/Choles terol in HDL [Mass ratio] 3 {ratio} Normal [facility] Comment on above: Result Comment: Ref Range: < 3 Low Risk for CHD 3-6 Mod Risk for CHD > 6 High Risk for CHD Performed By: #### L AB17, LAB18 #### Front Desk: JEAN PIERRE CA ([id number]) [facility] ([facility]) [address] LOW DENSITY LIPOPROTEIN 92 mg/dL Normal 0-<100 [facility] Comment on above: Performed By: #### L AB17, LAB18 #### Front Desk: JEAN PIERRE CA ([id number]) [facility] ([facility]) [address] Triglyceride [Mass/Vol] 107 mg/dL Normal <150 [facility] Comment on above: Performed By: #### L AB17, LAB18 #### Front Desk: JEAN PIERRE CA ([id number]) [facility] ([facility]) [address] [place] [address] Lipid 1996 panelon Cholesterol [Mass/Vol] 182 mg/dL NINF - 200 mg/dL [facility] Cholesterol in HDL [Mass/Vol] 69 mg/dL High 40 - 60 mg/dL [facility] Cholesterol in LDL [Mass/Vol] 92 mg/dL 0 - <100 [facility] Cholesterol.total/Choles terol in HDL [Mass ratio] 3 {ratio} [facility] Comment on above: Ref Range: < 3 Low Risk for CHD 3-6 Mod Risk for CHD > 6 High Risk for CHD Triglyceride [Mass/Vol] 107 mg/dL NINF - 150 mg/dL [facility] No Panel Informationon 03-03 Interpretation and review of laboratory results Abnormal [facility] VITAMIN D DEFICIENCY SCREENI NG (VIT D 25)on 03-03-2024 VIT D 25-OH, TOTAL 65 ng/mL Normal 30-100 [facility] Comment on above: Result Comment: JOHN PAUL Luo COMMENTS: Therapy is based on measurement of Total 25-OHD with the following classification levels: Less than 20 ng/mL: Indicative of Vit D deficiency 20-30 ng/mL: Suggests Vit D insufficiency Optimal: Greater than or equal to 30 ng/mL Test performed by [email or web address] Competitive Immunoassay, measuring Total Vitamin D, not individual fractions. Performed By: #### L [id number] #### Front Desk: MAT HOLLIDAY ([id number]) [facility] (SBHL[facility]) [address] Vitamin D Deficiency Screeni ng (Vit D 25)on 03-03-2024 25-hydroxyvitamin D3 [Mass/Vol] 65 ng/mL 30 - 100 ng/mL [facility] Surgical Tissue Examon 09-07 Surgical Tissue Exam Test performed at [place] [address] NAME: TENA CANNON REQUESTING: MARBELLA BRUNSON M.D. [...] of immunohistochemical tests have been determined by [facility]'s Department of Pathology and Laboratory Medicine in a manner consistent with CLIA requirements. One or more of these tests have not been cleared or approved by the FDA. [facility] is regulated under CLIA as qualified to [...] PRINTED: 09/09/2018 Page 1 of 1 Normal [facility] Comment on above: Performed By: #### S URG #### [place] [address] Hemogramon 08-05-2018 Erythrocyte distribution width Auto Ratio (RBC) 13.7 % Normal 11.5-14.5 [facility] Comment on above: Performed By: #### H EMOG ####[facility] [place] [address] Hematocrit Auto Volume Fraction (Bld) 40.1 % Normal 35.0-47.0 [facility] Comment on above: Performed By: #### H EMOG ####[facility] [place] [address] Hemoglobin mass conc (Bld) 13.0 g/dL Normal 11.7-16.0 [facility] Comment on above: Performed By: #### H EMOG ####[facility] [place] [address] MCH Auto Entitic mass (RBC) 29.0 pg Normal 26.0-34.0 [facility] Comment on above: Performed By: #### H EMOG ####[facility] [place] [address] MCHC Auto mass conc (RBC) 32.4 % Normal 32.0-36.0 [facility] Comment on above: Performed By: #### H EMOG ####[facility] [place] [address] MCV Auto Entitic volume (RBC) 89.5 fL Normal 79.0-98.0 [facility] Comment on above: Performed By: #### H EMOG ####[place] [address] [place] [address] Platelet mean volume Auto Entitic volume (Bld) 8.7 fL Normal 7.4-10.4 [facility] Comment on above: Performed By: #### H JOSE ####[facility] [place] [address] Platelets Auto #/vol (Bld) 260 10*3/uL Normal 140-440 [facility] Comment on above: Performed By: #### H JOSE ####[place] [address] [place] [address] RBC Auto #/vol (Bld) 4.48 10*6/uL Normal 3.80-5.20 [facility] Comment on above: Performed By: #### H JOSE ####[place] [address] [place] [address] WBC Auto #/vol (Bld) 5.7 10*3/uL Normal 3.6-10.7 [facility] Comment on above: Performed By: #### H JOSE ####[place] [address] [place] [address] Hemogramon 05-15-2018 Erythrocyte distribution width Auto Ratio (RBC) 13.4 % Normal 11.5-14.5 [facility] Comment on above: Performed By: #### CONRADO SMITH ####[address] [place] [address] Hematocrit Auto Volume Fraction (Bld) 37.2 % Normal 35.0-47.0 [facility] Comment on above: Performed By: #### H CONRADO GARCIA ####[place] [address] [place] [address] Hemoglobin mass conc (Bld) 12.8 g/dL Normal 11.7-16.0 [facility] Comment on above: Performed By: #### H CONRADO GARCIA ####[place] [address] [place] [address] MCH Auto Entitic mass (RBC) 30.5 pg Normal 26.0-34.0 [facility] Comment on above: Performed By: #### CONRADO SMITH ####[place] [address] [place] [address] MCHC Auto mass conc (RBC) 34.3 % Normal 32.0-36.0 [facility] Comment on above: Performed By: #### H JOSE FEIBC ####[facility] [place] [address] MCV Auto Entitic volume (RBC) 88.8 fL Normal 79.0-98.0 [facility] Comment on above: Performed By: #### H JOSE FEIBC ####[facility] [place] [address] Platelet mean volume Auto Entitic volume (Bld) 9.0 fL Normal 7.4-10.4 [facility] Comment on above: Performed By: #### H JOSE FEIBC ####[facility] [place] [address] Platelets Auto #/vol (Bld) 199 10*3/uL Normal 140-440 [facility] Comment on above: Performed By: #### H JOSE FEIBC ####[facility] [place] [address] RBC Auto #/vol (Bld) 4.19 10*6/uL Normal 3.80-5.20 [facility] Comment on above: Performed By: #### H JOSE FEIBC ####[facility] [place] [address] WBC Auto #/vol (Bld) 7.1 10*3/uL Normal 3.6-10.7 [facility] Comment on above: Performed By: #### H JOSE FEIBC ####[facility] [place] [address] Iron AND TIBCon 05-15-2018 Saturation 13 % Low 15-50 [facility] Comment on above: Performed By: #### H JOSE FEIBC ####[facility] [place] [address] Total Iron Binding Cap. 269 ug/dL Normal 261-497 [facility] Comment on above: Performed By: #### H JOSE FEIBC ####[facility] [place] [address] Iron, Total 35 ug/dL Low 37-170 [facility] Comment on above: Performed By: #### H CONRADO GARCIA ####[facility] [place] [address] Vital Signs Date Time Vital Sign Value Performing Clinician Amando orellana 03-25-2025 19:04-0400 Body temperature 98.4 [degF] Chey Kumar MD [facility] 03-25-2025 19:04-0400 Diastolic blood pressure 74 mm[Hg] Chey Kumar MD [facility] 03-25-2025 19:04-0400 Heart rate 83 /min Chey Kumar MD [facility] 03-25-2025 19:04-0400 Respiratory rate 18 /min Chye Kumar MD [facility] 03-25-2025 19:04-0400 SaO2% (BldA) [Mass fraction] 97 % Chey Kumar MD [facility] 03-25-2025 19:04-0400 Systolic blood pressure 125 mm[Hg] Chey Kumar MD [facility] 03-25-2025 16:46-0400 Body height 142.01 cm Chey Kumar MD [facility] 03-25-2025 16:46-0400 Body mass index (BMI) [Ratio] 34 kg/m2 Chey Kumar MD [facility] 03-25-2025 16:46-0400 Body weight 68.5 kg Chey Kumar MD [facility] 02-18-2025 13:04-0400 Body height 142.24 cm Chey Kumar MD [facility] 02-15-2025 17:53-0400 Body height 142.24 cm Chey Kumar MD [facility] 02-15-2025 17:51-0400 Body height 142.24 cm Chey Kumar MD [facility] 02-15-2025 17:27-0400 Body height 142.24 cm Chey Kumar MD [facility] 02-07-2025 11:01-0400 Body temperature 97.11 [degF] Narciso Sherman PA-C Work Phone: [facility] 02-07-2025 11:01-0400 Diastolic blood pressure 72 mm[Hg] Narciso Sherman PA-C Work Phone: [facility] 02-07-2025 11:01-0400 Heart rate 102 /min Narciso Sherman PA-C Work Phone: [facility] 02-07-2025 11:01-0400 Respiratory rate 14 /min Narciso Sherman PA-C Work Phone: [facility] 02-07-2025 11:01-0400 SaO2% (BldA) [Mass fraction] 96 % Narciso Sherman PA-C Work Phone: [facility] 02-07-2025 11:01-0400 Systolic blood pressure 110 mm[Hg] Narciso Sherman PA-C Work Phone: [facility] 09-16-2024 11:44-0500 Diastolic blood pressure 70 mm[Hg] Sahra Guy MD Work Phone: [facility] 09-16-2024 11:44-0500 Systolic blood pressure 112 mm[Hg] Sahra Guy MD Work Phone: [facility] 09-16-2024 11:28-0500 Heart rate 76 /min Sahra Guy MD Work Phone: [facility] 08-23-2024 10:39-0500 Diastolic blood pressure 74 mm[Hg] Sahra Guy MD Work Phone: [facility] 08-23-2024 10:39-0500 Systolic blood pressure 116 mm[Hg] Sahra Guy MD Work Phone: [facility] 08-23-2024 10:07-0500 Body height 142.2 cm Sahra Guy MD Work Phone: [facility] 08-23-2024 10:07-0500 Heart rate 60 /min Sahra Guy MD Work Phone: [facility] 08-23-2024 10:07-0500 SaO2% (BldA) [Mass fraction] 95 % Sahra Guy MD Work Phone: [facility] 08-11-2024 13:37-0500 Diastolic blood pressure 77 mm[Hg] Leonid Mel AFRICAN STUDIES PROFESSOR.ENVIRONMENTAL SOLUTIONS ENGINEER Work Phone: [facility] 08-11-2024 13:37-0500 Heart rate 66 /min Leonid Mel AFRICAN STUDIES PROFESSOR.CN P Work Phone: [facility] 08-11-2024 13:37-0500 SaO2% (BldA) [Mass fraction] 98 % Leonid Mel AFRICAN STUDIES PROFESSOR.ENVIRONMENTAL SOLUTIONS ENGINEER Work Phone: [facility] 08-11-2024 13:37-0500 Systolic blood pressure 146 mm[Hg] Leonid Mel AFRICAN STUDIES PROFESSOR.ENVIRONMENTAL SOLUTIONS ENGINEER Work Phone: [facility] 12-10-2023 09:18-0400 Body height 142.2 cm Sahra Guy MD Work Phone: [facility] 12-10-2023 09:18-0400 Diastolic blood pressure 81 mm[Hg] Sahra Guy MD Work Phone: [facility] 12-10-2023 09:18-0400 Heart rate 68 /min Sahra Guy MD Work Phone: [facility] 12-10-2023 09:18-0400 SaO2% (BldA) [Mass fraction] 98 % Sahra Guy MD Work Phone: [facility] 12-10-2023 09:18-0400 Systolic blood pressure 156 mm[Hg] Sahra Guy MD Work Phone: [facility] 04-03-2023 13:58-0400 Body height 139.7 cm Ken Trent MD Work Phone: [facility] 04-03-2023 13:58-0400 Diastolic blood pressure 90 mm[Hg] Ken Trent MD Work Phone: [facility] 04-03-2023 13:58-0400 Heart rate 69 /min Ken Trent MD Work Phone: [facility] 04-03-2023 13:58-0400 Systolic blood pressure 137 mm[Hg] Ken Trent MD Work Phone: [facility] 03-10-2023 09:59-0400 Body height 142.2 cm Sahra Guy MD Work Phone: [facility] 03-10-2023 09:59-0400 Diastolic blood pressure 67 mm[Hg] Sahra Guy MD Work Phone: [facility] 03-10-2023 09:59-0400 Heart rate 70 /min Sahra Guy MD Work Phone: [facility] 03-10-2023 09:59-0400 SaO2% (BldA) [Mass fraction] 96 % Sahra Guy MD Work Phone: [facility] 03-10-2023 09:59-0400 Systolic blood pressure 146 mm[Hg] Sahra Guy MD Work Phone: [facility] 10-29-2021 10:36-0400 Diastolic blood pressure 60 mm[Hg] Sahra Guy MD Work Phone: [facility] 10-29-2021 10:36-0400 Systolic blood pressure 120 mm[Hg] Sahra Guy MD Work Phone: [facility] 10-29-2021 09:52-0400 Heart rate 71 /min Sahra Guy MD Work Phone: [facility] Encounters Encounter Date Encounter Type Care Provider Facility Start: 06-07-2025 ambulatory Efewongbe Oleghe OLS Fa cility:[facility] Start: 05-09-2025 ambulatory Efewongbe Oleghe Facili ty:[facility] Start: 05-03-2025 ambulatory Efewongbe Oleghe OLS Fa cility:[facility] Start: 04-11-2025 ambulatory Efgarfield Menge Facili ty:[facility] Start: 04-11-2025 End: 04-11-2025 ambulatory Chey Kumar Facility:[facility] Start: 04-05-2025 ambulatory Efadebe Yusrae Facili ty:[facility] Start: 04-05-2025 [facility]: 03-30-2025 End: 03-30-[address] Chepe Melo MD -[facility] Start: 03-30-2025 End: 03-30-2025 ambulatory Chey Kumar MD [facility] Start: 03-25-2025 End: 03-25-2025 Emergency department patient visit Chey Kumar MD -Emergency Department Work Phone: Start: 03-24-2025 End: 03-24-2025 [facility] Start: 03-24-2025 End: 03-24-2025 [facility] Start: 03-22-2025 End: 03-22-2025 Telephone encounter Sahra Guy MD Work Phone: [facility] Comment on above: FYI-No Action Needed Start: 03-20-2025 End: 03-20-2025 ambulatory [facility] Start: 03-20-2025 End: 03-20-2025 [facility] Start: 03-07-2025 End: 03-07-2025 [facility] Start: 03-07-2025 End: 03-07-2025 ambulatory [facility]y [facility] Start: 03-07-2025 [facility] Start: 02-28-2025 ambulatory Chey THOMAS Fa cility:[facility] Start: 02-28-2025 Registered Referred Chey Kumar MD [facility] Start: 02-21-2025 ambulatory Chey Kumar OLS Fa cility:[facility] Start: 02-21-2025 [facility] Start: 02-14-2025 End: 02-14-2025 ambulatory Chey Kumar MD [facility] Start: 02-14-2025 End: 02-14-[address] Chey Kumar MD -[facility] Work Phone: Start: 02-14-2025 ambulatory Chey THOMAS Fa cility:[facility] Start: 02-14-2025 Registered Referred Chey Kumar MD [facility] Start: 02-10-2025 End: 02-14-2025 Telephone encounter Marilyn Santos PA-C Work Phone: Urology Comment on above: Results; Orders Start: 02-09-2025 End: 02-09-2025 Orders Only Marilyn Santos PA-C Work Phone: Urology Start: 02-09-2025 Registered Referred Chey Kumar MD [facility] Start: 02-08-2025 End: 02-08-2025 Telephone encounter Narciso Sherman PA-C Work Phone: Urology Comment on above: Director Food Safety - O ther Start: 02-07-2025 End: 02-07-2025 Patient encounter procedure Narciso Sherman PA-C Work Phone: Urology Comment on above: Urinary tract infect ion without hematuria, site unspecified (Primary Dx); Frequent urination; Burning with urination; Compression fracture of thoracic vertebra with routine healing, unspecified thoracic vertebral level, subsequent encounter; Screening for genitourinary condition Start: 02-07-2025 End: 02-07-2025 ambulatory SAHRA GUY Facility:[facility] Start: 02-07-2025 Registered Referred Chey Bell Start: 02-06-2025 End: 02-07-2025 Chart abstracting Narciso Sherman PA-C Work Phone: Urology Start: 01-31-2025 ambulatory Chey Kumar WILLIAM Fa cility:[facility] Start: 01-31-2025 Registered Referred Chey Bell Start: 01-24-2025 End: 01-24-2025 [facility] Start: 01-24-2025 End: 01-24-2025 [facility] Start: 01-24-2025 Registered Referred Chey Bell Start: 01-19-2025 End: 01-19-2025 ambulatory [facility] Start: 01-19-2025 End: 01-19-2025 [facility] Work Phone: Start: 01-17-2025 ambulatory Melindabrittany THOMAS Fa cility:[facility] Start: 01-17-2025 Registered Referred Chey Bell Start: 01-10-2025 End: 01-10-2025 [facility]: Start: 01-10-2025 End: 01-10-2025 ambulatory [facility] Start: 01-10-2025 Registered Referred Chey Bell Start: 01-09-2025 End: 02-18-2025 [facility] Start: 01-09-2025 End: 02-18-2025 [facility] Comment on above: Population Health Na vigation Outreach [facility] Start: 01-03-2025 ambulatory Chey Kumar OLS Fa cility:[facility] Start: 01-03-2025 Registered Referred Chey Bell Start: 12-28-2024 End: 12-28-2024 Patient encounter procedure [facility] Work Phone: Start: 12-28-2024 End: 12-28-2024 ambulatory [facility] Start: 12-28-2024 Registered Referred Chey Bell Start: 12-27-2024 ambulatory Chey THOMAS Fa cility:[facility] Start: 12-27-2024 Registered Referred Chey Bell Start: 12-22-2024 End: 12-22-2024 ambulatory [facility] Start: 12-22-2024 End: 12-22-2024 Patient encounter procedure [facility] Work Phone: Start: 12-20-2024 End: 12-20-[address] Chey Kumar MD [facility] Work Phone: Start: 12-20-2024 End: 12-20-2024 ambulatory Chey Kumar [facility] Start: 12-20-2024 Registered Referred Chey Bell Start: 12-12-2024 End: 12-19-2024 Evaluation and management of inpatient SHARA GUY Facility:[facility] Start: 12-08-2024 End: 12-10-2024 ambulatory Sahra Guy MD Work Phone: Family [facility] Comment on above: nausea and barely ea ting Start: 12-08-2024 End: 12-09-2024 Telephone encounter Sahra Guy MD Work Phone: Family [facility] Comment on above: Insurance Authorizat ion Start: 12-07-2024 End: 12-08-2024 Telephone encounter Sahra Guy MD Work Phone: Family Practice Comment on above: Medication Problem ( Lidocaine 5% is covered, not the 4%) Start: 12-02-2024 End: 12-08-2024 ambulatory Sahra Guy MD Work Phone: [facility] [place] Comment on above: Nurse Triage Call; P atient Update Start: 11-30-2024 End: 11-30-2024 ambulatory Sahra Guy MD Work Phone: [facility] Comment on above: Allied Health Visit (Medication Adherence Outreach ) Start: 10-24-2024 End: 10-24-2024 Telephone encounter Sahra Guy MD Work Phone: Family [facility] Comment on above: Received Outside Med [facility] Records ([facility] OT Evaluation performed no further treatment. 10/20/2024) Start: 10-19-2024 End: 10-19-2024 Telephone encounter Sahra Guy MD Work Phone: [facility] Comment on above: Orders ([facility]) Start: 10-12-2024 End: 10-12-2024 Telephone encounter Sahra Guy MD Work Phone: [facility] Comment on above: PT Eval Start: 10-11-2024 End: 10-11-2024 Telephone encounter Sahra Guy MD Work Phone: Family [facility] Comment on above: Orders Start: 10-06-2024 End: 11-12-2024 Telephone encounter Sahra Guy MD Work Phone: Family [facility] Comment on above: Patient Question (Sl ipped in shower) Start: 09-23-2024 End: 09-26-2024 ambulatory Sahra Guy MD Work Phone: Family Practice Comment on above: Nurse Triage Call; R eturn Call Request Start: 09-23-2024 End: 09-23-2024 Telephone encounter Sahra Guy MD Work Phone: Family Practice Comment on above: Received Outside Med [facility] Records ([facility] Face to Face Encounter Documentation encounter 08/23/2024) Start: 09-16-2024 End: 09-16-2024 ambulatory SAHRA GUY Facility:[facility] Start: 09-16-2024 End: 09-16-2024 Office outpatient visit 25 minutes Sahra Guy MD Work Phone: Family [facility] Comment on above: Falling episodes (Pr imary Dx); Acute left-sided low back pain with left-sided sciatica; Fall from motorized wheelchair, initial encounter; Post-polio syndrome; Neck pain, chronic; Chronic hand pain, unspecified laterality Start: 09-09-2024 End: 12-09-2024 Telephone encounter Sahra Guy MD Work Phone: Family [facility] Comment on above: Orders; Patient Upda te (Lab orders were faxed) Hyperglycemia, unspe cified (Primary Dx); Mixed hyperlipidemia Start: 09-09-2024 End: 09-09-2024 ambulatory SAHRA GUY [facility] Start: 09-02-2024 End: 09-02-2024 Telephone encounter Sahra Guy MD Work Phone: Family Practice Comment on above: Results (Labs) Start: 09-01-2024 End: 09-06-2024 Telephone encounter Sahra Guy MD Work Phone: Family Practice Comment on above: Office Notes Returning Patient's Call Start: 08-31-2024 End: 11-12-2024 Telephone encounter Sahra Guy MD Work Phone: Family Practice Comment on above: Results (Lab tests) Start: 08-24-2024 End: 08-24-2024 Telephone encounter Sahra Guy MD Work Phone: Family Practice Comment on above: Orders ([facility] Start: 08-23-2024 End: 08-23-2024 ambulatory SAHRA GUY Facility: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); Post-polio syndrome; Hyperlipidemia, mixed; Hyperglycemia; Vitamin D deficiency; Essential hypertension; Primary osteoarthritis involving multiple joints; Abnormality of gait; Falling episodes Start: 08-22-2024 End: 08-22-2024 Telephone encounter Sahra Guy MD Work Phone: [facility] [place] Comment on above: Patient Update (At o ffice visit on 08/23/2024 please fill all Rx's that apply per patient [facility] mail order) Start: 08-15-2024 End: 08-17-2024 Telephone encounter Sahra Guy MD Work Phone: Family [facility] Comment on above: Orders (PT and OT) Start: 08-11-2024 End: 08-11-2024 ambulatory Sahra Guy MD Work Phone: [facility] Comment on above: Muscle Aches Start: 08-11-2024 End: 08-11-2024 Office outpatient visit 15 minutes Leonid Leal APRN.CNP Work Phone: [facility] Comment on above: Acute left-sided low back pain with left-sided sciatica (Primary Dx) Start: 07-05-2024 End: 07-05-2024 Refill Sahra Guy MD Work Phone: [facility] Comment on above: Refill Request Start: 06-23-2024 End: 06-23-2024 Telephone encounter Sahra Guy MD Work Phone: [facility] Comment on above: Orders ([facility] [place]) Start: 06-20-2024 End: 06-20-2024 Refill Sahra Guy MD Work Phone: [facility] Comment on above: Refill Request Start: 06-02-2024 End: 06-03-2024 Telephone encounter Sahra Guy MD Work Phone: [facility] Comment on above: Question Patient Question Start: 05-18-2024 End: 05-18-2024 Telephone encounter Sahra Guy MD Work Phone: [facility] Comment on above: RSV vaccine Start: 04-06-2024 End: 04-06-2024 Refill Sahra Guy MD Work Phone: [facility] Comment on above: Refill Request Start: 03-07-2024 Telephone encounter Sahra Guy MD Work Phone: [facility] Comment on above: Results Start: 03-03-2024 End: 06-02-2024 Transcribe Orders Leonid Alvin Patel AFRICAN STUDIES PROFESSOR - ENVIRONMENTAL SOLUTIONS ENGINEER Work Phone: [facility] Comment on above: Hyperglycemia, unspe cified (Primary Dx); Mixed hyperlipidemia; Vitamin D deficiency, unspecified; Other specified disorders of bone density and structure, unspecified site Start: 02-26-2024 Telephone encounter Sahra Guy MD Work Phone: [facility] Comment on above: Orders (Labs fax to [place]) Start: 02-23-2024 Refill Sahra reed MD Work Phone: [facility] Comment on above: Refill Request Start: 01-25-2024 Refill Sahra reed MD Work Phone: [facility] Comment on above: Refill Request Start: 01-12-2024 Refill Sahra reed MD Work Phone: [facility] Comment on above: Refill Request Start: 12-10-2023 End: 12-10-2023 Patient encounter procedure Sahra Guy MD Work Phone: [facility] Comment on above: Late effects of [...] encounter Sahra Guy MD Work Phone: Family [facility] Comment on above: Received Outside Med [facility] Records ([place] [facility] I Move in Assessment 11/25/2023); Patient Update Start: 07-13-2023 Refill Leonid Duggan PRN.CNP Work Phone: [facility] Comment on above: Refill Request Start: 05-08-2023 Refill Sahra reed MD Work Phone: [facility] Comment on above: Refill Request Start: 04-23-2023 End: 04-23-2023 ambulatory [facility] Comment on above: Post-polio syndrome; Poliomyelitis osteopathy of multiple sites (HCC) Start: 04-09-2023 End: 04-09-2023 Orders Only Ken Trent MD Work Phone: [facility] Comment on above: Post-polio syndrome (Primary Dx) Director Food Safety - O ther Dysphagia, unspecifi ed type (Primary Dx); Post-polio syndrome Start: 04-03-2023 End: 04-03-2023 Office outpatient new 60 minutes Ken Trent MD Work Phone: [facility] Comment on above: Post-polio syndrome (Primary Dx) Start: 03-23-2023 Telephone encounter Sahra Guy MD Work Phone: [facility] Comment on above: Orders (OT referral request [place] [facility] ) Start: 03-11-2023 Refill Sahra reed MD Work Phone: [facility] Comment on above: Refill Request Start: 03-10-2023 End: 03-10-2023 Patient encounter procedure Sahra Guy MD Work Phone: [facility] Comment on above: Post-polio syndrome (Primary Dx); Poliomyelitis osteopathy of multiple sites (HCC); Late effects of acute poliomyelitis; Obesity, Class III, 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); 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); Obstructive sleep apnea on CPAP; OAB (overactive bladder); Gastroesophageal reflux disease, unspecified whether esophagitis present Start: 12-09-2022 Telephone encounter Sahra Guy MD Work Phone: [facility] Comment on above: Forms ([employer] Clearance Form ) Start: 09-30-2022 Telephone encounter Sahra Guy MD Work Phone: [facility] Comment on above: medicaiton problem Start: 09-26-2022 Telephone encounter Sahra Guy MD Work Phone: [facility] Comment on above: Results Start: 09-17-2022 ambulatory Sahra reed MD Work Phone: [facility] Comment on above: Nurse Triage Call Start: 08-01-2022 Refill Sahra reed MD Work Phone: [facility] Comment on above: Refill Request Start: 07-14-2022 Telephone encounter Sahra Guy MD Work Phone: [facility] Comment on above: Received Outside Med ical Records (Health care provider certification of disability license plates. ) Start: 06-12-2022 End: 06-12-2022 ambulatory Leonid Roach AFRICAN STUDIES PROFESSOR.ENVIRONMENTAL SOLUTIONS ENGINEER Work Phone: [facility] Comment on above: COVID-19 (Primary Dx ) Start: 06-12-2022 End: 06-12-2022 Telemedicine consultation with patient Leonid Roach AFRICAN STUDIES PROFESSOR.ENVIRONMENTAL SOLUTIONS ENGINEER Work Phone: [facility] Start: 06-11-2022 End: 06-11-2022 ambulatory Nurse Triage [facility] Work Phone: Nurse Phone Triage Comment on above: Covid Positive Start: 06-11-2022 Telephone encounter Sahra Guy MD Work Phone: [facility] Comment on above: Covid Positive (/) Start: 04-09-2022 Telephone encounter Sahra Guy MD Work Phone: [facility] Comment on above: Results (Labs ) Start: 04-03-2022 Refill Sahra reed MD Work Phone: [facility] Comment on above: Med Change Request Start: 03-25-2022 Refill Sahra reed MD Work Phone: [facility] Comment on above: Refill Request Start: 03-19-2022 Telephone encounter Sahra Guy MD Work Phone: [facility] Comment on above: Orders (Thyroid/); P atient Question (Draw labs at the office/) Start: 12-19-2021 Telephone encounter Sahra Guy MD Work Phone: [facility] Comment on above: Request for PCP sign off (from [facility]) Start: 12-13-2021 ambulatory Nopcp (Historical) [facility] Start: 12-04-2021 Telephone encounter Sahra Guy MD Work Phone: [facility] Comment on above: Orders ([facility] 11/05/2021 - 11/25/2021) Home Care Start: 12-02-2021 Telephone encounter Sahra Guy MD Work Phone: [facility] Comment on above: Patient Update (Upda te and orders signed and faxed to [facility]. ) Start: 11-28-2021 Telephone encounter Sahra Guy MD Work Phone: Family Medicine Comment on above: Received Outside Med ical Records ([facility] Discharge summary 11/28/2021) Start: 11-21-2021 Telephone encounter Sahra Guy MD Work Phone: [facility] Comment on above: Orders ([facility] 11/21/2021) Start: 11-20-2021 Telephone encounter Sahra Guy MD Work Phone: [facility] [place] Comment on above: Patient Update Start: 11-05-2021 Telephone encounter Sahra Guy MD Work Phone: Family [facility] Comment on above: Patient Update Start: 10-31-2021 Telephone encounter Leonid Low maty AFRICAN STUDIES PROFESSOR.ENVIRONMENTAL SOLUTIONS ENGINEER Work Phone: [facility] Comment on above: Results Start: 10-29-2021 End: 10-29-2021 Patient encounter procedure Sahra Guy MD Work Phone: [facility] Comment on above: Poliomyelitis osteop athy [...] End: 09-07-2018 Evaluation and management of inpatient [facility] Facility:[facility] Start: 08-05-2018 Patient encounter procedure UNKNOWN PROVIDER [facility] Start: 05-15-2018 Patient encounter procedure UNKNOWN PROVIDER [facility] Start: 10-03-2017 Patient encounter procedure UNKNOWN PROVIDER [facility] Procedures Date Procedure Procedure Detail Performing [...] - S daniella or Plasma Leonid Roach APRN - ENVIRONMENTAL SOLUTIONS ENGINEER Work Phone: Start: 12-10-2023 Adult depression scr eening assessment Sahra Guy MD Work Phone: Plan of Treatment Date Care Activity Detail Author Start: 09-09-2029 Lipid panel Lipid Panel [facility] Start: 03-03-2029 Lipid panel Lipid Panel [facility] Start: 12-20-2027 Diabetes Screening Diabetes Screening [facility] Start: 12-09-2027 Diabetes Screening Diabetes Screening [facility] Start: 09-09-2027 Diabetes Screening Diabetes Screening [facility] Start: 08-25-2027 Diabetes Screening Diabetes Screening [facility] Start: 03-03-2027 Diabetes Screening Diabetes Screening [facility] Start: 09-25-2025 DIABETES SCREEN DIABETES SCREEN [facility] Start: 09-25-2025 Diabetes Screening Diabetes Screening [facility] Start: 09-22-2025 Medicare Annual Wellness (AWV) Medicare Annual Wellness (AWV) [facility] Start: 04-08-2025 DIABETES SCREEN DIABETES SCREEN [facility] Start: 04-03-2025 Influenza vaccination [facility] Start: 03-30-2025 L/S Spine Min 4 Views L/S Spine Min 4 Views [facility] Start: 03-30-2025 XR Spine Lumbar and Sacrum GE 4 Views [facility] Start: 03-30-2025 X-ray of lumbar spine, two or three views Lumbar Spine 2 or 3 Views [facility] Start: 03-30-2025 XR Lumbar spine 2 or 3 Views [facility] Start: 03-25-2025 [facility] Start: 01-31-2025 End: 01-31-2025 Patient encounter procedure 01/31/2025 2:00 PM EDT Office Visit Urology [address] [place] [address] Nataliya Dominguez MD [address] [place] [id number] Acute urinary retention [R33.8] Urology Comment on above: Acute urinary retention [R33.8] Start: 01-10-2025 End: 01-10-2025 Patient encounter procedure 01/10/2025 8:00 AM EDT Office Visit Gastroenterology [address] [place] [address] Kinjal Hernandes APRN.[facility] [address] [place] [address] constipation Gastroenterology Comment on above: constipation Start: 01-02-2025 End: 01-02-2025 Patient encounter procedure 01/02/2025 10:30 AM EDT Office Visit Neurology [address] [place], [place] [id number] Timothy Shine MD [address] [place], [place] [id number] 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 Start: 12-14-2024 End: 12-14-2024 Patient encounter procedure 12/14/2024 3:00 PM EDT Office Visit [facility] [address] [place] [id number] Harinder Kiran PA-C [address] [place] [id number] Acute left-sided low back pain with left-sided sciatica [M54.42] [facility] Comment on above: Acute left-sided low back pain with left -sided sciatica [M54.42] Start: 12-09-2024 Anxiety Screening Anxiety Screening [facility] Start: 12-09-2024 Depression Screening Depression Screening [facility] Start: 11-15-2024 Covid-19 Vaccine () Covid-19 Vaccine () [facility] Start: 10-29-2024 DIABETES SCREEN DIABETES SCREEN [facility] Start: 09-15-2024 End: 09-15-2024 Patient encounter procedure 09/15/2024 9:20 AM EST Office Visit Family Practice [address] [place] [address] Sahra Guy MD [address] [place] [address] follow up Family Practice Comment on above: follow up Start: 09-13-2024 End: 09-13-2024 Patient encounter procedure 09/13/2024 10:20 AM EST Office Visit Family Practice [address] [place] [place] [address] Sahra Guy MD [address] [place] [address] [place] [address] follow up Family Practice Comment on above: follow up Start: 08-23-2024 End: 11-22-2024 Comprehensive metabolic 2000 panel - Serum or Plasma COMPREHENSIVE METABOLIC PANEL Lab Routine Hyperglycemia Expected: 08/23/2024, Expires: 11/22/2024 [facility] Work Phone: Comment on above: Expected: 08/23/2024, Expires: Start: 08-23-2024 End: 11-22-2024 Hemoglobin A1c in Blood HEMOGLOBIN A1C Lab Routine Hyperglycemia Expected: 08/23/2024, Expires: 11/22/2024 [facility] Comment on above: Expected: 08/23/2024, Expires: Start: 08-23-2024 End: 11-22-2024 Lipid 1996 panel - Serum or Plasma LIPID PANEL BASIC Lab Routine Hyperlipidemia, mixed Expected: 08/23/2024, Expires: 11/22/2024 [facility] Comment on above: Expected: 08/23/2024, Expires: Start: 08-23-2024 End: 08-23-2024 Patient encounter procedure 08/23/2024 10:00 AM EST Office Visit [address] [place], [place] [id number] Sahra Guy MD [address] [place] [address] [address] [place], [place] [id number] Medicare Wellness [facility] Comment on above: Medicare Wellness Start: 08-03-2024 Advance Directive Discussion Advance Directive Discussion [facility] Start: 04-03-2024 Covid-19 Vaccine ( season) Covid-19 Vaccine ( season) [facility] Start: 04-03-2024 Covid-19 Vaccine ( season) Covid-19 Vaccine ( season) [facility] Start: 04-03-2024 Influenza vaccination [facility] Start: 02-23-2024 End: 05-24-2024 25-hydroxyvitamin D3 [Mass/volume] in Serum or Plasma VITAMIN D 25 HYDROXY Lab Routine Vitamin D deficiency Expected: 02/23/2024, Expires: 05/24/2024 [facility] Comment on above: Expected: 02/23/2024, Expires: Start: 02-23-2024 End: 05-24-2024 CBC panel - Blood by Automated count COMPLETE BLOOD COUNT Lab Routine Osteopenia, unspecified location Expected: 02/23/2024, Expires: 05/24/2024 [facility] Comment on above: Expected: 02/23/2024, Expires: Start: 02-23-2024 End: 05-24-2024 Comprehensive metabolic 2000 panel - Serum or Plasma COMPREHENSIVE METABOLIC PANEL Lab Routine Hyperglycemia Hyperlipidemia, mixed Expected: 02/23/2024, Expires: 05/24/2024 [facility] Comment on above: Expected: 02/23/2024, Expires: Start: 02-23-2024 End: 05-24-2024 Hemoglobin A1c in Blood HEMOGLOBIN A1C Lab Routine Hyperglycemia Expected: 02/23/2024, Expires: 05/24/2024 [facility] Work Phone: Comment on above: Expected: 02/23/2024, Expires: Start: 02-23-2024 End: 05-24-2024 Lipid 1996 panel - Serum or Plasma LIPID PANEL BASIC Lab Routine Hyperlipidemia, mixed Expected: 02/23/2024, Expires: 05/24/2024 [facility] Comment on above: Expected: 02/23/2024, Expires: Start: 10-04-2023 Covid-19 Vaccine () Covid-19 Vaccine () [facility] Start: 09-25-2023 Urine microalbumin profile [facility] Comment on above: Postponed from 03/11/2014 (Declined at t his time) Start: 08-30-2023 DIABETES SCREEN DIABETES SCREEN [facility] Start: 08-03-2023 Advance Directive Discussion Advance Directive Discussion [facility] Start: 08-03-2023 Behavioral Health Screening Behavioral Health Screening [facility] Start: 04-03-2023 Covid-19 Vaccine () Covid-19 Vaccine () [facility] Start: 04-03-2023 End: 06-03-2023 Creatine kinase [Enzymatic activity/volume] in Serum or Plasma [facility] Work Phone: Comment on above: Expected: 04/03/2023, Expires: 3 Start: 04-03-2023 Influenza vaccination [facility] Start: 09-29-2022 COVID-19 VACCINE (6 - Pfizer series) COVID-19 VACCINE (6 - Pfizer series) [facility] Start: 08-03-2022 ADVANCE DIRECTIVE DISCUSSION ADVANCE DIRECTIVE DISCUSSION [facility] Start: 08-03-2022 DEPRESSION ASSESSMENT DEPRESSION ASSESSMENT [facility] Start: 04-03-2022 Influenza vaccination INFLUENZA (#1) [facility] Start: 10-02-2021 COVID-19 VACCINE (4 - Booster for Pfizer series) COVID-19 VACCINE (4 - Booster for Pfizer series) [facility] Start: 08-03-2021 ADVANCE DIRECTIVE DISCUSSION ADVANCE DIRECTIVE DISCUSSION [facility] Start: 08-03-2021 DEPRESSION ASSESSMENT DEPRESSION ASSESSMENT [facility] Start: 03-11-2014 DTaP/Tdap/Td Vaccines (1 - Tdap) DTaP/Tdap/Td Vaccines (1 - Tdap) [facility] Start: 03-11-2014 Urine microalbumin profile [facility] Start: 2013 RSV Immunization for Adults (1 - 1-dose 75+ series) RSV Immunization for Adults (1 - 1-dose 75+ series) [facility] Start: 2013 RSV Vaccine (1 - 1-dose 75+ series) RSV Vaccine (1 - 1-dose 75+ series) [facility] Start: 1998 RSV Vaccine (1 - 1-dose 60+ series) RSV Vaccine (1 - 1-dose 60+ series) [facility] Start: 1950 Depression Screening Depression Screening [facility] Start: 1938 Medicare Annual Wellness (AWV) Medicare Annual Wellness (AWV) [facility] Start: 1938 Screening for osteoporosis Bone Density Scan [facility] Bacteria identified in Urine by Culture BACTERIAL CULTURE, URINE Microbiology Routine Burning with urination 02/07/2025 11:40 AM EDT [facility] Work Phone: CBC panel - Blood by Automated count CBC Lab Today History of iron deficiency anemia Ordered: 10/29/2021 [facility] Work Phone: Comment on above: Ordered: 10/29/2021 Comprehensive metabolic 2000 panel - Serum or Plasma COMP METABOLIC PANEL Lab Today Poliomyelitis osteopathy of multiple sites (HCC) Ordered: 10/29/2021 [facility] Work Phone: Comment on above: Ordered: 10/29/2021 IRON + TIBC IRON + TIBC Lab Today History of iron deficiency anemia Ordered: 10/29/2021 [facility] Work Phone: Comment on above: Ordered: 10/29/2021 LIPID PANEL BASIC LIPID PANEL BA SIC Lab Today Screening for lipid disorders Ordered: 10/29/2021 [facility] Work Phone: Comment on above: Ordered: 10/29/2021 OUTSIDE PROCEDURE SCAN OUTSIDE PROCEDURE SCAN Procedures Ordered: 09/09/2024 [facility] Comment on above: Ordered: 09/09/2024 Patient Education ED Constipatio n (Adult) ED Fecal Impaction, Treated [facility] Work Phone: End: 11-28-2022 XR KNEE LIMITED 2V AP/LAT RIGHT XR KNEE LIMITED 2V AP/LAT RIGHT Radiology Routine Acute pain of right knee 1 Occurrences starting 10/29/2021 until 11/28/2022 [facility] Work Phone: Comment on above: 1 Occurrences starting 10/29/2021 until 11/28/2022 End: 10-26-2025 XR Lumbar spine 3 Views XR LUMBAR GENERAL 3V AP/LAT/L5-S1 Radiology Routine Acute left-sided low back pain, unspecified whether sciatica present Left hip pain 1 Occurrences starting 09/26/2024 until 10/26/2025 [facility] Comment on above: 1 Occurrences starting 09/26/2024 until 10/26/2025 End: 10-26-2025 XR Pelvis and Hip - left AP and Lateral frog XR HIP GENERAL 3V PELV/AP/LAT LEFT Radiology Routine Left hip pain 1 Occurrences starting 09/26/2024 until 10/26/2025 [facility] Work Phone: Comment on above: 1 Occurrences starting 09/26/2024 until 10/26/2025 [facility] Immunizations Immunization Date Immunization Notes Care Provider Merna narvaez 05-02-2024 influenza virus vacc ine, unspecified formulation Narciso Sherman PA-C Work Phone: [facility] 04-22-2023 influenza virus vacc ine, unspecified formulation Sahra Guy MD Work Phone: [facility] 04-08-2022 influenza, high-dose , quadrivalent vaccine (FLUZONE HIGH DOSE QUADRIVALENT) Sahra Guy MD Work Phone: [facility] 04-08-2022 influenza virus vacc ine, unspecified formulation Jeannette Melgar PT [facility] 05-03-2021 influenza, high-dose , quadrivalent vaccine (FLUZONE HIGH DOSE QUADRIVALENT) Sahra Guy MD Work Phone: [facility] 06-21-2020 zoster vaccine recombinant Sahra Guy MD Work Phone: [facility] 04-25-2020 influenza, high-dose , quadrivalent vaccine (FLUZONE HIGH DOSE QUADRIVALENT) Sahra Guy MD Work Phone: [facility] 04-19-2020 zoster vaccine recombinant Sahra Guy MD Work Phone: [facility] 05-17-2019 influenza, high dose seasonal, preservative-free Sahra Guy MD Work Phone: [facility] 05-20-2018 influenza, high dose seasonal, preservative-free Sahra Guy MD Work Phone: [facility] 05-20-2018 pneumococcal polysaccharide vaccine, 23 valent Sahra Guy MD Work Phone: [facility] 05-25-2017 influenza, high dose seasonal, preservative-free Sahra Guy MD Work Phone: [facility] 05-14-2017 influenza, injectabl e, quadrivalent, contains preservative Sahra Guy MD Work Phone: [facility] 05-24-2015 influenza, injectable,quadrivalent, preservative free, pediatric Sahra Guy MD Work Phone: [facility] 12-13-2014 pneumococcal conjuga te vaccine, 13 valent Sahra Guy MD Work Phone: [facility] 03-10-2014 TD(adult) unspecifie d formulation Sahra Guy MD Work Phone: [facility] 03-10-2014 tetanus and diphther ia toxoids, adsorbed, preservative free, for adult use (2 Lf of tetanus toxoid and 2 Lf of diphtheria toxoid) Chey Kumar MD [facility] 05-04-2012 influenza virus vacc ine, unspecified formulation Sahra Guy MD Work Phone: [facility] 05-27-2011 influenza virus vacc ine, unspecified formulation Sahra Guy MD Work Phone: [facility] Work Phone: 05-27-2011 zoster vaccine, live Sahra Guy MD Work Phone: [facility] Work Phone: 05-15-2010 influenza virus vacc ine, unspecified formulation Sahra Guy MD Work Phone: [facility] 04-30-2009 influenza virus vacc ine, unspecified formulation Sahra Guy MD Work Phone: [facility] Work Phone: 05-10-2008 influenza virus vacc ine, unspecified formulation Sahra Guy MD Work Phone: [facility] Work Phone: 06-08-2007 influenza virus vacc ine, whole virus Sahra Guy MD Work Phone: [facility] 06-03-2006 influenza virus vacc ine, unspecified formulation Sahra Guy MD Work Phone: [facility] Work Phone: 07-30-2005 tetanus and diphther ia toxoids, adsorbed, preservative free, for adult use (2 Lf of tetanus toxoid and 2 Lf of diphtheria toxoid) Sahra Guy MD Work Phone: [facility] Work Phone: 07-31-2002 pneumococcal polysaccharide vaccine, 23 valent Sahra Guy MD Work Phone: [facility] Work Phone: Payers Date Payer Category Payer Self-pay 2024 Commercial Managed C are - PPO [employer] PPO [id number] 2024 Medicare (Managed Care[place] [employer] [id number] 2024 Private Health Insurance [facility] [id number] 2023 Commercial Managed C are - HMO [facility] [id number] 2012 Private Health Insurance [address] [facility] INDEMNITY GENERIC [id number] 2012-Present [phone] [address] [address] [place] [address] Indemnity [id number] 2011 Private Health Insurance [id number] 2001 Medicare 2001 Medicare MEDICARE MEDICAR E A AND B [id number] 2001-Present [phone] [address] [address] [place] [address] Medicare [id number] 2001 Medicare [id number] 1940 Unknown [id number] 2.16.840.1.450978.3.579.2. 668 1938 Unknown [id number] 2.16840.1.591459.3.579.2. 668 1938 Unknown [id number] 2.16.840.1.319902.3.579.2. 668 1938 Unknown [id number] 2.16.840.1.301553.3.579.2. 278 Medicare [id number] Unknown [id number] 2.16.840.1.994648.3.579.2. 462 Unknown [id number] 2.16.840.1.282443.3.579.2. 462 Unknown [id number] 2.16.840.1.750363.3.579.2. 462 Unknown [id number] 2.16.840.1.942737.3.579.2. 462 Unknown [id number] 2.16.840.1.631518.3.579.2. 462 Unknown [id number] 2.16.840.1.064342.3.579.2. 462 Unknown [id number] 2.16.840.1.645263.3.579.2. 462 Unknown [id number] 2.16.840.1.451269.3.579.2. 462 Unknown [id number] 2.16.840.1.606118.3.579.2. 462 Unknown [id number] 2.16.840.1.260358.3.579.2. 462 Unknown [id number] 2.16.840.1.628288.3.579.2. 462 Unknown [id number] 2.16.840.1.097386.3.579.2. 462 Unknown [id number] 2.16.840.1.409467.3.579.2. 462 Unknown [id number] 2.16840.1.604714.3.579.2. 462 Unknown [id number] 2.16840.1.432130.3.579.2. 462 Unknown [id number] 2.840.1.877254.3.579.2. 462 Unknown [id number] 2.840.1.904770.3.579.2. 462 Unknown [id number] 2.840.1.927827.3.579.2. 462 Unknown [id number] 2.16840.1.317125.3.579.2. 462 Unknown [id number] 2.16840.1.962119.3.579.2. 462 Unknown [id number] 2.16840.1.005478.3.579.2. 462 Unknown [id number] 2.16840.1.581992.3.579.2. 462 Unknown [id number] 2.16.840.1.262100.3.579.2. 462 Unknown [id number] 2.16840.1.109046.3.579.2. 462 Unknown [id number] 2.16.840.1.518412.3.579.2. 462 Unknown [id number] 2.16840.1.525874.3.579.2. 462 Unknown [id number] 2.16.840.1.038866.3.579.2. 462 Unknown [id number] 2.16.840.1.321559.3.579.2. 462 Unknown [id number] 2.16.840.1.184251.3.579.2. 462 Unknown [id number] 2.16.840.1.293672.3.579.2. 462 Unknown [id number] 2.16.840.1.352132.3.579.2. 462 Unknown [id number] 2.16.840.1.968856.3.579.2. 462 Unknown [id number] 2.16.840.1.278855.3.579.2. 462 Unknown [id number] 2.16.840.1.404146.3.579.2. 462 Social History Date Type Detail Facility Start: 02-20-2016 End: 04-08-2022 Tobacco smoking status NHIS Never smoked tobacco [facility] Work Phone: Start: 02-20-2016 End: 04-08-2022 Tobacco use and exposure Smokeless tobacco non-user [facility] Work Phone: Start: 10-29-2021 End: 02-07-2025 Alcohol intake Current drinker of alcohol (finding) [facility] Start: 02-15-2025 History SDOH Alcohol Comment [facility] Start: 02-20-2016 End: 04-08-2022 Tobacco Comment second hand smoke exposure. [facility] Start: 1940 Sex Assigned At Not on file C [facility] Start: 10-19-2021 End: 04-08-2022 Exposure to SARS-CoV-2 (event) Not sure [facility] History of tobacco use Passive smoker [facility] Work Phone: Start: 06-01-2022 End: 06-11-2022 Exposure to SARS-CoV-2 (event) Yes [facility] Start: 03-10-2023 End: 01-31-2025 History of Social function [facility] Work Phone: Start: 03-10-2023 End: 01-31-2025 Tobacco use panel [facility] Work Phone: Start: 07-04-2012 Adult Depression Screening Assessment 0 [facility] Work Phone: Start: 06-14-2014 End: 03-25-2025 Tobacco smoking status NHIS Tobacco smoking consumption unknown [facility] Start: 03-03-2022 Sex Female (finding) [facility] Has the electric, [employer] s, oil, or water company threatened to shut off services in your home in past 12Mo No [facility] (I/We) worried whemichael er (my/our) food would run out before (I/we) got money to buy more. Never true [facility] Start: 02-15-2025 Drugs Drugs [facility] Start: 02-15-2025 Lives Lives [facility] Start: 02-15-2025 Tobacco Use Tobacco Use [facility] Start: 1940 Sex Assigned At Female [facility] Functional Status Date Assessment Result Facility 12-19-2024 Are you deaf, or do you have serious difficulty hearing No 12/19/2024 3:09 PM Theresa Gonzales RN No [facility] 12-19-2024 Are you blind, or do you have serious difficulty seeing, even when wearing glasses No 12/19/2024 3:09 PM Theresa Gonzales RN No [facility] 12-19-2024 Do you have serious difficulty walking or climbing stairs Yes 12/19/2024 3:09 PM Theresa Gonzales RN Yes [facility] 12-19-2024 Do you have difficul ty dressing or bathing Yes 12/19/2024 3:09 PM Theresa Gonzales, HILDA Yes [facility] 12-19-2024 Because of a physica l, mental, or emotional condition, do you have difficulty doing errands alone such as visiting a physician's office or shopping Yes 12/19/2024 3:09 PM Theresa Gonzales, HILDA Yes [facility] 07-30-2018 Are you deaf, or do you have serious difficulty hearing No 07/30/2018 5:50 PM Miranda Castro RN No [facility] 07-30-2018 Are you blind, or do you have serious difficulty seeing, even when wearing glasses No 07/30/2018 5:50 PM Miranda Castro, HILDA No [facility] 07-30-2018 Do you have serious difficulty walking or climbing stairs Yes 07/30/2018 5:50 PM Miranda Castro, HILDA Yes [facility] 07-30-2018 Do you have difficul ty dressing or bathing No 07/30/2018 5:50 PM Miranda Castro RN No [facility] 07-30-2018 Because of a physica l, mental, or emotional condition, do you have difficulty doing errands alone such as visiting a physician's office or shopping No 07/30/2018 5:50 PM Miranda Castro RN No [facility] Mental Status Date Assessment Result Facility 12-19-2024 Because of a physica l, mental, or emotional condition, do you have serious difficulty concentrating, remembering, or making decisions Yes 12/19/2024 3:09 PM RONYT Theresa Gonzales RN Yes [facility] 07-30-2018 Because of a physica l, mental, or emotional condition, do you have serious difficulty concentrating, remembering, or making decisions No 07/30/2018 5:50 PM Miranda Castro RN No [facility] Clinical Notes 08-25-2018 to 03-30-2025 Note Date & Type Note Facility 03-30-2025 Evaluation note Diagnosis Onset Date Resolution Compression fracture of T11 vertebra acute March 30 1:26pm 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 Chey Kumar MD Status:R EG ER Location: ED HPI HPI - GI History of Present Illness Chief Complaint: Constipation Narrative Narrative: 84-year-old female presents from [facility] with constipation for the last [...] bowel movement butis unable to do so. [facility] Medical History History of fractured vertebra Polio [...] fecal impaction in the rectum Reading Location: [facility] Discharge Plan Triage Chief Complaint: Constipation ED [...] a day. Continue your senna. Print Language: Kyrgyz Disposition Disposition: Home, Self Care What to do if you have Problems For any increased pain, shortness of breath, bleeding, nausea or vomiting, chestpain, or any unexpected problems, contact your Primary Care Provider. Call [facility] ([phone]) or report tothe closest Emergency Room. Call 911 if necessary. 03/25/25 1903 Cosigner Signature (if applicable): CC: Dr. Chey Kumar MD ~ Signed [facility]08-23-2025 Radiology Diagnostic study note [facility] Imaging Services [address] [place], [place] [address] Abd Decub and/or Erect(Portabl MR#: [id number] Acct: [id number] Name: TENA CANNON Rep #: [id number] : 1940 F 84 From: Pet er Peer DO PCP: Dr. Chey Kumar MD Status: P RE ER Study:Abd Decub and/or Erect(Portabl Date of Exam: 03/25/25 Exam# [id number] Ordering Dr: Vicente Leon MD PROCEDURE: ABD DECUB AND/OR ERECT(PORTABLE 03/25/2025 REASON FOR EXAM: CONSTIPATION TECHNIQUE: ABD DECUB AND/OR ERECT(PORTABLE COMPARISON: December 08, 2024 CT FINDINGS: Bowel gas: Nonobstructing nonspecific bowel-gas pattern. Krzb-ff-yrogeroi fecalload consistent withconstipation. Calcifications: No suspicious calcifications. Bones: Degenerative changes of the lumbar spine. Kyphoplasties cement in L3. Other: Cholecystectomy clips in the gallbladder fossa. Pronounced left convexity scoliosis of the thoracolumbar spine RAD/Abd Decub and/or Erect(Portabl IMPRESSION: Possible fecal impaction in the rectum [facility] CC: Dr. Vicente Leon MD; Dr. Chey Kumar MD ~ Certified Ophthalmic Technician: Signed [facility]08-23-2025 Discharge summary Author Vicente Leon [facility] Note Date/Time March 25, 2025 7: 03pm [facility] Medical Records Department [address] [place] [address] Emergency Department Summary 03/25/25 MR#: [id number] Acct: [id number] Name: TENA CANNON Rep #:[id number] : 1940 84 From: Vicente Leon MD PCP: Dr. Chey Kumar MD Status:R EG ER Location: ED HPI HPI - GI History of Present Illness Chief Complaint: Constipation Narrative Narrative: 84-year-old female presents from [facility] with constipation for the last [...] bowel movement butis unable to do so. [facility] Medical History History of fractured vertebra Polio [...] fecal impaction in the rectum Reading Location: [facility] Discharge Plan Triage Chief Complaint: Constipation ED [...] a day. Continue your senna. Print Language: Kyrgyz Disposition Disposition: Home, Self Care What to do if you have Problems For any increased pain, shortness of breath, bleeding, nausea or vomiting, chestpain, or any unexpected problems, contact your Primary Care Provider. Call [facility] ([phone]) or report to the closest Emergency Room. Call 911 if necessary. 03/25/251902 <Electronically signed by Vicente Leon MD> Cosigner Signature (if applicable): CC: Dr. Chey Kumar MD ~ Signed [facility] Work Phone: 1(935) 456-465608-20-2025 Telephone encounter Note* Telephone Encounter - Norma Long - 03/22/2025 4:24 PM EDT Tena has her daughter calling for information to request medical records request for insurance [employer]. Fax and phone number was provided Patient has been identified by name and birthdate. Person calling: daughter: Juan Call patient at: on cell [phone] (home) [phone] (cell) Was an appointment scheduled: No Closing statement: Results or non-symptom based questions: Thank you for calling [facility], your call will be returned within the next business day. Norma Monroe [facility]08-20-2025 Miscellaneous Notes* Telephone Encounter - Norma Long - 03/22/2025 4:24 PM EDT Tena has her daughter calling for information to request medical records request for [facility]. Fax and phone number was provided Patient has been identified by name and birthdate. Person calling: daughter: Juan Call patient at: on cell [phone] (home) [phone] (cell) Was an appointment scheduled: No Closing statement: Results or non-symptom based questions: Thank you for calling [facility], your call will be returned within the next business day. Norma Monroe documented in this encounterVeterans Health Administration07-15-2025 Telephone encounter Note * Telephone Encounter - Yandy Cruz LPN - 02/14/2025 9:44 AM EDT Called [facility], patient on [facility]. Spoke with LOBO Soto. Reports patient had been transferred hall. LOBO Soto informed of orders and she will update facility provider. Yandy Cruz LPN [facility]07-15-2025 Miscellaneous Notes* Telephone Encounter - Yanyd Cruz LPN - 02/14/2025 9:44 AM EDT Called [facility], patient on [facility]. Spoke with LOBO Soto. Reports patient had been transferred hall. LOBO Soto informed of orders and she will update facility provider. Yandy Cruz LPN * Telephone Encounter - Yandy Cruz LPN - 02/10/2025 9:36 AM EDT Faxed order and results to [facility]. Yandy Cruz LPN * Telephone Encounter - Yandy Cruz LPN - 02/10/2025 9:34 AM EDT Images from the original note were not included. Order Audit [place]: sulfamethoxazole-trimethoprim (BACTRIM DS) 800-160 mg per tablet [[id number]] Original entry by Marilyn Santos PA-C 02/09/2025 [...] start bactrim. Thanks Son documented in this encounterVeter[facility]07-11-2025 Telephone encounter Note * Telephone Encounter - Yandy Cruz LPN - 02/10/2025 9:36 AM EDT Faxed order and results to [facility]. Yandy Cruz LPN [facility]07-11-2025 Telephone encounter Note* Telephone Encounter - Yandy Cruz LPN - 02/10/2025 9:34 AM EDT Images from the original note were not included. Order [facility] [place]: sulfamethoxazole-trimethoprim (BACTRIM DS) 800-160 mg per tablet [[id number]] Original entry by Marilyn Santos PA-C 02/09/2025 [...] Diagnoses: -- Pharmacy Associated Diagnoses: -- Dates [facility]07-11-2025 Telephone encounter Note* Telephone Encounter - Yandy Cruz LPN - 02/10/2025 9:26 AM EDT Called patient. No answer- left message to call clinic for message. Yandy Cruz LPN [facility]07-11-2025 Telephone encounter Note* Telephone Encounter - Yandy Cruz LPN - 02/10/2025 9:24 AM EDT ----- Message from Marilyn Santos PA-C sent at 02/09/2025 11:51 AM EDT ----- Regarding: urine culture is positive Please tell her the urine culture is positive and to start bactrim. Edward Cline [facility]07-09-2025 Telephone encounter Note* Telephone Encounter - Yandy Cruz LPN - 02/08/2025 8:36 AM EDT Faxed urology office notes to facility. Yandy Cruz LPN [facility]07-09-2025 Miscellaneous Notes* Telephone Encounter - Yandy Cruz LPN - 02/08/2025 8:36 AM EDT Faxed urology office notes to facility. Yandy Cruz LPN * Telephone Encounter - Yandy Cruz LPN - 02/08/2025 8:34 AM EDT Called [facility] to obtain fax number. Spoke with LOBO Burk on [facility] (Transition of Care). Fax number is . Yandy Cruz LPN documented in this encounterVeterans Health Administration07-09-2025 Telephone encounter Note * Telephone Encounter - Yandy Cruz LPN - 02/08/2025 8:34 AM EDT Called [facility] to obtain fax number. Spoke with LOBO uBrk on [facility] (Transition of Care). Fax number is . Yandy Cruz LPN [facility]07-08-2025 NoteHNO ID: [id number] Author: NARCISO SHERMAN PA-C Service: ? Author Type: Physician Remotely Piloted Vehicle Controller Type: Progress Notes Filed: 02/07/2025 11:35 Note Text: [facility] PATIENT CLINIC NOTE (F) Note was generated by [employer] and edited as appropriate SERVICE DATE: [...] 0.96 mg/dL Final MEDICATIONS: dextran 70-hypromellose (ARTIFICIAL TEARS,[id number],) 0.1-0.3 % ophthalmic solution Use 1 drop in both eyes two times a day. lidocaine (ASPERFLEX, LIDOCAINE,) 4 % patch Apply 1 application as directed once daily. Apply to lower back, on for twelve hours, off for twelve hours. igqythki-edwt-zmd1-C-lety-bosw (OSTEO BI-FLEX TRIPLE STRENGTH) 750 mg-644 mg- [...] Use 1 Drop i (more content not included)...[facility]07-08-2025 History of Present illness Narrative* Narciso Sherman PA-C - 02/07/2025 10:59 AM EDT Images from the original note were not included. [facility] PATIENT CLINIC NOTE (F) Note was generated by [employer] and edited as appropriate SERVICE DATE: [...] 0.96 mg/dL Final MEDICATIONS: dextran 70-hypromellose (ARTIFICIAL TEARS,[id number],) 0.1-0.3 % ophthalmic solution Use 1 drop in both eyes two times a day. lidocaine (ASPERFLEX, LIDOCAINE,) 4 % patch Apply 1 application as directed once daily. Apply to lower back, on for twelve hours, off for twelve hours. ogmhunfp-pwaa-gdj0-C-lety-bosw (OSTEO BI-FLEX TRIPLE STRENGTH) 750 mg-644 mg- [...] alcohol (LIQUID TEARS OPHTHALMIC) Use in eyes. rutin/hesp/bioflav/C/jcdhhu019 (BIOFLEX ORAL) Take 1 capsule by mouth [...] - Recent hospitalization on December 15 at [place] due to a fall resulting in a [...] if you experience problems. MONICA Concepcion, STANTON, GENE documented in this encounterVeterans Health Administration06-09-2025 NoteHNO ID: [id number] Author: LIONEL JOINER MA Service: ? Author Type: Fitting Room Attendant Type: Progress Notes Filed: 01/09/2025 08:50 Note [...] Lionel Joiner MA January 09, 2025 7:10 [facility]06-09-2025 History of Present illness Narrative* Lionel Joiner [...] 09, 2025 7:10 AM documented in this encounterVeterans Health Administration06-09-2025 NotePatient Outreach (NETNAV) TENA CANNON ([id number]) 1940 F Date Time Provider Department 01/09/25 LIONEL JOINER NETBEA During your visit today, we recorded the following information about you: Lionel Joiner MA 01/09/2025 8:50 AM Signed POPULATION HEALTH NAVIGATION OUTREACH Action/ Patient is on [employer] Work[employer] list for [...] Visit: Population Health Navigation Outreach [3910] [facility] as of 01/09/2025 - lactulose 20 [...] (LIQUID TEARS OPHTHALMIC) Use in eyes. - rutin/hesp/bioflav/C/bkowaj810 (BIOFLEX ORAL) Take 1 capsule by mouth [...] poliomyelitis [B91] 05/12/2005 [employer] (more content not included)...[facility]05-19-2025 Note HNO ID: [id number] Author: RACHEL RODRIGEZ RN Service: Care Management Author Type: Registered Nurse Type: Care Mgt Progress Note Filed: 12/19/2024 13:56 Note Text: CARE MANAGEMENT DISCHARGE NOTE SERVICE DATE: December 19, 2024 SERVICE TIME: 1:47 PM Discharge Order written for today. Discharge: Shelter Facility SNF: [facility] - - Facility confirms they have insurance auth and can accept patient. HILDA ROMO informed Katiuska Jacob from the [facility]. SNF updated on discharge today and transport time per [facility]. [facility] Transport Scheduled for today at 3:00PM - Trip Number [id number] Transport envelope on chart. HILDA ROMO updated patient at bedside and daughter Joanne by phone on discharge plan and transport time. Nurse: Theresa Vargas RN updated on discharge plan for today. Admission Date: 12/12/2024 LOS: 3 days Discharge Arrangement Discharge Arrangement: Shelter Facility Provider Name: SNF: [facility] - Transportation Arrangements Transportation Arrangements: Ambulance Transportation Agency and Phone #:: [facility] [phone] Date of Trip: 12/19/24 (Trip Number [id number]) Time of Trip: 1500 Type of Service: BLS Non-emergency Is Patient Medicaid Pending?: No Was transportation financial coverage discussed with family?: Patient, Family (Daughter: Joanne Bazzi - ) Food Photographer Location: [place] Destination: SNF: [facility] - Financial Care Management Responsibility: None Handoff Communication: Handoff to: Other Caregiver, Primary Care Physician Primary Care Physician Name/Phone: PCP: Sahra Guy MD - Other Caregiver Name/Phone: SNF: [facility] - Additional Information: Discharge Information Row Name ED to Hosp-Admission (Current) from 12/12/2024 in [facility] Follow-Up Appointment Provider Name PCP: Jaime Guy MD - Shelter Facility Agency SNF: [facility] - SIGNATURE: Rachel Rodrigez RN PATIENT NAME: Tena Cannon DATE: December 19, 2024 TIME: 1:47 PMSt[address] [facility] HospitalMnzxyhwu43-11-9254 NoteHNO ID: [id number] Author: RACHEL RODRIGEZ RN Service: Care Management Author Type: Registered Nurse Type: Care Mgt Progress Note Filed: 12/19/2024 13:38 Note Text: CARE MANAGEMENT PROGRESS NOTE SERVICE DATE: 12/19/2024 SERVICE TIME: 11:41 AM LOS: 3 days Discharge Plan: Shelter Facility. SNF: [facility] - Able to Accept: They note they have insurance authorization to accept. [facility] completed [place] [address] [facility] - Document ID : [id number]. Dr Lopez updated CM: he spoke with patient and daughter and is planning to discharge patient today. RN DEMETRIUS met with patient at bedside to discuss discharge plan for today. Patient confirms she is agreeable with discharge to SNF: [facility] in [place] by medical transport. Patient informed that medical transport time scheduled for today at 3:00 PM. HILDA ROMO called and updated patients daughter Juan on discharge plan and transport time for today. Juan confirms she is agreeable with discharge plan. SNF [facility] updated in [facility] Transitions on Discharge today and Transport Time. Transport envelope on chart. SIGNATURE: Rachel Rodrigez RN PATIENT NAME: Tena Cannon DATE: December 19, 2024 TIME: 11:41 [facility] HospitalDyqqduhy89-41-3380 NoteHNO ID: [id number] Author: MORIAH LOPEZ MD Service: Hospital Medicine [...] at 6 pm that he spoke with [facility] neurosurgeon converting operator who said that patient isn't a surgical [...] Noted Thoracic compression fracture, closed, initial encounter ([facility]) 12/16/2024 Obesity, Class I, BMI 30-34.9 12/12/2024 Low back pain 12/12/2024 Generalized weakness 07/29/2018 Obstructive sleep apnea on CPAP 07/14/2017 Overview Note: DME--[employer]--PH # [phone]---FX # [phone]. 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 Will Begin Precert. Physician Certification [...] Cannon DATE: December 18, 2024 TIME: 9:54 [facility] HospitalThvmxosq69-55-1222 NoteHNO ID: [id number] Author: MORIAH LOPEZ MD Service: Hospital Medicine Author Type: Physician Type: Progress Notes Filed: 12/18/2024 08:45 Note Text: HOSPITAL MEDICINE PROGRESS NOTE History: Urine less cloudy per staff physical therapist. Exam: BP (!) 114/48 Pulse 74 Temp [...] at 6 pm that he spoke with [facility] neurosurgeon converting operator who said that patient isn't a surgical candidate based on her age and chronic functional status and high risk for surgical complications and non-healing. Will focus on pain meds and transition to SNF with brace. Constipation - continue miralax/senna docusate. Add mag citrate today. Trying to avoid NE meds given back pain. Urine retention - stop sanctura and add flomax. Continue [place] and do void trial at SNF after ~ 7 days of flomax. F/u with urology on DC. Tylenol, solumedrol, oxycodone, lido patch, kpad for compression fracture. F/u with spine surg. Med rdy for SNF. Active Hospital Problems Diagnosis Date Noted Thoracic compression fracture, closed, initial encounter ([facility]) 12/16/2024 Obesity, Class I, BMI 30-34.9 12/12/2024 Low back pain 12/12/2024 Generalized weakness 07/29/2018 Obstructive sleep apnea on CPAP 07/14/2017 Overview Note: DME--[employer]--PH # [phone]---FX # [phone]. 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 Service: ? Author Type: ? Type: Progress Notes Filed: 12/18/2024 02:53 Note Text: Epic Scheduled Downtime: 12/18/2024 1:00:00 AM to 12/18/2024 2:37:00 [facility] HospitalWacjierr63-59-7203 NoteHNO ID: [id number] Author: MORIAH LOPEZ MD Service: Hospital Medicine [...] at 6 pm that he spoke with [facility] neurosurgeon converting operator who said that patient isn't a surgical [...] Noted Thoracic compression fracture, closed, initial encounter ([facility]) 12/16/2024 Obesity, Class I, BMI 30-34.9 12/12/2024 Low back pain 12/12/2024 Generalized weakness 07/29/2018 Obstructive sleep apnea on CPAP 07/14/2017 Overview Note: DME--[employer]--PH # [phone]---FX # [phone]. 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 Service: ? Author Type: ? Type: Progress Notes Filed: 12/17/2024 03:45 Note Text: Epic Scheduled Downtime: 12/17/2024 1:00:00 AM to 12/17/2024 3:39:00 [facility] HospitalItogqsal99-70-1152 NoteHNO ID: [id number] Author: RACHEL RODRIGEZ, HILDA Service: Care Management Author Type: Registered Nurse Type: Care Mgt Progress Note Filed: 12/16/2024 14:42 Note Text: CARE MANAGEMENT PROGRESS NOTE SERVICE DATE: 12/16/2024 SERVICE TIME: 2:28 PM LOS: 0 days 5/16/25 PT recommended SNF and 12/16/24 OT recommended SNF. SNF Choice: [facility]: Pending. Referral updated in [facility] Transitions and Voice Message left to inform Kamini in Admissions [phone]. Discharge Plan: Shelter Facility - Pending Acceptance and Insurance Authorization/Precert. [...] Cannon DATE: December 16, 2024 TIME: 2:28 PMSt[address] [facility] HospitalFmomxdlu15-06-9579 NoteHNO ID: [id number] Author: GEORGINA RICHARDSON MD Service: Hospital Medicine Author Type: Physician Type: Progress Notes Filed: 12/16/2024 14:30 Note Text: DEPARTMENT OF HOSPITAL MEDICINE PROGRESS NOTE SERVICE DATE: 12/16/2024 SERVICE TIME: 2:23 PM Hospital Medicine/Primary Attending: Georgina Richardson MD NIGHT AND WEEKEND COVERAGE: [place] COVERAGE: Days: [phone], please page attending physician. Nights: [phone], please page [place] Hospitalist Night coverage pager [phone]. Subjective INTERVAL HPI: Patient is still having [...] 22 Gauge 2 days Peripheral 12/14/24 1257 [facility] Short Right Forearm 22 Gauge 2 [...] not displayed. Recent Labs 12/16/24 1048 12/13/24 0512/12/24 1257 12/10/24 0432 12/09/24 0825 12/08/24 1630 [...] 30-34.9 Thoracic compression fracture, closed, initial encounter ([facility]) HOSPITAL COURSE: Tena Cannon is a 84 year old female presented with past medical his (more content not included)...[facility] HospitalNwmwvlnv40-37-6002 NoteHNO ID: [id number] Author: GEORGINA RICHARDSON MD Service: Care Management [...] 30-34.9 Thoracic compression fracture, closed, initial encounter ([facility]) Resolved Problems: Sleep apnea Attending Physician: Georgina Richardson, [facility] CenterBeqfiggy71-83-1315 NoteHNO ID: [id number] Author: GEORGINA RICHARDSON MD Service: Hospital Medicine Author Type: Physician Type: Progress Notes Filed: 12/15/2024 11:49 Note Text: DEPARTMENT OF HOSPITAL MEDICINE PROGRESS NOTE SERVICE DATE: 12/15/2024 SERVICE TIME: 11:47 AM Hospital Medicine/Primary Attending: Georgina Richardson MD NIGHT AND WEEKEND COVERAGE: [place] COVERAGE: Days: [phone], please page attending physician. Nights: [phone], please page [place] Hospitalist Night coverage pager [phone]. Subjective INTERVAL HPI: Patient is still having [...] 22 Gauge 1 day Peripheral 12/14/24 1257 [facility] Short Right Forearm 22 Gauge <1 day Drain Name Duration External Collection Device 12/12/24 1730 2 days Reviewed lines and needs to be continued: REASONS: Intravenous fluids DATA: Diagnostic tests reviewed for today's visit: Recent Labs 12/13/2452412/12/24125612/10/2443112/09/24 0812/08/24 1630 WBC 10.47 12.50* 7.99 < [...] interval not displayed. Recent Labs 12/13/2452412/12/24 1257 12/10/242 12/09/24 0825 12/08/24 1630 GLUC 101* 126* [...] apnea on CPAP Generaliz (more content not included)...[facility] HospitalTscwzuwy15-76-7312 NoteHNO ID: [id number] Author: RACHEL RODRIGEZ RN Service: Care Management [...] evaluation and recommendation: Pending Anticipated Discharge Plan: Shelter Facility Only SNF Choice Provided: [facility]: Pending Review of Therapy Evaluations and Insurance Authorization/Precert. Discharge Transportation: Medical Transport - COT Transport envelope on chart. Needs Prior to Discharge: To Be Determined, OT/PT Evaluation, Accepting Facility, Insurance Authorization, Precertification, Discharge Transportation, Equipment Delivery (Back Brace) CM Dept to Follow. SIGNATURE: Rachel Rodrigez RN PATIENT NAME: Tena Cannon DATE: December 15, 2024 TIME: 8:53 AMSt. Vincent HospitalVihswazw52-66-9506 NoteHNO ID: [id number] Author: GEORGINA RICHARDSON MD Service: Hospital Medicine Author Type: Physician Type: Progress Notes Filed: 12/14/2024 15:17 Note Text: DEPARTMENT OF HOSPITAL MEDICINE PROGRESS NOTE SERVICE DATE: 12/14/2024 SERVICE TIME: 3:15 PM Hospital Medicine/Primary Attending: Georgina Richardson MD NIGHT AND WEEKEND COVERAGE: [place] COVERAGE: Days: [phone], please page attending physician. Nights: [phone], please page [place] Hospitalist Night coverage pager [phone]. Subjective INTERVAL HPI: Patient is confused and [...] Peripheral 12/13/249 Short Left Forearm 22 Gauge <1 day Peripheral 12/14/24 1257 [facility] Short Right Forearm 22 Gauge <1 [...] Adjustment disorder with depress (more content not included)...[facility] 12-14-2024 NoteHNO ID: [id number] Author: CORRINE PETERSEN RN Service: Care Management [...] to discharged to SNF, referral out to [facility]. Per patient please share all medical information with her daughter Juan. CM will continue to follow. SIGNATURE: Corrine Petersen RN PATIENT NAME: Tena Cannon DATE: December 14, 2024 TIME: 2:22 PMSt[address] [facility] HospitalSezkdbqp25-62-2394 NoteHNO ID: [id number] Author: GEORGINA RICHARDSON MD Service: Hospital Medicine Author Type: Physician Type: Progress Notes Filed: 12/13/2024 12:50 Note Text: DEPARTMENT OF HOSPITAL MEDICINE PROGRESS NOTE SERVICE DATE: 12/13/2024 SERVICE TIME: 12:40 PM Hospital Medicine/Primary Attending: Georgina Richardson MD NIGHT AND WEEKEND COVERAGE: [place] COVERAGE: Days: [phone], please page attending physician. Nights: [phone], please page [place] Hospitalist Night coverage pager [phone]. Subjective INTERVAL HPI: Patient is little bit [...] Airways Line Name Duration Peripheral 12/12/24 1229 [facility] Short Right Forearm 20 Gauge 1 day Peripheral 12/12/24 1249 Right Arm 20 Gauge <1 day Drain Name Duration External Collection Device 12/12/24 1730 <1 day Reviewed lines and needs to be continued: REASONS: Intravenous fluids DATA: Diagnostic tests reviewed for today's visit: Recent Labs 12/13/2452412/12/24 1257 12/10/24 0432 12/09/24 0825 12/08/24 1630 [...] interval not displayed. Recent Labs 12/13/2452412/12/24 1257 12/10/24 0432 12/09/24 0825 12/08/24 1630 [...] 84 year o (more content not included)... [facility] HospitalLizwokxc67-67-9703 NoteHNO ID: [id number] Author: RACHEL RODRIGEZ RN Service: Care Management Author Type: Registered Nurse Type: Care Mgt Initial Assessment Filed: 12/13/2024 10:55 Note Text: CARE MANAGEMENT: ASSESSMENT AND DISCHARGE PLAN SERVICE DATE: December 13, 2024 SERVICE TIME: 10:20 AM developer designer spoke with patient at bedside to complete Care Management Assessment. Introduction made and role of Care Management explained. PCP: Sahra Guy MD - Patient confirmed Primary Contact: Primary Emergency Contact: Juan Bazzi Relation: Daughter Admission Status: Observation Insurance Provider: [facility] MEDICARE PPO Discharge Planning requested by: Per Department Practice Potential Transition Plans (Shelter Facility) Advance Directives Current Advance Directive: Living Will In Chart: Yes Current Living Arrangements and Support Lives with: Alone (Assisted Living Facility: [facility]) Type of Residence: Assisted Living Facility Care Facility Name: Assisted Living Facility: [facility] Support: Family members How do you [...] she usually transfers herself with standby assist. [place] Explained: [place] Given: Yes (Patient confirms she is agreeable to a SNF referral to [facility] Level of Care Discussed: Shelter Facility Are you interested in bedside delivery of your medications? Service Not Available Discharge Pharmacy Preference[facility] [place] Discharge Planning Participant(s): Patient Transport at Discharge: Transportation Arrangements: Ambulance Transportation Agency and Phone #:: [facility] [phone] Type of Service: BLS Non-emergency Is Patient Medicaid Pending?: No Was transportation financial coverage discussed with family?: Patient (Patient has been informed that she is responsible for all out of pocket costs for medical transportation at discharge.) Food Photographer Location: [place] Financial Care Management Responsibility: None Needs Prior to Discharge: Needs Prior to Discharge: To Be Determined, OT/PT Evaluation, Accepting Facility, Insurance Authorization, Precertification, Discharge Transportation Post-Acute Discharge Plan: From Assisted Living Facility: [facility]. Patient reports she uses manual wheelchair or electric wheelchair for mobility. Patient reports she is able to transfer herself with one standby assist at baseline. Patient reports she manages her own medications and her meals are provided by the assisted living facility. Patient is agreeable to SNF: [facility] and states her daughter has talked with them. Referral sent in [facility] Transitions. Patient will need PT AND OT [...] Cannon DATE: December 13, 2024 TIME: 10:20 [facility] HospitalYhihirwa21-49-9254 NoteHNO ID: [id number] Author: CORRINE PETERSEN RN Service: Care Management Author Type: Registered Nurse Type: Care Mgt Initial Assessment Filed: 12/09/2024 16:07 Note Text: CARE MANAGEMENT: ASSESSMENT AND DISCHARGE PLAN SERVICE DATE: December 09, 2024 SERVICE TIME: 4:03 PM PCP: Sahra Guy MD (confirmed) Primary Contact: Extended Emergency Contact Information Primary Emergency Contact: Juan Bazzi Relation: Daughter Admission Status: Observation Insurance Provider: [employer] PPO Discharge Planning requested by: Per [...] stairs at home?: No Care Facility Name: [facility] Support: Children, Family members How do you manage to accomplish the following: Independent: Bathe/Shower, Dress, Going to the bathroom, Medication Management Needs Assistance: Ambulation, Meals/Meal Prep Dependent: Transportation to appointments/community Current Services/Equipment Current Post-Acute Service(s): DME Current DME Type: Shower seat, Wheelchair-electric, Rollator Scooter Discharge Planning Patient Goal(s): General wellness, Be able to go home [place] Explained: [place] Given: No Reason Not Given: [...] Arrangements: Ambulance Transportation Agency and Phone #:: [facility] [phone] Needs Prior to Discharge: Needs Prior to Discharge: Other: See Comment (Pain control, medical clearance) Post-Acute Discharge Plan: Return to Assisted Living Met with patient at bedside, introduced self/role of TCC. Patient presented to [place] ED c/o lower back/flank plan. Patient admitted to Observation for further evaluation and treatment. Patient lives at [facility]. She reports being independent with most [...] Cannon DATE: December 09, 2024 TIME: 4:02 PMSt[address] [facility] HospitalLkpqtwri75-44-4945 Telephone encounter Note* Telephone Encounter - [place] Tete Boucher - 12/09/2024 2:29 PM EDT Nunoanne, daughter called and stated lidocaine patches are denied and the insurance has faxed an appeal form to our office. She is requesting this is completed. Please call [employer] [phone] at 8-5pm central time. Please follow up with the daughter. [facility]05-09-2025 Miscellaneous Notes* Telephone Encounter - [place] Tete Boucher - 12/09/2024 2:29 PM EDT jj Martinez called and stated lidocaine patches are denied and the insurance has faxed an appeal form to our office. She is requesting this is completed. Please call [employer] [phone] at 8-5pm central time. Please follow up with the daughter. * Telephone Encounter - Adonay Marquez LPN - 12/08/2024 1:33 PM EDT PA submitted. Response pending. * Telephone Encounter - Norma Long - 12/08/2024 10:19 AM EDT Patient Juan ochoa is calling Sahra Guy MD today to request a prior authorization forthe lidocaine 5% per pharmacy [facility] [place] [address] Please call daughter with updates on this PA Patient has been identified by name and birthdate. Person calling: daughter: Juan Call patient daughter Juan [phone] (home) [phone] (cell) Was an appointment scheduled: No Closing statement: Prior Auth needed for the Lidocaine Norma Monroe documented in this encounterVeterans Health Administration05-09-2025 NoteHNO ID: [id number] Author: ZAYNAB VALENCIA DO Service: Hospital Medicine Author Type: Physician Type: Progress Notes Filed: 12/10/2024 02:15 Note Text: DEPARTMENT OF HOSPITAL MEDICINE PROGRESS NOTE SERVICE DATE: 12/09/2024 SERVICE TIME: 2:14 PM Hospital Medicine/Primary Attending: Zaynab Valencia DO NIGHT AND WEEKEND COVERAGE: [place] COVERAGE: Days: [phone], please page attending physician. Nights: [phone], please page [place] Hospitalist Night coverage pager [phone]. Subjective INTERVAL HPI: denies any chest pain [...] and Airways Line Duration Peripheral 12/08/24 1631 [facility] Left Antecubital 20 Gauge <1 day DATA: Diagnostic tests reviewed for today's visit: Most recent labs Most recent imaging Assessment/Plan Problem List Assessment AND Plan Frequent falls Low back pain Restless legs syndrome (RLS) Post-polio syndrome (HCC) Obstructive sleep apnea on CPAP Fall at shelter BMI 37.0-37.9, adult Dysphagia HOSPITAL COURSE: Tena [...] -fall from wheelchair with (more content not included)...[facility] 12-09-2024 NoteHNO ID: [id number] Author: HUONG SANZ, RN Service: Nursing Author Type: Registered Nurse Type: Nursing Progress Note Filed: 12/09/2024 02:31 Note Text: 0000 Spoke to respiratory therapist,patient refused CPAP for tonight. [address] [facility] HospitalPrzjlvhp19-00-2631 MbgtVQNP-YSX-6 (AGENT OF COVID-19) RNA: Not detected INFLUENZA A RNA: Not detected INFLUENZA B RNA: Not detected RESPIRATORY SYNCYTIAL VIRUS (RSV) RNA: Not detectedSt. Vincent HospitalComment on above:Performed By: #### [id number] ####[place] LABORATORYCLIA [id number] [place] [address] [facility] BXCOVYN24-13-3776 Telephone encounter Note* Telephone Encounter - Sugey Stover - 12/08/2024 2:01 PM EDT Tena [...] is headed home to take Tena to [place] ER since she has other symptoms as well. [facility]05-08-2025 Miscellaneous Notes* Telephone Encounter - Sugey Stover - 12/08/2024 2:01 PM EDT Tena [...] is headed home to take Tena to [place] ER since she has other symptoms as [...] [facility] Please advise. * Telephone Encounter - Malika [...] pain with left-sided sciatica M54.42 CONSULT TO [facility]/OCC MED Sahra Guy MD * Telephone Encounter - Wanda Neely RN - 12/02/2024 5:02 PM EDT Answer Assessment - Initial Assessment Questions Requesting a consult to Orthopedics The rehab didn't do anything for the Sciatica And they recommended a cortisone injection. Protocols used: Information Only Call - No Rjrgyi-HRDXG-FL documented in this encounterVeterans Health Administration05-08-2025 Telephone encounter Note * Telephone Encounter - Corrine Lopez RN - 12/08/2024 1:45 PM EDT Daughter Juan left VM, inquiring regarding previous call. Called and spoke with Anjanaalvin who states she just listened to VM and will be heading back to pt's home to notify EMS for pt to be evaluated in ED. Corrine Lopez RN [facility]05-08-2025 Miscellaneous Notes* Telephone Encounter - Corrine Lopez RN - 12/08/2024 1:45 PM EDT Jj Martinez left VM, inquiring regarding previous call. Called and spoke with Juan who states she just listened to VM and will be heading back to pt's home to notify EMS for pt to be evaluated in ED. Corrine Lopez RN * Telephone Encounter - Corrine Lopez RN - 12/08/2024 1:30 PM EDT Called Juan at [phone]-left detailed message on identified VM with PCP message below. Called patient at [phone] -no answer. VM not set up-could not [...] or weak to the triager Protocols used: [id number] * Telephone Encounter - Alicia Sultana - 12/08/2024 10:55 AM EDT Patient's daughter Juan is calling Sahra Guy MD today with concern regarding patient having nausea and barely eating Patient has been identified by name and birthdate. Duration of symptoms: 5 days Please return call to daughter Juan [phone] Was an appointment scheduled: No Closing statement: Symptom Call: Thank you for calling [facility], your call is very important. A nurse will call in approximately 2-4 hours during business hours. If this is an emergency, please contact 911. Alicia Sultana documented in this encounterVeterans Health Administration05-08-2025 Miscellaneous Notes* Telephone Encounter - Adonay Marquez LPN - 12/08/2024 1:34 PM EDT Please see triage encounter 12/08/24 * Telephone Encounter - Adonay Marquez LPN - 12/07/2024 5:03 PM EDT Called and spoke with pt and daughter Juan. Stated they will cone picker medication. Pt would like to know [...] SAHRA GUY Pharmacy Information Pharmacy Address Telephone [facility]/pharmacy #[id number] [place] [address] Sahra Guy MD * Telephone Encounter - Sugey Stover - 12/07/2024 3:18 PM EDT Patient's daughter is calling that the Rx Lidocaine is not covered for the 4% but the 5% is. She isasking if this can be re-ordered as such and sent to [facility] while she is in the [facility] today. Please call Juan if the Rx is being changed/sent. [phone] documented in this encounterVeterans Health Administration05-08-2025 Telephone encounter Note * Telephone Encounter - Adonay Marquez LPN - 12/08/2024 1:34 PM EDT Please see triage encounter 12/08/24 [facility]05-08-2025 Telephone encounter Note* Telephone Encounter - Adonay Marquez LPN - 12/08/2024 1:33 PM EDT PA submitted. Response pending. [facility]05-08-2025 Telephone encounter Note* Telephone Encounter - Corrine Lopez RN - 12/08/2024 1:30 PM EDT Called Anjanae at [phone]-left detailed message on identified VM with PCP message below. Called patient at [phone] -no answer. VM not set up-could not leave message. Corrine Lopez RN [facility]05-08-2025 Telephone encounter Note* Telephone Encounter - Sahra Guy MD - 12/08/2024 1:20 PM EDT She should go to ER by ambulance. May have kidney infection causing back pain, sounds like she is dehydrated. Sahra Guy MD [facility]05-08-2025 Telephone encounter Note* Telephone Encounter - Alondra [...] or weak to the triager Protocols used: Qesnyw-QIFLP-RI [facility]05-08-2025 Telephone encounter Note* Telephone Encounter - Alicia Sultana - 12/08/2024 10:55 AM EDT Patient's daughter Juan is calling Sahra Guy MD today with concern regarding patient having nausea and barely eating Patient has been identified by name and birthdate. Duration of symptoms: 5 days Please return call to daughter Juan [phone] Was an appointment scheduled: No Closing statement: Symptom Call: Thank you for calling [facility], your call is very important. A nurse will call in approximately 2-4 hours during business hours. If this is an emergency, please contact 911. Alicia Sultana [facility]05-08-2025 Telephone encounter Note* Telephone Encounter - Norma Long - 12/08/2024 10:19 AM EDT Patient daughterJuan is calling Sahra Guy MD today to request a prior authorization forthe lidocaine 5% per pharmacy [facility] in [place] on [address] Please call daughter with updates on this PA Patient has been identified by name and birthdate. Person calling: daughter: Juan Call patient daughter Juan [phone] (home) [phone] (cell) Was an appointment scheduled: No Closing statement: Prior Auth needed for the Lidocaine Norma Mornoe [facility]05-07-2025 Telephone encounter Note* Telephone Encounter - Adonay Marquez LPN - 12/07/2024 5:03 PM EDT Called and spoke with pt and daughter Juan. Stated they will cone picker medication. Pt would like to know how long it will take for muscle to recover. Please advise. [facility]05-07-2025 Telephone encounter Note* Telephone Encounter - Sahra Guy MD - 12/07/2024 4:52 PM EDT The following approved medication requests have been transmitted electronically. Requested Prescriptions Signed Prescriptions Disp Refills lidocaine (LIDODERM) 5 % 30 patch 2 Sig: Apply 1 patch as directed once daily. REMOVE AFTER 12 HOURS. Authorizing Provider: SAHRA GUY Pharmacy Information Pharmacy Address Telephone [id number] [place] [id number] Sahra Guy MD [facility]05-07-2025 Telephone encounter Note* Telephone Encounter - Sugey Stover - 12/07/2024 3:18 PM EDT Patient's daughter is calling that the Rx Lidocaine is not covered for the 4% but the 5% is. She isasking if this can be re-ordered as such and sent to [facility] while she is in the [facility] today. Please call Juan if the Rx is being changed/sent. [phone] [facility]05-06-2025 Telephone encounter Note* Telephone Encounter - Adonay Marquez LPN - 12/06/2024 5:43 PM EDT Called and spoke with Nurse Anais. Anais is new but she believes that yes a mobile xray services comes.Faxed over xray orders and lidocaine order. Called and left VM with pt contact Juan. Called andnotified pt. [facility]05-06-2025 Telephone encounter Note* Telephone Encounter - Sahra Guy MD - 12/06/2024 5:19 PM EDT The following approved medication requests have been transmitted electronically. Requested Prescriptions Signed Prescriptions Disp Refills lidocaine HCL 4 % ptmd 60 patch 1 Sig: Apply to painful area once daily, remove after 12 hours Can they do a portable x ray at the facility ? Sahra Guy MD [facility]05-06-2025 Telephone encounter Note* Telephone Encounter - Torri [...] and will clear it.Please advise the patient. [facility]05-05-2025 Telephone encounter Note* Telephone Encounter - Adonay Marquez LPN - 12/05/2024 4:37 PM EDT Received request for orders [facility]ocaine [facility] Please advise. [facility]05-05-2025 Telephone encounter Note* Telephone Encounter - Malika Sheikh LPN - 12/05/2024 4:08 PM EDT Mailbox is full. No message left [facility]05-05-2025 Telephone encounter Note* Telephone Encounter - Sahra Guy MD - 12/05/2024 1:20 PM EDT Has she had the lumbar x rays? Order placed in Sep. Back issues handled through spine or pain managemtn department not regular ortho Encounter Diagnosis ICD-10-CM 1. Acute left-sided low back pain with left-sided sciatica M54.42 CONSULT TO MUSC/SPINE/OCC MED Sahra Guy MD [facility]05-02-2025 Telephone encounter Note* Telephone Encounter - Wanda Neely RN - 12/02/2024 5:02 PM EDT Answer Assessment - Initial Assessment Questions Requesting a consult to Orthopedics The rehab didn't do anything for the Sciatica And they recommended a cortisone injection. Protocols used: Information Only Call - No Pnmori-ONRVD-SM [facility] Work Phone: 1(192) 934-633204-30-2025 NoteHNO ID: [id number] Author: JOAQUIN CHILDRESS CPhT Service: ? Author Type: Carbide Powder Processor Type: Progress Notes Filed: 11/30/2024 09:12 Note [...] to be addressed Joaquin Childress CPhT [facility] History of Present illness Narrative* Joaquin Childress [...] concerns to be addressed Joaquin Childress CPhT [facility] Care Pharmacy Team documented in this encounterVeterans Health Administration04-30-2025 NotePatient Outreach (PHPOHE) TENA CANNON ([id number]) 1940 F Date Time Provider Department 11/30/24 SAHRA GUY PHPOHE During your visit today, we recorded the following information about you: Joaquin Childress CPhT 11/30/2024 9:12 AM Signed Patient is identified through a medication adherence outreach initiative based on pharmacy claims data from: [facility] Medication Adherence Category: Diabetes First Review Attribution [...] concerns to be addressed Joaquin Childress CPhT [facility] Pharmacy Team Allergies As of Date: 11/30/2024 [...] (LIQUID TEARS OPHTHALMIC) Use in eyes. 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 Placed in provider's inbox for review. Route to [place] for faxing [facility]03-24-2025 Miscellaneous Notes* Telephone Encounter - Malika Sheikh LPN - 10/24/2024 3:31 PM EDT Received 10/21/2024 from [facility]. Placed in provider's inbox for review. Route to [place] for faxing documented in this encounterVeterans Health Administration03-19-2025 Telephone encounter Note * Telephone Encounter - Adonay Marquez LPN - 10/19/2024 5:26 PM EDT Received orders from [facility]. Placed in provider's inbox for review. Route to [place] fax [facility]03-19-2025 Miscellaneous Notes* Telephone Encounter - Adonay Marquez LPN - 10/19/2024 5:26 PM EDT Received orders from [facility]. Placed in provider's inbox for review. Route to [place] fax documented in this encounterVeterans Health Administration03-12-2025 Telephone encounter Note * Telephone Encounter - Adonay Marquez LPN - 10/12/2024 4:27 PM EDT Verbal order given [facility]03-12-2025 Miscellaneous Notes* Telephone Encounter - Adonay Marquez LPN - 10/12/2024 4:27 PM EDT Verbal order given * Telephone Encounter - Leonid Leal APRN.CNP - 10/12/2024 4:17 PM EDT Yes, please give verbal order Leonid Leal APRN.ENVIRONMENTAL SOLUTIONS ENGINEER * Telephone Encounter - Cris Rascon - 10/12/2024 2:02 PM EDT Tena is calling Sahra Guy MD today with concern regarding PT Eval Physical therapy once a week for eight weeks. Patient has been identified by name and birthdate. Duration of symptoms: N/A Person calling: [facility] Physical therapy Closing statement: Results or non-symptom based questions: Thank you for calling [facility], your call will be returned within the next business day. Cris Boucher documented in this encounterVeterans Health Administration03-12-2025 Telephone encounter Note * Telephone Encounter - Leonid Leal APRN.CNP - 10/12/2024 4:17 PM EDT Yes, please give verbal order Leonid Leal APRN.CNP [facility]03-12-2025 Telephone encounter Note* Telephone Encounter - Cris Rascon - 10/12/2024 2:02 PM EDT Tena is calling Sahra Guy MD today with concern regarding PT Eval Physical therapy once a week for eight weeks. Patient has been identified by name and birthdate. Duration of symptoms: N/A Person calling: [facility] Physical therapy Closing statement: Results or non-symptom based questions: Thank you for calling [facility], your call will be returned within the next business day. Cris Boucher [facility]03-11-2025 Telephone encounter Note* Telephone Encounter - Malika Sheikh LPN - 10/11/2024 1:59 PM EDT Verbal order given to per Dr Guy's original order for OT. [facility]03-11-2025 Miscellaneous Notes* Telephone Encounter - Malika Sheikh LPN - 10/11/2024 1:59 PM EDT Verbal order given to per Dr Guy's original order for OT. * Telephone Encounter - Rachel Stacy - 10/11/2024 1:13 PM EDT Jonathon from [facility] is calling for a verbal order for patient's home health care physical therapy. documented in this encounterVeterans Health Administration03-11-2025 Telephone encounter Note * Telephone Encounter - Rachel Stacy - 10/11/2024 1:13 PM EDT Jonathon from [facility] is calling for a verbal order for patient's home health care physical therapy. [facility] Work Phone: [phone] Telephone encounter Note* Telephone Encounter - Malika Sheikh LPN - 10/11/2024 12:49 PM EDT Orders faxed. [facility]03-11-2025 Miscellaneous Notes* Telephone Encounter - Malika Sheikh LPN - 10/11/2024 12:49 PM EDT Orders faxed. 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 Muscle strain of lower leg, unspecified laterality, initial encounter S86.919A CONSULT TO PHYSICAL THERAPY CONSULT TO SOCIAL MEDIA SR STRATEGY MANAGER 3. Falls frequently R29.6 CONSULT TO SOCIAL MEDIA SR STRATEGY MANAGER Please fax order , does she know [...] calling: self Call patient at: at home [phone] (home) [phone] (cell) Was an appointment scheduled: No Closing statement: Results or non-symptom based questions: Thank you for calling [facility], your call will be returned within the next business day. Tete Boucher documented in this encounterVeterans Health Administration03-11-2025 Telephone encounter Note * Telephone Encounter - Ninfa Erwin RN - 10/11/2024 10:21 AM EDT Patient called and LVM on Nurse Triage line; [facility], phone number is [phone] [facility]03-10-2025 Telephone encounter Note* Telephone Encounter - Malika Sheikh LPN - 10/10/2024 3:51 PM EDT Patient will call back with name of therapy that goes to her facility [facility]03-10-2025 Telephone encounter Note* Telephone Encounter - Sahra Guy MD - 10/10/2024 2:07 PM EDT Encounter Diagnosis ICD-10-CM 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 Muscle strain of lower leg, unspecified laterality, initial encounter S86.919A CONSULT TO PHYSICAL THERAPY CONSULT TO SOCIAL MEDIA SR STRATEGY MANAGER 3. Falls frequently R29.6 CONSULT TO SOCIAL MEDIA SR STRATEGY MANAGER Please fax order , does she know which agency comes to her facility Sahra Guy MD [facility]03-06-2025 Telephone encounter Note* Telephone Encounter - Malika Sheikh LPN - 10/06/2024 4:02 PM EST Patient wanting an OT referral to educate and advise patient on ways not to fall in the bathroom. [facility]03-06-2025 Telephone encounter Note* Telephone Encounter - Sahra Guy MD - 10/06/2024 10:33 AM EST Generally speaking, physical therapy addresses lower extremity issue. Happy to initiate referral Therapy order placed. 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 Muscle strain of lower leg, unspecified laterality, initial encounter S86.919A CONSULT TO PHYSICAL THERAPY Fax to facility Sahra Guy MD [facility]03-06-2025 Telephone encounter Note* Telephone Encounter - Tete Melchor - 10/06/2024 [...] calling: self Call patient at: at home [phone] (home) [phone] (cell) Was an appointment scheduled: No Closing statement: Results or non-symptom based questions: Thank you for calling [facility], your call will be returned within the next business day. Tete Boucher [facility]02-24-2025 Telephone encounter Note* Telephone Encounter - Curtis Ruiz RN - 09/26/2024 5:22 PM EST Spoke to patient who was advised of provider's message and verbalized understanding. [facility]02-24-2025 Miscellaneous Notes* Telephone Encounter - Curtis [...] 7 days. Pharmacy Information Pharmacy Address Telephone [facility]/pharmacy #[id number] [place] [address] Sahra Guy MD * Telephone Encounter [...] rash) Radiates to toes Protocols used: Hip Ckcy-ZBDHC-JR * Telephone Encounter - [place] Tete Boucher - 09/23/2024 4:24 PM EST Tena is calling Sahra Guy MD today with left hip pain. It is radiating down to her toe; describes anterior pain. She is seeking medical advice. Please call today. Patient has been identified by name and birthdate. Duration of symptoms: N/A Person calling: self Call patient at: at home [phone] (home) [phone] (cell) Was an appointment scheduled: No Closing statement: Symptom Call: Thank you for calling [facility], your call is very important. A nurse will call in approximately 2-4 hours during business hours. If this is an emergency, please contact 911. Tete Bocuher documented in this encounterVeterans Health Administration02-24-2025 Telephone encounter Note * Telephone Encounter - [...] 7 days. Pharmacy Information Pharmacy Address Telephone [facility]/pharmacy #[id number] [place] [address] Sahra Guy MD [facility]02-24-2025 Telephone encounter Note* Telephone Encounter - Cris Rascon - 09/26/2024 2:02 PM EST Patient is calling back in asking if orders for xray were put in? Wants to know what kind of pain medication Dr. Guy would prescribe she is not wantiing to get something strong. Please give patient a call back. Cris Boucher [facility]02-24-2025 Telephone encounter Note* Telephone Encounter - Malika Sheikh LPN - 09/26/2024 10:23 AM EST LM for patient to call office. [facility]02-24-2025 Telephone encounter Note* Telephone Encounter - Sahra Guy MD - 09/26/2024 9:26 AM EST Does she need some pain meds? Sahra Guy MD [facility]02-24-2025 Telephone encounter Note* Telephone Encounter - Corrine [...] is interested in xray-asking for order. Corrine Lopez, HILDA Answer Assessment - Initial Assessment Questions 1. [...] rash) Radiates to toes Protocols used: Hip Werl-ARWVI-PA [facility]02-21-2025 Telephone encounter Note* Telephone Encounter - Tete Melchor - 09/23/2024 4:24 PM EST Tena is calling Sahra Guy MD today with left hip pain. It is radiating down to her toe; describes anterior pain. She is seeking medical advice. Please call today. Patient has been identified by name and birthdate. Duration of symptoms: N/A Person calling: self Call patient at: at home [phone] (home) [phone] (cell) Was an appointment scheduled: No Closing statement: Symptom Call: Thank you for calling [facility], your call is very important. A nurse will call in approximately 2-4 hours during business hours. If this is an emergency, please contact 911. Tete Boucher [facility]02-21-2025 Telephone encounter Note* Telephone Encounter - Malika Sheikh LPN - 09/23/2024 10:05 AM EST Received 09/23/2024 from [facility] Placed in provider's inbox for review. Route to [place] for faxing. [facility]02-21-2025 Miscellaneous Notes* Telephone Encounter - Malika Sheikh LPN - 09/23/2024 10:05 AM EST Received 09/23/2024 from [facility] Placed in provider's inbox for review. Route to [place] for faxing. documented in this encounterVeterans Health Administration02-14-2025 NoteHNO ID: [id number] Author: SAHRA GUY MD Service: ? Author [...] the record reflects my (more content not included)...[facility]02-14-2025 History of Present illness Narrative* Sahra Guy [...] 16, 2024 12:44 PM documented in this encounterCleveland [id number] Telephone encounter Note * Telephone Encounter - Sugey Stover - 09/09/2024 10:56 AM EST Patient called back regarding orders needed. Orders were faxed to : [facility] [phone] [facility]02-07-2025 Miscellaneous Notes* Telephone Encounter - Sugey Stover - 09/09/2024 10:56 AM EST Patient called back regarding orders needed. Orders were faxed to : [facility] [phone] * Telephone Encounter - Cris Rascon - 09/09/2024 10:45 AM EST Tena is calling Sahra Guy MD today with concern regarding Orders Patient is there to get Lab work. If you can please FAX lab orders to them. FAX [phone]. Patient has been identified by name and birthdate. Duration of symptoms: N/A Person calling: Daphnie Forte Was an appointment scheduled: No Closing statement: Results or non-symptom based questions: Thank you for calling [facility], your call will be returned within the next business day. Cris Hernandez Pss documented in this encounterVeterans Health Administration02-07-2025 Telephone encounter Note * Telephone Encounter - Cris Rascon - 09/09/2024 10:45 AM EST Tena is calling Sahra Guy MD today with concern regarding Orders Patient is there to get Lab work. If you can please FAX lab orders to them. FAX [phone]. Patient has been identified by name and birthdate. Duration of symptoms: N/A Person calling: Daphnie Forte Was an appointment scheduled: No Closing statement: Results or non-symptom based questions: Thank you for calling [facility], your call will be returned within the next business day. Cris Hernandez Pss [facility]02-04-2025 Telephone encounter Note* Telephone Encounter - Inga Castellano - 09/06/2024 11:37 AM EST Called and scheduled pt f/u. She wanted PCP to have results prior to appt so she is getting lab drawn in [place]. [facility]02-04-2025 Miscellaneous Notes* Telephone Encounter - Inga Castellano - 09/06/2024 11:37 AM EST Called and scheduled pt f/u. She wanted PCP to have results prior to appt so she is getting lab drawn in [place]. * Telephone Encounter - Sahra Guy MD [...] pt with scheduling * Telephone Encounter - Sugey Stover - 09/02/2024 2:08 PM EST Patient calling requesting a call back from a nurse. [phone] * Telephone Encounter - Malika Sheikh LPN [...] OK Sahra Guy MD documented in this encounterVeterans Health Administration02-03-2025 Telephone encounter Note * Telephone Encounter - Sahra Guy MD - 09/05/2024 10:04 AM EST We can see her any time and do the repeat lab . Sahra Guy MD [facility]01-31-2025 Telephone encounter Note* Telephone Encounter - Adonay Marquez LPN - 09/02/2024 4:00 PM EST Called and informed pt of pcp interpretation and recommendation. Pt would like to schedule a followup and have a repeat lab draw in the office. Please assist pt with scheduling [facility]01-31-2025 Telephone encounter Note* Telephone Encounter - Sugey Stover - 09/02/2024 2:08 PM EST Patient calling requesting a call back from a nurse. [phone] [facility]01-31-2025 Telephone encounter Note* Telephone Encounter - Malika Sheikh LPN - 09/02/2024 12:17 PM EST LM for patient to call office. She had assisted living nurse call office in separate encounter [facility]01-31-2025 Telephone encounter Note* Telephone Encounter - Malika Sheikh LPN - 09/02/2024 12:15 PM EST See previous encounter [facility]01-31-2025 Miscellaneous Notes* Telephone Encounter - Malika Sheikh LPN - 09/02/2024 12:15 PM EST See previous encounter * Telephone Encounter - [place] Tete Boucher - 09/02/2024 11:10 AM EST Tena is a patient of Sahra Guy MD today LOBO Garcia called from the [facility] facility and stated the patient wants to find out her lab test results. Per Radha, the patient administers her own medications so it is fine to speak with the patient, please call her today. Patient has been identified by name and birthdate. Duration of symptoms: N/A Person calling: self Call patient at: on cell [phone] (home) [phone] (cell) Was an appointment scheduled: No Closing statement: Results or non-symptom based questions: Thank you for calling [facility], your call will be returned within the next business day. Tete Mora Pss documented in this encounterVeterans Health Administration01-31-2025 Telephone encounter Note * Telephone Encounter - [place] Tete Boucher - 09/02/2024 11:10 AM EST Tena is a patient of Sahra Guy MD today LOBO Garcia called from the [facility] facility and stated the patient wants to find out her lab test results. Per Radha, the patient administers her own medications so it is fine to speak with the patient, please call her today. Patient has been identified by name and birthdate. Duration of symptoms: N/A Person calling: self Call patient at: on cell [phone] (home) [phone] (cell) Was an appointment scheduled: No Closing statement: Results or non-symptom based questions: Thank you for calling [facility], your call will be returned within the next business day. Tete Mora Pss [facility]01-30-2025 Telephone encounter Note* Telephone Encounter - Sahra Guy MD - 09/01/2024 3:13 PM EST Lipid shows midley elevated LDL "bad" cholesterol , the hdl cholesterol is quite low. That's a change from previous. Not sure this is a correct value. Don't think we'd do anything different, but could repeat the lab at some point. Blood count OK Sahra Guy MD [facility]01-30-2025 Telephone encounter Note* Telephone Encounter - Adonay Marquez LPN - 09/01/2024 3:10 PM EST Results entered into pt chart. Please advise. [facility]01-30-2025 Miscellaneous Notes* Telephone Encounter - Adonay Marquez [...] calling: self Call patient at: at home [phone] (home) [phone] (cell) Was an appointment scheduled: No Closing statement: Results or non-symptom based questions: Thank you for calling [facility], your call will be returned within the next business day. Tete Boucher documented in this encounterVeterans Health Administration01-30-2025 Telephone encounter Note * Telephone Encounter - Sugey Stover - 09/01/2024 1:21 PM EST Rachel with [facility] is calling Sahra Guy MD today to request this month's Office visit Notes. Faxed to Rachel at fax number [phone] [facility]01-30-2025 Miscellaneous Notes* Telephone Encounter - Sugey Stover - 09/01/2024 1:21 PM EST Rachel with [facility] is calling Sahra Guy MD today to request this month's Office visit Notes. Faxed to Rachel at fax number [phone] documented in this encounterVeterans Health Administration01-30-2025 Telephone encounter Note * Telephone Encounter - Sahra Guy MD - 09/01/2024 12:06 PM EST No results in scanned docs, do we have them? [facility]01-29-2025 Telephone encounter Note* Telephone Encounter - [place] Tete Boucher - 08/31/2024 2:09 PM EST Tena is calling Sahra Guy MD today to confirm that her las test results from outside facility were received. She would like to speak with the doctor to discuss the results. Patient has been identified by name and birthdate. Duration of symptoms: N/A Person calling: self Call patient at: at home [phone] (home) [phone] (cell) Was an appointment scheduled: No Closing statement: Results or non-symptom based questions: Thank you for calling [facility], your call will be returned within the next business day. Tete Dumonting Pss [facility]01-22-2025 Telephone encounter Note* Telephone Encounter - Adonay Marquez LPN - 08/24/2024 10:10 AM EST Received orders from [facility]. Placed in provider's inbox for review. Route to MA fax [facility]01-22-2025 Miscellaneous Notes* Telephone Encounter - Adonay Marquez LPN - 08/24/2024 10:10 AM EST Received orders from [facility]. Placed in provider's inbox for review. Route to MA fax documented in this encounterVeterans Health Administration01-21-2025 Instructions* Patient Instructions* Sahra Guy MD - [...] review all the medicines you take, even sdnp-uog-lfdxomz medicines. As you get older, the way [...] have certain medical conditions. documented in this encounterVeterans Health Administration01-21-2025 NoteHNO ID: [id number] Author: SAHRA GUY MD Service: ? Author [...] Obesity, Class III, BMI 40-49.9 (morbid obesity) ([facility]) Comment: Stable. 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 yes Would you [...] Any memory concerns? Yes documented in this encounterVeterans Health Administration01-21-2025 NoteHNO ID: [id number] Author: SAHRA GUY MD Service: ? Author [...] directive, such as health care power of erisa attorney or living will? yes Would you [...] aids Sahra Guy MD Any memory concerns? [facility] Telephone encounter Note* Telephone Encounter - Adonay Marquez LPN - 08/22/2024 3:37 PM EST Noted. [facility]01-20-2025 Miscellaneous Notes* Telephone Encounter - Adonay Marquez LPN - 08/22/2024 3:37 PM EST Noted. * Telephone Encounter - Norma Long - 08/22/2024 11:03 AM EST Tena is calling Sahra Guy MD today is now using [employer] with a new insurance company( using the [...] calling: self Call patient at: at home [phone] (home) [phone] (cell) Was an appointment scheduled: Yes: Date/Time: 08/23/[address] Guy Closing statement: Results or non-symptom based questions: Thank you for calling [facility], your call will be returned within the next business day. Norma Monroe documented in this encounterVeterans Health Administration01-20-2025 Telephone encounter Note * Telephone Encounter - Norma Long - 08/22/2024 11:03 AM EST Tena is calling Sahra Guy MD today is now using [employer] with a new insurance company( using the [...] calling: self Call patient at: at home [phone] (home) [phone] (cell) Was an appointment scheduled: Yes: Date/Time: 08/23/[address] Guy Closing statement: Results or non-symptom based questions: Thank you for calling [facility], your call will be returned within the next business day. Norma Monroe [facility]01-15-2025 Telephone encounter Note* Telephone Encounter - Malika Sheikh LPN - 08/17/2024 10:57 AM EST Verbal order given for PT and OT. Per home health patient did not know that she had an appointment for the . Call placed to patient and voicemail left stating time and date of appointment. Message left that visit is needed for insurance to authorize therapy [facility]01-15-2025 Miscellaneous Notes* Telephone Encounter - Malika Sheikh [...] order on behalf of Dr. Malena Leal APRN.ENVIRONMENTAL SOLUTIONS ENGINEER * Telephone Encounter - Alicia Sultana - 08/17/2024 9:23 AM EST Rachel from [employer] calling back and states that since patient is scheduled with Dr. Guy on 08/23 they will be able to use his name as a certifying provider. [facility] asking for a verbal order from Dr. Guy. Please return call to [phone] * Telephone Encounter - Adonay Marquez LPN [...] change your name." Copied and pasted from [email or web address]://[email or web address]/pecos/help-main/faq.[email or web address] Please advise. * Telephone Encounter - Leonid [...] about provider's name change. Leonid Leal APRN.ANTONY * Telephone Encounter - Sugey Stover - 08/15/2024 2:13 PM EST Rachel with [facility] is calling regarding Home PT and [...] flag will happen. Please call Rachel at [phone] documented in this encounterVeterans Health Administration01-15-2025 Telephone encounter Note * Telephone Encounter - Leondi Leal APRN.CNP - 08/17/2024 10:48 AM EST Yes, please give verbal order on behalf of Dr. Malena Leal APRN.ANTONY [facility]01-15-2025 Telephone encounter Note* Telephone Encounter - Alicia Sultana - 08/17/2024 9:23 AM EST Rachel from [employer] calling back and states that since patient is scheduled with Dr. Guy on 08/23 they will be able to use his name as a certifying provider. [facility] asking for a verbal order from Dr. Guy. Please return call to [phone] [facility]01-13-2025 Telephone encounter Note* Telephone Encounter - Adonay [...] change your name." Copied and pasted from https://[email or web address]/pecos/help-main/[email or web address] Please advise. [facility]01-13-2025 Telephone encounter Note* Telephone Encounter - Leonid [...] about provider's name change. Leonid Leal APRN.ANTONY [facility]01-13-2025 Telephone encounter Note* Telephone Encounter - Sugey Stover - 08/15/2024 2:13 PM EST Rachel with [facility] is calling regarding Home PT and OT. Regulations are that it be from theprovider who had a face to face. Stated Leonid Leal would need to certify the care since she had aface to face with her. She also stated it is coming up as Leonid Chandlerins in the system (PICOS would have to be updated). With the different last name a red flag will happen. Please call Rachel at [phone] [facility]01-09-2025 NoteHNO ID: [id number] Author: LEONID LEAL APRN.ANTONY Service: ? Author Type: Nurse Practitioner Type: Progress Notes Filed: 08/11/2024 15:02 Note Text: This note was created using NoteWriter. Subjective Tena Cannon is a 83 year [...] Keflex [Cephalexin], Vioxx [Rofecoxib], Novocain [Procaine Hcl], [place]-3 Fish Oil [[place]-3 Fatty Acids-Vitamin E], Advil [Ibuprofen], and Asa [...] alcohol (LIQUID TEARS OPHTHALMIC) Use in eyes. rutin/hesp/bioflav/C/sjgset646 (BIOFLEX ORAL) Take 1 capsule by mouth [...] Age of Onset He (more content not included)...[facility]01-09-2025 History of Present illness Narrative* Leonid Leal APRN.ENVIRONMENTAL SOLUTIONS ENGINEER - 08/11/2024 1:41 PM EST Images from the original note were not included. This note was created using DiJiPOPriter. Subjective Tena Cannon is a 83 year [...] Keflex [Cephalexin], Vioxx [Rofecoxib], Novocain [Procaine Hcl], [place]-3 Fish Oil [[place]-3 Fatty Acids-Vitamin E], Advil [Ibuprofen], and Asa [...] alcohol (LIQUID TEARS OPHTHALMIC) Use in eyes. rutin/hesp/bioflav/C/yzyjyk275 (BIOFLEX ORAL) Take 1 capsule by mouth [...] Dispense: 30 capsule; Refill: 0 Leonid Leal APRN.ANTONY documented in this encounterVeterans Health Administration01-09-2025 Telephone encounter Note * Telephone Encounter - [...] Denies 11. : N/a Protocols used: Back [id number]-BR [facility]01-09-2025 Miscellaneous Notes* Telephone Encounter - Alondra Villalta [...] Denies 11. : N/a Protocols used: Back Mcom-SENGU-TV * Telephone Encounter - Cris Rascon - [...] calling: self Call patient at: at home [phone] (home) [phone] (cell) Was an appointment scheduled: No Closing statement: Symptom Call: Thank you for calling [facility], your call is very important. A nurse will call in approximately 2-4 hours during business hours. If this is an emergency, please contact 911Dagmar Boucher documented in this encounterVeterans Health Administration01-09-2025 Telephone encounter Note * Telephone Encounter - [...] calling: self Call patient at: at home [phone] (home) [phone] (cell) Was an appointment scheduled: No Closing statement: Symptom Call: Thank you for calling [facility], your call is very important. A nurse will call in approximately 2-4 hours during business hours. If this is an emergency, please contact 911. Cris Boucher [facility]12-03-2024 Telephone encounter Note* Telephone Encounter - Sugey Stover - 07/05/2024 3:29 PM EST Patient [...] next office visit in primary care: 08/23/2024 [facility] [employer] Mail order Please advise. Thank you. Sugey Stover. [facility]12-03-2024 Miscellaneous Notes* Telephone Encounter - Sugey Stover - 07/05/2024 3:29 PM EST Patient [...] next office visit in primary care: 08/23/2024 [facility] [employer] Mail order Please advise. Thank you. Sugey Stover. documented in this encounterVeterans Health Administration11-21-2024 Telephone encounter Note * Telephone Encounter - Adonay Marquez LPN - 06/23/2024 3:17 PM EST Received DNR order from [facility]. Placed in provider's inbox for review. Route to MA fax [facility]11-21-2024 Miscellaneous Notes* Telephone Encounter - Adonay Marquez LPN - 06/23/2024 3:17 PM EST Received DNR order from [facility]. Placed in provider's inbox for review. Route to [place] fax documented in this encounterCleveland [id number] Telephone encounter Note * Telephone Encounter - Sahra Guy MD - 06/20/2024 5:27 PM EST The following approved medication requests have been transmitted electronically. Requested Prescriptions Signed Prescriptions Disp Refills oxybutynin ER (DITROPAN XL) 10 mg 24 hr tablet 90 tablet 1 Sig: Take 1 tablet by mouth once daily. Authorizing Provider: SAHRA GUY MD [facility]11-18-2024 Miscellaneous Notes* Telephone Encounter - Sahra Guy [...] 20, 2024 5:23 PM documented in this encounterVeterans Health Administration11-18-2024 Telephone encounter Note * Telephone Encounter - [...] Marquez LPN June 20, 2024 5:23 PM [facility]11-01-2024 Telephone encounter Note* Telephone Encounter - Malika Sheikh LPN - 06/03/2024 8:54 AM EDT Weights have been declined. Patient in motorized wheelchair. Voicemail left for patient. [facility]11-01-2024 Miscellaneous Notes* Telephone Encounter - Malika Sheikh [...] calling: self Call patient at: at home [phone] (home) [phone] (cell) Was an appointment scheduled: No Closing statement: Results or non-symptom based questions: Thank you for calling [facility], your call will be returned within the next business day. Cris Boucher documented in this encounterVeterans Health Administration11-01-2024 Telephone encounter Note * Telephone Encounter - Malika Sheikh LPN - 06/03/2024 8:35 AM EDT Placed in mail for patient. [facility]11-01-2024 Miscellaneous Notes* Telephone Encounter - Malika Sheikh LPN - 06/03/2024 8:35 AM EDT Placed in mail for patient. * Telephone Encounter - Norma Long - 06/02/2024 2:14 PM EDT Tena is calling Sahra Gyu MD today to request patient medication list be mailed to her please . The address has been verified Patient has been identified by name and birthdate. Person calling: self Call patient at: at home [phone] (home) [phone] (cell) Was an appointment scheduled: No Closing statement: Results or non-symptom based questions: Thank you for calling [facility], your call will be returned within the next business day. Norma Monroe documented in this encounterVeterans Health Administration10-31-2024 Telephone encounter Note * Telephone Encounter - Sahra Guy MD - 06/02/2024 5:13 PM EDT 197 lbs., Sahra Guy MD [facility]10-31-2024 Telephone encounter Note* Telephone Encounter - Norma Long - 06/02/2024 2:14 PM EDT Tena is calling Sahra Guy MD today to request patient medication list be mailed to her please . The address has been verified Patient has been identified by name and birthdate. Person calling: self Call patient at: at home [phone] (home) [phone] (cell) Was an appointment scheduled: No Closing statement: Results or non-symptom based questions: Thank you for calling [facility], your call will be returned within the next business day. Norma Monroe [facility]10-31-2024 Telephone encounter Note* Telephone Encounter - Cris [...] calling: self Call patient at: at home [phone] (home) [phone] (cell) Was an appointment scheduled: No Closing statement: Results or non-symptom based questions: Thank you for calling [facility], your call will be returned within the next business day. Cris Boucher [facility]10-16-2024 Telephone encounter Note* Telephone Encounter - Adonay Marquez LPN - 05/18/2024 11:52 AM EDT RSV vaccine is not covered in office with pt insurance. Please assist pt in scheduling office visitwith provider for a check up. [facility]10-16-2024 Miscellaneous Notes* Telephone Encounter - Adonay Marquez [...] doctor since December. Please advise her at [phone] documented in this encounterVeterans Health Administration10-16-2024 Telephone encounter Note * Telephone Encounter - [...] doctor since December. Please advise her at [phone] [facility]09-04-2024 Telephone encounter Note* Telephone Encounter - Jennifer [...] Giron LPN April 06, 2024 11:26 AM [facility]09-04-2024 Miscellaneous Notes* Telephone Encounter - Jennifer Giron [...] 06, 2024 11:26 AM documented in this encounterVeterans Health Administration08-07-2024 Telephone encounter Note * Telephone Encounter - Malika Sheikh LPN - 03/09/2024 2:18 PM EDT Labs placed in mail. Voicemail left for patient. [facility]08-07-2024 Miscellaneous Notes* Telephone Encounter - Malika Sheikh LPN - 03/09/2024 2:18 PM EDT Labs placed in mail. Voicemail left for patient. * Telephone Encounter - Leonid Roach APRN.CNP - 03/09/2024 1:29 PM EDT Her labs are all within normal limits. Leonid Roach APRN.ENVIRONMENTAL SOLUTIONS ENGINEER * Telephone Encounter - Stephanie Rayo RN - 03/09/2024 9:37 AM EDT Labs are resulted from [facility]. Can you review Vit D, Lipid, CMP, CBC, A1C? Results have been mailed to the patient at her request: Tena Cannon [id number] [place] [address] Dr [address] [place] [id number] * Telephone Encounter - Stephanie Rayo RN [...] a call to advise labs drawn at [facility] results and when provider reviews those labs patient is asking for them to be mailed to her, patient address has been verified. Patient has been identified by name and birthdate. Duration of symptoms: N/A Person calling: self Call patient at: at home [phone] (home) [phone] (cell) Was an appointment scheduled: No Closing statement: Results or non-symptom based questions: Thank you for calling [facility], your call will be returned within the next business day. Norma Monroe documented in this encounterVeterans Health Administration08-07-2024 Telephone encounter Note * Telephone Encounter - Leonid Roach APRN.CNP - 03/09/2024 1:29 PM EDT Her labs are all within normal limits. Leonid Roach APRN.CNP [facility]08-07-2024 Telephone encounter Note* Telephone Encounter - Stephanie Rayo RN - 03/09/2024 9:37 AM EDT Labs are resulted from [facility]. Can you review Vit D, Lipid, CMP, CBC, A1C? Results have been mailed to the patient at her request: Tena Cannon [id number] [address] [place] [address] Dr Ayers [address] [place] [id number] [facility]08-05-2024 Telephone encounter Note* Telephone Encounter - Stehpanie Rayo RN - 03/07/2024 12:09 PM EDT Called patient. March 03 was the draw date. When the results are reviewed she would like them mailed. Patient is reminded external labs take longer to review due to faxing. Patient voiced understanding. Please notify patient when faxed results are received and reviewed. [facility]08-05-2024 Telephone encounter Note* Telephone Encounter - Norma Long - 03/07/2024 10:26 AM EDT Tena is calling Sahra Guy MD today to request a call to advise labs drawn at [facility] results and when provider reviews those labs patient is asking for them to be mailed to her, patient address has been verified. Patient has been identified by name and birthdate. Duration of symptoms: N/A Person calling: self Call patient at: at home [phone] (home) [phone] (cell) Was an appointment scheduled: No Closing statement: Results or non-symptom based questions: Thank you for calling [facility], your call will be returned within the next business day. Norma Monroe [facility]07-26-2024 Telephone encounter Note* Telephone Encounter - [place] Tete Boucher - 02/26/2024 4:43 PM EDT Patient returned phone call; she was notified that the labs were faxed, as she requested. [facility]07-26-2024 Miscellaneous Notes* Telephone Encounter - [place] Tete Boucher - 02/26/2024 4:43 PM EDT Patient returned phone call; she was notified that the labs were faxed, as she requested. * Telephone Encounter - Malika Sheikh LPN - 02/26/2024 4:41 PM EDT Labs faxed. Voicemail left for patient. * Telephone Encounter - Tete Melchor - 02/26/2024 2:11 PM EDT Tena is calling Sahra Guy MD today patient is calling to request her lab orders are sent to: [facility], fax to: [phone]. Please notify patient once this is completed. Patient has been identified by name and birthdate. Duration of symptoms: N/A Person calling: self Call patient at: at home [phone] (home) [phone] (cell) Was an appointment scheduled: No Closing statement: Results or non-symptom based questions: Thank you for calling [facility], your call will be returned within the next business day. Tete Boucher documented in this encounterVeterans Health Administration07-26-2024 Telephone encounter Note * Telephone Encounter - Malika Sheikh LPN - 02/26/2024 4:41 PM EDT Labs faxed. Voicemail left for patient. [facility]07-26-2024 Telephone encounter Note* Telephone Encounter - Tete Melchor - 02/26/2024 2:11 PM EDT Tena is calling Sahra Guy MD today patient is calling to request her lab orders are sent to: [facility], fax to: [phone]. Please notify patient once this is completed. Patient has been identified by name and birthdate. Duration of symptoms: N/A Person calling: self Call patient at: at home [phone] (home) [phone] (cell) Was an appointment scheduled: No Closing statement: Results or non-symptom based questions: Thank you for calling [facility], your call will be returned within the next business day. Tete Boucher [facility]07-25-2024 Telephone encounter Note* Telephone Encounter - Adonay Marquez LPN - 02/25/2024 4:03 PM EDT Called and informed pt. [facility]07-25-2024 Miscellaneous Notes* Telephone Encounter - Adonay Marquez LPN - 02/25/2024 4:03 PM EDT Called and informed pt. * Telephone Encounter - Leonid Roach APRN.CNP - 02/23/2024 9:10 AM EDT Patient is due for fasting labs, orders placed Leonid Roach APRN.CNP * Telephone Encounter - Adonay Marquez LPN - 02/23/2024 8:30 AM EDT Pharmacy verified in Epic Patient has [...] advise. Adonay Marquez LPN documented in this encounterVeterans Health Administration07-23-2024 Telephone encounter Note * Telephone Encounter - Leonid Roach APRN.CNP - 02/23/2024 9:10 AM EDT Patient is due for fasting labs, orders placed Leonid Roach APRN.CNP [facility]07-23-2024 Telephone encounter Note* Telephone Encounter - Adonay Marquez LPN - 02/23/2024 8:30 AM EDT Pharmacy verified in [facility] [...] 09/25/2022 5.0 Please advise. Adonay Marquez LPN [facility]06-24-2024 Telephone encounter Note* Telephone Encounter - Kimberly [...] APPLICATION TO AFFECTED AREA ONCE DAILY JYOTI Boucher January 25, 2024 1:40 PM T [facility]06-24-2024 Miscellaneous Notes* Telephone Encounter - Kimberly Nelson [...] 25, 2024 1:40 PM documented in this encounterVeterans Health Administration06-12-2024 Telephone encounter Note * Telephone Encounter - Sahra Guy MD - 01/13/2024 8:33 AM EDT The following approved medication requests have been transmitted electronically. Requested Prescriptions Signed Prescriptions Disp Refills oxybutynin ER (DITROPAN XL) 10 mg 24 hr tablet 90 tablet 1 Sig: Take 1 tablet by mouth once daily. Authorizing Provider: SAHRA GUY MD [facility]06-12-2024 Miscellaneous Notes* Telephone Encounter - Sahra Guy [...] 12, 2024 4:35 PM documented in this encounterVeterans Health Administration06-11-2024 Telephone encounter Note * Telephone Encounter - [...] Marquez LPN January 12, 2024 4:35 PM [facility]05-09-2024 Instructions* Patient Instructions* Sahra Guy MD - 12/10/2023 9:56 AM EDT Try Zyrtec 10 mg daily for allergies , also consider Flonase nasal spray 1 spray each nostril daily documented in this encounterVeterans Health Administration05-09-2024 History of Present illness Narrative* Sahra Guy [...] ALLERGIES Keflex [Cephalexin], Novacaine [Other], Vioxx [Rofecoxib], [place]-3 Fish Oil [[place]-3 Fatty Acids-Vitamin E], Advil [Ibuprofen], and Asa [...] alcohol (LIQUID TEARS OPHTHALMIC) Use in eyes. rutin/hesp/bioflav/C/khglzy786 (BIOFLEX ORAL) Take 1 capsule by mouth [...] December 10, 2023 9:21 AM Provider Attestation: I, Sahra Guy MD, [...] 10, 2023 1:35 PM documented in this encounterVeterans Health Administration04-25-2024 Telephone encounter Note * Telephone Encounter - Sahra Guy MD - 11/26/2023 3:13 PM EDT Schedule appt. Haven't seen her since March. Sahra Guy MD [facility]04-25-2024 Miscellaneous Notes* Telephone Encounter - Sahra Guy MD - 11/26/2023 3:13 PM EDT Schedule appt. Haven't seen her since March. Sahra Guy MD * Telephone Encounter - Sugey Stover - 11/25/2023 3:47 PM EDT FYI- Patient called and wanted Dr. Guy to know that she is aware of the paperwork being sent to him from [facility], and she agrees and is fine with going into their Assisted Living. She wants to stay there. * Telephone Encounter - Malika Sheikh LPN - 11/25/2023 3:29 PM EDT Received 11/25/2023 from [facility] I. Placed in provider's inbox for review. Route to [place] for faxing. documented in this encounterVeterans Health Administration04-24-2024 Telephone encounter Note * Telephone Encounter - Sugey Stover - 11/25/2023 3:47 PM EDT FYI- Patient called and wanted Dr. Guy to know that she is aware of the paperwork being sent to him from [facility], and she agrees and is fine with going into their Assisted Living. She wants to stay there. [facility]04-24-2024 Telephone encounter Note* Telephone Encounter - Malika Sheikh LPN - 11/25/2023 3:29 PM EDT Received 11/25/2023 from [facility] I. Placed in provider's inbox for review. Route to [place] for faxing. [facility]12-11-2023 Miscellaneous Notes* Telephone Encounter - Jennifer Giron [...] Order(s) pended. Please advise. Jennifer Giron LPN, CMA documented in this encounterVeterans Health Administration10-06-2023 Miscellaneous Notes* Telephone Encounter - Stephanie Rayo [...] notify patient. Norma Monroe documented in this encounterVeterans Health Administration09-21-2023 History of Present illness Narrative* Jeannette Melgar, PT - 04/23/2023 2:49 PM EDT Patient history gathered and found that patient is currently receiving home care. No further evaluation completed this date. Patient provided information regarding adaptive equipment that may be helpful with ADL's. documented in this encounterVeterans Health Administration09-07-2023 History of Present illness Narrative* Nevaeh Hernandez, [facility]-WATCH MECHANIC - 04/09/2023 2:55 PM EDT Episode Visit Count: 1 Start of Care Date: 04/09/23 Onset Date: 04/03/13 Plan of Care Certification Date: 04/09/23 Next Certification Due Date: 04/09/23 Patient Identified by Name and Date of : Yes [facility] SPEECH THERAPY CLINICAL [...] 90 degrees for all PO, Small Bite/Sip WATCH MECHANIC Recommendations: Diet, Swallowing Precautions, Discontinue Speech Therapy Results and Recommendations Discussed With: Patient, Family (dauther) Planned Interventions, Frequency, and Duration: Current Frequency: [...] Back: States/Identifies TREATMENT: Evaluation: Swallow Eval Func (86343) Evaluation: Swallow Eval Func (85444) Swallow / Dysphagia (53342): Skilled Intervention: Provided education related to a [...] and swallowing strategies. Billing: Clinical Swallow Evaluation (97991) and Dysphagia Treatment (80148) Total time / Length of visit: 50 minutes Session Start Time : 1345 Session Stop Time : 1435 Nevaeh Hernandez CCC-WATCH MECHANIC documented in this encounterVeterans Health Administration09-07-2023 Miscellaneous Notes* Telephone Encounter - Sara Vasquez [...] ID VM, call back number given. Sara Vasquez, RN, BSN documented in this encounterVeterans Health Administration09-01-2023 History of Present illness Narrative* Ken Trent MD - 04/03/2023 2:00 PM EDT [facility] New Patient Visit Note Consultation [...] (L): absent Jaw jerk: Absent COORDINATION Intact ebuikz-yi-uuhq, fmti-xw-gtci, and rapid alternating movements. No tremor. 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 Ken Trent MD Neuromuscular Medicine (NM) [facility], [facility] documented in this encounterVeterans Health Administration08-21-2023 Miscellaneous Notes* Telephone Encounter - Adonay Marquez - 03/23/2023 3:25 PM EDT Received OT referral request from [facility]/ [facility]. Placed in provider's inbox for review. Route to [place] fax [phone] documented in this encounterVeterans Health Administration08-09-2023 Miscellaneous Notes* Telephone Encounter - Sahra Guy [...] 03/11/2023 2:38 PM EDT [facility] [...] advise. Malika Sheikh LPN documented in this encounterVeterans Health Administration08-08-2023 History of Present illness Narrative* Sahra Guy [...] Attestation: By signing my name below, I, Julianna Briggs, attest that this documentation has been prepared under the direction and in the presence of Jaime Guy M.D. Electronically Signed: Jakob Schafer. March 09, 2023 11:18 PM Provider Attestation: I, Sahra Guy MD, personally [...] 10, 2023 1:37 PM documented in this encounterVeterans Health Administration05-09-2023 Miscellaneous Notes* Telephone Encounter - Malika Sheikh LPN - 12/09/2022 2:20 PM EDT Received 12/09/2022 from [facility]. Placed in provider's inbox for review. Route to [place] for faxing Patient has no medical contradictions to using hearing aid(s) documented in this encounterVeterans Health Administration02-28-2023 Miscellaneous Notes* Telephone Encounter - Leonid Roach APRN.CNP - 09/30/2022 11:37 AM EST Requested Prescriptions Signed Prescriptions Disp Refills valACYclovir (VALTREX) 1 gram 21 tablet 0 Sig: Take 1 tablet by mouth three times daily for 7 days. Authorizing Provider: LEONID ROACH Pharmacy Information Pharmacy Address Telephone [id number] [address] [place] [id number] * Telephone Encounter - Adonay Marquez - 09/30/2022 11:12 AM EST [facility] * Telephone Encounter - Alicia Sultana - 09/30/2022 10:51 AM EST Patient was prescribed valACYclovir (VALTREX) 1 gram. Medication was sent to wrong pharmacy. Please send to [facility] in [place]. documented in this encounterVeterans Health Administration02-24-2023 Miscellaneous Notes* Telephone Encounter - Yelena King Ma - 09/26/2022 11:30 AM EST Patient notified and voiced understanding * Telephone Encounter - Yelena King Ma - 09/26/2022 11:26 AM EST Images from the original note were not included. Theresa Zarate APRN.ANTONY [facility] Triage Nurse [place]; [facility] Please inform patient that her lab results are normal or within the acceptable range. Please ask that she follow recommendations as stated at office visit. Theresa Zarate APRN.ENVIRONMENTAL SOLUTIONS ENGINEER documented in this encounterVeterans Health Administration02-24-2023 Miscellaneous Notes* Telephone Encounter - Cris Stewart RN - 09/26/2022 10:04 AM EST Message to patient, results mailed to her per request. Address checked. * Telephone Encounter - Stephanie Rayo RN - 09/26/2022 9:30 AM EST Images from the original note were not included. Theresa Zarate APRN.ANTONY [facility] T[facility] Nurse [place]; [facility] Please inform patient that her lab results are normal or within the acceptable range. Please ask that she follow recommendations as stated at office visit. Theresa Zarate APRN.ENVIRONMENTAL SOLUTIONS ENGINEER Called patient at [phone]. Left message on voicemail for patient to return call for message from provider. documented in this encounterVeterans Health Administration02-15-2023 Miscellaneous Notes* Telephone Encounter - Cris Stewart [...] last menstrual period?" N/A Protocols used: Toe Ftln-DXRKU-OS * Telephone Encounter - Stephanie Rayo RN - 09/17/2022 11:02 AM EST Called patient at [phone] to triage her upcoming appointment with Dr. Guy for big toe redness and pain. Dr. Guy has many openings sooner than this if she needs to move it up. Left message on voicemail for patient to return call to triage. documented in this encounterVeterans Health Administration01-03-2023 Miscellaneous Notes* Telephone Encounter - Malika Sheikh LPN - 08/05/2022 11:54 AM EST [facility] [...] advise. Malika Sheikh LPN documented in this encounterVeterans Health Administration12-12-2022 Miscellaneous Notes* Telephone Encounter - Malika Sheikh LPN - 07/14/2022 3:52 PM EST Received 07/14/2022 from Patient. Placed in provider's inbox for review. Route to [place] for mailing Disability license plate form documented in this encounterVeterans Health Administration11-10-2022 Instructions* Patient Instructions* Leonid Roach APRN.ENVIRONMENTAL SOLUTIONS ENGINEER - 06/12/2022 10:05 AM EST FACT SHEET FOR PATIENTS, PARENTS, AND CAREGIVERS EMERGENCY USE AUTHORIZATION (EUA) OF PAXLOVID FOR CORONAVIRUS DISEASE 2019 (COVID-19) You are being given this Fact Sheet because your healthcare provider believes it is necessary to provide you with PAXLOVID for the treatment of njzs-ib-srqxjebg coronavirus disease (COVID-19) caused by the SARS-CoV-2 [...] virus. COVID-19 illnesses have ranged from very mewq-pu-uznycx, including illness resulting in . While information [...] is an investigational medicine used to treat slbh-lc-yqdsojkg COVID-19 in adults and children [12 years [...] of using PAXLOVID to treat people with fsox-uy-jghikyzt COVID-19. The FDA has authorized the emergency use of PAXLOVID for the treatment of hlfh-fr-tpbvydfi COVID-19in adults and children [12 years of [...] the medicines you take, including prescription and tfbu-csc-phliuhz medicines, vitamins, and herbal supplements. Some medicines [...] oral midazolam Apalutamide Carbamazepine, phenobarbital, phenytoin Rifampin Peshtigo s Wort (hypericum perforatum) Taking PAXLOVID with [...] (remdesivir) is FDA-approved for the treatment of fngo-mi-cskxzmtn COVID-19 in certain adults and children. Talk with your doctor to see if Veklury is appropriate for you. Like PAXLOVID, FDA may also allow for the emergency use of other medicines to treat people with COVID-19. Go to https://www.fda.gov/uibxfxjdv-futcbcdlodxz-dcvdcrkenen/crh-yawuj-nmheidklsz-and- policy-framework/cvdiruahv-sga-jyfwvporzezgw for information on the emergency use of [...] if I am or ? There is disc pad knockout worker treating women or mothers with PAXLOVID. For [...] not go away. Report side effects to [employer] at www.fda.gov/medSproutel or call 4-096-EOX5438 or you can reportside effects to [employer] at the contact information provided below. Website Fax number Telephone number wwwA[employer] How should I store PAXLOVID? Store PAXLOVID [...] (EUA). The EUA is supported by a [place] of Health and Human Service (HHS) declaration that circumstances exist to justify the emergency use of drugs and biological productsduring the COVID-19 pandemic. PAXLOVID for the treatment of zqjv-da-pmmuyeru COVID-19 in adults and children [12 years [...] telephone number provided below. Website Telephone number [email or web address] (8-795-H90-KAGW) You can also go to www.[employer] or call for more information. [employer] Distributed by [employer] [place] [address] LAB-1494-2.1 Revised: 18 October 2021 FACT SHEET FOR PATIENTS, PARENTS, AND CAREGIVERS EMERGENCY USE AUTHORIZATION (EUA) OF PAXLOVID FOR CORONAVIRUS DISEASE 2019 (COVID-19) You are being given this Fact Sheet because your healthcare provider believes it is necessary to provide you with PAXLOVID for the treatment of glcp-ol-feupwxmv coronavirus disease (COVID-19) caused by the SARS-CoV-2 [...] virus. COVID-19 illnesses have ranged from very zgso-xn-bzvuyv, including illness resulting in . While information [...] is an investigational medicine used to treat ytfp-tz-czwtjnjw COVID-19 in adults and children [12 years [...] of using PAXLOVID to treat people with uydo-jx-zsyzinvv COVID-19. The FDA has authorized the emergency use of PAXLOVID for the treatment of davc-fg-bndyecuf COVID-19in adults and children [12 years of [...] the medicines you take, including prescription and hvnc-uig-lnvqskg medicines, vitamins, and herbal supplements. Some medicines [...] oral midazolam Apalutamide Carbamazepine, phenobarbital, phenytoin Rifampin Peshtigo s Wort (hypericum perforatum) Taking PAXLOVID with [...] (remdesivir) is FDA-approved for the treatment of vicm-ij-thibgmsk COVID-19 in certain adults and children. Talk with your doctor to see if Veklury is appropriate for you. Like PAXLOVID, FDA may also allow for the emergency use of other medicines to treat people with COVID-19. Go to https://www.fda.gov/sgitgybef-enkbqpezhapi-fhtidhwqmql/ptq-uermj-tmcyalxujp-and- policy-framework/rvyyxvqjr-lwn-cznnznndadkcw for information on the emergency use of [...] if I am or ? There is disc pad knockout worker treating women or mothers with PAXLOVID. For [...] to FDA MedWatch at www.fda.gov/medwatch or call 7-388-PDS1160 or you can reportside effects to [employer]. at the contact information provided below. Website Fax number Telephone number [employer] How should I store PAXLOVID? Store PAXLOVID [...] (EUA). The EUA is supported by a [place] of Health and Human Service (HHS) declaration that circumstances exist to justify the emergency use of drugs and biological productsduring the COVID-19 pandemic. PAXLOVID for the treatment of smxz-nf-biiyfqhu COVID-19 in adults and children [12 years [...] telephone number provided below. Website Telephone number www[employer] (0-932-T85-ONIN) You can also go to www.[employer] or call for more information. Pfizer Distributed by [employer] [place] [address] LAB-1494-2.1 Revised: 18 October 2021 documented in this encounterVeterans Health Administration11-10-2022 History of Present illness Narrative* Leonid Roach APRN.CNP - 06/12/2022 10:02 AM EST Nirmatrelvir/Ritonavir (Paxlovid) Eligibility and Patient Discussion [facility] Formulary Restriction Criteria: Adult outpatients 18 years [...] Telephone time: 9 minutes documented in this encounterVeterans Health Administration11-09-2022 Miscellaneous Notes* Telephone Encounter - Leonid Roach [...] If not diagnosed by a doctor (or LIME FILTER OPERATOR/PA), ask "Are there lots of cases (community spread) where you live?" Note: See [facility] health department website, if unsure. Home Test 2. COVID-19 EXPOSURE: "Was there any known exposure to COVID before the symptoms began?" [facility] Definition of close contact: within 6 feet [...] breath, wheezing, unable to speak) Denies 8. GWSONX-CBWP-CLYWJ: "Are you getting better, staying the same [...] 97%-62 Protocols used: Coronavirus (COVID-19) Diagnosed or Wsqclibml-OWUSN-FR documented in this encounterVeterans Health Administration11-09-2022 Miscellaneous Notes* Telephone Encounter - Corrine Lopez RN - 06/11/2022 2:40 PM EST Patient being triaged in One Click encounter. Corrine Lopez RN * Telephone Encounter - Cris Boucher - 06/11/2022 2:22 PM EST Appointment with [facility] Nurse @ 3:00 today. Patient tested positive for COVID and wants to have prescription called in to [facility] in [place]. Symptoms: Cold Cough Sinus pressure Runny nose Eyes are burning Patient also stated she fell last night at home. Called the squad to come and pick her up. Contact patient at [phone] Cris Boucher documented in this encounterVeterans Health Administration09-07-2022 Miscellaneous Notes* Telephone Encounter - Adonay Marquez - 04/09/2022 5:15 PM EDT Called pt and informed of results pt indicated understanding. * Telephone Encounter - Sahra Guy MD - 04/09/2022 8:28 AM EDT Hba1c diabetes test well inside normal range Thyroid stimulating hormone is in normal range, indicating normal thyroid function. Sahra Guy MD documented in this encounterVeterans Health Administration08-24-2022 Miscellaneous Notes* Telephone Encounter - Sahra Guy MD - 03/26/2022 8:24 AM EDT The following approved medication requests have been transmitted electronically. Requested Prescriptions Pending Prescriptions Disp Refills metroNIDAZOLE (METROGEL) 0.75 % Topical Gel 135 g 3 Sig: APPLY 1 APPLICATION TO AFFECTED AREA ONCE DAILY TOFACE Sahra Guy MD * Telephone Encounter - [...] patient. Tete Mora Pss documented in this encounterVeterans Health Administration08-19-2022 Miscellaneous Notes* Telephone Encounter - Malika Sheikh [...] calling: self Call patient at: at home [phone] (home) [phone] (cell) Was an appointment scheduled: No Closing statement: Results or non-symptom based questions: Thank you for calling [facility], your call will be returned within the next business day. Tete Mora Pss documented in this encounterVeterans Health Administration05-19-2022 Miscellaneous Notes* Telephone Encounter - Adonay Marquez - 12/19/2021 2:14 PM EDT Received request for PCP signature from [facility]. Placed in provider's inbox for review. Route to [place] fax documented in this encounterVeterans Health Administration05-13-2022 History of Present illness Narrative* Nakita Bronson - 12/13/2021 4:32 PM EDT POPULATION HEALTH NAVIGATION OUTREACH Action/FYI LVM FOR PATIENT TO CALL BACK AND SCHEDULE CONSULT FOR PT/OT. [phone] Pt identified by name and : NO [...] 13, 2021 4:32 PM documented in this encounterVeterans Health Administration05-05-2022 Miscellaneous Notes* Telephone Encounter - Adonay Marquez - 12/05/2021 8:20 AM EDT [facility] office printed in provider inbox pending signature. * Telephone Encounter - Alicia Sultana - 12/04/2021 1:07 PM EDT [facility] calling to request office note from 10/29/21. Also requesting a physician signature on thenote. Please fax to [phone] documented in this encounterVeterans Health Administration05-04-2022 Miscellaneous Notes* Telephone Encounter - Malika Sheikh LPN - 12/04/2021 10:52 AM EDT Received 2021 from [facility]. Placed in provider's inbox for review. Route to [place] for faxing [phone] documented in this encounterVeterans Health Administration05-02-2022 Miscellaneous Notes* Telephone Encounter - Adonay Marquez - 12/02/2021 11:27 AM EDT Update and orders signed and faxed to [facility]. documented in this [facility]04-28-2022 Miscellaneous Notes* Telephone Encounter - Malika Sheikh LPN - 11/28/2021 2:33 PM EDT Received 11/28/2021 from [facility]. Placed in provider's inbox for review. Route to [place] for scanning Discharge summary documented in this encounterVeterans Health Administration04-21-2022 Miscellaneous Notes* Telephone Encounter - Malika Sheikh LPN - 11/21/2021 2:00 PM EDT Received 11/21/2021 from [facility]. Placed in provider's inbox for review. Route to [place] for faxing [phone] Home health certification and plan of care to be signed and faxed. documented in this encounterVeterans Health Administration04-20-2022 Miscellaneous Notes* Telephone Encounter - Malika Sheikh LPN - 11/20/2021 12:01 PM EDT Spoke to Rachel. Additional signed note from 08/08/2021 faxed * Telephone Encounter - Kimberly Kurtz Pss - 11/20/2021 11:25 AM EDT Rachel, from [facility] stated she received the fax, but it was not signed by Dr. Guy. Said it was signed by a scribe. Please re-fax to [phone]. Rachel can be reached at [phone]. * Telephone Encounter - Malika Sheikh LPN - 11/20/2021 10:07 AM EDT Fax sent * Telephone Encounter - Rachel Valdez Pss - 11/20/2021 9:00 AM EDT Rahcel from [facility] is requesting the chart note from the 10-29-21 visit to beused as a F2F visit for her [facility]. It can be faxed to [phone] Att: Rachel documented in this encounterVeterans Health Administration04-05-2022 Miscellaneous Notes* Telephone Encounter - Leonid Roach APRN.CNP - 11/05/2021 4:20 PM EDT Noted. Leonid Roach APRN.CNP * Telephone Encounter - Tete Boucher - 11/05/2021 4:11 PM EDT Shabana, Physical Therapist from [facility] called to update the doctor. Today she completed the PT evaluation and start of care: 2 times per week 2 -week period 1 time per week for 2 more weeks She will work with the patient on: Transfers, home safety, strengthening; any pain issues; no further action is requested, she is providing an update. documented in this encounterVeterans Health Administration03-31-2022 Miscellaneous Notes* Telephone Encounter - Leonid Roach [...] stable. Leonid Roach APRN.CNP documented in this encounterVeterans Health Administration03-29-2022 History of Present illness Narrative* Sahra Guy [...] ALLERGIES: Keflex [Cephalexin], Novacaine [Other], Vioxx [Rofecoxib], [place]-3 Fish Oil [[place]-3 Fatty Acids-Vitamin E], Advil [Ibuprofen], and Asa [...] Obesity, Class III, BMI 40-49.9 (morbid obesity) ([facility]) Comment: patient needs a wheelchair to get [...] 29, 2021 10:15 AM documented in this encounterVeterans Health Administration01-23-2019 History of Past illness Narrative* Problem Noted [...] of this encounter (statuses as of 10/29/2021) [facility] History of [facility] illness Narrative* Problem Noted [...] of this encounter (statuses as of 10/31/2021) [facility] History of [facility] illness Narrative* Problem Noted [...] of this encounter (statuses as of 11/06/2021) [facility] of [facility] illness Narrative* Problem Noted [...] of this encounter (statuses as of 11/20/2021) [facility] of [facility] illness Narrative* Problem Noted [...] of this encounter (statuses as of 11/21/2021) [facility] illness Narrative* Problem Noted [...] of this encounter (statuses as of 11/28/2021) [facility] of [facility] illness Narrative* Problem Noted [...] of this encounter (statuses as of 12/02/2021) [facility] of [facility] illness Narrative* Problem Noted [...] of this encounter (statuses as of 12/04/2021) [facility] of [facility] illness Narrative* Problem Noted [...] of this encounter (statuses as of 12/05/2021) [facility] of Past illness Narrative* Problem Noted [...] of this encounter (statuses as of 12/13/2021) [facility] Past illness Narrative* Problem Noted [...] of this encounter (statuses as of 12/19/2021) [facility] History of Past illness Narrative* Problem Noted [...] of this encounter (statuses as of 03/21/2022) [facility] History of Past illness Narrative* Problem Noted [...] of this encounter (statuses as of 03/26/2022) [facility] History of Past illness Narrative* Problem Noted [...] of this encounter (statuses as of 04/04/2022) [facility] History of Past illness Narrative* Problem Noted [...] of this encounter (statuses as of 04/09/2022) [facility] History of Past illness Narrative* Problem Noted [...] of this encounter (statuses as of 06/11/2022) [facility] History of Past illness Narrative* Problem Noted [...] of this encounter (statuses as of 06/15/2022) [facility] History of Past illness Narrative* Problem Noted [...] of this encounter (statuses as of 07/14/2022) [facility] History of Past illness Narrative* Problem Noted [...] of this encounter (statuses as of 08/07/2022) [facility] History of Past illness Narrative* Problem Noted [...] of this encounter (statuses as of 09/17/2022) [facility] History of Past illness Narrative* Problem Noted [...] of this encounter (statuses as of 09/26/2022) [facility] History of Past illness Narrative* Problem Noted [...] of this encounter (statuses as of 09/30/2022) [facility] History of Past illness Narrative* Problem Noted [...] of this encounter (statuses as of 12/09/2022) [facility] History of Past illness Narrative* Problem Noted [...] of this encounter (statuses as of 03/10/2023) [facility] History of [facility] illness Narrative* Problem Noted [...] of this encounter (statuses as of 03/13/2023) [facility] History of [facility] illness Narrative* Problem Noted [...] of this encounter (statuses as of 03/24/2023) [place] [address]-23-2019 History of Past illness Narrative* Problem Noted [...] of this encounter (statuses as of 04/04/2023) [place] [address]-23-2019 History of Past illness Narrative* Problem Noted [...] of this encounter (statuses as of 04/09/2023) [facility] illness Narrative* Problem Noted [...] of this encounter (statuses as of 04/09/2023) [facility] History of Past illness Narrative* Problem Noted [...] of this encounter (statuses as of 04/10/2023) [facility] History of Past illness Narrative* Problem Noted [...] of this encounter (statuses as of 04/24/2023) [facility] History of Past illness Narrative* Problem Noted [...] of this encounter (statuses as of 05/09/2023) [facility] of Past illness Narrative* Problem Noted [...] of this encounter (statuses as of 05/27/2023) [facility] of Past illness Narrative* Problem Noted [...] precautions AM labs Herpes zoster lesion 07/29/2018 07/02/2 019 Fracture of L1 vertebra 06/02/201409/2018 Sleep apnea 04/15/2010 02/01/2019 documented as of this encounter (statuses as of 07/14/2023) [facility] Diagnosis Poliomyelitis osteopathy of multiple sites [...] for lipid disorders documented in this [facility]* Diagnosis COVID-19- Primary [facility] Neck pain, chronic Cervicalgia [facility] Diagnosis Post-polio syndrome- Primary Late effects [...] whether esophagitis present [facility] Diagnosis Obesity, Class III, 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) Morbid obesity [facility] 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 [facility] 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 [facility] Diagnosis Dysphagia, unspecified type- Primary 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 [facility] 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, multiple sites documented in this encounter [facility] Diagnosis Late effects of acute poliomyelitis- Primary Obstructive sleep apnea on CPAP Obstructive sleep apnea (adult) (pediatric) Gastroesophageal reflux disease, unspecified whether esophagitis present Neck pain, chronic Cervicalgia OAB (overactive bladder) Hypertonicity of bladder Rosacea Class 3 severe obesity with body mass index (BMI) of 40.0 to 44.9 in adult, unspecified obesity type, unspecified whether serious comorbidity present ([facility]) Glaucoma, unspecified glaucoma type, unspecified laterality Restless legs syndrome (RLS) documented in this encounter [facility] note* Diagnosis Osteopenia, unspecified location- Primary Obesity, Class III, BMI 40-49.9 (morbid obesity) ([facility]) Morbid obesity Vitamin D deficiency Unspecified vitamin D deficiency Hyperglycemia Other abnormal glucose Hyperlipidemia, mixed Mixed hyperlipidemia documented in this encounter [facility]* Diagnosis Hyperglycemia, unspecified- Primary Mixed hyperlipidemia Vitamin D deficiency, unspecified Other specified disorders of bone density and structure, unspecified site [facility] Diagnosis Unable to ambulate Difficulty in [...] left-sided sciatica- Primary documented in this [facility] Diagnosis Unable to ambulate Difficulty in [...] Obesity, Class III, BMI 40-49.9 (morbid obesity) ([facility]) Morbid obesity Poliomyelitis osteopathy of multiple sites ([facility]) (HCC) 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, 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 Hyperlipidemia, mixed Mixed hyperlipidemia Hyperglycemia Other abnormal glucose Vitamin D deficiency Unspecified vitamin D deficiency Essential hypertension Unspecified essential hypertension Primary osteoarthritis involving multiple joints Abnormality of gait Falling episodes Lack of coordination [facility] Diagnosis Unable to ambulate Difficulty in [...] pain, unspecified laterality documented in this encounter [facility] Diagnosis Unable to ambulate Difficulty in [...] region and thigh documented in this [facility] Diagnosis Unable to ambulate Difficulty in [...] history of fall [facility] Diagnosis Unable to ambulate Difficulty in [...] left-sided sciatica- Primary [facility] Diagnosis Unable to ambulate Difficulty in [...] unspecified chronicity- Primary [facility] Diagnosis Hyperglycemia, unspecified- Primary Mixed hyperlipidemia [facility] Diagnosis Unable to ambulate Difficulty in [...] unspecified genitourinary condition [facility] noteNo assessment information availableBlLong Beach Community Hospital Work Phone: Hospital Discharge instructionsAdditional Instructions Take MiraLAX consistently once or twice a day. Continue your senna.[facility] Work Phone: Hospital Discharge instructionsAmbulatory Orders* Physical Therapy Referral Location: None [facility] Work Phone: Reason for referral (narrative)* Diagnostic Procedure Only (Routine) - Pending Review Specialty Diagnoses / Procedures Referred By Lia hennessy Referred To Contact XR IMAGING Diagnoses Acute pain of right knee Procedures XR KNEE LIMITED 2V AP/LAT RIGHT RADIOLOGIC EXAMINATION KNEE 1/2 VIEWS Sahra Guy MD [address] [place] [address] [place] [address] Xr Imaging Referral ID Status Reason Start Date Expiration Date Visits Requested Visits Authorized [id number] Pending Review Auto-Generat ed Referral 10/29/2021 11/28/2022 1 1 * Physical Therapy (Routine) - Authorized Specialty Diagnoses / Procedures Referred By Lia hennessy Referred To Contact [facility] Diagnoses Poliomyelitis osteopathy of multiple sites (HCC) Acute pain of right knee Post-polio syndrome Procedures CONSULT TO PHYSICAL THERAPY PHYSICAL THERAPY EVALUATION HIGH COMPLEX 45 MINS Sahra Guy MD [address] [place] [place] [address] [facility] [place] [address] Referral ID Status Reason Start Date Expiration Date Visits Requested Visits Authorized [id number] Authorized PCP Requested Referral Auto-Generate d Referral 10/29/2021 10/29/2022 99 99 [facility] for referral (narrative)No reason for referral information availableClarence Ti-[employer] Services Work Phone: Summary Purpose Family History No Family History Records FoundNo Family History Records FoundNo Family History Records FoundNo Family History Records FoundNo Family History Records FoundNo Family History Records FoundNo Family History Records Found Advance Directives No Advanced Directives Records FoundDocuments on File Type Date Recorded 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 Advance Directive(s) Advance Directive(s) 09/07/2018 8:30 AM Advance Directive(s) 08/02/2018 10:02 AM Advance Directive(s) 07/29/2018 11:50 AM Documents on File Type Date Recorded 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 Advance Directive(s) Advance Directive(s) 09/07/2018 8:30 AM Advance Directive(s) 08/02/2018 10:02 AM Advance Directive(s) 07/29/2018 11:50 AM Documents on File Type Date Recorded 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 Advance Directive(s) 08/02/2018 10:02 AM Documents on File Type Date Recorded 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 Advance Directive(s) 08/02/2018 10:02 AM Date Activated Date Inactivated Comments 12/12/2024 6:18 PM 12/19/2024 8:25 PM Question Answer Comments Full Code Order Discussed With: Patient Advance Directive Response Recorded Date/ Time Do you have a Healthcare Power of Auto Headlight Mechanic? 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) Procedures CONSULT TO NEUROMUSCULAR MEDIC OFFICE/OUTPATIENT [facility] 60-74 MINUTES Sahra Guy MD [address] [place] [address] Referral ID Status Reason Start Date Expiration Date Visits Requested Visits Authorized [id number] Authorized PCP Requested Referral 03/10/2023 03/09/2024 1 1 Specialty Diagnoses / Procedures Referred By Contac t Referred To Contact [facility] 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) Procedures CONSULT TO PHYSICAL THERAPY PHYSICAL THERAPY EVALUATION HIGH COMPLEX 45 MINS Sahra Guy MD [address] [place] [address] [facility] [address] [address] Referral ID Status Reason Start Date Expiration Date Visits Requested Visits Authorized [id number] Authorized PCP Requested Referral Auto-Generate d Referral 03/10/2023 03/09/2024 99 99 Specialty Diagnoses / Procedures Referred By Contac t Referred To Contact [facility] Diagnoses Post-polio syndrome Procedures CONSULT TO SPEECH THERAPY OFFICE/OUTPATIENT [facility] 60-74 MINUTES Ken Trent MD [address] [place], [place] [id number] [facility] [place] [id number] Referral ID Status Reason Start Date Expiration Date Visits Requested Visits Authorized [id number] Authorized Auto-Generat ed Referral 04/03/2023 04/02/2024 99 99 Specialty Diagnoses / Procedures Referred By Contac t Referred To Contact [facility] Diagnoses Post-polio syndrome Procedures CONSULT TO PHYSICAL THERAPY PHYSICAL THERAPY EVALUATION HIGH COMPLEX 45 MINS Ken Trent MD [address] [place] [address] [facility] [place] [id number] Referral ID Status Reason Start Date Expiration Date Visits Requested Visits Authorized [id number] Authorized PCP Requested Referral Auto-Generate d Referral [...] Admit Date Compression fracture of T11 vertebra Mar ust 2024 1:26pm Degenerative disc disease (D [...] section and content) DATE CREATED AUTHOR [facility]/06/2018 [facility] DATE CREATED AUTHOR AUTHOR'S ORGANIZ ATION 09/21/2018 [facility] DATE CREATED AUTHOR AUTHOR'S ORGANIZ ATION 09/14/2024 [facility] DATE CREATED AUTHOR AUTHOR'S ORGANIZ ATION 12/28/2024 [facility] DATE CREATED AUTHOR AUTHOR'S ORGANIZ ATION 12/28/2024 [facility] DATE CREATED AUTHOR AUTHOR'S ORGANIZ ATION 03/24/2025 [facility] DATE CREATED AUTHOR AUTHOR'S ORGANGORDON ATION 06/11/2025 [facility] Comments (unrecognize d section and content) In the event this informatio n is protected by the Federal Confidentiality of Alcohol and Drug Abuse Patient Records regulations: The Federal rules restrict any use of the information to criminally investigate or prosecute any alcohol or drug abuse patient.[facility] the event this information is protected by the Federal Confidentiality of Alcohol and Drug Abuse Patient Records regulations: The Federal rules restrict any use of the information to criminally investigate or prosecute any alcohol or drug abuse patient.[facility] the event this information is protected by the Federal Confidentiality of Alcohol and Drug Abuse Patient Records regulations: The Federal rules restrict any use of the information to criminally investigate or prosecute any alcohol or drug abuse patient.[facility] the event this information is protected by the Federal Confidentiality of Alcohol and Drug Abuse Patient Records regulations: The Federal rules restrict any use of the information to criminally investigate or prosecute any alcohol or drug abuse patient.[facility] the event this information is protected by the Federal Confidentiality of Alcohol and Drug Abuse Patient Records regulations: The Federal rules restrict any use of the information to criminally investigate or prosecute any alcohol or drug abuse patient.[facility] the event this information is protected by the Federal Confidentiality of Alcohol and Drug Abuse Patient Records regulations: The Federal rules restrict any use of the information to criminally investigate or prosecute any alcohol or drug abuse patient.[facility] the event this information is protected by the Federal Confidentiality of Alcohol and Drug Abuse Patient Records regulations: The Federal rules restrict any use of the information to criminally investigate or prosecute any alcohol or drug abuse patient.[facility] the event this information is protected by the Federal Confidentiality of Alcohol and Drug Abuse Patient Records regulations: The Federal rules restrict any use of the information to criminally investigate or prosecute any alcohol or drug abuse patient.[facility] the event this information is protected by the Federal Confidentiality of Alcohol and Drug Abuse Patient Records regulations: The Federal rules restrict any use of the information to criminally investigate or prosecute any alcohol or drug abuse patient.[facility] the event this information is protected by the Federal Confidentiality of Alcohol and Drug Abuse Patient Records regulations: The Federal rules restrict any use of the information to criminally investigate or prosecute any alcohol or drug abuse patient.[facility] the event this information is protected by the Federal Confidentiality of Alcohol and Drug Abuse Patient Records regulations: The Federal rules restrict any use of the information to criminally investigate or prosecute any alcohol or drug abuse patient.[facility] the event this information is protected by the Federal Confidentiality of Alcohol and Drug Abuse Patient Records regulations: The Federal rules restrict any use of the information to criminally investigate or prosecute any alcohol or drug abuse patient.[facility] the event this information is protected by the Federal Confidentiality of Alcohol and Drug Abuse Patient Records regulations: The Federal rules restrict any use of the information to criminally investigate or prosecute any alcohol or drug abuse patient.[facility] the event this information is protected by the Federal Confidentiality of Alcohol and Drug Abuse Patient Records regulations: The Federal rules restrict any use of the information to criminally investigate or prosecute any alcohol or drug abuse patient.[facility] the event this information is protected by the Federal Confidentiality of Alcohol and Drug Abuse Patient Records regulations: The Federal rules restrict any use of the information to criminally investigate or prosecute any alcohol or drug abuse patient.[facility] the event this information is protected by the Federal Confidentiality of Alcohol and Drug Abuse Patient Records regulations: The Federal rules restrict any use of the information to criminally investigate or prosecute any alcohol or drug abuse patient.[facility]In the event this information is protected by the Federal Confidentiality of Alcohol and Drug Abuse Patient Records regulations: The Federal rules restrict any use of the information to criminally investigate or prosecute any alcohol or drug abuse patient.[facility]In the event this information is protected by the Federal Confidentiality of Alcohol and Drug Abuse Patient Records regulations: The Federal rules restrict any use of the information to criminally investigate or prosecute any alcohol or drug abuse patient.[facility]In the event this information is protected by the Federal Confidentiality of Alcohol and Drug Abuse Patient Records regulations: The Federal rules restrict any use of the information to criminally investigate or prosecute any alcohol or drug abuse patient.[facility] the event this information is protected by the Federal Confidentiality of Alcohol and Drug Abuse Patient Records regulations: The Federal rules restrict any use of the information to criminally investigate or prosecute any alcohol or drug abuse patient.[facility] the event this information is protected by the Federal Confidentiality of Alcohol and Drug Abuse Patient Records regulations: The Federal rules restrict any use of the information to criminally investigate or prosecute any alcohol or drug abuse patient.[facility] the event this information is protected by the Federal Confidentiality of Alcohol and Drug Abuse Patient Records regulations: The Federal rules restrict any use of the information to criminally investigate or prosecute any alcohol or drug abuse patient.[facility] the event this information is protected by the Federal Confidentiality of Alcohol and Drug Abuse Patient Records regulations: The Federal rules restrict any use of the information to criminally investigate or prosecute any alcohol or drug abuse patient.[facility]In the event this information is protected by the Federal Confidentiality of Alcohol and Drug Abuse Patient Records regulations: The Federal rules restrict any use of the information to criminally investigate or prosecute any alcohol or drug abuse patient.[facility]In the event this information is protected by the Federal Confidentiality of Alcohol and Drug Abuse Patient Records regulations: The Federal rules restrict any use of the information to criminally investigate or prosecute any alcohol or drug abuse patient.[facility]In the event this information is protected by the Federal Confidentiality of Alcohol and Drug Abuse Patient Records regulations: The Federal rules restrict any use of the information to criminally investigate or prosecute any alcohol or drug abuse patient.[facility] the event this information is protected by the Federal Confidentiality of Alcohol and Drug Abuse Patient Records regulations: The Federal rules restrict any use of the information to criminally investigate or prosecute any alcohol or drug abuse patient.[facility]In the event this information is protected by the Federal Confidentiality of Alcohol and Drug Abuse Patient Records regulations: The Federal rules restrict any use of the information to criminally investigate or prosecute any alcohol or drug abuse patient.[facility]In the event this information is protected by the Federal Confidentiality of Alcohol and Drug Abuse Patient Records regulations: The Federal rules restrict any use of the information to criminally investigate or prosecute any alcohol or drug abuse patient.[facility]In the event this information is protected by the Federal Confidentiality of Alcohol and Drug Abuse Patient Records regulations: The Federal rules restrict any use of the information to criminally investigate or prosecute any alcohol or drug abuse patient.[facility]In the event this information is protected by the Federal Confidentiality of Alcohol and Drug Abuse Patient Records regulations: The Federal rules restrict any use of the information to criminally investigate or prosecute any alcohol or drug abuse patient.[facility]In the event this information is protected by the Federal Confidentiality of Alcohol and Drug Abuse Patient Records regulations: The Federal rules restrict any use of the information to criminally investigate or prosecute any alcohol or drug abuse patient.[facility] the event this information is protected by the Federal Confidentiality of Alcohol and Drug Abuse Patient Records regulations: The Federal rules restrict any use of the information to criminally investigate or prosecute any alcohol or drug abuse patient.[facility] the event this information is protected by the Federal Confidentiality of Alcohol and Drug Abuse Patient Records regulations: The Federal rules restrict any use of the information to criminally investigate or prosecute any alcohol or drug abuse patient.[facility] AdministrationIn the event this information is protected by the Federal Confidentiality of Alcohol and Drug Abuse Patient Records regulations: The Federal rules restrict any use of the information to criminally investigate or prosecute any alcohol or drug abuse patient.[facility] AdministrationIn the event this information is protected by the Federal Confidentiality of Alcohol and Drug Abuse Patient Records regulations: The Federal rules restrict any use of the information to criminally investigate or prosecute any alcohol or drug abuse patient.[facility] AdministrationIn the event this information is protected by the Federal Confidentiality of Alcohol and Drug Abuse Patient Records regulations: The Federal rules restrict any use of the information to criminally investigate or prosecute any alcohol or drug abuse patient.[facility] AdministrationIn the event this information is protected by the Federal Confidentiality of Alcohol and Drug Abuse Patient Records regulations: The Federal rules restrict any use of the information to criminally investigate or prosecute any alcohol or drug abuse patient.[facility] AdministrationIn the event this information is protected by the Federal Confidentiality of Alcohol and Drug Abuse Patient Records regulations: The Federal rules restrict any use of the information to criminally investigate or prosecute any alcohol or drug abuse patient.[facility] AdministrationIn the event this information is protected by the Federal Confidentiality of Alcohol and Drug Abuse Patient Records regulations: The Federal rules restrict any use of the information to criminally investigate or prosecute any alcohol or drug abuse patient.[facility] AdministrationIn the event this information is protected by the Federal Confidentiality of Alcohol and Drug Abuse Patient Records regulations: The Federal rules restrict any use of the information to criminally investigate or prosecute any alcohol or drug abuse patient.[facility] AdministrationIn the event this information is protected by the Federal Confidentiality of Alcohol and Drug Abuse Patient Records regulations: The Federal rules restrict any use of the information to criminally investigate or prosecute any alcohol or drug abuse patient.[facility] AdministrationIn the event this information is protected by the Federal Confidentiality of Alcohol and Drug Abuse Patient Records regulations: The Federal rules restrict any use of the information to criminally investigate or prosecute any alcohol or drug abuse patient.[facility] AdministrationIn the event this information is protected by the Federal Confidentiality of Alcohol and Drug Abuse Patient Records regulations: The Federal rules restrict any use of the information to criminally investigate or prosecute any alcohol or drug abuse patient.[facility] AdministrationIn the event this information is protected by the Federal Confidentiality of Alcohol and Drug Abuse Patient Records regulations: The Federal rules restrict any use of the information to criminally investigate or prosecute any alcohol or drug abuse patient.[facility] AdministrationIn the event this information is protected by the Federal Confidentiality of Alcohol and Drug Abuse Patient Records regulations: The Federal rules restrict any use of the information to criminally investigate or prosecute any alcohol or drug abuse patient.[facility] AdministrationIn the event this information is protected by the Federal Confidentiality of Alcohol and Drug Abuse Patient Records regulations: The Federal rules restrict any use of the information to criminally investigate or prosecute any alcohol or drug abuse patient.[facility] AdministrationIn the event this information is protected by the Federal Confidentiality of Alcohol and Drug Abuse Patient Records regulations: The Federal rules restrict any use of the information to criminally investigate or prosecute any alcohol or drug abuse patient.[facility] AdministrationIn the event this information is protected by the Federal Confidentiality of Alcohol and Drug Abuse Patient Records regulations: The Federal rules restrict any use of the information to criminally investigate or prosecute any alcohol or drug abuse patient.[facility] AdministrationIn the event this information is protected by the Federal Confidentiality of Alcohol and Drug Abuse Patient Records regulations: The Federal rules restrict any use of the information to criminally investigate or prosecute any alcohol or drug abuse patient.[facility] AdministrationIn the event this information is protected by the Federal Confidentiality of Alcohol and Drug Abuse Patient Records regulations: The Federal rules restrict any use of the information to criminally investigate or prosecute any alcohol or drug abuse patient.[facility] AdministrationIn the event this information is protected by the Federal Confidentiality of Alcohol and Drug Abuse Patient Records regulations: The Federal rules restrict any use of the information to criminally investigate or prosecute any alcohol or drug abuse patient.[facility] AdministrationIn the event this information is protected by the Federal Confidentiality of Alcohol and Drug Abuse Patient Records regulations: The Federal rules restrict any use of the information to criminally investigate or prosecute any alcohol or drug abuse patient.[facility] AdministrationIn the event this information is protected by the Federal Confidentiality of Alcohol and Drug Abuse Patient Records regulations: The Federal rules restrict any use of the information to criminally investigate or prosecute any alcohol or drug abuse patient.[facility] AdministrationIn the event this information is protected by the Federal Confidentiality of Alcohol and Drug Abuse Patient Records regulations: The Federal rules restrict any use of the information to criminally investigate or prosecute any alcohol or drug abuse patient.[facility] AdministrationIn the event this information is protected by the Federal Confidentiality of Alcohol and Drug Abuse Patient Records regulations: The Federal rules restrict any use of the information to criminally investigate or prosecute any alcohol or drug abuse patient.[facility] AdministrationIn the event this information is protected by the Federal Confidentiality of Alcohol and Drug Abuse Patient Records regulations: The Federal rules restrict any use of the information to criminally investigate or prosecute any alcohol or drug abuse patient.[facility] AdministrationIn the event this information is protected by the Federal Confidentiality of Alcohol and Drug Abuse Patient Records regulations: The Federal rules restrict any use of the information to criminally investigate or prosecute any alcohol or drug abuse patient.[facility] AdministrationIn the event this information is protected by the Federal Confidentiality of Alcohol and Drug Abuse Patient Records regulations: The Federal rules restrict any use of the information to criminally investigate or prosecute any alcohol or drug abuse patient.[facility] AdministrationIn the event this information is protected by the Federal Confidentiality of Alcohol and Drug Abuse Patient Records regulations: The Federal rules restrict any use of the information to criminally investigate or prosecute any alcohol or drug abuse patient.[facility] AdministrationIn the event this information is protected by the Federal Confidentiality of Alcohol and Drug Abuse Patient Records regulations: The Federal rules restrict any use of the information to criminally investigate or prosecute any alcohol or drug abuse patient.[facility] AdministrationIn the event this information is protected by the Federal Confidentiality of Alcohol and Drug Abuse Patient Records regulations: The Federal rules restrict any use of the information to criminally investigate or prosecute any alcohol or drug abuse patient.[facility] AdministrationIn the event this information is protected by the Federal Confidentiality of Alcohol and Drug Abuse Patient Records regulations: The Federal rules restrict any use of the information to criminally investigate or prosecute any alcohol or drug abuse patient.[facility] AdministrationIn the event this information is protected by the Federal Confidentiality of Alcohol and Drug Abuse Patient Records regulations: The Federal rules restrict any use of the information to criminally investigate or prosecute any alcohol or drug abuse patient.[facility] AdministrationIn the event this information is protected by the Federal Confidentiality of Alcohol and Drug Abuse Patient Records regulations: The Federal rules restrict any use of the information to criminally investigate or prosecute any alcohol or drug abuse patient.[facility] AdministrationIn the event this information is protected by the Federal Confidentiality of Alcohol and Drug Abuse Patient Records regulations: The Federal rules restrict any use of the information to criminally investigate or prosecute any alcohol or drug abuse patient.[facility] AdministrationIn the event this information is protected by the Federal Confidentiality of Alcohol and Drug Abuse Patient Records regulations: The Federal rules restrict any use of the information to criminally investigate or prosecute any alcohol or drug abuse patient.[facility] AdministrationIn the event this information is protected by the Federal Confidentiality of Alcohol and Drug Abuse Patient Records regulations: The Federal rules restrict any use of the information to criminally investigate or prosecute any alcohol or drug abuse patient.[facility] AdministrationIn the event this information is protected by the Federal Confidentiality of Alcohol and Drug Abuse Patient Records regulations: The Federal rules restrict any use of the information to criminally investigate or prosecute any alcohol or drug abuse patient.[facility] AdministrationIn the event this information is protected by the Federal Confidentiality of Alcohol and Drug Abuse Patient Records regulations: The Federal rules restrict any use of the information to criminally investigate or prosecute any alcohol or drug abuse patient.[facility] AdministrationIn the event this information is protected by the Federal Confidentiality of Alcohol and Drug Abuse Patient Records regulations: The Federal rules restrict any use of the information to criminally investigate or prosecute any alcohol or drug abuse patient.[facility] AdministrationIn the event this information is protected by the Federal Confidentiality of Alcohol and Drug Abuse Patient Records regulations: The Federal rules restrict any use of the information to criminally investigate or prosecute any alcohol or drug abuse patient.[facility] AdministrationIn the event this information is protected by the Federal Confidentiality of Alcohol and Drug Abuse Patient Records regulations: The Federal rules restrict any use of the information to criminally investigate or prosecute any alcohol or drug abuse patient.[facility] AdministrationIn the event this information is protected by the Federal Confidentiality of Alcohol and Drug Abuse Patient Records regulations: The Federal rules restrict any use of the information to criminally investigate or prosecute any alcohol or drug abuse patient.[facility] AdministrationIn the event this information is protected by the Federal Confidentiality of Alcohol and Drug Abuse Patient Records regulations: The Federal rules restrict any use of the information to criminally investigate or prosecute any alcohol or drug abuse patient.[facility] AdministrationIn the event this information is protected by the Federal Confidentiality of Alcohol and Drug Abuse Patient Records regulations: The Federal rules restrict any use of the information to criminally investigate or prosecute any alcohol or drug abuse patient.[facility] AdministrationIn the event this information is protected by the Federal Confidentiality of Alcohol and Drug Abuse Patient Records regulations: The Federal rules restrict any use of the information to criminally investigate or prosecute any alcohol or drug abuse patient.[facility] AdministrationIn the event this information is protected by the Federal Confidentiality of Alcohol and Drug Abuse Patient Records regulations: The Federal rules restrict any use of the information to criminally investigate or prosecute any alcohol or drug abuse patient.[facility] AdministrationIn the event this information is protected by the Federal Confidentiality of Alcohol and Drug Abuse Patient Records regulations: The Federal rules restrict any use of the information to criminally investigate or prosecute any alcohol or drug abuse patient.[facility] AdministrationIn the event this information is protected by the Federal Confidentiality of Alcohol and Drug Abuse Patient Records regulations: The Federal rules restrict any use of the information to criminally investigate or prosecute any alcohol or drug abuse patient.[facility] AdministrationIn the event this information is protected by the Federal Confidentiality of Alcohol and Drug Abuse Patient Records regulations: The Federal rules restrict any use of the information to criminally investigate or prosecute any alcohol or drug abuse patient.[facility] Reason for Visit (unrecogniz ed section and [...] 03/11/2023 Reason Comments Orders OT referral request [facility] Reason Comments post polio Specialty Diagnoses / Procedures Referred By Lia hennessy Referred To Contact 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) Procedures CONSULT TO NEUROMUSCULAR MEDIC OFFICE/OUTPATIENT [facility] 60-74 MINUTES Sahra Guy MD [address] [place] [address] [place] [address] Referral ID Status Reason Start Date Expiration Date V isits Requested Visits Authorized [id number] Closed PCP Requested Referral 03/10/2023 03/09/2024 1 1 Reason Comments Director Food Safety - Other Reason Comments Speech Evaluation Speech Therapy Speech Discharge Specialty Diagnoses / Procedures Referred By Lia hennessy Referred To Contact [facility] Diagnoses Post-polio syndrome Procedures CONSULT TO SPEECH THERAPY OFFICE/OUTPATIENT [facility] 60-[place] [address] [place] [id number] [facility] [place] [address] [place] [address] Referral ID Status Reason Start Date Expiration Date Visits Requested Visits Authorized [id number] Authorized Auto-Generat ed Referral 04/03/2023 04/02/2024 99 99 Reason Comments PT Eval PT Discharge Specialty Diagnoses / Procedures Referred By Contac t Referred To Contact [facility] 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) Procedures CONSULT TO PHYSICAL THERAPY PHYSICAL THERAPY EVALUATION HIGH COMPLEX 45 MINS Sahra Guy MD [address] [facility] [address] [facility] [address] [address] Referral ID Status Reason Start Date Expiration Date Visits Requested Visits Authorized [id number] Authorized PCP Requested Referral Auto-Generate d Referral 03/10/2023 03/09/2024 99 99 Reason Comments Received Outside Medical Records [facility] I Move in Assessment 11/25/2023 Patient Update Reason Comments Forms Reason Onset Date Comments Refill Request 01/12/2024 Reason Onset Date Comments Refill Request 01/25/2024 Reason Onset Date Comments Refill Request 02/23/2024 Reason Comments Orders Labs fax to [facility] Reason Comments RSV vaccine Reason Comments Question Reason Comments Patient Question Reason Onset Date Comments Refill Request 06/20/2024 Reason Comments Orders [facility] erty Reason Onset Date Comments Refill Request 07/05/2024 Reason Comments Muscle Aches Reason Comments Low Back Pain Reason Comments Orders PT and OT Reason Comments Patient Update At office visit on please fill all Rx's that apply per patient [facility] mail order Reason Comments Medicare Wellness [...] Reason Comments PT Eval Reason Comments Orders [facility] Reason Comments Received Outside Medical Records [facility] [place] OT Evaluation performed no further treatment. 10/20/2024 [...] Health Navigation Outreach 01/09/2025 [employer] [facility] [place] [facility] Reason Comments Consult Urinary Frequency FREQUENT UTI Reason Comments Results Orders Reason Comments FYI-No Action Needed Care Teams (unrecognized sec tion and content) [employer] Coordinator Relationship Specialty Start Date End Date Sahra Guy MD [address] [facility] [address] [place], [place] [phone] PCP - General Family Practice 02/20/16 [employer] Coordinator Relationship Specialty Start Date End Date Sahra Guy MD [address] [place] [address] [address] [place], [place] [phone] PCP - General Family Practice 02/20/16 [employer] Coordinator Relationship Specialty Start Date End Date Sahra Guy MD [address] [facility] [address] [place], [place] [id number] PCP - General Family Practice 02/20/16 [employer] Coordinator Relationship Specialty Start Date End Date Sahra Guy MD [address] [facility] [address] [place], [place] [id number] PCP - General Family Practice 02/20/16 [employer] Coordinator Relationship Specialty Start Date End Date Sahra Guy MD [address] [facility] [address] [place], [place] [phone] PCP - General Family Practice 02/20/16 [employer] Coordinator Relationship Specialty Start Date End Date Sahra Guy MD [address] [facility] [address] [place], [place] [phone] PCP - General Family Practice 02/20/16 [employer] Coordinator Relationship Specialty Start Date End Date Sahra Guy MD [address] [facility] [place] [address] PCP - General Family Practice 02/20/16 [employer] Coordinator Relationship Specialty Start Date End Date Sahra Guy MD [address] [facility] [place] [address] PCP - General Family Medicine 02/20/16 [employer] Coordinator Relationship Specialty Start Date End Date Sahra Guy MD [address] [facility] [place] [address] PCP - General Family Medicine 02/20/16 [employer] Coordinator Relationship Specialty Start Date End Date Sahra Guy MD [address] [facility] [place] [address] PCP - General Family Medicine 02/20/16 [employer] Coordinator Relationship Specialty Start Date End Date Sahra Guy MD [address] [facility] [place] [address] PCP - General Family Medicine 02/20/16 [employer] Coordinator Relationship Specialty Start Date End Date Sahra Guy MD [address] [facility] [place] [address] PCP - General Family Medicine 02/20/16 [employer] Coordinator Relationship Specialty Start Date End Date Sahra Guy MD [address] [facility] [place] [address] PCP - General Family Medicine 02/20/16 [employer] Market Coordinator Relationship Specialty Start Date End Date Sahra Guy MD [address] [facility] [place] [address] PCP - General Family Medicine 02/20/16 [employer] Coordinator Relationship Specialty Start Date End Date Sahra Guy MD [address] [facility] [place] [address] PCP - General Family Medicine 02/20/16 [employer] Market Coordinator Relationship Specialty Start Date End Date Sahra Guy MD [address] [facility] [place] [address] PCP - General Family Medicine 02/20/16 [employer] Coordinator Relationship Specialty Start Date End Date Sahra Guy MD [address] [facility] [place] [address] PCP - General Family Medicine 02/20/16 [employer] Market Coordinator Relationship Specialty Start Date End Date Sahra Guy MD [address] [facility] [place] [address] PCP - General Family Medicine 02/20/16 [employer] Market Coordinator Relationship Specialty Start Date End Date Sahra Guy MD [address] [facility] [place] [address] PCP - General Family Medicine 02/20/16 [employer] Market Coordinator Relationship Specialty Start Date End Date Sahra Guy MD [address] [facility] [place] [address] PCP - General Family Medicine 02/20/16 [employer] Market Coordinator Relationship Specialty Start Date End Date Sahra Guy MD [address] [facility] [place] [address] PCP - General Family Medicine 02/20/16 [employer] Market Coordinator Relationship Specialty Start Date End Date Sahra Guy MD [address] [facility] [place] [address] PCP - General Family Medicine 02/20/16 [employer] Market Coordinator Relationship Specialty Start Date End Date Sahra Guy MD [address] [facility] [place] [address] PCP - General Family Medicine 02/20/16 [employer] Market Coordinator Relationship Specialty Start Date End Date Sahra Guy MD [address] [facility] [place] [address] PCP - General Family Medicine 02/20/16 [employer] Market Coordinator Relationship Specialty Start Date End Date Sahra Guy MD [address] [facility] [place] [address] PCP - General Family Medicine 02/20/16 Senior [employer] Market Coordinator Relationship Specialty Start Date End Date Sahra Guy MD [address] [facility] [place] [address] PCP - General Family Medicine 02/20/16 [employer] Market Coordinator Relationship Specialty Start Date End Date Sahra Guy MD [address] [facility] [place] [address] PCP - General Family Medicine 02/20/16 [employer] Market Coordinator Relationship Specialty Start Date End Date Sahra Guy MD [address] [facility] [place] [address] PCP - General Family Medicine 02/20/16 [employer] Market Coordinator Relationship Specialty Start Date End Date Sahra Guy MD [address] [facility] [address] [place], [place] [address] PCP - General Family Medicine 02/20/16 [employer] Coordinator Relationship Specialty Start Date End Date Sahra Guy MD [address] [facility] [address] [place], [place] [address] PCP - General Family Medicine 02/20/16 [employer] Coordinator Relationship Specialty Start Date End Date Sahra Guy [address] [facility] [address] [place], [place] [address] PCP - General 03/14/17 [employer] Coordinator Relationship Specialty Start Date End Date Sahra Guy MD [address] [facility] [address] [place], [place] [address] PCP - General Family Medicine 02/20/16 [employer] Coordinator Relationship Specialty Start Date End Date Sahra Guy MD [address] [facility] [address] [place], [place] [address] PCP - General Family Medicine 02/20/16 Leonid Leal APRN.ENVIRONMENTAL SOLUTIONS ENGINEER [address] [facility] [address] [place], [place] [address] Small Arms Repairer Internal Medicine 07/10/24 [employer] Coordinator Relationship Specialty Start Date End Date Sahra Guy MD [address] [facility] [address] [place], [place] [address] PCP - General Family Medicine 02/20/16 Leonid Leal, POOJA.ENVIRONMENTAL SOLUTIONS ENGINEER [address] [facility] [address] [place], [place] [address] Small Arms Repairer Internal Medicine 07/10/24 [employer] Coordinator Relationship Specialty Start Date End Date Sahra Guy MD [address] [facility] [address] [place], [place] [address] PCP - General Family Medicine 02/20/16 Leonid Leal APRN.ENVIRONMENTAL SOLUTIONS ENGINEER [address] [facility] [address] [place], [place] [address] Small Arms Repairer Internal Medicine 07/10/24 [employer] Coordinator Relationship Specialty Start Date End Date Sahra Guy MD [address] [facility] [place] [id number] PCP - General Family Medicine 02/20/16 Leonid Leal, AFRICAN STUDIES PROFESSOR.ENVIRONMENTAL SOLUTIONS ENGINEER [address] [facility] [place] [address] Small Arms Repairer Internal Medicine 07/10/24 Senior Energy Market Coordinator Relationship Specialty Start Date End Date Sahra Guy MD [address] [facility] [place] [address] PCP - General Family Medicine 02/20/16 Leonid Leal, AFRICAN STUDIES PROFESSOR.ENVIRONMENTAL SOLUTIONS ENGINEER [address] [facility] [place] [address] Small Arms Repairer Internal Medicine 07/10/24 Senior Energy Market Coordinator Relationship Specialty Start Date End Date Sahra Guy MD [address] [facility] [place] [address] PCP - General Family Medicine 02/20/16 Leonid Leal, AFRICAN STUDIES PROFESSOR.ENVIRONMENTAL SOLUTIONS ENGINEER [address] [facility] [place] [address] Small Arms Repairer Internal Medicine 07/10/24 Senior Energy Market Coordinator Relationship Specialty Start Date End Date Sahra Guy MD [address] [facility] [place] [address] PCP - General Family Medicine 02/20/16 Leonid Leal, AFRICAN STUDIES PROFESSOR.ENVIRONMENTAL SOLUTIONS ENGINEER [address] [facility] [place] [address] Small Arms Repairer Internal Medicine 07/10/24 Senior Energy Market Coordinator Relationship Specialty Start Date End Date Sahra Guy MD [address] [facility] [place] [address] PCP - General Family Medicine 02/20/16 Leonid Leal, AFRICAN STUDIES PROFESSOR.ENVIRONMENTAL SOLUTIONS ENGINEER [address] [facility] [place] [address] Small Arms Repairer Internal Medicine 07/10/24 Senior Energy Market Coordinator Relationship Specialty Start Date End Date Sahra Guy MD [address] [facility] [place] [address] PCP - General Family Medicine 02/20/16 Leonid Leal, AFRICAN STUDIES PROFESSOR.ENVIRONMENTAL SOLUTIONS ENGINEER [address] [facility] [place] [address] Small Arms Repairer Internal Medicine 07/10/24 Senior Energy Market Coordinator Relationship Specialty Start Date End Date Sahra Guy MD [address] [facility] [place] [address] PCP - General Family Medicine 02/20/16 Leonid Leal, AFRICAN STUDIES PROFESSOR.ENVIRONMENTAL SOLUTIONS ENGINEER [address] [facility] [place] [address] Small Arms Repairer Internal Medicine 07/10/24 Senior Energy Market Coordinator Relationship Specialty Start Date End Date Sahra Guy MD [address] [facility] [place] [address] PCP - General Family Medicine 02/20/16 Leonid Leal, AFRICAN STUDIES PROFESSOR.ENVIRONMENTAL SOLUTIONS ENGINEER [address] [facility] [place] [address] Small Arms Repairer Internal Medicine 07/10/24 Senior Energy Market Coordinator Relationship Specialty Start Date End Date Sahra Guy MD [address] [facility] [place] [address] PCP - General Family Medicine 02/20/16 Leonid Leal AFRICAN STUDIES PROFESSOR.ENVIRONMENTAL SOLUTIONS ENGINEER [address] [facility] [place] [address] Small Arms Repairer Internal Medicine 07/10/24 Senior Energy Market Coordinator Relationship Specialty Start Date End Date Sahra Guy MD [address] [facility] [place] [address] PCP - General Family Medicine 02/20/16 Leonid Leal, AFRICAN STUDIES PROFESSOR.ENVIRONMENTAL SOLUTIONS ENGINEER [address] [facility] [place] [address] Small Arms Repairer Internal Medicine 07/10/24 Senior Energy Market Coordinator Relationship Specialty Start Date End Date Sahra Guy MD [address] [facility] [place] [address] PCP - General Family Medicine 02/20/16 Leonid Leal, AFRICAN STUDIES PROFESSOR.ENVIRONMENTAL SOLUTIONS ENGINEER [address] [facility] [address] [place], [place] [address] Small Arms Repairer Internal Medicine 07/10/24 Senior Energy Market Coordinator Relationship Specialty Start Date End Date Sahra Guy MD [address] [facility] [place] [address] PCP - General Family Medicine 02/20/16 Leonid Leal, AFRICAN STUDIES PROFESSOR.ENVIRONMENTAL SOLUTIONS ENGINEER [address] [facility] [address] [place], [place] [address] Small Arms Repairer Internal Medicine 07/10/24 Senior Energy Market Coordinator Relationship Specialty Start Date End Date Sahra Guy MD [address] [facility] [address] [place], [place] [address] PCP - General Family Medicine 02/20/16 Leonid Leal, AFRICAN STUDIES PROFESSOR.ENVIRONMENTAL SOLUTIONS ENGINEER [address] [facility] [address] [place], [place] [address] Small Arms Repairer Internal Medicine 07/10/24 Senior Energy Market Coordinator Relationship Specialty Start Date End Date Sahra Guy MD [address] [facility] [address] [place], [place] [address] [phone] PCP - General Family Medicine 02/20/16 Leonid Leal, AFRICAN STUDIES PROFESSOR.ENVIRONMENTAL SOLUTIONS ENGINEER [address] [facility] [address] [place], [place] [address] Small Arms Repairer Internal Medicine 07/10/24 Senior Energy Market Coordinator Relationship Specialty Start Date End Date Sahra Guy MD [address] [facility] [address] [place], [place] [address] PCP - General Family Medicine 02/20/16 Leonid Leal, AFRICAN STUDIES PROFESSOR.ENVIRONMENTAL SOLUTIONS ENGINEER [address] [facility] [address] [place], [place] [address] Small Arms Repairer Internal Medicine 07/10/24 Senior Energy Market Coordinator Relationship Specialty Start Date End Date Sahra Guy MD [address] [facility] [address] [place], [place] [address] [phone] PCP - General Family Medicine 02/20/16 Leonid Leal, AFRICAN STUDIES PROFESSOR.ENVIRONMENTAL SOLUTIONS ENGINEER [address] [facility] [address] [place], [place] [address] Small Arms Repairer Internal Medicine 07/10/24 Senior Energy Market Coordinator Relationship Specialty Start Date End Date Sahra Guy MD [address] [facility] [address] [place] [address] PCP - General Family Medicine 02/20/16 Leonid Leal, AFRICAN STUDIES PROFESSOR.ENVIRONMENTAL SOLUTIONS ENGINEER [address] [facility] [address] [place], [place] [address] Small Arms Repairer Internal Medicine 07/10/24 Senior Energy Market Coordinator Relationship Specialty Start Date End Date Sahra Guy MD [address] [facility] [address] [place], [place] [address] PCP - General Family Medicine 02/20/16 Leonid Leal, AFRICAN STUDIES PROFESSOR.ENVIRONMENTAL SOLUTIONS ENGINEER [address] [facility] [address] [place], [place] [address] Small Arms Repairer Internal Medicine 07/10/24 Team Status: Active Member [...] Status: Active Member Role/Relationship Status Dates Chey THMOAS MD Attending Provider Active Start: January 24, [...] Member Role/Relationship Status Dates Roxanne Padilla NP, LIME FILTER OPERATOR-C Attending Provider Active Start: December 22, [...] Member Role/Relationship Status Dates Roxanne Padilla NP, LIME FILTER OPERATOR-C Attending Provider Active Start: December 28, [...] Member Role/Relationship Status Dates Roxanne Padilla NP, LIME FILTER OPERATOR-C Attending Provider Active Start: January 09, [...] Inactive Member Role/Relationship Status Dates Roxanne Padilla LIME FILTER OPERATOR, LIME FILTER OPERATOR-C Attending Provider Active Start: January 10, [...] Member Role/Relationship Status Dates Roxanne Padilla NP, LIME FILTER OPERATOR-C Attending Provider Active Start: January 19, [...] Member Role/Relationship Status Dates Roxanne Padilla NP, LIME FILTER OPERATOR-C Attending Provider Active Start: January 24, [...] Inactive Member Role/Relationship Status Dates Roxanne Padilla LIME FILTER OPERATOR, LIME FILTER OPERATOR-C Attending Provider Active Start: January 09, [...] 2025 End: March 07, 2025 Roxanne Padilla LIME FILTER OPERATOR, LIME FILTER OPERATOR-C Attending Provider Active Start: March 07, 2025 [...] 2025 End: March 20, 2025 Roxanne Padilla LIME FILTER OPERATOR, LIME FILTER OPERATOR-C Attending Provider Active Start: March 20, 2025 [...] 2025 End: March 24, 2025 Roxanne Padilla LIME FILTER OPERATOR, LIME FILTER OPERATOR-C Attending Provider Active Start: March 24, 2025 [...] BE BASED ON THE PRIMARY CLINICAL RECORDS. [facility] [employer] [facility]. provides no warranty or guarantee of the accuracy or completeness of information in this document.
[2025-06-30 07:58] LABS: Vitamin D,25 Hydroxy 57.0 ng/mL (30-100)
[2025-06-30 07:59] LABS: AST(SGOT) 30 U/L (<=31); Alanine Aminotransfer ALT/SGPT < 5 U/L (<=34); Albumin, Serum 3.1 g/dL (3.4-4.8); Alkaline Phosphatase 78 U/L (35-104); Bilirubin, Direct < 0.08 mg/dL (0.00-0.30); Globulin 3.0 g/dL (2.2-4.2)
== END ==
LOC: OLS.WHLEAS 05:00
PROVIDERS: PCP Internal Medicine; Visit Provider Internal Medicine
DX: E55.9 Vitamin D deficiency, unspecified (principal); R73.9 Hyperglycemia, unspecified; G82.22 Paraplegia, incomplete; D50.9 Iron deficiency anemia, unspecified; I10 Essential (primary) hypertension
CPT/HCPCS: 36415; 80076; 82306; 83036

== ENCOUNTER → 2025-07-05 05:00 | Outpatient (REF) | payer MEDICARE, SELFPAY ==
--- OUTSIDE RECORDS SUMMARY | 2025-07-05 04:12 | XMS RPT_ITS | CCD ---
Author Organization [facility] CliniSyfl Care Team Providers Care Surveyor Name Role Phone PROVIDER, UNKNOWN Unavailable Unavailable [...] Provider Sahra Guy Primary Care Provider Mel STAINING MACHINE OPERATOR.SUPERVISOR ORCHARD, Leonid Unavailable SAHRA GUY Attending Unavailable SAHRA GUY Referring Unavailable SAHRA UGY Primary Care Unavailable LEONID ROACH Attending Unavailable LEONID ROACH Referring Unavailable SAHRA GUY Primary Care Unavailable SAHRA GUY Primary Care Unavailable MORIAH LOPEZ Attending Unavailable THNU, GEORGINA A Admitting Unavailable DIANE WILSON Attending Unavailable ZAYNAB VALENCIA Admitting Unavailable SAHRA GUY Primary Care Unavailable Chey Kumar MD Attending Provider Unavailurban Kumar MD, Dr. Guerrier Attending Provider [phone] Valerie GUTIERREZ-Roxanne Singh Attending Provider Oleghe MD, [...] Provider Lorie MADDEN, Dr. Mo Attending Provider [phone] Stacy MADDEN, Dr. Guerrier Primary Care Provider Vicente Leon MD Attending Provider [phone] Oleghe OLS, Efewongbe Attending Unavailabl e [...] e Oleghe, Efewongbe Primary Care Unavailable Tickton STAFF SCIENTIST, Roxanne Attending Unavailable [place] STAFF SCIENTIST, Roxanne Attending Unavailable Oleghe, Efewongbe Attending Unavailable Tyra Osorio Attending Unavailable Oleghe, Efewongbe Referring Unavailable Oleghe, Efewongbe Primary Care Unavailable Oleghe, Efewongbe Primary Care Unavailable Oleghe OLS, Efewongbe Attending Unavailabl e [place]ickton STAFF SCIENTIST, Roxanne Attending Unavailable Oleghe, Efewongbe Primary Care Unavailable Oleghe OLS, Efewongbe Attending Unavailabl e [place]ickton STAFF SCIENTIST, Roxanne Attending Unavailable Oleghe, Efewongbe Primary Care Unavailable [place] STAFF SCIENTIST, Roxanne Attending Unavailable Oleghe, Efewongbe Primary Care Unavailable Oleghe, Efewongbe Primary Care Unavailable Oleghe, Efewongbe Attending Unavailable Oleghe, Efewongbe Attending Unavailable [place]ton STAFF SCIENTIST, Roxanne Attending Unavailable [place] STAFF SCIENTIST, Roxanne Attending Unavailable [place] STAFF SCIENTIST, Roxanne Attending Unavailable [place] STAFF SCIENTIST, Roxanne Attending Unavailable Oleghe OLS, Efewongbe Attending Unavailabl e Allergies Allergy Classification Reported Allergen(s) Allergy Type Date of Onset Reaction(s) Facility (20 sources) Cephalexin; Translations: [CEPHALEXIN] Drug Allergy 5 Diarrhea, GI Upset [facility] Repository (20 sources) Ibuprofen; Translations: [IBUPROFEN] Drug Allergy 5 Intolerance [facility] (20 sources) rofecoxib; Translations: [ROFECOXIB] Drug Allergy 5 Intolerance [facility] (20 sources) Salicylic Acid; Translations: [SALICYLATES] Drug Allergy 5 Intolerance [facility] Rep[facility] (1 source) OTHER; Translations: [OTHER] Propensity to adverse reactions (disorder) [facility] (20 sources) OMEGA-3 FATTY ACIDS-VITAMIN E; Translations: [OMEGA-3 FATTY ACIDS-VITAMIN E] Propensity to adverse reactions (disorder) 7 Intolerance [facility] (20 sources) novacaine [Other] Propensity to adverse reactions 5 Intolerance [facility] (20 sources) Procaine; Translations: [PROCAINE HCL] Drug Allergy 4 Intolerance [facility] Work Phone: (7 sources) NSAIDs; Translations: [NSAIDS (NON-STEROIDAL ANTI-INFLAMMATO RY DRUG)] Propensity to adverse reactions to drug 5 Unknown [facility] (15 sources) Cephalexin; Translations: [cephalexin monohydrate] Drug Allergy 4 Diarrhea [facility] (15 sources) BLOOD THINNERS; Translations: [BLOOD THINNERS] Propensity to adverse reactions 4 Other [facility] Comment on above: BLOOD FROM EYE [...] mg/ml ophthalmic solution (10 sources) Plasma Volume Geographic Information Systems Analyst Start: 03-30-2025 Dextran 70-Hypromellose drops Active 1 NMA OPHTHALMIC TWICE A DAY March 30, 2025 12:00am dextran 70-hypro mellose (ARTIFICIAL TEARS,[id number],) 0.1-0.3 % ophthalmic solution Use 1 drop in both eyes two times a day. Active docusate sodium 50 mg / sennosides, detention 8.6 mg oral tablet (6 sources) Start: [...] 325 mg by mouth every other day. luuiimic-amqq-vic0-C -lety-bosw (OSTEO BI-FLEX TRIPLE STRENGTH) 750 mg-644 mg- 30 mg-1 mg tab (6 sources) take 1 tablet by mouth once daily fufhunzn-sbmw-tvo3- C-lety-bosw (OSTEO BI-FLEX TRIPLE STRENGTH) 750 mg-644 [...] mouth once daily. Active polyethylene glycol 3350 07599 mg powder for oral solution (6 sources) [...] eyes two times a day. Active rutin/hesp/bioflav/C/ uljspz068 (BIOFLEX ORAL) (20 sources) take 1 capsule by mouth twice daily rutin/hesp/bioflav/C /jmaytr198 (BIOFLEX ORAL) Take 1 capsule by mouth twice daily. Suspended take 1 capsule by mo uth twice daily rutin/hesp/bioflav/C/baxajc443 (BIOFLEX ORAL) Take 1 capsule by mouth twice daily. Active take 1 capsule by mo uth twice daily rutin/hesp/bioflav/C/xuvdne514 (BIOFLEX ORAL) Take 1 capsule by mouth [...] Ergocalciferol (Vitamin D2) 2,000 UNIT tablet Discontinued 05676 U PO EVERY WEEK March 10, 2014 [...] of occurrence (1 source) Unspecified place in residential as the place of occurrence of the external cause; Translations: [Fall at residential, subsequent encounter] Onset: 5 Episodic Esophageal disorders [...] [Disorder of bone, unspecified] 03-26-2007 Episodic Other MATERIAL CARRIER infection and poliomyelitis (20 sources) Post poliomyelitis [...] Translations: [Thoracic compression fracture, closed, initial encounter ([facility])] Onset: 5 Episodic Other fractures (14 sources) [...] E Codes: Fall (9 sources) Fall in residential; Translations: [Unspecified fall, initial encounter] Onset: 12-08-2024 [...] Auto (Unsp spec) [#/Vol] 1.77 10*3/uL 0.83-4.51 [facility] Absolute neutrophil countOrd ered By: Chey Kumar on 04-05-2025 Neutrophils (Bld) [#/Vol] 2.8 10*3/uL 2.0-7.7 [facility] Anion gap in Serum or Plasma Ordered By: Chey Kumar on 04-05-2025 Anion gap [Moles/Vol] 8 mmol/L 5-15 [facility] Automated lymphocyte count a s percentage of total leukocytesOrdered By: Chey Kumar on 04-05-2025 Lymphocytes/100 WBC Auto (Unsp spec) 32.5 % 19-41 [facility] BUN/creatinine ratioOrdered By: Chey Kumar on 04-05-2025 Urea nitrogen/Creatinine [Mass ratio] 60.2 mg/mg High 10-20 [facility] Basophil percentageOrdered B y: Chey Kumar on 04-05-2025 Basophils/100 WBC (Bld) 0.9 % 0-1 [facility] Bilirubin directOrdered By: Chey Kumar on 04-05-2025 Bilirubin.direct [Mass/Vol] 0.10 mg/dL 0.00-0.30 [facility] Comment on above: Hemolysis present, R esults could be affected. Bilirubin, totalOrdered By: Chey Kumar on 04-05-2025 Bilirubin [Mass/Vol] 0.27 mg/dL 0.00-1.30 [facility] Carbon dioxide, total [Moles /volume] in Central venous bloodOrdered By: Chey Kumar on 04-05-2025 CO2 [Moles/Vol] 25.0 mmol/L 21.0-32.0 [facility] Chloride assayOrdered By: Walt Kumar on 04-05-2025 Chloride [Moles/Vol] 105 mmol/L 98-108 [facility] Eosinophil percentageOrdered By: Chey Kumar on 04-05-2025 Eosinophils/100 WBC (Bld) 2.0 % 0-5 [facility] Erythrocyte distribution wid th ratioOrdered By: Chey Kumar on 04-05-2025 Erythrocyte distribution width (RBC) [Ratio] 13.2 % 11.6-14.6 [facility] Erythrocyte distribution wid th standard deviationOrdered By: Chey Kumar on 04-05-2025 Erythrocyte distribution width (RBC) [Ratio] 44.5 fl High 35.1-43.9 [facility] Glomerular filtration rate ( GFR) estimation/1.73 sq m using serum, plasma, or whole bOrdered By: Chey Kumar on 04-05-2025 GFR/1.73 sq M.predicted among non-blacks MDRD (S/P/Bld) [Vol rate/Area] 104 mL/min/{1.73_m2} >60 [facility] Comment on above: mL/min/1.73m2 CKD-EP I Creatinine Equation (2020) Hematocrit Auto (Bld) [Volum e fraction]Ordered By: Chey Kumar on 04-05-2025 Hematocrit (Bld) [Volume fraction] 33.4 % Low 37-47 [facility] Hemoglobin A1c percentageOrd ered By: Chey Kumar on 04-05-2025 HbA1c (Bld) [Mass fraction] 4.9 % <5.7 [facility] Comment on above: Normal < 5.7 % Predi abetic 5.7 - 6.4 % Diabetic >or= 6.5 % Please note range changes. Hemoglobin measurementOrdere d By: Chey Kumar on 04-05-2025 Hemoglobin (Bld) [Mass/Vol] 11.2 g/dL Low 12.0-15.0 [facility] Immature granulocytes/100 WB C Auto (Bld)Ordered By: Chey Kumra on 04-05-2025 Immature granulocytes/100 WBC (Bld) 0.200 % 0.0-0.9 [facility] Comment on above: IG% - Immature Granu locytes (promyelocytes, myelocytes and metamyelocytes) > 1% indicates that a LEFT SHIFT is Present. Laboratory - Chemistry and C hemistry - challengeOrdered By: Chey Kumar on 04-05-2025 AST [Catalytic activity/Vol] 23 U/L <32 [facility] Comment on above: Hemolysis present, R esults could be affected. MCV (mean corpuscular volume ) determinationOrdered By: Chey Kumar on 04-05-2025 MCV (RBC) [Entitic vol] 92.3 fL 81-99 [facility] Mean corpuscular hemoglobin (MCH) determinationOrdered By: Chey Kumar 04-05-2025 MCH (RBC) [Entitic mass] 30.9 pg 27.0-32.0 [facility] Mean corpuscular hemoglobin concentration (MCHC) determinationOrdered By: Chey Kumar on 04-05-2025 MCHC (RBC) [Mass/Vol] 33.5 g/dL 32-36 [facility] Mean platelet volume determi nationOrdered By: Chey Kumar on 04-05-2025 Platelet mean volume (Bld) [Entitic vol] 11.5 fL 6.2-12.0 [facility] Monocyte percentageOrdered B y: Chey Kumar on 04-05-2025 Monocytes/100 WBC (Bld) 12.5 % High 0-10 [facility] Neutrophil percentageOrdered By: Chey Kumar on 04-05-2025 Neutrophils/100 WBC (Bld) 51.9 % 47-70 [facility] Nucleated red blood cell per centageOrdered By: Chey Kumar on 04-05-2025 Nucleated RBC/100 WBC (Bld) [Ratio] 0 % 0-5 [facility] Platelet countOrdered By: Walt adeyoli Kumar on 04-05-2025 Platelets (Bld) [#/Vol] 229 10*3/uL 150-450 [facility] Potassium measurement (mass/ volume)Ordered By: Chey Kumar on 04-05-2025 Potassium (Unsp spec) [Mass/Vol] 4.3 mmol/L 3.3-5.1 [facility] Comment on above: Hemolysis present, R esults could be affected. RBC Auto (Bld) [#/Vol]Ordere d By: Chey Kumar on 04-05-2025 RBC (Bld) [#/Vol] 3.62 10*6/uL Low 4.2-5.4 [facility] Serum creatinine measurement (mass/volume)Ordered By: Chey Kumar on 04-05-2025 Creatinine [Mass/Vol] 0.29 mg/dL Low 0.70-1.20 [facility] Serum globulin measurementOr dered By: Chey Kumar on 04-05-2025 Globulin (S) [Mass/Vol] 2.4 g/dL 2.2-4.2 [facility] Serum glucose measurement (m ass/volume)Ordered By: Chey Kumar on 04-05-2025 Glucose [Mass/Vol] 101 mg/dL High 70-99 [facility] Serum or plasma alanine grimaldo otransferase (ALT) measurementOrdered By: Chey Kumar on 04-05-2025 ALT [Catalytic activity/Vol] 14 U/L <35 [facility] Serum or plasma albumin ori urement (mass/volume)Ordered By: Chey Kumar on 04-05-2025 Albumin [Mass/Vol] 3.2 g/dL Low 3.4-4.8 [facility] Serum or plasma alkaline nikia sphatase measurementOrdered By: Chey Kumar on 04-05-2025 ALP [Catalytic activity/Vol] 62 U/L 35-104 [facility] Serum or plasma calcium ori urement (mass/volume)Ordered By: Chey Kumar on 04-05-2025 Calcium [Mass/Vol] 9.6 mg/dL 7.6-11.0 [facility] Serum or plasma urea nitroge n measurement (mass/volume)Ordered By: Chey Kumar on 04-05-2025 Urea nitrogen [Mass/Vol] 17 mg/dL 4-19 [facility] Sodium levelOrdered By: Melinda aguilaralvin Stacy on 04-05-2025 Sodium [Moles/Vol] 138 mmol/L 133-145 [facility] Total proteinOrdered By: Gary Kumar on 04-05-2025 Protein [Mass/Vol] 5.6 g/dL Low 5.9-8.4 [facility] White blood cell (WBC) count Ordered By: Chey Kumar on 04-05-2025 WBC (Bld) [#/Vol] 5.4 10*3/uL 4.4-11.0 [facility] Lumbar Spine 2 or 3 Viewson 03-30-2025 Lumbar Spine 2 or 3 Views [facility] [address] [place] [address] [id number] Lumbar Spine 2 or 3 Views MR#: [id number] Acct: [id number] Name: TENA CANNON Rep #: [id number] : 1940 F 84 From: Edgard Briceño MD PCP: Dr. Chey Kumar MD Status: DEP AMB Study: Lumbar Spine 2 or 3 Views Date of Exam: Exam# [id number] Ordering Dr: Tyra Osorio PROCEDURE: LUMBAR SPINE [...] diffuse idiopathic skeletal hyperostosis DISH.. Reading Location: [facility] CC: ISAK Sutton; Dr. Chey Kumar MD Skid Strapper: Signed Normal [facility] Orthopedic Visit Reporton Orthopedic Visit Report [facility] [address] [place] [address] OFFICE VISIT Date of Service: 03/30/25 MR#: [id number] Acct: [id number] Name: TENA CANNON Rep #: [id number] : 1940 Provider: ISAK Sutton Age/Sex: 84/F Location: [facility] [place] Status: Signed Intake Vital Signs 02/18/25 13:04 [...] bisacodyl 10 mg rectal suppository 10 mg FL QDAY PRN 03/30/2503/30 History brimonidine 0.1 % [...] fallen in the past year?: Yes (5//25) [facility] Medical History (Updated 03/30/25 @ 16:19 by [...] brace that was given to her at [facility] after the fall. The main reason she [...] years ago had a kyphoplasty at the [facility]. Ortho Exam General General: Yes no acute [...] No hyperreflexia (more content not included)... Normal [facility] Abd Decub and/or Erect(Darrell blon 03-25-2025 Abd Decub and/or Erect([facility] [address] [place] [address] Abd Decub and/or Erect([facility] MR#: [id number] Acct: [id number] Name: TENA CANNON Rep #: [id number] : 1940 F 84 From: Joshua Cota DO PCP: Dr. Chey Kumar MD Status: PRE ER Study: Abd Decub and/or Erect([facility] Date of Exam: 0 03/25/25 Exam# [id number] Ordering Dr: Vicente Leon MD PROCEDURE: ABD DECUB AND/OR ERECT(PORTABLE 03/25/2025 REASON FOR EXAM: CONSTIPATION TECHNIQUE: ABD DECUB AND/OR ERECT(PORTABLE COMPARISON: December 08, 2024 CT FINDINGS: Bowel gas: Nonobstructing nonspecific bowel-gas pattern. Woli-it-tezolruv fecal load consistent with constipation. Calcifications: No suspicious calcifications. Bones: Degenerative changes of the lumbar spine. Kyphoplasties cement in L3. Other: Cholecystectomy clips in the gallbladder fossa. Pronounced left convexity scoliosis of the thoracolumbar spine RAD/Abd Decub and/or Erect([facility] IMPRESSION: Possible fecal impaction in the rectum [facility] CC: Dr. Vicente Leon MD; Dr. Chey Kumar MD Skid Strapper: Signed Normal [facility] Emergency Department Summary on 03-25-2025 Emergency Department Summary [facility] Medical Records Department [address] [place] [address] Emergency Department Summary 03/25/25 MR#: [id number] Acct: [id number] Name: TENA CANNON Rep #: [id number] : 1940 84 From: Vicente Leon MD PCP: Dr. Chey Kumar MD Status:REG ER Location: ED HPI HPI - GI History of Present Illness Chief Complaint: Constipation Narrative Narrative: 84-year-old female presents from [facility] with constipation for the last week [...] movement but is unable to do so. [facility] Medical History History of fractured vertebra [...] History Record (more content not included)... Normal [facility] 03-22-[address] [facility] Telephone ([facility]AM[facility]) TENA CANNON ([id number]) 1940 F Date Time Provider Department 03/22/25 [...] daughter: Juan Call patient at: on cell [phone] (home) [phone] (cell) Was an appointment scheduled: No Closing statement: Results or non-symptom based questions: Thank you for calling [facility], your call will be returned within the next business day. [facility] Allergies As of Date: 03/22/2025 Noted Allergy [...] times a day. - dextran 70-hypromellose (ARTIFICIAL TEARS,[id number],) 0.1-0.3 % ophthalmic solution Use 1 drop in both eyes two times a day. - lidocaine (ASPERFLEX, LIDOCAINE,) 4 % patch Apply 1 application as directed once daily. Apply to lower back, on for twelve hours, off for twelve hours. - ekhnjboy-uzln-eae7-C-m ang-bosw (OSTEO BI-FLEX TRIPLE STRENGTH) 750 mg-644 [...] TEARS OPHTHALMIC) Use in eyes. - rutin/hesp/bioflav/C/h txjoa225 (BIOFLEX ORAL) Take 1 capsule by mouth twice daily. - CPAP BipaP @ 14/9 cm of water with humidification, removable water dispenser (for cleaning) . Mask (small/ per patient preference) , filters, tubing, humidifier and lifetime supplies. (G47.33, Z99.89) Obstructive sleep apnea on CPAP - cyclopentolate (more content not included)... Normal [facility] Absolute lymphocyte countOrd ered By: Chey Kumar on 03-07-2025 Lymphocytes Auto (Unsp spec) [#/Vol] 1.93 10*3/uL 0.83-4.51 [facility] Absolute neutrophil countOrd ered By: Chey Singletongriseldaalvin on 03-07-2025 Neutrophils (Bld) [#/Vol] 1.9 10*3/uL Low 2.0-7.7 [facility] Anion gap in Serum or Plasma Ordered By: Chey Kumar on 03-07-2025 Anion gap [Moles/Vol] 10 mmol/L 5-15 [facility] Automated lymphocyte count a s percentage of total leukocytesOrdered By: Chey Kumar on 03-07-2025 Lymphocytes/100 WBC Auto (Unsp spec) 40.5 % 19-41 [facility] BUN/creatinine ratioOrdered By: carmenwashingtonyoli Kumar on 03-07-2025 Urea nitrogen/Creatinine [Mass ratio] 47.2 mg/mg High 10-20 [facility] Basophil percentageOrdered B y: Chey Kuamr on 03-07-2025 Basophils/100 WBC (Bld) 1.1 % High 0-1 [facility] Carbon dioxide, total [Moles /volume] in Central venous bloodOrdered By: Chey Kumar on 03-07-2025 CO2 [Moles/Vol] 25.6 mmol/L 21.0-32.0 [facility] Chloride assayOrdered By: Walt Kumar on 03-07-2025 Chloride [Moles/Vol] 102 mmol/L 98-108 [facility] Eosinophil percentageOrdered By: Chey Menge on 03-07-2025 Eosinophils/100 WBC (Bld) 3.6 % 0-5 [facility] Erythrocyte distribution wid th ratioOrdered By: Chey Kumar on 03-07-2025 Erythrocyte distribution width (RBC) [Ratio] 14.1 % 11.6-14.6 [facility] Erythrocyte distribution wid th standard deviationOrdered By: Chey Kumar on 03-07-2025 Erythrocyte distribution width (RBC) [Ratio] 49.0 fl High 35.1-43.9 [facility] Glomerular filtration rate ( GFR) estimation/1.73 sq m using serum, plasma, or whole bOrdered By: Chey Kumar on 03-07-2025 GFR/1.73 sq M.predicted among non-blacks MDRD (S/P/Bld) [Vol rate/Area] 108 mL/min/{1.73_m2} >60 [facility] Comment on above: mL/min/1.73m2 CKD-EP I Creatinine Equation (2020) Hematocrit Auto (Bld) [Volum e fraction]Ordered By: Chey Kumar on 03-07-2025 Hematocrit (Bld) [Volume fraction] 33.3 % Low 37-47 [facility] Hemoglobin measurementOrdere d By: Chey Kumar on 03-07-2025 Hemoglobin (Bld) [Mass/Vol] 10.9 g/dL Low 12.0-15.0 [facility] Immature granulocytes/100 WB C Auto (Bld)Ordered By: Chey Kumar on 03-07-2025 Immature granulocytes/100 WBC (Bld) 0.200 % 0.0-0.9 [facility] Comment on above: IG% - Immature Granu locytes (promyelocytes, myelocytes and metamyelocytes) > 1% indicates that a LEFT SHIFT is Present. MCV (mean corpuscular volume ) determinationOrdered By: Chey Kumar on 03-07-2025 MCV (RBC) [Entitic vol] 93.8 fL 81-99 [facility] Mean corpuscular hemoglobin (MCH) determinationOrdered By: Chey Kumar on 03-07-2025 MCH (RBC) [Entitic mass] 30.7 pg 27.0-32.0 [facility] Mean corpuscular hemoglobin concentration (MCHC) determinationOrdered By: Chey Kumar 03-07-2025 MCHC (RBC) [Mass/Vol] 32.7 g/dL 32-36 [facility] Mean platelet volume determi nationOrdered By: Chey Kumar 03-07-2025 Platelet mean volume (Bld) [Entitic vol] 11.3 fL 6.2-12.0 [facility] Monocyte percentageOrdered B y: Waltcarmenshayoli Singletongriseldaalvin on 03-07-2025 Monocytes/100 WBC (Bld) 14.5 % High 0-10 [facility] Neutrophil percentageOrdered By: Melindashayoli Singletongriseldaalvin on 03-07-2025 Neutrophils/100 WBC (Bld) 40.1 % Low 47-70 [facility] Nucleated red blood cell per centageOrdered By: Melindashayoli Singletongriseldaalvin on 03-07-2025 Nucleated RBC/100 WBC (Bld) [Ratio] 0 % 0-5 [facility] Platelet countOrdered By: Walt carmenbrittany Kumar on 03-07-2025 Platelets (Bld) [#/Vol] 238 10*3/uL 150-450 [facility] Potassium measurement (mass/ volume)Ordered By: Chey Kumar on 03-07-2025 Potassium (Unsp spec) [Mass/Vol] 3.8 mmol/L 3.3-5.1 [facility] RBC Auto (Bld) [#/Vol]Ordere d By: Chey Kumar on 03-07-2025 RBC (Bld) [#/Vol] 3.55 10*6/uL Low 4.2-5.4 [facility] Serum creatinine measurement (mass/volume)Ordered By: Chey Kumar on 03-07-2025 Creatinine [Mass/Vol] 0.25 mg/dL Low 0.70-1.20 [facility] Serum glucose measurement (m ass/volume)Ordered By: Chey Kumar on 03-07-2025 Glucose [Mass/Vol] 95 mg/dL 70-99 [facility] Serum or plasma calcium ori urement (mass/volume)Ordered By: Chey Kumar on 03-07-2025 Calcium [Mass/Vol] 9.8 mg/dL 7.6-11.0 [facility] Serum or plasma urea nitroge n measurement (mass/volume)Ordered By: Chey Kumar on 03-07-2025 Urea nitrogen [Mass/Vol] 12 mg/dL 4-19 [facility] Sodium levelOrdered By: Melinda Kumar on 03-07-2025 Sodium [Moles/Vol] 138 mmol/L 133-145 [facility] White blood cell (WBC) count Ordered By: Waltcarmenbrittany Manigriseldaalvin on 03-07-2025 WBC (Bld) [#/Vol] 4.8 10*3/uL 4.4-11.0 [facility] Absolute lymphocyte countOrd ered By: Melindashayoli Singletongriseldaalvin on 02-28-2025 Lymphocytes Auto (Unsp spec) [#/Vol] 1.77 10*3/uL 0.83-4.51 [facility] Absolute neutrophil countOrd ered By: Melindashayoli Singletongriseldaalvin on 02-28-2025 Neutrophils (Bld) [#/Vol] 2.6 10*3/uL 2.0-7.7 [facility] Anion gap in Serum or Plasma Ordered By: Chey Singletongriseldaalvin on 02-28-2025 Anion gap [Moles/Vol] 10 mmol/L 5-15 [facility] Automated lymphocyte count a s percentage of total leukocytesOrdered By: Melindashayoli Singeltongriseldaalvin on 02-28-2025 Lymphocytes/100 WBC Auto (Unsp spec) 34.0 % 19-41 [facility] BUN/creatinine ratioOrdered By: Chey Singletongriseldaalvin on 02-28-2025 Urea nitrogen/Creatinine [Mass ratio] 50.2 mg/mg High 10-20 [facility] Basophil percentageOrdered B y: Melindashayoli Singletongriseldaalvin on 02-28-2025 Basophils/100 WBC (Bld) 1.2 % High 0-1 [facility] Carbon dioxide, total [Moles /volume] in Central venous bloodOrdered By: Chey Kumar on 02-28-2025 CO2 [Moles/Vol] 25.0 mmol/L 21.0-32.0 [facility] Chloride assayOrdered By: Walt Kumar on 02-28-2025 Chloride [Moles/Vol] 101 mmol/L 98-108 [facility] Eosinophil percentageOrdered By: Chey Singletongriseldaalvin on 02-28-2025 Eosinophils/100 WBC (Bld) 2.3 % 0-5 [facility] Erythrocyte distribution wid th ratioOrdered By: Chey Kumar on 02-28-2025 Erythrocyte distribution width (RBC) [Ratio] 14.2 % 11.6-14.6 [facility] Erythrocyte distribution wid th standard deviationOrdered By: Chey Kumar on 02-28-2025 Erythrocyte distribution width (RBC) [Ratio] 48.8 fl High 35.1-43.9 [facility] Glomerular filtration rate ( GFR) estimation/1.73 sq m using serum, plasma, or whole bOrdered By: Chey Kumar on 02-28-2025 GFR/1.73 sq M.predicted among non-blacks MDRD (S/P/Bld) [Vol rate/Area] 110 mL/min/{1.73_m2} >60 [facility] [facility] Comment on above: mL/min/1.73m2 CKD-EP I Creatinine Equation (2020) Hematocrit Auto (Bld) [Volum e fraction]Ordered By: Melindawashingtonyoli Kumar on 02-28-2025 Hematocrit (Bld) [Volume fraction] 33.2 % Low 37-47 [facility] Hemoglobin measurementOrdere d By: garfield Kumar on 02-28-2025 Hemoglobin (Bld) [Mass/Vol] 11.0 g/dL Low 12.0-15.0 [facility] Immature granulocytes/100 WB C Auto (Bld)Ordered By: garfield Kumar 02-28-2025 Immature granulocytes/100 WBC (Bld) 0.200 % 0.0-0.9 [facility] Comment on above: IG% - Immature Granu locytes (promyelocytes, myelocytes and metamyelocytes) > 1% indicates that a LEFT SHIFT is Present. Iron measurement (mass/mass) Ordered By: Chey Kumar 02-28-2025 Iron (Unsp spec) [Mass/Mass] 51 ug/dL 50-170 [facility] MCV (mean corpuscular volume ) determinationOrdered By: Chey Kumar 02-28-2025 MCV (RBC) [Entitic vol] 93.3 fL 81-99 [facility] Mean corpuscular hemoglobin (MCH) determinationOrdered By: garfield Kumar 5 MCH (RBC) [Entitic mass] 30.9 pg 27.0-32.0 [facility] Mean corpuscular hemoglobin concentration (MCHC) determinationOrdered By: Chey Kumar on 02-28-2025 MCHC (RBC) [Mass/Vol] 33.1 g/dL 32-36 [facility] Mean platelet volume determi nationOrdered By: Chey Kumar on 02-28-2025 Platelet mean volume (Bld) [Entitic vol] 11.0 fL 6.2-12.0 [facility] Monocyte percentageOrdered B y: Chey Kumar on 02-28-2025 Monocytes/100 WBC (Bld) 12.9 % High 0-10 [facility] Neutrophil percentageOrdered By: Chey Kumar on 02-28-2025 Neutrophils/100 WBC (Bld) 49.4 % 47-70 [facility] No Panel InformationOrdered By: Chey Mengalvin on 02-28-2025 Unsaturated Iron Binding Capacity 120 ug/dL Low 228-428 [facility] Nucleated red blood cell per centageOrdered By: Chey Kumar on 02-28-2025 Nucleated RBC/100 WBC (Bld) [Ratio] 0 % 0-5 [facility] Platelet countOrdered By: Walt Kumar on 02-28-2025 Platelets (Bld) [#/Vol] 228 10*3/uL 150-450 [facility] Potassium measurement (mass/ volume)Ordered By: Waltcarmenshayoli Singletongriseldaalvin on 02-28-2025 Potassium (Unsp spec) [Mass/Vol] 4.0 mmol/L 3.3-5.1 [facility] RBC Auto (Bld) [#/Vol]Ordere d By: Chey Manigriseldaalvin on 02-28-2025 RBC (Bld) [#/Vol] 3.56 10*6/uL Low 4.2-5.4 [facility] Serum creatinine measurement (mass/volume)Ordered By: Waltcarmenshayoli Singletongriseldaalvin on 02-28-2025 Creatinine [Mass/Vol] 0.24 mg/dL Low 0.70-1.20 [facility] Serum glucose measurement (m ass/volume)Ordered By: Chey Singletongriseldaalvin on 02-28-2025 Glucose [Mass/Vol] 108 mg/dL High 70-99 [facility] Serum or plasma calcium ori urement (mass/volume)Ordered By: Waltcarmenshayoli Singletongriseldaalvin on 02-28-2025 Calcium [Mass/Vol] 9.5 mg/dL 7.6-11.0 [facility] Serum or plasma ferritin skylar surement (mass/volume)Ordered By: Chey Kumar on 02-28-2025 Ferritin [Mass/Vol] 1486 ng/mL High 22-378 [facility] Serum or plasma iron saturat ion measurement (mass fraction)Ordered By: Chey Kumar on 02-28-2025 Iron saturation [Mass fraction] 29.8 % 13-59 [facility] Comment on above: Previous reported re sult: 30.0 %Edited by: KAVYA on 02/28/25:0818 AMENDED REPORT 02/28/25 0818 IRON SATURATION previously reported as: 30.0 % Serum or plasma urea nitroge n measurement (mass/volume)Ordered By: Chey Kumar on 02-28-2025 Urea nitrogen [Mass/Vol] 12 mg/dL 4-19 [facility] Sodium levelOrdered By: Melinda brittany Manigriseldaalvin on 02-28-2025 Sodium [Moles/Vol] 136 mmol/L 133-145 [facility] White blood cell (WBC) count Ordered By: Chey Kumar on 02-28-2025 WBC (Bld) [#/Vol] 5.2 10*3/uL 4.4-11.0 [facility] Absolute lymphocyte countOrd ered By: Chey Kumar on 02-21-2025 Lymphocytes Auto (Unsp spec) [#/Vol] 1.88 10*3/uL 0.83-4.51 [facility] Absolute neutrophil countOrd ered By: Chey Kumar on 02-21-2025 Neutrophils (Bld) [#/Vol] 1.7 10*3/uL Low 2.0-7.7 [facility] Anion gap in Serum or Plasma Ordered By: Chey Kumar on 02-21-2025 Anion gap [Moles/Vol] 10 mmol/L 5-15 [facility] Automated lymphocyte count a s percentage of total leukocytesOrdered By: Chey Kumar on 02-21-2025 Lymphocytes/100 WBC Auto (Unsp spec) 43.4 % High 19-41 [facility] BUN/creatinine ratioOrdered By: Chey Kumar on 02-21-2025 Urea nitrogen/Creatinine [Mass ratio] 33.9 mg/mg High 10-20 [facility] Basophil percentageOrdered B y: Chey Kumar on 02-21-2025 Basophils/100 WBC (Bld) 1.4 % High 0-1 [facility] Carbon dioxide, total [Moles /volume] in Central venous bloodOrdered By: carmenwashingtonyoli Kumar on 02-21-2025 CO2 [Moles/Vol] 24.2 mmol/L 21.0-32.0 [facility] Chloride assayOrdered By: Walt Kumar on 02-21-2025 Chloride [Moles/Vol] 100 mmol/L 98-108 [facility] Eosinophil percentageOrdered By: garfield Kumar on 02-21-2025 Eosinophils/100 WBC (Bld) 1.8 % 0-5 [facility] Erythrocyte distribution wid th ratioOrdered By: carmenwashingtonyoli Kumar on 02-21-2025 Erythrocyte distribution width (RBC) [Ratio] 14.3 % 11.6-14.6 [facility] Erythrocyte distribution wid th standard deviationOrdered By: Chey Kumar on 02-21-2025 Erythrocyte distribution width (RBC) [Ratio] 47.4 fl High 35.1-43.9 [facility] Glomerular filtration rate ( GFR) estimation/1.73 sq m using serum, plasma, or whole bOrdered By: Chey Kumar on 02-21-2025 GFR/1.73 sq M.predicted among non-blacks MDRD (S/P/Bld) [Vol rate/Area] 102 mL/min/{1.73_m2} >60 [facility] Comment on above: mL/min/1.73m2 CKD-EP I Creatinine Equation (2020) Hematocrit Auto (Bld) [Volum e fraction]Ordered By: Chey Kumar on 02-21-2025 Hematocrit (Bld) [Volume fraction] 31.2 % Low 37-47 [facility] Hemoglobin measurementOrdere d By: Chey Kumar on 02-21-2025 Hemoglobin (Bld) [Mass/Vol] 10.7 g/dL Low 12.0-15.0 [facility] Immature granulocytes/100 WB C Auto (Bld)Ordered By: Chey Kumar on 02-21-2025 Immature granulocytes/100 WBC (Bld) 0.200 % 0.0-0.9 [facility] Comment on above: IG% - Immature Granu locytes (promyelocytes, myelocytes and metamyelocytes) > 1% indicates that a LEFT SHIFT is Present. MCV (mean corpuscular volume ) determinationOrdered By: Chey Kumar on 02-21-2025 MCV (RBC) [Entitic vol] 91.0 fL 81-99 [facility] Mean corpuscular hemoglobin (MCH) determinationOrdered By: garfield Kumar on 02-21-2025 MCH (RBC) [Entitic mass] 31.2 pg 27.0-32.0 [facility] Mean corpuscular hemoglobin concentration (MCHC) determinationOrdered By: Chey Kumar on 02-21-2025 MCHC (RBC) [Mass/Vol] 34.3 g/dL 32-36 [facility] Mean platelet volume determi nationOrdered By: Chey Kumar on 02-21-2025 Platelet mean volume (Bld) [Entitic vol] 11.2 fL 6.2-12.0 [facility] Monocyte percentageOrdered B y: Chey Kumar on 02-21-2025 Monocytes/100 WBC (Bld) 14.8 % High 0-10 [facility] Neutrophil percentageOrdered By: Chey Kumar on 02-21-2025 Neutrophils/100 WBC (Bld) 38.4 % Low 47-70 [facility] Nucleated red blood cell per centageOrdered By: Chey Kumar on 02-21-2025 Nucleated RBC/100 WBC (Bld) [Ratio] 0 % 0-5 [facility] Platelet countOrdered By: Walt carmenbrittany Kumar on 02-21-2025 Platelets (Bld) [#/Vol] 280 10*3/uL 150-450 [facility] Potassium measurement (mass/ volume)Ordered By: Chey Kumar on 02-21-2025 Potassium (Unsp spec) [Mass/Vol] 4.3 mmol/L 3.3-5.1 [facility] RBC Auto (Bld) [#/Vol]Ordere d By: Chey Kumar on 02-21-2025 RBC (Bld) [#/Vol] 3.43 10*6/uL Low 4.2-5.4 [facility] Serum creatinine measurement (mass/volume)Ordered By: Chey Kumar on 02-21-2025 Creatinine [Mass/Vol] 0.31 mg/dL Low 0.70-1.20 [facility] Serum glucose measurement (m ass/volume)Ordered By: Chey Kumar on 02-21-2025 Glucose [Mass/Vol] 88 mg/dL 70-99 [facility] Serum or plasma calcium ori urement (mass/volume)Ordered By: Chey Kumar on 02-21-2025 Calcium [Mass/Vol] 10.0 mg/dL 7.6-11.0 [facility] Serum or plasma urea nitroge n measurement (mass/volume)Ordered By: Chey Kumar on 02-21-2025 Urea nitrogen [Mass/Vol] 11 mg/dL 4-19 [facility] Sodium levelOrdered By: Melinda perezrhona Stacy on 02-21-2025 Sodium [Moles/Vol] 134 mmol/L 133-145 [facility] White blood cell (WBC) count Ordered By: Chey Kumar on 02-21-2025 WBC (Bld) [#/Vol] 4.3 10*3/uL Low 4.4-11.0 [facility] Absolute lymphocyte countOrd ered By: Chey Kumar on 02-14-2025 Lymphocytes Auto (Unsp spec) [#/Vol] 1.92 10*3/uL 0.83-4.51 [facility] Absolute neutrophil countOrd ered By: Waltcarmenbrittany Manigriseldaalvin on 02-14-2025 Neutrophils (Bld) [#/Vol] 2.1 10*3/uL 2.0-7.7 [facility] Anion gap in Serum or Plasma Ordered By: Chey Kumar on 02-14-2025 Anion gap [Moles/Vol] 10 mmol/L 5-15 [facility] Automated lymphocyte count a s percentage of total leukocytesOrdered By: Chey Kumar on 02-14-2025 Lymphocytes/100 WBC Auto (Unsp spec) 39.8 % 19-41 [facility] BUN/creatinine ratioOrdered By: Chye Singletongriseldaalvin on 02-14-2025 Urea nitrogen/Creatinine [Mass ratio] 44.8 mg/mg High 10-20 [facility] Basophil percentageOrdered B y: Chey Singletongriseldaalvin on 02-14-2025 Basophils/100 WBC (Bld) 0.8 % 0-1 [facility] Carbon dioxide, total [Moles /volume] in Central venous bloodOrdered By: Chey Kumar on 02-14-2025 CO2 [Moles/Vol] 26.0 mmol/L 21.0-32.0 [facility] Chloride assayOrdered By: Walt Kumar on 02-14-2025 Chloride [Moles/Vol] 102 mmol/L 98-108 [facility] Eosinophil percentageOrdered By: Chey Singletongriseldae on 02-14-2025 Eosinophils/100 WBC (Bld) 2.5 % 0-5 [facility] Erythrocyte distribution wid th ratioOrdered By: Chey Singletongriseldae on 02-14-2025 Erythrocyte distribution width (RBC) [Ratio] 14.1 % 11.6-14.6 [facility] Erythrocyte distribution wid th standard deviationOrdered By: garfield Menge on 02-14-2025 Erythrocyte distribution width (RBC) [Ratio] 48.4 fl High 35.1-43.9 [facility] Glomerular filtration rate ( GFR) estimation/1.73 sq m using serum, plasma, or whole bOrdered By: Chey Kumar on 02-14-2025 GFR/1.73 sq M.predicted among non-blacks MDRD (S/P/Bld) [Vol rate/Area] 110 mL/min/{1.73_m2} >60 [facility] Comment on above: mL/min/1.73m2 CKD-EP I Creatinine Equation (2020) Hematocrit Auto (Bld) [Volum e fraction]Ordered By: Chey Kumar on 02-14-2025 Hematocrit (Bld) [Volume fraction] 31.6 % Low 37-47 [facility] Hemoglobin measurementOrdere d By: Chey Kumar on 02-14-2025 Hemoglobin (Bld) [Mass/Vol] 10.4 g/dL Low 12.0-15.0 [facility] Immature granulocytes/100 WB C Auto (Bld)Ordered By: Chey Kumar on 02-14-2025 Immature granulocytes/100 WBC (Bld) 0.200 % 0.0-0.9 [facility] Comment on above: IG% - Immature Granu locytes (promyelocytes, myelocytes and metamyelocytes) > 1% indicates that a LEFT SHIFT is Present. MCV (mean corpuscular volume ) determinationOrdered By: Chey Kumar on 02-14-2025 MCV (RBC) [Entitic vol] 93.8 fL 81-99 [facility] Mean corpuscular hemoglobin (MCH) determinationOrdered By: Chey Kumar on 02-14-2025 MCH (RBC) [Entitic mass] 30.9 pg 27.0-32.0 [facility] Mean corpuscular hemoglobin concentration (MCHC) determinationOrdered By: Chey Kumar on 02-14-2025 MCHC (RBC) [Mass/Vol] 32.9 g/dL 32-36 [facility] Mean platelet volume determi nationOrdered By: Chey Kumar on 02-14-2025 Platelet mean volume (Bld) [Entitic vol] 10.4 fL 6.2-12.0 [facility] Monocyte percentageOrdered B y: Chey Kumar on 02-14-2025 Monocytes/100 WBC (Bld) 13.3 % High 0-10 [facility] Neutrophil percentageOrdered By: Chey Maniaubrey on 02-14-2025 Neutrophils/100 WBC (Bld) 43.4 % Low 47-70 [facility] Nucleated red blood cell per centageOrdered By: Waltcarmenbrittany Manigriseldaalvin on 02-14-2025 Nucleated RBC/100 WBC (Bld) [Ratio] 0 % 0-5 [facility] Platelet countOrdered By: Walt garfield Manigriseldaalvin on 02-14-2025 Platelets (Bld) [#/Vol] 280 10*3/uL 150-450 [facility] Potassium measurement (mass/ volume)Ordered By: Waltgarfield Singletongriseldaalvin 02-14-2025 Potassium (Unsp spec) [Mass/Vol] 3.8 mmol/L 3.3-5.1 [facility] RBC Auto (Bld) [#/Vol]Ordere d By: Chey Maniaubrey 02-14-2025 RBC (Bld) [#/Vol] 3.37 10*6/uL Low 4.2-5.4 [facility] Serum creatinine measurement (mass/volume)Ordered By: Waltcarmenbrittany Manigriseldaalvin 02-14-2025 Creatinine [Mass/Vol] 0.23 mg/dL Low 0.70-1.20 [facility] Serum glucose measurement (m ass/volume)Ordered By: Chey Kumar 02-14-2025 Glucose [Mass/Vol] 92 mg/dL 70-99 [facility] Serum or plasma calcium ori urement (mass/volume)Ordered By: Chey Singletongriseldaalvin 02-14-2025 Calcium [Mass/Vol] 9.7 mg/dL 7.6-11.0 [facility] Serum or plasma urea nitroge n measurement (mass/volume)Ordered By: Waltgarfield Singletongriseldaalvin on 02-14-2025 Urea nitrogen [Mass/Vol] 10 mg/dL 4-19 [facility] Sodium levelOrdered By: Melinda brittany Stacy on 02-14-2025 Sodium [Moles/Vol] 138 mmol/L 133-145 [facility] White blood cell (WBC) count Ordered By: Chey Kumar on 02-14-2025 WBC (Bld) [#/Vol] 4.8 10*3/uL 4.4-11.0 [facility] CNPNon 02-10-2025 CNPN Telephone (UROSafiaWS) TENA CANNON ([id number]) 1940 F Date Time Provider Department 02/10/25 [...] LPN 02/10/2025 9:37 AM Signed Order [facility]: sulfamethoxazole-trime thoprim (BACTRIM DS) 800-160 mg per tablet [[id number]] Original entry by Marilyn Santos PA-C 02/09/2025 [...] AM Signed Faxed order and results to [place]. LOBO Armas Kimberly, LPN 02/14/2025 9:52 AM Signed Called [facility], patient on [place]. Spoke with LOBO Soto. Reports patient had [...] times a day. - dextran 70-hypromellose (ARTIFICIAL TEARS,[id number],) 0.1-0.3 % ophthalmic solution Use 1 drop in both eyes two times a day. - lidocaine (ASPERFLEX, LIDOCAINE,) 4 % patch Apply 1 application as directed once daily. Apply to lower back, on for twelve hours, off for twelve hours. - gbvhgfql-ulcg-lfi4-C-m ang-bosw (OSTEO BI-FLEX TRIPLE STRENGTH) 750 mg-644 [...] at bedtim (more content not included)... Normal [facility] Potassium measurement (mass/ volume)Ordered By: Chey Kumar on 02-09-2025 Potassium (Unsp spec) [Mass/Vol] 4.1 mmol/L 3.3-5.1 [facility] CNPNon 02-08-2025 ANTONYN Telephone (UROLWS) TENA CANNON ([id number]) 1940 F Date Time Provider Department 02/08/25 NARCISO SHERMAN During your visit today, we recorded the following information about you: Yandy Cruz LPN 02/08/2025 8:37 AM Signed Called [facility] to obtain fax number. Spoke with LOBO Burk on [facility] [place] (Transition of Care). 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 - lidocaine (ASPERFLEX, LIDOCAINE,) 4 % patch Apply 1 application as directed once daily. Apply to lower back, on for twelve hours, off for twelve hours. - byawuait-koyh-yqs4-C-m ang-bosw (OSTEO BI-FLEX TRIPLE STRENGTH) 750 mg-644 [...] TEARS OPHTHALMIC) Use in eyes. - rutin/hesp/bioflav/C/h [id number] (BIOFLEX ORAL) Take 1 capsule by mouth [...] 02/08/2025 Not (more content not included)... Normal [facility] Absolute lymphocyte countOrd ered By: Chey Kumar on 02-07-2025 Lymphocytes Auto (Unsp spec) [#/Vol] 1.60 10*3/uL 0.83-4.51 [facility] Absolute neutrophil countOrd ered By: Chey Kumar on 02-07-2025 Neutrophils (Bld) [#/Vol] 1.7 10*3/uL Low 2.0-7.7 [facility] Anion gap in Serum or Plasma Ordered By: Melindashayoli Kumar on 02-07-2025 Anion gap [Moles/Vol] 11 mmol/L 5-15 [facility] Automated lymphocyte count a s percentage of total leukocytesOrdered By: Melindawashingtonyoli Singletongriseldaalvin on 02-07-2025 Lymphocytes/100 WBC Auto (Unsp spec) 40.6 % - [facility] BUN/creatinine ratioOrdered By: [facility] Atlantayoli Singletongriseldaalvin on 02-07-2025 Urea nitrogen/Creatinine [Mass ratio] 46.6 mg/mg High 10-20 [facility] Bacteria Ur Culton Bacteria identified Cx [...] , Intermediate >32 , Resistant >64 Abnormal [facility] Comment on above: Performed By: #### 6 30-4 ####[facility] LABCLIA [id number] [place] [address] [place] Basophil percentageOrdered B y: Chey Kumar on 02-07-2025 Basophils/100 WBC (Bld) 0.8 % 0-1 [facility] CNOVon 02-07-2025 CNOV Office Visit (UROLWS ) TENA CANNON ([id number]) 1940 F Date Time Provider Department 02/07/25 11:00 AM NARCISO SHERMAN UROELISE During your visit today, we recorded the following information about you: Temperature Pulse Respiration Blood pressure 97.1 degrees 102/minute 14/minute 110/72 Narciso Sherman PA-C 02/07/2025 11:35 AM Signed [facility] NEW PATIENT CLINIC NOTE (F) Note was generated by [employer] and edited as appropriate SERVICE DATE: [...] 0.96 mg/dL Final MEDICATIONS: dextran 70-hypromellose (ARTIFICIAL TEARS,[id number],) 0.1-0.3 % ophthalmic solution Use 1 drop in both eyes two times a day. lidocaine (ASPERFLEX, LIDOCAINE,) 4 % patch Apply 1 application as directed once daily. Apply to lower back, on for twelve hours, off for twelve hours. npxnqecg-cirv-wbr0-C-m ang-bosw (OSTEO BI-FLEX TRIPLE STRENGTH) 750 mg-644 [...] MEAL b (more content not included)... Normal [facility] Carbon dioxide, total [Moles /volume] in Central venous bloodOrdered By: Chey Kumar on 02-07-2025 CO2 [Moles/Vol] 26.7 mmol/L 21.0-32.0 [facility] Chloride assayOrdered By: Walt Kumar on 02-07-2025 Chloride [Moles/Vol] 101 mmol/L 98-108 [facility] Eosinophil percentageOrdered By: Chey Kumar on 02-07-2025 Eosinophils/100 WBC (Bld) 3.0 % 0-5 [facility] Erythrocyte distribution wid th ratioOrdered By: garfield Kumar on 02-07-2025 Erythrocyte distribution width (RBC) [Ratio] 14.1 % 11.6-14.6 [facility] Erythrocyte distribution wid th standard deviationOrdered By: Chey Kumar on 02-07-2025 Erythrocyte distribution width (RBC) [Ratio] 47.3 fl High 35.1-43.9 [facility] Glomerular filtration rate ( GFR) estimation/1.73 sq m using serum, plasma, or whole bOrdered By: Chey Kumar on 02-07-2025 GFR/1.73 sq M.predicted among non-blacks MDRD (S/P/Bld) [Vol rate/Area] 111 mL/min/{1.73_m2} >60 [facility] Comment on above: mL/min/1.73m2 CKD-EP I Creatinine Equation (2020) Hematocrit Auto (Bld) [Volum e fraction]Ordered By: Chey Kumar on 02-07-2025 Hematocrit (Bld) [Volume fraction] 30.8 % Low 37-47 [facility] Hemoglobin measurementOrdere d By: Chey Kumar on 02-07-2025 Hemoglobin (Bld) [Mass/Vol] 10.4 g/dL Low 12.0-15.0 [facility] Immature granulocytes/100 WB C Auto (Bld)Ordered By: Chey Kumar 02-07-2025 Immature granulocytes/100 WBC (Bld) 0.300 % 0.0-0.9 [facility] Comment on above: IG% - Immature Granu locytes (promyelocytes, myelocytes and metamyelocytes) > 1% indicates that a LEFT SHIFT is Present. MCV (mean corpuscular volume ) determinationOrdered By: Chey Kumar on 02-07-2025 MCV (RBC) [Entitic vol] 91.9 fL 81-99 [facility] Mean corpuscular hemoglobin (MCH) determinationOrdered By: Chey Kumar on 02-07-2025 MCH (RBC) [Entitic mass] 31.0 pg 27.0-32.0 [facility] Mean corpuscular hemoglobin concentration (MCHC) determinationOrdered By: Chey Kumar on 02-07-2025 MCHC (RBC) [Mass/Vol] 33.8 g/dL 32-36 [facility] Mean platelet volume determi nationOrdered By: Chey Kumar on 02-07-2025 Platelet mean volume (Bld) [Entitic vol] 10.4 fL 6.2-12.0 [facility] Monocyte percentageOrdered B y: Chey Kumar on 02-07-2025 Monocytes/100 WBC (Bld) 13.2 % High 0-10 [facility] Neutrophil percentageOrdered By: Chey Kumar on 02-07-2025 Neutrophils/100 WBC (Bld) 42.1 % Low 47-70 [facility] Nucleated red blood cell per centageOrdered By: Chey Kumar on 02-07-2025 Nucleated RBC/100 WBC (Bld) [Ratio] 0 % 0-5 [facility] Platelet countOrdered By: Walt Kumar on 02-07-2025 Platelets (Bld) [#/Vol] 289 10*3/uL 150-450 [facility] Potassium measurement (mass/ volume)Ordered By: Chey Kumar on 02-07-2025 Potassium (Unsp spec) [Mass/Vol] 3.1 mmol/L Low 3.3-5.1 [facility] RBC Auto (Bld) [#/Vol]Ordere d By: Filibertoyoli Singletongriseldaalvin on 02-07-2025 RBC (Bld) [#/Vol] 3.35 10*6/uL Low 4.2-5.4 [facility] Serum creatinine measurement (mass/volume)Ordered By: Chey Kumar on 02-07-2025 Creatinine [Mass/Vol] 0.22 mg/dL Low 0.70-1.20 [facility] Serum glucose measurement (m ass/volume)Ordered By: Chey Kumar on 02-07-2025 Glucose [Mass/Vol] 92 mg/dL 70-99 [facility] Serum or plasma calcium ori urement (mass/volume)Ordered By: Chey Kumar on 02-07-2025 Calcium [Mass/Vol] 9.5 mg/dL 7.6-11.0 [facility] Serum or plasma urea nitroge n measurement (mass/volume)Ordered By: Chey Kumar on 02-07-2025 Urea nitrogen [Mass/Vol] 10 mg/dL 4-19 [facility] Sodium levelOrdered By: Melinda perezrhona Stacy on 02-07-2025 Sodium [Moles/Vol] 139 mmol/L 133-145 [facility] UA DIP, URINE (POC)on 2024 BILIRUBIN UA (POCT) Small Abnormal Negative [facility] CLARITY UA (POCT) Cloudy [facility] COLOR UA (POCT) Dark yellow [facility] GLUCOSE UA (POCT) Negative Negative mg/dL [facility] Hemoglobin Ql (U) Small Abnormal [facility] Interpretation and review of laboratory results Abnormal [facility] KETONE UA (POCT) 40 mg/dL Abnormal Negative [facility] LEUKOCYTES UA (POCT) Large Abnormal Negative [facility] NITRITE UA (POCT) Negative Negative [facility] PH UA (POCT) 5.5 4.5 - 8.0 [facility] Protein Ql (U) 30 mg/dL Abnormal Negative [facility] SPECIFIC GRAVITY UA (POCT) 1.025 1.005 - 1.030 [facility] UROBILINOGEN UA (POCT) 0.2 Radha l E.U./dL [facility] Location:[facility], [address], [place], [address] [facility] POINT OF CARE [facility] White blood cell (WBC) count Ordered By: Chey Kumar on 02-07-2025 WBC (Bld) [#/Vol] 3.9 10*3/uL Low 4.4-11.0 [facility] Absolute lymphocyte countOrd ered By: Chey Kumar on 01-31-2025 Lymphocytes Auto (Unsp spec) [#/Vol] 1.76 10*3/uL 0.83-4.51 [facility] Absolute neutrophil countOrd ered By: Chey Kumar on 01-31-2025 Neutrophils (Bld) [#/Vol] 2.1 10*3/uL 2.0-7.7 [facility] Anion gap in Serum or Plasma Ordered By: Chey Kumar on 01-31-2025 Anion gap [Moles/Vol] 9 mmol/L 5-15 [facility] Automated lymphocyte count a s percentage of total leukocytesOrdered By: Chey Kumar on 01-31-2025 Lymphocytes/100 WBC Auto (Unsp spec) 39.6 % 19-41 [facility] BUN/creatinine ratioOrdered By: Chey Kumar on 01-31-2025 Urea nitrogen/Creatinine [Mass ratio] 69.3 mg/mg High 10-20 [facility] Basophil percentageOrdered B y: Chey Kumar on 01-31-2025 Basophils/100 WBC (Bld) 0.4 % 0-1 [facility] Carbon dioxide, total [Moles /volume] in Central venous bloodOrdered By: Chey Kumar on 01-31-2025 CO2 [Moles/Vol] 26.9 mmol/L 21.0-32.0 [facility] Chloride assayOrdered By: Walt Kumar on 01-31-2025 Chloride [Moles/Vol] 101 mmol/L 98-108 [facility] Eosinophil percentageOrdered By: Chey Kumar on 01-31-2025 Eosinophils/100 WBC (Bld) 1.8 % 0-5 [facility] Erythrocyte distribution wid th ratioOrdered By: Chey Kumar on 01-31-2025 Erythrocyte distribution width (RBC) [Ratio] 14.3 % 11.6-14.6 [facility] Erythrocyte distribution wid th standard deviationOrdered By: Chey Kumar on 01-31-2025 Erythrocyte distribution width (RBC) [Ratio] 48.9 fl High 35.1-43.9 [facility] Glomerular filtration rate ( GFR) estimation/1.73 sq m using serum, plasma, or whole bOrdered By: Melindawashingtonyoli Kumar on 01-31-2025 GFR/1.73 sq M.predicted among non-blacks MDRD (S/P/Bld) [Vol rate/Area] 110 mL/min/{1.73_m2} >60 [facility] Comment on above: mL/min/1.73m2 CKD-EP I Creatinine Equation (2020) Hematocrit Auto (Bld) [Volum e fraction]Ordered By: Chey Kumar on 01-31-2025 Hematocrit (Bld) [Volume fraction] 32.6 % Low 37-47 [facility] Hemoglobin measurementOrdere d By: Melindawashingtonyoli Kumar on 01-31-2025 Hemoglobin (Bld) [Mass/Vol] 10.8 g/dL Low 12.0-15.0 [facility] Immature granulocytes/100 WB C Auto (Bld)Ordered By: Chey Kumar 01-31-2025 Immature granulocytes/100 WBC (Bld) 0.200 % 0.0-0.9 [facility] Comment on above: IG% - Immature Granu locytes (promyelocytes, myelocytes and metamyelocytes) > 1% indicates that a LEFT SHIFT is Present. MCV (mean corpuscular volume ) determinationOrdered By: Chey Kumar on 01-31-2025 MCV (RBC) [Entitic vol] 93.9 fL 81-99 [facility] Mean corpuscular hemoglobin (MCH) determinationOrdered By: carmenwashingtonyoli Kumar 01-31-2025 MCH (RBC) [Entitic mass] 31.1 pg 27.0-32.0 [facility] Mean corpuscular hemoglobin concentration (MCHC) determinationOrdered By: Chey Kumar on 01-31-2025 MCHC (RBC) [Mass/Vol] 33.1 g/dL 32-36 [facility] Mean platelet volume determi nationOrdered By: Chey Kumar on 01-31-2025 Platelet mean volume (Bld) [Entitic vol] 11.2 fL 6.2-12.0 [facility] Monocyte percentageOrdered B y: Chey Kumar on 01-31-2025 Monocytes/100 WBC (Bld) 10.6 % High 0-10 [facility] Neutrophil percentageOrdered By: Chey Kumar on 01-31-2025 Neutrophils/100 WBC (Bld) 47.4 % 47-70 [facility] Nucleated red blood cell per centageOrdered By: Chey Kumar on 01-31-2025 Nucleated RBC/100 WBC (Bld) [Ratio] 0 % 0-5 [facility] Platelet countOrdered By: Walt Kumar on 01-31-2025 Platelets (Bld) [#/Vol] 167 10*3/uL 150-450 [facility] Potassium measurement (mass/ volume)Ordered By: Chey Kumar on 01-31-2025 Potassium (Unsp spec) [Mass/Vol] 3.8 mmol/L 3.3-5.1 [facility] RBC Auto (Bld) [#/Vol]Ordere d By: Chey Kumar on 01-31-2025 RBC (Bld) [#/Vol] 3.47 10*6/uL Low 4.2-5.4 [facility] Serum creatinine measurement (mass/volume)Ordered By: Chey Kumar on 01-31-2025 Creatinine [Mass/Vol] 0.23 mg/dL Low 0.70-1.20 [facility] Serum glucose measurement (m ass/volume)Ordered By: Chey Kumar on 01-31-2025 Glucose [Mass/Vol] 98 mg/dL 70-99 [facility] Serum or plasma calcium ori urement (mass/volume)Ordered By: Chey Kumar on 01-31-2025 Calcium [Mass/Vol] 9.6 mg/dL 7.6-11.0 [facility] Serum or plasma urea nitroge n measurement (mass/volume)Ordered By: Chey Kumar on 01-31-2025 Urea nitrogen [Mass/Vol] 16 mg/dL 4-19 [facility] Sodium levelOrdered By: Waltcarmen brittany Manigriseldaalvin on 01-31-2025 Sodium [Moles/Vol] 136 mmol/L 133-145 [facility] White blood cell (WBC) count Ordered By: Chey Kumar on 01-31-2025 WBC (Bld) [#/Vol] 4.5 10*3/uL 4.4-11.0 [facility] Absolute lymphocyte countOrd ered By: Chey Kumar on 01-24-2025 Lymphocytes Auto (Unsp spec) [#/Vol] 1.68 10*3/uL 0.83-4.51 [facility] Absolute neutrophil countOrd ered By: Chey Kumar on 01-24-2025 Neutrophils (Bld) [#/Vol] 3.1 10*3/uL 2.0-7.7 [facility] Anion gap in Serum or Plasma Ordered By: Chey Kumar on 01-24-2025 Anion gap [Moles/Vol] 11 mmol/L 5-15 [facility] Automated lymphocyte count a s percentage of total leukocytesOrdered By: Chey Kumar on 01-24-2025 Lymphocytes/100 WBC Auto (Unsp spec) 30.5 % 19-41 [facility] BUN/creatinine ratioOrdered By: Chey Kumar on 01-24-2025 Urea nitrogen/Creatinine [Mass ratio] 56.5 mg/mg High 10-20 [facility] Basophil percentageOrdered B y: Melindashayoli Kumar on 01-24-2025 Basophils/100 WBC (Bld) 0.7 % 0-1 [facility] Carbon dioxide, total [Moles /volume] in Central venous bloodOrdered By: Chey Kumar on 01-24-2025 CO2 [Moles/Vol] 26.2 mmol/L 21.0-32.0 [facility] Chloride assayOrdered By: Walt Kumar on 01-24-2025 Chloride [Moles/Vol] 100 mmol/L 98-108 [facility] Eosinophil percentageOrdered By: Chey Kumar on 01-24-2025 Eosinophils/100 WBC (Bld) 1.5 % 0-5 [facility] Erythrocyte distribution wid th ratioOrdered By: Chey Kumar on 01-24-2025 Erythrocyte distribution width (RBC) [Ratio] 14.2 % 11.6-14.6 [facility] Erythrocyte distribution wid th standard deviationOrdered By: garfield Kumar on 01-24-2025 Erythrocyte distribution width (RBC) [Ratio] 47.5 fl High 35.1-43.9 [facility] Glomerular filtration rate ( GFR) estimation/1.73 sq m using serum, plasma, or whole bOrdered By: carmenwashingtonyoli Kumar on 01-24-2025 GFR/1.73 sq M.predicted among non-blacks MDRD (S/P/Bld) [Vol rate/Area] 102 mL/min/{1.73_m2} >60 [facility] Comment on above: mL/min/1.73m2 CKD-EP I Creatinine Equation (2020) Hematocrit Auto (Bld) [Volum e fraction]Ordered By: Chey Kumar on 01-24-2025 Hematocrit (Bld) [Volume fraction] 36.1 % Low 37-47 [facility] Hemoglobin measurementOrdere d By: Chey Kumar on 01-24-2025 Hemoglobin (Bld) [Mass/Vol] 12.0 g/dL 12.0-15.0 [facility] Immature granulocytes/100 WB C Auto (Bld)Ordered By: Chey Kumar 01-24-2025 Immature granulocytes/100 WBC (Bld) 0.500 % 0.0-0.9 [facility] Comment on above: IG% - Immature Granu locytes (promyelocytes, myelocytes and metamyelocytes) > 1% indicates that a LEFT SHIFT is Present. MCV (mean corpuscular volume ) determinationOrdered By: Chey Kumar on 01-24-2025 MCV (RBC) [Entitic vol] 92.1 fL 81-99 [facility] Mean corpuscular hemoglobin (MCH) determinationOrdered By: Chey Kumar on 01-24-2025 MCH (RBC) [Entitic mass] 30.6 pg 27.0-32.0 [facility] Mean corpuscular hemoglobin concentration (MCHC) determinationOrdered By: Chey Kumar on 01-24-2025 MCHC (RBC) [Mass/Vol] 33.2 g/dL 32-36 [facility] Mean platelet volume determi nationOrdered By: Chey Kumar on 01-24-2025 Platelet mean volume (Bld) [Entitic vol] 11.0 fL 6.2-12.0 [facility] Monocyte percentageOrdered B y: Chey Kumar on 01-24-2025 Monocytes/100 WBC (Bld) 10.3 % High 0-10 [facility] Neutrophil percentageOrdered By: Chey Kumar on 01-24-2025 Neutrophils/100 WBC (Bld) 56.5 % 47-70 [facility] Nucleated red blood cell per centageOrdered By: Chey Kumar on 01-24-2025 Nucleated RBC/100 WBC (Bld) [Ratio] 0 % 0-5 [facility] Platelet countOrdered By: Walt carmenbrittany Kumar on 01-24-2025 Platelets (Bld) [#/Vol] 177 10*3/uL 150-450 [facility] Potassium measurement (mass/ volume)Ordered By: Chey Kumar on 01-24-2025 Potassium (Unsp spec) [Mass/Vol] 3.5 mmol/L 3.3-5.1 [facility] RBC Auto (Bld) [#/Vol]Ordere d By: Chey Kumar on 01-24-2025 RBC (Bld) [#/Vol] 3.92 10*6/uL Low 4.2-5.4 [facility] Serum creatinine measurement (mass/volume)Ordered By: Chey Kumar on 01-24-2025 Creatinine [Mass/Vol] 0.31 mg/dL Low 0.70-1.20 [facility] Serum glucose measurement (m ass/volume)Ordered By: Chey Kumar on 01-24-2025 Glucose [Mass/Vol] 97 mg/dL 70-99 [facility] Serum or plasma calcium ori urement (mass/volume)Ordered By: Chey Kumar on 01-24-2025 Calcium [Mass/Vol] 9.5 mg/dL 7.6-11.0 [facility] Serum or plasma urea nitroge n measurement (mass/volume)Ordered By: Chey Kumar on 01-24-2025 Urea nitrogen [Mass/Vol] 18 mg/dL 4-19 [facility] Sodium levelOrdered By: Melinda brittany Stacy on 01-24-2025 Sodium [Moles/Vol] 136 mmol/L 133-145 [facility] White blood cell (WBC) count Ordered By: Chey Kumar on 01-24-2025 WBC (Bld) [#/Vol] 5.5 10*3/uL 4.4-11.0 [facility] Absolute lymphocyte countOrd ered By: Chey Kumar on 01-17-2025 Lymphocytes Auto (Unsp spec) [#/Vol] 1.51 10*3/uL 0.83-4.51 [facility] Absolute neutrophil countOrd ered By: Chey Kumar on 01-17-2025 Neutrophils (Bld) [#/Vol] 3.1 10*3/uL 2.0-7.7 [facility] Anion gap in Serum or Plasma Ordered By: Chey Kumar on 01-17-2025 Anion gap [Moles/Vol] 9 mmol/L 5-15 [facility] Automated lymphocyte count a s percentage of total leukocytesOrdered By: Chey Kumar on 01-17-2025 Lymphocytes/100 WBC Auto (Unsp spec) 28.1 % 19-41 [facility] BUN/creatinine ratioOrdered By: Chey Kumar on 01-17-2025 Urea nitrogen/Creatinine [Mass ratio] 72.0 mg/mg High 10-20 [facility] Basophil percentageOrdered B y: Chey Kumar on 01-17-2025 Basophils/100 WBC (Bld) 0.4 % 0-1 [facility] Carbon dioxide, total [Moles /volume] in Central venous bloodOrdered By: Chey Kumar on 01-17-2025 CO2 [Moles/Vol] 27.5 mmol/L 21.0-32.0 [facility] Chloride assayOrdered By: Walt Kumar on 01-17-2025 Chloride [Moles/Vol] 101 mmol/L 98-108 [facility] Eosinophil percentageOrdered By: Chey Kumar on 01-17-2025 Eosinophils/100 WBC (Bld) 1.1 % 0-5 [facility] Erythrocyte distribution wid th ratioOrdered By: Chey Kumar on 01-17-2025 Erythrocyte distribution width (RBC) [Ratio] 13.7 % 11.6-14.6 [facility] Erythrocyte distribution wid th standard deviationOrdered By: carmenwashingtonyoli Kumar on 01-17-2025 Erythrocyte distribution width (RBC) [Ratio] 44.9 fl High 35.1-43.9 [facility] Glomerular filtration rate ( GFR) estimation/1.73 sq m using serum, plasma, or whole bOrdered By: Chey Kumar on 01-17-2025 GFR/1.73 sq M.predicted among non-blacks MDRD (S/P/Bld) [Vol rate/Area] 104 mL/min/{1.73_m2} >60 [facility] Comment on above: mL/min/1.73m2 CKD-EP I Creatinine Equation (2020) Hematocrit Auto (Bld) [Volum e fraction]Ordered By: Chey Kumar on 01-17-2025 Hematocrit (Bld) [Volume fraction] 34.5 % Low 37-47 [facility] Hemoglobin measurementOrdere d By: Chey Kumar on 01-17-2025 Hemoglobin (Bld) [Mass/Vol] 11.8 g/dL Low 12.0-15.0 [facility] Immature granulocytes/100 WB C Auto (Bld)Ordered By: Chey Kumar on 01-17-2025 Immature granulocytes/100 WBC (Bld) 1.300 % High 0.0-0.9 [facility] Comment on above: IG% - Immature Granu locytes (promyelocytes, myelocytes and metamyelocytes) > 1% indicates that a LEFT SHIFT is Present. MCV (mean corpuscular volume ) determinationOrdered By: Chey Kumar on 01-17-2025 MCV (RBC) [Entitic vol] 90.8 fL 81-99 [facility] Mean corpuscular hemoglobin (MCH) determinationOrdered By: Chey Kumar on 01-17-2025 MCH (RBC) [Entitic mass] 31.1 pg 27.0-32.0 [facility] Mean corpuscular hemoglobin concentration (MCHC) determinationOrdered By: Chey Kumar on 01-17-2025 MCHC (RBC) [Mass/Vol] 34.2 g/dL 32-36 [facility] Mean platelet volume determi nationOrdered By: Chey Kumar on 01-17-2025 Platelet mean volume (Bld) [Entitic vol] 10.1 fL 6.2-12.0 [facility] Monocyte percentageOrdered B y: Chey Kumar on 01-17-2025 Monocytes/100 WBC (Bld) 12.3 % High 0-10 [facility] Neutrophil percentageOrdered By: Chey Kumar on 01-17-2025 Neutrophils/100 WBC (Bld) 56.8 % 47-70 [facility] Nucleated red blood cell per centageOrdered By: Chey Kumar on 01-17-2025 Nucleated RBC/100 WBC (Bld) [Ratio] 0 % 0-5 [facility] Platelet countOrdered By: Walt Kumar on 01-17-2025 Platelets (Bld) [#/Vol] 273 10*3/uL 150-450 [facility] Potassium measurement (mass/ volume)Ordered By: Chey Kumar on 01-17-2025 Potassium (Unsp spec) [Mass/Vol] 3.5 mmol/L 3.3-5.1 [facility] RBC Auto (Bld) [#/Vol]Ordere d By: Chey Kumar on 01-17-2025 RBC (Bld) [#/Vol] 3.80 10*6/uL Low 4.2-5.4 [facility] Serum creatinine measurement (mass/volume)Ordered By: Chey Mengalvin on 01-17-2025 Creatinine [Mass/Vol] 0.30 mg/dL Low 0.70-1.20 [facility] Serum glucose measurement (m ass/volume)Ordered By: Waltcarmenshayoli Singletongriseldaalvin on 01-17-2025 Glucose [Mass/Vol] 77 mg/dL 70-99 [facility] Serum or plasma calcium ori urement (mass/volume)Ordered By: Filibertoyoli Singletongriseldaalvin on 01-17-2025 Calcium [Mass/Vol] 9.4 mg/dL 7.6-11.0 [facility] Serum or plasma urea nitroge n measurement (mass/volume)Ordered By: Chey Mengalvin on 01-17-2025 Urea nitrogen [Mass/Vol] 21 mg/dL High 4-19 [facility] Sodium levelOrdered By: Melinda Mengalvin on 01-17-2025 Sodium [Moles/Vol] 137 mmol/L 133-145 [facility] White blood cell (WBC) count Ordered By: Chey Mengalvin on 01-17-2025 WBC (Bld) [#/Vol] 5.4 10*3/uL 4.4-11.0 [facility] Absolute lymphocyte countOrd ered By: Waltgarfield Singlteongriseldaalvin on 01-10-2025 Lymphocytes Auto (Unsp spec) [#/Vol] 1.00 10*3/uL 0.83-4.51 [facility] Absolute neutrophil countOrd ered By: Filibertoyoli Singletongriseldaalvin on 01-10-2025 Neutrophils (Bld) [#/Vol] 3.8 10*3/uL 2.0-7.7 [facility] Anion gap in Serum or Plasma Ordered By: Chey Mengalvin on 01-10-2025 Anion gap [Moles/Vol] 11 mmol/L 5-15 [facility] Automated lymphocyte count a s percentage of total leukocytesOrdered By: Filibertoyoli Singletongriseldaalvin on 01-10-2025 Lymphocytes/100 WBC Auto (Unsp spec) 17.7 % Low 19-41 [facility] BUN/creatinine ratioOrdered By: Chey Kumar on 01-10-2025 Urea nitrogen/Creatinine [Mass ratio] 61.3 mg/mg High 10-20 [facility] Basophil percentageOrdered B y: Chey Kumar on 01-10-2025 Basophils/100 WBC (Bld) 0.4 % 0-1 [facility] Bilirubin Test strip Ql (U)O rdered By: Chey Kumar on 01-10-2025 Bilirubin Ql (U) Negative Negative [facility] Carbon dioxide, total [Moles /volume] in Central venous bloodOrdered By: Chey Kumar on 01-10-2025 CO2 [Moles/Vol] 25.8 mmol/L 21.0-32.0 [facility] Chloride assayOrdered By: Walt Kumar on 01-10-2025 Chloride [Moles/Vol] 97 mmol/L Low 98-108 [facility] Eosinophil percentageOrdered By: Chey Kumar on 01-10-2025 Eosinophils/100 WBC (Bld) 1.9 % 0-5 [facility] Erythrocyte distribution wid th ratioOrdered By: Chey Kumar on 01-10-2025 Erythrocyte distribution width (RBC) [Ratio] 13.6 % 11.6-14.6 [facility] Erythrocyte distribution wid th standard deviationOrdered By: Chey Kumar on 01-10-2025 Erythrocyte distribution width (RBC) [Ratio] 44.9 fl High 35.1-43.9 [facility] Glomerular filtration rate ( GFR) estimation/1.73 sq m using serum, plasma, or whole bOrdered By: Chey Kumar on 01-10-2025 GFR/1.73 sq M.predicted among non-blacks MDRD (S/P/Bld) [Vol rate/Area] 106 mL/min/{1.73_m2} >60 [facility] Comment on above: mL/min/1.73m2 CKD-EP I Creatinine Equation (2020) Hematocrit Auto (Bld) [Volum e fraction]Ordered By: Chey Kumar on 01-10-2025 Hematocrit (Bld) [Volume fraction] 31.1 % Low 37-47 [facility] Hemoglobin measurementOrdere d By: Melindashayoli Singletongriseldaalvin on 01-10-2025 Hemoglobin (Bld) [Mass/Vol] 10.7 g/dL Low 12.0-15.0 [facility] Immature granulocytes/100 WB C Auto (Bld)Ordered By: Chey Kumar on 01-10-2025 Immature granulocytes/100 WBC (Bld) 0.700 % 0.0-0.9 [facility] Comment on above: IG% - Immature Granu locytes (promyelocytes, myelocytes and metamyelocytes) > 1% indicates that a LEFT SHIFT is Present. Ketones Test strip Ql (U)Ord ered By: Chey Kumar on 01-10-2025 Ketones Ql (U) 5 mg/dl High Negative [facility] MCV (mean corpuscular volume ) determinationOrdered By: Chey Kumar on 01-10-2025 MCV (RBC) [Entitic vol] 91.2 fL 81-99 [facility] Mean corpuscular hemoglobin (MCH) determinationOrdered By: garfield Kumar on 01-10-2025 MCH (RBC) [Entitic mass] 31.4 pg 27.0-32.0 [facility] Mean corpuscular hemoglobin concentration (MCHC) determinationOrdered By: Chey Kumar on 01-10-2025 MCHC (RBC) [Mass/Vol] 34.4 g/dL 32-36 [facility] Mean platelet volume determi nationOrdered By: Chey Kumar on 01-10-2025 Platelet mean volume (Bld) [Entitic vol] 10.3 fL 6.2-12.0 [facility] Monocyte percentageOrdered B y: Chey Kumar on 01-10-2025 Monocytes/100 WBC (Bld) 12.4 % High 0-10 [facility] Neutrophil percentageOrdered By: Chey Kumar on 01-10-2025 Neutrophils/100 WBC (Bld) 66.9 % 47-70 [facility] Nitrite Test strip Ql (U)Ord ered By: Chey Kumar on 01-10-2025 Nitrite Ql (U) Negative Negative [facility] Nucleated red blood cell per centageOrdered By: Chey Kumar on 01-10-2025 Nucleated RBC/100 WBC (Bld) [Ratio] 0 % 0-5 [facility] Platelet countOrdered By: Walt Kumar on 01-10-2025 Platelets (Bld) [#/Vol] 327 10*3/uL 150-450 [facility] Potassium measurement (mass/ volume)Ordered By: Chey Kumar on 01-10-2025 Potassium (Unsp spec) [Mass/Vol] 3.9 mmol/L 3.3-5.1 [facility] Protein Test strip Ql (U)Ord ered By: Chey Kumar on 01-10-2025 Protein Ql (U) 30 mg/dl High Negative [facility] RBC Auto (Bld) [#/Vol]Ordere d By: Chey Kumar on 01-10-2025 RBC (Bld) [#/Vol] 3.41 10*6/uL Low 4.2-5.4 [facility] Serum creatinine measurement (mass/volume)Ordered By: Chey Kumar on 01-10-2025 Creatinine [Mass/Vol] 0.27 mg/dL Low 0.70-1.20 [facility] Serum glucose measurement (m ass/volume)Ordered By: Chey Kumar on 01-10-2025 Glucose [Mass/Vol] 94 mg/dL 70-99 [facility] Serum or plasma calcium ori urement (mass/volume)Ordered By: Chey Kumar on 01-10-2025 Calcium [Mass/Vol] 9.4 mg/dL 7.6-11.0 [facility] Serum or plasma urea nitroge n measurement (mass/volume)Ordered By: Chey Kumar on 01-10-2025 Urea nitrogen [Mass/Vol] 17 mg/dL 4-19 [facility] Serum or plasma uric acid me asurement (mass/volume)Ordered By: Chey Kumar on 01-10-2025 Urate [Mass/Vol] 2.5 mg/dL Low 2.6-6.0 [facility] Comment on above: The drugs N-Acetylcy steine and Metamizole may falsely depress this assay. Sodium levelOrdered By: Melinda brittany Stacy on 01-10-2025 Sodium [Moles/Vol] 133 mmol/L 133-145 [facility] Urine clarityOrdered By: Gary samrayoli Kumar on 01-10-2025 Clarity (U) Sl. Cloudy Clear [facility] Urine color determinationOrd ered By: Chey Kumar on 01-10-2025 Color (U) Yellow Yellow [facility] Urine glucose detectionOrder ed By: Chey Kumar on 01-10-2025 Glucose Ql (U) Normal mg/dl Normal [facility] Urine leukocyte esterase det ection by dipstickOrdered By: Chey Kumar on 01-10-2025 Leukocyte esterase Test strip Ql (U) 500 /ul High Negative [facility] Urine pHOrdered By: Kadie Kumar on 01-10-2025 pH (U) 6.0 [pH] 5.0 - 8.0 [facility] Urine specific gravity measu rementOrdered By: Chey Kumar on 01-10-2025 Specific gravity (U) [Rel density] 1.015 1.002-1.030 [facility] Urine urobilinogen measureme ntOrdered By: Chey Kumar on 01-10-2025 Urobilinogen Ql (U) 1 mg/dl High Normal [facility] White blood cell (WBC) count Ordered By: Chey Kumar on 01-10-2025 WBC (Bld) [#/Vol] 5.7 10*3/uL 4.4-11.0 [facility] Absolute lymphocyte countOrd ered By: Chey Kumar on 01-03-2025 Lymphocytes Auto (Unsp spec) [#/Vol] 1.03 10*3/uL 0.83-4.51 [facility] Absolute neutrophil countOrd ered By: Chey Kumar on 01-03-2025 Neutrophils (Bld) [#/Vol] 2.4 10*3/uL 2.0-7.7 [facility] Anion gap in Serum or Plasma Ordered By: Chey Kumar on 01-03-2025 Anion gap [Moles/Vol] 11 mmol/L 5-15 [facility] Automated lymphocyte count a s percentage of total leukocytesOrdered By: Chey Kumar on 01-03-2025 Lymphocytes/100 WBC Auto (Unsp spec) 24.9 % 19-41 [facility] BUN/creatinine ratioOrdered By: Chey Kumar on 01-03-2025 Urea nitrogen/Creatinine [Mass ratio] 73.7 mg/mg High 10-20 [facility] Basophil percentageOrdered B y: Chey Kumar on 01-03-2025 Basophils/100 WBC (Bld) 0.5 % 0-1 [facility] Carbon dioxide, total [Moles /volume] in Central venous bloodOrdered By: Chey Kumar on 01-03-2025 CO2 [Moles/Vol] 25.6 mmol/L 21.0-32.0 [facility] Chloride assayOrdered By: Walt Kumar on 01-03-2025 Chloride [Moles/Vol] 99 mmol/L 98-108 [facility] Eosinophil percentageOrdered By: Chey Kumar on 01-03-2025 Eosinophils/100 WBC (Bld) 2.2 % 0-5 [facility] Erythrocyte distribution wid th ratioOrdered By: Chey Kumar on 01-03-2025 Erythrocyte distribution width (RBC) [Ratio] 13.2 % 11.6-14.6 [facility] Erythrocyte distribution wid th standard deviationOrdered By: Melindawashingtonyoli Kumar on 01-03-2025 Erythrocyte distribution width (RBC) [Ratio] 42.9 fl 35.1-43.9 [facility] Glomerular filtration rate ( GFR) estimation/1.73 sq m using serum, plasma, or whole bOrdered By: Chey Kumar on 01-03-2025 GFR/1.73 sq M.predicted among non-blacks MDRD (S/P/Bld) [Vol rate/Area] 113 mL/min/{1.73_m2} >60 [facility] Comment on above: mL/min/1.73m2 CKD-EP I Creatinine Equation (2020) Hematocrit Auto (Bld) [Volum e fraction]Ordered By: Chey Kumar on 01-03-2025 Hematocrit (Bld) [Volume fraction] 32.1 % Low 37-47 [facility] Hemoglobin measurementOrdere d By: Chey Kumar on 01-03-2025 Hemoglobin (Bld) [Mass/Vol] 11.2 g/dL Low 12.0-15.0 [facility] Immature granulocytes/100 WB C Auto (Bld)Ordered By: Chey Kumar on 01-03-2025 Immature granulocytes/100 WBC (Bld) 0.200 % 0.0-0.9 [facility] Comment on above: IG% - Immature Granu locytes (promyelocytes, myelocytes and metamyelocytes) > 1% indicates that a LEFT SHIFT is Present. MCV (mean corpuscular volume ) determinationOrdered By: Chey Kumar on 01-03-2025 MCV (RBC) [Entitic vol] 91.2 fL 81-99 [facility] Mean corpuscular hemoglobin (MCH) determinationOrdered By: Chey Kumar on 01-03-2025 MCH (RBC) [Entitic mass] 31.8 pg 27.0-32.0 [facility] Mean corpuscular hemoglobin concentration (MCHC) determinationOrdered By: Chey Kumar on 01-03-2025 MCHC (RBC) [Mass/Vol] 34.9 g/dL 32-36 [facility] Mean platelet volume determi nationOrdered By: garfield Kumar on 01-03-2025 Platelet mean volume (Bld) [Entitic vol] 10.1 fL 6.2-12.0 [facility] Monocyte percentageOrdered B y: Chey Kumar on 01-03-2025 Monocytes/100 WBC (Bld) 13.8 % High 0-10 [facility] Neutrophil percentageOrdered By: Chey Kumar on 01-03-2025 Neutrophils/100 WBC (Bld) 58.4 % 47-70 [facility] Nucleated red blood cell per centageOrdered By: Chey Kumar on 01-03-2025 Nucleated RBC/100 WBC (Bld) [Ratio] 0 % 0-5 [facility] Platelet countOrdered By: Walt Kumar on 01-03-2025 Platelets (Bld) [#/Vol] 223 10*3/uL 150-450 [facility] Potassium measurement (mass/ volume)Ordered By: Chey Kumar on 01-03-2025 Potassium (Unsp spec) [Mass/Vol] 3.5 mmol/L 3.3-5.1 [facility] RBC Auto (Bld) [#/Vol]Ordere d By: Chey Kumar on 01-03-2025 RBC (Bld) [#/Vol] 3.52 10*6/uL Low 4.2-5.4 [facility] Serum creatinine measurement (mass/volume)Ordered By: Chey Kumar on 01-03-2025 Creatinine [Mass/Vol] 0.21 mg/dL Low 0.70-1.20 [facility] Serum glucose measurement (m ass/volume)Ordered By: Chey Kumar on 01-03-2025 Glucose [Mass/Vol] 95 mg/dL 70-99 [facility] Serum or plasma calcium ori urement (mass/volume)Ordered By: Chey Kumar on 01-03-2025 Calcium [Mass/Vol] 9.1 mg/dL 7.6-11.0 [facility] Serum or plasma urea nitroge n measurement (mass/volume)Ordered By: Chey Kumar on 01-03-2025 Urea nitrogen [Mass/Vol] 15 mg/dL 4-19 [facility] Sodium levelOrdered By: Melinda Kumar on 01-03-2025 Sodium [Moles/Vol] 135 mmol/L 133-145 [facility] White blood cell (WBC) count Ordered By: Chey Kumar on 01-03-2025 WBC (Bld) [#/Vol] 4.1 10*3/uL Low 4.4-11.0 [facility] Bilirubin Test strip Ql (U)O rdered By: Chey Kumar on 12-28-2024 Bilirubin Ql (U) Negative Negative [facility] Ketones Test strip Ql (U)Ord ered By: Chey Kumar on 12-28-2024 Ketones Ql (U) 5 mg/dl High Negative [facility] Nitrite Test strip Ql (U)Ord ered By: Chey Kumar on 12-28-2024 Nitrite Ql (U) Negative Negative [facility] Protein Test strip Ql (U)Ord ered By: Chey Kumar on 12-28-2024 Protein Ql (U) 100 mg/dl High Negative [facility] Urine clarityOrdered By: Gary Kumar on 12-28-2024 Clarity (U) Turbid Clear [facility] Urine color determinationOrd ered By: Chey Kumar on 12-28-2024 Color (U) Straw Yellow [facility] Urine cultureOrdered By: Gary Kumar on 12-28-2024 Bacteria identified Cx Nom (U) Pseudomonas aeruginosa Abnormal [facility] Urine glucose detectionOrder ed By: Chey Kumar on 12-28-2024 Glucose Ql (U) Normal mg/dl Normal [facility] Urine leukocyte esterase det ection by dipstickOrdered By: Chey Kumar on 12-28-2024 Leukocyte esterase Test strip Ql (U) 500 /ul High Negative [facility] Urine pHOrdered By: Kadie Kumar on 12-28-2024 pH (U) 6.5 [pH] 5.0 - 8.0 [facility] Urine specific gravity measu rementOrdered By: Chey Kumar on 12-28-2024 Specific gravity (U) [Rel density] 1.015 1.002-1.030 [facility] Urine urobilinogen measureme ntOrdered By: Chey Kumar on 12-28-2024 Urobilinogen Ql (U) Normal mg/dl Normal [facility] Absolute lymphocyte countOrd ered By: Chey Kumar on 12-27-2024 Lymphocytes Auto (Unsp spec) [#/Vol] 1.07 10*3/uL 0.83-4.51 [facility] Absolute neutrophil countOrd ered By: Chey Kumar on 12-27-2024 Neutrophils (Bld) [#/Vol] 4.9 10*3/uL 2.0-7.7 [facility] Anion gap in Serum or Plasma Ordered By: Chey Kumar on 12-27-2024 Anion gap [Moles/Vol] 9 mmol/L 5-15 [facility] Automated lymphocyte count a s percentage of total leukocytesOrdered By: Chey Kumar on 12-27-2024 Lymphocytes/100 WBC Auto (Unsp spec) 15.4 % Low 19-41 [facility] BUN/creatinine ratioOrdered By: Melindawashingtonyoli Kumar on 12-27-2024 Urea nitrogen/Creatinine [Mass ratio] 40.9 mg/mg High 10-20 [facility] Basophil percentageOrdered B y: Chey Kumar on 12-27-2024 Basophils/100 WBC (Bld) 0.3 % 0-1 [facility] Carbon dioxide, total [Moles /volume] in Central venous bloodOrdered By: Chey Kumar on 12-27-2024 CO2 [Moles/Vol] 26.8 mmol/L 21.0-32.0 [facility] Chloride assayOrdered By: Walt Kumar on 12-27-2024 Chloride [Moles/Vol] 98 mmol/L 98-108 [facility] Eosinophil percentageOrdered By: Chey Kumar on 12-27-2024 Eosinophils/100 WBC (Bld) 1.6 % 0-5 [facility] Erythrocyte distribution wid th ratioOrdered By: Chey Kumar on 12-27-2024 Erythrocyte distribution width (RBC) [Ratio] 13.2 % 11.6-14.6 [facility] Erythrocyte distribution wid th standard deviationOrdered By: garfield Kumar on 12-27-2024 Erythrocyte distribution width (RBC) [Ratio] 44.3 fl High 35.1-43.9 [facility] Glomerular filtration rate ( GFR) estimation/1.73 sq m using serum, plasma, or whole bOrdered By: Chey Kumar on 12-27-2024 GFR/1.73 sq M.predicted among non-blacks MDRD (S/P/Bld) [Vol rate/Area] 105 mL/min/{1.73_m2} >60 [facility] Comment on above: mL/min/1.73m2 CKD-EP I Creatinine Equation (2020) Hematocrit Auto (Bld) [Volum e fraction]Ordered By: Chey Kumar on 12-27-2024 Hematocrit (Bld) [Volume fraction] 33.4 % Low 37-47 [facility] Hemoglobin A1c percentageOrd ered By: Chey Kumar on 12-27-2024 HbA1c (Bld) [Mass fraction] 5.1 % <5.7 [facility] Comment on above: Normal < 5.7 % Predi abetic 5.7 - 6.4 % Diabetic >or= 6.5 % Please note range changes. Hemoglobin measurementOrdere d By: Chey Kumar on 12-27-2024 Hemoglobin (Bld) [Mass/Vol] 11.5 g/dL Low 12.0-15.0 [facility] Immature granulocytes/100 WB C Auto (Bld)Ordered By: Chey Kumar on 12-27-2024 Immature granulocytes/100 WBC (Bld) 0.100 % 0.0-0.9 [facility] Comment on above: IG% - Immature Granu locytes (promyelocytes, myelocytes and metamyelocytes) > 1% indicates that a LEFT SHIFT is Present. MCV (mean corpuscular volume ) determinationOrdered By: Chey Kumar on 12-27-2024 MCV (RBC) [Entitic vol] 93.0 fL 81-99 [facility] Mean corpuscular hemoglobin (MCH) determinationOrdered By: Chey Kumar 12-27-2024 MCH (RBC) [Entitic mass] 32.0 pg 27.0-32.0 [facility] Mean corpuscular hemoglobin concentration (MCHC) determinationOrdered By: Chey Kumar 12-27-2024 MCHC (RBC) [Mass/Vol] 34.4 g/dL 32-36 [facility] Mean platelet volume determi nationOrdered By: Waltcarmenbrittany Manigriseldaalvin on 12-27-2024 Platelet mean volume (Bld) [Entitic vol] 10.6 fL 6.2-12.0 [facility] Monocyte percentageOrdered B y: Filibertoyoli Singletongriseldaalvin on 12-27-2024 Monocytes/100 WBC (Bld) 12.1 % High 0-10 [facility] Neutrophil percentageOrdered By: Waltcarmenshayoli Singletongriseldaalvin on 12-27-2024 Neutrophils/100 WBC (Bld) 70.5 % High 47-70 [facility] Nucleated red blood cell per centageOrdered By: Waltcarmenshayoli Singletongriseldaalvin on 12-27-2024 Nucleated RBC/100 WBC (Bld) [Ratio] 0 % 0-5 [facility] Platelet countOrdered By: Walt adeyoli Kumar on 12-27-2024 Platelets (Bld) [#/Vol] 217 10*3/uL 150-450 [facility] Potassium measurement (mass/ volume)Ordered By: Chey Kumar on 12-27-2024 Potassium (Unsp spec) [Mass/Vol] 3.7 mmol/L 3.3-5.1 [facility] RBC Auto (Bld) [#/Vol]Ordere d By: Melindashaoyli Singletongriseldaalvin on 12-27-2024 RBC (Bld) [#/Vol] 3.59 10*6/uL Low 4.2-5.4 [facility] Serum creatinine measurement (mass/volume)Ordered By: Chey Kumar on 12-27-2024 Creatinine [Mass/Vol] 0.28 mg/dL Low 0.70-1.20 [facility] Serum glucose measurement (m ass/volume)Ordered By: Chey Kumar on 12-27-2024 Glucose [Mass/Vol] 85 mg/dL 70-99 [facility] Serum or plasma calcium ori urement (mass/volume)Ordered By: Chey Kumar on 12-27-2024 Calcium [Mass/Vol] 8.9 mg/dL 7.6-11.0 [facility] Serum or plasma urea nitroge n measurement (mass/volume)Ordered By: Chey Kumar on 12-27-2024 Urea nitrogen [Mass/Vol] 11 mg/dL 4-19 [facility] Sodium levelOrdered By: Melinda Kumar on 12-27-2024 Sodium [Moles/Vol] 134 mmol/L 133-145 [facility] White blood cell (WBC) count Ordered By: Chey Kumar on 12-27-2024 WBC (Bld) [#/Vol] 7.0 10*3/uL 4.4-11.0 [facility] CNPNon 12-23-2024 CNPN Telephone (NEAGCLM) TENA CANNON ([id number]) 1940 F Date Time Provider Department 12/23/24 [...] TEARS OPHTHALMIC) Use in eyes. - rutin/hesp/bioflav/C/h [id number] (BIOFLEX ORAL) Take 1 capsule by mouth twice daily. - CPAP BipaP @ 14/9 cm of water with humidification, removable water dispenser (for cleaning) . Mask (small/ per patient preference) , filters, tubing, humidifier and lifetime supplies. (G47.33, Z99.89) Obstructive sleep apnea on CPAP - cyclopentola (more content not included)... Normal [facility] 12-22-[address] [facility] Telephone (FPWADS) TENA CANNON ([id number]) 1940 F Date Time Provider Department 12/22/24 [...] T11 and T12; she is currently at [facility]. Daughter states she is in so much pain and waiting 8 weeks in pain and would like to have surgery if possible. Daughter states her Mom is of sound mind and wants to MOVE forward. Patient has been identified by name and birthdate. Duration of symptoms: N/A Person calling: daughter: Juan [phone] Was an appointment scheduled: No Closing statement: Symptom Call: Thank you for calling [facility], your call is very important. A nurse will call in approximately 2-4 hours during business hours. If this is an emergency, please contact 911. Sahra Hooker MD 12/22/2024 9:55 AM Signed Spine surgery consult initiate. Dr Shawn Dorsey in [facility] is the most aggressive surgeon we're [...] not sure what is going on Juan [phone] fyi Allergies As of Date: 12/22/2024 Noted [...] subsequent encounter [S22.000G] Order(s):CONSULT TO SPINE SURGERY [[id number]] Order #: [id number]: 1 FUTURE Prescriptions as of 12/22/2024 - [...] once nicole (more content not included)... Normal [facility] 12-21-2024 PHAN Telephone (AKURFSafia) TENA CANNON ([id number]) 1940 F Date Time Provider Department 12/21/24 [...] she had cath in - currently at [facility]. - Called them and lvm to reschedule and possibly send a cath removal order if they are able to do so. Nirali Greene 12/22/2024 9:41 AM Signed Called [facility] again- they stated they have her scheduled for a cath removal and bladder scan for the . They do need a order though (not sure how they have it scheduled) - I advised I would fax them a order and if she has any issues they could follow up with a appointment Fax- [phone] Nirali Mehta, Laury Tobin APRN.SUPERVISOR [employer] 12/22/2024 10:04 AM Signed Maybe with another urology office? I can't place order for her to have catheter removed as she is new patient. Looks like urology was not consulted during admission. Her PCP or slasher operator at [facility] should be able to place order for it. Juan Carlos Baiette 12/22/2024 10:15 AM Signed Called the construction scheduler- she said she will confirm that she has a order and speak with the slasher operator. If she needs anything from us she [...] ophthalmic solu (more content not included)... Normal [facility] Absolute lymphocyte countOrd ered By: Chey Kumar on 12-20-2024 Lymphocytes Auto (Unsp spec) [#/Vol] 0.83 10*3/uL 0.83-4.51 [facility] Absolute neutrophil countOrd ered By: Chey Kumar on 12-20-2024 Neutrophils (Bld) [#/Vol] 6.3 10*3/uL 2.0-7.7 [facility] Anion gap in Serum or Plasma Ordered By: Melindawashingtonyoli Kumar on 12-20-2024 Anion gap [Moles/Vol] 11 mmol/L 5-15 [facility] Automated lymphocyte count a s percentage of total leukocytesOrdered By: Chey Kumar on 12-20-2024 Lymphocytes/100 WBC Auto (Unsp spec) 9.8 % Low 19-41 [facility] BUN/creatinine ratioOrdered By: Chey Kumar on 12-20-2024 Urea nitrogen/Creatinine [Mass ratio] 53.7 mg/mg High 10-20 [facility] Basophil percentageOrdered B y: Chey Kumar on 12-20-2024 Basophils/100 WBC (Bld) 0.2 % 0-1 [facility] Bilirubin, totalOrdered By: Chey Kumar on 12-20-2024 Bilirubin [Mass/Vol] 0.58 mg/dL 0.00-1.30 [facility] CNPNon 12-20-2024 ANTONYN Telephone (JULIANNANCANA M) TENA CANNON ([id number]) 1940 F Date Time Provider Department 12/20/24 SAHRA GUY During your visit today, we recorded the following information about you: Tete Melchor 12/20/2024 9:25 AM Signed Tena is a patient of Sahra Guy MD today ANTONY Oliveira from [facility] called to speak with clinical staff regarding medication questions and why patient is taking certain medications, she stated patient is confused. Please scott her today. Patient has been identified by name and birthdate. Was an appointment scheduled: No Closing statement: Results or non-symptom based questions: Thank you for calling [facility], your call will be returned within the [...] supplies. (G47.3 (more content not included)... [facility] ([id number]) 1940 F Date Time Provider Department 12/20/24 SAHRA GUY During your visit today, we recorded the following information about you: Norma Long 12/20/2024 11:36 AM Signed [place] Roxanne hogan [facility] is calling Sahra Guy MD today to request the MRI of the spine on 12/15/2024 be faxed to them at fax# [phone] Call back to [place] brianna Oliveira at phone [phone] Patient has been identified by name and birthdate. Person calling: nurse Call patient at: on cell [phone] (home) [phone] (cell) Was an appointment scheduled: Adonay Taylor [...] TEARS OPHTHALMIC) Use in eyes. - rutin/hesp/bioflav/C/h [id number] (BIOFLEX ORAL) Take 1 capsule by mouth [...] [B91] 05/12/2005 (more content not included)... Normal [facility] Carbon dioxide, total [Moles /volume] in Central venous bloodOrdered By: Chey Kumar on 12-20-2024 CO2 [Moles/Vol] 26.7 mmol/L 21.0-32.0 [facility] Chloride assayOrdered By: Walt Kumar on 12-20-2024 Chloride [Moles/Vol] 97 mmol/L Low 98-108 [facility] Eosinophil percentageOrdered By: Chey Kumar on 12-20-2024 Eosinophils/100 WBC (Bld) 1.6 % 0-5 [facility] Erythrocyte distribution wid th ratioOrdered By: Chey Kumar on 12-20-2024 Erythrocyte distribution width (RBC) [Ratio] 12.8 % 11.6-14.6 [facility] Erythrocyte distribution wid th standard deviationOrdered By: Chey Kumar on 12-20-2024 Erythrocyte distribution width (RBC) [Ratio] 42.7 fl 35.1-43.9 [facility] Glomerular filtration rate ( GFR) estimation/1.73 sq m using serum, plasma, or whole bOrdered By: Chey Kumar on 12-20-2024 GFR/1.73 sq M.predicted among non-blacks MDRD (S/P/Bld) [Vol rate/Area] 104 mL/min/{1.73_m2} >60 [facility] Comment on above: mL/min/1.73m2 CKD-EP I Creatinine Equation (2020) Hematocrit Auto (Bld) [Volum e fraction]Ordered By: Chey Kumar on 12-20-2024 Hematocrit (Bld) [Volume fraction] 40.5 % 37-47 [facility] Hemoglobin measurementOrdere d By: Chey Kumar on 12-20-2024 Hemoglobin (Bld) [Mass/Vol] 14.0 g/dL 12.0-15.0 [facility] Immature granulocytes/100 WB C Auto (Bld)Ordered By: Chey Kumar on 12-20-2024 Immature granulocytes/100 WBC (Bld) 1.300 % High 0.0-0.9 [facility] Comment on above: IG% - Immature Granu locytes (promyelocytes, myelocytes and metamyelocytes) > 1% indicates that a LEFT SHIFT is Present. Laboratory - Chemistry and C hemistry - challengeOrdered By: Chey Kumar on 12-20-2024 AST [Catalytic activity/Vol] 43 U/L High <32 [facility] MCV (mean corpuscular volume ) determinationOrdered By: Chey Kumar on 12-20-2024 MCV (RBC) [Entitic vol] 91.8 fL 81-99 [facility] Mean corpuscular hemoglobin (MCH) determinationOrdered By: Chey Kumar on 12-20-2024 MCH (RBC) [Entitic mass] 31.7 pg 27.0-32.0 [facility] Mean corpuscular hemoglobin concentration (MCHC) determinationOrdered By: Chey Kumar on 12-20-2024 MCHC (RBC) [Mass/Vol] 34.6 g/dL 32-36 [facility] Mean platelet volume determi nationOrdered By: Chey Kumar on 12-20-2024 Platelet mean volume (Bld) [Entitic vol] 11.2 fL 6.2-12.0 [facility] Monocyte percentageOrdered B y: Chey Kumar on 12-20-2024 Monocytes/100 WBC (Bld) 12.9 % High 0-10 [facility] Neutrophil percentageOrdered By: Chey Kumar on 12-20-2024 Neutrophils/100 WBC (Bld) 74.2 % High 47-70 [facility] Nucleated red blood cell per centageOrdered By: Chey Kumar on 12-20-2024 Nucleated RBC/100 WBC (Bld) [Ratio] 0 % 0-5 [facility] Platelet countOrdered By: Walt Kumar on 12-20-2024 Platelets (Bld) [#/Vol] 230 10*3/uL 150-450 [facility] Potassium measurement (mass/ volume)Ordered By: Chey Kumar on 12-20-2024 Potassium (Unsp spec) [Mass/Vol] 4.0 mmol/L 3.3-5.1 [facility] RBC Auto (Bld) [#/Vol]Ordere d By: Chey Kumar on 12-20-2024 RBC (Bld) [#/Vol] 4.41 10*6/uL 4.2-5.4 [facility] Serum creatinine measurement (mass/volume)Ordered By: Chey Kumar on 12-20-2024 Creatinine [Mass/Vol] 0.30 mg/dL Low 0.70-1.20 [facility] Serum globulin measurementOr dered By: Chey Kumar on 12-20-2024 Globulin (S) [Mass/Vol] 2.8 g/dL 2.2-4.2 [facility] Serum glucose measurement (m ass/volume)Ordered By: Chey Kumar on 12-20-2024 Glucose [Mass/Vol] 108 mg/dL High 70-99 [facility] Serum or plasma alanine grimaldo otransferase (ALT) measurementOrdered By: Chey Kumar on 12-20-2024 ALT [Catalytic activity/Vol] 26 U/L <35 [facility] Serum or plasma albumin ori urement (mass/volume)Ordered By: Chey Kumar on 12-20-2024 Albumin [Mass/Vol] 3.3 g/dL Low 3.4-4.8 [facility] Serum or plasma albumin/glob ulin mass ratioOrdered By: Chey Kumar on 12-20-2024 Albumin/Globulin [Mass ratio] 1.2 {ratio} 0.9-2.4 [facility] Serum or plasma alkaline nikia sphatase measurementOrdered By: Chey Kumar on 12-20-2024 ALP [Catalytic activity/Vol] 98 U/L 35-104 [facility] Serum or plasma calcium ori urement (mass/volume)Ordered By: Chey Kumar on 12-20-2024 Calcium [Mass/Vol] 9.4 mg/dL 7.6-11.0 [facility] Serum or plasma urea nitroge n measurement (mass/volume)Ordered By: Chey Kumar on 12-20-2024 Urea nitrogen [Mass/Vol] 16 mg/dL 4-19 [facility] Sodium levelOrdered By: Melinda Kumar on 12-20-2024 Sodium [Moles/Vol] 135 mmol/L 133-145 [facility] Total proteinOrdered By: Gary Kumar on 12-20-2024 Protein [Mass/Vol] 6.1 g/dL 5.9-8.4 [facility] White blood cell (WBC) count Ordered By: Chey Kumar on 12-20-2024 WBC (Bld) [#/Vol] 8.5 10*3/uL 4.4-11.0 [facility] Basic metabolic 2000 panelon 12-19-2024 Anion gap [Moles/Vol] 8 mmol/L Normal 8-15 [facility] Comment on above: Order Comment: Speci men Type: BLOOD SPECIMENOrdering Facility: [facility] Address: [address] [place] [address] Performed By: #### 2 4321-2, ####[facility] LABORATORYCLIA [id number] [place] [address] [place] [facility] Calcium [Mass/Vol] 8.9 mg/dL Normal 8.5-10.2 [facility] Comment on above: Order Comment: Speci men Type: BLOOD SPECIMENOrdering Facility: [facility] Address: [address] [place] [address] Performed By: #### 2 4321-2, ####[facility] LABORATORYCLIA [id number] [place] [address] [place] Chloride [Moles/Vol] 99 mmol/L Normal 98-107 [facility] Comment on above: Order Comment: Speci men Type: BLOOD SPECIMENOrdering Facility: [facility] Address: [address] [place] [address] Performed By: #### 2 4322, ####[facility]DR[facility] LABORATORYCLIA [id number] [place] [address] [place] CO2 [Moles/Vol] 32 mmol/L High 22-30 [facility] Comment on above: Order Comment: Speci men Type: BLOOD SPECIMENOrdering Facility: [facility] Address: [address] [place] [address] Performed By: #### 2 2, ####KENDR[facility] LABORATORYCLIA [id number] [address] [place] Creatinine [Mass/Vol] 0.34 mg/dL Low 0.58-0.96 [facility] Comment on above: Order Comment: Speci men Type: BLOOD SPECIMENOrdering Facility: [facility] Address: [address] [place] [address] Performed By: #### 2 2, ####KENDRICK LABORATORYCLIA [id number] [address] Creatinine and Glomerular filtration rate.predicted panel (S/P/Bld) 100 mL/min/1.73m??? Normal >=60 [facility] Comment on above: Order Comment: Speci men Type: BLOOD SPECIMENOrdering Facility: [facility] Address: [address] [place] [address] Result Comment: Sara mated Glomerular Filtration Rate [...] Performed By: #### 2 2, ####KENDR[facility] LABORATORYCLIA [id number] [address] Glucose [Mass/Vol] 89 mg/dL Normal 74-99 [facility] Comment on above: Order Comment: Speci men Type: BLOOD SPECIMENOrdering Facility: [facility] Address: [address] [place] [address] Result Comment: The [place] [employer] (ADA) provides guidance for cutoff [...] Standards of Medical Care in Diabetes 2016, [place] [employer]. Diabetes Care. 2016.39(Suppl 1). Performed By: #### 2 4320-09, ####KENDRICK LABORATORYCLIA [id number] [place] [address] [place] Potassium [Moles/Vol] 4.1 mmol/L Normal 3.7-5.1 [facility] Comment on above: Order Comment: Speckristi bronson Type: BLOOD SPECIMENOrdering Facility: [facility] Address: [address] [place] [address] Performed By: #### 2 4320-09, ####KENDRICK LABORATORYCLIA [id number] [place] [address] [place] Sodium [Moles/Vol] 139 mmol/L Normal 136-144 [facility] Comment on above: Order Comment: Helena bronson Type: BLOOD SPECIMENOrdering Facility: [facility] Address: [address] [place] [address] Performed By: #### 2 4320-09, ####KENDRICK LABORATORYCLIA [id number] [place] [address] [place] Urea nitrogen [Mass/Vol] 18 mg/dL Normal 7-21 [facility] Comment on above: Order Comment: Helena bronson Type: BLOOD SPECIMENOrdering Facility: [facility] Address: [address] [place] [address] Performed By: #### 2 4320-09, ####KENDRICK LABORATORYCLIA [id number] [address] CBC panel Auto (Bld)on 12-19 Erythrocyte distribution width (RBC) [Ratio] 12.6 % Normal 11.5-15.0 [facility] Comment on above: Order Comment: Speci men Type: BLOOD SPECIMENOrdering Facility: [facility] Address: [address] [place] [address] Performed By: #### 5 8410-2 ####KENDRICK LABORATORYCLIA [id number] [address] Hematocrit (Bld) [Volume fraction] 36.3 % Normal 36.0-46.0 [facility] Comment on above: Order Comment: Speci men Type: BLOOD SPECIMENOrdering Facility: [facility] Address: [address] [place] [address] Performed By: #### 5 8410-2 ####KENDRICK LABORATORYCLIA [id number] [address] Hemoglobin (Bld) [Mass/Vol] 12.2 g/dL Normal 11.5-15.5 [facility] Comment on above: Order Comment: Speci men Type: BLOOD SPECIMENOrdering Facility: [facility] Address: [address] [place], [place] [address] Performed By: #### 5 8410-2 ####KENDRICK LABORATORYCLIA [id number] [address] MCH (RBC) [Entitic mass] 31.0 pg Normal 26.0-34.0 [facility] Comment on above: Order Comment: Speci men Type: BLOOD SPECIMENOrdering Facility: [facility] Address: [address] [place] [address] Performed By: #### 5 8410-2 ####KENDRICK LABORATORYCLIA [id number] [address] MCHC (RBC) [Mass/Vol] 33.6 g/dL Normal 30.5-36.0 [facility] Comment on above: Order Comment: Speci men Type: BLOOD SPECIMENOrdering Facility: [facility] Address: [address] [place] [address] Performed By: #### 5 8410-2 ####KENDRICK LABORATORYCLIA [id number] [address] [place] MCV (RBC) [Entitic vol] 92.1 fL Normal 80.0-100.0 [facility] Comment on above: Order Comment: Speci men Type: BLOOD SPECIMENOrdering Facility: [facility] Address: [address] [place] [address] Performed By: #### 5 8410-2 ####KENDRICK LABORATORYCLIA [id number] [place] [address] [place] Nucleated RBC (Bld) [#/Vol] 10*3/uL Normal <0.01 [facility] Comment on above: Order Comment: Speci men Type: BLOOD SPECIMENOrdering Facility: [facility] Address: [address] [place] [address] Performed By: #### 5 8410-2 ####KENDRICK LABORATORYCLIA [id number] [address] [place] Platelet mean volume (Bld) [Entitic vol] 10.9 fL Normal 9.0-12.7 [facility] Comment on above: Order Comment: Speci men Type: BLOOD SPECIMENOrdering Facility: [facility] Address: [address] [place] [address] Performed By: #### 5 8410-2 ####KENDRICK LABORATORYCLIA [id number] [address] [place] Platelets (Bld) [#/Vol] 185 10*3/uL Normal 150-400 [facility] Comment on above: Order Comment: Speci men Type: BLOOD SPECIMENOrdering Facility: [facility] Address: [address] [place] [address] Performed By: #### 5 8410-2 ####KENDRICK LABORATORYCLIA [id number] [address] [place] RBC (Bld) [#/Vol] 3.94 10*6/uL Normal 3.90-5.20 [facility] Comment on above: Order Comment: Speci men Type: BLOOD SPECIMENOrdering Facility: [facility] Address: [address] [place] [address] Performed By: #### 5 8410-2 ####KENDRICK LABORATORYCLIA [id number] [place] [id number] [facility] WBC (Bld) [#/Vol] 4.50 10*3/uL Normal 3.70-11.00 [facility] Comment on above: Order Comment: Speci men Type: BLOOD SPECIMENOrdering Facility: [facility] Address: [address] [place] [address] Performed By: #### 5 8410-2 ####KENDRICK LABORATORYCLIA [id number] [place] [id number] [facility] CNDSon 12-19-2024 CNDS HNO ID: [id number] Author: MORIAH LOPEZ MD Service: Hospital Medicine [...] is causing this. Follow up with a Christian Education Director for your constipation. Remove Phoenix catheter after having flomax for 1 week. Remove on 12/24 to see if you can urinate on your own again. Referral to Urology, Spine surgery, Gastroenterology placed. Thursday-Thursday after 9 am, call concrete boom operator at [phone] [phone] and ask for the appointment line [...] No pending results Discharge Disposition Discharge Disposition: Group Home Facility - Less than 30 Days Follow [...] at 6 pm that he spoke with [facility] neurosurgeon supervisor show operations who said that patient isn't a surgical [...] flomax. Attempt Phoenix removal on 12/24 at [facility]. If can't urinate, insert Phoenix back in. Follow up with Urology. Had cystitis and improved with abx. DC on cefdinir Transitions of Care Critical Issues: SPECIALIST FOLLOW-UP: Urology Spinal surgery and Gastroenterology HAYNES MEDICATION CHANGES: see med list LABS AND PROCEDURES PENDING AT DISCHARGE: No pending results. FOLLOW-UP APPOINTMENTS ALREADY SCHEDULED WITH A [facility] PROVIDER: Future Appointments Date Time Provider Department Center 01/02/2025 10:30 AM [facility]/05/[facility]25 9:40 AM Harinder Kiran PA-C [facility] ALLERGIES Allergen Reactions Keflex [Cephalexin] Diarrhea, GI Upset extreme diarrhea Vioxx [Rofecoxib] Intolerance Makes capillaryblood vessels break" Novocain [Procaine * Intolerance headaches Vanderbilt-3 Fish Oil [O* Intoler (more content not included)... Normal [facility] Magnesium SerPl-mCncon 12-19 Magnesium [Mass/Vol] 2.2 mg/dL Normal 1.7-2.3 [facility] Comment on above: Order Comment: Speci men Type: BLOOD SPECIMENOrdering Facility: [facility] Address: [address] [place] [id number] Performed By: #### 2 4321-2, ####[facility] LABORATORYCLIA [id number] [place] [address] [place] Basic metabolic 2000 panelon 12-18-2024 Anion gap [Moles/Vol] 9 mmol/L Normal 8-15 [facility] Comment on above: Order Comment: Spec men Type: BLOOD SPECIMENOrdering Facility: [facility] Address: [address] [place], [place] [address] Performed By: #### 2 4321-2, ####[facility] LABORATORYCLIA [id number] [place] [id number] [place] Calcium [Mass/Vol] 9.3 mg/dL Normal 8.5-10.2 [facility] Comment on above: Order Comment: Speci men Type: BLOOD SPECIMENOrdering Facility: [facility] Address: [address] [place] [address] Performed By: #### 2 432-2, ####KENDRICK LABORATORYCLIA [id number] [place] [address] [place] Chloride [Moles/Vol] 96 mmol/L Low 98-107 [facility] Comment on above: Order Comment: Speci men Type: BLOOD SPECIMENOrdering Facility: [facility] Address: [address] [place] [address] Performed By: #### 2 4321-2, ####KENDRICK LABORATORYCLIA [id number] [place] [id number] [place] CO2 [Moles/Vol] 31 mmol/L High 22-30 [facility] Comment on above: Order Comment: Speci men Type: BLOOD SPECIMENOrdering Facility: [facility] Address: [address] [place] [address] Performed By: #### 2 432-2, ####KENDRICK LABORATORYCLIA [id number] [place] [address] [place] Creatinine [Mass/Vol] 0.30 mg/dL Low 0.58-0.96 [facility] Comment on above: Order Comment: Speci men Type: BLOOD SPECIMENOrdering Facility: [facility] Address: [address] [place] [address] Performed By: #### 2 4322, ####KENDRICK LABORATORYCLIA [id number] [place] [address] [place] [facility] [place] Creatinine and Glomerular filtration rate.predicted panel (S/P/Bld) 103 mL/min/1.73m??? Normal >=60 [facility] Comment on above: Order Comment: Speci men Type: BLOOD SPECIMENOrdering Facility: [facility] Address: [address] [place] [address] Result Comment: Sara mated Glomerular Filtration Rate [...] Performed By: #### 2 43208-04, ####KENDRICK LABORATORYCLIA [id number] [place] [address] [place] Glucose [Mass/Vol] 99 mg/dL Normal 74-99 [facility] Comment on above: Order Comment: Helena bronson Type: BLOOD SPECIMENOrdering Facility: [facility] Address: [address] [place] [address] Result Comment: The [place] Diabetes Association (ADA) provides guidance for cutoff [...] Standards of Medical Care in Diabetes 2016, [place] Diabetes Association. Diabetes Care. 2016.39(Suppl 1). Performed By: #### 2 4320-09, ####KENDRICK LABORATORYCLIA [id number] [place] [address] [place] Potassium [Moles/Vol] 4.1 mmol/L Normal 3.7-5.1 [facility] Comment on above: Order Comment: Helena bronson Type: BLOOD SPECIMENOrdering Facility: [facility] Address: [address] [place] [address] Performed By: #### 2 4320-09, ####KENDRICK LABORATORYCLIA [id number] [place] [address] [place] Sodium [Moles/Vol] 136 mmol/L Normal 136-144 [facility] Comment on above: Order Comment: Helena bronson Type: BLOOD SPECIMENOrdering Facility: [facility] Address: [address] [place] [address] Performed By: #### 2 4321-2, 58554-5 ####KENDRICK LABORATORYCLIA [id number] [address] STATES [facility] Urea nitrogen [Mass/Vol] 18 mg/dL Normal 7-21 [facility] Comment on above: Order Comment: Speci men Type: BLOOD SPECIMENOrdering Facility: [facility] Address: [address] [place] [address] Performed By: #### 2 4321-2, ####KENDRICK LABORATORYCLIA [id number] [address] CBC panel Auto (Bld)on 12-18 Erythrocyte distribution width (RBC) [Ratio] 12.5 % Normal 11.5-15.0 [facility] Comment on above: Order Comment: Speci men Type: BLOOD SPECIMENOrdering Facility: [facility] Address: [address] [place] [address] Performed By: #### 5 8410-2 ####KENDRICK LABORATORYCLIA [id number] [address] Hematocrit (Bld) [Volume fraction] 35.1 % Low 36.0-46.0 [facility] Comment on above: Order Comment: Speci men Type: BLOOD SPECIMENOrdering Facility: [facility] Address: [address] [place] [address] Performed By: #### 5 8410-2 ####KENDRICK LABORATORYCLIA [id number] [address] STATES [facility] Hemoglobin (Bld) [Mass/Vol] 12.0 g/dL Normal 11.5-15.5 [facility] Comment on above: Order Comment: Speci men Type: BLOOD SPECIMENOrdering Facility: [facility] Address: [address] [place] [address] Performed By: #### 5 8410-2 ####KENDRICK LABORATORYCLIA [id number] [address] [place] MCH (RBC) [Entitic mass] 31.3 pg Normal 26.0-34.0 [facility] Comment on above: Order Comment: Speci men Type: BLOOD SPECIMENOrdering Facility: [facility] Address: [address] [place] [address] Performed By: #### 5 8410-2 ####KENDRICK LABORATORYCLIA [id number] [address] [place] MCHC (RBC) [Mass/Vol] 34.2 g/dL Normal 30.5-36.0 [facility] Comment on above: Order Comment: Speci men Type: BLOOD SPECIMENOrdering Facility: [facility] Address: [address] [place] [address] Performed By: #### 5 8410-2 ####KENDRICK LABORATORYCLIA [id number] [address] [place] MCV (RBC) [Entitic vol] 91.4 fL Normal 80.0-100.0 [facility] Comment on above: Order Comment: Speci men Type: BLOOD SPECIMENOrdering Facility: [facility] Address: [address] [place] [address] Performed By: #### 5 8410-2 ####KENDRICK LABORATORYCLIA [id number] [address] [place] Nucleated RBC (Bld) [#/Vol] 10*3/uL Normal <0.01 [facility] Comment on above: Order Comment: Speci men Type: BLOOD SPECIMENOrdering Facility: [facility] Address: [address] [place] [address] Performed By: #### 5 8410-2 ####KENDRICK LABORATORYCLIA [id number] [address] [place] Platelet mean volume (Bld) [Entitic vol] 10.7 fL Normal 9.0-12.7 [facility] Comment on above: Order Comment: Speci men Type: BLOOD SPECIMENOrdering Facility: [facility] Address: [address] [place] [address] Performed By: #### 5 8410-2 ####KENDRICK LABORATORYCLIA [id number] [address] [place] Platelets (Bld) [#/Vol] 212 10*3/uL Normal 150-400 [facility] Comment on above: Order Comment: Speci men Type: BLOOD SPECIMENOrdering Facility: [facility] Address: [facility] [place] [address] Performed By: #### 5 8410-2 ####KENDRICK LABORATORYCLIA [id number] [address] [place] RBC (Bld) [#/Vol] 3.84 10*6/uL Low 3.90-5.20 [facility] Comment on above: Order Comment: Speci men Type: BLOOD SPECIMENOrdering Facility: [facility] Address: [address] [place] [address] Performed By: #### 5 8410-2 ####[place] LABORATORYCLIA [id number] [address] WBC (Bld) [#/Vol] 6.24 10*3/uL Normal 3.70-11.00 [facility] Comment on above: Order Comment: Speci men Type: BLOOD SPECIMENOrdering Facility: [facility] Address: [address] [place] [address] Performed By: #### 5 8410-2 ####[facility] [place] LABORATORYCLIA [id number] [address] [place] Magnesium SerPl-mCncon 12-18 Magnesium [Mass/Vol] 1.8 mg/dL Normal 1.7-2.3 [facility] Comment on above: Order Comment: Speci men Type: BLOOD SPECIMENOrdering Facility: [facility] Address: [address] [place] [address] Performed By: #### 2 4321-2, 32968-8 ####KENDRICK LABORATORYCLIA [id number] [place] [address] [place] Basic metabolic 2000 panelon 12-17-2024 Anion gap [Moles/Vol] 9 mmol/L Normal 8-15 [facility] Comment on above: Order Comment: Speci men Type: BLOOD SPECIMENOrdering Facility: [facility] Address: [address] [place] [address] Performed By: #### 1 9123-9, 77890-3 ####KENDRICK LABORATORYCLIA [id number] [place] [address] [place] Calcium [Mass/Vol] 9.9 mg/dL Normal 8.5-10.2 [facility] Comment on above: Order Comment: Speci men Type: BLOOD SPECIMENOrdering Facility: [facility] Address: [address] [place] [address] Performed By: #### 1 91239, 02933-5 ####KENDRICK LABORATORYCLIA [id number] [place] [address] [place] Chloride [Moles/Vol] 97 mmol/L Low 98-107 [facility] Comment on above: Order Comment: Speci men Type: BLOOD SPECIMENOrdering Facility: [facility] Address: [address] [place] [address] Performed By: #### 1 91239, 53737-1 ####KENDRICK LABORATORYCLIA [id number] [address] STATES OF [facility] CO2 [Moles/Vol] 32 mmol/L High 22-30 [facility] Comment on above: Order Comment: Speci men Type: BLOOD SPECIMENOrdering Facility: [facility] Address: [address] [place] [address] Performed By: #### 1 91239, 14632-4 ####KENDRICK LABORATORYCLIA [id number] [address] [place] Creatinine [Mass/Vol] 0.27 mg/dL Low 0.58-0.96 [facility] Comment on above: Order Comment: Speci men Type: BLOOD SPECIMENOrdering Facility: [facility] Address: [address] [place] [address] Performed By: #### 1 91239, 28886-0 ####KENDRICK LABORATORYCLIA [id number] [address] Creatinine and Glomerular filtration rate.predicted panel (S/P/Bld) 106 mL/min/1.73m??? Normal >=60 [facility] Comment on above: Order Comment: Speci men Type: BLOOD SPECIMENOrdering Facility: [facility] Address: [address] [place] [address] Result Comment: Sara mated Glomerular Filtration Rate [...] actual GFR. Performed By: #### 1 9123-9, 61403-2 ####[facility] LABORATORYCLIA [id number] [place] [address] [place] Glucose [Mass/Vol] 97 mg/dL Normal 74-99 [facility] Comment on above: Order Comment: Helena bronson Type: BLOOD SPECIMENOrdering Facility: [facility] Address: [address] [place] [address] Result Comment: The [place] Diabetes Association (ADA) provides guidance for cutoff [...] Standards of Medical Care in Diabetes 2016, [place] [employer]. Diabetes Care. 2016.39(Suppl 1). Performed By: #### 1 9123-9, 70605-9 ####[facility] LABORATORYCLIA [id number] [place] [address] [place] Potassium [Moles/Vol] 3.5 mmol/L Low 3.7-5.1 [facility] Comment on above: Order Comment: Helena [facility] Type: BLOOD SPECIMENOrdering Facility: [facility] Address: [address] [place], [place] [address] Performed By: #### 1 9123-9, 53535-7 ####KENDRICK LABORATORYCLIA [id number] [place] [address] [place] Sodium [Moles/Vol] 138 mmol/L Normal 136-144 [facility] Comment on above: Order Comment: Speci men Type: BLOOD SPECIMENOrdering Facility: [facility] Address: [address] [place] [address] Performed By: #### 1 9123-9, 32614-3 ####KENDRICK LABORATORYCLIA [id number] [place] [address] [place] Urea nitrogen [Mass/Vol] 23 mg/dL High 7-21 [facility] Comment on above: Order Comment: Speci men Type: BLOOD SPECIMENOrdering Facility: [facility] Address: [address] [place] [address] Performed By: #### 1 9123-9, 60473-6 ####KENDRICK LABORATORYCLIA [id number] [place] [address] [place] CBC panel Auto (Bld)on 12-17 Erythrocyte distribution width (RBC) [Ratio] 12.5 % Normal 11.5-15.0 [facility] Comment on above: Order Comment: Speci men Type: BLOOD SPECIMENOrdering Facility: [facility] Address: [address] [place] [address] Performed By: #### 5 8410-2 ####KENDRICK LABORATORYCLIA [id number] [address] [place] Hematocrit (Bld) [Volume fraction] 35.8 % Low 36.0-46.0 [facility] Comment on above: Order Comment: Speci men Type: BLOOD SPECIMENOrdering Facility: [facility] Address: [address] [place] [address] Performed By: #### 5 8410-2 ####KENDRICK LABORATORYCLIA [id number] [address] [place] Hemoglobin (Bld) [Mass/Vol] 12.8 g/dL Normal 11.5-15.5 [facility] Comment on above: Order Comment: Speci men Type: BLOOD SPECIMENOrdering Facility: [facility] Address: [address] [place] [address] Performed By: #### 5 8410-2 ####KENDRICK LABORATORYCLIA [id number] [address] MCH (RBC) [Entitic mass] 31.9 pg Normal 26.0-34.0 [facility] Comment on above: Order Comment: Speci men Type: BLOOD SPECIMENOrdering Facility: [facility] Address: [address] [place] [address] Performed By: #### 5 8410-2 ####KENDRICK LABORATORYCLIA [id number] [address] MCHC (RBC) [Mass/Vol] 35.8 g/dL Normal 30.5-36.0 [facility] Comment on above: Order Comment: Speci men Type: BLOOD SPECIMENOrdering Facility: [facility] Address: [address] [place] [address] Performed By: #### 5 8410-2 ####KENDRICK LABORATORYCLIA [id number] [address] MCV (RBC) [Entitic vol] 89.3 fL Normal 80.0-100.0 [facility] Comment on above: Order Comment: Speci men Type: BLOOD SPECIMENOrdering Facility: [facility] Address: [address] [place] [address] Performed By: #### 5 8410-2 ####KENDRICK LABORATORYCLIA [id number] [address] Nucleated RBC (Bld) [#/Vol] 10*3/uL Normal <0.01 [facility] Comment on above: Order Comment: Speci men Type: BLOOD SPECIMENOrdering Facility: [facility] Address: [address] [place] [address] Performed By: #### 5 8410-2 ####KENDRICK LABORATORYCLIA [id number] [address] Platelet mean volume (Bld) [Entitic vol] 10.5 fL Normal 9.0-12.7 [facility] Comment on above: Order Comment: Speci men Type: BLOOD SPECIMENOrdering Facility: [facility] Address: [address] [place] [address] Performed By: #### 5 8410-2 ####KENDRICK LABORATORYCLIA [id number] [address] Platelets (Bld) [#/Vol] 226 10*3/uL Normal 150-400 [facility] Comment on above: Order Comment: Speci men Type: BLOOD SPECIMENOrdering Facility: [facility] Address: [address] [place] [address] Performed By: #### 5 8410-2 ####KENDRICK LABORATORYCLIA [id number] [place] [address] [place] RBC (Bld) [#/Vol] 4.01 10*6/uL Normal 3.90-5.20 [facility] Comment on above: Order Comment: Speci men Type: BLOOD SPECIMENOrdering Facility: [facility] Address: [address] [place] [address] Performed By: #### 5 8410-2 ####KENDRICK LABORATORYCLIA [id number] [address] WBC (Bld) [#/Vol] 9.07 10*3/uL Normal 3.70-11.00 [facility] Comment on above: Order Comment: Speci men Type: BLOOD SPECIMENOrdering Facility: [facility] Address: [address] [place] [address] Performed By: #### 5 8410-2 ####KENDRICK LABORATORYCLIA [id number] [address] [place] Magnesium SerPl-mCncon 12-17 Magnesium [Mass/Vol] 1.8 mg/dL Normal 1.7-2.3 [facility] Comment on above: Order Comment: Speci men Type: BLOOD SPECIMENOrdering Facility: [facility] Address: [address] [place] [address] Performed By: #### 1 9123-9, 16656-4 ####KENDRICK LABORATORYCLIA [id number] [place] [address] [place] [facility] [place] Basic metabolic 2000 panelon 12-16-2024 Anion gap [Moles/Vol] 13 mmol/L Normal 8-15 [facility] Comment on above: Order Comment: Speci men Type: BLOOD SPECIMENOrdering Facility: [facility] Address: [address] [place] [address] Performed By: #### 2 4321-2, ####KENDRICK LABORATORYCLIA [id number] [place] [address] [place] Calcium [Mass/Vol] 9.5 mg/dL Normal 8.5-10.2 [facility] Comment on above: Order Comment: Speci men Type: BLOOD SPECIMENOrdering Facility: [facility] Address: [address] [place] [address] Performed By: #### 2 4321-2, ####KENDRICK LABORATORYCLIA [id number] [place] [address] [place] Chloride [Moles/Vol] 98 mmol/L Normal 98-107 [facility] Comment on above: Order Comment: Speci men Type: BLOOD SPECIMENOrdering Facility: [facility] Address: [address] [place] [address] Performed By: #### 2 4321-2, ####KENDRICK LABORATORYCLIA [id number] [place] [address] [place] CO2 [Moles/Vol] 24 mmol/L Normal 22-30 [facility] Comment on above: Order Comment: Speci men Type: BLOOD SPECIMENOrdering Facility: [facility] Address: [address] [place] [address] Performed By: #### 2 4321-2, ####KENDRICK LABORATORYCLIA [id number] [place] [id number] [place] Creatinine [Mass/Vol] 0.24 mg/dL Low 0.58-0.96 [facility] Comment on above: Order Comment: Speci men Type: BLOOD SPECIMENOrdering Facility: [facility] Address: [address] [place] [address] Performed By: #### 2 4321-2, ####KENDRICK LABORATORYCLIA [id number] [place] [address] [place] Creatinine and Glomerular filtration rate.predicted panel (S/P/Bld) 109 mL/min/1.73m??? Normal >=60 [facility] Comment on above: Order Comment: Helena bronson Type: BLOOD SPECIMENOrdering Facility: [facility] Address: [address] [place] [address] Result Comment: Sara mated Glomerular Filtration Rate [...] actual GFR. Performed By: #### 2 4321-2, ####[place] LABORATORYCLIA [id number] [place] [id number] [place] Glucose [Mass/Vol] 117 mg/dL High 74-99 [facility] Comment on above: Order Comment: Helena bronson Type: BLOOD SPECIMENOrdering Facility: [facility] Address: [address] [place] [address] Result Comment: The [place] Diabetes [employer] (ADA) provides guidance for cutoff [...] Standards of Medical Care in Diabetes 2016, [place] [employer]. Diabetes Care. 2016.39(Suppl 1). Performed By: #### 2 4321-2, 48968-3 ####KENDRICK LABORATORYCLIA [id number] [place] [address] [place] Potassium [Moles/Vol] 3.4 mmol/L Low 3.7-5.1 [facility] Comment on above: Order Comment: Speci men Type: BLOOD SPECIMENOrdering Facility: [facility] Address: [facility] [place] [address] Performed By: #### 2 4321-2, ####KENDRICK LABORATORYCLIA [id number] [address] STATES [facility] Sodium [Moles/Vol] 135 mmol/L Low 136-144 [facility] Comment on above: Order Comment: Speci men Type: BLOOD SPECIMENOrdering Facility: [facility] Address: [address] [place] [address] Performed By: #### 2 4321-2, ####KENDRICK LABORATORYCLIA [id number] [address] Urea nitrogen [Mass/Vol] 25 mg/dL High 7-21 [facility] Comment on above: Order Comment: Speci men Type: BLOOD SPECIMENOrdering Facility: [facility] Address: [address] [place] [address] Performed By: #### 2 4321-2, ####KENDRICK LABORATORYCLIA [id number] [address] CBC panel Auto (Bld)on 12-16 Erythrocyte distribution width (RBC) [Ratio] 12.5 % Normal 11.5-15.0 [facility] Comment on above: Order Comment: Speci men Type: BLOOD SPECIMENOrdering Facility: [facility] Address: [address] [place] [address] Performed By: #### 5 8410-2 ####KENDRICK LABORATORYCLIA [id number] [address] Hematocrit (Bld) [Volume fraction] 38.7 % Normal 36.0-46.0 [facility] Comment on above: Order Comment: Speci men Type: BLOOD SPECIMENOrdering Facility: [facility] Address: [address] [place] [address] Performed By: #### 5 8410-2 ####KENDRICK LABORATORYCLIA [id number] [address] [place] Hemoglobin (Bld) [Mass/Vol] 13.4 g/dL Normal 11.5-15.5 [facility] Comment on above: Order Comment: Speci men Type: BLOOD SPECIMENOrdering Facility: [facility] Address: [address] [place] [address] Performed By: #### 5 8410-2 ####KENDRICK LABORATORYCLIA [id number] [address] MCH (RBC) [Entitic mass] 30.7 pg Normal 26.0-34.0 [facility] Comment on above: Order Comment: Speci men Type: BLOOD SPECIMENOrdering Facility: [facility] Address: [address] [place] [address] Performed By: #### 5 8410-2 ####KENDRICK LABORATORYCLIA [id number] [address] MCHC (RBC) [Mass/Vol] 34.6 g/dL Normal 30.5-36.0 [facility] Comment on above: Order Comment: Speci men Type: BLOOD SPECIMENOrdering Facility: [facility] Address: [address] [place] [address] Performed By: #### 5 8410-2 ####KENDRICK LABORATORYCLIA [id number] [address] MCV (RBC) [Entitic vol] 88.8 fL Normal 80.0-100.0 [facility] Comment on above: Order Comment: Speci men Type: BLOOD SPECIMENOrdering Facility: [facility] Address: [address] [place] [address] Performed By: #### 5 8410-2 ####KENDRICK LABORATORYCLIA [id number] [address] Nucleated RBC (Bld) [#/Vol] 10*3/uL Normal <0.01 [facility] Comment on above: Order Comment: Speci men Type: BLOOD SPECIMENOrdering Facility: [facility] Address: [address] [place] [address] Performed By: #### 5 8410-2 ####KENDRICK LABORATORYCLIA [id number] [address] [place] Platelet mean volume (Bld) [Entitic vol] 10.2 fL Normal 9.0-12.7 [facility] Comment on above: Order Comment: Speci men Type: BLOOD SPECIMENOrdering Facility: [facility] Address: [address] [place] [address] Performed By: #### 5 8410-2 ####[facility] LABORATORYCLIA [id number] [place] [address] [place] Platelets (Bld) [#/Vol] 262 10*3/uL Normal 150-400 [facility] Comment on above: Order Comment: Speci men Type: BLOOD SPECIMENOrdering Facility: [facility] Address: [address] [place] [address] Performed By: #### 5 8410-2 ####[facility] LABORATORYCLIA [id number] [place] [address] [place] RBC (Bld) [#/Vol] 4.36 10*6/uL Normal 3.90-5.20 [facility] Comment on above: Order Comment: Speci men Type: BLOOD SPECIMENOrdering Facility: [facility] Address: [address] [place] [address] Performed By: #### 5 8410-2 ####KENDRICK LABORATORYCLIA [id number] [address] [place] WBC (Bld) [#/Vol] 10.28 10*3/uL Normal 3.70-11.00 [facility] Comment on above: Order Comment: Speci men Type: BLOOD SPECIMENOrdering Facility: [facility] Address: [address] [place] [address] Performed By: #### 5 8410-2 ####[facility] LABORATORYCLIA [id number] [address] [place] Magnesium SerPl-mCncon 12-16 Magnesium [Mass/Vol] 1.8 mg/dL Normal 1.7-2.3 [facility] Comment on above: Order Comment: Speci men Type: BLOOD SPECIMENOrdering Facility: [facility] Address: [address], [place] [address] Performed By: #### 2 4321-2, 87029-4 ####[facility] [id number] [place] [address] [facility] THERAPY NTon 12-16-2024 THERAPY NT HNO ID: [id number] Author: YEFRI POND OT/Safia Service: ? Author Type: Occupational Therapist Type: Therapy (PT/OT/Speech/Resp) Filed: 12/16/2024 12:16 Note Text: Summary: OT Evaluation Occupational Therapy Evaluation Summary SERVICE DATE: 12/16/2024 SERVICE TIME: 1114 to 1152 ROOM: [place] [address] OT 6 Clicks Score: 13 DISCHARGE RECOMMENDATIONS [...] Muscle Weakness (generalized) TREATMENT INTERVENTIONS Evaluation, Self Longterm Management (19688) Timed Code Jesse (more content not included)... Normal [facility] THERAPY NT HNO ID: [id number] Author: AVANI LAURA PT Service: Physical Therapy Author Type: Physical Therapist Type: Therapy (PT/OT/Speech/Resp) Filed: 12/16/2024 11:58 Note Text: Summary: PT evaluation Physical Therapy Evaluation Summary SERVICE DATE: 12/16/2024 SERVICE TIME: 1030 to 1112 ROOM: [id number] PT 6 Clicks Score: 8 DISCHARGE RECOMMENDATIONS [...] locked w/c and stand by assist at [facility]. frequent falls per chart. non ambulatory at [...] to SNF. She was discharged back to [facility] assisted living where PT saw her [...] With: Facility Care, Other: See Comment Comments: [facility] Assistance Available: 24-Hour Entry To Home: No [...] Evaluation, Therapeutic Activity (more content not included)... [facility] 12-15-2024 [facility] HNO ID: [id number] Author: ELIAS SOMERS CT Service: Radiology Author Type: Mold Stamper And Repairer Type: Allied Health Filed: 12/15/2024 13:29 Note [...] PATIENT PRESENTS WITH AN IMPLANTABLE OR ATTACHED DRAWING BOX TENDER: No RADIOLOGY DEPARTMENT: MR; Exam(s) Completed: Spine: Lumbar spine. Lavender Administered: No PERIPHERAL IV DATA: Not applicable SIGNED BY: Malika Madrid technology specialist December 15, 2024 1:29 PM [facility] Bacteria Ur Culton 5 Bacteria identified Cx Nom (U) CULTURE, URINE: Mixed microbiota, including predominantly: ORGANISM ID: 1 >=100,000 CFU/ml Aerococcus urinae No susceptibility testing done. [facility] Comment on above: Performed By: #### 6 30-4 #### [facility] CLIA [id number] [address] [place] [address] [place] MRI LUMBAR SPINE WO IVCONon 12-15-2024 MRI LUMBAR SPINE WO IVCON * * *Final Report* * * DATE OF EXAM: Dec 15 2024 1:54PM [facility] 0303 - MRI LUMBAR SPINE WO IVCON [...] and assume there are 5 lumbar-type vertebrae. Skid Strapper: RYAN Transcribe Date/Time: Dec 15 2024 2:11P Dictated by : APRIL MACK MD This examination was interpreted and the report reviewed and electronically signed by: APRIL MACK MD on Dec 15 2024 2:31PM EST [id number] [facility] THERAPY NTon 12-15-2024 THERAPY NT HNO ID: [id number] Author: JOLYNN PATE PT Service: Physical Therapy Author Type: Physical Therapist Type: Therapy (PT/OT/Speech/Resp) Filed: 12/15/2024 10:57 Note Text: Summary: PT missed visit PHYSICAL THERAPY MISSED VISIT SERVICE DATE: 12/15/2024 SERVICE TIME: 1055 ROOM: [place] [address] Patient not seen due to Clinical Appropriateness. Pt awaiting MRI of lumbar spine and delivery of LSO, will reattempt once complete and as schedule allows. SIGNATURE: Jolynn Pate, PT PATIENT NAME: Tena Cannon DATE: December 15, 2024 TIME: 10:56 AM [facility] THERAPY NT HNO ID: [id number] Author: YEFRI POND, OT/L Service: ? Author Type: Occupational Therapist Type: Therapy (PT/OT/Speech/Resp) Filed: 12/15/2024 10:27 Note Text: Summary: OT missed visit OCCUPATIONAL THERAPY MISSED VISIT SERVICE DATE: 12/15/2024 SERVICE TIME: 0744 ROOM: [place] [address] Patient not seen due to Clinical Appropriateness. Pt awaiting MRI of lumbar spine. Will re-attempt as able/appropriate. 10:26 addendum: Pt also awaiting delivery of LSO brace. Will follow for MRI results and re-attempt once brace is obtained for safe mobilization and participation in OOB activities. SIGNATURE: MILANA Bennett PATIENT NAME: Tena Cannon DATE: December 15, 2024 TIME: 7:44 AM Normal [facility] Urinalysis complete panel (U )on 12-14-2024 Bacteria LM.HPF (Urine sed) [#/Area] Many Abnormal None Seen [facility] Comment on above: Order Comment: Speci men Type: URINE SPECIMENOrdering Facility: [facility] Address: [address] [place] [address] Performed By: #### 2 4356-8 ####[facility] LABORATORYCLIA [id number] [place] [address] [place] Bilirubin Ql (U) 2+ Abnormal Negative [facility] Comment on above: Order Comment: Speci men Type: URINE SPECIMENOrdering Facility: [facility] Address: [address] [place] [address] Result Comment: Sugg est correlation with clinical findings and serum bilirubin if clinically indicated. Performed By: #### 2 4356-8 ####KENDRICK LABORATORYCLIA [id number] [address] [place] Clarity (Unsp spec) Cloudy Abnormal Clear [facility] Comment on above: Order Comment: Speci men Type: URINE SPECIMENOrdering Facility: [facility] Address: [address] [place] [address] Performed By: #### 2 4356-8 ####KENDRICK LABORATORYCLIA [id number] [address] [place] Color (U) Yellow Normal Yellow [facility] Comment on above: Order Comment: Speci men Type: URINE SPECIMENOrdering Facility: [facility] Address: [address] [place] [address] Performed By: #### 2 4356-8 ####KENDRICK LABORATORYCLIA [id number] [address] [place] Glucose Test strip (U) [Mass/Vol] Negative Normal Negative [facility] Comment on above: Order Comment: Speci men Type: URINE SPECIMENOrdering Facility: [facility] Address: [address] [place] [address] Performed By: #### 2 4356-8 ####KENDRICK LABORATORYCLIA [id number] [address] [place] Hemoglobin Ql (U) Trace Abnormal Negative [facility] Comment on above: Order Comment: Speci men Type: URINE SPECIMENOrdering Facility: [facility] Address: [address] [place] [address] Performed By: #### 2 4356-8 ####KENDRICK LABORATORYCLIA [id number] [address] Ketones Ql (U) 3+ Abnormal Negative [facility] Comment on above: Order Comment: Speci men Type: URINE SPECIMENOrdering Facility: [facility] Address: [address] [place] [address] Performed By: #### 2 4356-8 ####KENDRICK LABORATORYCLIA [id number] [address] [place] Leukocyte esterase Test strip Ql (U) 2+ Abnormal Negative [facility] Comment on above: Order Comment: Speci men Type: URINE SPECIMENOrdering Facility: [facility] Address: [address] [place] [address] Performed By: #### 2 4356-8 ####KENDRICK LABORATORYCLIA [id number] [place] [address] [place] Nitrite Ql (U) Negative Normal Negative [facility] Comment on above: Order Comment: Speci men Type: URINE SPECIMENOrdering Facility: [facility] Address: [address] [place] [address] Performed By: #### 2 4356-8 ####KENDRICK LABORATORYCLIA [id number] [place] [address] [place] pH (U) 7.5 [pH] Normal 5.0-8.0 [facility] Comment on above: Order Comment: Speci men Type: URINE SPECIMENOrdering Facility: [facility] Address: [address] [place] [address] Performed By: #### 2 4356-8 ####KENDRICK LABORATORYCLIA [id number] [place] [address] [place] Protein (U) [Mass/Vol] 2+ Abnormal Negative [facility] Comment on above: Order Comment: Speci men Type: URINE SPECIMENOrdering Facility: [facility] Address: [address] [place] [address] Performed By: #### 2 4356-8 ####KENDRICK LABORATORYCLIA [id number] [place] [address] [place] RBC LM.HPF (Urine sed) [#/Area] 0-3 /HPF Normal 0-3 /HPF [facility] Comment on above: Order Comment: Speci men Type: URINE SPECIMENOrdering Facility: [facility] Address: [address] [place] [address] Performed By: #### 2 4356-8 ####KENDRICK LABORATORYCLIA [id number] [place] [address] [place] Specific gravity (U) [Rel density] 1.010 Normal 1.005-1.030 [facility] Comment on above: Order Comment: Speci men Type: URINE SPECIMENOrdering Facility: [facility] Address: [address] [place] [address] Performed By: #### 2 4356-8 ####KENDRICK LABORATORYCLIA [id number] [address] Triple phosphate crystals LM.HPF (Urine sed) [#/Area] Moderate Abnormal None Seen [facility] Comment on above: Order Comment: Speci men Type: URINE SPECIMENOrdering Facility: [facility] Address: [address] [place] [address] Performed By: #### 2 4356-8 ####KENDRICK LABORATORYCLIA [id number] [address] Urobilinogen Ql (U) 1.0 EU/dL Normal 0.2-1.0 EU/dL [facility] Comment on above: Order Comment: Speci men Type: URINE SPECIMENOrdering Facility: [facility] Address: [address] [place] [address] Performed By: #### 2 4356-8 ####KENDRICK LABORATORYCLIA [id number] [address] WBC LM.HPF (Urine sed) [#/Area] 6-10 /HPF Abnormal 0-5 /HPF [facility] Comment on above: Order Comment: Speci men Type: URINE SPECIMENOrdering Facility: [facility] Address: [address] [place] [address] Performed By: #### 2 4356-8 ####KENDRICK LABORATORYCLIA [id number] [address] CBC panel Auto (Bld)on 12-13 Erythrocyte distribution width (RBC) [Ratio] 13.0 % Normal 11.5-15.0 [facility] Comment on above: Order Comment: Speci men Type: BLOOD SPECIMENOrdering Facility: [facility] Address: [address] [place] [address] Performed By: #### 5 8410-2 ####KENDRICK LABORATORYCLIA [id number] [address] Hematocrit (Bld) [Volume fraction] 41.1 % Normal 36.0-46.0 [facility] Comment on above: Order Comment: Speci men Type: BLOOD SPECIMENOrdering Facility: [facility] Address: [address] [place] [address] Performed By: #### 5 8410-2 ####KENDRICK LABORATORYCLIA [id number] [address] OF [facility] Hemoglobin (Bld) [Mass/Vol] 13.8 g/dL Normal 11.5-15.5 [facility] Comment on above: Order Comment: Speci men Type: BLOOD SPECIMENOrdering Facility: [facility] Address: [address] [place] [address] Performed By: #### 5 8410-2 ####KENDRICK LABORATORYCLIA [id number] [address] MCH (RBC) [Entitic mass] 31.4 pg Normal 26.0-34.0 [facility] Comment on above: Order Comment: Speci men Type: BLOOD SPECIMENOrdering Facility: [facility] Address: [address] [place] [address] Performed By: #### 5 8410-2 ####KENDRICK LABORATORYCLIA [id number] [address] MCHC (RBC) [Mass/Vol] 33.6 g/dL Normal 30.5-36.0 [facility] Comment on above: Order Comment: Speci men Type: BLOOD SPECIMENOrdering Facility: [facility] Address: [address] [place] [address] Performed By: #### 5 8410-2 ####KENDRICK LABORATORYCLIA [id number] [address] MCV (RBC) [Entitic vol] 93.6 fL Normal 80.0-100.0 [facility] Comment on above: Order Comment: Speci men Type: BLOOD SPECIMENOrdering Facility: [facility] Address: [address] [place] [address] Performed By: #### 5 8410-2 ####KENDRICK LABORATORYCLIA [id number] [place] [id number] [place] Nucleated RBC (Bld) [#/Vol] 10*3/uL Normal <0.01 [facility] Comment on above: Order Comment: Speci men Type: BLOOD SPECIMENOrdering Facility: [facility] Address: [address] [place] [address] Performed By: #### 5 8410-2 ####KENDRICK LABORATORYCLIA [id number] [place] [address] [place] Platelet mean volume (Bld) [Entitic vol] 11.1 fL Normal 9.0-12.7 [facility] Comment on above: Order Comment: Speci men Type: BLOOD SPECIMENOrdering Facility: [facility] Address: [address] [place] [address] Performed By: #### 5 8410-2 ####KENDRICK LABORATORYCLIA [id number] [place] [address] [place] Platelets (Bld) [#/Vol] 238 10*3/uL Normal 150-400 [facility] Comment on above: Order Comment: Speci men Type: BLOOD SPECIMENOrdering Facility: [facility] Address: [address] [place] [address] Performed By: #### 5 8410-2 ####KENDRICK LABORATORYCLIA [id number] [place] [address] [place] RBC (Bld) [#/Vol] 4.39 10*6/uL Normal 3.90-5.20 [facility] Comment on above: Order Comment: Speci men Type: BLOOD SPECIMENOrdering Facility: [facility] Address: [address] [place] [address] Performed By: #### 5 8410-2 ####KENDRICK LABORATORYCLIA [id number] [address] [place] WBC (Bld) [#/Vol] 10.47 10*3/uL Normal 3.70-11.00 [facility] Comment on above: Order Comment: Speci men Type: BLOOD SPECIMENOrdering Facility: [facility] Address: [address] [place] [address] Performed By: #### 5 8410-2 ####KENDRICK LABORATORYCLIA [id number] [place] [address] [place] [facility] Comprehensive metabolic 2000 panelon 12-13-2024 Albumin [Mass/Vol] 3.9 g/dL Normal 3.9-4.9 [facility] Comment on above: Order Comment: Speci men Type: BLOOD SPECIMENOrdering Facility: [facility] Address: [address] [place] [address] Performed By: #### 2 4323-8 ####KENDRICK LABORATORYCLIA [id number] [address] [place] ALP [Catalytic activity/Vol] 74 U/L Normal 34-123 [facility] Comment on above: Order Comment: Speci men Type: BLOOD SPECIMENOrdering Facility: [facility] Address: [address] [place] [address] Performed By: #### 2 4323-8 ####KENDRICK LABORATORYCLIA [id number] [address] STATES [facility] ALT [Catalytic activity/Vol] 18 U/L Normal 7-38 [facility] Comment on above: Order Comment: Speci men Type: BLOOD SPECIMENOrdering Facility: [facility] Address: [address] [place] [address] Performed By: #### 2 4323-8 ####KENDRICK LABORATORYCLIA [id number] [place] [address] [place] Anion gap [Moles/Vol] 11 mmol/L Normal 8-15 [facility] Comment on above: Order Comment: Speci men Type: BLOOD SPECIMENOrdering Facility: [facility] Address: [address] [place] [address] Performed By: #### 2 4323-8 ####KENDRICK LABORATORYCLIA [id number] [place] [address] [place] AST [Catalytic activity/Vol] 25 U/L Normal 13-35 [facility] Comment on above: Order Comment: Speci men Type: BLOOD SPECIMENOrdering Facility: [facility] Address: [address] [place] [address] Performed By: #### 2 4323-8 ####KENDRICK LABORATORYCLIA [id number] [place] [address] [place] Bilirubin [Mass/Vol] 0.7 mg/dL Normal 0.2-1.3 [facility] Comment on above: Order Comment: Speci men Type: BLOOD SPECIMENOrdering Facility: [facility] Address: [address] [place] [address] Performed By: #### 2 4323-8 ####KENDRICK LABORATORYCLIA [id number] [place] [address] [place] Calcium [Mass/Vol] 10.6 mg/dL High 8.5-10.2 [facility] Comment on above: Order Comment: Speci men Type: BLOOD SPECIMENOrdering Facility: [facility] Address: [address] [place] [address] Performed By: #### 2 4323-8 ####KENDRICK LABORATORYCLIA [id number] [place] [address] [place] Chloride [Moles/Vol] 99 mmol/L Normal 98-107 [facility] Comment on above: Order Comment: Speci men Type: BLOOD SPECIMENOrdering Facility: [facility] Address: [address] [place] [address] Performed By: #### 2 4323-8 ####KENDRICK LABORATORYCLIA [id number] [place] [address] [place] CO2 [Moles/Vol] 29 mmol/L Normal 22-30 [facility] Comment on above: Order Comment: Speci men Type: BLOOD SPECIMENOrdering Facility: [facility] Address: [address] [place] [address] Performed By: #### 2 4323-8 ####KENDRICK LABORATORYCLIA [id number] [place] [address] [place] Creatinine [Mass/Vol] 0.33 mg/dL Low 0.58-0.96 [facility] Comment on above: Order Comment: Speci men Type: BLOOD SPECIMENOrdering Facility: [facility] Address: [address] [place] [address] Performed By: #### 2 4323-8 ####[facility] LABORATORYCLIA [id number] [place] [id number] [place] Creatinine and Glomerular filtration rate.predicted panel (S/P/Bld) 101 mL/min/1.73m??? Normal >=60 [facility] Comment on above: Order Comment: Helena bronson Type: BLOOD SPECIMENOrdering Facility: [facility] Address: [address] [place] [address] Result Comment: Sara mated Glomerular Filtration Rate [...] Performed By: #### 2 4323-8 ####KENDRICK LABORATORYCLIA [id number] [place] [id number] [place] Glucose [Mass/Vol] 101 mg/dL High 74-99 [facility] Comment on above: Order Comment: Helena bronson Type: BLOOD SPECIMENOrdering Facility: [facility] Address: [address] [place] [address] Result Comment: The [place] [employer] (ADA) provides guidance for cutoff [...] Standards of Medical Care in Diabetes 2016, [place] [employer]. Diabetes Care. 2016.39(Suppl 1). Performed By: #### 2 4323-8 ####[facility] LABORATORYCLIA [id number] [place] [address] [place] Potassium [Moles/Vol] 3.8 mmol/L Normal 3.7-5.1 [facility] Comment on above: Order Comment: Speci men Type: BLOOD SPECIMENOrdering Facility: [facility] [facility] Address: [address] [place] [address] Performed By: #### 2 4323-8 ####KENDRICK LABORATORYCLIA [id number] [place] [address] [place] Protein [Mass/Vol] 7.0 g/dL Normal 6.3-8.0 [facility] Comment on above: Order Comment: Speci men Type: BLOOD SPECIMENOrdering Facility: [facility] Address: [address] [place] [address] Performed By: #### 2 4323-8 ####KENDRICK LABORATORYCLIA [id number] [address] [place] Sodium [Moles/Vol] 139 mmol/L Normal 136-144 [facility] Comment on above: Order Comment: Speci men Type: BLOOD SPECIMENOrdering Facility: [facility] Address: [address] [place] [address] Performed By: #### 2 4323-8 ####KENDRICK LABORATORYCLIA [id number] [place] [address] [place] Urea nitrogen [Mass/Vol] 41 mg/dL High 7-21 [facility] Comment on above: Order Comment: Speci men Type: BLOOD SPECIMENOrdering Facility: [facility] Address: [address] [place] [address] Performed By: #### 2 4323-8 ####KENDRICK LABORATORYCLIA [id number] [place] [address] [place] Basic metabolic 2000 panelon 12-12-2024 Anion gap [Moles/Vol] 15 mmol/L Normal 8-15 [facility] Comment on above: Order Comment: Speci men Type: BLOOD SPECIMENOrdering Facility: [facility] Address: [address] [place] [address] Performed By: #### 2 4321-2 ####KENDRICK LABORATORYCLIA [id number] [place] [id number] [place] Calcium [Mass/Vol] 10.8 mg/dL High 8.5-10.2 [facility] Comment on above: Order Comment: Speci men Type: BLOOD SPECIMENOrdering Facility: [facility] Address: [address] [place] [address] Performed By: #### 2 4321-2 ####KENDRICK LABORATORYCLIA [id number] [place] [address] [place] Chloride [Moles/Vol] 98 mmol/L Normal 98-107 [facility] Comment on above: Order Comment: Speci men Type: BLOOD SPECIMENOrdering Facility: [facility] Address: [address] [place] [address] Performed By: #### 2 4321-2 ####KENDRICK LABORATORYCLIA [id number] [place] [address] [place] CO2 [Moles/Vol] 26 mmol/L Normal 22-30 [facility] Comment on above: Order Comment: Speci men Type: BLOOD SPECIMENOrdering Facility: [facility] Address: [address] [place] [address] Performed By: #### 2 4321-2 ####KENDRICK LABORATORYCLIA [id number] [place] [address] [place] Creatinine [Mass/Vol] 0.30 mg/dL Low 0.58-0.96 [facility] Comment on above: Order Comment: Speci men Type: BLOOD SPECIMENOrdering Facility: [facility] Address: [address] [place] [address] Performed By: #### 2 4321-2 ####KENDRICK LABORATORYCLIA [id number] [address] [place] Creatinine and Glomerular filtration rate.predicted panel (S/P/Bld) 103 mL/min/1.73m??? Normal >=60 [facility] Comment on above: Order Comment: Speci men Type: BLOOD SPECIMENOrdering Facility: [facility] Address: [address] [place] [address] Result Comment: Sara mated Glomerular Filtration Rate [...] Performed By: #### 2 4321-2 ####KENDRICK LABORATORYCLIA [id number] [place] [address] [place] Glucose [Mass/Vol] 126 mg/dL High 74-99 [facility] Comment on above: Order Comment: Helena bronson Type: BLOOD SPECIMENOrdering Facility: [facility] Address: [address] [place] [id number] Result Comment: The [place] [employer] Association (ADA) provides guidance for cutoff [...] Standards of Medical Care in Diabetes 2016, [place] [employer]. Diabetes Care. 2016.39(Suppl 1). Performed By: #### 2 4321-2 ####KENDRICK LABORATORYCLIA [id number] [place] [address] [place] Potassium [Moles/Vol] 3.4 mmol/L Low 3.7-5.1 [facility] Comment on above: Order Comment: Helena bronson Type: BLOOD SPECIMENOrdering Facility: [facility] Address: [address] [place] [address] Performed By: #### 2 4321-2 ####KENDRICK LABORATORYCLIA [id number] [place] [id number] [place] Sodium [Moles/Vol] 139 mmol/L Normal 136-144 [facility] Comment on above: Order Comment: Helena bronson Type: BLOOD SPECIMENOrdering Facility: [facility] Address: [address] [place] [address] Performed By: #### 2 4321-2 ####KENDRICK LABORATORYCLIA [id number] [address] STATES [facility] Urea nitrogen [Mass/Vol] 37 mg/dL High 02-20 [facility] Comment on above: Order Comment: Speci men Type: BLOOD SPECIMENOrdering Facility: [facility] Address: [address] [place] [address] Performed By: #### 2 4321-2 ####KENDRICK LABORATORYCLIA [id number] [address] [place] CBC W Auto Differential pane l (Bld)on 12-12-2024 Basophils (Bld) [#/Vol] 10*3/uL Normal <0.11 [facility] Comment on above: Order Comment: Speci men Type: BLOOD SPECIMENOrdering Facility: [facility] Address: [address] [place] [address] Performed By: #### 5 7021-8 ####KENDRICK LABORATORYCLIA [id number] [address] [place] Basophils/100 WBC (Bld) 0.1 % Normal [facility] Comment on above: Order Comment: Speci men Type: BLOOD SPECIMENOrdering Facility: [facility] Address: [address] [place] [address] Performed By: #### 5 7021-8 ####KENDRICK LABORATORYCLIA [id number] [address] Differential cell count method Nom (Bld) Auto Normal [facility] Comment on above: Order Comment: Speci men Type: BLOOD SPECIMENOrdering Facility: [facility] Address: [address] [place] [address] Performed By: #### 5 7021-8 ####KENDRICK LABORATORYCLIA [id number] [place] [address] [place] Eosinophils (Bld) [#/Vol] 10*3/uL Normal <0.46 [facility] Comment on above: Order Comment: Speci men Type: BLOOD SPECIMENOrdering Facility: [facility] Address: [address] [place] [address] Performed By: #### 5 7021-8 ####KENDRICK LABORATORYCLIA [id number] [address] Eosinophils/100 WBC (Bld) 0.0 % Normal [facility] Comment on above: Order Comment: Speci men Type: BLOOD SPECIMENOrdering Facility: [facility] Address: [address] [place] [address] Performed By: #### 5 7021-8 ####KENDRICK LABORATORYCLIA [id number] [address] [place] Erythrocyte distribution width (RBC) [Ratio] 12.7 % Normal 11.5-15.0 [facility] Comment on above: Order Comment: Speci men Type: BLOOD SPECIMENOrdering Facility: [facility] Address: [address] [place] [address] Performed By: #### 5 7021-8 ####KENDRICK LABORATORYCLIA [id number] [address] [place] Hematocrit (Bld) [Volume fraction] 40.3 % Normal 36.0-46.0 [facility] Comment on above: Order Comment: Speci men Type: BLOOD SPECIMENOrdering Facility: [facility] Address: [address] [place] [address] Performed By: #### 5 7021-8 ####KENDRICK LABORATORYCLIA [id number] [address] [place] Hemoglobin (Bld) [Mass/Vol] 13.9 g/dL Normal 11.5-15.5 [facility] Comment on above: Order Comment: Speci men Type: BLOOD SPECIMENOrdering Facility: [facility] Address: [address] [place] [address] Performed By: #### 5 7021-8 ####KENDRICK LABORATORYCLIA [id number] [address] Immature granulocytes (Bld) [#/Vol] 0.06 10*3/uL Normal <0.10 [facility] Comment on above: Order Comment: Speci men Type: BLOOD SPECIMENOrdering Facility: [facility] Address: [address] [place] [address] Performed By: #### 5 7021-8 ####KENDRICK LABORATORYCLIA [id number] [address] Immature granulocytes/100 WBC (Bld) 0.5 % Normal [facility] Comment on above: Order Comment: Speci men Type: BLOOD SPECIMENOrdering Facility: [facility] Address: [address] [place] [address] Performed By: #### 5 7021-8 ####KENDRICK LABORATORYCLIA [id number] [place] [address] [place] Lymphocytes (Bld) [#/Vol] 0.71 10*3/uL Low 1.00-4.00 [facility] Comment on above: Order Comment: Speci men Type: BLOOD SPECIMENOrdering Facility: [facility] Address: [address] [place] [address] Performed By: #### 5 7021-8 ####KENDRICK LABORATORYCLIA [id number] [address] Lymphocytes/100 WBC (Bld) 5.7 % Normal [facility] Comment on above: Order Comment: Speci men Type: BLOOD SPECIMENOrdering Facility: [facility] Address: [address] [place] [address] Performed By: #### 5 7021-8 ####KENDRICK LABORATORYCLIA [id number] [address] MCH (RBC) [Entitic mass] 31.7 pg Normal 26.0-34.0 [facility] Comment on above: Order Comment: Speci men Type: BLOOD SPECIMENOrdering Facility: [facility] Address: [address] [place] [address] Performed By: #### 5 7021-8 ####KENDRICK LABORATORYCLIA [id number] [address] MCHC (RBC) [Mass/Vol] 34.5 g/dL Normal 30.5-36.0 [facility] Comment on above: Order Comment: Speci men Type: BLOOD SPECIMENOrdering Facility: [facility] Address: [address] [place] [address] Performed By: #### 5 7021-8 ####KENDRICK LABORATORYCLIA [id number] [place] [address] [place] MCV (RBC) [Entitic vol] 91.8 fL Normal 80.0-100.0 [facility] Comment on above: Order Comment: Speci men Type: BLOOD SPECIMENOrdering Facility: [facility] Address: [address] [place] [address] Performed By: #### 5 7021-8 ####KENDRICK LABORATORYCLIA [id number] [place] [address] [place] Monocytes (Bld) [#/Vol] 1.20 10*3/uL High <0.87 [facility] Comment on above: Order Comment: Speci men Type: BLOOD SPECIMENOrdering Facility: [facility] Address: [address] [place] [address] Performed By: #### 5 7021-8 ####KENDRICK LABORATORYCLIA [id number] [address] [place] Monocytes/100 WBC (Bld) 9.6 % Normal [facility] Comment on above: Order Comment: Speci men Type: BLOOD SPECIMENOrdering Facility: [facility] Address: [address] [place] [address] Performed By: #### 5 7021-8 ####KENDRICK LABORATORYCLIA [id number] [place] [address] [place] Neutrophils (Bld) [#/Vol] 10.52 10*3/uL High 1.45-7.50 [facility] Comment on above: Order Comment: Speci men Type: BLOOD SPECIMENOrdering Facility: [facility] Address: [address] [place] [address] Performed By: #### 5 7021-8 ####KENDRICK LABORATORYCLIA [id number] [place] [address] [place] Neutrophils/100 WBC (Bld) 84.1 % Normal [facility] Comment on above: Order Comment: Speci men Type: BLOOD SPECIMENOrdering Facility: [facility] Address: [address] [place] [address] Performed By: #### 5 7021-8 ####KENDRICK LABORATORYCLIA [id number] [place] [address] [place] Nucleated RBC (Bld) [#/Vol] 10*3/uL Normal <0.01 [facility] Comment on above: Order Comment: Speci men Type: BLOOD SPECIMENOrdering Facility: [facility] Address: [address] [place] [address] Performed By: #### 5 7021-8 ####KENDRICK LABORATORYCLIA [id number] [place] [address] [place] Nucleated RBC/100 WBC (Bld) [Ratio] 0.0 /100 WBC Normal [facility] Comment on above: Order Comment: Speci men Type: BLOOD SPECIMENOrdering Facility: [facility] Address: [address] [place] [address] Performed By: #### 5 7021-8 ####KENDRICK LABORATORYCLIA [id number] [place] [address] [place] Platelet mean volume (Bld) [Entitic vol] 10.5 fL Normal 9.0-12.7 [facility] Comment on above: Order Comment: Speci men Type: BLOOD SPECIMENOrdering Facility: [facility] Address: [address] [place] [address] Performed By: #### 5 7021-8 ####KENDRICK LABORATORYCLIA [id number] [place] [address] [place] Platelets (Bld) [#/Vol] 239 10*3/uL Normal 150-400 [facility] Comment on above: Order Comment: Speci men Type: BLOOD SPECIMENOrdering Facility: [facility] Address: [address] [place] [address] Performed By: #### 5 7021-8 ####KENDRICK LABORATORYCLIA [id number] [place] [address] [place] RBC (Bld) [#/Vol] 4.39 10*6/uL Normal 3.90-5.20 [facility] Comment on above: Order Comment: Speckristi bronson Type: BLOOD SPECIMENOrdering Facility: [facility] Address: [address] [place] [address] Performed By: #### 5 7021-8 ####[place] LABORATORYCLIA [id number] [place] [id number] [facility] WBC (Bld) [#/Vol] 12.50 10*3/uL High 3.70-11.00 [facility] Comment on above: Order Comment: Speckristi men Type: BLOOD SPECIMENOrdering Facility: [facility] Address: [address] [place] [address] Performed By: #### 5 7021-8 ####[facility]WB[facility] LABORATORYCLIA [id number] [place] [id number] [facility] ED NOTEon 12-12-2024 ED NOTE HNO ID: [id number] Author: JESSENIA PARIKH RN Service: ? Author Type: Registered Nurse Type: ED Notes Filed: 12/12/2024 11:39 Note Text: Bed: ED-19 Expected date: Expected time: Means of arrival: [facility]/EMS Comments: 84 F Needs SNF placement Fell 8 days ago Normal [facility] ED PROV NOTEon 12-12-2024 ED PROV NOTE HNO ID: [id number] Author: TARA ENCARNACION MD Service: Emergency Medicine [...] to SNF. She was discharged back to [facility] assisted living where PT saw her [...] for couple days. She went back to [facility] [place] to her assisted living facility at [facility]. She had physical therapy at today. She [...] vessels break" Novocain [Procaine * Intolerance headaches Vanderbilt-3 Fish Oil [O* Intolerance bleeding in eye [...] back pa (more content not included)... Normal [facility] HISTORY PHYSICALon HISTORY PHYSICAL HNO ID: [id number] Author: GEORGINA RICHARDSON MD Service: Hospital Medicine Author Type: Physician Type: H&P Filed: 12/12/2024 22:35 Note Text: DEPARTMENT OF HOSPITAL MEDICINE HISTORY AND PHYSICAL EXAM SERVICE DATE: 12/12/2024 SERVICE TIME: 4:27 PM Primary Care Physician: Sahra Guy MD NIGHT AND WEEKEND COVERAGE: [place] COVERAGE: Days: [phone], please page attending physician. Nights: [phone], please page [facility] Night coverage pager [phone]. 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 Patient is accompanied by her daughter. Per daughter, patient has had numerous falls since August of 2024. Most recent fall was on 12/04/2024. She was admitted to [facility]. At this time, CT L-spine and abdominal [...] take care of her. Daughter has called [facility] - transitional care have beds available. Last BM on Thursday12/04/2024. Patient is not eating well because of nausea. She also states that she has a right sided hernia that causes intermittent pain but none right now. She denies chest pain, SOB, dizziness, abdominal pain/distension - other negative ROS found below. The history is provided by the patient and a relative. No language tutor was used. PAST MEDICAL HISTORY Diagnosis Date [...] vessels break" Novocain [Procaine * Intolerance headaches Vanderbilt-3 Fish Oil [O* Intolerance bleeding in eye Advil [Ibuprofen] Intolerance Makes capillary blood vessels bread" Asa [Salicylates] Intolerance Makes capillary blood vessels break" Revi (more content not included)... Normal [facility] CBC panel Auto (Bld)on 12-10 Erythrocyte distribution width (RBC) [Ratio] 12.4 % Normal 11.5-15.0 [facility] Comment on above: Order Comment: Speci men Type: BLOOD SPECIMENOrdering Facility: [facility] Address: [address] [place] [address] Performed By: #### 5 8410-2 ####[place] LABORATORYCLIA [id number] [place] [address] [place] Hematocrit (Bld) [Volume fraction] 40.0 % Normal 36.0-46.0 [facility] Comment on above: Order Comment: Speci men Type: BLOOD SPECIMENOrdering Facility: [facility] Address: [address] [place] [address] Performed By: #### 5 8410-2 ####KENDRICK LABORATORYCLIA [id number] [address] Hemoglobin (Bld) [Mass/Vol] 13.8 g/dL Normal 11.5-15.5 [facility] Comment on above: Order Comment: Speci men Type: BLOOD SPECIMENOrdering Facility: [facility] Address: [address] [place] [address] Performed By: #### 5 8410-2 ####KENDRICK LABORATORYCLIA [id number] [address] MCH (RBC) [Entitic mass] 31.7 pg Normal 26.0-34.0 [facility] Comment on above: Order Comment: Speci men Type: BLOOD SPECIMENOrdering Facility: [facility] Address: [address] [place] [address] Performed By: #### 5 8410-2 ####KENDRICK LABORATORYCLIA [id number] [address] MCHC (RBC) [Mass/Vol] 34.5 g/dL Normal 30.5-36.0 [facility] Comment on above: Order Comment: Speci men Type: BLOOD SPECIMENOrdering Facility: [facility] Address: [address] [place] [address] Performed By: #### 5 8410-2 ####KENDRICK LABORATORYCLIA [id number] [address] MCV (RBC) [Entitic vol] 91.7 fL Normal 80.0-100.0 [facility] Comment on above: Order Comment: Speci men Type: BLOOD SPECIMENOrdering Facility: [facility] Address: [address] [place] [address] Performed By: #### 5 8410-2 ####KENDRICK LABORATORYCLIA [id number] [address] Nucleated RBC (Bld) [#/Vol] 10*3/uL Normal <0.01 [facility] Comment on above: Order Comment: Speci men Type: BLOOD SPECIMENOrdering Facility: [facility] Address: [address] [place] [address] Performed By: #### 5 8410-2 ####KENDRICK LABORATORYCLIA [id number] [address] [place] Platelet mean volume (Bld) [Entitic vol] 10.9 fL Normal 9.0-12.7 [facility] Comment on above: Order Comment: Speci men Type: BLOOD SPECIMENOrdering Facility: [facility] Address: [address] [place] [address] Performed By: #### 5 8410-2 ####KENDRICK LABORATORYCLIA [id number] [address] [place] Platelets (Bld) [#/Vol] 205 10*3/uL Normal 150-400 [facility] Comment on above: Order Comment: Speci men Type: BLOOD SPECIMENOrdering Facility: [facility] Address: [address] [place] [address] Performed By: #### 5 8410-2 ####KENDRICK LABORATORYCLIA [id number] [place] [address] [place] RBC (Bld) [#/Vol] 4.36 10*6/uL Normal 3.90-5.20 [facility] Comment on above: Order Comment: Speci men Type: BLOOD SPECIMENOrdering Facility: [facility] Address: [address] [place] [address] Performed By: #### 5 8410-2 ####KENDRICK LABORATORYCLIA [id number] [place] [address] [place] WBC (Bld) [#/Vol] 7.99 10*3/uL Normal 3.70-11.00 [facility] Comment on above: Order Comment: Speci men Type: BLOOD SPECIMENOrdering Facility: [facility] Address: [address] [place] [address] Performed By: #### 5 8410-2 ####KENDRICK LABORATORYCLIA [id number] [place] [address] [place] CNCOon 12-10-2024 CNCO Letter Text Normal [facility] CNDSon 12-10-2024 CNDS HNO ID: [id number] Author: DIANE WILSON MD Service: Hospital Medicine [...] HOSPITALIZATION: Neurology: Treatment Team: Primary Service: , [facility] REASON FOR HOSPITALIZATION: weakness, back pain FINAL DIAGNOSIS: sciatica Active Hospital Problems Diagnosis POA Frequent falls Yes Hypertension Unknown Fall at residential Yes BMI 37.0-37.9, adult Yes Dysphagia Yes [...] vessels break" Novocain [Procaine * Intolerance headaches Vanderbilt-3 Fish Oil [O* Intolerance bleeding in eye [...] TAKE 1 (more content not included)... Normal [facility] Comprehensive metabolic 2000 panelon 12-10-2024 Albumin [Mass/Vol] 3.7 g/dL Low 3.9-4.9 [facility] Comment on above: Order Comment: Speci men Type: BLOOD SPECIMENOrdering Facility: [facility] Address: [address] [place] [address] Performed By: #### 2 4323-8 ####KENDRICK LABORATORYCLIA [id number] [address] STATES [facility] ALP [Catalytic activity/Vol] 69 U/L Normal 34-123 [facility] Comment on above: Order Comment: Speci men Type: BLOOD SPECIMENOrdering Facility: [facility] Address: [address] [place] [address] Performed By: #### 2 4323-8 ####[place] LABORATORYCLIA [id number] [address] [place] [facility] ALT [Catalytic activity/Vol] 12 U/L Normal 7-38 [facility] Comment on above: Order Comment: Speci men Type: BLOOD SPECIMENOrdering Facility: [facility] Address: [address] [place] [address] Performed By: #### 2 4323-8 ####KENDRICK LABORATORYCLIA [id number] [place] [address] [place] Anion gap [Moles/Vol] 10 mmol/L Normal 8-15 [facility] Comment on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 LABORATORYCLIA [id number] [address] [place] MCHC (RBC) [Mass/Vol] 34.1 g/dL Normal 30.5-36.0 [facility] Comment on above: Order Comment: Speci men Type: BLOOD SPECIMENOrdering Facility: [facility] Address: [address] [place] [address] Performed By: #### 5 7021-8 ####KENDRICK LABORATORYCLIA [id number] [address] MCV (RBC) [Entitic vol] 92.8 fL Normal 80.0-100.0 [facility] Comment on above: Order Comment: Speci men Type: BLOOD SPECIMENOrdering Facility: [facility] Address: [address] [place] [address] Performed By: #### 5 7021-8 ####KENDRICK LABORATORYCLIA [id number] [address] [place] Monocytes (Bld) [#/Vol] 0.74 10*3/uL Normal <0.87 [facility] Comment on above: Order Comment: Speci men Type: BLOOD SPECIMENOrdering Facility: [facility] Address: [address] [place] [address] Performed By: #### 5 7021-8 ####KENDRICK LABORATORYCLIA [id number] [place] [address] [place] Monocytes/100 WBC (Bld) 11.4 % Normal [facility] Comment on above: Order Comment: Speci men Type: BLOOD SPECIMENOrdering Facility: [facility] Address: [address] [place] [address] Performed By: #### 5 7021-8 ####KENDRICK LABORATORYCLIA [id number] [place] [address] [place] Neutrophils (Bld) [#/Vol] 4.34 10*3/uL Normal 1.45-7.50 [facility] Comment on above: Order Comment: Speci men Type: BLOOD SPECIMENOrdering Facility: [facility] Address: [address] [place] [address] Performed By: #### 5 7021-8 ####KENDRICK LABORATORYCLIA [id number] [address] [place] Neutrophils/100 WBC (Bld) 66.9 % Normal [facility] Comment on above: Order Comment: Speci men Type: BLOOD SPECIMENOrdering Facility: [facility] Address: [address] [place] [address] Performed By: #### 5 7021-8 ####KENDRICK LABORATORYCLIA [id number] [place] [address] [place] Nucleated RBC (Bld) [#/Vol] 10*3/uL Normal <0.01 [facility] Comment on above: Order Comment: Speci men Type: BLOOD SPECIMENOrdering Facility: [facility] Address: [address] [place] [address] Performed By: #### 5 7021-8 ####KENDRICK LABORATORYCLIA [id number] [place] [address] [place] Nucleated RBC/100 WBC (Bld) [Ratio] 0.0 /100 WBC Normal [facility] Comment on above: Order Comment: Speci men Type: BLOOD SPECIMENOrdering Facility: [facility] Address: [address] [place] [address] Performed By: #### 5 7021-8 ####KENDRICK LABORATORYCLIA [id number] [address] Platelet mean volume (Bld) [Entitic vol] 10.9 fL Normal 9.0-12.7 [facility] Comment on above: Order Comment: Speci men Type: BLOOD SPECIMENOrdering Facility: [facility] Address: [address] [place] [address] Performed By: #### 5 7021-8 ####KENDRICK LABORATORYCLIA [id number] [address] [place] Platelets (Bld) [#/Vol] 204 10*3/uL Normal 150-400 [facility] Comment on above: Order Comment: Speci men Type: BLOOD SPECIMENOrdering Facility: [facility] Address: [address] [place] [address] Performed By: #### 5 7021-8 ####[facility] LABORATORYCLIA [id number] [address] RBC (Bld) [#/Vol] 4.30 10*6/uL Normal 3.90-5.20 [facility] Comment on above: Order Comment: Speci men Type: BLOOD SPECIMENOrdering Facility: [facility] Address: [address] [place] [address] Performed By: #### 5 7021-8 ####KENDRICK LABORATORYCLIA [id number] [address] WBC (Bld) [#/Vol] 6.48 10*3/uL Normal 3.70-11.00 [facility] Comment on above: Order Comment: Speci men Type: BLOOD SPECIMENOrdering Facility: [facility] Address: [address] [place] [address] Performed By: #### 5 7021-8 ####KENDRICK LABORATORYCLIA [id number] [address] CNPPascale 12-08-2024 PHAN Telephone ([facility]) TENA CANNON ([id number]) 1940 F Date Time Provider Department 12/08/24 SAHRA GUY During your visit today, we recorded the following information about you: Melissa Monroe Norma 12/08/2024 10:23 AM Signed Patient daughterJuan is calling Sahra Guy MD today to request a prior authorization for the lidocaine 5% per pharmacy [facility] [place] on [address] Please call daughter with updates on this PA Patient has been identified by name and birthdate. Person calling: daughter: Juan Call patient daughter Juan [phone] (home) [phone] (cell) Was an appointment scheduled: No Closing statement: Prior Auth needed for the Lidocaine [facility] Adonay Marquez LPN 12/08/2024 1:33 PM Signed PA submitted. Response pending. [place] Tete Boucher 12/09/2024 2:31 PM Signed Juan, daughter called and stated lidocaine patches are denied and the insurance has faxed an appeal form to our office. She is requesting this is completed. Please call [facility] [phone] at 8-5pm central time. Please follow up [...] Juan states pt will be transitioning to [facility] for inpatient physical therapy. Juan requested [...] with humidific (more content not included)... Normal [facility] CT ABD/PEL WO IVCONon 2024 CT ABD/PEL WO IVCON * * *Final Report* * * DATE OF EXAM: Dec 08 2024 4:57PM [facility] 0531 - CT ABD/PEL WO IVCON / [...] in the lumbar spine. Advanced degenerative changes. Skid Strapper: PSCB Transcribe Date/Time: Dec 08 2024 5:59P Dictated by : SIERRA SILVER MD This examination was interpreted and the report reviewed and electronically signed by: SIERRA SILVER MD on Dec 08 2024 6:18PM EST [id number] [facility] CT BRAIN WO IVCONon 12-09-19 CT BRAIN WO IVCON * * *Final Report* * * DATE OF EXAM: Dec 08 2024 4:56PM [facility] 0504 - CT BRAIN WO IVCON / PROCEDURE REASON: Head trauma, moderate-severe * * * * Physician Interpretation * * * * EXAMINATION: CT BRAIN WO IVCON, CT CERVICAL SPINE WO IVCON CLINICAL HISTORY: Head trauma, moderate-severe (accession [id number]), Spine fracture, cervical, traumatic (accession [id number]) TECHNIQUE: Serial axial images without IV contrast [...] with counting from the craniocervical junction. : Skid Strapper: SymplerB Transcribe Date/Time: Dec 08 2024 5:11P Dictated by : FAUSTINO KINSEY MD This examination was interpreted and the report reviewed and electronically signed by: FAUSTINO KINSEY MD on Dec 08 2024 5:24PM EST [id number] [facility] CT CERVICAL SPINE WO IVCONon 12-08-2024 CT CERVICAL SPINE WO IVCON * * *Final Report* * * DATE OF EXAM: Dec 08 2024 4:56PM [facility] 0505 - CT CERVICAL SPINE WO IVCON / PROCEDURE REASON: Spine fracture, cervical, traumatic * * * * Physician Interpretation * * * * EXAMINATION: CT BRAIN WO IVCON, CT CERVICAL SPINE WO IVCON CLINICAL HISTORY: Head trauma, moderate-severe (accession [id number]), Spine fracture, cervical, traumatic (accession [id number]) TECHNIQUE: Serial axial images without IV contrast [...] with counting from the craniocervical junction. : Skid Strapper: PSCB Transcribe Date/Time: Dec 08 2024 5:11P Dictated by : FAUSTINO KINSEY MD This examination was interpreted and the report reviewed and electronically signed by: FAUSTINO KINSEY MD on Dec 08 2024 5:24PM EST [id number] [facility] CT LUMBAR SPINE W RECON DATA -NBon 12-08-2024 CT LUMBAR SPINE W RECON DATA -NB * * *Final Report* * * DATE OF EXAM: Dec 08 2024 4:57PM [facility] 0481 - CT LUMBAR SPINE W RECON [...] in the lumbar spine. Advanced degenerative changes. Skid Strapper: RYAN Transcribe Date/Time: Dec 08 2024 5:59P Dictated by : SIERRA SILVER MD This examination was interpreted and the report reviewed and electronically signed by: SIERRA SILVER MD on Dec 08 2024 6:18PM EST [id number] Normal [facility] Comprehensive metabolic 2000 panelon 12-08-2024 Albumin [Mass/Vol] 4.1 g/dL Normal 3.9-4.9 [facility] Comment on above: Order Comment: Speci men Type: BLOOD SPECIMENOrdering Facility: [facility] Address: [address] [place] [address] Performed By: #### 2 4323-8, 3040-3 ####KENDRICK LABORATORYCLIA [id number] [address] STATES OF [facility] ALP [Catalytic activity/Vol] 68 U/L Normal 34-123 [facility] Comment on above: Order Comment: Speci men Type: BLOOD SPECIMENOrdering Facility: [facility] Address: [address] [place] [address] Performed By: #### 2 4323-8, 3040-3 ####KENDRICK LABORATORYCLIA [id number] [address] STATES OF [facility] ALT [Catalytic activity/Vol] 15 U/L Normal 7-38 [facility] Comment on above: Order Comment: Speci men Type: BLOOD SPECIMENOrdering Facility: [facility] Address: [address] [place] [address] Performed By: #### 2 4323-8, 3040-3 ####KENDRICK LABORATORYCLIA [id number] [place] [address] [place] [facility] Anion gap [Moles/Vol] 12 mmol/L Normal 8-15 [facility] Comment on above: Order Comment: Speci men Type: BLOOD SPECIMENOrdering Facility: [facility] Address: [address] [place], [place] [address] Performed By: #### 2 4323-8, 0-3 ####KENDRICK LABORATORYCLIA [id number] [place] [address] [place] AST [Catalytic activity/Vol] 18 U/L Normal 13-35 [facility] Comment on above: Order Comment: Speci men Type: BLOOD SPECIMENOrdering Facility: [facility] Address: [address] [place] [address] Performed By: #### 2 4323-8, 0-3 ####KENDRICK LABORATORYCLIA [id number] [place] [address] [place] Bilirubin [Mass/Vol] 0.4 mg/dL Normal 0.2-1.3 [facility] Comment on above: Order Comment: Speci men Type: BLOOD SPECIMENOrdering Facility: [facility] Address: [address] [place] [address] Performed By: #### 2 4323-8, 3039-3 ####KENDRICK LABORATORYCLIA [id number] [place] [address] [place] Calcium [Mass/Vol] 10.1 mg/dL Normal 8.5-10.2 [facility] Comment on above: Order Comment: Speci men Type: BLOOD SPECIMENOrdering Facility: [facility] Address: [facility] [place] [address] Performed By: #### 2 4323-8, 0-3 ####KENDRICK LABORATORYCLIA [id number] [place] [address] [place] Chloride [Moles/Vol] 99 mmol/L Normal 98-107 [facility] Comment on above: Order Comment: Speci men Type: BLOOD SPECIMENOrdering Facility: [facility] Address: [address] [place] [address] [place] [address] Performed By: #### 2 4323-8, 3040-3 ####KENDRICK LABORATORYCLIA [id number] [place] [address] [place] CO2 [Moles/Vol] 27 mmol/L Normal 22-30 [facility] Comment on above: Order Comment: Speci men Type: BLOOD SPECIMENOrdering Facility: [facility] Address: [address] [place] [id number] Performed By: #### 2 4323-8, 3040-3 ####KENDRICK LABORATORYCLIA [id number] [address] Creatinine [Mass/Vol] 0.39 mg/dL Low 0.58-0.96 [facility] Comment on above: Order Comment: Helena bronson Type: BLOOD SPECIMENOrdering Facility: [facility] Address: [address] [place] [address] Performed By: #### 2 4323-8, 0-3 ####KENDRICK LABORATORYCLIA [id number] [address] Creatinine and Glomerular filtration rate.predicted panel (S/P/Bld) 97 mL/min/1.73m??? Normal >=60 [facility] Comment on above: Order Comment: Helena bronson Type: BLOOD SPECIMENOrdering Facility: [facility] Address: [address] [place] [address] Result Comment: Sara mated Glomerular Filtration Rate [...] By: #### 2 4323-8, 0-3 ####KENDRICK LABORATORYCLIA [id number] [address] Glucose [Mass/Vol] 84 mg/dL Normal 74-99 [facility] Comment on above: Order Comment: Helena bronson Type: BLOOD SPECIMENOrdering Facility: [facility] Address: [address] [place] [address] Result Comment: The [place] Diabetes Association (ADA) provides guidance for cutoff [...] Standards of Medical Care in Diabetes 2016, [place] [employer]. Diabetes Care. 2016.39(Suppl 1). Performed By: #### 2 4323-8, 3040-3 ####KENDRICK LABORATORYCLIA [id number] [place] [address] [place] Potassium [Moles/Vol] 3.8 mmol/L Normal 3.7-5.1 [facility] Comment on above: Order Comment: Helena bronson Type: BLOOD SPECIMENOrdering Facility: [facility] Address: [address] [place] [address] Performed By: #### 2 4323-8, 0-3 ####KENDRICK LABORATORYCLIA [id number] [place] [address] [place] Protein [Mass/Vol] 7.3 g/dL Normal 6.3-8.0 [facility] Comment on above: Order Comment: Helena bronson Type: BLOOD SPECIMENOrdering Facility: [facility] Address: [address] [place] [address] Performed By: #### 2 4323-8, 0-3 ####KENDRICK LABORATORYCLIA [id number] [place] [address] [place] Sodium [Moles/Vol] 138 mmol/L Normal 136-144 [facility] Comment on above: Order Comment: Helena bronson Type: BLOOD SPECIMENOrdering Facility: [facility] Address: [address] [place] [address] Performed By: #### 2 4323-8, 3040-3 ####KENDRICK LABORATORYCLIA [id number] [place] [address] [place] Urea nitrogen [Mass/Vol] 18 mg/dL Normal 7-21 [facility] Comment on above: Order Comment: Helena bronson Type: BLOOD SPECIMENOrdering Facility: [facility] Address: [address] [place] [address] Performed By: #### 2 4323-8, 3040-3 ####[place] LABORATORYCLIA [id number] [place] [address] [facility] ED NOTEon 12-08-2024 ED NOTE HNO ID: [id number] Author: KRISTINE UMANZOR, RN Service: Nursing Author Type: Registered Nurse Type: ED Notes Filed: 12/08/2024 20:45 Note Text: Pt is wearing own nightgown [facility] ED NOTE HNO ID: [id number] Author: RADU DISLA, HILDA Service: ? Author Type: Registered Nurse Type: ED Notes Filed: 12/08/2024 20:02 Note Text: [facility] ED NOTE HNO ID: [id number] Author: RADU DISLA RN Service: ? Author Type: Registered Nurse Type: ED Notes Filed: 12/08/2024 20:02 Note Text: Pt back from ct co way increased back pain after laying flat on ct table. Sts 12/10 and now bp up to 225/90s [facility] ED NOTE HNO ID: [id number] Author: RADU DISLA RN Service: ? Author Type: Registered Nurse Type: ED Notes Filed: 12/08/2024 17:05 Note Text: [facility] ED NOTE HNO ID: [id number] Author: HARINDER HEADLEY RN Service: ? Author Type: Registered Nurse Type: ED Notes Filed: 12/08/2024 15:58 Note Text: Bed: ED-10 Expected date: 12/08/24 Expected time: 3:35 PM Means of arrival: [place] [facility] Comments: [facility] ED PROV NOTEon 12-08-2024 ED PROV NOTE HNO ID: [id number] Author: EDGARD PEREZ MD Service: Emergency Medicine [...] vessels break" Novocain [Procaine * Intolerance headaches Vanderbilt-3 Fish Oil [O* Intolerance bleeding in eye [...] to l (more content not included)... Normal [facility] HISTORY PHYSICALon HISTORY PHYSICAL HNO ID: [id number] Author: SUKI GALVAN MD Service: Hospital Medicine Author Type: Physician Type: H&P Filed: 12/08/2024 21:49 Note Text: DEPARTMENT OF HOSPITAL MEDICINE HISTORY AND PHYSICAL EXAM SERVICE DATE: 12/08/2024 SERVICE TIME: 9:48 PM Primary Care Physician: Sahra Guy MD NIGHT AND WEEKEND COVERAGE: [place] COVERAGE: Days: [phone], please page attending physician. Nights: [phone], please page [place] [facility] Night coverage pager [phone]. Subjective CHIEF COMPLAINT: fall HPI: 84-year-old female [...] INTRAVENOUS PRN (more content not included)... Normal [facility] Lipase SerPl-cCncon 12-09-19 25 Lipase [Catalytic activity/Vol] 20 U/L Normal 16-61 [facility] Comment on above: Order Comment: Helena bronson Type: BLOOD SPECIMENOrdering Facility: [facility] Address: [address] [place] [address] Performed By: #### 2 4323-8, 3040-3 ####[facility] [place] LABORATORYCLIA [id number] [place] [id number] [facility] PT panel Coag (PPP)on 2024 INR Coag (PPP) [Relative time] 1.1 {INR} Normal 0.9-1.3 [facility] Comment on above: Order Comment: Helena bronson Type: BLOOD SPECIMENOrdering Facility: [facility] Address: [address] [place] [address] Result Comment: Yvonne min K Antagonist (VKA) Therapeutic Range: INR 2 to 3 (Target INR of 2.5) Note: For patients treated with VKA drugs, such as warfarin, the [place] [employer] 2012 Guideline recommends [...] 70: 252-289 Performed By: #### 1 4979-9, 76371-3 ####[facility] LABORATORYCLIA [id number] [place] [id number] [place] PT Coag (PPP) [Time] 11.4 s Normal 9.7-13.0 [facility] Comment on above: Order Comment: Helena bronson Type: BLOOD SPECIMENOrdering Facility: [facility] Address: [address] [place] [address] Performed By: #### 1 4979-9, 86314-4 ####KENDRICK LABORATORYCLIA [id number] [address] URINALYSIS, REFLEX MICROSCOP ICon 12-08-2024 Bilirubin Ql (U) Negative Normal Negative [facility] Comment on above: Order Comment: Speci men Type: URINE SPECIMENOrdering Facility: [facility] Address: [address] [place] [address] Performed By: #### L [id number] ####KENDRICK LABORATORYCLIA [id number] [address] Clarity (Unsp spec) Clear Normal Clear [facility] Comment on above: Order Comment: Speci men Type: URINE SPECIMENOrdering Facility: [facility] Address: [address] [place] [address] Performed By: #### L [id number] ####KENDRICK LABORATORYCLIA [id number] [address] Color (U) Yellow Normal Yellow [facility] Comment on above: Order Comment: Speci men Type: URINE SPECIMENOrdering Facility: [facility] Address: [address] [place] [address] Performed By: #### L [id number] ####KENDRICK LABORATORYCLIA [id number] [address] Glucose Test strip (U) [Mass/Vol] Negative Normal Negative [facility] Comment on above: Order Comment: Speci men Type: URINE SPECIMENOrdering Facility: [facility] Address: [address] [place] [address] Performed By: #### L [id number] ####KENDRICK LABORATORYCLIA [id number] [address] Hemoglobin Ql (U) Negative Normal Negative [facility] Comment on above: Order Comment: Speci men Type: URINE SPECIMENOrdering Facility: [facility] Address: [address] [place] [address] Performed By: #### L [id number] ####KENDRICK LABORATORYCLIA [id number] [address] [place] Ketones Ql (U) 2+ Abnormal Negative [facility] Comment on above: Order Comment: Speci men Type: URINE SPECIMENOrdering Facility: [facility] Address: [address] [place] [address] Performed By: #### L [id number] ####KENDRICK LABORATORYCLIA [id number] [address] Leukocyte esterase Test strip Ql (U) Negative Normal Negative [facility] Comment on above: Order Comment: Speci men Type: URINE SPECIMENOrdering Facility: [facility] Address: [address] [place] [address] Performed By: #### L [id number] ####KENDRICK LABORATORYCLIA [id number] [place] [address] [place] Nitrite Ql (U) Negative Normal Negative [facility] Comment on above: Order Comment: Speci men Type: URINE SPECIMENOrdering Facility: [facility] Address: [address] [place] [address] Performed By: #### L [id number] ####KENDRICK LABORATORYCLIA [id number] [place] [address] [place] pH (U) 6.0 [pH] Normal 5.0-8.0 [facility] Comment on above: Order Comment: Speci men Type: URINE SPECIMENOrdering Facility: [facility] Address: [address] [place] [address] Performed By: #### L [id number] ####KENDRICK LABORATORYCLIA [id number] [place] [address] [place] Protein (U) [Mass/Vol] Negative Normal Negative [facility] Comment on above: Order Comment: Speci men Type: URINE SPECIMENOrdering Facility: [facility] Address: [address] [place] [address] Performed By: #### L [id number] ####KENDRICK LABORATORYCLIA [id number] [place] [address] [place] Specific gravity (U) [Rel density] 1.020 Normal 1.005-1.030 [facility] Comment on above: Order Comment: Speci men Type: URINE SPECIMENOrdering Facility: [facility] Address: [address] [place] [id number] Performed By: #### L [id number] ####KENDRICK LABORATORYCLIA [id number] [place] [id number] [facility] Urobilinogen Ql (U) 0.2 EU/dL Normal 0.2-1.0 EU/dL [facility] Comment on above: Order Comment: Speci men Type: URINE SPECIMENOrdering Facility: [facility] Address: [address] [place] [place] [id number] Performed By: #### L [id number] ####KENDRICK LABORATORYCLIA [id number] [address] XR CHEST 1V FRONTAL PORTon 0 [...] the findings on the concurrent abdominal CT. Skid Strapper: RYAN Transcribe Date/Time: Dec 08 2024 5:22P Dictated by : TAMERA DRAKE MD This examination was interpreted and the report reviewed and electronically signed by: TAMERA DRAKE MD on Dec 08 2024 5:25PM EST [id number] Normal [facility] aPTT PPPon 12-08-2024 aPTT Coag (PPP) [Time] 27.9 s Normal 23.0-32.4 [facility] Comment on above: Order Comment: Speci men Type: BLOOD SPECIMENOrdering Facility: [facility] Address: [address] [place] [address] Performed By: #### 1 4979-9, 71076-6 ####STRAWBERRY POINT LABORATORYCLIA [id number] [place] [address] [facility] CNPNon 12-07-2024 CNPN Telephone (AYETravolver) TENA CANNON ([id number]) 1940 F Date Time Provider Department 12/07/24 SAHRA GUY During your visit today, we recorded the following information about you: Sugey Stover 12/07/2024 3:21 PM Signed Patient's daughter is calling that the Rx Lidocaine is not covered for the 4% but the 5% is. She is asking if this can be re-ordered as such and sent to [facility] while she is in the [facility] today. Please call [facility] if the Rx is being changed/sent. [phone] Sahra Guy MD 12/07/2024 4:52 PM Signed The following approved medication requests have been transmitted electronically. Requested Prescriptions Signed Prescriptions Disp Refills lidocaine (LIDODERM) 5 % 30 patch 2 Sig: Apply 1 patch as directed once daily. REMOVE AFTER 12 HOURS. Authorizing Provider: SAHRA GUY Pharmacy Information Pharmacy Address Telephone [id number] [place] [address] MD Eladio Mitchell Cheralyn, LPN 12/07/2024 5:17 PM Signed Called and spoke with pt and daughter Juan. Stated they will chart picker medication. Pt would like to know [...] TEARS OPHTHALMIC) Use in eyes. - rutin/hesp/bioflav/C/h [id number] (BIOFLEX ORAL) Take 1 capsule by mouth [...] VENOUS INSUFFICIENCY (more content not included)... Normal [facility] 10-24-[address] [facility] Telephone (LINDY) CANNONTENA Esquivel ([id number]) 1940 F Date Time Provider Department 10/24/24 SAHRA GUY During your visit today, we recorded the following information about you: Malika Sheikh LPN 10/24/2024 3:34 PM Signed Received 10/21/2024 from [facility]. Placed in provider's inbox for review. Route to [place] for faxing Allergies As of Date: 10/24/2024 [...] break" Date Reviewed: 09/16/2024 Reviewed by: Malika Sheihk LPN - Fully Assessed Reason for Visit: Received Outside Medical Records [[id number]] Cmt: [facility] OT Evaluation performed no further treatment. [...] TEARS OPHTHALMIC) Use in eyes. 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] 11/27/2008 Poliomyelitis osteopathy of multiple sites (HCC*11/27/2008 Sleep apnea [G47.30] 04/15/2010 02/01/2019 Vitamin D Deficiency [E55.9] 04/15/2010 Osteopenia [M85.80] 04/15/2010 Incontinence [R32] 07/19/2012 Fracture of L1 vertebra ([facility]) [S32.019A] 06/02/2014 02/01/2019 Lumbar radiculopathy [M54.16] 06/03/2014 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 Normal [facility] CNPPascale 10-19-2024 CNPN Telephone (WALKWA) TENA CANNON ([id number]) 1940 F Date Time Provider Department 10/19/24 SAHRA GUY During your visit today, we recorded the following information about you: Adonay Marquez LPN 10/19/2024 5:27 PM Signed Received orders from [facility]. Placed in provider's inbox for review. 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] 11/27/2008 Poliomyelitis osteopathy of multiple sites ([facility]*11/27/2008 Sleep apnea [G47.30] 04/15/2010 02/01/2019 Vitamin D Deficiency [E55.9] 04/15/2010 Osteopenia [M85.80] 04/15/2010 Incontinence [R32] 07/19/2012 Fracture of L1 vertebra ([facility]) [S32.019A] 06/02/2014 02/01/2019 Lumbar radiculopathy [M54.16] 06/03/2014 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 Obstructive sleep apnea on CPAP [G47.33] 07/14/2017 Rosacea [L71.9] 10/13/2017 Obesity, Class III, BMI 40-49.9 (morbid obesity*12/02/2017 Generalized weakness [R53.1] 07/29/2018 Shingles rash [B02.9] 07/29/2018 02/01/2019 Herpes zoster lesion [B02.8] 07/29/2018 02/01/2019 Epigastric pain [R10.13] 08/25/2018 11/24/2018 Encounter Status:Closed by ADONAY MARQUEZ on 10/19/24 [facility] Agustina 10-12-2024 PHAN Telephone (FPWADS) TENA CANNON ([id number]) 1940 F Date Time Provider Department 10/12/24 SAHRA GUY During your visit today, we recorded the following information about you: Mary BoucherJosephCris 10/12/2024 2:06 PM Signed Tena is calling Sahra Guy MD today with concern regarding PT Eval Physical therapy once a week for eight weeks. Patient has been identified by name and birthdate. Duration of symptoms: N/A Person calling: [facility] Physical therapy Closing statement: Results or non-symptom based questions: Thank you for calling [facility], your call will be returned within the [...] TEARS OPHTHALMIC) Use in eyes. - rutin/hesp/bioflav/C/h [id number] (BIOFLEX ORAL) Take 1 capsule by mouth [...] LOWER LEG [M25.569] 01/22/2007 VERTEBRAL FX NOS-CLOSED [[id number]] 03/24/2007 RESTLESS LEGS SYNDROME [G25.81] BONE AND [...] syndrome [G (more content not included)... Normal [facility] Agustina 10-11-2024 CNPN Telephone (LINDY) TENA CANNON ([id number]) 1940 F Date Time Provider Department 10/11/24 SAHRA GUY During your visit today, we recorded the following information about you: Rachel Stacy 10/11/2024 1:14 PM Signed Jonathon from [facility] is calling for a verbal order [...] TEARS OPHTHALMIC) Use in eyes. - rutin/hesp/bioflav/C/h [id number] (BIOFLEX ORAL) Take 1 capsule by mouth [...] LOWER LEG [M25.569] 01/22/2007 VERTEBRAL FX NOS-CLOSED [[id number]] 03/24/2007 RESTLESS LEGS SYNDROME [G25.81] BONE AND [...] Encounter Status: (more content not included)... [facility] Telephone (JULIANNAWAANA M) TENA CANNON ([id number]) 1940 F Date Time Provider Department 10/06/24 SAHRA GUY During your visit today, we recorded the following information about you: [place] Tete Boucher 10/06/2024 9:14 AM Signed Tena [...] calling: self Call patient at: at home [phone] (home) [phone] (cell) Was an appointment scheduled: No Closing statement: Results or non-symptom based questions: Thank you for calling [facility], your call will be returned within the next business day. Tete Mora [facility] Sahra Guy MD 10/06/2024 10:41 AM Signed Generally speaking, physical therapy addresses lower extremity issue. Happy to initiate referral Therapy order placed. 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 Muscle strain of lower leg, unspecified laterality, initial encounter S86.916W CONSULT TO PHYSICAL THERAPY Fax to facility MD Aguilar Mitchell Lisa, LPN 10/06/2024 4:04 PM Signed Patient wanting an OT referral to educate and advise patient on ways not to fall in the bathroom. 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 Muscle strain of lower leg, unspecified laterality, initial encounter S86.919A CONSULT TO PHYSICAL THERAPY CONSULT TO SHIP LOADER 3. Falls frequently R29.6 CONSULT TO SHIP LOADER Please fax order , does she know which agency comes to her facility MD Aguilar Mitchell Lisa, LPN 10/10/2024 3:52 PM Signed Patient will call back with name of therapy that goes to her facility Ninfa Erwin, RN 10/11/2024 10:23 AM Signed Patient called and LVM on Nurse Triage line; [facility], phone number is [phone] Malika Sheikh LPN 10/11/2024 12:49 PM Signed [...] Order(s):CONSULT TO PHYSICAL THERAPY [9032] Order #: [id number]: 1 FUTURE CONSULT TO SHIP LOADER [[id number]] Order #: [id number]: 1 FUTURE Prescriptions as of 11/12/2024 - [...] w/ iron (more content not included)... Normal [facility] 09-23-2024 PHAN Telephone (LINDY) TENA CANNON ([id number]) 1940 F Date Time Provider Department 09/23/24 SAHRA GUY During your visit today, we recorded the following information about you: Malika Sheikh LPN 09/23/2024 10:07 AM Signed Received 09/23/2024 from [facility]. Placed in provider's inbox for review. [place] to [place] for faxing. Allergies As of Date: 09/23/2024 [...] Reason for Visit: Received Outside Medical Records [357] Cmt: [facility] Face to Face [...] TEARS OPHTHALMIC) Use in eyes. - rutin/hesp/bioflav/C/h [id number] (BIOFLEX ORAL) Take 1 capsule by mouth [...] LOWER LEG [M25.569] 01/22/2007 VERTEBRAL FX NOS-CLOSED [[id number]] 03/24/2007 RESTLESS LEGS SYNDROME [G25.81] BONE AND [...] [B02.8] 07/29/2018 (more content not included)... Normal [facility] CNOVon 09-16-2024 CNOV Office Visit (FPWADS ) TENA CANNON ([id number]) 1940 F Date Time Provider Department 09/16/24 [...] services describ (more content not included)... Normal [facility] Agustina 09-09-2024 PHAN Telephone (FPWADS) CANNONTENA Esquivel ([id number]) 1940 F Date Time Provider Department 09/09/24 SAHRA GUY During your visit today, we recorded the following information about you: Cris Rascon 09/09/2024 10:47 AM Signed Tena is calling Sahra Guy MD today with concern regarding Orders Patient is there to get Lab work. If you can please FAX lab orders to them. FAX [phone]. Patient has been identified by name and birthdate. Duration of symptoms: N/A Person calling: Daphnie Matinicus Was an appointment scheduled: No Closing statement: Results or non-symptom based questions: Thank you for calling [facility], your call will be returned within the next business day. Sugey Cuevas 09/09/2024 10:57 AM Signed Patient called back regarding orders needed. Orders were faxed to : [facility] [phone] Allergies As of Date: 09/09/2024 Noted Allergy [...] LOWER LEG [M25.569] 01/22/2007 VERTEBRAL FX NOS-CLOSED [[id number]] 03/24/2007 RESTLESS LEGS SYNDROME [G25.81] BONE AND [...] [S32.019A] 06/02 (more content not included)... Normal [facility] METABOLIC PANE Kojo 09-09-2024 Albumin [Mass/Vol] 3.6 g/dL Normal 3.4-4.8 [facility] Comment on above: Performed By: #### L AB17, LAB18 #### Band Instrument Maker: JEAN PIERRE CA ([id number]) [facility] MEXICONICOLAS ([facility]) [address] [place] [address] ALP [Catalytic activity/Vol] 59 U/L Normal 40-150 [facility] Comment on above: Performed By: #### L AB17, LAB18 #### Band Instrument Maker: JEAN PIERRE CA ([id number]) [facility] (SWRLAB) [address] [place] [address] [place] ALT [Catalytic activity/Vol] 18 U/L Normal <30 [facility] Comment on above: Performed By: #### L AB17, LAB18 #### Band Instrument Maker: JEAN PIERRE CA ([id number]) [facility] ELLER RITTMAN (SWRLAB) [address] Anion gap [Moles/Vol] 2 mmol/L Low 3-13 [facility] Comment on above: Performed By: #### L AB17, LAB18 #### Band Instrument Maker: JEAN PIERRE CA ([id number]) [facility] ELLER RITTMAN (SWRLAB) [address] [place] [address] AST [Catalytic activity/Vol] 21 U/L Normal <34 [facility] Comment on above: Performed By: #### L AB17, LAB18 #### Band Instrument Maker: JEAN PIERRE CA ([id number]) [facility] ELLER RITTMAN (SWRLAB) [address] [place] [address] [place] Bilirubin [Mass/Vol] 0.5 mg/dL Normal <1.2 [facility] Comment on above: Performed By: #### L AB17, LAB18 #### Band Instrument Maker: JEAN PIERRE CA ([id number]) [facility] ELLER RITTMAN (SWRLAB) [address] [place] [address] [place] Calcium [Mass/Vol] 9.8 mg/dL Normal 8.8-10.0 [facility] Comment on above: Performed By: #### L AB17, LAB18 #### Band Instrument Maker: JEAN PIERRE CA ([id number]) [facility]ENTERUr[facility] FAGANDAPHNIE RITTMAN (SWRLAB) [address] [place] [address] [place] Chloride [Moles/Vol] 105 mmol/L Normal 98-107 [facility] Comment on above: Performed By: #### L AB17, LAB18 #### Band Instrument Maker: JEAN PIERRE CA ([id number]) [facility] (SWRLAB) [address] [place] [address] [place] CO2 [Moles/Vol] 31 mmol/L Normal 23-31 [facility] Comment on above: Performed By: #### L AB17, LAB18 #### Band Instrument Maker: JEAN PIERRE CA ([id number]) [facility]ENTER[facility] ELLER RITTMAN (SWRLAB) [address] [place] [address] [place] Creatinine [Mass/Vol] 0.56 mg/dL Low 0.57-1.11 [facility] Comment on above: Performed By: #### L AB17, LAB18 #### Band Instrument Maker: JEAN PIERRE CA ([id number]) [facility] ELLER RITTM[facility] (SWRLAB) [address] [place] [address] [place] GLOMERULAR FILTRATION RATE ML/MIN/1.73 SQ M.PREDICTED 89.0 mL/min/1.73m*2 Normal >60.0 [facility] Comment on above: Result Comment: Calc ulation based on the Chronic Kidney Disease Epidemiology Collaboration (CKD-EPI) equation refit without adjustment for race Performed By: #### L AB17, LAB18 #### Band Instrument Maker: JEAN PIERRE CA ([id number]) [facility]ENTER[facility] ELLER RITTM[facility] (SWRLAB) [address] [place] [address] [place] Glucose [Mass/Vol] 91 mg/dL Normal 82-115 [facility] Comment on above: Performed By: #### L AB17, LAB18 #### Band Instrument Maker: JEAN PIERRE CA ([id number]) [facility]ENTER[facility] ELLER RITTMAN (SWRLAB) [address] [place] [address] [place] Potassium [Moles/Vol] 4.1 mmol/L Normal 3.5-5.1 [facility] Comment on above: Result Comment: [facility] potassium values may be up to 0.5 mmol/L lower than serum values. Performed By: #### L AB17, LAB18 #### Band Instrument Maker: JEAN PIERRE CA ([id number]) [facility]ENTER[facility] ELLER RITTMAN (SWRLAB) [address] Protein [Mass/Vol] 6.7 g/dL Normal 6.4-8.3 [facility] Comment on above: Performed By: #### L AB17, LAB18 #### Band Instrument Maker: JEAN PIERRE CA ([id number]) [facility]ENTERUr[facility] CASTELLANOTMAN (SWRLAB) [address] Sodium [Moles/Vol] 138 mmol/L Normal 136-145 [facility] Comment on above: Performed By: #### L AB17, LAB18 #### Band Instrument Maker: JEAN PIERRE CA ([id number]) [facility]ENTERUr[facility] CASTELLANOTMAN (SWRLAB) [address] [place] [address] Urea nitrogen [Mass/Vol] 20 mg/dL Normal 9-23 [facility] Comment on above: Performed By: #### Safia AB17, LAB18 #### Band Instrument Maker: JEAN PIERRE CA ([id number]) [facility]ENTERUr[facility] CASTELLANOTMAN (SWRLAB) [address] [place] [address] Comprehensive metabolic 1998 panelon 09-09-2024 Albumin [Mass/Vol] 3.6 g/dL 3.4 - 4.8 g/dL [facility] ALP [Catalytic activity/Vol] 59 U/L 40 - 150 U/L [facility] ALT [Catalytic activity/Vol] 18 U/L NINF - 30 U/L [facility] Anion gap [Moles/Vol] 2 mmol/L Low 3 - 13 mmol/L [facility] AST [Catalytic activity/Vol] 21 U/L NINF - 34 U/L [facility] Bilirubin [Mass/Vol] 0.5 mg/dL NINF - 1.2 mg/dL [facility] Calcium [Mass/Vol] 9.8 mg/dL 8.8 - 10. 0 mg/dL [facility] Chloride [Moles/Vol] 105 mmol/L 98 - 10 7 mmol/L [facility] CO2 [Moles/Vol] 31 mmol/L 23 - 31 mmol/L [facility] Creatinine [Mass/Vol] 0.56 mg/dL Low 0.57 - 1.11 mg/dL [facility] GFR/1.73 sq M.predicted (S/P/Bld) [Vol rate/Area] 89 mL/min - PINF [facility] Comment on above: Calculation based on the Chronic Kidney Disease Epidemiology Collaboration (CKD-EPI) equation refit without adjustment for race Glucose [Mass/Vol] 91 mg/dL 82 - 115 mg/dL [facility] Potassium [Moles/Vol] 4.1 mmol/L 3.5 - 5.1 mmol/L [facility] Comment on above: Plasma potassium caitlin ues may be up to 0.5 mmol/L lower than serum values. Protein [Mass/Vol] 6.7 g/dL 6.4 - 8.3 g/dL [facility] Sodium [Moles/Vol] 138 mmol/L 136 - 145 mmol/L [facility] Urea nitrogen [Mass/Vol] 20 mg/dL 9 - 23 mg/d L [facility] HEMOGLOBIN A1Con 09-09-2024 Glucose [Mass/Vol] 82 mg/dL Normal [facility] Comment on above: Result Comment: JOHN PAUL Luo COMMENTS: HbA1c values of 5.7-6.4 percent indicate an increased risk for developing diabetes mellitus. HbA1c values greater than or equal to 6.5 percent are diagnostic of diabetes mellitus. For diagnosis of diabetes in individuals without unequivocal hyperglycemia, results should be confirmed by repeat testing. Performed By: #### L AB90 #### Band Instrument Maker: JEAN PIERRE CA ([id number]) [facility] (RLAB) [address] [place] [address] HEMOGLOBIN A1C 4.5 %HbA1C Normal <5.7 [facility] Comment on above: Result Comment: Norm al less than 5.7% Prediabetes 5.7% to 6.4% Diabetes 6.5% or higher --HgbA1C levels may not be accurate in patients who have renal disease, received recent blood transfusions, are anemic, or who have dyshemoglobinemia. Performed By: #### L AB90 #### Band Instrument Maker: JEAN PIERRE CA ([id number]) [facility] [employer]AN (SWRLAB) [address] [place] [address] Hemoglobin A1con 09-09-2024 Average glucose Estimated from glycated hemoglobin (Bld) [Mass/Vol] 82 mg/dL [facility] HbA1c (Bld) [Mass fraction] 4.5 % NINF [facility] Comment on above: Normal less than [...] results should be confirmed by repeat testing. [facility] LIPID PANELon 09-09-2024 Cholesterol [Mass/Vol] 170 mg/dL Normal <200 [facility] Comment on above: Performed By: #### L AB17, LAB18 #### Band Instrument Maker: JEAN PIERRE CA ([id number]) [facility]ENTER[facility] ELLER Oz[employer]TMAN (SWRLAB) [address] [place] [address] Cholesterol in HDL [Mass/Vol] 59 mg/dL Low >=60 [facility] Comment on above: Performed By: #### L AB17, LAB18 #### Band Instrument Maker: JEAN PIERRE CA ([id number]) [facility]ENTERUr[facility] DAPHNIE Action Auto SalesAN (SWRLAB) [address] [place] [address] Cholesterol.total/Choles terol in HDL [Mass ratio] 3 {ratio} Normal [facility] Comment on above: Result Comment: Ref Range: < 3 Low Risk for CHD 3-6 Mod Risk for CHD > 6 High Risk for CHD Performed By: #### L AB17, LAB18 #### Band Instrument Maker: JEAN PIERRE CA ([id number]) [facility]ENTER[facility] ELLER RITTMAN (SWRLAB) [address] [place] [address] LOW DENSITY LIPOPROTEIN 95 mg/dL Normal 0-<100 [facility] Comment on above: Performed By: #### L AB17, LAB18 #### Band Instrument Maker: JEAN PIERRE CA ([id number]) [facility]ENTERUr[facility] ELLER RITTMAN (SWRLAB) [address] [place] [address] [place] NON-HDL CHOLESTEROL, CALCULATED 111 Normal <130 [facility] Comment on above: Performed By: #### L AB17, LAB18 #### Band Instrument Maker: JEAN PIERRE CA ([id number]) [facility]ENTER[facility] ELLER RITTMAN (SWRLAB) [address] Triglyceride [Mass/Vol] 80 mg/dL Normal <150 [facility] Comment on above: Performed By: #### L AB17, LAB18 #### Band Instrument Maker: JEAN PIERRE CA ([id number]) [facility]ENTERUr[facility] ELLER RITTMAN (SWRLAB) [address] VERY LOW DENSITY LIPOPROTEIN, CALCULATED 16 mg/dL Normal <=30 [facility] Comment on above: Performed By: #### L AB17, LAB18 #### Band Instrument Maker: JEAN PIERRE CA ([id number]) [facility]ENTER[facility] ELLER RITTMAN (SWRLAB) [address] Lipid 1996 panelon 5 Cholesterol [Mass/Vol] 170 mg/dL NINF - 200 mg/dL [facility] [employer] Cholesterol in HDL [Mass/Vol] 59 mg/dL Low 60 - PINF mg/dL [facility] [employer] Cholesterol in LDL [Mass/Vol] 95 mg/dL 0 - <100 [facility] [employer] Cholesterol.total/Choles terol in HDL [Mass ratio] 3 {ratio} [facility] [employer] Comment on above: Ref Range: < 3 Low Risk for CHD 3-6 Mod Risk for CHD > 6 High Risk for CHD NON-HDL CHOLESTEROL, CALCULATED 111 NINF - 130 [facility] [employer] Triglyceride [Mass/Vol] 80 mg/dL NINF - 150 mg/dL [facility] [employer] VERY LOW DENSITY LIPOPROTEIN, CALCULATED 16 mg/dL [facility] mg/dL [facility] [employer] No Panel Informationon 09-09 Interpretation and review of laboratory results Abnormal [facility] CNPNon 09-02-2024 ANOTNYN Telephone (FPWADS) TENA CANNON ([id number]) 1940 F Date Time Provider Department 09/02/24 SAHRA GUY During your visit today, we recorded the following information about you: Tete Melchor 09/02/2024 11:14 AM Signed Tena is a patient of Sahra Guy MD today LOBO Garcia called from the [facility] and stated the patient wants to find out her lab test results. Per Radha, the patient administers her own medications so it is fine to speak with the patient, please call her today. Patient has been identified by name and birthdate. Duration of symptoms: N/A Person calling: self Call patient at: on cell [phone] (home) [phone] (cell) Was an appointment scheduled: No Closing statement: Results or non-symptom based questions: Thank you for calling [facility], your call will be returned within the [...] TEARS OPHTHALMIC) Use in eyes. 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 Normal [facility] Agustina 09-01-2024 CNPN Telephone (LINDY) TENA CANNON ([id number]) 1940 F Date Time Provider Department 09/01/24 SAHRA GUY During your visit today, we recorded the following information about you: Sugey Stover 09/01/2024 1:23 PM Signed Rachel with [facility] is calling Sahra Guy MD today to request this month's Office visit Notes. Faxed to Rachel at fax number [phone] Allergies As of Date: 09/01/2024 Noted Allergy [...] TEARS OPHTHALMIC) Use in eyes. 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] 11/27/2008 Poliomyelitis osteopathy of multiple sites ([facility]*11/27/2008 Sleep apnea [G47.30] 04/15/2010 02/01/2019 Vitamin D Deficiency [E55.9] 04/15/2010 Osteopenia [M85.80] 04/15/2010 Incontinence [R32] 07/19/2012 Fracture of L1 vertebra ([facility]) [S32.019A] 06/02/2014 02/01/2019 Lumbar radiculopathy [M54.16] 06/03/2014 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 [phone] Adonay Marquez LPN 09/02/2024 4:02 PM Signed Called and informed pt of pcp interpretation and recommendation. Pt would like to schedule a follow up and have a repeat lab draw in the office. Please assist pt with scheduling Sahra Guy MD 09/05/2024 10:04 AM Signed We can see her any time and do the repeat lab . Sahra Guy MD Nona Woodbine 09/06/2024 11:37 AM Signed Called and scheduled pt f/u. She wanted PCP to have results prior to appt so she is getting lab drawn in [place]. Allergies As of Date: 09/01/2024 Noted Allergy [...] TEARS OPHTHALMIC) Use in eyes. - rutin/hesp/bioflav/C/h [id number] (BIOFLEX ORAL) Take 1 capsule by mouth [...] LOWER LEG [M25.569] 01/22/2007 VERTEBRAL FX NOS-CLOSED [[id number]] 03/24/2007 RESTLESS LEGS SYNDROME [G25.81] BONE AND CARTILAGE DIS NOS [M89.9, M94.9] PAIN IN LIMB [M79.609] 11/22/2008 Deformity of ankle (more content not included)... Normal [facility] CNPNon 08-31-2024 [facility]FP[facility] TENA CANNON ([id number]) 1940 F Date Time Provider Department 08/31/24 [...] calling: self Call patient at: at home [phone] (home) [phone] (cell) Was an appointment scheduled: No Closing statement: Results or non-symptom based questions: Thank you for calling [facility], your call will be returned within the [...] tests Order(s):LIPID PANEL BASIC [SQLIPB] Order #: [id number] HBA1C (OUTSIDE) [[id number]] Order #: [id number] COMPLETE BLOOD COUNT AND DIFFERENTIAL [SQCBCDIF] Order #: [id number] Prescriptions as of 11/12/2024 - metFORMIN (GLUCOPHAGE) [...] TEARS OPHTHALMIC) Use in eyes. 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 Normal [facility] CBC W Auto Differential pane l (Bld)on 08-26-2024 Basophils/100 WBC (Bld) 0.6 % C [facility] CD59 deficient monocytes/100 cells (Bld) 14.2 Abnormal [facility] EOSINOPHILS,ABSOLUTE 0.1 [facility] Eosinophils/100 WBC (Bld) 2.6 % [facility] Erythrocyte distribution width (RBC) [Ratio] 12.9 % 11.5 - 14.5 % [facility] Hematocrit (Bld) [Volume fraction] 35.8 % Abnormal 37 - 47 % [facility] Hemoglobin (Bld) [Mass/Vol] 12.3 g/dL [facility] Lymphocytes (Bld) [#/Vol] 1.6 10*3/uL [facility] Lymphocytes/100 WBC (Bld) 33 % [facility] MCH (RBC) [Entitic mass] 32.6 pG 27 - 34 pG [facility] MCHC 34.4 % 32 - 36 % [facility] MCV (RBC) [Entitic vol] 94.8 fL 80 - 100 fL [facility] Monocytes (Bld) [#/Vol] 0.7 10*3/uL [facility] NEUTROPHILS ABSOLUTE 2.5 [facility] Neutrophils/100 WBC (Bld) 49.6 % [facility] Nucleated RBC (Bld) [#/Vol] 0.2 10*3/uL [facility] Platelet mean volume (Bld) [Entitic vol] 10 % 7.3 - 11.1 % [facility] Platelets (Bld) [#/Vol] 164 10*3/uL [facility] RBC (Bld) [#/Vol] 3.77 10*6/uL Abnormal [facility] WBC (Bld) [#/Vol] 5 10*3/uL 4.0 - 11.0 K/uL [facility] HBA1C (OUTSIDE)on 08-26-2024 HbA1c (Bld) [Mass fraction] 4.7 % [facility] Lipid 1996 panelon Cholesterol [Mass/Vol] 162 mg/dL - 199 mg/dL [facility] Cholesterol in HDL [Mass/Vol] 7 mg/dL Critically low [facility] Cholesterol in LDL [Mass/Vol] 127 mg/dL [facility] LDL/HDL RATIO 18.1 [facility] Triglyceride [Mass/Vol] 140 mg/dL [facility] VLDL Cholesterol 28 [facility] No Panel Informationon 08-26 Interpretation and review of laboratory results Abnormal [facility] CNPNon 08-24-2024 ANTONYN Telephone (LINDY) TENA CANNON ([id number]) 1940 F Date Time Provider Department 08/24/24 ASHRA GUY During your visit today, we recorded the following information about you: Adonay Marquez LPN 08/24/2024 10:26 AM Signed Received orders from [facility]. Placed in provider's inbox for review. Route to [place] fax Allergies As of Date: 08/24/2024 Noted [...] Assessed Reason for Visit: Orders [681] Cmt: [facility], [facility] Prescriptions as of 08/24/2024 - metFORMIN (GLUCOPHAGE) [...] TEARS OPHTHALMIC) Use in eyes. 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] 11/27/2008 Poliomyelitis osteopathy of multiple sites (HCC*11/27/2008 Sleep apnea [G47.30] 04/15/2010 02/01/2019 Vitamin D Deficiency [E55.9] 04/15/2010 Osteopenia [M85.80] 04/15/2010 Incontinence [R32] 07/19/2012 Fracture of L1 vertebra ([facility]) [S32.019A] 06/02/2014 02/01/2019 Lumbar radiculopathy [M54.16] 06/03/2014 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 yes Would you [...] Obesity, Class III, BMI 40-49.9 (morbid obesity) ([facility]) Comment: Stable. In need of refill Plan: [...] multiple thuy (more content not included)... Normal [facility] Agustina 08-22-2024 [facility] Tele[facility] (FAMPTW) TENA CANNON ([id number]) 1940 F Date Time Provider Department 08/22/24 SAHRA GUY FAMPTW During your visit today, we recorded the following information about you: Norma Long 08/22/2024 11:10 AM Signed Tena is calling Sahra Guy MD today is now using [employer] with a new insurance company( using the [...] calling: self Call patient at: at home [phone] (home) [phone] (cell) Was an appointment scheduled: Yes: Date/Time: 08/23/[address] Guy Closing statement: Results or non-symptom based questions: Thank you for calling [facility], your call will be returned within the next business day. Norma Torres [facility] Adonay Marquez LPN 08/22/2024 3:37 PM Signed [...] fill all Rx's that apply per patient [employer] mail order Prescriptions as of 08/22/2024 - [...] TEARS OPHTHALMIC) Use in eyes. 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 Normal [facility] 08-15-2024 [facility] Tele[facility] (FPWADS) TENA CANNON ([id number]) 1940 F Date Time Provider Department 08/15/24 [...] flag will happen. Please call Rachel at [phone] Leonid Leal APRN.CNP 08/15/2024 3:01 PM Signed [...] change your name." Copied and pasted from [email or web address] Please advise. Alicia Sultana 08/17/2024 9:25 AM Signed Rachel from [facility] calling back and states that since patient is scheduled with Dr. Guy on 08/23 they will be able to use his name as a certifying provider. [facility] asking for a verbal order from Dr. Guy. Please return call to [phone] Leonid Leal APRN.CNP 08/17/2024 10:49 AM Signed [...] in the (more content not included)... 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 Subjective Tenaalvin Cannon is a 83 year [...] Keflex [Cephalexin], Vioxx [Rofecoxib], Novocain [Procaine Hcl], Vanderbilt-3 Fish Oil [Vanderbilt-3 Fatty Acids-Vitamin E], Advil [Ibuprofen], and Asa [...] (LIQUID TEARS OPHTHALMIC) Use in eyes. rutin/hesp/bioflav/C/h [id number] (BIOFLEX ORAL) Take 1 capsule by mouth twice daily. CPAP BipaP @ 14/9 cm of water with humidification, removable water dispenser (for cleaning) . Mask (small/ per patient preference) , filters, tubing, humidifier and lifetime supplies. (G47.33, Z99.89) Obstructive sleep apnea on CPAP cyclopentolate (CYCLOGYL) (more content not included)... Normal [facility] Agustina 08-11-2024 [facility] Nurse Triage (LINDY ) TENA CANNON ([id number]) 1940 F Date Time Provider Department 08/11/24 [...] calling: self Call patient at: at home [phone] (home) [phone] (cell) Was an appointment scheduled: No Closing statement: Symptom Call: Thank you for calling [facility], your call is very important. A nurse [...] Denies 11. : N/a Protocols used: Back Faed-[id number] Allergies As of Date: 08/11/2024 Noted Allergy [...] TEARS OPHTHALMIC) Use in eyes. - rutin/hesp/bioflav/C/h elryl292 (BIOFLEX ORAL) Take 1 capsule by mouth twice daily. - CPAP BipaP @ 14/9 cm of water with humidification, removable water dispenser (for cleaning) . Mask (small/ per patient preference) , filters, tubing, humidifier and lifetime supplies. (G47.33, Z99.89) Obstructive sleep apnea on CPAP - cyclopentola (more content not included)... Normal [facility] Agustina 06-23-2024 PHAN Telephone (LINDY) TENA CANNON ([id number]) 1940 F Date Time Provider Department 06/23/24 SAHRA GUY During your visit today, we recorded the following information about you: Adonay Marquez LPN 06/23/2024 3:19 PM Signed Received DNR order from [employer]. Placed in provider's inbox for review. Route to [place] fax Allergies As of Date: 06/23/2024 Noted [...] Assessed Reason for Visit: Orders [681] [facility] Prescriptions as of 06/23/2024 - oxybutynin ER [...] TEARS OPHTHALMIC) Use in eyes. - rutin/hesp/bioflav/C/h [id number] (BIOFLEX ORAL) Take 1 capsule by mouth [...] LOWER LEG [M25.569] 01/22/2007 VERTEBRAL FX NOS-CLOSED [[id number]] 03/24/2007 RESTLESS LEGS SYNDROME [G25.81] BONE AND [...] Encounter Status:Closed by ADONAY MARQUEZ on 06/23/24 [facility] 06-02-2024 CNPN Telephone (FPWADS) TENA CANNON ([id number]) 1940 F Date Time Provider Department 06/02/24 [...] calling: self Call patient at: at home [phone] (home) [phone] (cell) Was an appointment scheduled: No Closing statement: Results or non-symptom based questions: Thank you for calling [facility], your call will be returned within the [...] TEARS OPHTHALMIC) Use in eyes. 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 Normal [facility] Telephone (FAMPST) CANNON,TENA M ([id number]) 1940 F Date Time Provider Department 06/02/24 [...] calling: self Call patient at: at home [phone] (home) [phone] (cell) Was an appointment scheduled: No Closing statement: Results or non-symptom based questions: Thank you for calling [facility], your call will be returned within the next business day. Norma Melissa [facility] Malika Sheikh LPN 06/03/2024 8:36 AM Signed [...] Fully Assessed Reason for Visit: Patient Question [1597] Prescriptions as of 06/03/2024 - esomeprazole (NEXIUM) [...] TEARS OPHTHALMIC) Use in eyes. - rutin/hesp/bioflav/C/h [id number] (BIOFLEX ORAL) Take 1 capsule by mouth [...] LOWER LEG [M25.569] 01/22/2007 VERTEBRAL FX NOS-CLOSED [[id number]] 03/24/2007 RESTLESS LEGS SYNDROME [G25.81] BONE AND CARTILAGE DIS NOS [M89.9, M94.9] PAIN IN LIMB [M79.609] 11/22/2008 Deformity of ankle and foot, acquired [M21.969] 11/22/2008 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, M21.6X9] 11/27/2008 Poliomyelitis osteopathy of multiple sites (HCC*11/27/2008 Sleep apnea [G47.30] 04/15/2010 02/01/2019 Vitamin D Deficiency [E55.9] 04/15/2010 Osteopenia [M85.80] 04/15/2010 Incontinence [R32] 07/19/2012 Fracture of L1 vertebra ([facility]) [S32.019A] 06/02/2014 02/01/2019 Lumbar radiculopathy [M54.16] 06/03/2014 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 Normal [facility] Agustina 05-18-2024 ANTONYN Telephone (FPWAANA M) TENA CANNON ([id number]) 1940 F Date Time Provider Department 05/18/24 [...] doctor since December. Please advise her at [phone] Adonay Marquez LPN 05/18/2024 11:53 AM Signed [...] LOWER LEG [M25.569] 01/22/2007 VERTEBRAL FX NOS-CLOSED [[id number]] 03/24/2007 RESTLESS LEGS SYNDROME [G25.81] BONE AND CARTILAGE DIS NOS [M89.9, M94.9] PAIN IN LIMB [M79.609] 11/22/2008 Deformity of ankle and foot, acquired [M21.969] 11/22/2008 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, M21.6X9] 11/27/2008 Poliomyelitis osteopathy of multiple sites (HCC*11/27/2008 Sleep apnea [G47.30] 04/15/2010 02/01/2019 Vitamin D Deficiency [E55.9] 04/15/2010 Osteopenia [M85.80] 04/15/2010 Incontinence [R32] 07/19/2012 Fracture of L1 vertebra ([facility]) [S32.019A] 06/02/2014 02/01/2019 Lumbar radiculopathy [M54.16] 06/03/2014 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 Normal [facility] 25-hydroxyvitamin D3 [Mass/V ol]on 03-03-2024 Interpretation and review of laboratory results Normal [facility] Therapy is based on measurement of Total 25-OHD with the following classification levels: Less than 20 ng/mL: Indicative of Vit D deficiency 20-30 ng/mL: Suggests Vit D insufficiency Optimal: Greater than or equal to 30 ng/mL Test performed by Triage Competitive Immunoassay, measuring Total Vitamin D, not individual fractions. [facility] CBC (HEMOGRAM)on 03-03-2024 Erythrocyte distribution width (RBC) [Ratio] 12.3 % Normal 11.5-15.0 [facility] Comment on above: Performed By: #### L AB294 #### Band Instrument Maker: JEAN PIERRE CA ([id number]) [employer] (SWRLAB) [address] [place] [address] Hematocrit (Bld) [Volume fraction] 40.5 % Normal 35.0-47.0 [facility] Comment on above: Performed By: #### L AB294 #### Band Instrument Maker: JEAN PIERRE CA ([id number]) [facility] (SWRLAB) [address] [place] [address] Hemoglobin (Bld) [Mass/Vol] 14.1 g/dL Normal 11.7-16.0 [facility] Comment on above: Performed By: #### L AB294 #### Band Instrument Maker: JENA PIERRE CA ([id number]) [facility] (SWRLAB) [address] [place] [address] MCH (RBC) [Entitic mass] 31.7 pg Normal 26.0-34.0 [facility] Comment on above: Performed By: #### L AB294 #### Band Instrument Maker: JEAN PIERRE CA ([id number]) [facility] (SWRLAB) [address] [place] [address] MCHC 34.8 % Normal 30.5-36.0 [facility] Comment on above: Performed By: #### L AB294 #### Band Instrument Maker: JEAN PIERRE CA ([id number]) [facility] (SWRLAB) [address] [place] [address] MCV (RBC) [Entitic vol] 91.0 fL Normal 77.0-99.0 [facility] Comment on above: Performed By: #### L AB294 #### Band Instrument Maker: JEAN PIERRE CA ([id number]) [facility] (SWRLAB) [address] [place] [address] Platelet mean volume (Bld) [Entitic vol] 11.2 fL Normal 9.0-12.7 [facility] Comment on above: Result Comment: MPV is a calculated measurement using platelet volume ratio Performed By: #### L AB294 #### Band Instrument Maker: JEAN PIERRE CA ([id number]) [facility] (SWRLAB) [address] [place] [address] Platelets (Bld) [#/Vol] 177 10*3/uL Normal 140-440 [facility] Comment on above: Performed By: #### L AB294 #### Band Instrument Maker: JEAN PIERRE CA ([id number]) [facility] [employer] (SWRLAB) [address] [place] [address] RBC (Bld) [#/Vol] 4.45 10*6/uL Normal 3.80-5.20 [facility] Comment on above: Performed By: #### L AB294 #### Band Instrument Maker: JEAN PIERRE CA ([id number]) [facility] (SWRLAB) [address] [place] [address] WBC (Bld) [#/Vol] 3.7 10*3/uL Normal 3.6-10.7 [facility] Comment on above: Performed By: #### L AB294 #### Band Instrument Maker: JEAN PIERRE CA ([id number]) [facility] (SWRLAB) [address] [place] [address] CBC panel Auto (Bld)on 03-03 Erythrocyte distribution width (RBC) [Ratio] 12.3 % 11.5 - 15.0 % [facility] Hematocrit (Bld) [Volume fraction] 40.5 % 35.0 - 47.0 % [facility] Hemoglobin (Bld) [Mass/Vol] 14.1 g/dL 11.7 - 16.0 g/dL [facility] Interpretation and review of laboratory results Normal [facility] MCH (RBC) [Entitic mass] 31.7 pg 26. 0 - 34.[address] [facility] MCHC (RBC) [Mass/Vol] 34.8 % 30.5 - 36.0 % [facility] MCV (RBC) [Entitic vol] 91 fL 77.0 - 99.[address] [facility] Platelet mean volume (Bld) [Entitic vol] 11.2 fL 9.0 - 12.[address] [facility] Comment on above: MPV is a calculated measurement using platelet volume ratio Platelets (Bld) [#/Vol] 177 10*3/uL 140 - 440 10*3/uL [facility] RBC (Bld) [#/Vol] 4.45 10*6/uL 3.80 - 5.2 0 10*6/uL [facility] WBC (Bld) [#/Vol] 3.7 10*3/uL 3.6 - 10.7 10*3/uL [facility] COMPREHENSIVE METABOLIC PANE Kojo 03-03-2024 Albumin [Mass/Vol] 4.1 g/dL Normal 3.5-5.0 [facility] Comment on above: Performed By: #### Safia AB17, LAB18 #### Band Instrument Maker: JEAN PIERRE CA ([id number]) [facility] JETERDAPHNIE RITTMAN (SWRLAB) [address] ALP [Catalytic activity/Vol] 69 U/L Normal 38-126 [facility] Comment on above: Performed By: #### Safia AB17, LAB18 #### Band Instrument Maker: JEAN PIERRE CA ([id number]) [facility] JETERDAPHNIE RITTMAN (SWRLAB) [address] ALT [Catalytic activity/Vol] 18 U/L Normal 0-34 [facility] Comment on above: Performed By: #### Safia AB17, LAB18 #### Band Instrument Maker: JEAN PIERRE CA ([id number]) [facility]ENTERA DAPHNIE RITTMAN (SWRLAB) [address] Anion gap [Moles/Vol] 7 mmol/L Normal 3-13 [facility] Comment on above: Performed By: #### L AB17, LAB18 #### Band Instrument Maker: JEAN PIERRE CA ([id number]) [facility]ENTERA DAPHNIE RITTMAN (SWRLAB) [address] [place] [address] [place] AST [Catalytic activity/Vol] 25 U/L Normal 15-46 [facility] Comment on above: Performed By: #### Safia WHITFIELD17, LAB18 #### Band Instrument Maker: JEAN PIERRE CA ([id number]) [facility]ENTER[facility] ELLER [employer] (SWRLAB) [address] [place] [address] [place] Bilirubin [Mass/Vol] 0.6 mg/dL Normal 0.2-1.3 [facility] Comment on above: Performed By: #### Safia AB17, LAB18 #### Band Instrument Maker: JEAN PIERRE CA ([id number]) [facility] [employer] (SWRLAB) [address] Calcium [Mass/Vol] 9.8 mg/dL Normal 8.4-10.4 [facility] Comment on above: Performed By: #### Safia ORTIZ, LAB18 #### Band Instrument Maker: JEAN PIERRE CA ([id number]) [facility] [employer] (SWRLAB) [address] [place] [address] [place] Chloride [Moles/Vol] 102 mmol/L Normal 98-107 [facility] Comment on above: Performed By: #### L [id number], [id number] #### Band Instrument Maker: JEAN PIERRE CA ([id number]) [facility]ENTER[facility] [facility] (SWRL[employer]) [address] [place] [address] [place] CO2 [Moles/Vol] 31 mmol/L High 22-30 [facility] Comment on above: Performed By: #### L AB17, [id number] #### Band Instrument Maker: JEAN PIERRE CA ([id number]) [facility]ENTER[facility] [facility] (SWRL[employer]) [address] [place] [address] [place] Creatinine [Mass/Vol] 0.45 mg/dL Low 0.52-1.04 [facility] Comment on above: Performed By: #### L AB17, [id number] #### Band Instrument Maker: JEAN PIERRE CA ([id number]) [facility]ENTER[facility] ([employer]) [address] GLOMERULAR FILTRATION RATE ML/MIN/1.73 SQ M.PREDICTED >90.0 Normal >60.0 [facility] Comment on above: Result Comment: Calc ulation based on the Chronic Kidney Disease Epidemiology Collaboration (CKD-EPI) equation refit without adjustment for race Performed By: #### Safia [id number], [id number] #### Band Instrument Maker: JEAN PIERRE CA ([id number]) [facility] [employer] (SWRLAB) [address] [place] [address] [place] Glucose [Mass/Vol] 87 mg/dL Normal 70-100 [facility] Comment on above: Performed By: #### Safia ORTIZ, [id number] #### Band Instrument Maker: JEAN PIERRE CA ([id number]) [facility] [facility] (SWRLAB) [address] [place] [address] [place] Potassium [Moles/Vol] 4.2 mmol/L Normal 3.5-5.1 [facility] Comment on above: Performed By: #### Safia WHITFIELD17, [id number] #### Band Instrument Maker: JEAN PIERRE CA ([id number]) [facility] [employer] [facility] (SWRLAB) [address] [place] [address] [place] Protein [Mass/Vol] 7.1 g/dL Normal 6.3-8.2 [facility] Comment on above: Performed By: #### Safia AB17, LAB18 #### Band Instrument Maker: JEAN PIERRE CA ([id number]) [facility] [employer] [facility] (SWRLAB) [address] [place] [address] [place] Sodium [Moles/Vol] 140 mmol/L Normal 135-145 [facility] Comment on above: Performed By: #### L AB17, LAB18 #### Band Instrument Maker: JEAN PIERRE CA ([id number]) [facility] [employer] [facility] (SWRLAB) [address] [place] [address] [place] Urea nitrogen [Mass/Vol] 15 mg/dL Normal 7-17 [facility] Comment on above: Performed By: #### L AB17, LAB18 #### Band Instrument Maker: JEAN PIERRE CA ([id number]) [facility] [employer]APH[employer]IE FORTE (SWRLAB) [address] [place] [address] Comprehensive metabolic 1998 panelon 03-03-2024 Albumin [Mass/Vol] 4.1 g/dL 3.5 - 5.0 g/dL [facility] ALP [Catalytic activity/Vol] 69 U/L 38 - 126 U/L [facility] ALT [Catalytic activity/Vol] 18 U/L 0 - 34 U/L [facility] Anion gap [Moles/Vol] 7 mmol/L 3 - 13 mmol/L [facility] AST [Catalytic activity/Vol] 25 U/L 15 - 46 U/L [facility] Bilirubin [Mass/Vol] 0.6 mg/dL 0.2 - 1 .3 mg/dL [facility] Calcium [Mass/Vol] 9.8 mg/dL 8.4 - 10. 4 mg/dL [facility] Chloride [Moles/Vol] 102 mmol/L 98 - 10 7 mmol/L [facility] CO2 [Moles/Vol] 31 mmol/L High 22 - 30 mmol/L [facility] Creatinine [Mass/Vol] 0.45 mg/dL Low 0.52 - 1.04 mg/dL [facility] GFR/1.73 sq M.predicted (S/P/Bld) [Vol rate/Area] - PINF [facility] Comment on above: Calculation based on the Chronic Kidney Disease Epidemiology Collaboration (CKD-EPI) equation refit without adjustment for race Glucose [Mass/Vol] 87 mg/dL 70 - 100 mg/dL [facility] Potassium [Moles/Vol] 4.2 mmol/L 3.5 - 5.1 mmol/L [facility] Protein [Mass/Vol] 7.1 g/dL 6.3 - 8.2 g/dL [facility] Sodium [Moles/Vol] 140 mmol/L 135 - 145 mmol/L [facility] Urea nitrogen [Mass/Vol] 15 mg/dL 7 - 17 mg/d L [facility] HEMOGLOBIN A1Con 03-03-2024 Glucose [Mass/Vol] 85 mg/dL Normal [facility] Comment on above: Performed By: #### L [id number] #### Band Instrument Maker: JEAN PIERRE CA ([id number]) [facility] [employer] [facility] (SWRLAB) [address] [place] [address] HbA1c (Bld) [Mass fraction] 4.6 % Normal <5.7 [facility] Comment on above: Result Comment: Norm al less than 5.7% Prediabetes 5.7% to 6.4% Diabetes 6.5% or higher --HgbA1C levels may not be accurate in patients who have renal disease, received recent blood transfusions, are anemic, or who have dyshemoglobinemia. Performed By: #### L AB90 #### Band Instrument Maker: JEAN PIERRE CA ([id number]) [facility]ENTERUr[facility] [employer] [facility] (SWRLAB) [address] [place] [address] Hemoglobin A1con 03-03-2024 Average glucose Estimated from glycated hemoglobin (Bld) [Mass/Vol] 85 mg/dL [facility] HbA1c (Bld) [Mass fraction] 4.6 % NINF - 5.7 % [facility] Comment on above: Normal less than 5.7 % Prediabetes 5.7% to 6.4% Diabetes 6.5% or higher --HgbA1C levels may not be accurate in patients who have renal disease, received recent blood transfusions, are anemic, or who have dyshemoglobinemia. [facility] LIPID PANELon 03-03-2024 Cholesterol [Mass/Vol] 182 mg/dL Normal <200 [facility] Comment on above: Performed By: #### L AB17, LAB18 #### Band Instrument Maker: JEAN PIERRE CA ([id number]) [facility]ENTERUr[facility] [employer] (SWRLAB) [address] [place] [address] [place] Cholesterol in HDL [Mass/Vol] 69 mg/dL High 40-60 [facility] Comment on above: Performed By: #### L AB17, LAB18 #### Band Instrument Maker: JEAN PIERRE CA ([id number]) [facility]ENTERUr[facility] [employer] [facility] (SWRLAB) [address] [place] [address] Cholesterol.total/Choles terol in HDL [Mass ratio] 3 {ratio} Normal [facility] Comment on above: Result Comment: Ref Range: < 3 Low Risk for CHD 3-6 Mod Risk for CHD > 6 High Risk for CHD Performed By: #### L AB17, LAB18 #### Band Instrument Maker: JEAN PIERRE CA ([id number]) [facility]ENTERA DAPHNIE RITTMAN (SWRLAB) [address] LOW DENSITY LIPOPROTEIN 92 mg/dL Normal 0-<100 [facility] Comment on above: Performed By: #### L AB17, LAB18 #### Band Instrument Maker: JEAN PIERRE CA ([id number]) [facility]A DAPHNIE RITTMAN (SWRLAB) [address] Triglyceride [Mass/Vol] 107 mg/dL Normal <150 [facility] Comment on above: Performed By: #### L AB17, LAB18 #### Band Instrument Maker: JEAN PIERRE CA ([id number]) [facility]ENTERA DAPHNIE RITTMAN (SWRLAB) [address] [place] [address] Lipid 1996 panelon Cholesterol [Mass/Vol] 182 mg/dL NINF - 200 mg/dL [facility] [employer] Cholesterol in HDL [Mass/Vol] 69 mg/dL High 40 - 60 mg/dL [facility] [employer] Cholesterol in LDL [Mass/Vol] 92 mg/dL 0 - <100 [facility] [employer] Cholesterol.total/Choles terol in HDL [Mass ratio] 3 {ratio} [facility] [employer] Comment on above: Ref Range: < 3 Low Risk for CHD 3-6 Mod Risk for CHD > 6 High Risk for CHD Triglyceride [Mass/Vol] 107 mg/dL NINF - 150 mg/dL [facility] [employer] No Panel Informationon 03-03 Interpretation and review of laboratory results Abnormal [facility] VITAMIN D DEFICIENCY SCREENI NG (VIT D 25)on 03-03-2024 VIT D 25-OH, TOTAL 65 ng/mL Normal 30-100 [facility] Comment on above: Result Comment: JOHN PAUL Luo COMMENTS: Therapy is based on measurement of Total 25-OHD with the following classification levels: Less than 20 ng/mL: Indicative of Vit D deficiency 20-30 ng/mL: Suggests Vit D insufficiency Optimal: Greater than or equal to 30 ng/mL Test performed by Triage Competitive Immunoassay, measuring Total Vitamin D, not individual fractions. Performed By: #### L [id number] #### Band Instrument Maker: MAT HOLLIDAY ([id number]) [facility] (SBHLAB) [address] Vitamin D Deficiency Screeni ng (Vit D 25)on 03-03-2024 25-hydroxyvitamin D3 [Mass/Vol] 65 ng/mL 30 - 100 ng/mL [facility] Surgical Tissue Examon 09-07 Surgical Tissue Exam Test performed at [place] [address] NAME: TENA CANNON REQUESTING: MARBELLA BRUNSON M.D. [...] of immunohistochemical tests have been determined by [facility]'s Department of Pathology and Laboratory Medicine in a manner consistent with CLIA requirements. One or more of these tests have not been cleared or approved by the FDA. [facility] is regulated under CLIA as [...] PRINTED: 09/09/2018 Page 1 of 1 Normal [facility] Comment on above: Performed By: #### S URG #### [place] [address] Hemogramon 08-05-2018 Erythrocyte distribution width Auto Ratio (RBC) 13.7 % Normal 11.5-14.5 [facility] Comment on above: Performed By: #### H EMOG ####[facility] [place] [address] Hematocrit Auto Volume Fraction (Bld) 40.1 % Normal 35.0-47.0 [facility] Comment on above: Performed By: #### H EMOG ####[facility] [place] [address] Hemoglobin mass conc (Bld) 13.0 g/dL Normal 11.7-16.0 [facility] Comment on above: Performed By: #### H EMOG ####[facility] [place] [address] MCH Auto Entitic mass (RBC) 29.0 pg Normal 26.0-34.0 [facility] Comment on above: Performed By: #### H EMOG ####[facility] [place] [address] MCHC Auto mass conc (RBC) 32.4 % Normal 32.0-36.0 [facility] Comment on above: Performed By: #### H EMOG ####[facility] [place] [address] MCV Auto Entitic volume (RBC) 89.5 fL Normal 79.0-98.0 [facility] Comment on above: Performed By: #### H EMOG ####[place] [address] [place] [address] Platelet mean volume Auto Entitic volume (Bld) 8.7 fL Normal 7.4-10.4 [facility] Comment on above: Performed By: #### H JOSE ####[facility] [place] [address] Platelets Auto #/vol (Bld) 260 10*3/uL Normal 140-440 [facility] Comment on above: Performed By: #### H JOSE ####[place] [address] [place] [address] RBC Auto #/vol (Bld) 4.48 10*6/uL Normal 3.80-5.20 [facility] Comment on above: Performed By: #### H JOSE ####[place] [address] [place] [address] WBC Auto #/vol (Bld) 5.7 10*3/uL Normal 3.6-10.7 [facility] Comment on above: Performed By: #### H JOSE ####[place] [address] [place] [address] Hemogramon 05-15-2018 Erythrocyte distribution width Auto Ratio (RBC) 13.4 % Normal 11.5-14.5 [facility] Comment on above: Performed By: #### CONRADO SMITH ####[address] [place] [address] Hematocrit Auto Volume Fraction (Bld) 37.2 % Normal 35.0-47.0 [facility] Comment on above: Performed By: #### H CONRADO GARCIA ####[place] [address] [place] [address] Hemoglobin mass conc (Bld) 12.8 g/dL Normal 11.7-16.0 [facility] Comment on above: Performed By: #### H CONRADO GARCIA ####[place] [address] [place] [address] MCH Auto Entitic mass (RBC) 30.5 pg Normal 26.0-34.0 [facility] Comment on above: Performed By: #### CONRADO SMITH ####[place] [address] [place] [address] MCHC Auto mass conc (RBC) 34.3 % Normal 32.0-36.0 [facility] Comment on above: Performed By: #### H JOSE FEIBC ####[facility] [place] [address] MCV Auto Entitic volume (RBC) 88.8 fL Normal 79.0-98.0 [facility] Comment on above: Performed By: #### H JOSE FEIBC ####[facility] [place] [address] Platelet mean volume Auto Entitic volume (Bld) 9.0 fL Normal 7.4-10.4 [facility] Comment on above: Performed By: #### H JOSE FEIBC ####[facility] [place] [address] Platelets Auto #/vol (Bld) 199 10*3/uL Normal 140-440 [facility] Comment on above: Performed By: #### H JOSE FEIBC ####[facility] [place] [address] RBC Auto #/vol (Bld) 4.19 10*6/uL Normal 3.80-5.20 [facility] Comment on above: Performed By: #### H JOSE FEIBC ####[facility] [place] [address] WBC Auto #/vol (Bld) 7.1 10*3/uL Normal 3.6-10.7 [facility] Comment on above: Performed By: #### H JOSE FEIBC ####[facility] [place] [address] Iron AND TIBCon 05-15-2018 Saturation 13 % Low 15-50 [facility] Comment on above: Performed By: #### H JOSE FEIBC ####[facility] [place] [address] Total Iron Binding Cap. 269 ug/dL Normal 261-497 [facility] Comment on above: Performed By: #### H JOSE FEIBC ####[facility] [place] [address] Iron, Total 35 ug/dL Low 37-170 [facility] Comment on above: Performed By: #### H CONRADO GARCIA ####[facility] [place] [address] Vital Signs Date Time Vital Sign Value Performing Clinician Amando orellana 03-25-2025 19:04-0400 Body temperature 98.4 [degF] Chey Kumar MD [facility] 03-25-2025 19:04-0400 Diastolic blood pressure 74 mm[Hg] Chey Kumar MD [facility] 03-25-2025 19:04-0400 Heart rate 83 /min Chey Kumar MD [facility] 03-25-2025 19:04-0400 Respiratory rate 18 /min Chey Kumar MD [facility] 03-25-2025 19:04-0400 SaO2% (BldA) [Mass fraction] 97 % Chey Kumar MD [facility] 03-25-2025 19:04-0400 Systolic blood pressure 125 mm[Hg] Chey Kumar MD [facility] 03-25-2025 16:46-0400 Body height 142.01 cm Chey Kumar MD [facility] 03-25-2025 16:46-0400 Body mass index (BMI) [Ratio] 34 kg/m2 Chey Kumar MD [facility] 03-25-2025 16:46-0400 Body weight 68.5 kg Chey Kumar MD [facility] 02-18-2025 13:04-0400 Body height 142.24 cm Chey Kumar MD [facility] 02-15-2025 17:53-0400 Body height 142.24 cm Chey Kumar MD [facility] 02-15-2025 17:51-0400 Body height 142.24 cm Chey Kumar MD [facility] 02-15-2025 17:27-0400 Body height 142.24 cm Chey Kumar MD [facility] 02-07-2025 11:01-0400 Body temperature 97.11 [degF] Narciso Sherman PA-C Work Phone: [facility] 02-07-2025 11:01-0400 Diastolic blood pressure 72 mm[Hg] Narciso Sherman PA-C Work Phone: [facility] 02-07-2025 11:01-0400 Heart rate 102 /min Narciso Sherman PA-C Work Phone: [facility] 02-07-2025 11:01-0400 Respiratory rate 14 /min Narciso Sherman PA-C Work Phone: [facility] 02-07-2025 11:01-0400 SaO2% (BldA) [Mass fraction] 96 % Narciso Sherman PA-C Work Phone: [facility] 02-07-2025 11:01-0400 Systolic blood pressure 110 mm[Hg] Narciso Sherman PA-C Work Phone: [facility] 09-16-2024 11:44-0500 Diastolic blood pressure 70 mm[Hg] Sahra Guy MD Work Phone: [facility] 09-16-2024 11:44-0500 Systolic blood pressure 112 mm[Hg] Sahra Guy MD Work Phone: [facility] 09-16-2024 11:28-0500 Heart rate 76 /min Sahra Guy MD Work Phone: [facility] 08-23-2024 10:39-0500 Diastolic blood pressure 74 mm[Hg] Sahra Guy MD Work Phone: [facility] 08-23-2024 10:39-0500 Systolic blood pressure 116 mm[Hg] Sahra Guy MD Work Phone: [facility] 08-23-2024 10:07-0500 Body height 142.2 cm Sahra Guy MD Work Phone: [facility] 08-23-2024 10:07-0500 Heart rate 60 /min Sahra Guy MD Work Phone: [facility] 08-23-2024 10:07-0500 SaO2% (BldA) [Mass fraction] 95 % Sahra Guy MD Work Phone: [facility] 08-11-2024 13:37-0500 Diastolic blood pressure 77 mm[Hg] Leonid Mel STAINING MACHINE OPERATOR.SUPERVISOR ORCHARD Work Phone: [facility] 08-11-2024 13:37-0500 Heart rate 66 /min Leonid Mel STAINING MACHINE OPERATOR.CN P Work Phone: [facility] 08-11-2024 13:37-0500 SaO2% (BldA) [Mass fraction] 98 % Leonid Mel STAINING MACHINE OPERATOR.SUPERVISOR ORCHARD Work Phone: [facility] 08-11-2024 13:37-0500 Systolic blood pressure 146 mm[Hg] Leonid Mel STAINING MACHINE OPERATOR.SUPERVISOR ORCHARD Work Phone: [facility] 12-10-2023 09:18-0400 Body height 142.2 cm Sahra Guy MD Work Phone: [facility] 12-10-2023 09:18-0400 Diastolic blood pressure 81 mm[Hg] Sahra Guy MD Work Phone: [facility] 12-10-2023 09:18-0400 Heart rate 68 /min Sahra Guy MD Work Phone: [facility] 12-10-2023 09:18-0400 SaO2% (BldA) [Mass fraction] 98 % Sahra Guy MD Work Phone: [facility] 12-10-2023 09:18-0400 Systolic blood pressure 156 mm[Hg] Sahra Guy MD Work Phone: [facility] 04-03-2023 13:58-0400 Body height 139.7 cm Ken Trent MD Work Phone: [facility] 04-03-2023 13:58-0400 Diastolic blood pressure 90 mm[Hg] Ken Trent MD Work Phone: [facility] 04-03-2023 13:58-0400 Heart rate 69 /min Ken Trent MD Work Phone: [facility] 04-03-2023 13:58-0400 Systolic blood pressure 137 mm[Hg] Ken Trent MD Work Phone: [facility] 03-10-2023 09:59-0400 Body height 142.2 cm Sahra Guy MD Work Phone: [facility] 03-10-2023 09:59-0400 Diastolic blood pressure 67 mm[Hg] Sahra Guy MD Work Phone: [facility] 03-10-2023 09:59-0400 Heart rate 70 /min Sahra Guy MD Work Phone: [facility] 03-10-2023 09:59-0400 SaO2% (BldA) [Mass fraction] 96 % Sahra Guy MD Work Phone: [facility] 03-10-2023 09:59-0400 Systolic blood pressure 146 mm[Hg] Sahra Guy MD Work Phone: [facility] 10-29-2021 10:36-0400 Diastolic blood pressure 60 mm[Hg] Sahra Guy MD Work Phone: [facility] 10-29-2021 10:36-0400 Systolic blood pressure 120 mm[Hg] Sahra Guy MD Work Phone: [facility] 10-29-2021 09:52-0400 Heart rate 71 /min Sahra Guy MD Work Phone: [facility] Encounters Encounter Date Encounter Type Care Provider Facility Start: 06-07-2025 ambulatory Efewongbe Oleghe OLS Fa cility:[facility] Start: 05-09-2025 ambulatory Efewongbe Oleghe Facili ty:[facility] Start: 05-03-2025 ambulatory Efewongbe Oleghe OLS Fa cility:[facility] Start: 04-11-2025 ambulatory Efgarfield Menge Facili ty:[facility] Start: 04-11-2025 End: 04-11-2025 ambulatory Chey Kumar Facility:[facility] Start: 04-05-2025 ambulatory Efadebe Yusrae Facili ty:[facility] Start: 04-05-2025 [facility] Start: 03-30-2025 End: 03-30-[address] Chepe Melo MD -[facility] Start: 03-30-2025 End: 03-30-2025 ambulatory Chey Kumar MD -[facility] Start: 03-25-2025 End: 03-25-2025 Emergency department patient visit Chey Kumar MD -Emergency Department Work Phone: Start: 03-24-2025 End: 03-24-2025 [facility] Start: 03-24-2025 End: 03-24-2025 [facility] Work [facility]: Start: 03-22-2025 End: 03-22-2025 Telephone encounter Sahra Guy MD Work Phone: [facility] [place] Comment on above: FYI-No Action Needed Start: 03-20-2025 End: 03-20-2025 ambulatory [facility] Start: 03-20-2025 End: 03-20-2025 [facility] Work Phone: Start: 03-07-2025 End: 03-07-2025 Patient [facility] Work Phone: Start: 03-07-2025 End: 03-07-2025 ambulatory [facility]y [facility] Start: 03-07-2025 [facility] Start: 02-28-2025 ambulatory Chey THOMAS Fa cility:[facility] Start: 02-28-2025 Registered Referred Chey Kumar MD [facility] Start: 02-21-2025 ambulatory Chey Kumar OLS Fa cility:[facility] Start: 02-21-2025 [facility] Start: 02-14-2025 End: 02-14-2025 ambulatory Chey Kumar MD [facility] Start: 02-14-2025 End: 02-14-[address] Chey Kumar MD -[facility] Work Phone: Start: 02-14-2025 ambulatory Chey THOMAS Fa cility:[facility] Start: 02-14-2025 Registered Referred Chey Kumar MD [facility] Start: 02-10-2025 End: 02-14-2025 Telephone encounter Marilyn Santos PA-C Work Phone: Urology Comment on above: Results; Orders Start: 02-09-2025 End: 02-09-2025 Orders Only Marilyn Santos PA-C Work Phone: Urology Start: 02-09-2025 Registered Referred Chey Kumar MD [facility] Start: 02-08-2025 End: 02-08-2025 Telephone encounter Narciso Sherman PA-C Work Phone: Urology Comment on above: Car Starter - O ther Start: 02-07-2025 End: 02-07-2025 Patient encounter procedure Narciso Sherman PA-C Work Phone: Urology Comment on above: Urinary tract infect ion without hematuria, site unspecified (Primary Dx); Frequent urination; Burning with urination; Compression fracture of thoracic vertebra with routine healing, unspecified thoracic vertebral level, subsequent encounter; Screening for genitourinary condition Start: 02-07-2025 End: 02-07-2025 ambulatory SAHRA GUY Facility:[facility] Start: 02-07-2025 Registered Referred Chey Bell Start: 02-06-2025 End: 02-07-2025 Chart abstracting Narciso Sherman PA-C Work Phone: Urology Start: 01-31-2025 ambulatory Chey Kumar WILLIAM Fa cility:[facility] Start: 01-31-2025 Registered Referred Chey Bell Start: 01-24-2025 End: 01-24-2025 [facility]: Start: 01-24-2025 End: 01-24-2025 [facility] Start: 01-24-2025 Registered Referred Chey Bell Start: 01-19-2025 End: 01-19-2025 ambulatory [facility] Start: 01-19-2025 End: 01-19-2025 [facility] Work Phone: Start: 01-17-2025 ambulatory Melindabrittany THOMAS Fa cility:[facility] Start: 01-17-2025 Registered Referred Chey Bell Start: 01-10-2025 End: 01-10-2025 [facility] Work Phone: Start: 01-10-2025 End: 01-10-2025 ambulatory [facility] Start: 01-10-2025 Registered Referred Chey Bell Start: 01-09-2025 End: 02-18-2025 [facility] Start: 01-09-2025 End: 02-18-2025 [facility] Comment on above: Population Health Na vigation Outreach [facility] Start: 01-03-2025 ambulatory Chey Kumar OLS Fa cility:[facility] Start: 01-03-2025 Registered Referred Chey Bell Start: 12-28-2024 End: 12-28-2024 Patient encounter procedure [facility] Work Phone: Start: 12-28-2024 End: 12-28-2024 ambulatory [facility] Start: 12-28-2024 Registered Referred Chey Bell Start: 12-27-2024 ambulatory Chey THOMAS Fa cility:[facility] Start: 12-27-2024 Registered Referred Chey Bell Start: 12-22-2024 End: 12-22-2024 ambulatory [facility] Start: 12-22-2024 End: 12-22-2024 Patient encounter procedure Roxanne [facility] Work Phone: Start: 12-20-2024 End: 12-20-[address] Chey Kumar MD [facility] Work Phone: Start: 12-20-2024 End: 12-20-2024 ambulatory Chey Kumar [facility] Start: 12-20-2024 Registered Referred Chey Bell Start: 12-12-2024 End: 12-19-2024 Evaluation and management of inpatient SAHRA GUY Facility:[facility] Start: 12-08-2024 End: 12-10-2024 ambulatory Sahra Guy MD Work Phone: [facility] Comment on above: nausea and barely ea ting Start: 12-08-2024 End: 12-09-2024 Telephone encounter Sahra Guy MD Work Phone: [facility] Comment on above: Insurance Authorizat ion Start: [...] encounter Sahra Guy MD Work Phone: [facility] Comment on above: Received Outside [facility] [facility] OT Evaluation performed no further treatment. 10/20/2024) Start: 10-19-2024 End: 10-19-2024 Telephone encounter Sahra Guy MD Work Phone: [facility] Comment on above: Orders ([facility]) Start: 10-12-2024 End: 10-12-2024 Telephone encounter Sahra Guy MD Work Phone: [facility] Comment on above: PT Eval Start: 10-11-2024 End: 10-11-2024 Telephone encounter Sahra Guy MD Work Phone: [facility] Comment on above: Orders Start: 10-06-2024 End: 11-12-2024 Telephone encounter Sahra Guy MD Work Phone: [facility] Comment on above: Patient Question (Sl ipped in shower) Start: 09-23-2024 End: 09-26-2024 ambulatory Sahra Guy MD Work Phone: Family Practice Comment on above: Nurse Triage Call; R eturn Call Request Start: 09-23-2024 End: 09-23-2024 Telephone encounter Sahra Guy MD Work Phone: Family Practice Comment on above: Received Outside [facility] Records ([facility] Face to Face Encounter Documentation encounter 08/23/2024) Start: 09-16-2024 End: 09-16-2024 ambulatory SAHRA GUY Facility:[facility] Start: 09-16-2024 End: 09-16-2024 Office outpatient visit 25 minutes Sahra Guy MD Work Phone: [facility] Comment on above: Falling episodes (Pr imary Dx); Acute left-sided low back pain with left-sided sciatica; Fall from motorized wheelchair, initial encounter; Post-polio syndrome; Neck pain, chronic; Chronic hand pain, unspecified laterality Start: 09-09-2024 End: 12-09-2024 Telephone encounter Sahra Guy MD Work Phone: [facility] Comment on above: Orders; Patient Upda te (Lab orders were faxed) Hyperglycemia, unspe cified (Primary Dx); Mixed hyperlipidemia Start: 09-09-2024 End: 09-09-2024 ambulatory SAHRA GUY [facility] Start: 09-02-2024 End: 09-02-2024 Telephone encounter [...] Family Practice Comment on above: Orders ([facility] Start: 08-23-2024 End: 08-23-2024 ambulatory SAHRA GUY Facility:[facility] Start: 08-23-2024 End: 08-23-2024 Patient [...] Sahra Guy MD Work Phone: [facility] [place] Comment on above: Patient Update (At o ffice visit on 08/23/2024 please fill all Rx's that apply per patient [facility] mail order) Start: 08-15-2024 End: 08-17-2024 Telephone encounter Sahra Guy MD Work Phone: [facility] Comment on above: Orders (PT and OT) Start: 08-11-2024 End: 08-11-2024 ambulatory Sahra Guy MD Work Phone: [facility] Comment on above: Muscle Aches Start: 08-11-2024 End: 08-11-2024 Office outpatient visit 15 minutes Leonid Leal APRN.CNP Work Phone: [facility] Comment on above: Acute left-sided low back pain with left-sided sciatica (Primary Dx) Start: 07-05-2024 End: 07-05-2024 Refill Sahra Guy MD Work Phone: [facility] Comment on above: Refill Request Start: 06-23-2024 End: 06-23-2024 Telephone encounter Sahra Guy MD Work Phone: [facility] Comment on above: Orders ([facility] [place]) Start: 06-20-2024 End: 06-20-2024 Refill Sahra Guy MD Work Phone: [facility] Comment on above: Refill Request Start: 06-02-2024 End: 06-03-2024 Telephone encounter Sahra Guy MD Work Phone: [facility] Comment on above: Question Patient Question Start: 05-18-2024 End: 05-18-2024 Telephone encounter Sahra Guy MD Work Phone: [facility] Comment on above: RSV vaccine Start: 04-06-2024 End: 04-06-2024 Refill Sahra Guy MD Work Phone: [facility] Comment on above: Refill Request Start: 03-07-2024 Telephone encounter Sarha Guy MD Work Phone: [facility] Comment on above: Results Start: 03-03-2024 End: 06-02-2024 Transcribe Orders Leonid Alvin Patel STAINING MACHINE OPERATOR - SUPERVISOR ORCHARD Work Phone: [facility] Comment on above: Hyperglycemia, unspe cified (Primary Dx); Mixed hyperlipidemia; Vitamin D deficiency, unspecified; Other specified disorders of bone density and structure, unspecified site Start: 02-26-2024 Telephone encounter Sahra Guy MD Work Phone: [facility] Comment on above: Orders (Labs fax to [place]) Start: 02-23-2024 Refill Sahra reed MD Work Phone: [facility] Comment on above: Refill Request Start: 01-25-2024 Refill Sahra reed MD Work Phone: [facility] Comment on above: Refill Request Start: 01-12-2024 Refill Sahra reed MD Work Phone: [facility] Comment on above: Refill Request Start: 12-10-2023 End: 12-10-2023 Patient encounter procedure Sahra Guy MD Work Phone: [facility] Comment on above: Late effects of [...] encounter Sahra Guy MD Work Phone: [facility] Comment on above: Received Outside [facility] Records ([place] [facility] I Move in Assessment 11/25/2023); Patient Update Start: 07-13-2023 Refill Leonid Duggan PRN.CNP Work Phone: [facility] Comment on above: Refill Request Start: 05-08-2023 Refill Sahra reed MD Work Phone: [facility] Comment on above: Refill Request Start: 04-23-2023 End: 04-23-2023 ambulatory [facility] Comment on above: Post-polio syndrome; Poliomyelitis osteopathy of multiple sites (HCC) Start: 04-09-2023 End: 04-09-2023 Orders Only Ken Trent MD Work Phone: [facility] Comment on above: Post-polio syndrome (Primary Dx) Car Starter - O ther Dysphagia, unspecifi ed type (Primary Dx); Post-polio syndrome Start: 04-03-2023 End: 04-03-2023 Office outpatient new 60 minutes Ken Trent MD Work Phone: [facility] Comment on above: Post-polio syndrome (Primary Dx) Start: 03-23-2023 Telephone encounter Sahra Guy MD Work Phone: [facility] Comment on above: Orders (OT referral request [place] [facility] ) Start: 03-11-2023 Refill Sahra reed MD Work Phone: [facility] Comment on above: Refill Request Start: 03-10-2023 End: 03-10-2023 Patient encounter procedure Sahra Guy MD Work Phone: [facility] Comment on above: Post-polio syndrome (Primary Dx); Poliomyelitis osteopathy of multiple sites (HCC); Late effects of acute poliomyelitis; Obesity, Class III, 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); 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); Obstructive sleep apnea on CPAP; OAB (overactive bladder); Gastroesophageal reflux disease, unspecified whether esophagitis present Start: 12-09-2022 Telephone encounter Sahra Guy MD Work Phone: [facility] Comment on above: Forms ([employer] [facility] Clearance Form ) Start: 09-30-2022 Telephone encounter Sahra Guy MD Work Phone: [facility] Comment on above: medicaiton problem Start: 09-26-2022 Telephone encounter Sahar Guy MD Work Phone: [facility] Comment on above: Results Start: 09-17-2022 ambulatory Sahra reed MD Work Phone: [facility] Comment on above: Nurse Triage Call Start: 08-01-2022 Refill Sahra reed MD Work Phone: [facility] Comment on above: Refill Request Start: 07-14-2022 Telephone encounter Sahra Guy MD Work Phone: [facility] Comment on above: Received Outside Med ical Records (Health care provider certification of disability license plates. ) Start: 06-12-2022 End: 06-12-2022 ambulatory Leonid Roach STAINING MACHINE OPERATOR.SUPERVISOR ORCHARD Work Phone: [facility] Comment on above: COVID-19 (Primary Dx ) Start: 06-12-2022 End: 06-12-2022 Telemedicine consultation with patient Leonid Roach STAINING MACHINE OPERATOR.SUPERVISOR ORCHARD Work Phone: [facility] Start: 06-11-2022 End: 06-11-2022 ambulatory Nurse Triage Aroldo/Colton Work Phone: Nurse Phone Triage Comment on above: Covid Positive Start: 06-11-2022 Telephone encounter Sahra Guy MD Work Phone: [facility] Comment on above: Covid Positive (/) Start: 04-09-2022 Telephone encounter Sahra Guy MD Work Phone: [facility] Comment on above: Results (Labs ) Start: 04-03-2022 Refill Sahra reed MD Work Phone: [facility] Comment on above: Med Change Request Start: 03-25-2022 Refill Sahra reed MD Work Phone: [facility] Comment on above: Refill Request Start: 03-19-2022 Telephone encounter Sahra Guy MD Work Phone: [facility] Comment on above: Orders (Thyroid/); P atient Question (Draw labs at the office/) Start: 12-19-2021 Telephone encounter Sahra Guy MD Work Phone: [facility] Comment on above: Request for PCP sign off (from [facility]) Start: 12-13-2021 ambulatory Nopcp (Historical) [facility] Start: 12-04-2021 Telephone encounter Sahra Guy MD Work Phone: [facility] Comment on above: Orders ([facility] 11/05/2021 - 11/25/2021) Home Care Start: 12-02-2021 Telephone encounter Sahra Guy MD Work Phone: [facility] Comment on above: Patient Update ([place]da te and orders signed and faxed to [facility]. ) Start: 11-28-2021 Telephone encounter Sahra Guy MD Work Phone: Family Medicine Comment on above: Received Outside Med ical Records ([facility] Discharge summary 11/28/2021) Start: 11-21-2021 Telephone encounter Sahra Guy MD Work Phone: [facility] Comment on above: Orders ([facility] 11/21/2021) Start: 11-20-2021 Telephone encounter Sahra Guy MD Work Phone: [facility] [place] Comment on above: Patient Update Start: 11-05-2021 Telephone encounter Sahra Guy MD Work Phone: [facility] Comment on above: Patient Update Start: 10-31-2021 Telephone encounter Leonid Low maty STAINING MACHINE OPERATOR.SUPERVISOR ORCHARD Work Phone: [facility] Comment on above: Results Start: 10-29-2021 End: 10-29-2021 Patient encounter procedure Sahra Guy MD Work Phone: [facility] Comment on above: Poliomyelitis osteop athy [...] 09-07-2018 Evaluation and management of inpatient [facility] Facility:[facility] Start: 08-05-2018 Patient encounter procedure UNKNOWN PROVIDER [facility] Start: 05-15-2018 Patient encounter procedure UNKNOWN PROVIDER [facility] Start: 10-03-2017 Patient encounter procedure UNKNOWN PROVIDER [facility] Procedures Date Procedure Procedure Detail Performing [...] daniella or Plasma Leonid Roach APRN - SUPERVISOR ORCHARD Work Phone: Start: 12-10-2023 Adult depression scr eening assessment Sahra Guy MD Work Phone: Plan of Treatment Date Care Activity Detail Author Start: 09-09-[address] [facility] Start: 03-03-[address] [facility] Start: 12-20-2027 Diabetes Screening Diabetes Screening [facility] Start: 12-09-2027 Diabetes Screening Diabetes Screening [facility] Start: 09-09-2027 Diabetes Screening Diabetes Screening [facility] Start: 08-25-2027 Diabetes Screening Diabetes Screening [facility] Start: 03-03-2027 Diabetes Screening Diabetes Screening [facility] Start: 09-25-2025 DIABETES SCREEN DIABETES SCREEN [facility] Start: 09-25-2025 Diabetes Screening Diabetes Screening [facility] Start: 09-22-2025 Medicare Annual Wellness (AWV) Medicare Annual Wellness (AWV) [facility] Start: 04-08-2025 DIABETES SCREEN DIABETES SCREEN [facility] Start: 04-03-[address] [facility] Start: 03-30-2025 L/S Spine Min 4 Views L/S Spine Min 4 Views [facility] Start: 03-30-2025 XR Spine Lumbar and Sacrum GE 4 Views [facility] Start: 03-30-2025 X-ray of lumbar spine, two or three views Lumbar Spine 2 or 3 Views [facility] Start: 03-30-2025 XR Lumbar spine 2 or 3 Views [facility] Start: 03-25-2025 [facility] Start: 01-31-2025 End: 01-31-2025 Patient encounter procedure 01/31/2025 2:00 PM EDT Office Visit Urology [address] [place] [address] Nataliya Dominguez MD [address] [place] [id number] Acute urinary retention [R33.8] Urology Comment on above: Acute urinary retention [R33.8] Start: 01-10-2025 End: 01-10-2025 Patient encounter procedure 01/10/2025 8:00 AM EDT Office Visit Gastroenterology [address] [place] [address] Kinjal Hernandes APRN.[facility] [address] [place] [address] constipation Gastroenterology Comment on above: constipation Start: 01-02-2025 End: 01-02-2025 Patient encounter procedure 01/02/2025 10:30 AM EDT Office Visit Neurology [address] [place], [place] [id number] Timothy Shine MD [address] [place], [place] [id number] 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 Start: 12-14-2024 End: 12-14-2024 Patient encounter procedure 12/14/2024 3:00 PM EDT Office Visit [facility] [address] [place] [id number] Harinder Kiran PA-C [address] [place] [id number] Acute left-sided low back pain with left-sided sciatica [M54.42] [facility] Comment on above: Acute left-sided low back pain with left -sided sciatica [M54.42] Start: 12-09-2024 Anxiety Screening Anxiety Screening [facility] Start: 12-09-2024 Depression Screening Depression Screening [facility] Start: 11-15-2024 Covid-19 Vaccine () Covid-19 Vaccine () [facility] Start: 10-29-2024 DIABETES SCREEN DIABETES SCREEN [facility] Start: 09-15-2024 End: 09-15-2024 Patient encounter procedure 09/15/2024 9:20 AM EST Office Visit Family Practice [address] [place] [address] Sahra Guy MD [address] [place] [address] follow up Family Practice Comment on above: follow up Start: 09-13-2024 End: 09-13-2024 Patient encounter procedure 09/13/2024 10:20 AM EST Office Visit Family Practice [address] [place] [address] Sahra Guy MD [address] [place] [address] [place] [address] follow up Family Practice Comment on above: follow up Start: 08-23-2024 End: 11-22-2024 Comprehensive metabolic 2000 panel - Serum or Plasma COMPREHENSIVE METABOLIC PANEL Lab Routine Hyperglycemia Expected: 08/23/2024, Expires: 11/22/2024 [facility] Work Phone: Comment on above: Expected: 08/23/2024, Expires: Start: 08-23-2024 End: 11-22-2024 Hemoglobin A1c in Blood HEMOGLOBIN A1C Lab Routine Hyperglycemia Expected: 08/23/2024, Expires: 11/22/2024 [facility] Comment on above: Expected: 08/23/2024, Expires: Start: 08-23-2024 End: 11-22-2024 Lipid 1996 panel - Serum or Plasma LIPID PANEL BASIC Lab Routine Hyperlipidemia, mixed Expected: 08/23/2024, Expires: 11/22/2024 [facility] Comment on above: Expected: 08/23/2024, Expires: Start: 08-23-2024 End: 08-23-2024 Patient encounter procedure 08/23/2024 10:00 AM EST Office Visit [address] [place], [place] [id number] Sahra Guy MD [address] [place] [address] [address] [place], [place] [address] Medicare Wellness [facility] Comment on above: Medicare Wellness Start: 08-03-2024 Advance Directive Discussion Advance Directive Discussion [facility] Start: 04-03-2024 Covid-19 Vaccine ( season) Covid-19 Vaccine ( season) [facility] Start: 04-03-2024 Covid-19 Vaccine ( season) Covid-19 Vaccine ( season) [facility] Start: 04-03-2024 Influenza vaccination [facility] Start: 02-23-2024 End: 05-24-2024 25-hydroxyvitamin D3 [Mass/volume] in Serum or Plasma VITAMIN D 25 HYDROXY Lab Routine Vitamin D deficiency Expected: 02/23/2024, Expires: 05/24/2024 [facility] Comment on above: Expected: 02/23/2024, Expires: Start: 02-23-2024 End: 05-24-2024 CBC panel - Blood by Automated count COMPLETE BLOOD COUNT Lab Routine Osteopenia, unspecified location Expected: 02/23/2024, Expires: 05/24/2024 [facility] Comment on above: Expected: 02/23/2024, Expires: Start: 02-23-2024 End: 05-24-2024 Comprehensive metabolic 2000 panel - Serum or Plasma COMPREHENSIVE METABOLIC PANEL Lab Routine Hyperglycemia Hyperlipidemia, mixed Expected: 02/23/2024, Expires: 05/24/2024 [facility] Comment on above: Expected: 02/23/2024, Expires: Start: 02-23-2024 End: 05-24-2024 Hemoglobin A1c in Blood HEMOGLOBIN A1C Lab Routine Hyperglycemia Expected: 02/23/2024, Expires: 05/24/2024 [facility] Work Phone: Comment on above: Expected: 02/23/2024, Expires: Start: 02-23-2024 End: 05-24-2024 Lipid 1996 panel - Serum or Plasma LIPID PANEL BASIC Lab Routine Hyperlipidemia, mixed Expected: 02/23/2024, Expires: 05/24/2024 [facility] Comment on above: Expected: 02/23/2024, Expires: Start: 10-04-2023 Covid-19 Vaccine () Covid-19 Vaccine () [facility] Start: 09-25-2023 Urine microalbumin profile [facility] Comment on above: Postponed from 03/11/2014 (Declined at t his time) Start: 08-30-2023 DIABETES SCREEN DIABETES SCREEN [facility] Start: 08-03-2023 Advance Directive Discussion Advance Directive Discussion [facility] Start: 08-03-2023 Behavioral Health Screening Behavioral Health Screening [facility] Start: 04-03-2023 Covid-19 Vaccine () Covid-19 Vaccine () [facility] Start: 04-03-2023 End: 06-03-2023 Creatine kinase [Enzymatic activity/volume] in Serum or Plasma [facility] Work Phone: Comment on above: Expected: 04/03/2023, Expires: 3 Start: 04-03-2023 Influenza vaccination [facility] Start: 09-29-2022 COVID-19 VACCINE (6 - Pfizer series) COVID-19 VACCINE (6 - Pfizer series) [facility] Start: 08-03-2022 ADVANCE DIRECTIVE DISCUSSION ADVANCE DIRECTIVE DISCUSSION [facility] Start: 08-03-2022 DEPRESSION ASSESSMENT DEPRESSION ASSESSMENT [facility] Start: 04-03-2022 Influenza vaccination INFLUENZA (#1) [facility] Start: 10-02-2021 COVID-19 VACCINE (4 - Booster for Pfizer series) COVID-19 VACCINE (4 - Booster for Pfizer series) [facility] Start: 08-03-2021 ADVANCE DIRECTIVE DISCUSSION ADVANCE DIRECTIVE DISCUSSION [facility] Start: 08-03-2021 DEPRESSION ASSESSMENT DEPRESSION ASSESSMENT [facility] Start: 03-11-2014 DTaP/Tdap/Td Vaccines (1 - Tdap) DTaP/Tdap/Td Vaccines (1 - Tdap) [facility] Start: 03-11-2014 Urine microalbumin profile [facility] Start: 2013 RSV Immunization for Adults (1 - 1-dose 75+ series) RSV Immunization for Adults (1 - 1-dose 75+ series) [facility] Start: 2013 RSV Vaccine (1 - 1-dose 75+ series) RSV Vaccine (1 - 1-dose 75+ series) [facility] Start: 1998 RSV Vaccine (1 - 1-dose 60+ series) RSV Vaccine (1 - 1-dose 60+ series) [facility] Start: 1950 Depression Screening Depression Screening [facility] Start: 1938 Medicare Annual Wellness (AWV) Medicare Annual Wellness (AWV) [facility] Start: 1938 Screening for osteoporosis Bone Density Scan [facility] Bacteria identified in Urine by Culture BACTERIAL CULTURE, URINE Microbiology Routine Burning with urination 02/07/2025 11:40 AM EDT [facility] Work Phone: CBC panel - Blood by Automated count CBC Lab Today History of iron deficiency anemia Ordered: 10/29/2021 [facility] Work Phone: Comment on above: Ordered: 10/29/2021 Comprehensive metabolic 2000 panel - Serum or Plasma COMP METABOLIC PANEL Lab Today Poliomyelitis osteopathy of multiple sites (HCC) Ordered: 10/29/2021 [facility] Work Phone: Comment on above: Ordered: 10/29/2021 IRON + TIBC IRON + TIBC Lab Today History of iron deficiency anemia Ordered: 10/29/2021 [facility] Work Phone: Comment on above: Ordered: 10/29/2021 LIPID PANEL BASIC LIPID PANEL BA SIC Lab Today Screening for lipid disorders Ordered: 10/29/2021 [facility] Work Phone: Comment on above: Ordered: 10/29/2021 OUTSIDE PROCEDURE SCAN OUTSIDE PROCEDURE SCAN Procedures Ordered: 09/09/2024 [facility] Comment on above: Ordered: 09/09/2024 Patient Education ED Constipatio n (Adult) ED Fecal Impaction, Treated [facility] Work Phone: End: 11-28-2022 XR KNEE LIMITED 2V AP/LAT RIGHT XR KNEE LIMITED 2V AP/LAT RIGHT Radiology Routine Acute pain of right knee 1 Occurrences starting 10/29/2021 until 11/28/2022 [facility] Work Phone: Comment on above: 1 Occurrences starting 10/29/2021 until 11/28/2022 End: 10-26-2025 XR Lumbar spine 3 Views XR LUMBAR GENERAL 3V AP/LAT/L5-S1 Radiology Routine Acute left-sided low back pain, unspecified whether sciatica present Left hip pain 1 Occurrences starting 09/26/2024 until 10/26/2025 [facility] Comment on above: 1 Occurrences starting 09/26/2024 until 10/26/2025 End: 10-26-2025 XR Pelvis and Hip - left AP and Lateral frog XR HIP GENERAL 3V PELV/AP/LAT LEFT Radiology Routine Left hip pain 1 Occurrences starting 09/26/2024 until 10/26/2025 [facility] Work Phone: Comment on above: 1 Occurrences starting 09/26/2024 until 10/26/2025 [facility] Immunizations Immunization Date Immunization Notes Care Provider Merna narvaez 05-02-2024 influenza virus vacc ine, unspecified formulation Narciso Sherman PA-C Work Phone: [facility] 04-22-2023 influenza virus vacc ine, unspecified formulation Sahra Guy MD Work Phone: [facility] 04-08-2022 influenza, high-dose , quadrivalent vaccine (FLUZONE HIGH DOSE QUADRIVALENT) Sahra Guy MD Work Phone: [facility] 04-08-2022 influenza virus vacc ine, unspecified formulation Jeannette Melgar PT [facility] 05-03-2021 influenza, high-dose , quadrivalent vaccine (FLUZONE HIGH DOSE QUADRIVALENT) Sahra Guy MD Work Phone: [facility] 06-21-2020 zoster vaccine recombinant Sahra Guy MD Work Phone: [facility] 04-25-2020 influenza, high-dose , quadrivalent vaccine (FLUZONE HIGH DOSE QUADRIVALENT) Sahra Guy MD Work Phone: [facility] 04-19-2020 zoster vaccine recombinant Sahra Guy MD Work Phone: [facility] 05-17-2019 influenza, high dose seasonal, preservative-free Sahra Guy MD Work Phone: [facility] 05-20-2018 influenza, high dose seasonal, preservative-free Sahra Guy MD Work Phone: [facility] 05-20-2018 pneumococcal polysaccharide vaccine, 23 valent Sahra Guy MD Work Phone: [facility] 05-25-2017 influenza, high dose seasonal, preservative-free Sahra Guy MD Work Phone: [facility] 05-14-2017 influenza, injectabl e, quadrivalent, contains preservative Sahra Guy MD Work Phone: [facility] 05-24-2015 influenza, injectable,quadrivalent, preservative free, pediatric Sahra Guy MD Work Phone: [facility] 12-13-2014 pneumococcal conjuga te vaccine, 13 valent Sahra Guy MD Work Phone: [facility] 03-10-2014 TD(adult) unspecifie d formulation Sahra Guy MD Work Phone: [facility] 03-10-2014 tetanus and diphther ia toxoids, adsorbed, preservative free, for adult use (2 Lf of tetanus toxoid and 2 Lf of diphtheria toxoid) Chey Kumar MD [facility] 05-04-2012 influenza virus vacc ine, unspecified formulation Sahra Guy MD Work Phone: [facility] 05-27-2011 influenza virus vacc ine, unspecified formulation Sahra Guy MD Work Phone: [facility] Work Phone: 05-27-2011 zoster vaccine, live Sahra Guy MD Work Phone: [facility] Work Phone: 05-15-2010 influenza virus vacc ine, unspecified formulation Sahra Guy MD Work Phone: [facility] 04-30-2009 influenza virus vacc ine, unspecified formulation Sahra Guy MD Work Phone: [facility] Work Phone: 05-10-2008 influenza virus vacc ine, unspecified formulation Sahra Guy MD Work Phone: [facility] Work Phone: 06-08-2007 influenza virus vacc ine, whole virus Sahra Guy MD Work Phone: [facility] 06-03-2006 influenza virus vacc ine, unspecified formulation Sahra Guy MD Work Phone: [facility] Work Phone: 07-30-2005 tetanus and diphther ia toxoids, adsorbed, preservative free, for adult use (2 Lf of tetanus toxoid and 2 Lf of diphtheria toxoid) Sahra Guy MD Work Phone: [facility] Work Phone: 07-31-2002 pneumococcal polysaccharide vaccine, 23 valent Sahra Guy MD Work Phone: [facility] Work Phone: Payers Date Payer Category Payer Self-pay 2024 Commercial Managed C are - PPO [employer] PPO [id number] 2024 Medicare (Managed Care) [employer] [place] [id number] 2024 Private Health Insurance [facility] [id number] 2023 Commercial Managed C are - HMO [facility] [id number] 2012 Private Health Insurance 2012 Private Health Insurance [facility] INDEMNITY GENERIC [id number] 2012-Present [phone] [address] [address] [place] [address] Indemnity [id number] 2011 Private Health Insurance [id number] 2001 Medicare 2001 Medicare MEDICARE MEDICAR E A AND B [id number] 2001-Present [phone] [address] [address] [place] [address] Medicare [id number]. [id number] 2001 Medicare [id number] 1940 Unknown [id number] 2.16.840.1.817325.3.579.2. 668 1938 Unknown [id number] 2.16840.1.777097.3.579.2. 668 1938 Unknown [id number] 2.16.840.1.715050.3.579.2. 668 1938 Unknown [id number] 2.16.840.1.173585.3.579.2. 278 Medicare [id number] Unknown [id number] 2.16.840.1.011022.3.579.2. 462 Unknown [id number] 2.16.840.1.216943.3.579.2. 462 Unknown [id number] 2.16.840.1.862240.3.579.2. 462 Unknown [id number] 2.16.840.1.465470.3.579.2. 462 Unknown [id number] 2.16.840.1.003813.3.579.2. 462 Unknown [id number] 2.16.840.1.625139.3.579.2. 462 Unknown [id number] 2.16.840.1.500896.3.579.2. 462 Unknown [id number] 2.16.840.1.070415.3.579.2. 462 Unknown [id number] 2.16.840.1.104118.3.579.2. 462 Unknown [id number] 2.16.840.1.236114.3.579.2. 462 Unknown [id number] 2.16.840.1.177097.3.579.2. 462 Unknown [id number] 2.16.840.1.083313.3.579.2. 462 Unknown [id number] 2.16.840.1.448263.3.579.2. 462 Unknown [id number] 2.16840.1.710525.3.579.2. 462 Unknown [id number] 2.16840.1.608529.3.579.2. 462 Unknown [id number] 2.840.1.566523.3.579.2. 462 Unknown [id number] 2.840.1.728875.3.579.2. 462 Unknown [id number] 2.840.1.195864.3.579.2. 462 Unknown [id number] 2.16840.1.932601.3.579.2. 462 Unknown [id number] 2.16840.1.948492.3.579.2. 462 Unknown [id number] 2.16840.1.956364.3.579.2. 462 Unknown [id number] 2.16840.1.049775.3.579.2. 462 Unknown [id number] 2.16.840.1.695670.3.579.2. 462 Unknown [id number] 2.16840.1.906185.3.579.2. 462 Unknown [id number] 2.16.840.1.835225.3.579.2. 462 Unknown [id number] 2.16840.1.079795.3.579.2. 462 Unknown [id number] 2.16.840.1.490133.3.579.2. 462 Unknown [id number] 2.16.840.1.953283.3.579.2. 462 Unknown [id number] 2.16.840.1.136458.3.579.2. 462 Unknown [id number] 2.16.840.1.963299.3.579.2. 462 Unknown [id number] 2.16.840.1.154241.3.579.2. 462 Unknown [id number] 2.16.840.1.288642.3.579.2. 462 Unknown [id number] 2.16.840.1.856132.3.579.2. 462 Unknown [id number] 2.16.840.1.172660.3.579.2. 462 Social History Date Type Detail Facility Start: 02-20-2016 End: 04-08-2022 Tobacco smoking status NHIS Never smoked tobacco [facility] Work Phone: Start: 02-20-2016 End: 04-08-2022 Tobacco use and exposure Smokeless tobacco non-user [facility] Work Phone: Start: 10-29-2021 End: 02-07-2025 Alcohol intake Current drinker of alcohol (finding) [facility] Start: 02-15-2025 History SDOH Alcohol Comment [facility] Start: 02-20-2016 End: 04-08-2022 Tobacco Comment second hand smoke exposure. [facility] Start: 1940 Sex Assigned At Not on file [facility] Start: 10-19-2021 End: 04-08-2022 Exposure to SARS-CoV-2 (event) Not sure [facility] History of tobacco use Passive smoker [facility] Work Phone: Start: 06-01-2022 End: 06-11-2022 Exposure to SARS-CoV-2 (event) Yes [facility] Start: 03-10-2023 End: 01-31-2025 History of Social function [facility] Work Phone: Start: 03-10-2023 End: 01-31-2025 Tobacco use panel [facility] Work Phone: Start: 07-04-2012 Adult Depression Screening Assessment 0 [facility] Work Phone: Start: 06-14-2014 End: 03-25-2025 Tobacco smoking status NHIS Tobacco smoking consumption unknown [facility] Start: 03-03-2022 Sex Female (finding) [facility] Has the electric, [employer] s, oil, or water company threatened to shut off services in your home in past 12Mo No [facility] (I/We) worried whemichael er (my/our) food would run out before (I/we) got money to buy more. Never true [facility] Start: 02-15-2025 Drugs Drugs [facility] Start: 02-15-2025 Lives Lives [facility] Start: 02-15-2025 Tobacco Use Tobacco Use [facility] Start: 1940 Sex Assigned At Female W [facility] Functional Status Date Assessment Result Facility 12-19-2024 Are you deaf, or do you have serious difficulty hearing No 12/19/2024 3:09 PM Theresa Gonzales RN No [facility] 12-19-2024 Are you blind, or do you have serious difficulty seeing, even when wearing glasses No 12/19/2024 3:09 PM Theresa Gonzales RN No [facility] 12-19-2024 Do you have serious difficulty walking or climbing stairs Yes 12/19/2024 3:09 PM Theresa Gonzales RN Yes [facility] 12-19-2024 Do you have difficul ty dressing or bathing Yes 12/19/2024 3:09 PM Theresa Gonzales, HILDA Yes [facility] 12-19-2024 Because of a physica l, mental, or emotional condition, do you have difficulty doing errands alone such as visiting a physician's office or shopping Yes 12/19/2024 3:09 PM Theresa Gonzales, HILDA Yes [facility] 07-30-2018 Are you deaf, or do you have serious difficulty hearing No 07/30/2018 5:50 PM Miranda Castro RN No [facility] 07-30-2018 Are you blind, or do you have serious difficulty seeing, even when wearing glasses No 07/30/2018 5:50 PM Miranda Castro, HILDA No [facility] 07-30-2018 Do you have serious difficulty walking or climbing stairs Yes 07/30/2018 5:50 PM Miranda Castro, HILDA Yes [facility] 07-30-2018 Do you have difficul ty dressing or bathing No 07/30/2018 5:50 PM Miranda Castro RN No [facility] 07-30-2018 Because of a physica l, mental, or emotional condition, do you have difficulty doing errands alone such as visiting a physician's office or shopping No 07/30/2018 5:50 PM Miranda Castro RN No [facility] Mental Status Date Assessment Result Facility 12-19-2024 Because of a physica l, mental, or emotional condition, do you have serious difficulty concentrating, remembering, or making decisions Yes 12/19/2024 3:09 PM RONYT Theresa Gnozales RN Yes [facility] 07-30-2018 Because of a physica l, mental, or emotional condition, do you have serious difficulty concentrating, remembering, or making decisions No 07/30/2018 5:50 PM Miranda Castro RN No [facility] Clinical Notes 08-25-2018 to 03-30-2025 Note Date & Type Note Facility 03-30-2025 Evaluation note Diagnosis Onset Date Resolution Compression fracture of T11 vertebra acute March 30 1:26pm 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 Medical Records Department [address] [place] [address] Emergency Department Summary 03/25/25 MR#: [id number] Acct: [id number] Name: TENA CANNON Rep #:[id number] : 1940 84 From: Vicente Leon MD PCP: Dr. Chey Kumar MD Status:R EG ER Location: ED HPI HPI - GI History of Present Illness Chief Complaint: Constipation Narrative Narrative: 84-year-old female presents from [facility] with constipation for the last week [...] bowel movement butis unable to do so. [facility] Medical History History of fractured vertebra [...] fecal impaction in the rectum Reading Location: [facility] Discharge Plan Triage Chief Complaint: Constipation ED [...] a day. Continue your senna. Print Language: Puerto Rican Disposition Disposition: Home, Self Care What to do if you have Problems For any increased pain, shortness of breath, bleeding, nausea or vomiting, chestpain, or any unexpected problems, contact your Primary Care Provider. Call [facility] ([phone]) or report tothe closest Emergency Room. Call 911 if necessary. 03/25/25 1903 Cosigner Signature (if applicable): CC: Dr. Chey Kumar MD ~ Signed [facility]08-23-2025 Radiology Diagnostic study note [facility] Imaging Services [address] [place], [place] [address] Abd Decub and/or Erect(Portabl MR#: [id number] Acct: [id number] Name: TENA CANNON Rep #: [id number] : 1940 F 84 From: Pet er Peer DO PCP: Dr. Chey Kumar MD Status: P RE ER Study:Abd Decub and/or Erect(Portabl Date of Exam: 03/25/25 Exam# [id number] Ordering Dr: Vicente Leon MD PROCEDURE: ABD DECUB AND/OR ERECT(PORTABLE 03/25/2025 REASON FOR EXAM: CONSTIPATION TECHNIQUE: ABD DECUB AND/OR ERECT(PORTABLE COMPARISON: December 08, 2024 CT FINDINGS: Bowel gas: Nonobstructing nonspecific bowel-gas pattern. Jttj-sn-unvyxwiw fecalload consistent withconstipation. Calcifications: No suspicious calcifications. Bones: Degenerative changes of the lumbar spine. Kyphoplasties cement in L3. Other: Cholecystectomy clips in the gallbladder fossa. Pronounced left convexity scoliosis of the thoracolumbar spine RAD/Abd Decub and/or Erect(Portabl IMPRESSION: Possible fecal impaction in the rectum [facility] CC: Dr. Vicente Leon MD; Dr. Chey Kumar MD ~ Skid Strapper: Signed [facility]08-23-2025 Discharge summary Author Vicente Leon [facility] Note Date/Time March 25, 2025 7: 03pm [facility] Medical Records Department [address] [place] [address] Emergency Department Summary 03/25/25 MR#: [id number] Acct: [id number] Name: TENA CANNON Rep #:[id number] : 1940 84 From: Vicente Leon MD PCP: Dr. Chey Kumar MD Status:R EG ER Location: ED HPI HPI - GI History of Present Illness Chief Complaint: Constipation Narrative Narrative: 84-year-old female presents from [facility] with constipation for the last week [...] bowel movement butis unable to do so. [facility] Medical History History of fractured vertebra [...] fecal impaction in the rectum Reading Location: [facility] Discharge Plan Triage Chief Complaint: Constipation ED [...] a day. Continue your senna. Print Language: Puerto Rican Disposition Disposition: Home, Self Care What to do if you have Problems For any increased pain, shortness of breath, bleeding, nausea or vomiting, chestpain, or any unexpected problems, contact your Primary Care Provider. Call [facility] ([phone]) or report to the closest Emergency Room. Call 911 if necessary. 03/25/251902 <Electronically signed by Vicente Leon MD> Cosigner Signature (if applicable): CC: Dr. Chey Kumar MD ~ Signed [facility] Work Phone: 1(352) 208-715308-20-2025 Telephone encounter Note* Telephone Encounter - Norma Long - 03/22/2025 4:24 PM EDT Tena has her daughter calling for information to request medical records request for insurance [employer]. Fax and phone number was provided Patient has been identified by name and birthdate. Person calling: daughter: Juan Call patient at: on cell [phone] (home) [phone] (cell) Was an appointment scheduled: No Closing statement: Results or non-symptom based questions: Thank you for calling [facility], your call will be returned within the next business day. Norma Monroe [facility]08-20-2025 Miscellaneous Notes* Telephone Encounter - Norma Long - 03/22/2025 4:24 PM EDT Tena has her daughter calling for information to request medical records request for [employer]. Fax and phone number was provided Patient has been identified by name and birthdate. Person calling: daughter: Juan Call patient at: on cell [phone] (home) [phone] (cell) Was an appointment scheduled: No Closing statement: Results or non-symptom based questions: Thank you for calling [facility], your call will be returned within the next business day. Norma Monroe documented [facility]07-15-2025 Telephone encounter Note * Telephone Encounter - Yandy Cruz LPN - 02/14/2025 9:44 AM EDT Called [facility], patient on [facility]. Spoke with LOBO Soto. Reports patient had been transferred hall. LOBO Soto informed of orders and she will update facility provider. Yandy Cruz LPN [facility]07-15-2025 Miscellaneous Notes* Telephone Encounter - Yandy Cruz LPN - 02/14/2025 9:44 AM EDT Called [facility], patient on [facility]. Spoke with LOBO Soto. Reports patient had been transferred hall. LOBO Soto informed of orders and she will update facility provider. Yandy Cruz LPN * Telephone Encounter - Yandy Cruz LPN - 02/10/2025 9:36 AM EDT Faxed order and results to [facility]. Yandy Cruz LPN * Telephone Encounter - Yandy Cruz LPN - 02/10/2025 9:34 AM EDT Images from the original note were not included. Order [facility]: sulfamethoxazole-trimethoprim (BACTRIM DS) 800-160 mg per tablet [[id number]] Original entry by Marilyn Santos PA-C 02/09/2025 [...] start bactrim. Thanks Son [facility]-2025 Telephone encounter Note * Telephone Encounter - Yandy Cruz LPN - 02/10/2025 9:36 AM EDT Faxed order and results to [facility]. Yandy Cruz LPN [facility]07-11-2025 Telephone encounter Note* Telephone Encounter - Yandy Cruz LPN - 02/10/2025 9:34 AM EDT Images from the original note were not included. Order [facility]: sulfamethoxazole-trimethoprim (BACTRIM DS) 800-160 mg per tablet [[id number]] Original entry by Marilyn Santos PA-C 02/09/2025 [...] Diagnoses: -- Pharmacy Associated Diagnoses: -- Dates [facility]07-11-2025 Telephone encounter Note* Telephone Encounter - Yandy Cruz LPN - 02/10/2025 9:26 AM EDT Called patient. No answer- left message to call clinic for message. Yandy Cruz LPN [facility]07-11-2025 Telephone encounter Note* Telephone Encounter - Yandy Cruz LPN - 02/10/2025 9:24 AM EDT ----- Message from Marilyn Santos PA-C sent at 02/09/2025 11:51 AM EDT ----- Regarding: urine culture is positive Please tell her the urine culture is positive and to start bactrim. Edward Cline [facility]07-09-2025 Telephone encounter Note* Telephone Encounter - Yandy Cruz LPN - 02/08/2025 8:36 AM EDT Faxed urology office notes to facility. Yandy Cruz LPN [facility]07-09-2025 Miscellaneous Notes* Telephone Encounter - Yandy Cruz LPN - 02/08/2025 8:36 AM EDT Faxed urology office notes to facility. Yandy Cruz LPN * Telephone Encounter - Yandy Cruz LPN - 02/08/2025 8:34 AM EDT Called [facility] to obtain fax number. Spoke with LOBO Burk on [facility] (Transition of Care). Fax number is . Yandy Cruz LPN documented in [facility] encounter[facility]07-09-2025 Telephone encounter Note * Telephone Encounter - Yandy Cruz LPN - 02/08/2025 8:34 AM EDT Called [facility] to obtain fax number. Spoke with LOBO Burk on [facility] (Transition of Care). Fax number is . Yandy Cruz LPN [facility]07-08-2025 NoteHNO ID: [id number] Author: NARCISO SHERMAN PA-C Service: ? Author Type: Physician Reading Efficiency Course Director Type: Progress Notes Filed: 02/07/2025 11:35 Note Text: [facility] PATIENT CLINIC NOTE (F) Note was generated by [employer] and edited as appropriate SERVICE DATE: [...] 0.96 mg/dL Final MEDICATIONS: dextran 70-hypromellose (ARTIFICIAL TEARS,[id number],) 0.1-0.3 % ophthalmic solution Use 1 drop in both eyes two times a day. lidocaine (ASPERFLEX, LIDOCAINE,) 4 % patch Apply 1 application as directed once daily. Apply to lower back, on for twelve hours, off for twelve hours. nylcyiyw-gwij-aov8-C-lety-bosw (OSTEO BI-FLEX TRIPLE STRENGTH) 750 mg-644 mg- [...] Use 1 Drop i (more content not included)...[facility]07-08-2025 History of Present illness Narrative* Narciso Sherman PA-C - 02/07/2025 10:59 AM EDT Images from the original note were not included. [facility] PATIENT CLINIC NOTE (F) Note was generated by [employer] and edited as appropriate SERVICE DATE: [...] 0.96 mg/dL Final MEDICATIONS: dextran 70-hypromellose (ARTIFICIAL TEARS,TFFS84-UHPIX,) 0.1-0.3 % ophthalmic solution Use 1 drop in both eyes two times a day. lidocaine (ASPERFLEX, LIDOCAINE,) 4 % patch Apply 1 application as directed once daily. Apply to lower back, on for twelve hours, off for twelve hours. uswjaqxp-uatf-drt2-C-lety-bosw (OSTEO BI-FLEX TRIPLE STRENGTH) 750 mg-644 mg- [...] alcohol (LIQUID TEARS OPHTHALMIC) Use in eyes. rutin/hesp/bioflav/C/larujw693 (BIOFLEX ORAL) Take 1 capsule by mouth [...] - Recent hospitalization on December 15 at [place] due to a fall resulting in a [...] MONICA Concepcion, STANTON, GENE documented in this encounterUk [facility]06-09-2025 NoteHNO ID: [id number] Author: LIONEL JOINER MA Service: ? Author Type: Tail Puller Type: Progress Notes Filed: 01/09/2025 08:50 Note [...] Lionel Joiner MA January 09, 2025 7:10 [facility]06-09-2025 History of Present illness Narrative* Lionel [...] 09, 2025 7:10 AM documented in this encounterUk Healthcare06-09-2025 NotePatient Outreach (NETNAV) TENA CANNON ([id number]) 1940 F Date Time Provider Department 01/09/25 [...] Health Navigation Outreach [3910] [facility] Pres[facility] as of 01/09/2025 - lactulose 20 [...] (LIQUID TEARS OPHTHALMIC) Use in eyes. - rutin/hesp/bioflav/C/iyhvwv886 (BIOFLEX ORAL) Take 1 capsule by mouth [...] poliomyelitis [B91] 05/12/2005 [place] (more content not included)...[facility]05-19-2025 Note HNO ID: [id number] Author: RACHEL RODRIGEZ RN Service: Care Management Author Type: Registered Nurse Type: Care Mgt Progress Note Filed: 12/19/2024 13:56 Note Text: CARE MANAGEMENT DISCHARGE NOTE SERVICE DATE: December 19, 2024 SERVICE TIME: 1:47 PM Discharge Order written for today. Discharge: Group Home Facility SNF: [facility] - - Facility confirms they have insurance auth and can accept patient. HILDA ROMO informed Katiuska Jacob from the [facility]. SNF updated on discharge today and transport time per [facility]. [facility] Transport Scheduled for today at 3:00PM - Trip Number [id number] Transport envelope on chart. HILDA ROMO updated patient at bedside and daughter Joanne by phone on discharge plan and transport time. Nurse: Theresa Vargas RN updated on discharge plan for today. Admission Date: 12/12/2024 LOS: 3 days Discharge Arrangement Discharge Arrangement: Group Home Facility Provider Name: SNF: [facility] - Transportation Arrangements Transportation Arrangements: Ambulance Transportation Agency and Phone #:: [facility] [phone] Date of Trip: 12/19/24 (Trip Number [id number]) Time of Trip: 1500 Type of Service: BLS Non-emergency Is Patient Medicaid Pending?: No Was transportation financial coverage discussed with family?: Patient, Family (Daughter: Joanne Bazzi - ) Blending Tank Tender Location: [place] Destination: SNF: [facility] - Financial Care Management Responsibility: None Handoff Communication: Handoff to: Other Caregiver, Primary Care Physician Primary Care Physician Name/Phone: PCP: Sahra Guy MD - Other Caregiver Name/Phone: SNF: [facility] - Additional Information: Discharge Information Row Name ED to Hosp-Admission (Current) from 12/12/[address] [facility] Follow-Up Appointment Provider Name PCP: Jaime Guy MD - Group Home Facility Agency SNF: [facility] - SIGNATURE: Rachel Rodrigez RN PATIENT NAME: Tena Cannon DATE: December 19, 2024 TIME: 1:[facility]sy[facility]de87-79-8863 NoteHNO ID: [id number] Author: RACHEL RODRIGEZ RN Service: Care Management Author Type: Registered Nurse Type: Care Mgt Progress Note Filed: 12/19/2024 13:38 Note Text: CARE MANAGEMENT PROGRESS NOTE SERVICE DATE: 12/19/2024 SERVICE TIME: 11:41 AM LOS: 3 days Discharge Plan: Group Home Facility. SNF: [facility] - Able to Accept: They note they have insurance authorization to accept. [facility] completed [place] [address] [facility] - Document ID : [id number]. Dr Lopez updated CM: he spoke with patient and daughter and is planning to discharge patient today. RN DEMETRIUS met with patient at bedside to discuss discharge plan for today. Patient confirms she is agreeable with discharge to SNF: [facility] in [place] by medical transport. Patient informed that medical transport time scheduled for today at 3:00 PM. HILDA ROMO called and updated patients daughter Juan on discharge plan and transport time for today. Juan confirms she is agreeable with discharge plan. SNF [facility] updated in [facility] Transitions on Discharge today and Transport Time. Transport envelope on chart. SIGNATURE: Rachel Rodrigez RN PATIENT NAME: Tena Cannon DATE: December 19, 2024 TIME: 11:41 [id number] NoteHNO ID: [id number] Author: MORIAH LOPEZ MD Service: Hospital Medicine [...] at 6 pm that he spoke with [facility] neurosurgeon supervisor show operations who said that patient isn't a surgical [...] Noted Thoracic compression fracture, closed, initial encounter ([facility]) 12/16/2024 Obesity, Class I, BMI 30-34.9 12/12/2024 Low back pain 12/12/2024 Generalized weakness 07/29/2018 Obstructive sleep apnea on CPAP 07/14/2017 Overview Note: DME--[employer]--PH # [phone]---FX # [phone]. 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 Will Begin Precert. Physician Certification [...] DATE: December 18, 2024 TIME: 9:54 [facility] HospitalZwvndvtf50-08-0748 NoteHNO ID: [id number] Author: MORIAH LOPEZ MD Service: Hospital Medicine Author Type: Physician Type: Progress Notes Filed: 12/18/2024 08:45 Note Text: HOSPITAL MEDICINE PROGRESS NOTE History: Urine less cloudy per chief of staff. Exam: BP (!) 114/48 Pulse 74 Temp [...] at 6 pm that he spoke with [facility] neurosurgeon supervisor show operations who said that patient isn't a surgical candidate based on her age and chronic functional status and high risk for surgical complications and non-healing. Will focus on pain meds and transition to SNF with brace. Constipation - continue miralax/senna docusate. Add mag citrate today. Trying to avoid [place] meds given back pain. Urine retention - stop sanctura and add flomax. Continue [place] and do void trial at SNF after ~ 7 days of flomax. F/u with urology on DC. Tylenol, solumedrol, oxycodone, lido patch, kpad for compression fracture. F/u with spine surg. Med rdy for SNF. Active Hospital Problems Diagnosis Date Noted Thoracic compression fracture, closed, initial encounter ([facility]) 12/16/2024 Obesity, Class I, BMI 30-34.9 12/12/2024 Low back pain 12/12/2024 Generalized weakness 07/29/2018 Obstructive sleep apnea on CPAP 07/14/2017 Overview Note: DME--[employer]--PH # [phone]---FX # [phone]. 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 Service: ? Author Type: ? Type: Progress Notes Filed: 12/18/2024 02:53 Note Text: Epic Scheduled Downtime: 12/18/2024 1:00:00 AM to 12/18/2024 2:37:00 [facility] [id number] NoteHNO ID: [id number] Author: MORIAH LOPEZ MD Service: Hospital Medicine [...] at 6 pm that he spoke with [facility] neurosurgeon supervisor show operations who said that patient isn't a surgical [...] Noted Thoracic compression fracture, closed, initial encounter ([facility]) 12/16/2024 Obesity, Class I, BMI 30-34.9 12/12/2024 Low back pain 12/12/2024 Generalized weakness 07/29/2018 Obstructive sleep apnea on CPAP 07/14/2017 Overview Note: DME--[employer]--PH # [phone]---FX # [phone]. 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 Service: ? Author Type: ? Type: Progress Notes Filed: 12/17/2024 03:45 Note Text: Epic Scheduled Downtime: 12/17/2024 1:00:00 AM to 12/17/2024 3:39:00 [facility]Wurpuvxj89-08-9797 NoteHNO ID: [id number] Author: RACHEL RODRIGEZ, HILDA Service: Care Management Author Type: Registered Nurse Type: Care Mgt Progress Note Filed: 12/16/2024 14:42 Note Text: CARE MANAGEMENT PROGRESS NOTE SERVICE DATE: 12/16/2024 SERVICE TIME: 2:28 PM LOS: 0 days 5/16/25 PT recommended SNF and 12/16/24 OT recommended SNF. SNF Choice: [facility] [place]: Pending. Referral updated in [facility] Transitions and Voice Message left to inform Kamini in Admissions [phone]. Discharge Plan: Group Home Facility - Pending Acceptance and Insurance Authorization/Precert. [...] Cannon DATE: December 16, 2024 TIME: 2:28 PMK[facility] SpringfieldKfnbsnvy41-22-8884 NoteHNO ID: [id number] Author: GEORGINA RICHARDSON MD Service: Hospital Medicine Author Type: Physician Type: Progress Notes Filed: 12/16/2024 14:30 Note Text: DEPARTMENT OF HOSPITAL MEDICINE PROGRESS NOTE SERVICE DATE: 12/16/2024 SERVICE TIME: 2:23 PM Hospital Medicine/Primary Attending: Georgina Richardson MD NIGHT AND WEEKEND COVERAGE: [place] COVERAGE: Days: [phone], please page attending physician. Nights: [phone], please page [place] [facility] Night coverage pager [phone]. Subjective INTERVAL HPI: Patient is still having [...] 2 days Peripheral 12/14/24 1257 [facility] Short Right Forearm 22 Gauge [...] 30-34.9 Thoracic compression fracture, closed, initial encounter ([facility]) HOSPITAL COURSE: Tena Cannon is a 84 year old female presented with past medical his (more content not included)...[facility] SpringfieldUbtjmwdk87-81-2759 NoteHNO ID: [id number] Author: GEORGINA RICHARDSON MD Service: Care Management [...] 30-34.9 Thoracic compression fracture, closed, initial encounter ([facility]) Resolved Problems: Sleep apnea Attending Physician: Georgina Richardson, [facility] HealthEspkkcri27-86-6518 NoteHNO ID: [id number] Author: GEORGINA RICHARDSON MD Service: Hospital Medicine Author Type: Physician Type: Progress Notes Filed: 12/15/2024 11:49 Note Text: DEPARTMENT OF HOSPITAL MEDICINE PROGRESS NOTE SERVICE DATE: 12/15/2024 SERVICE TIME: 11:47 AM Hospital Medicine/Primary Attending: Georgina Richardson MD NIGHT AND WEEKEND COVERAGE: [place] COVERAGE: Days: [phone], please page attending physician. Nights: [phone], please page [place] [facility] Night coverage pager [phone]. Subjective INTERVAL HPI: Patient is still having [...] 1 day Peripheral 12/14/24 1257 [facility] Short Right Forearm 22 Gauge [...] apnea on CPAP Generaliz (more content not included)...[facility] SpringfieldDemqrbrv78-40-9632 NoteHNO ID: [id number] Author: RACHEL RODRIGEZ RN Service: Care Management [...] evaluation and recommendation: Pending Anticipated Discharge Plan: Group Home Facility Only SNF Choice Provided: [facility]: Pending Review of Therapy Evaluations and Insurance Authorization/Precert. Discharge Transportation: Medical Transport - COT Transport envelope on chart. Needs Prior to Discharge: To Be Determined, OT/PT Evaluation, Accepting Facility, Insurance Authorization, Precertification, Discharge Transportation, Equipment Delivery (Back Brace) CM Dept to Follow. SIGNATURE: Rachel Rodrigez RN PATIENT NAME: Tena Cannon DATE: December 15, 2024 TIME: 8:53 AMKettering Health SpringfieldMkffulqt85-07-0832 NoteHNO ID: [id number] Author: GEORGINA RICHARDSON MD Service: Hospital Medicine Author Type: Physician Type: Progress Notes Filed: 12/14/2024 15:17 Note Text: DEPARTMENT OF HOSPITAL MEDICINE PROGRESS NOTE SERVICE DATE: 12/14/2024 SERVICE TIME: 3:15 PM Hospital Medicine/Primary Attending: Georgina Richardson MD NIGHT AND WEEKEND COVERAGE: [place] COVERAGE: Days: [phone], please page attending physician. Nights: [phone], please page [place] [facility] Night coverage pager [phone]. Subjective INTERVAL HPI: Patient is confused and [...] <1 day Peripheral 12/14/24 1257 [facility] Short Right Forearm 22 Gauge [...] Adjustment disorder with depress (more content not included)...[facility] 12-14-2024 NoteHNO ID: [id number] Author: CORRINE PETERSEN RN Service: Care Management [...] to discharged to SNF, referral out to [facility]. Per patient please share all medical information with her daughter Juan. CM will continue to follow. SIGNATURE: Corrine Petersen RN PATIENT NAME: Tena Cannon DATE: December 14, 2024 TIME: 2:22 PMKettering Health SpringfieldMbzrtgvp53-50-7071 NoteHNO ID: [id number] Author: GEORGINA RICHARDSON MD Service: Hospital Medicine Author Type: Physician Type: Progress Notes Filed: 12/13/2024 12:50 Note Text: DEPARTMENT OF HOSPITAL MEDICINE PROGRESS NOTE SERVICE DATE: 12/13/2024 SERVICE TIME: 12:40 PM Hospital Medicine/Primary Attending: Georgina Richardson MD NIGHT AND WEEKEND COVERAGE: [place] COVERAGE: Days: [phone], please page attending physician. Nights: [phone], please page [place] Hospital[facility] Night coverage pager [phone]. Subjective INTERVAL HPI: Patient is little bit [...] Name Duration Peripheral 12/12/24 1229 [facility] Short Right Forearm 20 Gauge [...] 84 year o (more content not included)... [facility] SpringfieldNqcbzdyf25-55-1109 NoteHNO ID: [id number] Author: RACHEL RODRIGEZ RN Service: Care Management Author Type: Registered Nurse Type: Care Mgt Initial Assessment Filed: 12/13/2024 10:55 Note Text: CARE MANAGEMENT: ASSESSMENT AND DISCHARGE PLAN SERVICE DATE: December 13, 2024 SERVICE TIME: 10:20 AM gun stocker spoke with patient at bedside to complete Care Management Assessment. Introduction made and role of Care Management explained. PCP: Sahra Guy MD - Patient confirmed Primary Contact: Primary Emergency Contact: Juan Bazzi Relation: Daughter Admission Status: Observation Insurance Provider: [facility] MEDICARE PPO Discharge Planning requested by: Per Department Practice Potential Transition Plans (Group Home Facility) Advance Directives Current Advance Directive: Living Will In Chart: Yes Current Living Arrangements and Support Lives with: Alone (Assisted Living Facility: [facility]) Type of Residence: Assisted Living Facility Care Facility Name: Assisted Living Facility: [facility] Support: Family members How do you [...] she usually transfers herself with standby assist. [place] of Choice Explained: [place] of Choice Given: Yes (Patient confirms she is agreeable to a SNF referral to [facility] Level of Care Discussed: Group Home Facility Are you interested in bedside delivery of your medications? Service Not Available [facility] [place] Discharge Planning Participant(s): Patient Transport at Discharge: Transportation Arrangements: Ambulance Transportation Agency and Phone #:: [facility] [phone] Type of Service: BLS Non-emergency Is Patient Medicaid Pending?: No Was transportation financial coverage discussed with family?: Patient (Patient has been informed that she is responsible for all out of pocket costs for medical transportation at discharge.) Blending Tank Tender Location: [place] Financial Care Management Responsibility: None Needs Prior to Discharge: Needs Prior to Discharge: To Be Determined, OT/PT Evaluation, Accepting Facility, Insurance Authorization, Precertification, Discharge Transportation Post-Acute Discharge Plan: From Assisted Living Facility: [facility]. Patient reports she uses manual wheelchair or electric wheelchair for mobility. Patient reports she is able to transfer herself with one standby assist at baseline. Patient reports she manages her own medications and her meals are provided by the assisted living facility. Patient is agreeable to SNF: [facility] and states her daughter has talked with them. Referral sent in [facility] Transitions. Patient will need PT AND OT [...] DATE: December 13, 2024 TIME: 10:20 [facility] HospitalRagfzlpb88-16-8274 NoteHNO ID: [id number] Author: CORRINE PETERSEN RN Service: Care Management [...] stairs at home?: No Care Facility Name: [facility] Support: Children, Family members How do you manage to accomplish the following: Independent: Bathe/Shower, Dress, Going to the bathroom, Medication Management Needs Assistance: Ambulation, Meals/Meal Prep Dependent: Transportation to appointments/community Current Services/Equipment Current Post-Acute Service(s): DME Current DME Type: Shower seat, Wheelchair-electric, Rollator Scooter Discharge Planning Patient Goal(s): General wellness, Be able to go home [place] of Choice Explained: [place] of Choice Given: No Reason Not Given: [...] Arrangements: Ambulance Transportation Agency and Phone #:: [facility] [phone] Needs Prior to Discharge: Needs Prior to Discharge: Other: See Comment (Pain control, medical clearance) Post-Acute Discharge Plan: Return to Assisted Living Met with patient at bedside, introduced self/role of TCC. Patient presented to [place] ED c/o lower back/flank plan. Patient admitted to Observation for further evaluation and treatment. Patient lives at [facility]. She reports being independent with most ADLs and IADLs. Due to Polio as a child patient is wheelchair bound. Patient is able to transfer herself. OT recommended SNF, patient and daughter both declined. CM will continue to follow for discharge planning needs. Patient will need ambulance transport at discharge. SIGNATURE: Corrine Petersen RN PATIENT NAME: Tena Cannon DATE: December 09, 2024 TIME: 4:02 PMKettering Health SpringfieldTowlghgd71-88-7135 Telephone encounter Note* Telephone Encounter - [place] Tete Boucher - 12/09/2024 2:29 PM EDT Nunoanne, daughter called and stated lidocaine patches are denied and the insurance has faxed an appeal form to our office. She is requesting this is completed. Please call [employer] [phone] at 8-5pm central time. Please follow up with the daughter. [facility]05-09-2025 Miscellaneous Notes* Telephone Encounter - [place] Tete Boucher - 12/09/2024 2:29 PM EDT jj Martinez called and stated lidocaine patches are denied and the insurance has faxed an appeal form to our office. She is requesting this is completed. Please call [employer] [phone] at 8-5pm central time. Please follow up with the daughter. * Telephone Encounter - Adonay Marquez LPN - 12/08/2024 1:33 PM EDT PA submitted. Response pending. * Telephone Encounter - Norma Long - 12/08/2024 10:19 AM EDT Patient Juan ochoa is calling Sahra Guy MD today to request a prior authorization forthe lidocaine 5[facility] [place] [address] Please call daughter with updates on this PA Patient has been identified by name and birthdate. Person calling: daughter: Juan Call patient daughter Juan [phone] (home) [phone] (cell) Was an appointment scheduled: No Closing statement: Prior Auth needed for the Lidocaine Norma Monroe documented in this encounterUk Healthcare05-09-2025 NoteHNO ID: [id number] Author: ZAYNAB VALENCIA DO Service: Hospital Medicine Author Type: Physician Type: Progress Notes Filed: 12/10/2024 02:15 Note Text: DEPARTMENT OF HOSPITAL MEDICINE PROGRESS NOTE SERVICE DATE: 12/09/2024 SERVICE TIME: 2:14 PM Hospital Medicine/Primary Attending: Zaynab Valencia DO NIGHT AND WEEKEND COVERAGE: [place] COVERAGE: Days: [phone], please page attending physician. Nights: [phone], please page [place] [facility] Night coverage pager [phone]. Subjective INTERVAL HPI: denies any chest pain [...] Line Duration Peripheral 12/08/24 1631 [facility] Left Antecubital 20 Gauge <1 day DATA: Diagnostic tests reviewed for today's visit: Most recent labs Most recent imaging Assessment/Plan Problem List Assessment AND Plan Frequent falls Low back pain Restless legs syndrome (RLS) Post-polio syndrome (HCC) Obstructive sleep apnea on CPAP Fall at residential BMI 37.0-37.9, adult Dysphagia HOSPITAL COURSE: Tena [...] -fall from wheelchair with (more content not included)...[facility] 12-09-2024 NoteHNO ID: [id number] Author: HUONG SANZ, RN Service: Nursing Author Type: Registered Nurse Type: Nursing Progress Note Filed: 12/09/2024 02:31 Note Text: 0000 Spoke to respiratory therapist,patient refused CPAP for tonight. 0100 EKG done.[facility] SpringfieldJgmnitzv57-00-6349 CxucVZGO-BUC-1 (AGENT OF COVID-19) RNA: Not detected INFLUENZA A RNA: Not detected INFLUENZA B RNA: Not detected RESPIRATORY SYNCYTIAL VIRUS (RSV) RNA: Not detectedKettering Health SpringfieldComment on above:Performed By: #### [id number] ####[facility] LABORATORYCLIA [id number] [place] [address] [facility] YSKEMWG10-45-4404 Telephone encounter Note* Telephone Encounter - Sugey [...] is headed home to take Tena to [place] ER since she has other symptoms as well. [facility]05-08-2025 Miscellaneous Notes* Telephone Encounter - Sugey Stover [...] is headed home to take Tena to [place] ER since she has other symptoms as [...] [facility] Please advise. * Telephone Encounter - Malika [...] pain with left-sided sciatica M54.42 CONSULT TO [facility]/SPINE/OCC MED Sahra Guy MD * Telephone Encounter - Wanda Neely RN - 12/02/2024 5:02 PM EDT Answer Assessment - Initial Assessment Questions Requesting a consult to Orthopedics The rehab didn't do anything for the Sciatica And they recommended a cortisone injection. Protocols used: Information Only Call - No Yaxbmx-LDPDP-LI documented in this encounterUk Healthcare05-08-2025 Telephone encounter Note * Telephone Encounter - Corrine Lopez RN - 12/08/2024 1:45 PM EDT Daughter Juan left VM, inquiring regarding previous call. Called and spoke with Anjanaalvin who states she just listened to VM and will be heading back to pt's home to notify EMS for pt to be evaluated in ED. Corrine Lopez RN [facility]05-08-2025 Miscellaneous Notes* Telephone Encounter - Corrine Lopez [...] 12/08/2024 1:30 PM EDT Called Juan at [phone]-left detailed message on identified VM with PCP message below. Called patient at [phone] -no answer. VM not set up-could not [...] or weak to the triager Protocols used: Qafpyl-ACEPL-MN * Telephone Encounter - Alicia Sultana - 12/08/2024 10:55 AM EDT Patient's daughter Juan is calling Sahra Guy MD today with concern regarding patient having nausea and barely eating Patient has been identified by name and birthdate. Duration of symptoms: 5 days Please return call to daughter Juna [phone] Was an appointment scheduled: No Closing statement: Symptom Call: Thank you for calling [facility], your call is very important. A nurse will call in approximately 2-4 hours during business hours. If this is an emergency, please contact 911. Alicia Sultana documented in this encounterUk Healthcare05-08-2025 Miscellaneous Notes* Telephone Encounter - Adonay Marquez LPN - 12/08/2024 1:34 PM EDT Please see triage encounter 12/08/24 * Telephone Encounter - Adonay Marquez LPN - 12/07/2024 5:03 PM EDT Called and spoke with pt and daughter Juan. Stated they will chart picker medication. Pt would like to know [...] SAHRA GUY Pharmacy Information Pharmacy Address Telephone [facility]/pharmacy #[id number] [place] [id number] Sahra Guy MD * Telephone Encounter - Sugey Stover - 12/07/2024 3:18 PM EDT Patient's daughter is calling that the Rx Lidocaine is not covered for the 4% but the 5% is. She isasking if this can be re-ordered as such and sent to [facility] while she is in the [facility] today. Please call Juan if the Rx is being changed/sent. [phone] documented in this encounterUk Healthcare05-08-2025 Telephone encounter Note * Telephone Encounter - Adonay Marquez LPN - 12/08/2024 1:34 PM EDT Please see triage encounter 12/08/24 [facility]05-08-2025 Telephone encounter Note* Telephone Encounter - Adonay Mraquez LPN - 12/08/2024 1:33 PM EDT PA submitted. Response pending. [facility]05-08-2025 Telephone encounter Note* Telephone Encounter - Corrine Lopez RN - 12/08/2024 1:30 PM EDT Called Anjanae at [phone]-left detailed message on identified VM with PCP message below. Called patient at [phone] -no answer. VM not set up-could not leave message. Corrine Lopez RN [facility]05-08-2025 Telephone encounter Note* Telephone Encounter - Sahra Guy MD - 12/08/2024 1:20 PM EDT She should go to ER by ambulance. May have kidney infection causing back pain, sounds like she is dehydrated. Sahra Guy MD [facility]05-08-2025 Telephone encounter Note* Telephone Encounter - Alondra [...] or weak to the triager Protocols used: Mjweto-HSQCI-SR [facility]05-08-2025 Telephone encounter Note* Telephone Encounter - Alicia Sultana - 12/08/2024 10:55 AM EDT Patient's daughter Juan is calling Sahra Guy MD today with concern regarding patient having nausea and barely eating Patient has been identified by name and birthdate. Duration of symptoms: 5 days Please return call to daughter Juan [phone] Was an appointment scheduled: No Closing statement: Symptom Call: Thank you for calling [facility], your call is very important. A nurse will call in approximately 2-4 hours during business hours. If this is an emergency, please contact 911. Aliica Sultana [facility]05-08-2025 Telephone encounter Note* Telephone Encounter - Norma Long - 12/08/2024 10:19 AM EDT Patient daughterJuan is calling Sahra Guy MD today to request a prior authorization forthe lidocaine 5% per pharmacy [facility] in [place] on [address] Please call daughter with updates on this PA Patient has been identified by name and birthdate. Person calling: daughter: Juan Call patient daughter Juan [phone] (home) [phone] (cell) Was an appointment scheduled: No Closing statement: Prior Auth needed for the Lidocaine Norma Monroe [facility]05-07-2025 Telephone encounter Note* Telephone Encounter - Adonay Marquez LPN - 12/07/2024 5:03 PM EDT Called and spoke with pt and daughter Juan. Stated they will chart picker medication. Pt would like to know how long it will take for muscle to recover. Please advise. [facility]05-07-2025 Telephone encounter Note* Telephone Encounter - Sahra Guy MD - 12/07/2024 4:52 PM EDT The following approved medication requests have been transmitted electronically. Requested Prescriptions Signed Prescriptions Disp Refills lidocaine (LIDODERM) 5 % 30 patch 2 Sig: Apply 1 patch as directed once daily. REMOVE AFTER 12 HOURS. Authorizing Provider: SAHRA GUY Pharmacy Information [facility] Address [facility]phone [id number] [address] [place] [id number] Sahra Guy MD [facility]05-07-2025 Telephone encounter Note* Telephone Encounter - Sugey Stover - 12/07/2024 3:18 PM EDT Patient's daughter is calling that the Rx Lidocaine is not covered for the 4% but the 5% is. She isasking if this can be re-ordered as such and sent to [facility] while she is in the [facility] today. Please call Juan if the Rx is being changed/sent. [phone] [facility]05-06-2025 Telephone encounter Note* Telephone Encounter - Adonay Marquez LPN - 12/06/2024 5:43 PM EDT Called and spoke with Nurse Anais. Anais is new but she believes that yes a mobile xray services comes.Faxed over xray orders and lidocaine order. Called and left VM with pt contact Juan. Called andnotified pt. [facility]05-06-2025 Telephone encounter Note* Telephone Encounter - Sahra Guy MD - 12/06/2024 5:19 PM EDT The following approved medication requests have been transmitted electronically. Requested Prescriptions Signed Prescriptions Disp Refills lidocaine HCL 4 % ptmd 60 patch 1 Sig: Apply to painful area once daily, remove after 12 hours Can they do a portable x ray at the facility ? Sahra Guy MD [facility]05-06-2025 Telephone encounter Note* Telephone Encounter - Torri [...] and will clear it.Please advise the patient. [facility]05-05-2025 Telephone encounter Note* Telephone Encounter - Adonay Marquez LPN - 12/05/2024 4:37 PM EDT Received [facility] for [facility] Please advise. [facility]05-05-2025 Telephone encounter Note* Telephone Encounter - Malika Sheikh LPN - 12/05/2024 4:08 PM EDT Mailbox is full. No message left [facility]05-05-2025 Telephone encounter Note* Telephone Encounter - Sahra Guy MD - 12/05/2024 1:20 PM EDT Has she had the lumbar x rays? Order placed in Sep. Back issues handled through spine or pain managemtn department not regular ortho Encounter Diagnosis ICD-10-CM 1. Acute left-sided low back pain with left-sided sciatica M54.42 CONSULT TO [facility]/SPINE/OCC MED Sahra Guy MD [facility]05-02-2025 Telephone encounter Note* Telephone Encounter - Wanda Neely RN - 12/02/2024 5:02 PM EDT Answer Assessment - Initial Assessment Questions Requesting a consult to Orthopedics The rehab didn't do anything for the Sciatica And they recommended a cortisone injection. Protocols used: Information Only Call - No Prdnwl-TZSQD-AB [facility] Work Phone: 1(417) 962-159204-30-2025 NoteHNO ID: [id number] Author: JOAQUIN CHILDRESS CPhT Service: ? Author Type: Plant Accountant Type: Progress Notes Filed: 11/30/2024 09:12 Note [...] to be addressed Joaquin Childress CPhT Value [facility] History of Present illness Narrative* Joaquin [...] concerns to be addressed Joaquin Childress CPhT [facility] Care Pharmacy Team documented in this encounterUk Healthcare04-30-2025 NotePatient Outreach (PHPOHE) TENA CANNON ([id number]) 1940 F Date Time Provider Department 11/30/24 [...] concerns to be addressed Joaquin Childress CPhT [facility] Pharm[facility] Team Allergies As of Date: [...] break" Date Reviewed: 09/16/2024 Reviewed by: Malika Shekih LPN - Fully Assessed Reason for Visit: [...] (LIQUID TEARS OPHTHALMIC) Use in eyes. 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 Placed in provider's inbox for review. [place] to [place] for faxing [facility]03-24-2025 Miscellaneous Notes* Telephone Encounter - Malika Sheikh LPN - 10/24/2024 3:31 PM EDT Received 10/21/2024 from [facility]. Placed in provider's inbox for review. [place] to [place] for faxing documented in this encounterUk Healthcare03-19-2025 Telephone encounter Note * Telephone Encounter - Adonay Marquez LPN - 10/19/2024 5:26 PM EDT Received orders from [facility]. Placed in provider's inbox for review. Route to [place] fax [facility]03-19-2025 Miscellaneous Notes* Telephone Encounter - Adonay Marquez LPN - 10/19/2024 5:26 PM EDT Received orders from [facility]. Placed in provider's inbox for review. Route to [place] fax documented in this encounterUk Healthcare03-12-2025 Telephone encounter Note * Telephone Encounter - Adonay Marquez LPN - 10/12/2024 4:27 PM EDT Verbal order given [facility]03-12-2025 Miscellaneous Notes* Telephone Encounter - Adonay Marquez LPN - 10/12/2024 4:27 PM EDT Verbal order given * Telephone Encounter - Leonid Leal APRN.CNP - 10/12/2024 4:17 PM EDT Yes, please give verbal order Leonid Leal APRN.SUPERVISOR ORCHARD * Telephone Encounter - Cris Rascon - 10/12/2024 2:02 PM EDT Tena is calling Sahra Guy MD today with concern regarding PT Eval Physical therapy once a week for eight weeks. Patient has been identified by name and birthdate. Duration of symptoms: N/A Person calling: [facility] Physical therapy Closing statement: Results or non-symptom based questions: Thank you for calling [facility], your call will be returned within the next business day. Cris Boucher documented in this encounterUk Healthcare03-12-2025 Telephone encounter Note * Telephone Encounter - Leonid Leal APRN.CNP - 10/12/2024 4:17 PM EDT Yes, please give verbal order Leonid Leal APRN.CNP [facility]03-12-2025 Telephone encounter Note* Telephone Encounter - Cris Rascon - 10/12/2024 2:02 PM EDT Tena is calling Sahra Guy MD today with concern regarding PT Eval Physical therapy once a week for eight weeks. Patient has been identified by name and birthdate. Duration of symptoms: N/A Person calling: [facility] Physical therapy Closing statement: Results or non-symptom based questions: Thank you for calling [facility], your call will be returned within the next business day. Cris Boucher [facility]03-11-2025 Telephone encounter Note* Telephone Encounter - Malika Sheikh LPN - 10/11/2024 1:59 PM EDT Verbal order given to per Dr Guy's original order for OT. [facility]03-11-2025 Miscellaneous Notes* Telephone Encounter - Malika Sheikh LPN - 10/11/2024 1:59 PM EDT Verbal order given to per Dr Guy's original order for OT. * Telephone Encounter - Rachel Stacy - 10/11/2024 1:13 PM EDT Jonathon from [facility] is calling for a verbal order for patient's home health care physical therapy. documented in this encounterUk Healthcare03-11-2025 Telephone encounter Note * Telephone Encounter - Rachel Stacy - 10/11/2024 1:13 PM EDT Jonathon from [facility] is calling for a verbal order for patient's home health care physical therapy. [facility] Work Phone: [phone] Telephone encounter Note* Telephone Encounter - Malika Sheikh LPN - 10/11/2024 12:49 PM EDT Orders faxed. [facility]03-11-2025 Miscellaneous Notes* Telephone Encounter - Malika Sheikh LPN - 10/11/2024 12:49 PM EDT Orders faxed. 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 Muscle strain of lower leg, unspecified laterality, initial encounter S86.919A CONSULT TO PHYSICAL THERAPY CONSULT TO SHIP LOADER 3. Falls frequently R29.6 CONSULT TO SHIP LOADER Please fax order , does she know [...] calling: self Call patient at: at home [phone] (home) [phone] (cell) Was an appointment scheduled: No Closing statement: Results or non-symptom based questions: Thank you for calling [facility], your call will be returned within the next business day. Tete Boucher documented in this encounterUk Healthcare03-11-2025 Telephone encounter Note * Telephone Encounter - Ninfa Erwin RN - 10/11/2024 10:21 AM EDT Patient called and LVM on Nurse Triage line; [facility], phone number is [phone] [facility]03-10-2025 Telephone encounter Note* Telephone Encounter - Malika Sheikh LPN - 10/10/2024 3:51 PM EDT Patient will call back with name of therapy that goes to her facility [facility]03-10-2025 Telephone encounter Note* Telephone Encounter - Sahra Guy MD - 10/10/2024 2:07 PM EDT Encounter Diagnosis ICD-10-CM 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 Muscle strain of lower leg, unspecified laterality, initial encounter S86.919A CONSULT TO PHYSICAL THERAPY CONSULT TO SHIP LOADER 3. Falls frequently R29.6 CONSULT TO SHIP LOADER Please fax order , does she know which agency comes to her facility Sahra Guy MD [facility]03-06-2025 Telephone encounter Note* Telephone Encounter - Malika Sheikh LPN - 10/06/2024 4:02 PM EST Patient wanting an OT referral to educate and advise patient on ways not to fall in the bathroom. [facility]03-06-2025 Telephone encounter Note* Telephone Encounter - Sahra Guy MD - 10/06/2024 10:33 AM EST Generally speaking, physical therapy addresses lower extremity issue. Happy to initiate referral Therapy order placed. 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 Muscle strain of lower leg, unspecified laterality, initial encounter S86.919A CONSULT TO PHYSICAL THERAPY Fax to facility Sahra Guy MD [facility]03-06-2025 Telephone encounter Note* Telephone Encounter - Tete [...] calling: self Call patient at: at home [phone] (home) [phone] (cell) Was an appointment scheduled: No Closing statement: Results or non-symptom based questions: Thank you for calling [facility], your call will be returned within the next business day. Tete Boucher [facility]02-24-2025 Telephone encounter Note* Telephone Encounter - Curtis Ruiz RN - 09/26/2024 5:22 PM EST Spoke to patient who was advised of provider's message and verbalized understanding. [facility]02-24-2025 Miscellaneous Notes* Telephone Encounter - Curtis [...] 7 days. Pharmacy Information Pharmacy Address Telephone [facility]/pharmacy #[id number] [place] [id number] Sahra Guy MD * Telephone Encounter [...] rash) Radiates to toes Protocols used: Hip Kfab-JEFBI-SE * Telephone Encounter - [place] Tete Boucher - 09/23/2024 4:24 PM EST Tena is calling Sahra Guy MD today with left hip pain. It is radiating down to her toe; describes anterior pain. She is seeking medical advice. Please call today. Patient has been identified by name and birthdate. Duration of symptoms: N/A Person calling: self Call patient at: at home [phone] (home) [phone] (cell) Was an appointment scheduled: No Closing statement: Symptom Call: Thank you for calling [facility], your call is very important. A nurse will call in approximately 2-4 hours during business hours. If this is an emergency, please contact 911. Tete Boucher documented in this encounterUk Healthcare02-24-2025 Telephone encounter Note * Telephone Encounter - [...] 7 days. Pharmacy Information Pharmacy Address Telephone [facility]/pharmacy #[id number] [place] [id number] Sahra Guy MD [facility]02-24-2025 Telephone encounter Note* Telephone Encounter - Cris Rascon - 09/26/2024 2:02 PM EST Patient is calling back in asking if orders for xray were put in? Wants to know what kind of pain medication Dr. Guy would prescribe she is not wantiing to get something strong. Please give patient a call back. Cris Boucher [facility]02-24-2025 Telephone encounter Note* Telephone Encounter - Malika Sheikh LPN - 09/26/2024 10:23 AM EST LM for patient to call office. [facility]02-24-2025 Telephone encounter Note* Telephone Encounter - Sahra Guy MD - 09/26/2024 9:26 AM EST Does she need some pain meds? Sahra Guy MD [facility]02-24-2025 Telephone encounter Note* Telephone Encounter - [...] rash) Radiates to toes Protocols used: Hip Yhhu-DSGCF-ZR [facility]02-21-2025 Telephone encounter Note* Telephone Encounter - Tete Melchor - 09/23/2024 4:24 PM EST Tena is calling Sahra Guy MD today with left hip pain. It is radiating down to her toe; describes anterior pain. She is seeking medical advice. Please call today. Patient has been identified by name and birthdate. Duration of symptoms: N/A Person calling: self Call patient at: at home [phone] (home) [phone] (cell) Was an appointment scheduled: No Closing statement: Symptom Call: Thank you for calling [facility], your call is very important. A nurse will call in approximately 2-4 hours during business hours. If this is an emergency, please contact 911. Tete Boucher [facility]02-21-2025 Telephone encounter Note* Telephone Encounter - Malika Sheikh LPN - 09/23/2024 10:05 AM EST Received 09/23/2024 from [facility] Placed in provider's inbox for review. Route to [place] for faxing. [facility]02-21-2025 Miscellaneous Notes* Telephone Encounter - Malika Sheikh LPN - 09/23/2024 10:05 AM EST Received 09/23/2024 from [facility] Placed in provider's inbox for review. Route to [place] for faxing. documented in this encounterUk Healthcare02-14-2025 NoteHNO ID: [id number] Author: SAHRA GUY MD Service: ? Author [...] the record reflects my (more content not included)...[facility]02-14-2025 History of Present illness Narrative* Sahra [...] 2024 12:44 PM documented in this encounterCleveland [id number] Telephone encounter Note * Telephone Encounter - Sugey Stover - 09/09/2024 10:56 AM EST Patient called back regarding orders needed. Orders were faxed to : [facility] [phone] [facility]02-07-2025 Miscellaneous Notes* Telephone Encounter - Sugey Stover - 09/09/2024 10:56 AM EST Patient called back regarding orders needed. Orders were faxed to : [facility] [phone] * Telephone Encounter - Cris Rascon - 09/09/2024 10:45 AM EST Tena is calling Sahra Guy MD today with concern regarding Orders Patient is there to get Lab work. If you can please FAX lab orders to them. FAX [phone]. Patient has been identified by name and birthdate. Duration of symptoms: N/A Person calling: Daphnie Forte Was an appointment scheduled: No Closing statement: Results or non-symptom based questions: Thank you for calling [facility], your call will be returned within the next business day. Cris Hernandez Pss documented in this encounterUk Healthcare02-07-2025 Telephone encounter Note * Telephone Encounter - Cris Rascon - 09/09/2024 10:45 AM EST Tena is calling Sahra Guy MD today with concern regarding Orders Patient is there to get Lab work. If you can please FAX lab orders to them. FAX [phone]. Patient has been identified by name and birthdate. Duration of symptoms: N/A Person calling: Daphnie Fotre Was an appointment scheduled: No Closing statement: Results or non-symptom based questions: Thank you for calling [facility], your call will be returned within the next business day. Cris Hernandez Pss [facility]02-04-2025 Telephone encounter Note* Telephone Encounter - Inga Castellano - 09/06/2024 11:37 AM EST Called and scheduled pt f/u. She wanted PCP to have results prior to appt so she is getting lab drawn in [place]. [facility]02-04-2025 Miscellaneous Notes* Telephone Encounter - Inga Castellano [...] requesting a call back from a nurse. [phone] * Telephone Encounter - Malika Sheikh LPN [...] OK Sahra Guy MD documented in this encounterUk Healthcare02-03-2025 Telephone encounter Note * Telephone Encounter - Sahra Guy MD - 09/05/2024 10:04 AM EST We can see her any time and do the repeat lab . Sahra Guy MD [facility]01-31-2025 Telephone encounter Note* Telephone Encounter - Adonay Marquez LPN - 09/02/2024 4:00 PM EST Called and informed pt of pcp interpretation and recommendation. Pt would like to schedule a followup and have a repeat lab draw in the office. Please assist pt with scheduling [facility]01-31-2025 Telephone encounter Note* Telephone Encounter - Sugey Stover - 09/02/2024 2:08 PM EST Patient calling requesting a call back from a nurse. [phone] [facility]01-31-2025 Telephone encounter Note* Telephone Encounter - Malika Sheikh LPN - 09/02/2024 12:17 PM EST LM for patient to call office. She had assisted living nurse call office in separate encounter [facility]01-31-2025 Telephone encounter Note* Telephone Encounter - Malika Sheikh LPN - 09/02/2024 12:15 PM EST See previous encounter [facility]01-31-2025 Miscellaneous Notes* Telephone Encounter - Malika Sheikh LPN - 09/02/2024 12:15 PM EST See previous encounter * Telephone Encounter - [place] Tete Boucher - 09/02/2024 11:10 AM EST Tena is a patient of Sahra Guy MD today LOBO Garcia called from the [facility] facility and stated the patient wants to find out her lab test results. Per Radha, the patient administers her own medications so it is fine to speak with the patient, please call her today. Patient has been identified by name and birthdate. Duration of symptoms: N/A Person calling: self Call patient at: on cell [phone] (home) [phone] (cell) Was an appointment scheduled: No Closing statement: Results or non-symptom based questions: Thank you for calling [facility], your call will be returned within the next business day. Tete Mora Pss documented in this encounterUk Healthcare01-31-2025 Telephone encounter Note * Telephone Encounter - [place] Tete Boucher - 09/02/2024 11:10 AM EST Tena is a patient of Sahra Guy MD today LOBO Garcia called from the [facility] facility and stated the patient wants to find out her lab test results. Per Radha, the patient administers her own medications so it is fine to speak with the patient, please call her today. Patient has been identified by name and birthdate. Duration of symptoms: N/A Person calling: self Call patient at: on cell [phone] (home) [phone] (cell) Was an appointment scheduled: No Closing statement: Results or non-symptom based questions: Thank you for calling [facility], your call will be returned within the next business day. Tete Mora Pss [facility]01-30-2025 Telephone encounter Note* Telephone Encounter - Sahra Guy MD - 09/01/2024 3:13 PM EST Lipid shows midley elevated LDL "bad" cholesterol , the hdl cholesterol is quite low. That's a change from previous. Not sure this is a correct value. Don't think we'd do anything different, but could repeat the lab at some point. Blood count OK Sahra Guy MD [facility]01-30-2025 Telephone encounter Note* Telephone Encounter - Adonay Marquez LPN - 09/01/2024 3:10 PM EST Results entered into pt chart. Please advise. [facility]01-30-2025 Miscellaneous Notes* Telephone Encounter - Adonay Marquez [...] calling: self Call patient at: at home [phone] (home) [phone] (cell) Was an appointment scheduled: No Closing statement: Results or non-symptom based questions: Thank you for calling [facility], your call will be returned within the next business day. Tete Boucher documented in this encounterUk Healthcare01-30-2025 Telephone encounter Note * Telephone Encounter - Sugey Stover - 09/01/2024 1:21 PM EST Rachel with [employer] is calling Sahra Guy MD today to request this month's Office visit Notes. Faxed to Rachel at fax number [phone] [facility]01-30-2025 Miscellaneous Notes* Telephone Encounter - Sugey Stover - 09/01/2024 1:21 PM EST Rachel with [employer] is calling Sahra Guy MD today to request this month's Office visit Notes. Faxed to Rachel at fax number [phone] documented in this encounterUk Healthcare01-30-2025 Telephone encounter Note * Telephone Encounter - Sahra Guy MD - 09/01/2024 12:06 PM EST No results in scanned docs, do we have them? [facility]01-29-2025 Telephone encounter Note* Telephone Encounter - [place] Tete Boucher - 08/31/2024 2:09 PM EST Tena is calling Sahra Guy MD today to confirm that her las test results from outside facility were received. She would like to speak with the doctor to discuss the results. Patient has been identified by name and birthdate. Duration of symptoms: N/A Person calling: self Call patient at: at home [phone] (home) [phone] (cell) Was an appointment scheduled: No Closing statement: Results or non-symptom based questions: Thank you for calling [facility], your call will be returned within the next business day. Tete Dumonting Pss [facility]01-22-2025 Telephone encounter Note* Telephone Encounter - Adonay Marquez LPN - 08/24/2024 10:10 AM EST Received orders from [facility]. Placed in provider's inbox for review. Route to [place] fax [facility]01-22-2025 Miscellaneous Notes* Telephone Encounter - Adonay Marquez LPN - 08/24/2024 10:10 AM EST Received orders from [facility]. Placed in provider's inbox for review. Route to [place] fax documented in this encounterUk Healthcare01-21-2025 Instructions* Patient Instructions* Sahra Guy MD - [...] review all the medicines you take, even pvsn-qqr-mcgixcy medicines. As you get older, the way [...] have certain medical conditions. documented in this encounterUk Healthcare01-21-2025 NoteHNO ID: [id number] Author: SAHRA GUY MD Service: ? Author [...] Obesity, Class III, BMI 40-49.9 (morbid obesity) ([facility]) Comment: Stable. 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 yes Would you [...] Any memory concerns? Yes documented in this encounterUk Healthcare01-21-2025 NoteHNO ID: [id number] Author: SAHRA GYU MD Service: ? Author Type: Physician Type: [...] directive, such as health care power of contract attorney or living will? yes Would you [...] aids Sahra Guy MD Any memory concerns? [facility] Telephone encounter Note* Telephone Encounter - Adonay Marquez LPN - 08/22/2024 3:37 PM EST Noted. [facility]01-20-2025 Miscellaneous Notes* Telephone Encounter - Adonay Marquez LPN - 08/22/2024 3:37 PM EST Noted. * Telephone Encounter - Norma Long - 08/22/2024 11:03 AM EST Tena is calling Sahra Guy MD today is now using [employer] with a new insurance company( using the [...] calling: self Call patient at: at home [phone] (home) [phone] (cell) Was an appointment scheduled: Yes: Date/Time: 08/23/[address] Guy Closing statement: Results or non-symptom based questions: Thank you for calling [facility], your call will be returned within the next business day. Norma Monroe documented in this encounterUk Healthcare01-20-2025 Telephone encounter Note * Telephone Encounter - Norma Long - 08/22/2024 11:03 AM EST Tena is calling Sahra Guy MD today is now using [employer] with a new insurance company( using the [...] calling: self Call patient at: at home [phone] (home) [phone] (cell) Was an appointment scheduled: Yes: Date/Time: 08/23/[address] Guy Closing statement: Results or non-symptom based questions: Thank you for calling [facility], your call will be returned within the next business day. Norma Monroe [facility]01-15-2025 Telephone encounter Note* Telephone Encounter - Malika Sheikh LPN - 08/17/2024 10:57 AM EST Verbal order given for PT and OT. Per home health patient did not know that she had an appointment for the . Call placed to patient and voicemail left stating time and date of appointment. Message left that visit is needed for insurance to authorize therapy [facility]01-15-2025 Miscellaneous Notes* Telephone Encounter - Malika Sheikh [...] order on behalf of Dr. Malena Leal APRN.SUPERVISOR [employer]CHARD * Telephone Encounter - Alicia Sultana - 08/17/2024 9:23 AM EST Rachel from [employer] calling back and states that since patient is scheduled with Dr. Guy on 08/23 they will be able to use his name as a certifying provider. [employer] asking for a verbal order from Dr. Guy. Please return call to [phone] * Telephone Encounter - Adonay Marquez LPN [...] change your name." Copied and pasted from [email or web address] Please advise. * Telephone Encounter - Leonid [...] - 08/15/2024 2:13 PM EST Rachel with [facility] is calling regarding Home PT and [...] flag will happen. Please call Rachel at [phone] documented in this encounterUk Healthcare01-15-2025 Telephone encounter Note * Telephone Encounter - Leonid Leal APRN.CNP - 08/17/2024 10:48 AM EST Yes, please give verbal order on behalf of Dr. Malena Leal APRN.ANTONY [facility]01-15-2025 Telephone encounter Note* Telephone Encounter - Alicia Sultana - 08/17/2024 9:23 AM EST Rachel from [employer] calling back and states that since patient is scheduled with Dr. Guy on 08/23 they will be able to use his name as a certifying provider. [employer] asking for a verbal order from Dr. Guy. Please return call to [phone] [facility]01-13-2025 Telephone encounter Note* Telephone Encounter - Adonay [...] change your name." Copied and pasted from [email or web address] Please advise. [facility]01-13-2025 Telephone encounter Note* Telephone Encounter - Leonid [...] about provider's name change. Leonid Leal APRN.ANTONY [facility]01-13-2025 Telephone encounter Note* Telephone Encounter - [...] flag will happen. Please call Rachel at [phone] [facility]01-09-2025 NoteHNO ID: [id number] Author: LEONID LEAL APRN.ANTONY Service: ? Author [...] Keflex [Cephalexin], Vioxx [Rofecoxib], Novocain [Procaine Hcl], Vanderbilt-3 Fish Oil [Vanderbilt-3 Fatty Acids-Vitamin E], Advil [Ibuprofen], and Asa [...] Age of Onset He (more content not included)...[facility]01-09-2025 History of Present illness Narrative* Leonid Leal APRN.SUPERVISOR [employer]CHARD - 08/11/2024 1:41 PM EST Images from the original note were not included. This note was created using [employer]apanelriter. Subjective Tena Cannon is a 83 year [...] Keflex [Cephalexin], Vioxx [Rofecoxib], Novocain [Procaine Hcl], Vanderbilt-3 Fish Oil [Vanderbilt-3 Fatty Acids-Vitamin E], Advil [Ibuprofen], and Asa [...] alcohol (LIQUID TEARS OPHTHALMIC) Use in eyes. rutin/hesp/bioflav/C/aedzye006 (BIOFLEX ORAL) Take 1 capsule by mouth [...] 0 Leonid Leal APRN.ANTONY documented in this encounterUk Healthcare01-09-2025 Telephone encounter Note * Telephone Encounter - [...] Denies 11. : N/a Protocols used: Back Oaok-YDOQQ-RZ [facility]01-09-2025 Miscellaneous Notes* Telephone Encounter - Alondra Villalta [...] Denies 11. : N/a Protocols used: Back Bgfi-NLUBL-RL * Telephone Encounter - Cris Rascon - [...] calling: self Call patient at: at home [phone] (home) [phone] (cell) Was an appointment scheduled: No Closing statement: Symptom Call: Thank you for calling [facility], your call is very important. A nurse will call in approximately 2-4 hours during business hours. If this is an emergency, please contact 911Dagmar Boucher documented in this encounterUk Healthcare01-09-2025 Telephone encounter Note * Telephone Encounter - [...] calling: self Call patient at: at home [phone] (home) [phone] (cell) Was an appointment scheduled: No Closing statement: Symptom Call: Thank you for calling [facility], your call is very important. A nurse will call in approximately 2-4 hours during business hours. If this is an emergency, please contact 911. Cris Boucher [facility]12-03-2024 Telephone encounter Note* Telephone Encounter - Sugey [...] next office visit in primary care: 08/23/2024 [facility] [employer] Mail order Please advise. Thank you. Sugey Stover. [facility]12-03-2024 Miscellaneous Notes* Telephone Encounter - Sugey Stover [...] next office visit in primary care: 08/23/2024 [facility] [employer] Mail order Please advise. Thank you. Sugey Stover. documented in this encounterUk Healthcare11-21-2024 Telephone encounter Note * Telephone Encounter - Adonay Marquez LPN - 06/23/2024 3:17 PM EST Received DNR order from [facility]. Placed in provider's inbox for review. Route to [place] fax [facility]11-21-2024 Miscellaneous Notes* Telephone Encounter - Adonay Marquez LPN - 06/23/2024 3:17 PM EST Received DNR order from [facility]. Placed in provider's inbox for review. Route to [place] fax documented in this encounterCleveland [id number] Telephone encounter Note * Telephone Encounter - Sahra Guy MD - 06/20/2024 5:27 PM EST The following approved medication requests have been transmitted electronically. Requested Prescriptions Signed Prescriptions Disp Refills oxybutynin ER (DITROPAN XL) 10 mg 24 hr tablet 90 tablet 1 Sig: Take 1 tablet by mouth once daily. Authorizing Provider: SAHRA GUY MD [facility]11-18-2024 Miscellaneous Notes* Telephone Encounter - Sahra Guy [...] 20, 2024 5:23 PM documented in this encounterUk Healthcare11-18-2024 Telephone encounter Note * Telephone Encounter - [...] Marquez LPN June 20, 2024 5:23 PM [facility]11-01-2024 Telephone encounter Note* Telephone Encounter - Malika Sheikh LPN - 06/03/2024 8:54 AM EDT Weights have been declined. Patient in motorized wheelchair. Voicemail left for patient. [facility]11-01-2024 Miscellaneous Notes* Telephone Encounter - Malika Sheikh [...] calling: self Call patient at: at home [phone] (home) [phone] (cell) Was an appointment scheduled: No Closing statement: Results or non-symptom based questions: Thank you for calling [facility], your call will be returned within the next business day. Cris Boucher documented in this encounterUk Healthcare11-01-2024 Telephone encounter Note * Telephone Encounter - Malika Sheikh LPN - 06/03/2024 8:35 AM EDT Placed in mail for patient. [facility]11-01-2024 Miscellaneous Notes* Telephone Encounter - Malika Sheikh [...] calling: self Call patient at: at home [phone] (home) [phone] (cell) Was an appointment scheduled: No Closing statement: Results or non-symptom based questions: Thank you for calling [facility], your call will be returned within the next business day. Norma Monroe documented in this encounterUk Healthcare10-31-2024 Telephone encounter Note * Telephone Encounter - Sahra Guy MD - 06/02/2024 5:13 PM EDT 197 lbs., Sahra Guy MD [facility]10-31-2024 Telephone encounter Note* Telephone Encounter - Norma Long - 06/02/2024 2:14 PM EDT Tena is calling Sahra Guy MD today to request patient medication list be mailed to her please . The address has been verified Patient has been identified by name and birthdate. Person calling: self Call patient at: at home [phone] (home) [phone] (cell) Was an appointment scheduled: No Closing statement: Results or non-symptom based questions: Thank you for calling [facility], your call will be returned within the next business day. Norma Monroe [facility]10-31-2024 Telephone encounter Note* Telephone Encounter - Cris [...] calling: self Call patient at: at home [phone] (home) [phone] (cell) Was an appointment scheduled: No Closing statement: Results or non-symptom based questions: Thank you for calling [facility], your call will be returned within the next business day. Cris Boucher [facility]10-16-2024 Telephone encounter Note* Telephone Encounter - Adonay Marquez LPN - 05/18/2024 11:52 AM EDT RSV vaccine is not covered in office with pt insurance. Please assist pt in scheduling office visitwith provider for a check up. [facility]10-16-2024 Miscellaneous Notes* Telephone Encounter - Adonay Marquez [...] doctor since December. Please advise her at [phone] documented in this encounterUk Healthcare10-16-2024 Telephone encounter Note * Telephone Encounter - [...] doctor since December. Please advise her at [phone] [facility]09-04-2024 Telephone encounter Note* Telephone Encounter - Jennifer [...] Giron LPN April 06, 2024 11:26 AM [facility]09-04-2024 Miscellaneous Notes* Telephone Encounter - Jennifer Giron [...] 06, 2024 11:26 AM documented in this encounterUk Healthcare08-07-2024 Telephone encounter Note * Telephone Encounter - Malika Sheikh LPN - 03/09/2024 2:18 PM EDT Labs placed in mail. Voicemail left for patient. [facility]08-07-2024 Miscellaneous Notes* Telephone Encounter - Malika Sheikh LPN - 03/09/2024 2:18 PM EDT Labs placed in mail. Voicemail left for patient. * Telephone Encounter - Leonid Roach APRN.CNP - 03/09/2024 1:29 PM EDT Her labs are all within normal limits. Leonid Roach APRN.[employer] * Telephone Encounter - Stephanie Rayo RN - 03/09/2024 9:37 AM EDT Labs are resulted from [facility]. Can you review Vit D, Lipid, CMP, CBC, A1C? Results have been mailed to the patient at her request: Tena Cannon [id number] [address] [place] [address] Dr Ayers [address] [place] [id number] * Telephone Encounter - Stephanie Rayo RN [...] a call to advise labs drawn at [facility] results and when provider reviews those labs patient is asking for them to be mailed to her, patient address has been verified. Patient has been identified by name and birthdate. Duration of symptoms: N/A Person calling: self Call patient at: at home [phone] (home) [phone] (cell) Was an appointment scheduled: No Closing statement: Results or non-symptom based questions: Thank you for calling [facility], your call will be returned within the next business day. Norma Monroe documented in this encounterUk Healthcare08-07-2024 Telephone encounter Note * Telephone Encounter - Leonid Roach APRN.CNP - 03/09/2024 1:29 PM EDT Her labs are all within normal limits. Leonid Roach APRN.CNP [facility]08-07-2024 Telephone encounter Note* Telephone Encounter - Stephanie Rayo RN - 03/09/2024 9:37 AM EDT Labs are resulted from [facility]. Can you review Vit D, Lipid, CMP, CBC, A1C? Results have been mailed to the patient at her request: Tena Cannon [id number] [address] [place] [address] Dr Ayers [address] [place] [id number] [facility]08-05-2024 Telephone encounter Note* Telephone Encounter - Stephanie Rayo RN - 03/07/2024 12:09 PM EDT Called patient. March 03 was the draw date. When the results are reviewed she would like them mailed. Patient is reminded external labs take longer to review due to faxing. Patient voiced understanding. Please notify patient when faxed results are received and reviewed. [facility]08-05-2024 Telephone encounter Note* Telephone Encounter - Norma Long - 03/07/2024 10:26 AM EDT Tena is calling Sahra Guy MD today to request a call to advise labs drawn at [facility] results and when provider reviews those labs patient is asking for them to be mailed to her, patient address has been verified. Patient has been identified by name and birthdate. Duration of symptoms: N/A Person calling: self Call patient at: at home [phone] (home) [phone] (cell) Was an appointment scheduled: No Closing statement: Results or non-symptom based questions: Thank you for calling [facility], your call will be returned within the next business day. Norma Monroe [facility]07-26-2024 Telephone encounter Note* Telephone Encounter - [place] Tete Boucher - 02/26/2024 4:43 PM EDT Patient returned phone call; she was notified that the labs were faxed, as she requested. [facility]07-26-2024 Miscellaneous Notes* Telephone Encounter - [place] Tete Boucher - 02/26/2024 4:43 PM EDT [...] request her lab orders are sent to: [facility], fax to: [phone]. Please notify patient once this is completed. Patient has been identified by name and birthdate. Duration of symptoms: N/A Person calling: self Call patient at: at home [phone] (home) [phone] (cell) Was an appointment scheduled: No Closing statement: Results or non-symptom based questions: Thank you for calling [facility], your call will be returned within the next business day. Tete Boucher documented in this encounterUk Healthcare07-26-2024 Telephone encounter Note * Telephone Encounter - Malika Sheikh LPN - 02/26/2024 4:41 PM EDT Labs faxed. Voicemail left for patient. [facility]07-26-2024 Telephone encounter Note* Telephone Encounter - Tete Melchor - 02/26/2024 2:11 PM EDT Tena is calling Sahra Guy MD today patient is calling to request her lab orders are sent to: [facility], fax to: [phone]. Please notify patient once this is completed. Patient has been identified by name and birthdate. Duration of symptoms: N/A Person calling: self Call patient at: at home [phone] (home) [phone] (cell) Was an appointment scheduled: No Closing statement: Results or non-symptom based questions: Thank you for calling [facility], your call will be returned within the next business day. Tete Boucher [facility]07-25-2024 Telephone encounter Note* Telephone Encounter - Adonay Marquez LPN - 02/25/2024 4:03 PM EDT Called and informed pt. [facility]07-25-2024 Miscellaneous Notes* Telephone Encounter - Adonay Marquez [...] advise. Adonay Marquez LPN documented in this encounterUk Healthcare07-23-2024 Telephone encounter Note * Telephone Encounter - Leonid Roach APRN.CNP - 02/23/2024 9:10 AM EDT Patient is due for fasting labs, orders placed Leonid Roach APRN.CNP [facility]07-23-2024 Telephone encounter Note* Telephone Encounter - Adonay Marquez LPN - 02/23/2024 8:30 AM EDT Pharmacy verified in [facility] Patient has been identified by name and [...] 09/25/2022 5.0 Please advise. Adonay Marquez LPN [facility]06-24-2024 Telephone encounter Note* Telephone Encounter - Kimberly [...] Boucher January 25, 2024 1:40 PM T [facility]06-24-2024 Miscellaneous Notes* Telephone Encounter - Kimberly Nelson [...] 25, 2024 1:40 PM documented in this encounterUk Healthcare06-12-2024 Telephone encounter Note * Telephone Encounter - Sahra Guy MD - 01/13/2024 8:33 AM EDT The following approved medication requests have been transmitted electronically. Requested Prescriptions Signed Prescriptions Disp Refills oxybutynin ER (DITROPAN XL) 10 mg 24 hr tablet 90 tablet 1 Sig: Take 1 tablet by mouth once daily. Authorizing Provider: SAHRA GUY MD [facility]06-12-2024 Miscellaneous Notes* Telephone Encounter - Sahra Guy [...] 12, 2024 4:35 PM documented in this encounterUk Healthcare06-11-2024 Telephone encounter Note * Telephone Encounter - [...] 1 tablet by mouth once daily. Adonay aMrquez LPN January 12, 2024 4:35 PM [facility]05-09-2024 Instructions* Patient Instructions* Sahra Guy MD - 12/10/2023 9:56 AM EDT Try Zyrtec 10 mg daily for allergies , also consider Flonase nasal spray 1 spray each nostril daily documented in this encounterUk Healthcare05-09-2024 History of Present illness Narrative* Sahra Guy [...] ALLERGIES Keflex [Cephalexin], Novacaine [Other], Vioxx [Rofecoxib], Vanderbilt-3 Fish Oil [Vanderbilt-3 Fatty Acids-Vitamin E], Advil [Ibuprofen], and Asa [...] alcohol (LIQUID TEARS OPHTHALMIC) Use in eyes. rutin/hesp/bioflav/C/ynkiax015 (BIOFLEX ORAL) Take 1 capsule by mouth [...] 10, 2023 1:35 PM documented in this encounterUk Healthcare04-25-2024 Telephone encounter Note * Telephone Encounter - Sahra Guy MD - 11/26/2023 3:13 PM EDT Schedule appt. Haven't seen her since March. Sahra Guy MD [facility]04-25-2024 Miscellaneous Notes* Telephone Encounter - Sahra Guy MD - 11/26/2023 3:13 PM EDT Schedule appt. Haven't seen her since March. Sahra Guy MD * Telephone Encounter - Sugey Stover - 11/25/2023 3:47 PM EDT FYI- Patient called and wanted Dr. Guy to know that she is aware of the paperwork being sent to him from [facility], and she agrees and is fine with going into their Assisted Living. She wants to stay there. * Telephone Encounter - Malika Sheikh LPN - 11/25/2023 3:29 PM EDT Received 11/25/2023 from [facility]. Placed in provider's inbox for review. [place] for faxing. documented in this encounterUk Healthcare04-24-2024 Telephone encounter Note * Telephone Encounter - Sugey Stover - 11/25/2023 3:47 PM EDT FYI- Patient called and wanted Dr. Guy to know that she is aware of the paperwork being sent to him from [facility], and she agrees and is fine with going into their Assisted Living. She wants to stay there. [facility]04-24-2024 Telephone encounter Note* Telephone Encounter - Malika Sheikh LPN - 11/25/2023 3:29 PM EDT Received 11/25/2023 from [facility]. Placed in provider's inbox for review. Route to [place] for faxing. [facility]12-11-2023 Miscellaneous Notes* Telephone Encounter - Jennifer Giron LPN - 07/13/2023 1:34 PM EST Last appointment: 03/10/23 Next appointment: none Pharmacy verified in [facility]. Refill(s) requested: Requested Prescriptions Pending Prescriptions Disp Refills oxybutynin ER (DITROPAN XL) 10 mg 24 hr tablet [Pharmacy Med Name: OXYBUTYNIN TAB 10MG ER] 90 tablet 1 Sig: take 1 tablet once daily Order(s) pended. Please advise. Jennifer Giron LPN, CMA documented in this encounterUk Healthcare10-06-2023 Miscellaneous Notes* Telephone Encounter - Stephanie Rayo [...] notify patient. Norma Monroe documented in this encounterUk Healthcare09-21-2023 History of Present illness Narrative* Jeannette Melgar, PT - 04/23/2023 2:49 PM EDT Patient history gathered and found that patient is currently receiving home care. No further evaluation completed this date. Patient provided information regarding adaptive equipment that may be helpful with ADL's. documented in this encounterUk Healthcare09-07-2023 History of Present illness Narrative* Nevaeh Hernandez, [facility]-CUSTOMER MANAGEMENT SPECIALIST - 04/09/2023 2:55 PM EDT Episode Visit Count: 1 Start of Care Date: 04/09/23 Onset Date: 04/03/13 Plan of Care Certification Date: 04/09/23 Next Certification Due Date: 04/09/23 Patient Identified by Name and Date of : Yes [facility] SPEECH THERAPY [...] 90 degrees for all PO, Small Bite/Sip CUSTOMER MANAGEMENT SPECIALIST Recommendations: Diet, Swallowing Precautions, Discontinue Speech Therapy [...] degrees for allPO, Small Bite/Sip Clinical Swallow [place] Swallow Protocol: Pass Oral Pharyngeal Swallow Assessment: [...] Back: States/Identifies TREATMENT: Evaluation: Swallow Eval Func (88372) Evaluation: Swallow Eval Func (93664) Swallow / Dysphagia (34776): Skilled Intervention: Provided education related to a [...] and swallowing strategies. Billing: Clinical Swallow Evaluation (22007) and Dysphagia Treatment (59297) Total time / Length of visit: 50 minutes Session Start Time : 1345 Session Stop Time : 1435 Nevaeh Hernandez CCC-CUSTOMER MANAGEMENT SPECIALIST documented in this encounterUk Healthcare09-07-2023 Miscellaneous Notes* Telephone Encounter - Sara Vasquez [...] Sara Vasquez, RN, BSN documented in this encounterUk Healthcare09-01-2023 History of Present illness Narrative* Ken Trent MD - 04/03/2023 2:00 PM EDT [facility] New Patient Visit Note Consultation [...] (L): absent Jaw jerk: Absent COORDINATION Intact nosjkf-mr-aaru, ekqu-cm-ijev, and rapid alternating movements. No tremor. 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 Ken Trent MD Neuromuscular Medicine (NM) [facility], [facility] documented in this encounterUk Healthcare08-21-2023 Miscellaneous Notes* Telephone Encounter - Adonay Marquez - 03/23/2023 3:25 PM EDT Received OT referral request from [facility]/ [employer]. Placed in provider's inbox for review. Route to [place] fax [phone] documented in this encounterUk Healthcare08-09-2023 Miscellaneous Notes* Telephone Encounter - Sahra Guy [...] 03/11/2023 2:38 PM EDT Pharmacy verified in [facility] Patient has been identified by name and [...] advise. Malika Sheikh LPN documented in this encounterUk Healthcare08-08-2023 History of Present illness Narrative* Sahra Guy [...] 10, 2023 1:37 PM documented in this encounterUk Healthcare05-09-2023 Miscellaneous Notes* Telephone Encounter - Malika Sheikh LPN - 12/09/2022 2:20 PM EDT Received 12/09/2022 from [facility]. Placed in provider's inbox for review. Route to [place] for faxing Patient has no medical contradictions to using hearing aid(s) documented in this encounterUk Healthcare02-28-2023 Miscellaneous Notes* Telephone Encounter - Leonid Roach APRN.CNP - 09/30/2022 11:37 AM EST Requested Prescriptions Signed Prescriptions Disp Refills valACYclovir (VALTREX) 1 gram 21 tablet 0 Sig: Take 1 tablet by mouth three times daily for 7 days. Authorizing Provider: LEONID ROACH Pharmacy Information Pharmacy Address Telephone [id number] [place] [id number] * Telephone Encounter - Adonay Marquez - 09/30/2022 11:12 AM EST [facility] * Telephone Encounter - Alicia Sultana - 09/30/2022 10:51 AM EST Patient was prescribed valACYclovir (VALTREX) 1 gram. Medication was sent to wrong pharmacy. Please send to [facility] in [place]. documented in this encounterUk Healthcare02-24-2023 Miscellaneous Notes* Telephone Encounter - Yelena King Ma - 09/26/2022 11:30 AM EST Patient notified and voiced understanding * Telephone Encounter - Yelena King Ma - 09/26/2022 11:26 AM EST Images from the original note were not included. Theresa Zarate APRN.ANTONY [facility] Triage Nurse [place]; [facility] Please inform patient that her lab results are normal or within the acceptable range. Please ask that she follow recommendations as stated at office visit. Theresa Zarate APRN.SUPERVISOR [employer]CH[employer] documented in this encounterUk Healthcare02-24-2023 Miscellaneous Notes* Telephone Encounter - Cris Stewart RN - 09/26/2022 10:04 AM EST Message to patient, results mailed to her per request. Address checked. * Telephone Encounter - Stephanie Rayo RN - 09/26/2022 9:30 AM EST Images from the original note were not included. Theresa Zarate APRN.[facility] [place]; [facility] Please inform patient that her lab results are normal or within the acceptable range. Please ask that she follow recommendations as stated at office visit. Theresa Zarate APRN.SUPERVISOR [employer]CH[employer] Called patient at [phone]. Left message on voicemail for patient to return call for message from provider. documented in this encounterUk Healthcare02-15-2023 Miscellaneous Notes* Telephone Encounter - Cris Stewart [...] last menstrual period?" N/A Protocols used: Toe Eyqp-JIQPP-VW * Telephone Encounter - Stephanie Rayo RN - 09/17/2022 11:02 AM EST Called patient at [phone] to triage her upcoming appointment with Dr. Guy for big toe redness and pain. Dr. Guy has many openings sooner than this if she needs to move it up. Left message on voicemail for patient to return call to triage. documented in this encounterUk Healthcare01-03-2023 Miscellaneous Notes* Telephone Encounter - Malika Sheikh LPN - 08/05/2022 11:54 AM EST Pharmacy verified in [facility] Patient has been identified by name and [...] advise. Malika Sheikh LPN documented in this encounterUk Healthcare12-12-2022 Miscellaneous Notes* Telephone Encounter - Malkia Sheikh LPN - 07/14/2022 3:52 PM EST Received 07/14/2022 from Patient. Placed in provider's inbox for review. Route to [place] for mailing Disability license plate form documented in this encounterUk Healthcare11-10-2022 Instructions* Patient Instructions* Leonid Roach APRN.SUPER[employer]OR [employer] - 06/12/2022 10:05 AM EST FACT SHEET FOR PATIENTS, PARENTS, AND CAREGIVERS EMERGENCY USE AUTHORIZATION (EUA) OF PAXLOVID FOR CORONAVIRUS DISEASE 2019 (COVID-19) You are being given this Fact Sheet because your healthcare provider believes it is necessary to provide you with PAXLOVID for the treatment of ixvx-xo-pyirquwd coronavirus disease (COVID-19) caused by the SARS-CoV-2 [...] virus. COVID-19 illnesses have ranged from very jjfp-zy-wxsasi, including illness resulting in . While information [...] is an investigational medicine used to treat wiqb-zq-myhhkmfd COVID-19 in adults and children [12 years [...] of using PAXLOVID to treat people with dohs-po-lgrkchqf COVID-19. The FDA has authorized the emergency use of PAXLOVID for the treatment of yuxu-on-njhshtam COVID-19in adults and children [12 years of [...] the medicines you take, including prescription and aalq-dzc-fsrtygu medicines, vitamins, and herbal supplements. Some medicines [...] oral midazolam Apalutamide Carbamazepine, phenobarbital, phenytoin Rifampin [place] s Wort (hypericum perforatum) Taking PAXLOVID with [...] (remdesivir) is FDA-approved for the treatment of ouja-mn-dofrzsam COVID-19 in certain adults and children. Talk with your doctor to see if Veklury is appropriate for you. Like PAXLOVID, FDA may also allow for the emergency use of other medicines to treat people with COVID-19. Go to https://www.fda.gov/nikidzegy-gmvznmqqmhya-urfmsdakooh/hvf-ykjse-vrzrccxiwe-and- policy-framework/cgmrrpnjv-kuv-adqkxtrzdjheu for information on the emergency use of [...] if I am or ? There is histology technologist treating women or mothers with PAXLOVID. [...] not go away. Report side effects to [employer] at www.fda.gov/medSub10 Systems or call 2-430-PFS3676 or you can reportside effects to [employer] at the contact information provided below. Website Fax number Telephone number wwwHere On Biz How should I store PAXLOVID? Store PAXLOVID [...] (EUA). The EUA is supported by a Coverer of Health and Human Service (HHS) declaration that circumstances exist to justify the emergency use of drugs and biological productsduring the COVID-19 pandemic. PAXLOVID for the treatment of tdbt-ui-inuymsll COVID-19 in adults and children [12 years [...] telephone number provided below. Website Telephone number wwwHermes IQRRUTV23aowrEv.com (5-755-Z90-ZAMC) You can also go to www.PathAR or call for more information. [employer]WT Distributed by [employer] [place] [address] LAB-1494-2.1 Revised: 18 October 2021 FACT SHEET FOR PATIENTS, PARENTS, AND CAREGIVERS EMERGENCY USE AUTHORIZATION (EUA) OF PAXLOVID FOR CORONAVIRUS DISEASE 2019 (COVID-19) You are being given this Fact Sheet because your healthcare provider believes it is necessary to provide you with PAXLOVID for the treatment of onpp-tj-wwhwqtbq coronavirus disease (COVID-19) caused by the SARS-CoV-2 [...] virus. COVID-19 illnesses have ranged from very qhzc-pi-dzxcug, including illness resulting in . While information [...] is an investigational medicine used to treat bjdz-aq-gsmppimi COVID-19 in adults and children [12 years [...] of using PAXLOVID to treat people with rvbx-ah-iattjjdc COVID-19. The FDA has authorized the emergency use of PAXLOVID for the treatment of judb-dc-kmyjldji COVID-19in adults and children [12 years of [...] the medicines you take, including prescription and emfj-dlj-pnqhvbr medicines, vitamins, and herbal supplements. Some medicines [...] oral midazolam Apalutamide Carbamazepine, phenobarbital, phenytoin Rifampin [place] s Wort (hypericum perforatum) Taking PAXLOVID with [...] (remdesivir) is FDA-approved for the treatment of jfwm-iu-cpgvtwzc COVID-19 in certain adults and children. Talk with your doctor to see if Veklury is appropriate for you. Like PAXLOVID, FDA may also allow for the emergency use of other medicines to treat people with COVID-19. Go to https://www.fda.gov/swarjpitr-kpkmkdzctytz-ypalmpphrwr/gmd-nepic-ppvsjquaek-and- policy-framework/rvflvspqk-jpf-jxfsbcechnide for information on the emergency use of [...] if I am or ? There is histology technologist treating women or mothers with PAXLOVID. [...] to FDA MedWatch at www.fda.gov/medwatch or call 7-135-CLT8015 or you can reportside effects to [employer]. at the contact information provided below. Website Fax number Telephone number [employer] How should I store PAXLOVID? Store [...] (EUA). The EUA is supported by a [place] of Health and Human Service (HHS) declaration that circumstances exist to justify the emergency use of drugs and biological productsduring the COVID-19 pandemic. PAXLOVID for the treatment of aann-yk-ewrnxczm COVID-19 in adults and children [12 years [...] telephone number provided below. Website Telephone number www[employer] ([phone]) You can also go to www.PathAR or call for more information. Pfizer Distributed by [employer] [place] [address] [id number] Revised: 18 October 2021 documented in this [facility]11-10-2022 History of Present illness Narrative* Leonid Roach APRN.CNP - 06/12/2022 10:02 AM EST Nirmatrelvir/Ritonavir (Paxlovid) Eligibility and Patient Discussion [facility] Formulary Restriction Criteria: Adult outpatients 18 years [...] Telephone time: 9 minutes documented in this encounterUk Healthcare11-09-2022 Miscellaneous Notes* Telephone Encounter - Leonid Roach [...] If not diagnosed by a doctor (or STAFF SCIENTIST/PA), ask "Are there lots of cases (community spread) where you live?" Note: See [facility] health department website, if unsure. Home Test 2. COVID-19 EXPOSURE: "Was there any known exposure to COVID before the symptoms began?" [facility] Definition of close contact: within 6 feet [...] breath, wheezing, unable to speak) Denies 8. HUDIKM-FMAF-VTLRE: "Are you getting better, staying the same [...] 97%-62 Protocols used: Coronavirus (COVID-19) Diagnosed or Hngmbzycl-XRWEK-BS documented in this encounterUk Healthcare11-09-2022 Miscellaneous Notes* Telephone Encounter - Corrine Lopez RN - 06/11/2022 2:40 PM EST Patient being triaged in One Click encounter. Corrine Lopez RN * Telephone Encounter - Cris Boucher - 06/11/2022 2:22 PM EST Appointment with [facility] Nurse @ 3:00 today. Patient tested positive for COVID and wants to have prescription called in to [facility] in [place]. Symptoms: Cold Cough Sinus pressure Runny nose Eyes are burning Patient also stated she fell last night at home. Called the squad to come and pick her up. Contact patient at [phone] Cris Boucher documented in this encounterUk Healthcare09-07-2022 Miscellaneous Notes* Telephone Encounter - Adonay Marquez - 04/09/2022 5:15 PM EDT Called pt and informed of results pt indicated understanding. * Telephone Encounter - Sahra Guy MD - 04/09/2022 8:28 AM EDT Hba1c diabetes test well inside normal range Thyroid stimulating hormone is in normal range, indicating normal thyroid function. Sahra Guy MD documented in this encounterUk [facility]08-24-2022 Miscellaneous Notes* Telephone Encounter - Sahra Guy [...] patient. Tete Mora Pss documented in this encounterUk Healthcare08-19-2022 Miscellaneous Notes* Telephone Encounter - Malika Sheikh [...] calling: self Call patient at: at home [phone] (home) [phone] (cell) Was an appointment scheduled: No Closing statement: Results or non-symptom based questions: Thank you for calling [facility], your call will be returned within the next business day. Tete Mora Pss documented in this encounterUk Healthcare05-19-2022 Miscellaneous Notes* Telephone Encounter - Adonay Marquez - 12/19/2021 2:14 PM EDT Received request for PCP signature from [facility]. Placed in provider's inbox for review. Route to [place] fax documented in this encounterUk Healthcare05-13-2022 History of Present illness Narrative* Nakita Bronson - 12/13/2021 4:32 PM EDT POPULATION HEALTH NAVIGATION OUTREACH Action/FYI LVM FOR PATIENT TO CALL BACK AND SCHEDULE CONSULT FOR PT/OT. [phone] Pt identified by name and : NO [...] 13, 2021 4:32 PM documented in this encounterUk Healthcare05-05-2022 Miscellaneous Notes* Telephone Encounter - Adonay Marquez - 12/05/2021 8:20 AM EDT [facility] office printed in provider inbox pending signature. * Telephone Encounter - Alicia Sultana - 12/04/2021 1:07 PM EDT [facility] calling to request office note from 10/29/21. Also requesting a physician signature on thenote. Please fax to [phone] documented in this encounterUk Healthcare05-04-2022 Miscellaneous Notes* Telephone Encounter - Malika Sheikh LPN - 12/04/2021 10:52 AM EDT Received 2021 from [facility]. Placed in provider's inbox for review. [place] to [place] for faxing [phone] documented in this encounterUk Healthcare05-02-2022 Miscellaneous Notes* Telephone Encounter - Adonay Marquez - 12/02/2021 11:27 AM EDT Update and orders signed and faxed to [facility]. documented in this [facility]04-28-2022 Miscellaneous Notes* Telephone Encounter - Malika Sheikh LPN - 11/28/2021 2:33 PM EDT Received 11/28/2021 from [facility]. Placed in provider's inbox for review. Route to [place] for scanning Discharge summary documented in this encounterUk Healthcare04-21-2022 Miscellaneous Notes* Telephone Encounter - Malika Sheikh LPN - 11/21/2021 2:00 PM EDT Received 11/21/2021 from [facility]. Placed in provider's inbox for review. Route to [place] for faxing [phone] Home health certification and plan of care to be signed and faxed. documented in this encounterUk Healthcare04-20-2022 Miscellaneous Notes* Telephone Encounter - Malika Sheikh LPN - 11/20/2021 12:01 PM EDT Spoke to Rachel. Additional signed note from 08/08/2021 faxed * Telephone Encounter - Kimberly Kurtz Pss - 11/20/2021 11:25 AM EDT Rachel, from [facility] stated she received the fax, but it was not signed by Dr. Guy. Said it was signed by a scribe. Please re-fax to [phone]. Rachel can be reached at [phone]. * Telephone Encounter - Malika Sheikh LPN - 11/20/2021 10:07 AM EDT Fax sent * Telephone Encounter - Rachel Valdez Pss - 11/20/2021 9:00 AM EDT Rachel from [facility] is requesting the chart note from the 10-29-21 visit to beused as a F2F visit for her [facility]. It can be faxed to [phone] Att: Rachel documented in this encounterUk Healthcare04-05-2022 Miscellaneous Notes* Telephone Encounter - Leonid Roach APRN.CNP - 11/05/2021 4:20 PM EDT Noted. Leonid Roach APRN.CNP * Telephone Encounter - Tete Boucher - 11/05/2021 4:11 PM EDT Shabana, Physical Therapist from [facility] called to update the doctor. Today she completed the PT evaluation and start of care: 2 times per week 2 -week period 1 time per week for 2 more weeks She will work with the patient on: Transfers, home safety, strengthening; any pain issues; no further action is requested, she is providing an update. documented in this encounterUk [facility]03-31-2022 Miscellaneous Notes* Telephone Encounter - Leonid Roach [...] stable. Leonid Roach APRN.CNP documented in this encounterUk Healthcare03-29-2022 History of Present illness Narrative* Sahra Guy [...] ALLERGIES: Keflex [Cephalexin], Novacaine [Other], Vioxx [Rofecoxib], Vanderbilt-3 Fish Oil [Vanderbilt-3 Fatty Acids-Vitamin E], Advil [Ibuprofen], and Asa [...] Obesity, Class III, BMI 40-49.9 (morbid obesity) ([facility]) Comment: patient needs a wheelchair to get [...] 29, 2021 10:15 AM documented in this encounterUk Healthcare01-23-2019 History of Past illness Narrative* Problem Noted [...] of this encounter (statuses as of 10/29/2021) [facility] of Past illness Narrative* Problem Noted [...] of this encounter (statuses as of 10/31/2021) [facility] of Past illness Narrative* Problem Noted [...] of this encounter (statuses as of 11/06/2021) [facility] of Past illness Narrative* Problem Noted [...] of this encounter (statuses as of 11/20/2021) [facility] of Past illness Narrative* Problem Noted [...] of this encounter (statuses as of 11/21/2021) [facility] of Past illness Narrative* Problem Noted [...] of this encounter (statuses as of 11/28/2021) [facility] of [facility] Narrative* Problem Noted [...] of this encounter (statuses as of 12/02/2021) [facility] of [facility] Narrative* Problem Noted [...] of this encounter (statuses as of 12/04/2021) [facility] of [facility] Narrative* Problem Noted [...] of this encounter (statuses as of 12/05/2021) [facility] of [facility] illness Narrative* Problem Noted [...] of this encounter (statuses as of 12/13/2021) [facility] Narrative* Problem Noted [...] of this encounter (statuses as of 12/19/2021) [facility] Narrative* Problem Noted [...] of this encounter (statuses as of 03/21/2022) [facility] Narrative* Problem Noted [...] of this encounter (statuses as of 03/26/2022) [facility] Narrative* Problem Noted [...] of this encounter (statuses as of 04/04/2022) [facility] Narrative* Problem Noted [...] of this encounter (statuses as of 04/09/2022) [facility] Narrative* Problem Noted [...] of this encounter (statuses as of 06/11/2022) [facility] Narrative* Problem Noted [...] of this encounter (statuses as of 06/15/2022) [facility] Narrative* Problem Noted [...] of this encounter (statuses as of 07/14/2022) [facility] Narrative* Problem Noted [...] of this encounter (statuses as of 08/07/2022) [facility] Narrative* Problem Noted [...] of this encounter (statuses as of 09/17/2022) [facility] Narrative* Problem Noted [...] of this encounter (statuses as of 09/26/2022) [facility] Narrative* Problem Noted [...] of this encounter (statuses as of 09/30/2022) [facility] Narrative* Problem Noted [...] of this encounter (statuses as of 12/09/2022) [facility] Narrative* Problem Noted [...] of this encounter (statuses as of 03/10/2023) [facility] Narrative* Problem Noted [...] of this encounter (statuses as of 03/13/2023) [facility] Narrative* Problem Noted [...] of this encounter (statuses as of 03/24/2023) [place] [id number] History of Past illness Narrative* Problem Noted [...] of this encounter (statuses as of 04/04/2023) [place] [address]-23-2019 History of Past illness Narrative* Problem Noted [...] of this encounter (statuses as of 04/09/2023) [facility] Narrative* Problem Noted [...] of this encounter (statuses as of 04/09/2023) [facility] Narrative* Problem Noted [...] of this encounter (statuses as of 04/10/2023) [facility] Narrative* Problem Noted [...] of this encounter (statuses as of 04/24/2023) [facility] Narrative* Problem Noted [...] of this encounter (statuses as of 05/09/2023) [facility] Narrative* Problem Noted [...] of this encounter (statuses as of 05/27/2023) [facility] Narrative* Problem Noted [...] of this encounter (statuses as of 07/14/2023) [facility]* Diagnosis Poliomyelitis osteopathy [...] for lipid disorders documented in this [facility]* Diagnosis COVID-19- Primary [facility]* Diagnosis Neck pain, chronic Cervicalgia [facility]* Diagnosis Post-polio syndrome- Primary [...] whether esophagitis present [facility]* Diagnosis Obesity, Class III, 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) Morbid obesity [facility]* 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 [facility]* 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 [facility]* Diagnosis Dysphagia, unspecified type- Primary 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 [facility]* 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, multiple sites documented in this encounter [facility]* Diagnosis Late effects of acute poliomyelitis- Primary Obstructive sleep apnea on CPAP Obstructive sleep apnea (adult) (pediatric) Gastroesophageal reflux disease, unspecified whether esophagitis present Neck pain, chronic Cervicalgia OAB (overactive bladder) Hypertonicity of bladder Rosacea Class 3 severe obesity with body mass index (BMI) of 40.0 to 44.9 in adult, unspecified obesity type, unspecified whether serious comorbidity present ([facility]) Glaucoma, unspecified glaucoma type, unspecified laterality Restless legs syndrome (RLS) documented in this encounter [facility] note* Diagnosis Osteopenia, unspecified location- Primary Obesity, Class III, BMI 40-49.9 (morbid obesity) ([facility]) Morbid obesity Vitamin D deficiency Unspecified vitamin D deficiency Hyperglycemia Other abnormal glucose Hyperlipidemia, mixed Mixed hyperlipidemia documented in this encounter [facility]* Diagnosis Hyperglycemia, unspecified- Primary Mixed hyperlipidemia Vitamin D deficiency, unspecified Other specified disorders of bone density and structure, unspecified site [facility]* Diagnosis Unable to ambulate [...] left-sided sciatica- Primary documented in this [facility]* Diagnosis Unable to [...] Obesity, Class III, BMI 40-49.9 (morbid obesity) ([facility]) Morbid obesity Poliomyelitis osteopathy of multiple sites ([facility]) (HCC) 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, multiple sites [...] pain, unspecified laterality documented in this encounter [facility]* Diagnosis Unable to [...] region and thigh documented in this encounter [facility]* Diagnosis Unable to [...] history of fall [facility]* Diagnosis Unable to ambulate [...] left-sided sciatica- Primary [facility]* Diagnosis Unable to ambulate [...] unspecified chronicity- Primary [facility]* Diagnosis Hyperglycemia, unspecified- Primary Mixed hyperlipidemia [facility]* Diagnosis Unable to [...] unspecified genitourinary condition documented in this [facility] noteNo assessment information availableBlAnaheim General Hospital Work Phone: Hospital Discharge instructionsAdditional Instructions Take MiraLAX consistently once or twice a day. Continue your senna.[facility] Work Phone: Hospital Discharge instructionsAmbulatory Orders* Physical Therapy Referral Location: None [facility] Work Phone: Reason for referral (narrative)* Diagnostic Procedure Only (Routine) - Pending Review Specialty Diagnoses / Procedures Referred By Lia hennessy Referred To Contact XR IMAGING Diagnoses Acute pain of right knee Procedures XR KNEE LIMITED 2V AP/LAT RIGHT RADIOLOGIC EXAMINATION KNEE 1/2 VIEWS Sahra Guy MD [address] [place] [address] [place] [address] Xr Imaging Referral ID Status Reason Start Date Expiration Date Visits Requested Visits Authorized [id number] Pending Review Auto-Generat ed Referral 10/29/2021 11/28/2022 1 1 * Physical Therapy (Routine) - Authorized Specialty Diagnoses / Procedures Referred By Lia hennessy Referred To Contact [facility] Diagnoses Poliomyelitis osteopathy of multiple sites (HCC) Acute pain of right knee Post-polio syndrome Procedures CONSULT TO PHYSICAL THERAPY PHYSICAL THERAPY EVALUATION HIGH COMPLEX 45 MINS Sahra Guy MD [address] [place] [address] [facility] [place] [address] Referral ID Status Reason Start Date Expiration Date Visits Requested Visits Authorized [id number] Authorized PCP Requested Referral Auto-Generate d Referral 10/29/2021 10/29/2022 99 99 [facility] for referral (narrative)No reason for referral information availableHaddam [facility] [employer] [facility] Work Phone: Summary Purpose Family History No Family History Records FoundNo Family History Records FoundNo Family History Records FoundNo Family History Records FoundNo Family History Records FoundNo Family History Records FoundNo Family History Records Found Advance Directives No Advanced Directives Records FoundDocuments on File Type Date Recorded Patient Supervisor Testing Expl anation Advance Directive(s) Advance Directive(s) 09/07/2018 8:30 AM Advance Directive(s) 08/02/2018 10:02 AM Advance Directive(s) 07/29/2018 11:50 AM Documents on File Type Date Recorded Patient Supervisor Testing Expl anation Advance Directive(s) Advance Directive(s) 09/07/2018 8:30 AM Advance Directive(s) 08/02/2018 10:02 AM Advance Directive(s) 07/29/2018 11:50 AM Documents on File Type Date Recorded Patient Supervisor Testing Expl anation Advance Directive(s) 08/02/2018 10:02 AM Documents on File Type Date Recorded Patient Supervisor Testing Expl anation Advance Directive(s) 08/02/2018 10:02 AM Date Activated Date Inactivated Comments 12/12/2024 6:18 PM 12/19/2024 8:25 PM Question Answer Comments Full Code Order Discussed With: Patient Advance Directive Response Recorded Date/ Time Do you have a Healthcare Power of Blood Coordinator? 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) Procedures CONSULT TO NEUROMUSCULAR MEDIC OFFICE/OUTPATIENT [facility] 60-74 MINUTES Sahra Guy MD [address] [place] [address] Referral ID Status Reason Start Date Expiration Date Visits Requested Visits Authorized [id number] Authorized PCP Requested Referral 03/10/2023 03/09/2024 1 1 Specialty Diagnoses / Procedures Referred By Contac t Referred To Contact [facility] 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 [address] [address] Referral ID Status Reason Start Date Expiration Date Visits Requested Visits Authorized [id number] Authorized PCP Requested Referral Auto-Generate d Referral 03/10/2023 03/09/2024 99 99 Specialty Diagnoses / Procedures Referred By Contac t Referred To Contact [facility] Diagnoses Post-polio syndrome Procedures CONSULT TO SPEECH THERAPY OFFICE/OUTPATIENT [facility] 60-74 MINUTES Ken Trent MD [address] [place], [place] [id number] [facility] [place] [id number] Referral ID Status Reason Start Date Expiration Date Visits Requested Visits Authorized [id number] Authorized Auto-Generat ed Referral 04/03/2023 04/02/2024 99 99 Specialty Diagnoses / Procedures Referred By Contac t Referred To Contact [facility] Diagnoses Post-polio syndrome Procedures CONSULT TO PHYSICAL THERAPY PHYSICAL THERAPY EVALUATION HIGH COMPLEX 45 MINS Ken Trent MD [address] [place] [address] [facility] [place] [id number] Referral ID Status Reason Start Date Expiration Date Visits Requested Visits Authorized [id number] Authorized PCP Requested Referral Auto-Generate d Referral [...] section and content) DATE CREATED AUTHOR 08/06/2018 [facility] DATE CREATED AUTHOR AUTHOR'S ORGANIZ ATION 09/21/2018 [facility] DATE CREATED AUTHOR AUTHOR'S ORGANIZ ATION 09/14/2024 [facility] DATE CREATED AUTHOR AUTHOR'S ORGANIZ ATION 12/28/2024 [facility] DATE CREATED AUTHOR AUTHOR'S ORGANIZ ATION 12/28/2024 [facility] DATE CREATED AUTHOR AUTHOR'S ORGANIZ ATION 03/24/2025 [facility] DATE CREATED AUTHOR AUTHOR'S ORGANGORDON ATION 06/11/2025 [facility] Source Comments (unrecognize d section and content) In the event this informatio n is protected by the Federal Confidentiality of Alcohol and Drug Abuse Patient Records regulations: The Federal rules restrict any use of the information to criminally investigate or prosecute any alcohol or drug abuse patient.[facility] HealthcareIn the event this information is protected by the Federal Confidentiality of Alcohol and Drug Abuse Patient Records regulations: The Federal rules restrict any use of the information to criminally investigate or prosecute any alcohol or drug abuse patient.[facility] HealthcareIn the event this information is protected by the Federal Confidentiality of Alcohol and Drug Abuse Patient Records regulations: The Federal rules restrict any use of the information to criminally investigate or prosecute any alcohol or drug abuse patient.[facility] HealthcareIn the event this information is protected by the Federal Confidentiality of Alcohol and Drug Abuse Patient Records regulations: The Federal rules restrict any use of the information to criminally investigate or prosecute any alcohol or drug abuse patient.[facility] HealthcareIn the event this information is protected by the Federal Confidentiality of Alcohol and Drug Abuse Patient Records regulations: The Federal rules restrict any use of the information to criminally investigate or prosecute any alcohol or drug abuse patient.[facility] HealthcareIn the event this information is protected by the Federal Confidentiality of Alcohol and Drug Abuse Patient Records regulations: The Federal rules restrict any use of the information to criminally investigate or prosecute any alcohol or drug abuse patient.[facility] HealthcareIn the event this information is protected by the Federal Confidentiality of Alcohol and Drug Abuse Patient Records regulations: The Federal rules restrict any use of the information to criminally investigate or prosecute any alcohol or drug abuse patient.[facility] HealthcareIn the event this information is protected by the Federal Confidentiality of Alcohol and Drug Abuse Patient Records regulations: The Federal rules restrict any use of the information to criminally investigate or prosecute any alcohol or drug abuse patient.[facility] HealthcareIn the event this information is protected by the Federal Confidentiality of Alcohol and Drug Abuse Patient Records regulations: The Federal rules restrict any use of the information to criminally investigate or prosecute any alcohol or drug abuse patient.[facility] HealthcareIn the event this information is protected by the Federal Confidentiality of Alcohol and Drug Abuse Patient Records regulations: The Federal rules restrict any use of the information to criminally investigate or prosecute any alcohol or drug abuse patient.[facility] HealthcareIn the event this information is protected by the Federal Confidentiality of Alcohol and Drug Abuse Patient Records regulations: The Federal rules restrict any use of the information to criminally investigate or prosecute any alcohol or drug abuse patient.[facility] HealthcareIn the event this information is protected by the Federal Confidentiality of Alcohol and Drug Abuse Patient Records regulations: The Federal rules restrict any use of the information to criminally investigate or prosecute any alcohol or drug abuse patient.[facility] HealthcareIn the event this information is protected by the Federal Confidentiality of Alcohol and Drug Abuse Patient Records regulations: The Federal rules restrict any use of the information to criminally investigate or prosecute any alcohol or drug abuse patient.[facility] HealthcareIn the event this information is protected by the Federal Confidentiality of Alcohol and Drug Abuse Patient Records regulations: The Federal rules restrict any use of the information to criminally investigate or prosecute any alcohol or drug abuse patient.[facility] HealthcareIn the event this information is protected by the Federal Confidentiality of Alcohol and Drug Abuse Patient Records regulations: The Federal rules restrict any use of the information to criminally investigate or prosecute any alcohol or drug abuse patient.[facility] HealthcareIn the event this information is protected by the Federal Confidentiality of Alcohol and Drug Abuse Patient Records regulations: The Federal rules restrict any use of the information to criminally investigate or prosecute any alcohol or drug abuse patient.[facility] HealthcareIn the event this information is protected by the Federal Confidentiality of Alcohol and Drug Abuse Patient Records regulations: The Federal rules restrict any use of the information to criminally investigate or prosecute any alcohol or drug abuse patient.[facility] HealthcareIn the event this information is protected by the Federal Confidentiality of Alcohol and Drug Abuse Patient Records regulations: The Federal rules restrict any use of the information to criminally investigate or prosecute any alcohol or drug abuse patient.[facility] HealthcareIn the event this information is protected by the Federal Confidentiality of Alcohol and Drug Abuse Patient Records regulations: The Federal rules restrict any use of the information to criminally investigate or prosecute any alcohol or drug abuse patient.[facility] HealthcareIn the event this information is protected by the Federal Confidentiality of Alcohol and Drug Abuse Patient Records regulations: The Federal rules restrict any use of the information to criminally investigate or prosecute any alcohol or drug abuse patient.[facility] HealthcareIn the event this information is protected by the Federal Confidentiality of Alcohol and Drug Abuse Patient Records regulations: The Federal rules restrict any use of the information to criminally investigate or prosecute any alcohol or drug abuse patient.[facility] HealthcareIn the event this information is protected by the Federal Confidentiality of Alcohol and Drug Abuse Patient Records regulations: The Federal rules restrict any use of the information to criminally investigate or prosecute any alcohol or drug abuse patient.[facility] HealthcareIn the event this information is protected by the Federal Confidentiality of Alcohol and Drug Abuse Patient Records regulations: The Federal rules restrict any use of the information to criminally investigate or prosecute any alcohol or drug abuse patient.[facility] HealthcareIn the event this information is protected by the Federal Confidentiality of Alcohol and Drug Abuse Patient Records regulations: The Federal rules restrict any use of the information to criminally investigate or prosecute any alcohol or drug abuse patient.[facility] HealthcareIn the event this information is protected by the Federal Confidentiality of Alcohol and Drug Abuse Patient Records regulations: The Federal rules restrict any use of the information to criminally investigate or prosecute any alcohol or drug abuse patient.[facility] HealthcareIn the event this information is protected by the Federal Confidentiality of Alcohol and Drug Abuse Patient Records regulations: The Federal rules restrict any use of the information to criminally investigate or prosecute any alcohol or drug abuse patient.[facility] HealthcareIn the event this information is protected by the Federal Confidentiality of Alcohol and Drug Abuse Patient Records regulations: The Federal rules restrict any use of the information to criminally investigate or prosecute any alcohol or drug abuse patient.[facility] HealthcareIn the event this information is protected by the Federal Confidentiality of Alcohol and Drug Abuse Patient Records regulations: The Federal rules restrict any use of the information to criminally investigate or prosecute any alcohol or drug abuse patient.[facility] HealthcareIn the event this information is protected by the Federal Confidentiality of Alcohol and Drug Abuse Patient Records regulations: The Federal rules restrict any use of the information to criminally investigate or prosecute any alcohol or drug abuse patient.[facility] HealthcareIn the event this information is protected by the Federal Confidentiality of Alcohol and Drug Abuse Patient Records regulations: The Federal rules restrict any use of the information to criminally investigate or prosecute any alcohol or drug abuse patient.[facility] HealthcareIn the event this information is protected by the Federal Confidentiality of Alcohol and Drug Abuse Patient Records regulations: The Federal rules restrict any use of the information to criminally investigate or prosecute any alcohol or drug abuse patient.[facility] HealthcareIn the event this information is protected by the Federal Confidentiality of Alcohol and Drug Abuse Patient Records regulations: The Federal rules restrict any use of the information to criminally investigate or prosecute any alcohol or drug abuse patient.[facility] HealthcareIn the event this information is protected by the Federal Confidentiality of Alcohol and Drug Abuse Patient Records regulations: The Federal rules restrict any use of the information to criminally investigate or prosecute any alcohol or drug abuse patient.[facility] HealthcareIn the event this information is protected by the Federal Confidentiality of Alcohol and Drug Abuse Patient Records regulations: The Federal rules restrict any use of the information to criminally investigate or prosecute any alcohol or drug abuse patient.[facility] HealthcareIn the event this information is protected by the Federal Confidentiality of Alcohol and Drug Abuse Patient Records regulations: The Federal rules restrict any use of the information to criminally investigate or prosecute any alcohol or drug abuse patient.[facility] HealthcareIn the event this information is protected by the Federal Confidentiality of Alcohol and Drug Abuse Patient Records regulations: The Federal rules restrict any use of the information to criminally investigate or prosecute any alcohol or drug abuse patient.[facility] HealthcareIn the event this information is protected by the Federal Confidentiality of Alcohol and Drug Abuse Patient Records regulations: The Federal rules restrict any use of the information to criminally investigate or prosecute any alcohol or drug abuse patient.[facility] HealthcareIn the event this information is protected by the Federal Confidentiality of Alcohol and Drug Abuse Patient Records regulations: The Federal rules restrict any use of the information to criminally investigate or prosecute any alcohol or drug abuse patient.[facility] HealthcareIn the event this information is protected by the Federal Confidentiality of Alcohol and Drug Abuse Patient Records regulations: The Federal rules restrict any use of the information to criminally investigate or prosecute any alcohol or drug abuse patient.[facility] HealthcareIn the event this information is protected by the Federal Confidentiality of Alcohol and Drug Abuse Patient Records regulations: The Federal rules restrict any use of the information to criminally investigate or prosecute any alcohol or drug abuse patient.[facility] HealthcareIn the event this information is protected by the Federal Confidentiality of Alcohol and Drug Abuse Patient Records regulations: The Federal rules restrict any use of the information to criminally investigate or prosecute any alcohol or drug abuse patient.[facility] HealthcareIn the event this information is protected by the Federal Confidentiality of Alcohol and Drug Abuse Patient Records regulations: The Federal rules restrict any use of the information to criminally investigate or prosecute any alcohol or drug abuse patient.[facility] HealthcareIn the event this information is protected by the Federal Confidentiality of Alcohol and Drug Abuse Patient Records regulations: The Federal rules restrict any use of the information to criminally investigate or prosecute any alcohol or drug abuse patient.[facility] HealthcareIn the event this information is protected by the Federal Confidentiality of Alcohol and Drug Abuse Patient Records regulations: The Federal rules restrict any use of the information to criminally investigate or prosecute any alcohol or drug abuse patient.[facility] HealthcareIn the event this information is protected by the Federal Confidentiality of Alcohol and Drug Abuse Patient Records regulations: The Federal rules restrict any use of the information to criminally investigate or prosecute any alcohol or drug abuse patient.[facility] HealthcareIn the event this information is protected by the Federal Confidentiality of Alcohol and Drug Abuse Patient Records regulations: The Federal rules restrict any use of the information to criminally investigate or prosecute any alcohol or drug abuse patient.[facility] HealthcareIn the event this information is protected by the Federal Confidentiality of Alcohol and Drug Abuse Patient Records regulations: The Federal rules restrict any use of the information to criminally investigate or prosecute any alcohol or drug abuse patient.[facility] HealthcareIn the event this information is protected by the Federal Confidentiality of Alcohol and Drug Abuse Patient Records regulations: The Federal rules restrict any use of the information to criminally investigate or prosecute any alcohol or drug abuse patient.[facility] HealthcareIn the event this information is protected by the Federal Confidentiality of Alcohol and Drug Abuse Patient Records regulations: The Federal rules restrict any use of the information to criminally investigate or prosecute any alcohol or drug abuse patient.[facility] HealthcareIn the event this information is protected by the Federal Confidentiality of Alcohol and Drug Abuse Patient Records regulations: The Federal rules restrict any use of the information to criminally investigate or prosecute any alcohol or drug abuse patient.[facility] HealthcareIn the event this information is protected by the Federal Confidentiality of Alcohol and Drug Abuse Patient Records regulations: The Federal rules restrict any use of the information to criminally investigate or prosecute any alcohol or drug abuse patient.[facility] HealthcareIn the event this information is protected by the Federal Confidentiality of Alcohol and Drug Abuse Patient Records regulations: The Federal rules restrict any use of the information to criminally investigate or prosecute any alcohol or drug abuse patient.[facility] HealthcareIn the event this information is protected by the Federal Confidentiality of Alcohol and Drug Abuse Patient Records regulations: The Federal rules restrict any use of the information to criminally investigate or prosecute any alcohol or drug abuse patient.[facility] HealthcareIn the event this information is protected by the Federal Confidentiality of Alcohol and Drug Abuse Patient Records regulations: The Federal rules restrict any use of the information to criminally investigate or prosecute any alcohol or drug abuse patient.[facility] HealthcareIn the event this information is protected by the Federal Confidentiality of Alcohol and Drug Abuse Patient Records regulations: The Federal rules restrict any use of the information to criminally investigate or prosecute any alcohol or drug abuse patient.[facility] HealthcareIn the event this information is protected by the Federal Confidentiality of Alcohol and Drug Abuse Patient Records regulations: The Federal rules restrict any use of the information to criminally investigate or prosecute any alcohol or drug abuse patient.[facility] HealthcareIn the event this information is protected by the Federal Confidentiality of Alcohol and Drug Abuse Patient Records regulations: The Federal rules restrict any use of the information to criminally investigate or prosecute any alcohol or drug abuse patient.[facility] HealthcareIn the event this information is protected by the Federal Confidentiality of Alcohol and Drug Abuse Patient Records regulations: The Federal rules restrict any use of the information to criminally investigate or prosecute any alcohol or drug abuse patient.[facility] HealthcareIn the event this information is protected by the Federal Confidentiality of Alcohol and Drug Abuse Patient Records regulations: The Federal rules restrict any use of the information to criminally investigate or prosecute any alcohol or drug abuse patient.[facility] HealthcareIn the event this information is protected by the Federal Confidentiality of Alcohol and Drug Abuse Patient Records regulations: The Federal rules restrict any use of the information to criminally investigate or prosecute any alcohol or drug abuse patient.[facility] HealthcareIn the event this information is protected by the Federal Confidentiality of Alcohol and Drug Abuse Patient Records regulations: The Federal rules restrict any use of the information to criminally investigate or prosecute any alcohol or drug abuse patient.[facility] HealthcareIn the event this information is protected by the Federal Confidentiality of Alcohol and Drug Abuse Patient Records regulations: The Federal rules restrict any use of the information to criminally investigate or prosecute any alcohol or drug abuse patient.[facility] HealthcareIn the event this information is protected by the Federal Confidentiality of Alcohol and Drug Abuse Patient Records regulations: The Federal rules restrict any use of the information to criminally investigate or prosecute any alcohol or drug abuse patient.[facility] HealthcareIn the event this information is protected by the Federal Confidentiality of Alcohol and Drug Abuse Patient Records regulations: The Federal rules restrict any use of the information to criminally investigate or prosecute any alcohol or drug abuse patient.[facility] HealthcareIn the event this information is protected by the Federal Confidentiality of Alcohol and Drug Abuse Patient Records regulations: The Federal rules restrict any use of the information to criminally investigate or prosecute any alcohol or drug abuse patient.[facility] HealthcareIn the event this information is protected by the Federal Confidentiality of Alcohol and Drug Abuse Patient Records regulations: The Federal rules restrict any use of the information to criminally investigate or prosecute any alcohol or drug abuse patient.[facility] HealthcareIn the event this information is protected by the Federal Confidentiality of Alcohol and Drug Abuse Patient Records regulations: The Federal rules restrict any use of the information to criminally investigate or prosecute any alcohol or drug abuse patient.[facility] HealthcareIn the event this information is protected by the Federal Confidentiality of Alcohol and Drug Abuse Patient Records regulations: The Federal rules restrict any use of the information to criminally investigate or prosecute any alcohol or drug abuse patient.[facility] HealthcareIn the event this information is protected by the Federal Confidentiality of Alcohol and Drug Abuse Patient Records regulations: The Federal rules restrict any use of the information to criminally investigate or prosecute any alcohol or drug abuse patient.[facility] HealthcareIn the event this information is protected by the Federal Confidentiality of Alcohol and Drug Abuse Patient Records regulations: The Federal rules restrict any use of the information to criminally investigate or prosecute any alcohol or drug abuse patient.[facility] HealthcareIn the event this information is protected by the Federal Confidentiality of Alcohol and Drug Abuse Patient Records regulations: The Federal rules restrict any use of the information to criminally investigate or prosecute any alcohol or drug abuse patient.[facility] HealthcareIn the event this information is protected by the Federal Confidentiality of Alcohol and Drug Abuse Patient Records regulations: The Federal rules restrict any use of the information to criminally investigate or prosecute any alcohol or drug abuse patient.[facility] HealthcareIn the event this information is protected by the Federal Confidentiality of Alcohol and Drug Abuse Patient Records regulations: The Federal rules restrict any use of the information to criminally investigate or prosecute any alcohol or drug abuse patient.[facility] HealthcareIn the event this information is protected by the Federal Confidentiality of Alcohol and Drug Abuse Patient Records regulations: The Federal rules restrict any use of the information to criminally investigate or prosecute any alcohol or drug abuse patient.[facility] HealthcareIn the event this information is protected by the Federal Confidentiality of Alcohol and Drug Abuse Patient Records regulations: The Federal rules restrict any use of the information to criminally investigate or prosecute any alcohol or drug abuse patient.[facility] HealthcareIn the event this information is protected by the Federal Confidentiality of Alcohol and Drug Abuse Patient Records regulations: The Federal rules restrict any use of the information to criminally investigate or prosecute any alcohol or drug abuse patient.[facility] HealthcareIn the event this information is protected by the Federal Confidentiality of Alcohol and Drug Abuse Patient Records regulations: The Federal rules restrict any use of the information to criminally investigate or prosecute any alcohol or drug abuse patient.[facility] HealthcareIn the event this information is protected by the Federal Confidentiality of Alcohol and Drug Abuse Patient Records regulations: The Federal rules restrict any use of the information to criminally investigate or prosecute any alcohol or drug abuse patient.[facility] HealthcareIn the event this information is protected by the Federal Confidentiality of Alcohol and Drug Abuse Patient Records regulations: The Federal rules restrict any use of the information to criminally investigate or prosecute any alcohol or drug abuse patient.[facility] HealthcareIn the event this information is protected by the Federal Confidentiality of Alcohol and Drug Abuse Patient Records regulations: The Federal rules restrict any use of the information to criminally investigate or prosecute any alcohol or drug abuse patient.[facility] HealthcareIn the event this information is protected by the Federal Confidentiality of Alcohol and Drug Abuse Patient Records regulations: The Federal rules restrict any use of the information to criminally investigate or prosecute any alcohol or drug abuse patient.[facility] Reason for Visit (unrecogniz ed section and [...] 03/11/2023 Reason Comments Orders OT referral request [facility] Reason Comments post polio Specialty Diagnoses / Procedures Referred By Lia hennessy Referred To Contact 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) Procedures CONSULT TO NEUROMUSCULAR MEDIC OFFICE/OUTPATIENT [facility] 60-74 MINUTES Sahra Guy MD [address] [place] [address] [place] [address] Referral ID Status Reason Start Date Expiration Date V isits Requested Visits Authorized [id number] Closed PCP Requested Referral 03/10/2023 03/09/2024 1 1 Reason Comments Car [employer] - Other Reason Comments Speech Evaluation Speech Therapy Speech Discharge Specialty Diagnoses / Procedures Referred By Lia hennessy Referred To Contact [facility] Diagnoses Post-polio syndrome Procedures CONSULT TO SPEECH THERAPY OFFICE/OUTPATIENT [facility] 60-[place] [address] [place] [id number] [facility] [address] [place] [address] Referral ID Status Reason Start Date Expiration Date Visits Requested Visits Authorized [id number] Authorized Auto-Generat ed Referral 04/03/2023 04/02/2024 99 99 Reason Comments PT Eval PT Discharge Specialty Diagnoses / Procedures Referred By Contac t Referred To Contact [facility] 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 [address] [address] Referral ID Status Reason Start Date Expiration Date Visits Requested Visits Authorized [id number] Authorized PCP Requested Referral Auto-Generate d Referral 03/10/2023 03/09/2024 99 99 Reason Comments Received Outside Medical Records [facility] I Move in Assessment 11/25/2023 Patient Update Reason Comments Forms Reason Onset Date Comments Refill Request 01/12/2024 Reason Onset Date Comments Refill Request 01/25/2024 Reason Onset Date Comments Refill Request 02/23/2024 Reason Comments Orders Labs fax to [facility] Reason Comments RSV vaccine Reason Comments Question Reason Comments Patient Question Reason Onset Date Comments Refill Request 06/20/2024 Reason Comments Orders [facility] Reason Onset Date Comments Refill Request 07/05/2024 Reason Comments Muscle Aches Reason Comments Low Back Pain Reason Comments Orders PT and OT Reason Comments Patient Update At office visit on please fill all Rx's that apply per patient [facility] mail order Reason Comments Medicare Wellness [...] Reason Comments PT Eval Reason Comments Orders [facility] Reason Comments Received Outside Medical Records [facility] [place] OT Evaluation performed no further treatment. 10/20/2024 [...] Care Teams (unrecognized sec tion and content) Surveyor Relationship Specialty Start Date End Date Sahra Guy MD [address] [place], [place] [phone] PCP - General Family Practice 02/20/16 Surveyor Relationship Specialty Start Date End Date Sahra Guy MD [address] [place] [address] [address] [place], [place] [phone] PCP - General Family Practice 02/20/16 Surveyor Relationship Specialty Start Date End Date Sahra Guy MD [address] [facility] [address] [place], [place] [id number] PCP - General Family Practice 02/20/16 Surveyor Relationship Specialty Start Date End Date Sahra Guy MD [address] [facility] [address] [place], [place] [id number] PCP - General Family Practice 02/20/16 Surveyor Relationship Specialty Start Date End Date Sahra Guy MD [address] [facility] [address] [place], [place] [id number] PCP - General Family Practice 02/20/16 Surveyor Relationship Specialty Start Date End Date Sahra Guy MD [address] [facility] [address] [place], [place] [id number] PCP - General Family Practice 02/20/16 Surveyor Relationship Specialty Start Date End Date Sahra Guy MD [address] [facility] [place] [address] PCP - General Family Practice 02/20/16 Surveyor Relationship Specialty Start Date End Date Sahra Guy MD [address] [facility] [place] [address] PCP - General Family Medicine 02/20/16 Surveyor Relationship Specialty Start Date End Date Sahra Guy MD [address] [facility] [place] [address] PCP - General Family Medicine 02/20/16 Surveyor Relationship Specialty Start Date End Date Sahra Guy MD [address] [facility] [place] [address] PCP - General Family Medicine 02/20/16 Surveyor Relationship Specialty Start Date End Date Sahra Guy MD [address] [facility] [place] [address] PCP - General Family Medicine 02/20/16 Surveyor Relationship Specialty Start Date End Date Sahra Guy MD [address] [facility] [place] [address] PCP - General Family Medicine 02/20/16 Surveyor Relationship Specialty Start Date End Date Sahra Guy MD [address] [facility] [place] [address] PCP - General Family Medicine 02/20/16 Surveyor Relationship Specialty Start Date End Date Sahra Guy MD [address] [facility] [place] [address] PCP - General Family Medicine 02/20/16 Surveyor Relationship Specialty Start Date End Date Sahra Guy MD [address] [facility] [place] [address] PCP - General Family Medicine 02/20/16 Surveyor Relationship Specialty Start Date End Date Sahra Guy MD [address] [facility] [place] [address] PCP - General Family Medicine 02/20/16 Surveyor Relationship Specialty Start Date End Date Sahra Guy MD [address] [facility] [place] [address] PCP - General Family Medicine 02/20/16 Surveyor Relationship Specialty Start Date End Date Sahra Guy MD [address] [facility] [place] [address] PCP - General Family Medicine 02/20/16 Surveyor Relationship Specialty Start Date End Date Sahra Guy MD [address] [facility] [place] [address] PCP - General Family Medicine 02/20/16 Surveyor Relationship Specialty Start Date End Date Sahra Guy MD [address] [facility] [place] [address] PCP - General Family Medicine 02/20/16 Surveyor Relationship Specialty Start Date End Date Sahra Guy MD [address] [facility] [place] [address] PCP - General Family Medicine 02/20/16 Surveyor Relationship Specialty Start Date End Date Sahra Guy MD [address] [facility] [place] [address] PCP - General Family Medicine 02/20/16 Surveyor Relationship Specialty Start Date End Date Sahra Guy MD [address] [facility] [place] [address] PCP - General Family Medicine 02/20/16 Surveyor Relationship Specialty Start Date End Date Sahra Guy MD [address] [facility] [place] [address] PCP - General Family Medicine 02/20/16 Surveyor Relationship Specialty Start Date End Date Sahra Guy MD [address] [facility] [place] [address] PCP - General Family Medicine 02/20/16 Surveyor Relationship Specialty Start Date End Date Sahra Guy MD [address] [facility] [place] [address] PCP - General Family Medicine 02/20/16 Surveyor Relationship Specialty Start Date End Date Sahra Guy MD [address] [facility] [place] [address] PCP - General Family Medicine 02/20/16 Surveyor Relationship Specialty Start Date End Date Sahra Guy MD [address] [facility] [place] [address] PCP - General Family Medicine 02/20/16 Surveyor Relationship Specialty Start Date End Date Sahra Guy MD [address] [facility] [address] [place], [place] [address] PCP - General Family Medicine 02/20/16 Surveyor Relationship Specialty Start Date End Date Sahra Guy MD [address] [facility] [address] [place] [address] PCP - General Family Medicine 02/20/16 Surveyor Relationship Specialty Start Date End Date Sahra Guy [address] [facility] [address] [place], [place] [address] PCP - General 03/14/17 Surveyor Relationship Specialty Start Date End Date Sahra Guy MD [address] [facility] [address] [place], [place] [address] PCP - General Family Medicine 02/20/16 Surveyor Relationship Specialty Start Date End Date Sahra Guy MD [address] [facility] [address] [place], [place] [address] PCP - General Family Medicine 02/20/16 Leonid Leal APRN.SUPERVISOR [employer]CHARD [address] [facility] [address] [place], [place] [address] Lending Manager Internal Medicine 07/10/24 Surveyor Relationship Specialty Start Date End Date Sahra Guy MD [address] [facility] [address] [place], [place] [address] PCP - General Family Medicine 02/20/16 Leonid Leal, POOJA.SUPERVISOR [employer]CHARD [address] [facility] [address] [place], [place] [address] Lending Manager Internal Medicine 07/10/24 Surveyor Relationship Specialty Start Date End Date Sahra Guy MD [address] [facility] [address] [place], [place] [address] PCP - General Family Medicine 02/20/16 Leonid Leal APRN.SUPERVISOR [employer]ARD [address] [facility] [address] [place], [place] [address] Lending Manager Internal Medicine 07/10/24 Surveyor Relationship Specialty Start Date End Date Sahra Guy MD [address] [facility] [place] [address] PCP - General Family Medicine 02/20/16 Leonid Leal, STAINING MACHINE OPERATOR.SUPERVISOR ORCHARD [address] [facility] [place] [address] Lending Manager Internal Medicine 07/10/24 Surveyor Relationship Specialty Start Date End Date Sahra Guy MD [address] [facility] [place] [address] PCP - General Family Medicine 02/20/16 Leonid Leal, STAINING MACHINE OPERATOR.SUPERVISOR ORCHARD [address] [facility] [place] [address] Lending Manager Internal Medicine 07/10/24 Surveyor Relationship Specialty Start Date End Date Sahra Guy MD [address] [facility] [place] [address] PCP - General Family Medicine 02/20/16 Leonid Leal, STAINING MACHINE OPERATOR.SUPERVISOR ORCHARD [address] [facility] [place] [address] Lending Manager Internal Medicine 07/10/24 Surveyor Relationship Specialty Start Date End Date Sahra Guy MD [address] [facility] [place] [address] PCP - General Family Medicine 02/20/16 Leonid Leal, STAINING MACHINE OPERATOR.SUPERVISOR ORCHARD [address] [facility] [place] [address] Lending Manager Internal Medicine 07/10/24 Surveyor Relationship Specialty Start Date End Date Sahra Guy MD [address] [facility] [place] [address] PCP - General Family Medicine 02/20/16 Leonid Leal, STAINING MACHINE OPERATOR.SUPERVISOR ORCHARD [address] [facility] [place] [address] Lending Manager Internal Medicine 07/10/24 Surveyor Relationship Specialty Start Date End Date Sahra Guy MD [address] [facility] [place] [address] PCP - General Family Medicine 02/20/16 Leonid Leal, STAINING MACHINE OPERATOR.SUPERVISOR ORCHARD [address] [facility] [place] [address] Lending Manager Internal Medicine 07/10/24 Surveyor Relationship Specialty Start Date End Date Sahra Guy MD [address] [facility] [place] [address] PCP - General Family Medicine 02/20/16 Leonid Leal, STAINING MACHINE OPERATOR.SUPERVISOR ORCHARD [address] [facility] [place] [address] Lending Manager Internal Medicine 07/10/24 Surveyor Relationship Specialty Start Date End Date Sahra Guy MD [address] [facility] [place] [address] PCP - General Family Medicine 02/20/16 Leonid Leal, STAINING MACHINE OPERATOR.SUPERVISOR ORCHARD [address] [facility] [place] [address] Lending Manager Internal Medicine 07/10/24 Surveyor Relationship Specialty Start Date End Date Sahra Guy MD [address] [facility] [place] [address] PCP - General Family Medicine 02/20/16 Leonid Leal STAINING MACHINE OPERATOR.SUPERVISOR ORCHARD [address] [facility] [place] [address] Lending Manager Internal Medicine 07/10/24 Surveyor Relationship Specialty Start Date End Date Sahra Guy MD [address] [facility] [place] [address] PCP - General Family Medicine 02/20/16 Leonid Leal, STAINING MACHINE OPERATOR.SUPERVISOR ORCHARD [address] [facility] [place] [address] Lending Manager Internal Medicine 07/10/24 Surveyor Relationship Specialty Start Date End Date Sahra Guy MD [address] [facility] [place] [address] PCP - General Family Medicine 02/20/16 Leonid Leal, STAINING MACHINE OPERATOR.SUPERVISOR ORCHARD [address] [facility] [address] [place], [place] [address] Lending Manager Internal Medicine 07/10/24 Surveyor Relationship Specialty Start Date End Date Sahra Guy MD [address] [facility] [place] [address] PCP - General Family Medicine 02/20/16 Leonid Leal, STAINING MACHINE OPERATOR.SUPERVISOR ORCHARD [address] [facility] [address] [place], [place] [address] Lending Manager Internal Medicine 07/10/24 Surveyor Relationship Specialty Start Date End Date Sahra Guy MD [address] [facility] [address] [place], [place] [address] PCP - General Family Medicine 02/20/16 Leonid Leal, STAINING MACHINE OPERATOR.SUPERVISOR ORCHARD [address] [facility] [address] [place], [place] [address] Lending Manager Internal Medicine 07/10/24 Surveyor Relationship Specialty Start Date End Date Sahra Guy MD [address] [facility] [address] [place], [place] [phone] PCP - General Family Medicine 02/20/16 Leonid Leal, STAINING MACHINE OPERATOR.SUPERVISOR ORCHARD [address] [facility] [address] [place], [place] [address] Lending Manager Internal Medicine 07/10/24 Surveyor Relationship Specialty Start Date End Date Sahra Guy MD [address] [facility] [address] [place], [place] [address] PCP - General Family Medicine 02/20/16 Leonid Leal, STAINING MACHINE OPERATOR.SUPERVISOR ORCHARD [address] [facility] [address] [place], [place] [address] Lending Manager Internal Medicine 07/10/24 Surveyor Relationship Specialty Start Date End Date Sahra Guy MD [address] [facility] [address] [place], [place] [phone] PCP - General Family Medicine 02/20/16 Leonid Leal, STAINING MACHINE OPERATOR.SUPERVISOR ORCHARD [address] [facility] [address] [place], [place] [address] Lending Manager Internal Medicine 07/10/24 Surveyor Relationship Specialty Start Date End Date Sahra Guy MD [address] [facility] [address] [place] [address] PCP - General Family Medicine 02/20/16 Leonid Leal, STAINING MACHINE OPERATOR.SUPERVISOR ORCHARD [address] [facility] [address] [place], [place] [address] Lending Manager Internal Medicine 07/10/24 Surveyor Relationship Specialty Start Date End Date Sahra Guy MD [address] [facility] [address] [place], [place] [address] PCP - General Family Medicine 02/20/16 Leonid Leal, STAINING MACHINE OPERATOR.SUPERVISOR ORCHARD [address] [facility] [address] [place], [place] [address] Lending Manager Internal Medicine 07/10/24 Team Status: Active Member [...] Member Role/Relationship Status Dates Roxanne Padilla NP, STAFF SCIENTIST-C Attending Provider Active Start: December 22, 2024 [...] Member Role/Relationship Status Dates Roxanne Padilla NP, STAFF SCIENTIST-C Attending Provider Active Start: December 28, 2024 [...] Member Role/Relationship Status Dates Roxanne Padilla NP, STAFF SCIENTIST-C Attending Provider Active Start: January 09, 2025 [...] Inactive Member Role/Relationship Status Dates Roxanne Padilla STAFF SCIENTIST, STAFF SCIENTIST-C Attending Provider Active Start: January 10, 2025 [...] Member Role/Relationship Status Dates Roxanne Padilla NP, STAFF SCIENTIST-C Attending Provider Active Start: January 19, 2025 [...] Member Role/Relationship Status Dates Roxanne Padilla NP, STAFF SCIENTIST-C Attending Provider Active Start: January 24, 2025 [...] Inactive Member Role/Relationship Status Dates Roxanne Padilla STAFF SCIENTIST, STAFF SCIENTIST-C Attending Provider Active Start: January 09, 2025 [...] Inactive Member Role/Relationship Status Dates Dr. Chey Kumra MD Primary Care Provider Active Start: March [...] 2025 End: March 07, 2025 Roxanne Padilla STAFF SCIENTIST, STAFF SCIENTIST-C Attending Provider Active Start: March 07, 2025 [...] 2025 End: March 30, 2025 Dr. Chey uKmar MD Primary Care Provider Active Start: March [...] 2025 End: March 20, 2025 Roxanne Padilla STAFF SCIENTIST, STAFF SCIENTIST-C Attending Provider Active Start: March 20, 2025 [...] 2025 End: March 24, 2025 Roxanne Padilla STAFF SCIENTIST, STAFF SCIENTIST-C Attending Provider Active Start: March 24, 2025 [...] BE BASED ON THE PRIMARY CLINICAL RECORDS. [facility] [employer] [facility]. provides no warranty or guarantee of the accuracy or completeness of information in this document.
[2025-07-05 07:35] LABS: Hematocrit 31.6 % (37-47); Hemoglobin 10.7 g/dL (12.0-15.0); Immature Granulocytes Count 0.000 X10^3/uL (0.0-0.0); Mean Corp Hgb Conc 33.9 g/dL (32-36); Mean Corpuscular Volume 90.0 fL (81-99); Mean Platelet Vol. 11.0 fl (6.2-12.0); NRBC Flagged by Analyzer 0 % (0-5); Platelet Count 215 K/mm3 (150-450); RBC Distribution Width CV 12.6 % (11.6-14.6); RBC Distribution Width SD 41.5 fl (35.1-43.9); Red Blood Count 3.51 M/mm3 (4.2-5.4); White Blood Count 3.9 K/mm3 (4.4-11.0)
[2025-07-05 08:02] LABS: AST(SGOT) 15 U/L (<=31); Alanine Aminotransfer ALT/SGPT 6 U/L (<=34); Albumin, Serum 3.2 g/dL (3.4-4.8); Alkaline Phosphatase 78 U/L (35-104); Anion Gap 8 (5-15); BUN 16 mg/dL (4-19); BUN/Creat Ratio 62.7 RATIO (10-20); Bilirubin, Direct 0.10 mg/dL (0.00-0.30); Calcium,Total 9.6 mg/dL (7.6-11.0); Carbon Dioxide 27.7 mmol/L (21.0-32.0); Chloride 104 mmol/L (98-108); Globulin 2.7 g/dL (2.2-4.2); Glucose 93 mg/dL (70-99); Potassium 4.1 mmol/L (3.3-5.1); Vitamin D,25 Hydroxy 55.4 ng/mL (30-100)
== END ==
LOC: OLS.WHLEAS 05:00
PROVIDERS: PCP Internal Medicine; Visit Provider Internal Medicine
DX: R48.8 Other symbolic dysfunctions (principal); M62.561 Muscle wasting and atrophy, not elsewhere classified, right lower leg; G14 Postpolio syndrome
CPT/HCPCS: 36415; 80048; 80076; 82306; 83036; 85025

== ENCOUNTER 2025-07-08 22:06 | Emergency (ER) | payer MEDICARE, SELFPAY ==
[2025-07-08 22:07] VITALS: BP 133/95; PULSE 84; RESP 16; TEMP 36.9; O2SAT 98; BMI 15.0
[2025-07-08 22:11] VITALS: BP 133/95; PULSE 84; RESP 16; TEMP 36.9; O2SAT 100
--- OUTSIDE RECORDS SUMMARY | 2025-07-08 22:42 | XMS RPT_ITS | CCD ---
Author Organization [facility] CliniSytn Care Team Providers Care It Security Architect Name Role Phone PROVIDER, UNKNOWN Unavailable Unavailable [...] Provider Sahra Guy MD Primary Care Provider Sarha Guy MD Primary Care Provider Sahra Guy MD Primary Care Provider Sahra Guy Primary Care Provider Mel BREAST TRIMMER.ENGINEERING PRODUCTION LIAISON, Leonid Unavailable SAHRA GUY Attending Unavailable SAHRA GUY Referring Unavailable SAHRA GUY Primary Care Unavailable LEONID ROACH Attending Unavailable LEONID ROACH Referring Unavailable SAHRA GUY Primary Care Unavailable SAHRA GUY Primary Care Unavailable MORIAH LOPEZ Attending Unavailable THNU, GEORGINA A Admitting Unavailable DIANE WILSON Attending Unavailable ZAYNAB VALENCIA Admitting Unavailable SAHRA GYU Primary Care Unavailable Chey Kumar MD Attending [...] Provider Lorie MADDEN, Dr. Mo Attending Provider [phone] Stacy MADDEN, Dr. Guerrier Primary Care Provider Vicente Leon MD Attending Provider Oleghe OLS, Efewongbe Attending Unavailabl e Oleghe [...] e Oleghe, Efewongbe Primary Care Unavailable Tickton AVID EDITOR, Roxanne Attending Unavailable [place]ick[place] AVID EDITOR, Roxanne Attending Unavailable Oleghe, Efewongbe Attending Unavailable Tyra Osorio Attending Unavailable Oleghe, Efewongbe Referring Unavailable Oleghe, Efewongbe Primary Care Unavailable Oleghe, Efewongbe Primary Care Unavailable Oleghe OLS, Efewongbe Attending Unavailabl e Tickton AVID EDITOR, Roxanne Attending Unavailable Oleghe, Efewongbe Primary Care Unavailable Oleghe OLS, Efewongbe Attending Unavailabl e Tickton AVID EDITOR, Roxanne Attending Unavailable Oleghe, Efewongbe Primary Care Unavailable [place] AVID EDITOR, Roxanne Attending Unavailable Oleghe, Efewongbe Primary Care Unavailable Oleghe, Efewongbe Primary Care Unavailable Oleghe, Efewongbe Attending Unavailable Oleghe, Efewongbe Attending Unavailable Tickton AVID EDITOR, Roxanne Attending Unavailable [place] AVID EDITOR, Roxanne Attending Unavailable [place] AVID EDITOR, Roxanne Attending Unavailable [place] AVID EDITOR, Roxanne Attending Unavailable Oleghe OLS, Efewongbe Attending Unavailabl e Allergies Allergy Classification Reported Allergen(s) Allergy Type Date of Onset Reaction(s) Facility (20 sources) Cephalexin; Translations: [CEPHALEXIN] Drug Allergy 5 Diarrhea, GI Upset [facility] Repository (20 sources) Ibuprofen; Translations: [IBUPROFEN] Drug Allergy 5 Intolerance [facility] Repository (20 sources) rofecoxib; Translations: [ROFECOXIB] Drug Allergy 5 Intolerance [facility] Repository (20 sources) Salicylic Acid; Translations: [SALICYLATES] Drug Allergy 5 Intolerance [facility] Repository (1 source) OTHER; Translations: [OTHER] Propensity to adverse reactions (disorder) [facility] Repository (20 sources) OMEGA-3 FATTY ACIDS-VITAMIN E; Translations: [OMEGA-3 FATTY ACIDS-VITAMIN E] Propensity to adverse reactions (disorder) 7 Intolerance [facility] Repository (20 sources) novacaine [Other] Propensity to adverse reactions [address] [facility] (20 sources) Procaine; Translations: [PROCAINE HCL] Drug Allergy [address] [facility] Work Phone: (7 sources) NSAIDs; Translations: [NSAIDS (NON-STEROIDAL ANTI-INFLAMMATO RY DRUG)] Propensity to adverse reactions to drug [address] [facility] (15 sources) Cephalexin; Translations: [cephalexin monohydrate] Drug Allergy 4 Diarrhea [facility] (15 sources) BLOOD THINNERS; Translations: [BLOOD THINNERS] Propensity to adverse reactions 4 Other [facility] Comment on above: BLOOD FROM EYE [...] mg/ml ophthalmic solution (10 sources) Plasma Volume Commercial Real Estate Paralegal Start: 03-30-2025 Dextran 70-Hypromellose drops Active 1 NMA OPHTHALMIC TWICE A DAY March 30, 2025 12:00am dextran 70-hypro mellose (ARTIFICIAL TEARS,[id number],) 0.1-0.3 % ophthalmic solution Use 1 drop in both eyes two times a day. Active docusate sodium 50 mg / sennosides, nursing home 8.6 mg oral tablet (6 sources) Start: [...] 325 mg by mouth every other day. kakbdjhx-qczc-atq8-C -lety-bosw (OSTEO BI-FLEX TRIPLE STRENGTH) 750 mg-644 mg- 30 mg-1 mg tab (6 sources) take 1 tablet by mouth once daily enkeagwa-mkkm-ira0- C-lety-bosw (OSTEO BI-FLEX TRIPLE STRENGTH) 750 mg-644 [...] mouth once daily. Active polyethylene glycol 3350 29969 mg powder for oral solution (6 sources) [...] eyes two times a day. Active rutin/hesp/bioflav/C/ (BIOFLEX ORAL) (20 sources) take 1 capsule by mouth twice daily rutin/hesp/bioflav/C /[id number] (BIOFLEX ORAL) Take 1 capsule by mouth twice daily. Suspended take 1 capsule by mo uth twice daily rutin/hesp/bioflav/C/ (BIOFLEX ORAL) Take 1 capsule by mouth twice daily. 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 and poliomyelitis (20 sources) Post poliomyelitis [...] Translations: [Thoracic compression fracture, closed, initial encounter ([facility])] Onset: 5 Episodic Other fractures (14 sources) [...] E Codes: Fall (9 sources) Fall in snf; Translations: [Unspecified fall, initial encounter] Onset: 12-08-2024 [...] Auto (Unsp spec) [#/Vol] 1.77 10*3/uL 0.83-4.51 [facility] Absolute neutrophil countOrd ered By: Chey Kumar on 04-05-2025 Neutrophils (Bld) [#/Vol] 2.8 10*3/uL 2.0-7.7 [facility] Anion gap in Serum or Plasma Ordered By: Chey Kumar on 04-05-2025 Anion gap [Moles/Vol] 8 mmol/L 5-15 [facility] Automated lymphocyte count a s percentage of total leukocytesOrdered By: Chey Kumar on 04-05-2025 Lymphocytes/100 WBC Auto (Unsp spec) 32.5 % 19-41 [facility] BUN/creatinine ratioOrdered By: Chey Kumar on 04-05-2025 Urea nitrogen/Creatinine [Mass ratio] 60.2 mg/mg High 10-20 [facility] Basophil percentageOrdered B y: Chey Kumar on 04-05-2025 Basophils/100 WBC (Bld) 0.9 % 0-1 [facility] Bilirubin directOrdered By: Chey Kumar on 04-05-2025 Bilirubin.direct [Mass/Vol] 0.10 mg/dL 0.00-0.30 [facility] Comment on above: Hemolysis present, R esults could be affected. Bilirubin, totalOrdered By: Chey Kumar on 04-05-2025 Bilirubin [Mass/Vol] 0.27 mg/dL 0.00-1.30 [facility] Carbon dioxide, total [Moles /volume] in Central venous bloodOrdered By: Chey Kumar on 04-05-2025 CO2 [Moles/Vol] 25.0 mmol/L 21.0-32.0 [facility] Chloride assayOrdered By: Walt Kumar on 04-05-2025 Chloride [Moles/Vol] 105 mmol/L 98-108 [facility] Eosinophil percentageOrdered By: Chey Kumar on 04-05-2025 Eosinophils/100 WBC (Bld) 2.0 % 0-5 [facility] Erythrocyte distribution wid th ratioOrdered By: Chey Kumar on 04-05-2025 Erythrocyte distribution width (RBC) [Ratio] 13.2 % 11.6-14.6 [facility] Erythrocyte distribution wid th standard deviationOrdered By: Chey Kumar on 04-05-2025 Erythrocyte distribution width (RBC) [Ratio] 44.5 fl High 35.1-43.9 [facility] Glomerular filtration rate ( GFR) estimation/1.73 sq m using serum, plasma, or whole bOrdered By: Chey Kumar on 04-05-2025 GFR/1.73 sq M.predicted among non-blacks MDRD (S/P/Bld) [Vol rate/Area] 104 mL/min/{1.73_m2} >60 [facility] Comment on above: mL/min/1.73m2 CKD-EP I Creatinine Equation (2020) Hematocrit Auto (Bld) [Volum e fraction]Ordered By: Chey Kumar on 04-05-2025 Hematocrit (Bld) [Volume fraction] 33.4 % Low 37-47 [facility] Hemoglobin A1c percentageOrd ered By: Chey Kumar on 04-05-2025 HbA1c (Bld) [Mass fraction] 4.9 % <5.7 [facility] Comment on above: Normal < 5.7 % Predi abetic 5.7 - 6.4 % Diabetic >or= 6.5 % Please note range changes. Hemoglobin measurementOrdere d By: Chey Kumar on 04-05-2025 Hemoglobin (Bld) [Mass/Vol] 11.2 g/dL Low 12.0-15.0 [facility] Immature granulocytes/100 WB C Auto (Bld)Ordered By: Chey Kumar on 04-05-2025 Immature granulocytes/100 WBC (Bld) 0.200 % 0.0-0.9 [facility] Comment on above: IG% - Immature Granu locytes (promyelocytes, myelocytes and metamyelocytes) > 1% indicates that a LEFT SHIFT is Present. Laboratory - Chemistry and C hemistry - challengeOrdered By: Chey Kumar on 04-05-2025 AST [Catalytic activity/Vol] 23 U/L <32 [facility] Comment on above: Hemolysis present, R esults could be affected. MCV (mean corpuscular volume ) determinationOrdered By: Chey Kumar on 04-05-2025 MCV (RBC) [Entitic vol] 92.3 fL 81-99 [facility] Mean corpuscular hemoglobin (MCH) determinationOrdered By: Chey Kumar 04-05-2025 MCH (RBC) [Entitic mass] 30.9 pg 27.0-32.0 [facility] Mean corpuscular hemoglobin concentration (MCHC) determinationOrdered By: Chey Kumar on 04-05-2025 MCHC (RBC) [Mass/Vol] 33.5 g/dL 32-36 [facility] Mean platelet volume determi nationOrdered By: Chey Kumar on 04-05-2025 Platelet mean volume (Bld) [Entitic vol] 11.5 fL 6.2-12.0 [facility] Monocyte percentageOrdered B y: Chey Kumar on 04-05-2025 Monocytes/100 WBC (Bld) 12.5 % High 0-10 [facility] Neutrophil percentageOrdered By: Chey Kumar on 04-05-2025 Neutrophils/100 WBC (Bld) 51.9 % 47-70 [facility] Nucleated red blood cell per centageOrdered By: Chey Kumar on 04-05-2025 Nucleated RBC/100 WBC (Bld) [Ratio] 0 % 0-5 [facility] Platelet countOrdered By: Walt adeyoli Kumar on 04-05-2025 Platelets (Bld) [#/Vol] 229 10*3/uL 150-450 [facility] Potassium measurement (mass/ volume)Ordered By: Chey Kumar on 04-05-2025 Potassium (Unsp spec) [Mass/Vol] 4.3 mmol/L 3.3-5.1 [facility] Comment on above: Hemolysis present, R esults could be affected. RBC Auto (Bld) [#/Vol]Ordere d By: Chey Kumar on 04-05-2025 RBC (Bld) [#/Vol] 3.62 10*6/uL Low 4.2-5.4 [facility] Serum creatinine measurement (mass/volume)Ordered By: Chey Kumar on 04-05-2025 Creatinine [Mass/Vol] 0.29 mg/dL Low 0.70-1.20 [facility] Serum globulin measurementOr dered By: Chey Kumar on 04-05-2025 Globulin (S) [Mass/Vol] 2.4 g/dL 2.2-4.2 [facility] Serum glucose measurement (m ass/volume)Ordered By: Chey Kumar on 04-05-2025 Glucose [Mass/Vol] 101 mg/dL High 70-99 [facility] Serum or plasma alanine grimaldo otransferase (ALT) measurementOrdered By: Chey Kumar on 04-05-2025 ALT [Catalytic activity/Vol] 14 U/L <35 [facility] Serum or plasma albumin ori urement (mass/volume)Ordered By: Chey Kumar on 04-05-2025 Albumin [Mass/Vol] 3.2 g/dL Low 3.4-4.8 [facility] Serum or plasma alkaline nikia sphatase measurementOrdered By: Chey Kumar on 04-05-2025 ALP [Catalytic activity/Vol] 62 U/L 35-104 [facility] Serum or plasma calcium ori urement (mass/volume)Ordered By: Chey Kumar on 04-05-2025 Calcium [Mass/Vol] 9.6 mg/dL 7.6-11.0 [facility] Serum or plasma urea nitroge n measurement (mass/volume)Ordered By: Chey Kumar on 04-05-2025 Urea nitrogen [Mass/Vol] 17 mg/dL 4-19 [facility] Sodium levelOrdered By: Melinda aguilarella Stacy on 04-05-2025 Sodium [Moles/Vol] 138 mmol/L 133-145 [facility] Total proteinOrdered By: Gary Kumar on 04-05-2025 Protein [Mass/Vol] 5.6 g/dL Low 5.9-8.4 [facility] White blood cell (WBC) count Ordered By: Chey Kumar on 04-05-2025 WBC (Bld) [#/Vol] 5.4 10*3/uL 4.4-11.0 [facility] Lumbar Spine 2 or 3 Viewson 03-30-2025 Lumbar Spine 2 or 3 Views [facility] [address] [place] [address] [id number] Lumbar Spine 2 or 3 Views MR#: [id number] Acct: [id number] Name: TENA CANNON Rep #: [id number] : 1940 F 84 From: Edgard Briceño MD PCP: Dr. Chey Kumar MD Status: DEP AMB Study: Lumbar Spine 2 or 3 Views Date of Exam: Exam# [id number] Ordering Dr: Tyra Osorio PROCEDURE: LUMBAR SPINE [...] diffuse idiopathic skeletal hyperostosis DISH.. Reading Location: [facility] CC: ISAK Sutton; Dr. Chey Kumar MD Operator Helper: Signed Normal [facility] Orthopedic Visit Reporton Orthopedic Visit Report [facility] [address] [place] [address] OFFICE VISIT Date of Service: 03/30/25 MR#: [id number] Acct: [id number] Name: TENA CANNON Rep #: [id number] : 1940 Provider: ISAK Sutton Age/Sex: 84/F Location: [facility]DANDRE Status: Signed Intake Vital Signs 02/18/25 13:04 [...] bisacodyl 10 mg rectal suppository 10 mg ND QDAY PRN 03/30/2503/30 History brimonidine 0.1 % [...] fallen in the past year?: Yes (5//25) [facility] Medical History (Updated 03/30/25 @ 16:19 by [...] brace that was given to her at [facility] after the fall. The main reason she [...] years ago had a kyphoplasty at the [facility]. Ortho Exam General General: Yes no [...] No hyperreflexia (more content not included)... Normal [facility] Abd Decub and/or Erect(Darrell blon 03-25-2025 Abd Decub and/or Erect([facility] [address] [place] [address] Abd Decub and/or Erect([facility] MR#: [id number] Acct: [id number] Name: TENA CANNON Rep #: [id number] : 1940 F 84 From: Joshua Cota DO PCP: Dr. Chey Kumar MD Status: PRE ER Study: Abd Decub and/or Erect([facility] Date of Exam: 0 03/25/25 Exam# [id number] Ordering Dr: Vicente Leon MD PROCEDURE: ABD DECUB AND/OR ERECT(PORTABLE 03/25/2025 REASON FOR EXAM: CONSTIPATION TECHNIQUE: ABD DECUB AND/OR ERECT(PORTABLE COMPARISON: December 08, 2024 CT FINDINGS: Bowel gas: Nonobstructing nonspecific bowel-gas pattern. Kjez-zw-cfkjybsa fecal load consistent with constipation. Calcifications: No suspicious calcifications. Bones: Degenerative changes of the lumbar spine. Kyphoplasties cement in L3. Other: Cholecystectomy clips in the gallbladder fossa. Pronounced left convexity scoliosis of the thoracolumbar spine RAD/Abd Decub and/or Erect([facility] IMPRESSION: Possible fecal impaction in the rectum [facility] CC: Dr. Vicente Leon MD; Dr. Chey Kumar MD Operator Helper: Signed Normal [facility] Emergency Department Summary on 03-25-2025 Emergency Department Summary [facility] Medical Records Department [address] [place] [address] Emergency Department Summary 03/25/25 MR#: [id number] Acct: [id number] Name: TENA CANNON Rep #: [id number] : 1940 84 From: Vicente Leon MD PCP: Dr. Chey Kumar MD Status:REG ER Location: ED HPI HPI - GI History of Present Illness Chief Complaint: Constipation Narrative Narrative: 84-year-old female presents from [facility] with constipation for the last week or [...] movement but is unable to do so. [facility] Medical History History of fractured vertebra [...] (more content not included)... Normal [facility] 03-22-2025 [facility] Telephone (FAMDNA) TENA CANNON ([id number]) 1940 F Date Time Provider Department 03/22/25 [...] daughter: Juan Call patient at: on cell [phone] (home) [phone] (cell) Was an appointment scheduled: No Closing statement: Results or non-symptom based questions: Thank you for calling [facility], your call will be returned within the next business day. Norma Torres [facility] Allerg[facility] As of Date: 03/22/2025 Noted Allergy [...] times a day. - dextran 70-hypromellose (ARTIFICIAL TEARS,[id number],) 0.1-0.3 % ophthalmic solution Use 1 drop in both eyes two times a day. - lidocaine (ASPERFLEX, LIDOCAINE,) 4 % patch Apply 1 application as directed once daily. Apply to lower back, on for twelve hours, off for twelve hours. - oxzezmln-drwr-ydd2-C-m ang-bosw (OSTEO BI-FLEX TRIPLE STRENGTH) 750 mg-644 [...] - cyclopentolate (more content not included)... Normal [facility] Absolute lymphocyte countOrd ered By: Chey Kumar on 03-07-2025 Lymphocytes Auto (Unsp spec) [#/Vol] 1.93 10*3/uL 0.83-4.51 [facility] Absolute neutrophil countOrd ered By: Waltcarmenbrittany Mengella on 03-07-2025 Neutrophils (Bld) [#/Vol] 1.9 10*3/uL Low 2.0-7.7 [facility] Anion gap in Serum or Plasma Ordered By: Chey Singletongriseldaella on 03-07-2025 Anion gap [Moles/Vol] 10 mmol/L 5-15 [facility] Automated lymphocyte count a s percentage of total leukocytesOrdered By: Chey Kumar on 03-07-2025 Lymphocytes/100 WBC Auto (Unsp spec) 40.5 % 19-41 [facility] BUN/creatinine ratioOrdered By: Chey Kumar on 03-07-2025 Urea nitrogen/Creatinine [Mass ratio] 47.2 mg/mg High 10-20 [facility] Basophil percentageOrdered B y: Melindashayoli Singletongriseldaella on 03-07-2025 Basophils/100 WBC (Bld) 1.1 % High 0-1 [facility] Carbon dioxide, total [Moles /volume] in Central venous bloodOrdered By: Chey Singletongriseldaella on 03-07-2025 CO2 [Moles/Vol] 25.6 mmol/L 21.0-32.0 [facility] Chloride assayOrdered By: Walt carmenbrittany Kumar on 03-07-2025 Chloride [Moles/Vol] 102 mmol/L 98-108 [facility] Eosinophil percentageOrdered By: Chey Singletongriseldaella on 03-07-2025 Eosinophils/100 WBC (Bld) 3.6 % 0-5 [facility] Erythrocyte distribution wid th ratioOrdered By: Chey Singletongriseldaella on 03-07-2025 Erythrocyte distribution width (RBC) [Ratio] 14.1 % 11.6-14.6 [facility] Erythrocyte distribution wid th standard deviationOrdered By: Chey Kumar on 03-07-2025 Erythrocyte distribution width (RBC) [Ratio] 49.0 fl High 35.1-43.9 [facility] Glomerular filtration rate ( GFR) estimation/1.73 sq m using serum, plasma, or whole bOrdered By: Chey Kumar on 03-07-2025 GFR/1.73 sq M.predicted among non-blacks MDRD (S/P/Bld) [Vol rate/Area] 108 mL/min/{1.73_m2} >60 [facility] Comment on above: mL/min/1.73m2 CKD-EP I Creatinine Equation (2020) Hematocrit Auto (Bld) [Volum e fraction]Ordered By: Chey Kumar on 03-07-2025 Hematocrit (Bld) [Volume fraction] 33.3 % Low 37-47 [facility] Hemoglobin measurementOrdere d By: Chey Kumar on 03-07-2025 Hemoglobin (Bld) [Mass/Vol] 10.9 g/dL Low 12.0-15.0 [facility] Immature granulocytes/100 WB C Auto (Bld)Ordered By: Chey Kumar on 03-07-2025 Immature granulocytes/100 WBC (Bld) 0.200 % 0.0-0.9 [facility] Comment on above: IG% - Immature Granu locytes (promyelocytes, myelocytes and metamyelocytes) > 1% indicates that a LEFT SHIFT is Present. MCV (mean corpuscular volume ) determinationOrdered By: Chey Kumar on 03-07-2025 MCV (RBC) [Entitic vol] 93.8 fL 81-99 [facility] Mean corpuscular hemoglobin (MCH) determinationOrdered By: Chey Kumar on 03-07-2025 MCH (RBC) [Entitic mass] 30.7 pg 27.0-32.0 [facility] Mean corpuscular hemoglobin concentration (MCHC) determinationOrdered By: Chey Kumar on 03-07-2025 MCHC (RBC) [Mass/Vol] 32.7 g/dL 32-36 [facility] Mean platelet volume determi nationOrdered By: Chey Kumar on 03-07-2025 Platelet mean volume (Bld) [Entitic vol] 11.3 fL 6.2-12.0 [facility] Monocyte percentageOrdered B y: Melindashayoli Singletongriseldaella on 03-07-2025 Monocytes/100 WBC (Bld) 14.5 % High 0-10 [facility] Neutrophil percentageOrdered By: Melindashayoli Singletongriseldaella on 03-07-2025 Neutrophils/100 WBC (Bld) 40.1 % Low 47-70 [facility] Nucleated red blood cell per centageOrdered By: Chey Singletongriseldaella on 03-07-2025 Nucleated RBC/100 WBC (Bld) [Ratio] 0 % 0-5 [facility] Platelet countOrdered By: Walt carmenbrittany Kumar on 03-07-2025 Platelets (Bld) [#/Vol] 238 10*3/uL 150-450 [facility] Potassium measurement (mass/ volume)Ordered By: Chey Kumar on 03-07-2025 Potassium (Unsp spec) [Mass/Vol] 3.8 mmol/L 3.3-5.1 [facility] RBC Auto (Bld) [#/Vol]Ordere d By: Chey Kumar on 03-07-2025 RBC (Bld) [#/Vol] 3.55 10*6/uL Low 4.2-5.4 [facility] Serum creatinine measurement (mass/volume)Ordered By: Chey Kumar on 03-07-2025 Creatinine [Mass/Vol] 0.25 mg/dL Low 0.70-1.20 [facility] Serum glucose measurement (m ass/volume)Ordered By: Chey uKmar on 03-07-2025 Glucose [Mass/Vol] 95 mg/dL 70-99 [facility] Serum or plasma calcium ori urement (mass/volume)Ordered By: Chey Kumar on 03-07-2025 Calcium [Mass/Vol] 9.8 mg/dL 7.6-11.0 [facility] Serum or plasma urea nitroge n measurement (mass/volume)Ordered By: Chey Kumar on 03-07-2025 Urea nitrogen [Mass/Vol] 12 mg/dL 4-19 [facility] Sodium levelOrdered By: Melinda Kumar on 03-07-2025 Sodium [Moles/Vol] 138 mmol/L 133-145 [facility] White blood cell (WBC) count Ordered By: Chey Kumar on 03-07-2025 WBC (Bld) [#/Vol] 4.8 10*3/uL 4.4-11.0 [facility] Absolute lymphocyte countOrd ered By: Chey Kumar on 02-28-2025 Lymphocytes Auto (Unsp spec) [#/Vol] 1.77 10*3/uL 0.83-4.51 [facility] Absolute neutrophil countOrd ered By: Chey Kumar on 02-28-2025 Neutrophils (Bld) [#/Vol] 2.6 10*3/uL 2.0-7.7 [facility] Anion gap in Serum or Plasma Ordered By: Chey Kumar on 02-28-2025 Anion gap [Moles/Vol] 10 mmol/L 5-15 [facility] Automated lymphocyte count a s percentage of total leukocytesOrdered By: Chey Kumar on 02-28-2025 Lymphocytes/100 WBC Auto (Unsp spec) 34.0 % 19-41 [facility] BUN/creatinine ratioOrdered By: Chey Kumar on 02-28-2025 Urea nitrogen/Creatinine [Mass ratio] 50.2 mg/mg High 10-20 [facility] Basophil percentageOrdered B y: Chey Kumar on 02-28-2025 Basophils/100 WBC (Bld) 1.2 % High 0-1 [facility] Carbon dioxide, total [Moles /volume] in Central venous bloodOrdered By: Chey Kumar on 02-28-2025 CO2 [Moles/Vol] 25.0 mmol/L 21.0-32.0 [facility] Chloride assayOrdered By: Walt Kumar on 02-28-2025 Chloride [Moles/Vol] 101 mmol/L 98-108 [facility] Eosinophil percentageOrdered By: Chey Kumar on 02-28-2025 Eosinophils/100 WBC (Bld) 2.3 % 0-5 [facility] Erythrocyte distribution wid th ratioOrdered By: Chey Kumar on 02-28-2025 Erythrocyte distribution width (RBC) [Ratio] 14.2 % 11.6-14.6 [facility] Erythrocyte distribution wid th standard deviationOrdered By: Chey Kumar on 02-28-2025 Erythrocyte distribution width (RBC) [Ratio] 48.8 fl High 35.1-43.9 [facility] Glomerular filtration rate ( GFR) estimation/1.73 sq m using serum, plasma, or whole bOrdered By: Chey Kumar on 02-28-2025 GFR/1.73 sq M.predicted among non-blacks MDRD (S/P/Bld) [Vol rate/Area] 110 mL/min/{1.73_m2} >60 [facility] Comment on above: mL/min/1.73m2 CKD-EP I Creatinine Equation (2020) Hematocrit Auto (Bld) [Volum e fraction]Ordered By: [facility] Cent[facility]oli Singletonella on 02-28-2025 Hematocrit (Bld) [Volume fraction] 33.2 % Low 37-47 [facility] Hemoglobin measurementOrdere d By: Chey Kumar on 02-28-2025 Hemoglobin (Bld) [Mass/Vol] 11.0 g/dL Low 12.0-15.0 [facility] Immature granulocytes/100 WB C Auto (Bld)Ordered By: Chey Kumar on 02-28-2025 Immature granulocytes/100 WBC (Bld) 0.200 % 0.0-0.9 [facility] Comment on above: IG% - Immature Granu locytes (promyelocytes, myelocytes and metamyelocytes) > 1% indicates that a LEFT SHIFT is Present. Iron measurement (mass/mass) Ordered By: Chey Kumar on 02-28-2025 Iron (Unsp spec) [Mass/Mass] 51 ug/dL 50-170 [facility] MCV (mean corpuscular volume ) determinationOrdered By: Chey Kumar on 02-28-2025 MCV (RBC) [Entitic vol] 93.3 fL 81-99 [facility] Mean corpuscular hemoglobin (MCH) determinationOrdered By: carmenpleasant plainsyoli Kumar 02-28-2025 MCH (RBC) [Entitic mass] 30.9 pg 27.0-32.0 [facility] Mean corpuscular hemoglobin concentration (MCHC) determinationOrdered By: Chey Kumar on 02-28-2025 MCHC (RBC) [Mass/Vol] 33.1 g/dL 32-36 [facility] Mean platelet volume determi nationOrdered By: Chey Kumar on 02-28-2025 Platelet mean volume (Bld) [Entitic vol] 11.0 fL 6.2-12.0 [facility] Monocyte percentageOrdered B y: Chey Kumar on 02-28-2025 Monocytes/100 WBC (Bld) 12.9 % High 0-10 [facility] Neutrophil percentageOrdered By: Chey Kumar on 02-28-2025 Neutrophils/100 WBC (Bld) 49.4 % 47-70 [facility] No Panel InformationOrdered By: Chey Kumar on 02-28-2025 Unsaturated Iron Binding Capacity 120 ug/dL Low 228-428 [facility] Nucleated red blood cell per centageOrdered By: Chey Kumar on 02-28-2025 Nucleated RBC/100 WBC (Bld) [Ratio] 0 % 0-5 [facility] Platelet countOrdered By: Walt carmenbrittany Kumar on 02-28-2025 Platelets (Bld) [#/Vol] 228 10*3/uL 150-450 [facility] Potassium measurement (mass/ volume)Ordered By: Chey Kumar on 02-28-2025 Potassium (Unsp spec) [Mass/Vol] 4.0 mmol/L 3.3-5.1 [facility] RBC Auto (Bld) [#/Vol]Ordere d By: Chey Kumar on 02-28-2025 RBC (Bld) [#/Vol] 3.56 10*6/uL Low 4.2-5.4 [facility] Serum creatinine measurement (mass/volume)Ordered By: Chey Kumar on 02-28-2025 Creatinine [Mass/Vol] 0.24 mg/dL Low 0.70-1.20 [facility] Serum glucose measurement (m ass/volume)Ordered By: Chey Kumar on 02-28-2025 Glucose [Mass/Vol] 108 mg/dL High 70-99 [facility] Serum or plasma calcium ori urement (mass/volume)Ordered By: Chey Kumar on 02-28-2025 Calcium [Mass/Vol] 9.5 mg/dL 7.6-11.0 [facility] Serum or plasma ferritin skylar surement (mass/volume)Ordered By: Chey Kumar on 02-28-2025 Ferritin [Mass/Vol] 1486 ng/mL High 22-378 [facility] Serum or plasma iron saturat ion measurement (mass fraction)Ordered By: Chey Kumar on 02-28-2025 Iron saturation [Mass fraction] 29.8 % 13-59 [facility] Comment on above: Previous reported re sult: 30.0 %Edited by: KAVYA on 02/28/25:0818 AMENDED REPORT 02/28/25 0818 IRON SATURATION previously reported as: 30.0 % Serum or plasma urea nitroge n measurement (mass/volume)Ordered By: Chey Kumar on 02-28-2025 Urea nitrogen [Mass/Vol] 12 mg/dL 4-19 [facility] Sodium levelOrdered By: Melinda perezrhona Stacy on 02-28-2025 Sodium [Moles/Vol] 136 mmol/L 133-145 [facility] White blood cell (WBC) count Ordered By: Chey Kumar on 02-28-2025 WBC (Bld) [#/Vol] 5.2 10*3/uL 4.4-11.0 [facility] Absolute lymphocyte countOrd ered By: Chey Kumar on 02-21-2025 Lymphocytes Auto (Unsp spec) [#/Vol] 1.88 10*3/uL 0.83-4.51 [facility] Absolute neutrophil countOrd ered By: Chey Kumar on 02-21-2025 Neutrophils (Bld) [#/Vol] 1.7 10*3/uL Low 2.0-7.7 [facility] Anion gap in Serum or Plasma Ordered By: hCey Kumar on 02-21-2025 Anion gap [Moles/Vol] 10 mmol/L 5-15 [facility] Automated lymphocyte count a s percentage of total leukocytesOrdered By: Chey Kumar on 02-21-2025 Lymphocytes/100 WBC Auto (Unsp spec) 43.4 % High 19-41 [facility] BUN/creatinine ratioOrdered By: Chey Kumar on 02-21-2025 Urea nitrogen/Creatinine [Mass ratio] 33.9 mg/mg High 10-20 [facility] Basophil percentageOrdered B y: Chey Kumar on 02-21-2025 Basophils/100 WBC (Bld) 1.4 % High 0-1 [facility] Carbon dioxide, total [Moles /volume] in Central venous bloodOrdered By: Chey Kumar on 02-21-2025 CO2 [Moles/Vol] 24.2 mmol/L 21.0-32.0 [facility] Chloride assayOrdered By: Walt Kumar on 02-21-2025 Chloride [Moles/Vol] 100 mmol/L 98-108 [facility] Eosinophil percentageOrdered By: Chey Kumar on 02-21-2025 Eosinophils/100 WBC (Bld) 1.8 % 0-5 [facility] Erythrocyte distribution wid th ratioOrdered By: Chey Kmuar on 02-21-2025 Erythrocyte distribution width (RBC) [Ratio] 14.3 % 11.6-14.6 [facility] Erythrocyte distribution wid th standard deviationOrdered By: Chey Kumar on 02-21-2025 Erythrocyte distribution width (RBC) [Ratio] 47.4 fl High 35.1-43.9 [facility] Glomerular filtration rate ( GFR) estimation/1.73 sq m using serum, plasma, or whole bOrdered By: Chey Kumar on 02-21-2025 GFR/1.73 sq M.predicted among non-blacks MDRD (S/P/Bld) [Vol rate/Area] 102 mL/min/{1.73_m2} >60 [facility] Comment on above: mL/min/1.73m2 CKD-EP I Creatinine Equation (2020) Hematocrit Auto (Bld) [Volum e fraction]Ordered By: Chey Kumar on 02-21-2025 Hematocrit (Bld) [Volume fraction] 31.2 % Low 37-47 [facility] Hemoglobin measurementOrdere d By: Chey Kumar on 02-21-2025 Hemoglobin (Bld) [Mass/Vol] 10.7 g/dL Low 12.0-15.0 [facility] Immature granulocytes/100 WB C Auto (Bld)Ordered By: Chey Kumar on 02-21-2025 Immature granulocytes/100 WBC (Bld) 0.200 % 0.0-0.9 [facility] Comment on above: IG% - Immature Granu locytes (promyelocytes, myelocytes and metamyelocytes) > 1% indicates that a LEFT SHIFT is Present. MCV (mean corpuscular volume ) determinationOrdered By: Chey Kumar on 02-21-2025 MCV (RBC) [Entitic vol] 91.0 fL 81-99 [facility] Mean corpuscular hemoglobin (MCH) determinationOrdered By: carmenpleasant plainsyoli Kumar on 02-21-2025 MCH (RBC) [Entitic mass] 31.2 pg 27.0-32.0 [facility] Mean corpuscular hemoglobin concentration (MCHC) determinationOrdered By: Chey Kumar on 02-21-2025 MCHC (RBC) [Mass/Vol] 34.3 g/dL 32-36 [facility] Mean platelet volume determi nationOrdered By: Chey Kumar on 02-21-2025 Platelet mean volume (Bld) [Entitic vol] 11.2 fL 6.2-12.0 [facility] Monocyte percentageOrdered B y: Chey Kumar on 02-21-2025 Monocytes/100 WBC (Bld) 14.8 % High 0-10 [facility] Neutrophil percentageOrdered By: Chey Kumar on 02-21-2025 Neutrophils/100 WBC (Bld) 38.4 % Low 47-70 [facility] Nucleated red blood cell per centageOrdered By: Chey Kumar on 02-21-2025 Nucleated RBC/100 WBC (Bld) [Ratio] 0 % 0-5 [facility] Platelet countOrdered By: Walt Kumar on 02-21-2025 Platelets (Bld) [#/Vol] 280 10*3/uL 150-450 [facility] Potassium measurement (mass/ volume)Ordered By: Chey Kumar on 02-21-2025 Potassium (Unsp spec) [Mass/Vol] 4.3 mmol/L 3.3-5.1 [facility] RBC Auto (Bld) [#/Vol]Ordere d By: Chey Kumar on 02-21-2025 RBC (Bld) [#/Vol] 3.43 10*6/uL Low 4.2-5.4 [facility] Serum creatinine measurement (mass/volume)Ordered By: Chey Kumar on 02-21-2025 Creatinine [Mass/Vol] 0.31 mg/dL Low 0.70-1.20 [facility] Serum glucose measurement (m ass/volume)Ordered By: Chey Kumar on 02-21-2025 Glucose [Mass/Vol] 88 mg/dL 70-99 [facility] Serum or plasma calcium ori urement (mass/volume)Ordered By: Chey Kumar on 02-21-2025 Calcium [Mass/Vol] 10.0 mg/dL 7.6-11.0 [facility] Serum or plasma urea nitroge n measurement (mass/volume)Ordered By: Chey Kumar on 02-21-2025 Urea nitrogen [Mass/Vol] 11 mg/dL 4-19 [facility] Sodium levelOrdered By: Melinda Kumar on 02-21-2025 Sodium [Moles/Vol] 134 mmol/L 133-145 [facility] White blood cell (WBC) count Ordered By: Chey Kumar on 02-21-2025 WBC (Bld) [#/Vol] 4.3 10*3/uL Low 4.4-11.0 [facility] Absolute lymphocyte countOrd ered By: Chey Maniaubrey on 02-14-2025 Lymphocytes Auto (Unsp spec) [#/Vol] 1.92 10*3/uL 0.83-4.51 [facility] Absolute neutrophil countOrd ered By: Melindabrittany Manigriseldaella on 02-14-2025 Neutrophils (Bld) [#/Vol] 2.1 10*3/uL 2.0-7.7 [facility] Anion gap in Serum or Plasma Ordered By: Chey Menge on 02-14-2025 Anion gap [Moles/Vol] 10 mmol/L 5-15 [facility] Automated lymphocyte count a s percentage of total leukocytesOrdered By: Chey Singletongriseldaella on 02-14-2025 Lymphocytes/100 WBC Auto (Unsp spec) 39.8 % 19-41 [facility] BUN/creatinine ratioOrdered By: Efgarfield Singletongriseldae on 02-14-2025 Urea nitrogen/Creatinine [Mass ratio] 44.8 mg/mg High 10-20 [facility] Basophil percentageOrdered B y: Melindashayoli Singletongriseldae on 02-14-2025 Basophils/100 WBC (Bld) 0.8 % 0-1 [facility] Carbon dioxide, total [Moles /volume] in Central venous bloodOrdered By: Chey Singletongriseldaella on 02-14-2025 CO2 [Moles/Vol] 26.0 mmol/L 21.0-32.0 [facility] Chloride assayOrdered By: Ef garfield Singletongriseldaella on 02-14-2025 Chloride [Moles/Vol] 102 mmol/L 98-108 [facility] Eosinophil percentageOrdered By: Chey Singletongriseldae on 02-14-2025 Eosinophils/100 WBC (Bld) 2.5 % 0-5 [facility] Erythrocyte distribution wid th ratioOrdered By: Efcarmenongbe Manigriseldae on 02-14-2025 Erythrocyte distribution width (RBC) [Ratio] 14.1 % 11.6-14.6 [facility] Erythrocyte distribution wid th standard deviationOrdered By: Efadebe Manigriseldae on 02-14-2025 Erythrocyte distribution width (RBC) [Ratio] 48.4 fl High 35.1-43.9 [facility] Glomerular filtration rate ( GFR) estimation/1.73 sq m using serum, plasma, or whole bOrdered By: Chey Kumar on 02-14-2025 GFR/1.73 sq M.predicted among non-blacks MDRD (S/P/Bld) [Vol rate/Area] 110 mL/min/{1.73_m2} >60 [facility] Comment on above: mL/min/1.73m2 CKD-EP I Creatinine Equation (2020) Hematocrit Auto (Bld) [Volum e fraction]Ordered By: Chey Kumar on 02-14-2025 Hematocrit (Bld) [Volume fraction] 31.6 % Low 37-47 [facility] Hemoglobin measurementOrdere d By: Chey Kumar on 02-14-2025 Hemoglobin (Bld) [Mass/Vol] 10.4 g/dL Low 12.0-15.0 [facility] Immature granulocytes/100 WB C Auto (Bld)Ordered By: Chey Kumar on 02-14-2025 Immature granulocytes/100 WBC (Bld) 0.200 % 0.0-0.9 [facility] Comment on above: IG% - Immature Granu locytes (promyelocytes, myelocytes and metamyelocytes) > 1% indicates that a LEFT SHIFT is Present. MCV (mean corpuscular volume ) determinationOrdered By: Chey Kumar on 02-14-2025 MCV (RBC) [Entitic vol] 93.8 fL 81-99 [facility] Mean corpuscular hemoglobin (MCH) determinationOrdered By: Chey Kumar on 02-14-2025 MCH (RBC) [Entitic mass] 30.9 pg 27.0-32.0 [facility] Mean corpuscular hemoglobin concentration (MCHC) determinationOrdered By: Chey Kumar on 02-14-2025 MCHC (RBC) [Mass/Vol] 32.9 g/dL 32-36 [facility] Mean platelet volume determi nationOrdered By: Chey Kumar on 02-14-2025 Platelet mean volume (Bld) [Entitic vol] 10.4 fL 6.2-12.0 [facility] Monocyte percentageOrdered B y: Chey Kumar on 02-14-2025 Monocytes/100 WBC (Bld) 13.3 % High 0-10 [facility] Neutrophil percentageOrdered By: Melindashayoli Singletongriseldaella on 02-14-2025 Neutrophils/100 WBC (Bld) 43.4 % Low 47-70 [facility] Nucleated red blood cell per centageOrdered By: Chey Singletongriseldaella on 02-14-2025 Nucleated RBC/100 WBC (Bld) [Ratio] 0 % 0-5 [facility] Platelet countOrdered By: Walt adeyoli Singletongriseldaella on 02-14-2025 Platelets (Bld) [#/Vol] 280 10*3/uL 150-450 [facility] Potassium measurement (mass/ volume)Ordered By: Chey Kumar on 02-14-2025 Potassium (Unsp spec) [Mass/Vol] 3.8 mmol/L 3.3-5.1 [facility] RBC Auto (Bld) [#/Vol]Ordere d By: Melindashayoli Singletongriseldaella on 02-14-2025 RBC (Bld) [#/Vol] 3.37 10*6/uL Low 4.2-5.4 [facility] Serum creatinine measurement (mass/volume)Ordered By: Chey Kumar 02-14-2025 Creatinine [Mass/Vol] 0.23 mg/dL Low 0.70-1.20 [facility] Serum glucose measurement (m ass/volume)Ordered By: Chey Kumar 02-14-2025 Glucose [Mass/Vol] 92 mg/dL 70-99 [facility] Serum or plasma calcium ori urement (mass/volume)Ordered By: Chey Singletongriseldaella 02-14-2025 Calcium [Mass/Vol] 9.7 mg/dL 7.6-11.0 [facility] Serum or plasma urea nitroge n measurement (mass/volume)Ordered By: Chey Kumar on 02-14-2025 Urea nitrogen [Mass/Vol] 10 mg/dL 4-19 [facility] Sodium levelOrdered By: Melinda perezrhona Stacy on 02-14-2025 Sodium [Moles/Vol] 138 mmol/L 133-145 [facility] White blood cell (WBC) count Ordered By: Chey Kumar on 02-14-2025 WBC (Bld) [#/Vol] 4.8 10*3/uL 4.4-11.0 Dianedivine [facility] Augstina 02-10-2025 [facility] Telephone (UROLWS) POPETENA M ([id number]) 1940 F Date Time Provider Department 02/10/25 [...] LPN 02/10/2025 9:37 AM Signed Order Audit [place]: sulfamethoxazole-trime thoprim (BACTRIM DS) 800-160 mg per tablet [[id number]] Original entry by Marilyn Santos PA-C 02/09/2025 [...] -- Pharmacy Associated Diagnoses: -- Dates Yandy Cruz, [employer] SAWYER 02/10/2025 9:37 AM Signed Faxed order and results to [facility]. LOBO Armas Kimberly, LPN 02/14/2025 9:52 AM Signed Called [facility], patient on [address]. Spoke with LOBO Soto. Reports patient had [...] times a day. - dextran 70-hypromellose (ARTIFICIAL TEARS,[id number],) 0.1-0.3 % ophthalmic solution Use 1 drop in both eyes two times a day. - lidocaine (ASPERFLEX, LIDOCAINE,) 4 % patch Apply 1 application as directed once daily. Apply to lower back, on for twelve hours, off for twelve hours. - udqpelcu-wkxc-lqz0-C-m ang-bosw (OSTEO BI-FLEX TRIPLE STRENGTH) 750 mg-644 [...] at bedtim (more content not included)... Normal [facility] Potassium measurement (mass/ volume)Ordered By: Chey Kumar on 02-09-2025 Potassium (Unsp spec) [Mass/Vol] 4.1 mmol/L 3.3-5.1 [facility] CNPNon 02-08-2025 [place] Telephone (UROLWS) TENA CANNON ([id number]) 1940 F Date Time Provider Department 02/08/25 NARCISO SHERMAN During your visit today, we recorded the following information about you: Yandy Cruz LPN 02/08/2025 8:37 AM Signed Called [facility] to obtain fax number. Spoke with LOBO Burk on [facility] [place] (Transition of Care). Fax number [...] LPN - Fully Assessed Reason for Visit: [place]orter - Other [[id number]] Prescriptions as of 02/08/2025 - dextran 70-hypromellose (ARTIFICIAL TEARS,[id number],) 0.1-0.3 % ophthalmic solution Use 1 drop in both eyes two times a day. - lidocaine (ASPERFLEX, LIDOCAINE,) 4 % patch Apply 1 application as directed once daily. Apply to lower back, on for twelve hours, off for twelve hours. - hjqrysje-jdab-llq1-C-m ang-bosw (OSTEO BI-FLEX TRIPLE STRENGTH) 750 mg-644 [...] TEARS OPHTHALMIC) Use in eyes. - rutin/hesp/bioflav/C/h [id number] (BIOFLEX ORAL) Take 1 capsule by mouth [...] 02/08/2025 Not (more content not included)... Normal [facility] Absolute lymphocyte countOrd ered By: Chey Kumar on 02-07-2025 Lymphocytes Auto (Unsp spec) [#/Vol] 1.60 10*3/uL 0.83-4.51 [facility] Absolute neutrophil countOrd ered By: Chey Kumar on 02-07-2025 Neutrophils (Bld) [#/Vol] 1.7 10*3/uL Low 2.0-7.7 [facility] Anion gap in Serum or Plasma Ordered By: Chey Kumar on 02-07-2025 Anion gap [Moles/Vol] 11 mmol/L 5-15 [facility] Automated lymphocyte count a s percentage of total leukocytesOrdered By: Chey Kumar on 02-07-2025 Lymphocytes/100 WBC Auto (Unsp spec) 40.6 % 19- [facility] BUN/creatinine ratioOrdered By: Melindashayoli Kumar on 02-07-2025 Urea nitrogen/Creatinine [Mass ratio] 46.6 mg/mg High 10-20 [facility] Bacteria Ur Culton Bacteria identified Cx [...] , Intermediate >32 , Resistant >64 Abnormal [facility] Comment on above: Performed By: #### 6 30-4 ####[facility] LABCLIA [id number] [place] [address] [place] Basophil percentageOrdered B y: Chey Kumar on 02-07-2025 Basophils/100 WBC (Bld) 0.8 % 0-1 [facility] CNOVon 02-07-2025 CNOV Office Visit (UROLWS ) POPETENA Terry ([id number]) 1940 F Date Time Provider Department 02/07/25 11:00 AM NARCISO SHERMAN UROLTOM During your visit today, we recorded the following information about you: Temperature Pulse Respiration Blood pressure 97.1 degrees 102/minute 14/minute 110/72 Narciso Sherman PA-C 02/07/2025 11:35 AM Signed [facility] NEW PATIENT CLINIC NOTE (F) Note was generated by [employer] and edited as appropriate SERVICE DATE: [...] 0.96 mg/dL Final MEDICATIONS: dextran 70-hypromellose (ARTIFICIAL TEARS,[id number],) 0.1-0.3 % ophthalmic solution Use 1 drop in both eyes two times a day. lidocaine (ASPERFLEX, LIDOCAINE,) 4 % patch Apply 1 application as directed once daily. Apply to lower back, on for twelve hours, off for twelve hours. kpcxljnd-myhg-mpk5-C-m ang-bosw (OSTEO BI-FLEX TRIPLE STRENGTH) 750 mg-644 [...] MEAL b (more content not included)... Normal [facility] Carbon dioxide, total [Moles /volume] in Central venous bloodOrdered By: Chey Kumar on 02-07-2025 CO2 [Moles/Vol] 26.7 mmol/L 21.0-32.0 [facility] Chloride assayOrdered By: Walt Kumar on 02-07-2025 Chloride [Moles/Vol] 101 mmol/L 98-108 [facility] Eosinophil percentageOrdered By: Chey Kumar on 02-07-2025 Eosinophils/100 WBC (Bld) 3.0 % 0-5 [facility] Erythrocyte distribution wid th ratioOrdered By: Chey Kumar on 02-07-2025 Erythrocyte distribution width (RBC) [Ratio] 14.1 % 11.6-14.6 [facility] Erythrocyte distribution wid th standard deviationOrdered By: garfield Kumar on 02-07-2025 Erythrocyte distribution width (RBC) [Ratio] 47.3 fl High 35.1-43.9 [facility] Glomerular filtration rate ( GFR) estimation/1.73 sq m using serum, plasma, or whole bOrdered By: Chey Kumar on 02-07-2025 GFR/1.73 sq M.predicted among non-blacks MDRD (S/P/Bld) [Vol rate/Area] 111 mL/min/{1.73_m2} >60 [facility] Comment on above: mL/min/1.73m2 CKD-EP I Creatinine Equation (2020) Hematocrit Auto (Bld) [Volum e fraction]Ordered By: Chey Kumar on 02-07-2025 Hematocrit (Bld) [Volume fraction] 30.8 % Low 37-47 [facility] Hemoglobin measurementOrdere d By: Chey Kumar on 02-07-2025 Hemoglobin (Bld) [Mass/Vol] 10.4 g/dL Low 12.0-15.0 [facility] Immature granulocytes/100 WB C Auto (Bld)Ordered By: Chey Kumar on 02-07-2025 Immature granulocytes/100 WBC (Bld) 0.300 % 0.0-0.9 [facility] Comment on above: IG% - Immature Granu locytes (promyelocytes, myelocytes and metamyelocytes) > 1% indicates that a LEFT SHIFT is Present. MCV (mean corpuscular volume ) determinationOrdered By: Chey Kumar on 02-07-2025 MCV (RBC) [Entitic vol] 91.9 fL 81-99 [facility] Mean corpuscular hemoglobin (MCH) determinationOrdered By: Chey Kumar on 02-07-2025 MCH (RBC) [Entitic mass] 31.0 pg 27.0-32.0 [facility] Mean corpuscular hemoglobin concentration (MCHC) determinationOrdered By: Chey Kumar on 02-07-2025 MCHC (RBC) [Mass/Vol] 33.8 g/dL 32-36 [facility] Mean platelet volume determi nationOrdered By: Chey Kumar on 02-07-2025 Platelet mean volume (Bld) [Entitic vol] 10.4 fL 6.2-12.0 [facility] Monocyte percentageOrdered B y: Chey Kumar on 02-07-2025 Monocytes/100 WBC (Bld) 13.2 % High 0-10 [facility] Neutrophil percentageOrdered By: Chey Kumar on 02-07-2025 Neutrophils/100 WBC (Bld) 42.1 % Low 47-70 [facility] Nucleated red blood cell per centageOrdered By: Chey Kumar on 02-07-2025 Nucleated RBC/100 WBC (Bld) [Ratio] 0 % 0-5 [facility] Platelet countOrdered By: Walt Kumar on 02-07-2025 Platelets (Bld) [#/Vol] 289 10*3/uL 150-450 [facility] Potassium measurement (mass/ volume)Ordered By: Chey Kumar on 02-07-2025 Potassium (Unsp spec) [Mass/Vol] 3.1 mmol/L Low 3.3-5.1 [facility] RBC Auto (Bld) [#/Vol]Ordere d By: Chey Kumar on 02-07-2025 RBC (Bld) [#/Vol] 3.35 10*6/uL Low 4.2-5.4 [facility] Serum creatinine measurement (mass/volume)Ordered By: Chey Kumar on 02-07-2025 Creatinine [Mass/Vol] 0.22 mg/dL Low 0.70-1.20 [facility] Serum glucose measurement (m ass/volume)Ordered By: Chey Kumar on 02-07-2025 Glucose [Mass/Vol] 92 mg/dL 70-99 [facility] Serum or plasma calcium ori urement (mass/volume)Ordered By: Chey Kumar on 02-07-2025 Calcium [Mass/Vol] 9.5 mg/dL 7.6-11.0 [facility] Serum or plasma urea nitroge n measurement (mass/volume)Ordered By: Chey Kumar on 02-07-2025 Urea nitrogen [Mass/Vol] 10 mg/dL 4-19 [facility] Sodium levelOrdered By: Melinda brittany Stacy on 02-07-2025 Sodium [Moles/Vol] 139 mmol/L 133-145 [facility] UA DIP, URINE (POC)on 2024 BILIRUBIN UA (POCT) Small Abnormal Negative [facility] CLARITY UA (POCT) Cloudy [facility] COLOR UA (POCT) Dark yellow [facility] GLUCOSE UA (POCT) Negative Negative mg/dL [facility] Hemoglobin Ql (U) Small Abnormal Negative [facility] Interpretation and review of laboratory results Abnormal [facility] KETONE UA (POCT) 40 mg/dL Abnormal [facility] LEUKOCYTES UA (POCT) Large Abnormal Negative [facility] NITRITE UA (POCT) Negative Negative [facility] PH UA (POCT) 5.5 4.5 - 8.[address] [facility] Protein Ql (U) 30 mg/dL Abnormal Negative [facility] SPECIFIC GRAVITY UA (POCT) 1.025 1.005 - 1.[address] [facility] UROBILINOGEN UA (POCT) 0.2 Radha l E.U./dL [facility] Location:[facility], [address], [place], [place], [id number] [place] [address] POINT OF CARE [facility] White blood cell (WBC) count Ordered By: Chey Kumar on 02-07-2025 WBC (Bld) [#/Vol] 3.9 10*3/uL Low 4.4-11.0 [facility] Absolute lymphocyte countOrd ered By: Chey Kumar on 01-31-2025 Lymphocytes Auto (Unsp spec) [#/Vol] 1.76 10*3/uL 0.83-4.51 [facility] Absolute neutrophil countOrd ered By: Chey Kumar on 01-31-2025 Neutrophils (Bld) [#/Vol] 2.1 10*3/uL 2.0-7.7 [facility] Anion gap in Serum or Plasma Ordered By: Chey Kumar on 01-31-2025 Anion gap [Moles/Vol] 9 mmol/L 5-15 [facility] Automated lymphocyte count a s percentage of total leukocytesOrdered By: Chey Kumar on 01-31-2025 Lymphocytes/100 WBC Auto (Unsp spec) 39.6 % 19-41 [facility] [facility] BUN/creatinine ratioOrdered By: Chey Kumar on 01-31-2025 Urea nitrogen/Creatinine [Mass ratio] 69.3 mg/mg High 10-20 [facility] Basophil percentageOrdered B y: Chey Kumar on 01-31-2025 Basophils/100 WBC (Bld) 0.4 % 0-1 [facility] Carbon dioxide, total [Moles /volume] in Central venous bloodOrdered By: Chey Kumar on 01-31-2025 CO2 [Moles/Vol] 26.9 mmol/L 21.0-32.0 [facility] Chloride assayOrdered By: Walt Kumar on 01-31-2025 Chloride [Moles/Vol] 101 mmol/L 98-108 [facility] Eosinophil percentageOrdered By: Chey Kumar on 01-31-2025 Eosinophils/100 WBC (Bld) 1.8 % 0-5 [facility] Erythrocyte distribution wid th ratioOrdered By: Chey Kumar on 01-31-2025 Erythrocyte distribution width (RBC) [Ratio] 14.3 % 11.6-14.6 [facility] Erythrocyte distribution wid th standard deviationOrdered By: Chey Kumar on 01-31-2025 Erythrocyte distribution width (RBC) [Ratio] 48.9 fl High 35.1-43.9 [facility] Glomerular filtration rate ( GFR) estimation/1.73 sq m using serum, plasma, or whole bOrdered By: Chey Kumar on 01-31-2025 GFR/1.73 sq M.predicted among non-blacks MDRD (S/P/Bld) [Vol rate/Area] 110 mL/min/{1.73_m2} >60 [facility] Comment on above: mL/min/1.73m2 CKD-EP I Creatinine Equation (2020) Hematocrit Auto (Bld) [Volum e fraction]Ordered By: Chey Kumar on 01-31-2025 Hematocrit (Bld) [Volume fraction] 32.6 % Low 37-47 [facility] Hemoglobin measurementOrdere d By: Chey Kumar on 01-31-2025 Hemoglobin (Bld) [Mass/Vol] 10.8 g/dL Low 12.0-15.0 [facility] Immature granulocytes/100 WB C Auto (Bld)Ordered By: Chey Kumar on 01-31-2025 Immature granulocytes/100 WBC (Bld) 0.200 % 0.0-0.9 [facility] Comment on above: IG% - Immature Granu locytes (promyelocytes, myelocytes and metamyelocytes) > 1% indicates that a LEFT SHIFT is Present. MCV (mean corpuscular volume ) determinationOrdered By: Chey Kumar on 01-31-2025 MCV (RBC) [Entitic vol] 93.9 fL 81-99 [facility] Mean corpuscular hemoglobin (MCH) determinationOrdered By: Chey Kumar 01-31-2025 MCH (RBC) [Entitic mass] 31.1 pg 27.0-32.0 [facility] Mean corpuscular hemoglobin concentration (MCHC) determinationOrdered By: Chey Kumar 01-31-2025 MCHC (RBC) [Mass/Vol] 33.1 g/dL 32-36 [facility] Mean platelet volume determi nationOrdered By: Chey Kumar on 01-31-2025 Platelet mean volume (Bld) [Entitic vol] 11.2 fL 6.2-12.0 [facility] Monocyte percentageOrdered B y: Chey Kumar on 01-31-2025 Monocytes/100 WBC (Bld) 10.6 % High 0-10 [facility] Neutrophil percentageOrdered By: Chey Kumar on 01-31-2025 Neutrophils/100 WBC (Bld) 47.4 % 47-70 [facility] Nucleated red blood cell per centageOrdered By: Chey Kumar on 01-31-2025 Nucleated RBC/100 WBC (Bld) [Ratio] 0 % 0-5 [facility] Platelet countOrdered By: Walt Kumar on 01-31-2025 Platelets (Bld) [#/Vol] 167 10*3/uL 150-450 [facility] Potassium measurement (mass/ volume)Ordered By: Chey Kumar on 01-31-2025 Potassium (Unsp spec) [Mass/Vol] 3.8 mmol/L 3.3-5.1 [facility] RBC Auto (Bld) [#/Vol]Ordere d By: Chey Kumar on 01-31-2025 RBC (Bld) [#/Vol] 3.47 10*6/uL Low 4.2-5.4 [facility] Serum creatinine measurement (mass/volume)Ordered By: Chey Kumar on 01-31-2025 Creatinine [Mass/Vol] 0.23 mg/dL Low 0.70-1.20 [facility] Serum glucose measurement (m ass/volume)Ordered By: Chey Kumar on 01-31-2025 Glucose [Mass/Vol] 98 mg/dL 70-99 [facility] Serum or plasma calcium ori urement (mass/volume)Ordered By: Chey Kumar on 01-31-2025 Calcium [Mass/Vol] 9.6 mg/dL 7.6-11.0 [facility] Serum or plasma urea nitroge n measurement (mass/volume)Ordered By: Chey Kumar on 01-31-2025 Urea nitrogen [Mass/Vol] 16 mg/dL 4-19 [facility] Sodium levelOrdered By: Melinda soto Manigriseldaella on 01-31-2025 Sodium [Moles/Vol] 136 mmol/L 133-145 [facility] White blood cell (WBC) count Ordered By: Chey Singletongriseldaella on 01-31-2025 WBC (Bld) [#/Vol] 4.5 10*3/uL 4.4-11.0 [facility] Absolute lymphocyte countOrd ered By: Chey Kumar on 01-24-2025 Lymphocytes Auto (Unsp spec) [#/Vol] 1.68 10*3/uL 0.83-4.51 [facility] Absolute neutrophil countOrd ered By: Chey Singletongriseldaella on 01-24-2025 Neutrophils (Bld) [#/Vol] 3.1 10*3/uL 2.0-7.7 [facility] Anion gap in Serum or Plasma Ordered By: Chey Kumar on 01-24-2025 Anion gap [Moles/Vol] 11 mmol/L 5-15 [facility] Automated lymphocyte count a s percentage of total leukocytesOrdered By: Chey Kumar on 01-24-2025 Lymphocytes/100 WBC Auto (Unsp spec) 30.5 % 19-41 [facility] BUN/creatinine ratioOrdered By: Chey Singletongriseldaella on 01-24-2025 Urea nitrogen/Creatinine [Mass ratio] 56.5 mg/mg High 10-20 [facility] Basophil percentageOrdered B y: Melindashayoli Singletongriseldaella on 01-24-2025 Basophils/100 WBC (Bld) 0.7 % 0-1 [facility] Carbon dioxide, total [Moles /volume] in Central venous bloodOrdered By: Chey Kumar on 01-24-2025 CO2 [Moles/Vol] 26.2 mmol/L 21.0-32.0 [facility] Chloride assayOrdered By: Walt carmenbrittany Kumar on 01-24-2025 Chloride [Moles/Vol] 100 mmol/L 98-108 [facility] Eosinophil percentageOrdered By: Chey Kumar on 01-24-2025 Eosinophils/100 WBC (Bld) 1.5 % 0-5 [facility] Erythrocyte distribution wid th ratioOrdered By: Chey Kumar on 01-24-2025 Erythrocyte distribution width (RBC) [Ratio] 14.2 % 11.6-14.6 [facility] Erythrocyte distribution wid th standard deviationOrdered By: Chey Kumar on 01-24-2025 Erythrocyte distribution width (RBC) [Ratio] 47.5 fl High 35.1-43.9 [facility] Glomerular filtration rate ( GFR) estimation/1.73 sq m using serum, plasma, or whole bOrdered By: Chey Kumar on 01-24-2025 GFR/1.73 sq M.predicted among non-blacks MDRD (S/P/Bld) [Vol rate/Area] 102 mL/min/{1.73_m2} >60 [facility] Comment on above: mL/min/1.73m2 CKD-EP I Creatinine Equation (2020) Hematocrit Auto (Bld) [Volum e fraction]Ordered By: Chey Kumar on 01-24-2025 Hematocrit (Bld) [Volume fraction] 36.1 % Low 37-47 [facility] Hemoglobin measurementOrdere d By: Chey Kumar on 01-24-2025 Hemoglobin (Bld) [Mass/Vol] 12.0 g/dL 12.0-15.0 [facility] Immature granulocytes/100 WB C Auto (Bld)Ordered By: Chey Kumar on 01-24-2025 Immature granulocytes/100 WBC (Bld) 0.500 % 0.0-0.9 [facility] Comment on above: IG% - Immature Granu locytes (promyelocytes, myelocytes and metamyelocytes) > 1% indicates that a LEFT SHIFT is Present. MCV (mean corpuscular volume ) determinationOrdered By: Chey Kumar on 01-24-2025 MCV (RBC) [Entitic vol] 92.1 fL 81-99 [facility] Mean corpuscular hemoglobin (MCH) determinationOrdered By: Chey Kumar on 01-24-2025 MCH (RBC) [Entitic mass] 30.6 pg 27.0-32.0 [facility] Mean corpuscular hemoglobin concentration (MCHC) determinationOrdered By: Chey Kumar on 01-24-2025 MCHC (RBC) [Mass/Vol] 33.2 g/dL 32-36 [facility] Mean platelet volume determi nationOrdered By: Chey Kumar on 01-24-2025 Platelet mean volume (Bld) [Entitic vol] 11.0 fL 6.2-12.0 [facility] Monocyte percentageOrdered B y: Chey Kumar on 01-24-2025 Monocytes/100 WBC (Bld) 10.3 % High 0-10 [facility] Neutrophil percentageOrdered By: Chey Kumar on 01-24-2025 Neutrophils/100 WBC (Bld) 56.5 % 47-70 [facility] Nucleated red blood cell per centageOrdered By: Chey Kumar on 01-24-2025 Nucleated RBC/100 WBC (Bld) [Ratio] 0 % 0-5 [facility] Platelet countOrdered By: Walt Kumar on 01-24-2025 Platelets (Bld) [#/Vol] 177 10*3/uL 150-450 [facility] Potassium measurement (mass/ volume)Ordered By: Chey Kumar on 01-24-2025 Potassium (Unsp spec) [Mass/Vol] 3.5 mmol/L 3.3-5.1 [facility] RBC Auto (Bld) [#/Vol]Ordere d By: Chey Kumar on 01-24-2025 RBC (Bld) [#/Vol] 3.92 10*6/uL Low 4.2-5.4 [facility] Serum creatinine measurement (mass/volume)Ordered By: Chey Kumar on 01-24-2025 Creatinine [Mass/Vol] 0.31 mg/dL Low 0.70-1.20 [facility] Serum glucose measurement (m ass/volume)Ordered By: Chey Kumar on 01-24-2025 Glucose [Mass/Vol] 97 mg/dL 70-99 [facility] Serum or plasma calcium ori urement (mass/volume)Ordered By: Chey Manigriseldaella on 01-24-2025 Calcium [Mass/Vol] 9.5 mg/dL 7.6-11.0 [facility] Serum or plasma urea nitroge n measurement (mass/volume)Ordered By: Waltcarmenshayoli Singletongriseldaella on 01-24-2025 Urea nitrogen [Mass/Vol] 18 mg/dL 4-19 [facility] Sodium levelOrdered By: Melinda soto Manigriseldaella on 01-24-2025 Sodium [Moles/Vol] 136 mmol/L 133-145 [facility] White blood cell (WBC) count Ordered By: Waltcarmenshayoli Singletongriseldaella on 01-24-2025 WBC (Bld) [#/Vol] 5.5 10*3/uL 4.4-11.0 [facility] Absolute lymphocyte countOrd ered By: Waltcarmenshayoli Singletongriseldaella on 01-17-2025 Lymphocytes Auto (Unsp spec) [#/Vol] 1.51 10*3/uL 0.83-4.51 [facility] Absolute neutrophil countOrd ered By: Waltcarmenbrittany Kumar on 01-17-2025 Neutrophils (Bld) [#/Vol] 3.1 10*3/uL 2.0-7.7 [facility] Anion gap in Serum or Plasma Ordered By: Waltcarmenshayoli Singletongriseldaella on 01-17-2025 Anion gap [Moles/Vol] 9 mmol/L 5-15 [facility] Automated lymphocyte count a s percentage of total leukocytesOrdered By: Waltgarfield Singletongriseldaella on 01-17-2025 Lymphocytes/100 WBC Auto (Unsp spec) 28.1 % 19-41 [facility] BUN/creatinine ratioOrdered By: Waltcarmenshayoli Singletongriseldaella on 01-17-2025 Urea nitrogen/Creatinine [Mass ratio] 72.0 mg/mg High 10-20 [facility] Basophil percentageOrdered B y: Filibertoyoli Singletongriseldaella on 01-17-2025 Basophils/100 WBC (Bld) 0.4 % 0-1 [facility] Carbon dioxide, total [Moles /volume] in Central venous bloodOrdered By: Chey Kumar on 01-17-2025 CO2 [Moles/Vol] 27.5 mmol/L 21.0-32.0 [facility] Chloride assayOrdered By: Walt Kumar on 01-17-2025 Chloride [Moles/Vol] 101 mmol/L 98-108 [facility] Eosinophil percentageOrdered By: Chey Kumar on 01-17-2025 Eosinophils/100 WBC (Bld) 1.1 % 0-5 [facility] Erythrocyte distribution wid th ratioOrdered By: Chey Kumar on 01-17-2025 Erythrocyte distribution width (RBC) [Ratio] 13.7 % 11.6-14.6 [facility] Erythrocyte distribution wid th standard deviationOrdered By: Chey Kumar on 01-17-2025 Erythrocyte distribution width (RBC) [Ratio] 44.9 fl High 35.1-43.9 [facility] Glomerular filtration rate ( GFR) estimation/1.73 sq m using serum, plasma, or whole bOrdered By: Chey Kumar on 01-17-2025 GFR/1.73 sq M.predicted among non-blacks MDRD (S/P/Bld) [Vol rate/Area] 104 mL/min/{1.73_m2} >60 [facility] Comment on above: mL/min/1.73m2 CKD-EP I Creatinine Equation (2020) Hematocrit Auto (Bld) [Volum e fraction]Ordered By: Chey Kumar on 01-17-2025 Hematocrit (Bld) [Volume fraction] 34.5 % Low 37-47 [facility] Hemoglobin measurementOrdere d By: Chey Kumar on 01-17-2025 Hemoglobin (Bld) [Mass/Vol] 11.8 g/dL Low 12.0-15.0 [facility] Immature granulocytes/100 WB C Auto (Bld)Ordered By: Chey Kumar on 01-17-2025 Immature granulocytes/100 WBC (Bld) 1.300 % High 0.0-0.9 [facility] Comment on above: IG% - Immature Granu locytes (promyelocytes, myelocytes and metamyelocytes) > 1% indicates that a LEFT SHIFT is Present. MCV (mean corpuscular volume ) determinationOrdered By: Chey Kumar on 01-17-2025 MCV (RBC) [Entitic vol] 90.8 fL 81-99 [facility] Mean corpuscular hemoglobin (MCH) determinationOrdered By: Chey Kumar on 01-17-2025 MCH (RBC) [Entitic mass] 31.1 pg 27.0-32.0 [facility] Mean corpuscular hemoglobin concentration (MCHC) determinationOrdered By: Chey Kumar on 01-17-2025 MCHC (RBC) [Mass/Vol] 34.2 g/dL 32-36 [facility] Mean platelet volume determi nationOrdered By: Chey Kumar on 01-17-2025 Platelet mean volume (Bld) [Entitic vol] 10.1 fL 6.2-12.0 [facility] Monocyte percentageOrdered B y: Chey Kumar on 01-17-2025 Monocytes/100 WBC (Bld) 12.3 % High 0-10 [facility] Neutrophil percentageOrdered By: carmenpleasant plainsyoli Kumar on 01-17-2025 Neutrophils/100 WBC (Bld) 56.8 % 47-70 [facility] Nucleated red blood cell per centageOrdered By: Chey Kumar on 01-17-2025 Nucleated RBC/100 WBC (Bld) [Ratio] 0 % 0-5 [facility] Platelet countOrdered By: Walt carmenbrittany Kumar on 01-17-2025 Platelets (Bld) [#/Vol] 273 10*3/uL 150-450 [facility] Potassium measurement (mass/ volume)Ordered By: Chey Kumar on 01-17-2025 Potassium (Unsp spec) [Mass/Vol] 3.5 mmol/L 3.3-5.1 [facility] RBC Auto (Bld) [#/Vol]Ordere d By: Chey Kumar on 01-17-2025 RBC (Bld) [#/Vol] 3.80 10*6/uL Low 4.2-5.4 [facility] Serum creatinine measurement (mass/volume)Ordered By: Waltgarfield Kumar on 01-17-2025 Creatinine [Mass/Vol] 0.30 mg/dL Low 0.70-1.20 [facility] Serum glucose measurement (m ass/volume)Ordered By: Chey Singletongriseldaella on 01-17-2025 Glucose [Mass/Vol] 77 mg/dL 70-99 [facility] Serum or plasma calcium ori urement (mass/volume)Ordered By: Chey Singletongriseldaella on 01-17-2025 Calcium [Mass/Vol] 9.4 mg/dL 7.6-11.0 [facility] Serum or plasma urea nitroge n measurement (mass/volume)Ordered By: Chey Singletongriseldaella on 01-17-2025 Urea nitrogen [Mass/Vol] 21 mg/dL High 4-19 [facility] Sodium levelOrdered By: Melinda soto Stacy on 01-17-2025 Sodium [Moles/Vol] 137 mmol/L 133-145 [facility] White blood cell (WBC) count Ordered By: Chey Singletongriseldaella on 01-17-2025 WBC (Bld) [#/Vol] 5.4 10*3/uL 4.4-11.0 [facility] Absolute lymphocyte countOrd ered By: Chey Kumar on 01-10-2025 Lymphocytes Auto (Unsp spec) [#/Vol] 1.00 10*3/uL 0.83-4.51 [facility] Absolute neutrophil countOrd ered By: Chey Singletongriseldaella on 01-10-2025 Neutrophils (Bld) [#/Vol] 3.8 10*3/uL 2.0-7.7 [facility] Anion gap in Serum or Plasma Ordered By: Filibertoyoli Singletongriseldaella on 01-10-2025 Anion gap [Moles/Vol] 11 mmol/L 5-15 [facility] Automated lymphocyte count a s percentage of total leukocytesOrdered By: Chey Kumar on 01-10-2025 Lymphocytes/100 WBC Auto (Unsp spec) 17.7 % Low 19-41 [facility] BUN/creatinine ratioOrdered By: Chey Kumar on 01-10-2025 Urea nitrogen/Creatinine [Mass ratio] 61.3 mg/mg High 10-20 [facility] Basophil percentageOrdered B y: Melindabrittany Maniaubrey on 01-10-2025 Basophils/100 WBC (Bld) 0.4 % 0-1 [facility] Bilirubin Test strip Ql (U)O rdered By: Melindashayoli Singletongriseldaella on 01-10-2025 Bilirubin Ql (U) Negative Negative [facility] Carbon dioxide, total [Moles /volume] in Central venous bloodOrdered By: Chey Singletongriseldaella on 01-10-2025 CO2 [Moles/Vol] 25.8 mmol/L 21.0-32.0 [facility] Chloride assayOrdered By: Walt carmenbrittany Kumar on 01-10-2025 Chloride [Moles/Vol] 97 mmol/L Low 98-108 [facility] Eosinophil percentageOrdered By: Waltcarmnebrittany Manigriseldaella on 01-10-2025 Eosinophils/100 WBC (Bld) 1.9 % 0-5 [facility] Erythrocyte distribution wid th ratioOrdered By: carmenpleasant plainsyoli Manigriseldaella on 01-10-2025 Erythrocyte distribution width (RBC) [Ratio] 13.6 % 11.6-14.6 [facility] Erythrocyte distribution wid th standard deviationOrdered By: carmenpleasant plainsyoli Singletongriseldaella on 01-10-2025 Erythrocyte distribution width (RBC) [Ratio] 44.9 fl High 35.1-43.9 [facility] Glomerular filtration rate ( GFR) estimation/1.73 sq m using serum, plasma, or whole bOrdered By: Chey Kumar on 01-10-2025 GFR/1.73 sq M.predicted among non-blacks MDRD (S/P/Bld) [Vol rate/Area] 106 mL/min/{1.73_m2} >60 [facility] Comment on above: mL/min/1.73m2 CKD-EP I Creatinine Equation (2020) Hematocrit Auto (Bld) [Volum e fraction]Ordered By: Chey Kumar on 01-10-2025 Hematocrit (Bld) [Volume fraction] 31.1 % Low 37-47 [facility] Hemoglobin measurementOrdere d By: Chey Kumar on 01-10-2025 Hemoglobin (Bld) [Mass/Vol] 10.7 g/dL Low 12.0-15.0 [facility] Immature granulocytes/100 WB C Auto (Bld)Ordered By: Chey Kumar on 01-10-2025 Immature granulocytes/100 WBC (Bld) 0.700 % 0.0-0.9 [facility] Comment on above: IG% - Immature Granu locytes (promyelocytes, myelocytes and metamyelocytes) > 1% indicates that a LEFT SHIFT is Present. Ketones Test strip Ql (U)Ord ered By: Chey Kumar on 01-10-2025 Ketones Ql (U) 5 mg/dl High Negative [facility] MCV (mean corpuscular volume ) determinationOrdered By: Chey Kumar on 01-10-2025 MCV (RBC) [Entitic vol] 91.2 fL 81-99 [facility] Mean corpuscular hemoglobin (MCH) determinationOrdered By: carmenpleasant plainsyoli Kumar on 01-10-2025 MCH (RBC) [Entitic mass] 31.4 pg 27.0-32.0 [facility] Mean corpuscular hemoglobin concentration (MCHC) determinationOrdered By: Chey Kumar on 01-10-2025 MCHC (RBC) [Mass/Vol] 34.4 g/dL 32-36 [facility] Mean platelet volume determi nationOrdered By: Chey Kumar on 01-10-2025 Platelet mean volume (Bld) [Entitic vol] 10.3 fL 6.2-12.0 [facility] Monocyte percentageOrdered B y: Chey Kumar on 01-10-2025 Monocytes/100 WBC (Bld) 12.4 % High 0-10 [facility] Neutrophil percentageOrdered By: Chey Kumar on 01-10-2025 Neutrophils/100 WBC (Bld) 66.9 % 47-70 [facility] Nitrite Test strip Ql (U)Ord ered By: Chey Kumar on 01-10-2025 Nitrite Ql (U) Negative Negative [facility] Nucleated red blood cell per centageOrdered By: Chey Kumar on 01-10-2025 Nucleated RBC/100 WBC (Bld) [Ratio] 0 % 0-5 [facility] Platelet countOrdered By: Walt Kumar on 01-10-2025 Platelets (Bld) [#/Vol] 327 10*3/uL 150-450 [facility] Potassium measurement (mass/ volume)Ordered By: Chey Kumar on 01-10-2025 Potassium (Unsp spec) [Mass/Vol] 3.9 mmol/L 3.3-5.1 [facility] Protein Test strip Ql (U)Ord ered By: Chey Kumar on 01-10-2025 Protein Ql (U) 30 mg/dl High Negative [facility] RBC Auto (Bld) [#/Vol]Ordere d By: Chey Kumar on 01-10-2025 RBC (Bld) [#/Vol] 3.41 10*6/uL Low 4.2-5.4 [facility] Serum creatinine measurement (mass/volume)Ordered By: Chey Kumar on 01-10-2025 Creatinine [Mass/Vol] 0.27 mg/dL Low 0.70-1.20 [facility] Serum glucose measurement (m ass/volume)Ordered By: Chey Kumar on 01-10-2025 Glucose [Mass/Vol] 94 mg/dL 70-99 [facility] Serum or plasma calcium ori urement (mass/volume)Ordered By: Chey Kumar on 01-10-2025 Calcium [Mass/Vol] 9.4 mg/dL 7.6-11.0 [facility] Serum or plasma urea nitroge n measurement (mass/volume)Ordered By: Chey Kumar on 01-10-2025 Urea nitrogen [Mass/Vol] 17 mg/dL 4-19 [facility] Serum or plasma uric acid me asurement (mass/volume)Ordered By: Chey Kumar on 01-10-2025 Urate [Mass/Vol] 2.5 mg/dL Low 2.6-6.0 [facility] Comment on above: The drugs N-Acetylcy steine and Metamizole may falsely depress this assay. Sodium levelOrdered By: Melinda Kumar on 01-10-2025 Sodium [Moles/Vol] 133 mmol/L 133-145 [facility] Urine clarityOrdered By: Gary Kumar on 01-10-2025 Clarity (U) Sl. Cloudy Clear [facility] Urine color determinationOrd ered By: Chey Kumar on 01-10-2025 Color (U) Yellow Yellow [facility] Urine glucose detectionOrder ed By: Chey Kumar on 01-10-2025 Glucose Ql (U) Normal mg/dl Normal [facility] Urine leukocyte esterase det ection by dipstickOrdered By: Chey Kumar on 01-10-2025 Leukocyte esterase Test strip Ql (U) 500 /ul High Negative [facility] Urine pHOrdered By: Kadie Kumar on 01-10-2025 pH (U) 6.0 [pH] 5.0 - 8.0 [facility] Urine specific gravity measu rementOrdered By: Chey Kumar on 01-10-2025 Specific gravity (U) [Rel density] 1.015 1.002-1.030 [facility] Urine urobilinogen measureme ntOrdered By: Chey Kumar on 01-10-2025 Urobilinogen Ql (U) 1 mg/dl High Normal [facility] White blood cell (WBC) count Ordered By: Chey Kumar on 01-10-2025 WBC (Bld) [#/Vol] 5.7 10*3/uL 4.4-11.0 [facility] Absolute lymphocyte countOrd ered By: Chey Kumar on 01-03-2025 Lymphocytes Auto (Unsp spec) [#/Vol] 1.03 10*3/uL 0.83-4.51 [facility] Absolute neutrophil countOrd ered By: Chey Kumar on 01-03-2025 Neutrophils (Bld) [#/Vol] 2.4 10*3/uL 2.0-7.7 [facility] Anion gap in Serum or Plasma Ordered By: Chey Kumar on 01-03-2025 Anion gap [Moles/Vol] 11 mmol/L 5-15 [facility] Automated lymphocyte count a s percentage of total leukocytesOrdered By: Chey Kumar on 01-03-2025 Lymphocytes/100 WBC Auto (Unsp spec) 24.9 % 19-41 [facility] BUN/creatinine ratioOrdered By: Chey Kumar on 01-03-2025 Urea nitrogen/Creatinine [Mass ratio] 73.7 mg/mg High 10-20 [facility] Basophil percentageOrdered B y: Chey Kumar on 01-03-2025 Basophils/100 WBC (Bld) 0.5 % 0-1 [facility] Carbon dioxide, total [Moles /volume] in Central venous bloodOrdered By: Chey Kumar on 01-03-2025 CO2 [Moles/Vol] 25.6 mmol/L 21.0-32.0 [facility] Chloride assayOrdered By: Walt Kumar on 01-03-2025 Chloride [Moles/Vol] 99 mmol/L 98-108 [facility] Eosinophil percentageOrdered By: Chey Kumar on 01-03-2025 Eosinophils/100 WBC (Bld) 2.2 % 0-5 [facility] Erythrocyte distribution wid th ratioOrdered By: garfield Kumar on 01-03-2025 Erythrocyte distribution width (RBC) [Ratio] 13.2 % 11.6-14.6 [facility] Erythrocyte distribution wid th standard deviationOrdered By: Chey Kumar on 01-03-2025 Erythrocyte distribution width (RBC) [Ratio] 42.9 fl 35.1-43.9 [facility] Glomerular filtration rate ( GFR) estimation/1.73 sq m using serum, plasma, or whole bOrdered By: Chey Kumar on 01-03-2025 GFR/1.73 sq M.predicted among non-blacks MDRD (S/P/Bld) [Vol rate/Area] 113 mL/min/{1.73_m2} >60 [facility] Comment on above: mL/min/1.73m2 CKD-EP I Creatinine Equation (2020) Hematocrit Auto (Bld) [Volum e fraction]Ordered By: Chey Kumar on 01-03-2025 Hematocrit (Bld) [Volume fraction] 32.1 % Low 37-47 [facility] Hemoglobin measurementOrdere d By: Chey Kumar on 01-03-2025 Hemoglobin (Bld) [Mass/Vol] 11.2 g/dL Low 12.0-15.0 [facility] Immature granulocytes/100 WB C Auto (Bld)Ordered By: Chey Kumar on 01-03-2025 Immature granulocytes/100 WBC (Bld) 0.200 % 0.0-0.9 [facility] Comment on above: IG% - Immature Granu locytes (promyelocytes, myelocytes and metamyelocytes) > 1% indicates that a LEFT SHIFT is Present. MCV (mean corpuscular volume ) determinationOrdered By: Chey Kumar on 01-03-2025 MCV (RBC) [Entitic vol] 91.2 fL 81-99 [facility] Mean corpuscular hemoglobin (MCH) determinationOrdered By: carmenpleasant plainsyoli Kumar on 01-03-2025 MCH (RBC) [Entitic mass] 31.8 pg 27.0-32.0 [facility] Mean corpuscular hemoglobin concentration (MCHC) determinationOrdered By: Chey Kumar on 01-03-2025 MCHC (RBC) [Mass/Vol] 34.9 g/dL 32-36 [facility] Mean platelet volume determi nationOrdered By: Chey Kumar on 01-03-2025 Platelet mean volume (Bld) [Entitic vol] 10.1 fL 6.2-12.0 [facility] Monocyte percentageOrdered B y: Chey Kumar on 01-03-2025 Monocytes/100 WBC (Bld) 13.8 % High 0-10 [facility] Neutrophil percentageOrdered By: Chey Kumar on 01-03-2025 Neutrophils/100 WBC (Bld) 58.4 % 47-70 [facility] Nucleated red blood cell per centageOrdered By: Chey Kumar on 01-03-2025 Nucleated RBC/100 WBC (Bld) [Ratio] 0 % 0-5 [facility] Platelet countOrdered By: Walt Kumar on 01-03-2025 Platelets (Bld) [#/Vol] 223 10*3/uL 150-450 [facility] Potassium measurement (mass/ volume)Ordered By: Chey Kumar on 01-03-2025 Potassium (Unsp spec) [Mass/Vol] 3.5 mmol/L 3.3-5.1 [facility] RBC Auto (Bld) [#/Vol]Ordere d By: Chey Kumar on 01-03-2025 RBC (Bld) [#/Vol] 3.52 10*6/uL Low 4.2-5.4 [facility] Serum creatinine measurement (mass/volume)Ordered By: Chey Kumar on 01-03-2025 Creatinine [Mass/Vol] 0.21 mg/dL Low 0.70-1.20 [facility] Serum glucose measurement (m ass/volume)Ordered By: Chey Kumar on 01-03-2025 Glucose [Mass/Vol] 95 mg/dL 70-99 [facility] Serum or plasma calcium ori urement (mass/volume)Ordered By: Chey Kumar on 01-03-2025 Calcium [Mass/Vol] 9.1 mg/dL 7.6-11.0 [facility] Serum or plasma urea nitroge n measurement (mass/volume)Ordered By: Chey Kumar on 01-03-2025 Urea nitrogen [Mass/Vol] 15 mg/dL 4-19 [facility] Sodium levelOrdered By: Melinda Kumar on 01-03-2025 Sodium [Moles/Vol] 135 mmol/L 133-145 [facility] White blood cell (WBC) count Ordered By: Chey Kumar on 01-03-2025 WBC (Bld) [#/Vol] 4.1 10*3/uL Low 4.4-11.0 [facility] Bilirubin Test strip Ql (U)O rdered By: Chey Kumar on 12-28-2024 Bilirubin Ql (U) Negative Negative [facility] Ketones Test strip Ql (U)Ord ered By: Chey Kumar on 12-28-2024 Ketones Ql (U) 5 mg/dl High Negative [facility] Nitrite Test strip Ql (U)Ord ered By: Chey Kumar on 12-28-2024 Nitrite Ql (U) Negative Negative [facility] Protein Test strip Ql (U)Ord ered By: Chey Kumar on 12-28-2024 Protein Ql (U) 100 mg/dl High Negative [facility] Urine clarityOrdered By: Gary Kumar on 12-28-2024 Clarity (U) Turbid Clear [facility] Urine color determinationOrd ered By: Chey uKmar on 12-28-2024 Color (U) Straw Yellow [facility] Urine cultureOrdered By: Gary Kumar on 12-28-2024 Bacteria identified Cx Nom (U) Pseudomonas aeruginosa Abnormal [facility] Urine glucose detectionOrder ed By: Chey Kumar on 12-28-2024 Glucose Ql (U) Normal mg/dl Normal [facility] Urine leukocyte esterase det ection by dipstickOrdered By: Chey Kumar on 12-28-2024 Leukocyte esterase Test strip Ql (U) 500 /ul High Negative [facility] Urine pHOrdered By: Kadie Kumar on 12-28-2024 pH (U) 6.5 [pH] 5.0 - 8.0 [facility] Urine specific gravity measu rementOrdered By: Chey Kumar on 12-28-2024 Specific gravity (U) [Rel density] 1.015 1.002-1.030 [facility] Urine urobilinogen measureme ntOrdered By: Chey Kumar on 12-28-2024 Urobilinogen Ql (U) Normal mg/dl Normal [facility] Absolute lymphocyte countOrd ered By: Chey Kumar on 12-27-2024 Lymphocytes Auto (Unsp spec) [#/Vol] 1.07 10*3/uL 0.83-4.51 [facility] Absolute neutrophil countOrd ered By: Chey Kumar on 12-27-2024 Neutrophils (Bld) [#/Vol] 4.9 10*3/uL 2.0-7.7 [facility] Anion gap in Serum or Plasma Ordered By: Chey Kumar on 12-27-2024 Anion gap [Moles/Vol] 9 mmol/L 5-15 [facility] Automated lymphocyte count a s percentage of total leukocytesOrdered By: Chey Kumar on 12-27-2024 Lymphocytes/100 WBC Auto (Unsp spec) 15.4 % Low 19-41 [facility] BUN/creatinine ratioOrdered By: Chey Kumar on 12-27-2024 Urea nitrogen/Creatinine [Mass ratio] 40.9 mg/mg High 10-20 [facility] Basophil percentageOrdered B y: Chey Kumar on 12-27-2024 Basophils/100 WBC (Bld) 0.3 % 0-1 [facility] Carbon dioxide, total [Moles /volume] in Central venous bloodOrdered By: Chey Kumar on 12-27-2024 CO2 [Moles/Vol] 26.8 mmol/L 21.0-32.0 [facility] Chloride assayOrdered By: Walt Kumar on 12-27-2024 Chloride [Moles/Vol] 98 mmol/L 98-108 [facility] Eosinophil percentageOrdered By: Chey Kumar on 12-27-2024 Eosinophils/100 WBC (Bld) 1.6 % 0-5 [facility] Erythrocyte distribution wid th ratioOrdered By: Chey Kumar on 12-27-2024 Erythrocyte distribution width (RBC) [Ratio] 13.2 % 11.6-14.6 [facility] Erythrocyte distribution wid th standard deviationOrdered By: garfield Kumar on 12-27-2024 Erythrocyte distribution width (RBC) [Ratio] 44.3 fl High 35.1-43.9 [facility] Glomerular filtration rate ( GFR) estimation/1.73 sq m using serum, plasma, or whole bOrdered By: Chey Kumar on 12-27-2024 GFR/1.73 sq M.predicted among non-blacks MDRD (S/P/Bld) [Vol rate/Area] 105 mL/min/{1.73_m2} >60 [facility] Comment on above: mL/min/1.73m2 CKD-EP I Creatinine Equation (2020) Hematocrit Auto (Bld) [Volum e fraction]Ordered By: Chey Kumar on 12-27-2024 Hematocrit (Bld) [Volume fraction] 33.4 % Low 37-47 [facility] Hemoglobin A1c percentageOrd ered By: Chey Kumar on 12-27-2024 HbA1c (Bld) [Mass fraction] 5.1 % <5.7 [facility] Comment on above: Normal < 5.7 % Predi abetic 5.7 - 6.4 % Diabetic >or= 6.5 % Please note range changes. Hemoglobin measurementOrdere d By: Chey Kumar on 12-27-2024 Hemoglobin (Bld) [Mass/Vol] 11.5 g/dL Low 12.0-15.0 [facility] Immature granulocytes/100 WB C Auto (Bld)Ordered By: Chey Kumar on 12-27-2024 Immature granulocytes/100 WBC (Bld) 0.100 % 0.0-0.9 [facility] Comment on above: IG% - Immature Granu locytes (promyelocytes, myelocytes and metamyelocytes) > 1% indicates that a LEFT SHIFT is Present. MCV (mean corpuscular volume ) determinationOrdered By: Chey Kumar on 12-27-2024 MCV (RBC) [Entitic vol] 93.0 fL 81-99 [facility] Mean corpuscular hemoglobin (MCH) determinationOrdered By: Chey Kumar on 12-27-2024 MCH (RBC) [Entitic mass] 32.0 pg 27.0-32.0 [facility] Mean corpuscular hemoglobin concentration (MCHC) determinationOrdered By: Chey Kumar on 12-27-2024 MCHC (RBC) [Mass/Vol] 34.4 g/dL 32-36 [facility] Mean platelet volume determi nationOrdered By: Chey Kumar on 12-27-2024 Platelet mean volume (Bld) [Entitic vol] 10.6 fL 6.2-12.0 [facility] Monocyte percentageOrdered B y: Melindashayoli Singletongriseldaella on 12-27-2024 Monocytes/100 WBC (Bld) 12.1 % High 0-10 [facility] Neutrophil percentageOrdered By: Chey Singletongriseldaella on 12-27-2024 Neutrophils/100 WBC (Bld) 70.5 % High 47-70 [facility] Nucleated red blood cell per centageOrdered By: Melindashayoli Singletongriseldaella on 12-27-2024 Nucleated RBC/100 WBC (Bld) [Ratio] 0 % 0-5 [facility] Platelet countOrdered By: Walt adeyoli Kumar on 12-27-2024 Platelets (Bld) [#/Vol] 217 10*3/uL 150-450 [facility] Potassium measurement (mass/ volume)Ordered By: Chey Kumar on 12-27-2024 Potassium (Unsp spec) [Mass/Vol] 3.7 mmol/L 3.3-5.1 [facility] RBC Auto (Bld) [#/Vol]Ordere d By: Chey Kumar on 12-27-2024 RBC (Bld) [#/Vol] 3.59 10*6/uL Low 4.2-5.4 [facility] Serum creatinine measurement (mass/volume)Ordered By: Chey Kumar on 12-27-2024 Creatinine [Mass/Vol] 0.28 mg/dL Low 0.70-1.20 [facility] Serum glucose measurement (m ass/volume)Ordered By: Chey Kumar on 12-27-2024 Glucose [Mass/Vol] 85 mg/dL 70-99 [facility] Serum or plasma calcium ori urement (mass/volume)Ordered By: Chey Kumar on 12-27-2024 Calcium [Mass/Vol] 8.9 mg/dL 7.6-11.0 [facility] Serum or plasma urea nitroge n measurement (mass/volume)Ordered By: Chey Kumar on 12-27-2024 Urea nitrogen [Mass/Vol] 11 mg/dL 4-19 [facility] Sodium levelOrdered By: Melinda Kumar on 12-27-2024 Sodium [Moles/Vol] 134 mmol/L 133-145 [facility] White blood cell (WBC) count Ordered By: Chey Kumar on 12-27-2024 WBC (Bld) [#/Vol] 7.0 10*3/uL 4.4-11.0 [facility] CNPNon 12-23-2024 CNPN Telephone (NEAGCLM) TENA CANNON ([id number]) 1940 F Date Time Provider Department 12/23/24 [...] by: Theresa Gonzales RN - Fully Assessed Prescriptions as [...] TEARS OPHTHALMIC) Use in eyes. - rutin/hesp/bioflav/C/h [id number] (BIOFLEX ORAL) Take 1 capsule by mouth twice daily. - CPAP BipaP @ 14/9 cm of water with humidification, removable water dispenser (for cleaning) . Mask (small/ per patient preference) , filters, tubing, humidifier and lifetime supplies. (G47.33, Z99.89) Obstructive sleep apnea on CPAP - cyclopentola (more content not included)... Normal [facility] Agustina 12-22-2024 PHAN Telephone (FPWireOver) TENA CANNON ([id number]) 1940 F Date Time Provider Department 12/22/24 [...] T11 and T12; she is currently at [facility]. Daughter states she is in so much pain and waiting 8 weeks in pain and would like to have surgery if possible. Daughter states her Mom is of sound mind and wants to MOVE forward. Patient has been identified by name and birthdate. Duration of symptoms: N/A Person calling: daughter: Juan [phone] Was an appointment scheduled: No Closing statement: Symptom Call: Thank you for calling [facility], your call is very important. A nurse will call in approximately 2-4 hours during business hours. If this is an emergency, please contact 911Dagmar Sahra Hooker MD 12/22/2024 9:55 AM Signed Spine surgery consult initiate. Dr Shawn Dorsey in [facility] is the most aggressive surgeon we're familiar with. Not sure that surgery for compression fracture is an option. Encounter Diagnosis ICD-10-CM 1. Compression fracture of thoracic vertebra with delayed healing, unspecified thoracic vertebral level, subsequent encounter S22.000G CONSULT TO SPINE SURGERY MD Viet Mitchell Crystal MD 12/22/2024 10:08 AM Signed Spoke with Erin and gave all contact information. Norma Long 12/22/2024 10:14 AM Signed Patient Tena called back and asked that we contact her daughter for any questions as she is not sure what is going on Juan [phone] fyi Allergies As of Date: 12/22/2024 Noted [...] subsequent encounter [S22.000G] Order(s):CONSULT TO SPINE SURGERY [[id number]] Order #: [id number]: 1 FUTURE Prescriptions as of 12/22/2024 - [...] once nicole (more content not included)... Normal [facility] 12-21-2024 PHAN Telephone (GIUSEPPE) TENA CANNON ([id number]) 1940 F Date Time Provider Department 12/21/24 [...] she had cath in - [facility]. - Called them and lvm to reschedule and possibly send a cath removal order if they are able to do so. Nirali Greene 12/22/2024 9:41 AM Signed Called [facility] again- they stated they have her scheduled for a cath removal and bladder scan for the . They do need a order though (not sure how they have it scheduled) - I advised I would fax them a order and if she has any issues they could follow up with a appointment Fax- [phone] Laury Crocker APRN.ANTONY 12/22/2024 10:04 AM Signed Maybe with another urology office? I can't place order for her to have catheter removed as she is new patient. Looks like urology was not consulted during admission. Her PCP or mattress filling machine tender at [facility] should be able to place order for it. Nirali Bai 12/22/2024 10:15 AM Signed Called the slag skimmer- she said she will confirm that she has a order and speak with the mattress filling machine tender. If she needs anything from us she [...] ophthalmic solu (more content not included)... Normal [facility] Absolute lymphocyte countOrd ered By: Chey Kumar on 12-20-2024 Lymphocytes Auto (Unsp spec) [#/Vol] 0.83 10*3/uL 0.83-4.51 [facility] Absolute neutrophil countOrd ered By: Chey Kumar on 12-20-2024 Neutrophils (Bld) [#/Vol] 6.3 10*3/uL 2.0-7.7 [facility] Anion gap in Serum or Plasma Ordered By: Melindapleasant plainsyoli Kumar on 12-20-2024 Anion gap [Moles/Vol] 11 mmol/L 5-15 [facility] Automated lymphocyte count a s percentage of total leukocytesOrdered By: Chey Kumar on 12-20-2024 Lymphocytes/100 WBC Auto (Unsp spec) 9.8 % Low 19-41 [facility] BUN/creatinine ratioOrdered By: Chey Menge on 12-20-2024 Urea nitrogen/Creatinine [Mass ratio] 53.7 mg/mg High 10-20 [facility] Basophil percentageOrdered B y: Chey Kumar on 12-20-2024 Basophils/100 WBC (Bld) 0.2 % 0-1 [facility] Bilirubin, totalOrdered By: Filibertoyoli Singletongriseldaella on 12-20-2024 Bilirubin [Mass/Vol] 0.58 mg/dL 0.00-1.30 [facility] CNPNon 12-20-2024 [facility] Telephone (LINDY) TENA CANNON ([id number]) 1940 F Date Time Provider Department 12/20/24 SAHRA GUY During your visit today, we recorded the following information about you: Woodbine PssRolandoTete 12/20/2024 9:25 AM Signed Tena is a patient of Sahra Guy MD today ANTONY Oliveira from [facility] called to speak with clinical staff regarding medication questions and why patient is taking certain medications, she stated patient is confused. Please scott her today. Patient has been identified by name and birthdate. Was an appointment scheduled: No Closing statement: Results or non-symptom based questions: Thank you for calling [facility], your call will be returned within the next business day. Tete Mora [facility] Destinyhelen MalikaLOBO 12/20/2024 11:24 AM Signed Spoke [...] TEARS OPHTHALMIC) Use in eyes. - rutin/hesp/bioflav/C/h [id number] (BIOFLEX ORAL) Take 1 capsule by mouth twice daily. - CPAP BipaP @ 14/9 cm of water with humidification, removable water dispenser (for cleaning) . Mask (small/ per patient preference) , filters, tubing, humidifier and lifetime supplies. (G47.3 (more content not included)... [facility] ([id number]) 1940 F Date Time Provider Department 12/20/24 SAHRA GUY During your visit today, we recorded the following information about you: Norma Long 12/20/2024 11:36 AM Signed Lucky Roxanne hogan [facility] is calling Sahra Guy MD today to request the MRI of the spine on 12/15/2024 be faxed to them at fax# [phone] Call back to [facility] Roxanne at phone [phone] Patient has been identified by name and birthdate. Person calling: nurse Call patient at: on cell [phone] (home) [phone] (cell) Was an appointment scheduled: Adonay Taylor [...] TEARS OPHTHALMIC) Use in eyes. - rutin/hesp/bioflav/C/h [id number] (BIOFLEX ORAL) Take 1 capsule by mouth [...] [B91] 05/12/2005 (more content not included)... Normal [facility] Carbon dioxide, total [Moles /volume] in Central venous bloodOrdered By: Chey Kumar on 12-20-2024 CO2 [Moles/Vol] 26.7 mmol/L 21.0-32.0 [facility] Chloride assayOrdered By: Walt Kumar on 12-20-2024 Chloride [Moles/Vol] 97 mmol/L Low 98-108 [facility] Eosinophil percentageOrdered By: Chey Kumar on 12-20-2024 Eosinophils/100 WBC (Bld) 1.6 % 0-5 [facility] Erythrocyte distribution wid th ratioOrdered By: garfield Kumar on 12-20-2024 Erythrocyte distribution width (RBC) [Ratio] 12.8 % 11.6-14.6 [facility] Erythrocyte distribution wid th standard deviationOrdered By: carmenpleasant plainsyoli Kumar on 12-20-2024 Erythrocyte distribution width (RBC) [Ratio] 42.7 fl 35.1-43.9 [facility] Glomerular filtration rate ( GFR) estimation/1.73 sq m using serum, plasma, or whole bOrdered By: Chey Kumar on 12-20-2024 GFR/1.73 sq M.predicted among non-blacks MDRD (S/P/Bld) [Vol rate/Area] 104 mL/min/{1.73_m2} >60 [facility] Comment on above: mL/min/1.73m2 CKD-EP I Creatinine Equation (2020) Hematocrit Auto (Bld) [Volum e fraction]Ordered By: Chey Kumar on 12-20-2024 Hematocrit (Bld) [Volume fraction] 40.5 % 37-47 [facility] Hemoglobin measurementOrdere d By: Chey Kumar on 12-20-2024 Hemoglobin (Bld) [Mass/Vol] 14.0 g/dL 12.0-15.0 [facility] Immature granulocytes/100 WB C Auto (Bld)Ordered By: Chey Kumar on 12-20-2024 Immature granulocytes/100 WBC (Bld) 1.300 % High 0.0-0.9 [facility] Comment on above: IG% - Immature Granu locytes (promyelocytes, myelocytes and metamyelocytes) > 1% indicates that a LEFT SHIFT is Present. Laboratory - Chemistry and C hemistry - challengeOrdered By: Chey Kumar on 12-20-2024 AST [Catalytic activity/Vol] 43 U/L High <32 [facility] MCV (mean corpuscular volume ) determinationOrdered By: Chey Kumar on 12-20-2024 MCV (RBC) [Entitic vol] 91.8 fL 81-99 [facility] Mean corpuscular hemoglobin (MCH) determinationOrdered By: Chey Kumar on 12-20-2024 MCH (RBC) [Entitic mass] 31.7 pg 27.0-32.0 [facility] Mean corpuscular hemoglobin concentration (MCHC) determinationOrdered By: Chey Kumar on 12-20-2024 MCHC (RBC) [Mass/Vol] 34.6 g/dL 32-36 [facility] Mean platelet volume determi nationOrdered By: Chey Kumar on 12-20-2024 Platelet mean volume (Bld) [Entitic vol] 11.2 fL 6.2-12.0 [facility] Monocyte percentageOrdered B y: Chey Kumar on 12-20-2024 Monocytes/100 WBC (Bld) 12.9 % High 0-10 [facility] Neutrophil percentageOrdered By: Chey Kumar on 12-20-2024 Neutrophils/100 WBC (Bld) 74.2 % High 47-70 [facility] Nucleated red blood cell per centageOrdered By: Chey Kumar on 12-20-2024 Nucleated RBC/100 WBC (Bld) [Ratio] 0 % 0-5 [facility] Platelet countOrdered By: Walt Kumar on 12-20-2024 Platelets (Bld) [#/Vol] 230 10*3/uL 150-450 [facility] Potassium measurement (mass/ volume)Ordered By: Chey Kumar on 12-20-2024 Potassium (Unsp spec) [Mass/Vol] 4.0 mmol/L 3.3-5.1 [facility] RBC Auto (Bld) [#/Vol]Ordere d By: Chey Kumar on 12-20-2024 RBC (Bld) [#/Vol] 4.41 10*6/uL 4.2-5.4 [facility] Serum creatinine measurement (mass/volume)Ordered By: Chey Kumar on 12-20-2024 Creatinine [Mass/Vol] 0.30 mg/dL Low 0.70-1.20 [facility] Serum globulin measurementOr dered By: Chey Kumar on 12-20-2024 Globulin (S) [Mass/Vol] 2.8 g/dL 2.2-4.2 [facility] Serum glucose measurement (m ass/volume)Ordered By: Chey Kumar on 12-20-2024 Glucose [Mass/Vol] 108 mg/dL High 70-99 [facility] Serum or plasma alanine grimaldo otransferase (ALT) measurementOrdered By: Chey Kumar on 12-20-2024 ALT [Catalytic activity/Vol] 26 U/L <35 [facility] Serum or plasma albumin ori urement (mass/volume)Ordered By: Chey Kumar on 12-20-2024 Albumin [Mass/Vol] 3.3 g/dL Low 3.4-4.8 [facility] Serum or plasma albumin/glob ulin mass ratioOrdered By: Chey Kumar on 12-20-2024 Albumin/Globulin [Mass ratio] 1.2 {ratio} 0.9-2.4 [facility] Serum or plasma alkaline nikia sphatase measurementOrdered By: Chey Kumar on 12-20-2024 ALP [Catalytic activity/Vol] 98 U/L 35-104 [facility] Serum or plasma calcium ori urement (mass/volume)Ordered By: Chey Kumar on 12-20-2024 Calcium [Mass/Vol] 9.4 mg/dL 7.6-11.0 [facility] Serum or plasma urea nitroge n measurement (mass/volume)Ordered By: Chey Kuamr on 12-20-2024 Urea nitrogen [Mass/Vol] 16 mg/dL - [facility] Sodium levelOrdered By: Melinda Kumar on 12-20-2024 Sodium [Moles/Vol] 135 mmol/L 133-145 [facility] Total proteinOrdered By: Gary Kumar on 12-20-2024 Protein [Mass/Vol] 6.1 g/dL 5.9-8.4 [facility] White blood cell (WBC) count Ordered By: Chey Maniaubrey on 12-20-2024 WBC (Bld) [#/Vol] 8.5 10*3/uL 4.4-11.0 [facility] Basic metabolic 2000 panelon 12-19-2024 Anion gap [Moles/Vol] 8 mmol/L Normal 8-15 [facility] Comment on above: Order Comment: Speci men Type: BLOOD SPECIMENOrdering Facility: [facility] Address: [address] [place] [address] Performed By: #### 2 4321-2, ####[facility] LABORATORYCLIA [id number] [place] [address] [place] Calcium [Mass/Vol] 8.9 mg/dL Normal 8.5-10.2 [facility] Comment on above: Order Comment: Speci men Type: BLOOD SPECIMENOrdering Facility: [facility] Address: [address] [place] [address] Performed By: #### 2 4321-2, ####KENDRICK LABORATORYCLIA [id number] [place] [address] [place] Chloride [Moles/Vol] 99 mmol/L Normal 98-[address] [facility] Comment on above: Order Comment: Speci men Type: BLOOD SPECIMENOrdering Facility: [facility] Address: [address] [place] [address] Performed By: #### 2 4321-2, ####KENDRICK LABORATORYCLIA [id number] [place] [address] [place] CO2 [Moles/Vol] 32 mmol/L High 22-30 [facility] Comment on above: Order Comment: Speci men Type: BLOOD SPECIMENOrdering Facility: [facility] Address: [address] [place] [address] Performed By: #### 2 4321-2, ####KENDRICK LABORATORYCLIA [id number] [place] [id number] [place] [facility] Creatinine [Mass/Vol] 0.34 mg/dL Low 0.58-0.96 [facility] Comment on above: Order Comment: Helena aiyana Type: BLOOD SPECIMENOrdering Facility: [facility] Address: [address] [place] [address] Performed By: #### 2 4321-2, ####KENDRICK LABORATORYCLIA [id number] [place] [id number] [facility] Creatinine and Glomerular filtration rate.predicted panel (S/P/Bld) 100 mL/min/1.73m??? Normal >=60 [facility] Comment on above: Order Comment: Helena aiyana Type: BLOOD SPECIMENOrdering Facility: [facility] Address: [address] [place] [address] Result Comment: Sara mated Glomerular Filtration Rate [...] Performed By: #### 2 4321-2, ####KENDRICK LABORATORYCLIA [id number] [place] [id number] [place] Glucose [Mass/Vol] 89 mg/dL Normal 74-99 [facility] Comment on above: Order Comment: Helena bronson Type: BLOOD SPECIMENOrdering Facility: [facility] Address: [address] [place] [address] Result Comment: The [place] [employer] (ADA) provides guidance for [...] Standards of Medical Care in Diabetes 2016, [place] [employer]. Diabetes Care. 2016.39(Suppl 1). Performed By: #### 2 2, ####KENDRICK LABORATORYCLIA [id number] [address] [place] [facility] Potassium [Moles/Vol] 4.1 mmol/L Normal 3.7-5.1 [facility] Comment on above: Order Comment: Helena bronson Type: BLOOD SPECIMENOrdering Facility: [facility] Address: [address] [place] [address] Performed By: #### 2 4320-09, ####KENDRICK LABORATORYCLIA [id number] [address] Sodium [Moles/Vol] 139 mmol/L Normal 136-144 [facility] Comment on above: Order Comment: Helena bronson Type: BLOOD SPECIMENOrdering Facility: [facility] Address: [address] [place] [address] Performed By: #### 2 4320-09, ####KENDRICK LABORATORYCLIA [id number] [address] Urea nitrogen [Mass/Vol] 18 mg/dL Normal 7-21 [facility] Comment on above: Order Comment: Helena bronson Type: BLOOD SPECIMENOrdering Facility: [facility] Address: [address] [place] [address] Performed By: #### 2 4320-09, ####KENDRICK LABORATORYCLIA [id number] [address] CBC panel Auto (Bld)on 12-19 Erythrocyte distribution width (RBC) [Ratio] 12.6 % Normal 11.5-15.0 [facility] Comment on above: Order Comment: Helena bronson Type: BLOOD SPECIMENOrdering Facility: [facility] Address: [address] [place] [address] Performed By: #### 5 8410-2 ####KENDRICK LABORATORYCLIA [id number] [address] Hematocrit (Bld) [Volume fraction] 36.3 % Normal 36.0-46.0 [facility] Comment on above: Order Comment: Speci men Type: BLOOD SPECIMENOrdering Facility: [facility] Address: [address] [place] [address] Performed By: #### 5 8410-2 ####KENDRICK LABORATORYCLIA [id number] [address] Hemoglobin (Bld) [Mass/Vol] 12.2 g/dL Normal 11.5-15.5 [facility] Comment on above: Order Comment: Speci men Type: BLOOD SPECIMENOrdering Facility: [facility] Address: [address] [place] [address] Performed By: #### 5 8410-2 ####KENDRICK LABORATORYCLIA [id number] [address] MCH (RBC) [Entitic mass] 31.0 pg Normal 26.0-34.0 [facility] Comment on above: Order Comment: Speci men Type: BLOOD SPECIMENOrdering Facility: [facility] Address: [address] [place] [address] Performed By: #### 5 8410-2 ####KENDRICK LABORATORYCLIA [id number] [address] MCHC (RBC) [Mass/Vol] 33.6 g/dL Normal 30.5-36.0 [facility] Comment on above: Order Comment: Speci men Type: BLOOD SPECIMENOrdering Facility: [facility] Address: [address] [place] [address] Performed By: #### 5 8410-2 ####KENDRICK LABORATORYCLIA [id number] [address] MCV (RBC) [Entitic vol] 92.1 fL Normal 80.0-100.0 [facility] Comment on above: Order Comment: Speci men Type: BLOOD SPECIMENOrdering Facility: [facility] Address: [address] [place] [address] Performed By: #### 5 8410-2 ####KENDRICK LABORATORYCLIA [id number] [place] [address] [place] Nucleated RBC (Bld) [#/Vol] 10*3/uL Normal <0.01 [facility] Comment on above: Order Comment: Speci men Type: BLOOD SPECIMENOrdering Facility: [facility] Address: [address] [place] [address] Performed By: #### 5 8410-2 ####KENDRICK LABORATORYCLIA [id number] [place] [address] [place] Platelet mean volume (Bld) [Entitic vol] 10.9 fL Normal 9.0-12.7 [facility] Comment on above: Order Comment: Speci men Type: BLOOD SPECIMENOrdering Facility: [facility] Address: [address] [place] [address] Performed By: #### 5 8410-2 ####KENDRICK LABORATORYCLIA [id number] [place] [address] [place] Platelets (Bld) [#/Vol] 185 10*3/uL Normal 150-400 [facility] Comment on above: Order Comment: Speci men Type: BLOOD SPECIMENOrdering Facility: [facility] Address: [address] [place] [address] Performed By: #### 5 8410-2 ####KENDRICK LABORATORYCLIA [id number] [place] [id number] [place] RBC (Bld) [#/Vol] 3.94 10*6/uL Normal 3.90-5.20 [facility] Comment on above: Order Comment: Speci men Type: BLOOD SPECIMENOrdering Facility: [facility] Address: [address] [place] [address] Performed By: #### 5 8410-2 ####KENDRICK LABORATORYCLIA [id number] [place] [id number] [place] WBC (Bld) [#/Vol] 4.50 10*3/uL Normal 3.70-11.00 [facility] Comment on above: Order Comment: Speci men Type: BLOOD SPECIMENOrdering Facility: [facility] Address: [address] [place] [address] Performed By: #### 5 8410-2 ####KENDRICK LABORATORYCLIA [id number] [place] [address] [facility] CNDSon 12-19-2024 CNDS HNO ID: [id number] Author: MORIAH LOPEZ MD Service: Hospital Medicine [...] is causing this. Follow up with a [employer] for your constipation. Remove Phoenix catheter after having flomax for 1 week. Remove on 12/24 to see if you can urinate on your own again. Referral to Urology, Spine surgery, Gastroenterology placed. Thursday-Thursday after 9 am, call gravure press operator at [phone] [phone] and ask for the appointment line [...] No pending results Discharge Disposition Discharge Disposition: Penitentiary Facility - Less than 30 Days Follow [...] at 6 pm that he spoke with [facility] neurosurgeon emr implementation specialist who said that patient isn't a surgical [...] results. FOLLOW-UP APPOINTMENTS ALREADY SCHEDULED WITH A [facility] PROVIDER: Future Appointments Date Time Provider Department Center 01/02/2025 10:30 AM Timothy Shine MD [facility] 01/05/2025 9:40 AM Harinder Kiran PA-C [facility] ALLERGIES Allergen Reactions Keflex [Cephalexin] Diarrhea, GI Upset extreme diarrhea Vioxx [Rofecoxib] Intolerance Makes capillaryblood vessels break Novocain [Procaine * Intolerance headaches Amanda-3 Fish Oil [O* Intoler (more content not included)... Normal [facility] Magnesium SerPl-mCncon 12-19 Magnesium [Mass/Vol] 2.2 mg/dL Normal 1.7-2.[address] [facility] Comment on above: Order Comment: Speci men Type: BLOOD SPECIMENOrdering Facility: [facility] Address: [address] [place] [address] Performed By: #### 2 4320-09, ####MERTZON LABORATORYCLIA [id number] [place] [address] [place] Basic metabolic 2000 panelon 12-18-2024 Anion gap [Moles/Vol] 9 mmol/L Normal 8-15 [facility] Comment on above: Order Comment: Speci men Type: BLOOD SPECIMENOrdering Facility: [facility] Address: [address] [place] [address] Performed By: #### 2 2, ####MERTZON LABORATORYCLIA [id number] [place] [id number] [place] Calcium [Mass/Vol] 9.3 mg/dL Normal 8.5-10.2 [facility] Comment on above: Order Comment: Speci men Type: BLOOD SPECIMENOrdering Facility: [facility] Address: [address] [place] [address] Performed By: #### 2 432-2, ####MERTZON LABORATORYCLIA [id number] [place] [address] [place] Chloride [Moles/Vol] 96 mmol/L Low 98-[address] [facility] Comment on above: Order Comment: Helena bronson Type: BLOOD SPECIMENOrdering Facility: [facility] Address: [address] [place] [address] Performed By: #### 2 4321-2, ####KENDRICK LABORATORYCLIA [id number] [place] [address] [place] CO2 [Moles/Vol] 31 mmol/L High 22-30 [facility] Comment on above: Order Comment: Helena men Type: BLOOD SPECIMENOrdering Facility: [facility] Address: [address] [place] [address] Performed By: #### 2 2, ####KENDRICK LABORATORYCLIA [id number] [address] [place] Creatinine [Mass/Vol] 0.30 mg/dL Low 0.58-0.96 [facility] Comment on above: Order Comment: Helena aiyana Type: BLOOD SPECIMENOrdering Facility: [facility] Address: [address] [place] [address] Performed By: #### 2 2, ####KENDRICK LABORATORYCLIA [id number] [address] Creatinine and Glomerular filtration rate.predicted panel (S/P/Bld) 103 mL/min/1.73m??? Normal >=60 [facility] Comment on above: Order Comment: Helena aiyana Type: BLOOD SPECIMENOrdering Facility: [facility] Address: [address] [place] [address] Result Comment: Sara mated Glomerular Filtration Rate [...] reflect actual GFR. Performed By: #### 2 4320-2, ####KENDRICK LABORATORYCLIA [id number] [place] [address] [place] Glucose [Mass/Vol] 99 mg/dL Normal 74-99 [facility] Comment on above: Order Comment: Helena bronson Type: BLOOD SPECIMENOrdering Facility: [facility] Address: [address] [place] [address] Result Comment: The [place] [employer] (ADA) provides guidance for [...] Standards of Medical Care in Diabetes 2016, [place] [employer]. Diabetes Care. 2016.39(Suppl 1). Performed By: #### 2 43208-04, ####KENDRICK LABORATORYCLIA [id number] [place] [id number] [place] Potassium [Moles/Vol] 4.1 mmol/L Normal 3.7-5.1 [facility] Comment on above: Order Comment: Helena bronson Type: BLOOD SPECIMENOrdering Facility: [facility] Address: [address] [place] [address] Performed By: #### 2 432-, ####KENDRICK LABORATORYCLIA [id number] [place] [id number] [place] Sodium [Moles/Vol] 136 mmol/L Normal 136-144 [facility] Comment on above: Order Comment: Helena bronson Type: BLOOD SPECIMENOrdering Facility: [facility] Address: [address] [place] [address] Performed By: #### 2 432-, ####KENDRICK LABORATORYCLIA [id number] [place] [id number] [place] Urea nitrogen [Mass/Vol] 18 mg/dL Normal 7-21 [facility] Comment on above: Order Comment: Speci men Type: BLOOD SPECIMENOrdering Facility: [facility] Address: [address] [place] [address] Performed By: #### 2 4321-2, 31727-7 ####KENDRICK LABORATORYCLIA [id number] [address] CBC panel Auto (Bld)on 12-18 Erythrocyte distribution width (RBC) [Ratio] 12.5 % Normal 11.5-15.0 [facility] Comment on above: Order Comment: Speci men Type: BLOOD SPECIMENOrdering Facility: [facility] Address: [address] [place] [address] Performed By: #### 5 8410-2 ####KENDRICK LABORATORYCLIA [id number] [address] [place] Hematocrit (Bld) [Volume fraction] 35.1 % Low 36.0-46.0 [facility] Comment on above: Order Comment: Speci men Type: BLOOD SPECIMENOrdering Facility: [facility] Address: [address] [place] [address] Performed By: #### 5 8410-2 ####KENDRICK LABORATORYCLIA [id number] [address] [place] Hemoglobin (Bld) [Mass/Vol] 12.0 g/dL Normal 11.5-15.5 [facility] Comment on above: Order Comment: Speci men Type: BLOOD SPECIMENOrdering Facility: [facility] Address: [address] [place] [address] Performed By: #### 5 8410-2 ####KENDRICK LABORATORYCLIA [id number] [address] MCH (RBC) [Entitic mass] 31.3 pg Normal 26.0-34.0 [facility] Comment on above: Order Comment: Speci men Type: BLOOD SPECIMENOrdering Facility: [facility] Address: [address] [place] [address] Performed By: #### 5 8410-2 ####KENDRICK LABORATORYCLIA [id number] [place] [address] [place] MCHC (RBC) [Mass/Vol] 34.2 g/dL Normal 30.5-36.0 [facility] Comment on above: Order Comment: Speci men Type: BLOOD SPECIMENOrdering Facility: [facility] Address: [address] [place] [address] Performed By: #### 5 8410-2 ####KENDRICK LABORATORYCLIA [id number] [place] [address] [place] MCV (RBC) [Entitic vol] 91.4 fL Normal 80.0-100.0 [facility] Comment on above: Order Comment: Speci men Type: BLOOD SPECIMENOrdering Facility: [facility] Address: [address] [place] [address] Performed By: #### 5 8410-2 ####KENDRICK LABORATORYCLIA [id number] [address] [place] Nucleated RBC (Bld) [#/Vol] 10*3/uL Normal <0.01 [facility] Comment on above: Order Comment: Speci men Type: BLOOD SPECIMENOrdering Facility: [facility] Address: [address] [place] [address] Performed By: #### 5 8410-2 ####KENDRICK LABORATORYCLIA [id number] [place] [address] [place] Platelet mean volume (Bld) [Entitic vol] 10.7 fL Normal 9.0-12.7 [facility] Comment on above: Order Comment: Speci men Type: BLOOD SPECIMENOrdering Facility: [facility] Address: [address] [place] [address] Performed By: #### 5 8410-2 ####KENDRICK LABORATORYCLIA [id number] [place] [address] [place] Platelets (Bld) [#/Vol] 212 10*3/uL Normal 150-400 [facility] Comment on above: Order Comment: Speci men Type: BLOOD SPECIMENOrdering Facility: [facility] Address: [address] [place] [address] Performed By: #### 5 8410-2 ####KENDRICK LABORATORYCLIA [id number] [place] [address] [place] RBC (Bld) [#/Vol] 3.84 10*6/uL Low 3.90-5.20 [facility] Comment on above: Order Comment: Speci men Type: BLOOD SPECIMENOrdering Facility: [facility] Address: [address] [place] [address] Performed By: #### 5 8410-2 ####KENDRICK LABORATORYCLIA [id number] [place] [id number] [place] WBC (Bld) [#/Vol] 6.24 10*3/uL Normal 3.70-11.00 [facility] Comment on above: Order Comment: Speci men Type: BLOOD SPECIMENOrdering Facility: [facility] Address: [address] [place] [address] Performed By: #### 5 8410-2 ####KENDRCIK LABORATORYCLIA [id number] [place] [address] [place] Magnesium SerPl-mCncon 12-18 Magnesium [Mass/Vol] 1.8 mg/dL Normal 1.7-2.[address] [facility] Comment on above: Order Comment: Speci men Type: BLOOD SPECIMENOrdering Facility: [facility] Address: [address] [place] [address] Performed By: #### 2 4321-2, 46329-1 ####KENDRICK LABORATORYCLIA [id number] [place] [id number] [place] Basic metabolic 2000 panelon 12-17-2024 Anion gap [Moles/Vol] 9 mmol/L Normal 8-15 [facility] Comment on above: Order Comment: Speci men Type: BLOOD SPECIMENOrdering Facility: [facility] Address: [address] [place] [address] Performed By: #### 1 9123-9, 02289-9 ####KENDRICK LABORATORYCLIA [id number] [place] [address] [place] Calcium [Mass/Vol] 9.9 mg/dL Normal 8.5-10.2 [facility] Comment on above: Order Comment: Speci men Type: BLOOD SPECIMENOrdering Facility: [facility] Address: [address] [place] [address] Performed By: #### 1 91239, 59924-6 ####KENDRICK LABORATORYCLIA [id number] [place] [address] [place] Chloride [Moles/Vol] 97 mmol/L Low 98-[address] [facility] Comment on above: Order Comment: Speci men Type: BLOOD SPECIMENOrdering Facility: [facility] Address: [address] [place] [address] Performed By: #### 1 9123-9, 30878-5 ####MERTZON LABORATORYCLIA [id number] [place] [address] [place] CO2 [Moles/Vol] 32 mmol/L High 22-30 [facility] Comment on above: Order Comment: Speci men Type: BLOOD SPECIMENOrdering Facility: [facility] Address: [address] [place] [address] Performed By: #### 1 91239, 50069-5 ####MERTZON LABORATORYCLIA [id number] [place] [address] [place] Creatinine [Mass/Vol] 0.27 mg/dL Low 0.58-0.96 [facility] Comment on above: Order Comment: Speci men Type: BLOOD SPECIMENOrdering Facility: [facility] Address: [address] [place] [address] Performed By: #### 1 9123-9, 51265-8 ####MERTZON LABORATORYCLIA [id number] [place] [address] [facility] [place] Creatinine and Glomerular filtration rate.predicted panel (S/P/Bld) 106 mL/min/1.73m??? Normal >=60 [facility] Comment on above: Order Comment: Speci men Type: BLOOD SPECIMENOrdering Facility: [facility] Address: [address] [place] [address] Result Comment: Sara mated Glomerular Filtration Rate [...] actual GFR. Performed By: #### 1 9123-9, 90483-0 ####KENDRICK LABORATORYCLIA [id number] [place] [address] [place] Glucose [Mass/Vol] 97 mg/dL Normal 74-99 [facility] Comment on above: Order Comment: Helena bronson Type: BLOOD SPECIMENOrdering Facility: [facility] Address: [address] [place] [id number] Result Comment: The [place] [employer] (ADA) provides guidance for [...] Standards of Medical Care in Diabetes 2016, [place] [employer]. Diabetes Care. 2016.39(Suppl 1). Performed By: #### 1 9123-9, 01767-7 ####KENDRICK LABORATORYCLIA [id number] [place] [id number] [place] Potassium [Moles/Vol] 3.5 mmol/L Low 3.7-5.1 [facility] Comment on above: Order Comment: Helena bronson Type: BLOOD SPECIMENOrdering Facility: [facility] Address: [address] [place] [address] Performed By: #### 1 9123-9, 49410-2 ####KENDRICK LABORATORYCLIA [id number] [place] [id number] [place] Sodium [Moles/Vol] 138 mmol/L Normal 136-144 [facility] Comment on above: Order Comment: Helena bronson Type: BLOOD SPECIMENOrdering Facility: [facility] Address: [address] [place] [address] Performed By: #### 1 9123-9, 82732-0 ####KENDRICK LABORATORYCLIA [id number] [address] [place] Urea nitrogen [Mass/Vol] 23 mg/dL High 7-21 [facility] Comment on above: Order Comment: Speci men Type: BLOOD SPECIMENOrdering Facility: [facility] Address: [address] [place] [address] Performed By: #### 1 9123-9, 62413-1 ####KENDRICK LABORATORYCLIA [id number] [address] [place] CBC panel Auto (Bld)on 12-17 Erythrocyte distribution width (RBC) [Ratio] 12.5 % Normal 11.5-15.0 [facility] Comment on above: Order Comment: Speci men Type: BLOOD SPECIMENOrdering Facility: [facility] Address: [address] [place] [address] Performed By: #### 5 8410-2 ####KENDRICK LABORATORYCLIA [id number] [address] Hematocrit (Bld) [Volume fraction] 35.8 % Low 36.0-46.0 [facility] Comment on above: Order Comment: Speci men Type: BLOOD SPECIMENOrdering Facility: [facility] Address: [address] [place] [address] Performed By: #### 5 8410-2 ####KENDRICK LABORATORYCLIA [id number] [address] [place] [facility] Hemoglobin (Bld) [Mass/Vol] 12.8 g/dL Normal 11.5-15.5 [facility] Comment on above: Order Comment: Speci men Type: BLOOD SPECIMENOrdering Facility: [facility] Address: [address] [place] [address] Performed By: #### 5 8410-2 ####KENDRICK LABORATORYCLIA [id number] [address] [place] MCH (RBC) [Entitic mass] 31.9 pg Normal 26.0-34.0 [facility] Comment on above: Order Comment: Speci men Type: BLOOD SPECIMENOrdering Facility: [facility] Address: [address] [place] [address] Performed By: #### 5 8410-2 ####KENDRICK LABORATORYCLIA [id number] [address] MCHC (RBC) [Mass/Vol] 35.8 g/dL Normal 30.5-36.0 [facility] Comment on above: Order Comment: Speci men Type: BLOOD SPECIMENOrdering Facility: [facility] Address: [address] [place] [address] Performed By: #### 5 8410-2 ####KENDRICK LABORATORYCLIA [id number] [address] [place] MCV (RBC) [Entitic vol] 89.3 fL Normal 80.0-100.0 M [facility] Comment on above: Order Comment: Speci men Type: BLOOD SPECIMENOrdering Facility: [facility] Address: [address] [place] [address] Performed By: #### 5 8410-2 ####KENDRICK LABORATORYCLIA [id number] [address] Nucleated RBC (Bld) [#/Vol] 10*3/uL Normal <0.01 [facility] Comment on above: Order Comment: Speci men Type: BLOOD SPECIMENOrdering Facility: [facility] Address: [address] [place] [address] Performed By: #### 5 8410-2 ####KENDRICK LABORATORYCLIA [id number] [address] [place] Platelet mean volume (Bld) [Entitic vol] 10.5 fL Normal 9.0-12.7 [facility] Comment on above: Order Comment: Speci men Type: BLOOD SPECIMENOrdering Facility: [facility] Address: [address] [place] [address] Performed By: #### 5 8410-2 ####KENDRICK LABORATORYCLIA [id number] [address] [place] Platelets (Bld) [#/Vol] 226 10*3/uL Normal 150-400 [facility] Comment on above: Order Comment: Speci men Type: BLOOD SPECIMENOrdering Facility: [facility] Address: [facility] [place] [address] Performed By: #### 5 8410-2 ####KENDRICK LABORATORYCLIA [id number] [place] [address] [place] RBC (Bld) [#/Vol] 4.01 10*6/uL Normal 3.90-5.20 [facility] Comment on above: Order Comment: Speci men Type: BLOOD SPECIMENOrdering Facility: [facility] Address: [address] [place] [address] Performed By: #### 5 8410-2 ####MERTZON LABORATORYCLIA [id number] [address] WBC (Bld) [#/Vol] 9.07 10*3/uL Normal 3.70-11.00 [facility] Comment on above: Order Comment: Speci men Type: BLOOD SPECIMENOrdering Facility: [facility] Address: [address] [place] [address] Performed By: #### 5 8410-2 ####MERTZON LABORATORYCLIA [id number] [address] Magnesium SerPl-mCncon 12-17 Magnesium [Mass/Vol] 1.8 mg/dL Normal 1.7-2.[address] [facility] Comment on above: Order Comment: Speci men Type: BLOOD SPECIMENOrdering Facility: [facility] Address: [address] [place] [address] Performed By: #### 1 9123-9, 34764-3 ####KENDRICK LABORATORYCLIA [id number] [place] [address] [place] Basic metabolic 2000 panelon 12-16-2024 Anion gap [Moles/Vol] 13 mmol/L Normal 8-15 [facility] Comment on above: Order Comment: Speci men Type: BLOOD SPECIMENOrdering Facility: [facility] Address: [address] [place] [address] Performed By: #### 2 4321-2, ####KENDRICK LABORATORYCLIA [id number] [place] [address] [place] Calcium [Mass/Vol] 9.5 mg/dL Normal 8.5-10.2 [facility] Comment on above: Order Comment: Speci men Type: BLOOD SPECIMENOrdering Facility: [facility] Address: [address] [place] [address] Performed By: #### 2 4321-2, ####KENDRICK LABORATORYCLIA [id number] [place] [address] [place] Chloride [Moles/Vol] 98 mmol/L Normal 98-[address] [facility] Comment on above: Order Comment: Speci men Type: BLOOD SPECIMENOrdering Facility: [facility] Address: [address] [place] [address] Performed By: #### 2 4321-2, ####KENDRICK LABORATORYCLIA [id number] [place] [address] [place] CO2 [Moles/Vol] 24 mmol/L Normal 22-30 [facility] Comment on above: Order Comment: Speci men Type: BLOOD SPECIMENOrdering Facility: [facility] Address: [address] [place] [address] Performed By: #### 2 4320-2, ####KENDRICK LABORATORYCLIA [id number] [place] [address] [place] Creatinine [Mass/Vol] 0.24 mg/dL Low 0.58-0.96 [facility] Comment on above: Order Comment: Speci men Type: BLOOD SPECIMENOrdering Facility: [facility] Address: [address] [place] [address] Performed By: #### 2 432-2, ####KENDRICK LABORATORYCLIA [id number] [address] Creatinine and Glomerular filtration rate.predicted panel (S/P/Bld) 109 mL/min/1.73m??? Normal >=60 [facility] Comment on above: Order Comment: Speci men Type: BLOOD SPECIMENOrdering Facility: [facility] Address: [address] [place], [place] [address] Result Comment: Sara mated Glomerular Filtration Rate [...] actual GFR. Performed By: #### 2 432-2, ####MERTZON LABORATORYCLIA [id number] [place] [address] [place] Glucose [Mass/Vol] 117 mg/dL High 74-99 [facility] Comment on above: Order Comment: Helena bronson Type: BLOOD SPECIMENOrdering Facility: [facility] Address: [address] [place], [place] [id number] Result Comment: The [place] [employer] (ADA) provides guidance for [...] Standards of Medical Care in Diabetes 2016, [place] [employer]. Diabetes Care. 2016.39(Suppl 1). Performed By: #### 2 4320-, ####MERTZON LABORATORYCLIA [id number] [place] [address] [place] Potassium [Moles/Vol] 3.4 mmol/L Low 3.7-5.1 [facility] Comment on above: Order Comment: Helena bronson Type: BLOOD SPECIMENOrdering Facility: [facility] Address: [address] [place], [place] [address] Performed By: #### 2 4320-, ####KENDRICK LABORATORYCLIA [id number] [place] [address] [place] Sodium [Moles/Vol] 135 mmol/L Low 136-144 [facility] Comment on above: Order Comment: Speci men Type: BLOOD SPECIMENOrdering Facility: [facility] Address: [address] [place] [address] Performed By: #### 2 4321-2, 58592-2 ####KENDRICK LABORATORYCLIA [id number] [place] [address] [place] Urea nitrogen [Mass/Vol] 25 mg/dL High 7-21 [facility] Comment on above: Order Comment: Speci men Type: BLOOD SPECIMENOrdering Facility: [facility] Address: [address] [place] [address] Performed By: #### 2 4321-2, 61501-4 ####KENDRICK LABORATORYCLIA [id number] [place] [address] [place] CBC panel Auto (Bld)on 12-16 Erythrocyte distribution width (RBC) [Ratio] 12.5 % Normal 11.5-15.0 [facility] Comment on above: Order Comment: Speci men Type: BLOOD SPECIMENOrdering Facility: [facility] Address: [address] [place] [address] Performed By: #### 5 8410-2 ####KENDRICK LABORATORYCLIA [id number] [address] [place] Hematocrit (Bld) [Volume fraction] 38.7 % Normal 36.0-46.0 [facility] Comment on above: Order Comment: Speci men Type: BLOOD SPECIMENOrdering Facility: [facility] Address: [address] [place] [address] Performed By: #### 5 8410-2 ####KENDRICK LABORATORYCLIA [id number] [place] [id number] [place] Hemoglobin (Bld) [Mass/Vol] 13.4 g/dL Normal 11.5-15.5 [facility] Comment on above: Order Comment: Speci men Type: BLOOD SPECIMENOrdering Facility: [facility] Address: [address] [place], [place] [address] Performed By: #### 5 8410-2 ####KENDRICK LABORATORYCLIA [id number] [address] MCH (RBC) [Entitic mass] 30.7 pg Normal 26.0-34.0 [facility] Comment on above: Order Comment: Speci men Type: BLOOD SPECIMENOrdering Facility: [facility] Address: [address] [place] [address] Performed By: #### 5 8410-2 ####KENDRICK LABORATORYCLIA [id number] [address] MCHC (RBC) [Mass/Vol] 34.6 g/dL Normal 30.5-36.0 [facility] Comment on above: Order Comment: Speci men Type: BLOOD SPECIMENOrdering Facility: [facility] Address: [address] [place] [address] Performed By: #### 5 8410-2 ####KENDRICK LABORATORYCLIA [id number] [address] MCV (RBC) [Entitic vol] 88.8 fL Normal 80.0-100.0 [facility] Comment on above: Order Comment: Speci men Type: BLOOD SPECIMENOrdering Facility: [facility] Address: [address] [place] [address] Performed By: #### 5 8410-2 ####KENDRCIK LABORATORYCLIA [id number] [address] Nucleated RBC (Bld) [#/Vol] 10*3/uL Normal <0.01 [facility] Comment on above: Order Comment: Speci men Type: BLOOD SPECIMENOrdering Facility: [facility] Address: [address] [place] [address] Performed By: #### 5 8410-2 ####KENDRICK LABORATORYCLIA [id number] [address] Platelet mean volume (Bld) [Entitic vol] 10.2 fL Normal 9.0-12.7 [facility] Comment on above: Order Comment: Speci men Type: BLOOD SPECIMENOrdering Facility: [facility] Address: [facility] [place] [address] Performed By: #### 5 8410-2 ####KENDRICK LABORATORYCLIA [id number] [address] [place] Platelets (Bld) [#/Vol] 262 10*3/uL Normal 150-400 [facility] Comment on above: Order Comment: Speci men Type: BLOOD SPECIMENOrdering Facility: [facility] Address: [address] [place] [address] Performed By: #### 5 8410-2 ####KENDRICK LABORATORYCLIA [id number] [place] [address] [place] RBC (Bld) [#/Vol] 4.36 10*6/uL Normal 3.90-5.20 [facility] Comment on above: Order Comment: Speci men Type: BLOOD SPECIMENOrdering Facility: [facility] Address: [address] [place] [address] Performed By: #### 5 8410-2 ####KENDRICK LABORATORYCLIA [id number] [address] OF [facility] WBC (Bld) [#/Vol] 10.28 10*3/uL Normal 3.70-11.[address] [facility] Comment on above: Order Comment: Speci men Type: BLOOD SPECIMENOrdering Facility: [facility] Address: [address] [place] [address] Performed By: #### 5 8410-2 ####KENDRICK LABORATORYCLIA [id number] [address] [place] Magnesium SerPl-mCncon 12-16 Magnesium [Mass/Vol] 1.8 mg/dL Normal 1.7-2.[address] [facility] Comment on above: Order Comment: Speci men Type: BLOOD SPECIMENOrdering Facility: [facility] Address: [address] [place] [address] Performed By: #### 2 4321-2, 19691-9 ####KENDRICK LABORATORYCLIA [id number] [place] [address] [place] THERAPY NTon 12-16-2024 THERAPY NT HNO ID: [id number] Author: MARC POND OT/Safia Service: ? Author Type: Occupational Therapist Type: Therapy (PT/OT/Speech/Resp) Filed: 12/16/2024 12:16 Note Text: Summary: OT Evaluation Occupational Therapy Evaluation Summary SERVICE DATE: 12/16/2024 SERVICE TIME: 1114 to 1152 ROOM: [id number] OT 6 Clicks Score: 13 DISCHARGE RECOMMENDATIONS [...] With: Facility Care, Other: See Comment Comments: [facility] Assistance Available: 24-Hour Entry To Home: No [...] Muscle Weakness (generalized) TREATMENT INTERVENTIONS Evaluation, Self Correction Management (50044) Timed Code Jesse (more content not included)... [facility] THERAPY NT HNO ID: [id number] Author: AVANI LAURA PT Service: Physical Therapy Author Type: Physical Therapist Type: Therapy (PT/OT/Speech/Resp) Filed: 12/16/2024 11:58 Note Text: Summary: PT evaluation Physical Therapy Evaluation Summary SERVICE DATE: 12/16/2024 SERVICE TIME: 1030 to 1112 ROOM: [id number]- PT 6 Clicks Score: 8 DISCHARGE RECOMMENDATIONS [...] locked w/c and stand by assist at [facility]. frequent falls per chart. non ambulatory at [...] to SNF. She was discharged back to [facility] assisted living where PT saw her [...] Evaluation, Therapeutic Activity (more content not included)... [facility] 12-15-2024 ALL[facility] HNO ID: [id number] Author: ELIAS SOMERS CT Service: Radiology Author Type: Warp Dyeing Vat Tender Type: Allied Health Filed: 12/15/2024 13:29 Note [...] PATIENT PRESENTS WITH AN IMPLANTABLE OR ATTACHED PROFESSOR OF SOCIAL WORK: No RADIOLOGY DEPARTMENT: MR; Exam(s) Completed: Spine: Lumbar spine. Lavender Administered: No PERIPHERAL IV DATA: Not applicable SIGNED BY: Malika Madrid, public address technician December 15, 2024 1:29 PM [facility] Bacteria Ur Culton 5 Bacteria identified Cx Nom (U) CULTURE, URINE: Mixed microbiota, including predominantly: ORGANISM ID: 1 >=100,000 CFU/ml Aerococcus urinae No susceptibility testing done. [facility] Comment on above: Performed By: #### 6 30-4 #### [facility] CLIA [id number] [address] [place] [address] [place] MRI LUMBAR SPINE WO IVCONon 12-15-2024 MRI LUMBAR SPINE WO IVCON * * *Final Report* * * DATE OF EXAM: Dec 15 2024 1:54PM [facility] 0303 - MRI LUMBAR SPINE WO [...] and assume there are 5 lumbar-type vertebrae. Operator Helper: RYAN Transcribe Date/Time: Dec 15 2024 2:11P Dictated by : APRIL MACK MD This examination was interpreted and the report reviewed and electronically signed by: APRIL MACK MD on Dec 15 2024 2:31PM EST [id number] [facility] THERAPY NTon 12-15-2024 THERAPY NT HNO ID: [id number] Author: JOLYNN PATE, PT Service: Physical Therapy Author Type: Physical Therapist Type: Therapy (PT/OT/Speech/Resp) Filed: 12/15/2024 10:57 Note Text: Summary: PT missed visit PHYSICAL THERAPY MISSED VISIT SERVICE DATE: 12/15/2024 SERVICE TIME: 1055 ROOM: [place] [address] Patient not seen due to Clinical Appropriateness. Pt awaiting MRI of lumbar spine and delivery of LSO, will reattempt once complete and as schedule allows. SIGNATURE: Jolynn Pate, PT PATIENT NAME: Tena Cannon DATE: December 15, 2024 TIME: 10:56 AM [facility] THERAPY NT HNO ID: [id number] Author: MARC POND, OT/L Service: ? Author Type: Occupational Therapist Type: Therapy (PT/OT/Speech/Resp) Filed: 12/15/2024 10:27 Note Text: Summary: OT missed visit OCCUPATIONAL THERAPY MISSED VISIT SERVICE DATE: 12/15/2024 SERVICE TIME: 0744 ROOM: [place] [address] Patient not seen due to Clinical Appropriateness. Pt awaiting MRI of lumbar spine. Will re-attempt as able/appropriate. 10:26 addendum: Pt also awaiting delivery of LSO brace. Will follow for MRI results and re-attempt once brace is obtained for safe mobilization and participation in OOB activities. SIGNATURE: Marc Pond OT/Safia PATIENT NAME: Tena Cannon DATE: December 15, 2024 TIME: 7:44 AM Normal [facility] Urinalysis complete panel (U )on 12-14-2024 Bacteria LM.HPF (Urine sed) [#/Area] Many Abnormal None Seen [facility] Comment on above: Order Comment: Speci men Type: URINE SPECIMENOrdering Facility: [facility] Address: [address] [place] [address] Performed By: #### 2 4356-8 ####KENDRICK LABORATORYCLIA [id number] [place] [address] [place] Bilirubin Ql (U) 2+ Abnormal Negative [facility] Comment on above: Order Comment: Speci men Type: URINE SPECIMENOrdering Facility: [facility] Address: [address] [place] [address] Result Comment: Sugg est correlation with clinical findings and serum bilirubin if clinically indicated. Performed By: #### 2 4356-8 ####MERTZON LABORATORYCLIA [id number] [address] [place] Clarity (Unsp spec) Cloudy Abnormal Clear [facility] Comment on above: Order Comment: Speci men Type: URINE SPECIMENOrdering Facility: [facility] Address: [address] [place] [address] Performed By: #### 2 4356-8 ####KENDRICK LABORATORYCLIA [id number] [address] [place] Color (U) Yellow Normal Yellow [facility] Comment on above: Order Comment: Speci men Type: URINE SPECIMENOrdering Facility: [facility] Address: [address] [place] [address] Performed By: #### 2 4356-8 ####KENDRICK LABORATORYCLIA [id number] [address] [place] Glucose Test strip (U) [Mass/Vol] Negative Normal Negative [facility] Comment on above: Order Comment: Speci men Type: URINE SPECIMENOrdering Facility: [facility] Address: [address] [place] [address] Performed By: #### 2 4356-8 ####KENDRICK LABORATORYCLIA [id number] [address] [place] Hemoglobin Ql (U) Trace Abnormal Negative [facility] Comment on above: Order Comment: Speci men Type: URINE SPECIMENOrdering Facility: [facility] Address: [address] [place] [address] Performed By: #### 2 4356-8 ####KENDRICK LABORATORYCLIA [id number] [address] [place] Ketones Ql (U) 3+ Abnormal Negative [facility] Comment on above: Order Comment: Speci men Type: URINE SPECIMENOrdering Facility: [facility] Address: [address] [place] [address] Performed By: #### 2 4356-8 ####KENDRICK LABORATORYCLIA [id number] [address] [place] Leukocyte esterase Test strip Ql (U) 2+ Abnormal Negative [facility] Comment on above: Order Comment: Speci men Type: URINE SPECIMENOrdering Facility: [facility] Address: [address] [place] [address] Performed By: #### 2 4356-8 ####KENDRICK LABORATORYCLIA [id number] [place] [address] [place] Nitrite Ql (U) Negative Normal Negative [facility] Comment on above: Order Comment: Speci men Type: URINE SPECIMENOrdering Facility: [facility] Address: [address] [place] [address] Performed By: #### 2 4356-8 ####KENDRICK LABORATORYCLIA [id number] [address] pH (U) 7.5 [pH] Normal 5.0-8.0 [facility] Comment on above: Order Comment: Speci men Type: URINE SPECIMENOrdering Facility: [facility] Address: [address] [place] [address] Performed By: #### 2 4356-8 ####MERTZON LABORATORYCLIA [id number] [address] Protein (U) [Mass/Vol] 2+ Abnormal Negative [facility] Comment on above: Order Comment: Speci men Type: URINE SPECIMENOrdering Facility: [facility] Address: [address] [place] [address] Performed By: #### 2 4356-8 ####MERTZON LABORATORYCLIA [id number] [address] STATES [facility] RBC LM.HPF (Urine sed) [#/Area] 0-3 /HPF Normal 0-3 /HPF [facility] Comment on above: Order Comment: Speci men Type: URINE SPECIMENOrdering Facility: [facility] Address: [address] [place] [address] Performed By: #### 2 4356-8 ####KENDRICK LABORATORYCLIA [id number] [address] Specific gravity (U) [Rel density] 1.010 Normal 1.005-1.030 [facility] Comment on above: Order Comment: Speci men Type: URINE SPECIMENOrdering Facility: [facility] Address: [address] [place] [address] Performed By: #### 2 4356-8 ####KENDRICK LABORATORYCLIA [id number] [address] Triple phosphate crystals LM.HPF (Urine sed) [#/Area] Moderate Abnormal None Seen [facility] Comment on above: Order Comment: Speci men Type: URINE SPECIMENOrdering Facility: [facility] Address: [address] [place] [address] Performed By: #### 2 4356-8 ####KENDRICK LABORATORYCLIA [id number] [address] Urobilinogen Ql (U) 1.0 EU/dL Normal 0.2-1.0 EU/dL [facility] Comment on above: Order Comment: Speci men Type: URINE SPECIMENOrdering Facility: [facility] Address: [address] [place] [address] Performed By: #### 2 4356-8 ####KENDRICK LABORATORYCLIA [id number] [address] [place] WBC LM.HPF (Urine sed) [#/Area] 6-10 /HPF Abnormal 0-5 /HPF [facility] Comment on above: Order Comment: Speci men Type: URINE SPECIMENOrdering Facility: [facility] Address: [address] [place] [address] Performed By: #### 2 4356-8 ####KENDRICK LABORATORYCLIA [id number] [address] CBC panel Auto (Bld)on 12-13 Erythrocyte distribution width (RBC) [Ratio] 13.0 % Normal 11.5-15.0 [facility] Comment on above: Order Comment: Speci men Type: BLOOD SPECIMENOrdering Facility: [facility] Address: [address] [place] [address] Performed By: #### 5 8410-2 ####KENDRICK LABORATORYCLIA [id number] [address] Hematocrit (Bld) [Volume fraction] 41.1 % Normal 36.0-46.0 [facility] Comment on above: Order Comment: Speci men Type: BLOOD SPECIMENOrdering Facility: [facility] Address: [address] [place] [address] Performed By: #### 5 8410-2 ####KENDRICK LABORATORYCLIA [id number] [address] Hemoglobin (Bld) [Mass/Vol] 13.8 g/dL Normal 11.5-15.5 [facility] Comment on above: Order Comment: Speci men Type: BLOOD SPECIMENOrdering Facility: [facility] Address: [address] [place] [address] Performed By: #### 5 8410-2 ####KENDRICK LABORATORYCLIA [id number] [address] MCH (RBC) [Entitic mass] 31.4 pg Normal 26.0-34.0 [facility] Comment on above: Order Comment: Speci men Type: BLOOD SPECIMENOrdering Facility: [facility] Address: [address] [place] [address] Performed By: #### 5 8410-2 ####KENDRICK LABORATORYCLIA [id number] [address] MCHC (RBC) [Mass/Vol] 33.6 g/dL Normal 30.5-36.0 [facility] Comment on above: Order Comment: Speci men Type: BLOOD SPECIMENOrdering Facility: [facility] Address: [address] [place] [address] Performed By: #### 5 8410-2 ####KENDRICK LABORATORYCLIA [id number] [address] STATES [facility] MCV (RBC) [Entitic vol] 93.6 fL Normal 80.0-100.0 [facility] Comment on above: Order Comment: Speci men Type: BLOOD SPECIMENOrdering Facility: [facility] Address: [address] [place] [address] Performed By: #### 5 8410-2 ####KENDRICK LABORATORYCLIA [id number] [address] Nucleated RBC (Bld) [#/Vol] 10*3/uL Normal <0.01 [facility] Comment on above: Order Comment: Speci men Type: BLOOD SPECIMENOrdering Facility: [facility] Address: [address] [place] [address] Performed By: #### 5 8410-2 ####KENDRICK LABORATORYCLIA [id number] [place] [address] [place] Platelet mean volume (Bld) [Entitic vol] 11.1 fL Normal 9.0-12.7 [facility] Comment on above: Order Comment: Speci men Type: BLOOD SPECIMENOrdering Facility: [facility] Address: [address] [place] [address] Performed By: #### 5 8410-2 ####KENDRICK LABORATORYCLIA [id number] [place] [address] [place] Platelets (Bld) [#/Vol] 238 10*3/uL Normal 150-400 [facility] Comment on above: Order Comment: Speci men Type: BLOOD SPECIMENOrdering Facility: [facility] Address: [address] [place] [address] Performed By: #### 5 8410-2 ####KENDRICK LABORATORYCLIA [id number] [place] [address] [place] RBC (Bld) [#/Vol] 4.39 10*6/uL Normal 3.90-5.20 [facility] Comment on above: Order Comment: Speci men Type: BLOOD SPECIMENOrdering Facility: [facility] Address: [address] [place] [address] Performed By: #### 5 8410-2 ####MERTZON LABORATORYCLIA [id number] [place] [id number] [place] WBC (Bld) [#/Vol] 10.47 10*3/uL Normal 3.70-11.[address] [facility] Comment on above: Order Comment: Speci men Type: BLOOD SPECIMENOrdering Facility: [facility] Address: [address] [place] [address] Performed By: #### 5 8410-2 ####KENDRICK LABORATORYCLIA [id number] [place] [id number] [facility] [place] Comprehensive metabolic 2000 panelon 12-13-2024 Albumin [Mass/Vol] 3.9 g/dL Normal 3.9-4.9 [facility] Comment on above: Order Comment: Speci men Type: BLOOD SPECIMENOrdering Facility: [facility] Address: [address] [place] [address] Performed By: #### 2 4323-8 ####KENDRICK LABORATORYCLIA [id number] [place] [address] [place] ALP [Catalytic activity/Vol] 74 U/L Normal 34-123 [facility] Comment on above: Order Comment: Speci men Type: BLOOD SPECIMENOrdering Facility: [facility] Address: [address] [place] [address] Performed By: #### 2 4323-8 ####KENDRICK LABORATORYCLIA [id number] [address] [place] [facility] ALT [Catalytic activity/Vol] 18 U/L Normal 7-38 [facility] Comment on above: Order Comment: Speci men Type: BLOOD SPECIMENOrdering Facility: [facility] Address: [address] [place] [address] Performed By: #### 2 4323-8 ####KENDRICK LABORATORYCLIA [id number] [address] STATES [facility] Anion gap [Moles/Vol] 11 mmol/L Normal 8-15 [facility] Comment on above: Order Comment: Speci men Type: BLOOD SPECIMENOrdering Facility: [facility] Address: [address] [place] [address] Performed By: #### 2 4323-8 ####KENDRICK LABORATORYCLIA [id number] [address] AST [Catalytic activity/Vol] 25 U/L Normal 13-35 [facility] Comment on above: Order Comment: Speci men Type: BLOOD SPECIMENOrdering Facility: [facility] Address: [address] [place] [address] Performed By: #### 2 4323-8 ####KENDRICK LABORATORYCLIA [id number] [place] [address] [place] Bilirubin [Mass/Vol] 0.7 mg/dL Normal 0.2-1.[address] [facility] Comment on above: Order Comment: Speci men Type: BLOOD SPECIMENOrdering Facility: [facility] Address: [address] [place] [address] Performed By: #### 2 4323-8 ####KENDRICK LABORATORYCLIA [id number] [place] [address] [place] Calcium [Mass/Vol] 10.6 mg/dL High 8.5-10.2 [facility] Comment on above: Order Comment: Speci men Type: BLOOD SPECIMENOrdering Facility: [facility] Address: [address] [place] [address] Performed By: #### 2 4323-8 ####KENDRICK LABORATORYCLIA [id number] [place] [address] [place] Chloride [Moles/Vol] 99 mmol/L Normal 98-[address] [facility] Comment on above: Order Comment: Speci men Type: BLOOD SPECIMENOrdering Facility: [facility] Address: [address] [place] [address] Performed By: #### 2 4323-8 ####KENDRICK LABORATORYCLIA [id number] [place] [address] [place] CO2 [Moles/Vol] 29 mmol/L Normal 22-30 [facility] Comment on above: Order Comment: Speci men Type: BLOOD SPECIMENOrdering Facility: [facility] Address: [address] [place] [address] Performed By: #### 2 4323-8 ####KENDRICK LABORATORYCLIA [id number] [place] [address] [place] Creatinine [Mass/Vol] 0.33 mg/dL Low 0.58-0.96 [facility] Comment on above: Order Comment: Speci men Type: BLOOD SPECIMENOrdering Facility: [facility] Address: [address] [place] [address] Performed By: #### 2 4323-8 ####KENDRICK LABORATORYCLIA [id number] [place] [address] [facility] [place] Creatinine and Glomerular filtration rate.predicted panel (S/P/Bld) 101 mL/min/1.73m??? Normal >=60 [facility] Comment on above: Order Comment: Helena bronson Type: BLOOD SPECIMENOrdering Facility: [facility] Address: [address] [place] [address] Result Comment: Sara mated Glomerular Filtration Rate [...] actual GFR. Performed By: #### 2 4323-8 ####MERTZON LABORATORYCLIA [id number] [place] [address] [place] Glucose [Mass/Vol] 101 mg/dL High 74-99 [facility] Comment on above: Order Comment: Helena bronson Type: BLOOD SPECIMENOrdering Facility: [facility] Address: [address] [place] [address] Result Comment: The [place] [employer] (ADA) provides guidance for [...] Standards of Medical Care in Diabetes 2016, [place] [employer]. Diabetes Care. 2016.39(Suppl 1). Performed By: #### 2 4323-8 ####MERTZON LABORATORYCLIA [id number] [place] [id number] [place] Potassium [Moles/Vol] 3.8 mmol/L Normal 3.7-5.1 [facility] Comment on above: Order Comment: Helena bronson Type: BLOOD SPECIMENOrdering Facility: [facility] Address: [address] [place] [address] Performed By: #### 2 4323-8 ####KENDRICK LABORATORYCLIA [id number] [place] [address] [place] Protein [Mass/Vol] 7.0 g/dL Normal 6.3-8.0 [facility] Comment on above: Order Comment: Speci men Type: BLOOD SPECIMENOrdering Facility: [facility] Address: [address] [place] [address] Performed By: #### 2 4323-8 ####KENDRICK LABORATORYCLIA [id number] [place] [address] [place] Sodium [Moles/Vol] 139 mmol/L Normal 136-144 [facility] Comment on above: Order Comment: Speci men Type: BLOOD SPECIMENOrdering Facility: [facility] Address: [address] [place] [address] Performed By: #### 2 4323-8 ####KENDRICK LABORATORYCLIA [id number] [place] [address] [place] Urea nitrogen [Mass/Vol] 41 mg/dL High 7-21 [facility] Comment on above: Order Comment: Speci men Type: BLOOD SPECIMENOrdering Facility: [facility] Address: [address] [place] [address] Performed By: #### 2 4323-8 ####KENDRICK LABORATORYCLIA [id number] [place] [address] [place] Basic metabolic 2000 panelon 12-12-2024 Anion gap [Moles/Vol] 15 mmol/L Normal 8-15 [facility] Comment on above: Order Comment: Speci men Type: BLOOD SPECIMENOrdering Facility: [facility] Address: [address] [place] [address] Performed By: #### 2 4321-2 ####KENDRICK LABORATORYCLIA [id number] [place] [address] [place] Calcium [Mass/Vol] 10.8 mg/dL High 8.5-10.2 [facility] Comment on above: Order Comment: Speci men Type: BLOOD SPECIMENOrdering Facility: [facility] Address: [address] [place] [address] Performed By: #### 2 4321-2 ####KENDRICK LABORATORYCLIA [id number] [address] [place] Chloride [Moles/Vol] 98 mmol/L Normal 98-[address] [facility] Comment on above: Order Comment: Helena men Type: BLOOD SPECIMENOrdering Facility: [facility] Address: [address] [place] [address] Performed By: #### 2 4321-2 ####KENDRICK LABORATORYCLIA [id number] [address] [place] CO2 [Moles/Vol] 26 mmol/L Normal 22-30 [facility] Comment on above: Order Comment: Helena bronson Type: BLOOD SPECIMENOrdering Facility: [facility] Address: [address] [place] [address] Performed By: #### 2 4321-2 ####KENDRICK LABORATORYCLIA [id number] [address] OF [facility] Creatinine [Mass/Vol] 0.30 mg/dL Low 0.58-0.96 [facility] Comment on above: Order Comment: Speckristi men Type: BLOOD SPECIMENOrdering Facility: [facility] Address: [address] [place] [address] Performed By: #### 2 4321-2 ####KENDRICK LABORATORYCLIA [id number] [address] Creatinine and Glomerular filtration rate.predicted panel (S/P/Bld) 103 mL/min/1.73m??? Normal >=60 [facility] Comment on above: Order Comment: Helena aiyana Type: BLOOD SPECIMENOrdering Facility: [facility] Address: [address] [place] [address] Result Comment: Sara mated Glomerular Filtration Rate [...] Performed By: #### 2 4321-2 ####KENDRICK LABORATORYCLIA [id number] [place] [address] [place] Glucose [Mass/Vol] 126 mg/dL High 74-99 [facility] Comment on above: Order Comment: Helena bronson Type: BLOOD SPECIMENOrdering Facility: [facility] Address: [address] [place] [address] Result Comment: The [place] [employer] (ADA) provides guidance for [...] Standards of Medical Care in Diabetes 2016, [place] [employer]. Diabetes Care. 2016.39(Suppl 1). Performed By: #### 2 4321-2 ####KENDRICK LABORATORYCLIA [id number] [place] [address] [place] Potassium [Moles/Vol] 3.4 mmol/L Low 3.7-5.1 [facility] Comment on above: Order Comment: Helena bronson Type: BLOOD SPECIMENOrdering Facility: [facility] Address: [address] [place] [address] Performed By: #### 2 4321-2 ####KENDRICK LABORATORYCLIA [id number] [place] [id number] [place] Sodium [Moles/Vol] 139 mmol/L Normal 136-144 [facility] Comment on above: Order Comment: Helena bronson Type: BLOOD SPECIMENOrdering Facility: [facility] Address: [address] [place] [address] Performed By: #### 2 4321-2 ####KENDRICK LABORATORYCLIA [id number] [place] [address] [place] Urea nitrogen [Mass/Vol] 37 mg/dL High 7-21 [facility] Comment on above: Order Comment: Speci men Type: BLOOD SPECIMENOrdering Facility: [facility] Address: [address] [place] [address] Performed By: #### 2 4321-2 ####KENDRICK LABORATORYCLIA [id number] [place] [address] [place] CBC W Auto Differential pane l (Bld)on 12-12-2024 Basophils (Bld) [#/Vol] 10*3/uL Normal <0.11 [facility] Comment on above: Order Comment: Speci men Type: BLOOD SPECIMENOrdering Facility: [facility] Address: [address] [place] [address] Performed By: #### 5 7021-8 ####KENDRICK LABORATORYCLIA [id number] [place] [address] [place] Basophils/100 WBC (Bld) 0.1 % Normal [facility] Comment on above: Order Comment: Speci men Type: BLOOD SPECIMENOrdering Facility: [facility] Address: [address] [place] [address] Performed By: #### 5 7021-8 ####KENDRICK LABORATORYCLIA [id number] [place] [address] [place] Differential cell count method Nom (Bld) Auto Normal [facility] Comment on above: Order Comment: Speci men Type: BLOOD SPECIMENOrdering Facility: [facility] Address: [address] [place] [address] Performed By: #### 5 7021-8 ####KENDRICK LABORATORYCLIA [id number] [place] [address] [place] Eosinophils (Bld) [#/Vol] 10*3/uL Normal <0.46 [facility] Comment on above: Order Comment: Speci men Type: BLOOD SPECIMENOrdering Facility: [facility] Address: [address] [place] [address] Performed By: #### 5 7021-8 ####KENDRICK LABORATORYCLIA [id number] [place] [address] [place] Eosinophils/100 WBC (Bld) 0.0 % Normal [facility] Comment on above: Order Comment: Speci men Type: BLOOD SPECIMENOrdering Facility: [facility] Address: [address] [place] [address] Performed By: #### 5 7021-8 ####KENDRICK LABORATORYCLIA [id number] [place] [address] [place] Erythrocyte distribution width (RBC) [Ratio] 12.7 % Normal 11.5-15.0 [facility] Comment on above: Order Comment: Speci men Type: BLOOD SPECIMENOrdering Facility: [facility] Address: [address] [place] [address] Performed By: #### 5 7021-8 ####KENDRICK LABORATORYCLIA [id number] [place] [address] [place] Hematocrit (Bld) [Volume fraction] 40.3 % Normal 36.0-46.0 [facility] Comment on above: Order Comment: Speci men Type: BLOOD SPECIMENOrdering Facility: [facility] Address: [address] [place] [address] Performed By: #### 5 7021-8 ####KENDRICK LABORATORYCLIA [id number] [place] [address] [place] Hemoglobin (Bld) [Mass/Vol] 13.9 g/dL Normal 11.5-15.5 [facility] Comment on above: Order Comment: Speci men Type: BLOOD SPECIMENOrdering Facility: [facility] Address: [address] [place] [address] Performed By: #### 5 7021-8 ####KENDRICK LABORATORYCLIA [id number] [place] [address] [place] Immature granulocytes (Bld) [#/Vol] 0.06 10*3/uL Normal <0.10 [facility] Comment on above: Order Comment: Speci men Type: BLOOD SPECIMENOrdering Facility: [facility] Address: [address] [place] [address] Performed By: #### 5 7021-8 ####KENDRICK LABORATORYCLIA [id number] [place] [address] [place] Immature granulocytes/100 WBC (Bld) 0.5 % Normal [facility] Comment on above: Order Comment: Speci men Type: BLOOD SPECIMENOrdering Facility: [facility] Address: [address] [place] [address] Performed By: #### 5 7021-8 ####KENDRICK LABORATORYCLIA [id number] [address] Lymphocytes (Bld) [#/Vol] 0.71 10*3/uL Low 1.00-4.00 [facility] Comment on above: Order Comment: Speci men Type: BLOOD SPECIMENOrdering Facility: [facility] Address: [address] [place] [address] Performed By: #### 5 7021-8 ####KENDRICK LABORATORYCLIA [id number] [address] Lymphocytes/100 WBC (Bld) 5.7 % Normal [facility] Comment on above: Order Comment: Speci men Type: BLOOD SPECIMENOrdering Facility: [facility] Address: [address] [place] [address] Performed By: #### 5 7021-8 ####KENDRICK LABORATORYCLIA [id number] [address] MCH (RBC) [Entitic mass] 31.7 pg Normal 26.0-34.0 [facility] Comment on above: Order Comment: Speci men Type: BLOOD SPECIMENOrdering Facility: [facility] Address: [address] [place] [address] Performed By: #### 5 7021-8 ####KENDRICK LABORATORYCLIA [id number] [address] MCHC (RBC) [Mass/Vol] 34.5 g/dL Normal 30.5-36.0 [facility] Comment on above: Order Comment: Speci men Type: BLOOD SPECIMENOrdering Facility: [facility] Address: [address] [place] [address] Performed By: #### 5 7021-8 ####KENDRICK LABORATORYCLIA [id number] [address] MCV (RBC) [Entitic vol] 91.8 fL Normal 80.0-100.0 [facility] Comment on above: Order Comment: Speci men Type: BLOOD SPECIMENOrdering Facility: [facility] Address: [facility] [place] [address] Performed By: #### 5 7021-8 ####KENDRICK LABORATORYCLIA [id number] [place] [address] [place] Monocytes (Bld) [#/Vol] 1.20 10*3/uL High <0.87 [facility] Comment on above: Order Comment: Speci men Type: BLOOD SPECIMENOrdering Facility: [facility] Address: [address] [place] [address] Performed By: #### 5 7021-8 ####KENDRICK LABORATORYCLIA [id number] [address] [place] Monocytes/100 WBC (Bld) 9.6 % Normal [facility] Comment on above: Order Comment: Speci men Type: BLOOD SPECIMENOrdering Facility: [facility] Address: [address] [place] [address] Performed By: #### 5 7021-8 ####KENDRICK LABORATORYCLIA [id number] [place] [address] [place] Neutrophils (Bld) [#/Vol] 10.52 10*3/uL High 1.45-7.50 [facility] Comment on above: Order Comment: Speci men Type: BLOOD SPECIMENOrdering Facility: [facility] Address: [address] [place] [address] Performed By: #### 5 7021-8 ####KENDRICK LABORATORYCLIA [id number] [place] [address] [place] Neutrophils/100 WBC (Bld) 84.1 % Normal [facility] Comment on above: Order Comment: Speci men Type: BLOOD SPECIMENOrdering Facility: [facility] Address: [address] [place] [address] Performed By: #### 5 7021-8 ####KENDRICK LABORATORYCLIA [id number] [place] [address] [place] Nucleated RBC (Bld) [#/Vol] 10*3/uL Normal <0.01 [facility] Comment on above: Order Comment: Speci men Type: BLOOD SPECIMENOrdering Facility: [facility] Address: [address] [place] [address] Performed By: #### 5 7021-8 ####KENDRICK LABORATORYCLIA [id number] [place] [address] [place] Nucleated RBC/100 WBC (Bld) [Ratio] 0.0 /100 WBC Normal [facility] Comment on above: Order Comment: Speci men Type: BLOOD SPECIMENOrdering Facility: [facility] Address: [address] [place] [address] Performed By: #### 5 7021-8 ####KENDRICK LABORATORYCLIA [id number] [place] [address] [place] Platelet mean volume (Bld) [Entitic vol] 10.5 fL Normal 9.0-12.7 [facility] Comment on above: Order Comment: Speci men Type: BLOOD SPECIMENOrdering Facility: [facility] Address: [address] [place] [address] Performed By: #### 5 7021-8 ####KENDRICK LABORATORYCLIA [id number] [place] [address] [place] Platelets (Bld) [#/Vol] 239 10*3/uL Normal 150-400 [facility] Comment on above: Order Comment: Speci men Type: BLOOD SPECIMENOrdering Facility: [facility] Address: [address] [place] [address] Performed By: #### 5 7021-8 ####KENDRICK LABORATORYCLIA [id number] [place] [address] [place] RBC (Bld) [#/Vol] 4.39 10*6/uL Normal 3.90-5.20 [facility] Comment on above: Order Comment: Speci men Type: BLOOD SPECIMENOrdering Facility: [facility] Address: [address] [place] [address] Performed By: #### 5 7021-8 ####KENDRICK LABORATORYCLIA [id number] [place] [address] [place] WBC (Bld) [#/Vol] 12.50 10*3/uL High 3.70-11.[address] [facility] Comment on above: Order Comment: Speci men Type: BLOOD SPECIMENOrdering Facility: [facility] Address: [address] [place] [address] Performed By: #### 5 7021-8 ####MERTZON LABORATORYCLIA [id number] [place] [address] [place] ED NOTEon 12-12-2024 ED NOTE HNO ID: [id number] Author: JESSENIA PARIKH RN Service: ? Author Type: Registered Nurse Type: ED Notes Filed: 12/12/2024 11:39 Note Text: Bed: ED-19 Expected date: Expected time: Means of arrival: [place] [facility]S Comments: 84 F Needs SNF placement Fell 8 days ago Normal [facility] ED PROV NOTEon 12-12-2024 ED PROV NOTE HNO ID: [id number] Author: TARA ENCARNACION MD Service: Emergency Medicine [...] to SNF. She was discharged back to [facility] assisted living where PT saw her [...] for couple days. She went back to [facility] in [place] to her assisted living facility at the [facility]. She had physical therapy at today. She [...] vessels break Novocain [Procaine * Intolerance headaches Amanda-3 Fish Oil [O* Intolerance bleeding in eye [...] back pa (more content not included)... Normal [facility] HISTORY PHYSICALon HISTORY PHYSICAL HNO ID: [id number] Author: GEORGINA RICHARDSON MD Service: Hospital Medicine Author Type: Physician Type: H&P Filed: 12/12/2024 22:35 Note Text: DEPARTMENT OF HOSPITAL MEDICINE HISTORY AND PHYSICAL EXAM SERVICE DATE: 12/12/2024 SERVICE TIME: 4:27 PM Primary Care Physician: Sahra Guy MD NIGHT AND WEEKEND COVERAGE: [facility] COVERAGE: Days: [phone], please page attending physician. Nights: [phone], please page [facility] Night coverage pager [phone]. 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 Patient is accompanied by her daughter. Per daughter, patient has had numerous falls since August of 2024. Most recent fall was on 12/04/2024. She was admitted to [facility]. At this time, CT L-spine and abdominal [...] take care of her. Daughter has called [facility] - transitional care have beds available. Last BM on Thursday12/04/2024. Patient is not eating well because of nausea. She also states that she has a right sided hernia that causes intermittent pain but none right now. She denies chest pain, SOB, dizziness, abdominal pain/distension - other negative ROS found below. The history is provided by the patient and a relative. No school speech language pathologist was used. PAST MEDICAL HISTORY Diagnosis Date [...] vessels break Novocain [Procaine * Intolerance headaches Amanda-3 Fish Oil [O* Intolerance bleeding in eye Advil [Ibuprofen] Intolerance Makes capillary blood vessels bread Asa [Salicylates] Intolerance Makes capillary blood vessels break Revi (more content not included)... Normal [facility] CBC panel Auto (Bld)on 12-10 Erythrocyte distribution width (RBC) [Ratio] 12.4 % Normal 11.5-15.0 [facility] Comment on above: Order Comment: Helena bronson Type: BLOOD SPECIMENOrdering Facility: [facility] Address: [address] [place] [address] Performed By: #### 5 8410-2 ####MERTZON LABORATORYCLIA [id number] [place] [address] [place] Hematocrit (Bld) [Volume fraction] 40.0 % Normal 36.0-46.0 [facility] Comment on above: Order Comment: Helena bronson Type: BLOOD SPECIMENOrdering Facility: [facility] Address: [address] [place] [address] Performed By: #### 5 8410-2 ####MERTZON LABORATORYCLIA [id number] [place] [address] [place] Hemoglobin (Bld) [Mass/Vol] 13.8 g/dL Normal 11.5-15.5 [facility] Comment on above: Order Comment: Speci men Type: BLOOD SPECIMENOrdering Facility: [facility] Address: [address] [place] [address] Performed By: #### 5 8410-2 ####KENDRICK LABORATORYCLIA [id number] [address] MCH (RBC) [Entitic mass] 31.7 pg Normal 26.0-34.0 [facility] Comment on above: Order Comment: Speci men Type: BLOOD SPECIMENOrdering Facility: [facility] Address: [address] [place] [address] Performed By: #### 5 8410-2 ####KENDRICK LABORATORYCLIA [id number] [address] MCHC (RBC) [Mass/Vol] 34.5 g/dL Normal 30.5-36.0 [facility] Comment on above: Order Comment: Speci men Type: BLOOD SPECIMENOrdering Facility: [facility] Address: [address] [place] [address] Performed By: #### 5 8410-2 ####KENDRICK LABORATORYCLIA [id number] [address] MCV (RBC) [Entitic vol] 91.7 fL Normal 80.0-100.0 [facility] Comment on above: Order Comment: Speci men Type: BLOOD SPECIMENOrdering Facility: [facility] Address: [address] [place] [address] Performed By: #### 5 8410-2 ####KENDRICK LABORATORYCLIA [id number] [address] Nucleated RBC (Bld) [#/Vol] 10*3/uL Normal <0.01 [facility] Comment on above: Order Comment: Speci men Type: BLOOD SPECIMENOrdering Facility: [facility] Address: [address] [place] [address] Performed By: #### 5 8410-2 ####KENDRICK LABORATORYCLIA [id number] [place] [address] [place] Platelet mean volume (Bld) [Entitic vol] 10.9 fL Normal 9.0-12.7 [facility] Comment on above: Order Comment: Speci men Type: BLOOD SPECIMENOrdering Facility: [facility] Address: [address] [place] [address] Performed By: #### 5 8410-2 ####[facility] LABORATORYCLIA [id number] [place] [address] [place] Platelets (Bld) [#/Vol] 205 10*3/uL Normal 150-400 [facility] Comment on above: Order Comment: Speci men Type: BLOOD SPECIMENOrdering Facility: [facility] Address: [address] [place] [address] Performed By: #### 5 8410-2 ####[facility] LABORATORYCLIA [id number] [place] [address] [place] RBC (Bld) [#/Vol] 4.36 10*6/uL Normal 3.90-5.20 [facility] Comment on above: Order Comment: Speci men Type: BLOOD SPECIMENOrdering Facility: [facility] Address: [address] [place] [address] Performed By: #### 5 8410-2 ####[facility] LABORATORYCLIA [id number] [place] [address] [place] WBC (Bld) [#/Vol] 7.99 10*3/uL Normal 3.70-11.00 [facility] Comment on above: Order Comment: Speci men Type: BLOOD SPECIMENOrdering Facility: [facility] Address: [address] [place] [address] Performed By: #### 5 8410-2 ####[facility] LABORATORYCLIA [id number] [place] [id number] [facility] [place] CNCOon 12-10-2024 CNCO Letter Text Normal [facility] CNDSon 12-10-2024 CNDS HNO ID: [id number] Author: DIANE WILSON MD Service: Hospital Medicine [...] HOSPITALIZATION: Neurology: Treatment Team: Primary Service: 1, [facility] REASON FOR HOSPITALIZATION: weakness, back pain FINAL DIAGNOSIS: sciatica Active Hospital Problems Diagnosis POA Frequent falls Yes Hypertension Unknown Fall at snf Yes BMI 37.0-37.9, adult Yes Dysphagia Yes [...] vessels break Novocain [Procaine * Intolerance headaches Amanda-3 Fish Oil [O* Intolerance bleeding in eye [...] TAKE 1 (more content not included)... Normal [facility] Comprehensive metabolic 2000 panelon 12-10-2024 Albumin [Mass/Vol] 3.7 g/dL Low 3.9-4.9 [facility] Comment on above: Order Comment: Speci men Type: BLOOD SPECIMENOrdering Facility: [facility] Address: [address] [place] [address] Performed By: #### 2 4323-8 ####[facility] LABORATORYCLIA [id number] [place] [address] [place] ALP [Catalytic activity/Vol] 69 U/L Normal 34-123 [facility] Comment on above: Order Comment: Speci men Type: BLOOD SPECIMENOrdering Facility: [facility] Address: [address] [place] [address] Performed By: #### 2 4323-8 ####[facility] LABORATORYCLIA [id number] [address] ALT [Catalytic activity/Vol] 12 U/L Normal 7-38 [facility] Comment on above: Order Comment: Speci men Type: BLOOD SPECIMENOrdering Facility: [facility] Address: [address] [place] [address] Performed By: #### 2 4323-8 ####[facility] LABORATORYCLIA [id number] [address] Anion gap [Moles/Vol] 10 mmol/L Normal 8-15 [facility] Comment on above: Order Comment: Speci men Type: BLOOD SPECIMENOrdering Facility: [facility] Address: [address] [place] [address] Performed By: #### 2 4323-8 ####[facility] LABORATORYCLIA [id number] [address] STATES [facility] AST [Catalytic activity/Vol] 17 U/L Normal 13-35 [facility] Comment on above: Order Comment: Speci men Type: BLOOD SPECIMENOrdering Facility: [facility] Address: [address] [place] [address] Performed By: #### 2 4323-8 ####[facility] LABORATORYCLIA [id number] [place] [address] [place] Bilirubin [Mass/Vol] 0.5 mg/dL Normal 0.2-1.[address] [facility] Comment on above: Order Comment: Speci men Type: BLOOD SPECIMENOrdering Facility: [facility] Address: [address] [place] [address] Performed By: #### 2 4323-8 ####KEN[facility] LABORATORYCLIA [id number] [place] [address] [place] Calcium [Mass/Vol] 9.7 mg/dL Normal 8.5-10.2 [facility] Comment on above: Order Comment: Speci men Type: BLOOD SPECIMENOrdering Facility: [facility] Address: [address] [place] [address] Performed By: #### 2 4323-8 ####KEN[facility] LABORATORYCLIA [id number] [address] [place] Chloride [Moles/Vol] 99 mmol/L Normal 98-[address] [facility] Comment on above: Order Comment: Speci men Type: BLOOD SPECIMENOrdering Facility: [facility] Address: [address] [place] [address] Performed By: #### 2 4323-8 ####[facility] LABORATORYCLIA [id number] [place] [address] [place] CO2 [Moles/Vol] 28 mmol/L Normal 22-30 [facility] Comment on above: Order Comment: Speci men Type: BLOOD SPECIMENOrdering Facility: [facility] Address: [address] [place] [address] Performed By: #### 2 4323-8 ####KEN[facility] LABORATORYCLIA [id number] [place] [address] [place] Creatinine [Mass/Vol] 0.34 mg/dL Low 0.58-0.96 [facility] Comment on above: Order Comment: Speci men Type: BLOOD SPECIMENOrdering Facility: [facility] Address: [address] [place] [address] Performed By: #### 2 4323-8 ####[facility] LABORATORYCLIA [id number] [place] [address] [place] Creatinine and Glomerular filtration rate.predicted panel (S/P/Bld) 100 mL/min/1.73m??? Normal >=60 [facility] Comment on above: Order Comment: Helena bronson Type: BLOOD SPECIMENOrdering Facility: [facility] Address: [address] [place] [address] Result Comment: Sara mated Glomerular Filtration Rate [...] Performed By: #### 2 4323-8 ####[facility] LABORATORYCLIA [id number] [place] [id number] [place] Glucose [Mass/Vol] 95 mg/dL Normal 74-99 [facility] Comment on above: Order Comment: Helena bronson Type: BLOOD SPECIMENOrdering Facility: [facility] Address: [address] [place] [address] Result Comment: The [place] [employer] (ADA) provides guidance for [...] Standards of Medical Care in Diabetes 2016, [place] [employer]. Diabetes Care. 2016.39(Suppl 1). Performed By: #### 2 4323-8 ####[facility] LABORATORYCLIA [id number] [place] [id number] [place] Potassium [Moles/Vol] 3.6 mmol/L Low 3.7-5.1 [facility] Comment on above: Order Comment: Helena bronson Type: BLOOD SPECIMENOrdering Facility: [facility] Address: [address] [place] [address] Performed By: #### 2 4323-8 ####[facility] LABORATORYCLIA [id number] [address] Protein [Mass/Vol] 6.9 g/dL Normal 6.3-8.0 [facility] Comment on above: Order Comment: Speci men Type: BLOOD SPECIMENOrdering Facility: [facility] Address: [address] [place] [address] Performed By: #### 2 4323-8 ####[facility] LABORATORYCLIA [id number] [address] Sodium [Moles/Vol] 137 mmol/L Normal 136-144 [facility] Comment on above: Order Comment: Speci men Type: BLOOD SPECIMENOrdering Facility: [facility] Address: [address] [place] [address] Performed By: #### 2 4323-8 ####[facility] LABORATORYCLIA [id number] [address] STATES [facility] Urea nitrogen [Mass/Vol] 12 mg/dL Normal 7-21 [facility] Comment on above: Order Comment: Speci men Type: BLOOD SPECIMENOrdering Facility: [facility] Address: [address] [place] [address] Performed By: #### 2 4323-8 ####[facility] LABORATORYCLIA [id number] [address] THERAPY NTon 12-10-2024 THERAPY NT HNO ID: [id number] Author: MARCELINO JARQUIN, PT Service: Physical Therapy Author Type: Physical Therapist Type: Therapy (PT/OT/Speech/Resp) Filed: 12/10/2024 13:12 Note Text: PHYSICAL THERAPY MISSED VISIT SERVICE DATE: 12/10/2024 SERVICE TIME: 1137 ROOM: [id number] Patient not seen due to Declined to [...] will go home, not rehab. SIGNATURE: Marcelino Jarquin PT PATIENT NAME: Tena Cannon DATE: December 10, 2024 TIME: 1:06 PM [facility] THERAPY NT HNO ID: [id number] Author: TENA LEY CCC-PASSENGER INTERLINE CLERK Service: Speech/Swallow Author Type: Speech Language Pathologist Type: Therapy (PT/OT/Speech/Resp) Filed: 12/10/2024 09:25 Note Text: Summary: Speech Speech Therapy Clinical Swallow Evaluation SERVICE DATE: 12/10/2024 SERVICE TIME: 829 to 909 ROOM: [place] [address] IMPRESSION Swallow Deficits Identified / Suspected: Oral [...] Dysphagia, oral phase TREATMENT INTERVENTIONS Dysphagia Therapy (31535), Clinical Swallow Evaluation (86027) Skilled Treatment Time (minutes): 40 TRAINING AND [...] education, Pt demonstrate frequent re-positioning) 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: PASSENGER INTERLINE CLERK Fed Patient Consistencies Presented: Thin Liquids IDDSI [...] meals., Oral Care before and after meals [place] Swallow Protocol: Fail Fail: Patient stopping prior to completion (small sips) Suspected Esophageal Deficits: PMHx: GERD (more content not included)... Normal [facility] ACETYLCHOLINE REC BINDING AB on 12-09-2024 ACETYLCHOLINE BINDING, QUAL Negative Normal Negative [facility] Comment on above: Order Comment: Speci men Type: BLOOD SPECIMENOrdering Facility: [facility] Address: [address] [place] [address] Result Comment: Anti -acetylcholine receptor binding antibody test is used as an aid in diagnosis of myasthenia gravis. A negative result cannot exclude myasthenia gravis. Clinical correlation is required. Performed By: #### A CHRAB ####[facility] LABCLIA [id number] [place] [address] [place] Acetylcholine receptor binding Ab (S) [Moles/Vol] 0.03 nmol/L Normal <0.21 [facility] Comment on above: Order Comment: Speci men Type: BLOOD SPECIMENOrdering Facility: [facility] Address: [address] [place] [address] Performed By: #### A CHRAB ####[facility] LABCLIA [id number] [place] [address] [place] ALLIED HEALTHon 12-09-2024 ALLIED HEALTH HNO ID: [id number] Author: JONATHAN MARSHALL Tech Service: Radiology Author Type: Warp Dyeing Vat Tender Type: Allied Health Filed: 12/09/2024 16:52 Note [...] PATIENT PRESENTS WITH AN IMPLANTABLE OR ATTACHED PROFESSOR OF SOCIAL WORK: No RADIOLOGY DEPARTMENT: Ultrasound PERIPHERAL IV DATA: Not applicable SIGNED BY: David Bone December 09, 2024 4:51 PM [facility] ALLIED HEALTH HNO ID: [id number] Author: SRIKANTH MEDINA Tech Service: ? Author Type: Warp Dyeing Vat Tender Type: Allied Health Filed: 12/09/2024 15:22 Note [...] PATIENT PRESENTS WITH AN IMPLANTABLE OR ATTACHED PROFESSOR OF SOCIAL WORK: No RADIOLOGY DEPARTMENT: General X-ray: Exam(s) Completed: Pelvis X-Ray: Pelvis with Hip Right and Pelvis inlet/outlet PERIPHERAL IV DATA: Not applicable SIGNED BY: David Martinez December 09, 2024 3:21 PM [facility] CBC panel Auto (Bld)on 12-09 Erythrocyte distribution width (RBC) [Ratio] 12.5 % Normal 11.5-15.0 [facility] Comment on above: Order Comment: Speci men Type: BLOOD SPECIMENOrdering Facility: [facility] Address: [address] [place] [address] Performed By: #### 5 8410-2 ####[facility] LABORATORYCLIA [id number] [address] Hematocrit (Bld) [Volume fraction] 37.0 % Normal 36.0-46.0 [facility] Comment on above: Order Comment: Speci men Type: BLOOD SPECIMENOrdering Facility: [facility] Address: [address] [place] [address] Performed By: #### 5 8410-2 ####[facility] LABORATORYCLIA [id number] [address] Hemoglobin (Bld) [Mass/Vol] 12.9 g/dL Normal 11.5-15.5 [facility] Comment on above: Order Comment: Speci men Type: BLOOD SPECIMENOrdering Facility: [facility] Address: [address] [place] [address] Performed By: #### 5 8410-2 ####[facility] LABORATORYCLIA [id number] [address] MCH (RBC) [Entitic mass] 32.2 pg Normal 26.0-34.0 [facility] Comment on above: Order Comment: Speci men Type: BLOOD SPECIMENOrdering Facility: [facility] Address: [address] [place] [address] Performed By: #### 5 8410-2 ####[facility] LABORATORYCLIA [id number] [address] MCHC (RBC) [Mass/Vol] 34.9 g/dL Normal 30.5-36.0 [facility] Comment on above: Order Comment: Speci men Type: BLOOD SPECIMENOrdering Facility: [facility] Address: [address] [place] [address] Performed By: #### 5 8410-2 ####KEN[facility] LABORATORYCLIA [id number] [address] MCV (RBC) [Entitic vol] 92.3 fL Normal 80.0-100.0 [facility] Comment on above: Order Comment: Speci men Type: BLOOD SPECIMENOrdering Facility: [facility] Address: [address] [place] [address] Performed By: #### 5 8410-2 ####[facility] LABORATORYCLIA [id number] [place] [address] [place] Nucleated RBC (Bld) [#/Vol] 10*3/uL Normal <0.01 [facility] Comment on above: Order Comment: Speci men Type: BLOOD SPECIMENOrdering Facility: [facility] Address: [address] [place] [address] Performed By: #### 5 8410-2 ####[facility] LABORATORYCLIA [id number] [place] [address] [place] Platelet mean volume (Bld) [Entitic vol] 10.8 fL Normal 9.0-12.7 [facility] Comment on above: Order Comment: Speci men Type: BLOOD SPECIMENOrdering Facility: [facility] Address: [address] [place] [address] Performed By: #### 5 8410-2 ####KENDRICK LABORATORYCLIA [id number] [address] [place] Platelets (Bld) [#/Vol] 184 10*3/uL Normal 150-400 [facility] Comment on above: Order Comment: Speci men Type: BLOOD SPECIMENOrdering Facility: [facility] Address: [address] [place] [address] Performed By: #### 5 8410-2 ####[facility]ICK LABORATORYCLIA [id number] [place] [address] [place] RBC (Bld) [#/Vol] 4.01 10*6/uL Normal 3.90-5.20 [facility] Comment on above: Order Comment: Speci men Type: BLOOD SPECIMENOrdering Facility: [facility] Address: [address] [place] [address] Performed By: #### 5 8410-2 ####KENDRICK LABORATORYCLIA [id number] [place] [address] [place] WBC (Bld) [#/Vol] 6.41 10*3/uL Normal 3.70-11.00 [facility] Comment on above: Order Comment: Speci men Type: BLOOD SPECIMENOrdering Facility: [facility] Address: [address] [place] [address] Performed By: #### 5 8410-2 ####[facility] LABORATORYCLIA [id number] [place] [address] [place] CONSULTon 12-09-2024 CONSULT HNO ID: [id number] Author: MILI MANZANARES MD Service: Neurology General Author Type: Physician Type: Consults Filed: 12/09/2024 16:28 Note Text: The Teleneurologist or LULI is available from 8 am to 5 pm on weekdays. On weekends, at [place] and [place], the Teleneurologist or LULI is available from 8 am to 5 pm, [facility] 8 am to 12 pm, [facility] 1 pm to 5 pm, [facility] 8 am to 12 pm, [facility] 1 pm to 5 pm. Statutory holidays do not have teleneuro coverage. [facility]: During Off hours for Teleneurology please page (not call) [facility] [phone] emr implementation specialist for concerns. [facility]: During Off hours for Teleneurology please page (not call) [facility] [phone] emr implementation specialist for concerns. [facility]: There is no off-hours coverage for Teleneurology. NEUROLOGY CONSULTATION Thank you for the consultation request. Name: Tena Cannon Age: [age] year old Gender: female Chief Complaint:Fall (Sent in from pcp to see if kidney infx or uti.had fall sun. Been weak, tired, nausea and back pain since fall Thursday from [facility] Admission Date: 12/08/2024 Consult Requested By: , [...] CPAP Fal (more content not included)... Normal [facility] CRP SerPl-mCncon 12-09-2024 CRP [Mass/Vol] 2.1 mg/dL High <0.9 [facility] Comment on above: Order Comment: Speci men Type: BLOOD SPECIMENOrdering Facility: [facility] Address: [address] [place] [address] Performed By: #### 2 4362-6, 1987-12 ####[facility] LABORATORYCLIA [id number] [place] [address] [facility] [place] ECG COMPLETEon 12-09-2024 ECG COMPLETE Ventricular Rate : 8 2 BPM Atrial Rate : 82 BPM P-R Interval : 206 ms QRS Duration : 86 ms Q-T Interval : 350 ms QTC Calculation(Bazett) : 408 ms Calculated P Sperry : 49 degrees Calculated R Sperry : -10 degrees Calculated T Sperry : 35 degrees NORMAL SINUS RHYTHM WITH SINUS ARRHYTHMIA NORMAL ECG WHEN COMPARED WITH ECG OF 29-Jul-2018 10:48, NO SIGNIFICANT CHANGE WAS FOUND Confirmed by WOLF MUNOZ MD ([id number]) on 12/09/2024 5:41:23 PM NAME : TENA CANNON PID : [id number] : 1940 Gender : Female Race : ORD : [id number] Procedure Date : Dec 09 2024 01:11:37 Edit Date : Dec 09 2024 17:41:24 Diagnosis: NORMAL SINUS RHYTHM WITH SINUS ARRHYTHMIA NORMAL ECG WHEN COMPARED WITH ECG OF 29-Jul-2018 10:48, NO SIGNIFICANT CHANGE WAS FOUND Confirmed by WOLF MUNOZ MD ([id number]) on 12/09/2024 5:41:23 PM Test Reason : Arrhythmia Location : 5 : 3S 0323 Overread By : WOLF MUNOZ MD Edited By : WOLF MUNOZ MD Referred By : , Acquired by : Elton oWody, Normal [facility] Renal function 2000 panelon 12-09-2024 Albumin [Mass/Vol] 3.6 g/dL Low 3.9-4.9 [facility] Comment on above: Order Comment: Speci men Type: BLOOD SPECIMENOrdering Facility: [facility] Address: [address] [place] [address] Performed By: #### 2 43609-08, 1987-12 ####[facility] LABORATORYCLIA [id number] [place] [address] [place] Anion gap [Moles/Vol] 12 mmol/L Normal 8-15 [facility] Comment on above: Order Comment: Speci men Type: BLOOD SPECIMENOrdering Facility: [facility] Address: [address] [place] [address] Performed By: #### 2 43609-08, 1987-12 ####[facility] LABORATORYCLIA [id number] [place] [address] [place] Calcium [Mass/Vol] 9.5 mg/dL Normal 8.5-10.2 [facility] Comment on above: Order Comment: Speci men Type: BLOOD SPECIMENOrdering Facility: [facility] Address: [address] [place] [address] Performed By: #### 2 43609-08, 1987-12 ####[facility] LABORATORYCLIA [id number] [place] [address] [place] Chloride [Moles/Vol] 100 mmol/L Normal 98-[address] [facility] Comment on above: Order Comment: Speci men Type: BLOOD SPECIMENOrdering Facility: [facility] Address: [address] [place] [address] Performed By: #### 2 43609-08, 1987-12 ####[facility] LABORATORYCLIA [id number] [place] [address] [place] CO2 [Moles/Vol] 23 mmol/L Normal 22-30 [facility] Comment on above: Order Comment: Helena bronson Type: BLOOD SPECIMENOrdering Facility: [facility] Address: [address] [place] [address] Performed By: #### 2 43626, 1987-12 ####[facility] LABORATORYCLIA [id number] [place] [id number] [place] Creatinine [Mass/Vol] 0.31 mg/dL Low 0.58-0.96 [facility] Comment on above: Order Comment: Helena bronson Type: BLOOD SPECIMENOrdering Facility: [facility] Address: [address] [place] [address] Performed By: #### 2 43609-08, 1987-12 ####[facility] LABORATORYCLIA [id number] [address] Creatinine and Glomerular filtration rate.predicted panel (S/P/Bld) 103 mL/min/1.73m??? Normal >=60 [facility] Comment on above: Order Comment: Helena bronson Type: BLOOD SPECIMENOrdering Facility: [facility] Address: [address] [place] [address] Result Comment: Sara mated Glomerular Filtration Rate [...] reflect actual GFR. Performed By: #### 2 4362-6, 1987-12 ####[facility] LABORATORYCLIA [id number] [place] [id number] [place] Glucose [Mass/Vol] 121 mg/dL High 74-99 [facility] Comment on above: Order Comment: Helena bronson Type: BLOOD SPECIMENOrdering Facility: [facility] Address: [address] [place] [address] Result Comment: The [place] [employer] (ADA) provides guidance for [...] Standards of Medical Care in Diabetes 2016, [place] [employer]. Diabetes Care. 2016.39(Suppl 1). Performed By: #### 2 43609-08, 1987-12 ####[facility] LABORATORYCLIA [id number] [place] [address] [place] Phosphate [Mass/Vol] 2.8 mg/dL Normal 2.7-4.[address] [facility] Comment on above: Order Comment: Helena bronson Type: BLOOD SPECIMENOrdering Facility: [facility] Address: [address] [place] [address] Performed By: #### 2 4362-01, 1987-12 ####[facility] LABORATORYCLIA [id number] [place] [address] [place] Potassium [Moles/Vol] 3.8 mmol/L Normal 3.7-5.1 [facility] Comment on above: Order Comment: Helena bronson Type: BLOOD SPECIMENOrdering Facility: [facility] Address: [address] [place] [address] Performed By: #### 2 43609-08, 1987-12 ####[facility] LABORATORYCLIA [id number] [place] [id number] [place] Sodium [Moles/Vol] 135 mmol/L Low 136-144 [facility] Comment on above: Order Comment: Helena bronson Type: BLOOD SPECIMENOrdering Facility: [facility] Address: [address] [place] [address] Performed By: #### 2 43609-08, 1987-12 ####[facility] LABORATORYCLIA [id number] [place] [id number] [place] Urea nitrogen [Mass/Vol] 15 mg/dL Normal 7-21 [facility] Comment on above: Order Comment: Speci men Type: BLOOD SPECIMENOrdering Facility: [facility] Address: [address], [place] [address] Performed By: #### 2 4362-6, 1987-12 ####[facility] LABORATORYCLIA [id number] [place] [address] [facility] THERAPY NTon 12-09-2024 THERAPY NT HNO ID: [id number] Author: WHIT MONSON CCC-PASSENGER INTERLINE CLERK Service: Speech/Swallow Author Type: Speech Language Pathologist Type: Therapy (PT/OT/Speech/Resp) Filed: 12/09/2024 15:07 Note Text: Summary: PASSENGER INTERLINE CLERK Missed Visit SPEECH THERAPY MISSED VISIT SERVICE DATE: 12/09/2024 SERVICE TIME: 1507 ROOM: [place] [address] ([facility]) Patient not seen due to Test / Procedure. -pt is off the floor at this time. SIGNATURE: Whit Darling CCC-PASSENGER INTERLINE CLERK PATIENT NAME: Tena Cannon DATE: December 09, 2024 TIME: 3:07 PM Normal [facility] THERAPY NT HNO ID: [id number] Author: MARTHA DAMON OT/L Service: Occupational Therapy Author Type: Occupational Therapist Type: Therapy (PT/OT/Speech/Resp) Filed: 12/09/2024 13:06 Note Text: Summary: OT Evaluation Occupational Therapy Evaluation Summary SERVICE DATE: 12/09/2024 SERVICE TIME: 1149 to 1241 ROOM: [id number]- OT 6 Clicks Score: 13 DISCHARGE RECOMMENDATIONS [...] With: Facility Care, Other: See Comment Comments: [facility] in [place] Assistance Available: 24-Hour Entry To Home: No [...] daily living (ADL) TREATMENT INTERVENTIONS Evaluation, Self Correction Management (69181) Timed Code Treatment (minutes): 24 Skilled Treatment [...] 3 Times Per (more content not included)... [facility] THERAPY NT HNO ID: [id number] Author: TENA LEY CCC-PASSENGER INTERLINE CLERK Service: Speech/Swallow Author Type: Speech Language Pathologist Type: Therapy (PT/OT/Speech/Resp) Filed: 12/09/2024 11:02 Note Text: Summary: Speech - missed [facility] THER[facility] SPEECH THERAPY MISSED VISIT NOTE SERVICE DATE: 12/09/2024 SERVICE TIME: 10:10 AM Attempted patient therapy visit, but was unable for the following reason(s): - attempted Speech therapy - Pt unavailable; another service at bedside -- Will re-attempt as schedule AND Patient availability permits SIGNATURE: Tena Ley CCC-PASSENGER INTERLINE CLERK PATIENT NAME: Tena Cannon DATE: December 09, 2024 TIME: 11:02 AM [facility] US DVT LOWER BILon US DVT LOWER LATISHA * * *Final Report* * * DATE OF EXAM: Dec 09 2024 4:51PM NIEVES 1005 - US DVT LOWER LATISHA / [...] of the left and right lower extremities. Operator Helper: PSCB Transcribe Date/Time: Dec 09 2024 4:55P Dictated by : JEANNETTE ELDER MD This examination was interpreted and the report reviewed and electronically signed by: JEANNETTE ELDER MD on Dec 09 2024 4:55PM EST [id number] [facility] XR HIP 3V PELV+ AP/LAT RTon [...] images should satisfy evaluation of the hips. Operator Helper: RYAN Transcribe Date/Time: Dec 09 2024 3:26P Dictated by : QUINCY SALAS DO This examination was interpreted and the report reviewed and electronically signed by: QUINCY SALAS DO on Dec 09 2024 3:31PM EST [id number] [facility] XR PELVIS 2V INLET/OUTLETon 12-09-2024 XR [...] images should satisfy evaluation of the hips. Operator Helper: PSCB Transcribe Date/Time: Dec 09 2024 3:26P Dictated by : QUINCY SALAS DO This examination was interpreted and the report reviewed and electronically signed by: QUINCY SALAS DO on Dec 09 2024 3:31PM EST [id number] [facility] HNO ID: [id number] Author: MENDOZA GILLETTE Tech Service: Radiology Author Type: Warp Dyeing Vat Tender Type: Allied Health Filed: 12/08/2024 17:01 Note [...] PATIENT PRESENTS WITH AN IMPLANTABLE OR ATTACHED PROFESSOR OF SOCIAL WORK: No RADIOLOGY DEPARTMENT: General X-ray: Exam(s) Completed: Chest X-Ray PERIPHERAL IV DATA: Not applicable SIGNED BY: David Boyd December 08, 2024 5:[address] [facility] HNO ID: [id number] Author: RUDYY, NEDA, TECHNOLOGIST Service: Radiology Author Type: Technologist Type: [...] PATIENT PRESENTS WITH AN IMPLANTABLE OR ATTACHED PROFESSOR OF SOCIAL WORK: No RADIOLOGY DEPARTMENT: CT; Exam(s) Completed: Abdomen/Pelvis , Brain , and Spine PERIPHERAL IV DATA: Not applicable SIGNED BY: Neda Bhagat TECHNOLOGIST December 08, 2024 4:47 PM Normal [facility] Bacteria Ur Culton Bacteria identified Cx Nom (U) ORGANISM ID: 1 10,000 -<50,000 CFU/ml Normal urogenital lisa Normal [facility] Comment on above: Performed By: #### 6 30-4 #### [facility] CLIA [id number] [address] [place] [address] [place] CBC W Auto Differential pane l (Bld)on 12-08-2024 Basophils (Bld) [#/Vol] 0.05 10*3/uL Normal <0.11 [facility] Comment on above: Order Comment: Speci men Type: BLOOD SPECIMENOrdering Facility: [facility] Address: [address] [place] [address] Performed By: #### 5 7021-8 ####[facility]ORATORYCLIA [id number] [address] [place] Basophils/100 WBC (Bld) 0.8 % Normal [facility] Comment on above: Order Comment: Speci men Type: BLOOD SPECIMENOrdering Facility: [facility] Address: [address] [place] [address] Performed By: #### 5 7021-8 ####[facility]ORATORYCLIA [id number] [address] [place] Differential cell count method Nom (Bld) Auto Normal [facility] Comment on above: Order Comment: Speci men Type: BLOOD SPECIMENOrdering Facility: [facility] Address: [address] [place] [address] Performed By: #### 5 7021-8 ####[facility] LABORATORYCLIA [id number] [place] [address] [place] Eosinophils (Bld) [#/Vol] 0.12 10*3/uL Normal <0.46 [facility] Comment on above: Order Comment: Speci men Type: BLOOD SPECIMENOrdering Facility: [facility] Address: [address] [place] [address] Performed By: #### 5 7021-8 ####[facility] LABORATORYCLIA [id number] [address] [place] Eosinophils/100 WBC (Bld) 1.9 % Normal [facility] Comment on above: Order Comment: Speci men Type: BLOOD SPECIMENOrdering Facility: [facility] Address: [address] [place] [address] Performed By: #### 5 7021-8 ####[facility] LABORATORYCLIA [id number] [address] [place] Erythrocyte distribution width (RBC) [Ratio] 12.6 % Normal 11.5-15.0 [facility] Comment on above: Order Comment: Speci men Type: BLOOD SPECIMENOrdering Facility: [facility] Address: [address] [place] [address] Performed By: #### 5 7021-8 ####[facility] LABORATORYCLIA [id number] [address] [place] Hematocrit (Bld) [Volume fraction] 39.9 % Normal 36.0-46.0 [facility] Comment on above: Order Comment: Speci men Type: BLOOD SPECIMENOrdering Facility: [facility] Address: [address] [place] [address] Performed By: #### 5 7021-8 ####[facility] LABORATORYCLIA [id number] [place] [address] [place] Hemoglobin (Bld) [Mass/Vol] 13.6 g/dL Normal 11.5-15.5 [facility] Comment on above: Order Comment: Speci men Type: BLOOD SPECIMENOrdering Facility: [facility] Address: [address] [place] [address] Performed By: #### 5 7021-8 ####[facility] LABORATORYCLIA [id number] [place] [address] [place] Immature granulocytes (Bld) [#/Vol] 10*3/uL Normal <0.10 [facility] Comment on above: Order Comment: Speci men Type: BLOOD SPECIMENOrdering Facility: [facility] Address: [address] [place] [address] Performed By: #### 5 7021-8 ####[facility] LABORATORYCLIA [id number] [address] [place] Immature granulocytes/100 WBC (Bld) 0.3 % Normal [facility] Comment on above: Order Comment: Speci men Type: BLOOD SPECIMENOrdering Facility: [facility] Address: [address] [place] [address] Performed By: #### 5 7021-8 ####[facility] LABORATORYCLIA [id number] [place] [address] [place] Lymphocytes (Bld) [#/Vol] 1.21 10*3/uL Normal 1.00-4.00 [facility] Comment on above: Order Comment: Speci men Type: BLOOD SPECIMENOrdering Facility: [facility] Address: [address] [place] [address] Performed By: #### 5 7021-8 ####[facility] LABORATORYCLIA [id number] [address] [place] Lymphocytes/100 WBC (Bld) 18.7 % Normal [facility] Comment on above: Order Comment: Speci men Type: BLOOD SPECIMENOrdering Facility: [facility] Address: [address] [place] [address] Performed By: #### 5 7021-8 ####[facility] LABORATORYCLIA [id number] [address] MCH (RBC) [Entitic mass] 31.6 pg Normal 26.0-34.0 [facility] Comment on above: Order Comment: Speci men Type: BLOOD SPECIMENOrdering Facility: [facility] Address: [address] [place] [address] Performed By: #### 5 7021-8 ####[facility] LABORATORYCLIA [id number] [address] [place] MCHC (RBC) [Mass/Vol] 34.1 g/dL Normal 30.5-36.0 [facility] Comment on above: Order Comment: Speci men Type: BLOOD SPECIMENOrdering Facility: [facility] Address: [address] [place] [address] Performed By: #### 5 7021-8 ####[facility] LABORATORYCLIA [id number] [address] MCV (RBC) [Entitic vol] 92.8 fL Normal 80.0-100.0 [facility] Comment on above: Order Comment: Speci men Type: BLOOD SPECIMENOrdering Facility: [facility] Address: [address] [place] [address] Performed By: #### 5 7021-8 ####[facility] LABORATORYCLIA [id number] [address] Monocytes (Bld) [#/Vol] 0.74 10*3/uL Normal <0.87 [facility] Comment on above: Order Comment: Speci men Type: BLOOD SPECIMENOrdering Facility: [facility] Address: [address] [place] [address] Performed By: #### 5 7021-8 ####[facility] LABORATORYCLIA [id number] [address] Monocytes/100 WBC (Bld) 11.4 % Normal [facility] Comment on above: Order Comment: Speci men Type: BLOOD SPECIMENOrdering Facility: [facility] Address: [address] [place] [address] Performed By: #### 5 7021-8 ####[facility] LABORATORYCLIA [id number] [place] [address] [place] Neutrophils (Bld) [#/Vol] 4.34 10*3/uL Normal 1.45-7.50 [facility] Comment on above: Order Comment: Speci men Type: BLOOD SPECIMENOrdering Facility: [facility] Address: [address] [place] [address] Performed By: #### 5 7021-8 ####[facility] LABORATORYCLIA [id number] [place] [address] [place] Neutrophils/100 WBC (Bld) 66.9 % Normal [facility] Comment on above: Order Comment: Speci men Type: BLOOD SPECIMENOrdering Facility: [facility] Address: [address] [place] [address] Performed By: #### 5 7021-8 ####[facility] LABORATORYCLIA [id number] [place] [address] [place] Nucleated RBC (Bld) [#/Vol] 10*3/uL Normal <0.01 [facility] Comment on above: Order Comment: Speci men Type: BLOOD SPECIMENOrdering Facility: [facility] Address: [address] [place] [address] Performed By: #### 5 7021-8 ####[facility] LABORATORYCLIA [id number] [place] [address] [place] Nucleated RBC/100 WBC (Bld) [Ratio] 0.0 /100 WBC Normal [facility] Comment on above: Order Comment: Speci men Type: BLOOD SPECIMENOrdering Facility: [facility] Address: [address] [place] [address] Performed By: #### 5 7021-8 ####[facility] LABORATORYCLIA [id number] [place] [address] [place] Platelet mean volume (Bld) [Entitic vol] 10.9 fL Normal 9.0-12.7 [facility] Comment on above: Order Comment: Speci men Type: BLOOD SPECIMENOrdering Facility: [facility] Address: [address] [place], [place] [address] Performed By: #### 5 7021-8 ####[facility] LABORATORYCLIA [id number] [address] Platelets (Bld) [#/Vol] 204 10*3/uL Normal 150-400 [facility] Comment on above: Order Comment: Speci men Type: BLOOD SPECIMENOrdering Facility: [facility] Address: [address] [place] [address] Performed By: #### 5 7021-8 ####[facility] LABORATORYCLIA [id number] [address] [place] RBC (Bld) [#/Vol] 4.30 10*6/uL Normal 3.90-5.20 [facility] Comment on above: Order Comment: Speci men Type: BLOOD SPECIMENOrdering Facility: [facility] Address: [address] [place] [address] Performed By: #### 5 7021-8 ####[facility] LABORATORYCLIA [id number] [address] WBC (Bld) [#/Vol] 6.48 10*3/uL Normal 3.70-11.00 [facility] Comment on above: Order Comment: Speci men Type: BLOOD SPECIMENOrdering Facility: [facility] Address: [address] [place] [address] Performed By: #### 5 7021-8 ####[facility] LABORATORYCLIA [id number] [address] OF [facility] CNPNon 12-08-2024 CNPN Telephone (SIS) TENA CANNON ([id number]) 1940 F Date Time Provider Department 12/08/24 KONTAK, SAHRA R FAMDNA During your visit today, we recorded the following information about you: Melissa VillegascNorma 12/08/2024 10:23 AM Signed Patient daughterJuan is calling Sahra Guy MD today to request a prior authorization for the lidocaine 5% per pharmacy [facility] in [place] on [address] Please call daughter with updates on this PA Patient has been identified by name and birthdate. Person calling: daughter: Juan Call patient daughter Juan [phone] (home) [phone] (cell) Was an appointment scheduled: No Closing statement: Prior Auth needed for the Lidocaine [facility] Adonay Marquez LPN 12/08/2024 1:33 PM Signed PA submitted. Response pending. [place] Tete Boucher 12/09/2024 2:31 PM Signed Juan, daughter called and stated lidocaine patches are denied and the insurance has faxed an appeal form to our office. She is requesting this is completed. Please call [facility] [phone] at 8-5pm central time. Please follow up [...] Juan states pt will be transitioning to [facility] for inpatient physical therapy. Juan requested [...] TEARS OPHTHALMIC) Use in eyes. - rutin/hesp/bioflav/C/h [id number] (BIOFLEX ORAL) Take 1 capsule by mouth twice daily. - CPAP BipaP @ 14/9 cm of water with humidific (more content not included)... Normal [facility] CT ABD/PEL WO IVCONon 2024 CT ABD/PEL WO IVCON * * *Final Report* * * DATE OF EXAM: Dec 08 2024 4:57PM [facility] [place] ABD/PEL WO IVCON / [...] in the lumbar spine. Advanced degenerative changes. Operator Helper: RYAN Transcribe Date/Time: Dec 08 2024 5:59P Dictated by : SIERRA SILVER MD This examination was interpreted and the report reviewed and electronically signed by: SIERRA SILVER MD on Dec 08 2024 6:18PM EST [id number] [facility] CT BRAIN WO IVCONon 12-09-19 CT BRAIN WO IVCON * * *Final Report* * * DATE OF EXAM: Dec 08 2024 4:56PM [facility] [place] BRAIN WO IVCON / PROCEDURE REASON: Head trauma, moderate-severe * * * * Physician Interpretation * * * * EXAMINATION: CT BRAIN WO IVCON, CT CERVICAL SPINE WO IVCON CLINICAL HISTORY: Head trauma, moderate-severe (accession [id number]), Spine fracture, cervical, traumatic (accession [id number]) TECHNIQUE: Serial axial images without IV contrast [...] with counting from the craniocervical junction. : Operator Helper: PSCB Transcribe Date/Time: Dec 08 2024 5:11P Dictated by : FAUSTINO KINSEY MD This examination was interpreted and the report reviewed and electronically signed by: FAUSTINO KINSEY MD on Dec 08 2024 5:24PM EST [id number] [facility] CT CERVICAL SPINE WO IVCONon 12-08-2024 CT CERVICAL SPINE WO IVCON * * *Final Report* * * DATE OF EXAM: Dec 08 2024 4:56PM [facility] [place] CERVICAL SPINE WO IVCON / PROCEDURE REASON: Spine fracture, cervical, traumatic * * * * Physician Interpretation * * * * EXAMINATION: CT BRAIN WO IVCON, CT CERVICAL SPINE WO IVCON CLINICAL HISTORY: Head trauma, moderate-severe (accession [id number]), Spine fracture, cervical, traumatic (accession [id number]) TECHNIQUE: Serial axial images without IV contrast [...] with counting from the craniocervical junction. : Operator Helper: PSCB Transcribe Date/Time: Dec 08 2024 5:11P Dictated by : FAUSTINO KINSEY MD This examination was interpreted and the report reviewed and electronically signed by: FAUSTINO KINSEY MD on Dec 08 2024 5:24PM EST [id number] [facility] CT LUMBAR SPINE W RECON DATA -NBon 05-08-2025 CT LUMBAR SPINE W RECON DATA -NB * * *Final Report* * * DATE OF EXAM: Dec 08 2024 4:57PM [facility] [place] LUMBAR SPINE W RECON [...] in the lumbar spine. Advanced degenerative changes. Operator Helper: RYAN Transcribe Date/Time: Dec 08 2024 5:59P Dictated by : SIERRA SILVER MD This examination was interpreted and the report reviewed and electronically signed by: SIERRA SILVER MD on Dec 08 2024 6:18PM EST [id number] Normal [facility] Comprehensive metabolic 2000 panelon 12-08-2024 Albumin [Mass/Vol] 4.1 g/dL Normal 3.9-4.9 [facility] Comment on above: Order Comment: Speci men Type: BLOOD SPECIMENOrdering Facility: [facility] Address: [address] [place] [address] Performed By: #### 2 4323-8, 3040-3 ####[facility] LABORATORYCLIA [id number] [place] [address] [place] ALP [Catalytic activity/Vol] 68 U/L Normal 34-123 [facility] Comment on above: Order Comment: Speci men Type: BLOOD SPECIMENOrdering Facility: [facility] Address: [address] [place] [address] Performed By: #### 2 4323-8, 3040-3 ####[facility] LABORATORYCLIA [id number] [place] [address] [place] ALT [Catalytic activity/Vol] 15 U/L Normal 7-38 [facility] Comment on above: Order Comment: Speci men Type: BLOOD SPECIMENOrdering Facility: [facility] Address: [address] [place] [address] Performed By: #### 2 4323-8, 3040-3 ####[facility]DRCIK LABORATORYCLIA [id number] [place] [address] [place] Anion gap [Moles/Vol] 12 mmol/L Normal 8-15 [facility] Comment on above: Order Comment: Speci men Type: BLOOD SPECIMENOrdering Facility: [facility] Address: [address] [place] [address] Performed By: #### 2 4323-8, 3040-3 ####[facility] LABORATORYCLIA [id number] [place] [address] [place] AST [Catalytic activity/Vol] 18 U/L Normal 13-35 [facility] Comment on above: Order Comment: Speci men Type: BLOOD SPECIMENOrdering Facility: [facility] Address: [address] [place] [address] Performed By: #### 2 4323-8, 0-3 ####[facility] LABORATORYCLIA [id number] [place] [address] [place] Bilirubin [Mass/Vol] 0.4 mg/dL Normal 0.2-1.[address] [facility] Comment on above: Order Comment: Speci men Type: BLOOD SPECIMENOrdering Facility: [facility] Address: [address] [place] [address] Performed By: #### 2 4323-8, 0-3 ####[facility] LABORATORYCLIA [id number] [place] [address] [place] Calcium [Mass/Vol] 10.1 mg/dL Normal 8.5-10.2 [facility] Comment on above: Order Comment: Speci men Type: BLOOD SPECIMENOrdering Facility: [facility] Address: [address] [place] [address] [place] [address] Performed By: #### 2 4323-8, 3039-3 ####[facility] LABORATORYCLIA [id number] [place] [id number] [place] Chloride [Moles/Vol] 99 mmol/L Normal 98-[address] [facility] Comment on above: Order Comment: Speci men Type: BLOOD SPECIMENOrdering Facility: [facility] Address: [facility] [address] [address] Performed By: #### 2 4323-8, 3039-3 ####[facility] LABORATORYCLIA [id number] [place] [id number] [place] CO2 [Moles/Vol] 27 mmol/L Normal 22-30 [facility] Comment on above: Order Comment: Speci men Type: BLOOD SPECIMENOrdering Facility: [facility] Address: [address] [facility] [place] [address] Performed By: #### 2 4323-8, 0-3 ####[facility] LABORATORYCLIA [id number] [place] [address] [place] Creatinine [Mass/Vol] 0.39 mg/dL Low 0.58-0.96 [facility] Comment on above: Order Comment: Helena bronson Type: BLOOD SPECIMENOrdering Facility: [facility] Address: [address] [place] [address] Performed By: #### 2 4323-8, 3039-3 ####[facility] LABORATORYCLIA [id number] [place] [address] [place] [facility] Creatinine and Glomerular filtration rate.predicted panel (S/P/Bld) 97 mL/min/1.73m??? Normal >=60 [facility] Comment on above: Order Comment: Helena bronson Type: BLOOD SPECIMENOrdering Facility: [facility] Address: [address] [place] [address] Result Comment: Sara mated Glomerular Filtration Rate [...] GFR. Performed By: #### 2 4323-8, 3039-3 ####[facility] LABORATORYCLIA [id number] [place] [address] [place] Glucose [Mass/Vol] 84 mg/dL Normal 74-99 [facility] Comment on above: Order Comment: Helena bronson Type: BLOOD SPECIMENOrdering Facility: [facility] Address: [address] [place] [address] Result Comment: The [place] [employer] (ADA) provides guidance for [...] Standards of Medical Care in Diabetes 2016, [place] [employer]. Diabetes Care. 2016.39(Suppl 1). Performed By: #### 2 4323-8, 3040-3 ####[facility] LABORATORYCLIA [id number] [place] [address] [place] Potassium [Moles/Vol] 3.8 mmol/L Normal 3.7-5.1 [facility] Comment on above: Order Comment: Speci men Type: BLOOD SPECIMENOrdering Facility: [facility] Address: [address] [place] [address] Performed By: #### 2 4323-8, 3040-3 ####[facility]DR[facility] LABORATORYCLIA [id number] [place] [address] [place] Protein [Mass/Vol] 7.3 g/dL Normal 6.3-8.0 [facility] Comment on above: Order Comment: Speci men Type: BLOOD SPECIMENOrdering Facility: [facility] Address: [address] [place] [address] Performed By: #### 2 4323-8, 0-3 ####KENDRICK LABORATORYCLIA [id number] [address] STATES [facility] Sodium [Moles/Vol] 138 mmol/L Normal 136-144 [facility] Comment on above: Order Comment: Speci men Type: BLOOD SPECIMENOrdering Facility: [facility] Address: [address] [place] [address] Performed By: #### 2 4323-8, 3040-3 ####KENDR[facility] LABORATORYCLIA [id number] [address] [place] Urea nitrogen [Mass/Vol] 18 mg/dL Normal 7-21 [facility] Comment on above: Order Comment: Speci men Type: BLOOD SPECIMENOrdering Facility: [facility] Address: [address] [place] [address] Performed By: #### 2 4323-8, 3040-3 ####KENDRICK LABORATORYCLIA [id number] [place] [address] [place] ED NOTEon 12-08-2024 ED NOTE HNO ID: [id number] Author: KRISTINE UMANZOR RN Service: Nursing Author Type: Registered Nurse Type: ED Notes Filed: 12/08/2024 20:45 Note Text: Pt is wearing own nightgown [facility] ED NOTE HNO ID: [id number] Author: RADU DISLA RN Service: ? Author Type: Registered Nurse Type: ED Notes Filed: 12/08/2024 20:02 Note Text: [facility] ED NOTE HNO ID: [id number] Author: RADU DISLA RN Service: ? Author Type: Registered Nurse Type: ED Notes Filed: 12/08/2024 20:02 Note Text: Pt back from ct co way increased back pain after laying flat on ct table. Sts 1210 and now bp up to 225/90s [facility] ED NOTE HNO ID: [id number] Author: RADU DISLA RN Service: ? Author Type: Registered Nurse Type: ED Notes Filed: 12/08/2024 17:05 Note Text: [facility] ED NOTE HNO ID: [id number] Author: HARINDER HEADLEY RN Service: ? Author Type: Registered Nurse Type: ED Notes Filed: 12/08/2024 15:58 Note Text: Bed: ED-10 Expected date: 12/08/24 Expected time: 3:35 PM Means of arrival: [facility] Comments: [facility] ED PROV NOTEon 12-08-2024 ED PROV NOTE HNO ID: [id number] Author: EDGARD PEREZ MD Service: Emergency Medicine [...] vessels break Novocain [Procaine * Intolerance headaches Amanda-3 Fish Oil [O* Intolerance bleeding in eye [...] to l (more content not included)... Normal [facility] HISTORY PHYSICALon HISTORY PHYSICAL HNO ID: [id number] Author: SUKI GALVAN MD Service: Hospital Medicine Author Type: Physician Type: H&P Filed: 12/08/2024 21:49 Note Text: DEPARTMENT OF HOSPITAL MEDICINE HISTORY AND PHYSICAL EXAM SERVICE DATE: 12/08/2024 SERVICE TIME: 9:48 PM Primary Care Physician: Sahra Guy MD NIGHT AND WEEKEND COVERAGE: [facility] COVERAGE: Days: [phone], please page attending physician. Nights: [phone], please page [facility] Night coverage pager [phone]. Subjective CHIEF COMPLAINT: fall HPI: 84-year-old female [...] INTRAVENOUS PRN (more content not included)... Normal [facility] Lipase SerPl-cCncon 12-09-19 25 Lipase [Catalytic activity/Vol] 20 U/L Normal 16- [facility] Comment on above: Order Comment: Speci men Type: BLOOD SPECIMENOrdering Facility: [facility] Address: [address] [place] [address] Performed By: #### 2 4323-8, 3040-3 ####MERTZON LABORATORYCLIA [id number] [place] [address] [place] PT panel Coag (PPP)on 2024 INR Coag (PPP) [Relative time] 1.1 {INR} Normal 0.9-1.3 [facility] Comment on above: Order Comment: Speci men Type: BLOOD SPECIMENOrdering Facility: [facility] Address: [address] [id number] Result Comment: Yvonne min K Antagonist (VKA) Therapeutic Range: INR 2 to 3 (Target INR of 2.5) Note: For patients treated with VKA drugs, such as warfarin, the [employer] [place] [employer] 2012 Guideline [...] 2.5 to 3.5 (target INR of 3). Londontt GH, et al. Chest 2012, 141:7S-47S Juan Jose RA, et al. [facility] 2017, 70: 252-289 Performed By: #### 1 4979-9, 35665-0 ####MERTZON LABORATORYCLIA [id number] [place] [id number] [place] PT Coag (PPP) [Time] 11.4 s Normal 9.7-13.[address] [facility] Comment on above: Order Comment: Speci men Type: BLOOD SPECIMENOrdering Facility: [facility] Address: [address] [place] [address] Performed By: #### 1 4979-9, 49636-3 ####MERTZON LABORATORYCLIA [id number] [place] [id number] [place] URINALYSIS, REFLEX MICROSCOP ICon 12-08-2024 Bilirubin Ql (U) Negative Normal Negative [facility] Comment on above: Order Comment: Speci men Type: URINE SPECIMENOrdering Facility: [facility] Address: [address] [place] [address] Performed By: #### L [id number] ####KENDRICK LABORATORYCLIA [id number] [address] [place] Clarity (Unsp spec) Clear Normal Clear [facility] Comment on above: Order Comment: Speci men Type: URINE SPECIMENOrdering Facility: [facility] Address: [address] [place] [address] Performed By: #### L [id number] ####KENDRICK LABORATORYCLIA [id number] [address] [place] Color (U) Yellow Normal Yellow [facility] Comment on above: Order Comment: Speci men Type: URINE SPECIMENOrdering Facility: [facility] Address: [address] [place] [address] Performed By: #### L [id number] ####KENDRICK LABORATORYCLIA [id number] [address] [place] Glucose Test strip (U) [Mass/Vol] Negative Normal Negative [facility] Comment on above: Order Comment: Speci men Type: URINE SPECIMENOrdering Facility: [facility] Address: [address] [place] [address] Performed By: #### L [id number] ####KENDRICK LABORATORYCLIA [id number] [address] [place] Hemoglobin Ql (U) Negative Normal Negative [facility] Comment on above: Order Comment: Speci men Type: URINE SPECIMENOrdering Facility: [facility] Address: [address] [place] [address] Performed By: #### L [id number] ####KENDRICK LABORATORYCLIA [id number] [address] OF [place] Ketones Ql (U) 2+ Abnormal Negative [facility] Comment on above: Order Comment: Speci men Type: URINE SPECIMENOrdering Facility: [facility] Address: [address] [place] [address] Performed By: #### L [id number] ####KENDRICK LABORATORYCLIA [id number] [address] [place] Leukocyte esterase Test strip Ql (U) Negative Normal Negative [facility] Comment on above: Order Comment: Speci men Type: URINE SPECIMENOrdering Facility: [facility] Address: [address] [place] [address] Performed By: #### L [id number] ####KENDRICK LABORATORYCLIA [id number] [place] [address] [place] Nitrite Ql (U) Negative Normal Negative [facility] Comment on above: Order Comment: Speci men Type: URINE SPECIMENOrdering Facility: [facility] Address: [address] [place] [address] Performed By: #### L [id number] ####KENDRICK LABORATORYCLIA [id number] [address] [place] pH (U) 6.0 [pH] Normal 5.0-8.0 [facility] Comment on above: Order Comment: Speci men Type: URINE SPECIMENOrdering Facility: [facility] Address: [address] [place] [address] Performed By: #### L [id number] ####KENDRICK LABORATORYCLIA [id number] [place] [address] [place] Protein (U) [Mass/Vol] Negative Normal Negative [facility] Comment on above: Order Comment: Speci men Type: URINE SPECIMENOrdering Facility: [facility] Address: [address] [place] [address] Performed By: #### L [id number] ####KENDRICK LABORATORYCLIA [id number] [address] [place] Specific gravity (U) [Rel density] 1.020 Normal 1.005-1.030 [facility] Comment on above: Order Comment: Speci men Type: URINE SPECIMENOrdering Facility: [facility] Address: [address] [place] [address] Performed By: #### L [id number] ####KENDRICK LABORATORYCLIA [id number] [place] [address] [place] Urobilinogen Ql (U) 0.2 EU/dL Normal 0.2-1.0 EU/dL [facility] Comment on above: Order Comment: Speci men Type: URINE SPECIMENOrdering Facility: [facility] Address: [address] [id number] Performed By: #### L [id number] ####MERTZON LABORATORYCLIA [id number] [place] [address] [place] XR CHEST 1V [...] the findings on the concurrent abdominal CT. Operator Helper: PSCChristian Transcribe Date/Time: Dec 08 2024 5:22P Dictated by : TAMERA DRAKE MD This examination was interpreted and the report reviewed and electronically signed by: TAMERA DRAKE MD on Dec 08 2024 5:25PM EST [id number] Normal [facility] aPTT PPPon 12-08-2024 aPTT Coag (PPP) [Time] 27.9 s Normal 23.0-32.4 [facility] Comment on above: Order Comment: Speci men Type: BLOOD SPECIMENOrdering Facility: [facility] Address: [address], [place] [address] Performed By: #### 1 4979-9, 88529-4 ####KENDRICK [facility] [id number] [address] OF [facility] CNPPascale 12-07-2024 CNPN Telephone (FPWADS) TENA CANNON ([id number]) 1940 F Date Time Provider Department 12/07/24 SAHRA GUY FPWADS During your visit today, we recorded the following information about you: Uriel Stover 12/07/2024 3:21 PM Signed Patient's daughter is calling that the Rx Lidocaine is not covered for the 4% but the 5% is. She is asking if this can be re-ordered as such and sent to [facility] while she is in the [facility] today. Please call Juan if the Rx is being changed/sent. [phone] Sahra Guy MD 12/07/2024 4:52 PM Signed The following approved medication requests have been transmitted electronically. Requested Prescriptions Signed Prescriptions Disp Refills lidocaine (LIDODERM) 5 % 30 patch 2 Sig: Apply 1 patch as directed once daily. REMOVE AFTER 12 HOURS. Authorizing Provider: SAHRA GUY Pharmacy Information Pharmacy Address Telephone [facility]/pharmacy #[id number] [place] [address] MD Eladio Mitchell Cheralyn, LPN 12/07/2024 5:17 PM Signed Called and spoke with pt and daughter Juan. Stated they will bean picker medication. Pt would like to know [...] TEARS OPHTHALMIC) Use in eyes. - rutin/hesp/bioflav/C/h [id number] (BIOFLEX ORAL) Take 1 capsule by mouth [...] VENOUS INSUFFICIENCY (more content not included)... Normal [facility] Agustina 10-24-2024 ANTONYN Telephone (FPWADS) TENA CANNON ([id number]) 1940 F Date Time Provider Department 10/24/24 SAHRA GUY During your visit today, we recorded the following information about you: Malika Sheikh LPN 10/24/2024 3:34 PM Signed Received 10/21/2024 from [facility]. Placed in provider's inbox for review. Route to MD for faxing Allergies As of Date: 10/24/2024 [...] Reason for Visit: Received Outside Medical Records [[id number]] Cmt: [facility] OT Evaluation performed no further [...] TEARS OPHTHALMIC) Use in eyes. 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 Normal [facility] Agustina 10-19-2024 ANTONYN Telephone (DAREKWA) TENA CANNON ([id number]) 1940 F Date Time Provider Department 10/19/24 SAHRA GUY During your visit today, we recorded the following information about you: Adonay Marquez LPN 10/19/2024 5:27 PM Signed Received orders from [facility]. Placed in provider's inbox for [...] Assessed Reason for Visit: Orders [681] Cmt: [facility] Prescriptions as of 10/19/2024 - metFORMIN [...] TEARS OPHTHALMIC) Use in eyes. - rutin/hesp/bioflav/C/h [id number] (BIOFLEX ORAL) Take 1 capsule by mouth [...] LOWER LEG [M25.569] 01/22/2007 VERTEBRAL FX NOS-CLOSED [[id number]] 03/24/2007 RESTLESS LEGS SYNDROME [G25.81] BONE AND [...] Encounter Status:Closed by ADONAY MARQUEZ on 10/19/24 [facility] 10-12-2024 [facility] Telephone (FPWADS) TENA CANNON ([id number]) 1940 F Date Time Provider Department 10/12/24 [...] non-symptom based questions: Thank you for calling [facility], your call will be returned within the next business day. Leonid Nicolas APRN.ANTONY 10/12/2024 4:17 PM Signed Yes, please [...] - Fully Assessed Reason for Visit: PT [place] [747] Prescriptions as of 10/12/2024 - metFORMIN [...] TEARS OPHTHALMIC) Use in eyes. 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 Normal [facility] Agustina 10-11-2024 CNPN Telephone (JULIANNAWAANA M) TENA CANNON ([id number]) 1940 F Date Time Provider Department 10/11/24 SAHRA GUY During your visit today, we recorded the following information about you: Rachel Stacy 10/11/2024 1:14 PM Signed Jonathon from [facility] is calling for a verbal order [...] TEARS OPHTHALMIC) Use in eyes. 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 [facility] (FPWADS) ETNA CANNON ([id number]) 1940 F Date Time Provider Department 10/06/24 [...] calling: self Call patient at: at home [phone] (home) [phone] (cell) Was an appointment scheduled: No Closing statement: Results or non-symptom based questions: Thank you for calling [facility], your call will be returned within the next business day. Tete Mora [facility] Sahra Guy MD 10/06/2024 10:41 AM Signed [...] CONSULT TO PHYSICAL THERAPY B91 CONSULT TO [facility] 2. Muscle strain of lower leg, unspecified laterality, initial encounter S86.919A CONSULT TO PHYSICAL THERAPY CONSULT TO [facility] 3. 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 Normal [facility] CNPNon 09-23-2024 ANTONYN Telephone (LINDY) TENA CANNON Terry ([id number]) 1940 F Date Time Provider Department 09/23/24 SAHRA GUY During your visit today, we recorded the following information about you: Malika Sheikh LPN 09/23/2024 10:07 AM Signed Received 09/23/2024 from [facility] Placed in provider's inbox for review. Route to MD for faxing. Allergies As of Date: 09/23/2024 [...] Reason for Visit: Received Outside Medical Records [7865] Cmt: [facility] Face to Face Encounter Documentation encounter 08/23/2024 [...] LOWER LEG [M25.569] 01/22/2007 VERTEBRAL FX NOS-CLOSED [[id number]] 03/24/2007 RESTLESS LEGS SYNDROME [G25.81] BONE AND [...] [B02.8] 07/29/2018 (more content not included)... Normal [facility] CNOVon 09-16-2024 CNOV Office Visit (FPWADS ) TENA CANNON ([id number]) 1940 F Date Time Provider Department 09/16/24 [...] services describ (more content not included)... Normal [facility] TENA CANNON ([id number]) 1940 F Date Time Provider Department 09/09/24 SAHRA GUY During your visit today, we recorded the following information about you: Cris Rascon 09/09/2024 10:47 AM Signed Tena is calling Sahra Guy MD today with concern regarding Orders Patient is there to get Lab work. If you can please FAX lab orders to them. FAX [phone]. Patient has been identified by name and birthdate. Duration of symptoms: N/A Person calling: Irwinnimisha Forte Was an appointment scheduled: No Closing statement: Results or non-symptom based questions: Thank you for calling [facility], your call will be returned within the next business day. Crisyaneth Boucher Uriel Stover 09/09/2024 10:57 AM Signed Patient called back regarding orders needed. Orders were faxed to : [facility] [phone] Allergies As of Date: 09/09/2024 Noted Allergy [...] TEARS OPHTHALMIC) Use in eyes. 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 Normal [facility] METABOLIC PANE Kojo 09-09-2024 Albumin [Mass/Vol] 3.6 g/dL Normal 3.4-4.8 [facility] Comment on above: Performed By: #### L AB17, LAB18 #### [employer]: JEAN PIERRE [place] ([id number]) [facility] DAPHNIE RITTMAN (SWRLAB) [address] [place] [address] ALP [Catalytic activity/Vol] 59 U/L Normal 40-150 [facility] Comment on above: Performed By: #### L AB17, LAB18 #### [employer]: JEAN PIERRE CA ([id number]) [facility] Second Decimal RITTMAN (SWRLAB) [address] [place] [address] ALT [Catalytic activity/Vol] 18 U/L Normal <30 [facility] Comment on above: Performed By: #### L AB17, LAB18 #### [employer]: JEAN PIERRE CA ([id number]) [facility] DAPHNIE RITTMAN (SWRLAB) [address] [place] [address] Anion gap [Moles/Vol] 2 mmol/L Low 3-13 [facility] Comment on above: Performed By: #### L AB17, LAB18 #### [employer]: JEAN PIERRE [place] ([id number]) [facility] (SWRL[facility]) [address] [place] [address] [place] AST [Catalytic activity/Vol] 21 U/L Normal <34 [facility] Comment on above: Performed By: #### L AB17, LAB18 #### [employer]: JEAN PIERRE CA ([id number]) [facility] (SWRLAB) [address] [place] [address] [place] Bilirubin [Mass/Vol] 0.5 mg/dL Normal <1.2 [facility] Comment on above: Performed By: #### L AB17, LAB18 #### [employer]: JEAN PIERRE [place] ([id number]) [facility] (SWRLAB) [address] [place] [address] [place] Calcium [Mass/Vol] 9.8 mg/dL Normal 8.8-10.0 [facility] Comment on above: Performed By: #### L AB17, LAB18 #### [employer]: JEAN PIERRE [place] ([id number]) [facility] (SWRL[facility]) [address] [place] [address] [place] Chloride [Moles/Vol] 105 mmol/L Normal 98-107 [facility] Comment on above: Performed By: #### L AB17, LAB18 #### [employer]: JEAN PIERRE [place] ([id number]) [facility] (SWRL[facility]) [address] [place] [address] [place] CO2 [Moles/Vol] 31 mmol/L Normal 23-31 [facility] Comment on above: Performed By: #### L AB17, LAB18 #### [employer]: JEAN PIERRE [place] ([id number]) [facility] (SWRLAB) [address] [place] [address] [place] Creatinine [Mass/Vol] 0.56 mg/dL Low 0.57-1.11 [facility] Comment on above: Performed By: #### L AB17, LAB18 #### [employer]: JEAN PIERRE [place] ([id number]) [facility] (SWRLAB) [address] [place] [address] [place] GLOMERULAR FILTRATION RATE ML/MIN/1.73 SQ M.PREDICTED 89.0 mL/min/1.73m*2 Normal >60.0 [facility] Comment on above: Result Comment: Calc ulation based on the Chronic Kidney Disease Epidemiology Collaboration (CKD-EPI) equation refit without adjustment for race Performed By: #### L AB17, LAB18 #### [employer]: JEAN PIERRE [place] ([id number]) [facility] ([facility]RL[facility]) [address] [place] [address] Glucose [Mass/Vol] 91 mg/dL Normal 82-115 [facility] Comment on above: Performed By: #### L AB17, LAB18 #### [employer]: JEAN PIERRE [place] ([id number]) [facility] ([facility]) [address] [place] [address] Potassium [Moles/Vol] 4.1 mmol/L Normal 3.5-5.1 [facility] Comment on above: Result Comment: [facility] potassium values may be up to 0.5 mmol/L lower than serum values. Performed By: #### L AB17, LAB18 #### [employer]: JEAN PIERRE [place] ([id number]) [facility] ([facility]) [address] [place] [address] [place] Protein [Mass/Vol] 6.7 g/dL Normal 6.4-8.3 [facility] Comment on above: Performed By: #### L AB17, LAB18 #### [employer]: JEAN PIERRE [place] ([id number]) [facility] ([facility]RL[facility]) [address] [place] [address] [place] Sodium [Moles/Vol] 138 mmol/L Normal 136-145 [facility] Comment on above: Performed By: #### L AB17, LAB18 #### [employer]: JEAN PIERRE CA ([id number]) [facility] (SWRLAB) [address] Urea nitrogen [Mass/Vol] 20 mg/dL Normal 9-23 [facility] Comment on above: Performed By: #### L AB17, LAB18 #### [employer]: JEAN PIERRE CA ([id number]) [facility] (SWRLAB) [address] Comprehensive metabolic 1998 panelon 09-09-2024 Albumin [Mass/Vol] 3.6 g/dL 3.4 - 4.8 g/dL [facility] ALP [Catalytic activity/Vol] 59 U/L 40 - 150 U/L [facility] ALT [Catalytic activity/Vol] 18 [facility] Anion gap [Moles/Vol] 2 mmol/L Low 3 - 13 mmol/L [facility] AST [Catalytic activity/Vol] 21 U/L [facility]L [facility] Bilirubin [Mass/Vol] 0.5 mg/dL NINF - 1.2 mg/dL [facility] Calcium [Mass/Vol] 9.8 mg/dL 8.8 - 10. 0 mg/dL [facility] Chloride [Moles/Vol] 105 mmol/L 98 - 10 7 mmol/L [facility] CO2 [Moles/Vol] 31 mmol/L 23 - 31 mmol/L [facility] Creatinine [Mass/Vol] 0.56 mg/dL Low 0.57 - 1.11 mg/dL [facility] GFR/1.73 sq M.predicted (S/P/Bld) [Vol rate/Area] 89 mL/min - PINF [facility] Comment on above: Calculation based on the Chronic Kidney Disease Epidemiology Collaboration (CKD-EPI) equation refit without adjustment for race Glucose [Mass/Vol] 91 mg/dL 82 - 115 mg/dL [facility] Potassium [Moles/Vol] 4.1 mmol/L 3.5 - 5.1 mmol/L [facility] Comment on above: Plasma potassium caitlin ues may be up to 0.5 mmol/L lower than serum values. Protein [Mass/Vol] 6.7 g/dL 6.4 - 8.3 g/dL [facility] Sodium [Moles/Vol] 138 mmol/L 136 - 145 mmol/L [facility] Urea nitrogen [Mass/Vol] 20 mg/dL 9 - 23 mg/d L [facility] HEMOGLOBIN A1Con 09-09-2024 Glucose [Mass/Vol] 82 mg/dL Normal [facility] Comment on above: Result Comment: ORDE R COMMENTS: HbA1c values of 5.7-6.4 percent indicate an increased risk for developing diabetes mellitus. HbA1c values greater than or equal to 6.5 percent are diagnostic of diabetes mellitus. For diagnosis of diabetes in individuals without unequivocal hyperglycemia, results should be confirmed by repeat testing. Performed By: #### L AB90 #### [employer]: JEAN PIERRE CA ([id number]) [facility] DAPHNIE [facility] [address] [place] [address] HEMOGLOBIN A1C 4.5 %HbA1C Normal <5.7 [facility] Comment on above: Result Comment: Norm al less than 5.7% Prediabetes 5.7% to 6.4% Diabetes 6.5% or higher --HgbA1C levels may not be accurate in patients who have renal disease, received recent blood transfusions, are anemic, or who have dyshemoglobinemia. Performed By: #### L AB90 #### [employer]: JEAN PIERRE CA ([id number]) [facility] [employer] (SWRLAB) [address] [place] [address] Hemoglobin A1con 09-09-2024 Average glucose Estimated from glycated hemoglobin (Bld) [Mass/Vol] 82 mg/dL [facility] HbA1c (Bld) [Mass fraction] 4.5 % [facility] Comment on above: Normal less than 5.7 [...] results should be confirmed by repeat testing. [facility] LIPID PANELon 09-09-2024 Cholesterol [Mass/Vol] 170 mg/dL Normal <200 [facility] Comment on above: Performed By: #### L AB17, LAB18 #### [employer]: JEAN PIERRE CA ([id number]) [facility] (SWRLAB[facility] [address] [place] [address] [place] Cholesterol in HDL [Mass/Vol] 59 mg/dL Low >=60 [facility] Comment on above: Performed By: #### L AB17, LAB18 #### [employer]: JEAN PIERRE CA ([id number]) [facility] (SWRLAB) [address] Cholesterol.total/Choles terol in HDL [Mass ratio] 3 {ratio} Normal [facility] Comment on above: Result Comment: Ref Range: < 3 Low Risk for CHD 3-6 Mod Risk for CHD > 6 High Risk for CHD Performed By: #### L AB17, LAB18 #### [employer]: JEAN PIERRE CA ([id number]) [facility] (SWRLAB) [address] [place] [address] [place] LOW DENSITY LIPOPROTEIN 95 mg/dL Normal 0-<100 [facility] Comment on above: Performed By: #### L AB17, LAB18 #### [employer]: JEAN PIERRE CA ([id number]) [facility] (SWRLAB) [address] [place] [address] [place] NON-HDL CHOLESTEROL, CALCULATED 111 Normal <130 [facility] Comment on above: Performed By: #### L AB17, LAB18 #### [employer]: JEAN PIERRE CA ([id number]) [facility] (SWRLAB) [address] Triglyceride [Mass/Vol] 80 mg/dL Normal <150 [facility] Comment on above: Performed By: #### L AB17, LAB18 #### [employer]: JEAN PIERRE CA ([id number]) [facility] (SWRLAB) [address] VERY LOW DENSITY LIPOPROTEIN, CALCULATED 16 mg/dL Normal <=30 [facility] [employer] [facility] Comment on above: Performed By: #### L AB17, LAB18 #### [employer]: JEAN PIERRE CA ([id number]) [employer] (SWRLAB) [address] Lipid 1996 panelon 5 Cholesterol [Mass/Vol] 170 mg/dL NINF - 200 mg/dL [employer] Cholesterol in HDL [Mass/Vol] 59 mg/dL Low 60 - PINF mg/dL [employer] Cholesterol in LDL [Mass/Vol] 95 mg/dL 0 - <100 [employer] Cholesterol.total/Choles terol in HDL [Mass ratio] 3 {ratio} [employer] Comment on above: Ref Range: < 3 Low Risk for CHD 3-6 Mod Risk for CHD > 6 High Risk for CHD NON-HDL CHOLESTEROL, CALCULATED 111 NINF - 130 [employer] Triglyceride [Mass/Vol] 80 mg/dL NINF - 150 mg/dL [employer] VERY LOW DENSITY LIPOPROTEIN, CALCULATED 16 mg/dL NINF - 30 mg/dL [employer] No Panel Informationon 09-09 Interpretation and review of laboratory results Abnormal [employer] [facility]-02-2024 [facility]ULIAN[facility]NA [facility] CANNONTENA Esquivel ([id number]) 1940 F Date Time Provider Department 09/02/24 SAHRA GUY During your visit today, we recorded the following information about you: Tete Melchor 09/02/2024 11:14 AM Signed Tena is a patient of Sahra Guy MD today LOBO Garcia called from the [facility] [place] [facility] facility and stated the patient wants to find out her lab test results. Per Radha, the patient administers her own medications so it is fine to speak with the patient, please call her today. Patient has been identified by name and birthdate. Duration of symptoms: N/A Person calling: self Call patient at: on cell [phone] (home) [phone] (cell) Was an appointment scheduled: No Closing statement: Results or non-symptom based questions: Thank you for calling [facility], your call will be returned within [...] LOWER LEG [M25.569] 01/22/2007 VERTEBRAL FX NOS-CLOSED [[id number]] 03/24/2007 RESTLESS LEGS SYNDROME [G25.81] BONE AND CARTILAGE DIS NOS [M89.9, M94.9] PAIN IN LIMB [M79.609] 11/22/2008 Deformity of ankle and foot, acquired [M21.969] 11/22/2008 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, M21.6X9] 11/27/2008 Poliomyelitis osteopathy of multiple sites (HCC*11/27/2008 Sleep apnea [G47.30] 04/15/2010 02/01/2019 Vitamin D Deficiency [E55.9] 04/15/2010 Osteopenia [M85.80] 04/15/2010 Inco (more content not included)... Normal [facility] CNPNon 09-01-2024 CNPN Telephone (JULIANNAWAANA M) TENA CANNON ([id number]) 1940 F Date Time Provider Department 09/01/24 SAHRA GUY During your visit today, we recorded the following information about you: Uriel Stover 09/01/2024 1:23 PM Signed Rachel with [employer] is calling Sahra Guy MD today to request this month's Office visit Notes. Faxed to Rachel at fax number [phone] Allergies As of Date: 09/01/2024 Noted Allergy [...] LOWER LEG [M25.569] 01/22/2007 VERTEBRAL FX NOS-CLOSED [[id number]] 03/24/2007 RESTLESS LEGS SYNDROME [G25.81] BONE AND [...] Encounter Status:Closed by URIEL STOVER on 09/01/24 [facility] Telephone (FPWADS) TENA CANNON ([id number]) 1940 F Date Time Provider Department 09/01/24 [...] requesting a call back from a nurse. [phone] Adonay Marquez LPN 09/02/2024 4:02 PM Signed Called and informed pt of pcp interpretation and recommendation. Pt would like to schedule a follow up and have a repeat lab draw in the office. Please assist pt with scheduling Sahra Guy MD 09/05/2024 10:04 AM Signed We can see her any time and do the repeat lab . Sahra Guy MD Inga Castellano 09/06/2024 11:37 AM Signed Called and scheduled pt f/u. She wanted PCP to have results prior to appt so she is getting lab drawn in [place]. Allergies As of Date: 09/01/2024 Noted Allergy [...] LOWER LEG [M25.569] 01/22/2007 VERTEBRAL FX NOS-CLOSED [[id number]] 03/24/2007 RESTLESS LEGS SYNDROME [G25.81] BONE AND CARTILAGE DIS NOS [M89.9, M94.9] PAIN IN LIMB [M79.609] 11/22/2008 Deformity of ankle (more content not included)... Normal [facility] CNPNon 08-31-2024 CNPN Telephone (FPWADS) TENA CANNON ([id number]) 1940 F Date Time Provider Department 08/31/24 SHARA GUY During your visit today, we recorded [...] calling: self Call patient at: at home [phone] (home) [phone] (cell) Was an appointment scheduled: No Closing statement: Results or non-symptom based questions: Thank you for calling [facility], your call will be returned within the next business day. Tete Mora [facility] Sahra Guy MD 09/01/2024 12:06 PM Signed [...] tests Order(s):LIPID PANEL BASIC [SQLIPB] Order #: [id number] HBA1C (OUTSIDE) [[id number]] Order #: [id number] COMPLETE BLOOD COUNT AND DIFFERENTIAL [SQCBCDIF] Order #: [id number] Prescriptions as of 11/12/2024 - metFORMIN (GLUCOPHAGE) [...] TEARS OPHTHALMIC) Use in eyes. - rutin/hesp/bioflav/C/h [id number] (BIOFLEX ORAL) Take 1 capsule by mouth [...] LOWER LEG [M25.569] 01/22/2007 VERTEBRAL FX NOS-CLOSED [[id number]] 03/24/2007 RESTLESS LEGS SYNDROME [G25.81] BONE AND CARTILAGE DIS NOS [M89.9, M94.9] PAIN IN LIMB [M79.609] 11/22/2008 Deformity of ankle and foot, acquired [M21.969] 11/22/2008 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, M21.6X9] 11/02 (more content not included)... Normal [facility] CBC W Auto Differential pane l (Bld)on 08-26-2024 Basophils/100 WBC (Bld) 0.6 % C [facility] CD59 deficient monocytes/100 cells (Bld) 14.[address] [facility] EOSINOPHILS,ABSOLUTE 0.1 [facility] Eosinophils/100 WBC (Bld) 2.6 % [facility] Erythrocyte distribution width (RBC) [Ratio] 12.9 % 11.5 - 14.5 % [facility] Hematocrit (Bld) [Volume fraction] 35.8 % Abnormal 37 - 47 % [facility] Hemoglobin (Bld) [Mass/Vol] 12.3 g/dL [facility] Lymphocytes (Bld) [#/Vol] 1.6 10*3/uL [facility] Lymphocytes/100 WBC (Bld) 33 % [facility] MCH (RBC) [Entitic mass] 32.6 pG 27 - [address] [facility] MCHC 34.4 % 32 - 36 % [facility] MCV (RBC) [Entitic vol] 94.8 fL 80 - [address] [facility] Monocytes (Bld) [#/Vol] 0.7 10*3/uL [facility] NEUTROPHILS ABSOLUTE 2.5 [facility] Neutrophils/100 WBC (Bld) 49.6 % [facility] Nucleated RBC (Bld) [#/Vol] 0.2 10*3/uL [facility] Platelet mean volume (Bld) [Entitic vol] 10 % 7.3 - 11.1 % [facility] Platelets (Bld) [#/Vol] 164 10*3/uL [facility] RBC (Bld) [#/Vol] 3.77 10*6/uL Abnormal [facility] WBC (Bld) [#/Vol] 5 10*3/uL 4.0 - 11.0 K/uL [facility] HBA1C (OUTSIDE)on 08-26-2024 HbA1c (Bld) [Mass fraction] 4.7 % [facility] Lipid 1996 panelon Cholesterol [Mass/Vol] 162 mg/dL - 199 mg/dL [facility] Cholesterol in HDL [Mass/Vol] 7 mg/dL Critically low [facility] Cholesterol in LDL [Mass/Vol] 127 mg/dL [facility] LDL/HDL RATIO 18.[address] [facility] Triglyceride [Mass/Vol] 140 mg/dL [facility] VLDL Cholesterol 28 [facility] No Panel Informationon 08-26 Interpretation and review of laboratory results Abnormal [facility] CNPNon 08-24-2024 CNPN Telephone ([facility]) TENA CANNON ([id number]) 1940 F Date Time Provider Department 08/24/24 SAHRA GUY During your visit today, we recorded the following information about you: Adonay Marquez LPN 08/24/2024 10:26 AM Signed Received orders from [facility]. Placed in provider's inbox for review. Route to [place] fax Allergies As of Date: 08/24/2024 Noted [...] Assessed Reason for Visit: Orders [681] Cmt: [facility], [facility] Prescriptions as of 08/24/2024 - [...] LOWER LEG [M25.569] 01/22/2007 VERTEBRAL FX NOS-CLOSED [[id number]] 03/24/2007 RESTLESS LEGS SYNDROME [G25.81] BONE AND CARTILAGE DIS NOS [M89.9, M94.9] PAIN IN LIMB [M79.609] 11/22/2008 Deformity of ankle and foot, acquired [M21.969] 11/22/2008 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, M21.6X9] 11/27/2008 Poliomyelitis osteopathy of multiple sites (HCC*11/27/2008 Sleep apnea [G47.30] 04/15/2010 02/01/2019 Vitamin D Deficiency [E55.9] 04/15/2010 Osteopenia [M85.80] 04/15/2010 Incontinence [R32] 07/19/2012 Fracture of L1 vertebra ([facility]) [S32.019A] 06/02/2014 02/01/2019 Lumbar radiculopathy [M54.16] 06/03/2014 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 yes Would you like [...] Guy MD 08/23/2024 4:55 PM Signed Tena Terry Cannon is a 83 year old female [...] information provided - Personalized prevention plan provided (.) Medicare annual wellness visit, subsequent (primary encounter diagnosis) Comment: 83 year old generally healthy female here for medicare visit Plan: As below (E66.01) Obesity, Class III, BMI 40-49.9 (morbid obesity) ([facility]) Comment: Stable. 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 Normal [facility] CNPNon 08-22-2024 CNPN Telephone (FAMPTW) TENA CANNON ([id number]) 1940 F Date Time Provider Department 08/22/24 SAHRA GUY FAMPTMarybel During your visit today, we recorded the following information about you: Norma Long 08/22/2024 11:10 AM Signed Tena is calling Sahra Guy MD today is now using peerTransfer with a new insurance company( using the [...] calling: self Call patient at: at home [phone] (home) [phone] (cell) Was an appointment scheduled: Yes: Date/Time: 08/23/[address] Guy Closing statement: Results or non-symptom based questions: Thank you for calling [facility], your call will be returned within the next business day. Adonay Rivera LPN 08/22/2024 3:37 PM Signed Noted. Allergies [...] fill all Rx's that apply per patient [facility] [employer] mail order Prescriptions as of 08/22/2024 - [...] TEARS OPHTHALMIC) Use in eyes. 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 Normal [facility] Agustina 08-15-2024 PHAN Telephone (JULIANNAWADS) CANNONTENA Esquivel ([id number]) 1940 F Date Time Provider Department 08/15/24 [...] flag will happen. Please call Rachel at [phone] Leonid Leal APRN.ANTONY 08/15/2024 3:01 PM Signed Please clarify what [...] change your name. Copied and pasted from [email or web address] Please advise. Alicia Sultana 08/17/2024 9:25 AM Signed Rachel from [employer] calling back and states that since patient is scheduled with Dr. Guy on 08/23 they will be able to use his name as a certifying provider. [facility] asking for a verbal order from Dr. Guy. Please return call to [phone] Leonid Leal APRN.ANTONY 08/17/2024 10:49 AM Signed [...] in the (more content not included)... Normal [facility] CNOVon 08-11-2024 CNOV Office Visit (FPWADS ) TENA CANNON ([id number]) 1940 F Date Time Provider Department 08/11/24 1:20 PM LEONID LEAL During your visit today, we recorded the following information about you: Pulse Blood pressure 66/minute 146/77 Leonid Leal APRN.[employer] 08/11/2024 3:02 PM Signed This note was created using [employer]. Subjective Tena Cannon is a 83 year [...] Keflex [Cephalexin], Vioxx [Rofecoxib], Novocain [Procaine Hcl], Amanda-3 Fish Oil [Amanda-3 Fatty Acids-Vitamin E], Advil [Ibuprofen], and Asa [...] (LIQUID TEARS OPHTHALMIC) Use in eyes. rutin/hesp/bioflav/C/h [id number] (BIOFLEX ORAL) Take 1 capsule by mouth twice daily. CPAP BipaP @ 14/9 cm of water with humidification, removable water dispenser (for cleaning) . Mask (small/ per patient preference) , filters, tubing, humidifier and lifetime supplies. (G47.33, Z99.89) Obstructive sleep apnea on CPAP cyclopentolate (CYCLOGYL) (more content not included)... [facility] Nurse Triage (LINDY ) CANNONTENA Esquivel ([id number]) 1940 F Date Time Provider Department 08/11/24 [...] calling: self Call patient at: at home [phone] (home) [phone] (cell) Was an appointment scheduled: No Closing statement: Symptom Call: Thank you for calling [facility], your call is very important. A nurse will call in approximately 2-4 hours during business hours. If this is an emergency, please contact 911. Alondra Burk, HILDA 08/11/2024 11:49 AM Signed Called and spoke [...] Denies 11. : N/a Protocols used: Back [id number] Allergies As of Date: 08/11/2024 Noted Allergy [...] TEARS OPHTHALMIC) Use in eyes. - rutin/hesp/bioflav/C/h [id number] (BIOFLEX ORAL) Take 1 capsule by mouth twice daily. - CPAP BipaP @ 14/9 cm of water with humidification, removable water dispenser (for cleaning) . Mask (small/ per patient preference) , filters, tubing, humidifier and lifetime supplies. (G47.33, Z99.89) Obstructive sleep apnea on CPAP - cyclopentola (more content not included)... Normal [facility] Agustina 06-23-2024 ANTONY Telephone (FPWADS) TENA CANNON ([id number]) 1940 F Date Time Provider Department 06/23/24 [...] Assessed Reason for Visit: Orders [681] [facility] Prescriptions as of 06/23/2024 - oxybutynin ER [...] LOWER LEG [M25.569] 01/22/2007 VERTEBRAL FX NOS-CLOSED [[id number]] 03/24/2007 RESTLESS LEGS SYNDROME [G25.81] BONE AND [...] Encounter Status:Closed by ADONAY MARQUEZ on 06/23/24 [facility] 06-02-2024 [facility] Telephone (FPWADS) TENA CANNON ([id number]) 1940 F Date Time Provider Department 06/02/24 [...] calling: self Call patient at: at home [phone] (home) [phone] (cell) Was an appointment scheduled: No Closing statement: Results or non-symptom based questions: Thank you for calling [facility], your call will be returned within [...] TEARS OPHTHALMIC) Use in eyes. - rutin/hesp/bioflav/C/h [id number] (BIOFLEX ORAL) Take 1 capsule by mouth [...] LOWER LEG [M25.569] 01/22/2007 VERTEBRAL FX NOS-CLOSED [[id number]] 03/24/2007 RESTLESS LEGS SYNDROME [G25.81] BONE AND [...] verte (more content not included)... Normal [facility] Telephone (FAMPST) TENA CANNON ([id number]) 1940 F Date Time Provider Department 06/02/24 [...] calling: self Call patient at: at home [phone] (home) [phone] (cell) Was an appointment scheduled: No Closing statement: Results or non-symptom based questions: Thank you for calling [facility], your call will be returned within the next business day. Norma Torres [facility] Malika Sheikh LPN 06/03/2024 8:36 AM Signed [...] Assessed Reason for Visit: Patient Question [1477] Prescriptions as of 06/03/2024 - esomeprazole (NEXIUM) [...] LOWER LEG [M25.569] 01/22/2007 VERTEBRAL FX NOS-CLOSED [[id number]] 03/24/2007 RESTLESS LEGS SYNDROME [G25.81] BONE AND [...] (morbid obe (more content not included)... Normal [facility] CNPNon 05-18-2024 CNPN Telephone (LINDY) TENA CANNON ([id number]) 1940 F Date Time Provider Department 05/18/24 [...] doctor since December. Please advise her at [phone] Adonay Marquez LPN 05/18/2024 11:53 AM Signed [...] LOWER LEG [M25.569] 01/22/2007 VERTEBRAL FX NOS-CLOSED [[id number]] 03/24/2007 RESTLESS LEGS SYNDROME [G25.81] BONE AND [...] Shingles rayshawn (more content not included)... Normal [facility] 25-hydroxyvitamin D3 [Mass/V ol]on 03-03-2024 Interpretation and review of laboratory results Normal [facility] Therapy is based on measurement of Total 25-OHD with the following classification levels: Less than 20 ng/mL: Indicative of Vit D deficiency 20-30 ng/mL: Suggests Vit D insufficiency Optimal: Greater than or equal to 30 ng/mL Test performed by [employer] Competitive Immunoassay, measuring Total Vitamin D, not individual fractions. [facility] CBC (HEMOGRAM)on 03-03-2024 Erythrocyte distribution width (RBC) [Ratio] 12.3 % Normal 11.5-15.0 [facility] Comment on above: Performed By: #### L AB294 #### [employer]: JEAN PIERRE CA ([id number]) [facility] DAPHNIE [employer] (RLAB) [address] [place] [address] Hematocrit (Bld) [Volume fraction] 40.5 % Normal 35.0-47.0 [facility] Comment on above: Performed By: #### L AB294 #### [employer]: JEAN PIERRE CA ([id number]) [facility] DAPH[employer]IE [employer] ([email or web address]) [address] [place] [address] Hemoglobin (Bld) [Mass/Vol] 14.1 g/dL Normal 11.7-16.0 [facility] Comment on above: Performed By: #### L AB294 #### [employer]: JEAN PIERRE CA ([id number]) [facility] [employer]IE [employer] (SWRLAB) [address] [place] [address] MCH (RBC) [Entitic mass] 31.7 pg Normal 26.0-34.0 [facility] [facility] Comment on above: Performed By: #### L [id number] #### [employer]: JEAN PIERRE CA ([id number]) [facility] ([facility]) [address] [place] [address] MCHC 34.8 % Normal 30.5-36.0 [facility] Comment on above: Performed By: #### L [id number] #### [employer]: JEAN PIERRE CA ([id number]) [facility] ([facility]) [address] [place] [address] MCV (RBC) [Entitic vol] 91.0 fL Normal 77.0-99.0 [facility] Comment on above: Performed By: #### L [id number] #### [employer]: JEAN PIERRE CA ([id number]) [facility] ([facility]) [address] [place] [address] Platelet mean volume (Bld) [Entitic vol] 11.2 fL Normal 9.0-12.7 [facility] Comment on above: Result Comment: MPV is a calculated measurement using platelet volume ratio Performed By: #### L [id number] #### [employer]: JEAN PIERRE CA ([id number]) [facility] ([facility]) [address] [place] [address] Platelets (Bld) [#/Vol] 177 10*3/uL Normal 140-440 [facility] Comment on above: Performed By: #### L [id number] #### [employer]: JEAN PIERRE CA ([id number]) [facility] ([facility]) [address] [place] [address] RBC (Bld) [#/Vol] 4.45 10*6/uL Normal 3.80-5.20 [facility] Comment on above: Performed By: #### L [id number] #### [employer]: JEAN PIERRE CA ([id number]) [facility] ([facility]) [address] [place] [address] WBC (Bld) [#/Vol] 3.7 10*3/uL Normal 3.6-10.7 [facility] Comment on above: Performed By: #### L [id number] #### [employer]: JEAN PIERRE CA ([id number]) [facility] [employer] (SWRLAB) [address] [place] [address] CBC panel Auto (Bld)on 03-03 Erythrocyte distribution width (RBC) [Ratio] 12.3 % 11.5 - 15.0 % [facility] Hematocrit (Bld) [Volume fraction] 40.5 % 35.0 - 47.0 % [facility] Hemoglobin (Bld) [Mass/Vol] 14.1 g/dL 11.7 - 16.0 g/dL [facility] Interpretation and review of laboratory results Normal [facility] MCH (RBC) [Entitic mass] 31.7 pg 26. 0 - 34.0 pg [facility] MCHC (RBC) [Mass/Vol] 34.8 % 30.5 - 36.0 % [facility] MCV (RBC) [Entitic vol] 91 fL 77.0 - 99.0 fL [facility] Platelet mean volume (Bld) [Entitic vol] 11.2 fL 9.0 - 12.7 fL [facility] Comment on above: MPV is a calculated measurement using platelet volume ratio Platelets (Bld) [#/Vol] 177 10*3/uL 140 - 440 10*3/uL [facility] RBC (Bld) [#/Vol] 4.45 10*6/uL 3.80 - 5.2 0 10*6/uL [facility] WBC (Bld) [#/Vol] 3.7 10*3/uL 3.6 - 10.7 10*3/uL [facility] COMPREHENSIVE METABOLIC PANE Kojo 03-03-2024 Albumin [Mass/Vol] 4.1 g/dL Normal 3.5-5.0 [facility] Comment on above: Performed By: #### L AB17, LAB18 #### [employer]: JEAN PIERRE CA ([id number]) [facility] [employer] (SWRLAB) [address] [place] [address] [place] ALP [Catalytic activity/Vol] 69 U/L Normal 38-126 [facility] Comment on above: Performed By: #### L AB17, LAB18 #### [employer]: JEAN PIERRE CA ([id number]) [facility] (SWRLAB) [address] ALT [Catalytic activity/Vol] 18 U/L Normal 0-34 [facility] Comment on above: Performed By: #### L AB17, LAB18 #### [employer]: JEAN PIERRE CA ([id number]) [facility] (SWRL[facility]) [address] [place] [address] Anion gap [Moles/Vol] 7 mmol/L Normal 3-13 [facility] Comment on above: Performed By: #### Safia AB17, LAB18 #### [employer]: JEAN PIERRE CA ([id number]) [facility] ([facility]RL[facility]) [address] [place] [address] AST [Catalytic activity/Vol] 25 U/L Normal 15-46 [facility] Comment on above: Performed By: #### L AB17, LAB18 #### [employer]: JEAN PIERRE CA ([id number]) [facility] (SWRL[facility]) [address] [place] [address] Bilirubin [Mass/Vol] 0.6 mg/dL Normal 0.2-1.3 [facility] Comment on above: Performed By: #### L AB17, LAB18 #### [employer]: JEAN PIERRE CA ([id number]) [facility] ([facility]) [address] [place] [address] [place] Calcium [Mass/Vol] 9.8 mg/dL Normal 8.4-10.4 [facility] Comment on above: Performed By: #### L AB17, LAB18 #### [employer]: JEAN PIERRE CA ([id number]) [facility] ([facility]) [address] [place] [address] [place] Chloride [Moles/Vol] 102 mmol/L Normal 98-107 [facility] Comment on above: Performed By: #### L AB17, LAB18 #### [employer]: JEAN PIERRE CA ([id number]) [facility] ([facility]) [address] [place] [address] [place] CO2 [Moles/Vol] 31 mmol/L High 22-30 [facility] Comment on above: Performed By: #### L AB17, LAB18 #### [employer]: JEAN PIERRE CA ([id number]) [facility] ([facility]) [address] [place] [address] [place] Creatinine [Mass/Vol] 0.45 mg/dL Low 0.52-1.04 [facility] Comment on above: Performed By: #### Safia WHITFIELD17, LAB18 #### [employer]: JEAN PIERRE CA ([id number]) [facility] ([facility]) [address] [place] [address] GLOMERULAR FILTRATION RATE ML/MIN/1.73 SQ M.PREDICTED >90.0 Normal >60.0 [facility] Comment on above: Result Comment: Calc ulation based on the Chronic Kidney Disease Epidemiology Collaboration (CKD-EPI) equation refit without adjustment for race Performed By: #### L AB17, LAB18 #### [employer]: JEAN PIERRE CA ([id number]) [facility] ([facility]) [address] [place] [address] [place] Glucose [Mass/Vol] 87 mg/dL Normal 70-100 [facility] Comment on above: Performed By: #### L AB17, LAB18 #### [employer]: JEAN PIERRE CA ([id number]) [facility] ([facility]) [address] [place] [address] [place] Potassium [Moles/Vol] 4.2 mmol/L Normal 3.5-5.1 [facility] Comment on above: Performed By: #### L AB17, LAB18 #### [employer]: JEAN PIERRE CA ([id number]) [facility] ([facility]) [address] [place] [address] Protein [Mass/Vol] 7.1 g/dL Normal 6.3-8.2 [facility] Comment on above: Performed By: #### L AB17, LAB18 #### [employer]: JEAN PIERRE CA ([id number]) [facility] ([facility]) [address] [place] [address] Sodium [Moles/Vol] 140 mmol/L Normal 135-145 [facility] Comment on above: Performed By: #### L AB17, LAB18 #### [employer]: JEAN PIERRE CA ([id number]) [facility] ([facility]) [address] [place] [address] Urea nitrogen [Mass/Vol] 15 mg/dL Normal 7-17 [facility] Comment on above: Performed By: #### L AB17, LAB18 #### [employer]: JEAN PIERRE CA ([id number]) [facility] ([facility]) [address] [place] [address] Comprehensive metabolic 1998 panelon 03-03-2024 Albumin [Mass/Vol] 4.1 g/dL 3.5 - 5.0 g/dL [facility] ALP [Catalytic activity/Vol] 69 U/L 38 - 126 U/L [facility] ALT [Catalytic activity/Vol] 18 U/L 0 - 34 U/L [facility] Anion gap [Moles/Vol] 7 mmol/L 3 - 13 mmol/L [facility] AST [Catalytic activity/Vol] 25 U/L 15 - 46 U/L [facility] Bilirubin [Mass/Vol] 0.6 mg/dL 0.2 - 1 .3 mg/dL [facility] Calcium [Mass/Vol] 9.8 mg/dL 8.4 - 10. 4 mg/dL [facility] Chloride [Moles/Vol] 102 mmol/L 98 - 10 7 mmol/L [facility] CO2 [Moles/Vol] 31 mmol/L High 22 - 30 mmol/L [facility] [employer] Creatinine [Mass/Vol] 0.45 mg/dL Low 0.52 - 1.04 mg/dL [facility] [employer] GFR/1.73 sq M.predicted (S/P/Bld) [Vol rate/Area] - PINF [facility] Comment on above: Calculation based on the Chronic Kidney Disease Epidemiology Collaboration (CKD-EPI) equation refit without adjustment for race Glucose [Mass/Vol] 87 mg/dL 70 - 100 mg/dL [facility] [employer] Potassium [Moles/Vol] 4.2 mmol/L 3.5 - 5.1 mmol/L [facility] [employer] Protein [Mass/Vol] 7.1 g/dL 6.3 - 8.2 g/dL [facility] Sodium [Moles/Vol] 140 mmol/L 135 - 145 mmol/L [facility] Urea nitrogen [Mass/Vol] 15 mg/dL 7 - 17 mg/d L [facility] HEMOGLOBIN A1Con 03-03-2024 Glucose [Mass/Vol] 85 mg/dL Normal [facility] Comment on above: Performed By: #### L AB90 #### [employer]: JEAN PIERRE CA ([id number]) [facility] ([email or web address]) [address] [place] [address] HbA1c (Bld) [Mass fraction] 4.6 % Normal <5.7 [facility] Comment on above: Result Comment: Norm al less than 5.7% Prediabetes 5.7% to 6.4% Diabetes 6.5% or higher --HgbA1C levels may not be accurate in patients who have renal disease, received recent blood transfusions, are anemic, or who have dyshemoglobinemia. Performed By: #### L AB90 #### [employer]: JEAN PIERRE CA ([id number]) [facility] (SWRL[facility]) [address] [place] [address] Hemoglobin A1con 03-03-2024 Average glucose Estimated from glycated hemoglobin (Bld) [Mass/Vol] 85 mg/dL [facility] HbA1c (Bld) [Mass fraction] 4.6 % NINF - 5.7 % [facility] Comment on above: Normal less than 5.7 % Prediabetes 5.7% to 6.4% Diabetes 6.5% or higher --HgbA1C levels may not be accurate in patients who have renal disease, received recent blood transfusions, are anemic, or who have dyshemoglobinemia. [facility] LIPID PANELon 03-03-2024 Cholesterol [Mass/Vol] 182 mg/dL Normal <200 [facility] Comment on above: Performed By: #### Safia WHITFIELD17, LAB18 #### [employer]: JEAN PIERRE CA ([id number]) [facility] (SWRL[facility]) [address] Cholesterol in HDL [Mass/Vol] 69 mg/dL High 40-60 [facility] Comment on above: Performed By: #### Safia WHITFIELD17, LAB18 #### [employer]: JEAN PIERRE CA ([id number]) [facility] (SWRL[facility]) [address] [place] [address] Cholesterol.total/Choles terol in HDL [Mass ratio] 3 {ratio} Normal [facility] Comment on above: Result Comment: Ref Range: < 3 Low Risk for CHD 3-6 Mod Risk for CHD > 6 High Risk for CHD Performed By: #### Safia ORTIZ, LAB18 #### [employer]: JEAN PIERRE CA ([id number]) [facility] (SWRL[facility]) [address] LOW DENSITY LIPOPROTEIN 92 mg/dL Normal 0-<100 [facility] Comment on above: Performed By: #### Safia AB17, LAB18 #### [employer]: JEAN PIERRE CA ([id number]) [facility] (SWRL[facility]) [address] [place] [address] [place] Triglyceride [Mass/Vol] 107 mg/dL Normal <150 [facility] Comment on above: Performed By: #### Safia AB17, LAB18 #### [employer]: JEAN PIERRE CA ([id number]) [facility] (SWRL[facility]) [address] Lipid 1996 panelon 4 Cholesterol [Mass/Vol] 182 mg/dL NINF - 200 mg/dL [facility] Cholesterol in HDL [Mass/Vol] 69 mg/dL High 40 - 60 mg/dL [facility] Cholesterol in LDL [Mass/Vol] 92 mg/dL 0 - <100 [facility] Cholesterol.total/Choles terol in HDL [Mass ratio] 3 {ratio} [facility] Comment on above: Ref Range: < 3 Low Risk for CHD 3-6 Mod Risk for CHD > 6 High Risk for CHD Triglyceride [Mass/Vol] 107 mg/dL NINF - 150 mg/dL [facility] No Panel Informationon 03-03 Interpretation and review of laboratory results Abnormal [facility] VITAMIN D DEFICIENCY SCREENI NG (VIT D 25)on 03-03-2024 VIT D 25-OH, TOTAL 65 ng/mL Normal 30-100 [facility] Comment on above: Result Comment: JOHN PAUL Luo COMMENTS: Therapy is based on measurement of Total 25-OHD with the following classification levels: Less than 20 ng/mL: Indicative of Vit D deficiency 20-30 ng/mL: Suggests Vit D insufficiency Optimal: Greater than or equal to 30 ng/mL Test performed by [employer] Immunoassay, measuring Total Vitamin D, not individual fractions. Performed By: #### L AB535 #### [employer]: MAT HOLLIDAY ([id number]) [facility] [address] [place] [address] Vitamin D Deficiency Screeni ng (Vit D 25)on 03-03-2024 25-hydroxyvitamin D3 [Mass/Vol] 65 ng/mL 30 - 100 ng/mL [facility] Surgical Tissue Examon 09-07 Surgical Tissue Exam Test performed at [place] [address] NAME: TENA CANNON REQUESTING: MARBELLA BRUNSON M.D. [...] of immunohistochemical tests have been determined by [facility]'s Department of Pathology and Laboratory Medicine in a manner consistent with CLIA requirements. One or more of these tests have not been cleared or approved by the FDA. [facility] is regulated under CLIA as qualified to [...] PRINTED: 09/09/2018 Page 1 of 1 Normal [facility] Comment on above: Performed By: #### S URG #### [place] [address] Hemogramon 08-05-2018 Erythrocyte distribution width Auto Ratio (RBC) 13.7 % Normal 11.5-14.5 [facility] Comment on above: Performed By: #### H EMOG ####[facility] [place] [address] Hematocrit Auto Volume Fraction (Bld) 40.1 % Normal 35.0-47.0 [facility] Comment on above: Performed By: #### H EMOG ####[facility] [employer] [address] [place] [address] Hemoglobin mass conc (Bld) 13.0 g/dL Normal 11.7-16.0 [facility] Comment on above: Performed By: #### H EMOG ####[facility] [place] [address] MCH Auto Entitic mass (RBC) 29.0 pg Normal 26.0-34.0 [facility] Comment on above: Performed By: #### H EMOG ####[facility] [place] [address] MCHC Auto mass conc (RBC) 32.4 % Normal 32.0-36.0 [facility] Comment on above: Performed By: #### H EMOG ####[facility] [place] [address] MCV Auto Entitic volume (RBC) 89.5 fL Normal 79.0-98.0 [facility] Comment on above: Performed By: #### H EMOG ####[facility] [place] [address] Platelet mean volume Auto Entitic volume (Bld) 8.7 fL Normal 7.4-10.4 [facility] Comment on above: Performed By: #### H EMOG ####[facility] [place] [address] Platelets Auto #/vol (Bld) 260 10*3/uL Normal 140-440 [facility] Comment on above: Performed By: #### H EMOG ####[facility] [place] [address] RBC Auto #/vol (Bld) 4.48 10*6/uL Normal 3.80-5.20 [facility] Comment on above: Performed By: #### H EMOG ####[facility] [place] [address] WBC Auto #/vol (Bld) 5.7 10*3/uL Normal 3.6-10.7 [facility] Comment on above: Performed By: #### H EMOG ####[facility] [place] [address] Hemogramon 05-15-2018 Erythrocyte distribution width Auto Ratio (RBC) 13.4 % Normal 11.5-14.5 [facility] Comment on above: Performed By: #### H CONRADO GARCIA ####[facility] [place] [address] Hematocrit Auto Volume Fraction (Bld) 37.2 % Normal 35.0-47.0 [facility] Comment on above: Performed By: #### H CONRADO GARCIA ####[facility] [place] [address] Hemoglobin mass conc (Bld) 12.8 g/dL Normal 11.7-16.0 [facility] Comment on above: Performed By: #### H CONRADO GARCIA ####[facility] [place] [address] MCH Auto Entitic mass (RBC) 30.5 pg Normal 26.0-34.0 [facility] Comment on above: Performed By: #### CONRADO SMITH ####[address] [place] [address] MCHC Auto mass conc (RBC) 34.3 % Normal 32.0-36.0 [facility] Comment on above: Performed By: #### CONRADO SMITH ####[address] [place] [address] MCV Auto Entitic volume (RBC) 88.8 fL Normal 79.0-98.0 [facility] Comment on above: Performed By: #### CONRADO SMITH ####[facility] [place] [address] Platelet mean volume Auto Entitic volume (Bld) 9.0 fL Normal 7.4-10.4 [facility] Comment on above: Performed By: #### CONRADO SMITH ####[address] [place] [address] Platelets Auto #/vol (Bld) 199 10*3/uL Normal 140-440 [facility] Comment on above: Performed By: #### CONRADO SMITH ####[address] [place] [address] RBC Auto #/vol (Bld) 4.19 10*6/uL Normal 3.80-5.20 [facility] Comment on above: Performed By: #### H EMOAileen, FEIBC ####[facility] [place] [address] WBC Auto #/vol (Bld) 7.1 10*3/uL Normal 3.6-10.7 [facility] Comment on above: Performed By: #### H EMOG, FEIBC ####[facility] [place] [address] Iron AND TIBCon 05-15-2018 Saturation 13 % Low 15-50 [facility] Comment on above: Performed By: #### H EMOAileen, FEIBC ####[facility] [place] [address] Total Iron Binding Cap. 269 ug/dL Normal 261-497 [facility] Comment on above: Performed By: #### H EMOAileen, FEIBC ####[facility] [place] [address] Iron, Total 35 ug/dL Low 37-170 [facility] Comment on above: Performed By: #### H EMOAileen, FEIBC ####[facility] [place] [address] Vital Signs Date Time Vital Sign Value Performing Clinician Amando orellana 03-25-2025 19:04-0400 Body temperature 98.4 [degF] Chey Kumar MD [facility] 03-25-2025 19:04-0400 Diastolic blood pressure 74 mm[Hg] Chey Kumar MD [facility] 03-25-2025 19:04-0400 Heart rate 83 /min Chey Kumar MD [facility] 03-25-2025 19:04-0400 Respiratory rate 18 /min Chey Kumar MD [facility] 03-25-2025 19:04-0400 SaO2% (BldA) [Mass fraction] 97 % Chey Kumar MD [facility] 03-25-2025 19:04-0400 Systolic blood pressure 125 mm[Hg] Chey Kumar MD [facility] 03-25-2025 16:46-0400 Body height 142.01 cm Chey Kumar MD [facility] 03-25-2025 16:46-0400 Body mass index (BMI) [Ratio] 34 kg/m2 Chey Kumar MD [facility] 03-25-2025 16:46-0400 Body weight 68.5 kg Chey Kumar MD [facility] 02-18-2025 13:04-0400 Body height 142.24 cm Chey Kumar MD [facility] 02-15-2025 17:53-0400 Body height 142.24 cm Chey Kumar MD [facility] 02-15-2025 17:51-0400 Body height 142.24 cm Chey Kumar MD [facility] 02-15-2025 17:27-0400 Body height 142.24 cm Chey Kumar MD [facility] 02-07-2025 11:01-0400 Body temperature 97.11 [degF] Narciso Sherman PA-C Work Phone: [facility] 02-07-2025 11:01-0400 Diastolic blood pressure 72 mm[Hg] Narciso Sherman PA-C Work Phone: [facility] 02-07-2025 11:01-0400 Heart rate 102 /min Narciso Sherman PA-C Work Phone: [facility] 02-07-2025 11:01-0400 Respiratory rate 14 /min Narciso Sherman PA-C Work Phone: [facility] 02-07-2025 11:01-0400 SaO2% (BldA) [Mass fraction] 96 % Narciso Sherman PA-C Work Phone: [facility] 02-07-2025 11:01-0400 Systolic blood pressure 110 mm[Hg] Narciso Sherman PA-C Work Phone: [facility] 09-16-2024 11:44-0500 Diastolic blood pressure 70 mm[Hg] Sahra Guy MD Work Phone: [facility] 09-16-2024 11:44-0500 Systolic blood pressure 112 mm[Hg] Sahra Guy MD Work Phone: [facility] 09-16-2024 11:28-0500 Heart rate 76 /min Sahra Guy MD Work Phone: [facility] 08-23-2024 10:39-0500 Diastolic blood pressure 74 mm[Hg] Sahra Guy MD Work Phone: [facility] 08-23-2024 10:39-0500 Systolic blood pressure 116 mm[Hg] Sahra Guy MD Work Phone: [facility] 08-23-2024 10:07-0500 Body height 142.2 cm Sahra Guy MD Work Phone: [facility] 08-23-2024 10:07-0500 Heart rate 60 /min Sahra Guy MD Work Phone: [facility] 08-23-2024 10:07-0500 SaO2% (BldA) [Mass fraction] 95 % Sahra Guy MD Work Phone: [facility] 08-11-2024 13:37-0500 Diastolic blood pressure 77 mm[Hg] Leonid Leal BREAST TRIMMER.[employer]ING [employer] LIAISON Work Phone: [facility] 08-11-2024 13:37-0500 Heart rate 66 /min Leonid Leal BREAST TRIMMER.CN P Work Phone: [facility] 08-11-2024 13:37-0500 SaO2% (BldA) [Mass fraction] 98 % Leonid Leal BREAST TRIMMER.ENGINEERING [employer]ODUCTION LIAISON Work Phone: [facility] 08-11-2024 13:37-0500 Systolic blood pressure 146 mm[Hg] Leonid Leal BREAST TRIMMER.ENGINEERING [employer]ODUCTION LIAISON Work Phone: [facility] 12-10-2023 09:18-0400 Body height 142.2 cm Sahra Guy MD Work Phone: [facility] 12-10-2023 09:18-0400 Diastolic blood pressure 81 mm[Hg] Sahra Guy MD Work Phone: [facility] 12-10-2023 09:18-0400 Heart rate 68 /min Sahra Guy MD Work Phone: [facility] 12-10-2023 09:18-0400 SaO2% (BldA) [Mass fraction] 98 % Sahra Guy MD Work Phone: [facility] 12-10-2023 09:18-0400 Systolic blood pressure 156 mm[Hg] Sahra Guy MD Work Phone: [facility] 04-03-2023 13:58-0400 Body height 139.7 cm Ken Trent MD Work Phone: [facility] 04-03-2023 13:58-0400 Diastolic blood pressure 90 mm[Hg] Ken Trent MD Work Phone: [facility] 04-03-2023 13:58-0400 Heart rate 69 /min Ken Trent MD Work Phone: [facility] 04-03-2023 13:58-0400 Systolic blood pressure 137 mm[Hg] Ken Trent MD Work Phone: [facility] 03-10-2023 09:59-0400 Body height 142.2 cm Sahra Guy MD Work Phone: [facility] 03-10-2023 09:59-0400 Diastolic blood pressure 67 mm[Hg] Sahra Guy MD Work Phone: [facility] 03-10-2023 09:59-0400 Heart rate 70 /min Sahra Guy MD Work Phone: [facility] 03-10-2023 09:59-0400 SaO2% (BldA) [Mass fraction] 96 % Sahra Guy MD Work Phone: [facility] 03-10-2023 09:59-0400 Systolic blood pressure 146 mm[Hg] Sahra Guy MD Work Phone: [facility] 10-29-2021 10:36-0400 Diastolic blood pressure 60 mm[Hg] Sahra Guy MD Work Phone: [facility] 10-29-2021 10:36-0400 Systolic blood pressure 120 mm[Hg] Sahra Guy MD Work Phone: [facility] 10-29-2021 09:52-0400 Heart rate 71 /min Sahra Guy MD Work Phone: [facility] Encounters Encounter Date Encounter Type Care Provider Facility Start: 06-07-2025 ambulatory Efewongbe Oleghe OLS Fa cility:[facility] Start: 05-09-2025 ambulatory Efewongbe Oleghe Facili ty:[facility] Start: 05-03-2025 ambulatory Efewongbe Oleghe OLS Fa cility:[facility] Start: 04-11-2025 ambulatory Efewongbe Oleghe Facili ty:[facility] Start: 04-11-2025 End: 04-11-2025 ambulatory Efewongbe Oleghe Facility:[facility] Start: 04-05-2025 ambulatory Efewongbe Oleghe Facili ty:[facility] Start: 04-05-2025 Registered Referred Chey Kumar MD -[facility] Start: 03-30-2025 End: 03-30-[address] Chepe Melo MD -[facility] Start: 03-30-2025 End: 03-30-2025 ambulatory Chey Kumar MD -[facility] Start: 03-25-2025 End: 03-25-2025 Emergency department patient visit Chey Kumar MD -Emergency Department Work Phone: Start: 03-24-2025 End: 03-24-2025 ambulatory Chey Kumar MD -[facility] Start: 03-24-2025 End: 03-24-2025 Patient encounter procedure Roxanne QUINONEZ -[facility] Work Phone: Start: 03-22-2025 End: 03-22-2025 Telephone encounter Sahra Guy MD Work Phone: [facility] Comment on above: FYI-No Action Needed Start: 03-20-2025 End: 03-20-2025 ambulatory Chey Kumar MD [facility] Start: 03-20-2025 End: 03-20-2025 Patient encounter procedure Roxanne QUINONEZ -[facility] Work Phone: Start: 03-07-2025 End: 03-07-2025 Patient encounter procedure Roxanne QUINONEZ -[facility] Work Phone: Start: 03-07-2025 End: 03-07-2025 [facility] Start: 03-07-2025 Registered Referred Chey Kumar MD [facility] Start: 02-28-2025 ambulatory Chey Kumar OLS Fa cility:[facility] Start: 02-28-2025 Registered Referred Chey Kumar MD [facility] Start: 02-21-2025 ambulatory Efgarfield Kumar OLS Fa cility:[facility] Start: 02-21-2025 [facility] Start: 02-14-2025 End: 02-14-2025 [facility] Start: 02-14-2025 End: 02-14-[address] [facility] Start: 02-14-2025 ambulatory Efgarfield Kumar OLS Fa cility:[facility] Start: 02-14-2025 [facility] Start: 02-10-2025 End: 02-14-2025 Telephone encounter Marilyn Santos PA-C Work Phone: Urology Comment on above: Results; Orders Start: 02-09-2025 End: 02-09-2025 Orders Only Marilyn Santos PA-C Work Phone: Urology Start: 02-09-2025 Registered Referred Chey Bell Start: 02-08-2025 End: 02-08-2025 Telephone encounter Narciso Sherman PA-C Work Phone: Urology Comment on above: Assorter - O ther Start: 02-07-2025 End: 02-07-2025 Patient encounter procedure Narciso Sherman PA-C Work Phone: Urology Comment on above: Urinary tract infect ion without hematuria, site unspecified (Primary Dx); Frequent urination; Burning with urination; Compression fracture of thoracic vertebra with routine healing, unspecified thoracic vertebral level, subsequent encounter; Screening for genitourinary condition Start: 02-07-2025 End: 02-07-2025 ambulatory SAHRA GUY Facility:[facility] Start: 02-07-2025 Registered Referred Chey Bell Start: 02-06-2025 End: 02-07-2025 Chart abstracting Narciso Sherman PA-C Work Phone: Urology Start: 01-31-2025 ambulatory Chey Bauman cility:[facility] Start: 01-31-2025 Registered Referred Chey Bell Start: 01-24-2025 End: 01-24-2025 Patient encounter procedure Roxanne QUINONEZ -[facility] Work Phone: Start: 01-24-2025 End: 01-24-2025 ambulatory Roxanne Paidlla NP [facility] Start: 01-24-2025 Registered Referred Chey Bell Start: 01-19-2025 End: 01-19-2025 ambulatory Roxanne Padilla NP [facility] Start: 01-19-2025 End: 01-19-2025 Patient encounter procedure Roxanne Padilla NP-C -[facility] Work Phone: Start: 01-17-2025 ambulatory Chey Kumar OLS Fa cility:[facility] Start: 01-17-2025 Registered Referred Chey Bell Start: 01-10-2025 End: 01-10-2025 Patient encounter procedure Roxanne Padilla [facility] Work Phone: Start: 01-10-2025 End: 01-10-2025 ambulatory Roxanne [facility] Start: 01-10-2025 Registered Referred Chey Bell Start: 01-09-2025 End: 02-18-2025 ambulatory Loinel Joiner MA [facility] Start: 01-09-2025 End: 02-18-2025 Patient encounter [facility] Comment on above: Population Health Na vigation Outreach ([facility]) Start: 01-03-2025 ambulatory Chey THOMAS Fa cility:[facility] Start: 01-03-2025 Registered Referred Chey Bell Start: 12-28-2024 End: 12-28-2024 Patient encounter procedure Roxanne Gonzalezradha [facility] Work Phone: Start: 12-28-2024 End: 12-28-2024 [facility] Start: 12-28-2024 Registered Referred Chey Bell Start: 12-27-2024 ambulatory Chey Kumar OLS Fa cility:[facility] Start: 12-27-2024 Registered Referred Chey Bell Start: 12-22-2024 End: 12-22-2024 [facility] Start: 12-22-2024 End: 12-22-2024 Patient encounter procedure Roxanne Tickton AVID EDITOR-C -[facility] Work Phone: Start: 12-20-2024 End: 12-20-[address] Chey Kumar MD -[facility] Work Phone: Start: 12-20-2024 End: 12-20-2024 ambulatory Chey Kumar -[facility] Start: 12-20-2024 Registered Referred Chey Kumar MD -[facility] Start: 12-12-2024 End: 12-19-2024 Evaluation and management of inpatient SAHRA GUY Facility:[facility] Start: 12-08-2024 End: 12-10-2024 ambulatory Sahra Guy MD Work Phone: [facility] Comment on above: nausea and barely ea ting Start: 12-08-2024 End: 12-09-2024 Telephone encounter Sahra Guy MD Work Phone: [facility] Comment on above: Insurance Authorizat ion Start: 12-07-2024 End: 12-08-2024 Telephone encounter Sahra Guy MD Work Phone: [facility] Comment on above: Medication Problem ( Lidocaine 5% is covered, not the 4%) Start: 12-02-2024 End: 12-08-2024 ambulatory Sahra Guy MD Work Phone: [facility] Comment on above: Nurse Triage Call; P atient Update Start: 11-30-2024 End: 11-30-2024 ambulatory Sahra Guy MD Work Phone: [facility] Comment on above: Allied Health Visit (Medication Adherence Outreach ) Start: 10-24-2024 End: 10-24-2024 Telephone encounter Sahra Guy MD Work Phone: [facility] Comment on above: Received Outside Med [facility] Records ([facility] OT Evaluation performed no further treatment. 10/20/2024) Start: 10-19-2024 End: 10-19-2024 Telephone encounter Sahra Guy MD Work Phone: [facility] Comment on above: Orders ([facility]) Start: 10-12-2024 End: 10-12-2024 Telephone encounter Sahra Guy MD Work Phone: [facility] Comment on above: PT Eval Start: 10-11-2024 End: 10-11-2024 Telephone encounter Sahra Guy MD Work Phone: Family Practice Comment on above: Orders Start: 10-06-2024 End: 11-12-2024 Telephone encounter Sahra Guy MD Work Phone: [facility] Comment on above: Patient Question (Sl ipped in shower) Start: 09-23-2024 End: 09-26-2024 ambulatory Sahra Guy MD Work Phone: [facility] Comment on above: Nurse Triage Call; R eturn Call Request Start: 09-23-2024 End: 09-23-2024 Telephone encounter Sahra Guy MD Work Phone: [facility] Comment on above: Received Outside [facility] Records ([facility] Face to Face Encounter Documentation encounter 08/23/2024) Start: 09-16-2024 End: 09-16-2024 ambulatory SAHRA GUY Facility:[facility] Start: 09-16-2024 End: 09-16-2024 Office outpatient visit 25 minutes Sahra Guy MD Work Phone: [facility] Comment on above: Falling episodes (Pr imary Dx); Acute left-sided low back pain with left-sided sciatica; Fall from motorized wheelchair, initial encounter; Post-polio syndrome; Neck pain, chronic; Chronic hand pain, unspecified laterality Start: 09-09-2024 End: 12-09-2024 Telephone encounter Sahra Guy MD Work Phone: [facility] Comment on above: Orders; Patient Upda te (Lab orders were faxed) Hyperglycemia, unspe cified (Primary Dx); Mixed hyperlipidemia Start: 09-09-2024 End: 09-09-2024 ambulatory SAHRA GUY [facility] Start: 09-02-2024 End: 09-02-2024 Telephone encounter [...] Telephone encounter Sahra Guy MD Work Phone: [facility] Comment on above: Orders ([facility] Start: 08-23-2024 End: 08-23-2024 ambulatory SAHRA GUY Facility:[facility] Start: 08-23-2024 End: 08-23-2024 Patient encounter procedure Sahra Guy MD Work Phone: [facility] Comment on above: Medicare annual well ness visit, subsequent (Primary Dx); Obesity, Class III, 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); 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); Post-polio syndrome; Hyperlipidemia, mixed; Hyperglycemia; Vitamin D deficiency; Essential hypertension; Primary osteoarthritis involving multiple joints; Abnormality of gait; Falling episodes Start: 08-22-2024 End: 08-22-2024 Telephone encounter Sahra Guy MD Work Phone: [facility] [place] Comment on above: Patient Update (At o [...] Office outpatient visit 15 minutes Leonid Leal APRN.ENGINEERING PRODUCTION LIAISON Work Phone: [facility] Comment on above: Acute left-sided low back pain with left-sided sciatica (Primary Dx) Start: 07-05-2024 End: 07-05-2024 Refill Sahra Guy MD Work Phone: [facility] Comment on above: Refill Request Start: 06-23-2024 End: 06-23-2024 Telephone encounter Sahra Guy MD Work Phone: [facility] Comment on above: Orders ([facility] [place]) Start: 06-20-2024 End: 06-20-2024 Refill Sahra Guy MD Work Phone: [facility] Comment on above: Refill Request Start: 06-02-2024 End: 06-03-2024 Telephone encounter Sahra Guy MD Work Phone: [facility] Comment on above: Question Patient Question Start: 05-18-2024 End: 05-18-2024 Telephone encounter Sahra Guy MD Work Phone: [facility] Comment on above: RSV vaccine Start: 04-06-2024 End: 04-06-2024 Refill Sahra Guy MD Work Phone: [facility] Comment on above: Refill Request Start: 03-07-2024 Telephone encounter Sahra Guy MD Work Phone: [facility] Comment on above: Results Start: 03-03-2024 End: 06-02-2024 Transcribe Orders Leonid Roach BREAST TRIMMER - ENGINEERING PRODUCTION LIAISON Work Phone: [facility] Comment on above: Hyperglycemia, unspe cified (Primary Dx); Mixed hyperlipidemia; Vitamin D deficiency, unspecified; Other specified disorders of bone density and structure, unspecified site Start: 02-26-2024 Telephone encounter Sahra Guy MD Work Phone: [facility] Comment on above: Orders (Labs fax to [facility]) Start: 02-23-2024 Refill Sahra reed MD Work Phone: [facility] Comment on above: Refill Request Start: 01-25-2024 Refill Sahra reed MD Work Phone: [facility] Comment on above: Refill Request Start: 01-12-2024 Refill Sahra reed MD Work Phone: [facility] Comment on above: Refill Request Start: 12-10-2023 End: 12-10-2023 Patient encounter procedure Sahra Guy MD Work Phone: [facility] Comment on above: 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); Obstructive sleep apnea on CPAP; Gastroesophageal reflux disease, unspecified whether esophagitis present; Neck pain, chronic; OAB (overactive bladder); Rosacea; Class 3 severe obesity with body mass index (BMI) of 40.0 to 44.9 in adult, unspecified obesity type, unspecified whether serious comorbidity present ([facility]); Glaucoma, unspecified glaucoma type, unspecified laterality; Restless legs syndrome (RLS) Start: 11-25-2023 Telephone encounter Sahra Guy MD Work Phone: [facility] Comment on above: Received Outside [facility] Records ([place] Residence I Move in Assessment 11/25/2023); Patient Update Start: 07-13-2023 Refill Leonid Duggan PRN.CNP Work Phone: [facility] Comment on above: Refill Request Start: 05-08-2023 Refill Sahra reed MD Work Phone: [facility] Comment on above: Refill Request Start: 04-23-2023 End: 04-23-2023 ambulatory [facility] Comment on above: Post-polio syndrome; Poliomyelitis osteopathy of multiple sites (HCC) Start: 04-09-2023 End: 04-09-2023 Orders Only Ken Trent MD Work Phone: [facility] Comment on above: Post-polio syndrome (Primary Dx) Assorter - O ther Dysphagia, unspecifi ed type (Primary Dx); Post-polio syndrome Start: 04-03-2023 End: 04-03-2023 Office outpatient new 60 minutes Ken Trent MD Work Phone: [facility] Comment on above: Post-polio syndrome (Primary Dx) Start: 03-23-2023 Telephone encounter Sahra Guy MD Work Phone: [facility] Comment on above: Orders (OT referral request [place] [facility] ) Start: 03-11-2023 Refill Sahra reed MD Work Phone: [facility] Comment on above: Refill Request Start: 03-10-2023 End: 03-10-2023 Patient encounter procedure Sahra Guy MD Work Phone: [facility] Comment on above: Post-polio syndrome (Primary Dx); Poliomyelitis osteopathy of multiple sites ([facility]); Late effects of acute poliomyelitis; Obesity, Class III, BMI 40-49.9 (morbid obesity) ([facility]); 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 ([facility]); Obstructive sleep apnea on CPAP; OAB (overactive bladder); Gastroesophageal reflux disease, unspecified whether esophagitis present Start: 12-09-2022 Telephone encounter Sahra Guy MD Work Phone: [facility] Comment on above: Forms ([employer] Clearance Form ) Start: 09-30-2022 Telephone encounter Sahra Guy MD Work Phone: [facility] Comment on above: medicaiton problem Start: 09-26-2022 Telephone encounter Sahra Guy MD Work Phone: [facility] Comment on above: Results Start: 09-17-2022 ambulatory Sahra reed MD Work Phone: [facility] Comment on above: Nurse Triage Call Start: 08-01-2022 Refill Sahra reed MD Work Phone: [facility] Comment on above: Refill Request Start: 07-14-2022 Telephone encounter Sahra Guy MD Work Phone: Family Medicine Comment on above: Received Outside Med ical Records (Health care provider certification of disability license plates. ) Start: 06-12-2022 End: 06-12-2022 ambulatory Leonid Roach BREAST TRIMMER.ENGINEERING PRODUCTION LIAISON Work Phone: [facility] Comment on above: COVID-19 (Primary Dx ) Start: 06-12-2022 End: 06-12-2022 Telemedicine consultation with patient Leonid Roach BREAST TRIMMER.ENGINEERING PRODUCTION LIAISON Work Phone: [facility] Start: 06-11-2022 End: 06-11-2022 ambulatory Nurse Triage Kendrick/[place] Work Phone: Nurse Phone Triage Comment on above: Covid Positive Start: 06-11-2022 Telephone encounter Sahra Guy MD Work Phone: [facility] Comment on above: Covid Positive (/) Start: 04-09-2022 Telephone encounter Sahra Guy MD Work Phone: [facility] Comment on above: Results (Labs ) Start: 04-03-2022 Refill Sahra reed MD Work Phone: [facility] Comment on above: Med Change Request Start: 03-25-2022 Refill Sahra reed MD Work Phone: [facility] Comment on above: Refill Request Start: 03-19-2022 Telephone encounter Sahra Guy MD Work Phone: Family Practice Comment on above: Orders (Thyroid/); P atient Question (Draw labs at the office/) Start: 12-19-2021 Telephone encounter Sahra Guy MD Work Phone: [facility] Comment on above: Request for PCP sign off (from [facility]) Start: 12-13-2021 ambulatory Nopcp (Historical) [facility] Start: 12-04-2021 Telephone encounter Sahra Guy MD Work Phone: [facility] Comment on above: Orders ([facility] 11/05/2021 - 11/25/2021) Home Care Start: 12-02-2021 Telephone encounter Sahra Guy MD Work Phone: Family Practice Comment on above: Patient Update (Upda te and orders signed and faxed to [facility]. ) Start: 11-28-2021 Telephone encounter Sahra Guy MD Work Phone: Family Medicine Comment on above: Received Outside Med ical Records ([facility] Discharge summary 11/28/2021) Start: 11-21-2021 Telephone encounter Sahra Guy MD Work Phone: Family Practice Comment on above: Orders ([facility] 11/21/2021) Start: 11-20-2021 Telephone encounter Sahra Guy MD Work Phone: [facility] [place] Comment on above: Patient Update Start: 11-05-2021 Telephone encounter Sahra Guy MD Work Phone: Family Practice Comment on above: Patient Update Start: 10-31-2021 Telephone encounter Leonid Low ns BREAST TRIMMER.ENGINEERING PRODUCTION LIAISON Work Phone: Family Practice Comment on above: [...] End: 09-07-2018 Evaluation and management of inpatient [facility] Facility:[facility] Start: 08-05-2018 Patient encounter procedure [facility]KNOWN [facility] Start: 05-15-2018 Patient encounter procedure UNKNOWN [facility] Start: 10-03-2017 Patient encounter procedure UNKNOWN PROVID[facility] Procedures Date Procedure Procedure Detail Performing Clinician [...] - S daniella or Plasma Leonid Roach BREAST TRIMMER - ENGINEERING PRODUCTION LIAISON Work Phone: Start: 12-10-2023 Adult depression scr eening assessment Sahra Guy MD Work Phone: Plan of Treatment Date Care Activity Detail Author Start: 09-09-2029 Lipid panel Lipid Panel [facility] Start: 03-03-2029 Lipid panel Lipid Panel [facility] Start: 12-20-2027 Diabetes Screening Diabetes Screening [facility] Start: 12-09-2027 Diabetes Screening Diabetes Screening [facility] Start: 09-09-2027 Diabetes Screening Diabetes Screening [facility] Start: 08-25-2027 Diabetes Screening Diabetes Screening [facility] Start: 03-03-2027 Diabetes Screening Diabetes Screening [facility] Start: 09-25-2025 DIABETES SCREEN DIABETES SCREEN [facility] Start: 09-25-2025 Diabetes Screening Diabetes Screening [facility] Start: 09-22-2025 Medicare Annual Wellness (AWV) Medicare Annual Wellness (AWV) [facility] Start: 04-08-2025 DIABETES SCREEN DIABETES SCREEN [facility] Start: 04-03-2025 Influenza vaccination [facility] Start: 03-30-2025 L/S Spine Min 4 Views L/S Spine Min 4 Views [facility] Start: 03-30-2025 XR Spine Lumbar and Sacrum GE 4 Views [facility] Start: 03-30-2025 X-ray of lumbar spine, two or three views Lumbar Spine 2 or 3 Views [facility] Start: 03-30-2025 XR Lumbar spine 2 or 3 Views [facility] Start: 03-25-2025 [facility] Start: 01-31-2025 End: 01-31-2025 Patient encounter procedure 01/31/2025 2:00 PM EDT Office Visit Urology [address] [place] [address] Nataliya Dominguez MD [address] [place] [id number] Acute urinary retention [R33.8] Urology Comment on above: Acute urinary retention [R33.8] Start: 01-10-2025 End: 01-10-2025 Patient encounter procedure 01/10/2025 8:00 AM EDT Office Visit Gastroenterology [address] [place] [address] Kinjal Hernandes APRN.ENGINEERING PRODUCTION LIAISON [address] [place] [address] constipation Gastroenterology Comment on above: constipation Start: 01-02-2025 End: 01-02-2025 Patient encounter procedure 01/02/2025 10:30 AM EDT Office Visit Neurology [address] [place], [place] [id number] Timothy Shine MD [address] [place], [place] [id number] 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 Start: 12-14-2024 End: 12-14-2024 Patient encounter procedure 12/14/2024 3:00 PM EDT Office Visit [facility] [address] [place] [address] [phone] Harinder Kiran PA-C [address] [place] [id number] Acute left-sided low back pain with left-sided sciatica [M54.42] [facility] Comment on above: Acute left-sided low back pain with left -sided sciatica [M54.42] Start: 12-09-2024 Anxiety Screening Anxiety Screening [facility] Start: 12-09-2024 Depression Screening Depression Screening [facility] Start: 11-15-2024 Covid-19 Vaccine ( season) Covid-19 Vaccine ( season) [facility] Start: 10-29-2024 DIABETES SCREEN DIABETES SCREEN [facility] Start: 09-15-2024 End: 09-15-2024 Patient encounter procedure 09/15/2024 9:20 AM EST Office Visit [address] [place], [place] [id number] Sahra Guy MD [address] [place] [address] [place], [place] [id number] follow up [facility] Comment on above: follow up Start: 09-13-2024 End: 09-13-2024 Patient encounter procedure 09/13/2024 10:20 AM EST Office Visit Family Practice [address] [place], [place] [id number] Sahra Guy MD [address] [place] [address] [place], [place] [id number] follow up [facility] Comment on above: follow up Start: 08-23-2024 End: 11-22-2024 Comprehensive metabolic 2000 panel - Serum or Plasma COMPREHENSIVE METABOLIC PANEL Lab Routine Hyperglycemia Expected: 08/23/2024, Expires: 11/22/[address] [facility] Work Phone: Comment on above: Expected: 08/23/2024, Expires: Start: 08-23-2024 End: 11-22-2024 Hemoglobin A1c in Blood HEMOGLOBIN A1C Lab Routine Hyperglycemia Expected: 08/23/2024, Expires: 11/22/[address] [facility] Comment on above: Expected: 08/23/2024, Expires: Start: 08-23-2024 End: 11-22-2024 Lipid 1996 panel - Serum or Plasma LIPID PANEL BASIC Lab Routine Hyperlipidemia, mixed Expected: 08/23/2024, Expires: 11/22/[address] [facility] Comment on above: Expected: 08/23/2024, Expires: Start: 08-23-2024 End: 08-23-2024 Patient encounter procedure 08/23/2024 10:00 AM EST Office Visit Family Practice [address] [place], [place] [phone] Sahra Guy MD [address] [place] [address] [place], [place] [id number] Medicare Wellness [facility] Comment on above: Medicare Wellness Start: 08-03-2024 Advance Directive Discussion Advance Directive Discussion [facility] Start: 04-03-2024 Covid-19 Vaccine () Covid-19 Vaccine () [facility] Start: 04-03-2024 Covid-19 Vaccine () Covid-19 Vaccine () [facility] Start: 04-03-2024 Influenza vaccination [facility] Start: 02-23-2024 End: 05-24-2024 25-hydroxyvitamin D3 [Mass/volume] in Serum or Plasma VITAMIN D 25 HYDROXY Lab Routine Vitamin D deficiency Expected: 02/23/2024, Expires: 05/24/[address] [facility] Comment on above: Expected: 02/23/2024, Expires: Start: 02-23-2024 End: 05-24-2024 CBC panel - Blood by Automated count COMPLETE BLOOD COUNT Lab Routine Osteopenia, unspecified location Expected: 02/23/2024, Expires: 05/24/[address] [facility] Comment on above: Expected: 02/23/2024, Expires: Start: 02-23-2024 End: 05-24-2024 Comprehensive metabolic 2000 panel - Serum or Plasma COMPREHENSIVE METABOLIC PANEL Lab Routine Hyperglycemia Hyperlipidemia, mixed Expected: 02/23/2024, Expires: 05/24/[address] [facility] Comment on above: Expected: 02/23/2024, Expires: Start: 02-23-2024 End: 05-24-2024 Hemoglobin A1c in Blood HEMOGLOBIN A1C Lab Routine Hyperglycemia Expected: 02/23/2024, Expires: 05/24/[address] [facility] Work Phone: Comment on above: Expected: 02/23/2024, Expires: Start: 02-23-2024 End: 05-24-2024 Lipid 1996 panel - Serum or Plasma LIPID PANEL BASIC Lab Routine Hyperlipidemia, mixed Expected: 02/23/2024, Expires: 05/24/[address] [facility] Comment on above: Expected: 02/23/2024, Expires: Start: 10-04-2023 Covid-19 Vaccine () Covid-19 Vaccine () [facility] Start: 09-25-2023 Urine microalbumin profile [facility] Comment on above: Postponed from 03/11/2014 (Declined at t his time) Start: 08-30-2023 DIABETES SCREEN DIABETES SCREEN [facility] Start: 08-03-2023 Advance Directive Discussion Advance Directive Discussion [facility] Start: 08-03-2023 Behavioral Health Screening Behavioral Health Screening [facility] Start: 04-03-2023 Covid-19 Vaccine ( season) Covid-19 Vaccine () [facility] Start: 04-03-2023 End: 06-03-2023 Creatine kinase [Enzymatic activity/volume] in Serum or Plasma [facility] Work Phone: Comment on above: Expected: 04/03/2023, Expires: Start: 04-03-2023 Influenza vaccination [facility] Start: 09-29-2022 COVID-19 VACCINE (6 - Pfizer series) COVID-19 VACCINE (6 - Pfizer series) [facility] Start: 08-03-2022 ADVANCE DIRECTIVE DISCUSSION ADVANCE DIRECTIVE DISCUSSION [facility] Start: 08-03-2022 DEPRESSION ASSESSMENT DEPRESSION ASSESSMENT [facility] Start: 04-03-2022 Influenza vaccination INFLUENZA (#1) [facility] Start: 10-02-2021 COVID-19 VACCINE (4 - Booster for Pfizer series) COVID-19 VACCINE (4 - Booster for Pfizer series) [facility] Start: 08-03-2021 ADVANCE DIRECTIVE DISCUSSION ADVANCE DIRECTIVE DISCUSSION [facility] Start: 08-03-2021 DEPRESSION ASSESSMENT DEPRESSION ASSESSMENT [facility] Start: 03-11-2014 DTaP/Tdap/Td Vaccines (1 - Tdap) DTaP/Tdap/Td Vaccines (1 - Tdap) [facility] Start: 03-11-2014 Urine microalbumin profile [facility] Start: 2013 RSV Immunization for Adults (1 - 1-dose 75+ series) RSV Immunization for Adults (1 - 1-dose 75+ series) [facility] Start: 2013 RSV Vaccine (1 - 1-dose 75+ series) RSV Vaccine (1 - 1-dose 75+ series) [facility] Start: 1998 RSV Vaccine (1 - 1-dose 60+ series) RSV Vaccine (1 - 1-dose 60+ series) [facility] Start: 1950 Depression Screening Depression Screening [facility] Start: 1940 Medicare Annual Wellness (AWV) Medicare Annual Wellness (AWV) [facility] Start: 1940 Screening for osteoporosis Bone Density Scan [facility] Bacteria identified in Urine by Culture BACTERIAL CULTURE, URINE Microbiology Routine Burning with urination 02/07/2025 11:40 AM EDT [facility] Work Phone: CBC panel - Blood by Automated count CBC Lab Today History of iron deficiency anemia Ordered: 10/29/[address] [facility] Work Phone: Comment on above: Ordered: 10/29/2021 Comprehensive metabolic 2000 panel - Serum or Plasma COMP METABOLIC PANEL Lab Today Poliomyelitis osteopathy of multiple sites (HCC) Ordered: 10/29/[address] [facility] Work Phone: Comment on above: Ordered: 10/29/2021 IRON + TIBC IRON + TIBC Lab Today History of iron deficiency anemia Ordered: 10/29/[address] [facility] Work Phone: Comment on above: Ordered: 10/29/2021 LIPID PANEL BASIC LIPID PANEL BA SIC Lab Today Screening for lipid disorders Ordered: 10/29/[address] [facility] Work Phone: Comment on above: Ordered: 10/29/2021 OUTSIDE PROCEDURE SCAN OUTSIDE PROCEDURE SCAN Procedures Ordered: 09/09/2024 [facility] Comment on above: Ordered: 09/09/2024 Patient Education ED Constipatio n (Adult) ED Fecal Impaction, Treated [facility] Work Phone: End: 11-28-2022 XR KNEE LIMITED 2V AP/LAT RIGHT XR KNEE LIMITED 2V AP/LAT RIGHT Radiology Routine Acute pain of right knee 1 Occurrences starting 10/29/2021 until 11/28/[address] [facility] Work Phone: Comment on above: 1 Occurrences starting 10/29/2021 until 11/28/2022 End: 10-26-2025 XR Lumbar spine 3 Views XR LUMBAR GENERAL 3V AP/LAT/L5-S1 Radiology Routine Acute left-sided low back pain, unspecified whether sciatica present Left hip pain 1 Occurrences starting 09/26/2024 until 10/26/[address] [facility] Comment on above: 1 Occurrences starting 09/26/2024 until 10/26/2025 End: 10-26-2025 XR Pelvis and Hip - left AP and Lateral frog XR HIP GENERAL 3V PELV/AP/LAT LEFT Radiology Routine Left hip pain 1 Occurrences starting 09/26/2024 until 10/26/[address] [facility] Work Phone: Comment on above: 1 Occurrences starting 09/26/2024 until 10/26/2025 [facility] Immunizations Immunization Date Immunization Notes Care Provider [facility] 05-02-2024 influenza virus vacc ine, unspecified formulation Narciso Sherman PA-C Work Phone: [facility] 04-22-2023 influenza virus vacc ine, unspecified formulation Sahra Guy MD Work Phone: [facility] 04-08-2022 influenza, high-dose , quadrivalent vaccine (FLUZONE HIGH DOSE QUADRIVALENT) Sahra Guy MD Work Phone: [facility] 04-08-2022 influenza virus vacc ine, unspecified formulation Jeannette Melgar [facility] 05-03-2021 influenza, high-dose , quadrivalent vaccine (FLUZONE HIGH DOSE QUADRIVALENT) Sahra Guy MD Work Phone: [facility] 06-21-2020 zoster vaccine recombinant Sahra Guy MD Work Phone: [facility] 04-25-2020 influenza, high-dose , quadrivalent vaccine (FLUZONE HIGH DOSE QUADRIVALENT) Sahra Guy MD Work Phone: [facility] 04-19-2020 zoster vaccine recombinant Sahra Guy MD Work Phone: [facility] 05-17-2019 influenza, high dose seasonal, preservative-free Sahra Guy MD Work Phone: [facility] 05-20-2018 influenza, high dose seasonal, preservative-free Sahra Guy MD Work Phone: [facility] 05-20-2018 pneumococcal polysaccharide vaccine, 23 valent Sahra Guy MD Work Phone: [facility] 05-25-2017 influenza, high dose seasonal, preservative-free Sahra Guy MD Work Phone: [facility] 05-14-2017 influenza, injectabl e, quadrivalent, contains preservative Sahra Guy MD Work Phone: [facility] 05-24-2015 influenza, injectable,quadrivalent, preservative free, pediatric Sahra Guy MD Work Phone: [facility] 12-13-2014 pneumococcal conjuga te vaccine, 13 valent Sahra Guy MD Work Phone: [facility] 03-10-2014 TD(adult) unspecifie d formulation Sahra Guy MD Work Phone: [facility] 03-10-2014 tetanus and diphther ia toxoids, adsorbed, preservative free, for adult use (2 Lf of tetanus toxoid and 2 Lf of diphtheria toxoid) Chey Kumar MD [facility] 05-04-2012 influenza virus vacc ine, unspecified formulation Sahra Guy MD Work Phone: [facility] 05-27-2011 influenza virus vacc ine, unspecified formulation Sahra Guy MD Work Phone: [facility] Work Phone: 05-27-2011 zoster vaccine, live Sahra Guy MD Work Phone: [facility] Work Phone: 05-15-2010 influenza virus vacc ine, unspecified formulation Sahra Guy MD Work Phone: [facility] 04-30-2009 influenza virus vacc ine, unspecified formulation Sahra Gyu MD Work Phone: [facility] Work Phone: 05-10-2008 influenza virus vacc ine, unspecified formulation Sahra Guy MD Work Phone: [facility] Work Phone: 06-08-2007 influenza virus vacc ine, whole virus Sahra Guy MD Work Phone: [facility] 06-03-2006 influenza virus vacc ine, unspecified formulation Sahra Guy MD Work Phone: [facility] Work Phone: 07-30-2005 tetanus and diphther ia toxoids, adsorbed, preservative free, for adult use (2 Lf of tetanus toxoid and 2 Lf of diphtheria toxoid) Sahra Guy MD Work Phone: [facility] Work Phone: 07-31-2002 pneumococcal polysaccharide vaccine, 23 valent Sahra Guy MD Work Phone: [facility] Work Phone: Payers Date Payer Category Payer Self-pay 2024 Commercial Managed C are - PPO [employer] PPO [id number] 2024 Medicare (Managed Care) [employer] [place] [id number] 2024 Private Health Insurance [id number] 2023 Commercial Managed C are - O [facility] [id number] 2012 Private Health Insurance 2012 Private Health Insurance [facility] INDEMNITY GENERIC [id number] 2012-Present [phone] [address] [address] [place] [address] Indemnity [id number] 2011 Private Health Insurance [id number] 2001 Medicare 2001 Medicare MEDICARE MEDICAR E A AND B [id number] 2001-Present [phone] [place] [address] Medicare [id number] 2001 Medicare [id number] 1938 Unknown [id number] 2.16.840.1.803182.3.579.2. 1938 Unknown [id number] 2.16.840.1.773126.3.579.2. 1938 Unknown [id number] 2.16.840.1.469952.3.579.2. 668 1938 Unknown [id number] 2.16.840.1.971537.3.579.2. 278 Medicare [id number] Unknown [id number] 2.16.840.1.315964.3.579.2. 462 Unknown [id number] 2.16.840.1.482010.3.579.2. 462 Unknown [id number] 2.16.840.1.724522.3.579.2. 462 Unknown [id number] 2..840.1.351910.3.579.2. 462 Unknown [id number] 2.840.1.465317.3.579.2. 462 Unknown [id number] 2..840.1.005999.3.579.2. 462 Unknown [id number] 2.840.1.803469.3.579.2. 462 Unknown [id number] 2.840.1.504834.3.579.2. 462 Unknown [id number] 2.840.1.085727.3.579.2. 462 Unknown [id number] 2..840.1.305223.3.579.2. 462 Unknown [id number] 2.840.1.843494.3.579.2. 462 Unknown [id number] 2.840.1.218997.3.579.2. 462 Unknown [id number] 2.16.840.1.890829.3.579.2. 462 Unknown [id number] 2..840.1.632290.3.579.2. 462 Unknown [id number] 2.840.1.052211.3.579.2. 462 Unknown [id number] 2..840.1.007912.3.579.2. 462 Unknown [id number] 2.840.1.206282.3.579.2. 462 Unknown [id number] 2.16.840.1.257459.3.579.2. 462 Unknown [id number] 2.16.840.1.868427.3.579.2. 462 Unknown [id number] 2.16.840.1.329816.3.579.2. 462 Unknown [id number] 2.16.840.1.560674.3.579.2. 462 Unknown [id number] 2.16.840.1.180787.3.579.2. 462 Unknown [id number] 2.16.840.1.805806.3.579.2. 462 Unknown [id number] 2.16.840.1.193622.3.579.2. 462 Unknown [id number] 2.16840.1.035563.3.579.2. 462 Unknown [id number] 2.840.1.809242.3.579.2. 462 Unknown [id number] 2.16840.1.906562.3.579.2. 462 Unknown [id number] 2.16840.1.398312.3.579.2. 462 Unknown [id number] 2.16.840.1.497483.3.579.2. 462 Unknown [id number] 2.840.1.223443.3.579.2. 462 Unknown [id number] 2.16840.1.201415.3.579.2. 462 Unknown [id number] 2.16840.1.570065.3.579.2. 462 Unknown [id number] 2.16840.1.564368.3.579.2. 462 Unknown [id number] 2.16840.1.497296.3.579.2. 462 Social History Date Type Detail Facility Start: 02-20-2016 End: 04-08-2022 Tobacco smoking status ARIS Never smoked tobacco [facility] Work Phone: Start: 02-20-2016 End: 04-08-2022 Tobacco use and exposure Smokeless tobacco non-user [facility] Work Phone: Start: 10-29-2021 End: 02-07-2025 Alcohol intake Current drinker of alcohol (finding) [facility] Start: 02-15-2025 History SDOH Alcohol Comment Rare [facility] Start: 02-20-2016 End: 04-08-2022 Tobacco Comment second hand smoke exposure. [facility] Start: 1940 Sex Assigned At Not on file C [facility] Start: 10-19-2021 End: 04-08-2022 Exposure to SARS-CoV-2 (event) Not sure [facility] History of tobacco use Passive smoker [facility] Work Phone: Start: 06-01-2022 End: 06-11-2022 Exposure to SARS-CoV-2 (event) Yes [facility] Start: 03-10-2023 End: 01-31-2025 History of Social function [facility] Work Phone: Start: 03-10-2023 End: 01-31-2025 Tobacco use panel [facility] Work Phone: Start: 07-04-2012 Adult Depression Screening Assessment [address] [facility] Work Phone: Start: 06-14-2014 End: 03-25-2025 Tobacco smoking status ARIS Tobacco smoking consumption unknown [facility] Start: 03-03-2022 Sex Female (finding) [facility] Has the [employer], [employer], [employer], or water company threatened to shut off services in your home in past 12Mo No [facility] (I/We) worried eliot er (my/our) food would run out before (I/we) got money to buy more. Never true [facility] Start: 02-15-2025 Drugs Drugs [facility] Start: 02-15-2025 Lives Lives [facility] Start: 02-15-2025 Tobacco Use Tobacco Use [facility] Start: 1940 Sex Assigned At Female W [facility] Functional Status Date Assessment Result Facility 12-19-2024 Are you deaf, or do you have serious difficulty hearing No 12/19/2024 3:09 PM Theresa Gonzales RN No [facility] 12-19-2024 Are you blind, or do you have serious difficulty seeing, even when wearing glasses No 12/19/2024 3:09 PM Theresa Gonzales, HILDA No [facility] 12-19-2024 Do you have serious difficulty walking or climbing stairs Yes 12/19/2024 3:09 PM Theresa Gonzales, HILDA Yes [facility] 12-19-2024 Do you have difficul ty dressing or bathing Yes 12/19/2024 3:09 PM Theresa Gonzales, HILDA Yes [facility] 12-19-2024 Because of a physica l, mental, or emotional condition, do you have difficulty doing errands alone such as visiting a physician's office or shopping Yes 12/19/2024 3:09 PM Theresa Gonzales, HILDA Yes [facility] 07-30-2018 Are you deaf, or do you have serious difficulty hearing No 07/30/2018 5:50 PM Miranda Castro, HILDA No [facility] 07-30-2018 Are you blind, or do you have serious difficulty seeing, even when wearing glasses No 07/30/2018 5:50 PM Miranda Castro, HILDA No [facility] 07-30-2018 Do you have serious difficulty walking or climbing stairs Yes 07/30/2018 5:50 PM Miranda Castro, HILDA Yes [facility] 07-30-2018 Do you have difficul ty dressing or bathing No 07/30/2018 5:50 PM Miranda Castro, HILDA No [facility] 07-30-2018 Because of a physica l, mental, or emotional condition, do you have difficulty doing errands alone such as visiting a physician's office or shopping No 07/30/2018 5:50 PM Miranda Castro, HILDA No [facility] Mental Status Date Assessment Result Facility 12-19-2024 Because of a physica l, mental, or emotional condition, do you have serious difficulty concentrating, remembering, or making decisions Yes 12/19/2024 3:09 PM EDT Theresa Gonzales, HILDA Yes [facility] 07-30-2018 Because of a physica l, mental, or emotional condition, do you have serious difficulty concentrating, remembering, or making decisions No 07/30/2018 5:50 PM Miranda Castro, HILDA No 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 Chey Kumar MD Status:R EG ER Location: ED HPI HPI - GI History of Present Illness Chief Complaint: Constipation Narrative Narrative: 84-year-old female presents from [facility] with constipation for the last week or [...] bowel movement butis unable to do so. [facility] Medical History History of fractured vertebra [...] fecal impaction in the rectum [facility] Discharge Plan Triage Chief Complaint: [...] a day. Continue your senna. Print Language: Vietnamese Disposition Disposition: Home, Self Care What to do if you have Problems For any increased pain, shortness of breath, bleeding, nausea or vomiting, chestpain, or any unexpected problems, contact your Primary Care Provider. Call [facility] ([phone]) or report tothe closest Emergency Room. Call 911 if necessary. 03/25/25 190 Cosigner Signature (if applicable): CC: Dr. Chey Kumar MD ~ Signed [facility]08-23-2025 Radiology Diagnostic study note [facility] Imaging Services [address] [place], [place] [id number] Abd Decub and/or Erect(Portabl MR#: [id number] Acct: [id number] Name: TENA CANNON Rep #: [id number] : 1940 F 84 From: Pet er Peer DO PCP: Dr. Chey Kumar MD Status: P RE ER Study:Abd Decub and/or Erect(Portabl Date of Exam: 03/25/25 Exam# [id number] Ordering Dr: Vicente Leon MD PROCEDURE: ABD DECUB AND/OR ERECT(PORTABLE 03/25/2025 REASON FOR EXAM: CONSTIPATION TECHNIQUE: ABD DECUB AND/OR ERECT(PORTABLE COMPARISON: December 08, 2024 CT FINDINGS: Bowel gas: Nonobstructing nonspecific bowel-gas pattern. [id number] fecalload consistent withconstipation. Calcifications: No suspicious calcifications. Bones: Degenerative changes of the lumbar spine. Kyphoplasties cement in L3. Other: Cholecystectomy clips in the gallbladder fossa. Pronounced left convexity scoliosis of the thoracolumbar spine RAD/Abd Decub and/or Erect(Portabl IMPRESSION: Possible fecal impaction in the rectum Reading [facility] CC: Dr. Vicente Leon MD; Dr. Chey Kumar MD ~ Operator Helper: Signed [facility]08-23-2025 Discharge summary Author Vicente Leon [facility] Note Date/Time March 25, 2025 7: 03pm [facility] Medical Records Department [address] [place] [address] Emergency Department Summary 03/25/25 MR#: [id number] Acct: [id number] Name: TENA CANNON Rep #:[id number] : 1940 84 From: Vicente Leon MD PCP: Dr. Chey Kumar MD Status:R EG ER Location: ED HPI HPI - GI History of Present Illness Chief Complaint: Constipation Narrative Narrative: 84-year-old female presents from [facility] with constipation for the last week or [...] bowel movement butis unable to do so. [facility] Medical History History of fractured vertebra [...] fecal impaction in the rectum Reading [facility] Discharge Plan Triage Chief Complaint: [...] a day. Continue your senna. Print Language: Vietnamese Disposition Disposition: Home, Self Care What to do if you have Problems For any increased pain, shortness of breath, bleeding, nausea or vomiting, chestpain, or any unexpected problems, contact your Primary Care Provider. Call [facility] ([phone]) or report to the closest Emergency Room. Call 911 if necessary. 03/25/251902 <Electronically signed by Vicente Leon MD> Cosigner Signature (if applicable): CC: Dr. Chey Kumar MD ~ Signed [facility] Work Phone: 1(944) 344-754308-20-2025 Telephone encounter Note* Telephone Encounter - Norma Long - 03/22/2025 4:24 PM EDT Tena has her daughter calling for information to request medical records request for insurance company. Fax and phone number was provided Patient has been identified by name and birthdate. Person calling: daughter: Juan Call patient at: on cell [phone] (home) [phone] (cell) Was an appointment scheduled: No Closing statement: Results or non-symptom based questions: Thank you for calling [facility], your call will be returned within the next business day. Norma Monroe [facility]08-20-2025 Miscellaneous Notes* Telephone Encounter - Norma Long - 03/22/2025 4:24 PM EDT Tena has her daughter calling for information to request medical records request for insurance company. Fax and phone number was provided Patient has been identified by name and birthdate. Person calling: daughter: Juan Call patient at: on cell [phone] (home) [phone] (cell) Was an appointment scheduled: No Closing statement: Results or non-symptom based questions: Thank you for calling [facility], your call will be returned within the next business day. Norma Monroe documented [facility] Telephone encounter Note * Telephone Encounter - Yandy Cruz LPN - 02/14/2025 9:44 AM EDT Called [facility], patient on [facility]. Spoke with LOBO Soto. Reports patient had been transferred hall. LOBO Soto informed of orders and she will update facility provider. Yandy Cruz LPN [facility]07-15-2025 Miscellaneous Notes* Telephone Encounter - Yandy Cruz LPN - 02/14/2025 9:44 AM EDT Called [facility], patient on [address] [place]. Spoke with LOBO Soto. Reports patient had been transferred hall. LOBO Soto informed of orders and she will update facility provider. Yadny Cruz LPN * Telephone Encounter - Yandy Cruz LPN - 02/10/2025 9:36 AM EDT Faxed order and results to [facility]. Yandy Cruz LPN * Telephone Encounter - Yandy Cruz LPN - 02/10/2025 9:34 AM EDT Images from the original note were not included. Order Audit [place]: sulfamethoxazole-trimethoprim (BACTRIM DS) 800-160 mg per tablet [[id number]] Original entry by Marilyn Santos PA-C 02/09/2025 [...] start bactrim. Thanks Son [facility] Telephone encounter Note * Telephone Encounter - Yandy Cruz LPN - 02/10/2025 9:36 AM EDT Faxed order and results to [facility]. Yandy Cruz LPN [facility]07-11-2025 Telephone encounter Note* Telephone Encounter - Yandy Cruz LPN - 02/10/2025 9:34 AM EDT Images from the original note were not included. Order Audit [place]: sulfamethoxazole-trimethoprim (BACTRIM DS) 800-160 mg per tablet [[id number]] Original entry by Marilyn Santos PA-C 02/09/2025 [...] Diagnoses: -- Pharmacy Associated Diagnoses: -- Dates [facility]07-11-2025 Telephone encounter Note* Telephone Encounter - Yandy Cruz LPN - 02/10/2025 9:26 AM EDT Called patient. No answer- left message to call clinic for message. Yandy Cruz LPN [facility]07-11-2025 Telephone encounter Note* Telephone Encounter - Yandy Cruz LPN - 02/10/2025 9:24 AM EDT ----- Message from Marilyn Santos PA-C sent at 02/09/2025 11:51 AM EDT ----- Regarding: urine culture is positive Please tell her the urine culture is positive and to start bactrim. Thanks Son [facility]07-09-2025 Telephone encounter Note* Telephone Encounter - Yandy Cruz LPN - 02/08/2025 8:36 AM EDT Faxed urology office notes to facility. Yandy Cruz LPN [facility]07-09-2025 Miscellaneous Notes* Telephone Encounter - Yandy Cruz LPN - 02/08/2025 8:36 AM EDT Faxed urology office notes to facility. Yandy Cruz LPN * Telephone Encounter - Yandy Cruz LPN - 02/08/2025 8:34 AM EDT Called [employer] to obtain fax number. Spoke with LOBO Burk on [facility] [place] (Transition of Care). Fax number is . Yandy Cruz LPN documented in this encounter[facility] Telephone encounter Note * Telephone Encounter - Yandy Cruz LPN - 02/08/2025 8:34 AM EDT Called [employer] to obtain fax number. Spoke with LOBO Burk on [facility] [place] (Transition of Care). Fax number is . Yandy Cruz LPN [facility]07-08-2025 NoteHNO ID: [id number] Author: NARCISO SHERMAN PA-C Service: ? 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 lidocaine (ASPERFLEX, LIDOCAINE,) 4 % patch Apply 1 application as directed once daily. Apply to lower back, on for twelve hours, off for twelve hours. tpayhjji-yhjb-xjl8-C-lety-bosw (OSTEO BI-FLEX TRIPLE STRENGTH) 750 mg-644 mg- [...] Use 1 Drop i (more content not included)...[facility]07-08-2025 History of Present illness Narrative* Narciso Sherman PA-C - 02/07/2025 10:59 AM EDT Images from the original note were not included. [facility] PATIENT CLINIC NOTE (F) Note was generated by [employer] and edited as appropriate SERVICE DATE: [...] 0.96 mg/dL Final MEDICATIONS: dextran 70-hypromellose (ARTIFICIAL TEARS,DPJM40-HXYGC,) 0.1-0.3 % ophthalmic solution Use 1 drop in both eyes two times a day. lidocaine (ASPERFLEX, LIDOCAINE,) 4 % patch Apply 1 application as directed once daily. Apply to lower back, on for twelve hours, off for twelve hours. cnbvlckm-tpig-wfd6-C-lety-bosw (OSTEO BI-FLEX TRIPLE STRENGTH) 750 mg-644 mg- [...] alcohol (LIQUID TEARS OPHTHALMIC) Use in eyes. rutin/hesp/bioflav/C/lwvrxo616 (BIOFLEX ORAL) Take 1 capsule by mouth [...] - Recent hospitalization on December 15 at [facility] due to a fall resulting in a [...] only if you experience problems. MONICA Concepcion, NJGENE documented in this encounterMer[facility]25 NoteHNO ID: [id number] Author: LIONEL JOINER MA Service: ? Author Type: Partnership Marketing Manager Type: Progress Notes Filed: 01/09/2025 08:50 Note [...] Lionel Joiner MA January 09, 2025 7:10 [facility]06-09-2025 History of Present illness Narrative* [...] 09, 2025 7:10 AM documented in this encounterMer[facility]2025 NotePatient Outreach (NETNAV) TENA CANNON ([id number]) 1940 F Date Time Provider Department 01/09/25 LIONEL JOINER NETNAV During your visit today, we recorded the [...] Visit: Population Health Navigation Outreach [3910] [facility] [place] [facility] Prescriptions as of 01/09/2025 - lactulose [...] (LIQUID TEARS OPHTHALMIC) Use in eyes. - rutin/hesp/bioflav/C/ijbfri598 (BIOFLEX ORAL) Take 1 capsule by mouth [...] poliomyelitis [B91] 05/12/2005 [place] (more content not included)...[facility]05-19-2025 Note HNO ID: [id number] Author: RACHEL RODRIGEZ RN Service: Care Management Author Type: Registered Nurse Type: Care Mgt Progress Note Filed: 12/19/2024 13:56 Note Text: CARE MANAGEMENT DISCHARGE NOTE SERVICE DATE: December 19, 2024 SERVICE TIME: 1:47 PM Discharge Order written for today. Discharge: [facility] SNF: [facility] - - Facility confirms they have insurance auth and can accept patient. RN DEMETRIUS informed Katiuska James from the [facility]. SNF updated on discharge today and transport time per [facility] Transitions. MMT Transport Scheduled for today at 3:00PM - Trip Number [id number] Transport envelope on chart. HILDA ROMO updated patient at bedside and daughter Joanne by phone on discharge plan and transport time. Nurse: Theresa Vargas RN updated on discharge plan for today. Admission Date: 12/12/2024 LOS: 3 days Discharge Arrangement Discharge Arrangement: Penitentiary Facility Provider Name: SNF: [facility] - Transportation Arrangements Transportation Arrangements: Ambulance Transportation Agency and Phone #:: [facility] [phone] Date of Trip: 12/19/24 (Trip Number [id number]) Time of Trip: 1500 Type of Service: BLS Non-emergency Is Patient Medicaid Pending?: No Was transportation financial coverage discussed with family?: Patient, Family (Daughter: Joanne Bazzi - ) Cnmt Location: [place] Destination: SNF: [facility] - Financial Care Management Responsibility: None Handoff Communication: Handoff to: Other Caregiver, Primary Care Physician Primary Care Physician Name/Phone: PCP: Sahra Guy MD - Other Caregiver Name/Phone: SNF: [facility] - Additional Information: Discharge Information Row Name ED to Hosp-Admission (Current) from 12/12/[address] [facility] Follow-Up Appointment Provider Name PCP: Jaime Guy MD - Penitentiary Facility Agency SNF: [facility] - SIGNATURE: Rachel Rodrigez RN PATIENT NAME: Tena Cannon DATE: December 19, 2024 TIME: 1:47 PMCincinnati Children'S Hospital Medical CenterQsmoljog69-69-4942 NoteHNO ID: [id number] Author: RACHEL RODRIGEZ RN Service: Care Management Author Type: Registered Nurse Type: Care Mgt Progress Note Filed: 12/19/2024 13:38 Note Text: CARE MANAGEMENT PROGRESS NOTE SERVICE DATE: 12/19/2024 SERVICE TIME: 11:41 AM LOS: 3 days Discharge Plan: [facility]: They note they have insurance authorization to accept. [facility] completed HENS/[place] 7000 for [facility] - Document ID : [id number]. Dr Lopez updated CM: he spoke with patient and daughter and is planning to discharge patient today. RN DEMETRIUS met with patient at bedside to discuss discharge plan for today. Patient confirms she is agreeable with discharge to SNF: [facility] in [place] by medical transport. Patient informed that medical transport time scheduled for today at 3:00 PM. RN DEMETRIUS called and updated patients daughter Juan on discharge plan and transport time for today. Juan confirms she is agreeable with discharge plan. SNF [facility] on Discharge today and Transport Time. Transport envelope on chart. SIGNATURE: Rachel Rodrigez RN PATIENT NAME: Tena Cannon DATE: December 19, 2024 TIME: 11:41 AMCincinnati Children'S Hospital Medical CenterLxaekjdo64-41-8439 NoteHNO ID: [id number] Author: MORIAH LOPEZ MD Service: Hospital Medicine [...] at 6 pm that he spoke with [facility] neurosurgeon emr implementation specialist who said that patient isn't a surgical [...] Noted Thoracic compression fracture, closed, initial encounter ([facility]) 12/16/2024 Obesity, Class I, BMI 30-34.9 12/12/2024 Low back pain 12/12/2024 Generalized weakness 07/29/2018 Obstructive sleep apnea on CPAP 07/14/2017 Overview Note: DME--[employer]--PH # [phone]---FX # [phone]. 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 HospitalRmtasfmi52-52-9692 NoteHNO ID: [id number] Author: ILSA RODAS RN Service: Care Management Author Type: Registered Nurse Type: Care Mgt Progress Note Filed: 12/18/2024 09:56 Note Text: Attestation signed by Moriah Lopez MD at 12/18/2024 9:58 AM agreed CARE MANAGEMENT PROGRESS NOTE SERVICE DATE: 12/18/2024 SERVICE TIME: 9:55 AM LOS: 2 days [facility] can Accept. Will Begin Precert. Physician Certification [...] Attending Physician: Moriah Lopez MD SIGNATURE: Ilsa Rodas, RN,BSN, ACM PATIENT NAME: Tena Cannon DATE: December 18, 2024 TIME: 9:54 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 Exam: BP (!) 114/48 Pulse 74 Temp [...] at 6 pm that he spoke with [facility] neurosurgeon emr implementation specialist who said that patient isn't a surgical candidate based on her age and chronic functional status and high risk for surgical complications and non-healing. Will focus on pain meds and transition to SNF with brace. Constipation - continue miralax/senna docusate. Add mag citrate today. Trying to avoid ND meds given back pain. Urine retention - stop sanctura and add flomax. Continue [place] and do void trial at SNF after ~ 7 days of flomax. F/u with urology on DC. Tylenol, solumedrol, oxycodone, lido patch, kpad for compression fracture. F/u with spine surg. Med rdy for SNF. Active Hospital Problems Diagnosis Date Noted Thoracic compression fracture, closed, initial encounter ([facility]) 12/16/2024 Obesity, Class I, BMI 30-34.9 12/12/2024 Low back pain 12/12/2024 Generalized weakness 07/29/2018 Obstructive sleep apnea on CPAP 07/14/2017 Overview Note: DME--[employer]--PH # [phone]---FX # [phone]. 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 HospitalIdftrbbp95-48-1374 NoteHNO ID: [id number] Author: NOTE, INTERFACE, ? Service: ? Author Type: ? Type: Progress Notes Filed: 12/18/2024 02:53 Note Text: Epic Scheduled Downtime: 12/18/2024 1:00:00 AM to 12/18/2024 2:37:00 AMCincinnati Children'S Hospital Medical CenterHrnsuqqh30-75-5560 NoteHNO ID: [id number] Author: MORIAH LOPEZ MD Service: Hospital Medicine [...] at 6 pm that he spoke with [facility] neurosurgeon emr implementation specialist who said that patient isn't a surgical [...] Noted Thoracic compression fracture, closed, initial encounter ([facility]) 12/16/2024 Obesity, Class I, BMI 30-34.9 12/12/2024 Low back pain 12/12/2024 Generalized weakness 07/29/2018 Obstructive sleep apnea on CPAP 07/14/2017 Overview Note: [employer]--PH # [phone]---FX # [phone]. 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 HospitalPdhshjlb23-75-5988 NoteHNO ID: [id number] Author: NOTE, INTERFACE, ? Service: ? Author Type: ? Type: Progress Notes Filed: 12/17/2024 03:45 Note Text: Epic Scheduled Downtime: 12/17/2024 1:00:00 AM to 12/17/2024 3:39:00 [facility] HospitalVwqvlmty49-15-3859 NoteHNO ID: [id number] Author: RACHEL RODRIGEZ RN Service: Care Management Author Type: Registered Nurse Type: Care Mgt Progress Note Filed: 12/16/2024 14:42 Note Text: CARE MANAGEMENT PROGRESS NOTE SERVICE DATE: 12/16/2024 SERVICE TIME: 2:28 PM LOS: 0 days 12/16/24 PT recommended SNF and 12/16/24 OT recommended SNF. SNF Choice: [facility]: Pending. Referral updated in [facility] and Voice Message left to inform Kamini in Admissions [phone]. Discharge Plan: Penitentiary Facility - Pending Acceptance and Insurance Authorization/Precert. [...] Cannon DATE: December 16, 2024 TIME: 2:28 PMCincinnati Children'S Hospital Medical CenterLnuuinop27-50-6716 NoteHNO ID: [id number] Author: GEORGINA RICHARDSON MD Service: Hospital Medicine Author Type: Physician Type: Progress Notes Filed: 12/16/2024 14:30 Note Text: DEPARTMENT OF HOSPITAL MEDICINE PROGRESS NOTE SERVICE DATE: 12/16/2024 SERVICE TIME: 2:23 PM Hospital Medicine/Primary Attending: Georgina Richardson MD NIGHT AND WEEKEND COVERAGE: [place] COVERAGE: Days: [phone], please page attending physician. Nights: [phone], please page [facility] Hospitalist Night coverage pager [phone]. Subjective INTERVAL HPI: Patient is still having [...] 22 Gauge 2 days Peripheral 12/14/24 1257 [facility] Short Right Forearm 22 Gauge 2 [...] 30-34.9 Thoracic compression fracture, closed, initial encounter ([facility]) HOSPITAL COURSE: Tena Cannon is a 84 year old female presented with past medical his (more content not included)...[facility] CenterPbwguwuo21-85-9323 NoteHNO ID: [id number] Author: GEORGINA RICHARDSON MD Service: Care Management [...] 30-34.9 Thoracic compression fracture, closed, initial encounter ([facility]) Resolved Problems: Sleep apnea Attending Physician: Georgina Richardson, [facility] HospitalQthcraui23-40-6459 NoteHNO ID: [id number] Author: GEORGINA RICHARDSON MD Service: Hospital Medicine Author Type: Physician Type: Progress Notes Filed: 12/15/2024 11:49 Note Text: DEPARTMENT OF HOSPITAL MEDICINE PROGRESS NOTE SERVICE DATE: 12/15/2024 SERVICE TIME: 11:47 AM Hospital Medicine/Primary Attending: Georgina Richardson MD NIGHT AND WEEKEND COVERAGE: [employer] COVERAGE: Days: [phone], please page attending physician. Nights: [phone], please page [facility] Hospital[facility] Night coverage pager [phone]. Subjective INTERVAL HPI: Patient is still having [...] 12/13/24 2049 Short Left Forearm 22 Gauge 1 day Peripheral 12/14/24 1257 [facility] Short Right Forearm 22 Gauge <1 [...] apnea on CPAP Generaliz (more content not included)...[facility] CenterYodjrohq38-75-5113 NoteHNO ID: [id number] Author: RACHEL RODRIGEZ, RN Service: Care Management [...] evaluation and recommendation: Pending Anticipated Discharge Plan: Penitentiary Facility Only SNF Choice Provided: [facility]: Pending Review of Therapy Evaluations and Insurance Authorization/Precert. Discharge Transportation: Medical Transport - COT Transport envelope on chart. Needs Prior to Discharge: To Be Determined, OT/PT Evaluation, Accepting Facility, Insurance Authorization, Precertification, Discharge Transportation, Equipment Delivery (Back Brace) CM Dept to Follow. SIGNATURE: Rachel Rodrigez RN PATIENT NAME: Tena Cannon DATE: December 15, 2024 TIME: 8:53 [facility] HospitalPrzgrqob89-98-3183 NoteHNO ID: [id number] Author: GEORGINA RICHARDSON MD Service: Hospital Medicine Author Type: Physician Type: Progress Notes Filed: 12/14/2024 15:17 Note Text: [facility] MEDICINE PROGRESS NOTE SERVICE DATE: 12/14/2024 SERVICE TIME: 3:15 PM Hospital Medicine/Primary Attending: Georgina Richardson MD NIGHT AND WEEKEND COVERAGE: [employer] COVERAGE: Days: [phone], please page attending physician. Nights: [phone], please page [facility] Hospital[facility] Night coverage pager [phone]. Subjective INTERVAL HPI: Patient is confused and [...] 22 Gauge <1 day Peripheral 12/14/24 1257 [facility] Short Right Forearm 22 Gauge <1 [...] not displayed. Recent Labs 12/13/2452412/12/24 1257 12/10/242 12/09/2482412/08/24 1630 GLUC 101* 126* 95 121* 84 [...] Adjustment disorder with depress (more content not included)...[facility] 12-14-2024 NoteHNO ID: [id number] Author: CORRINE PETERSEN RN Service: Care Management [...] to discharged to SNF, referral out to [facility]. Per patient please share all medical information with her daughter Juan. CM will continue to follow. SIGNATURE: Corrine Petersen RN PATIENT NAME: Tena Cannon DATE: December 14, 2024 TIME: 2:22 PMCincinnati Children'S Hospital Medical CenterNycacpek24-79-6881 NoteHNO ID: [id number] Author: GEORGINA RICHARDSON MD Service: Hospital Medicine Author Type: Physician Type: Progress Notes Filed: 12/13/2024 12:50 Note Text: DEPARTMENT OF HOSPITAL MEDICINE PROGRESS NOTE SERVICE DATE: 12/13/2024 SERVICE TIME: 12:40 PM Hospital Medicine/Primary Attending: Georgina Richardson MD NIGHT AND WEEKEND COVERAGE: [employer] COVERAGE: Days: [phone], please page attending physician. Nights: [phone], please page [facility]ist Night coverage pager [phone]. Subjective INTERVAL HPI: Patient is little bit [...] Airways Line Name Duration Peripheral 12/12/24 1229 [facility] Short Right Forearm 20 Gauge 1 [...] 84 year o (more content not included)... [facility] CenterOpxlyhpf79-69-8097 NoteHNO ID: [id number] Author: RACHEL RODRIGEZ RN Service: Care Management Author Type: Registered Nurse Type: Care Mgt Initial Assessment Filed: 12/13/2024 10:55 Note Text: CARE MANAGEMENT: ASSESSMENT AND DISCHARGE PLAN SERVICE DATE: December 13, 2024 SERVICE TIME: 10:20 AM artificial flower maker spoke with patient at bedside to complete Care Management Assessment. Introduction made and role of Care Management explained. PCP: Sahra Guy MD - Patient confirmed Primary Contact: Primary Emergency Contact: WilliamskokoJuan [place] Relation: Daughter Admission Status: Observation Insurance Provider: [employer] MEDICARE PPO Discharge Planning requested by: Per Department Practice Potential Transition Plans (Penitentiary Facility) Advance Directives Current Advance Directive: Living Will In Chart: Yes Current Living Arrangements and Support Lives with: Alone (Assisted Living Facility: [facility]) Type of Residence: Assisted Living Facility Care Facility Name: Assisted Living Facility: [facility] Support: Family members How do you [...] she usually transfers herself with standby assist. [place] of Choice Explained: [place] of Choice Given: Yes (Patient confirms she is agreeable to a SNF referral to [facility] in [place].) Level of Care Discussed: Penitentiary Facility Are you interested in bedside delivery of your medications? Service Not Available Discharge Pharmacy Preference: [facility] in [place] Discharge Planning Participant(s): Patient Transport at Discharge: Transportation Arrangements: Ambulance Transportation Agency and Phone #:: [facility] [phone] Type of Service: BLS Non-emergency Is Patient Medicaid Pending?: No Was transportation financial coverage discussed with family?: Patient (Patient has been informed that she is responsible for all out of pocket costs for medical transportation at discharge.) Cnmt Location: [facility] Financial Care Management Responsibility: None Needs Prior to Discharge: Needs Prior to Discharge: To Be Determined, OT/PT Evaluation, Accepting Facility, Insurance Authorization, Precertification, Discharge Transportation Post-Acute Discharge Plan: From Assisted Living Facility: [facility]. Patient reports she uses manual wheelchair or electric wheelchair for mobility. Patient reports she is able to transfer herself with one standby assist at baseline. Patient reports she manages her own medications and her meals are provided by the assisted living facility. Patient is agreeable to SNF: [facility] and states her daughter has talked with [...] Cannon DATE: December 13, 2024 TIME: 10:20 [facility] HospitalBrapefei03-04-4999 NoteHNO ID: [id number] Author: CORRINE PETERSEN RN Service: Care Management [...] stairs at home?: No Care Facility Name: [facility] I Support: Children, Family members How do you manage to accomplish the following: Independent: Bathe/Shower, Dress, Going to the bathroom, Medication Management Needs Assistance: Ambulation, Meals/Meal Prep Dependent: Transportation to appointments/community Current Services/Equipment Current Post-Acute Service(s): DME Current DME Type: Shower seat, Wheelchair-electric, Rollator Scooter Discharge Planning Patient Goal(s): General wellness, Be able to go home [place] of [place] Explained: [place] of Choice Given: No Reason Not Given: [...] Arrangements: Ambulance Transportation Agency and Phone #:: [facility] [phone] Needs Prior to Discharge: Needs Prior to Discharge: Other: See Comment (Pain control, medical clearance) Post-Acute Discharge Plan: Return to Assisted Living Met with patient at bedside, introduced self/role of TCC. Patient presented to [facility] ED c/o lower back/flank plan. Patient admitted to Observation for further evaluation and treatment. Patient lives at [place] at [facility]. She reports being independent with [...] Cannon DATE: December 09, 2024 TIME: 4:02 PMCincinnati Children'S Hospital Medical CenterIfaylhxv39-47-3391 Telephone encounter Note* Telephone Encounter - [place] Tete Boucher - 12/09/2024 2:29 PM EDT don Martinez called and stated lidocaine patches are denied and the insurance has faxed an appeal form to our office. She is requesting this is completed. Please call JAZIO [phone] at 8-5pm central time. Please follow up with the daughter. [facility]05-09-2025 Miscellaneous Notes* Telephone Encounter - [place] Tete Boucher - 12/09/2024 2:29 PM EDT don Martinez called and stated lidocaine patches are denied and the insurance has faxed an appeal form to our office. She is requesting this is completed. Please call JAZIO [phone] at 8-5pm central time. Please follow up with the daughter. * Telephone Encounter - Adonay Marquez LPN - 12/08/2024 1:33 PM EDT PA submitted. Response pending. * [facility] - [facility] - 12/08/2024 10:19 AM EDT Patient daughterJuan is calling Sahra Guy MD today to request a prior authorization forthe lidocaine 5% per pharmacy [facility] in [place] on [address] Please call daughter with updates on this PA Patient has been identified by name and birthdate. Person calling: daughter: Juan Call patient daughter Juan [phone] (home) [phone] (cell) Was an appointment scheduled: No Closing statement: Prior Auth [facility] documented in this encounterMer[facility]05[facility]25 NoteHNO ID: [id number] Author: ZAYNAB VALENCIA DO Service: Hospital Medicine Author Type: Physician Type: Progress Notes Filed: 12/10/2024 02:15 Note Text: DEPARTMENT OF HOSPITAL MEDICINE PROGRESS NOTE SERVICE DATE: 12/09/2024 SERVICE TIME: 2:14 PM Hospital Medicine/Primary Attending: Zaynab Valencia DO NIGHT AND WEEKEND COVERAGE: [facility] COVERAGE: Days: [phone], please page attending physician. Nights: [phone], please page [facility] Night coverage pager [phone]. Subjective INTERVAL HPI: denies any chest pain [...] and Airways Line Duration Peripheral 12/08/24 1631 [facility] Left Antecubital 20 Gauge <1 day DATA: Diagnostic tests reviewed for today's visit: Most recent labs Most recent imaging Assessment/Plan Problem List Assessment AND Plan Frequent falls Low back pain Restless legs syndrome (RLS) Post-polio syndrome (HCC) Obstructive sleep apnea on CPAP Fall at snf BMI 37.0-37.9, adult Dysphagia HOSPITAL COURSE: Tena [...] -fall from wheelchair with (more content not included)...[facility] 12-09-2024 NoteHNO ID: [id number] Author: HUONG SANZ RN Service: Nursing Author Type: Registered Nurse Type: Nursing Progress Note Filed: 12/09/2024 02:31 Note Text: 0000 Spoke to respiratory therapist,patient refused CPAP for tonight. 0100 EKG done.[facility] [id number] [id number]-4 (AGENT OF COVID-19) RNA: Not detected INFLUENZA A RNA: Not detected INFLUENZA B RNA: Not detected RESPIRATORY SYNCYTIAL VIRUS (RSV) RNA: Not detectedDearing HospitalComment on above:Performed By: #### [id number] ####[facility] LABORATORYCLIA [id number] [place] [address] [place] OF [id number] Telephone encounter Note* Telephone Encounter - Uriel [...] is headed home to take Tena to [facility] since she has other symptoms as well. [facility]05-08-2025 Miscellaneous Notes* Telephone Encounter - Uriel [...] is headed home to take Tena to [facility] since she has other symptoms as well. [...] [facility] Please advise. * Telephone Encounter - Malika [...] pain with left-sided sciatica M54.[address] [facility]/SPINE/OCC MED Sahra Guy MD * Telephone Encounter - Wanda eNely RN - 12/02/2024 5:02 PM EDT Answer Assessment - Initial Assessment Questions Requesting a consult to Orthopedics The rehab didn't do anything for the Sciatica And they recommended a cortisone injection. Protocols used: Information Only Call - No Elkgms-VTFBZ-EY documented in this encounterMercy Health St. [facility]05-08-2025 Telephone encounter Note * Telephone Encounter - Corrine Lopez RN - 12/08/2024 1:45 PM EDT Daughter Juan left , inquiring regarding previous call. Called and spoke with Juan who states she just listened to VM and will be heading back to pt's home to notify EMS for pt to be evaluated in ED. Corrine Lopez RN [facility]05-08-2025 Miscellaneous Notes* Telephone Encounter - Corrine [...] 12/08/2024 1:30 PM EDT Called Juan at [phone]-left detailed message on identified VM with PCP message below. Called patient at [phone] -no answer. VM not set up-could not [...] or weak to the triager Protocols used: Gdlxwa-HSVVC-NR * Telephone Encounter - Alicia Sultana - 12/08/2024 10:55 AM EDT Patient's daughter Juan is calling Sahra Guy MD today with concern regarding patient having nausea and barely eating Patient has been identified by name and birthdate. Duration of symptoms: 5 days Please return call to don Martinez [phone] Was an appointment scheduled: No Closing statement: Symptom Call: Thank you for calling [facility], your call is very important. A nurse will call in approximately 2-4 hours during business hours. If this is an emergency, please contact 911. Alicia Sultana documented in this encounterMercy Health St. [facility]05-08-2025 Miscellaneous Notes* Telephone Encounter - Adonay Marquez LPN - 12/08/2024 1:34 PM EDT Please see triage encounter 12/08/24 * Telephone Encounter - Adonay Marquez LPN - 12/07/2024 5:03 PM EDT Called and spoke with pt and daughter Juan. Stated they will bean picker medication. Pt would like to know [...] SAHRA GUY Pharmacy Information Pharmacy Address Telephone [facility]/pharmacy #[id number] [place] [address] [phone] Sahra Guy MD * Telephone Encounter - Uriel Stover - 12/07/2024 3:18 PM EDT Patient's daughter is calling that the Rx Lidocaine is not covered for the 4% but the 5% is. She isasking if this can be re-ordered as such and sent to [facility] while she is in the [facility] today. Please call Juan if the Rx is being changed/sent. [phone] documented in [address] encounterMer[address] [facility]05-08-2025 Telephone encounter Note * Telephone Encounter - Adonay Marquez LPN - 12/08/2024 1:34 PM EDT Please see triage encounter 12/08/[address] [facility]05-08-2025 Telephone encounter Note* Telephone Encounter - Adonay Marquez LPN - 12/08/2024 1:33 PM EDT PA submitted. Response pending. [facility]05-08-2025 Telephone encounter Note* Telephone Encounter - Corrine Lopez RN - 12/08/2024 1:30 PM EDT Called Juan at [phone]-left detailed message on identified VM with PCP message below. Called patient at [phone] -no answer. VM not set up-could not leave message. Corrine Lopez RN [facility]05-08-2025 Telephone encounter Note* Telephone Encounter - Sahra Guy MD - 12/08/2024 1:20 PM EDT She should go to ER by ambulance. May have kidney infection causing back pain, sounds like she is dehydrated. Sahra Guy MD [facility]05-08-2025 Telephone encounter Note* Telephone Encounter - [...] or weak to the triager Protocols used: Rfobxk-GOOIQ-QL [facility]05-08-2025 Telephone encounter Note* Telephone Encounter - Alicia Sultana - 12/08/2024 10:55 AM EDT Patient's daughter Juan is calling Sahra Guy MD today with concern regarding patient having nausea and barely eating Patient has been identified by name and birthdate. Duration of symptoms: 5 days Please return call to daughter Juan [phone] Was an appointment scheduled: No Closing statement: Symptom Call: Thank you for calling [facility], your call is very important. A nurse will call in approximately 2-4 hours during business hours. If this is an emergency, please contact 911. Alicia Rockwelljayashree [facility]05-08-2025 Telephone encounter Note* Telephone Encounter - Norma Long - 12/08/2024 10:19 AM EDT Patient daughterJuan is calling Sahra Guy MD today to request a prior authorization forthe lidocaine 5% per pharmacy [facility] in [place] on [address] Please call daughter with updates on this PA Patient has been identified by name and birthdate. Person calling: daughter: Juan Call patient daughter Juan [phone] (home) [phone] (cell) Was an appointment scheduled: No Closing statement: Prior Auth needed for the Lidocaine Norma Monroe [facility]05-07-2025 Telephone encounter Note* Telephone Encounter - Adonay Marquez LPN - 12/07/2024 5:03 PM EDT Called and spoke with pt and daughter Juan. Stated they will bean picker medication. Pt would like to know how long it will take for muscle to recover. Please advise. [facility]05-07-2025 Telephone encounter Note* Telephone Encounter - Sahra Guy MD - 12/07/2024 4:52 PM EDT The following approved medication requests have been transmitted electronically. Requested Prescriptions Signed Prescriptions Disp Refills lidocaine (LIDODERM) 5 % 30 patch 2 Sig: Apply 1 patch as directed once daily. REMOVE AFTER 12 HOURS. Authorizing Provider: SAHRA GUY Pharmacy Information Pharmacy Address Telephone [facility]/pharmacy #[id number] [place] [id number] Sahra Guy MD [facility]05-07-2025 Telephone encounter Note* Telephone Encounter - Uriel Stover - 12/07/2024 3:18 PM EDT Patient's daughter is calling that the Rx Lidocaine is not covered for the 4% but the 5% is. She isasking if this can be re-ordered as such and sent to [facility] while she is in the [facility] today. Please call Juan if the Rx is being changed/sent. [phone] [facility]05-06-2025 Telephone encounter Note* Telephone Encounter - Adonay Marquez LPN - 12/06/2024 5:43 PM EDT Called and spoke with Nurse Anais. Anais is new but she believes that yes a mobile xray services comes.Faxed over xray orders and lidocaine order. Called and left VM with pt contact Juan. Called andnotified pt. [facility]05-06-2025 Telephone encounter Note* Telephone Encounter - Sahra Guy MD - 12/06/2024 5:19 PM EDT The following approved medication requests have been transmitted electronically. Requested Prescriptions Signed Prescriptions Disp Refills lidocaine HCL 4 % ptmd 60 patch 1 Sig: Apply to painful area once daily, remove after 12 hours Can they do a portable x ray at the facility ? Sahra Guy MD [facility]05-06-2025 Telephone encounter Note* Telephone Encounter - Lucymargret CitlalyAbdiTorri - 12/06/2024 1:23 PM EDT Patient is returning call and states she fell on Thursday at home (assisted Living), and has increaseback pain since the fall, she is aware of x-rays orders but states her back hurts so bad to even get dress, She is also aware Voice Mail is full and will clear it.Please advise the patient. [facility]05-05-2025 Telephone encounter Note* Telephone Encounter - Adonay Marquez LPN - 12/05/2024 4:37 PM EDT Received request for orders for lidocaine patches or [facility]ze [facility]. Please advise. [facility]05-05-2025 Telephone encounter Note* Telephone Encounter - Malika Sheikh LPN - 12/05/2024 4:08 PM EDT Mailbox is full. No message left [facility]05-05-2025 Telephone encounter Note* Telephone Encounter - Sahra Guy MD - 12/05/2024 1:20 PM EDT Has she had the lumbar x rays? Order placed in Sep. Back issues handled through spine or pain managemtn department not regular ortho Encounter Diagnosis ICD-10-CM 1. Acute left-sided low back pain with left-sided sciatica M54.[address] [facility]/SPINE/OCC MED Sahra Guy MD [facility]05-02-2025 Telephone encounter Note* Telephone Encounter - Wanda Neely RN - 12/02/2024 5:02 PM EDT Answer Assessment - Initial Assessment Questions Requesting a consult to Orthopedics The rehab didn't do anything for the Sciatica And they recommended a cortisone injection. Protocols used: Information Only Call - No Utbmkl-DLODC-UZ [facility] Work Phone: [phone] NoteHNO ID: [id number] Author: JOAQUIN CHILDRESS CPhT Service: ? Author Type: Pipe Covering Molder Type: Progress Notes Filed: 11/30/2024 09:12 Note [...] to be addressed Joaquin Childress CPhT [facility]30-[facility] History of Present illness Narrative* Joaquin [...] Childress CPhT [facility] Pharmacy Team documented in this encounterMercy Health St. [facility]04-30-2025 NotePatient Outreach (PHPOHE) TENA CANNON ([id number]) 1940 F Date Time Provider Department 11/30/24 SAHRA GUY PHPOHE During your visit today, we recorded the following information about you: Joaquin Childress CPhT 11/30/2024 9:12 AM Signed Patient is identified through a medication adherence outreach initiative based on pharmacy claims data from: [facility] Medication Adherence Category: Diabetes First Review Attribution [...] LOWER LEG [M25.569] 01/22/2007 VERTEBRAL FX NOS-CLOSED [LFC3810] 03/24/2007 RESTLESS LEGS SYNDROME [G25.81] BONE AND CARTILAGE DIS NOS [M89.9, M94.9] PAIN IN LIMB [M79.609] 11/22/2008 Deformity of ankle and foot, acquired [M21.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 Placed in provider's inbox for review. Route to MD for faxing [facility]03-24-2025 Miscellaneous Notes* Telephone Encounter - Malika Sheikh LPN - 10/24/2024 3:31 PM EDT Received 10/21/2024 from [facility]. Placed in provider's inbox for review. Route to MD for faxing documented in this encounterMer[facility] Health St. [facility]03-19-2025 Telephone encounter Note * Telephone Encounter - Adonay Marquez LPN - 10/19/2024 5:26 PM EDT Received orders from [facility]. Placed in provider's inbox for review. Route to [place] fax [facility]03-19-2025 Miscellaneous Notes* Telephone Encounter - Adonay Marquez LPN - 10/19/2024 5:26 PM EDT Received orders from [facility]. Placed in provider's inbox for review. Route to [place] fax documented in this encounterMer[facility]03-12-2025 Telephone encounter Note * Telephone Encounter - Adonay Marquez LPN - 10/12/2024 4:27 PM EDT Verbal order given [facility]03-12-2025 Miscellaneous Notes* Telephone Encounter - Adonay [...] calling: [facility] Physical [facility] Closing statement: Results or non-symptom based questions: Thank you for calling [facility], your call will be returned within the next business day. Cris Boucher documented in this encounterMercy Health St. [facility]03-12-2025 Telephone encounter Note * Telephone Encounter - Leonid Leal APRN.CNP - 10/12/2024 4:17 PM EDT Yes, please give verbal order Leonid Leal APRN.ANTONY [facility]03-12-2025 Telephone encounter Note* Telephone Encounter - [...] non-symptom based questions: Thank you for calling [facility], your call will be returned within the next business day. Cris Boucher [facility]03-11-2025 Telephone encounter Note* Telephone Encounter - Malika Sheikh LPN - 10/11/2024 1:59 PM EDT Verbal order given to per Dr Guy's original order for OT. [facility]03-11-2025 Miscellaneous Notes* Telephone Encounter - Mlaika Sheikh LPN - 10/11/2024 1:59 PM EDT Verbal order given to per Dr Guy's original order for OT. * Telephone Encounter - Rachel Stacy - 10/11/2024 1:13 PM EDT Jonathon from [facility] is calling for a verbal order for patient's home health care physical therapy. documented in this encounterMer[facility] Health St. [facility]03-11-2025 Telephone encounter Note * Telephone Encounter - Rcahel Stacy - 10/11/2024 1:13 PM EDT Jonathon from [facility] is calling for a verbal order for patient's home health care physical therapy. [facility] Work Phone: [phone] Telephone encounter Note* Telephone Encounter - Malika Sheikh LPN - 10/11/2024 12:49 PM EDT Orders faxed. [facility]03-11-2025 Miscellaneous Notes* Telephone Encounter - Malika Sheikh LPN - 10/11/2024 12:49 PM EDT Orders faxed. 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 Muscle strain of lower leg, unspecified laterality, initial encounter S86.919A CONSULT TO PHYSICAL THERAPY CON[facility]ULT TO [facility] 3. Falls frequently R29.6 CONSULT TO [facility] Please fax order , does she know [...] calling: self Call patient at: at home [phone] (home) [phone] (cell) Was an appointment scheduled: No Closing statement: Results or non-symptom based questions: Thank you for calling [facility], your call will be returned within the next business day. Tete Boucher documented in this encounterMercy Health St. [facility]03-11-2025 Telephone encounter Note * Telephone Encounter - Ninfa Erwin RN - 10/11/2024 10:21 AM EDT Patient called and LVM on Nurse Triage line; [facility], phone number is [phone] [facility]03-10-2025 Telephone encounter Note* Telephone Encounter - Malika Sheikh LPN - 10/10/2024 3:51 PM EDT Patient will call back with name of therapy that goes to her facility 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 Muscle strain of lower leg, unspecified laterality, initial encounter S86.919A CONSULT TO PHYSICAL THERAPY CONSULT TO [facility] 3. Falls frequently R29.6 CONSULT TO [facility] Please fax order , does she know which agency comes to her facility Sahra Guy MD [facility]03-06-2025 Telephone encounter Note* Telephone Encounter - Malika Sheikh LPN - 10/06/2024 4:02 PM EST Patient wanting an OT referral to educate and advise patient on ways not to fall in the bathroom. [facility]03-06-2025 Telephone encounter Note* Telephone Encounter - [...] THERAPY Fax to facility Sahra Guy MD [facility]03-06-2025 Telephone encounter Note* Telephone Encounter - Tete [...] calling: self Call patient at: at home [phone] (home) [phone] (cell) Was an appointment scheduled: No Closing statement: Results or non-symptom based questions: Thank you for calling [facility], your call will be returned within the next business day. Tete Boucher [facility]02-24-2025 Telephone encounter Note* Telephone Encounter - Curtis Ruiz RN - 09/26/2024 5:22 PM EST Spoke to patient who was advised of provider's message and verbalized understanding. [facility]02-24-2025 Miscellaneous Notes* Telephone Encounter - Curtis [...] 7 days. Pharmacy Information Pharmacy Address Telephone [facility]/pharmacy #[id number] [address] [place] [address] Sahra Guy MD * Telephone [...] rash) Radiates to toes Protocols used: Hip Kfld-ZGXSN-WZ * Telephone Encounter - Tete Melchor - 09/23/2024 4:24 PM EST Tena is calling Sahra Guy MD today with left hip pain. It is radiating down to her toe; describes anterior pain. She is seeking medical advice. Please call today. Patient has been identified by name and birthdate. Duration of symptoms: N/A Person calling: self Call patient at: at home [phone] (home) [phone] (cell) Was an appointment scheduled: No Closing statement: Symptom Call: Thank you for calling [facility], your call is very important. A nurse will call in approximately 2-4 hours during business hours. If this is an emergency, please contact 911. Tete Boucher documented in this encounterMercy Health St. [facility]02-[facility]-2025 Telephone encounter Note * Telephone Encounter [...] 7 days. Pharmacy Information Pharmacy Address Telephone [facility]/pharmacy #[id number] [place] [address] Sahra Guy MD [facility]02-24-2025 Telephone encounter Note* Telephone Encounter - Cris Rascon - 09/26/2024 2:02 PM EST Patient is calling back in asking if orders for xray were put in? Wants to know what kind of pain medication Dr. Guy would prescribe she is not wantiing to get something strong. Please give patient a call back. Cris Boucher [facility]02-24-2025 Telephone encounter Note* Telephone Encounter - Malika Sheikh LPN - 09/26/2024 10:23 AM EST LM for patient to call office. [facility]02-24-2025 Telephone encounter Note* Telephone Encounter - Sahra Guy MD - 09/26/2024 9:26 AM EST Does she need some pain meds? Sahra Guy MD [facility]02-24-2025 Telephone encounter Note* Telephone Encounter - Corrine [...] rash) Radiates to toes Protocols used: Hip Vhso-SUNFE-ZK [facility]02-21-2025 Telephone encounter Note* Telephone Encounter - Tete Melchor - 09/23/2024 4:24 PM EST Tena is calling Sahra Guy MD today with left hip pain. It is radiating down to her toe; describes anterior pain. She is seeking medical advice. Please call today. Patient has been identified by name and birthdate. Duration of symptoms: N/A Person calling: self Call patient at: at home [phone] (home) [phone] (cell) Was an appointment scheduled: No Closing statement: Symptom Call: Thank you for calling [facility], your call is very important. A nurse will call in approximately 2-4 hours during business hours. If this is an emergency, please contact 911. Tete Boucher [facility]02-21-2025 Telephone encounter Note* Telephone Encounter - Malika Sheikh LPN - 09/23/2024 10:05 AM EST Received 09/23/2024 from [facility] Placed in provider's inbox for review. Route to MD for faxing. [facility]02-21-2025 Miscellaneous Notes* Telephone Encounter - Malika Sheikh LPN - 09/23/2024 10:05 AM EST Received 09/23/2024 from [facility] Placed in provider's inbox for review. Route to MD for faxing. documented in this encounterMer[facility] St[facility]02-14-2025 NoteHNO ID: [id number] Author: SAHRA GUY MD Service: ? Author [...] September 16, 2024 11:30 AM Provider Attestation: ISahra MD, personally performed the services described in this documentation. All medical record entries made by the scribe were at my direction and in my telephonic presence. I have reviewed the chart and discharge instructions (if applicable), and agree that the record reflects my (more content not included)...[facility]02-14-2025 History of Present illness Narrative* Sahra [...] 16, 2024 12:44 PM documented in this encounterMer[facility] Telephone encounter Note * Telephone Encounter - Uriel Stover - 09/09/2024 10:56 AM EST Patient called back regarding orders needed. Orders were faxed to : [facility] [phone] [facility]02-07-2025 Miscellaneous Notes* Telephone Encounter - Uriel Stover - 09/09/2024 10:56 AM EST Patient called back regarding orders needed. Orders were faxed to : [facility] [phone] * Telephone Encounter - Cris Rascon - 09/09/2024 10:45 AM EST Tena is calling Sahra Guy MD today with concern regarding Orders Patient is there to get Lab work. If you can please FAX lab orders to them. FAX [phone]. Patient has been identified by name and birthdate. Duration of symptoms: N/A Person calling: Daphnie Forte Was an appointment scheduled: No Closing statement: Results or non-symptom based questions: Thank you for calling [facility], your call will be returned within the next business day. Cris Mary Pss documented in this encounterMer[facility]02[facility] Telephone encounter Note * Telephone Encounter - Cris Rascon - 09/09/2024 10:45 AM EST Tena is calling Sahra Guy MD today with concern regarding Orders Patient is there to get Lab work. If you can please FAX lab orders to them. FAX [phone]. Patient has been identified by name and birthdate. Duration of symptoms: N/A Person calling: Irwinnimisha Da Silvaan Was an appointment scheduled: No Closing statement: Results or non-symptom based questions: Thank you for calling [facility], your call will be returned within the next business day. Cris Boucher [facility]02-04-2025 Telephone encounter Note* Telephone Encounter - Inga Castellano - 09/06/2024 11:37 AM EST Called and scheduled pt f/u. She wanted PCP to have results prior to appt so she is getting lab drawn in [place]. [facility]02-04-2025 Miscellaneous Notes* Telephone Encounter - Inga [...] requesting a call back from a nurse. [phone] * Telephone Encounter - Malika Sheikh LPN - 09/02/2024 12:17 PM EST LM for patient to call office. She had assisted living nurse call office in separate encounter * Telephone Encounter - Sahra Guy MD - 09/01/2024 3:13 PM EST Lipid shows midley elevated LDL bad cholesterol , the hdl cholesterol is quite low. That's a change from previous. Not sure this is a correct value. Don't think we'd do anything different, but could repeat the lab at some point. Blood count OK Sahra Guy MD documented in this encounterMer[facility]02[facility] Telephone encounter Note * Telephone Encounter - Sahra Guy MD - 09/05/2024 10:04 AM EST We can see her any time and do the repeat lab . Sahra Guy MD [facility]01-31-2025 Telephone encounter Note* Telephone Encounter - Adonay Marquez LPN - 09/02/2024 4:00 PM EST Called and informed pt of pcp interpretation and recommendation. Pt would like to schedule a followup and have a repeat lab draw in the office. Please assist pt with scheduling [facility]01-31-2025 Telephone encounter Note* Telephone Encounter - Uriel Stover - 09/02/2024 2:08 PM EST Patient calling requesting a call back from a nurse. [phone] [facility]01-31-2025 Telephone encounter Note* Telephone Encounter - Malika Sheikh LPN - 09/02/2024 12:17 PM EST LM for patient to call office. She had assisted living nurse call office in separate encounter [facility]01-31-2025 Telephone encounter Note* Telephone Encounter - Malika Sheikh LPN - 09/02/2024 12:15 PM EST See previous encounter [facility]01-31-2025 Miscellaneous Notes* Telephone Encounter - Malika Sheikh LPN - 09/02/2024 12:15 PM EST See previous encounter * Telephone Encounter - Tete Melchor - 09/02/2024 11:10 AM EST Tena is a patient of Sahra Guy MD today LOBO Garcia called from the [facility] and stated the patient wants to find out her lab test results. Per Radha, the patient administers her own medications so it is fine to speak with the patient, please call her today. Patient has been identified by name and birthdate. Duration of symptoms: N/A Person calling: self Call patient at: on cell [phone] (home) [phone] (cell) Was an appointment scheduled: No Closing statement: Results or non-symptom based questions: Thank you for calling [facility], your call will be returned within the next business day. Tete Mora Pss documented in this encounterMer[facility]01-31-2025 Telephone encounter Note * Telephone Encounter - Tete Melchor - 09/02/2024 11:10 AM EST Tena is a patient of Sahra Guy MD today LOBO Garcia called from the [facility] and stated the patient wants to find out her lab test results. Per Radha, the patient administers her own medications so it is fine to speak with the patient, please call her today. Patient has been identified by name and birthdate. Duration of symptoms: N/A Person calling: self Call patient at: on cell [phone] (home) [phone] (cell) Was an appointment scheduled: No Closing statement: Results or non-symptom based questions: Thank you for calling [facility], your call will be returned within the next business day. Tete Mora Pss [facility]01-30-2025 Telephone encounter Note* Telephone Encounter - Sahra Guy MD - 09/01/2024 3:13 PM EST Lipid shows midley elevated LDL bad cholesterol , the hdl cholesterol is quite low. That's a change from previous. Not sure this is a correct value. Don't think we'd do anything different, but could repeat the lab at some point. Blood count OK Sahra Guy MD [facility]01-30-2025 Telephone encounter Note* Telephone Encounter - Adonay Marquez LPN - 09/01/2024 3:10 PM EST Results entered into pt chart. Please advise. [facility]01-30-2025 Miscellaneous Notes* Telephone Encounter - Adonay [...] calling: self Call patient at: at home [phone] (home) [phone] (cell) Was an appointment scheduled: No Closing statement: Results or non-symptom based questions: Thank you for calling [facility], your call will be returned within the next business day. Tete Bouchre documented in this encounterMer[facility] St. [facility]01-30-2025 Telephone encounter Note * Telephone Encounter - Uriel Stover - 09/01/2024 1:21 PM EST Rachel with [employer] is calling Sahra Guy MD today to request this month's Office visit Notes. Faxed to Rachel at fax number [phone] [facility]01-30-2025 Miscellaneous Notes* Telephone Encounter - Uriel Stover - 09/01/2024 1:21 PM EST Rachel with [facility] is calling Sahra Guy MD today to request this month's Office visit Notes. Faxed to Rachel at fax number [phone] documented [address] [facility]01-30-2025 Telephone encounter Note * Telephone Encounter - Sahra Guy MD - 09/01/2024 12:06 PM EST No results in scanned docs, do we have them? [facility]01-29-2025 Telephone encounter Note* Telephone Encounter - [...] calling: self Call patient at: at home [phone] (home) [phone] (cell) Was an appointment scheduled: No Closing statement: Results or non-symptom based questions: Thank you for calling [facility], your call will be returned within the next business day. Tete Boucher [facility]01-22-2025 Telephone encounter Note* Telephone Encounter - Adonay Marquez LPN - 08/24/2024 10:10 AM EST Received orders from [facility]. Placed in provider's inbox for review. Route to MD fax [facility]01-22-2025 Miscellaneous Notes* Telephone Encounter - Adonay Marquez LPN - 08/24/2024 10:10 AM EST Received orders from [facility]. Placed in provider's inbox for review. Route to MD fax documented in this encounterMer[facility]01-21-2025 Instructions* Patient Instructions* Sahra Guy MD [...] review all the medicines you take, even ghgm-bii-wqoeyca medicines. As you get older, the way [...] have certain medical conditions. documented in this encounterMercy Health St. [facility]01-21-2025 NoteHNO ID: [id number] Author: SAHRA GUY MD Service: ? Author [...] Obesity, Class III, BMI 40-49.9 (morbid obesity) ([facility]) Comment: Stable. 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 yes Would you like [...] Any memory concerns? Yes documented in this encounterMer[facility]01-21-2025 NoteHNO ID: [id number] Author: SAHRA GUY MD Service: ? Author [...] directive, such as health care power of hospital coordinator or living will? yes Would you like [...] aids Sahra Guy MD Any memory concerns? [facility] Telephone encounter Note* Telephone Encounter - Adonay Marquez LPN - 08/22/2024 3:37 PM EST Noted. [facility]01-20-2025 Miscellaneous Notes* Telephone Encounter - Adonay Marquez LPN - 08/22/2024 3:37 PM EST Noted. * Telephone Encounter - Norma Long - 08/22/2024 11:03 AM EST Tena is calling Sahra Guy MD today is now using [employer] with a new insurance company( using the [...] calling: self Call patient at: at home [phone] (home) [phone] (cell) Was an appointment scheduled: Yes: Date/Time: 08/23/[address] Guy Closing statement: Results or non-symptom based questions: Thank you for calling [facility], your call will be returned within the next business day. Norma Monroe documented in this encounterMercy Health St. [facility]01-20-2025 Telephone encounter Note * Telephone Encounter - Norma Long - 08/22/2024 11:03 AM EST Tena is calling Sahra Guy MD today is now using [employer] with a new insurance company( using the [...] calling: self Call patient at: at home [phone] (home) [phone] (cell) Was an appointment scheduled: Yes: Date/Time: 08/23/[address] Guy Closing statement: Results or non-symptom based questions: Thank you for calling [facility], your call will be returned within the next business day. Norma Monroe [facility]01-15-2025 Telephone encounter Note* Telephone Encounter - Malika Sheikh LPN - 08/17/2024 10:57 AM EST Verbal order given for PT and OT. Per home health patient did not know that she had an appointment for the . Call placed to patient and voicemail left stating time and date of appointment. Message left that visit is needed for insurance to authorize therapy [facility]01-15-2025 Miscellaneous Notes* Telephone Encounter - Malika [...] on behalf of Dr. Malena Leal APRN.ANTONY * Telephone Encounter - Alicia Sultana - 08/17/2024 9:23 AM EST Rachel from [facility] calling back and states that since patient is scheduled with Dr. Guy on 08/23 they will be able to use his name as a certifying provider. [facility] asking for a verbal order from Dr. Guy. Please return call to [phone] * Telephone Encounter - Adonay Marquez LPN [...] change your name. Copied and pasted from [email or web address] Please advise. * Telephone Encounter - [...] 08/15/2024 2:13 PM EST Rachel with [employer] is calling regarding Home PT and OT. Regulations are that it be from theprovider who had a face to face. Stated Leonid Mel would need to certify the care since she had aface to face with her. She also stated it is coming up as Leonid Roach in the system (PICOS would have to be updated). With the different last name a red flag will happen. Please call Rachel at [phone] documented [address]01-[facility]-2025 Telephone encounter Note * Telephone Encounter - Leonid Leal APRN.CNP - 08/17/2024 10:48 AM EST Yes, please give verbal order on behalf of Dr. Malena Leal APRN.ANTONY [facility]01-15-2025 Telephone encounter Note* Telephone Encounter - Alicia Sultana - 08/17/2024 9:23 AM EST Rachel from [employer] calling back and states that since patient is scheduled with Dr. Guy on 08/23 they will be able to use his name as a certifying provider. [facility] asking for a verbal order from Dr. Guy. Please return call to [phone] [facility]01-13-2025 Telephone encounter Note* Telephone Encounter - [...] change your name. Copied and pasted from [email or web address] Please advise. [facility]01-13-2025 Telephone encounter Note* Telephone Encounter - [...] about provider's name change. Leonid Leal APRN.CNP [facility]01-13-2025 Telephone encounter Note* Telephone Encounter - Uriel [...] flag will happen. Please call Rachel at [phone] [facility]01-09-2025 NoteHNO ID: [id number] Author: LEONID LEAL APRN.CNP Service: ? Author Type: Nurse Practitioner Type: Progress Notes Filed: 08/11/2024 15:02 Note Text: This note was created using Ticket Evolution[employer]. Subjective Tena Cannon is a 83 year [...] Keflex [Cephalexin], Vioxx [Rofecoxib], Novocain [Procaine Hcl], Amanda-3 Fish Oil [Amanda-3 Fatty Acids-Vitamin E], Advil [Ibuprofen], and Asa [...] alcohol (LIQUID TEARS OPHTHALMIC) Use in eyes. rutin/hesp/bioflav/C/epxqyu562 (BIOFLEX ORAL) Take 1 capsule by mouth [...] Age of Onset He (more content not included)...[facility]01-09-2025 History of Present illness Narrative* Leonid Leal APRN.ENGINEERING PRODUCTION LIAISON - 08/11/2024 1:41 PM EST Images from the original note were not included. This note was created using T[employer]. Subjective Tena Cannon is a 83 year [...] Keflex [Cephalexin], Vioxx [Rofecoxib], Novocain [Procaine Hcl], Amanda-3 Fish Oil [Amanda-3 Fatty Acids-Vitamin E], Advil [Ibuprofen], and Asa [...] alcohol (LIQUID TEARS OPHTHALMIC) Use in eyes. rutin/hesp/bioflav/C/kqehyi535 (BIOFLEX ORAL) Take 1 capsule by mouth [...] 0 Leonid Leal APRN.ANTONY documented in this encounterMer[facility]. [facility]01-09-2025 Telephone encounter Note * Telephone Encounter [...] Denies 11. : N/a Protocols used: Back Jxbr-EPVQE-JH [facility]01-09-2025 Miscellaneous Notes* Telephone Encounter - Alondra [...] Denies 11. : N/a Protocols used: Back Flgq-HPMDS-CD * Telephone Encounter - Cris Rascon - [...] calling: self Call patient at: at home [phone] (home) [phone] (cell) Was an appointment scheduled: No Closing statement: Symptom Call: Thank you for calling [facility], your call is very important. A nurse will call in approximately 2-4 hours during business hours. If this is an emergency, please contact 911. Cris Boucher documented in this encounterMercy Health St. [facility]01-[facility]-2025 Telephone encounter Note * Telephone Encounter [...] calling: self Call patient at: at home [phone] (home) [phone] (cell) Was an appointment scheduled: No Closing statement: Symptom Call: Thank you for calling [facility], your call is very important. A nurse will call in approximately 2-4 hours during business hours. If this is an emergency, please contact 911. Cris Boucher [facility]12-03-2024 Telephone encounter Note* Telephone Encounter - [...] next office visit in primary care: 08/23/2024 [employer] Mail order Please advise. Thank you. Uriel Stover. [facility]12-03-2024 Miscellaneous Notes* Telephone Encounter - Uriel [...] next office visit in primary care: 08/23/2024 [employer] Mail order Please advise. Thank you. Uriel Stover. documented in this encounterMer[facility]11-21-2024 Telephone encounter Note * Telephone Encounter - Adonay Marquez LPN - 06/23/2024 3:17 PM EST Received DNR order from [place]. Placed in provider's inbox for review. Route to [place] fax [facility]11-21-2024 Miscellaneous Notes* Telephone Encounter - Adonay Marquez LPN - 06/23/2024 3:17 PM EST Received DNR order from [place]. Placed in provider's inbox for review. Route to [place] fax documented in this encounterMer[facility]11-18-2024 Telephone encounter Note * Telephone Encounter - Sahra Guy MD - 06/20/2024 5:27 PM EST The following approved medication requests have been transmitted electronically. Requested Prescriptions Signed Prescriptions Disp Refills oxybutynin ER (DITROPAN XL) 10 mg 24 hr tablet 90 tablet 1 Sig: Take 1 tablet by mouth once daily. Authorizing Provider: SAHRA GUY MD [facility]11-18-2024 Miscellaneous Notes* Telephone Encounter - Sahra [...] 20, 2024 5:23 PM documented in this encounterMer[facility]. [facility]11-18-2024 Telephone encounter Note * Telephone Encounter [...] Marquez LPN June 20, 2024 5:[address] [facility]11-01-2024 Telephone encounter Note* Telephone Encounter - Malika Sheikh LPN - 06/03/2024 8:54 AM EDT Weights have been declined. Patient in motorized wheelchair. Voicemail left for patient. [facility]11-01-2024 Miscellaneous Notes* Telephone Encounter - Malika [...] calling: self Call patient at: at home [phone] (home) [phone] (cell) Was an appointment scheduled: No Closing statement: Results or non-symptom based questions: Thank you for calling [facility], your call will be returned within the next business day. Cris Boucher documented in this encounterMercy Health St. [facility]11-01-2024 Telephone encounter Note * Telephone Encounter - Malika Sheikh LPN - 06/03/2024 8:35 AM EDT Placed in mail for patient. [facility]11-01-2024 Miscellaneous Notes* Telephone Encounter - Malika [...] calling: self Call patient at: at home [phone] (home) [phone] (cell) Was an appointment scheduled: No Closing statement: Results or non-symptom based questions: Thank you for calling [facility], your call will be returned within the next business day. Norma Monroe documented in this encounterMercy Health St. [facility]10-31-2024 Telephone encounter Note * Telephone Encounter - Sahra Guy MD - 06/02/2024 5:13 PM EDT 197 lbs., Sahra Guy MD [facility]10-31-2024 Telephone encounter Note* Telephone Encounter - Norma Long - 06/02/2024 2:14 PM EDT Tnea is calling Sahra Guy MD today to request patient medication list be mailed to her please . The address has been verified Patient has been identified by name and birthdate. Person calling: self Call patient at: at home [phone] (home) [phone] (cell) Was an appointment scheduled: No Closing statement: Results or non-symptom based questions: Thank you for calling [facility], your call will be returned within the next business day. Norma Villegasc [facility]10-31-2024 Telephone encounter Note* Telephone Encounter - [...] calling: self Call patient at: at home [phone] (home) [phone] (cell) Was an appointment scheduled: No Closing statement: Results or non-symptom based questions: Thank you for calling [facility], your call will be returned within the next business day. Cris Boucher [facility]10-16-2024 Telephone encounter Note* Telephone Encounter - Adonay Marquez LPN - 05/18/2024 11:52 AM EDT RSV vaccine is not covered in office with pt insurance. Please assist pt in scheduling office visitwith provider for a check up. [facility]10-16-2024 Miscellaneous Notes* Telephone Encounter - Adonay [...] doctor since December. Please advise her at [phone] [address] [facility]10-16-2024 Telephone encounter Note * Telephone Encounter [...] doctor since December. Please advise her at [phone] [facility]09-04-2024 Telephone encounter Note* Telephone Encounter - [...] Giron LPN April 06, 2024 11:[address] [facility]09-04-2024 Miscellaneous Notes* Telephone Encounter - Jennifer [...] 06, 2024 11:26 AM documented in this encounterMer[facility] St. [facility]08-07-2024 Telephone encounter Note * Telephone Encounter - Malika Sheikh LPN - 03/09/2024 2:18 PM EDT Labs placed in mail. Voicemail left for patient. [facility]08-07-2024 Miscellaneous Notes* Telephone Encounter - Malika [...] the patient at her request: Tena Cannon [id number] [address] [place] [address] [address] * Telephone Encounter - Stephanie Rayo RN [...] a call to advise labs drawn at [facility] results and when provider reviews those labs patient is asking for them to be mailed to her, patient address has been verified. Patient has been identified by name and birthdate. Duration of symptoms: N/A Person calling: self Call patient at: at home [phone] (home) [phone] (cell) Was an appointment scheduled: No Closing statement: Results or non-symptom based questions: Thank you for calling [facility], your call will be returned within the next business day. Norma Monroe documented in this encounterMer[facility]. [facility]08-07-2024 Telephone encounter Note * Telephone Encounter - Leonid Roach APRN.CNP - 03/09/2024 1:29 PM EDT Her labs are all within normal limits. Leonid Roach APRN.CNP [facility]08-07-2024 Telephone encounter Note* Telephone Encounter - Stephanie Rayo RN - 03/09/2024 9:37 AM EDT Labs are resulted from [facility] Everywhere. Can you review Vit D, Lipid, CMP, CBC, A1C? Results have been mailed to the patient at her request: Tena Cannon [id number] [address] [place] [address] [address] [place] [id number] [facility]08-05-2024 Telephone encounter Note* Telephone Encounter - Stephanie Rayo RN - 03/07/2024 12:09 PM EDT Called patient. March 03 was the draw date. When the results are reviewed she would like them mailed. Patient is reminded external labs take longer to review due to faxing. Patient voiced understanding. Please notify patient when faxed results are received and reviewed. [facility]08-05-2024 Telephone encounter Note* Telephone Encounter - Norma Long - 03/07/2024 10:26 AM EDT Tena is calling Sahra Guy MD today to request a call to advise labs drawn at [facility] results and when provider reviews those labs patient is asking for them to be mailed to her, patient address has been verified. Patient has been identified by name and birthdate. Duration of symptoms: N/A Person calling: self Call patient at: at home [phone] (home) [phone] (cell) Was an appointment scheduled: No Closing statement: Results or non-symptom based questions: Thank you for calling [facility], your call will be returned within the next business day. Norma Monroe [facility]07-26-2024 Telephone encounter Note* Telephone Encounter - Woodbine Tete Boucher - 02/26/2024 4:43 PM EDT Patient returned phone call; she was notified that the labs were faxed, as she requested. [facility]07-26-2024 Miscellaneous Notes* Telephone Encounter - Woodbine Tete Boucher - 02/26/2024 4:43 PM EDT Patient returned phone call; she was notified that the labs were faxed, as she requested. * Telephone Encounter - Malika Sheikh LPN - 02/26/2024 4:41 PM EDT Labs faxed. Voicemail left for patient. * Telephone Encounter - Woodbine Tete Boucher - 02/26/2024 2:11 PM EDT Tena is calling Sahra Guy MD today patient is calling to request her lab orders are sent to: [facility], fax to: [phone]. Please notify patient once this is completed. Patient has been identified by name and birthdate. Duration of symptoms: N/A Person calling: self Call patient at: at home [phone] (home) [phone] (cell) Was an appointment scheduled: No Closing statement: Results or non-symptom based questions: Thank you for calling [facility], your call will be returned within the next business day. Tete Boucher documented in this encounterMer[facility] Telephone encounter Note * Telephone Encounter - Malika Sheikh LPN - 02/26/2024 4:41 PM EDT Labs faxed. Voicemail left for patient. [facility]07-26-2024 Telephone encounter Note* Telephone Encounter - Tete Melchor - 02/26/2024 2:11 PM EDT Tena is calling Sahra Guy MD today patient is calling to request her lab orders are sent to: [facility], fax to: [phone]. Please notify patient once this is completed. Patient has been identified by name and birthdate. Duration of symptoms: N/A Person calling: self Call patient at: at home [phone] (home) [phone] (cell) Was an appointment scheduled: No Closing statement: Results or non-symptom based questions: Thank you for calling [facility], your call will be returned within the next business day. Tete Boucher [facility]07-25-2024 Telephone encounter Note* Telephone Encounter - Adonay Marquez LPN - 02/25/2024 4:03 PM EDT Called and informed pt. [facility]07-25-2024 Miscellaneous Notes* Telephone Encounter - Adonay Marquez LPN - 02/25/2024 4:03 PM EDT Called and informed pt. * Telephone Encounter - Leonid Roach APRN.CNP - 02/23/2024 9:10 AM EDT Patient is due for fasting labs, orders placed Leonid Roach APRN.CNP * Telephone Encounter - Adonay Marquez LPN - 02/23/2024 8:30 AM EDT Pharmacy verified in [facility] Patient has been identified by name [...] advise. Adonay Marquez LPN documented in this encounterMer[facility] Telephone encounter Note * Telephone Encounter - Leonid Roach APRN.CNP - 02/23/2024 9:10 AM EDT Patient is due for fasting labs, orders placed Leonid Roach APRN.CNP [facility]07-23-2024 Telephone encounter Note* Telephone Encounter - [...] 09/25/2022 5.0 Please advise. Adonay Marquez LPN [facility]06-24-2024 Telephone encounter Note* Telephone Encounter - [...] AFFECTED AREA ONCE DAILY JYOTI Harris Jerardo [facility] January 25, 2024 1:[address] [facility]06-24-2024 Miscellaneous Notes* Telephone Encounter - Kimberly [...] 25, 2024 1:40 PM documented in this encounterMer[facility]06[facility]24 Telephone encounter Note * Telephone Encounter - Sahra Guy MD - 01/13/2024 8:33 AM EDT The following approved medication requests have been transmitted electronically. Requested Prescriptions Signed Prescriptions Disp Refills oxybutynin ER (DITROPAN XL) 10 mg 24 hr tablet 90 tablet 1 Sig: Take 1 tablet by mouth once daily. Authorizing Provider: SAHRA GUY MD [facility]06-12-2024 Miscellaneous Notes* Telephone Encounter - Sahra [...] 12, 2024 4:35 PM documented in this encounterMer[facility]06[facility]-2024 Telephone encounter Note * Telephone Encounter [...] Marquez LPN January 12, 2024 4:[address] [facility]05-09-2024 Instructions* Patient Instructions* Sahra Guy MD - 12/10/2023 9:56 AM EDT Try Zyrtec 10 mg daily for allergies , also consider Flonase nasal spray 1 spray each nostril daily documented in this encounterMercy Health St. [facility]05-09-2024 History of Present illness Narrative* Sahra [...] ALLERGIES Keflex [Cephalexin], Novacaine [Other], Vioxx [Rofecoxib], Amanda-3 Fish Oil [Amanda-3 Fatty Acids-Vitamin E], Advil [Ibuprofen], and Asa [...] alcohol (LIQUID TEARS OPHTHALMIC) Use in eyes. rutin/hesp/bioflav/C/kdgbui724 (BIOFLEX ORAL) Take 1 capsule by mouth [...] Advance Directive Discussion Due for Covid-19 Vaccine (2022-24 season) Labs reviewed. Past medical history, appointments, [...] 10, 2023 1:35 PM documented in this encounterMer[facility]04[facility]2024 Telephone encounter Note * Telephone Encounter - Sahra Guy MD - 11/26/2023 3:13 PM EDT Schedule appt. Haven't seen her since March. Sahra Guy MD [facility]04-25-2024 Miscellaneous Notes* Telephone Encounter - Sahra Guy MD - 11/26/2023 3:13 PM EDT Schedule appt. Haven't seen her since March. Sahra Guy MD * Telephone Encounter - Uriel Stover - 11/25/2023 3:47 PM EDT FYI- Patient called and wanted Dr. Guy to know that she is aware of the paperwork being sent to him from [place], and she agrees and is fine with going into their Assisted Living. She wants to stay there. * Telephone Encounter - Malika Sheikh LPN - 11/25/2023 3:29 PM EDT Received 11/25/2023 from [facility] [place] [facility]. Placed in provider's inbox for review. Route to MD for faxing. documented in this encounterMer[facility]04-24-2024 Telephone encounter Note * Telephone Encounter - Uriel Stover - 11/25/2023 3:47 PM EDT FYI- Patient called and wanted Dr. Guy to know that she is aware of the paperwork being sent to him from [place], and she agrees and is fine with going into their Assisted Living. She wants to stay there. [facility]04-24-2024 Telephone encounter Note* Telephone Encounter - Malika Sheikh LPN - 11/25/2023 3:29 PM EDT Received 11/25/2023 from [facility]. Placed in provider's inbox for review. Route to MD for faxing. [facility]12-11-2023 Miscellaneous Notes* Telephone Encounter - Jennifer Giron LPN - 07/13/2023 1:34 PM EST Last appointment: 03/10/23 Next appointment: none Pharmacy verified in [facility]. Refill(s) requested: Requested Prescriptions Pending Prescriptions Disp Refills oxybutynin ER (DITROPAN XL) 10 mg 24 hr tablet [Pharmacy Med Name: OXYBUTYNIN TAB 10MG ER] 90 tablet 1 Sig: take 1 tablet once daily Order(s) pended. Please advise. Jennifer Giron LPN, SALES DRIVER documented in this encounterMer[facility] St[facility]10-06-2023 Miscellaneous Notes* Telephone Encounter - Stephanie [...] notify patient. Norma Monroe documented in this encounterMercy Health St. [facility]09-21-2023 History of Present illness Narrative* Jeannette Melgar, PT - 04/23/2023 2:49 PM EDT Patient history gathered and found that patient is currently receiving home care. No further evaluation completed this date. Patient provided information regarding adaptive equipment that may be helpful with ADL's. documented in this encounterMercy Health St. [facility]09-07-2023 History of Present illness Narrative* Nevaeh Hernandez, [facility]-PASSENGER INTERLINE CLERK - 04/09/2023 2:55 PM EDT Episode Visit Count: 1 Start of Care Date: 04/09/23 Onset Date: 04/03/13 Plan of Care Certification Date: 04/09/23 Next Certification Due Date: 04/09/23 Patient Identified by Name and Date of : Yes [facility] SPEECH THERAPY [...] 90 degrees for all PO, Small Bite/Sip PASSENGER INTERLINE CLERK Recommendations: Diet, Swallowing Precautions, Discontinue Speech Therapy [...] degrees for allPO, Small Bite/Sip Clinical Swallow [place] Swallow Protocol: Pass Oral Pharyngeal Swallow Assessment: [...] PC, Silvia DA, Clive CJ, Raven LONNIE, Lisnadra GN, Ayush J, and Mars KELLY. Validity [...] Back: States/Identifies TREATMENT: Evaluation: Swallow Eval Func (99221) Evaluation: Swallow Eval Func (84764) Swallow / Dysphagia (69573): Skilled Intervention: Provided education related to a [...] and swallowing strategies. Billing: Clinical Swallow Evaluation (84374) and Dysphagia Treatment (92865) Total time / Length of visit: 50 minutes Session Start Time : 1345 Session Stop Time : 1435 Nevaeh Hernandez CCC-PASSENGER INTERLINE CLERK documented in this encounterMercy Health St[facility]09-07-2023 Miscellaneous Notes* Telephone Encounter - Sara Vasquez RN - 04/09/2023 9:47 AM EDT Images from the original note were not included. Attempted to call patient to relay message below: Ken Trent MD Lemin, Sarah, HILDA Ruiz, Do you mind giving Ms. Cannon [...] Sara Vasquez RN, BSN documented in this encounterMercy Health St[facility]09-01-2023 History of Present illness Narrative* Ken Trent MD - 04/03/2023 2:00 PM EDT [facility] [place] [facility] New Patient Visit Note Consultation [...] (L): 0 Achilles: (R): 0 (L): 0 Guold: (R): absent (L): absent Pectoralis: (R): absent (L): absent Babinski: (R): absent (L): absent Jaw jerk: Absent COORDINATION Intact jbrqvl-yb-ibea, qfep-nr-rxqc, and rapid alternating movements. No tremor. SENSATION Light touch: intact Proprioception: intact Vibration: Reduced to ankle in the LLE Pinprick: intact Negative Romberg test. GAIT Routine and tandem gait are normal. Able to rise from seated position without the use of hands Assessment: Ms. 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 Ken Trent MD Neuromuscular Medicine (NM) [facility], [facility] documented in this encounterMercy Health St. [facility]08-21-2023 Miscellaneous Notes* Telephone Encounter - Adonay Marquez - 03/23/2023 3:25 PM EDT Received OT referral request from [facility]/ [facility]. Placed in provider's inbox for review. Route to MD fax [phone] documented in this encounterMercy Health St[facility]08-09-2023 Miscellaneous Notes* Telephone Encounter - Sahra [...] 03/11/2023 2:38 PM EDT Pharmacy verified in [facility] Patient has been identified by name [...] advise. Malika Sheikh LPN documented in this encounterMercy Health St. 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 [facility]05-09-2023 Miscellaneous Notes* Telephone Encounter - Malika Sheikh LPN - 12/09/2022 2:20 PM EDT Received 12/09/2022 from [facility]. Placed in provider's inbox for review. Route to MD for faxing Patient has no medical contradictions to using hearing aid(s) documented in this encounterMercy [facility] St[facility]02-28-2023 Miscellaneous Notes* Telephone Encounter - Leonid Roach APRN.ANTONY - 09/30/2022 11:37 AM EST Requested Prescriptions Signed Prescriptions Disp Refills valACYclovir (VALTREX) 1 gram 21 tablet 0 Sig: Take 1 tablet by mouth three times daily for 7 days. Authorizing Provider: LEONID ROACH Pharmacy Information Pharmacy Address Telephone [id number] [place] [address] * Telephone Encounter - Adonay Marquez - 09/30/2022 11:12 AM EST [facility] * Telephone Encounter - Alicia Sultana - 09/30/2022 10:51 AM EST Patient was prescribed valACYclovir (VALTREX) 1 gram. Medication was sent to wrong pharmacy. Please send to [facility] in [place]. documented in this encounterMer[facility]02-24-2023 Miscellaneous Notes* Telephone Encounter - Yelena King Ma - 09/26/2022 11:30 AM EST Patient notified and voiced understanding * Telephone Encounter - Yelena King Ma - 09/26/2022 11:26 AM EST Images from the original note were not included. Theresa Zarate APRN.ANTONY [facility] Primary Care Triage Nurse [place]; [facility] Please inform patient that her lab results are normal or within the acceptable range. Please ask that she follow recommendations as stated at office visit. Theresa Zarate APRN.ENGINEERING PRODUCTION LIAISON documented in this encounterMercy Health St[facility]02-24-2023 Miscellaneous Notes* Telephone Encounter - Cris Stewart RN - 09/26/2022 10:04 AM EST Message to patient, results mailed to her per request. Address checked. * Telephone Encounter - Stephanie Rayo RN - 09/26/2022 9:30 AM EST Images from the original note were not included. Theresa Zarate APRN.ANTONY [facility] [place] Primary Care Triage Nurse [place]; [facility] Please inform patient that her lab results are normal or within the acceptable range. Please ask that she follow recommendations as stated at office visit. Theresa Zarate APRN.ENGINEERING PRODUCTION LIAISON Called patient at [phone]. Left message on voicemail for patient to return call for message from provider. documented in this encounterMer[facility] Health St[facility]02-15-2023 Miscellaneous Notes* Telephone Encounter - Cris [...] last menstrual period? N/A Protocols used: Toe Ssbr-EANTX-AO * Telephone Encounter - Stephanie Rayo RN - 09/17/2022 11:02 AM EST Called patient at [phone] to triage her upcoming appointment with Dr. Guy for big toe redness and pain. Dr. Guy has many openings sooner than this if she needs to move it up. Left message on voicemail for patient to return call to triage. documented in this encounterMercy Health St[facility]01-03-2023 Miscellaneous Notes* Telephone Encounter - Malika Sheikh LPN - 08/05/2022 11:54 AM EST Pharmacy verified in [facility] Patient has been identified by name and date of : Yes Patient aware RX will be sent to pharmacy. No need to notify patient. Pharmacy phones for refill(s): Requested Prescriptions Pending Prescriptions Disp Refills esomeprazole (NEXIUM) 40 mg capsule [Pharmacy Med Name: ESOMEPRA MAG CAP 40MG ] 90 capsule 3 Sig: TAKE 1 CAPSULE DAILY BEFOREBREAKFAST. 1/2 HOUR BEFORE A MEAL Date of last office visit : 04/08/2022 Date of next office visit : Visit date not found Last 2 Encounter Wt Readings: Date: Wt: 04/08/2022 0 kg () 10/29/2021 0 kg () Not applicable Please advise. Malika Sheikh LPN documented in this encounterMercy Health St. [facility]12-12-2022 Miscellaneous Notes* Telephone Encounter - Malika Sheikh LPN - 07/14/2022 3:52 PM EST Received 07/14/2022 from Patient. Placed in provider's inbox for review. Route to MD for mailing Disability license plate form documented in this encounterMercy Health St. [facility]11-10-2022 Instructions* Patient Instructions* Leonid Roach APRN.ENGINEERING PRODUCTION LIAISON - 06/12/2022 10:05 AM EST FACT SHEET FOR PATIENTS, PARENTS, AND CAREGIVERS EMERGENCY USE AUTHORIZATION (EUA) OF PAXLOVID FOR CORONAVIRUS DISEASE 2019 (COVID-19) You are being given this Fact Sheet because your healthcare provider believes it is necessary to provide you with PAXLOVID for the treatment of jpzi-dk-wkxhpncx coronavirus disease (COVID-19) caused by the SARS-CoV-2 [...] virus. COVID-19 illnesses have ranged from very pdjq-yj-anyhjy, including illness resulting in . While information [...] is an investigational medicine used to treat xkld-mi-qriqsuus COVID-19 in adults and children [12 years [...] of using PAXLOVID to treat people with ghfe-af-ssfmafll COVID-19. The FDA has authorized the emergency use of PAXLOVID for the treatment of opdi-xy-linqkfiz COVID-19in adults and children [12 years of [...] the medicines you take, including prescription and tgra-lne-hbwpslt medicines, vitamins, and herbal supplements. Some medicines [...] oral midazolam Apalutamide Carbamazepine, phenobarbital, phenytoin Rifampin Jude s Wort (hypericum perforatum) Taking PAXLOVID with [...] (remdesivir) is FDA-approved for the treatment of wfed-vk-qyyyxdro COVID-19 in certain adults and children. Talk with your doctor to see if Veklury is appropriate for you. Like PAXLOVID, FDA may also allow for the emergency use of other medicines to treat people with COVID-19. Go to https://www.fda.gov/ommpmqxtm-nfdadskzvcnr-hfywawqwbvt/qyp-dujvn-qfjhykhlnf-and- policy-framework/uernbpkfy-gki-dmrwnrdipssiy for information on the emergency use of [...] if I am or ? There is medical stenographer treating women or mothers with PAXLOVID. For [...] not go away. Report side effects to [employer]lance[employer] at www.fda.gov/medwatch or call 9-911-JIO3571 or you can reportside effects to [employer] at the contact information provided below. Website Fax number Telephone number Panvidea How should I store PAXLOVID? Store PAXLOVID [...] (EUA). The EUA is supported by a Knitter Machine of Health and Human Service (HHS) declaration that circumstances exist to justify the emergency use of drugs and biological productsduring the COVID-19 pandemic. PAXLOVID for the treatment of ssln-fh-veojnqah COVID-19 in adults and children [12 years [...] telephone number provided below. Website Telephone number www.IKLCB95nvaxGw.com (4-766-E38-RLTX) You can also go to www.ChronoWake or call for more information. [employer] Distributed by [employer] [place] [address] LAB-1494-2.1 Revised: 18 October 2021 FACT SHEET FOR PATIENTS, PARENTS, AND CAREGIVERS EMERGENCY USE AUTHORIZATION (EUA) OF PAXLOVID FOR CORONAVIRUS DISEASE 2019 (COVID-19) You are being given this Fact Sheet because your healthcare provider believes it is necessary to provide you with PAXLOVID for the treatment of iiwt-zm-pzaczosi coronavirus disease (COVID-19) caused by the SARS-CoV-2 [...] virus. COVID-19 illnesses have ranged from very pwsk-ct-dbloxp, including illness resulting in . While information [...] is an investigational medicine used to treat iioo-la-jdvenzik COVID-19 in adults and children [12 years [...] of using PAXLOVID to treat people with tgso-cg-ckylvhaf COVID-19. The FDA has authorized the emergency use of PAXLOVID for the treatment of niar-em-tchxcsqs COVID-19in adults and children [12 years of [...] the medicines you take, including prescription and wuoh-dcx-nczclzk medicines, vitamins, and herbal supplements. Some medicines [...] oral midazolam Apalutamide Carbamazepine, phenobarbital, phenytoin Rifampin Jude s Wort (hypericum perforatum) Taking PAXLOVID with [...] (remdesivir) is FDA-approved for the treatment of fszw-ih-qdovmrij COVID-19 in certain adults and children. Talk with your doctor to see if Veklury is appropriate for you. Like PAXLOVID, FDA may also allow for the emergency use of other medicines to treat people with COVID-19. Go to https://www.fda.gov/pmvcuzltx-fzjkictmzkts-hbtmhortmfr/wml-yrffx-mpaurfoxel-and- policy-framework/egihsnqkm-fav-argkdqfxuzkxs for information on the emergency use of [...] if I am or ? There is medical stenographer treating women or mothers with PAXLOVID. For [...] to FDA MedWatch at www.fda.gov/medwatch or call 4-384-PAC1055 or you can reportside effects to [employer]. at the contact information provided below. Website Fax number Telephone number [employer] How should I store PAXLOVID? Store PAXLOVID [...] (EUA). The EUA is supported by a Cabins of Health and Human Service (HHS) declaration that circumstances exist to justify the emergency use of drugs and biological productsduring the COVID-19 pandemic. PAXLOVID for the treatment of uctj-oq-ecefysce COVID-19 in adults and children [12 years [...] telephone number provided below. Website Telephone number www.Precipio (3-666-Y67-XUNY) You can also go to www.[email or web address] Housekeeper or call for more information. [employer] Distributed by [employer] [place] [address] [id number] Revised: 18 October 2021 documented in [address] encounterMer[address]11-10-2022 History of Present illness Narrative* Leonid Roach APRN.CNP - 06/12/2022 10:02 AM EST Nirmatrelvir/Ritonavir (Paxlovid) Eligibility and Patient Discussion [facility] Formulary Restriction Criteria: Adult outpatients 18 [...] and disinfect high touch surfaces, and frequent h andwashing) according to CDC guidelines. The patient stated understanding and gave verbal consent to proceeding with nirmatrelvir/ritonavir treatment. Leonid Roach APRN.CNP June 12, 2022 10:02 AM Symptoms x 4 days: nasal congestion/drainage, eyes burning, cough. No wheezing/SOB/fever. Has been taking sudafed. Telephone time: 9 minutes documented in this encounterMercy Health St. [facility]11-09-2022 Miscellaneous Notes* Telephone Encounter - Leonid [...] Was it confirmed by a positive lab testor self-test? If not diagnosed by a doctor (or AVID EDITOR/PA), ask Are there lots of cases (community spread) where you live? Note: See [facility] website, if unsure. Home Test [...] breath, wheezing, unable to speak) Denies 8. AJFDYL-HOYE-AQBTJ: Are you getting better, staying the same or getting worse compared to yesterday? If getting worse, ask, In what way? Unchanged 9. HIGH RISK DISEASE: Do you have any chronic medical problems? (e.g., asthma, heart or lung disease, weak immune system, obesity, etc.) Denies 10. VACCINE: Have you had the COVID-19 vaccine? If Yes, ask: Which one, how many shots, when didyou get it? Yes, Pfizer 11. BOOSTER: Have [...] today? What is your usual oxygen saturation reading?(e.g., 95%) 97%-62 Protocols used: Coronavirus (COVID-19) Diagnosed or Evcdmtyjx-SNMWO-IH documented in this encounterMercy Health St. [facility]11-[facility]-2022 Miscellaneous Notes* Telephone Encounter - Corrine Lopez RN - 06/11/2022 2:40 PM EST Patient being triaged in One Click encounter. Corrine Lopez RN * Telephone Encounter - Cris Boucher - 06/11/2022 2:22 PM EST Appointment with [facility] Nurse @ 3:00 today. Patient tested positive for COVID and wants to have prescription called in to [facility] in [place]. Symptoms: Cold Cough Sinus pressure Runny nose Eyes are burning Patient also stated she fell last night at home. Called the squad to come and pick her up. Contact patient at [phone] Cris Boucher documented in this encounterMer[facility]09[facility]07[facility]2022 Miscellaneous Notes* Telephone Encounter - Adonay Marquez - 04/09/2022 5:15 PM EDT Called pt and informed of results pt indicated understanding. * Telephone Encounter - Sahra Guy MD - 04/09/2022 8:28 AM EDT Hba1c diabetes test well inside normal range Thyroid stimulating hormone is in normal range, indicating normal thyroid function. Sahra Guy MD documented in this encounterMer[facility] Health [facility]08-24-2022 Miscellaneous Notes* Telephone Encounter - Sahra [...] patient. Tete Mora Pss documented in this encounterMercy Health St. [facility]08-19-2022 Miscellaneous Notes* Telephone Encounter - Malika [...] calling: self Call patient at: at home [phone] (home) [phone] (cell) Was an appointment scheduled: No Closing statement: Results or non-symptom based questions: Thank you for calling [facility], your call will be returned within the next business day. Tete Mora Pss documented in this encounterMercy Health St. [facility]05-19-2022 Miscellaneous Notes* Telephone Encounter - Adonay Marquez - 12/19/2021 2:14 PM EDT Received request for PCP signature from [facility]. Placed in provider's inbox for review. Route to MD fax documented in this encounterMercy Health St. [facility]05-13-2022 History of Present illness Narrative* Nakita Bronson - 12/13/2021 4:32 PM EDT POPULATION HEALTH NAVIGATION OUTREACH Action/FYI LVM FOR PATIENT TO CALL BACK AND SCHEDULE CONSULT FOR PT/OT. [phone] Pt identified by name and : NO [...] 13, 2021 4:32 PM documented in this encounterMercy Health St. [facility]05-05-2022 Miscellaneous Notes* Telephone Encounter - Adonay Marquez - 12/05/2021 8:20 AM EDT [facility] office printed in provider inbox pending signature. * Telephone Encounter - Alicia Sultana - 12/04/2021 1:07 PM EDT [facility] calling to request office note from 10/29/21. Also requesting a physician signature on thenote. Please fax to [phone] documented [address] [facility]05-04-2022 Miscellaneous Notes* Telephone Encounter - Malika Sheikh LPN - 12/04/2021 10:52 AM EDT Received 2021 from [facility]. Placed in provider's inbox for review. Route to MD for faxing [phone] documented [address] [facility]05-02-2022 Miscellaneous Notes* Telephone Encounter - Adonay Marquez - 12/02/2021 11:27 AM EDT Update and orders signed and faxed to [facility]. documented in this encounterMercy Health St[facility]04-28-2022 Miscellaneous Notes* Telephone Encounter - Mailka Sheikh LPN - 11/28/2021 2:33 PM EDT Received 11/28/2021 from [facility]. Placed in provider's inbox for review. Route to MD for scanning Discharge summary documented in this encounterMercy Health St. [facility]04-21-2022 Miscellaneous Notes* Telephone Encounter - Malika Sheikh LPN - 11/21/2021 2:00 PM EDT Received 11/21/2021 from [facility]. Placed in provider's inbox for review. Route to MD for faxing [phone] Home health certification and plan of care to be signed and faxed. documented in this encounterMercy Health St. [facility]04-20-2022 Miscellaneous Notes* Telephone Encounter - Malika Sheikh LPN - 11/20/2021 12:01 PM EDT Spoke to Rachel. Additional signed note from 08/08/2021 faxed * Telephone Encounter - Kimberly Boucher - 11/20/2021 11:25 AM EDT Rachel, from [facility] stated she received the fax, but it was not signed by Dr. Guy. Said it was signed by a scribe. Please re-fax to [phone]. Rachel can be reached at [phone]. * Telephone Encounter - Malika Sheikh LPN - 11/20/2021 10:07 AM EDT Fax sent * Telephone Encounter - Rachel Valdez Pss - 11/20/2021 9:00 AM EDT Rachel from [facility] is requesting the chart note from the 10-29-21 visit to beused as a F2F visit for her [facility]. It can be faxed to [phone] Att: Rachel documented in this encounterMercy Health St. [facility]04-05-2022 Miscellaneous Notes* Telephone Encounter - Leonid Roach APRN.CNP - 11/05/2021 4:20 PM EDT Noted. Leonid Roach APRN.CNP * Telephone Encounter - Tete Mora Pss - 11/05/2021 4:11 PM EDT Shabana, Physical Therapist from [facility] called to update the doctor. Today she completed the PT evaluation and start of care: 2 times per week 2 -week period 1 time per week for 2 more weeks She will work with the patient on: Transfers, home safety, strengthening; any pain issues; no further action is requested, she is providing an update. documented in this encounterMercy Health St. [facility]03-31-2022 Miscellaneous Notes* Telephone Encounter - Leonid [...] stable. Leonid Roach APRN.CNP documented in this encounterMercy Health St. [facility]03-29-2022 History of Present illness Narrative* Sahra [...] KYPHOPLASTY LUMBAR 2007 L-3 LAPAROSCOPY SURG CHOLECYSTECTOMY Cholecystectomy, lap PAST [...] ALLERGIES: Keflex [Cephalexin], Novacaine [Other], Vioxx [Rofecoxib], Amanda-3 Fish Oil [Amanda-3 Fatty Acids-Vitamin E], Advil [Ibuprofen], and Asa [...] 29, 2021 10:15 AM documented in this encounterMercy Health St. [facility]01-23-2019 History of Past illness Narrative* Problem [...] of this encounter (statuses as of 10/29/2021) [facility] of Past illness Narrative* Problem [...] of this encounter (statuses as of 10/31/2021) [facility] of Past illness Narrative* Problem [...] of this encounter (statuses as of 11/06/2021) [facility] of Past illness Narrative* Problem [...] of this encounter (statuses as of 11/20/2021) [facility] of Past illness Narrative* Problem [...] of this encounter (statuses as of 11/21/2021) [facility] of Past illness Narrative* Problem [...] of this encounter (statuses as of 11/28/2021) [facility] of Past illness Narrative* Problem [...] of this encounter (statuses as of 12/02/2021) [facility] of Past illness Narrative* Problem [...] of this encounter (statuses as of 12/04/2021) [facility] of [facility] illness Narrative* Problem [...] of this encounter (statuses as of 12/05/2021) [facility] of [facility] illness Narrative* Problem [...] of this encounter (statuses as of 12/13/2021) [facility] of Past illness Narrative* Problem [...] of this encounter (statuses as of 12/19/2021) [facility] of Past illness Narrative* Problem [...] of this encounter (statuses as of 03/21/2022) [facility] of [facility] illness Narrative* Problem [...] of this encounter (statuses as of 03/26/2022) [facility] of [facility] illness Narrative* Problem [...] of this encounter (statuses as of 04/04/2022) [facility] of [facility] illness Narrative* Problem [...] of this encounter (statuses as of 04/09/2022) [facility] Narrative* Problem [...] of this encounter (statuses as of 06/11/2022) [facility] Narrative* Problem [...] of this encounter (statuses as of 06/15/2022) [facility] Narrative* Problem [...] of this encounter (statuses as of 07/14/2022) [facility] Narrative* Problem [...] of this encounter (statuses as of 08/07/2022) [facility] Narrative* Problem [...] of this encounter (statuses as of 09/17/2022) [facility] Narrative* Problem [...] of this encounter (statuses as of 09/26/2022) [facility] Narrative* Problem [...] of this encounter (statuses as of 09/30/2022) [facility] Narrative* Problem [...] of this encounter (statuses as of 12/09/2022) [facility] Narrative* Problem [...] lesion 07/29/2018 019 Fracture of L1 vertebra 06/02/2014 07/09/2018 Sleep apnea 04/15/2010 02/01/2019 documented as of this encounter (statuses as of 03/10/2023) [facility] Narrative* Problem [...] of this encounter (statuses as of 03/13/2023) [facility] Narrative* Problem [...] of this encounter (statuses as of 03/24/2023) [facility] Narrative* Problem [...] of this encounter (statuses as of 04/04/2023) [facility] Narrative* Problem [...] of this encounter (statuses as of 04/09/2023) [facility] Narrative* Problem [...] of this encounter (statuses as of 04/09/2023) [facility] Narrative* Problem [...] of this encounter (statuses as of 04/10/2023) [facility] Narrative* Problem [...] of this encounter (statuses as of 04/24/2023) [facility] Narrative* Problem [...] of this encounter (statuses as of 05/09/2023) [facility] Narrative* Problem [...] of this encounter (statuses as of 05/27/2023) [facility] of [facility] illness Narrative* Problem [...] of this encounter (statuses as of 07/14/2023) [facility]* Diagnosis Poliomyelitis osteopathy of multiple [...] for lipid disorders documented in this encounter [facility]* Diagnosis COVID-19- Primary documented in this encounter [facility]* Diagnosis Neck pain, chronic Cervicalgia documented in this encounter [facility]* Diagnosis Post-polio syndrome- Primary Late effects [...] whether esophagitis present documented in this encounter 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, multiple sites documented in this encounter [facility] note* Diagnosis Late effects of acute poliomyelitis- Primary Obstructive sleep apnea on CPAP Obstructive sleep apnea (adult) (pediatric) Gastroesophageal reflux disease, unspecified whether esophagitis present Neck pain, chronic Cervicalgia OAB (overactive bladder) Hypertonicity of bladder Rosacea Class 3 severe obesity with body mass index (BMI) of 40.0 to 44.9 in adult, unspecified obesity type, unspecified whether serious comorbidity present ([facility]) Glaucoma, unspecified glaucoma type, unspecified laterality Restless legs syndrome (RLS) documented in this encounter [facility] note* Diagnosis Osteopenia, unspecified location- Primary Obesity, Class III, BMI 40-49.9 (morbid obesity) ([facility]) Morbid obesity Vitamin D deficiency Unspecified vitamin D deficiency Hyperglycemia Other abnormal glucose Hyperlipidemia, mixed Mixed hyperlipidemia documented in [facility]* Diagnosis Hyperglycemia, unspecified- Primary Mixed hyperlipidemia Vitamin D deficiency, unspecified Other specified disorders of bone density and structure, unspecified site documented in this encounter [facility]* Diagnosis Unable to ambulate Difficulty in [...] left-sided sciatica- Primary [facility] this [facility]* Diagnosis Unable to ambulate Difficulty in [...] Obesity, Class III, BMI 40-49.9 (morbid obesity) ([facility]) Morbid obesity 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, 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 Hyperlipidemia, mixed Mixed hyperlipidemia Hyperglycemia Other abnormal glucose Vitamin D deficiency Unspecified vitamin D deficiency Essential hypertension Unspecified essential hypertension Primary osteoarthritis involving multiple joints Abnormality of gait Falling episodes Lack of coordination [facility]* Diagnosis Unable to ambulate Difficulty in [...] pain, unspecified laterality documented in this encounter [facility] note* Diagnosis Unable to ambulate [...] region and thigh documented in this encounter [facility]* Diagnosis Unable to ambulate Difficulty in [...] history of fall documented in this encounter [facility]* Diagnosis Unable to ambulate Difficulty in [...] left-sided sciatica- Primary [facility] [...] unspecified chronicity- Primary documented in this [facility]* Diagnosis Hyperglycemia, unspecified- Primary Mixed hyperlipidemia documented in [facility] [...] unspecified genitourinary condition documented in this encounter [facility] noteNo assessment information availableSaint Elizabeth Community Hospital Work Phone: Hospital Discharge instructionsAdditional Instructions Take MiraLAX consistently once or twice a day. Continue your senna.[facility] Work Phone: Hospital Discharge instructionsAmbulatory Orders* Physical Therapy Referral Location: None [facility] Work Phone: Reason for referral (narrative)* Diagnostic Procedure Only (Routine) - Pending Review Specialty Diagnoses / Procedures Referred By Lia t Referred To Contact XR IMAGING Diagnoses Acute pain of right knee Procedures XR KNEE LIMITED 2V AP/LAT RIGHT RADIOLOGIC EXAMINATION KNEE 1/2 VIEWS Sahra Guy MD [address] [place] [address] [place] [address] Xr Imaging Referral ID Status Reason Start Date Expiration Date Visits Requested Visits Authorized [id number] Pending Review Auto-Generat ed Referral 10/29/2021 11/28/2022 1 1 * Physical Therapy (Routine) - Authorized Specialty Diagnoses / Procedures Referred By Contac t Referred To Contact [facility] Diagnoses Poliomyelitis osteopathy of multiple sites (HCC) Acute pain of right knee Post-polio syndrome Procedures CONSULT TO PHYSICAL THERAPY PHYSICAL THERAPY EVALUATION HIGH COMPLEX 45 MINS Sahra Guy MD [address] [place] [address] [facility] [place] [place] [address] Referral ID Status Reason Start Date Expiration Date Visits Requested Visits Authorized [id number] Authorized PCP Requested Referral Auto-Generate d Referral 10/29/2021 10/29/2022 99 99 [facility] for referral (narrative)No reason for referral information availableQuinton Free-lance.[facility] Services Work Phone: Summary Purpose Family History No Family History Records FoundNo Family History Records FoundNo Family History Records FoundNo Family History Records FoundNo Family History Records FoundNo Family History Records FoundNo Family History Records Found Advance Directives No Advanced Directives Records FoundDocuments on File Type Date Recorded Patient Information Clerk Brokerage Expl anation Advance Directive(s) Advance Directive(s) 09/07/2018 8:30 AM Advance Directive(s) 08/02/2018 10:02 AM Advance Directive(s) 07/29/2018 11:50 AM Documents on File Type Date Recorded Patient Information Clerk Brokerage Expl anation Advance Directive(s) Advance Directive(s) 09/07/2018 8:30 AM Advance Directive(s) 08/02/2018 10:02 AM Advance Directive(s) 07/29/2018 11:50 AM Documents on File Type Date Recorded Patient Information Clerk Brokerage Expl anation Advance Directive(s) 08/02/2018 10:02 AM Documents on File Type Date Recorded Patient Information Clerk Brokerage Expl anation Advance Directive(s) 08/02/2018 10:02 AM Date Activated Date Inactivated Comments 12/12/2024 6:18 PM 12/19/2024 8:25 PM Question Answer Comments Full Code Order Discussed With: Patient Advance Directive Response Recorded Date/ Time Do you have a Healthcare Power of Dock Guard? 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) Procedures CONSULT TO NEUROMUSCULAR MEDIC OFFICE/OUTPATIENT [facility] 60-74 MINUTES Sahra Guy MD [address] [place] [address] Referral ID Status Reason Start Date Expiration Date Visits Requested Visits Authorized [id number] Authorized PCP Requested Referral 03/10/2023 03/09/2024 1 1 Specialty Diagnoses / Procedures Referred By Contac t Referred To Contact [facility] 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) Procedures CONSULT TO PHYSICAL THERAPY PHYSICAL THERAPY EVALUATION HIGH COMPLEX 45 MINS Sahra Guy MD [address] [place] [address] [facility] [place] [address] Referral ID Status Reason Start Date Expiration Date Visits Requested Visits Authorized [id number] Authorized PCP Requested Referral Auto-Generate d Referral 03/10/2023 03/09/2024 99 99 Specialty Diagnoses / Procedures Referred By Contac t Referred To Contact [facility] Diagnoses Post-polio syndrome Procedures CONSULT TO SPEECH THERAPY OFFICE/OUTPATIENT [facility] 60-74 MINUTES Ken Trent MD [address] [place] [address] [facility] [place] [address] Referral ID Status Reason Start Date Expiration Date Visits Requested Visits Authorized [id number] Authorized Auto-Generat ed Referral 04/03/2023 04/02/2024 99 99 Specialty Diagnoses / Procedures Referred By Contac t Referred To Contact [facility] Diagnoses Post-polio syndrome Procedures CONSULT TO PHYSICAL THERAPY PHYSICAL THERAPY EVALUATION HIGH COMPLEX 45 MINS Ken Trent MD [address] [place] [address] [facility] [place] [address] [place] [address] Referral ID Status Reason Start Date Expiration Date Visits Requested Visits Authorized [id number] Authorized PCP Requested Referral Auto-Generate d Referral [...] section and content) DATE CREATED AUTHOR 08/06/2018 [facility] DATE CREATED AUTHOR AUTHOR'S ORGANIZ ATION 09/21/2018 [facility] DATE CREATED AUTHOR AUTHOR'S ORGANIZ ATION 09/14/2024 [facility] DATE CREATED AUTHOR AUTHOR'S ORGANIZ ATION 12/28/2024 [facility] DATE CREATED AUTHOR AUTHOR'S ORGANIZ ATION 12/28/2024 [facility] DATE CREATED AUTHOR AUTHOR'S ORGANIZ ATION 03/24/2025 [facility] DATE CREATED AUTHOR AUTHOR'S ORGANIZ ATION 06/11/2025 [facility] Source Comments (unrecognize d section and content) In the event this informatio n is protected by the Federal Confidentiality of Alcohol and Drug Abuse Patient Records regulations: The Federal rules restrict any use of the information to criminally investigate or prosecute any alcohol or drug abuse patient.[facility] HospitalIn the event this information is protected by the Federal Confidentiality of Alcohol and Drug Abuse Patient Records regulations: The Federal rules restrict any use of the information to criminally investigate or prosecute any alcohol or drug abuse patient.[facility] HospitalIn the event this information is protected by the Federal Confidentiality of Alcohol and Drug Abuse Patient Records regulations: The Federal rules restrict any use of the information to criminally investigate or prosecute any alcohol or drug abuse patient.[facility] HospitalIn the event this information is protected by the Federal Confidentiality of Alcohol and Drug Abuse Patient Records regulations: The Federal rules restrict any use of the information to criminally investigate or prosecute any alcohol or drug abuse patient.[facility] HospitalIn the event this information is protected by the Federal Confidentiality of Alcohol and Drug Abuse Patient Records regulations: The Federal rules restrict any use of the information to criminally investigate or prosecute any alcohol or drug abuse patient.[facility] HospitalIn the event this information is protected by the Federal Confidentiality of Alcohol and Drug Abuse Patient Records regulations: The Federal rules restrict any use of the information to criminally investigate or prosecute any alcohol or drug abuse patient.[facility] HospitalIn the event this information is protected by the Federal Confidentiality of Alcohol and Drug Abuse Patient Records regulations: The Federal rules restrict any use of the information to criminally investigate or prosecute any alcohol or drug abuse patient.[facility] HospitalIn the event this information is protected by the Federal Confidentiality of Alcohol and Drug Abuse Patient Records regulations: The Federal rules restrict any use of the information to criminally investigate or prosecute any alcohol or drug abuse patient.[facility] HospitalIn the event this information is protected by the Federal Confidentiality of Alcohol and Drug Abuse Patient Records regulations: The Federal rules restrict any use of the information to criminally investigate or prosecute any alcohol or drug abuse patient.[facility] HospitalIn the event this information is protected by the Federal Confidentiality of Alcohol and Drug Abuse Patient Records regulations: The Federal rules restrict any use of the information to criminally investigate or prosecute any alcohol or drug abuse patient.[facility] HospitalIn the event this information is protected by the Federal Confidentiality of Alcohol and Drug Abuse Patient Records regulations: The Federal rules restrict any use of the information to criminally investigate or prosecute any alcohol or drug abuse patient.[facility] HospitalIn the event this information is protected by the Federal Confidentiality of Alcohol and Drug Abuse Patient Records regulations: The Federal rules restrict any use of the information to criminally investigate or prosecute any alcohol or drug abuse patient.[facility] HospitalIn the event this information is protected by the Federal Confidentiality of Alcohol and Drug Abuse Patient Records regulations: The Federal rules restrict any use of the information to criminally investigate or prosecute any alcohol or drug abuse patient.[facility] HospitalIn the event this information is protected by the Federal Confidentiality of Alcohol and Drug Abuse Patient Records regulations: The Federal rules restrict any use of the information to criminally investigate or prosecute any alcohol or drug abuse patient.[facility] HospitalIn the event this information is protected by the Federal Confidentiality of Alcohol and Drug Abuse Patient Records regulations: The Federal rules restrict any use of the information to criminally investigate or prosecute any alcohol or drug abuse patient.[facility] HospitalIn the event this information is protected by the Federal Confidentiality of Alcohol and Drug Abuse Patient Records regulations: The Federal rules restrict any use of the information to criminally investigate or prosecute any alcohol or drug abuse patient.[facility] HospitalIn the event this information is protected by the Federal Confidentiality of Alcohol and Drug Abuse Patient Records regulations: The Federal rules restrict any use of the information to criminally investigate or prosecute any alcohol or drug abuse patient.[facility] HospitalIn the event this information is protected by the Federal Confidentiality of Alcohol and Drug Abuse Patient Records regulations: The Federal rules restrict any use of the information to criminally investigate or prosecute any alcohol or drug abuse patient.[facility] HospitalIn the event this information is protected by the Federal Confidentiality of Alcohol and Drug Abuse Patient Records regulations: The Federal rules restrict any use of the information to criminally investigate or prosecute any alcohol or drug abuse patient.[facility] HospitalIn the event this information is protected by the Federal Confidentiality of Alcohol and Drug Abuse Patient Records regulations: The Federal rules restrict any use of the information to criminally investigate or prosecute any alcohol or drug abuse patient.[facility] HospitalIn the event this information is protected by the Federal Confidentiality of Alcohol and Drug Abuse Patient Records regulations: The Federal rules restrict any use of the information to criminally investigate or prosecute any alcohol or drug abuse patient.[facility] HospitalIn the event this information is protected by the Federal Confidentiality of Alcohol and Drug Abuse Patient Records regulations: The Federal rules restrict any use of the information to criminally investigate or prosecute any alcohol or drug abuse patient.[facility] HospitalIn the event this information is protected by the Federal Confidentiality of Alcohol and Drug Abuse Patient Records regulations: The Federal rules restrict any use of the information to criminally investigate or prosecute any alcohol or drug abuse patient.[facility] HospitalIn the event this information is protected by the Federal Confidentiality of Alcohol and Drug Abuse Patient Records regulations: The Federal rules restrict any use of the information to criminally investigate or prosecute any alcohol or drug abuse patient.[facility] HospitalIn the event this information is protected by the Federal Confidentiality of Alcohol and Drug Abuse Patient Records regulations: The Federal rules restrict any use of the information to criminally investigate or prosecute any alcohol or drug abuse patient.[facility] HospitalIn the event this information is protected by the Federal Confidentiality of Alcohol and Drug Abuse Patient Records regulations: The Federal rules restrict any use of the information to criminally investigate or prosecute any alcohol or drug abuse patient.[facility] HospitalIn the event this information is protected by the Federal Confidentiality of Alcohol and Drug Abuse Patient Records regulations: The Federal rules restrict any use of the information to criminally investigate or prosecute any alcohol or drug abuse patient.[facility] HospitalIn the event this information is protected by the Federal Confidentiality of Alcohol and Drug Abuse Patient Records regulations: The Federal rules restrict any use of the information to criminally investigate or prosecute any alcohol or drug abuse patient.[facility] HospitalIn the event this information is protected by the Federal Confidentiality of Alcohol and Drug Abuse Patient Records regulations: The Federal rules restrict any use of the information to criminally investigate or prosecute any alcohol or drug abuse patient.[facility] HospitalIn the event this information is protected by the Federal Confidentiality of Alcohol and Drug Abuse Patient Records regulations: The Federal rules restrict any use of the information to criminally investigate or prosecute any alcohol or drug abuse patient.[facility] HospitalIn the event this information is protected by the Federal Confidentiality of Alcohol and Drug Abuse Patient Records regulations: The Federal rules restrict any use of the information to criminally investigate or prosecute any alcohol or drug abuse patient.[facility] HospitalIn the event this information is protected by the Federal Confidentiality of Alcohol and Drug Abuse Patient Records regulations: The Federal rules restrict any use of the information to criminally investigate or prosecute any alcohol or drug abuse patient.[facility] HospitalIn the event this information is protected by the Federal Confidentiality of Alcohol and Drug Abuse Patient Records regulations: The Federal rules restrict any use of the information to criminally investigate or prosecute any alcohol or drug abuse patient.[facility] HospitalIn the event this information is protected by the Federal Confidentiality of Alcohol and Drug Abuse Patient Records regulations: The Federal rules restrict any use of the information to criminally investigate or prosecute any alcohol or drug abuse patient.[facility] HospitalIn the event this information is protected by the Federal Confidentiality of Alcohol and Drug Abuse Patient Records regulations: The Federal rules restrict any use of the information to criminally investigate or prosecute any alcohol or drug abuse patient.[facility] HospitalIn the event this information is protected by the Federal Confidentiality of Alcohol and Drug Abuse Patient Records regulations: The Federal rules restrict any use of the information to criminally investigate or prosecute any alcohol or drug abuse patient.[facility] HospitalIn the event this information is protected by the Federal Confidentiality of Alcohol and Drug Abuse Patient Records regulations: The Federal rules restrict any use of the information to criminally investigate or prosecute any alcohol or drug abuse patient.[facility] HospitalIn the event this information is protected by the Federal Confidentiality of Alcohol and Drug Abuse Patient Records regulations: The Federal rules restrict any use of the information to criminally investigate or prosecute any alcohol or drug abuse patient.[facility] HospitalIn the event this information is protected by the Federal Confidentiality of Alcohol and Drug Abuse Patient Records regulations: The Federal rules restrict any use of the information to criminally investigate or prosecute any alcohol or drug abuse patient.[facility] HospitalIn the event this information is protected by the Federal Confidentiality of Alcohol and Drug Abuse Patient Records regulations: The Federal rules restrict any use of the information to criminally investigate or prosecute any alcohol or drug abuse patient.[facility] HospitalIn the event this information is protected by the Federal Confidentiality of Alcohol and Drug Abuse Patient Records regulations: The Federal rules restrict any use of the information to criminally investigate or prosecute any alcohol or drug abuse patient.[facility] HospitalIn the event this information is protected by the Federal Confidentiality of Alcohol and Drug Abuse Patient Records regulations: The Federal rules restrict any use of the information to criminally investigate or prosecute any alcohol or drug abuse patient.[facility] HospitalIn the event this information is protected by the Federal Confidentiality of Alcohol and Drug Abuse Patient Records regulations: The Federal rules restrict any use of the information to criminally investigate or prosecute any alcohol or drug abuse patient.[facility] HospitalIn the event this information is protected by the Federal Confidentiality of Alcohol and Drug Abuse Patient Records regulations: The Federal rules restrict any use of the information to criminally investigate or prosecute any alcohol or drug abuse patient.[facility] HospitalIn the event this information is protected by the Federal Confidentiality of Alcohol and Drug Abuse Patient Records regulations: The Federal rules restrict any use of the information to criminally investigate or prosecute any alcohol or drug abuse patient.[facility] HospitalIn the event this information is protected by the Federal Confidentiality of Alcohol and Drug Abuse Patient Records regulations: The Federal rules restrict any use of the information to criminally investigate or prosecute any alcohol or drug abuse patient.[facility] HospitalIn the event this information is protected by the Federal Confidentiality of Alcohol and Drug Abuse Patient Records regulations: The Federal rules restrict any use of the information to criminally investigate or prosecute any alcohol or drug abuse patient.[facility] HospitalIn the event this information is protected by the Federal Confidentiality of Alcohol and Drug Abuse Patient Records regulations: The Federal rules restrict any use of the information to criminally investigate or prosecute any alcohol or drug abuse patient.[facility] HospitalIn the event this information is protected by the Federal Confidentiality of Alcohol and Drug Abuse Patient Records regulations: The Federal rules restrict any use of the information to criminally investigate or prosecute any alcohol or drug abuse patient.[facility] HospitalIn the event this information is protected by the Federal Confidentiality of Alcohol and Drug Abuse Patient Records regulations: The Federal rules restrict any use of the information to criminally investigate or prosecute any alcohol or drug abuse patient.[facility] HospitalIn the event this information is protected by the Federal Confidentiality of Alcohol and Drug Abuse Patient Records regulations: The Federal rules restrict any use of the information to criminally investigate or prosecute any alcohol or drug abuse patient.[facility] HospitalIn the event this information is protected by the Federal Confidentiality of Alcohol and Drug Abuse Patient Records regulations: The Federal rules restrict any use of the information to criminally investigate or prosecute any alcohol or drug abuse patient.[facility] HospitalIn the event this information is protected by the Federal Confidentiality of Alcohol and Drug Abuse Patient Records regulations: The Federal rules restrict any use of the information to criminally investigate or prosecute any alcohol or drug abuse patient.[facility] HospitalIn the event this information is protected by the Federal Confidentiality of Alcohol and Drug Abuse Patient Records regulations: The Federal rules restrict any use of the information to criminally investigate or prosecute any alcohol or drug abuse patient.[facility] HospitalIn the event this information is protected by the Federal Confidentiality of Alcohol and Drug Abuse Patient Records regulations: The Federal rules restrict any use of the information to criminally investigate or prosecute any alcohol or drug abuse patient.[facility] HospitalIn the event this information is protected by the Federal Confidentiality of Alcohol and Drug Abuse Patient Records regulations: The Federal rules restrict any use of the information to criminally investigate or prosecute any alcohol or drug abuse patient.[facility] HospitalIn the event this information is protected by the Federal Confidentiality of Alcohol and Drug Abuse Patient Records regulations: The Federal rules restrict any use of the information to criminally investigate or prosecute any alcohol or drug abuse patient.[facility] HospitalIn the event this information is protected by the Federal Confidentiality of Alcohol and Drug Abuse Patient Records regulations: The Federal rules restrict any use of the information to criminally investigate or prosecute any alcohol or drug abuse patient.[facility] HospitalIn the event this information is protected by the Federal Confidentiality of Alcohol and Drug Abuse Patient Records regulations: The Federal rules restrict any use of the information to criminally investigate or prosecute any alcohol or drug abuse patient.[facility] HospitalIn the event this information is protected by the Federal Confidentiality of Alcohol and Drug Abuse Patient Records regulations: The Federal rules restrict any use of the information to criminally investigate or prosecute any alcohol or drug abuse patient.[facility] HospitalIn the event this information is protected by the Federal Confidentiality of Alcohol and Drug Abuse Patient Records regulations: The Federal rules restrict any use of the information to criminally investigate or prosecute any alcohol or drug abuse patient.[facility] HospitalIn the event this information is protected by the Federal Confidentiality of Alcohol and Drug Abuse Patient Records regulations: The Federal rules restrict any use of the information to criminally investigate or prosecute any alcohol or drug abuse patient.[facility] HospitalIn the event this information is protected by the Federal Confidentiality of Alcohol and Drug Abuse Patient Records regulations: The Federal rules restrict any use of the information to criminally investigate or prosecute any alcohol or drug abuse patient.[facility] HospitalIn the event this information is protected by the Federal Confidentiality of Alcohol and Drug Abuse Patient Records regulations: The Federal rules restrict any use of the information to criminally investigate or prosecute any alcohol or drug abuse patient.[facility] HospitalIn the event this information is protected by the Federal Confidentiality of Alcohol and Drug Abuse Patient Records regulations: The Federal rules restrict any use of the information to criminally investigate or prosecute any alcohol or drug abuse patient.[facility] HospitalIn the event this information is protected by the Federal Confidentiality of Alcohol and Drug Abuse Patient Records regulations: The Federal rules restrict any use of the information to criminally investigate or prosecute any alcohol or drug abuse patient.[facility] HospitalIn the event this information is protected by the Federal Confidentiality of Alcohol and Drug Abuse Patient Records regulations: The Federal rules restrict any use of the information to criminally investigate or prosecute any alcohol or drug abuse patient.[facility] HospitalIn the event this information is protected by the Federal Confidentiality of Alcohol and Drug Abuse Patient Records regulations: The Federal rules restrict any use of the information to criminally investigate or prosecute any alcohol or drug abuse patient.[facility] HospitalIn the event this information is protected by the Federal Confidentiality of Alcohol and Drug Abuse Patient Records regulations: The Federal rules restrict any use of the information to criminally investigate or prosecute any alcohol or drug abuse patient.[facility] HospitalIn the event this information is protected by the Federal Confidentiality of Alcohol and Drug Abuse Patient Records regulations: The Federal rules restrict any use of the information to criminally investigate or prosecute any alcohol or drug abuse patient.[facility] HospitalIn the event this information is protected by the Federal Confidentiality of Alcohol and Drug Abuse Patient Records regulations: The Federal rules restrict any use of the information to criminally investigate or prosecute any alcohol or drug abuse patient.[facility] HospitalIn the event this information is protected by the Federal Confidentiality of Alcohol and Drug Abuse Patient Records regulations: The Federal rules restrict any use of the information to criminally investigate or prosecute any alcohol or drug abuse patient.[facility] HospitalIn the event this information is protected by the Federal Confidentiality of Alcohol and Drug Abuse Patient Records regulations: The Federal rules restrict any use of the information to criminally investigate or prosecute any alcohol or drug abuse patient.[facility] HospitalIn the event this information is protected by the Federal Confidentiality of Alcohol and Drug Abuse Patient Records regulations: The Federal rules restrict any use of the information to criminally investigate or prosecute any alcohol or drug abuse patient.[facility] HospitalIn the event this information is protected by the Federal Confidentiality of Alcohol and Drug Abuse Patient Records regulations: The Federal rules restrict any use of the information to criminally investigate or prosecute any alcohol or drug abuse patient.[facility] HospitalIn the event this information is protected by the Federal Confidentiality of Alcohol and Drug Abuse Patient Records regulations: The Federal rules restrict any use of the information to criminally investigate or prosecute any alcohol or drug abuse patient.[facility] HospitalIn the event this information is protected by the Federal Confidentiality of Alcohol and Drug Abuse Patient Records regulations: The Federal rules restrict any use of the information to criminally investigate or prosecute any alcohol or drug abuse patient.[facility] HospitalIn the event this information is protected by the Federal Confidentiality of Alcohol and Drug Abuse Patient Records regulations: The Federal rules restrict any use of the information to criminally investigate or prosecute any alcohol or drug abuse patient.[facility] HospitalIn the event this information is protected by the Federal Confidentiality of Alcohol and Drug Abuse Patient Records regulations: The Federal rules restrict any use of the information to criminally investigate or prosecute any alcohol or drug abuse patient.[facility] HospitalIn the event this information is protected by the Federal Confidentiality of Alcohol and Drug Abuse Patient Records regulations: The Federal rules restrict any use of the information to criminally investigate or prosecute any alcohol or drug abuse patient.[facility] HospitalIn the event this information is protected by the Federal Confidentiality of Alcohol and Drug Abuse Patient Records regulations: The Federal rules restrict any use of the information to criminally investigate or prosecute any alcohol or drug abuse patient.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) Procedures CONSULT TO NEUROMUSCULAR MEDIC OFFICE/OUTPATIENT [facility] 60-74 MINUTES Sahra Guy MD [address] [place] [address] [place] [address] Referral ID Status Reason Start Date Expiration Date V isits Requested Visits Authorized [id number] Closed PCP Requested Referral 03/10/2023 03/09/2024 1 1 Reason Comments Assorter - Other Reason Comments Speech Evaluation Speech Therapy Speech Discharge Specialty Diagnoses / Procedures Referred By Contac t Referred To Contact [facility] Diagnoses Post-polio syndrome Procedures CONSULT TO SPEECH THERAPY OFFICE/OUTPATIENT [facility] MDM 60-74 MINUTES Ken Trent MD [address] [place] [address] [facility] [address] [address] Referral ID Status Reason Start Date Expiration Date Visits Requested Visits Authorized [id number] Authorized Auto-Generat ed Referral 04/03/2023 04/02/2024 99 99 Reason Comments PT Eval PT Discharge Specialty Diagnoses / Procedures Referred By Lia t Referred To Contact [facility] 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) Procedures CONSULT TO PHYSICAL THERAPY PHYSICAL THERAPY EVALUATION [facility] 45 MINS Sahra Guy MD [address] [place] [address] [place] [address] [facility] [place] [address] Referral ID Status Reason Start Date Expiration Date Visits Requested Visits Authorized [id number] Authorized PCP Requested Referral Auto-Generate d Referral 03/10/2023 03/09/2024 99 99 Reason Comments Received Outside Medical Records [place] Residence I Move in Assessment 11/25/2023 Patient Update Reason Comments Forms Reason Onset Date Comments Refill Request 01/12/2024 Reason Onset Date Comments Refill Request 01/25/2024 Reason Onset Date Comments Refill Request 02/23/2024 Reason Comments Orders Labs fax to Rosa [email or web address] Reason Comments RSV vaccine Reason Comments Question Reason Comments Patient Question Reason Onset Date Comments Refill Request 06/20/2024 [facility] Reason Onset Date Comments Refill Request [...] Reason Comments PT Eval Reason Comments Orders [facility] Reason Comments Received Outside Medical Records [place] [facility] OT Evaluation performed no further treatment. 10/20/2024 [...] Care Teams (unrecognized sec tion and content) It Security Architect Relationship Specialty Start Date End Date Sahra Guy MD [address] [place] [address] [address] [place], [place] [phone] PCP - General Family Practice 02/20/16 It Security Architect Relationship Specialty Start Date End Date Sahra Guy MD [address] [place] [address] [address] [place], [place] [id number] PCP - General Family Practice 02/20/16 It Security Architect Relationship Specialty Start Date End Date Sahra Guy MD [address] [place] [address] [address] [place], [place] [id number] PCP - General Family Practice 02/20/16 It Security Architect Relationship Specialty Start Date End Date Sahra Guy MD [address] [place] [address] [address] [place], [place] [id number] PCP - General Family Practice 02/20/16 It Security Architect Relationship Specialty Start Date End Date Sahra Guy MD [address] [facility] [address] [place], [place] [id number] PCP - General Family Practice 02/20/16 It Security Architect Relationship Specialty Start Date End Date Sahra Guy MD [address] [facility] [place] [address] PCP - General Family Practice 02/20/16 It Security Architect Relationship Specialty Start Date End Date Sahra Guy MD [address] [facility] [place] [address] PCP - General Family Practice 02/20/16 It Security Architect Relationship Specialty Start Date End Date Sahra Guy MD [address] [facility] [place] [address] PCP - General Family Medicine 02/20/16 It Security Architect Relationship Specialty Start Date End Date Sahra Guy MD [address] [facility] [place] [address] PCP - General Family Medicine 02/20/16 It Security Architect Relationship Specialty Start Date End Date Sahra Guy MD [address] [facility] [place] [address] PCP - General Family Medicine 02/20/16 It Security Architect Relationship Specialty Start Date End Date Sahra Guy MD [address] [facility] [place] [address] PCP - General Family Medicine 02/20/16 It Security Architect Relationship Specialty Start Date End Date Sahra Guy MD [address] [facility] [place] [address] PCP - General Family Medicine 02/20/16 It Security Architect Relationship Specialty Start Date End Date Sahra Guy MD [address] [facility] [place] [address] PCP - General Family Medicine 02/20/16 It Security Architect Relationship Specialty Start Date End Date Sahra Guy MD [address] [facility] [place] [address] PCP - General Family Medicine 02/20/16 It Security Architect Relationship Specialty Start Date End Date Sahra Guy MD [address] [facility] [place] [address] PCP - General Family Medicine 02/20/16 It Security Architect Relationship Specialty Start Date End Date Sahra Guy MD [address] [facility] [place] [address] PCP - General Family Medicine 02/20/16 It Security Architect Relationship Specialty Start Date End Date Sahra Guy MD [address] [facility] [place] [address] PCP - General Family Medicine 02/20/16 It Security Architect Relationship Specialty Start Date End Date Sahra Guy MD [address] [facility] [place] [address] PCP - General Family Medicine 02/20/16 It Security Architect Relationship Specialty Start Date End Date Sahra Guy MD [address] [facility] [place] [address] PCP - General Family Medicine 02/20/16 It Security Architect Relationship Specialty Start Date End Date Sahra Guy MD [address] [facility] [place] [address] PCP - General Family Medicine 02/20/16 It Security Architect Relationship Specialty Start Date End Date Sahra Guy MD [address] [facility] [place] [address] PCP - General Family Medicine 02/20/16 It Security Architect Relationship Specialty Start Date End Date Sahra Guy MD [address] [facility] [address] [place], [place] 518191 PCP - General Family Medicine 02/20/16 It Security Architect Relationship Specialty Start Date End Date Sahra Guy MD [address] [facility] [address] [place], [place] 768271 PCP - General Family Medicine 02/20/16 It Security Architect Relationship Specialty Start Date End Date Sahra Guy MD [address] [facility] [address] [place], [place] 369591 PCP - General Family Medicine 02/20/16 It Security Architect Relationship Specialty Start Date End Date Sahra Guy MD [address] [facility] [address] [place], [place] 369371 PCP - General Family Medicine 02/20/16 It Security Architect Relationship Specialty Start Date End Date Sahra Guy MD [address] [facility] [address] [place], [place] 593821 PCP - General Family Medicine 02/20/16 It Security Architect Relationship Specialty Start Date End Date Sahra Guy MD [address] [facility] [place] [address] PCP - General Family Medicine 02/20/16 It Security Architect Relationship Specialty Start Date End Date Sahra Guy MD [address] [facility] [address] [place], [place] 980261 PCP - General Family Medicine 02/20/16 It Security Architect Relationship Specialty Start Date End Date Sahra Guy MD [address] [facility] [address] [place], [place] 416541 PCP - General Family Medicine 02/20/16 It Security Architect Relationship Specialty Start Date End Date Sahra Guy MD [address] [facility] [address] [place], [place] 735951 PCP - General Family Medicine 02/20/16 It Security Architect Relationship Specialty Start Date End Date Sahra Guy [address] [facility] [address] [place], [place] 09[address]81 PCP - General 03/14/17 It Security Architect Relationship Specialty Start Date End Date Sahra Guy MD [address] [facility] [address] [place], [place] 160641 PCP - General Family Medicine 02/20/16 It Security Architect Relationship Specialty Start Date End Date Sahra Guy MD [address] [facility] [place] [address] PCP - General Family Medicine 02/20/16 Leonid Leal APRN.ENGINEERING PRODUCTION LIAISON [address] [facility] [address] [place], [place] 596[address] Medicare Sales Executive Internal Medicine 07/10/24 It Security Architect Relationship Specialty Start Date End Date Sahra Guy MD [address] [facility] [address] [place], [place] 291692 [phone] PCP - General Family Medicine 02/20/16 Leonid Leal APRN.ENGINEERING PRODUCTION LIAISON [address] [facility] [address] [place], [place] 7787[address] [phone] Medicare Sales Executive Internal Medicine 07/10/24 It Security Architect Relationship Specialty Start Date End Date Sahra Guy MD [address] [facility] [address] [place], [place] 153551 [phone] PCP - General Family Medicine 02/20/16 Leonid Leal, BREAST TRIMMER.ENGINEERING PRODUCTION LIAISON [address] [facility] [address] [place], [place] 024641 Medicare Sales Executive Internal Medicine 07/10/24 It Security Architect Relationship Specialty Start Date End Date Sahra Guy MD [address] [facility] [address] [place], [place] 777240 [phone] PCP - General Family Medicine 02/20/16 Leonid Leal, BREAST TRIMMER.ENGINEERING PRODUCTION LIAISON [address] [facility] [place] [address] Medicare Sales Executive Internal Medicine 07/10/24 It Security Architect Relationship Specialty Start Date End Date Sahra Guy MD [address] [facility] [place] [address] PCP - General Family Medicine 02/20/16 Leonid Leal, BREAST TRIMMER.ENGINEERING PRODUCTION LIAISON [address] [facility] [address] [place], [place] 822536 [phone] Medicare Sales Executive Internal Medicine 07/10/24 It Security Architect Relationship Specialty Start Date End Date Sahra Guy MD [address] [facility] [place] [address] PCP - General Family Medicine 02/20/16 Leonid Leal, BREAST TRIMMER.ENGINEERING PRODUCTION LIAISON [address] [facility] [address] [place], [place] 384876 [phone] Medicare Sales Executive Internal Medicine 07/10/24 It Security Architect Relationship Specialty Start Date End Date Sahra Guy MD [address] [facility] [address] [place], [place] 108[address] [phone] PCP - General Family Medicine 02/20/16 Leonid Leal, BREAST TRIMMER.ENGINEERING PRODUCTION LIAISON [address] [facility] [place] [address] Medicare Sales Executive Internal Medicine 07/10/24 It Security Architect Relationship Specialty Start Date End Date Sahra Guy MD [address] [facility] [place] [address] PCP - General Family Medicine 02/20/16 Leonid Leal, BREAST TRIMMER.ENGINEERING PRODUCTION LIAISON [address] [facility] [place] [address] Medicare Sales Executive Internal Medicine 07/10/24 It Security Architect Relationship Specialty Start Date End Date Sahra Guy MD [address] [facility] [place] [address] PCP - General Family Medicine 02/20/16 Leonid Leal, BREAST TRIMMER.ENGINEERING PRODUCTION LIAISON [address] [facility] [place] [address] Medicare Sales Executive Internal Medicine 07/10/24 It Security Architect Relationship Specialty Start Date End Date Sahra Guy MD [address] [facility] [place] [address] PCP - General Family Medicine 02/20/16 Leonid Leal, BREAST TRIMMER.ENGINEERING PRODUCTION LIAISON [address] [facility] [place] [address] Medicare Sales Executive Internal Medicine 07/10/24 It Security Architect Relationship Specialty Start Date End Date Sahra Guy MD [address] [facility] [place] [address] PCP - General Family Medicine 02/20/16 Leonid Leal BREAST TRIMMER.ENGINEERING PRODUCTION LIAISON [address] [facility] [place] [address] Medicare Sales Executive Internal Medicine 07/10/24 It Security Architect Relationship Specialty Start Date End Date Sahra Guy MD [address] [facility] [place] [address] PCP - General Family Medicine 02/20/16 Leonid Leal, BREAST TRIMMER.ENGINEERING PRODUCTION LIAISON [address] [facility] [place] [address] Medicare Sales Executive Internal Medicine 07/10/24 It Security Architect Relationship Specialty Start Date End Date Sahra Guy MD [address] [facility] [place] [address] PCP - General Family Medicine 02/20/16 Leonid Leal, BREAST TRIMMER.ENGINEERING PRODUCTION LIAISON [address] [facility] [place] [address] Medicare Sales Executive Internal Medicine 07/10/24 It Security Architect Relationship Specialty Start Date End Date Sahra Guy MD [address] [facility] [place] [address] PCP - General Family Medicine 02/20/16 Leonid Leal, BREAST TRIMMER.ENGINEERING PRODUCTION LIAISON [address] [facility] [place] [address] Medicare Sales Executive Internal Medicine 07/10/24 It Security Architect Relationship Specialty Start Date End Date Sahra Guy MD [address] [facility] [place] [address] PCP - General Family Medicine 02/20/16 Leonid Leal, BREAST TRIMMER.ENGINEERING PRODUCTION LIAISON [address] [facility] [place] [address] Medicare Sales Executive Internal Medicine 07/10/24 It Security Architect Relationship Specialty Start Date End Date Sahra Guy MD [address] [facility] [place] [address] PCP - General Family Medicine 02/20/16 Leonid Leal BREAST TRIMMER.ENGINEERING PRODUCTION LIAISON [address] [facility] [place] [address] Medicare Sales Executive Internal Medicine 07/10/24 It Security Architect Relationship Specialty Start Date End Date Sahra Guy MD [address] [facility] [place] [address] PCP - General Family Medicine 02/20/16 Leonid Leal BREAST TRIMMER.ENGINEERING PRODUCTION LIAISON [address] [facility] [place] [address] Medicare Sales Executive Internal Medicine 07/10/24 It Security Architect Relationship Specialty Start Date End Date Sahra Guy MD [address] [facility] [address] [place], [place] 997831 PCP - General Family Medicine 02/20/16 Leonid Leal, BREAST TRIMMER.ENGINEERING PRODUCTION LIAISON [address] [facility] [place] [address] Medicare Sales Executive Internal Medicine 07/10/24 It Security Architect Relationship Specialty Start Date End Date Sahra Guy MD [address] [facility] [address] [place], [place] [address]181 PCP - General Family Medicine 02/20/16 Leonid Leal, BREAST TRIMMER.ENGINEERING PRODUCTION LIAISON [address] [facility] [place] [address] [facility] Internal Medicine 07/10/24 It Security Architect Relationship Specialty Start Date End Date Sahra Guy MD [address] [facility] [address] [place], [place] 904361 PCP - General Family Medicine 02/20/16 Leonid Leal, BREAST TRIMMER.ENGINEERING PRODUCTION LIAISON [address] [facility] [address] [place], [place] [address] [facility] Internal Medicine 07/10/24 It Security Architect Relationship Specialty Start Date End Date Sahra Guy MD [address] [facility] [address] [place], [place] 421041 PCP - General Family Medicine 02/20/16 Leonid Leal, POOJA.ENGINEERING PRODUCTION LIAISON [address] [facility] [address] [place], [place] 48[address] [facility] Internal Medicine 07/10/24 Team Status: Active Member [...] Member Role/Relationship Status Dates Roxanne Padilla NP AVID EDITORNehalC Attending Provider Active Start: December 22, 2024 [...] Member Role/Relationship Status Dates Roxanne Padilla NP, AVID EDITOR-C Attending Provider Active Start: December 28, 2024 [...] Member Role/Relationship Status Dates Roxanne Padilla NP, AVID EDITOR-C Attending Provider Active Start: January 09, 2025 [...] Member Role/Relationship Status Dates Roxanne Padilla NP AVID EDITOR-C Attending Provider Active Start: January 10, 2025 [...] Member Role/Relationship Status Dates Roxanne Padilla NP AVID EDITOR-C Attending Provider Active Start: January 19, 2025 [...] Member Role/Relationship Status Dates Roxanne Padilla NP AVID EDITOR-C Attending Provider Active Start: January 24, 2025 [...] Inactive Member Role/Relationship Status Dates Roxanne Padilla AVID EDITOR, AVID EDITOR-C Attending Provider Active Start: January 09, 2025 [...] 2025 End: March 07, 2025 Roxanne Padilla AVID EDITOR, AVID EDITOR-C Attending Provider Active Start: March 07, 2025 [...] 30, 2025 End: March 30, 2025 Dr. Chye Kumar MD Referring Provider Active Start: March [...] 2025 End: March 20, 2025 Roxanne Padilla AVID EDITOR, AVID EDITOR-C Attending Provider Active Start: March 20, 2025 [...] 2025 End: March 24, 2025 Roxanne Padilla AVID EDITOR, AVID EDITOR-C Attending Provider Active Start: March 24, 2025 [...] BE BASED ON THE PRIMARY CLINICAL RECORDS. [facility] [employer] [facility]. provides no warranty or guarantee of the accuracy or completeness of information in this document.
--- NOTE | 2025-07-08 22:45 | RAD_ITS ---
PROCEDURE: FOOT MIN 3 VIEWS 07/08/2025 REASON FOR EXAM: ? OSTEO TECHNIQUE: Procedure Code: RADFO Modality: DX Procedure: FOOT MIN 3 VIEWS Laterality: FINDINGS: No evidence of acute fracture or dislocation. Hallux valgus deformity. Diffuse osseous demineralization. Moderate degenerative changes throughout the foot. No significant osseous erosions. RAD/Foot min 3 Views IMPRESSION: As above. Reading Location: [id number]
[2025-07-09] VITALS: BP 132/66; PULSE 70; RESP 18; O2SAT 95
--- NOTE | 2025-07-09 00:13 | EX.ED.DYSGE1 ---
HPI History of Present Illness Chief Complaint: Wound Informant: patient Narrative Narrative: Patient is an 84-year-old female who states essentially 60 years ago she had surgery on her left great toe secondary to a dropped toe. She states since that time her great toe is always had an abnormal appearance. She reports that yesterday she felt fine and then today there was pain along the left great toe and she denied any recent trauma. She states she stays at a group home and when the nurses evaluated the toe they noticed areas that were red and swollen with potential discharge. Therefore with concern for infection she was sent in for evaluation. [facility] Medical History (Updated 07/10/25 @ 02:[address] Emiliano Grant, DO) History of fractured vertebra Polio Home Medications ?Medication ?Instructions ?Recorded ?Last Taken ?Type timolol maleate 0.5 % eye drops 1 drp DAILY 03/10/14 Unknown History acetaminophen 325 mg capsule 325 mg PO ONCE PRN 03/30/25 Unknown History amlodipine 5 mg tablet 5 mg PO BID 03/30/25 Unknown History atropine 1 % eye drops 1 drp ophthalmic (eye) BID 03/30/25 Unknown History bisacodyl 10 mg rectal suppository 10 mg PA QDAY PRN 03/30/25 Unknown History brimonidine 0.1 % eye drops 1 drp ophthalmic (eye) BID 03/30/25 Unknown History cyclobenzaprine 5 mg tablet 5 mg PO BID PRN 03/30/25 Unknown History dextran 70-hypromellose eye drops 1 drp ophthalmic (eye) BID 03/30/25 Unknown History lidocaine 4 % topical patch 1 patch topical QDAY PRN 03/30/25 Unknown History (AsperFlex (lidocaine)) magnesium hydroxide 400 mg/5 mL 5 ml PO QDAY PRN 03/30/25 Unknown History oral suspension (Milk of Magnesia) menthol 0.44 %-zinc oxide 20.6 % 1 applic topical 4-6XD PRN 03/30/25 Unknown History topical ointment (Calmoseptine) naloxone 0.4 mg/mL injection 0.4 mg subcut ONCE 03/30/25 Unknown History solution pantoprazole 20 mg tablet,delayed 20 mg PO QDAY 03/30/25 Unknown History release potassium chloride 20 mEq/15 mL 20 meq PO QDAY 03/30/25 Unknown History oral liquid clindamycin HCl 300 mg capsule 300 mg PO 4X/DAY 7 days #28 caps 07/09/25 Unknown Rx (Cleocin HCl) Allergy/AdvReac Type Severity Reaction Status Date / Time cephalexin monohydrate (From AdvReac Diarrhea Verified 07/08/25 22:10 Keflex) BLOOD THINNERS AdvReac Other Uncoded 03/30/25 13:35 Surgical History (Updated 03/30/25 @ 14:17 by Corrie Mead) History of kyphoplasty Social History Smoking Status: Unknown if ever smoked ROS ROS ED Constitutional Constitutional ED: Denies chills or fever(s) Cardiovascular Cardiovascular: Denies chest pain Respiratory/Chest Respiratory/Chest: Denies cough or dyspnea Gastrointestinal Gastrointestinal: Denies abdominal pain, diarrhea, nausea or vomiting Musculoskeletal Musculoskeletal: Reports back pain and other Details: Positive left great toe pain Positive back pain from previous vertebral fractures which is chronic in nature Integumentary Reports other Details: Positive redness and swelling left great toe Neurologic Neurologic: Denies headache(s) Hematologic/Lymphatic Hematologic/Lymphatic: Denies easy bleeding or easy bruising EXAM Physical Exam Const Vital Signs: 07/08/25 22:07 07/08/25 22:11 Temperature 98.5 F 98.5 F Temperature Source Oral Oral Pulse Rate 84 84 Respiratory Rate 16 16 Blood Pressure 133/95 H 133/95 H Blood Pressure Mean 107 107 Pulse Ox 98 100 Positive well nourished and well developed General Appearance ED: well developed; Negative for pallor HEENT HEENT Narrative: Normocephalic atraumatic Eyes PERRL and EOMs intact bilaterally General Eye ED: Negative for scleral icterus Neck supple Resp normal respiratory effort and clear to auscultation bilaterally Cardio regular rate and regular rhythm Extremity Extremity Narrative: There is a 1 x 2 cm area of erythema warmth and induration to the dorsal aspect of the left great toe at the MTP joint region. The abnormal coloration is strictly to the dorsal aspect and does not extend to the plantar aspect of the foot. There is no lymphangitic streaking or active discharge noted either. Remainder of the exam is normal Neuro oriented x3, CN's II-XII intact bilaterally and no sensory deficits noted Sensorium / Orientation: alert Psych mental status grossly normal Skin Skin Narrative: Soft tissue change to the left great toe as documented above General Skin Exam: Negative for jaundice or pallor MDM MDM MDM Narrative Medical decision making narrative: Patient arrived to the ER with stable vitals. She reported redness swelling and pain to the left great toe without trauma. She denies any history of immunosuppression and states there has been no documented or subjective fevers and chills. Her history and exam suggest that patient is developing a potential abscess versus gout flare. In order to assess for potential osteomyelitis or occult fracture despite lack of trauma and x-ray was ordered. X-ray revealed degenerative changes without signs of osteomyelitis or retained foreign body or fracture. Based on the physical exam showing induration and patient stating group home noted purulent discharge I did feel this was most likely an abscess with developing cellulitis. Therefore I performed an incision and drainage as documented below. Following the incision and drainage as the patient's vitals are stable and she is not showing signs of systemic infection/sepsis and the x-ray confirms there is no findings for osteomyelitis I do not feel need for further workup and she is otherwise safe for discharge back to the group home on antibiotics Patient had the left great toe cleaned with chlorhexidine. It was then anesthetized with 2% lidocaine and local fashion. A #11 blade was then used to make a 1 cm incision over top the area of induration. A moderate amount of purulent discharge was expressed. Loculations were dissected with a needle brantley. The wound was copiously irrigated with normal saline. Patient tolerated procedure well without complication. History & Record Review Discussion w/independent historian: Patient Radiography Diagnostic Testing: Clinical Impression(s) from Imaging Studies Foot X-Ray 07/08/25 22:45 IMPRESSION: As above. Reading Location: [address] Left foot x-ray as interpreted by the emergency medicine physician reveals no acute fracture or dislocation or moth-eaten appearance to suggest osteomyelitis Discharge Plan Triage Chief Complaint: Wound ED Provider: Emiliano Grant Dx/Rx/DC Orders Clinical Impression: Cellulitis and abscess of toe of left foot, GERD (gastroesophageal reflux disease), Post poliomyelitis syndrome Instructions: Cellulitis Dc, ED Abscess Incision And Drainage Prescriptions: New clindamycin HCl [Cleocin HCl] 300 mg capsule 300 mg PO 4X/DAY 7 Days Qty: 28 0RF No Action acetaminophen 325 mg capsule 325 mg PO ONCE PRN amlodipine 5 mg tablet 5 mg PO BID dextran 70-hypromellose Drops 1 drp ophthalmic (eye) BID lidocaine [AsperFlex (lidocaine)] 4 % adhesive patch,medicated 1 patch topical QDAY PRN atropine 1 % drops 1 drp ophthalmic (eye) BID bisacodyl 10 mg suppository 10 mg PA QDAY PRN brimonidine 0.1 % drops 1 drp ophthalmic (eye) BID menthol-zinc oxide [Calmoseptine] 0.44-20.6 % ointment 1 applic topical 4-6XD PRN cyclobenzaprine 5 mg tablet 5 mg PO BID PRN magnesium hydroxide [Milk of Magnesia] 400 mg/5 mL suspension 5 ml PO QDAY PRN naloxone 0.4 mg/mL solution 0.4 mg subcut ONCE pantoprazole 20 mg tablet,delayed release (DR/EC) 20 mg PO QDAY potassium chloride 20 mEq/15 mL liquid 20 meq PO QDAY timolol maleate 1 DROP drops 1 drp Left Eye DAILY Primary Care Provider: Chey Kumar Referrals: Chey Kumar MD [Primary Care Provider, Internal Medicine] Activity Restrictions/Additional Instructions: Your x-ray showed no sign of bone infection/osteomyelitis. Your history and exam is consistent with a small abscess and cellulitis of the left great toe. Now that the area has been incised and drained and you are on antibiotics the symptoms should improve over the next 2 to 3 days. Return to the ER should you have any further concerns or worsening of symptoms Print Language: Gambian Disposition Disposition: Home, Self Care Discharge Date/Time: 07/09/25 03:08
[2025-07-09 02:05] VITALS: RESP 16
== END 2025-07-09 03:08 ==
PROVIDERS: Emergency Provider Emergency Medicine; PCP Internal Medicine; Visit Provider Emergency Medicine
DX: L02.612 Cutaneous abscess of left foot (principal); G14 Postpolio syndrome; L03.116 Cellulitis of left lower limb; K21.9 Gastro-esophageal reflux disease without esophagitis; Z79.899 Other long term (current) drug therapy
CPT/HCPCS: 10060; 73630; 99284